=== PATIENT | female | born 1970 | race Caucasian/White ===

== ENCOUNTER 2018-06-29 18:07 | Emergency (ER) | payer OTHER ==
[~2018-06-29] VITALS: Ht 152.4 cm; Wt 112.5 kg
[~2018-06-29 18:07] MED LIST: ALBUTEROL SULF8.5 GM INH; BACTRIM DS TAB1 EACH PO; CEPHALEXIN500 MG PO; HYDROCHLOROTHIA25 MG PO; HYDROXYZINE PAM25 MG PO; LISINOPRIL10 MG PO; NAPROXEN500 MG PO; NORCO 5-325 TA1 EACH PO; OMEPRAZOLE20 MG PO; OXYCODONE HCL5 MG PO; PENICILLIN V P500 MG PO; PERPHENAZINE8 MG; PHENTERMINE HCL30 MG PO; PRILOSEC OTC20 MG PO; SUCRALFATE1 GM PO; TRAZODONE HCL50 MG PO; ZOFRAN4 MG PO
[2018-06-29] MEDS ORDERED: NORCO 5-325 TA1 EACH PO (20:21)
[2018-06-29] MEDS ORDERED: ULTRA-LIGHT RO1 EACH MISC (20:22)
[2018-06-29] MEDS ORDERED: WHEELCHAIR1 EACH MISC (20:23)
== END 2018-06-29 20:45 | disposition home or self-care (01) ==
LOC: ED 18:07
DX: T84.091A Other mechanical complication of internal left hip prosthesis, initial encounter (principal); J45.909 Unspecified asthma, uncomplicated; I10 Essential (primary) hypertension; F32.9 Major depressive disorder, single episode, unspecified; F41.9 Anxiety disorder, unspecified; F17.200 Nicotine dependence, unspecified, uncomplicated; Z88.8 Allergy status to other drugs, medicaments and biological substances; Z79.899 Other long term (current) drug therapy
CPT/HCPCS: 73502; 99283-25

== ENCOUNTER 2018-07-10 16:12 | Emergency (ER) | payer OTHER ==
[~2018-07-10] VITALS: Ht 152.4 cm; Wt 112.5 kg
[~2018-07-10 16:12] MED LIST changes: +ULTRA-LIGHT RO1 EACH MISC; +WHEELCHAIR1 EACH MISC
--- OUTSIDE RECORDS SUMMARY | 2018-07-10 16:14 | XMS ---
PreManage Notification: ASIYA APODACA Security Beater Dumper Events No recent Security Events currently on file CRITERIA MET - [facility] - 2 Visits in 30 Days CARE PROVIDERS There are no care providers on record at this time. Radha has no Care Guidelines for this patient. Rosalind VISIT COUNT (12 MO.) 3 [facility] Ambia H. TOTAL 3 NOTE: Visits indicate total known visits. ED/C VISIT TRACKING (12 MO.) 07/10/2018 16:13 [facility] [place] TYPE: Emergency COMPLAINT: - L HIP PAIN 06/29/2018 18:07 [facility] [place] TYPE: Emergency COMPLAINT: - LEFT HIP PAIN/NON INJURY DIAGNOSES: - Other mechanical complication of internal left hip prosthesis, initial encounter - Nicotine dependence, unspecified, uncomplicated - Essential (primary) hypertension - Other senior care (current) drug therapy - Allergy status to other drugs, medicaments and biological substances status - Unspecified asthma, uncomplicated - Major depressive disorder, single episode, unspecified - Anxiety disorder, unspecified 05/14/2018 19:56 [facility] [place] TYPE: Emergency COMPLAINT: - FALL/R ARM INJURY DIAGNOSES: - Allergy status to other drugs, medicaments and biological substances status - Essential (primary) hypertension - Unspecified sprain of right hip, initial encounter - Sprain of unspecified site of right knee, initial encounter - Unspecified asthma, uncomplicated - Other senior care (current) drug therapy - Anxiety disorder, unspecified - Nicotine dependence, unspecified, uncomplicated - Pain in right elbow - Major depressive disorder, single episode, unspecified - Nondisplaced fracture of head of right radius, initial encounter for closed fracture - Fall (on) (from) unspecified stairs and steps, initial encounter INPATIENT VISIT TRACKING (12 MO.) No inpatient visits to display in this time frame [email or web address]
== END 2018-07-10 18:50 | disposition home or self-care (01) ==
LOC: ED 16:12
DX: M25.552 Pain in left hip (principal); J45.909 Unspecified asthma, uncomplicated; I10 Essential (primary) hypertension; F32.9 Major depressive disorder, single episode, unspecified; F41.9 Anxiety disorder, unspecified; F17.200 Nicotine dependence, unspecified, uncomplicated; Z88.8 Allergy status to other drugs, medicaments and biological substances; Z79.899 Other long term (current) drug therapy; W18.30XA Fall on same level, unspecified, initial encounter
CPT/HCPCS: 73502; 99283

== ENCOUNTER 2018-12-31 13:54 | Emergency (ER) | payer OTHER ==
[~2018-12-31] VITALS: Ht 152.4 cm; Wt 112.5 kg
--- OUTSIDE RECORDS SUMMARY | ~2018-12-31 | XMS | Encounter Summary ---
Demographics + + + | Address | [address] | | | [place] [address] | + + + | Home Phone | | + + + | Preferred Language | Unknown | + + + | Marital Status | | + + + | Tenriism Affiliation | Unknown | + + + | Race | Unknown | + + + | Ethnic Group | Unknown | + + + Author + + + | Author | [facility] | | | and [place] | + + + | Organization | [facility] | | | and [place] | + + + | Address | Unknown | + + + | Phone | Unavailable | + + + Support + + + + + | Name | Relationship | Address | Phone | + + + + + | Fabienne Juarez | ECON | [place] | | | | | [address] | | + + + + + Care Team Providers + +------+ + | Care Blood Bank Booking Clerk Name | Role | Phone | + +------+ + | No, Physician | PCP | Unavailable | + +------+ + Encounter Details +--------+ + + + + | Date | Type | Department | Care Team | Description | +--------+ + + + + | 10/20/ | Orders Only | [facility] | Miah Monique | Pain due to internal | | 2018 | | MD Mayur CHÁVEZ | orthopedic | | | | EJ WOOD | [place] | prosthetic devices, | | | | [phone] | [place] [address] | implants and grafts, | | | | [phone] | [phone] | initial encounter | | | | | | (FORM[facility]LY [facility]) | +--------+ + + + + Social History + +-------+ +--------+------+ | Tobacco Use | Types | Packs/Day | Years | Date | | | | | Used | | + +-------+ +--------+------+ | Current Every Day | | 0.5 | | | | Smoker | | | | | + +-------+ [...] as of this encounter Plan of Treatment + +--------+ + + | Name | Priori | Associated Diagnoses | Order Schedule | | | ty | | | + +--------+ + + | Culture, Body Fluid Sterile | Routin | Pain due to | Expected: | | | e | internal orthopedic | 10/17/2018, Expires: | | | | prosthetic devices, | 10/18/2019 | | | | implants and grafts, | | | | | initial encounter | | | | | (HCC) | | + +--------+ + + | Body fluid cell count | Routin | Pain due to | Expected: | | | e | internal orthopedic | 10/17/2018, Expires: | | | | prosthetic devices, | 10/18/2019 | | | | implants and grafts, | | | | | initial encounter | | | | | (HCC) | | + +--------+ + + | Crystal Identification, Body | Routin | Pain due to | Expected: | | Fluid | e | internal orthopedic | 10/17/2018, Expires: | | | | prosthetic devices, | 10/18/2019 | | | | implants and grafts, | | | | | initial encounter | | | | | (HCC) | | + +--------+ + + documented as of this encounter Visit Diagnoses + + | Diagnosis | + + | Pain due to internal orthopedic prosthetic devices, implants and grafts, initial | | encounter (HCC) | + + documented in this encounter"
--- OUTSIDE RECORDS SUMMARY | ~2018-12-31 | XMS | Encounter Summary ---
Demographics + + + | Address | [address] | | | [place] [address] | + + + | Home Phone | | + + + | Preferred Language | Unknown | + + + | Marital Status | | + + + | Baptist Affiliation | Unknown | + + + | Race | Unknown | + + + | Ethnic Group | Unknown | + + + Author + + + | Author | [facility] | | | and [place] | + + + | Organization | [facility] | | | and [place] | + + + | Address | Unknown | + + + | Phone | Unavailable | + + + Support + + + + + | Name | Relationship | Address | Phone | + + + + + | Fabienne Juarez | ECON | [place] | | | | | [address] | | + + + + + Care Team Providers + +------+ + | Care Central Sterile Tech Name | Role | Phone | + +------+ + | Celestine Watters MD | PCP | | + +------+ + Reason for Visit + + + | Reason | Comments | + + + | Medication Refill | | + + + Encounter Details +--------+ + + + + | Date | Type | Department | Care Team | Description | +--------+ + + + + | 12/27/ | Telephone | [facility] | Miah Monique | Medication Refill | | 2018 | | RADHA [address] MD [address] | | | | | [place], [place] | [place] | | | | | [address] | [place] [address] | | | | | [phone] | [phone] | | | | | | | [...] | | | + +---+---+---+ + + +---------+ + | Alcohol Use | Drinks/We | oz/Week | Comments | | | ek | | | + + +---------+ + | Not Currently | | | | + + +---------+ [...] + + documented as of this encounter Functional Status + + + + | Functional Status | Response | Date of Assessment | + + + + | Are you deaf or do you have serious | No | 11/09/2018 | | difficulty hearing? | | | + + + + | Are you blind or do you have serious | No | 11/09/2018 | | difficulty seeing, even when wearing | | | | glasses? | | | + + + + | Do you have serious difficulty walking or | No | 11/09/2018 | | climbing stairs? (5 years old or older) | | | + + + + | Do you have difficulty dressing or bathing? | No | 11/09/2018 | | (5 years old or older) | | | + + + + | Because of a physical, mental, or emotional | No | 11/09/2018 | | condition, do you have difficulty doing | | | | errands alone such as visiting a doctor's | | | | office or shopping? [15 years old or | | | | older)] | | | + + + + + + + + | Cognitive Status | Response | Date of Assessment | + + + + | Because of a physical, mental, or emotional | No | 11/09/2018 | | condition, do you have serious difficulty | | | | concentrating, remembering, or making | | | | decisions? (5 years old or older) | | | + + + + documented as of this encounter Plan of Treatment Not on filedocumented as of this encounter Visit Diagnoses Not on filedocumented in this encounter"
--- OUTSIDE RECORDS SUMMARY | ~2018-12-31 | XMS | Encounter Summary ---
Demographics + + + | Address | [address] | | | [place] [address] | + + + | Home Phone | | + + + | Preferred Language | Unknown | + + + | Marital Status | | + + + | Rastafari Affiliation | Unknown | + + + | Race | Unknown | + + + | Ethnic Group | Unknown | + + + Author + + + | Author | [facility] | | | and [place] | + + + | Organization | [facility] | | | and [place] | + + + | Address | Unknown | + + + | Phone | Unavailable | + + + Support + + + + + | Name | Relationship | Address | Phone | + + + + + | Fabienne Juarez | ECON | [place] | | | | | [address] | | + + + + + Care Team Providers + +------+ + | Care Taxation Agent Name | Role | Phone | + +------+ + | No, Physician | PCP | Unavailable | + +------+ + Encounter Details +--------+ + + + + | Date | Type | Department | Care Team | Description | +--------+ + + + + | 10/18/ | Orders Only | [facility] | Miah Monique | | | 2018 | | [facility] | MD Fab [address] | | | | | [address]PER[address] | [place] | | | | | [address] | [place] [address] | | | | | [place], [place] | [phone] | | | | | [address] | | | | | | [phone] | | | +--------+ + + + [...] | + +--------+ + + + | CELL COUNT, BODY | Routin | 10/18/2018 | | Results for this | | FLUID | e | 15:19 PDT | | procedure are in the | | | | | | results section. | + +--------+ + + + | CRYSTAL | Routin | 10/18/2018 | | Results for this | | IDENTIFICATION, BODY | e | 15:19 PDT | | procedure are in the | | FLUID | | | | results section. | + +--------+ + + + | CULTURE, BODY FLUID, | Routin | 10/18/2018 | | Results for this | | STERILE, SMEAR, | e | 15:19 PDT | | procedure are in the | | WITH ANAEROBES | | | | results section. | + +--------+ + + + documented in this encounter Results Crystal Identification, Body Fluid (10/18/2018 15:19 PDT) + + | Specimen | + + | | + + + + + | Narrative | Performed At | + + + | FLUID CRYSTALS NO CRYSTALS | EXTERNAL LAB | | SEEN Testing performed at [facility];[address] [place] [address];[place] [address] | | + + + + +---------+ + + | Performing | Address | City/State/Zipcode | Phone Number | | Organization | | | | + +---------+ + + | EXTERNAL LAB | | | | + +---------+ + + Culture, Body Fluid, Sterile, Smear, with Anaerobes (10/18/2018 15:19 PDT) + + | Specimen | + + | | + + + + + | Narrative | Performed At | + + + | Specimen Description SYNOVIAL FLUID | EXTERNAL LAB | | GRAM STAIN NO CELLS OR | | | ORGANISMS SEEN | | | CULTURE NO | | | GROWTH 4 DAYS | | + + + + +---------+ + + | Performing | Address | City/State/Zipcode | Phone Number | | Organization | | | | + +---------+ + + | EXTERNAL LAB | | | | + +---------+ + + Cell Count, Body Fluid (10/18/2018 15:19 PDT) + + | Specimen | + + | | + + + + + | Narrative | Performed At | + + + | FLUID TYPE SYNOVIAL | EXTERNAL LAB | | FLUID | | | [facility] | | | | | | APPEARANCE | | | CLOUDY | | | RBC'S [address] | | | TOTAL NUCLEATED | | | CELLS 29 | | | NEUTROPHILS 83 | | | | | | LYMPHOCYTES 14 | | | | | | EOSINOPHILS 3 | | | CELLS | | | COUNTED 100 | | | Testing performed at [facility];[address] [place] [address];[place] [address] | | + + + + +---------+ + + | Performing | Address | City/State/Zipcode | Phone Number | | Organization | | | | + +---------+ + + | EXTERNAL LAB | | | | + +---------+ + + documented in this encounter Visit Diagnoses Not on filedocumented in this encounter"
--- OUTSIDE RECORDS SUMMARY | ~2018-12-31 | XMS | Encounter Summary ---
Demographics + + + | Address | [address] | | | [place] [address] | + + + | Home Phone | | + + + | Preferred Language | Unknown | + + + | Marital Status | | + + + | Jainism Affiliation | Unknown | + + + | Race | Unknown | + + + | Ethnic Group | Unknown | + + + Author + + + | Author | [facility] (Historical as of | | | 10-21-18) | + + + | Organization | [facility] (Historical as of | | | 10-21-18) | + + + | Address | Unknown | + + + | Phone | Unavailable | + + + Support + + + + + | Name | Relationship | Address | Phone | + + + + + | Fabienne Juarez | ECON | [place] | | | | | [address] | | + + + + + Care Team Providers + +------+ + | Care Barrel Rifler Broach Name | Role | Phone | + +------+ + | None, Per Pt | PCP | [id number] | + +------+ + Reason for Referral Physical Medicine (Routine) + + + + + + + | Status | Reason | Specialty | Diagnoses / | Referred By | Referred To | | | | | Procedures | Contact | Contact | + + + + + + + | Authorized | Specialty | Physical | Diagnoses | Moreno, | Therapy, | | | Services | Therapy | Pain in | [place], | [place] | | | Required | | prosthetic | PA-C [address] | | | | | joint, | [address] | Physical | | | | | initial | [place] | [address] | | | | | encounter | [place], [place] | [address] | | | | | ([facility]) | [address] | [place], | | | | | | Phone: | [place] [address] | | | | | | [phone] | Phone: | | | | | | Fax: | [phone] | | | | | | [phone] | Fax: | | | | | | | [phone] | + + + + + + + Reason for Visit + + + | Reason | Comments | + + + | Hip Pain | left hip | + + + Surgical (Routine) + +--------+ + + + + | Status | Reason | Specialty | Diagnoses / | Referred By | Referred To | | | | | Procedures | Contact | Contact | + +--------+ + + + + | Authorized | | Orthopedic | Diagnoses | Self, | [facility] | | | | Surgery | revision | Referred | [place] [address] | | | | | left TKA @ | Phone: | Alexander Bell | | | | | [facility] | [phone] | EJ Jarquin | | | | | 10/19/2018 | Fax: | [phone] | | | | | Procedures | [phone] | Phone: | | | | | ORTHO PRE OP | | [phone] | | | | | | | Fax: | | | | | | | [phone] | + +--------+ + + + + Encounter Details +--------+---------+ + + + | Date | Type | Department | Care Team | Description | +--------+---------+ + + + | 10/04/ | Office | [facility] | Emilio Moreno, | Pain in prosthetic | | 2019 | Visit | [facility]THO [facility] | PA-C [address] | joint, initial | | | | [facility]IC[facility] | [place] [facility], | encounter (HCC) | | | | [address] | [place] [address] | (Primary Dx) | | | | [place] | [phone] | | | | | [address] | | | | | | [phone] | | | +--------+---------+ + + + Social History + +-------+ +--------+------+ | Tobacco Use | Types | Packs/Day | Years | Date | | | | | Used | | + +-------+ +--------+------+ | Former Smoker | | | | | + [...] on file | | + + + as of this encounter Last Filed Vital Signs + + + + | Vital Sign | Reading | Time Taken | + + + + | Blood Pressure | 112/82 | 10/04/2018 9:13 AM PDT | + + + + | Pulse | 72 | 10/04/2018 9:13 AM PDT | + + + + | Temperature | - | - | + + + + | Respiratory Rate | - | - | + + + + | Oxygen Saturation | 98% | 10/04/2018 9:13 AM PDT | + + + + | Inhaled Oxygen | - | - | | Concentration | | | + + + + | Weight | 120 kg (264 lb 9.6 | 10/04/2018 9:13 AM PDT | | | oz) | | + + + + | Height | 154.9 cm (5' 1") | 10/04/2018 9:13 AM PDT | + + + + | Body Mass Index | 50 | 10/04/2018 9:13 AM PDT | + + + + in this encounter Progress Notes Emilio Moreno PA-C - 10/04/2018 9:30 AM PDTFormatting of this note may be different from the original. 10/04/2018 HPI The patient presents for a pre-operative evaluation prior to a left total hip arthroplasty revision. She continues to have disabling left hip pain on a daily basis that has been refr actory to conservative measures. Vital Signs Vitals: 10/04/18 0913 BP: 112/82 Pulse: 72 SpO2: 98% History reviewed. No pertinent past medical history. Past Surgical History Procedure Laterality Date CHOLECYSTECTOMY HIP ARTHROPLASTY Right 2012 TOTAL HIP ARTHROPLASTY Left 2014 Family History Problem Relation Age of Onset Stroke Mother Heart disease Father Cancer Father Social History Occupational History Not on file. Social History Main Topics Smoking status: Former Smoker Smokeless tobacco: Never Used Alcohol use No Drug use: No Sexual activity: No Current Medications Current Outpatient Prescriptions: acetaminophen (TYLENOL) 500 MG tablet, Take 2 tablets by mouth every 8 (eight) hours f or 30 days., Disp: 180 tablet, Rfl: 0 aspirin 325 MG tablet, Take 1 tablet by mouth daily with breakfast for 42 days., Disp: 42 tablet, Rfl: 0 citalopram (CELEXA) 40 MG tablet, Take 40 mg by mouth daily., Disp: , Rfl: cloNIDine (CATAPRES) 0.1 MG tablet, Take 0.1 mg by mouth 2 (two) times daily., Disp: , Rfl: docusate sodium (COLACE) 250 MG capsule, Take 1 capsule by mouth 2 (two) times daily f or 30 days., Disp: 60 capsule, Rfl: 0 HYDROcodone-acetaminophen (NORCO) 5-325 MG per tablet, Take 1 tablet by mouth every 12 (twelve) hours as needed for Pain., Disp: 30 tablet, Rfl: 0 hydrOXYzine (ATARAX) 10 MG tablet, Take 10 mg by mouth 3 (three) times daily as needed for Itching., Disp: , Rfl: naproxen (NAPROSYN) 500 MG tablet, Take 500 mg by mouth 2 (two) times daily with meals ., Disp: , Rfl: oxyCODONE (ROXICODONE) 5 MG immediate release tablet, Take 1 tablet by mouth every 4 ( four) hours as needed for Pain for up to 14 days., Disp: 90 tablet, Rfl: 0 traMADol (ULTRAM) 50 MG tablet, Take 1 tablet by mouth every 6 (six) hours as needed f or Pain for up to 14 days., Disp: 90 tablet, Rfl: 0 UNABLE TO FIND, Disabled parking placard, Disp: 1 each, Rfl: 0 Allergies No Known Allergies Active comorbid conditions include: - morbid (BMI 40+) obesity - a smoker - anxiety Patient is negative for: GERD, hepatitis, cirrhosis, diabetes, hypothyroidism, bleeding disorder Review of Systems Constitutional: Negative for chills and fever. HENT: Negative for ear pain and hearing loss. Eyes: Negative for blurred vision and double vision. Respiratory: Negative for cough and wheezing. Cardiovascular: Negative for chest pain and palpitations. Gastrointestinal: Negative for heartburn, nausea and vomiting. Genitourinary: Negative. Musculoskeletal: Positive for joint pain. Negative for back pain and neck pain. Skin: Negative for itching and rash. Neurological: Negative for dizziness and headaches. Endo/Heme/Allergies: Does not bruise/bleed easily. Psychiatric/Behavioral: The patient is nervous/anxious. The patient does not have insomnia. Physical Exam Left Hip Exam Tenderness The patient is experiencing tenderness in the lateral. Muscle Strength Normal left hip strength Comments: Mechanical clunking and squeaking is noted with range of motion. Leg lengths are symmetric. Well-healed surgical incisions which include one primary incision and one distal-portal i ncision consistent with a superpath procedure. Physical Exam Constitutional: She is oriented to person, place, and time. She appears well-developed and well-nourished. HENT: Head: Normocephalic and atraumatic. Eyes: Pupils are equal, round, and reactive to light. EOM are normal. Pulmonary/Chest: Effort normal. Neurological: She is alert and oriented to person, place, and time. Skin: Skin is warm and dry. Psychiatric: She has a normal mood and affect. Her behavior is normal. Thought content herbert alPrince Assessment and Plan ICD-10-CM 1. Pain in prosthetic joint, initial encounter ([facility]) T84.84XA Ambulatory referral to Physic al Therapy, Eval and Treat plan to proceed with a left total hip arthroplasty revision The risks and benefits of hip arthroplasty and expected recovery period and outcomes after hip arthroplasty were discussed with the patient. The risk discussed included infection, dis location, damage to nerves and blood vessels, bleeding, continued pain, fracture, early loos ening of components, polyethylene wear, osteolysis, potential need for revision surgery, DVT , pulmonary embolism, stroke, myocardial infarction and . Alternatives to surgery were also discussed with the patient. All of the patients questions were answered and informed co nsent was obtained. Pre-operative Checklist Visited primary care in last 12 months?:NO Under the care of a radiologic technologist chief?:No Diabetes Optimization?:N/A No results found for: HGBA1C, LABGLYC History of MRSA/MSSA infection?:No Metal sensitivity or allergy?:No Intolerance to certain specific opiate?:No DVT/PE Risk Stratification Personal history of DVT/PE?:No Cancer treatment in the last 5 years?:No Hormone replacement therapy?:No Tolerate aspirin?:YES Current Anticoagulation?:No Chemical prophylaxis plan:ASA Anticipated Discharge Plan Discharge to rehab facility, [facility] physical therapy Armin Return for 2 and 6 weeks after surgery. There are no Patient Instructions on file for this visit. Colt Reyna this encounter Plan of Treatment + +--------+ + + | Name | Priori | Associated Diagnoses | Order Schedule | | | ty | | | + +--------+ + + | Ambulatory referral to Physical | Routin | Pain in prosthetic | Ordered: 10/04/2018 | | Therapy, Eval and Treat | e | joint, initial | | | | | encounter (HCC) | | + +--------+ + + as of this encounter Visit Diagnoses + + | Diagnosis | + + | Pain in prosthetic joint, initial encounter (HCC) - Primary | + +
--- OUTSIDE RECORDS SUMMARY | ~2018-12-31 | XMS | Encounter Summary ---
Demographics + + + | Address | [address] | | | [place] [address] | + + + | Home Phone | | + + + | Preferred Language | Unknown | + + + | Marital Status | | + + + | Cheondoism Affiliation | Unknown | + + + | Race | Unknown | + + + | Ethnic Group | Unknown | + + + Author + + + | Author | [facility] | | | and [place] | + + + | Organization | [facility] | | | and [place] | + + + | Address | Unknown | + + + | Phone | Unavailable | + + + Support + + + + + | Name | Relationship | Address | Phone | + + + + + | Fabienne Juarez | ECON | [place] | | | | | [address] | | + + + + + Care Team Providers + +------+ + | Care Production Bow Maker Name | Role | Phone | + +------+ + | Celestine Watters MD | PCP | | + +------+ + Reason for Visit + + + | Reason | Comments | + + + | Medication Refill | | + + + Encounter Details +--------+--------+ + + + | Date | Type | Department | Care Team | Description | +--------+--------+ + + + | 11/27/ | Refill | [facility] | Miah Monique | Medication Refill | | 2018 | | [address] | MD [address] | | | | | [place], [place] | [address] | | | | | [address] | [place] [address] | | | | | [phone] | [phone] | | | | | | | | +--------+--------+ + + + Social History + +-------+ [...] filedocumented as of this encounter Visit Diagnoses + + | Diagnosis | + + | Aftercare following hip joint replacement surgery, unspecified laterality - Primary | + + documented in this encounter"
--- OUTSIDE RECORDS SUMMARY | ~2018-12-31 | XMS | Encounter Summary ---
Demographics + + + | Address | [address] | | | [place] [address] | + + + | Home Phone | | + + + | Preferred Language | Unknown | + + + | Marital Status | | + + + | Jainism Affiliation | Unknown | + + + | Race | Unknown | + + + | Ethnic Group | Unknown | + + + Author + + + | Author | [facility] | | | and [place] | + + + | Organization | [facility] | | | and [place] | + + + | Address | Unknown | + + + | Phone | Unavailable | + + + Support + + + + + | Name | Relationship | Address | Phone | + + + + + | Fabienne Juarez | ECON | [place] | | | | | [address] | | + + + + + Care Team Providers + +------+ + | Care Pressure Testing Technician Name | Role | Phone | + +------+ + | Celestine Watters MD | PCP | | + +------+ + Reason for Visit + + + | Reason | Comments | + + + | Post-op Exam | left hip | + + + Evaluate & Treat (Routine) +--------+--------+ + + + + | Status | Reason | Specialty | Diagnoses / | Referred By | Referred To | | | | | Procedures | Contact | Contact | +--------+--------+ + + + + | Closed | | | Diagnoses | Tiffanie, | [facility] | | | | | Left Hip | Shola Sanchez MD | [address] | | | | | Nondisplaced | [address] | [address] | | | | | Fracture of | ([address] | [place], [place] | | | | | Artificial | [address]) | [address] | | | | | Hip Joint | [place], | Phone: | | | | | | [place] [address] | [phone] | | | | | | Phone: | Fax: | | | | | | [phone] | [phone] | | | | | | Fax: | | | | | | | [phone] | | +--------+--------+ + + + + Encounter Details +--------+---------+ + + + | Date | Type | Department | Care Team | Description | +--------+---------+ + + + | 12/11/ | Office | [facility] | Miah Monique | Status post left hip | | 2019 | Visit | [address] [address] | MD [address] | replacement | | | | [place], [place] | [address] | (Primary Dx) | | | | [address] | [place] [address] | | | | | [phone] | [phone] | | | | | | | | +--------+---------+ + + + [...] + + documented as of this encounter Last Filed Vital Signs + + + + | Vital Sign | Reading | Time Taken | + + + + | Blood Pressure | 116/76 | 12/11/20187 PDT | + + + + | Pulse | 93 | 12/11/20187 PDT | + + + + | Temperature | - | - | + + + + | Respiratory Rate | - | - | + + + + | Oxygen Saturation | 95% | 12/11/20181546 PDT | + + + + | Inhaled Oxygen | - | - | | Concentration | | | + + + + | Weight | 119.2 kg (262 lb | 12/11/20181546 PDT | | | 12.8 oz) | | + + + + | Height | 152.4 cm (5') | 12/11/20181546 PDT | + + + + | Body Mass Index | 51.32 | 12/11/20181546 PDT | + + + + documented in this encounter Functional Status + + + [...] + + documented as of this encounter Progress Notes Miah Monique MD - 12/11/2018 1515 PDT 12/11/2018 HPI HPI A 48-year-old female who is about 6 weeks out from a 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 The patient overall has been doing well. She has been taking ext ended- release Morphine twice a day and Oxycodone every 4 hours 5 mg tablets. She continues to have pain mostly posteriorly. She denies groin pain or lateral pain. She denies issues wi th drainage from the incision. She reports that she has been compliant with her weight beari ng precautions and her hip precautions. She has now begun physical therapy given these preca utions. Vital Signs Vitals: 12/11/18 1547 BP: 116/76 Pulse: 93 PainSc: 8 PainLoc: Hip Physical Exam Ortho Exam Left Hip Exam Well healed surgical incision, left hip. Range of Motion: No pain with range of motion of the hip. She has tenderness posteriorly ne ar the apex of the incision but no induration, erythema, or drainage or swelling. 07/09 IMAGING: No results found for this or any previous visit (from the past 72 hour(s)). Assessment and Plan ICD-10-CM ICD-9-CM 1. Status post left hip replacement Z96.642 V43.64 XR Hip Left 2-3 Views Overall doing well and as expected with a acetabular component revision. She may now weight bear as tolerated. She can begin physical therapy I discussed at length with her, her narco tic usage, which I think is probably excessive at this point. I spoke to her about a plan t o get off the medications within 6 weeks, so I gave her 5 mg Oxycodones, and I gave her 60 t ablets which she needs to make work for at least 2 weeks and she needs to be using those in decreasing the amounts, so I instructed her when it would be appropriate times for her to us e her pain medication. If after these 2 weeks, she needs an additional refill, I have agreed to provide her with another 40 mg tablets which she needs to make last for the additional 4 weeks, so that overall the maximum dose of narcotics I will give her is 5 mg Oxycodones 100 tablets which will include 60 tablets on prescription today and potentially 40 more tablets if she needs it after the 2 weeks. She commits to me that she will be off the narcotics wit hin 6 weeks and I told her that if she is not able to do so, I would have to refer her to pa in management for continued narcotic use. I would like to see her back in about 3 months wi th the repeat x-rays. Documented by Wendy. Return in about 3 months (around 03/13/2019).Electronically signed by MD moshe Vickers 12/12/2018 15:54 PDTdocumented in this encounter Plan of Treatment Not on filedocumented as of this encounter Results XR Hip Left 2-3 Views (12/11/2018 15:59 PDT) + + | Specimen | + + | | + + + + + | Narrative | Performed At | + + + | Radiographs of | [facility] | | the left hip show interval revision of the acetabular component with | | | no evidence of acute loosening or fracture or dislocation. | | | Electronically signed by: Miah Monique MD 12/19/2018 14:24 | | | | | + + + + +---------+ + + | Performing | Address | City/State/Zipcode | Phone Number | | Organization | | | | + +---------+ + + | [facility] | | | | + +---------+ + + documented in this encounter Visit Diagnoses + + | Diagnosis | + + | Status post left hip replacement - Primary Hip joint replacement by other means | + + documented in this encounter"
--- OUTSIDE RECORDS SUMMARY | ~2018-12-31 | XMS | Encounter Summary ---
Demographics + + + | Address | [address] | | | [place] [address] | + + + | Home Phone | | + + + | Preferred Language | Unknown | + + + | Marital Status | | + + + | Church Affiliation | Unknown | + + + | Race | Unknown | + + + | Ethnic Group | Unknown | + + + Author + + + | Author | [facility] | | | and [place] | + + + | Organization | [facility] | | | and [place] | + + + | Address | Unknown | + + + | Phone | Unavailable | + + + Support + + + + + | Name | Relationship | Address | Phone | + + + + + | Fabienne Juarez | ECON | [place] | | | | | [address] | | + + + + + Care Team Providers + +------+ + | Care Machine Sizer Name | Role | Phone | + +------+ + | Celestine Watters MD | PCP | | + +------+ + Encounter Details +--------+ + + + + | Date | Type | Department | Care Team | Description | +--------+ + + + + | 10/18/ | Orders Only | [facility] | Miah Monique | | | 2019 | | MD [address] | | | | | [address] | [address] | | | | | [address] | [place] [address] | | | | | [phone] | | | | | | | [...] | + +--------+ + + + | FL ASPIRATION | Routin | 10/18/2018 | | Results for this | | INJECTION MAJOR | e | 14:45 PDT | | procedure are in the | | JOINT LEFT | | | | results section. | + +--------+ + + + documented in this encounter Results FL Asp and/or Inj Major Joint Left (10/18/2018 14:45 PDT) + + | Specimen | + + | | + + + + + | Impressions | Performed At | + + + | Technically successful placement of needles into the left hip joint. | | | No fluid was aspirated initially. Therefore, sterile saline was | | | placed into the hip joint, with aspiration performed. Fluid sent | | | to pathology for further evaluation. Signed by: Korina Beaver Sean | | | Sign Date/Time: 10/18/2018 3:17 PM | | + + + + + + | Narrative | Performed At | + + + | FLUOROSCOPICALLY GUIDED INJECTION OF THE LEFT HIP FOR MR | | | ARTHROGRAPHY CLINICAL INFORMATION: Painful left total hip | | | replacement with elevated ESR and CRP. Please obtain fluid to | | | evaluate for infection prior to revision surgery. Please use large | | | gauge needle such as an 18-gauge to maximize chances of obtaining | | | fluid. Please do not inject Omnipaque or any other fluid into the | | | joint prior to obtaining fluid. If no fluid is able to be easily | | | obtained then fluid may be injected if indicated, make a note that no | | | fluid was able to be aspirated... Please send for cell count, | | | culture, crystals. If the fluid amount is limited please prioritize | | | cell count and culture. COMPARISON: CT PELVIS WO CONTRAST | | | (09/19/2018); XR HIP 2 VIEW LEFT (09/11/2018); PROCEDURE: The | | | procedure, alternatives, risks (including infection and bleeding), | | | and benefits were discussed with the patient and all questions were | | | answered. The skin overlying the left hip joint was marked an | | | initialed prior to the procedure. Written informed consent was | | | obtained. A time a was performed. The skin overlying the left hip | | | was prepped and draped in conventional sterile fashion. Superficial | | | and deep soft tissues were anesthetized with 1% lidocaine. Serial | | | placements of 6 inch 22 gauge and 18 gauge needles into the left hip | | | joint were done, advanced under fluoroscopic guidance. Aspiration | | | with both needles was attempted, with no fluid returned. Injection | | | of 2ml of sterile saline with a 22 gauge needle was done into the | | | left hip joint, with aspiration of 1 mL fluid returned, relatively | | | clear in appearance. Injection of 4 mL of sterile saline into the | | | left hip joint with 18 gauge needle was then done, with aspiration of | | | 3 mL blood-tinged fluid. The needle was removed, and the skin | | | cleansed. A small bandage was placed over the puncture site. FLUORO | | | TIME: 1.8 minute(s) The total number of images: 1 | | + + + + + | Procedure Note | + + | Tony Kelly Conversion - 12/14/2018 1550 PDT FLUOROSCOPICALLY GUIDED INJECTION OF THE | | LEFT HIP FOR MR ARTHROGRAPHYCLINICAL INFORMATION:Painful left total hip replacement with | | elevated ESR and CRP. Pleaseobtain fluid to evaluate for infection prior to revision | | surgery.Please use large gauge needle such as an 18-gauge to maximize chancesof | | obtaining fluid. Please do not inject Omnipaque or any other fluidinto the joint prior | | to obtaining fluid. If no fluid is able to beeasily obtained then fluid may be injected | | if indicated, make a notethat no fluid was able to be aspirated... Please send for cell | | count,culture, crystals. If the fluid amount is limited please prioritizecell count and | | culture.COMPARISON:CT PELVIS WO CONTRAST (09/19/2018); XR HIP 2 VIEW LEFT | | (09/11/2018);PROCEDURE:The procedure, alternatives, risks (including infection and | | bleeding),and benefits were discussed with the patient and all questions wereanswered. | | The skin overlying the left hip joint was marked aninitialed prior to the procedure. | | Written informed consent wasobtained. A time a was performed.The skin overlying the | | left hip was prepped and draped in conventionalsterile fashion. Superficial and deep | | soft tissues were anesthetizedwith 1% lidocaine. Serial placements of 6 inch 22 gauge | | and 18 gaugeneedles into the left hip joint were done, advanced under | | fluoroscopicguidance. Aspiration with both needles was attempted, with no | | fluidreturned. Injection of 2ml of sterile saline with a 22 gauge needlewas done into | | the left hip joint, with aspiration of 1 mL fluidreturned, relatively clear in | | appearance. Injection of 4 mL of sterilesaline into the left hip joint with 18 gauge | | needle was then done, withaspiration of 3 mL blood-tinged fluid.The needle was removed, | | and the skin cleansed. A small bandage wasplaced over the puncture site.FLUORO TIME:1.8 | | minute(s) The total number of images: 1IMPRESSION: Technically successful placement of | | needles into the left hip joint.No fluid was aspirated initially. Therefore, sterile | | saline was placedinto the hip joint, with aspiration performed. Fluid sent to | | pathologyfor further evaluation.Signed by: Korina Beaver SeanSign Date/Time: | | 10/18/2018 3:17 PM | |saline into the left hip joint with 18 gauge needle was then done, with | |aspiration of 3 mL blood-tinged fluid. | |The needle was removed, and the skin cleansed. A small bandage was | |placed over the puncture site. | |FLUORO TIME: | |1.8 minute(s) The total number of images: 1 | |IMPRESSION: | |Technically successful placement of needles into the left hip joint. | |No fluid was aspirated initially. Therefore, sterile saline was placed | |into the hip joint, with aspiration performed. Fluid sent to pathology | |for further evaluation. | |Signed by: Korina Beaver Sean | |Sign Date/Time: 10/18/2018 3:17 PM | + + documented in this encounter Visit Diagnoses Not on filedocumented in this encounter"
--- OUTSIDE RECORDS SUMMARY | ~2018-12-31 | XMS | Encounter Summary ---
Demographics + + + | Address | [address] | | | [place] [address] | + + + | Home Phone | | + + + | Preferred Language | Unknown | + + + | Marital Status | | + + + | Mu-Ism Affiliation | Unknown | + + + | Race | Unknown | + + + | Ethnic Group | Unknown | + + + Author + + + | Author | [facility] | | | and [place] | + + + | Organization | [facility] | | | and [place] | + + + | Address | Unknown | + + + | Phone | Unavailable | + + + Support + + + + + | Name | Relationship | Address | Phone | + + + + + | Fabienne Juarez | ECON | [place] | | | | | [address] | | + + + + + Care Team Providers + +------+ + | Care Hand Folder Name | Role | Phone | + +------+ + | Celestine Watters MD | PCP | | + +------+ + Encounter Details +--------+ + + + + | Date | Type | Department | Care Team | Description | +--------+ + + + + | 11/24/ | Telephone | [facility] | Miah Monique | | | 2018 | | MD [address] | | | | | [address] | [address] | | | | | [address] | [place] [address] | | | | | [phone] | [phone] | | | | | | | [...]
--- OUTSIDE RECORDS SUMMARY | ~2018-12-31 | XMS | Clinical Summary ---
Demographics + + + | Address | [address] | | | [place] [address] | + + + | Home Phone | | + + + | Preferred Language | Unknown | + + + | Marital Status | | + + + | Gnosticism Affiliation | Unknown | + + + | Race | Unknown | + + + | Ethnic Group | Unknown | + + + Author + + + | Author | [facility] | | | and [place] | + + + | Organization | [facility] | | | and [place] | + + + | Address | Unknown | + + + | Phone | Unavailable | + + + Support + + + + + | Name | Relationship | Address | Phone | + + + + + | Fabienne Juarez | ECON | [place] | | | | | [phone] | | + + + + + Care Team Providers + +------+ + | Care Airline Counter Agent Name | Role | Phone | [...] | | + + + +---------+------+------+-------+ | gabapentin | Take 1 capsule by | 90 | 3 | 10/0 | 02/0 | Activ | | (NEURONTIN) 400 mg | mouth 3 times daily | capsule | | 7/20 | 4/20 | e | | capsule | for 120 days. | | | 19 | 20 | | + + + +---------+------+------+-------+ | oxyCODONE | Take 1 tablet by | 40 | 0 | 10/2 | 11/0 | Activ | | (ROXICODONE) 5 mg | mouth every 8 hours | tablet | | 3/20 | 6/20 | e | | tablet | as needed for Pain | | | 19 | 19 | | | | for up to 14 days. | | | | | | + + + +---------+------+------+-------+ | traMADol (ULTRAM) | Take 1 tablet by | 40 | 0 | 08/2 | 10/0 | Disco | | 50 mg tablet | mouth EVERY 4 TO 6 | tablet | | 3/20 | 7/20 | ntinu | | | HOURS NEEDED. | | | 19 | 19 | ed | + + + +---------+------+------+-------+ | aspirin 325 mg | Take 1 tablet by | 42 | 0 | 09/1 | 10/0 | Disco | | tablet | mouth daily (with | tablet | | 0/20 | 7/20 | ntinu | | | breakfast) for 42 | | | 19 | 19 | ed | | | days. | | | | | | + + + +---------+------+------+-------+ | gabapentin | Take 2 capsules by | 90 | 2 | 09/1 | 10/0 | Disco | | (NEURONTIN) 100 mg | mouth 3 times daily. | capsule | | 0/20 | 7/20 | ntinu | | capsule | | | | 19 | 19 | ed | + + + +---------+------+------+-------+ | OLANZapine | Take 1 tablet by | 60 | 0 | 09/1 | 10/1 | Expir | | (ZYPREXA) 5 mg | mouth 2 times daily | tablet | | 0/20 | 0/20 | ed | | tablet | for 30 days. | | | 19 | 19 | | + + + +---------+------+------+-------+ | predniSONE | Take 40 mg daily, | 40 | 0 | 09/1 | 10/0 | Disco | | (DELTASONE) 10 mg | decrease by 10 mg | tablet | | 0/20 | 7/20 | ntinu | | tablet | every 4 days until | | | 19 | 19 | ed | | | out | | | | | | + + + +---------+------+------+-------+ | senna (SENOKOT) | Take 1 tablet by | 30 | 0 | 09/1 | 10/1 | Expir | | 8.6 mg tablet | mouth nightly for 30 | tablet | | 0/20 | 0/20 | ed | | | days. | | | 19 | 19 | | + + + +---------+------+------+-------+ | morphine (MS | Take 1 tablet by | 24 | 0 | 09/2 | 10/0 | Disco | | CONTIN) 15 mg ER | mouth every 12 | tablet | | 0/20 | 7/20 | ntinu | | tablet | hours. | | | 19 | 19 | ed | + + + +---------+------+------+-------+ | oxyCODONE (OXY-IR) | Take 1 capsule by | 40 | 0 | 09/2 | 10/0 | Disco | | 5 MG | mouth every 4 hours | capsule | | 3/20 | 7/20 | ntinu | | capsuleIndications: | as needed for Pain. | | | 19 | 19 | ed | | Aftercare following | | | | | | | | hip joint | | | | | | | | replacement surgery, | | | | | | | | unspecified | | | | | | | | laterality | | | | | | | + + + +---------+------+------+-------+ | oxyCODONE | Take 1 tablet by | 60 | 0 | 10/0 | 10/2 | Expir | | (ROXICODONE) 5 mg | mouth every 4 hours | tablet | | 7/20 | 1/20 | ed | | tablet | as needed for Pain | | | 19 | 19 | | | | for up to 14 days. | | | | | | + [...] Overview: Added automatically from request for surgery [id number] | + + + + + | Mechanical instability of hip prosthesis | 09/11/2018 | + + + + + | Overview: Added automatically from request for surgery [id number] | + + Encounters +--------+ + + + + | Date | Type | Specialty | Care Team | Description | +--------+ + + + + | 12/28/ | Refill | Orthopedic Surgery | Miah Monique | Medication Refill | | 2018 | | | MD Fab | | +--------+ + + + + | 12/27/ | Telephone | Orthopedic Surgery | Miah Monique | Medication Refill | | 2018 | | | MD Fab | | +--------+ + + + + | 12/26/ | Telephone | Orthopedic Surgery | Miah Monique | Other ([facility] | 2018 | | | MD Fab | REQUEST) | +--------+ + + + + | 12/11/ | Hospital | Radiology | Miah Monique | Status post left hip | | 2018 | Encounter | | MD Fab | replacement | +--------+ + + + + | 12/11/ | Office | Orthopedic Surgery | Miah Monique | Status post left hip | | 2018 | Visit | | MD Fab | replacement | | | | | | (Primary Dx) | +--------+ + + + + | 11/29/ | Telephone | Orthopedic Surgery | Miah Monique | | | 2018 | | | MD Fab | | +--------+ + + + + | 11/27/ | Refill | Orthopedic Surgery | Miah Monique | Medication Refill | | 2018 | | | MD Fab | | +--------+ + + + + | 11/24/ | Telephone | Orthopedic Surgery | Miah Monique | | 2018 | | | MD Fab | | +--------+ + + + + | 11/23/ | Telephone | Orthopedic Surgery | Miah Monique | Medication Refill; | | 2018 | | | MD Fab | Medication Refill | +--------+ + + + + | 11/16/ | Telephone | Orthopedic Surgery | Miah Monique | | | 2018 | | | MD Fab | | +--------+ + + + + | 11/14/ | Telephone | Orthopedic Surgery | Miah Monique | Medication Problem | | 2018 | | | MD Fab | | +--------+ + + + + | 10/24/ | Anesthesia | | Griselda Brush | | | 2019 | Event | | JIM Matos | | +--------+ + + + + | 10/24/ | Surgery | | Miah Monique | ARTHROPLASTY | | 2019 | | | MD Fab | REVISION TOTAL HIP | +--------+ + + + + | 10/24/ | Hospital | Internal Medicine | Miah Monique | Morbid obesity (HCC) | | 2019 - | Encounter | | MD Fab | (Primary Dx); Pain | | | | | | in prosthetic joint, | | 11/09/ | | | | initial encounter | | 2018 | | | | ([facility]); Mechanical | | | | | | complication of | | | | | | prosthetic knee | | | | | | implant, initial | | | | | | encounter ([facility]); | | | | | | Mechanical | | | | | | instability of hip | | | | | | prosthesis ([facility]); | | | | | | Shortness of breath; | | | | | | Acute respiratory | | | | | | failure with hypoxia | | | | | | ([facility]) | +--------+ + + + + | 10/20/ | Orders Only | Orthopedic Surgery | Miah Monique | Pain due to internal | | 2019 | | | MD Fab | orthopedic | | | | | | prosthetic devices, | | | | | | implants and grafts, | | | | | | initial encounter | | | | | | ([facility]) | +--------+ + + + + | 10/18/ | Hospital | Radiology | Conversion | | | 2019 | Encounter | | Transaction, | | | | | | Provider Unknown | | +--------+ + + + + | 10/18/ | Orders Only | Orthopedic Surgery | Miah Monique | | | 2019 | | | MD Fab | | +--------+ + + + + | 10/18/ | Orders Only | | Miah Monique | | | 2018 | | | MD Fab | | +--------+ + + + + | 10/06/ | Hospital | Pre-Admission | Conversion | | | 2019 | Encounter | Testing | Transaction, | | | | | | Provider Unknown | | +--------+ + + + + | 10/06/ | Orders Only | | Conversion | | | 2018 | | | Transaction, | | | | | | Provider Unknown | | +--------+ + + + + | 10/04/ | Orders Only | Orthopedic Surgery | Emilio Moreno, | | | 2018 | | | PA-Christos | | +--------+ + + + + from Last 3 Months Family History + + +------+ + | [...] | Blood Pressure | 116/76 | 12/11/2018 1547 PDT | + + + + | Pulse | 93 | 12/11/20181546 PDT | + + + + | Temperature | 36.9 C (98.4 F) | 11/09/20181142 PDT | + + + + | Respiratory Rate | 18 | 11/09/20181513 PDT | + + + + | Oxygen [...] 12/11/20181546 PDT | + + + + Plan [...] Vaccine: Influenza | | | | | (#1) | 9 | | | + + + + [...] | MEDICAL - | | 2023 | -46F | | 10/24/2018 by Eneida, | | | STRY | | | /NA | | Miah Sanon MD | | | | | | /[id number] | | | | | | | | 603 [...] | /NA | | Miah Sanon MD | | | | | | /[id number] | | | | | | | | 801 [...] | /NA | | Miah Sanon MD | | | | | | /[id number] | | | | | | | | 07 | + +--------+--------+ +--------+--------+--------+ | Trident Ii Tritanium | | | STRYKERO | | 02/23/ | 709-04 | | Multihole Acetabular | | | JULIEN | | 2022 | -58F | | ShellImplanted: Qty: 1 on | | | ORTHOPEDICS | | | /NA | | 10/24/2018 by Eneida, | | | | | | /[id number] | | Miah Sanon MD | | | | | | 601A | + +--------+--------+ +--------+--------+--------+ | Screw Hex Lp [id number] - | | Left: | JULIEN | | 07/05/ | 7030-6 | | SnaImplanted: Qty: 1 on | | Hip | MEDICAL - | | 2023 | 530 | | 10/24/2018 by Eneida, | | | STRY | | | /NA | | Miah Sanon MD | | | | | | /[id number] | + +--------+--------+ +--------+--------+--------+ | Screw Hex Lp [id number] - | | Left: | JULIEN | | 08/12/ | 7030-6 | | SnaImplanted: Qty: 1 on | | Hip | MEDICAL - | | 2023 | 530 | | 10/24/2018 by Eneida, | | | STRY | | | /NA | | Miah Sanon MD | | | | | | /4RS | + +--------+--------+ +--------+--------+--------+ | Screw Hex Lp [id number] - | | Left: | JULIEN | | 05/15/ | 7030-6 | | SnaImplanted: Qty: 1 on | | Hip | MEDICAL - | | 2023 | 515 | | 10/24/2018 by Eneida, | | | STRY | | | /NA | | Miah Sanon MD | | | | | | /5ML | + +--------+--------+ +--------+--------+--------+ | [employer] C-Taper | | Left: | Julien | | 02/14/ | - | | Femoral Head Implanted: Qty: | | Hip | Orthopaedic | | 2020 | 3 /NA | | 1 on 10/24/2018 by Eneida, | | | s | | | /[id number] | | Miah Sanon MD | | | | | | 901 | + +--------+--------+ +--------+--------+--------+ Procedures + +--------+ + + + | Procedure Name | Priori | Date/Time | Associated Diagnosis | Comments | | | ty | | | | + +--------+ + + + | XR HIP LEFT 2-3 | Routin | 12/11/2018 | Status post left | Results for this | | VIEWS | e | 15:59 PDT | hip replacement | procedure are in the | | | | | | results section. | + +--------+ + + + | CBC WITH | Routin | 11/09/2018 | | Results for this | | DIFFERENTIAL | e | 4:28 PDT | | procedure are in the | | | | | | results section. | + +--------+ + + + | MAGNESIUM | Routin | 11/09/2018 | | Results for this | | | e | 4:28 PDT | | procedure are in the | | | | | | results section. | + +--------+ + + + | BASIC METABOLIC | Routin | 11/09/2018 | | Results for this | | PANEL | e | 4:28 PDT | | procedure are in the | | | | | | results section. | + +--------+ + + + | CBC WITH | Routin | 11/08/2018 | | Results for this | | DIFFERENTIAL | e | 3:56 PDT | | procedure are in the | | | | | | results section. | + +--------+ + + + | MAGNESIUM | Routin | 11/08/2018 | | Results for this | | | e | 3:56 PDT | | procedure are in the | | | | | | results section. | + +--------+ + + + | BASIC METABOLIC | Routin | 11/08/2018 | | Results for this | | PANEL | e | 3:56 PDT | | procedure are in the | | | | | | results section. | + +--------+ + + + | PROCALCITONIN, SERUM | Routin | 11/07/2018 | | Results for this | | | e | 4:11 PDT | | procedure are in the | | | | | | results section. | + +--------+ + + + | CBC WITH | Routin | 11/07/2018 | | Results for this | | DIFFERENTIAL | e | 4:11 PDT | | procedure are in the | | | | | | results section. | + +--------+ + + + | MAGNESIUM | Routin | 11/07/2018 | | Results for this | | | e | 4:11 PDT | | procedure are in the | | | | | | results section. | + +--------+ + + + | BASIC METABOLIC | Routin | 11/07/2018 | | Results for this | | PANEL | e | 4:11 PDT | | procedure are in the | | | | | | results section. | + +--------+ + + + | CBC WITH | Routin | 11/06/2018 | | Results for this | | DIFFERENTIAL | e | 4:09 PDT | | procedure are in the | | | | | | results section. | + +--------+ + + + | MAGNESIUM | Routin | 11/06/2018 | | Results for this | | | e | 4:09 PDT | | procedure are in the | | | | | | results section. | + +--------+ + + + | BASIC METABOLIC | Routin | 11/06/2018 | | Results for this | | PANEL | e | 4:09 PDT | | procedure are in the | | | | | | results section. | + +--------+ + + + | CBC WITH | Routin | 11/05/2018 | | Results for this | | DIFFERENTIAL | e | 4:05 PDT | | procedure are in the | | | | | | results section. | + +--------+ + + + | MAGNESIUM | Routin | 11/05/2018 | | Results for this | | | e | 4:05 PDT | | procedure are in the | | | | | | results section. | + +--------+ + + + | BASIC METABOLIC | Routin | 11/05/2018 | | Results for this | | PANEL | e | 4:05 PDT | | procedure are in the | | | | | | results section. | + +--------+ + + + | CBC WITH | Routin | 11/04/2018 | | Results for this | | DIFFERENTIAL | e | 3:53 PDT | | procedure are in the | | | | | | results section. | + +--------+ + + + | MAGNESIUM | Routin | 11/04/2018 | | Results for this | | | e | 3:53 PDT | | procedure are in the | | | | | | results section. | + +--------+ + + + | BASIC METABOLIC | Routin | 11/04/2018 | | Results for this | | PANEL | e | 3:53 PDT | | procedure are in the | | | | | | results section. | + +--------+ + + + | CBC WITH | Routin | 11/03/2018 | | Results for this | | DIFFERENTIAL | e | 3:58 PDT | | procedure are in the | | | | | | results section. | + +--------+ + + + | MAGNESIUM | Routin | 11/03/2018 | | Results for this | | | e | 3:58 PDT | | procedure are in the | | | | | | results section. | + +--------+ + + + | BASIC METABOLIC | Routin | 11/03/2018 | | Results for this | | PANEL | e | 3:58 PDT | | procedure are in the | | | | | | results section. | + +--------+ + + + | CBC WITH | Routin | 11/02/2018 | | Results for this | | DIFFERENTIAL | e | 4:08 PDT | | procedure are in the | | | | | | results section. | + +--------+ + + + | MAGNESIUM | Routin | 11/02/2018 | | Results for this | | | e | 4:08 PDT | | procedure are in the | | | | | | results section. | + +--------+ + + + | BASIC METABOLIC | Routin | 11/02/2018 | | Results for this | | PANEL | e | 4:08 PDT | | procedure are in the | | | | | | results section. | + +--------+ + + + | ANTHONY PROFILE, REFLEX | Add-On | 11/01/2018 | | Results for this | | | | 4:17 PDT | | procedure are in the | | | | | | results section. | + +--------+ + + + | CBC WITH | Routin | 11/01/2018 | | Results for this | | DIFFERENTIAL | e | 4:17 PDT | | procedure are in the | | | | | | results section. | + +--------+ + + + | PROCALCITONIN, SERUM | Routin | 11/01/2018 | | Results for this | | | e | 4:17 PDT | | procedure are in the | | | | | | results section. | + +--------+ + + + | MAGNESIUM | Routin | 11/01/2018 | | Results for this | | | e | 4:17 PDT | | procedure are in the | | | | | | results section. | + +--------+ + + + | BASIC METABOLIC | Routin | 11/01/2018 | | Results for this | | PANEL | e | 4:17 PDT | | procedure are in the | | | | | | results section. | + +--------+ + + + | POTASSIUM | STAT | 10/31/2018 | | Results for this | | | | 18:15 PDT | | procedure are in the | | | | | | results section. | + +--------+ + + + | PHOSPHORUS | Routin | 10/31/2018 | | Results for this | | | e | 4:14 PDT | | procedure are in the | | | | | | results section. | + +--------+ + + + | CBC WITH | Routin | 10/31/2018 | | Results for this | | DIFFERENTIAL | e | 4:14 PDT | | procedure are in the | | | | | | results section. | + +--------+ + + + | MAGNESIUM | Routin | 10/31/2018 | | Results for this | | | e | 4:14 PDT | | procedure are in the | | | | | | results section. | + +--------+ + + + | BASIC METABOLIC | Routin | 10/31/2018 | | Results for this | | PANEL | e | 4:14 PDT | | procedure are in the | | | | | | results section. | + +--------+ + + + | XR CHEST AP PORTABLE | Routin | 10/30/2018 | | Results for this | | | e | 15:15 PDT | | procedure are in the | | | | | | results section. | + +--------+ + + + | CBC WITH | Routin | 10/30/2018 | | Results for this | | DIFFERENTIAL | e | 4:18 PDT | | procedure are in the | | | | | | results section. | + +--------+ + + + | VITAMIN D, | Routin | 10/30/2018 | | Results for this | | DEFICIENCY SCREEN | e | 4:18 PDT | | procedure are in the | | (25-HYDROXY) | | | | results section. | + +--------+ + + + | MAGNESIUM | Routin | 10/30/2018 | | Results for this | | | e | 4:18 PDT | | procedure are in the | | | | | | results section. | + +--------+ + + + | BASIC METABOLIC | Routin | 10/30/2018 | | Results for this | | PANEL | e | 4:18 PDT | | procedure are in the | | | | | | results section. | + +--------+ + + + | CULTURE, | Routin | 10/29/2018 | | Results for this | | RESPIRATORY, LOWER, | e | 17:29 PDT | | procedure are in the | | SMEAR | | | | results section. | + +--------+ + + + | ECHO COMPLETE | Routin | 10/29/2018 | | Results for this | | | e | 9:59 PDT | | procedure are in the | | | | | | results section. | + +--------+ + + + | MAGNESIUM | Routin | 10/29/2018 | | Results for this | | | e | 4:39 PDT | | procedure are in the | | | | | | results section. | + +--------+ + + + | BASIC METABOLIC | Routin | 10/29/2018 | | Results for this | | PANEL | e | 4:39 PDT | | procedure are in the | | | | | | results section. | + +--------+ + + + | CBC WITH | Routin | 10/29/2018 | | Results for this | | DIFFERENTIAL | e | 4:39 PDT | | procedure are in the | | | | | | results section. | + +--------+ + + + | VAS LOWER EXTREMITY | Routin | 10/28/2018 | | Results for this | | VENOUS BILATERAL | e | 10:57 PDT | | procedure are in the | | | | | | results section. | + +--------+ + + + | PROCALCITONIN, SERUM | STAT | 10/28/2018 | | Results for this | | | | 8:35 PDT | | procedure are in the | | | | | | results section. | + +--------+ + + + | B TYPE NATRIURETIC | STAT | 10/28/2018 | | Results for this | | PEPTIDE | | 8:35 PDT | | procedure are in the | | | | | | results section. | + +--------+ + + + | BASIC METABOLIC | STAT | 10/28/2018 | | Results for this | | PANEL | | 8:35 PDT | | procedure are in the | | | | | | results section. | + +--------+ + + + | CBC WITH | STAT | 10/28/2018 | | Results for this | | DIFFERENTIAL | | 8:35 PDT | | procedure are in the | | | | | | results section. | + +--------+ + + + | CT ANGIOGRAM | STAT | 10/27/2018 | | Results for this | | PULMONARY | | 18:21 PDT | | procedure are in the | | | | | | results section. | + +--------+ + + + | XR CHEST AP PORTABLE | STAT | 10/27/2018 | | Results for this | | | | 17:05 PDT | | procedure are in the | | | | | | results section. | + +--------+ + + + | BASIC METABOLIC | Routin | 10/27/2018 | | Results for this | | PANEL | e | 13:23 PDT | | procedure are in the | | | | | | results section. | + +--------+ + + + | CBC NO DIFFERENTIAL | Routin | 10/27/2018 | | Results for this | | | e | 13:23 PDT | | procedure are in the | | | | | | results section. | + +--------+ + + + | ECG 12 LEAD | Routin | 10/27/2018 | | Results for this | | | e | 12:37 PDT | | procedure are in the | | | | | | results section. | + +--------+ + + + | XR PELVIS COMPLETE 3 | JAMIL | 10/27/2018 | | Results for this | | + VW | | 11:53 PDT | | procedure are in the | | | | | | results section. | + +--------+ + + + | HEMOGLOBIN AND | Routin | 10/25/2018 | | Results for this | | HEMATOCRIT | e | 4:40 PDT | | procedure are in the | | | | | | results section. | + +--------+ + + + | XR PELVIS 1 OR 2 VW | Routin | 10/24/2018 | | Results for this | | | e | 18:47 PDT | | procedure are in the | | | | | | results section. | + +--------+ + + + | SURGICAL PATHOLOGY | Routin | 10/24/2018 | Pain in prosthetic | Results for this | | EXAM | e | 16:54 PDT | joint, initial | procedure are in the | | | | | encounter ([facility]) | results section. | | | | | Mechanical | | | | | | complication of | | | | | | prosthetic knee | | | | | | implant, initial | | | | | | encounter ([facility]) | | + +--------+ + + + | ANE EPIDURAL NOTE | Routin | 10/24/2018 | | Results for this | | | e | 16:44 PDT | | procedure are in the | | | | | | results section. | + +--------+ + + + | CULTURE, WOUND, | Routin | 10/24/2018 | | Results for this | | SMEAR, W/ANAEROBE | e | 16:41 PDT | | procedure are in the | | | | | | results section. | + +--------+ + + + | CULTURE, TISSUE, | Routin | 10/24/2018 | Pain in prosthetic | Results for this | | SMEAR, WITH | e | 16:41 PDT | joint, initial | procedure are in the | | ANAEROBES | | | encounter ([facility]) | results section. | | | | | Mechanical | | | | | | complication of | | | | | | prosthetic knee | | | | | | implant, initial | | | | | | encounter ([facility]) | | + +--------+ + + + | TYPE AND SCREEN | STAT | 10/24/2018 | | Results for this | | | | 13:56 PDT | | procedure are in the | | | | | | results section. | + +--------+ + + + | ARTHROPLASTY | | 10/24/2018 | Pain in prosthetic | | | REVISION TOTAL HIP | | 13:40 PDT | joint, initial | | | | | | encounter ([facility]) | | | | | | Mechanical | | | | | | complication of | | | | | | prosthetic knee | | | | | | implant, initial | | | | | | encounter ([facility]) | | + +--------+ + + + +---+--------+ | | | | | Specia | | | l | | | Needs | | | | | | Stryke | | | r and | | | microp | | | ort | | | compon | | | ent, | | | BMI | | | 51.3 | +---+--------+ + +--------+ +---+ + | POCT TEST, | Routin | 10/24/2018 | | Results for this | | URINE, QUAL | e | 13:27 PDT | | procedure are in the | | | | | | results section. | + +--------+ +---+ + | CRYSTAL | Routin | 10/18/2018 | | Results for this | | IDENTIFICATION, BODY | e | 15:19 PDT | | procedure are in the | | FLUID | | | | results section. | + +--------+ +---+ + | CELL COUNT, BODY | Routin | 10/18/2018 | | Results for this | | FLUID | e | 15:19 PDT | | procedure are in the | | | | | | results section. | + +--------+ +---+ + | CULTURE, BODY FLUID, | Routin | 10/18/2018 | | Results for this | | STERILE, SMEAR, | e | 15:19 PDT | | procedure are in the | | WITH ANAEROBES | | | | results section. | + +--------+ +---+ + | FL ASPIRATION | Routin | 10/18/2018 | | Results for this | | INJECTION MAJOR | e | 14:45 PDT | | procedure are in the | | JOINT LEFT | | | | results section. | + +--------+ +---+ + | EXTERNAL LAB: CBC | Routin | 10/06/2018 | | Results for this | | | e | 11:00 PDT | | procedure are in the | | | | | | results section. | + +--------+ +---+ + | HEMOGLOBIN A1C | Routin | 10/06/2018 | | Results for this | | | e | 11:00 PDT | | procedure are in the | | | | | | results section. | + +--------+ +---+ + | COMPREHENSIVE | Routin | 10/06/2018 | | Results for this | | METABOLIC PANEL | e | 11:00 PDT | | procedure are in the | | | | | | results section. | + +--------+ +---+ + | MRSA NAAT | Timed | 10/06/2018 | | Results for this | | | | 11:00 PDT | | procedure are in the | | | | | | results section. | + +--------+ +---+ + from Last 3 Months Results XR Hip Left 2-3 Views (12/11/2018 [...] | | | + +---------+ + + CBC with Differential (11/09/2018 4:28 PDT)Only the most recent of 13 results within the period is included. + + + + + + | Component | Value | Ref Range | Performed | Pathologist | | | | | At | Signature | + + + + + + | WBC | 15.20 (H) | 3.80 - 11.00 | [facility] | | | | | K/uL | LABORATORY | | + + + + + + | RBC | 3.54 (L) | 3.70 - 5.10 | [facility] | | | | | M/uL | LABORATORY | | + + + + + + | Hemoglobin | 10.9 (L) | 11.3 - 15.5 | [facility] | | | | | g/dL | LABORATORY | | + + + + + + | Hematocrit | 32.1 (L) | 34.0 - 46.0 % | [facility] | | | | | | LABORATORY | | + + + + + + | MCV | 90.8 | 80.0 - 100.0 fl | [facility] | | | | | | LABORATORY | | + + + + + + | MCH | 30.8 | 27.0 - 34.0 pg | [facility] | | | | | | LABORATORY | | + + + + + + | MCHC | 34.0 | 32.0 - 35.5 | [facility] | | | | | g/dL | LABORATORY | | + + + + + + | RDW-SD | 49.4 | 37 - 53 fl | [facility] | | | | | | LABORATORY | | + + + + + + | Platelet | 568 (H) | 150 - 400 K/uL | [facility] | | | Count | | | LABORATORY | | + + + + + + | MPV | 7.8 | fl | [facility] | | | | | | LABORATORY | | + + + + + + | Diff Type | MANUAL | | [facility] | | | | | | LABORATORY | | + + + + + + | % Segmented | 75 | % | [facility] | | | | | | LABORATORY | | | Neutrophils | | | | | + + + + + + | % Bands | 3 | % | [facility] | | | | | | LABORATORY | | + + + + + + | % | 18 | % | [facility] | | | Lymphocytes | | | LABORATORY | | + + + + + + | % Monocytes | 4 | % | [facility] | | | | | | LABORATORY | | + + + + + + | Neutrophils | 11.39 (H) | 1.90 - 7.40 | [facility] | | | , Absolute | | K/uL | LABORATORY | | + + + + + + | Absolute | 0.46 (H) | 0.00 - 0.20 | [facility] | | | Band | | K/uL | LABORATORY | | | Neutrophils | | | | | + + + + + + | Absolute | 2.74 | 1.00 - 3.90 | [facility] | | | Lymphocytes | | K/uL | LABORATORY | | + + + + + + | Absolute | 0.61 | 0.00 - 0.80 | [facility] | | | Monocytes | | K/uL | LABORATORY | | + + + + + + | RBC | RBC AND PLT MORPHOLOGY | | [facility] | | | Morphology | APPEAR NORMALComment: | | LABORATORY | | | | Testing performed at | | | | | | [facility], [address] [facility] | | | | | | [place] | | | | | | [address] | | | | + + + + + + + + | Specimen | + + | Blood | + + + + + + + | Performing | Address | City/State/Zipcode | Phone Number | | Organization | | | | + + + + + | [facility] | [address] | [place] [address] | [phone] | + + + + + Magnesium (11/09/2018 4:28 PDT)Only the most recent of 12 results within the time period i s included. + + + + + + | Component | Value | Ref Range | Performed | Pathologist | | | | | At | Signature | + + + + + + | Magnesium | 2.5 (H)Comment: SPECIMEN | 1.7 - 2.4 mg/dL | [facility] | | | | SLIGHTLY | | LABORATORY | | | | HEMOLYZEDTesting | | | | | | performed at [facility], [address] | | | | | | [place], | | | | | | [place] [address] | | | | + + + + + + + + | Specimen | + + | Blood | + + + + + + + | Performing | Address | City/State/Zipcode | Phone Number | | Organization | | | | + + + + + | [facility] | [address] | [place] [address] | [phone] | + + + + + Basic Metabolic Panel (11/09/2018 4:28 PDT)Only the most recent of 14 results within the period is included. + + + + + + | Component | Value | Ref Range | Performed | Pathologist | | | | | At | Signature | + + + + + + | Na | 142 | 135 - 145 | [facility] | | | | | mmol/L | LABORATORY | | + + + + + + | K | 3.9Comment: SPECIMEN | 3.5 - 4.9 | [facility] | | | | SLIGHTLY HEMOLYZED | mmol/L | LABORATORY | | + + + + + + | Cl | 105 | 99 - 109 mmol/L | [facility] | | | | | | LABORATORY | | + + + + + + | CO2 | 29 | 23 - 32 mmol/L | [facility] | | | | | | LABORATORY | | + + + + + + | Anion Gap | 12 | 5 - 20 mmol/L | [facility] | | | | | | LABORATORY | | + + + + + + | Glucose | 93Comment: SPECIMEN | 65 - 99 mg/dL | [facility] | | | | SLIGHTLY HEMOLYZED | | LABORATORY | | + + + + + + | BUN | 31 (H) | 8 - 25 mg/dL | [facility] | | | | | | LABORATORY | | + + + + + + | Creatinine | 0.8Comment: SPECIMEN | 0.50 - 1.00 | [facility] | | | | SLIGHTLY HEMOLYZED | mg/dL | LABORATORY | | + + + + + + | BUN/Creatin | 39 | | [facility] | | | ine Ratio | | | LABORATORY | | + + + + + + | Calcium | 8.2 (L) | 8.5 - 10.5 | [facility] | | | | | mg/dL | LABORATORY | | + + + + + + | Estimated | >60Comment: GFR <60: | >60 | [facility] | | | GFR | CHRONIC KIDNEY DISEASE, | mL/min/1.73m2 | LABORATORY | | | | IF FOUND OVER A 3 MONTH | | | | | | PERIOD.GFR <15: KIDNEY | | | | | | FAILURE.FOR | | | | | | AMERICANS, MULTIPLY THE | | | | | | CALCULATED GFR BY | | | | | | 1.210.This eGFR is | | | | | | calculated using the | | | | | | MDRD IDND traceable | | | | | | equation.Testing | | | | | | performed at [facility], [address] | | | | | | [facility], | | | | | | [place] [address] | | | | + + + + + + + + | Specimen | + + | Blood | + + + + + + + | Performing | Address | City/State/Zipcode | Phone Number | | Organization | | | | + + + + + | [facility] | [address] | [place] [address] | [phone] | + + + + + Procalcitonin (11/07/2018 4:11 PDT)Only the most recent of 3 results within the time tutu arboleda is included. + + + + + + | Component | Value | Ref Range | Performed | Pathologist | | | | | At | Signature | + + + + + + | PROCALCITON | 0.10Comment: | <0.5 ng/mL | [facility] | | | IN | INTERPRETIVE | | LABORATORY | | | | INFORMATION: PROCALCI | | | | | | TONIN PCT <= 0.5 | | | | | | ng/mL: Low risk | | | | | | for progression to | | | | | | severe | | | | | | systemic bacteria | | | | | | l infection (severe | | | | | | sepsis/septic | | | | | | shock). Does not | | | | | | exclude an infection, | | | | | | because | | | | | | localized infecti | | | | | | ons may be associated | | | | | | with such low | | | | | | levels. If PCT is | | | | | | measured very early | | | | | | after | | | | | | bacterial challen | | | | | | ge (usually <6 hours), | | | | | | results may still | | | | | | be low and should | | | | | | re-assess PCT 6-24 | | | | | | hours later. PCT >0.5 | | | | | | and <= 2 | | | | | | ng/mL: Moderate | | | | | | risk for progression to | | | | | | severe | | | | | | systemic infectio | | | | | | n (severe sepsis/septic | | | | | | shock). Other | | | | | | conditions are known to | | | | | | elevate PCT, patient | | | | | | should be | | | | | | closely monitored both | | | | | | clinically and | | | | | | by re-assessing | | | | | | PCT within 6-24 hours. | | | | | | PCT > 2 | | | | | | ng/mL: High | | | | | | likelihood for | | | | | | progression to severe | | | | | | systemic bacteria | | | | | | l infection (severe | | | | | | sepsis/septic shock). | | | | | | PCT >= 10 | | | | | | ng/mL: High | | | | | | likelihood of severe | | | | | | sepsis or septic | | | | | | shock.Testing performed | | | | | | at [facility];[address] [place] [address] | | | | | | [facility];[place] [address] | | | | + + + + + + + + | Specimen | + + | Blood | + + + + + + + | Performing | Address | City/State/Zipcode | Phone Number | | Organization | | | | + + + + + | [facility] | [address] | [place] [address] | [phone] | + + + + + ANTHONY Chinchilla, Reflex (11/01/2018 4:17 PDT) + + + + + + | Component | Value | Ref Range | Performed | Pathologist | | | | | At | Signature | + + + + + + | ANTHONY Screen, | NegativeComment: Testing | Negative | [facility] | | | Qual | performed at [facility] | | LABORATORY | | | | [address] | | | | | | [place] [address] | | | | + + + + + + | C ANCA | <1:20 | Neg:<1:20 titer | [facility] | | | | | | LABORATORY | | + + + + + + | P ANCA | <1:20Comment: The | Neg:<1:20 titer | [facility] | | | | presence of positive | | LABORATORY | | | | fluorescence exhibiting | | | | | | P-ANCA or C-ANCApatterns | | | | | | alone is not specific | | | | | | for the diagnosis of | | | | | | Marcelle'sGranulomatosis | | | | | | (WG) or microscopic | | | | | | polyangiitis. Decisions | | | | | | abouttreatment should | | | | | | not be based solely on | | | | | | ANCA IFA | | | | | | results. TheInternati | | | | | | onal ANCA Group | | | | | | Consensus recommends | | | | | | follow up testing | | | | | | ofpositive sera with | | | | | | both CA-3 and MPO-ANCA | | | | | | enzyme immunoassays. | | | | | | Asmany as 5% serum | | | | | | samples are positive | | | | | | only by EIA.Ref. AM J | | | | | | Clin Pathol | | | | | | 1998;[id number]:[phone]. | | | | + + + + + + | Atypical | <1:20Comment: The | Neg:<1:20 titer | [facility] | | | pANCA | atypical pANCA pattern | | LABORATORY | | | | has been observed in a | | | | | | significantpercentage of | | | | | | patients with | | | | | | ulcerative colitis, | | | | | | primary | | | | | | sclerosingcholangitis | | | | | | and autoimmune | | | | | | hepatitis. | | | | + + + + + + | Myeloperoxi | <9.0 | 0.0 - 9.0 U/mL | [facility] | | | dase | | | LABORATORY | | | Antibody | | | | | + + + + + + | Proteinase | <3.5Comment: Testing | 0.0 - 3.5 U/mL | [facility] | | | 3 Antibody | performed by [facility], | | LABORATORY | | | | [address] [facility], | | | | | | [facility] [address] | | | | + + + + + + + + | Specimen | + + | Blood | + + + + + + + | Performing | Address | City/State/Zipcode | Phone Number | | Organization | | | | + + + + + | [facility] | [address] | [place] [address] | [phone] | + + + + + Potassium (10/31/2018 18:15 PDT) + + + + + + | Component | Value | Ref Range | Performed | Pathologist | | | | | At | Signature | + + + + + + | K | 3.8Comment: Testing | 3.5 - 4.9 | [facility] | | | | performed at [facility];[address] | mmol/L | LABORATORY | | | | [address];[place] | | | | | | [address] | | | | + + + + + + + + | Specimen | + + | Blood | + + + + + + + | Performing | Address | City/State/Zipcode | Phone Number | | Organization | | | | + + + + + | [facility] | [address] | [place] [address] | [phone] | + + + + + Phosphorus (10/31/2018 4:14 PDT) + + + + + + | Component | Value | Ref Range | Performed | Pathologist | | | | | At | Signature | + + + + + + | Phosphorus | 3.4Comment: Testing | 2.3 - 4.8 mg/dL | [facility] | | | | performed at [facility], [address] | | LABORATORY | | | | [address] [facility], | | | | | | [place] [address] | | | | + + + + + + + + | Specimen | + + | Blood | + + + + + + + | Performing | Address | City/State/Zipcode | Phone Number | | Organization | | | | + + + + + | [facility] | [address] | [place] [address] | [phone] | + + + + + XR Chest AP Portable (10/30/2018 15:15 PDT)Only the most recent of 2 results within the is included. + + | Specimen | + + | | + + + + + | Narrative | Performed At | + + + | CHEST PORTABLE ONE VIEW CLINICAL INFORMATION: Bilateral | [facility] | | infiltrates attributed to aspiration vs pulmonary edema. pls note | | | progression/improvement. COMPARISON: CT ANGIOGRAM PULMONARY W | | | CONTRAST (10/27/2018); XR CHEST AP PORTABLE (10/27/2018); FINDINGS: | | | The heart is normal in size. No mediastinal shift or widening is | | | noted. No pneumothorax is present. Bilateral patchy opacities | | | are seen throughout the lung bilaterally. There is blunting of the | | | costophrenic angle. IMPRESSION: Bilateral opacities throughout | | | the lung which may reflect residual airspace consolidation from | | | pneumonia or pulmonary edema. These are stable. Signed | | | by: Korina Alcaraz Richard Sign Date/Time: 10/30/2018 4:54 PM | | + + + + + | Procedure Note | + + | Robin, Rad Results In - 10/30/2018 1658 PDT | | CHEST PORTABLE ONE VIEW | | | | CLINICAL INFORMATION: | | Bilateral infiltrates attributed to aspiration vs pulmonary edema. pls | | note progression/improvement. | | | | COMPARISON: | | CT ANGIOGRAM PULMONARY W CONTRAST (10/27/2018); XR CHEST AP PORTABLE | | (10/27/2018); | | | | FINDINGS: | | The heart is normal in size. No mediastinal shift or widening is | | noted. No pneumothorax is present. Bilateral patchy opacities are | | seen throughout the lung bilaterally. There is blunting of the | | costophrenic angle. | | | | IMPRESSION: | | Bilateral opacities throughout the lung which may reflect residual | | airspace consolidation from pneumonia or pulmonary edema. These are | | stable. | | | | | | | | Signed by: Korina Alcaraz Richard | | Sign Date/Time: 10/30/2018 4:54 PM | + + + +---------+ + + | Performing | Address | City/State/[facility] | Phone Number | | Organization | | | | + +---------+ + + | [facility] | | | | + +---------+ + + Vitamin D, Deficiency Screen (25-Hydroxy) (10/30/2018 4:18 PDT) + + + + + + | Component | Value | Ref Range | Performed | Pathologist | | | | | At | Signature | + + + + + + | Vit D, | <12 (L)Comment: <20 | 30 - 150 ng/mL | [facility] | | | 25-Hydroxy | ng/mL Suggest | | LABORATORY | | | | s deficiency of 25-OH | | | | | | Vitamin D.20-29 | | | | | | ng/mL Suggests a | | | | | | relative insufficiency | | | | | | of 25-OH Vitamin | | | | | | D.30-150 ng/mL | | | | | | Suggests a sufficient | | | | | | level of 25-OH Vitamin | | | | | | D.>150 ng/mL | | | | | | Toxic level of 25-OH | | | | | | Vitamin D.Blood levels | | | | | | of 25 Hydroxy Vitamin D | | | | | | vary with the extent of | | | | | | sun exposure.Values tend | | | | | | to be highest in late | | | | | | summer and lowest in the | | | | | | spring. Values alsotend | | | | | | to decrease with age, | | | | | | due to decreased | | | | | | precursor synthesis in | | | | | | the skin.Testing | | | | | | performed at [facility], [address] | | | | | | [facility], | | | | | | [place] [address] | | | | + + + + + + + + | Specimen | + + | Blood | + + + + + + + | Performing | Address | City/State/Zipcode | Phone Number | | Organization | | | | + + + + + | [facility] | [address] | [place] [address] | [phone] | + + + + + Culture, Respiratory, Lower, Smear (10/29/2018 17:29 PDT) + + + + + + | Component | Value | Ref Range | Performed | Pathologist | | | | | At | Signature | + + + + + + | Gram Stain | GREATER THAN 10 SEC/LPF | | [facility] | | | Result | | | LABORATORY | | + + + + + + | Gram Stain | GREATER THAN 10 WBCS/LPF | | [facility] | | | Result | | | LABORATORY | | + + + + + + | Gram Stain | 1+ | | [facility] | | | Result | GRAM POSITIVE COCCI | | LABORATORY | | | | | | | | + + + + + + | Gram Stain | 1+ | | [facility] | | | Result | GRAM NEGATIVE RODS | | LABORATORY | | | | | | | | + + + + + + | Gram Stain | 1+ | | [facility] | | | Result | GRAM POSITIVE RODS | | LABORATORY | | | | | | | | + + + + + + | Gram Stain | 1+ | | [facility] | | | Result | GRAM NEGATIVE COCCI | | LABORATORY | | | | | | | | + + + + + + | Gram Stain | 1+ | | [facility] | | | Result | YEAST | | LABORATORY | | | | | | | | + + + + + + | RESULT | SMEAR CONTAINS GREATER | | [facility] | | | | THAN 10 SEC/LPF | | LABORATORY | | | | SUGGESTIVE OF POOR | | | | | | QUALITY SPECIMEN. | | | | | | SPECIMEN WILL NOT BE | | | | | | CULTURED OR WILL BE | | | | | | CULTURED BY SPECIAL | | | | | | REQUEST ONLY. PLEASE | | | | | | RECOLLECT IF CLINICALLY | | | | | | INDICATED. SPECIMEN | | | | | | WILL BE HELD 48 HOURS. | | | | + + + + + + | RESULT | Testing performed at | | [facility] | | | | [facility], [address] [facility] | | LABORATORY | | | | [place], [place] | | | | | | [id number]: Testing | | | | | | performed at [facility], [address] | | | | | | [facility], | | | | | | [place] [address] | | | | + + + + + + + + | Specimen | + + | Body Fluid | + + + + + + + | Performing | Address | City/State/Zipcode | Phone Number | | Organization | | | | + + + + + | [facility] | [address] | [place] [address] | [phone] | + + + + + ECHO Complete (10/29/2018 9:59 PDT) + +--------+ + + + | Component | Value | Ref Range | Performed | Pathologist | | | | | At | Signature | + +--------+ + + + | BASELINE | 123/65 | mmHg | [facility] | | | BLOOD | | | | | | PRESSURE | | | | | + +--------+ + + + | Patient | 278 | | [facility] | | | Weight | | | | | | (lbs) | | | | | + +--------+ + + + | Patient | 60 | | [facility] | | | Height | | | | | + +--------+ + + + | Heart Rate | 97 | | [facility] | | + +--------+ + + + | Inferior | 1.6 | cm | [facility] | | | Vena Cava | | | | | | Diameter at | | | | | | | | | | | | Inspiration | | | | | + +--------+ + + + | Inferior | 0.8 | cm | [facility] | | | Vena Cava | | | | | | Diameter at | | | | | | Expiration | | | | | + +--------+ + + + | RA PRESSURE | 3 | mmHg | [facility] | | + +--------+ + + + | LVIDd | 3.86 | cm | [facility] | | + +--------+ + + + | FS | 40 | % | [facility] | | + +--------+ + + + | AV mean | 4.47 | mmHg | [facility] | | | gradient | | | | | + +--------+ + + + | Aortic | 1.91 | cm2 | [facility] | | | Valve Area | | | | | | by | | | | | | Continuity | | | | | | VTI | | | | | + +--------+ + + + | PV peak | 3.5 | mmHg | [facility] | | | gradient | | | | | + +--------+ + + + | LVOT | 1.98 | cm | [facility] | | | diameter | | | | | + +--------+ + + + | LVOT peak | 92.78 | cm/s | [facility] | | | carli | | | | | + +--------+ + + + | LVOT peak | 16.7 | cm | [facility] | | | VTI | | | | | + +--------+ + + + | AV peak carli | 154.96 | cm/s | [facility] | | + +--------+ + + + | AV VTI | 26.88 | cm | [facility] | | + +--------+ + + + | AV peak | 9.61 | mmHg | [facility] | | | gradient | | | | | + +--------+ + + + | PV mean | 1.85 | mmHg | [facility] | | | gradient | | | | | + +--------+ + + + | AV LVOT | 3.44 | mmHg | [facility] | | | Peak | | | | | | Gradient | | | | | + +--------+ + + + | AV LVOT | 1.51 | mmHg | [facility] | | | Mean | | | | | | Gradient | | | | | + +--------+ + + + | TR Peak | 32 | mmHg | [facility] | | | Gradient | | | | | + +--------+ + + + | RV Free | 13.55 | cm/s | [facility] | | | Wall Peak | | | | | | S' | | | | | + +--------+ + + + | TR Velocity | 283.08 | cm | [facility] | | + +--------+ + + + | PI Peak | 93.52 | cm/s | [facility] | | | Velocity | | | | | + +--------+ + + + | LVOT Mean | 55.55 | cm/s | [facility] | | | Velocity | | | | | + +--------+ + + + | RVSP | 35 | mmHg | [facility] | | | Estimated | | | | | + +--------+ + + + | MV | 180.03 | msec | [facility] | | | Deceleratio | | | | | | n Time | | | | | + +--------+ + + + | MV E/A | 1.03 | | [facility] | | | Ratio | | | | | + +--------+ + + + | MV Peak | 95.04 | cm/s | [facility] | | | A-Wave | | | | | + +--------+ + + + | MV Peak | 98.15 | cm/s | [facility] | | | E-Wave | | | | | + +--------+ + + + | PV Mean | 62.73 | cm/s | [facility] | | | Velocity | | | | | + +--------+ + + + | AV Mean | 95.45 | cm/s | [facility] | | | Velocity | | | | | + +--------+ + + + | LA/Aorta | 1.82 | | [facility] | | | Ratio | | | | | + +--------+ + + + | LA Major | 0.2688 | cm | [facility] | | + +--------+ + + + | Aortic Root | 2.45 | cm | [facility] | | | Diameter | | | | | + +--------+ + + + | IVS | 1.01 | cm | [facility] | | | Diastolic | | | | | | Thickness | | | | | | MM | | | | | + +--------+ + + + | LVPW | 1.15 | cm | [facility] | | | Diastolic | | | | | | Thickness | | | | | | MM | | | | | + +--------+ + + + | IVS | 1.66 | cm | [facility] | | | Systolic | | | | | | Thickness | | | | | | MM | | | | | + +--------+ + + + | LV Systolic | 2.31 | cm | [facility] | | | Diameter | | | | | | MM | | | | | + +--------+ + + + | LVPW | 1.44 | cm | [facility] | | | Systolic | | | | | | Thickness | | | | | | MM | | | | | + +--------+ + + + | AV Cusp | 1.77 | cm | [facility] | | | Seperation | | | | | | MM | | | | | + +--------+ + + + | LA Systolic | 4.47 | cm | [facility] | | | Diameter | | | | | | MM | | | | | + +--------+ + + + | TAPSE | 2.34 | cm | [facility] | | + +--------+ + + + | LVEF-TTE | 60 | % | [facility] | | | TRANSTHORAC | | | | | | IC ECHO | | | | | + +--------+ + + + + + | Specimen | + + | | + + + + + | Narrative | Performed At | + + + | The study | [facility] | | was technically limited Overall LVF is normal, but no comment can be | | | made on wall motion because the study quality. There is a small | | | circumferential pericardial effusion. | | | | | + + + + +---------+ + + | Performing | Address | City/State/Zipcode | Phone Number | | Organization | | | | + +---------+ + + | [facility] | | | | + +---------+ + + VAS Lower Extremity Venous Bilateral (10/28/2018 10:57 PDT) + + | Specimen | + + | | + + + + + | Narrative | Performed At | + + + | VENOUS BILATERAL FOR DVT ONLY CLINICAL INFORMATION: Rule out | [facility] | | Deep Vein Thrombosis COMPARISON: None PROCEDURE: Duplex | | | and color Doppler evaluation of the veins of the lower extremities | | | including compression, spectral analysis and Doppler response to | | | distal compression, Valsalva, and/or other maneuvers. FINDINGS: | | | Right Lower Extremity: The common femoral vein, femoral vein and | | | popliteal vein are compressible with normal augmentation. Greater | | | saphenous vein unremarkable. Left Lower Extremity: The common | | | femoral vein, femoral vein and popliteal vein are compressible with | | | normal augmentation. Greater saphenous vein unremarkable. | | | IMPRESSION: Bilateral lower extremity ultrasound negative for DVT. | | | Signed by: Korina Ahn, Efe Sign Date/Time: 10/28/2018 1:20 | | | PM | | + + + + + | Procedure Note | + + | Robin, Rad Results In - 10/28/2018 1324 PDT | | VENOUS BILATERAL FOR DVT ONLY | | | | CLINICAL INFORMATION: | | Rule out Deep Vein Thrombosis | | | | COMPARISON: | | None | | | | PROCEDURE: | | Duplex and color Doppler evaluation of the veins of the lower | | extremities including compression, spectral analysis and Doppler | | response to distal compression, Valsalva, and/or other maneuvers. | | | | FINDINGS: | | Right Lower Extremity: | | The common femoral vein, femoral vein and popliteal vein are | | compressible with normal augmentation. Greater saphenous vein | | unremarkable. | | | | Left Lower Extremity: | | The common femoral vein, femoral vein and popliteal vein are | | compressible with normal augmentation. Greater saphenous vein | | unremarkable. | | | | IMPRESSION: | | Bilateral lower extremity ultrasound negative for DVT. | | | | | | | | Signed by: Korina Ahn Shawn | | Sign Date/Time: 10/28/2018 1:20 PM | + + + +---------+ + + | Performing | Address | City/State/Zipcode | Phone Number | | Organization | | | | + +---------+ + + | [facility] | | | | + +---------+ + + B Type Natriuretic Peptide (10/28/2018 8:35 PDT) + + + + + + | Component | Value | Ref Range | Performed | Pathologist | | | | | At | Signature | + + + + + + | BNP | 101.07 (H)Comment: | 0 - 100 pg/mL | [facility] | | | | Testing performed at | | LABORATORY | | | | [facility];[address] [place] [address] | | | | | | Bl;[place] [address] | | | | + + + + + + + + | Specimen | + + | Blood | + + + + + + + | Performing | Address | City/State/Zipcode | Phone Number | | Organization | | | | + + + + + | [facility] | [address] | [place] [address] | [phone] | + + + + + CT Angiogram Pulmonary w Contrast (10/27/2018 18:21 PDT) + + | Specimen | + + | | + + + + + | Narrative | Performed At | + + + | CT ANGIOGRAM PULMONARY CLINICAL INFORMATION: Shortness of | [facility] | | breath, Tachycardia with chest discomfort. COMPARISON: XR CHEST | | | AP PORTABLE (10/27/2018); PROCEDURE: Thin-section images of the | | | entire chest after the administration of 100 ml Omnipaque 350 | | | intravenous contrast. 3D MIP thin slab images and 2D multiplanar | | | reconstructions performed. At least one of the following CT dose | | | optimization techniques were used: Automated exposure control; | | | Adjustment of mA and/or kV according to patient size; Use of | | | iterative reconstruction technique. FINDINGS: PULMONARY ARTERIES: | | | Diminished sensitivity due to combination of patient body habitus, | | | respiratory motion artifact and beam hardening artifact. No gross | | | evidence of a main pulmonary artery embolus seen. Lobar and segmental | | | pulmonary arteries are not well assessed. RIGHT VENTRICLE TO LEFT | | | VENTRICLE RATIO: Not applicable. (Maximum short axis diameter on | | | axial image. Applicable only when pulmonary embolism present. | | | Abnormal greater than or equal to 0.9.) CHEST Lungs, Pleura and | | | Airways: Throughout both lungs, there are patchy airspace and | | | ground-glass opacities seen, more prominent on the right. No pleural | | | effusion seen Mediastinum: No cardiomegaly or pericardial | | | effusion. Aorta does not appear aneurysmal. Lymph Nodes: There | | | are no enlarged lymph nodes seen. Upper Abdomen: No significant | | | abnormality appreciated. BODY WALL Soft Tissues: No signal | | | abnormality appreciated. Bones: No acute or destructive osseous | | | process seen. IMPRESSION: Diminished sensitivity. No gross | | | evidence of a main pulmonary artery embolus seen. Lobar and | | | segmental pulmonary arteries are not well assessed. If further | | | imaging is warranted, consider correlation with V/Q scan. Bilateral | | | pulmonary opacities, either pneumonia or edema. Follow-up to | | | resolution is recommended to exclude the possibility of a neoplastic | | | process. Signed by: Korina Donovan, Gilles Sign Date/Time: | | | 10/27/2018 6:46 PM | | + + + + + | Procedure Note | + + | Robin, Rad Results In - 10/27/2018 1850 PDT | | CT ANGIOGRAM PULMONARY | | | | CLINICAL INFORMATION: | | Shortness of breath, Tachycardia with chest discomfort. | | | | COMPARISON: | | XR CHEST AP PORTABLE (10/27/2018); | | | | PROCEDURE: | | Thin-section images of the entire chest after the administration of 100 | | ml Omnipaque 350 intravenous contrast. 3D MIP thin slab images and 2D | | multiplanar reconstructions performed. | | | | At least one of the following CT dose optimization techniques were | | used: Automated exposure control; Adjustment of mA and/or kV according | | to patient size; Use of iterative reconstruction technique. | | | | FINDINGS: | | PULMONARY ARTERIES: Diminished sensitivity due to combination of | | patient body habitus, respiratory motion artifact and beam hardening | | artifact. No gross evidence of a main pulmonary artery embolus seen. | | Lobar and segmental pulmonary arteries are not well assessed. | | | | RIGHT VENTRICLE TO LEFT VENTRICLE RATIO: Not applicable. (Maximum short | | axis diameter on axial image. Applicable only when pulmonary embolism | | present. Abnormal greater than or equal to 0.9.) | | | | CHEST | | Lungs, Pleura and Airways: Throughout both lungs, there are patchy | | airspace and ground-glass opacities seen, more prominent on the right. | | No pleural effusion seen | | Mediastinum: No cardiomegaly or pericardial effusion. Aorta does not | | appear aneurysmal. | | Lymph Nodes: There are no enlarged lymph nodes seen. | | Upper Abdomen: No significant abnormality appreciated. | | | | BODY WALL | | Soft Tissues: No signal abnormality appreciated. | | Bones: No acute or destructive osseous process seen. | | | | IMPRESSION: | | Diminished sensitivity. No gross evidence of a main pulmonary artery | | embolus seen. Lobar and segmental pulmonary arteries are not well | | assessed. If further imaging is warranted, consider correlation with | | V/Q scan. | | Bilateral pulmonary opacities, either pneumonia or edema. Follow-up to | | resolution is recommended to exclude the possibility of a neoplastic | | process. | | | | | | | | Signed by: Korina Donovan Amit | | Sign Date/Time: 10/27/2018 6:46 PM | + + + +---------+ + + | Performing | Address | City/State/Zipcode | Phone Number | | Organization | | | | + +---------+ + + | [facility] | | | | + +---------+ + + CBC no Differential (10/27/2018 13:23 PDT) + + + + + + | Component | Value | Ref Range | Performed | Pathologist | | | | | At | Signature | + + + + + + | WBC | 16.42 (H) | 3.80 - 11.00 | [facility] | | | | | K/uL | LABORATORY | | + + + + + + | RBC | 3.79 | 3.70 - 5.10 | [facility] | | | | | M/uL | LABORATORY | | + + + + + + | Hemoglobin | 11.6 | 11.3 - 15.5 | [facility] | | | | | g/dL | LABORATORY | | + + + + + + | Hematocrit | 35.0 | 34.0 - 46.0 % | [facility] | | | | | | LABORATORY | | + + + + + + | MCV | 92.3 | 80.0 - 100.0 fl | [facility] | | | | | | LABORATORY | | + + + + + + | MCH | 30.5 | 27.0 - 34.0 pg | [facility] | | | | | | LABORATORY | | + + + + + + | MCHC | 33.1 | 32.0 - 35.5 | [facility] | | | | | g/dL | LABORATORY | | + + + + + + | RDW-SD | 48.6 | 37 - 53 fl | [facility] | | | | | | LABORATORY | | + + + + + + | Platelet | 349 | 150 - 400 K/uL | [facility] | | | Count | | | LABORATORY | | + + + + + + | MPV | 7.9Comment: Testing | fl | [facility] | | | | performed at [facility], [address] | | LABORATORY | | | | [address], | | | | | | [place] [address] | | | | + + + + + + + + | Specimen | + + | Blood | + + + + + + + | Performing | Address | City/State/Zipcode | Phone Number | | Organization | | | | + + + + + | [facility] | [address] | [place] [address] | [phone] | + + + + + ECG 12 lead (10/27/2018 12:37 PDT) + + + + + + | Component | Value | Ref Range | Performed | Pathologist | | | | | At | Signature | + + + + + + | VENTRICULAR | 103 | BPM | [facility] | | | RATE EKG | | | | | + + + + + + | ATRIAL RATE | 103 | BPM | [facility] | | + + + + + + | P-R | 130 | ms | [facility] | | | INTERVAL | | | | | + + + + + + | QRS | 84 | ms | [facility] | | | DURATION | | | | | + + + + + + | Q-T | 324 | ms | [facility] | | | INTERVAL | | | | | + + + + + + | Q-T | 424 | ms | [facility] | | | INTERVAL | | | | | | (CORRECTED) | | | | | + + + + + + | P WAVE AXIS | 53 | degrees | [facility] | | + + + + + + | QRS AXIS | 46 | degrees | [facility] | | + + + + + + | T AXIS | 49 | degrees | [facility] | | + + + + + + | INTERPRETAT | Sinus | | [facility] | | | ION TEXT | tachycardiaOtherwise | | | | | | normal ECGNo previous | | | | | | ECGs availableConfirmed | | | | | | by THI CLAYTON MD ([id number]) | | | | | | on 10/27/2018 9:34:52 PM | | | | | | | | | | + + + + + + + + | Specimen | + + | | + + + + + | Narrative | Performed At | + + + | | | + + + + +---------+ + + | Performing | Address | City/State/Zipcode | Phone Number | | Organization | | | | + +---------+ + + | [facility] | | | | + +---------+ + + XR Pelvis Complete 3 + Vw (10/27/2018 11:53 PDT) + + | Specimen | + + | | + + + + + | Narrative | Performed At | + + + | PELVIS COMPLETE MINIMUM THREE VIEWS CLINICAL INFORMATION: | [facility] | | Post operative left hip. COMPARISON: XR PELVIS 1 OR 2 VW | | | (10/24/2018); XR HIP 2 VIEW LEFT (09/11/2018); FINDINGS: Bilateral | | | total hip prostheses, with 2 right and 3 left hip screws anchoring | | | the bilateral acetabular prostheses. Moderate length left femoral | | | prosthesis. No evidence of periprosthetic loosening. There | | | apparently has been interval left hip surgery. No periprosthetic | | | fracture or evidence of loosening. IMPRESSION: 1. Bilateral total | | | hip prostheses appear unremarkable. Signed by: Korina Ahn, | | | Efe Sign Date/Time: 10/27/2018 11:57 AM | | + + + + + | Procedure Note | + + | Robin, Tony Results In - 10/27/2018 1200 PDT | | PELVIS COMPLETE MINIMUM THREE VIEWS | | | | CLINICAL INFORMATION: | | Post operative left hip. | | | | COMPARISON: | | XR PELVIS 1 OR 2 VW (10/24/2018); XR HIP 2 VIEW LEFT (09/11/2018); | | | | FINDINGS: | | Bilateral total hip prostheses, with 2 right and 3 left hip screws | | anchoring the bilateral acetabular prostheses. Moderate length left | | femoral prosthesis. No evidence of periprosthetic loosening. There | | apparently has been interval left hip surgery. No periprosthetic | | fracture or evidence of loosening. | | | | IMPRESSION: | | 1. Bilateral total hip prostheses appear unremarkable. | | | | | | | | Signed by: Korina Ahn Shawn | | Sign Date/Time: 10/27/2018 11:57 AM | + + + +---------+ + + | Performing | Address | City/State/Zipcode | Phone Number | | Organization | | | | + +---------+ + + | [facility] | | | | + +---------+ + + Hemoglobin and Hematocrit (10/25/2018 4:40 PDT) + + + + + + | Component | Value | Ref Range | Performed | Pathologist | | | | | At | Signature | + + + + + + | Hemoglobin | 12.8 | 11.3 - 15.5 | [facility] | | | | | g/dL | LABORATORY | | + + + + + + | Hematocrit | 37.7Comment: Testing | 34.0 - 46.0 % | [facility] | | | | performed at [address], [address] | | LABORATORY | | | | [address], | | | | | | [place] [address] | | | | + + + + + + + + | Specimen | + + | Blood | + + + + + + + | Performing | Address | City/State/Zipcode | Phone Number | | Organization | | | | + + + + + | 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 COMPARISON: XR ARTHROCENTESIS | | | HIP LEFT (10/18/2018); CT PELVIS WO CONTRAST (09/19/2018); | | | FINDINGS: Bilateral total hip prostheses. Status post revision | | | left total hip arthroplasty. Femoral head prosthesis is well | | | seated within the acetabular component. No displaced fracture | | | fragments. IMPRESSION: Revised left hip prosthesis is well seated | | | within the acetabular component. No unexpected postoperative | | | findings. Dictated by: Korina Gabriel George Signed by: | | | Korina Machado Michael Sign Date/Time: 10/24/2018 8:54 PM The | | | radiologist has reviewed the images and edited/approved the report. | | | For interventional procedures, the signing radiologist was present | | | for the choi portions of the exam. | | + + + + + | Procedure Note | + + | Robin, Rad Results In - 10/24/2018 2057 PDT | | PELVIS ONE VIEW | | | | CLINICAL INFORMATION: | | Status post revision left hip total hip arthroplasty. | | | | COMPARISON: | | XR ARTHROCENTESIS HIP LEFT (10/18/2018); CT PELVIS WO CONTRAST | | (09/19/2018); | | | | FINDINGS: | | Bilateral total hip prostheses. Status post revision left total hip | | arthroplasty. Femoral head prosthesis is well seated within the | | acetabular component. No displaced fracture fragments. | | | | IMPRESSION: | | Revised left hip prosthesis is well seated within the acetabular | | component. No unexpected postoperative findings. | | | | | | Dictated by: Korina Gabriel George | | | | Signed by: Korina Machado Michael | | Sign Date/Time: 10/24/2018 8:54 PM | | | | The radiologist has reviewed the images and edited/approved | | the report. For interventional procedures, the signing | | radiologist was present for the choi portions of the exam. | + + + +---------+ + + | Performing | Address | City/State/[facility] | Phone Number | | Organization | | | | + +---------+ + + | [facility] | | | | + +---------+ + + Surgical Pathology Exam (10/24/2018 16:54 PDT) + + | Specimen | + + | Tissue | + + + + + | Narrative | Performed At | + + + | SPECIMEN(S): A | [facility] | | LEFT HIP SYNOVIUM SPECIMEN SOURCE:A. LEFT HIP SYNOVIUM CLINICAL | [facility] | | HISTORY:T84.84XA (pain in prosthetic joint, initial encounter), | | | T84.098A, Z96.659 (mechanical complication of prosthetic knee implant, | | | initial encounter). FINAL PATHOLOGIC DIAGNOSIS:Synovium, left | | | hip: - Thickened, fibrotic synovium with abundant black | | | pigment (please correlate clinically) - Negative for | | | inflammation - Adjacent fibroadipose tissue also present | | | and without abnormality MICROSCOPIC EXAMINATION:Histologic sections of | | | all submitted blocks are examined by light microscopy. These | | | findings, together with the gross examination, support the pathologic | | | diagnosis. GROSS DESCRIPTION:The specimen, labeled "EP, left hip | | | synovium," is received in formalin and consists of irregular shaped | | | pink-red, fibromembranous, soft tissue fragments that measure 4.5 x | | | 1.8 x 1.0 cm. Sectioningthrough the specimen is unremarkable. No | | | abnormalities are grossly identified. Space Planner sections are | | | submitted in cassette (A1).JS (under the direct supervision of a | | | pathologist) The Gross Description was prepared using a voice | | | recognition system. The report was reviewed for accuracy; however, | | | sound-alike word errors, addition and/or deletions may occur. If | | | there is anyquestion about this report, please contact Client | | | Services. PERFORMING LABORATORY:The professional interpretation was | | | performed by [facility], [facility], [facility] | | | [place], [place] ([employer] Person: Víctor Livingston M.D.; | | | CLIA#: [id number]).The technical component was performed by [employer] | | | [employer], [address] [place] [id number] ([employer] Person: | | | Nadiya Sharma MD; CLIA# [id number]). Diagnostician: Víctor Livingston | | | MDPathologistElectronically Signed 10/26/2018 | | | | | |Diagnostician: Víctor Livingston MD | | |Pathologist | | |Electronically Signed 10/26/2018 | | | | | | | | + + + + +---------+ + + | Performing | Address | City/State/Zipcode | Phone Number | | Organization | | | | + +---------+ + + | [facility] | | | | | [facility] | | | | + +---------+ + + Neuraxial (10/24/2018 16:44 PDT) + + + | Narrative | Performed At | + + + | Griselda Brush CRNA 10/24/2018 17:11 Neuraxial Procedure | | | Note 10/24/2018 16:00 Procedure: single-shot spinal anesthesia | | | Provider requested procedure: Eneida Indication: surgical | | | anesthesia Preprocedure check: patient identified, procedure and | | | rescue equipment checked, preevaluation including airway assessment | | | complete, risks/benefits discussed, consent obtained, timeout | | | performed, reassessment prior to procedure, monitors applied and | | | supplemental oxygen applied Patient position: sitting Preparation: | | | chlorhexidine/isopropyl alcohol, 1% lidocaine infiltration, | | | Introducer used: yes Local anesthetic infiltration volume: 3 mL | | | Procedure level: L3-4 Approach: midline Needle: pencil-point Needle | | | size: 25 g Needle length: 3.5 in Medication administered through: | | | needle Negative findings: no blood aspirated and no paresthesia | | | Positive findings: CSF aspirated Attempts: 1 LDA Ease of Procedure | | | Epidural: Moderately difficult. Free flow CSF was easy to access. | | | Despite rotation of the pencil point needle it was difficult to | | | aspirate without partial resistance. Eventually I was able to obtain | | | CSF aspiration and inject without resistance. Performing provider: | | | Griselda Brush CRNA Medications Administered FentaNYL (PF) | | | 50 mcg/mL Spinal, 20 mcg EPINEPHrine (PF) 1 mg/mL Spinal, 10 mcg | | | Date/Time: 10/24/2018 16:07 Please see anesthesia record or | | | flowsheet for vital sign documentation and see anesthesia record or | | | MAR for additional medication documentation. | | + + + + + | Procedure Note | + + | Griselda Brush, SPARE PERSON - 10/24/2018 1644 PDT Neuraxial Procedure Note10/24/2018 | | 16:00Procedure: single-shot spinal anesthesiaProvider requested procedure: | | StanfieldIndication: surgical anesthesiaPreprocedure check: patient identified, | | procedure and rescue equipment checked, preevaluation including airway assessment | | complete, risks/benefits discussed, consent obtained, timeout performed, reassessment | | prior to procedure, monitors applied and supplemental oxygen appliedPatient position: | | sittingPreparation: chlorhexidine/isopropyl alcohol, 1% lidocaine infiltration, | | Introducer used: yesLocal anesthetic infiltration volume: 3 mLProcedure level: | | L3-4Approach: midlineNeedle: pencil-pointNeedle size: 25 gNeedle length: 3.5 | | inMedication administered through: needleNegative findings: no blood aspirated and no | | paresthesiaPositive findings: CSF aspiratedAttempts: 1LDA Ease of Procedure Epidural: | | Moderately difficult. Free flow CSF was easy to access. Despite rotation of the pencil | | point needle it was difficult to aspirate without partial resistance. Eventually I was | | able to obtain CSF aspiration and inject without resistance. Performing provider: Griselda | | Carlo Brush CRNAMedications AdministeredFentaNYL (PF) 50 mcg/mL Spinal, 20 | | mcgEPINEPHrine (PF) 1 mg/mL Spinal, 10 mcgDate/Time: 10/24/2018 16:07Please see | | anesthesia record or flowsheet for vital sign documentation and see anesthesia record or | | MAR for additional medication documentation. | |Negative findings: no blood aspirated and no paresthesia | |Positive findings: CSF aspirated | |Attempts: 1 | |LDA Ease of Procedure Epidural: Moderately difficult. Free flow CSF was easy to access. Rafael pite rotation of the pencil point needle it was difficult to aspirate without partial resist ance. Eventually I was able to | |obtain CSF aspiration and inject without resistance. | |Performing provider: Griselda Brush CRNA | | | | | |Medications Administered | |FentaNYL (PF) 50 mcg/mL Spinal, 20 mcg | |EPINEPHrine (PF) 1 mg/mL Spinal, 10 mcg | |Date/Time: 10/24/2018 16:07 | | | | | |Please see anesthesia record or flowsheet for vital sign documentation and see anesthesia r ecord or MAR for additional medication documentation. | + + Culture, Tissue, Smear, with Anaerobes (10/24/2018 16:41 PDT) + + + + + + | Component | Value | Ref Range | Performed | Pathologist | | | | | At | Signature | + + + + + + | Gram Stain | NO CELLS OR ORGANISMS | | [facility] | | | Result | SEEN | | LABORATORY | | + + + + + + | RESULT | NO GROWTH 4 DAYS | | [facility] | | | | | | LABORATORY | | + + + + + + | RESULT | Testing performed at | | [facility] | | | | [facility], [address] | | LABORATORY | | | | [place] | | | | | | [id number]: Testing | | | | | | performed at [facility], [address] | | | | | | [address], | | | | | | [place] [address] | | | | + + + + + + + + | Specimen | + + | Tissue | + + + + + + + | Performing | Address | City/State/Zipcode | Phone Number | | Organization | | | | + + + + + | [facility] | [address] | [place] [address] | [phone] | + + + + + Culture, Wound, Smear, w/Anaerobe (10/24/2018 16:41 PDT) + + + + + + | Component | Value | Ref Range | Performed | Pathologist | | | | | At | Signature | + + + + + + | Special | SYNOVIAL FLUID | | [facility] | | | Requests | | | LABORATORY | | + + + + + + | Special | Testing performed at | | [facility] | | | Requests | [facility] | LABORATORY | | | | [address];[place] [address] | | | | + + + + + + | Gram Stain | WBC'S SEEN | | [facility] | | | Result | | | LABORATORY | | + + + + + + | Gram Stain | NO ORGANISMS SEEN | | [facility] | | | Result | | | LABORATORY | | + + + + + + | Gram Stain | STAIN PERFORMED ON | | [facility] | | | Result | CYTOSPIN | | LABORATORY | | + + + + + + | RESULT | NO GROWTH 4 DAYS | | [facility] | | | | | | LABORATORY | | + + + + + + | RESULT | Testing performed at | | [facility] | | | | [facility]CL, [address] [facility] | | LABORATORY | | | | [place] | | | | | | [id number]: Testing | | | | | | performed at [facility], [address] | | | | | [address] [place] | | | | | | [address] | | | | + + + + + + + + | Specimen | + + | | + + + + + + + | Performing | Address | City/State/Zipcode | Phone Number | | Organization | | | | + + + + + | [facility] | [address] | [place] [address] | [phone] | + + + + + Type and Screen (10/24/2018 13:56 PDT) + + + + + + | Component | Value | Ref Range | Performed | Pathologist | | | | | At | Signature | + + + + + + | ABO Rh | O POSITIVE | | [facility] | | | | | | LABORATORY | | + + + + + + | Antibody | NEGATIVE | | [facility] | | | Screen | | | LABORATORY | | + + + + + + | BB BAND | [id number] | | [facility] | | | | | | LABORATORY | | + + + + + + | BB BAND | Testing performed at | | [facility] | | | | [facility] LABORATORY | | | | [address];[place] [address] | | | | + + + + + + + + | Specimen | + + | Blood | + + + + + + + | Performing | Address | City/State/Zipcode | Phone Number | | Organization | | | | + + + + + | [facility] | [address] | [place] [address] | [phone] | + + + + + POCT Test, Urine, Qual (10/24/2018 13:27 PDT) + + + + + + | Component | Value | Ref Range | Performed | Pathologist | | | | | At | Signature | + + + + + + | HCG, | NEGATIVEComment: Testing | NEG | OMAR | | | Quantitativ | performed at [facility];[address] | | LABORATORY | | | [address] | [address];[place] | | | | | | [address] | | | | + + + + + + + + | Specimen | + + | | + + + + + + + | Performing | Address | City/State/Zipcode | Phone Number | | Organization | | | | + + + + + | [facility] | [address] | [place] [address] | [phone] | + + + + + Cell Count, Body Fluid (10/18/2018 15:19 PDT) + + | Specimen | + + | | + + + + + | Narrative | Performed At | + + + | FLUID TYPE SYNOVIAL | EXTERNAL LAB | | FLUID | | | COLOR PINK | | | | | | APPEARANCE | | | CLOUDY | | | RBC'S 77149 | | | TOTAL NUCLEATED | | | CELLS 29 | | | NEUTROPHILS 83 | | | | | | LYMPHOCYTES 14 | | | | | | EOSINOPHILS 3 | | | CELLS | | | COUNTED 100 | | | Testing performed at [facility];[address] [place] [address];[place] [address] | | + + + + +---------+ + + | Performing | Address | City/State/Zipcode | Phone Number | | Organization | | | | + +---------+ + + | EXTERNAL LAB | | | | + +---------+ + + Crystal Identification, Body Fluid (10/18/2018 15:19 PDT) + + | Specimen | + + | | + + + + + | Narrative | Performed At | + + + | FLUID CRYSTALS NO CRYSTALS | EXTERNAL LAB | | SEEN Testing performed at [facility];[address] [place] [address];[place] [address] | | + + + + +---------+ [...] | | | + +---------+ + + FL Asp and/or Inj Major Joint Left [...] Date/Time: 10/18/2018 3:17 PM | + + External Lab: SHAHZAD (10/06/2018 11:00 PDT) + + + + + + | Component | Value | Ref Range | Performed | Pathologist | | | | | At | Signature | + + + + + + | WBC | 7.46 | 3.80 - 11.00 | EXTERNAL | | | | | K/uL | LAB | | + + + + + + | RED CELL | 4.78 | 3.70 - 5.10 | EXTERNAL | | | COUNT | | M/uL | LAB | | + + + + + + | Hgb | 14.7 | 11.3 - 15.5 | EXTERNAL | | | | | g/dL | LAB | | + + + + + + | Hematocrit, | 43.1 | 34.0 - 46.0 % | EXTERNAL | | | POC | | | LAB | | + + + + + + | MCV | 90.0 | 80.0 - 100.0 fl | EXTERNAL | | | | | | LAB | | + + + + + + | MCH | 30.8 | 27.0 - 34.0 pg | EXTERNAL | | | | | | LAB | | + + + + + + | MCHC | 34.2 | 32.0 - 35.5 | EXTERNAL | | | | | g/dL | LAB | | + + + + + + | RDW-CV | 46.4 | 37 - 53 fl | EXTERNAL | | | | | | LAB | | + + + + + + | Platelet | 360 | 150 - 400 K/uL | EXTERNAL | | | Count | | | LAB | | | Plasma | | | | | + + + + + + | MPV | 8.0 | fl | EXTERNAL | | | | | | LAB | | + + + + + + | Differentia | AUTOMATED | | EXTERNAL | | | l Type | | | LAB | | + + + + + + | % | 56.27 | % | EXTERNAL | | | Neutrophils | | | LAB | | + + + + + + | % | 30.53 | % | EXTERNAL | | | Lymphocytes | | | LAB | | + + + + + + | % Monocytes | 8.37 | % | EXTERNAL | | | | | | LAB | | + + + + + + | % | 3.34 | % | EXTERNAL | | | Eosinophils | | | LAB | | + + + + + + | % Basophils | 1.49 | % | EXTERNAL | | | | | | LAB | | + + + + + + | Absolute | 4.20 | 1.90 - 7.40 | EXTERNAL | | | Neutrophils | | K/uL | LAB | | + + + + + + | Absolute | 2.28 | 1.00 - 3.90 | EXTERNAL | | | Lymphocytes | | K/uL | LAB | | + + + + + + | Absolute | 0.62 | 0.00 - 0.80 | EXTERNAL | | | Monocytes | | K/uL | LAB | | + + + + + + | Absolute | 0.25 | 0.00 - 0.50 | EXTERNAL | | | Eosinophils | | K/uL | LAB | | + + + + + + | Absolute | 0.11 (H)Comment: Testing | 0.00 - 0.10 | EXTERNAL | | | Basophils | performed at [facility], [address] | LAB | | | | [address], | | | | | | [place] [address] | | | | + + + + + + + + | Specimen | + + | Blood | + + + +---------+ + + | Performing | Address | City/State/Zipcode | Phone Number | | Organization | | | | + +---------+ + + | EXTERNAL LAB | | | | + +---------+ + + MRSA NAAT (10/06/2018 11:00 PDT) + + | Specimen | + + | | + + + + + | Narrative | Performed At | + + + | SOURCE | EXTERNAL LAB | | NARES(NOSE) MRSA | | | PCR NEGATIVE | | | Testing performed at [facility];[address] [facility];[place] [address] | | + + + + +---------+ + + | Performing | Address | City/State/Zipcode | Phone Number | | Organization | | | | + +---------+ + + | EXTERNAL LAB | | | | + +---------+ + + Hemoglobin A1C (10/06/2018 11:00 PDT) + + + + + + | Component | Value | Ref Range | Performed | Pathologist | | | | | At | Signature | + + + + + + | Hemoglobin | 4.5Comment: HbA1c method | 4.0 - 6.0 % | EXTERNAL | | | A1c | is certified by [facility] | | LAB | | | | and traceable to the | | | | | | DCCT reference | | | | | | method.ADA guidelines | | | | | | indicate: | | | | | | Prediabetes: 5.7 - | | | | | | 6.4 Diabetes: | | | | | | >6.4 Glycemic | | | | | | control for adults with | | | | | | diabetes: <7.0Effective | | | | | | 03/22/2018: Note New | | | | | | Method | | | | + + + + + + | Glycohemogl | 82Comment: Estimated | mg/dL | EXTERNAL | | | obin | Average Glucose | | LAB | | | (GHb),Total | calculated from | | | | | | hemoglobin A1c by use of | | | | | | the ADA recommended | | | | | | formula.Testing | | | | | | performed at [facility], [address] | | | | | [place], | | | | | | [place] [address] | | | | + + + + + + + + | Specimen | + + | Blood | + + + +---------+ + + | Performing | Address | City/State/Zipcode | Phone Number | | Organization | | | | + +---------+ + + | EXTERNAL LAB | | | | + +---------+ + + Comprehensive Metabolic Panel (10/06/2018 11:00 PDT) + + + + + + | Component | Value | Ref Range | Performed | Pathologist | | | | | At | Signature | + + + + + + | Na | 139 | 135 - 145 | EXTERNAL | | | | | mmol/L | LAB | | + + + + + + | K | 3.9 | 3.5 - 4.9 | EXTERNAL | | | | | mmol/L | LAB | | + + + + + + | Cl | 110 (H) | 99 - 109 mmol/L | EXTERNAL | | | | | | LAB | | + + + + + + | CO2 | 21 (L) | 23 - 32 mmol/L | EXTERNAL | | | | | | LAB | | + + + + + + | Anion Gap | 12 | 5 - 20 mmol/L | EXTERNAL | | | | | | LAB | | + + + + + + | Glucose, | 119 (H) | 65 - 99 mg/dL | EXTERNAL | | | Fasting | | | LAB | | + + + + + + | BUN | 13 | 8 - 25 mg/dL | EXTERNAL | | | | | | LAB | | + + + + + + | Creatinine | 0.8 | 0.50 - 1.00 | EXTERNAL | | | | | mg/dL | LAB | | + + + + + + | BUN/Creatin | 16 | | EXTERNAL | | | ine Ratio | | | LAB | | + + + + + + | Calcium | 8.5 | 8.5 - 10.5 | EXTERNAL | | | | | mg/dL | LAB | | + + + + + + | Protein, | 7.2 | 6.3 - 8.2 g/dL | EXTERNAL | | | Total | | | LAB | | + + + + + + | Albumin | 3.3 (L) | 3.6 - 5.0 g/dL | EXTERNAL | | | | | | LAB | | + + + + + + | Globulin | 3.9 | 1.3 - 4.9 g/dL | EXTERNAL | | | | | | LAB | | + + + + + + | A/G Ratio | 0.8 (L) | 1.0 - 2.4 | EXTERNAL | | | | | | LAB | | + + + + + + | Bilirubin | 0.2 | 0.1 - 1.5 mg/dL | EXTERNAL | | | Total | | | LAB | | + + + + + + | ALP, | 119 (H) | 35 - 115 U/L | EXTERNAL | | | External | | | LAB | | + + + + + + | AST | 30 | 10 - 45 U/L | EXTERNAL | | | | | | LAB | | + + + + + + | ALT | 26 | 10 - 65 U/L | EXTERNAL | | | | | | LAB | | + + + + + + | Estimated | >60Comment: GFR <60: | mL/min/1.73m2 | EXTERNAL | | | GFR | CHRONIC KIDNEY DISEASE, | | LAB | | | | IF FOUND OVER A 3 MONTH | | | | | | PERIOD.GFR <15: KIDNEY | | | | | | FAILURE.FOR | | | | | | AMERICANS, MULTIPLY THE | | | | | | CALCULATED GFR BY | | | | | | 1.210.This eGFR is | | | | | | calculated using the | | | | | | MDRD IDMS traceable | | | | | | equation.Testing | | | | | | performed at [facility], [address] | | | | | [facility], | | | | | | [place] [address] | | | | + + + + + + + + | Specimen | + + | Blood | + + + +---------+ + + | Performing | Address | City/State/Zipcode | Phone Number | | Organization | | | | + +---------+ + + | EXTERNAL LAB | | | | + +---------+ + + from Last 3 Months Insurance + +--------+ +--------+ [...] +---------+--------+ | [place]ICA[place] | MEDICA | [id number] | | [phone] | | Medica | | | ID [...] | | al/Fam | | 1971 | [id number] | [place] [address] | | | sreekanth | | | 9 (Home) | | + +--------+ +--------+ + + Advance Directives Patient has advance care planning documents, and code status on file. For more information, please contact:[facility] [place] [address] + + + + + | Code Status | Date | Date | Comments | | | Activated | Inactivated | | + + + + + | Full Code | 10/24/2018 | 11/09/2018 | | | | 21:20 | 18:02 | | + + + + +
--- OUTSIDE RECORDS SUMMARY | ~2018-12-31 | XMS | Encounter Summary ---
Demographics + + + | Address | [address] | | | [place] [address] | + + + | Home Phone | | + + + | Preferred Language | Unknown | + + + | Marital Status | | + + + | Sikhism Affiliation | Unknown | + + + | Race | Unknown | + + + | Ethnic Group | Unknown | + + + Author + + + | Author | [facility] | | | and [place] | + + + | Organization | [facility] | | | and [place] | + + + | Address | Unknown | + + + | Phone | Unavailable | + + + Support + + + + + | Name | Relationship | Address | Phone | + + + + + | Fabienne Juarez | ECON | [place] | | | | | [address] | | + + + + + Care Team Providers + +------+ + | Care Resident Care Associate Name | Role | Phone | + +------+ + | No, Physician | PCP | Unavailable | + +------+ + Encounter Details +--------+ + + + + | Date | Type | Department | Care Team | Description | +--------+ + + + + | 10/18/ | Hospital | [facility] | Conversion | | | 2019 | Encounter | [facility] | Transaction, | | | | | [address] | Provider Unknown | | | | | [address] [place], [place] | [phone] | | | | | [address] | | | | | | [phone] | | | +--------+ + + + [...] + + documented as of this encounter Medications at Time of Discharge + + + +---------+ + + | Medication | Sig | Dispensed | Refills | Start | End Date | | | | | | Date | | + + + +---------+ + + | citalopram | Take 40 mg by mouth | | 0 | 09/12/19 | | | (CELEXA) 40 mg | daily. | | | 19 | | | tablet | | | | | | + + + +---------+ + + | cloNIDine | Take 0.1 mg by mouth | | 0 | 09/12/19 | | | (CATAPRES) 0.1 mg | 2 (two) times | | | 19 | | | tablet | daily. | | | | | + + + +---------+ + + | hydrOXYzine | Take 10 mg by mouth | | 0 | 09/12/19 | | | hydrochloride | 3 (three) times | | | 19 | | | (ATARAX) 10 mg | daily as needed for | | | | | | tablet | Anxiety. | | | | | + + + +---------+ + + | acetaminophen | Take 3 tablets by | 120 | 0 | 11/10/19 | | | (TYLENOL) 325 mg | mouth 3 times daily. | tablet | | 19 | 9 | | tablet | | | | | | + + + +---------+ + + | acetaminophen | Take 3 tablets by | 120 | 0 | 11/10/19 | | | (TYLENOL) 325 mg | mouth 3 times daily. | tablet | | 19 | 9 | | tablet | | | | | | + + + +---------+ + + | acetaminophen | Take 2 tablets by | 180 | 0 | 10/05/19 | | | (TYLENOL) 500 mg | mouth every 8 | tablet | | 19 | 9 | | tablet | (eight) hours for 30 | | | | | | | days. | | | | | + + + +---------+ + + | albuterol 90 | Inhale 2 puffs into | 1 | 2 | 11/10/19 | | | mcg/puff inhaler | the lungs every 4 | Inhaler | | 19 | 9 | | | hours as needed for | | | | | | | Shortness of Breath. | | | | | + + + +---------+ + + | albuterol 90 | Inhale 2 puffs into | 1 | 2 | 10/28/19 | | | mcg/puff inhaler | the lungs every 4 | Inhaler | | 19 | 9 | | | hours as needed for | | | | | | | Shortness of Breath. | | | | | + + + +---------+ + + | | Take 3 mLs by | 360 mL | 2 | 10/28/19 | | | albuterol-ipratropiu | nebulization every 4 | | | 19 | 9 | | m 2.5-0.5 mg/3 mL | hours as needed for | | | | | | SOLN | Wheezing or | | | | | | | Shortness of Breath. | | | | | + + + +---------+ + + | aspirin 325 mg | Take 1 tablet by | 42 | 0 | 11/10/19 | | | tablet | mouth daily (with | tablet | | 19 | 9 | | | breakfast) for 42 | | | | | | | days. | | | | | + + + +---------+ + + | aspirin 325 mg | Take 1 tablet by | 42 | 0 | 10/05/19 | | | tablet | mouth daily with | tablet | | 19 | 9 | | | breakfast for 42 | | | | | | | days. | | | | | + + + +---------+ + + | celecoxib | Take 1 capsule by | 60 | 0 | 11/10/19 | | | (CELEBREX) 200 mg | mouth 2 times daily. | capsule | | 19 | 9 | | capsule | | | | | | + + + +---------+ + + | celecoxib | Take 1 capsule by | 60 | 0 | 10/28/19 | | | (CELEBREX) 200 mg | mouth 2 times daily. | capsule | | 19 | 9 | | capsule | | | | | | + + + +---------+ + + | | Disabled parking | 1 each | 0 | 07/31/20 | | | diphenoxylate-atropi | placard | | | 19 | 9 | | ne (LOMOTIL) | | | | | | | 2.5-0.025 mg per | | | | | | | tablet (ED prepack) | | | | | | + + + +---------+ + + | docusate sodium | Take 1 capsule by | 60 | 0 | 10/05/19 | | | (COLACE) 250 MG | mouth 2 (two) times | capsule | | 19 | 9 | | capsule | daily for 30 days. | | | | | + + + +---------+ + + | furosemide (LASIX) | Take 1 tablet by | 30 | 0 | 11/10/19 | | | 40 mg tablet | mouth 2 times daily. | tablet | | 19 | 9 | + + + +---------+ + + | furosemide (LASIX) | Take 1 tablet by | 30 | 0 | 11/10/19 | | | 40 mg tablet | mouth 2 times daily. | tablet | | 19 | 9 | + + + +---------+ + + | gabapentin | Take 2 capsules by | 90 | 2 | 11/10/19 | | | (NEURONTIN) 100 mg | mouth 3 times daily. | capsule | | 19 | 9 | | capsule | | | | | | + + + +---------+ + + | gabapentin | Take 2 capsules by | 90 | 2 | 10/28/19 | | | (NEURONTIN) 100 mg | mouth 3 times daily. | capsule | | 19 | 9 | | capsule | | | | | | + + + +---------+ + + | | Take 1 tablet by | 30 | 0 | 10/05/19 | | | HYDROcodone-acetamin | mouth every 12 | tablet | | 19 | 9 | | ophen (NORCO) 5-325 | (twelve) hours as | | | | | | mg per tablet | needed for Pain. | | | | | + + + +---------+ + + | morphine (MS | Take 1 tablet by | 24 | 0 | 10/28/19 | | | CONTIN) 15 mg ER | mouth every 12 | tablet | | 19 | 9 | | tablet | hours. | | | | | + + + +---------+ + + | morphine (MS | Take 1 tablet by | 24 | 0 | 10/28/19 | | | CONTIN) 15 mg ER | mouth every 12 | tablet | | 19 | 9 | | tablet | hours. | | | | | + + + +---------+ + + | nicotine | Place 1 patch onto | 30 | 2 | 11/10/19 | | | (NICODERM) 7 mg/24 | the skin Daily. | patch | | 19 | 9 | | hr | | | | | | + + + +---------+ + + | nicotine | Place 1 patch onto | 30 | 2 | 10/29/19 | | | (NICODERM) 7 mg/24 | the skin Daily. | patch | | 19 | 9 | | hr | | | | | | + + + +---------+ + + | OLANZapine | Take 1 tablet by | 60 | 0 | 11/10/19 | | | (ZYPREXA) 5 mg | mouth 2 times daily | tablet | | 19 | 9 | | tablet | for 30 days. | | | | | + + + +---------+ + + | OLANZapine | Take 1 tablet by | 60 | 0 | 11/10/19 | | | (ZYPREXA) 5 mg | mouth 2 times daily | tablet | | 19 | 9 | | tablet | for 30 days. | | | | | + + + +---------+ + + | oxyCODONE (OXY-IR) | Take 1 capsule by | 90 | 0 | 10/28/19 | | | 5 MG capsule | mouth every 4 hours | capsule | | 19 | 9 | | | as needed for Pain. | | | | | + + + +---------+ + + | oxyCODONE (OXY-IR) | Take 1 capsule by | 90 | 0 | 10/28/19 | | | 5 MG capsule | mouth every 4 hours | capsule | | 19 | 9 | | | as needed for Pain. | | | | | + + + +---------+ + + | predniSONE | Take 40 mg daily, | 40 | 0 | 11/10/19 | | | (DELTASONE) 10 mg | decrease by 10 mg | tablet | | 19 | 9 | | tablet | every 4 days until | | | | | | | out | | | | | + + + +---------+ + + | predniSONE | Take 40 mg daily, | 40 | 0 | 11/10/19 | | | (DELTASONE) 10 mg | decrease by 10 mg | tablet | | 19 | 9 | | tablet | every 4 days until | | | | | | | out | | | | | + + + +---------+ + + | senna (SENOKOT) | Take 1 tablet by | 30 | 0 | 11/10/19 | | | 8.6 mg tablet | mouth nightly for 30 | tablet | | 19 | 9 | | | days. | | | | | + + + +---------+ + + | senna (SENOKOT) | Take 1 tablet by | 30 | 0 | 11/10/19 | | | 8.6 mg tablet | mouth nightly for 30 | tablet | | 19 | 9 | | | days. | | | | | + + + +---------+ + + | topiramate | Take 25 mg by mouth | | 0 | 10/07/19 | | | (TOPAMAX) 25 MG | 2 (two) times daily. | | | 19 | 9 | | capsule | | | | | | + + + +---------+ + + | traMADol (ULTRAM) | Take 1 tablet by | 40 | 0 | 10/28/19 | | | 50 mg tablet | mouth EVERY 4 TO 6 | tablet | | 19 | 9 | | | HOURS NEEDED. | | | | | + + + +---------+ + + | traMADol (ULTRAM) | Take 1 tablet by | 40 | 0 | 10/28/19 | | | 50 mg tablet | mouth EVERY 4 TO 6 | tablet | | 19 | 9 | | | HOURS NEEDED. | | | | | + + + +---------+ + + documented as of this encounter Plan of Treatment Not on filedocumented as of this encounter Visit Diagnoses Not on filedocumented in this encounter"
--- OUTSIDE RECORDS SUMMARY | ~2018-12-31 | XMS | Encounter Summary ---
Demographics + + + | Address | [address] | | | [place] [address] | + + + | Home Phone | | + + + | Preferred Language | Unknown | + + + | Marital Status | | + + + | Gnosticist Affiliation | Unknown | + + + | Race | Unknown | + + + | Ethnic Group | Unknown | + + + Author + + + | Author | [facility] (Historical as of | | | 10-21-18) | + + + | Organization | [facility] (Historical as of | | | 10-21-18) | + + + | Address | Unknown | + + + | Phone | Unavailable | + + + Support + + + + + | Name | Relationship | Address | Phone | + + + + + | Fabienne Juarez | ECON | [place] | | | | | [address] | | + + + + + Care Team Providers + +------+ + | Care Baggage Agent Name | Role | Phone | + +------+ + | None, Per Pt | PCP | [id number] | + +------+ + Encounter Details +--------+ + + + + | Date | Type | Department | Care Team | Description | +--------+ + + + + | 10/02/ | Telephone | [facility] | Miah Monique | | | 2018 | | [facility] | MD Fab [address] | | | | | [facility] | Ray Dewitt | | | | | [address] | [place] | | | | | [place] | [address] | | | | | [address] | [phone] | | | | | [phone] | | | +--------+ + + + [...] + + + as of this encounter Plan of Treatment Not on fileas of this encounter Visit Diagnoses Not on filein this encounter"
--- OUTSIDE RECORDS SUMMARY | ~2018-12-31 | XMS | Encounter Summary ---
Demographics + + + | Address | [address] | | | [place] [address] | + + + | Home Phone [...] + | Author | [facility] | | | and [place] | + + + | Organization | [facility] | | | and [place] | + + + | Address | Unknown | + + + | Phone | Unavailable | + + + Support + + + + + | Name | Relationship | Address | Phone | + + + + + | Fabienne Juarez | ECON | [place] | | | | | [address] | | + + + + + Care Team Providers + +------+ + | Care Radiologic Technologist Chief Name | Role | Phone | + [...] + + | 11/14/ | Telephone | [facility] | Miah Monique | Medication Problem | | 2019 | | [place] [address] | | | | [address] [place], [place] | [place] | | | | | [address] | [place] [address] | | | | | [phone] | [phone] | | | | | | | [...]
--- OUTSIDE RECORDS SUMMARY | ~2018-12-31 | XMS | Encounter Summary ---
Demographics + + + | Address | [address] | | | [place] [address] | + + + | Home Phone | | + + + | Preferred Language | Unknown | + + + | Marital Status | | + + + | Mandaeism Affiliation | Unknown | + + + | Race | Unknown | + + + | Ethnic Group | Unknown | + + + Author + + + | Author | [facility] | | | and [place] | + + + | Organization | [facility] | | | and [place] | + + + | Address | Unknown | + + + | Phone | Unavailable | + + + Support + + + + + | Name | Relationship | Address | Phone | + + + + + | Fabienne Juarez | ECON | [place] | | | | | [address] | | + + + + + Care Team Providers + +------+ + | Care Tour Driver Name | Role | Phone | + +------+ + | Celestine Watters MD | PCP | | + +------+ + Reason for Referral Evaluate & Treat (Routine) + + + + + + + | Status | Reason | Specialty | Diagnoses / | Referred By | Referred To | | | | | Procedures | Contact | Contact | + + + + + + + | Pending | Specialty | Home Health | Diagnoses | Eneida | | | Review | Services | Services | Pain in | Miah MD Fab | | | | Required | | prosthetic | [address] | | | | | | joint, | [address] | | | | | | initial | [place] | | | | | | encounter | [phone] | | | | | | ([facility]) | Phone: | | | | | | Mechanical | [phone] | | | | | | complication | Fax: | | | | | | of | [phone] | | | | | | prosthetic | | | | | | | knee | | | | | | | implant, | | | | | | | initial | | | | | | | encounter | | | | | | | (HCC) | | | | | | | Mechanical | | | | | | | instability | | | | | | | of hip | | | | | | | prosthesis | | | | | | | (HCC) | | | | | | | Shortness of | | | | | | | breath | | | | | | | Morbid | | | | | | | obesity | | | | | | | ([facility]) | | | + + + + + + + Reason for Visit Auth/Cert +--------+--------+ + + + + | Status | Reason | Specialty | Diagnoses / | Referred By | Referred To | | | | | Procedures | Contact | Contact | +--------+--------+ + + + + | | | | Diagnoses | | Eneida, | | | | | Pain in | | Miah Sanon MD | | | | | prosthetic | | [address] | | | | | joint, | | [address] | | | | | initial | | [place] | | | | | encounter | | [address] Phone: | | | | | ([facility]) | | [phone] | | | | | Mechanical | | Fax: | | | | | complication | | [phone] | | | | | of | | | | | | | prosthetic | | | | | | | knee | | | | | | | implant, | | | | | | | initial | | | | | | | encounter | | | | | | | ([facility]) | | | | | | | Procedures | | | | | | | NV REVISE | | | | | | | TOTAL HIP | | | | | | | REPLACEMENT | | | | | | | | | | | | | | ARTHROPLASTY | | | | | | | REVISION | | | | | | | TOTAL KNEE | | | +--------+--------+ + + + + Encounter Details +--------+ + + + + | Date | Type | Department | Care Team | Description | +--------+ + + + + | 10/24/ | Hospital | [facility] | Miah Monique | Morbid obesity (HCC) | | 2019 - | Encounter | [facility] | MD Fab [address] | (Primary Dx); Pain | | | | CARE FLOOR [address] | in prosthetic joint, | | 11/09/ | | [address] | [place] [address] | initial encounter | | 2019 | | [place], [place] | [phone] | (HCC); Mechanical | | | | [address] | | complication of | | | | [phone] | | prosthetic knee | | | | | | implant, initial | | | | | | encounter (HCC); | | | | | | Mechanical | | | | | | instability of hip | | | | | | prosthesis (HCC); | | | | | | Shortness of breath; | | | | | | Acute respiratory | | | | | | failure with hypoxia | | | | | | (HCC) | +--------+ + + + + Social [...] + + + | Blood Pressure | 144/69 | 11/09/2018 1529 PDT | + + + + | Pulse | 90 | 11/09/20181513 PDT | + + + + | Temperature | 36.9 C (98.4 F) | 11/09/20181142 PDT | + + + + | Respiratory Rate | 18 | 11/09/20181513 PDT | + + + + | Oxygen Saturation | 93% | 11/09/20181513 PDT | + + + + | Inhaled Oxygen | - | - | | Concentration | | | + + + + | Weight | 116.5 kg (256 lb | 11/06/2018409 PDT | | | 13.4 oz) | | + + + + | Height | 152.4 cm (5') | 10/24/2018 1340 PDT | + + + + | Body Mass Index | 50.16 | 10/24/2018 1340 PDT | + + + + documented [...] + + documented as of this encounter Discharge Summaries Miah Monique MD - 11/09/2018 0549 PDT Service: Orthopedic Surgery Discharge Summary Date of Admission: 10/24/2018 Date of Discharge: 11/09/2018 Discharge Provider: Miah Monique MD Attending Provider: Miah Monique MD Treatment Team: Sandy Joseph MD; Harpal Fine MD Discharge Diagnoses: Principal Problem: Mechanical instability of hip prosthesis Active Problems: Artificial joint pain Shortness of breath Acute respiratory failure with hypoxia Morbid obesity Vitamin D deficiency Resolved Problems: * No resolved hospital problems. * Active comorbid conditions include: - asthma - obesity; morbid BMI 40+ - arthritis Procedures: Procedure(s): ARTHROPLASTY REVISION TOTAL HIP LEFT Significant Diagnostic Studies: labs: Recent Results (from the past 48 hour(s)) Basic Metabolic Panel Collection Time: 11/08/18 3:56 Result Value Ref Range Na 144 135 - 145 mmol/L K 3.7 3.5 - 4.9 mmol/L Cl 106 99 - 109 mmol/L CO2 30 23 - 32 mmol/L Anion Gap 12 5 - 20 mmol/L Glucose 87 65 - 99 mg/dL BUN 32 (H) 8 - 25 mg/dL Creatinine 0.8 0.50 - 1.00 mg/dL BUN/Creatinine Ratio 40 Calcium 8.1 (L) 8.5 - 10.5 mg/dL Estimated GFR >60 >60 mL/min/1.73m2 Magnesium Collection Time: 11/08/18 3:56 Result Value Ref Range Magnesium 2.7 (H) 1.7 - 2.4 mg/dL CBC with Differential Collection Time: 11/08/18 3:56 Result Value Ref Range WBC 14.86 (H) 3.80 - 11.00 K/uL RBC 3.60 (L) 3.70 - 5.10 M/uL Hemoglobin 10.8 (L) 11.3 - 15.5 g/dL Hematocrit 32.8 (L) 34.0 - 46.0 % MCV 91.1 80.0 - 100.0 fl MCH 30.1 27.0 - 34.0 pg MCHC 33.1 32.0 - 35.5 g/dL RDW-SD 46.8 37 - 53 fl Platelet Count 544 (H) 150 - 400 K/uL MPV 7.8 fl Diff Type AUTOMATED % Neutrophils 73.59 % % Lymphocytes 19.66 % Monocyte % 5.33 % Eosinophils % 1.27 % Basophils % 0.15 % Neutrophils, Absolute 10.94 (H) 1.90 - 7.40 K/uL Absolute Lymphocytes 2.92 1.00 - 3.90 K/uL Absolute Monocytes 0.79 0.00 - 0.80 K/uL Eosinophils, Absolute 0.19 0.00 - 0.50 K/uL Basophils, Absolute 0.02 0.00 - 0.10 K/uL Basic Metabolic Panel Collection Time: 11/09/18 4:28 Result Value Ref Range Na 142 135 - 145 mmol/L K 3.9 3.5 - 4.9 mmol/L Cl 105 99 - 109 mmol/L CO2 29 23 - 32 mmol/L Anion Gap 12 5 - 20 mmol/L Glucose 93 65 - 99 mg/dL BUN 31 (H) 8 - 25 mg/dL Creatinine 0.8 0.50 - 1.00 mg/dL BUN/Creatinine Ratio 39 Calcium 8.2 (L) 8.5 - 10.5 mg/dL Estimated GFR >60 >60 mL/min/1.73m2 Magnesium Collection Time: 11/09/18 4:28 Result Value Ref Range Magnesium 2.5 (H) 1.7 - 2.4 mg/dL CBC with Differential Collection Time: 11/09/18 4:28 Result Value Ref Range WBC 15.20 (H) 3.80 - 11.00 K/uL RBC 3.54 (L) 3.70 - 5.10 M/uL Hemoglobin 10.9 (L) 11.3 - 15.5 g/dL Hematocrit 32.1 (L) 34.0 - 46.0 % MCV 90.8 80.0 - 100.0 fl MCH 30.8 27.0 - 34.0 pg MCHC 34.0 32.0 - 35.5 g/dL RDW-SD 49.4 37 - 53 fl Platelet Count 568 (H) 150 - 400 K/uL MPV 7.8 fl Diff Type MANUAL % Segmented Neutrophils 75 % % Bands 3 % % Lymphocytes 18 % % Monocytes 4 % Neutrophils, Absolute 11.39 (H) 1.90 - 7.40 K/uL Absolute Band Neutrophils 0.46 (H) 0.00 - 0.20 K/uL Absolute Lymphocytes 2.74 1.00 - 3.90 K/uL Absolute Monocytes 0.61 0.00 - 0.80 K/uL RBC Morphology RBC AND PLT MORPHOLOGY APPEAR NORMAL BRIEF HISTORY OF PRESENTATION: Sylvie Ramsey is a 48 y.o. female who underwent a left total hip arthroplasty rev [facility], comprising of an acetabular component revision. This was performed due to failure of the polyethylene liner and destruction of the locking mechanism with associated metallosis a nd symptoms of prosthetic hip instability. HOSPITAL COURSE: Initally, the patient did well and discharge to a rehab facility was being planned, bu t her pulmonary status gradually worsened and her oxygen requirement increased. A medical co nsult in addition to a pulmonary consult was obtained for this issue. CT of the chest has de monstrated no obvious pulmonary embolism, but there are opacities consistent with pneumonia vs edema. US lower extremity negative for DVT. She has been on lasix and zosyn. Pulmonology was consulted. Eventually weaned off bipap to high flow nasal canula and now to nasal canula . During her hospital stay she had episodes of agitaitation and psychiatry was consulted. He r psychiatry RES COUNSELOR was also contacted and she was restarted on her regular medications.Her me ntal status has significantly improved since then and she has been much more calm and no ingrid caro violent. Regarding the orthopaedic procedure, she has been TTWB LLE, remained on chemica l DVT prophylaxis, and pain has been controlled. She has worked with PT and they have contin ued to recommend discharge to a S.N.F. Pending medical clearance. The patient refused admiss ion to a SNF and felt safe at home. Decision was made to discharge to home with HH The following medical issues were addressed during her prolonged hospital admission: Acute hypoxic respiratory failure -secondary to fluid overload vs aspiration pneumonia -respiratory culture mixed -echo demonstrates normal ejection fraction -pulmonary consulted -s/p6 days of zosyn (last dose11/02/18) -s/p levaquin (last dose 11/09/18) -continuelasix 40 mgpobid today -continue prednisone 40 mg daily, taper at discharge over2 weeks -currently on room air #Depression/anxiety/PTSD: -11/03/18 Discussed patient with [facility] [phone]. She has a diagnosis of PTSD and major depressive disorder with psychotic symptoms. She last saw her mental health nurse practitioner Pamela Romero on September 12. The medications that she is on there includes ce efrem 40mg daily Topimax 25 BID, hydroxyzine 50mg bid prn anxiety, clonidine 0.1 bid prn anxi ety, perphenazine 8mg bid. Our pharmacy does not have perphenazine, I have discussed with dipti nguyen about any alternatives. They have recommended converting 8mg bid of perphenazine to 5 mg bid olanzapine. -noted psych consult from 11/02/18 -mental status continues to improve, no longer hostile/violent toward healthcare staff #Leukocytosis: likely reactive 2/2 steroids #HTN:controlled, continue to monitor #Suspected ALDAIR: needs outpatient sleep study, continue with bipap for now #Nicotine usedisorder:NRT offered and patient declined, recommended smoking cessation Past Medical History: Diagnosis Date Anxiety Anxious depression Arthralgia Arthritis Asthma not using inhalers DDD (degenerative disc disease), lumbar Deliberate self-cutting history of Depression Heartburn Hemorrhage of gastrointestinal tract 2015 upper and lower due ulcers Morbid obesity with BMI of 50.0-59.9, adult (HCC) Pain in prosthetic joint (HCC) with instability Panic attacks states can be severe prior to surgeries PTSD (post-traumatic stress disorder) Past Surgical History: Procedure Laterality Date CHOLECYSTECTOMY HIP ARTHROPLASTY Right 2011 OTHER SURGICAL HISTORY LEFT OOPHORECTOMY OTHER SURGICAL HISTORY UNLISTED PROCEDURE ARTHROSCOPY OTHER SURGICAL HISTORY HARDWARE PRESENT OVARY REMOVAL Left REVISION TOTAL HIP ARTHROPLASTY Left 10/24/2018 Procedure: ARTHROPLASTY REVISION TOTAL HIP; Surgeon: Miah Monique MD; Location: [facility] MAIN OR TOTAL HIP ARTHROPLASTY Left 2014 [place] Allergies Allergen Reactions Bupropion Hives Medications Prior to Admission Medication Sig Dispense Refill [] acetaminophen (TYLENOL) 500 mg tablet Take 2 tablets by mouth every 8 (eight) hours for 30 days. 180 tablet 0 aspirin 325 mg tablet Take 1 tablet by mouth daily with breakfast for 42 days. 42 table t 0 citalopram (CELEXA) 40 mg tablet Take 40 mg by mouth daily. cloNIDine (CATAPRES) 0.1 mg tablet Take 0.1 mg by mouth 2 (two) times daily. [DISCONTINUED] diphenoxylate-atropine (LOMOTIL) 2.5-0.025 mg per tablet (ED prepack) Di sabled parking placard (Patient not taking: Reported on 10/24/2018) 1 each 0 [] docusate sodium (COLACE) 250 MG capsule Take 1 capsule by mouth 2 (two) times daily for 30 days. (Patient not taking: Reported on 10/24/2018) 60 capsule 0 [DISCONTINUED] HYDROcodone-acetaminophen (NORCO) 5-325 mg per tablet Take 1 tablet by m outh every 12 (twelve) hours as needed for Pain. (Patient not taking: Reported on 10/24/2018) 30 tablet 0 hydrOXYzine hydrochloride (ATARAX) 10 mg tablet Take 10 mg by mouth 3 (three) times farshad ly as needed for Anxiety. [DISCONTINUED] topiramate (TOPAMAX) 25 MG capsule Take 25 mg by mouth 2 (two) times farshad ly. (Patient not taking: Reported on 10/24/2018) DISCHARGE EXAM Vital Signs: BP 127/67 | Pulse 89 | Temp 36.9 C (98.4 F) (Oral) | Resp 18 | Ht 1.524 m (5') | W t 116.5 kg (256 lb 13.4 oz) | LMP 10/24/2018 (Exact Date) | SpO2 92% | ? No | BMI 50.16 kg/m Physical Exam Constitutional: She is oriented to person, place, and time. She appears well-developed and well-nourished. HENT: Head: Normocephalic and atraumatic. Eyes: Pupils are equal, round, and reactive to light. Pulmonary/Chest: Effort normal. Abdominal: Soft. Neurological: She is alert and oriented to person, place, and time. Skin: Skin is warm. Capillary refill takes less than 2 seconds. Psychiatric: She has a normal mood and affect. Left Hip Exam Muscle Strength The patient has normal left hip strength. Other Erythema: absent Scars: present Sensation: normal Pulse: present Comments: Well healed incision, no drainage DATA PLAN Principal Problem: Mechanical instability of hip prosthesis Active Problems: Artificial joint pain Shortness of breath Acute respiratory failure with hypoxia Morbid obesity Vitamin D deficiency Resolved Problems: * No resolved hospital problems. * Disposition: skilled nursing Condition: Fair Code Status: Full Code Follow up: Miah Monique MD [facility] [id number] In 4 weeks For wound re-check and xrays Discharge Medications New Medications Details acetaminophen 325 mg tablet If you were already taking this medication, take it this way instead. Take 3 tablets by mouth 3 times daily. aka: TYLENOL albuterol 90 mcg/puff inhaler Inhale 2 puffs into the lungs every 4 hours as needed for Shortness of Breath. albuterol-ipratropium 2.5-0.5 mg/3 mL Soln Take 3 mLs by nebulization every 4 hours as needed for Wheezing or Shortness of Breath. celecoxib 200 mg capsule Take 1 capsule by mouth 2 times daily. aka: CELEBREX furosemide 40 mg tablet Take 1 tablet by mouth 2 times daily. aka: LASIX gabapentin 100 mg capsule Take 2 capsules by mouth 3 times daily. aka: NEURONTIN morphine 15 mg ER tablet Take 1 tablet by mouth every 12 hours. aka: MS CONTIN nicotine 7 mg/[address] 1 patch onto the skin Daily. aka: NICODERM OLANZapine 5 mg tablet Take 1 tablet by mouth 2 times daily for 30 days. aka: zyPREXA oxyCODONE 5 MG capsule Take 1 capsule by mouth every 4 hours as needed for Pain. aka: OXY-IR predniSONE 10 mg tablet Take 40 mg daily, decrease by 10 mg every 4 days until out aka: DELTASONE senna 8.6 mg tablet Take 1 tablet by mouth nightly for 30 days. aka: SENOKOT traMADol 50 mg tablet Take 1 tablet by mouth EVERY 4 TO 6 HOURS NEEDED. aka: ULTRAM Unchanged Medications Details aspirin 325 mg tablet Take 1 tablet by mouth daily with breakfast for 42 days. citalopram 40 mg tablet Take 40 mg by mouth daily. aka: CELEXA cloNIDine 0.1 mg tablet Take 0.1 mg by mouth 2 (two) times daily. aka: CATAPRES hydrOXYzine hydrochloride 10 mg tablet Take 10 mg by mouth 3 (three) times daily as needed for Anxiety. aka: ATARAX Discontinued Medications diphenoxylate-atropine 2.5-0.025 mg per tablet (ED prepack) aka: LOMOTIL HYDROcodone-acetaminophen 5-325 mg per tablet aka: NORCO topiramate 25 MG capsule aka: TOPAMAX Details acetaminophen 500 mg tablet Ask about: Should I take this medication? Take 2 tablets by mouth every 8 (eight) hours for 30 days. aka: TYLENOL docusate sodium 250 MG capsule Ask about: Should I take this medication? Take 1 capsule by mouth 2 (two) times daily for 30 days. aka: COLACE Discharge took 30 minutes, to include final examination, discussion of admission, and prepa ration of prescriptions, instructions for on-going care, follow-up and documentation of disc harge summary. Miah Monique MD 11/09/2018 documented in this en counter Discharge Instructions Instructions Geovanna Flores RN - 11/09/2018HIP REPLACEMENT DISCHARGE INSTRUCTIONSDr. Monique's [facility] C[facility] Your bandage is waterproof, you may shower with the bandage on, but DO NOT soak the area in a bath or pool. You may remove waterproof bandage 7 days after surgery and shower without a bandage. If after 7 days you continue to have drainage, put on a clean dressing and contact Dr. Belen sherman. Your incision should NOT be draining much so if the drainage is not contained by the ban dage, contact Dr. Monique. BLOOD CLOT (DVT) PREVENTION Wear the compression stockings during the day for 6 weeks to decrease swelling and preve nt blood clots, you may remove them at night. If they are too uncomfortable, you may stop us ing them. Take the medication prescribed to you for DVT prevention (this may be aspirin or Coumadi n, Xarelto or or some other blood thinning medication) PAIN CONTROL: Pain, swelling and bruising is very normal after hip replacement surgery. Your pain should be controlled enough so you can get adequate rest perform required daily activities (transfe rring to bed or chair, using the bathroom, and home exercises) Use ice as frequently as needed for swelling and pain Make sure you are taking the pain medication regularly if needed Get enough rest ACTIVITY Use walker and remain touch down weight bearing until follow up It is possible to put your hip in a position where it is at risk of dislocation. Avoid t his by: Do not perform deep lunges do not bend at the waist more than 90 degrees do not cross your legs place a pillow between your legs at night Do not sit in a low chair Aspirin, ASA oral tablets Brand Names: Aspirtab, Aspir-Giulia, Alejandra Advanced Aspirin, Alejandra Aspirin, Alejandra Aspirin Ext ra Strength, Alejandra Aspirin Plus, Alejandra Extra Strength, Alejandra Extra Strength Plus, Alejandra Genu ine Aspirin, Alejandra Womens Aspirin, Bufferin, Bufferin Extra Strength, Bufferin Low Dose What is this medicine? ASPIRIN ( pir in) is a pain reliever. It is used to treat mild pain and fever. This medic ine is also used as directed by a doctor to prevent and to treat heart attacks, to prevent s trokes and blood clots, and to treat arthritis or inflammation. How should I use this medicine? Take this medicine by mouth with a glass of water. Follow the directions on the package or prescription label. You can take this medicine with or without food. If it upsets your stoma ch, take it with food. Do not take your medicine more often than directed. Talk to your poultry husbandry teacher regarding the use of this medicine in children. While this drug m ay be prescribed for children as young as 12 years of age for selected conditions, precautio ns do apply. Children and teenagers should not use this medicine to treat chicken pox or flu symptoms unless directed by a doctor. Patients over 65 years old may have a stronger reaction and need a smaller dose. What side effects may I notice from receiving this medicine? Side effects that you should report to your doctor or health adult care manager as soon as p ossible: allergic reactions like skin rash, itching or hives, swelling of the face, lips, or tong ue breathing problems changes in hearing, ringing in the ears confusion general ill feeling or flu-like symptoms pain on swallowing redness, blistering, peeling or loosening of the skin, including inside the mouth or nos e signs and symptoms of bleeding such as bloody or black, tarry stools; red or dark-brown urine; spitting up blood or brown material that looks like coffee grounds; red spots on the skin; unusual bruising or bleeding from the eye, gums, or nose trouble passing urine or change in the amount of urine unusually weak or tired yellowing of the eyes or skin Side effects that usually do not require medical attention (report to your doctor or health adult care manager if they continue or are bothersome): diarrhea or constipation headache nausea, vomiting stomach gas, heartburn What may interact with this medicine? Do not take this medicine with any of the following medications: cidofovir ketorolac probenecid This medicine may also interact with the following medications: alcohol alendronate bismuth subsalicylate flavocoxid herbal supplements like feverfew, garlic, [place], ginkgo biloba, horse chestnut medicines for diabetes or glaucoma like acetazolamide, methazolamide medicines for gout medicines that treat or prevent blood clots like enoxaparin, heparin, ticlopidine, warfa rin other aspirin and aspirin-like medicines NSAIDs, medicines for pain and inflammation, like ibuprofen or naproxen pemetrexed sulfinpyrazone varicella live vaccine What if I miss a dose? If you are taking this medicine on a regular schedule and miss a dose, take it as soon as y ou can. If it is almost time for your next dose, take only that dose. Do not take double or extra doses. Where should I keep my medicine? Keep out of the reach of children. Store at room temperature between 15 and 30 degrees C (59 and 86 degrees F). Protect from h eat and moisture. Do not use this medicine if it has a strong vinegar smell. Throw away any unused medicine after the expiration date. What should I tell my health care provider before I take this medicine? They need to know if you have any of these conditions: anemia asthma bleeding problems child with chickenpox, the flu, or other viral infection diabetes gout if you frequently drink alcohol containing drinks kidney disease liver disease low level of vitamin K lupus smoke tobacco stomach ulcers or other problems an unusual or allergic reaction to aspirin, tartrazine dye, other medicines, dyes, or pr eservatives or trying to get breast-feeding What should I watch for while using this medicine? If you are treating yourself for pain, tell your doctor or health adult care manager if the pain lasts more than 10 days, if it gets worse, or if there is a new or different kind of pa in. Tell your doctor if you see redness or swelling. Also, check with your doctor if you hav e a fever that lasts for more than 3 days. Only take this medicine to prevent heart attacks or blood clotting if prescribed by your doctor or health adult care manager. Do not take aspirin or aspirin-like medicines with this medicine. Too much aspirin can be d angerous. Always read the labels carefully. This medicine can irritate your stomach or cause bleeding problems. Do not smoke cigarettes or drink alcohol while taking this medicine. Do not lie down for 30 minutes after taking th is medicine to prevent irritation to your throat. If you are scheduled for any medical or dental procedure, tell your healthcare provider martín t you are taking this medicine. You may need to stop taking this medicine before the procedu re. This medicine may be used to treat migraines. If you take migraine medicines for 10 or more days a month, your migraines may get worse. Keep a diary of headache days and medicine use. Contact your healthcare professional if your migraine attacks occur more frequently. NOTE:This sheet is a summary. It may not cover all possible information. If you have questi ons about this medicine, talk to your doctor, pharmacist, or health care provider. Copyright 2019 [employer] Albuterol inhalation aerosol Brand Names: Proair HFA, Proventil, Proventil HFA, Respirol, Ventolin, Ventolin HFA What is this medicine? ALBUTEROL (al BYOO ter ole) is a bronchodilator. It helps open up the airways in your lungs to make it easier to breathe. This medicine is used to treat and to prevent bronchospasm. How should I use this medicine? This medicine is for inhalation through the mouth. Follow the directions on your prescripti on label. Take your medicine at regular intervals. Do not use more often than directed. Make sure that you are using your inhaler correctly. Ask you doctor or health care provider if y ou have any questions. Talk to your poultry husbandry teacher regarding the use of this medicine in children. Special care may be needed. What side effects may I notice from receiving this medicine? Side effects that you should report to your doctor or health adult care manager as soon as p ossible: allergic reactions like skin rash, itching or hives, swelling of the face, lips, or tong ue breathing problems chest pain feeling faint or lightheaded, falls high blood pressure irregular heartbeat fever muscle cramps or weakness pain, tingling, numbness in the hands or feet vomiting Side effects that usually do not require medical attention (report to your doctor or health adult care manager if they continue or are bothersome): cough difficulty sleeping headache nervousness or trembling stomach upset stuffy or runny nose throat irritation unusual taste What may interact with this medicine? anti-infectives like chloroquine and pentamidine caffeine cisapride diuretics medicines for colds medicines for depression or for emotional or psychotic conditions medicines for weight loss including some herbal products methadone some antibiotics like clarithromycin, erythromycin, levofloxacin, and linezolid some heart medicines steroid hormones like dexamethasone, cortisone, hydrocortisone theophylline thyroid hormones What if I miss a dose? If you miss a dose, use it as soon as you can. If it is almost time for your next dose, use only that dose. Do not use double or extra doses. Where should I keep my medicine? Keep out of the reach of children. Store at room temperature between 15 and 30 degrees C (59 and 86 degrees F). The contents a re under pressure and may burst when exposed to heat or flame. Do not freeze. This medicine does not work as well if it is too cold. Throw away any unused medicine after the expiration date. Inhalers need to be thrown away after the labeled number of puffs have been used or b y the expiration date; whichever comes first. Ventolin HFA should be thrown away 12 months a fter removing from foil pouch. Check the instructions that come with your medicine. What should I tell my health care provider before I take this medicine? They need to know if you have any of the following conditions: diabetes heart disease or irregular heartbeat high blood pressure pheochromocytoma seizures thyroid disease an unusual or allergic reaction to albuterol, levalbuterol, sulfites, other medicines, f oods, dyes, or preservatives or trying to get breast-feeding What should I watch for while using this medicine? Tell your doctor or health adult care manager if your symptoms do not improve. Do not use ex tra albuterol. If your asthma or bronchitis gets worse while you are using this medicine, ca ll your doctor right away. If your mouth gets dry try chewing sugarless gum or sucking hard candy. Drink water as dire cted. NOTE:This sheet is a summary. It may not cover all possible information. If you have questi ons about this medicine, talk to your doctor, pharmacist, or health care provider. Copyright 2019 [employer] Albuterol; Ipratropium solution for inhalation Brand Name: David What is this medicine? ALBUTEROL; IPRATROPIUM (al BYOO ter ole; i pra TROE pee um) has two bronchodilators. It hel ps open up the airways in your lungs to make it easier to breathe. This medicine is used to treat chronic obstructive pulmonary disease (COPD). How should I use this medicine? This medicine is used in a nebulizer. Nebulizers make a liquid into an aerosol that you trinity athe in through your mouth or your mouth and nose into your lungs. You will be taught how to use your nebulizer. Follow the directions on your prescription label. Take your medicine at regular intervals. Do not use more often than directed. Talk to your poultry husbandry teacher regarding the use of this medicine in children. Special care may be needed. What side effects may I notice from receiving this medicine? Side effects that you should report to your doctor or health adult care manager as soon as p ossible: allergic reactions like skin rash, itching or hives, swelling of the face, lips, or tong ue breathing problems feeling faint or lightheaded, falls fever high blood pressure irregular heartbeat or chest pain muscle cramps or weakness pain, tingling, numbness in the hands or feet vomiting Side effects that usually do not require medical attention (report to your doctor or health adult care manager if they continue or are bothersome): blurred vision cough difficulty passing urine difficulty sleeping headache nervousness or trembling stuffy or runny nose unusual taste upset stomach What may interact with this medicine? Do not take this medicine with any of the following medications: MAOIs like Carbex, Eldepryl, Marplan, Nardil, and Parnate This medicine may also interact with the following medications: diuretics medicines for depression, anxiety, or psychotic disturbances medicines for irregular heartbeat medicines for weight loss including some herbal products methadone pimozide some medicines for blood pressure or the heart sertindole What if I miss a dose? If you miss a dose, use it as soon as you can. If it is almost time for your next dose, use only that dose. Do not use double or extra doses. Where should I keep my medicine? Keep out of the reach of children. Store at a room temperature 2 and 30 degrees C (36 to 86 degrees F). Protect from light. St ore this medicine in the protective pouch until ready to use. Throw away any unused medicine after the expiration date. What should I tell my health care provider before I take this medicine? They need to know if you have any of the following conditions: heart disease high blood pressure irregular heartbeat an unusual or allergic reaction to albuterol, ipratropium, atropine, soya protein, soybe ans or peanuts, other medicines, foods, dyes, or preservatives or trying to get breast-feeding What should I watch for while using this medicine? Tell your doctor or healthcare professional if your symptoms do not start to get better or if they get worse. If your breathing gets worse while you are using this medicine, call your doctor right away. Do not stop using your medicine unless your doctor tells you to. Your mouth may get dry. Chewing sugarless gum or sucking hard candy, and drinking plenty of water may help. Contact your doctor if the problem does not go away or is severe. You may get dizzy or have blurred vision. Do not drive, use machinery, or do anything that needs mental alertness until you know how this medicine affects you. Do not stand or sit up quickly, especially if you are an older patient. This reduces the risk of dizzy or fainting spells. NOTE:This sheet is a summary. It may not cover all possible information. If you have questi ons about this medicine, talk to your doctor, pharmacist, or health care provider. Copyright 2019 [employer] Celecoxib capsules Brand Name: Celebrex What is this medicine? CELECOXIB (sell a KOX ib) is a non-steroidal anti-inflammatory drug (NSAID). This medicine is used to treat arthritis and ankylosing spondylitis. It may be also used for pain or painf ul monthly periods. How should I use this medicine? Take this medicine by mouth with a full glass of water. Follow the directions on the prescr iption label. Take it with food if it upsets your stomach or if you take 400 mg at one time. Try to not lie down for at least 10 minutes after you take the medicine. Take the medicine at the same time each day. Do not take more medicine than you are told to take. Long-term, c ontinuous use may increase the risk of heart attack or stroke. A special MedGuide will be given to you by the pharmacist with each prescription and refill . Be sure to read this information carefully each time. Talk to your poultry husbandry teacher regarding the use of this medicine in children. Special care may be needed. What side effects may I notice from receiving this medicine? Side effects that you should report to your doctor or health adult care manager as soon as p ossible: allergic reactions like skin rash, itching or hives, swelling of the face, lips, or tong ue black or bloody stools, blood in the urine or vomit blurred vision breathing problems chest pain nausea, vomiting problems with balance, talking, walking redness, blistering, peeling or loosening of the skin, including inside the mouth unexplained weight gain or swelling unusually weak or tired yellowing of eyes, skin Side effects that usually do not require medical attention (report to your doctor or health adult care manager if they continue or are bothersome): constipation or diarrhea dizziness gas or heartburn upset stomach What may interact with this medicine? Do not take this medicine with any of the following medications: cidofovir methotrexate other NSAIDs, medicines for pain and inflammation, like ibuprofen or naproxen pemetrexed This medicine may also interact with the following medications: alcohol aspirin and aspirin-like drugs diuretics fluconazole lithium medicines for high blood pressure steroid medicines like prednisone or cortisone warfarin What if I miss a dose? If you miss a dose, take it as soon as you can. If it is almost time for your next dose, ta ke only that dose. Do not take double or extra doses. Where should I keep my medicine? Keep out of the reach of children. Store at room temperature between 15 and 30 degrees C (59 and 86 degrees F). Keep container tightly closed. Throw away any unused medicine after the expiration date. What should I tell my health care provider before I take this medicine? They need to know if you have any of these conditions: asthma coronary artery bypass graft (CABG) surgery within the past 2 weeks drink more than 3 alcohol-containing drinks a day heart disease or circulation problems like heart failure or leg edema (fluid retention) high blood pressure kidney disease liver disease stomach bleeding or ulcers an unusual or allergic reaction to celecoxib, sulfa drugs, aspirin, other NSAIDs, other medicines, foods, dyes, or preservatives or trying to get breast-feeding What should I watch for while using this medicine? Tell your doctor or health adult care manager if your pain does not get better. Talk to your doctor before taking another medicine for pain. Do not treat yourself. This medicine does not prevent heart attack or stroke. In fact, this medicine may increase the chance of a heart attack or stroke. The chance may increase with longer use of this medi cine and in people who have heart disease. If you take aspirin to prevent heart attack or st roke, talk with your doctor or health adult care manager. Do not take medicines such as ibuprofen and naproxen with this medicine. Side effects such as stomach upset, nausea, or ulcers may be more likely to occur. Many medicines available wi thout a prescription should not be taken with this medicine. This medicine can cause ulcers and bleeding in the stomach and intestines at any time durin g treatment. Ulcers and bleeding can happen without warning symptoms and can cause . NOTE:This sheet is a summary. It may not cover all possible information. If you have questi ons about this medicine, talk to your doctor, pharmacist, or health care provider. Copyright 2019 [employer] Furosemide tablets Brand Names: Active-Medicated Specimen Kit, Delone, Diuscreen, Lasix, RX Specimen Collectio n Kit, Specimen Collection Kit What is this medicine? FUROSEMIDE (fyoor [place] se mide) is a diuretic. It helps you make more urine and to lose salt and excess water from your body. This medicine is used to treat high blood pressure, and mariah ma or swelling from heart, kidney, or liver disease. How should I use this medicine? Take this medicine by mouth with a glass of water. Follow the directions on the prescriptio n label. You may take this medicine with or without food. If it upsets your stomach, take it with food or milk. Do not take your medicine more often than directed. Remember that you wi ll need to pass more urine after taking this medicine. Do not take your medicine at a time o f day that will cause you problems. Do not take at bedtime. Talk to your poultry husbandry teacher regarding the use of this medicine in children. While this drug m ay be prescribed for selected conditions, precautions do apply. What side effects may I notice from receiving this medicine? Side effects that you should report to your doctor or health adult care manager as soon as p ossible: blood in urine or stools dry mouth fever or chills hearing loss or ringing in the ears irregular heartbeat muscle pain or weakness, cramps skin rash stomach upset, pain, or nausea tingling or numbness in the hands or feet unusually weak or tired vomiting or diarrhea yellowing of the eyes or skin Side effects that usually do not require medical attention (report to your doctor or health adult care manager if they continue or are bothersome): headache loss of appetite unusual bleeding or bruising What may interact with this medicine? aspirin and aspirin-like medicines certain antibiotics chloral hydrate cisplatin cyclosporine digoxin diuretics laxatives lithium medicines for blood pressure medicines that relax muscles for surgery methotrexate NSAIDs, medicines for pain and inflammation like ibuprofen, naproxen, or indomethacin phenytoin steroid medicines like prednisone or cortisone sucralfate thyroid hormones What if I miss a dose? If you miss a dose, take it as soon as you can. If it is almost time for your next dose, ta ke only that dose. Do not take double or extra doses. Where should I keep my medicine? Keep out of the reach of children. Store at room temperature between 15 and 30 degrees C (59 and 86 degrees F). Protect from l ight. Throw away any unused medicine after the expiration date. What should I tell my health care provider before I take this medicine? They need to know if you have any of these conditions: abnormal blood electrolytes diarrhea or vomiting gout heart disease kidney disease, small amounts of urine, or difficulty passing urine liver disease thyroid disease an unusual or allergic reaction to furosemide, sulfa drugs, other medicines, foods, dyes , or preservatives or trying to get breast-feeding What should I watch for while using this medicine? Visit your doctor or health adult care manager for regular checks on your progress. Check yo ur blood pressure regularly. Ask your doctor or health adult care manager what your blood pre ssure should be, and when you should contact him or her. If you are a diabetic, check your b lood sugar as directed. You may need to be on a special diet while taking this medicine. Check with your doctor. Al so, ask how many glasses of fluid you need to drink a day. You must not get dehydrated. You may get drowsy or dizzy. Do not drive, use machinery, or do anything that needs mental alertness until you know how this drug affects you. Do not stand or sit up quickly, especial ly if you are an older patient. This reduces the risk of dizzy or fainting spells. Alcohol c an make you more drowsy and dizzy. Avoid alcoholic drinks. This medicine can make you more sensitive to the sun. Keep out of the sun. If you cannot av oid being in the sun, wear protective clothing and use sunscreen. Do not use sun lamps or ta nning beds/booths. NOTE:This sheet is a summary. It may not cover all possible information. If you have questi ons about this medicine, talk to your doctor, pharmacist, or health care provider. Copyright 2019 [employer] Gabapentin capsules or tablets Brand Names: Active-PAC with Gabapentin, Neurontin What is this medicine? GABAPENTIN (GA ba pen tin) is used to control partial seizures in adults with epilepsy. It is also used to treat certain types of nerve pain. How should I use this medicine? Take this medicine by mouth with a glass of water. Follow the directions on the prescriptio n label. You can take it with or without food. If it upsets your stomach, take it with food. Take your medicine at regular intervals. Do not take it more often than directed. Do not sto p taking except on your doctor's advice. If you are directed to break the 600 or 800 mg tablets in half as part of your dose, the ex tra half tablet should be used for the next dose. If you have not used the extra half tablet within 28 days, it should be thrown away. A special MedGuide will be given to you by the pharmacist with each prescription and refill . Be sure to read this information carefully each time. Talk to your poultry husbandry teacher regarding the use of this medicine in children. Special care may be needed. What side effects may I notice from receiving this medicine? Side effects that you should report to your doctor or health adult care manager as soon as p ossible: allergic reactions like skin rash, itching or hives, swelling of the face, lips, or tong ue worsening of mood, thoughts or actions of suicide or dying Side effects that usually do not require medical attention (report to your doctor or health adult care manager if they continue or are bothersome): constipation difficulty walking or controlling muscle movements dizziness nausea slurred speech tiredness tremors weight gain What may interact with this medicine? Do not take this medicine with any of the following medications: other gabapentin products This medicine may also interact with the following medications: alcohol antacids antihistamines for allergy, cough and cold certain medicines for anxiety or sleep certain medicines for depression or psychotic disturbances homatropine; hydrocodone naproxen narcotic medicines (opiates) for pain phenothiazines like chlorpromazine, mesoridazine, prochlorperazine, thioridazine What if I miss a dose? If you miss a dose, take it as soon as you can. If it is almost time for your next dose, ta ke only that dose. Do not take double or extra doses. Where should I keep my medicine? Keep out of reach of children. This medicine may cause accidental overdose and if it taken by other adults, children , or pets. Mix any unused medicine with a substance like cat litter or coffee grounds. Then throw the medicine away in a sealed container like a sealed bag or a coffee can with a lid. Do not use the medicine after the expiration date. Store at room temperature between 15 and 30 degrees C (59 and 86 degrees F). What should I tell my health care provider before I take this medicine? They need to know if you have any of these conditions: kidney disease suicidal thoughts, plans, or attempt; a previous suicide attempt by you or a family memb er an unusual or allergic reaction to gabapentin, other medicines, foods, dyes, or preserva tives or trying to get breast-feeding What should I watch for while using this medicine? Visit your doctor or health adult care manager for regular checks on your progress. You may want to keep a record at home of how you feel your condition is responding to treatment. You may want to share this information with your doctor or health adult care manager at each vis it. You should contact your doctor or health adult care manager if your seizures get worse or if you have any new types of seizures. Do not stop taking this medicine or any of your seiz ure medicines unless instructed by your doctor or health adult care manager. Stopping your me dicine suddenly can increase your seizures or their severity. Wear a medical identification bracelet or chain if you are taking this medicine for seizure s, and carry a card that lists all your medications. You may get drowsy, dizzy, or have blurred vision. Do not drive, use machinery, or do anyth ing that needs mental alertness until you know how this medicine affects you. To reduce dizz y or fainting spells, do not sit or stand up quickly, especially if you are an older patient . Alcohol can increase drowsiness and dizziness. Avoid alcoholic drinks. Your mouth may get dry. Chewing sugarless gum or sucking hard candy, and drinking plenty of water will help. The use of this medicine may increase the chance of suicidal thoughts or actions. Pay speci al attention to how you are responding while on this medicine. Any worsening of mood, or tho ughts of suicide or dying should be reported to your health adult care manager right away. Women who become while using this medicine may enroll in the [place]ptic Drug Registry by calling . This registry collects informatio n about the safety of antiepileptic drug use during . NOTE:This sheet is a summary. It may not cover all possible information. If you have questi ons about this medicine, talk to your doctor, pharmacist, or health care provider. Copyright 2019 [employer] Morphine sustained-release tablets Brand Names: ARYMO ER, MORPHABOND, MS Contin, Oramorph SR What is this medicine? MORPHINE (MOR feen) is a pain reliever. It is used to treat moderate to severe pain that la sts for more than a few days. How should I use this medicine? Take this medicine by mouth with a glass of water. Do not break, crush, or chew the medicin e. Do not take a tablet that is not whole. A broken or crushed tablet can be very dangerous. You may get too much medicine. If the medicine upsets your stomach, take it with food or mi lk. Follow the directions on the prescription label. Take the medicine at the same time each day. Do not take more medicine than you are told to take. A special MedGuide will be given to you by the pharmacist with each prescription and refill . Be sure to read this information carefully each time. Talk to your poultry husbandry teacher regarding the use of this medicine in children. Special care may be needed. What side effects may I notice from receiving this medicine? Side effects that you should report to your doctor or health adult care manager as soon as p ossible: allergic reactions like skin rash, itching or hives, swelling of the face, lips, or tong ue breathing problems confusion seizures signs and symptoms of low blood pressure like dizziness; feeling faint or lightheaded, f alls; unusually weak or tired trouble passing urine or change in the amount of urine Side effects that usually do not require medical attention (report to your doctor or health adult care manager if they continue or are bothersome): constipation dry mouth nausea, vomiting tiredness What may interact with this medicine? This medicine may interact with the following medications: alcohol antihistamines for allergy, cough and cold atropine certain medicines for anxiety or sleep certain medicines for bladder problems like oxybutynin, tolterodine certain medicines for depression like amitriptyline, fluoxetine, sertraline certain medicines for Parkinson's disease like benztropine, trihexyphenidyl certain medicines for seizures like phenobarbital, primidone certain medicines for stomach problems like dicyclomine, hyoscyamine certain medicines for travel sickness like scopolamine cimetidine general anesthetics like halothane, isoflurane, methoxyflurane, propofol ipratropium local anesthetics like lidocaine, pramoxine, tetracaine MAOIs like Carbex, Eldepryl, Marplan, Nardil, and Parnate medicines that relax muscles for surgery other narcotic medicines for pain or cough phenothiazines like chlorpromazine, mesoridazine, prochlorperazine, thioridazine What if I miss a dose? If you miss a dose, take it as soon as you can. If it is almost time for your next dose, ta ke only that dose. Do not take double or extra doses. Where should I keep my medicine? Keep out of the reach of children. This medicine can be abused. Keep your medicine in a saf e place to protect it from theft. Do not share this medicine with anyone. Selling or giving away this medicine is dangerous and is against the law. Store at room temperature between 15 and 30 degrees C (59 and 86 degrees F). Protect from l ight. This medicine may cause harm and if it is taken by other adults, children, or pets. R eturn medicine that has not been used to an official disposal site. Contact the [facility] at [phone] or your [facility] government to find a site. If you cannot return the medicine, flush it down the toilet. Do not use the medicine after the expiration date. What should I tell my health care provider before I take this medicine? They need to know if you have any of these conditions: brain tumor drug abuse or addiction head injury heart disease if you often drink alcohol liver disease lung or breathing disease, like asthma problems urinating seizures stomach or intestine problems taken an MAOI like Carbex, Eldepryl, Marplan, Nardil, or Parnate in the last 14 days an unusual or allergic reaction to morphine, other medications, foods, dyes, or preserva tives or trying to get breast-feeding What should I watch for while using this medicine? Tell your doctor or health adult care manager if your pain does not go away, if it gets wors e, or if you have new or a different type of pain. You may develop tolerance to the medicine . Tolerance means that you will need a higher dose of the medicine for pain relief. Toleranc e is normal and is expected if you take this medicine for a long time. Do not suddenly stop taking your medicine because you may develop a severe reaction. Your b anil becomes used to the medicine. This does NOT mean you are addicted. Addiction is a behavi or related to getting and using a drug for a non-medical reason. If you have pain, you have a medical reason to take pain medicine. Your doctor will tell you how much medicine to take. If your doctor wants you to stop the medicine, the dose will be slowly lowered over time to avoid any side effects. There are different types of narcotic medicines (opiates). If you take more than one type a t the same time or if you are taking another medicine that also causes drowsiness, you may h ave more side effects. Give your health care provider a list of all medicines you use. Your doctor will tell you how much medicine to take. Do not take more medicine than directed. Eugene bonilla emergency for help if you have problems breathing or unusual sleepiness. You may get drowsy or dizzy. Do not drive, use machinery, or do anything that needs mental alertness until you know how this medicine affects you. Do not stand or sit up quickly, alethea cially if you are an older patient. This reduces the risk of dizzy or fainting spells. Alcoh ol may interfere with the effect of this medicine. Avoid alcoholic drinks. This medicine will cause constipation. Try to have a bowel movement at least every 2 to 3 d ays. If you do not have a bowel movement for 3 days, call your doctor or health care profess ional. Your mouth may get dry. Chewing sugarless gum or sucking hard candy, and drinking plenty of water may help. Contact your doctor if the problem does not go away or is severe. The tablet shell for some brands of this medicine does not dissolve. This is normal. The ta blet shell may appear whole in the stool. This is not a cause for concern. NOTE:This sheet is a summary. It may not cover all possible information. If you have questi ons about this medicine, talk to your doctor, pharmacist, or health care provider. Copyright 2019 [employer] Nicotine skin patches Brand Names: Habitrol, Nicoderm GUY What is this medicine? NICOTINE (TYLER oh teen) helps people stop smoking. The patches replace the nicotine found in cigarettes and help to decrease withdrawal effects. They are most effective when used in co mbination with a stop-smoking program. How should I use this medicine? This medicine is for use on the skin. Follow the directions that come with the patches. Fin d an area of skin on your upper arm, chest, or back that is clean, dry, greaseless, undamage d and hairless. Wash hands with plain soap and water. Do not use anything that contains aloe , lanolin or glycerin as these may prevent the patch from sticking. Dry thoroughly. Remove t he patch from the sealed pouch. Do not try to cut or trim the patch. Using your palm, press the patch firmly in place for 10 seconds to make sure that there is good contact with your s kin. After applying the patch, wash your hands. Change the patch every day, keeping to a reg ular schedule. When you apply a new patch, use a new area of skin. Wait at least 1 week befo re using the same area again. Talk to your poultry husbandry teacher regarding the use of this medicine in children. Special care may be needed. What side effects may I notice from receiving this medicine? Side effects that you should report to your doctor or health adult care manager as soon as p ossible: allergic reactions like skin rash, itching or hives, swelling of the face, lips, or tong ue breathing problems changes in hearing changes in vision chest pain cold sweats confusion fast, irregular heartbeat feeling faint or lightheaded, falls headache increased saliva skin redness that lasts more than 4 days stomach pain signs and symptoms of nicotine overdose like nausea; vomiting; dizziness; weakness; and rapid heartbeat Side effects that usually do not require medical attention (report to your doctor or health adult care manager if they continue or are bothersome): diarrhea dry mouth hiccups irritability nervousness or restlessness trouble sleeping or vivid dreams What may interact with this medicine? medicines for asthma medicines for blood pressure medicines for mental depression What if I miss a dose? If you forget to replace a patch, use it as soon as you can. Only use one patch at a time a nd do not leave on the skin for longer than directed. If a patch falls off, you can replace it, but keep to your schedule and remove the patch at the right time. Where should I keep my medicine? Keep out of the reach of children. Store at room temperature between 20 and 25 degrees C (68 and 77 degrees F). Protect from h eat and light. Store in manufacturers packaging until ready to use. Throw away unused medici ne after the expiration date. When you remove a patch, fold with sticky sides together; put in an empty opened pouch and throw away. What should I tell my health care provider before I take this medicine? They need to know if you have any of these conditions: diabetes heart disease, angina, irregular heartbeat or previous heart attack high blood pressure lung disease, including asthma overactive thyroid pheochromocytoma seizures or a history of seizures skin problems, like eczema stomach problems or ulcers an unusual or allergic reaction to nicotine, adhesives, other medicines, foods, dyes, or preservatives or trying to get breast-feeding What should I watch for while using this medicine? You should begin using the nicotine patch the day you stop smoking. It is okay if you do no t succeed at your attempt to quit and have a cigarette. You can still continue your quit att empt and keep using the product as directed. Just throw away your cigarettes and get back to your quit plan. You can keep the patch in place during swimming, bathing, and showering. If your patch fall s off during these activities, replace it. When you first apply the patch, your skin may itch or burn. This should go away soon. When you remove a patch, the skin may look red, but this should only last for a few days. Call [place] [place] [facility] doctor or health adult care manager if skin redness does not go away after 4 days, if your skin swells, or if you get a rash. If you are a diabetic and you quit smoking, the effects of insulin may be increased and you may need to reduce your insulin dose. Check with your doctor or health adult care manager ab out how you should adjust your insulin dose. If you are going to have a magnetic resonance imaging (MRI) procedure, tell your MRI techni az if you have this patch on your body. It must be removed before a MRI. NOTE:This sheet is a summary. It may not cover all possible information. If you have questi ons about this medicine, talk to your doctor, pharmacist, or health care provider. Copyright 2019 [employer] Olanzapine tablets Brand Name: Zyprexa What is this medicine? OLANZAPINE (oh CARSON za peen) is used to treat schizophrenia, psychotic disorders, and bipola r disorder. Bipolar disorder is also known as manic-depression. How should I use this medicine? Take this medicine by mouth. Swallow it with a drink of water. Follow the directions on the prescription label. Take your medicine at regular intervals. Do not take it more often than directed. Do not stop taking except on the advice of your doctor or health care professionmoshe zambrano A special MedGuide will be given to you by the pharmacist with each new prescription and re fill. Be sure to read this information carefully each time. Talk to your poultry husbandry teacher regarding the use of this medicine in children. While this drug m ay be prescribed for children as young as 13 years for selected conditions, precautions do a pply. What side effects may I notice from receiving this medicine? Side effects that you should report to your doctor or health adult care manager as soon as p ossible: allergic reactions like skin rash, itching or hives, swelling of the face, lips, or tong ue breathing problems difficulty in speaking or swallowing excessive thirst and/or hunger fast heartbeat (palpitations) fever or chills, sore throat fever with rash, swollen lymph nodes, or swelling of the face frequently needing to urinate inability to control muscle movements in the face, hands, arms, or legs painful or prolonged erections redness, blistering, peeling or loosening of the skin, including inside the mouth restlessness or need to keep moving seizures (convulsions) stiffness, spasms tremors or trembling Side effects that usually do not require medical attention (report to your doctor or health adult care manager if they continue or are bothersome): changes in sexual desire constipation drowsiness lowered blood pressure What may interact with this medicine? Do not take this medicine with any of the following medications: certain antibiotics like grepafloxacin and sparfloxacin certain phenothiazines like chlorpromazine, mesoridazine, and thioridazine cisapride clozapine droperidol halofantrine levomethadyl pimozide This medicine may also interact with the following medications: carbamazepine charcoal fluvoxamine levodopa and other medicines for Parkinson's disease medicines for diabetes medicines for high blood pressure medicines for mental depression, anxiety, other mood disorders, or sleeping problems omeprazole rifampin ritonavir tobacco from cigarettes What if I miss a dose? If you miss a dose, take it as soon as you can. If it is almost time for your next dose, ta ke only that dose. Do not take double or extra doses. Where should I keep my medicine? Keep out of the reach of children. Store at controlled room temperature between 15 and 30 degrees C (59 and 86 degrees F). Pro tect from light and moisture. Throw away any unused medicine after the expiration date. What should I tell my health care provider before I take this medicine? They need to know if you have any of these conditions: breast cancer or history of breast cancer cigarette smoker dementia diabetes mellitus, high blood sugar or a family history of diabetes difficulty swallowing glaucoma heart disease, irregular heartbeat, or previous heart attack history of brain tumor or head injury kidney or liver disease low blood pressure or dizziness when standing up Parkinson's disease prostate trouble seizures (convulsions) suicidal thoughts, plans, or attempt by you or a family member an unusual or allergic reaction to olanzapine, other medicines, foods, dyes, or preserva tives or trying to get breast-feeding What should I watch for while using this medicine? Visit your doctor or health adult care manager for regular checks on your progress. It may b e several weeks before you see the full effects of this medicine. Notify your doctor or [facility] adult care manager if your symptoms get worse, if you have new symptoms, if you are having an unusual effect from this medicine, or if you feel out of control, very discouraged or th ink you might harm yourself or others. Do not suddenly stop taking this medicine. You may need to gradually reduce the dose. Ask y our doctor or health adult care manager for advice. You may get dizzy or drowsy. Do not drive, use machinery, or do anything that needs mental alertness until you know how this medicine affects you. Do not stand or sit up quickly, alethea cially if you are an older patient. This reduces the risk of dizzy or fainting spells. Avoid alcoholic drinks. Alcohol can increase dizziness and drowsiness with olanzapine. Do not treat yourself for colds, diarrhea or allergies without asking your doctor or health adult care manager for advice. Some ingredients can increase possible side effects. Your mouth may get dry. Chewing sugarless gum or sucking hard candy, and drinking plenty of water will help. This medicine can reduce the response of your body to heat or cold. Dress pole inspector cold weat her and stay hydrated in hot weather. If possible, avoid extreme temperatures like saunas, h ot tubs, very hot or cold showers, or activities that can cause dehydration such as vigorous exercise. If you notice an increased hunger or thirst, different from your normal hunger or thirst, o r if you find that you have to urinate more frequently, you should contact your health care provider as soon as possible. You may need to have your blood sugar monitored. This medicine may cause changes in your blood sugar levels. You should monitor you blood sugar frequently if you have diabetes. If you smoke, tell your doctor if you notice this medicine is not working well for you. Rubén k to your doctor if you are a smoker or if you decide to stop smoking. NOTE:This sheet is a summary. It may not cover all possible information. If you have questi ons about this medicine, talk to your doctor, pharmacist, or health care provider. Copyright 2019 [employer] Oxycodone tablets or capsules Brand Names: Dazidox, Endocodone, Oxaydo, OxyIR, Percolone, Roxicodone, Roxybond What is this medicine? OXYCODONE (ox i KOE done) is a pain reliever. It is used to treat moderate to severe pain. How should I use this medicine? Take this medicine by mouth with a glass of water. Follow the directions on the prescriptio n label. You can take it with or without food. If it upsets your stomach, take it with food. Take your medicine at regular intervals. Do not take it more often than directed. Do not st op taking except on your doctor's advice. Some brands of this medicine, like Oxecta, have special instructions. Ask your doctor or armacist if these directions are for you: Do not cut, crush or chew this medicine. Swallow o nly one tablet at a time. Do not wet, soak, or lick the tablet before you take it. A special MedGuide will be given to you by the pharmacist with each prescription and refill . Be sure to read this information carefully each time. Talk to your poultry husbandry teacher regarding the use of this medicine in children. Special care may be needed. What side effects may I notice from receiving this medicine? Side effects that you should report to your doctor or health adult care manager as soon as p ossible: allergic reactions like skin rash, itching or hives, swelling of the face, lips, or tong ue breathing problems confusion signs and symptoms of low blood pressure like dizziness; feeling faint or lightheaded, f alls; unusually weak or tired trouble passing urine or change in the amount of urine trouble swallowing Side effects that usually do not require medical attention (report to your doctor or health adult care manager if they continue or are bothersome): constipation dry mouth nausea, vomiting tiredness What may interact with this medicine? This medicine may interact with the following medications: alcohol antihistamines for allergy, cough and cold antiviral medicines for HIV or AIDS atropine certain antibiotics like clarithromycin, erythromycin, linezolid, rifampin certain medicines for anxiety or sleep certain medicines for bladder problems like oxybutynin, tolterodine certain medicines for depression like amitriptyline, fluoxetine, sertraline certain medicines for fungal infections like ketoconazole, itraconazole, voriconazole certain medicines for migraine headache like almotriptan, eletriptan, frovatriptan, eric triptan, rizatriptan, sumatriptan, zolmitriptan certain medicines for nausea or vomiting like dolasetron, ondansetron, palonosetron certain medicines for Parkinson's disease like benztropine, trihexyphenidyl certain medicines for seizures like phenobarbital, phenytoin, primidone certain medicines for stomach problems like dicyclomine, hyoscyamine certain medicines for travel sickness like scopolamine diuretics general anesthetics like halothane, isoflurane, methoxyflurane, propofol ipratropium local anesthetics like lidocaine, pramoxine, tetracaine MAOIs like Carbex, Eldepryl, Marplan, Nardil, and Parnate medicines that relax muscles for surgery methylene blue nilotinib other narcotic medicines for pain or cough phenothiazines like chlorpromazine, mesoridazine, prochlorperazine, thioridazine What if I miss a dose? If you miss a dose, take it as soon as you can. If it is almost time for your next dose, ta ke only that dose. Do not take double or extra doses. Where should I keep my medicine? Keep out of the reach of children. This medicine can be abused. Keep your medicine in a saf e place to protect it from theft. Do not share this medicine with anyone. Selling or giving away this medicine is dangerous and against the law. Store at room temperature between 15 and 30 degrees C (59 and 86 degrees F). Protect from l ight. Keep container tightly closed. This medicine may cause harm and if it is taken by other adults, children, or pets. R eturn medicine that has not been used to an official disposal site. Contact the [facility] at [phone] or your [facility] government to find a site. If you cannot return the medicine, flush it down the toilet. Do not use the medicine after the expiration date. What should I tell my health care provider before I take this medicine? They need to know if you have any of these conditions: Sean's disease brain tumor head injury heart disease history of drug or alcohol abuse problem if you often drink alcohol kidney disease liver disease lung or breathing disease, like asthma mental illness pancreatic disease seizures thyroid disease an unusual or allergic reaction to oxycodone, codeine, hydrocodone, morphine, other medi cines, foods, dyes, or preservatives or trying to get breast-feeding What should I watch for while using this medicine? Tell your doctor or health adult care manager if your pain does not go away, if it gets wors e, or if you have new or a different type of pain. You may develop tolerance to the medicine . Tolerance means that you will need a higher dose of the medicine for pain relief. Toleranc e is normal and is expected if you take this medicine for a long time. Do not suddenly stop taking your medicine because you may develop a severe reaction. Your b anil becomes used to the medicine. This does NOT mean you are addicted. Addiction is a behavi or related to getting and using a drug for a non-medical reason. If you have pain, you have a medical reason to take pain medicine. Your doctor will tell you how much medicine to take. If your doctor wants you to stop the medicine, the dose will be slowly lowered over time to avoid any side effects. There are different types of narcotic medicines (opiates). If you take more than one type a t the same time or if you are taking another medicine that also causes drowsiness, you may h ave more side effects. Give your health care provider a list of all medicines you use. Your doctor will tell you how much medicine to take. Do not take more medicine than directed. Eugene l emergency for help if you have problems breathing or unusual sleepiness. You may get drowsy or dizzy. Do not drive, use machinery, or do anything that needs mental alertness until you know how the medicine affects you. Do not stand or sit up quickly, espec ially if you are an older patient. This reduces the risk of dizzy or fainting spells. Alcoho l may interfere with the effect of this medicine. Avoid alcoholic drinks. This medicine will cause constipation. Try to have a bowel movement at least every 2 to 3 d ays. If you do not have a bowel movement for 3 days, call your doctor or health care profess katherine. Your mouth may get dry. Chewing sugarless gum or sucking hard candy, and drinking plenty of water may help. Contact your doctor if the problem does not go away or is severe. NOTE:This sheet is a summary. It may not cover all possible information. If you have questi ons about this medicine, talk to your doctor, pharmacist, or health care provider. Copyright 2019 [employer] Prednisone tablets Brand Names: Deltasone, Predone, Sterapred, Sterapred DS What is this medicine? PREDNISONE (PRED ni sone) is a corticosteroid. It is commonly used to treat inflammation of the skin, joints, lungs, and other organs. Common conditions treated include asthma, allerg ies, and arthritis. It is also used for other conditions, such as blood disorders and diseas es of the adrenal glands. How should I use this medicine? Take this medicine by mouth with a glass of water. Follow the directions on the prescriptio n label. Take this medicine with food. If you are taking this medicine once a day, take it i n the morning. Do not take more medicine than you are told to take. Do not suddenly stop rashard ing your medicine because you may develop a severe reaction. Your doctor will tell you how m uch medicine to take. If your doctor wants you to stop the medicine, the dose may be slowly lowered over time to avoid any side effects. Talk to your poultry husbandry teacher regarding the use of this medicine in children. Special care may be needed. What side effects may I notice from receiving this medicine? Side effects that you should report to your doctor or health adult care manager as soon as p ossible: allergic reactions like skin rash, itching or hives, swelling of the face, lips, or tong ue changes in emotions or moods changes in vision depressed mood eye pain fever or chills, cough, sore throat, pain or difficulty passing urine increased thirst swelling of ankles, feet Side effects that usually do not require medical attention (report to your doctor or health adult care manager if they continue or are bothersome): confusion, excitement, restlessness headache nausea, vomiting skin problems, acne, thin and shiny skin trouble sleeping weight gain What may interact with this medicine? Do not take this medicine with any of the following medications: metyrapone mifepristone This medicine may also interact with the following medications: aminoglutethimide amphotericin B aspirin and aspirin-like medicines barbiturates certain medicines for diabetes, like glipizide or glyburide cholestyramine cholinesterase inhibitors cyclosporine digoxin diuretics ephedrine female hormones, like estrogens and control pills isoniazid ketoconazole NSAIDS, medicines for pain and inflammation, like ibuprofen or naproxen phenytoin rifampin toxoids vaccines warfarin What if I miss a dose? If you miss a dose, take it as soon as you can. If it is almost time for your next dose, ta lk to your doctor or health adult care manager. You may need to miss a dose or take an extra dose. Do not take double or extra doses without advice. Where should I keep my medicine? Keep out of the reach of children. Store at room temperature between 15 and 30 degrees C (59 and 86 degrees F). Protect from l ight. Keep container tightly closed. Throw away any unused medicine after the expiration andrews e. What should I tell my health care provider before I take this medicine? They need to know if you have any of these conditions: Leann's syndrome diabetes glaucoma heart disease high blood pressure infection (especially a virus infection such as chickenpox, cold sores, or herpes) kidney disease liver disease mental illness myasthenia gravis osteoporosis seizures stomach or intestine problems thyroid disease an unusual or allergic reaction to lactose, prednisone, other medicines, foods, dyes, or preservatives or trying to get breast-feeding What should I watch for while using this medicine? Visit your doctor or health adult care manager for regular checks on your progress. If you a re taking this medicine over a prolonged period, carry an identification card with your name and address, the type and dose of your medicine, and your doctor's name and address. This medicine may increase your risk of getting an infection. Tell your doctor or health ca re professional if you are around anyone with measles or chickenpox, or if you develop sores or blisters that do not heal properly. If you are going to have surgery, tell your doctor or health adult care manager that you hav e taken this medicine within the last twelve months. Ask your doctor or health adult care manager about your diet. You may need to lower the amou nt of salt you eat. This medicine may affect blood sugar levels. If you have diabetes, check with your doctor o r health adult care manager before you change your diet or the dose of your diabetic medicine . NOTE:This sheet is a summary. It may not cover all possible information. If you have questi ons about this medicine, talk to your doctor, pharmacist, or health care provider. Copyright 2019 [employer] Senna tablets or capsules Brand Names: Black Draught, Ex-Lax, Cari-pily, Perdiem, Senexon, Senna, SennaGen, Senna-Lax, Senna-Tabs, Senna-Time, Sennatural, Senokot, Senokot Extra Strength, SenoSol, Uni-Cenna What is this medicine? SENNA (SEN uh) is a laxative. This medicine is used to relieve constipation. It may also be used to empty and prepare the bowel for surgery or examination. How should I use this medicine? Take this medicine by mouth with a full glass of water. Follow the directions on the packag e. Always take with plenty of water. Take exactly as directed. Do not take your medicine mor e often than directed. Talk to your poultry husbandry teacher regarding the use of this medicine in children. While this medici ne may be prescribed for children as young as 2 years for selected conditions, precautions d o apply. What side effects may I notice from receiving this medicine? Side effects that you should report to your doctor or health adult care manager as soon as p ossible: diarrhea muscle weakness nausea, vomiting unusual weight loss Side effects that usually do not require medical attention (report to your doctor or health adult care manager if they continue or are bothersome): bloating discolored urine lower stomach discomfort or cramps What may interact with this medicine? Interactions are not expected. However, this medicine may affect the time other medicines s adina in the stomach. It is best not to take this medicine within 1 to 2 hours of taking other medicines. What if I miss a dose? If you miss a dose, take it as soon as you can. If it is almost time for your next dose, ta ke only that dose. Do not take double or extra doses. Where should I keep my medicine? Keep out of the reach of children. Store at room temperature between 15 and 30 degrees C (59 and 86 degrees F). Keep container tightly closed. Throw away any unused medicine after the expiration date. What should I tell my health care provider before I take this medicine? They need to know if you have any of these conditions appendicitis stomach pain or blockage vomiting an unusual or allergic reaction to senna, other medicines, foods, dyes, or preservatives or trying to get breast-feeding What should I watch for while using this medicine? Do not use this medicine for longer than directed by your doctor or health care professiona bonilla. This medicine can be habit-forming. Long-term use can make your body depend on the laxati ve for regular bowel movements, damage the bowel, cause malnutrition, and problems with the amounts of water and salts in your body. If your constipation keeps returning, check with yo doctor or health adult care manager. NOTE:This sheet is a summary. It may not cover all possible information. If you have questi ons about this medicine, talk to your doctor, pharmacist, or health care provider. Copyright 2019 [employer] Tramadol tablets Brand Name: Ultram What is this medicine? TRAMADOL (TRA ma dole) is a pain reliever. It is used to treat moderate to severe pain in a dults. How should I use this medicine? Take this medicine by mouth with a full glass of water. Follow the directions on the prescr iption label. You can take it with or without food. If it upsets your stomach, take it with food. Do not take your medicine more often than directed. A special MedGuide will be given to you by the pharmacist with each prescription and refill . Be sure to read this information carefully each time. Talk to your poultry husbandry teacher regarding the use of this medicine in children. Special care may be needed. What side effects may I notice from receiving this medicine? Side effects that you should report to your doctor or health adult care manager as soon as p ossible: allergic reactions like skin rash, itching or hives, swelling of the face, lips, or tong ue breathing problems confusion seizures signs and symptoms of low blood pressure like dizziness; feeling faint or lightheaded, f alls; unusually weak or tired trouble passing urine or change in the amount of urine Side effects that usually do not require medical attention (report to your doctor or health adult care manager if they continue or are bothersome): constipation dry mouth nausea, vomiting tiredness What may interact with this medicine? Do not take this medication with any of the following medicines: MAOIs like Carbex, Eldepryl, Marplan, Nardil, and Parnate This medicine may also interact with the following medications: alcohol antihistamines for allergy, cough and cold certain medicines for anxiety or sleep certain medicines for depression like amitriptyline, fluoxetine, sertraline certain medicines for migraine headache like almotriptan, eletriptan, frovatriptan, eric triptan, rizatriptan, sumatriptan, zolmitriptan certain medicines for seizures like carbamazepine, oxcarbazepine, phenobarbital, primido ne certain medicines that treat or prevent blood clots like warfarin digoxin furazolidone general anesthetics like halothane, isoflurane, methoxyflurane, propofol linezolid local anesthetics like lidocaine, pramoxine, tetracaine medicines that relax muscles for surgery other narcotic medicines for pain or cough phenothiazines like chlorpromazine, mesoridazine, prochlorperazine, thioridazine procarbazine What if I miss a dose? If you miss a dose, take it as soon as you can. If it is almost time for your next dose, ta ke only that dose. Do not take double or extra doses. Where should I keep my medicine? Keep out of the reach of children. This medicine may cause accidental overdose and if it taken by other adults, children , or pets. Mix any unused medicine with a substance like cat litter or coffee grounds. Then throw the medicine away in a sealed container like a sealed bag or a coffee can with a lid. Do not use the medicine after the expiration date. Store at room temperature between 15 and 30 degrees C (59 and 86 degrees F). What should I tell my health care provider before I take this medicine? They need to know if you have any of these conditions: brain tumor depression drug abuse or addiction head injury if you frequently drink alcohol containing drinks kidney disease or trouble passing urine liver disease lung disease, asthma, or breathing problems seizures or epilepsy suicidal thoughts, plans, or attempt; a previous suicide attempt by you or a family memb er an unusual or allergic reaction to tramadol, codeine, other medicines, foods, dyes, or p reservatives or trying to get breast-feeding What should I watch for while using this medicine? Tell your doctor or health adult care manager if your pain does not go away, if it gets wors e, or if you have new or a different type of pain. You may develop tolerance to the medicine . Tolerance means that you will need a higher dose of the medicine for pain relief. Toleranc e is normal and is expected if you take this medicine for a long time. Do not suddenly stop taking your medicine because you may develop a severe reaction. Your b anil becomes used to the medicine. This does NOT mean you are addicted. Addiction is a behavi or related to getting and using a drug for a non-medical reason. If you have pain, you have a medical reason to take pain medicine. Your doctor will tell you how much medicine to take. If your doctor wants you to stop the medicine, the dose will be slowly lowered over time to avoid any side effects. There are different types of narcotic medicines (opiates). If you take more than one type a t the same time or if you are taking another medicine that also causes drowsiness, you may h ave more side effects. Give your health care provider a list of all medicines you use. Your doctor will tell you how much medicine to take. Do not take more medicine than directed. [place] emergency for help if you have problems breathing or unusual sleepiness. You may get drowsy or dizzy. Do not drive, use machinery, or do anything that needs mental alertness until you know how this medicine affects you. Do not stand or sit up quickly, alethea cially if you are an older patient. This reduces the risk of dizzy or fainting spells. Alcoh ol can increase or decrease the effects of this medicine. Avoid alcoholic drinks. You may have constipation. Try to have a bowel movement at least every 2 to 3 days. If you do not have a bowel movement for 3 days, call your doctor or health adult care manager. Your mouth may get dry. Chewing sugarless gum or sucking hard candy, and drinking plenty of water may help. Contact your doctor if the problem does not go away or is severe. NOTE:This sheet is a summary. It may not cover all possible information. If you have questi ons about this medicine, talk to your doctor, pharmacist, or health care provider. Copyright 2019 [employer] AttachmentsThe following attachments cannot be sent through Care Everywhere.Sepsis (Luxembourger )Sepsis, Understanding (Luxembourger)documented in this encounter Medications at Time of Discharge [...] mg by mouth | | 0 | 20 | | | hydrochloride | 3 (three) [...] documented as of this encounter Progress Notes Luis A Rojas RN - 11/09/2018 1553 PDTPt left via wheelchair with transport to home, IVs were removed, discharge teaching was provided and all questions addressed Electronically signed by: Luis A Rojas RN 11/09/2018 15:54 Harpal Ray MD - 11/[address] [facility] Service: Hospitalist Progress Note Pt: Sylvie Ramsey AGE/SEX: 48 y.o. female ROOM: 9119/9119-01 : 1970 PCP: No Physician on file ADMIT DATE: 10/24/2018 TODAY'S DATE: 11/09/2018 Hospital Day/Hospital Course: LOS: 16 days 48f with pmh of anxiety, depression, PTSD, morbid obesity, asthma who presented for left po sterior total hip arthroplasty revision on 10/24/18. She had difficulty with ambulation and d eveloped shortness of breath. Hospitalist was consulted. CT of the chest has demonstrated no obvious pulmonary embolism, but there are opacities consistent with pneumonia vs edema. US lower extremity negative for DVT. She has been on lasix and zosyn. Pulmonology is consulted. Eventually weaned off bipap to high flow nasal canula and now to nasal canula. During her h ospital stay she had episodes of agitaitation and psychiatry was consulted. Her psychiatry N P was also contacted and she was restarted on her regular medications.Her mental status lua s significantly improved since then and she has been much more calm and no longer violent. SUBJECTIVE: Doing well today. Now off oxygen and on room air. Continues to state she wants to go home. Denies fevers, chills, night sweats. Denies chest pain, dyspnea. Scheduled Medications: albuterol-ipratropium 3 mL Nebulization Q4H While awake calcium citrate-vitamin D 1 tablet Oral BID celecoxib 200 mg Oral BID citalopram 40 mg Oral Daily enoxaparin 40 mg Subcutaneous Daily furosemide 40 mg Oral BID (8 and 16) levoFLOXacin 750 mg Intravenous Q24H morphine 15 mg Oral 2 times per day nicotine 1 patch Transdermal Daily OLANZapine 5 mg Oral BID pantoprazole 40 mg Oral BID AC predniSONE 40 mg Oral Daily senna 8.6 mg Oral Nightly topiramate 25 mg Oral BID Continuous Infusions None PRN Medications acetaminophen, albuterol, bisacodyl, calcium carbonate, diphenhydrAMINE OR diphenhydrAM INE OR diphenhydrAMINE, docusate sodium, haloperidol lactate, HYDROcodone-acetaminophen, HYDROmorphone, hydrOXYzine hydrochloride, lactulose, magnesium hydroxide, menthol throat lo zenges, metoclopramide, metoclopramide, ondansetron, ondansetron, phenol, polyethylene glyco l, Potassium replacement - NON ICU AND Potassium AND potassium chloride AND pota ssium chloride AND potassium chloride IVPB (other volumes & diluents) AND potassium chloride IVPB (other volumes & diluents), prochlorperazine, traMADol Allergy: Allergies Allergen Reactions Bupropion Hives OBJECTIVE: Vitals: BP 127/67 | Pulse 89 | Temp 36.9 C (98.4 F) (Oral) | Resp 18 | Ht 1.524 m (5') | W t 116.5 kg (256 lb 13.4 oz) | LMP 10/24/2018 (Exact Date) | SpO2 92% | ? No | BMI 50.16 kg/m I&O Detailed Table: Intake/Output Summary (Last 24 hours) at 11/09/2018 1429 Last data filed at 11/09/2018 1009 Gross per 24 hour Intake 950 ml Output Net 950 ml Patient Vitals for the past 96 hrs: Weight 11/06/18 0410 116.5 kg (256 lb 13.4 oz) Physical Examination: GEN:obese middle aged lady, no apparent distress HEAD: normocephalic EYES: no conjunctival icterus or injection ENT: MMM, clear oropharynx, O2 NC in place NECK: supple, no cervical lymphadenpathy CV: RR at ~70 bpm, normal S1/S2, no murmurs RESP:mild expiratory wheezing, no crackles ABD: soft, NT/ND, BS+, no obvious masses/organomegaly SKIN: warm and dry, no rashes MSK: normal muscle bulk and tone PSYCH: mood is good, affect congruent NEURO: grossly non-focal LABS: BMP 142 105 31* 93 3.9 29 0.8 CaMgPhos 8.2* 2.5* 3.4 LFT 30 26 0.2 3.3* CBC 15.20* 10.9* 568* 32.1* Coag Last labs from current encounter as of 11/09/18-14:29 IMAGING: Reviewed in EPIC, no new results. PROBLEM LIST Principal Problem: Mechanical instability of hip prosthesis Active Problems: Artificial joint pain Shortness of breath Acute respiratory failure with hypoxia Morbid obesity Vitamin D deficiency Resolved Problems: * No resolved hospital problems. * ASSESSMENT & PLAN #Disposition: PT/OT have evaluated the patient and express concern over this and are recommending SNF. Migdalia henrik is currently refusing this option as 1) she is scared to lose her housing and 2) she f eels as though she is well enough to manage at home. Conversation was had today with patient and myself and Dr. Monique, orthopedics, during which patient clearly expressed desire to go home and was clearly able to describe to us repercussions of going home including that s he may fall and further hurt herself. She described having multiple roommates which would be able to help her grocery shop and get around house if necessary. Given this, Dr. Monique stated he would place home health referrals to patient. Medically I recommend patient contin ushon to take her medications as prescribed and follow up with her PCP in 1 week, mental health provider within the next 2 weeks and ortho follow up per them. #Acute hypoxic respiratory failure Resolved. Was likely secondary to fluid overload vs aspiration pneumonia. -s/p6 days of zosyn (last dose11/02/18) and s/p levaquin (last dose 11/09/18) -continuelasix 40 mgpobid -continue prednisone 40 mg daily, taper at discharge over2 weeks #Depression/anxiety/PTSD: -11/03/18 Discussed patient with [facility] [phone]. She has a diagnosis of PTSD and major depressive disorder with psychotic symptoms. She last saw her mental health nurse practitioner Pamela Romero on September 12. The medications that she is on there includes ce efrem 40mg daily Topimax 25 BID, hydroxyzine 50mg bid prn anxiety, clonidine 0.1 bid prn anxi ety, perphenazine 8mg bid. Our pharmacy does not have perphenazine, I have discussed with dipti nguyen about any alternatives. They have recommended converting 8mg bid of perphenazine to 5 mg bid olanzapine. -noted psych consult from 11/02/18 -olanzapine 5mg BID -mental status continues to improve, no longer hostile/violent toward healthcare staff #Leukocytosis: likely reactive 2/2 steroids #HTN:controlled, continue to monitor #s/p left posterior hip arthroplasty revision:per orthopedic surgery, PT/OT, pain control #Morbid obesity: recommend lifestyle interventions #Suspected ALDAIR: needs outpatient sleep study, continue with bipap for now #Nicotine usedisorder:NRT offered and patient declined, recommended smoking cessation Harpal Fine MD 14:29 11/09/2018 Portions of this chart may have been copied from previous notes for continuity of care purp ose erHarpal kincaid MD - 06/[address] [facility] Service: Hospitalist Progress Note Pt: Sylvie Ramsey AGE/SEX: 48 y.o. female ROOM: 9119/9119-01 : 1970 PCP: No Physician on file ADMIT DATE: 10/24/2018 TODAY'S DATE: 11/08/2018 Hospital Day/Hospital Course: LOS: 15 days 48f with pmh of anxiety, depression, PTSD, morbid obesity, asthma who presented for left po sterior total hip arthroplasty revision on 10/24/18. She had difficulty with ambulation and d eveloped shortness of breath. Hospitalist was consulted. CT of the chest has demonstrated no obvious pulmonary embolism, but there are opacities consistent with pneumonia vs edema. US lower extremity negative for DVT. She has been on lasix and zosyn. Pulmonology is consulted. Eventually weaned off bipap to high flow nasal canula and now to nasal canula. During her h ospital stay she had episodes of agitaitation and psychiatry was consulted. Her psychiatry N P was also contacted and she was restarted on her regular medications. Her mental status has significantly improved since then and she has been much more calm and no longer violent. SUBJECTIVE: Patient reports doing well today. She asks if she can go home. She remains on 2L O2 NC. Den ies chest pain, dyspnea. Still with some leg pain, improved with pain meds. Denies abdominal pain, N/V. Scheduled Medications: albuterol-ipratropium 3 mL Nebulization Q4H While awake calcium citrate-vitamin D 1 tablet Oral BID celecoxib 200 mg Oral BID citalopram 40 mg Oral Daily enoxaparin 40 mg Subcutaneous Daily furosemide 40 mg Oral BID (8 and 16) levoFLOXacin 750 mg Intravenous Q24H morphine 15 mg Oral 2 times per day nicotine 1 patch Transdermal Daily OLANZapine 5 mg Oral BID pantoprazole 40 mg Oral BID AC predniSONE 40 mg Oral Daily senna 8.6 mg Oral Nightly topiramate 25 mg Oral BID Continuous Infusions None PRN Medications acetaminophen, albuterol, bisacodyl, calcium carbonate, diphenhydrAMINE OR diphenhydrAM INE OR diphenhydrAMINE, docusate sodium, haloperidol lactate, HYDROcodone-acetaminophen, HYDROmorphone, hydrOXYzine hydrochloride, lactulose, magnesium hydroxide, menthol throat lo zenges, metoclopramide, metoclopramide, ondansetron, ondansetron, phenol, polyethylene glyco l, Potassium replacement - NON ICU AND Potassium AND potassium chloride AND pota ssium chloride AND potassium chloride IVPB (other volumes & diluents) AND potassium chloride IVPB (other volumes & diluents), prochlorperazine, traMADol Allergy: Allergies Allergen Reactions Bupropion Hives OBJECTIVE: Vitals: BP 108/54 | Pulse 78 | Temp 36.7 C (98 F) (Oral) | Resp 16 | Ht 1.524 m (5') | Wt 116.5 kg (256 lb 13.4 oz) | LMP 10/24/2018 (Exact Date) | SpO2 93% | ? No | BMI 50.16 kg/m I&O Detailed Table: Intake/Output Summary (Last 24 hours) at 11/08/2018 1201 Last data filed at 11/08/2018 1100 Gross per 24 hour Intake 815.05 ml Output 1150 ml Net -334.95 ml Patient Vitals for the past 96 hrs: Weight 11/06/18 0410 116.5 kg (256 lb 13.4 oz) 11/05/18 0319 122.4 kg (269 lb 13.5 oz) Physical Examination: GEN: obese middle aged lady, no apparent distress HEAD: normocephalic EYES: no conjunctival icterus or injection ENT: MMM, clear oropharynx, O2 NC in place NECK: supple, no cervical lymphadenpathy CV: RR at ~70 bpm, normal S1/S2, no murmurs RESP: mild expiratory wheezing, no crackles ABD: soft, NT/ND, BS+, no obvious masses/organomegaly SKIN: warm and dry, no rashes MSK: normal muscle bulk and tone PSYCH: mood is good, affect congruent NEURO: grossly non-focal LABS: BMP 144 106 32* 87 3.7 30 0.8 CaMgPhos 8.1* 2.7* 3.4 LFT 30 26 0.2 3.3* CBC 14.86* 10.8* 544* 32.8* Coag Last labs from current encounter as of 11/08/18-12:01 IMAGING: Reviewed in EPIC, no new results. PROBLEM LIST Principal Problem: Mechanical instability of hip prosthesis Active Problems: Artificial joint pain Shortness of breath Acute respiratory failure with hypoxia Morbid obesity Vitamin D deficiency Resolved Problems: * No resolved hospital problems. * ASSESSMENT & PLAN #Acute hypoxic respiratory failure -secondary to fluid overload vs aspiration pneumonia -respiratory culture mixed -echo demonstrates normal ejection fraction -pulmonary following -s/p 6 days of zosyn (last dose 11/02/18) -continue levaquin (last dose 11/09/18) -continue lasix 40 mg po bid today -continue prednisone 40 mg daily, taper at discharge over 2 weeks -wean O2 NC as able #Depression/anxiety/PTSD: -11/03/18 Discussed patient with [facility] [phone]. She has a diagnosis of PTSD and major depressive disorder with psychotic symptoms. She last saw her mental health nurse practitioner Pamela Romero on September 12. The medications that she is on there includes ce efrem 40mg daily Topimax 25 BID, hydroxyzine 50mg bid prn anxiety, clonidine 0.1 bid prn anxi ety, perphenazine 8mg bid. Our pharmacy does not have perphenazine, I have discussed with dipti nguyen about any alternatives. They have recommended converting 8mg bid of perphenazine to 5 mg bid olanzapine. -noted psych consult from 11/02/18 -mental status continues to improve, no longer hostile/violent toward healthcare staff #Leukocytosis: likely reactive 2/2 steroids #HTN: controlled, continue to monitor #s/p left posterior hip arthroplasty revision: per orthopedic surgery, PT/OT, pain control #Morbid obesity: recommend lifestyle interventions #Suspected ALDAIR: needs outpatient sleep study, continue with bipap for now #Nicotine use disorder: NRT offered and patient declined, recommended smoking cessation PPx: Enoxaparin Code status: Full Dispo: per primary team, orthopedics Harpal Fine MD 12:01 11/08/2018 Portions of this chart may have been copied from previous notes for continuity of care purp ose ird, Shasha Whyte RN - 11/08 0444 PDTPatient still complains of significant amounts of pain at L hip after all avai lable pain medications and other interventions such as repositioning and ambulation have bee n provided. Still requiring 2L of oxygen via NC. Ambulates fairly well with platform walker to commode. No significant events during hourly rounding. Shasha Monsalve RN eovanna Flores RN - 11/07/2018 1855 PDTEnd of shift chart check complete. Geovanna Flores RN arpal Fine MD - 11/07/[address] [facility] Service: Hospitalist Progress Note Hospital Day: 14 Patient Summary: 48f with pmh of anxiety, depression, PTSD, morbid obesity, asthma who presented for left po sterior total hip arthroplasty revision on 10/24/18. She had difficulty with ambulation and d eveloped shortness of breath. Hospitalist was consulted. CT of the chest has demonstrated no obvious pulmonary embolism, but there are opacities consistent with pneumonia vs edema. US lower extremity negative for DVT. She has been on lasix and zosyn. Pulmonology is consulted. Patient has been difficult to wean off bipap. She had episodes of agitaitation and psychiat ry was consulted. Her psychiatry RES COUNSELOR was also contacted and she was restarted on her regular medications. She has been able to be weaned to high flow nasal canula. SUBJECTIVE Reports feeling much better this morning. Denies chest pain, dyspnea. Denies lightheadednes s/dizziness. Remains on high flow nasal canula. Appetite improved. Denies anxiety. ROS All other systems reviewed and negative. OBJECTIVE Vital Signs: BP 118/63 | Pulse 73 | Temp 36.9 C (98.5 F) (Oral) | Resp 20 | Ht 1.524 m (5') | W t 116.5 kg (256 lb 13.4 oz) | LMP 10/24/2018 (Exact Date) | SpO2 95% | ? No | BMI 50.16 kg/m GEN: obese middle aged lady, no apparent distress HEAD: normocephalic EYES: no conjunctival icterus or injection ENT: MMM, clear oropharynx, O2 NC in place NECK: supple, no cervical lymphadenpathy CV: RR at ~70 bpm, normal S1/S2, no murmurs RESP: mild expiratory wheezing, no crackles ABD: soft, NT/ND, BS+, no obvious masses/organomegaly SKIN: warm and dry, no rashes MSK: normal muscle bulk and tone PSYCH: mood is good, affect congruent NEURO: grossly non-focal DATA BMP 143 106 34* 98 3.9 29 1.0 CaMgPhos 7.9* 2.5* 3.4 LFT 30 26 0.2 3.3* CBC 17.78* 11.4 532* 34.1 Coag Last labs from current encounter as of 11/07/18-14:05 Recent Labs 11/07/18 0411 PROCALCITONI 0.10 Imaging: Reviewed in [facility], no new results. PROBLEM LIST Principal Problem: Mechanical instability of hip prosthesis Active Problems: Artificial joint pain Shortness of breath Acute respiratory failure with hypoxia Morbid obesity Vitamin D deficiency Resolved Problems: * No resolved hospital problems. * IMPRESSION/PLAN: #Acute hypoxic respiratory failure -secondary to fluid overload vs aspiration pneumonia -respiratory culture mixed -echo demonstrates normal ejection fraction -pulmonary following -s/p 6 days of zosyn (last dose 11/02/18) -continue levaquin (last dose 11/09/18) -continue lasix 40 mg po bid today -continue prednisone 40 mg daily, taper at discharge over 2 weeks -wean off high flow as tolerated #Depression/anxiety/PTSD: -11/03/18 Discussed patient with [facility] [phone]. She has a diagnosis of PTSD and major depressive disorder with psychotic symptoms. She last saw her mental health nurse practitioner Pamela Romero on September 12. The medications that she is on there includes ce efrem 40mg daily Topimax 25 BID, hydroxyzine 50mg bid prn anxiety, clonidine 0.1 bid prn anxi ety, perphenazine 8mg bid. Our pharmacy does not have perphenazine, I have discussed with dipti nguyen about any alternatives. They have recommended converting 8mg bid of perphenazine to 5 mg bid olanzapine. -noted psych consult from 11/02/18 -mental status continues to improve, no longer hostile/violent toward healthcare staff #Leukocytosis: likely reactive 2/2 steroids #HTN: controlled, continue to monitor #s/p left posterior hip arthroplasty revision: per orthopedic surgery, PT/OT, pain control #Morbid obesity: recommend lifestyle interventions #Suspected ALDAIR: needs outpatient sleep study, continue with bipap for now #Nicotine use disorder: NRT offered and patient declined, recommended smoking cessation PPx: Enoxaparin Code status: Full Dispo: pending wean from high flow nasal canula Harpal Fine MD 14:05 11/07/2018 odwin Man MD - 11/07/2018 0806 PDTFormatting of this note might be different from the [facility] Service: PULMONOLOGY Progress Note Date of Admission: 10/24/2018 Reason for Consultation: Hypoxemia Requesting Physician: Dr Pruett History Obtained From: Patient and chart review CHIEF COMPLAINT: Hip surgery, L HISTORY OF PRESENT ILLNESS History per Dr. Joseph on 10/28/18 The patient is a 48 y.o. female with significant past medical history of morbid obesity, an xiety, PTSD, suspected ALDAIR, admitted for a L hip arthroplasty on 10/24/18. She who presents w ith acutely worsening hypoxemia over night, requiring up to 15L of oxygen. CTA of the chest did not show any acute PE, but does have diffuse ground glass and interstitial changes, susp icious for pulmonary edema. WBC is elevated, and she complains of increasing brownish sputum . She is short of breath and anxious currently. She was placed on PAP therapy which improved her hypoxemia. She was started on IV diuretics and IV abx to cover for aspiration pneumonia . She reports that she recently stopped smoking prior to surgery -about 1/2 a pack a day for 20 years. She also has been suspected of having ALDAIR, with night time awakenings. She denies overt aspiration in the past but does have occasional dysphagia. She denies having uncontrol led reflux. She has chronic aches and pains which have limited her ability to be active. Interval history: Subjectively feeling better. Shortness of breath improved. Not coughing at this time. Sh e remains on HFNC at 25LPM at 29% FiO2. Review of Systems Constitutional: Negative. Negative for chills, fever and malaise/fatigue. HENT: Negative. Negative for congestion, sinus pain and sore throat. Eyes: Negative. Respiratory: Negative for cough, hemoptysis, sputum production, shortness of breath, wheezi ng and stridor. Cardiovascular: Negative. Negative for leg swelling. Gastrointestinal: Negative. Negative for abdominal pain, heartburn, nausea and vomiting. Genitourinary: Negative. Musculoskeletal: Negative. Skin: Negative. Neurological: Negative. Endo/Heme/Allergies: Negative. Negative for environmental allergies. All other systems reviewed and are negative. Past Medical History: Diagnosis Date Anxiety Anxious depression Arthralgia Arthritis Asthma not using inhalers DDD (degenerative disc disease), lumbar Deliberate self-cutting history of Depression Heartburn Hemorrhage of gastrointestinal tract 2015 upper and lower due ulcers Morbid obesity with BMI of 50.0-59.9, adult (HCC) Pain in prosthetic joint (HCC) with instability Panic attacks states can be severe prior to surgeries PTSD (post-traumatic stress disorder) Past Surgical History: Procedure Laterality Date CHOLECYSTECTOMY HIP ARTHROPLASTY Right 2012 OTHER SURGICAL HISTORY LEFT OOPHORECTOMY OTHER SURGICAL HISTORY UNLISTED PROCEDURE ARTHROSCOPY OTHER SURGICAL HISTORY HARDWARE PRESENT OVARY REMOVAL Left REVISION TOTAL HIP ARTHROPLASTY Left 10/24/2018 Procedure: ARTHROPLASTY REVISION TOTAL HIP; Surgeon: Miah Monique MD; Location: [facility] MAIN OR TOTAL HIP ARTHROPLASTY Left 2014 [place] Family History Problem Relation Age of Onset Stroke Mother Heart disease Father Cancer Father Malig hypertherm Neg Hx Social History Socioeconomic History Marital status: Spouse name: Not on file Number of children: Not on file Years of education: Not on file Highest education level: Not on file Social Needs Financial resource strain: Not on file Food insecurity - worry: Not on file Food insecurity - inability: Not on file Transportation needs - medical: Not on file Transportation needs - non-medical: Not on file Occupational History Not on file Tobacco Use Smoking status: Current Every Day Smoker Packs/day: 0.50 Smokeless tobacco: Never Used Substance and Sexual Activity Alcohol use: Not Currently Drug use: Never Comment: Drug use: No Sexual activity: Not on file Other Topics Concern Not on file Social History Narrative Not on file Allergies Allergen Reactions Bupropion Hives Scheduled Medications albuterol-ipratropium 3 mL Nebulization Q4H While awake calcium citrate-vitamin D 1 tablet Oral BID celecoxib 200 mg Oral BID citalopram 40 mg Oral Daily enoxaparin 40 mg Subcutaneous Daily furosemide 40 mg Oral BID (8 and 16) levoFLOXacin 750 mg Intravenous Q24H morphine 15 mg Oral 2 times per day nicotine 1 patch Transdermal Daily OLANZapine 5 mg Oral BID pantoprazole 40 mg Oral BID AC predniSONE 40 mg Oral Daily senna 8.6 mg Oral Nightly topiramate 25 mg Oral BID Continuous Infusions PRN Medications acetaminophen, albuterol, bisacodyl, calcium carbonate, diphenhydrAMINE OR diphenhydrAM INE OR diphenhydrAMINE, docusate sodium, haloperidol lactate, HYDROcodone-acetaminophen, HYDROmorphone, hydrOXYzine hydrochloride, lactulose, magnesium hydroxide, menthol throat lo zenges, metoclopramide, metoclopramide, ondansetron, ondansetron, phenol, polyethylene glyco l, Potassium replacement - NON ICU AND Potassium AND potassium chloride AND pota ssium chloride AND potassium chloride IVPB (other volumes & diluents) AND potassium chloride IVPB (other volumes & diluents), prochlorperazine, traMADol PHYSICAL EXAM Vitals with Comments 11/07/2018 11/07/2018 11/07/2018 11/07/2018 SYSTOLIC - - - - DIASTOLIC - - - - Pulse 79 71 70 66 Pulse Comments - - - - Temp - - - - Resp - - - 18 Weight - - - - Weight Comments - - - - Height - - - - SPO2 95 94 94 96 SPO2 Comments - - - - BMI - - - - Physical Exam Constitutional: No distress. obese HENT: Head: Normocephalic. Mouth/Throat: Oropharynx is clear and moist. No oropharyngeal exudate. Eyes: Conjunctivae are normal. No scleral icterus. Cardiovascular: Normal rate, regular rhythm and normal heart sounds. No murmur heard. Pulmonary/Chest: Effort normal. No stridor. No respiratory distress. She has no wheezes. Sh e has no rales. Abdominal: Soft. There is no tenderness. Musculoskeletal: She exhibits no edema. Lymphadenopathy: She has no cervical adenopathy. Neurological: She is alert. Skin: Skin is warm. No rash noted. She is not diaphoretic. No erythema. Vitals reviewed. DATA Labs and imaging studies reviewed PROBLEM LIST Principal Problem: Mechanical instability of hip prosthesis Active Problems: Artificial joint pain Shortness of breath Acute respiratory failure with hypoxia Morbid obesity Vitamin D deficiency ASSESSMENT & PLAN A> 48F smoker, morbidly obese, s/p left hip arthroplasty with acute hypoxic respiratory jey lure with diffuse pneumonitis P> 1. Acute hypoxic respiratory failure with diffuse groundglass opacities on CT chest - this is most likely due to acute lung injury from pneumonia with some component of pulmon randee edema. - noted ANTHONY/ANCA panel which was negative hence unlikely to be autoimmune mediated - she is improving gradually - continue prednisone at 40mg daily; taper to off over 2 weeks on discharge - continue titrating O2 to keep sats 88-89%. Currently on HFNC at 25LPM, 29% FiO2. July y oxymask. - would complete 7 days of levaquin 2. Suspected ALDAIR - CPAP nightly. She needs outpatient evaluation for ALDAIR. 3. Tobacco use - needs to stop smoking - smokes 1 ppd for 20 year. 4. H/o asthma - not on inhalers at home. No wheezing currently. Code Status: Full Code Primary Care Physician: No Physician on file Godwin Man MD 11/07/2018 orter, MIGDALIA Elizalde - 11/06/[address] [facility] Service: Orthopedic Surgery Progress Note Hospital Day: LOS:Hospital Day: 14 Post-Op Day: 12 Days Post-Op status post Left TH revision Procedure: Procedure(s) (LRB): ARTHROPLASTY REVISION TOTAL HIP (Left) SUBJECTIVE Pt awake sitting in chair and watching television. She states she is still doing well and p ain is controlled. She says she has been working with PT. No orthopedic events overnight OBJECTIVE Vital Signs: Vitals: 11/06/18 0902 BP: 131/72 Pulse: 71 Resp: 22 Temp: 36.9 C (98.4 F) Exam: Left hip - Dressing clean, dry, and intact - Compartments soft - Flexion of toes and ankle - Sensation intact to light touch - Palpable dorsalis pedis pulse DATA Lab Results Component Value Date WBC 21.02 (H) 11/06/2018 HGB 11.9 11/06/2018 HCT 35.7 11/06/2018 MCV 89.2 11/06/2018 PLT 529 (H) 11/06/2018 Lab Results Component Value Date NA 142 11/06/2018 K 3.9 11/06/2018 CL 102 11/06/2018 CO2 34 (H) 11/06/2018 No results found for: INR, PROTIME Lab Results Component Value Date CRP 1.3 (H) 09/19/2018 No results found for: ESR ASSESSMENT & PLAN s/p Left TH revision, POD #12 - Continue care per hospitalist and pulmonology - Touch down weight bearing - Continue DVT prophylaxis - Continue pain management - Stable per ortho standpoint - Planned transfer to SNF MIGDALIA Thompson 11/06/2018 10:09 MIGDALIA Thompson has created this entry using [employer] and Re[employer] macros. The entry has been reviewed and there may still exist sound alike word errors. Kush Miller MD - 11/06/[address] [facility] Service: Hospitalist Progress Note Pt: Sylvie Ramsey AGE/SEX: 48 y.o. female ROOM: 9119/9119-01 : 1970 PCP: No Physician on file ADMIT DATE: 10/24/2018 TODAY'S DATE: 11/06/2018 Hospital Day/Hospital Course: LOS: 13 days 48f with pmh of anxiety, depression, PTSD, morbid obesity, asthma who presented for left po sterior total hip arthroplasty revision on 10/24/18. She had difficulty with ambulation and d eveloped shortness of breath. Hospitalist was consulted. CT of the chest has demonstrated no obvious pulmonary embolism, but there are opacities consistent with pneumonia vs edema. US lower extremity negative for DVT. She has been on lasix and zosyn. Pulmonology is consulted. Patient has been difficult to we an off bipap. She had episodes of agitaitation and psychiatry was consulted. Her psychiatry RES COUNSELOR was also contacted and she was restarted on her regular medications. She has been able to be weaned to high flow nasal canula. SUBJECTIVE: Patient seen and examined. More awake. Is calm and cooperative. She has been able to maint ain on high flow nasal canula and oxygen is being weaned. No cough at this time. Is lying f lat. No headache. No Abdominal pain, N/V or fever. No dizziness or lightheadedness. Scheduled Medications: albuterol-ipratropium 3 mL Nebulization Q4H While awake calcium citrate-vitamin D 1 tablet Oral BID celecoxib 200 mg Oral BID citalopram 40 mg Oral Daily enoxaparin 40 mg Subcutaneous Daily furosemide 40 mg Oral BID (8 and 16) levoFLOXacin 750 mg Intravenous Q24H morphine 15 mg Oral 2 times per day nicotine 1 patch Transdermal Daily OLANZapine 5 mg Oral BID pantoprazole 40 mg Oral BID AC predniSONE 40 mg Oral Daily senna 8.6 mg Oral Nightly topiramate 25 mg Oral BID Continuous Infusions PRN Medications acetaminophen, albuterol, bisacodyl, calcium carbonate, diphenhydrAMINE OR diphenhydrAM INE OR diphenhydrAMINE, docusate sodium, haloperidol lactate, HYDROcodone-acetaminophen, HYDROmorphone, hydrOXYzine hydrochloride, lactulose, magnesium hydroxide, menthol throat lo zenges, metoclopramide, metoclopramide, ondansetron, ondansetron, phenol, polyethylene glyco l, Potassium replacement - NON ICU AND Potassium AND potassium chloride AND pota ssium chloride AND potassium chloride IVPB (other volumes & diluents) AND potassium chloride IVPB (other volumes & diluents), prochlorperazine, traMADol Allergy: Allergies Allergen Reactions Bupropion Hives OBJECTIVE: Vitals: Patient Vitals for the past 24 hrs: BP Temp Temp src Pulse Resp SpO2 Weight 11/06/18 0730 67 20 98 % 11/06/18 0722 66 24 97 % 11/06/18 0410 36.7 C (98.1 F) Oral 20 116.5 kg (256 lb 13.4 oz) 11/06/18 0301 70 20 95 % 11/06/18 0200 72 95 % 11/06/18 0100 70 96 % 11/06/18 0000 77 97 % 11/05/18 2338 121/58 37 C (98.6 F) Oral 65 18 98 % 11/05/18 2330 77 16 98 % 11/05/18 2318 74 18 98 % 11/05/18 2300 73 95 % 11/05/18 2200 74 95 % 11/05/18 2100 77 94 % 11/05/18 2000 76 94 % 11/05/18 1934 93 20 96 % 11/05/18 1921 75 16 95 % 11/05/18 1916 127/66 36.6 C (97.8 F) Oral 71 22 94 % 11/05/18 1618 120/61 75 24 92 % 11/05/18 1613 120/61 73 24 94 % 11/05/18 1608 120/61 76 24 (!) 88 % 11/05/18 1528 120/61 77 20 94 % 11/05/18 1146 128/73 36.9 C (98.4 F) Oral 68 22 91 % 11/05/18 0945 128/73 11/05/18 0846 130/70 60 20 93 % 11/05/18 0839 130/70 61 20 95 % 11/05/18 0819 130/70 36.9 C (98.5 F) Oral 65 18 97 % I&O Detailed Table: Intake/Output Summary (Last 24 hours) at 11/06/2018 0802 Last data filed at 11/06/2018 0420 Gross per 24 hour Intake 1350 ml Output 3275 ml Net -1925 ml Patient Vitals for the past 96 hrs: Weight 11/06/18 0410 116.5 kg (256 lb 13.4 oz) 11/05/18 0319 122.4 kg (269 lb 13.5 oz) 11/04/18 0340 122.5 kg (270 lb 1 oz) Physical Examination: Constitutional: Awake. In no distress. HEENT: Neck supple, no JVD, non icteric sclera. Cardiovascular: Normal rate, regular rhythm. Exam reveals no appreciated gallop or frictio n rub. No murmur heard. Pulmonary/Chest: On high flow nasal canula. No wheezing noted. Breath sounds improved. Abdominal: Soft. Bowel sounds are normal. There is no tenderness. There is no rebound and no guarding. Extremeties/Musculoskeletal: Normal range of motion for patient. exhibits no tenderness. e xhibits no edema. Neurological: Alert and oriented to person, place. No cranial nerve deficit appreciated. Skin: Skin is warm and dry. No rash noted. No erythema. No pallor. Psychiatric: Has a normal mood and affect given situation. Behavior is calm today. LABS: Recent Labs Lab 11/06/1840811/05/1840411/04/18 035 WBC 21.02* 20.45* 18.65* HGB 11.9 12.6 11.9 HCT 35.7 37.6 36.6 PLT 529* 505* 421* Recent Labs Lab 11/06/1840811/05/1840411/04/18352 NA 142 141 145 K 3.9 4.5 4.5 CL 102 101 102 CO2 34* 34* 35* BUN 34* 31* 40* CALCIUM 8.8 8.4* 8.4* Phosphorus: Lab Results Component Value Date PHOS 3.4 10/31/2018 No results for input(s): LABALBU in the last 168 hours. Recent Labs Lab 11/06/1840811/05/1840411/04/18352 MG 2.7* 2.6* 2.7* No results for input(s): AMYLASE in the last 168 hours. No results for input(s): PHART, PO2ART, WLK6PRK, H6ZERWHY, BEART in the last 168 hours. No results for input(s): APTT, INR, PTT in the last 168 hours. No results for input(s): TSH in the last 168 hours. Invalid input(s): T3FREE, FREET4 No results for input(s): TROPONINT in the last 168 hours. Invalid input(s): CKTOTAL, TROPONINI, CKMBINDEX Microbiology Results (72 hrs) Procedure Component Value Units Date/Time Culture, Respiratory, Lower, Smear [[id number]] Collected: 10/29/181728 Order Status: Completed Lab Status: Final result Updated: 10/29/182024 Specimen: Body Fluid from Sputum, Expectorated Gram Stain Result GREATER THAN 10 SEC/LPF Gram Stain Result GREATER THAN 10 WBCS/LPF Gram Stain Result -- 1+ GRAM POSITIVE COCCI Gram Stain Result -- 1+ GRAM NEGATIVE RODS Gram Stain Result -- 1+ GRAM POSITIVE RODS Gram Stain Result -- 1+ GRAM NEGATIVE COCCI Gram Stain Result -- 1+ YEAST RESULT SMEAR CONTAINS GREATER THAN 10 SEC/LPF SUGGESTIVE OF POOR QUALITY SPECIMEN. SPECI MEN WILL NOT BE CULTURED OR WILL BE CULTURED BY SPECIAL REQUEST ONLY. PLEASE RECOLLECT IF C LINICALLY INDICATED. SPECIMEN WILL BE HELD 48 HOURS. RESULT Testing performed at [facility], [address] [place] [address] Comment: Testing performed at [facility], [address] [place] [address] RADIOLOGY: Recent Results (from the past 360 hour(s)) XR Pelvis 1 or 2 Vw Narrative PELVIS ONE VIEW CLINICAL INFORMATION: Status post revision left hip total hip arthroplasty. COMPARISON: XR ARTHROCENTESIS HIP LEFT (10/18/2018); CT PELVIS WO CONTRAST (09/19/2018); FINDINGS: Bilateral total hip prostheses. Status post revision left total hip arthroplasty. Femoral head prosthesis is well seated within the acetabular component. No displaced fracture fragments. IMPRESSION: Revised left hip prosthesis is well seated within the acetabular component. No unexpected postoperative findings. Dictated by: Korina Gabriel George Signed by: Korina Machado Michael Sign Date/Time: 10/24/2018 8:54 PM The radiologist has reviewed the images and edited/approved the report. For interventional procedures, the signing radiologist was present for the choi portions of the exam. XR Pelvis Complete 3 + Vw Narrative PELVIS COMPLETE MINIMUM THREE VIEWS CLINICAL INFORMATION: Post operative left hip. COMPARISON: XR PELVIS 1 OR 2 VW (10/24/2018); XR HIP 2 VIEW LEFT (09/11/2018); FINDINGS: Bilateral total hip prostheses, with 2 right and 3 left hip screws anchoring the bilateral acetabular prostheses. Moderate length left femoral prosthesis. No evidence of periprosthetic loosening. There apparently has been interval left hip surgery. No periprosthetic fracture or evidence of loosening. IMPRESSION: 1. Bilateral total hip prostheses appear unremarkable. Signed by: Korina Ahn Shawn Sign Date/Time: 10/27/2018 11:57 AM XR Chest AP Portable Narrative CHEST PORTABLE ONE VIEW CLINICAL INFORMATION: Shortness of breath COMPARISON: None FINDINGS: Bilateral perihilar congestion and diffuse interstitial opacities seen. There appears to be right paratracheal and right hilar prominence. Cardiomediastinal silhouette otherwise appears unremarkable. Osseous structures appear unremarkable. IMPRESSION: Bilateral perihilar congestion, diffuse interstitial opacities. Findings likely represent pulmonary edema, although pneumonia is also a consideration. Prominence of the right paratracheal and right hilar tissues, nonspecific. Follow-up to radiographic resolution in 6 weeks after appropriate therapy is recommended to exclude the possibility of a neoplastic process. Signed by: Korina Donovan, Gilles Sign Date/Time: 10/27/2018 5:[address] Angiogram Pulmonary w Contrast Narrative CT ANGIOGRAM PULMONARY CLINICAL INFORMATION: Shortness of breath, Tachycardia with chest discomfort. COMPARISON: XR CHEST AP PORTABLE (10/27/2018); PROCEDURE: Thin-section images of the entire chest after the administration of 100 ml Omnipaque 350 intravenous contrast. 3D MIP thin slab images and 2D multiplanar reconstructions performed. At least one of the following CT dose optimization techniques were used: Automated exposure control; Adjustment of mA and/or kV according to patient size; Use of iterative reconstruction technique. FINDINGS: PULMONARY ARTERIES: Diminished sensitivity due to combination of patient body habitus, respiratory motion artifact and beam hardening artifact. No gross evidence of a main pulmonary artery embolus seen. Lobar and segmental pulmonary arteries are not well assessed. RIGHT VENTRICLE TO LEFT VENTRICLE RATIO: Not applicable. (Maximum short axis diameter on axial image. Applicable only when pulmonary embolism present. Abnormal greater than or equal to 0.9.) CHEST Lungs, Pleura and Airways: Throughout both lungs, there are patchy airspace and ground-glass opacities seen, more prominent on the right. No pleural effusion seen Mediastinum: No cardiomegaly or pericardial effusion. Aorta does not appear aneurysmal. Lymph Nodes: There are no enlarged lymph nodes seen. Upper Abdomen: No significant abnormality appreciated. BODY WALL Soft Tissues: No signal abnormality appreciated. Bones: No acute or destructive osseous process seen. IMPRESSION: Diminished sensitivity. No gross evidence of a main pulmonary artery embolus seen. Lobar and segmental pulmonary arteries are not well assessed. If further imaging is warranted, consider correlation with V/Q scan. Bilateral pulmonary opacities, either pneumonia or edema. Follow-up to resolution is recommended to exclude the possibility of a neoplastic process. Signed by: Korina Donovan, Gilles Sign Date/Time: 10/27/2018 6:46 PM VAS Lower Extremity Venous Bilateral Narrative VENOUS BILATERAL FOR DVT ONLY CLINICAL INFORMATION: Rule out Deep Vein Thrombosis COMPARISON: None PROCEDURE: Duplex and color Doppler evaluation of the veins of the lower extremities including compression, spectral analysis and Doppler response to distal compression, Valsalva, and/or other maneuvers. FINDINGS: Right Lower Extremity: The common femoral vein, femoral vein and popliteal vein are compressible with normal augmentation. Greater saphenous vein unremarkable. Left Lower Extremity: The common femoral vein, femoral vein and popliteal vein are compressible with normal augmentation. Greater saphenous vein unremarkable. IMPRESSION: Bilateral lower extremity ultrasound negative for DVT. Signed by: Korina Ahn Shawn Sign Date/Time: 10/28/2018 1:20 PM XR Chest AP Portable Narrative CHEST PORTABLE ONE VIEW CLINICAL INFORMATION: Bilateral infiltrates attributed to aspiration vs pulmonary edema. pls note progression/improvement. COMPARISON: CT ANGIOGRAM PULMONARY W CONTRAST (10/27/2018); XR CHEST AP PORTABLE (10/27/2018); FINDINGS: The heart is normal in size. No mediastinal shift or widening is noted. No pneumothorax is present. Bilateral patchy opacities are seen throughout the lung bilaterally. There is blunting of the costophrenic angle. IMPRESSION: Bilateral opacities throughout the lung which may reflect residual airspace consolidation from pneumonia or pulmonary edema. These are stable. Signed by: Korina Alcaraz, Kenneth Sign Date/Time: 10/30/2018 4:54 PM PROBLEM LIST Principal Problem: Mechanical instability of hip prosthesis Active Problems: Artificial joint pain Shortness of breath Acute respiratory failure with hypoxia Morbid obesity Vitamin D deficiency ASSESSMENT & PLAN Acute hypoxic respiratory failure - secondary to possible fluid overload vs aspiration type pneumonia - Completed 6 days of zosyn 11/02/18. Respiratory culture is mixed. Discussed with pulmonol carlo. IV levaquin started for atypical coverage. Today is day 4 of levaquin. Will check proca lcitonin in AM. If negative/low can likely discontinue levaquin after 5 days. - change IV to PO lasix 40mg bidd today. Remove madera catheter today. - pulmonology is consulted. - She was started on IV steroids. Transitioned to PO steroids 11/05/18 with 1-2 week taper ne eded - echo demonstrates normal ejection fraction - wean off high flow as tolerated Leukocytosis - this is likely reactive to the steroids. Overall she appears improved clinically. HTN - controlled. Monitor S/p left posterior hip arthroplasty revision - per orthopedic surgery - pain control - limit use of narcotics if possible - continue with pt/ot. Needs to mobilize if possible Morbid obesity - likely has underlying ALDAIR - continue with bipap for now. Needs outpatient sleep study. Depression/anxiety/ptsd - 11/03/18 Discussed patient with [facility] [phone]. She has a diagnosis o f PTSD and major depressive disorder with psychotic symptoms. She last saw her mental health nurse practitioner Pamela Romero on September 12. The medications that she is on there includes c elexa 40mg daily Topimax 25 BID, hydroxyzine 50mg bid prn anxiety, clonidine 0.1 bid prn anx iety, perphenazine 8mg bid. Our pharmacy does not have perphenazine, I have discussed with elvia butterfield about any alternatives. They have recommended converting 8mg bid of perphenazine to 5mg bid olanzapine. - noted psych consult from 11/02/18 -11/04/18 appears more stable. Nicotine use - advised to quit GI/DVT prophylaxis PT/OT Kush Ge MD 11/06/2018 8:02 Greater than 35 minutes spent today overall in coordination of care, seeing and managing migdalia chester, review of data, coordination with staff, coordination with involved consultants, and including any scheduled multidisciplinary rounding focused on the patient with 50 percent or more spent seeing and managing patient and counseling/coordination. Dictation software, Workspace, used which may contain error for similar sounding words even af ter review. Personal communication requested for any clarification. Portions of this chart may have been copied from previous notes for continuity of care purp ose Terri Osullivan RN - 0 11/05/2018 1819 PDTEnd of shift review complete. Electronically signed by Terri Montes De Oca RN a t 11/05/2018 18:19 Donovan Loja PA - 11/05/[address] [facility] Service: Orthopedic Surgery Progress Note Hospital Day: LOS:Hospital Day: 13 Post-Op Day: 11 Days Post-Op status post Left TH revision Procedure: Procedure(s) (LRB): ARTHROPLASTY REVISION TOTAL HIP (Left) SUBJECTIVE Pt awake in bed and watching television. She states she is doing well and pain is controlle d. She says she has been working with PT OBJECTIVE Vital Signs: Vitals: 11/05/18 0945 BP: 128/73 Pulse: Resp: Temp: Exam: Left hip - Dressing clean, dry, and intact - Compartments soft - Flexion of toes and ankle - Sensation intact to light touch - Palpable dorsalis pedis pulse DATA Lab Results Component Value Date WBC 20.45 (H) 11/05/2018 HGB 12.6 11/05/2018 HCT 37.6 11/05/2018 MCV 90.8 11/05/2018 PLT 505 (H) 11/05/2018 Lab Results Component Value Date NA 141 11/05/2018 K 4.5 11/05/2018 CL 101 11/05/2018 CO2 34 (H) 11/05/2018 No results found for: INR, PROTIME Lab Results Component Value Date CRP 1.3 (H) 09/19/2018 No results found for: ESR ASSESSMENT & PLAN s/p Left TH revision, POD #11 - Continue care per hospitalist and pulmonology - Touch down weight bearing - Continue DVT prophylaxis - Continue pain management - Stable per ortho standpoint - Planned transfer to SNF MIGDALIA Thompson 11/05/2018 10:52 MIGDALIA Thompson has created this entry using [employer] e and ReDigi macros. The entry has been reviewed and there may still exist sound alike word errors. Kush Miller MD - 11/05/[address] [facility] Service: Hospitalist Progress Note Pt: Sylvie Ramsey AGE/SEX: 48 y.o. female ROOM: [facility]/9119-01 : 1970 PCP: No Physician on file ADMIT DATE: 10/24/2018 TODAY'S DATE: 11/05/2018 Hospital Day/Hospital Course: LOS: 12 days 48f with pmh of anxiety, depression, PTSD, morbid obesity, asthma who presented for left po sterior total hip arthroplasty revision on 10/24/18. She had difficulty with ambulation and d eveloped shortness of breath. Hospitalist was consulted. CT of the chest has demonstrated no obvious pulmonary embolism, but there are opacities consistent with pneumonia vs edema. US lower extremity negative for DVT. She has been on lasix and zosyn. Pulmonology is consulted. Patient has been difficult to we an off bipap. She had episodes of agitaitation and psychiatry was consulted. Her psychiatry RES COUNSELOR was also contacted and she was restarted on her regular medications. She has been able to be weaned to high flow nasal canula. SUBJECTIVE: Patient seen and examined. Doing well today. More talkative. She is answering questions. St at[place] yesterday she worked with therapy. She has been able to maintain on high flow nasal can krishna. No cough at this time. Is lying flat. No headache. No Abdominal pain, N/V or fever. No dizziness or lightheadedness. Scheduled Medications: albuterol-ipratropium 3 mL Nebulization Q4H While awake calcium citrate-vitamin D 1 tablet Oral BID celecoxib 200 mg Oral BID citalopram 40 mg Oral Daily enoxaparin 40 mg Subcutaneous Daily furosemide 40 mg Intravenous BID levoFLOXacin 750 mg Intravenous Q24H morphine 15 mg Oral 2 times per day nicotine 1 patch Transdermal Daily OLANZapine 5 mg Oral BID pantoprazole 40 mg Oral BID AC predniSONE 40 mg Oral Daily senna 8.6 mg Oral Nightly topiramate 25 mg Oral BID Continuous Infusions PRN Medications acetaminophen, albuterol, bisacodyl, calcium carbonate, diphenhydrAMINE OR diphenhydrAM INE OR diphenhydrAMINE, docusate sodium, haloperidol lactate, HYDROcodone-acetaminophen, HYDROmorphone, hydrOXYzine hydrochloride, lactulose, magnesium hydroxide, menthol throat lo zenges, metoclopramide, metoclopramide, ondansetron, ondansetron, phenol, polyethylene glyco l, Potassium replacement - NON ICU AND Potassium AND potassium chloride AND pota ssium chloride AND potassium chloride IVPB (other volumes & diluents) AND potassium chloride IVPB (other volumes & diluents), prochlorperazine, traMADol Allergy: Allergies Allergen Reactions Bupropion Hives OBJECTIVE: Vitals: Patient Vitals for the past 24 hrs: BP Temp Temp src Pulse Resp SpO2 Weight 11/05/18 0846 130/70 60 20 93 % 11/05/18 0839 130/70 61 20 95 % 11/05/18 0819 130/70 36.9 C (98.5 F) Oral 65 18 97 % 11/05/18 0319 127/72 37 C (98.6 F) Axillary 65 22 122.4 kg (269 lb 13.5 oz) 11/05/18 0250 68 20 97 % 11/04/18 2335 69 20 96 % 11/04/18 2324 68 18 94 % 11/04/18 2312 118/65 37.1 C (98.8 F) Axillary 68 22 94 % 11/04/18 1929 71 18 95 % 11/04/18 1918 69 18 96 % 11/04/18 1917 120/58 36.7 C (98 F) Oral 74 20 96 % 11/04/18 1609 144/66 73 22 94 % 11/04/18 1603 146/66 72 20 93 % 11/04/18 1538 146/66 36.6 C (97.9 F) Oral 78 22 90 % 11/04/18 1131 123/67 37 C (98.6 F) Oral 69 22 92 % 11/04/18 1125 123/67 69 22 94 % I&O Detailed Table: Intake/Output Summary (Last 24 hours) at 11/05/2018 0944 Last data filed at 11/05/2018 0320 Gross per 24 hour Intake 500 ml Output 3700 ml Net -3200 ml Patient Vitals for the past 96 hrs: Weight 11/05/18 0319 122.4 kg (269 lb 13.5 oz) 11/04/18 0340 122.5 kg (270 lb 1 oz) 11/02/18 0344 122.4 kg (269 lb 13.5 oz) 11/01/18 1111 122.2 kg (269 lb 6.4 oz) Physical Examination: Constitutional: Awake. Alert. More talkative. HEENT: Neck supple, no JVD, non icteric sclera. Cardiovascular: Normal rate, regular rhythm. Exam reveals no appreciated gallop or frictio n rub. No murmur heard. Pulmonary/Chest: On high flow nasal canula. No crackles noted. Wheezing improved Abdominal: Soft. Bowel sounds are normal. There is no tenderness. There is no rebound and no guarding. Extremeties/Musculoskeletal: Normal range of motion for patient. exhibits no tenderness. e xhibits no edema. Neurological: Alert and oriented to person, place. No cranial nerve deficit appreciated. Skin: Skin is warm and dry. No rash noted. No erythema. No pallor. Psychiatric: Has a normal mood and affect given situation. Behavior is calm today. LABS: Recent Labs Lab 11/05/1840411/04/1835211/03/18357 WBC 20.45* 18.65* 19.27* HGB 12.6 11.9 11.0* HCT 37.6 36.6 33.7* PLT 505* 421* 410* Recent Labs Lab 11/05/1840411/04/1835211/03/18357 NA 141 145 140 K 4.5 4.5 4.0 CL 101 102 99 CO2 34* 35* 39* BUN 31* 40* 39* CALCIUM 8.4* 8.4* 8.1* Phosphorus: Lab Results Component Value Date PHOS 3.4 10/31/2018 No results for input(s): LABALBU in the last 168 hours. Recent Labs Lab 11/05/1840411/04/1835211/03/18357 MG 2.6* 2.7* 2.7* No results for input(s): AMYLASE in the last 168 hours. No results for input(s): PHART, PO2ART, DYM3NCD, I2EJPQKC, BEART in the last 168 hours. No results for input(s): APTT, INR, PTT in the last 168 hours. No results for input(s): TSH in the last 168 hours. Invalid input(s): T3FREE, FREET4 No results for input(s): TROPONINT in the last 168 hours. Invalid input(s): CKTOTAL, TROPONINI, CKMBINDEX Microbiology Results (72 hrs) Procedure Component Value Units Date/Time Culture, Respiratory, Lower, Smear [[id number]] Collected: 10/29/181728 Order Status: Completed Lab Status: Final result Updated: 10/29/182024 Specimen: Body Fluid from Sputum, Expectorated Gram Stain Result GREATER THAN 10 SEC/LPF Gram Stain Result GREATER THAN 10 WBCS/LPF Gram Stain Result -- 1+ GRAM POSITIVE COCCI Gram Stain Result -- 1+ GRAM NEGATIVE RODS Gram Stain Result -- 1+ GRAM POSITIVE RODS Gram Stain Result -- 1+ GRAM NEGATIVE COCCI Gram Stain Result -- 1+ YEAST RESULT SMEAR CONTAINS GREATER THAN 10 SEC/LPF SUGGESTIVE OF POOR QUALITY SPECIMEN. SPECI MEN WILL NOT BE CULTURED OR WILL BE CULTURED BY SPECIAL REQUEST ONLY. PLEASE RECOLLECT IF C LINICALLY INDICATED. SPECIMEN WILL BE HELD 48 HOURS. RESULT Testing performed at [facility], [address] [place] [address] Comment: Testing performed at [facility], [address] [place] [address] RADIOLOGY: Recent Results (from the past 360 hour(s)) XR Pelvis 1 or 2 Vw Narrative PELVIS ONE VIEW CLINICAL INFORMATION: Status post revision left hip total hip arthroplasty. COMPARISON: XR ARTHROCENTESIS HIP LEFT (10/18/2018); CT PELVIS WO CONTRAST (09/19/2018); FINDINGS: Bilateral total hip prostheses. Status post revision left total hip arthroplasty. Femoral head prosthesis is well seated within the acetabular component. No displaced fracture fragments. IMPRESSION: Revised left hip prosthesis is well seated within the acetabular component. No unexpected postoperative findings. Dictated by: Korina Gabriel George Signed by: Korina Machado Michael Sign Date/Time: 10/24/2018 8:54 PM The radiologist has reviewed the images and edited/approved the report. For interventional procedures, the signing radiologist was present for the choi portions of the exam. XR Pelvis Complete 3 + Vw Narrative PELVIS COMPLETE MINIMUM THREE VIEWS CLINICAL INFORMATION: Post operative left hip. COMPARISON: XR PELVIS 1 OR 2 VW (10/24/2018); XR HIP 2 VIEW LEFT (09/11/2018); FINDINGS: Bilateral total hip prostheses, with 2 right and 3 left hip screws anchoring the bilateral acetabular prostheses. Moderate length left femoral prosthesis. No evidence of periprosthetic loosening. There apparently has been interval left hip surgery. No periprosthetic fracture or evidence of loosening. IMPRESSION: 1. Bilateral total hip prostheses appear unremarkable. Signed by: Korina Ahn Shawn Sign Date/Time: 10/27/2018 11:57 AM XR Chest AP Portable Narrative CHEST PORTABLE ONE VIEW CLINICAL INFORMATION: Shortness of breath COMPARISON: None FINDINGS: Bilateral perihilar congestion and diffuse interstitial opacities seen. There appears to be right paratracheal and right hilar prominence. Cardiomediastinal silhouette otherwise appears unremarkable. Osseous structures appear unremarkable. IMPRESSION: Bilateral perihilar congestion, diffuse interstitial opacities. Findings likely represent pulmonary edema, although pneumonia is also a consideration. Prominence of the right paratracheal and right hilar tissues, nonspecific. Follow-up to radiographic resolution in 6 weeks after appropriate therapy is recommended to exclude the possibility of a neoplastic process. Signed by: Korina Donovan, Gilles Sign Date/Time: 10/27/2018 5:[address] Angiogram Pulmonary w Contrast Narrative CT ANGIOGRAM PULMONARY CLINICAL INFORMATION: Shortness of breath, Tachycardia with chest discomfort. COMPARISON: XR CHEST AP PORTABLE (10/27/2018); PROCEDURE: Thin-section images of the entire chest after the administration of 100 ml Omnipaque 350 intravenous contrast. 3D MIP thin slab images and 2D multiplanar reconstructions performed. At least one of the following CT dose optimization techniques were used: Automated exposure control; Adjustment of mA and/or kV according to patient size; Use of iterative reconstruction technique. FINDINGS: PULMONARY ARTERIES: Diminished sensitivity due to combination of patient body habitus, respiratory motion artifact and beam hardening artifact. No gross evidence of a main pulmonary artery embolus seen. Lobar and segmental pulmonary arteries are not well assessed. RIGHT VENTRICLE TO LEFT VENTRICLE RATIO: Not applicable. (Maximum short axis diameter on axial image. Applicable only when pulmonary embolism present. Abnormal greater than or equal to 0.9.) CHEST Lungs, Pleura and Airways: Throughout both lungs, there are patchy airspace and ground-glass opacities seen, more prominent on the right. No pleural effusion seen Mediastinum: No cardiomegaly or pericardial effusion. Aorta does not appear aneurysmal. Lymph Nodes: There are no enlarged lymph nodes seen. Upper Abdomen: No significant abnormality appreciated. BODY WALL Soft Tissues: No signal abnormality appreciated. Bones: No acute or destructive osseous process seen. IMPRESSION: Diminished sensitivity. No gross evidence of a main pulmonary artery embolus seen. Lobar and segmental pulmonary arteries are not well assessed. If further imaging is warranted, consider correlation with V/Q scan. Bilateral pulmonary opacities, either pneumonia or edema. Follow-up to resolution is recommended to exclude the possibility of a neoplastic process. Signed by: Korina Donovan Amit Sign Date/Time: 10/27/2018 6:46 PM VAS Lower Extremity Venous Bilateral Narrative VENOUS BILATERAL FOR DVT ONLY CLINICAL INFORMATION: Rule out Deep Vein Thrombosis COMPARISON: None PROCEDURE: Duplex and color Doppler evaluation of the veins of the lower extremities including compression, spectral analysis and Doppler response to distal compression, Valsalva, and/or other maneuvers. FINDINGS: Right Lower Extremity: The common femoral vein, femoral vein and popliteal vein are compressible with normal augmentation. Greater saphenous vein unremarkable. Left Lower Extremity: The common femoral vein, femoral vein and popliteal vein are compressible with normal augmentation. Greater saphenous vein unremarkable. IMPRESSION: Bilateral lower extremity ultrasound negative for DVT. Signed by: Korina Ahn Shawn Sign Date/Time: 10/28/2018 1:20 PM XR Chest AP Portable Narrative CHEST PORTABLE ONE VIEW CLINICAL INFORMATION: Bilateral infiltrates attributed to aspiration vs pulmonary edema. pls note progression/improvement. COMPARISON: CT ANGIOGRAM PULMONARY W CONTRAST (10/27/2018); XR CHEST AP PORTABLE (10/27/2018); FINDINGS: The heart is normal in size. No mediastinal shift or widening is noted. No pneumothorax is present. Bilateral patchy opacities are seen throughout the lung bilaterally. There is blunting of the costophrenic angle. IMPRESSION: Bilateral opacities throughout the lung which may reflect residual airspace consolidation from pneumonia or pulmonary edema. These are stable. Signed by: Korina Alcaraz Richard Sign Date/Time: 10/30/2018 4:54 PM PROBLEM LIST Principal Problem: Mechanical instability of hip prosthesis Active Problems: Artificial joint pain Shortness of breath Acute respiratory failure with hypoxia Morbid obesity Vitamin D deficiency ASSESSMENT & PLAN Acute hypoxic respiratory failure - secondary to possible fluid overload vs aspiration type pneumonia - Completed 6 days of zosyn 11/02/18. Respiratory culture is mixed. Discussed with pulmonjer matos. IV levaquin started for atypical coverage. Today is day 3 of levaquin. - continue IV lasix. Monitor I and O, daily weight. Possible switch to PO lasix tomorrow - pulmonology is consulted. - She was started on IV steroids. Will switch to PO steroids today with 1-2 week taper need ed - echo demonstrates normal ejection fraction HTN - controlled. Monitor S/p left posterior hip arthroplasty revision - per orthopedic surgery - pain control - limit use of narcotics if possible - continue with pt/ot. Needs to mobilize if possible Morbid obesity - likely has underlying ALDAIR - continue with bipap for now. Needs outpatient sleep study. Depression/anxiety/ptsd - 11/03/18 Discussed patient with [facility] [phone]. She has a diagnosis o f PTSD and major depressive disorder with psychotic symptoms. She last saw her mental health nurse practitioner Pamela Romero on September 12. The medications that she is on there includes c elexa 40mg daily Topimax 25 BID, hydroxyzine 50mg bid prn anxiety, clonidine 0.1 bid prn anx iety, perphenazine 8mg bid. Our pharmacy does not have perphenazine, I have discussed with elvia butterfield about any alternatives. They have recommended converting 8mg bid of perphenazine to 5mg bid olanzapine. - noted psych consult from 11/02/18 -11/04/18 appears more stable. Nicotine use - advised to quit GI/DVT prophylaxis PT/OT Kush Ge MD 11/05/2018 9:44 Greater than 35 minutes spent today overall in coordination of care, seeing and managing pa tient, review of data, coordination with staff, coordination with involved consultants, and including any scheduled multidisciplinary rounding focused on the patient with 50 percent or more spent seeing and managing patient and counseling/coordination. Dictation software, Workspace, used which may contain error for similar sounding words even af ter review. Personal communication requested for any clarification. Portions of this chart may have been copied from previous notes for continuity of care purp ose Romana Hubbard RN - 0 11/05/2018 0629 PDTPt has been stable and pleasant throuhghout shift. Cooperative with all ca re. High flow O2 requirements have remained unchanged from previous shift. Chart check completed. Shanice Rogers RN - 11/04/2018 1756 PDTSepsis team signing off. Please call with any que stions/concerns. [phone]. Shanice Rahman RN tump, Lala Pennington RN - 11/04/2018 1716 PDTPt has been stable and pleasant throughout shift. She was cooperative with mobility. Pt attempted to have a BM today. It was hard and impacted. High flow O2 requirements decreasing. 1300mL left on fluid restriction for the day. No restraints, blood, or signed and held orders. Electrolyte protocol followed with no replacement needed. Glycolax given per parameters with no results. Pt will need Milk of Magnesia and/or lactul ose tomorrow. End of shift review complete. avid Reddy Chaplain - 11/04/2018 1524 PDTChecked in w/RN. Pt lying on bed, awake. Chp intro'd self, asked how pt doing. She said, "Doing fine, thanks for coming by." Chp explaine d availability days & nights if needed. Pt thanked p. Chaplain David Greeney or Donovan eason PA - 11/04/2018 1302 PDTFormatting of this note might be different from t anibal original. [facility] Service: Orthopedic Surgery Progress Note Hospital Day: LOS:Hospital Day: 12 Post-Op Day: 11 Days Post-Op status post Left TH revision Procedure: Procedure(s) (LRB): ARTHROPLASTY REVISION TOTAL HIP (Left) SUBJECTIVE Pt awake in bed and watching television. She states she is doing well and pain is controlle d. She says she has been working with PT OBJECTIVE Vital Signs: Vitals: 11/04/18 1131 BP: 123/67 Pulse: 69 Resp: 22 Temp: 37 C (98.6 F) Exam: Left hip - Dressing clean, dry, and intact - Compartments soft - Flexion of toes and ankle - Sensation intact to light touch - Palpable dorsalis pedis pulse DATA Lab Results Component Value Date WBC 18.65 (H) 11/04/2018 HGB 11.9 11/04/2018 HCT 36.6 11/04/2018 MCV 91.0 11/04/2018 PLT 421 (H) 11/04/2018 Lab Results Component Value Date NA 145 11/04/2018 K 4.5 11/04/2018 CL 102 11/04/2018 CO2 35 (H) 11/04/2018 No results found for: INR, PROTIME Lab Results Component Value Date CRP 1.3 (H) 09/19/2018 No results found for: ESR ASSESSMENT & PLAN s/p Left TH revision, POD #1 - Continue care per hospitalist and pulmonology - Touch down weight bearing - Continue DVT prophylaxis - Continue pain management - Stable per ortho standpoint - Planned transfer to SNF MIGDALIA Thompson 11/04/2018 13:02 MIGDALIA Thompson has created this entry using [employer] e and iAgree. The entry has been reviewed and there may still exist sound alike word errors. Kush Miller MD - 11/04/[address] [facility] Service: Hospitalist Progress Note Pt: Sylvie Ramsey AGE/SEX: 48 y.o. female ROOM: 9119/9119-01 : 1970 PCP: No Physician on file ADMIT DATE: 10/24/2018 TODAY'S DATE: 11/04/2018 Hospital Day/Hospital Course: LOS: 11 days 48f with pmh of anxiety, depression, PTSD, morbid obesity, asthma who presented for left po sterior total hip arthroplasty revision on 10/24/18. She had difficulty with ambulation and d eveloped shortness of breath. Hospitalist was consulted. CT of the chest has demonstrated no obvious pulmonary embolism, but there are opacities consistent with pneumonia vs edema. US lower extremity negative for DVT. She has been on lasix and zosyn. Pulmonology is consulted. Patient has been difficult to we an off bipap. SUBJECTIVE: Patient seen and examined. She is much more calm today. She has been able to maintain on hi gh flow nasal canula. No cough at this time. Is lying flat. No headache. No Abdominal pain , N/V or fever. No dizziness or lightheadedness. Scheduled Medications: albuterol-ipratropium 3 mL Nebulization Q4H While awake calcium citrate-vitamin D 1 tablet Oral BID celecoxib 200 mg Oral BID citalopram 40 mg Oral Daily enoxaparin 40 mg Subcutaneous Daily furosemide 40 mg Intravenous BID levoFLOXacin 750 mg Intravenous Q24H methylPREDNISolone sodium succinate 40 mg Intravenous 2 times per day morphine 15 mg Oral 2 times per day nicotine 1 patch Transdermal Daily OLANZapine 5 mg Oral BID pantoprazole 40 mg Oral BID AC senna 8.6 mg Oral Nightly topiramate 25 mg Oral BID Continuous Infusions PRN Medications acetaminophen, albuterol, bisacodyl, calcium carbonate, diphenhydrAMINE OR diphenhydrAM INE OR diphenhydrAMINE, docusate sodium, haloperidol lactate, HYDROcodone-acetaminophen, HYDROmorphone, hydrOXYzine hydrochloride, lactulose, magnesium hydroxide, menthol throat lo zenges, metoclopramide, metoclopramide, ondansetron, ondansetron, phenol, polyethylene glyco l, Potassium replacement - NON ICU AND Potassium AND potassium chloride AND pota ssium chloride AND potassium chloride IVPB (other volumes & diluents) AND potassium chloride IVPB (other volumes & diluents), prochlorperazine, traMADol Allergy: Allergies Allergen Reactions Bupropion Hives OBJECTIVE: Vitals: Patient Vitals for the past 24 hrs: BP Temp Temp src Pulse Resp SpO2 Weight 11/04/18 1131 123/67 37 C (98.6 F) Oral 69 22 92 % 11/04/18 1125 123/67 69 22 94 % 11/04/18 0846 123/67 36.9 C (98.4 F) 63 22 95 % 11/04/18 0733 121/59 63 22 95 % 11/04/18 0556 22 11/04/18 0340 121/59 36.5 C (97.7 F) Axillary 64 20 95 % 122.5 kg (270 lb 1 oz) 11/03/187 105/59 36.6 C (97.8 F) Axillary 65 22 92 % 11/03/18 2226 62 25 98 % 11/03/182004 57 24 94 % 11/03/18 1944 115/64 36.6 C (97.8 F) Axillary 62 22 95 % 11/03/18 1606 62 20 91 % 11/03/18 1602 62 20 93 % 11/03/18 1541 111/66 37 C (98.6 F) Axillary 61 24 96 % 11/03/18 1421 64 22 95 % 11/03/18 1238 124/64 36.8 C (98.3 F) Oral 64 24 90 % I&O Detailed Table: Intake/Output Summary (Last 24 hours) at 11/04/2018 1150 Last data filed at 11/04/2018 0341 Gross per 24 hour Intake 300 ml Output 3370 ml Net -3070 ml Patient Vitals for the past 96 hrs: Weight 11/04/18 0340 122.5 kg (270 lb 1 oz) 11/02/18 0344 122.4 kg (269 lb 13.5 oz) 11/01/18 1111 122.2 kg (269 lb 6.4 oz) 11/01/18 0338 122.2 kg (269 lb 6.4 oz) Physical Examination: Constitutional: Awake. Alert. Resting comfortably. HEENT: Neck supple, no JVD, non icteric sclera. Cardiovascular: Normal rate, regular rhythm. Exam reveals no appreciated gallop or frictio n rub. No murmur heard. Pulmonary/Chest: On high flow nasal canula. No crackles noted. Mild expiratory wheezes note d. Abdominal: Soft. Bowel sounds are normal. There is no tenderness. There is no rebound and no guarding. Extremeties/Musculoskeletal: Normal range of motion for patient. exhibits no tenderness. e xhibits no edema. Neurological: Alert and oriented to person, place. No cranial nerve deficit appreciated. Skin: Skin is warm and dry. No rash noted. No erythema. No pallor. Psychiatric: Has a normal mood and affect given situation. Behavior is calm today. LABS: Recent Labs Lab 11/04/18 0353 11/03/18 0358 11/02/18 0408 WBC 18.65* 19.27* 19.10* HGB 11.9 11.0* 10.8* HCT 36.6 33.7* 32.7* PLT 421* 410* 390 Recent Labs Lab 11/04/18 0353 11/03/18 0358 11/02/18 0408 NA 145 140 139 K 4.5 4.0 3.6 CL 102 99 97* CO2 35* 39* 38* BUN 40* 39* 31* CALCIUM 8.4* 8.1* 8.7 Phosphorus: Lab Results Component Value Date PHOS 3.4 10/31/2018 No results for input(s): LABALBU in the last 168 hours. Recent Labs Lab 11/04/18 0353 11/03/18 0358 11/02/18 0408 MG 2.7* 2.7* 2.8* No results for input(s): AMYLASE in the last 168 hours. No results for input(s): PHART, PO2ART, CTR8PXG, X6KDXPYD, BEART in the last 168 hours. No results for input(s): APTT, INR, PTT in the last 168 hours. No results for input(s): TSH in the last 168 hours. Invalid input(s): T3FREE, FREET4 No results for input(s): TROPONINT in the last 168 hours. Invalid input(s): CKTOTAL, TROPONINI, CKMBINDEX Microbiology Results (72 hrs) Procedure Component Value Units Date/Time Culture, Respiratory, Lower, Smear [[id number]] Collected: 10/29/181728 Order Status: Completed Lab Status: Final result Updated: 10/29/182024 Specimen: Body Fluid from Sputum, Expectorated Gram Stain Result GREATER THAN 10 SEC/LPF Gram Stain Result GREATER THAN 10 WBCS/LPF Gram Stain Result -- 1+ GRAM POSITIVE COCCI Gram Stain Result -- 1+ GRAM NEGATIVE RODS Gram Stain Result -- 1+ GRAM POSITIVE RODS Gram Stain Result -- 1+ GRAM NEGATIVE COCCI Gram Stain Result -- 1+ YEAST RESULT SMEAR CONTAINS GREATER THAN 10 SEC/LPF SUGGESTIVE OF POOR QUALITY SPECIMEN. SPECI MEN WILL NOT BE CULTURED OR WILL BE CULTURED BY SPECIAL REQUEST ONLY. PLEASE RECOLLECT IF C LINICALLY INDICATED. SPECIMEN WILL BE HELD 48 HOURS. RESULT Testing performed at [facility], [address] [place] [id number] Comment: Testing performed at [facility], [address] [place] [id number] RADIOLOGY: Recent Results (from the past 360 hour(s)) XR Pelvis 1 or 2 Vw Narrative PELVIS ONE VIEW CLINICAL INFORMATION: Status post revision left hip total hip arthroplasty. COMPARISON: XR ARTHROCENTESIS HIP LEFT (10/18/2018); CT PELVIS WO CONTRAST (09/19/2018); FINDINGS: Bilateral total hip prostheses. Status post revision left total hip arthroplasty. Femoral head prosthesis is well seated within the acetabular component. No displaced fracture fragments. IMPRESSION: Revised left hip prosthesis is well seated within the acetabular component. No unexpected postoperative findings. Dictated by: Korina Gabriel George Signed by: Korina Machado Michael Sign Date/Time: 10/24/2018 8:54 PM The radiologist has reviewed the images and edited/approved the report. For interventional procedures, the signing radiologist was present for the choi portions of the exam. XR Pelvis Complete 3 + Vw Narrative PELVIS COMPLETE MINIMUM THREE VIEWS CLINICAL INFORMATION: Post operative left hip. COMPARISON: XR PELVIS 1 OR 2 VW (10/24/2018); XR HIP 2 VIEW LEFT (09/11/2018); FINDINGS: Bilateral total hip prostheses, with 2 right and 3 left hip screws anchoring the bilateral acetabular prostheses. Moderate length left femoral prosthesis. No evidence of periprosthetic loosening. There apparently has been interval left hip surgery. No periprosthetic fracture or evidence of loosening. IMPRESSION: 1. Bilateral total hip prostheses appear unremarkable. Signed by: Korina Ahn Shawn Sign Date/Time: 10/27/2018 11:57 AM XR Chest AP Portable Narrative CHEST PORTABLE ONE VIEW CLINICAL INFORMATION: Shortness of breath COMPARISON: None FINDINGS: Bilateral perihilar congestion and diffuse interstitial opacities seen. There appears to be right paratracheal and right hilar prominence. Cardiomediastinal silhouette otherwise appears unremarkable. Osseous structures appear unremarkable. IMPRESSION: Bilateral perihilar congestion, diffuse interstitial opacities. Findings likely represent pulmonary edema, although pneumonia is also a consideration. Prominence of the right paratracheal and right hilar tissues, nonspecific. Follow-up to radiographic resolution in 6 weeks after appropriate therapy is recommended to exclude the possibility of a neoplastic process. Signed by: Korina Donovan Amit Sign Date/Time: 10/27/2018 5:[address] Angiogram Pulmonary w Contrast Narrative CT ANGIOGRAM PULMONARY CLINICAL INFORMATION: Shortness of breath, Tachycardia with chest discomfort. COMPARISON: XR CHEST AP PORTABLE (10/27/2018); PROCEDURE: Thin-section images of the entire chest after the administration of 100 ml Omnipaque 350 intravenous contrast. 3D MIP thin slab images and 2D multiplanar reconstructions performed. At least one of the following CT dose optimization techniques were used: Automated exposure control; Adjustment of mA and/or kV according to patient size; Use of iterative reconstruction technique. FINDINGS: PULMONARY ARTERIES: Diminished sensitivity due to combination of patient body habitus, respiratory motion artifact and beam hardening artifact. No gross evidence of a main pulmonary artery embolus seen. Lobar and segmental pulmonary arteries are not well assessed. RIGHT VENTRICLE TO LEFT VENTRICLE RATIO: Not applicable. (Maximum short axis diameter on axial image. Applicable only when pulmonary embolism present. Abnormal greater than or equal to 0.9.) CHEST Lungs, Pleura and Airways: Throughout both lungs, there are patchy airspace and ground-glass opacities seen, more prominent on the right. No pleural effusion seen Mediastinum: No cardiomegaly or pericardial effusion. Aorta does not appear aneurysmal. Lymph Nodes: There are no enlarged lymph nodes seen. Upper Abdomen: No significant abnormality appreciated. BODY WALL Soft Tissues: No signal abnormality appreciated. Bones: No acute or destructive osseous process seen. IMPRESSION: Diminished sensitivity. No gross evidence of a main pulmonary artery embolus seen. Lobar and segmental pulmonary arteries are not well assessed. If further imaging is warranted, consider correlation with V/Q scan. Bilateral pulmonary opacities, either pneumonia or edema. Follow-up to resolution is recommended to exclude the possibility of a neoplastic process. Signed by: Korina Donovan, Gilles Sign Date/Time: 10/27/2018 6:46 PM VAS Lower Extremity Venous Bilateral Narrative VENOUS BILATERAL FOR DVT ONLY CLINICAL INFORMATION: Rule out Deep Vein Thrombosis COMPARISON: None PROCEDURE: Duplex and color Doppler evaluation of the veins of the lower extremities including compression, spectral analysis and Doppler response to distal compression, Valsalva, and/or other maneuvers. FINDINGS: Right Lower Extremity: The common femoral vein, femoral vein and popliteal vein are compressible with normal augmentation. Greater saphenous vein unremarkable. Left Lower Extremity: The common femoral vein, femoral vein and popliteal vein are compressible with normal augmentation. Greater saphenous vein unremarkable. IMPRESSION: Bilateral lower extremity ultrasound negative for DVT. Signed by: Korina Ahn, Efe Sign Date/Time: 10/28/2018 1:20 PM XR Chest AP Portable Narrative CHEST PORTABLE ONE VIEW CLINICAL INFORMATION: Bilateral infiltrates attributed to aspiration vs pulmonary edema. pls note progression/improvement. COMPARISON: CT ANGIOGRAM PULMONARY W CONTRAST (10/27/2018); XR CHEST AP PORTABLE (10/27/2018); FINDINGS: The heart is normal in size. No mediastinal shift or widening is noted. No pneumothorax is present. Bilateral patchy opacities are seen throughout the lung bilaterally. There is blunting of the costophrenic angle. IMPRESSION: Bilateral opacities throughout the lung which may reflect residual airspace consolidation from pneumonia or pulmonary edema. These are stable. Signed by: Korina Alcaraz, Kenneth Sign Date/Time: 10/30/2018 4:54 PM PROBLEM LIST Principal Problem: Mechanical instability of hip prosthesis Active Problems: Artificial joint pain Shortness of breath Acute respiratory failure with hypoxia Morbid obesity Vitamin D deficiency ASSESSMENT & PLAN Acute hypoxic respiratory failure - secondary to possible fluid overload vs aspiration type pneumonia - Completed 6 days of zosyn 11/02/18. Respiratory culture is mixed. Discussed with pulmonjer matos. IV levaquin started for atypical coverage. Today is day 2 of levaquin. - continue IV lasix. Monitor I and O, daily weight. Possible switch to PO lasix tomorrow - pulmonology is consulted. She was started on IV steroids. Will continue to 40q12. Has lua d improvement. Can hopefully switch to PO prednisone in the next 1-2 days - echo demonstrates normal ejection fraction HTN - controlled. Monitor S/p left posterior hip arthroplasty revision - per orthopedic surgery - pain control - limit use of narcotics if possible - continue with pt/ot. Needs to mobilize if possible Morbid obesity - likely has underlying ALDAIR - continue with bipap for now. Needs outpatient sleep study. Depression/anxiety/ptsd - 11/03/18 Discussed patient with [facility] [phone]. She has a diagnosis o f PTSD and major depressive disorder with psychotic symptoms. She last saw her mental health nurse practitioner Pamela Romero on September 12. The medications that she is on there includes c elexa 40mg daily Topimax 25 BID, hydroxyzine 50mg bid prn anxiety, clonidine 0.1 bid prn anx iety, perphenazine 8mg bid. Our pharmacy does not have perphenazine, I have discussed with elvia butterfield about any alternatives. They have recommended converting 8mg bid of perphenazine to 5mg bid olanzapine. - noted psych consult from 11/02/18 -11/04/18 appears more stable. Nicotine use - advised to quit GI/DVT prophylaxis PT/OT Ksuh Ge MD 11/04/2018 11:50 Greater than 35 minutes spent today overall in coordination of care, seeing and managing migdalia chester, review of data, coordination with staff, coordination with involved consultants, and including any scheduled multidisciplinary rounding focused on the patient with 50 percent or more spent seeing and managing patient and counseling/coordination. Dictation software, Workspace, used which may contain error for similar sounding words even af ter review. Personal communication requested for any clarification. Portions of this chart may have been copied from previous notes for continuity of care purp ose Emilio Dawn PA-C - 11/03/2018 1057 PDT She notes that pain is well controlled. She has been eating and voiding without issues. t his morning she was combative to therapist and threw breakfast tray. Patient states she is frustrated with being here for a long time and wants to go home. She continues to have regu lar p.o. Intake. Per gas transfer operator note oxygenation is improving. 1. Pain in prosthetic joint, initial encounter ([facility]) 2. Mechanical complication of prosthetic knee implant, initial encounter ([facility]) 3. Mechanical instability of hip prosthesis ([facility]) 4. Shortness of breath 5. Acute respiratory failure with hypoxia ([facility]) Past Medical History: Diagnosis Date Anxiety Anxious depression Arthralgia Arthritis Asthma not using inhalers DDD (degenerative disc disease), lumbar Deliberate self-cutting history of Depression Heartburn Hemorrhage of gastrointestinal tract 2015 upper and lower due ulcers Morbid obesity with BMI of 50.0-59.9, adult ([facility]) Pain in prosthetic joint ([facility]) with instability Panic attacks states can be severe prior to surgeries PTSD (post-traumatic stress disorder) Current Facility-Administered Medications Medication Dose Route Frequency Provider Last Rate Last Dose acetaminophen (TYLENOL) tablet 650 mg 650 mg Oral Q6H PRN Kush Ge MD 650 mg at 10/31/18 1438 albuterol 90 mcg/puff inhaler 2 puff 2 puff Inhalation RT Q4H PRN Fab Vickers D 2 puff at 11/01/18 1619 albuterol-ipratropium 2.5-0.5 mg/3 mL nebulizer solution 3 mL 3 mL Nebulization Q4H Wh ile awake Yuki Pruett MD 3 mL at 11/02/18 2100 bisacodyl (DULCOLAX) suppository 10 mg 10 mg Rectal Daily PRN Miah Monique MD calcium carbonate (TUMS) chewable tablet 1,000 mg 1,000 mg Oral Q2H PRN Miah rod MD 1,000 mg at 10/27/18 0924 calcium citrate-vitamin D (CITRACAL+D) 315 mg-200 units per tablet 1 tablet 1 tablet O ral BID Yuki Pruett MD 1 tablet at 11/03/18 1000 celecoxib (CELEBREX) capsule 200 mg 200 mg Oral BID Miah Monique MD 200 mg at 11/03/18 1000 citalopram (celeXA) tablet 40 mg 40 mg Oral Daily Miah Monique MD 40 mg at 1000 diphenhydrAMINE (BENADRYL) injection 12.5 mg 12.5 mg Intravenous Q4H PRN Miah marrufo MD Or diphenhydrAMINE (BENADRYL) capsule 25 mg 25 mg Oral Q4H PRN Miah Monique MD Or diphenhydrAMINE (BENADRYL) 12.5 mg/5 mL liquid 25 mg 25 mg Oral Q4H PRN Miah rod MD docusate sodium (COLACE) capsule 100 mg 100 mg Oral BID PRN Miah Monique MD 10 0 mg at 10/31/18 0845 enoxaparin (LOVENOX) 40 mg/0.4 mL injection 40 mg 40 mg Subcutaneous Daily Yuki Pruett MD 40 mg at 11/03/18 1000 furosemide (LASIX) injection 40 mg 40 mg Intravenous BID Yuki Pruett MD 40 mg at 11/03/18 1000 haloperidol lactate (HALDOL) injection 2 mg 2 mg Intramuscular Q6H PRN Kush Ge MD HYDROcodone-acetaminophen (NORCO) 5-325 mg per tablet 1-2 tablet 1-2 tablet Oral Q6H P RN Kush Ge MD 2 tablet at 11/02/18 1628 HYDROmorphone (DILAUDID) injection 0.25-1 mg 0.25-1 mg Intravenous Q2H PRN Miah sweeney MD 1 mg at 10/25/18 0230 hydrOXYzine hydrochloride (ATARAX) tablet 10 mg 10 mg Oral TID PRN Miah Monique MD 10 mg at 11/02/18 1034 lactulose liquid 30 mL 30 mL Oral TID PRN Yuki Pruett MD 30 mL at 10/30 0921 levoFLOXacin in dextrose (LEVAQUIN) IVPB 750 mg 750 mg Intravenous Q24H Kush Ge MD 100 mL/hr at 11/02/18 2341 750 mg at 11/02/18 2341 magnesium hydroxide (MILK OF MAGNESIA) 400 mg/5 mL suspension 30 mL 30 mL Oral Nightly PRN Miah Monique MD menthol (HALLS) lozenge 1 lozenge 1 lozenge Buccal Q2H PRN Miah Monique MD methylPREDNISolone sodium succinate (solu-MEDROL) 40 mg/mL injection 40 mg 40 mg Intra venous 2 times per day Kush Ge MD metoclopramide (REGLAN) 5 mg/mL injection 10 mg 10 mg Intravenous Q4H PRN Miah donovan MD metoclopramide (REGLAN) tablet 10 mg 10 mg Oral Q4H PRN Miah Monique MD morphine (MS CONTIN) ER tablet 15 mg 15 mg Oral 2 times per day Miah Monique MD 15 mg at 11/03/18 1000 nicotine (NICODERM) 7 mg/24 hr 1 patch 1 patch Transdermal Daily Miah Monique MD 1 patch at 11/03/18 1000 OLANZapine (zyPREXA) tablet 5 mg 5 mg Oral TID PRN Kush Ge MD ondansetron (ZOFRAN ODT) disintegrating tablet 4 mg 4 mg Oral Q6H PRN Miah arboleda MD ondansetron (ZOFRAN) injection 4 mg 4 mg Intravenous Q6H PRN Miah Monique MD pantoprazole (PROTONIX) DR tablet 40 mg 40 mg Oral BID AC Harpal Fine MD 40 mg at 11/03/18 0533 phenol (CHLORASEPTIC) spray 1-2 spray 1-2 spray Mouth/Throat Q3H PRN Miah Monique MD 2 spray at 10/27/18 0628 polyethylene glycol (MIRALAX) powder 17 g 17 g Oral Daily PRN Miah Monique MD 17 g at 11/03/18 1026 potassium chloride (KLOR-CON) ER tablet 20-40 mEq 20-40 mEq Oral Daily PRN Kush khoury MD 20 mEq at 11/02/18 0851 And potassium chloride (KLOR-CON) packet 20-40 mEq 20-40 mEq Per G Tube Daily PRN Kush duron MD And potassium chloride 20 mEq in sodium chloride 0.9% 250 mL IVPB 20 mEq Intravenous Daily PRN Kush Ge MD And potassium chloride 40 mEq in sodium chloride 0.9% 500 mL IVPB 40 mEq Intravenous Daily PRN Kush Ge MD prochlorperazine tablet 10 mg 10 mg Oral Q6H PRN Miah Monique MD senna (SENOKOT) tablet 8.6 mg 8.6 mg Oral Nightly Yuki Pruett MD 8.6 mg at 11/02/18 204 traMADol (ULTRAM) tablet 50 mg 50 mg Oral Q6H PRN Yuki Pruett MD 50 mg at 10/30/18 0313 Allergies Allergen Reactions Bupropion Hives Principal Problem: Mechanical instability of hip prosthesis Active Problems: Artificial joint pain Shortness of breath Acute respiratory failure with hypoxia Morbid obesity Vitamin D deficiency Blood pressure 128/68, pulse 82, temperature 36.9 C (98.5 F), temperature source Axilla ry, resp. rate 24, height 1.524 m (5'), weight 122.4 kg (269 lb 13.5 oz), last menstrual per iod 10/24/2018, SpO2 92 %, not currently . Physical Exam Constitutional: She is oriented to person, place, and time. She appears well-developed and well-nourished. HENT: Head: Normocephalic and atraumatic. Eyes: Pupils are equal, round, and reactive to light. EOM are normal. Pulmonary/Chest: On nasal cannula Neurological: She is alert and oriented to person, place, and time. Skin: Skin is warm and dry. Psychiatric: She has a normal mood and affect. Her behavior is normal. Thought content norm al. Left Hip Exam Other Erythema: absent Pulse: present Comments: Dressing clean dry and intact dp pulse present Ankle strength and rom present 48-year-old female status post left total hip arthroplasty revision -Continued care by pulmonology and hospitalist staff -Continue DVT prophylaxis -Continue pain medications PRN unless needed to be weaned by pulmonology or hospitalist -touch down weight bearing stable from orthopedic standpoint I encouraged her to continue some form of physical therap y and be touchdown weightbearing Plan for transfer to SNF versus rehab once cleared by hospitalist and pulmonology specialis t Emilio Moreno 11/03/2018 rancoise Summers R N - 11/03/2018 1039 PDTDada ball called this am at approx 0900. Pt breaking dishes, throwing full water pitcher, and yelling profanities at pt d/t therapist attempting to work with pt doing mobility exercises. Security, risk, pcc, stepdown real estate firm manager, primary md, and lead rn pre sent with bedside rn. Pt crying and yelling that she doesn't want to "be here". Per policy d isruptive/violent pt paperwork filled out. Situation and pt expectations reviewed by risk jaime arboleda real estate firm manager with pt. Sitter at bedside currently. Ever Jenkins PT - 11/03/2018 0835 PDTFormatting of this no te might be different from the original. 11/03/18 0835 PT Visit Summary PT Visit Type Missed Visit (patient declined) Next Visit Information 11/03, L MARTÍN, 2PA PT Visit Summary Attempted to see pt. Attempted education and then tried to get pt. to do s upine exercises. pt. very agitated and continued to escalate. Informed pt. that she could refuse but physician would see this. When out of the room, pt through breakfast tray at [facility]. Dada mares called by production staff worker. pt. also stated during session everything we have been doing for her is wrong. eon Calvin SIGN PAINTER - 11/03/2018 0818 PDTPatient found to have High Flow Nasal Cannula out of nostrils and low o xygen saturations of 77%. Patient declined bipap, however let me place cannula in nostrils. Patient refused nebulizer treatment and stated she wants to get out of here. HFNC 60L 49% , Spo2 94% Kush Ge MD - 11/03/[address] [facility] Service: Hospitalist Progress Note Pt: Sylvie Ramsey AGE/SEX: 48 y.o. female ROOM: 9119/9119-01 : 1970 PCP: No Physician on file ADMIT DATE: 10/24/2018 TODAY'S DATE: 11/03/2018 Hospital Day/Hospital Course: LOS: 10 days 48f with pmh of anxiety, depression, PTSD, morbid obesity, asthma who presented for left po sterior total hip arthroplasty revision on 10/24/18. She had difficulty with ambulation and d eveloped shortness of breath. Hospitalist was consulted. CT of the chest has demonstrated no obvious pulmonary embolism, but there are opacities consistent with pneumonia vs edema. US lower extremity negative for DVT. She has been on lasix and zosyn. Pulmonology is consulted. Patient has been difficult to we an off bipap. SUBJECTIVE: Patient seen and examined. Breathing appears stable today and she is on high flow nasal can krishna. Patient seen earlier, but later in the morning the patient became agitated and threw he r breakfast plate on the floor. Pain appears to be controlled. No chest pain. No headache. No Abdominal pain, N/V or fever . No dizziness or lightheadedness. She is not willingly participating with therapy. Has not gotten out of bed. Scheduled Medications: albuterol-ipratropium 3 mL Nebulization Q4H While awake calcium citrate-vitamin D 1 tablet Oral BID celecoxib 200 mg Oral BID citalopram 40 mg Oral Daily enoxaparin 40 mg Subcutaneous Daily furosemide 40 mg Intravenous BID levoFLOXacin 750 mg Intravenous Q24H methylPREDNISolone sodium succinate 40 mg Intravenous 2 times per day morphine 15 mg Oral 2 times per day nicotine 1 patch Transdermal Daily pantoprazole 40 mg Oral BID AC senna 8.6 mg Oral Nightly Continuous Infusions PRN Medications acetaminophen, albuterol, bisacodyl, calcium carbonate, diphenhydrAMINE OR diphenhydrAM INE OR diphenhydrAMINE, docusate sodium, HYDROcodone-acetaminophen, HYDROmorphone, hydrO XYzine hydrochloride, lactulose, magnesium hydroxide, menthol throat lozenges, metoclopramid e, metoclopramide, ondansetron, ondansetron, phenol, polyethylene glycol, Potassium replacem ent - NON ICU AND Potassium AND potassium chloride AND potassium chloride AND* * potassium chloride IVPB (other volumes & diluents) AND potassium chloride IVPB (other volumes & diluents), prochlorperazine, traMADol Allergy: Allergies Allergen Reactions Bupropion Hives OBJECTIVE: Vitals: Patient Vitals for the past 24 hrs: BP Temp Temp src Pulse Resp SpO2 11/03/18 0334 116/70 37.2 C (98.9 F) Axillary 69 20 97 % 11/02/18 2302 37 C (98.6 F) Axillary 72 24 95 % 11/02/18 1926 114/56 36.9 C (98.5 F) Axillary 71 26 97 % 11/02/18 1615 114/58 36.5 C (97.7 F) Axillary 71 24 97 % 11/02/18 1528 110/60 73 24 97 % 11/02/18 1520 110/60 79 22 93 % 11/02/18 1135 110/60 37 C (98.6 F) Axillary 74 24 97 % 11/02/18 1123 71 24 99 % 11/02/18 0812 135/76 69 25 97 % I&O Detailed Table: Intake/Output Summary (Last 24 hours) at 11/03/2018 0744 Last data filed at 11/03/2018 0336 Gross per 24 hour Intake 1372 ml Output 3200 ml Net -1828 ml Patient Vitals for the past 96 hrs: Weight 11/02/18 0344 122.4 kg (269 lb 13.5 oz) 11/01/18 1111 122.2 kg (269 lb 6.4 oz) 11/01/18 0338 122.2 kg (269 lb 6.4 oz) 10/31/18 0314 123.2 kg (271 lb 9.7 oz) Physical Examination: Constitutional: Awake. In no distress. HEENT: Neck supple, no JVD, non icteric sclera. Cardiovascular: Normal rate, regular rhythm.. Exam reveals no appreciated gallop or fricti on rub. No murmur heard. Pulmonary/Chest: On high flow nasal canula. No crackles noted. Mild expiratory wheezes note d. Abdominal: Soft. Bowel sounds are normal. There is no tenderness. There is no rebound and no guarding. Extremeties/Musculoskeletal: Normal range of motion for patient. exhibits no tenderness. e xhibits no edema. Neurological: Alert and oriented to person, place, and time. No cranial nerve deficit hermes reciated. Skin: Skin is warm and dry. No rash noted. No erythema. No pallor. Psychiatric: Has a normal mood and affect given situation. Behavior is normal. LABS: Recent Labs Lab 11/03/1835711/02/1840711/01/1841610/28/18 0835 WBC 19.27* 19.10* 14.67* < > 15.60* HGB 11.0* 10.8* 11.1* < > 11.1* HCT 33.7* 32.7* 33.3* < > 33.1* PLT 410* 390 380 < > 296 MONOPCT -- -- -- -- 2.27 < > = values in this interval not displayed. Recent Labs Lab 11/03/1835711/02/1840711/01/18416 NA 140 139 140 K 4.0 3.6 4.0 CL 99 97* 100 CO2 39* 38* 36* BUN 39* 31* 24 CALCIUM 8.1* 8.7 8.5 Phosphorus: Lab Results Component Value Date PHOS 3.4 10/31/2018 No results for input(s): LABALBU in the last 168 hours. Recent Labs Lab 11/03/1835711/02/1840711/01/18416 MG 2.7* 2.8* 2.7* No results for input(s): AMYLASE in the last 168 hours. No results for input(s): PHART, PO2ART, RBA5HKW, I8AOPCFG, BEART in the last 168 hours. No results for input(s): APTT, INR, PTT in the last 168 hours. No results for input(s): TSH, T3FREE in the last 168 hours. Invalid input(s): FREET4 No results for input(s): TROPONINT in the last 168 hours. Invalid input(s): CKTOTAL, TROPONINI, CKMBINDEX Microbiology Results (72 hrs) Procedure Component Value Units Date/Time Culture, Respiratory, Lower, Smear [[id number]] Collected: 10/29/181728 Order Status: Completed Lab Status: Final result Updated: 10/29/182024 Specimen: Body Fluid from Sputum, Expectorated Gram Stain Result GREATER THAN 10 SEC/LPF Gram Stain Result GREATER THAN 10 WBCS/LPF Gram Stain Result -- 1+ GRAM POSITIVE COCCI Gram Stain Result -- 1+ GRAM NEGATIVE RODS Gram Stain Result -- 1+ GRAM POSITIVE RODS Gram Stain Result -- 1+ GRAM NEGATIVE COCCI Gram Stain Result -- 1+ YEAST RESULT SMEAR CONTAINS GREATER THAN 10 SEC/LPF SUGGESTIVE OF POOR QUALITY SPECIMEN. SPECI MEN WILL NOT BE CULTURED OR WILL BE CULTURED BY SPECIAL REQUEST ONLY. PLEASE RECOLLECT IF C LINICALLY INDICATED. SPECIMEN WILL BE HELD 48 HOURS. RESULT Testing performed at [facility], [address] [place] [address] Comment: Testing performed at [facility], [address] [place] [id number] RADIOLOGY: Recent Results (from the past 360 hour(s)) XR Pelvis 1 or 2 Vw Narrative PELVIS ONE VIEW CLINICAL INFORMATION: Status post revision left hip total hip arthroplasty. COMPARISON: XR ARTHROCENTESIS HIP LEFT (10/18/2018); CT PELVIS WO CONTRAST (09/19/2018); FINDINGS: Bilateral total hip prostheses. Status post revision left total hip arthroplasty. Femoral head prosthesis is well seated within the acetabular component. No displaced fracture fragments. IMPRESSION: Revised left hip prosthesis is well seated within the acetabular component. No unexpected postoperative findings. Dictated by: Korina Gabriel George Signed by: Korina Machado Michael Sign Date/Time: 10/24/2018 8:54 PM The radiologist has reviewed the images and edited/approved the report. For interventional procedures, the signing radiologist was present for the choi portions of the exam. XR Pelvis Complete 3 + Vw Narrative PELVIS COMPLETE MINIMUM THREE VIEWS CLINICAL INFORMATION: Post operative left hip. COMPARISON: XR PELVIS 1 OR 2 VW (10/24/2018); XR HIP 2 VIEW LEFT (09/11/2018); FINDINGS: Bilateral total hip prostheses, with 2 right and 3 left hip screws anchoring the bilateral acetabular prostheses. Moderate length left femoral prosthesis. No evidence of periprosthetic loosening. There apparently has been interval left hip surgery. No periprosthetic fracture or evidence of loosening. IMPRESSION: 1. Bilateral total hip prostheses appear unremarkable. Signed by: Korina Ahn Shawn Sign Date/Time: 10/27/2018 11:57 AM XR Chest AP Portable Narrative CHEST PORTABLE ONE VIEW CLINICAL INFORMATION: Shortness of breath COMPARISON: None FINDINGS: Bilateral perihilar congestion and diffuse interstitial opacities seen. There appears to be right paratracheal and right hilar prominence. Cardiomediastinal silhouette otherwise appears unremarkable. Osseous structures appear unremarkable. IMPRESSION: Bilateral perihilar congestion, diffuse interstitial opacities. Findings likely represent pulmonary edema, although pneumonia is also a consideration. Prominence of the right paratracheal and right hilar tissues, nonspecific. Follow-up to radiographic resolution in 6 weeks after appropriate therapy is recommended to exclude the possibility of a neoplastic process. Signed by: Korina Donovan Amit Sign Date/Time: 10/27/2018 5:[address] Angiogram Pulmonary w Contrast Narrative CT ANGIOGRAM PULMONARY CLINICAL INFORMATION: Shortness of breath, Tachycardia with chest discomfort. COMPARISON: XR CHEST AP PORTABLE (10/27/2018); PROCEDURE: Thin-section images of the entire chest after the administration of 100 ml Omnipaque 350 intravenous contrast. 3D MIP thin slab images and 2D multiplanar reconstructions performed. At least one of the following CT dose optimization techniques were used: Automated exposure control; Adjustment of mA and/or kV according to patient size; Use of iterative reconstruction technique. FINDINGS: PULMONARY ARTERIES: Diminished sensitivity due to combination of patient body habitus, respiratory motion artifact and beam hardening artifact. No gross evidence of a main pulmonary artery embolus seen. Lobar and segmental pulmonary arteries are not well assessed. RIGHT VENTRICLE TO LEFT VENTRICLE RATIO: Not applicable. (Maximum short axis diameter on axial image. Applicable only when pulmonary embolism present. Abnormal greater than or equal to 0.9.) CHEST Lungs, Pleura and Airways: Throughout both lungs, there are patchy airspace and ground-glass opacities seen, more prominent on the right. No pleural effusion seen Mediastinum: No cardiomegaly or pericardial effusion. Aorta does not appear aneurysmal. Lymph Nodes: There are no enlarged lymph nodes seen. Upper Abdomen: No significant abnormality appreciated. BODY WALL Soft Tissues: No signal abnormality appreciated. Bones: No acute or destructive osseous process seen. IMPRESSION: Diminished sensitivity. No gross evidence of a main pulmonary artery embolus seen. Lobar and segmental pulmonary arteries are not well assessed. If further imaging is warranted, consider correlation with V/Q scan. Bilateral pulmonary opacities, either pneumonia or edema. Follow-up to resolution is recommended to exclude the possibility of a neoplastic process. Signed by: Korina Donovan Amit Sign Date/Time: 10/27/2018 6:46 PM VAS Lower Extremity Venous Bilateral Narrative VENOUS BILATERAL FOR DVT ONLY CLINICAL INFORMATION: Rule out Deep Vein Thrombosis COMPARISON: None PROCEDURE: Duplex and color Doppler evaluation of the veins of the lower extremities including compression, spectral analysis and Doppler response to distal compression, Valsalva, and/or other maneuvers. FINDINGS: Right Lower Extremity: The common femoral vein, femoral vein and popliteal vein are compressible with normal augmentation. Greater saphenous vein unremarkable. Left Lower Extremity: The common femoral vein, femoral vein and popliteal vein are compressible with normal augmentation. Greater saphenous vein unremarkable. IMPRESSION: Bilateral lower extremity ultrasound negative for DVT. Signed by: Korina Ahn, Efe Sign Date/Time: 10/28/2018 1:20 PM XR Chest AP Portable Narrative CHEST PORTABLE ONE VIEW CLINICAL INFORMATION: Bilateral infiltrates attributed to aspiration vs pulmonary edema. pls note progression/improvement. COMPARISON: CT ANGIOGRAM PULMONARY W CONTRAST (10/27/2018); XR CHEST AP PORTABLE (10/27/2018); FINDINGS: The heart is normal in size. No mediastinal shift or widening is noted. No pneumothorax is present. Bilateral patchy opacities are seen throughout the lung bilaterally. There is blunting of the costophrenic angle. IMPRESSION: Bilateral opacities throughout the lung which may reflect residual airspace consolidation from pneumonia or pulmonary edema. These are stable. Signed by: Korina Alcaraz Kenneth Sign Date/Time: 10/30/2018 4:54 PM PROBLEM LIST Principal Problem: Mechanical instability of hip prosthesis Active Problems: Artificial joint pain Shortness of breath Acute respiratory failure with hypoxia Morbid obesity Vitamin D deficiency ASSESSMENT & PLAN Acute hypoxic respiratory failure - secondary to possible fluid overload vs aspiration type pneumonia - Completed 6 days of zosyn 11/02/18. Respiratory culture is mixed. Discussed with pulmonol carlo. IV levaquin started for atypical coverage. Today is day 2 of levaquin. - continue IV lasix. Monitor I and O, daily weight - pulmonology is consulted. She was started on IV steroids. Will decrease to 40q12. Has lua d some improvement. - echo demonstrates normal ejection fraction HTN - controlled. Monitor S/p left posterior hip arthroplasty revision - per orthopedic surgery - pain control - limit use of narcotics if possible - continue with pt/ot. Needs to mobilize if possible Morbid obesity - likely has underlying ALDAIR - continue with bipap for now. Needs outpatient sleep study. Depression/anxiety/ptsd - Discussed patient with [facility] [phone]. She has a diagnosis of PTSD a nd major depressive disorder with psychotic symptoms. She last saw her mental health nurse elvia Romero on September 12. The medications that she is on there includes celexa 40 mg daily Topimax 25 BID, hydroxyzine 50mg bid prn anxiety, clonidine 0.1 bid prn anxiety, pe rphenazine 8mg bid. Our pharmacy does not have perphenazine, I have discussed with pharmacy about any alternatives. They have recommended converting 8mg bid of perphenazine to 5mg bid olanzapine. - noted psych consult from 11/02/18 Nicotine use - advised to quit GI/DVT prophylaxis PT/OT Decision making capacity - consulted psychiatry. Appreciate recs. operators school manager to attempt to obtain more information from family. Kush Ge MD 11/03/2018 7:44 Greater than 35 minutes spent today overall in coordination of care, seeing and managing pa bozenant, review of data, coordination with staff, coordination with involved consultants, and including any scheduled multidisciplinary rounding focused on the patient with 50 percent or more spent seeing and managing patient and counseling/coordination. Dictation software, Dragon, used which may contain error for similar sounding words even af ter review. Personal communication requested for any clarification. Portions of this chart may have been copied from previous notes for continuity of care purp ose Kanwal Diego RN - 11/03/2018 0443 PDTHourly rounding uneventful. VSS, patient reported that her pain was brenda able after scheduled MS contin. Will continue to monitor. All questions and/or concerns answ ered. Chart check complete. Sanjuanita Romero RN - 1640 PDTPt became very anxious this morning after finding out she was not ready for discharge today. She stated that we have done wrong things to her and that we have not provi ded good care. She demanded to be transfer to a hospital in [place], or that she was goi ng to call the police and maxim the hospital. , lead nurse, family caseworker and risk notified. Pt remained calmed after risk talked to her. She continues on BiPAP and hi flow with meals. PRN norco given. Chart check complete. Sanjuanita Peters RN Carlo Dawn PA-C - 11/02/2018 1621 PDTFormatting of this note might be different from the origi nal. Patient pain is well controlled and is toe-touch weight bearing. She continues physical th erapy. Is on BiPAP at this time and continue to be managed by gas transfer operator and hospitalist . No new orthopedics events 1. Pain in prosthetic joint, initial encounter ([facility]) 2. Mechanical complication of prosthetic knee implant, initial encounter ([facility]) 3. Mechanical instability of hip prosthesis ([facility]) 4. Shortness of breath 5. Acute respiratory failure with hypoxia ([facility]) Past Medical History: Diagnosis Date Anxiety Anxious depression Arthralgia Arthritis Asthma not using inhalers DDD (degenerative disc disease), lumbar Deliberate self-cutting history of Depression Heartburn Hemorrhage of gastrointestinal tract 2015 upper and lower due ulcers Morbid obesity with BMI of 50.0-59.9, adult ([facility]) Pain in prosthetic joint (HCC) with instability Panic attacks states can be severe prior to surgeries PTSD (post-traumatic stress disorder) Current Facility-Administered Medications Medication Dose Route Frequency Provider Last Rate Last Dose acetaminophen (TYLENOL) tablet 650 mg 650 mg Oral Q6H PRN Kush Ge MD 650 mg at 10/31/18 1438 albuterol 90 mcg/puff inhaler 2 puff 2 puff Inhalation RT Q4H PRN Fab Vickers D 2 puff at 11/01/18 1619 albuterol-ipratropium 2.5-0.5 mg/3 mL nebulizer solution 3 mL 3 mL Nebulization Q4H Wh ile awake Yuki Pruett MD 3 mL at 11/02/18 1524 bisacodyl (DULCOLAX) suppository 10 mg 10 mg Rectal Daily PRN Miah Monique MD calcium carbonate (TUMS) chewable tablet 1,000 mg 1,000 mg Oral Q2H PRN Miah rod MD 1,000 mg at 10/27/18 0924 calcium citrate-vitamin D (CITRACAL+D) 315 mg-200 units per tablet 1 tablet 1 tablet O ral BID Yuki Pruett MD 1 tablet at 11/02/18 0851 celecoxib (CELEBREX) capsule 200 mg 200 mg Oral BID Miah Monique MD 200 mg at 11/02/18 0851 citalopram (celeXA) tablet 40 mg 40 mg Oral Daily Miah Monique MD 40 mg at 0851 diphenhydrAMINE (BENADRYL) injection 12.5 mg 12.5 mg Intravenous Q4H PRN Miah marrufo MD Or diphenhydrAMINE (BENADRYL) capsule 25 mg 25 mg Oral Q4H PRN Miah Monique MD Or diphenhydrAMINE (BENADRYL) 12.5 mg/5 mL liquid 25 mg 25 mg Oral Q4H PRN Miah rod MD docusate sodium (COLACE) capsule 100 mg 100 mg Oral BID PRN Miah Monique MD 10 0 mg at 10/31/18 0845 enoxaparin (LOVENOX) 40 mg/0.4 mL injection 40 mg 40 mg Subcutaneous Daily Yuki Pruett MD 40 mg at 11/02/18 0852 furosemide (LASIX) injection 40 mg 40 mg Intravenous BID Yuki Pruett MD 40 mg at 11/02/18 0852 HYDROcodone-acetaminophen (NORCO) 5-325 mg per tablet 1-2 tablet 1-2 tablet Oral Q6H P JUAN Ge MD HYDROmorphone (DILAUDID) injection 0.25-1 mg 0.25-1 mg Intravenous Q2H PRN Miah sweeney MD 1 mg at 10/25/18 0230 hydrOXYzine hydrochloride (ATARAX) tablet 10 mg 10 mg Oral TID PRN Miah Monique MD 10 mg at 11/02/18 1034 lactulose liquid 30 mL 30 mL Oral TID PRN Yuki Pruett MD 30 mL at 10/30 0921 magnesium hydroxide (MILK OF MAGNESIA) 400 mg/5 mL suspension 30 mL 30 mL Oral Nightly PRN Miah Monique MD menthol (HALLS) lozenge 1 lozenge 1 lozenge Buccal Q2H PRN Miah Monique MD methylPREDNISolone sodium succinate (solu-MEDROL) 40 mg/mL injection 40 mg 40 mg Intra venous 3 times per day Sandy Joseph MD 40 mg at 11/02/18 0615 metoclopramide (REGLAN) 5 mg/mL injection 10 mg 10 mg Intravenous Q4H PRN Miah donovan MD metoclopramide (REGLAN) tablet 10 mg 10 mg Oral Q4H PRN Miah Monique MD morphine (MS CONTIN) ER tablet 15 mg 15 mg Oral 2 times per day Miah Monique MD 15 mg at 11/02/18 0851 nicotine (NICODERM) 7 mg/24 hr 1 patch 1 patch Transdermal Daily Miah Monique MD 1 patch at 10/28/18 0805 ondansetron (ZOFRAN ODT) disintegrating tablet 4 mg 4 mg Oral Q6H PRN Miah arboleda MD ondansetron (ZOFRAN) injection 4 mg 4 mg Intravenous Q6H PRN Miah Monique MD pantoprazole (PROTONIX) DR tablet 40 mg 40 mg Oral BID ARLETTE Fine MD 40 mg at 11/02/18 0615 pharmacy consult - other medications/reasons Other Pharmacy Consult Yuki espinal MD phenol (CHLORASEPTIC) spray 1-2 spray 1-2 spray Mouth/Throat Q3H PRN Miah Monique MD 2 spray at 10/27/18 0628 piperacillin-tazobactam (ZOSYN) IVPB 3.375 g 3.375 g Intravenous Q8H Yuki espinal MD 12.5 mL/hr at 11/02/18 0615 3.375 g at 11/02/18 0615 polyethylene glycol (MIRALAX) powder 17 g 17 g Oral Daily PRN Miah Monique MD 17 g at 10/31/18 0845 potassium chloride (KLOR-CON) ER tablet 20-40 mEq 20-40 mEq Oral Daily PRN Kush khoury MD 20 mEq at 11/02/18 0851 And potassium chloride (KLOR-CON) packet 20-40 mEq 20-40 mEq Per G Tube Daily PRN Kush duron MD And potassium chloride 20 mEq in sodium chloride 0.9% 250 mL IVPB 20 mEq Intravenous Daily PRN Kush Ge MD And potassium chloride 40 mEq in sodium chloride 0.9% 500 mL IVPB 40 mEq Intravenous Daily PRN Kush Ge MD prochlorperazine tablet 10 mg 10 mg Oral Q6H PRN Miah Monique MD senna (SENOKOT) tablet 8.6 mg 8.6 mg Oral Nightly Yuki Pruett MD 8.6 mg at 11/01/182027 traMADol (ULTRAM) tablet 50 mg 50 mg Oral Q6H PRN Yuki Pruett MD 50 mg at 10/30/18 0313 Allergies Allergen Reactions Bupropion Hives Principal Problem: Mechanical instability of hip prosthesis Active Problems: Artificial joint pain Shortness of breath Acute respiratory failure with hypoxia Morbid obesity Vitamin D deficiency Blood pressure 114/58, pulse 71, temperature 36.5 C (97.7 F), temperature source Axilla ry, resp. rate 24, height 1.524 m (5'), weight 122.4 kg (269 lb 13.5 oz), last menstrual per iod 10/24/2018, SpO2 97 %, not currently . Physical Exam Constitutional: She is oriented to person, place, and time. She appears well-developed and well-nourished. HENT: Head: Normocephalic and atraumatic. Eyes: Pupils are equal, round, and reactive to light. EOM are normal. Pulmonary/Chest: Currently on bipap Neurological: She is alert and oriented to person, place, and time. Skin: Skin is warm and dry. Psychiatric: She has a normal mood and affect. Left Hip Exam Other Erythema: absent Sensation: normal Pulse: present Comments: Dressing intact no erythema, drainage or discharge ankle strength and rom presen t No changes from orthopedic standpoint Continue pain medications PRN Touchdown weightbearing Continue DVT prophylaxis Continue hospitalist and gas transfer operator management for comorbidities plan will be to eventua lly go to rehab or SNF once cleared by specialist Emilio Moreno 11/02/2018 Moses Solorzano, PT - 11/02/2018 1259 PDT 11/02/18 1259 PT Visit Summary PT Visit Type Missed Visit (patient unavailable) (Tele psych consult in progress) Next Visit Information 11/02, LTHA, 2PA Kush Miller MD - 11/02/[address] [facility] Service: Hospitalist Progress Note Pt: Sylvie Ramsey AGE/SEX: 48 y.o. female ROOM: 9119/9119-01 : 1970 PCP: No Physician on file ADMIT DATE: 10/24/2018 TODAY'S DATE: 11/02/2018 Hospital Day/Hospital Course: LOS: 9 days 48f with pmh of anxiety, depression, PTSD, morbid obesity, asthma who presented for left po sterior total hip arthroplasty revision on 10/24/18. She had difficulty with ambulation and d eveloped shortness of breath. Hospitalist was consulted. CT of the chest has demonstrated no obvious pulmonary embolism, but there are opacities consistent with pneumonia vs edema. US lower extremity negative for DVT. She has been on lasix and zosyn. Pulmonology is consulted. Patient has been difficult to we an off bipap. SUBJECTIVE: Patient seen and examined. States that she just wants to go home. Has questions about the s urgery. She was started on IV steroids 10/31/18. She is currently on pap therapy. Pain is co ntrolled. No chest pain. No headache. No Abdominal pain, N/V or fever. No dizziness or lig htheadedness. Scheduled Medications: albuterol-ipratropium 3 mL Nebulization Q4H While awake calcium citrate-vitamin D 1 tablet Oral BID celecoxib 200 mg Oral BID citalopram 40 mg Oral Daily enoxaparin 40 mg Subcutaneous Daily furosemide 40 mg Intravenous BID methylPREDNISolone sodium succinate 40 mg Intravenous 3 times per day morphine 15 mg Oral 2 times per day nicotine 1 patch Transdermal Daily pantoprazole 40 mg Oral BID AC pharmacy consult - other medications/reasons Other Pharmacy Consult piperacillin-tazobactam 3.375 g Intravenous Q8H senna 8.6 mg Oral Nightly Continuous Infusions PRN Medications acetaminophen, albuterol, bisacodyl, calcium carbonate, diphenhydrAMINE OR diphenhydrAM INE OR diphenhydrAMINE, docusate sodium, HYDROcodone-acetaminophen, HYDROmorphone, hydrO XYzine hydrochloride, lactulose, magnesium hydroxide, menthol throat lozenges, metoclopramid e, metoclopramide, ondansetron, ondansetron, phenol, polyethylene glycol, Potassium replacem ent - NON ICU AND Potassium AND potassium chloride AND potassium chloride AND* * potassium chloride IVPB (other volumes & diluents) AND potassium chloride IVPB (other volumes & diluents), prochlorperazine, traMADol Allergy: Allergies Allergen Reactions Bupropion Hives OBJECTIVE: Vitals: Patient Vitals for the past 24 hrs: BP Temp Temp src Pulse Resp SpO2 Weight 11/02/18 0715 135/76 36.9 C (98.4 F) Axillary 83 20 97 % 11/02/18 0344 131/65 36.8 C (98.3 F) Axillary 70 20 95 % 122.4 kg (269 lb 13.5 oz) 11/01/18 2324 123/64 36.9 C (98.5 F) Oral 72 22 96 % 11/01/18 1936 130/65 37.2 C (98.9 F) Axillary 76 94 % 11/01/18 1631 126/66 36.4 C (97.5 F) Oral 80 22 90 % 11/01/18 1540 74 24 91 % 11/01/18 1202 121/68 37 C (98.6 F) Oral 75 24 94 % 11/01/18 1156 75 27 96 % 11/01/18 1111 122.2 kg (269 lb 6.4 oz) 11/01/18 0827 130/69 37.1 C (98.8 F) Axillary 77 22 95 % I&O Detailed Table: Intake/Output Summary (Last 24 hours) at 11/02/2018 0744 Last data filed at 11/02/2018 0345 Gross per 24 hour Intake 1776 ml Output 2300 ml Net -524 ml Patient Vitals for the past 96 hrs: Weight 11/02/18 0344 122.4 kg (269 lb 13.5 oz) 11/01/18 1111 122.2 kg (269 lb 6.4 oz) 11/01/18 0338 122.2 kg (269 lb 6.4 oz) 10/31/18 0314 123.2 kg (271 lb 9.7 oz) Physical Examination: Constitutional: Awake, interactive. Lying flat with pap. HEENT: Neck supple, no JVD, non icteric sclera. Cardiovascular: Normal rate, regular rhythm.. Exam reveals no appreciated gallop or fricti on rub. No murmur heard. Pulmonary/Chest: coarse sounds. No crackles noted. Mild expiratory wheezes noted. Abdominal: Soft. Bowel sounds are normal. There is no tenderness. There is no rebound and no guarding. Extremeties/Musculoskeletal: Normal range of motion for patient. exhibits no tenderness. e xhibits no edema. Neurological: Alert and oriented to person, place, and time. No cranial nerve deficit hermes reciated. Skin: Skin is warm and dry. No rash noted. No erythema. No pallor. Psychiatric: Has a normal mood and affect given situation. Behavior is normal. LABS: Recent Labs Lab 11/02/18 0408 11/01/18 0417 10/31/18 0414 10/28/18 0835 WBC 19.10* 14.67* 13.03* < > 15.60* HGB 10.8* 11.1* 10.8* < > 11.1* HCT 32.7* 33.3* 32.1* < > 33.1* PLT 390 380 356 < > 296 MONOPCT -- -- -- -- 2.27 < > = values in this interval not displayed. Recent Labs Lab 11/02/18 0408 11/01/187 10/31/18 1815 10/31/18413 NA 139 140 -- 141 K 3.6 4.0 3.8 3.6 CL 97* 100 -- 101 CO2 38* 36* -- 35* BUN 31* 24 -- 20 CALCIUM 8.7 8.5 -- 8.1* Phosphorus: Lab Results Component Value Date PHOS 3.4 10/31/2018 No results for input(s): LABALBU in the last 168 hours. Recent Labs Lab 11/02/1840711/01/1841610/31/18413 MG 2.8* 2.7* 2.3 No results for input(s): AMYLASE in the last 168 hours. No results for input(s): PHART, PO2ART, [id number], J5GMESNF, BEART in the last 168 hours. No results for input(s): APTT, INR, PTT in the last 168 hours. No results for input(s): TSH, T3FREE in the last 168 hours. Invalid input(s): FREET4 No results for input(s): TROPONINT in the last 168 hours. Invalid input(s): CKTOTAL, TROPONINI, CKMBINDEX Microbiology Results (72 hrs) Procedure Component Value Units Date/Time Culture, Respiratory, Lower, Smear [[id number]] Collected: 10/29/181728 Order Status: Completed Lab Status: Final result Updated: 10/29/182024 Specimen: Body Fluid from Sputum, Expectorated Gram Stain Result GREATER THAN 10 SEC/LPF Gram Stain Result GREATER THAN 10 WBCS/LPF Gram Stain Result -- 1+ GRAM POSITIVE COCCI Gram Stain Result -- 1+ GRAM NEGATIVE RODS Gram Stain Result -- 1+ GRAM POSITIVE RODS Gram Stain Result -- 1+ GRAM NEGATIVE COCCI Gram Stain Result -- 1+ YEAST RESULT SMEAR CONTAINS GREATER THAN 10 SEC/LPF SUGGESTIVE OF POOR QUALITY SPECIMEN. SPECI MEN WILL NOT BE CULTURED OR WILL BE CULTURED BY SPECIAL REQUEST ONLY. PLEASE RECOLLECT IF C LINICALLY INDICATED. SPECIMEN WILL BE HELD 48 HOURS. RESULT Testing performed at [facility], [address] [place] [address] Comment: Testing performed at [facility], [address] [place] [address] RADIOLOGY: Recent Results (from the past 360 hour(s)) XR Pelvis 1 or 2 Vw Narrative PELVIS ONE VIEW CLINICAL INFORMATION: Status post revision left hip total hip arthroplasty. COMPARISON: XR ARTHROCENTESIS HIP LEFT (10/18/2018); CT PELVIS WO CONTRAST (09/19/2018); FINDINGS: Bilateral total hip prostheses. Status post revision left total hip arthroplasty. Femoral head prosthesis is well seated within the acetabular component. No displaced fracture fragments. IMPRESSION: Revised left hip prosthesis is well seated within the acetabular component. No unexpected postoperative findings. Dictated by: Korina Gabriel George Signed by: Korina Machado Michael Sign Date/Time: 10/24/2018 8:54 PM The radiologist has reviewed the images and edited/approved the report. For interventional procedures, the signing radiologist was present for the choi portions of the exam. XR Pelvis Complete 3 + Vw Narrative PELVIS COMPLETE MINIMUM THREE VIEWS CLINICAL INFORMATION: Post operative left hip. COMPARISON: XR PELVIS 1 OR 2 VW (10/24/2018); XR HIP 2 VIEW LEFT (09/11/2018); FINDINGS: Bilateral total hip prostheses, with 2 right and 3 left hip screws anchoring the bilateral acetabular prostheses. Moderate length left femoral prosthesis. No evidence of periprosthetic loosening. There apparently has been interval left hip surgery. No periprosthetic fracture or evidence of loosening. IMPRESSION: 1. Bilateral total hip prostheses appear unremarkable. Signed by: Korina Ahn Shawn Sign Date/Time: 10/27/2018 11:57 AM XR Chest AP Portable Narrative CHEST PORTABLE ONE VIEW CLINICAL INFORMATION: Shortness of breath COMPARISON: None FINDINGS: Bilateral perihilar congestion and diffuse interstitial opacities seen. There appears to be right paratracheal and right hilar prominence. Cardiomediastinal silhouette otherwise appears unremarkable. Osseous structures appear unremarkable. IMPRESSION: Bilateral perihilar congestion, diffuse interstitial opacities. Findings likely represent pulmonary edema, although pneumonia is also a consideration. Prominence of the right paratracheal and right hilar tissues, nonspecific. Follow-up to radiographic resolution in 6 weeks after appropriate therapy is recommended to exclude the possibility of a neoplastic process. Signed by: Korina Donovan Amit Sign Date/Time: 10/27/2018 5:[address] Angiogram Pulmonary w Contrast Narrative CT ANGIOGRAM PULMONARY CLINICAL INFORMATION: Shortness of breath, Tachycardia with chest discomfort. COMPARISON: XR CHEST AP PORTABLE (10/27/2018); PROCEDURE: Thin-section images of the entire chest after the administration of 100 ml Omnipaque 350 intravenous contrast. 3D MIP thin slab images and 2D multiplanar reconstructions performed. At least one of the following CT dose optimization techniques were used: Automated exposure control; Adjustment of mA and/or kV according to patient size; Use of iterative reconstruction technique. FINDINGS: PULMONARY ARTERIES: Diminished sensitivity due to combination of patient body habitus, respiratory motion artifact and beam hardening artifact. No gross evidence of a main pulmonary artery embolus seen. Lobar and segmental pulmonary arteries are not well assessed. RIGHT VENTRICLE TO LEFT VENTRICLE RATIO: Not applicable. (Maximum short axis diameter on axial image. Applicable only when pulmonary embolism present. Abnormal greater than or equal to 0.9.) CHEST Lungs, Pleura and Airways: Throughout both lungs, there are patchy airspace and ground-glass opacities seen, more prominent on the right. No pleural effusion seen Mediastinum: No cardiomegaly or pericardial effusion. Aorta does not appear aneurysmal. Lymph Nodes: There are no enlarged lymph nodes seen. Upper Abdomen: No significant abnormality appreciated. BODY WALL Soft Tissues: No signal abnormality appreciated. Bones: No acute or destructive osseous process seen. IMPRESSION: Diminished sensitivity. No gross evidence of a main pulmonary artery embolus seen. Lobar and segmental pulmonary arteries are not well assessed. If further imaging is warranted, consider correlation with V/Q scan. Bilateral pulmonary opacities, either pneumonia or edema. Follow-up to resolution is recommended to exclude the possibility of a neoplastic process. Signed by: Korina Donovan Amit Sign Date/Time: 10/27/2018 6:46 PM VAS Lower Extremity Venous Bilateral Narrative VENOUS BILATERAL FOR DVT ONLY CLINICAL INFORMATION: Rule out Deep Vein Thrombosis COMPARISON: None PROCEDURE: Duplex and color Doppler evaluation of the veins of the lower extremities including compression, spectral analysis and Doppler response to distal compression, Valsalva, and/or other maneuvers. FINDINGS: Right Lower Extremity: The common femoral vein, femoral vein and popliteal vein are compressible with normal augmentation. Greater saphenous vein unremarkable. Left Lower Extremity: The common femoral vein, femoral vein and popliteal vein are compressible with normal augmentation. Greater saphenous vein unremarkable. IMPRESSION: Bilateral lower extremity ultrasound negative for DVT. Signed by: Korina Ahn Shawn Sign Date/Time: 10/28/2018 1:20 PM XR Chest AP Portable Narrative CHEST PORTABLE ONE VIEW CLINICAL INFORMATION: Bilateral infiltrates attributed to aspiration vs pulmonary edema. pls note progression/improvement. COMPARISON: CT ANGIOGRAM PULMONARY W CONTRAST (10/27/2018); XR CHEST AP PORTABLE (10/27/2018); FINDINGS: The heart is normal in size. No mediastinal shift or widening is noted. No pneumothorax is present. Bilateral patchy opacities are seen throughout the lung bilaterally. There is blunting of the costophrenic angle. IMPRESSION: Bilateral opacities throughout the lung which may reflect residual airspace consolidation from pneumonia or pulmonary edema. These are stable. Signed by: Korina Alcaraz Richard Sign Date/Time: 10/30/2018 4:54 PM PROBLEM LIST Principal Problem: Mechanical instability of hip prosthesis Active Problems: Artificial joint pain Shortness of breath Acute respiratory failure with hypoxia Morbid obesity Vitamin D deficiency ASSESSMENT & PLAN Acute hypoxic respiratory failure - secondary to possible fluid overload vs aspiration type pneumonia - continue zosyn for now. Today is day 6 of antibiotics. Respiratory culture is mixed - continue IV lasix. Her fluid balance is now negative per charting. Monitor I and O, daily weight - pulmonology is consulted. Continue bipap for now. She was started on IV steroids. and dec reased today. Has had some improvement. - echo demonstrates normal ejection fraction HTN - controlled. Monitor S/p left posterior hip arthroplasty revision - per orthopedic surgery - pain control - limit use of narcotics if possible - continue with pt/ot. Needs to mobilize if possible Morbid obesity - likely has underlying ALDAIR - continue with bipap for now. Needs outpatient sleep study. Depression - continue celexa Nicotine use - advised to quit GI/DVT prophylaxis PT/OT Decision making capacity - consulted psychiatry. Appreciate recs. operators school manager to attempt to obtain more information from family. Kush Ge MD 11/02/2018 7:44 Greater than 35 minutes spent today overall in coordination of care, seeing and managing pa tient, review of data, coordination with staff, coordination with involved consultants, and including any scheduled multidisciplinary rounding focused on the patient with 50 percent or more spent seeing and managing patient and counseling/coordination. Dictation software, Workspace, used which may contain error for similar sounding words even af ter review. Personal communication requested for any clarification. Portions of this chart may have been copied from previous notes for continuity of care purp ose Kanwal Diego RN - 11/02/2018 0546 PDTVSS, patient rested comfortably throughout shift. Hourly rounding unevent ful Chart check complete. Emilio Dawn PA-C - 0 11/01/2018 1501 PDT Patient notes that her pain continues to be well controlled. She is working well with phys ical therapy and continues to be touchdown weightbearing no new events noted. She continues to be managed by hospitalist and gas transfer operator and is currently on BiPAP 1. Pain in prosthetic joint, initial encounter ([facility]) 2. Mechanical complication of prosthetic knee implant, initial encounter ([facility]) 3. Mechanical instability of hip prosthesis ([facility]) 4. Shortness of breath 5. Acute respiratory failure with hypoxia ([facility]) Past Medical History: Diagnosis Date Anxiety Anxious depression Arthralgia Arthritis Asthma not using inhalers DDD (degenerative disc disease), lumbar Deliberate self-cutting history of Depression Heartburn Hemorrhage of gastrointestinal tract 2015 upper and lower due ulcers Morbid obesity with BMI of 50.0-59.9, adult ([facility]) Pain in prosthetic joint ([facility]) with instability Panic attacks states can be severe prior to surgeries PTSD (post-traumatic stress disorder) Current Facility-Administered Medications Medication Dose Route Frequency Provider Last Rate Last Dose acetaminophen (TYLENOL) tablet 650 mg 650 mg Oral Q6H PRN Kush Ge MD 650 mg at 10/31/18 1438 albuterol 90 mcg/puff inhaler 2 puff 2 puff Inhalation RT Q4H PRN Fab Vickers D 2 puff at 10/27/18 0528 albuterol-ipratropium 2.5-0.5 mg/3 mL nebulizer solution 3 mL 3 mL Nebulization Q4H Wh ile awake Yuki Pruett MD 3 mL at 11/01/18 1153 bisacodyl (DULCOLAX) suppository 10 mg 10 mg Rectal Daily PRN Miah Monique MD calcium carbonate (TUMS) chewable tablet 1,000 mg 1,000 mg Oral Q2H PRN Miah rod MD 1,000 mg at 10/27/18 0924 calcium citrate-vitamin D (CITRACAL+D) 315 mg-200 units per tablet 1 tablet 1 tablet O ral BID Yuki Pruett MD 1 tablet at 11/01/18 0846 celecoxib (CELEBREX) capsule 200 mg 200 mg Oral BID Miah Monique MD 200 mg at 11/01/18 0846 citalopram (celeXA) tablet 40 mg 40 mg Oral Daily Miah Monique MD 40 mg at 0846 diphenhydrAMINE (BENADRYL) injection 12.5 mg 12.5 mg Intravenous Q4H PRN Miah marrufo MD Or diphenhydrAMINE (BENADRYL) capsule 25 mg 25 mg Oral Q4H PRN Miah Monique MD Or diphenhydrAMINE (BENADRYL) 12.5 mg/5 mL liquid 25 mg 25 mg Oral Q4H PRN Miah rod MD docusate sodium (COLACE) capsule 100 mg 100 mg Oral BID PRN Miah Monique MD 10 0 mg at 10/31/18 0845 enoxaparin (LOVENOX) 40 mg/0.4 mL injection 40 mg 40 mg Subcutaneous Daily Yuki Pruett MD 40 mg at 11/01/18 0846 furosemide (LASIX) injection 40 mg 40 mg Intravenous BID Yuki Pruett MD 40 mg at 11/01/18 0846 HYDROcodone-acetaminophen (NORCO) 5-325 mg per tablet 1 tablet 1 tablet Oral Q6H PRN Deepthi Ge MD HYDROmorphone (DILAUDID) injection 0.25-1 mg 0.25-1 mg Intravenous Q2H PRN Miah sweeney MD 1 mg at 10/25/18 0230 hydrOXYzine hydrochloride (ATARAX) tablet 10 mg 10 mg Oral TID PRN Miah Monique MD 10 mg at 10/31/18 2050 lactulose liquid 30 mL 30 mL Oral TID PRN Yuki Pruett MD 30 mL at 10/30 0921 magnesium hydroxide (MILK OF MAGNESIA) 400 mg/5 mL suspension 30 mL 30 mL Oral Nightly PRN Miah Monique MD menthol (HALLS) lozenge 1 lozenge 1 lozenge Buccal Q2H PRN Miah Monique MD methylPREDNISolone sodium succinate (solu-MEDROL) 62.5 mg/mL injection 80 mg 80 mg Int ravenous 3 times per day Sandy Joseph MD 80 mg at 11/01/18 1343 metoclopramide (REGLAN) 5 mg/mL injection 10 mg 10 mg Intravenous Q4H PRN Miah donovan MD metoclopramide (REGLAN) tablet 10 mg 10 mg Oral Q4H PRN Miah Monique MD morphine (MS CONTIN) ER tablet 15 mg 15 mg Oral 2 times per day Miah Monique MD 15 mg at 11/01/18 0846 nicotine (NICODERM) 7 mg/24 hr 1 patch 1 patch Transdermal Daily Miah Monique MD 1 patch at 10/28/18 0805 ondansetron (ZOFRAN ODT) disintegrating tablet 4 mg 4 mg Oral Q6H PRN Miah arboleda MD ondansetron (ZOFRAN) injection 4 mg 4 mg Intravenous Q6H PRN Miah Monique MD pantoprazole (PROTONIX) DR tablet 40 mg 40 mg Oral BID AC Harpal Fine MD 40 mg at 11/01/18 0846 pharmacy consult - other medications/reasons Other Pharmacy Consult Yuki espinal MD phenol (CHLORASEPTIC) spray 1-2 spray 1-2 spray Mouth/Throat Q3H PRN Miah Monique MD 2 spray at 10/27/18 0628 piperacillin-tazobactam (ZOSYN) IVPB 3.375 g 3.375 g Intravenous Q8H Yuki espinal MD 12.5 mL/hr at 11/01/18 1343 3.375 g at 11/01/18 1343 polyethylene glycol (MIRALAX) powder 17 g 17 g Oral Daily PRN Miah Monique MD 17 g at 10/31/18 0845 potassium chloride (KLOR-CON) ER tablet 20-40 mEq 20-40 mEq Oral Daily PRN Kush khoury MD 20 mEq at 11/01/18 1138 And potassium chloride (KLOR-CON) packet 20-40 mEq 20-40 mEq Per G Tube Daily PRN Kush duron MD And potassium chloride 20 mEq in sodium chloride 0.9% 250 mL IVPB 20 mEq Intravenous Daily PRN Kush Ge MD And potassium chloride 40 mEq in sodium chloride 0.9% 500 mL IVPB 40 mEq Intravenous Daily PRN Kush Ge MD prochlorperazine tablet 10 mg 10 mg Oral Q6H PRN Miah Monique MD senna (SENOKOT) tablet 8.6 mg 8.6 mg Oral Nightly Yuki Pruett MD 8.6 mg at 10/31/18 2042 traMADol (ULTRAM) tablet 50 mg 50 mg Oral Q6H PRN Yuki Pruett MD 50 mg at 10/30/18 0313 Allergies Allergen Reactions Bupropion Hives Principal Problem: Mechanical instability of hip prosthesis Active Problems: Artificial joint pain Shortness of breath Acute respiratory failure with hypoxia Morbid obesity Vitamin D deficiency Blood pressure 121/68, pulse 75, temperature 37 C (98.6 F), temperature source Oral, re sp. rate 24, height 1.524 m (5'), weight 122.2 kg (269 lb 6.4 oz), last menstrual period , SpO2 94 %, not currently . Physical Exam Constitutional: She is oriented to person, place, and time. HENT: Head: Normocephalic and atraumatic. Eyes: Pupils are equal, round, and reactive to light. EOM are normal. Pulmonary/Chest: She is in respiratory distress. Currently on bipap Neurological: She is alert and oriented to person, place, and time. Skin: Skin is warm and dry. Left Hip Exam Other Erythema: absent Pulse: present Comments: Ankle strength 5/5 Dressing clean dry and intact From an orthopedic standpoint patient is stable continue management by hospitalist and pulm onology team. Continue touch down weight bearing Continue dvt prophylaxis Pain medications prn Plan for discharge to SNF when cleared from medicien standpoint Emilio Moreno 11/01/[address] - 11/01/2018 1117 PDT 11/01/18 1111 Reason for Assessment Reason For Assessment identified at risk by screening criteria;per organizational policy (Triggers for LOS. ) Diagnosis (Pt admitted for mechanical instability of hip prosthesis, is POD # 8 L total hip arthropla sty revision. Pt resting in bed, on bipap at time of visit, reports her appetite is improvin g. ) Nutrition/Diet History Typical Food/Fluid Intake Drinking fluids ad adalberto. Meal/Snack Patterns Current diet: General. Pt reports appetite improving, has been eating 3 meals a day now and intake of meals is at least 75%. This morning for breakfast she ate > 9 0% had eggs, fruit, cottage amol, and amol. Supplemental Drinks/Foods/Additives Supplements are not indicated at this time. Admit Weight Admit Weight 119 kg (262 lb 5.6 oz) Current Weight Weight 122.2 kg (269 lb 6.4 oz) Usual Body Weight (UBW) Time Period Related To Weight Change (wt is up 3.2 kg since admit. ) Body Mass Index (BMI) BMI Grade other (see comments) (BMI 51.2) Labs/Tests/Procedures/Meds Additional Documentation Diagnostic Tests/Procedures (Group) (Labs reviewed. ) Pertinent Medications Reviewed reviewed Pertinent Medications Comments Vit D, Ca, solumedrol, lasix. Nutrition Prescription Ordered Nutrition Order Comments Continue general diet as ordered. Will continue to monitor intake for adequacy. Nutrition Risk Level Of Risk low PES Statement Nutrition Diagnosis PES Statement No nutrition problem identified at this time, will contin ue to follow per protocol. Assessment Required Follow Up 7 days (9/4 L ) Rodney Zheng RD, CD Kush Miller MD - 0 11/01/[address] [facility] Service: Hospitalist Progress Note Pt: Sylvie Ramsey AGE/SEX: 48 y.o. female ROOM: 9119/9119-01 : 1970 PCP: No Physician on file ADMIT DATE: 10/24/2018 TODAY'S DATE: 11/01/2018 Hospital Day/Hospital Course: LOS: 8 days 48f with pmh of anxiety, depression, PTSD, morbid obesity, asthma who presented for left po sterior total hip arthroplasty revision on 10/24/18. She had difficulty with ambulation and d eveloped shortness of breath. Hospitalist was consulted. CT of the chest has demonstrated no obvious pulmonary embolism, but there are opacities consistent with pneumonia vs edema. US lower extremity negative for DVT. She has been on lasix and zosyn. Pulmonology is consulted. Patient has been difficult to we an off bipap. SUBJECTIVE: Patient seen and examined. She was started on IV steroids yesterday. She has been able to s ustain longer periods of time on high flow nasal canula, but is still requiring pap therapy. Overall the patient states she feels a little better today. Pain is controlled. No chest paolo n. No headache. No Abdominal pain, N/V or fever. No dizziness or lightheadedness. Scheduled Medications: albuterol-ipratropium 3 mL Nebulization Q4H While awake calcium citrate-vitamin D 1 tablet Oral BID celecoxib 200 mg Oral BID citalopram 40 mg Oral Daily enoxaparin 40 mg Subcutaneous Daily furosemide 40 mg Intravenous BID methylPREDNISolone sodium succinate 80 mg Intravenous 3 times per day morphine 15 mg Oral 2 times per day nicotine 1 patch Transdermal Daily pantoprazole 40 mg Oral BID AC pharmacy consult - other medications/reasons Other Pharmacy Consult piperacillin-tazobactam 3.375 g Intravenous Q8H senna 8.6 mg Oral Nightly Continuous Infusions PRN Medications acetaminophen, albuterol, bisacodyl, calcium carbonate, diphenhydrAMINE OR diphenhydrAM INE OR diphenhydrAMINE, docusate sodium, HYDROcodone-acetaminophen, HYDROmorphone, hydrO XYzine hydrochloride, lactulose, magnesium hydroxide, menthol throat lozenges, metoclopramid e, metoclopramide, ondansetron, ondansetron, phenol, polyethylene glycol, Potassium replacem ent - NON ICU AND Potassium AND potassium chloride AND potassium chloride AND* * potassium chloride IVPB (other volumes & diluents) AND potassium chloride IVPB (other volumes & diluents), prochlorperazine, traMADol Allergy: Allergies Allergen Reactions Bupropion Hives OBJECTIVE: Vitals: Patient Vitals for the past 24 hrs: BP Temp Temp src Pulse Resp SpO2 Weight 11/01/18 0715 78 26 96 % 11/01/18 0338 142/70 37 C (98.6 F) Oral 74 20 90 % 122.2 kg (269 lb 6.4 oz) 10/31/18 2344 147/82 37.4 C (99.3 F) Oral 89 24 95 % 10/31/18 2027 127/64 36.9 C (98.5 F) Axillary 84 26 93 % 10/31/18 1757 129/64 37.5 C (99.5 F) Axillary 79 24 93 % 10/31/18 1549 90 94 % 10/31/18 1542 84 96 % 10/31/18 1128 164/70 36.5 C (97.7 F) Axillary 89 30 92 % 10/31/18 1104 86 92 % 10/31/18 0932 83 24 95 % 10/31/18 0920 96 26 98 % 10/31/18 0818 150/85 36.8 C (98.2 F) Axillary 95 21 93 % 10/31/18 0757 89 24 91 % 10/31/18 0747 85 98 % I&O Detailed Table: Intake/Output Summary (Last 24 hours) at 11/01/2018 0736 Last data filed at 11/01/2018 0600 Gross per 24 hour Intake 535.8 ml Output 1775 ml Net -1239.2 ml Patient Vitals for the past 96 hrs: Weight 11/01/18 0338 122.2 kg (269 lb 6.4 oz) 10/31/18 0314 123.2 kg (271 lb 9.7 oz) 10/29/18 0326 126.4 kg (278 lb 10.6 oz) Physical Examination: Constitutional: Awake, interactive. No distress. HEENT: Neck supple, no JVD, non icteric sclera. Cardiovascular: Normal rate, regular rhythm.. Exam reveals no appreciated gallop or fricti on rub. No murmur heard. Pulmonary/Chest: coarse sounds. Bipap.There are some expiratory wheezes noted. Abdominal: Soft. Bowel sounds are normal. There is no tenderness. There is no rebound and no guarding. Extremeties/Musculoskeletal: Normal range of motion for patient. exhibits no tenderness. e xhibits no edema. Neurological: Alert and oriented to person, place, and time. No cranial nerve deficit hermes reciated. Skin: Skin is warm and dry. No rash noted. No erythema. No pallor. Psychiatric: Has a normal mood and affect given situation. Behavior is normal. LABS: Recent Labs Lab 11/01/1841610/31/1841310/30/1841710/28/1835 WBC 14.67* 13.03* 13.87* < > 15.60* HGB 11.1* 10.8* 10.9* < > 11.1* HCT 33.3* 32.1* 32.6* < > 33.1* PLT 380 356 385 < > 296 MONOPCT -- -- -- -- 2.27 < > = values in this interval not displayed. Recent Labs Lab 11/01/1841610/31/[id number]/31/1841310/30/18417 NA 140 -- 141 141 K 4.0 3.8 3.6 3.9 CL 100 -- 101 103 CO2 36* -- 35* 32 BUN 24 -- 20 19 CALCIUM 8.5 -- 8.1* 7.9* Phosphorus: Lab Results Component Value Date PHOS 3.4 10/31/2018 No results for input(s): LABALBU in the last 168 hours. Recent Labs Lab 11/01/1841610/31/1841310/30/18417 MG 2.7* 2.3 2.3 No results for input(s): AMYLASE in the last 168 hours. No results for input(s): PHART, PO2ART, EVU6OLJ, G1RKHAXV, BEART in the last 168 hours. No results for input(s): APTT, INR, PTT in the last 168 hours. No results for input(s): TSH, T3FREE in the last 168 hours. Invalid input(s): FREET4 No results for input(s): TROPONINT in the last 168 hours. Invalid input(s): CKTOTAL, TROPONINI, CKMBINDEX Microbiology Results (72 hrs) Procedure Component Value Units Date/Time Culture, Respiratory, Lower, Smear [[id number]] Collected: 10/29/181728 Order Status: Completed Lab Status: Final result Updated: 10/29/182024 Specimen: Body Fluid from Sputum, Expectorated Gram Stain Result GREATER THAN 10 SEC/LPF Gram Stain Result GREATER THAN 10 WBCS/LPF Gram Stain Result -- 1+ GRAM POSITIVE COCCI Gram Stain Result -- 1+ GRAM NEGATIVE RODS Gram Stain Result -- 1+ GRAM POSITIVE RODS Gram Stain Result -- 1+ GRAM NEGATIVE COCCI Gram Stain Result -- 1+ YEAST RESULT SMEAR CONTAINS GREATER THAN 10 SEC/LPF SUGGESTIVE OF POOR QUALITY SPECIMEN. SPECI MEN WILL NOT BE CULTURED OR WILL BE CULTURED BY SPECIAL REQUEST ONLY. PLEASE RECOLLECT IF C LINICALLY INDICATED. SPECIMEN WILL BE HELD 48 HOURS. RESULT Testing performed at [facility], [address] [place] [id number] Comment: Testing performed at [facility], [address] [place] [id number] RADIOLOGY: Recent Results (from the past 360 hour(s)) XR Pelvis 1 or 2 Vw Narrative PELVIS ONE VIEW CLINICAL INFORMATION: Status post revision left hip total hip arthroplasty. COMPARISON: XR ARTHROCENTESIS HIP LEFT (10/18/2018); CT PELVIS WO CONTRAST (09/19/2018); FINDINGS: Bilateral total hip prostheses. Status post revision left total hip arthroplasty. Femoral head prosthesis is well seated within the acetabular component. No displaced fracture fragments. IMPRESSION: Revised left hip prosthesis is well seated within the acetabular component. No unexpected postoperative findings. Dictated by: Korina Gabriel George Signed by: Korina Machado Michael Sign Date/Time: 10/24/2018 8:54 PM The radiologist has reviewed the images and edited/approved the report. For interventional procedures, the signing radiologist was present for the choi portions of the exam. XR Pelvis Complete 3 + Vw Narrative PELVIS COMPLETE MINIMUM THREE VIEWS CLINICAL INFORMATION: Post operative left hip. COMPARISON: XR PELVIS 1 OR 2 VW (10/24/2018); XR HIP 2 VIEW LEFT (09/11/2018); FINDINGS: Bilateral total hip prostheses, with 2 right and 3 left hip screws anchoring the bilateral acetabular prostheses. Moderate length left femoral prosthesis. No evidence of periprosthetic loosening. There apparently has been interval left hip surgery. No periprosthetic fracture or evidence of loosening. IMPRESSION: 1. Bilateral total hip prostheses appear unremarkable. Signed by: Korina Ahn Shawn Sign Date/Time: 10/27/2018 11:57 AM XR Chest AP Portable Narrative CHEST PORTABLE ONE VIEW CLINICAL INFORMATION: Shortness of breath COMPARISON: None FINDINGS: Bilateral perihilar congestion and diffuse interstitial opacities seen. There appears to be right paratracheal and right hilar prominence. Cardiomediastinal silhouette otherwise appears unremarkable. Osseous structures appear unremarkable. IMPRESSION: Bilateral perihilar congestion, diffuse interstitial opacities. Findings likely represent pulmonary edema, although pneumonia is also a consideration. Prominence of the right paratracheal and right hilar tissues, nonspecific. Follow-up to radiographic resolution in 6 weeks after appropriate therapy is recommended to exclude the possibility of a neoplastic process. Signed by: Korina Donovan, Gilles Sign Date/Time: 10/27/2018 5:[address] Angiogram Pulmonary w Contrast Narrative CT ANGIOGRAM PULMONARY CLINICAL INFORMATION: Shortness of breath, Tachycardia with chest discomfort. COMPARISON: XR CHEST AP PORTABLE (10/27/2018); PROCEDURE: Thin-section images of the entire chest after the administration of 100 ml Omnipaque 350 intravenous contrast. 3D MIP thin slab images and 2D multiplanar reconstructions performed. At least one of the following CT dose optimization techniques were used: Automated exposure control; Adjustment of mA and/or kV according to patient size; Use of iterative reconstruction technique. FINDINGS: PULMONARY ARTERIES: Diminished sensitivity due to combination of patient body habitus, respiratory motion artifact and beam hardening artifact. No gross evidence of a main pulmonary artery embolus seen. Lobar and segmental pulmonary arteries are not well assessed. RIGHT VENTRICLE TO LEFT VENTRICLE RATIO: Not applicable. (Maximum short axis diameter on axial image. Applicable only when pulmonary embolism present. Abnormal greater than or equal to 0.9.) CHEST Lungs, Pleura and Airways: Throughout both lungs, there are patchy airspace and ground-glass opacities seen, more prominent on the right. No pleural effusion seen Mediastinum: No cardiomegaly or pericardial effusion. Aorta does not appear aneurysmal. Lymph Nodes: There are no enlarged lymph nodes seen. Upper Abdomen: No significant abnormality appreciated. BODY WALL Soft Tissues: No signal abnormality appreciated. Bones: No acute or destructive osseous process seen. IMPRESSION: Diminished sensitivity. No gross evidence of a main pulmonary artery embolus seen. Lobar and segmental pulmonary arteries are not well assessed. If further imaging is warranted, consider correlation with V/Q scan. Bilateral pulmonary opacities, either pneumonia or edema. Follow-up to resolution is recommended to exclude the possibility of a neoplastic process. Signed by: Korina Donovan Amit Sign Date/Time: 10/27/2018 6:46 PM VAS Lower Extremity Venous Bilateral Narrative VENOUS BILATERAL FOR DVT ONLY CLINICAL INFORMATION: Rule out Deep Vein Thrombosis COMPARISON: None PROCEDURE: Duplex and color Doppler evaluation of the veins of the lower extremities including compression, spectral analysis and Doppler response to distal compression, Valsalva, and/or other maneuvers. FINDINGS: Right Lower Extremity: The common femoral vein, femoral vein and popliteal vein are compressible with normal augmentation. Greater saphenous vein unremarkable. Left Lower Extremity: The common femoral vein, femoral vein and popliteal vein are compressible with normal augmentation. Greater saphenous vein unremarkable. IMPRESSION: Bilateral lower extremity ultrasound negative for DVT. Signed by: Korina Ahn Shawn Sign Date/Time: 10/28/2018 1:20 PM XR Chest AP Portable Narrative CHEST PORTABLE ONE VIEW CLINICAL INFORMATION: Bilateral infiltrates attributed to aspiration vs pulmonary edema. pls note progression/improvement. COMPARISON: CT ANGIOGRAM PULMONARY W CONTRAST (10/27/2018); XR CHEST AP PORTABLE (10/27/2018); FINDINGS: The heart is normal in size. No mediastinal shift or widening is noted. No pneumothorax is present. Bilateral patchy opacities are seen throughout the lung bilaterally. There is blunting of the costophrenic angle. IMPRESSION: Bilateral opacities throughout the lung which may reflect residual airspace consolidation from pneumonia or pulmonary edema. These are stable. Signed by: Korina Alcaraz Richard Sign Date/Time: 10/30/2018 4:54 PM PROBLEM LIST Principal Problem: Mechanical instability of hip prosthesis Active Problems: Artificial joint pain Shortness of breath Acute respiratory failure with hypoxia Morbid obesity Vitamin D deficiency ASSESSMENT & PLAN Acute hypoxic respiratory failure - secondary to possible fluid overload vs aspiration type pneumonia - continue zosyn for now. Today is day 5 of antibiotics. Respiratory culture is mixed - continue IV lasix. Her fluid balance is improving. Monitor I and O, daily weight - pulmonology is consulted. Continue bipap for now. She was started on IV steroids. Has had some improvement. - echo demonstrates normal ejection fraction HTN - controlled. Monitor S/p left posterior hip arthroplasty revision - per orthopedic surgery - pain control - limit use of narcotics if possible - continue with pt/ot. Needs to mobilize if possible Morbid obesity - likely has underlying ALDAIR - continue with bipap for now. Needs outpatient sleep study Depression - continue celexa Nicotine use - advised to quit GI/DVT prophylaxis PT/OT Kush Ge MD 11/01/2018 7:36 Greater than 35 minutes spent today overall in coordination of care, seeing and managing pa tient, review of data, coordination with staff, coordination with involved consultants, and including any scheduled multidisciplinary rounding focused on the patient with 50 percent or more spent seeing and managing patient and counseling/coordination. Dictation software, Workspace, used which may contain error for similar sounding words even af ter review. Personal communication requested for any clarification. Portions of this chart may have been copied from previous notes for continuity of care purp ose Juan Gonzalse RN - 11/01/2018 0652 PDTPt remains mainly BiPAP depedent at 50% FiO2 throughout the night. Lung sounds coarse, with crackles and exp. Wheezes, unchanged from prior shift. Pt is beginning t o tolerate Hi-Flow O2 for longer periods of time, up to 20 minutes for meals and 1 30 minute period overnight with saturations above 90%. Otherwise, VSS, tmax of 99.3 and UOP QS from [place]. End of shift chart check complete. Gianna June RN - 10/31/2018 1806 PDTRemains on Bipap Fio2 50% and SpO2 >93%. Unable to titrate further at this time. Education and reminders given for HOB elevated for maximal lung expansion. Becomes dyspneic with transitioning to high flow for meal times. BP remains WNL and HR NSR. Slight raise in temp to 99.5, WCTM. K replaced x1. Denies need for p ain medications. End of shift chart review complete. Gianna Wasserman RN Emilio Dawn PA-C - 10/31/2018 1501 PDT Patient notes that pain is well controlled with current pain medications and continues to w ork with physical therapy, she is touch down weight bearing. She continues to be on bi-pap . No new ortho concerns 1. Pain in prosthetic joint, initial encounter ([facility]) 2. Mechanical complication of prosthetic knee implant, initial encounter ([facility]) 3. Mechanical instability of hip prosthesis ([facility]) 4. Shortness of breath 5. Acute respiratory failure with hypoxia ([facility]) Past Medical History: Diagnosis Date Anxiety Anxious depression Arthralgia Arthritis Asthma not using inhalers DDD (degenerative disc disease), lumbar Deliberate self-cutting history of Depression Heartburn Hemorrhage of gastrointestinal tract 2015 upper and lower due ulcers Morbid obesity with BMI of 50.0-59.9, adult ([facility]) Pain in prosthetic joint ([facility]) with instability Panic attacks states can be severe prior to surgeries PTSD (post-traumatic stress disorder) Current Facility-Administered Medications Medication Dose Route Frequency Provider Last Rate Last Dose acetaminophen (TYLENOL) tablet 650 mg 650 mg Oral Q6H PRN Kush Ge MD 650 mg at 10/31/18 1438 albuterol 90 mcg/puff inhaler 2 puff 2 puff Inhalation RT Q4H PRN Fab Vickers D 2 puff at 10/27/18 0528 albuterol-ipratropium 2.5-0.5 mg/3 mL nebulizer solution 3 mL 3 mL Nebulization Q4H Wh ile awake Yuki Pruett MD 3 mL at 10/31/18 1104 bisacodyl (DULCOLAX) suppository 10 mg 10 mg Rectal Daily PRN Miah Monique MD calcium carbonate (TUMS) chewable tablet 1,000 mg 1,000 mg Oral Q2H PRN Miah rod MD 1,000 mg at 10/27/18 0924 calcium citrate-vitamin D (CITRACAL+D) 315 mg-200 units per tablet 1 tablet 1 tablet O ral BID Yuki Pruett MD 1 tablet at 10/31/18 0839 celecoxib (CELEBREX) capsule 200 mg 200 mg Oral BID Miah Monique MD 200 mg at 10/31/18 0840 citalopram (celeXA) tablet 40 mg 40 mg Oral Daily Miah Monique MD 40 mg at 0840 diphenhydrAMINE (BENADRYL) injection 12.5 mg 12.5 mg Intravenous Q4H PRN Miah marrufo MD Or diphenhydrAMINE (BENADRYL) capsule 25 mg 25 mg Oral Q4H PRN Miah Monique MD Or diphenhydrAMINE (BENADRYL) 12.5 mg/5 mL liquid 25 mg 25 mg Oral Q4H PRN Miah rod MD docusate sodium (COLACE) capsule 100 mg 100 mg Oral BID PRN Miah Monique MD 10 0 mg at 10/31/18 0845 enoxaparin (LOVENOX) 40 mg/0.4 mL injection 40 mg 40 mg Subcutaneous Daily Yuki Pruett MD 40 mg at 10/31/18 0845 furosemide (LASIX) injection 40 mg 40 mg Intravenous BID Yuki Pruett MD 40 mg at 10/31/18 0840 HYDROcodone-acetaminophen (NORCO) 5-325 mg per tablet 1 tablet 1 tablet Oral Q6H PRN Deepthi Ge MD HYDROmorphone (DILAUDID) injection 0.25-1 mg 0.25-1 mg Intravenous Q2H PRN Miah sweeney MD 1 mg at 10/25/18 0230 hydrOXYzine hydrochloride (ATARAX) tablet 10 mg 10 mg Oral TID PRN Miah Monique MD 10 mg at 10/30/18 2339 lactulose liquid 30 mL 30 mL Oral TID PRN Yuki Pruett MD 30 mL at 10/30 0921 magnesium hydroxide (MILK OF MAGNESIA) 400 mg/5 mL suspension 30 mL 30 mL Oral Nightly PRN Miah Monique MD menthol (HALLS) lozenge 1 lozenge 1 lozenge Buccal Q2H PRN Miah Monique MD metoclopramide (REGLAN) 5 mg/mL injection 10 mg 10 mg Intravenous Q4H PRN Miah donovan MD metoclopramide (REGLAN) tablet 10 mg 10 mg Oral Q4H PRN Miah Monique MD morphine (MS CONTIN) ER tablet 15 mg 15 mg Oral 2 times per day Miah Monique MD 15 mg at 10/31/18 0840 nicotine (NICODERM) 7 mg/24 hr 1 patch 1 patch Transdermal Daily Miah Monique MD 1 patch at 10/28/18 0805 ondansetron (ZOFRAN ODT) disintegrating tablet 4 mg 4 mg Oral Q6H PRN Miah arboleda MD ondansetron (ZOFRAN) injection 4 mg 4 mg Intravenous Q6H PRN Miah Monique MD pantoprazole (PROTONIX) DR tablet 40 mg 40 mg Oral BID AC Harpal Fine MD 40 mg at 10/31/18 0839 pharmacy consult - other medications/reasons Other Pharmacy Consult Yuki espinal MD phenol (CHLORASEPTIC) spray 1-2 spray 1-2 spray Mouth/Throat Q3H PRN Miah Monique MD 2 spray at 10/27/18 0628 piperacillin-tazobactam (ZOSYN) IVPB 3.375 g 3.375 g Intravenous Q8H Yuki espinal MD 12.5 mL/hr at 10/31/18 1438 3.375 g at 10/31/18 1438 polyethylene glycol (MIRALAX) powder 17 g 17 g Oral Daily PRN Miah Monique MD 17 g at 10/31/18 0845 potassium chloride (KLOR-CON) ER tablet 20-40 mEq 20-40 mEq Oral Daily PRN Kush khoury MD 20 mEq at 10/31/18 0839 And potassium chloride (KLOR-CON) packet 20-40 mEq 20-40 mEq Per G Tube Daily PRN Kush duron MD And potassium chloride 20 mEq in sodium chloride 0.9% 250 mL IVPB 20 mEq Intravenous Daily PRN Kush Ge MD And potassium chloride 40 mEq in sodium chloride 0.9% 500 mL IVPB 40 mEq Intravenous Daily PRN Kush Ge MD prochlorperazine tablet 10 mg 10 mg Oral Q6H PRN Miah Monique MD senna (SENOKOT) tablet 8.6 mg 8.6 mg Oral Nightly Yuki Pruett MD 8.6 mg at 10/30/182044 traMADol (ULTRAM) tablet 50 mg 50 mg Oral Q6H PRN Yuki Pruett MD 50 mg at 10/30/18 0313 Allergies Allergen Reactions Bupropion Hives Principal Problem: Mechanical instability of hip prosthesis Active Problems: Artificial joint pain Shortness of breath Acute respiratory failure with hypoxia Morbid obesity Vitamin D deficiency Blood pressure 164/70, pulse 89, temperature 36.5 C (97.7 F), temperature source Axilla ry, resp. rate 30, height 1.524 m (5'), weight 123.2 kg (271 lb 9.7 oz), last menstrual peter od 10/24/2018, SpO2 92 %, not currently . Physical Exam Constitutional: She is oriented to [...] affect. Her behavior is normal. Thought content norm al. Left Hip Exam Other Erythema: absent Sensation: normal Pulse: present Comments: Aquacel dressing clean dry and intact Ankle strength 5/5 48 y/o female s/p left total hip arthroplasty revision pain medications prn Touch down weight bearing dvt prophylaxis continue hospital and pulm care No change in ortho plan Emilio Moreno 10/31/2018 Sara Delvalle RN - 0823 PDTChart reviewed. 8:2 3 Kush Miller MD - 10/31/2018 0807 PDTFormatting of this note might be different fro m the original. [facility] Service: Hospitalist Progress Note Pt: Sylvie Ramsey AGE/SEX: 48 y.o. female ROOM: 9119/9119-01 : 1970 PCP: No Physician on file ADMIT DATE: 10/24/2018 TODAY'S DATE: 10/31/2018 Hospital Day/Hospital Course: LOS: 7 days 48f with pmh of anxiety, depression, PTSD, morbid obesity, asthma who presented for left po sterior total hip arthroplasty revision on 10/24/18. She had difficulty with ambulation and d eveloped shortness of breath. Hospitalist was consulted. CT of the chest has demonstrated no obvious pulmonary embolism, but there are opacities consistent with pneumonia vs edema. US lower extremity negative for DVT. She has been on lasix and zosyn. Pulmonology is consulted. Patient has been difficult to we an off bipap. SUBJECTIVE: Patient seen and examined. She remains on bipap. Per RT, when she is taken off within secon ds she is desaturating. Overall the patient states she feels a little better today. She stat es she was not on MS contin at home. She is very reuluctant to decrease her pain medication at this time. No chest pain. No headache. No Abdominal pain, N/V or fever. No dizziness or lightheadedness. Her fluid balance is improving Scheduled Medications: albuterol-ipratropium 3 mL Nebulization Q4H While awake calcium citrate-vitamin D 1 tablet Oral BID celecoxib 200 mg Oral BID citalopram 40 mg Oral Daily enoxaparin 40 mg Subcutaneous Daily furosemide 40 mg Intravenous BID morphine 15 mg Oral 2 times per day nicotine 1 patch Transdermal Daily pantoprazole 40 mg Oral BID AC pharmacy consult - other medications/reasons Other Pharmacy Consult piperacillin-tazobactam 3.375 g Intravenous Q8H senna 8.6 mg Oral Nightly Continuous Infusions PRN Medications acetaminophen, albuterol, bisacodyl, calcium carbonate, diphenhydrAMINE OR diphenhydrAM INE OR diphenhydrAMINE, docusate sodium, HYDROcodone-acetaminophen, HYDROmorphone, hydrO XYzine hydrochloride, lactulose, magnesium hydroxide, menthol throat lozenges, metoclopramid e, metoclopramide, ondansetron, ondansetron, phenol, polyethylene glycol, prochlorperazine, traMADol Allergy: Allergies Allergen Reactions Bupropion Hives OBJECTIVE: Vitals: Patient Vitals for the past 24 hrs: BP Temp Temp src Pulse Resp SpO2 Weight 10/31/18 0747 85 98 % 10/31/18 0314 145/81 37.3 C (99.1 F) Axillary 87 21 95 % 123.2 kg (271 lb 9.7 oz) 10/31/18 0252 86 24 94 % 10/30/18 2341 151/79 36.6 C (97.8 F) Axillary 94 (!) 31 93 % 10/30/18 1939 177/88 37.4 C (99.3 F) Axillary 99 (!) 36 91 % 10/30/18 1854 102 (!) 38 93 % 10/30/18 1734 95 % 10/30/18 1726 94 % 10/30/18 1700 96 28 92 % 10/30/18 1640 91 29 90 % 10/30/18 1601 127/61 37 C (98.6 F) Axillary 94 27 94 % 10/30/18 1454 87 26 93 % 10/30/18 1205 147/82 36.6 C (97.9 F) Axillary 90 (!) 34 96 % 10/30/18 1041 91 25 93 % 10/30/18 0938 93 (!) 33 97 % 10/30/18 0920 97 (!) 31 98 % 10/30/18 0910 87 28 I&O Detailed Table: Intake/Output Summary (Last 24 hours) at 10/31/2018 0807 Last data filed at 10/31/2018 0600 Gross per 24 hour Intake 1771.1 ml Output 2550 ml Net -778.9 ml Patient Vitals for the past 96 hrs: Weight 10/31/18 0314 123.2 kg (271 lb 9.7 oz) 10/29/18 0326 126.4 kg (278 lb 10.6 oz) 10/27/18 0917 119 kg (262 lb 5.6 oz) Physical Examination: Constitutional: Awake, interactive HEENT: Neck supple, no JVD, non icteric sclera. Cardiovascular: Normal rate, regular rhythm.. Exam reveals no appreciated gallop or fricti on rub. No murmur heard. Pulmonary/Chest: coarse sounds. Bipap. Abdominal: Soft. Bowel sounds are normal. There is no tenderness. There is no rebound and no guarding. Extremeties/Musculoskeletal: Normal range of motion for patient. exhibits no tenderness. e xhibits no edema. Neurological: Alert and oriented to person, place, and time. No cranial nerve deficit hermes reciated. Exhibits normal muscle tone. Skin: Skin is warm and dry. No rash noted. No erythema. No pallor. Psychiatric: Has a normal mood and affect given situation. Behavior is normal. LABS: Recent Labs Lab 10/31/1841310/30/1841710/29/1843810/28/18 0835 WBC 13.03* 13.87* 15.10* 15.60* HGB 10.8* 10.9* 10.8* 11.1* HCT 32.1* 32.6* 31.3* 33.1* PLT 356 385 341 296 MONOPCT -- -- -- 2.27 Recent Labs Lab 10/31/1841310/30/1841710/29/18438 NA 141 141 138 K 3.6 3.9 4.2 CL 101 103 104 CO2 35* 32 27 BUN 20 19 17 CALCIUM 8.1* 7.9* 7.9* Phosphorus: Lab Results Component Value Date PHOS 3.4 10/31/2018 No results for input(s): LABALBU in the last 168 hours. Recent Labs Lab 10/31/1841310/30/1841710/29/18438 MG 2.3 2.3 2.1 No results for input(s): AMYLASE in the last 168 hours. No results for input(s): PHART, PO2ART, HBZ9BMO, F1OVSEGE, BEART in the last 168 hours. No results for input(s): APTT, INR, PTT in the last 168 hours. No results for input(s): TSH, T3FREE in the last 168 hours. Invalid input(s): FREET4 No results for input(s): TROPONINT in the last 168 hours. Invalid input(s): CKTOTAL, TROPONINI, CKMBINDEX Microbiology Results (72 hrs) Procedure Component Value Units Date/Time Culture, Respiratory, Lower, Smear [[id number]] Collected: 10/29/181728 Order Status: Completed Lab Status: Final result Updated: 10/29/182024 Specimen: Body Fluid from Sputum, Expectorated Gram Stain Result GREATER THAN 10 SEC/LPF Gram Stain Result GREATER THAN 10 WBCS/LPF Gram Stain Result -- 1+ GRAM POSITIVE COCCI Gram Stain Result -- 1+ GRAM NEGATIVE RODS Gram Stain Result -- 1+ GRAM POSITIVE RODS Gram Stain Result -- 1+ GRAM NEGATIVE COCCI Gram Stain Result -- 1+ YEAST RESULT SMEAR CONTAINS GREATER THAN 10 SEC/LPF SUGGESTIVE OF POOR QUALITY SPECIMEN. SPECI MEN WILL NOT BE CULTURED OR WILL BE CULTURED BY SPECIAL REQUEST ONLY. PLEASE RECOLLECT IF C LINICALLY INDICATED. SPECIMEN WILL BE HELD 48 HOURS. RESULT Testing performed at [facility], [address] [place] [address] Comment: Testing performed at [facility], [address] [place] [address] RADIOLOGY: Recent Results (from the past 360 hour(s)) XR Pelvis 1 or 2 Vw Narrative PELVIS ONE VIEW CLINICAL INFORMATION: Status post revision left hip total hip arthroplasty. COMPARISON: XR ARTHROCENTESIS HIP LEFT (10/18/2018); CT PELVIS WO CONTRAST (09/19/2018); FINDINGS: Bilateral total hip prostheses. Status post revision left total hip arthroplasty. Femoral head prosthesis is well seated within the acetabular component. No displaced fracture fragments. IMPRESSION: Revised left hip prosthesis is well seated within the acetabular component. No unexpected postoperative findings. Dictated by: Korina Gabriel George Signed by: Korina Machado Michael Sign Date/Time: 10/24/2018 8:54 PM The radiologist has reviewed the images and edited/approved the report. For interventional procedures, the signing radiologist was present for the choi portions of the exam. XR Pelvis Complete 3 + Vw Narrative PELVIS COMPLETE MINIMUM THREE VIEWS CLINICAL INFORMATION: Post operative left hip. COMPARISON: XR PELVIS 1 OR 2 VW (10/24/2018); XR HIP 2 VIEW LEFT (09/11/2018); FINDINGS: Bilateral total hip prostheses, with 2 right and 3 left hip screws anchoring the bilateral acetabular prostheses. Moderate length left femoral prosthesis. No evidence of periprosthetic loosening. There apparently has been interval left hip surgery. No periprosthetic fracture or evidence of loosening. IMPRESSION: 1. Bilateral total hip prostheses appear unremarkable. Signed by: Korina Ahn Shawn Sign Date/Time: 10/27/2018 11:57 AM XR Chest AP Portable Narrative CHEST PORTABLE ONE VIEW CLINICAL INFORMATION: Shortness of breath COMPARISON: None FINDINGS: Bilateral perihilar congestion and diffuse interstitial opacities seen. There appears to be right paratracheal and right hilar prominence. Cardiomediastinal silhouette otherwise appears unremarkable. Osseous structures appear unremarkable. IMPRESSION: Bilateral perihilar congestion, diffuse interstitial opacities. Findings likely represent pulmonary edema, although pneumonia is also a consideration. Prominence of the right paratracheal and right hilar tissues, nonspecific. Follow-up to radiographic resolution in 6 weeks after appropriate therapy is recommended to exclude the possibility of a neoplastic process. Signed by: Korina Donovan Amit Sign Date/Time: 10/27/2018 5:[address] Angiogram Pulmonary w Contrast Narrative CT ANGIOGRAM PULMONARY CLINICAL INFORMATION: Shortness of breath, Tachycardia with chest discomfort. COMPARISON: XR CHEST AP PORTABLE (10/27/2018); PROCEDURE: Thin-section images of the entire chest after the administration of 100 ml Omnipaque 350 intravenous contrast. 3D MIP thin slab images and 2D multiplanar reconstructions performed. At least one of the following CT dose optimization techniques were used: Automated exposure control; Adjustment of mA and/or kV according to patient size; Use of iterative reconstruction technique. FINDINGS: PULMONARY ARTERIES: Diminished sensitivity due to combination of patient body habitus, respiratory motion artifact and beam hardening artifact. No gross evidence of a main pulmonary artery embolus seen. Lobar and segmental pulmonary arteries are not well assessed. RIGHT VENTRICLE TO LEFT VENTRICLE RATIO: Not applicable. (Maximum short axis diameter on axial image. Applicable only when pulmonary embolism present. Abnormal greater than or equal to 0.9.) CHEST Lungs, Pleura and Airways: Throughout both lungs, there are patchy airspace and ground-glass opacities seen, more prominent on the right. No pleural effusion seen Mediastinum: No cardiomegaly or pericardial effusion. Aorta does not appear aneurysmal. Lymph Nodes: There are no enlarged lymph nodes seen. Upper Abdomen: No significant abnormality appreciated. BODY WALL Soft Tissues: No signal abnormality appreciated. Bones: No acute or destructive osseous process seen. IMPRESSION: Diminished sensitivity. No gross evidence of a main pulmonary artery embolus seen. Lobar and segmental pulmonary arteries are not well assessed. If further imaging is warranted, consider correlation with V/Q scan. Bilateral pulmonary opacities, either pneumonia or edema. Follow-up to resolution is recommended to exclude the possibility of a neoplastic process. Signed by: Korina Donovan Amit Sign Date/Time: 10/27/2018 6:46 PM VAS Lower Extremity Venous Bilateral Narrative VENOUS BILATERAL FOR DVT ONLY CLINICAL INFORMATION: Rule out Deep Vein Thrombosis COMPARISON: None PROCEDURE: Duplex and color Doppler evaluation of the veins of the lower extremities including compression, spectral analysis and Doppler response to distal compression, Valsalva, and/or other maneuvers. FINDINGS: Right Lower Extremity: The common femoral vein, femoral vein and popliteal vein are compressible with normal augmentation. Greater saphenous vein unremarkable. Left Lower Extremity: The common femoral vein, femoral vein and popliteal vein are compressible with normal augmentation. Greater saphenous vein unremarkable. IMPRESSION: Bilateral lower extremity ultrasound negative for DVT. Signed by: Korina Ahn Shawn Sign Date/Time: 10/28/2018 1:20 PM XR Chest AP Portable Narrative CHEST PORTABLE ONE VIEW CLINICAL INFORMATION: Bilateral infiltrates attributed to aspiration vs pulmonary edema. pls note progression/improvement. COMPARISON: CT ANGIOGRAM PULMONARY W CONTRAST (10/27/2018); XR CHEST AP PORTABLE (10/27/2018); FINDINGS: The heart is normal in size. No mediastinal shift or widening is noted. No pneumothorax is present. Bilateral patchy opacities are seen throughout the lung bilaterally. There is blunting of the costophrenic angle. IMPRESSION: Bilateral opacities throughout the lung which may reflect residual airspace consolidation from pneumonia or pulmonary edema. These are stable. Signed by: Korina Alcaraz Richard Sign Date/Time: 10/30/2018 4:54 PM PROBLEM LIST Principal Problem: Mechanical instability of hip prosthesis Active Problems: Artificial joint pain Shortness of breath Acute respiratory failure with hypoxia Morbid obesity Vitamin D deficiency ASSESSMENT & PLAN Acute hypoxic respiratory failure - secondary to possible fluid overload vs aspiration type pneumonia - continue zosyn for now. Today is day 4 of antibiotics. Respiratory culture is mixed - continue IV lasix. Her fluid balance is improving. Monitor I and O, daily weight - pulmonology is consulted. Continue bipap for now - echo demonstrates normal ejection fraction - Discussed reducing/stopping MS contin as she was not on this prior to admission. Patient very reluctant to do so at this time. If no improvement, will have to consider. HTN - controlled. Monitor S/p left posterior hip arthroplasty revision - per orthopedic surgery - pain control - limit use of narcotics if possible Morbid obesity - likely has underlying ALDAIR - continue with bipap for now. Needs outpatient sleep study Depression - continue celexa Nicotine use - advised to quit GI/DVT prophylaxis PT/OT Kush Ge MD 10/31/2018 8:07 Greater than 35 minutes spent today overall in coordination of care, seeing and managing pa tient, review of data, coordination with staff, coordination with involved consultants, and including any scheduled multidisciplinary rounding focused on the patient with 50 percent or more spent seeing and managing patient and counseling/coordination. Dictation software, Workspace, used which may contain error for similar sounding words even af ter review. Personal communication requested for any clarification. Portions of this chart may have been copied from previous notes for continuity of care purp ose uan Kramer RN - 10/31/2018 0647 PDTUnable to wean pt off BiPAP overnight, pt remains on 55% FiO2 with O2 sat s 92-94%. Pt desatting down to low 80's in seconds when off BiPAP and continues to have lab ored breathing, SOB and anxiety when on Hi-Flow O2 for meals and medications. Pt unwilling t o try Hi-Flow O2 this morning wishing to sleep. Pt's pain well controlled throughout the sh ift, but pt unable still unable to sleep. L hip dressing is C/D/I and soft. End of shift chart check complete. Gianna June RN - 10/30/2018 1734 PDTAttempted to titrate down on Bipap fio2 to 50%. SpO2 89%. Will continue to attempt titration. On high flow nasal cannula for eating. Needing frequent reminders to sit HOB elevated to achieve maximal lung expansion. Pt took o ff mask without notifying staff and desat into 70s, replaced mask and SpO2 recovered. End of shift chart review complete. Gianna Wasserman RN Emilio Dawn PA-C - 10/30/2018 1304 PDT Patient summary: Patient notes that pain is well controlled on left hip she has been workin g with physical therapy And continues to be touchdown weightbearing. Continues to be manag ed by hospitalist team and is on BiPAP at this time Events overnight: No orthopedic events overnight 1. Pain in prosthetic joint, initial encounter ([facility]) 2. Mechanical complication of prosthetic knee implant, initial encounter ([facility]) 3. Mechanical instability of hip prosthesis ([facility]) 4. Shortness of breath 5. Acute respiratory failure with hypoxia ([facility]) Past Medical History: Diagnosis Date Anxiety Anxious depression Arthralgia Arthritis Asthma not using inhalers DDD (degenerative disc disease), lumbar Deliberate self-cutting history of Depression Heartburn Hemorrhage of gastrointestinal tract 2015 upper and lower due ulcers Morbid obesity with BMI of 50.0-59.9, adult ([facility]) Pain in prosthetic joint (HCC) with instability Panic attacks states can be severe prior to surgeries PTSD (post-traumatic stress disorder) Current Facility-Administered Medications Medication Dose Route Frequency Provider Last Rate Last Dose acetaminophen (TYLENOL) tablet 1,000 mg 1,000 mg Oral 3 times per day Miah arboleda MD 1,000 mg at 10/30/18 0616 albuterol 90 mcg/puff inhaler 2 puff 2 puff Inhalation RT Q4H PRN Fab Vickers D 2 puff at 10/27/18 0528 albuterol-ipratropium 2.5-0.5 mg/3 mL nebulizer solution 3 mL 3 mL Nebulization Q4H Wh ile awake Yuki Pruett MD 3 mL at 10/30/18 1039 bisacodyl (DULCOLAX) suppository 10 mg 10 mg Rectal Daily PRN Miah Monique MD calcium carbonate (TUMS) chewable tablet 1,000 mg 1,000 mg Oral Q2H PRN Miah rod MD 1,000 mg at 10/27/18 0924 calcium citrate-vitamin D (CITRACAL+D) 315 mg-200 units per tablet 1 tablet 1 tablet O ral BID Yuki Pruett MD 1 tablet at 10/30/18 0921 celecoxib (CELEBREX) capsule 200 mg 200 mg Oral BID Miah Monique MD 200 mg at 10/30/18 0918 citalopram (celeXA) tablet 40 mg 40 mg Oral Daily Miah Monique MD 40 mg at 0918 diphenhydrAMINE (BENADRYL) injection 12.5 mg 12.5 mg Intravenous Q4H PRN Miah marrufo MD Or diphenhydrAMINE (BENADRYL) capsule 25 mg 25 mg Oral Q4H PRN Miah Monique MD Or diphenhydrAMINE (BENADRYL) 12.5 mg/5 mL liquid 25 mg 25 mg Oral Q4H PRN Miah rod MD docusate sodium (COLACE) capsule 100 mg 100 mg Oral BID PRN Miah Monique MD 10 0 mg at 10/30/18 0918 enoxaparin (LOVENOX) 40 mg/0.4 mL injection 40 mg 40 mg Subcutaneous Daily Yuki Pruett MD 40 mg at 10/30/18 0922 furosemide (LASIX) injection 40 mg 40 mg Intravenous BID Yuki Pruett MD 40 mg at 10/30/18 0803 HYDROmorphone (DILAUDID) injection 0.25-1 mg 0.25-1 mg Intravenous Q2H PRN Miah sweeney MD 1 mg at 10/25/18 0230 hydrOXYzine hydrochloride (ATARAX) tablet 10 mg 10 mg Oral TID PRN Miah Monique MD 10 mg at 10/28/18 1646 lactulose liquid 30 mL 30 mL Oral TID PRN Yuki Pruett MD 30 mL at 10/30 0921 magnesium hydroxide (MILK OF MAGNESIA) 400 mg/5 mL suspension 30 mL 30 mL Oral Nightly PRN Miah Monique MD menthol (HALLS) lozenge 1 lozenge 1 lozenge Buccal Q2H PRN Miah Monique MD metoclopramide (REGLAN) 5 mg/mL injection 10 mg 10 mg Intravenous Q4H PRN Miah donovan MD metoclopramide (REGLAN) tablet 10 mg 10 mg Oral Q4H PRN Miah Monique MD morphine (MS CONTIN) ER tablet 15 mg 15 mg Oral 2 times per day Miah Monique MD 15 mg at 10/30/18 0918 nicotine (NICODERM) 7 mg/24 hr 1 patch 1 patch Transdermal Daily Miah Monique MD 1 patch at 10/28/18 0805 ondansetron (ZOFRAN ODT) disintegrating tablet 4 mg 4 mg Oral Q6H PRN Miah arboleda MD ondansetron (ZOFRAN) injection 4 mg 4 mg Intravenous Q6H PRN Miah Monique MD oxyCODONE (ROXICODONE) tablet 5-20 mg 5-20 mg Oral Q3H PRN Miah Monique MD 5 m g at 10/29/18 0132 pantoprazole (PROTONIX) DR tablet 40 mg 40 mg Oral BID AC Harpal Fine MD 40 mg at 10/30/18 0616 pharmacy consult - other medications/reasons Other Pharmacy Consult Yuki espinal MD phenol (CHLORASEPTIC) spray 1-2 spray 1-2 spray Mouth/Throat Q3H PRN Miah Monique MD 2 spray at 10/27/18 0628 piperacillin-tazobactam (ZOSYN) IVPB 3.375 g 3.375 g Intravenous Q8H Yuki espinal MD 12.5 mL/hr at 10/30/18 0616 3.375 g at 10/30/18 0616 polyethylene glycol (MIRALAX) powder 17 g 17 g Oral Daily PRN Miah Monique MD 17 g at 10/30/18 0919 prochlorperazine tablet 10 mg 10 mg Oral Q6H PRN Miah Monique MD senna (SENOKOT) tablet 8.6 mg 8.6 mg Oral Nightly Yuki Pruett MD traMADol (ULTRAM) tablet 50 mg 50 mg Oral Q6H PRN Yuki Pruett MD 50 mg at 10/30/18 0313 Allergies Allergen Reactions Bupropion Hives Principal Problem: Mechanical instability of hip prosthesis Active Problems: Artificial joint pain Shortness of breath Acute respiratory failure with hypoxia Morbid obesity Vitamin D deficiency Blood pressure 147/82, pulse 90, temperature 36.6 C (97.9 F), temperature source Axilla ry, resp. rate (!) 34, height 1.524 m (5'), weight 126.4 kg (278 lb 10.6 oz), last menstrual period 10/24/2018, SpO2 96 %, not currently . Objective: Vital signs: (most recent): Blood pressure 147/82, pulse 90, temperature 36.6 C (97.9 F ), temperature source Axillary, resp. rate (!) 34, height 1.524 m (5'), weight 126.4 kg (278 lb 10.6 oz), last menstrual period 10/24/2018, SpO2 96 %, not currently . Neurological: Patient is alert. Pupils: Pupils are equal, round, and reactive to light. Skin: Warm and dry. Physical Exam Constitutional: She is oriented to person, place, and time. HENT: Head: Normocephalic and atraumatic. Eyes: Pupils are equal, round, and reactive to light. EOM are normal. Pulmonary/Chest: Bipap present Labored breathing noted Neurological: She is alert and oriented to person, place, and time. Skin: Skin is warm and dry. Psychiatric: She has a normal mood and affect. Her behavior is normal. Left Hip Exam Other Erythema: absent Pulse: present Comments: Lorena dressing intact and functioning no erythema, drainage or discharge Ankle strength and rom present dp pulse present 48 y/o female s/p left total hip arthroplasty revision Continue medical care per pulm and hospitalist Touch down weight bearing Pain medications prn dvt prophylaxis Dressing change prn Plan for snf vs rehab once tx by medical team Code status: Full code Emilio Moreno 10/30/2018 Yuki Courtney MD - 10/30/[address] [facility] Service: Hospitalist Progress Note Hospital Day: LOS: 6 days SUBJECTIVE Patient Summary: 48-year-old female with history of anxiety, depression, PTSD, morbid obesity and asthma admitted with left posterior total hip arthroplasty revision on October 24 she remained hospitalized for pain control and difficulty with ambulation. Hospitalist con sulted for shortness of breath. CT scan of the chest showed no PE. Ultrasound showed no DVT. CT showed bilateral pulmona ry opacities pneumonia versus edema. Pulmonary consulted. Patient has been started on BiPA P . Patient has been started on Zosyn for possible aspiration pneumonia. She has been star walter on Lasix. Echocardiogram shows normal EF. Events Overnight: Patient still complains of shortness of breath. She remains constipated. She desats been off BiPAP. She has not had a bowel movement yet. Her pain is controlled. Scheduled Medications acetaminophen 1,000 mg Oral 3 times per day albuterol-ipratropium 3 mL Nebulization Q4H While awake calcium citrate-vitamin D 1 tablet Oral BID celecoxib 200 mg Oral BID citalopram 40 mg Oral Daily enoxaparin 40 mg Subcutaneous Daily furosemide 40 mg Intravenous BID morphine 15 mg Oral 2 times per day nicotine 1 patch Transdermal Daily pantoprazole 40 mg Oral BID AC pharmacy consult - other medications/reasons Other Pharmacy Consult piperacillin-tazobactam 3.375 g Intravenous Q8H Continuous Infusions PRN Medications albuterol, bisacodyl, calcium carbonate, diphenhydrAMINE OR diphenhydrAMINE OR diph enhydrAMINE, docusate sodium, HYDROmorphone, hydrOXYzine hydrochloride, lactulose, magnesium hydroxide, menthol throat lozenges, metoclopramide, metoclopramide, ondansetron, ondansetro n, oxyCODONE, phenol, polyethylene glycol, prochlorperazine, senna, traMADol OBJECTIVE Vital Signs: BP 143/78 | Pulse 92 | Temp 37.2 C (99 F) (Axillary) | Resp 30 | Ht 1.524 m (5') | Wt 126.4 kg (278 lb 10.6 oz) | LMP 10/24/2018 (Exact Date) | SpO2 94% | ? N o | BMI 54.42 kg/m Patient Vitals for the past 24 hrs: BP Temp Temp src Pulse Resp SpO2 Weight 10/30/18 0750 143/78 37.2 C (99 F) Axillary 92 30 94 % 10/30/18 0725 94 24 95 % 10/30/18 0307 107/52 37.1 C (98.7 F) Axillary 93 25 95 % 10/30/18 0002 101/52 37.3 C (99.1 F) Axillary 96 23 94 % 10/29/18 2021 107/56 08 1907 102/55 36.3 C (97.4 F) Axillary 94 26 94 % 10/29/18 1830 97 26 97 % 10/29/18 1800 103/59 96 25 97 % 10/29/18 1730 100/58 96 28 95 % 10/29/18 1700 97/55 97 30 93 % 10/29/18 1630 111/56 97 25 93 % 10/29/18 1600 120/62 37.1 C (98.8 F) Axillary 99 25 92 % 10/29/18 1530 115/66 96 25 91 % 10/29/18 1500 107/55 98 26 91 % 10/29/18 1430 111/57 100 26 92 % 10/29/18 1400 129/61 98 (!) 47 93 % 10/29/18 1330 97 28 94 % 10/29/18 1305 98 26 94 % 10/29/18 1300 101 (!) 40 90 % 10/29/18 1150 107/57 92 21 97 % 10/29/18 1120 98/55 93 22 96 % 10/29/18 1040 92 22 96 % 10/29/18 1020 110/57 36.9 C (98.4 F) Axillary 96 26 90 % Intake/Output Summary (Last 24 hours) at 10/30/2018 0802 Last data filed at 10/30/2018 0313 Gross per 24 hour Intake 342 ml Output 1750 ml Net -1408 ml Physical Exam: Constitutional: Alert and oriented to person, place, and time. Appears well-developed and w ell-nourished. Sitting up in bed on BiPAP. HEENT: Neck supple, no JVD, non icteric sclera. Cardiovascular: Normal rate, regular rhythm, normal heart sounds with S1 and S2, distant heart sounds. Pulmonary/Chest: Effort normal and breath sounds are decreased bilaterally. Bilateral few wheezes present. Abdominal: Soft. Bowel sounds are normal. exhibits no distension and no mass. There is no t enderness. There is no rebound and no guarding. Extremeties/Musculoskeletal: exhibits no edema. Surgical dressing present over the left hip. Neurological: Alert and oriented to person, place, and time. Skin: Skin is warm and dry. Psychiatric: Has a normal mood and affect. DATA Recent Labs 10/30/1841710/29/18 0439 WBC 13.87* 15.10* HGB 10.9* 10.8* HCT 32.6* 31.3* PLT 385 341 MCV 90.7 90.6 Recent Labs Lab 10/30/1841710/29/18 0439 10/28/18 0835 NA 141 138 -- 136 K 3.9 4.2 -- 4.5 CL 103 104 -- 104 CO2 32 27 -- 27 ANIONGAP 10 11 -- 10 BUN 19 17 -- 17 CREA 0.9 0.8 -- 0.86 CALCIUM 7.9* 7.9* -- 8.1* MG 2.3 2.1 < > -- < > = values in this interval not displayed. Recent Labs 10/30/1841710/29/1843810/28/18 0835 10/27/18 1323 GLU 86 90 99 94 Recent Labs 10/28/18 0835 BNP 101.07* No results for input(s): PROTIME, INR, PTT in the last 168 hours. No results for input(s): IRON, TIBC, PCTSAT, FERRITIN, TSH, [id number], FOLATE in the last 168 hours. Recent Labs Lab 10/28/18 0835 PROCALCITONI 1.59* No results for input(s): AMYLASE, LIPASE in the last 168 hours. No results for input(s): TRIG, CHOL, HDL, LDL in the last 168 hours. No results for input(s): AMMONIA in the last 168 hours. PROBLEM LIST Principal Problem: Mechanical instability of hip prosthesis Active Problems: Artificial joint pain Shortness of breath Acute respiratory failure with hypoxia Morbid obesity Vitamin D deficiency ASSESSMENT & PLAN Acute hypoxic respiratory failure. Possibly fluid overload versus aspiration pneumonia. We will continue Lasix and albuterol . We will continue Zosyn. We will continue BiPAP and high flow oxygen as needed. Pulmonary consulted . CT scan results with no evidence of PE. Bilateral lower extremity Doppler ultrasound aron ws no DVT. Echocardiogram normal EF. Possible aspiration pneumonia. We will continue Zosyn. White count is trending down. Pat ient is afebrile. Hypertension. Blood pressure is controlled off medications. Clonidine discontinued. Status post left posterior total hip arthroplasty revision. Management per orthopedic surg mirza. We will continue MS Contin, Celebrex and Dilaudid as needed for pain. Morbid obesity with possible underlying obstructive sleep apnea. We we will continue BiPAP . DVT prophylaxis. We will continue Lovenox. GI prophylaxis. We will continue Protonix. Depression. Will continue Celexa. Constipation. Will continue stool softeners. Will continue lactulose as needed. Nicotine abuse. Advised patient to quit. Will continue nicotine patch. Deconditioning. Physical therapy recommended [facility] when stable. Plan discussed with patient. All questions were answered . All data was reviewed. Disposition: Inpatient Code Status: Full Code Yuki Pruett MD 10/30/2018 8:02 This entry has been created using Dealo Speech Recognition software and [employer]. The entry has been reviewed and there may still exist sound alike word errors. Kanwal Diego RN - 10/30/2018 0648 PDTAttempted to put patient on high flow 02 x2 attempts. Was unable t o keep 02 above 80's placed patient back on biPAP. Otherwise VSS and hourly rounding unevent ful. Chart check complete. Víctor Wells ARNP - [address] [facility] Service: Orthopedic Surgery Progress Note 10/29/2018 Hospital Day: LOS: 5 days Post-Op Day: 5 Days Post-Op SUBJECTIVE Patient Summary: Patient resting comfortably in bed with BiPAP in place. Patient stat es pain is better. Events Overnight: No orthopedic events. Scheduled Medications acetaminophen 1,000 mg Oral 3 times per day albuterol-ipratropium 3 mL Nebulization Q4H While awake celecoxib 200 mg Oral BID citalopram 40 mg Oral Daily enoxaparin 40 mg Subcutaneous Daily furosemide 40 mg Intravenous BID morphine 15 mg Oral 2 times per day nicotine 1 patch Transdermal Daily pantoprazole 40 mg Oral BID AC pharmacy consult - other medications/reasons Other Pharmacy Consult piperacillin-tazobactam 3.375 g Intravenous Q8H Continuous Infusions PRN Medications albuterol, bisacodyl, calcium carbonate, diphenhydrAMINE OR diphenhydrAMINE OR diph enhydrAMINE, docusate sodium, HYDROmorphone, hydrOXYzine hydrochloride, lactulose, magnesium hydroxide, menthol throat lozenges, metoclopramide, metoclopramide, ondansetron, ondansetro n, oxyCODONE, phenol, polyethylene glycol, prochlorperazine, senna, traMADol OBJECTIVE Vital Signs: BP 102/55 | Pulse 94 | Temp 36.3 C (97.4 F) (Axillary) | Resp 26 | Ht 1.524 m (5') | Wt 126.4 kg (278 lb 10.6 oz) | LMP 10/24/2018 (Exact Date) | SpO2 94% | ? No | BMI 54.42 kg/m Physical Exam Ortho Exam Dressing clean dry and intact left hip. DATA CBC: Lab Results Component Value Date WBC 15.10 (H) 10/29/2018 RBC 3.45 (L) 10/29/2018 RBC 4.78 10/06/2018 HGB 10.8 (L) 10/29/2018 HCT 31.3 (L) 10/29/2018 MCV 90.6 10/29/2018 MCH 31.2 10/29/2018 MCHC 34.4 10/29/2018 PLT 341 10/29/2018 MPV 7.6 10/29/2018 DIFFTYPE MANUAL 10/29/2018 CMP: Lab Results Component Value Date NA 138 10/29/2018 K 4.2 10/29/2018 CL 104 10/29/2018 CO2 27 10/29/2018 ANIONGAP 11 10/29/2018 GLUF 119 (H) 10/06/2018 BUN 17 10/29/2018 BCR 16 10/06/2018 GLOB 3.9 10/06/2018 AGRATIO 0.8 (L) 10/06/2018 BILITOT 0.2 10/06/2018 AST 30 10/06/2018 ALT 26 10/06/2018 EGFR >60 10/29/2018 PT/INR: No results found for: PROTIME, INR PTT: No results found for: APTT[APTT @LABMICRORCNT@ PROBLEM LIST Principal Problem: Mechanical instability of hip prosthesis Active Problems: Artificial joint pain Shortness of breath Acute respiratory failure with hypoxia Morbid obesity ASSESSMENT & PLAN A) postop p day #5 left total hip arthroplasty P) no change in orthopedic plan. Continue medical care per pulmonology and hospitalist Code Status: Full Code WENCESLAO De Guzman 10/29/2018 Gianna June RN - 10/29/2018 1842 PDTRemains on Bipap FiO2 55% and SpO2 >93%. Taken off shortly and rep laced w high flow nasal cannula for periods of eating. Needing recovery period w transition from high flow to BiPap. HR 90s at rest. 100s w activity in bed. Afebrile. BP soft in the ea rly afternoon however SBP 100s-120s. Bp cycling q hour. Placed on bedpan for feelings of BM, no BM produced. Lactulose given today. PRN trazadone given, states this helped the pain in her L leg. Appears comfortable. Sent sputum for culture. End of shift chart review complete. Gianna Wasserman RN Gianna June RN - 10/29/2018 1111 PDTTransferred pt to 9rp, immediately placed on Bipap fio2 titrated from 50% to 65%. Called Dr. Pruett to determine if pt is to switch to high flow, awaiting Dr. Radha danielle to see this pt today. [facility] and report any new findings. Gianna Wasserman RN Yuki Courtney MD - 10/29/[address] [facility] Service: Hospitalist Progress Note Hospital Day: LOS: 5 days SUBJECTIVE Patient Summary: 48-year-old female with history of anxiety, depression, PTSD, morbid obesity and asthma admitted with left posterior total hip arthroplasty revision on October 24 she remained hospitalized for pain control and difficulty with ambulation. Hospitalist con sulted for shortness of breath. Pulmonary consulted. Patient has been started on Zosyn for possible aspiration pneumonia. Events Overnight: Patient still complains of shortness of breath. She is passing gas. She feels that she is constipated. Patient is anxious. She complains of pain in that hip. Scheduled Medications acetaminophen 1,000 mg Oral 3 times per day albuterol-ipratropium 3 mL Nebulization Q4H While awake celecoxib 200 mg Oral BID citalopram 40 mg Oral Daily cloNIDine 0.1 mg Oral BID enoxaparin 40 mg Subcutaneous Daily furosemide 40 mg Intravenous BID morphine 15 mg Oral 2 times per day nicotine 1 patch Transdermal Daily pantoprazole 40 mg Oral BID AC pharmacy consult - other medications/reasons Other Pharmacy Consult piperacillin-tazobactam 3.375 g Intravenous Q8H Continuous Infusions PRN Medications albuterol, bisacodyl, calcium carbonate, diphenhydrAMINE OR diphenhydrAMINE OR diph enhydrAMINE, docusate sodium, HYDROmorphone, hydrOXYzine hydrochloride, lactulose, magnesium hydroxide, menthol throat lozenges, metoclopramide, metoclopramide, ondansetron, ondansetro n, oxyCODONE, phenol, polyethylene glycol, prochlorperazine, senna, traMADol OBJECTIVE Vital Signs: BP 105/59 | Pulse 102 | Temp 37.1 C (98.8 F) (Axillary) | Resp 24 | Ht 1.524 m (5') | Wt 126.4 kg (278 lb 10.6 oz) | LMP 10/24/2018 (Exact Date) | SpO2 91% | ? No | BMI 54.42 kg/m Patient Vitals for the past 24 hrs: BP Temp Temp src Pulse Resp SpO2 Weight 10/29/18 0326 105/59 37.1 C (98.8 F) Axillary 102 24 91 % 126.4 kg (278 lb 10.6 oz) 10/29/18 0138 109/64 10/29/18 0133 102/68 10/29/18 0107 98/64 90 % 10/29/18 0000 95/60 Axillary 105 20 (!) 89 % 10/28/18 2337 105 23 (!) 88 % 10/28/18 2149 96/55 10/28/182134 93/51 37.2 C (99 F) Axillary 103 18 96 % 10/28/182005 (!) 89/53 37.2 C (98.9 F) Oral 98 22 91 % 10/28/18 1618 97/56 36.5 C (97.7 F) Oral 102 24 92 % 10/28/18 1500 92 94 % 10/28/18 1337 94 % 10/28/18 1331 (!) 77 % 10/28/18 1235 108/58 36.5 C (97.7 F) Axillary 94 20 91 % 10/28/18 1050 92 14 95 % 10/28/18 1004 93 % 10/28/18 1003 104 22 (!) 77 % 10/28/18 0830 102/55 36.5 C (97.7 F) Oral 92 20 92 % Intake/Output Summary (Last 24 hours) at 10/29/2018 0739 Last data filed at 10/29/2018 0612 Gross per 24 hour Intake 876 ml Output 2350 ml Net -1474 ml Physical Exam: Constitutional: Alert and oriented to person, place, and time. Appears well-developed and w ell-nourished. Lying in bed on BiPAP. HEENT: Neck supple, no JVD, non icteric sclera. Cardiovascular: Normal rate, regular rhythm, normal heart sounds with S1 and S2, distant heart sounds. Pulmonary/Chest: Effort normal and breath sounds are decreased bilaterally. Bibasilar rale s present. Abdominal: Soft. Bowel sounds are normal. exhibits no distension and no mass. There is no t enderness. There is no rebound and no guarding. Extremeties/Musculoskeletal: exhibits no edema. Surgical dressing present over the left hip. Neurological: Alert and oriented to person, place, and time. Skin: Skin is warm and dry. Psychiatric: Has a normal mood and affect. DATA Recent Labs 10/29/18 04310/28/18 0835 WBC 15.10* 15.60* HGB 10.8* 11.1* HCT 31.3* 33.1* PLT 341 296 MCV 90.6 90.1 Recent Labs Lab 10/29/18 0439 10/28/18 0835 10/27/18 1323 NA 138 136 133* K 4.2 4.5 4.8 CL 104 104 101 CO2 27 27 28 ANIONGAP 11 10 9 BUN 17 17 12 CREA 0.8 0.86 0.68 CALCIUM 7.9* 8.1* 8.4* MG 2.1 -- -- Recent Labs 10/29/18 0439 10/28/18 0835 10/27/18 1323 GLU 90 99 94 Recent Labs 10/28/18 0835 BNP 101.07* No results for input(s): PROTIME, INR, PTT in the last 168 hours. No results for input(s): IRON, TIBC, PCTSAT, FERRITIN, TSH, [id number], FOLATE in the last 168 hours. Recent Labs Lab 10/28/18 0835 PROCALCITONI 1.59* No results for input(s): AMYLASE, LIPASE in the last 168 hours. No results for input(s): TRIG, CHOL, HDL, LDL in the last 168 hours. No results for input(s): AMMONIA in the last 168 hours. PROBLEM LIST Principal Problem: Mechanical instability of hip prosthesis Active Problems: Artificial joint pain Shortness of breath Acute respiratory failure with hypoxia Morbid obesity ASSESSMENT & PLAN Acute hypoxic respiratory failure. Possibly fluid overload versus aspiration pneumonia. We will continue Lasix and albuterol . We will continue Zosyn. We will continue BiPAP and high flow oxygen as needed. Pulmonary consulted and discussed with Dr. Joseph. CT scan results with no evidence of PE. Bilateral lower extremity Doppler ultrasound aron ws no DVT. Echocardiogram pending. Possible aspiration pneumonia. We will continue Zosyn. White count remains elevated. Hypertension. Blood pressure is on the lower side. Will stop clonidine. Status post left posterior total hip arthroplasty revision. Management per orthopedic surg mirza. We will continue MS Contin, Celebrex and Dilaudid as needed for pain. Morbid obesity with possible underlying obstructive sleep apnea. We we will continue BiPAP . DVT prophylaxis. We will continue Lovenox. GI prophylaxis. We will continue Protonix. Depression. Will continue Celexa. Constipation. Will continue stool softeners. Nicotine abuse. Advised patient to quit. Will continue nicotine patch. Plan discussed with patient. All questions were answered . All data was reviewed. Disposition: Inpatient Code Status: Full Code Yuki Pruett MD 10/29/2018 7:39 This entry has been created using Dealo Speech Recognition software and [employer]. The entry has been reviewed and there may still exist sound alike word errors. Víctor Wells A SENIOR MANUFACTURING SUPERVISOR - 10/28/[address] [facility] Service: Orthopedic Surgery Progress Note 10/28/2018 Hospital Day: LOS: 4 days Post-Op Day: 4 Days Post-Op SUBJECTIVE Patient Summary: Patient is 4 days left total hip arthroplasty, having increasing aron rtness of breath and respiratory issues today, currently under care of hospitalist and pulmo nologist for medical issues. Events Overnight: No orthopedic events. Scheduled Medications acetaminophen 1,000 mg Oral 3 times per day albuterol-ipratropium 3 mL Nebulization Q4H While awake celecoxib 200 mg Oral BID citalopram 40 mg Oral Daily cloNIDine 0.1 mg Oral BID enoxaparin 40 mg Subcutaneous Daily furosemide 40 mg Intravenous BID morphine 15 mg Oral 2 times per day nicotine 1 patch Transdermal Daily pantoprazole 40 mg Oral BID AC pharmacy consult - other medications/reasons Other Pharmacy Consult piperacillin-tazobactam 3.375 g Intravenous Q8H Continuous Infusions PRN Medications albuterol, bisacodyl, calcium carbonate, diphenhydrAMINE OR diphenhydrAMINE OR diph enhydrAMINE, docusate sodium, HYDROmorphone, hydrOXYzine hydrochloride, lactulose, magnesium hydroxide, menthol throat lozenges, metoclopramide, metoclopramide, ondansetron, ondansetro n, oxyCODONE, phenol, polyethylene glycol, prochlorperazine, senna, traMADol OBJECTIVE Vital Signs: BP 97/56 | Pulse 102 | Temp 36.5 C (97.7 F) (Oral) | Resp 24 | Ht 1.524 m (5') | W t 119 kg (262 lb 5.6 oz) | LMP 10/24/2018 (Exact Date) | SpO2 92% | ? No | BMI 51.24 kg/m Physical Exam Musculoskeletal: Left hip: She exhibits decreased range of motion, tenderness and bony tenderness. Legs: Ortho Exam DATA CBC: Lab Results Component Value Date WBC 15.60 (H) 10/28/2018 RBC 3.67 (L) 10/28/2018 RBC 4.78 10/06/2018 HGB 11.1 (L) 10/28/2018 HCT 33.1 (L) 10/28/2018 MCV 90.1 10/28/2018 MCH 30.3 10/28/2018 MCHC 33.6 10/28/2018 PLT 296 10/28/2018 MPV 7.5 10/28/2018 DIFFTYPE AUTOMATED 10/28/2018 CMP: Lab Results Component Value Date NA 136 10/28/2018 K 4.5 10/28/2018 CL 104 10/28/2018 CO2 27 10/28/2018 ANIONGAP 10 10/28/2018 GLUF 119 (H) 10/06/2018 BUN 17 10/28/2018 BCR 16 10/06/2018 GLOB 3.9 10/06/2018 AGRATIO 0.8 (L) 10/06/2018 BILITOT 0.2 10/06/2018 AST 30 10/06/2018 ALT 26 10/06/2018 EGFR >60 10/28/2018 PT/INR: No results found for: PROTIME, INR PTT: No results found for: APTT[APTT PROBLEM LIST Principal Problem: Mechanical instability of hip prosthesis Active Problems: Artificial joint pain Shortness of breath Acute respiratory failure with hypoxia Morbid obesity ASSESSMENT & PLAN A)s/p left TOTAL HIP ARTHROPLASTY P)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 Weight bear as tolerated LLE. Continue PT and OT as tolerated d/t sob Code Status: Full Code WENCESLAO De Guzman 10/28/2018 [facility] 0927 PDT Clinical Pharmacy Note: Piperacillin-Tazobactam (Zosyn) [facility] to initiate zosyn per Dr. Pruett S/O: 48 y.o. female starting zosyn on 10/28/18 for aspiration pneumonia. Ht Readings from Last 1 Encounters: 10/24/18 1.524 m (5') Wt Readings from Last 1 Encounters: 10/27/18 119 kg (262 lb 5.6 oz) Serum creatinine: 0.68 mg/dL 10/27/18 1323 Estimated creatinine clearance: 120 mL/min No components found for: NEUTROABS - Presented with: tachycardia and dyspnea - Infection markers: bibasilar opacities concerning for pneumonia or edema on CT - Additional antibiotics: none currently Pertinent Cultures: None at this time A/P: Renal function status: CrCl > 20 ml/minWill begin Zosyn with loading dose of 4.5 g IV over 30 min, then 4 hours after dose is complete, continue with 3.375 g IV Q8H (each 3.375 g dose to be infused over 4 hours). Pharmacy will continue monitoring patient for appropriate dosing per renal function. NAVEEN TOURE RPH 9:21 10/28/2018 Pharmacist Yuki Courtney MD - 10/28/[address] [facility] Service: Hospitalist Progress Note Hospital Day: LOS: 4 days SUBJECTIVE Patient Summary: 48-year-old female with history of anxiety, depression, PTSD, morbid obesity and asthma admitted with left posterior total hip arthroplasty revision on October 24 she remained hospitalized for pain control and difficulty with ambulation. Hospitalist con sulted for shortness of breath. Events Overnight: Patient complains of shortness of breath. She also complains of paolo n. She complains of chest wall pain. She complains of constipation. Scheduled Medications acetaminophen 1,000 mg Oral 3 times per day albuterol-ipratropium 3 mL Nebulization Q4H While awake aspirin 325 mg Oral Daily celecoxib 200 mg Oral BID citalopram 40 mg Oral Daily cloNIDine 0.1 mg Oral BID enoxaparin 40 mg Subcutaneous Daily furosemide 40 mg Intravenous Daily morphine 15 mg Oral 2 times per day nicotine 1 patch Transdermal Daily pantoprazole 40 mg Oral BID AC pharmacy consult - other medications/reasons Other Pharmacy Consult piperacillin-tazobactam 3.375 g Intravenous Once piperacillin-tazobactam 3.375 g Intravenous Q8H Continuous Infusions PRN Medications albuterol, bisacodyl, calcium carbonate, diphenhydrAMINE OR diphenhydrAMINE OR diph enhydrAMINE, docusate sodium, HYDROmorphone, hydrOXYzine hydrochloride, lactulose, magnesium hydroxide, menthol throat lozenges, metoclopramide, metoclopramide, ondansetron, ondansetro n, oxyCODONE, phenol, polyethylene glycol, prochlorperazine, senna OBJECTIVE Vital Signs: BP 102/55 | Pulse 104 | Temp 36.5 C (97.7 F) (Oral) | Resp 22 | Ht 1.524 m (5') | Wt 119 kg (262 lb 5.6 oz) | LMP 10/24/2018 (Exact Date) | SpO2 93% | ? No | BMI 51.24 kg/m Patient Vitals for the past 24 hrs: BP Temp Temp src Pulse Resp SpO2 10/28/18 1004 93 % 10/28/18 1003 104 22 (!) 77 % 10/28/18 0830 102/55 36.5 C (97.7 F) Oral 92 20 92 % 10/28/18 0425 112/61 37.1 C (98.8 F) Axillary 91 20 96 % 10/27/18 2342 102/59 37.2 C (99 F) Oral 99 20 94 % 10/27/18 2207 97/52 37.2 C (98.9 F) Oral 108 21 93 % 10/27/182009 122/72 37.1 C (98.8 F) Oral 105 20 92 % 10/27/18 1639 122 20 90 % 10/27/18 1557 150/75 37.7 C (99.9 F) Oral 116 (!) 65 % 10/27/18 1319 131/65 36.8 C (98.2 F) Oral 110 20 98 % Intake/Output Summary (Last 24 hours) at 10/28/2018 1029 Last data filed at 10/28/2018 0426 Gross per 24 hour Intake 950 ml Output 1400 ml Net -450 ml Physical Exam: Constitutional: Alert and oriented to person, place, and time. Appears well-developed and w ell-nourished. HEENT: Neck supple, no JVD, non icteric sclera. Cardiovascular: Normal rate, regular rhythm, normal heart sounds with S1 and S2, distant heart sounds. Pulmonary/Chest: Effort normal and breath sounds are decreased bilaterally. Bilateral whee zes present. Chest wall pain is completely reproducible. Abdominal: Soft. Bowel sounds are normal. exhibits no distension and no mass. There is no t enderness. There is no rebound and no guarding. Extremeties/Musculoskeletal: exhibits no edema. Neurological: Alert and oriented to person, place, and time. Skin: Skin is warm and dry. Psychiatric: Has a normal mood and affect. DATA Recent Labs 10/28/18 0835 10/27/18 1323 WBC 15.60* 16.42* HGB 11.1* 11.6 HCT 33.1* 35.0 PLT 296 349 MCV 90.1 92.3 Recent Labs Lab 10/28/18 0835 10/27/18 1323 NA 136 133* K 4.5 4.8 CL 104 101 CO2 27 28 ANIONGAP 10 9 BUN 17 12 CREA 0.86 0.68 CALCIUM 8.1* 8.4* Recent Labs 10/28/18 0835 10/27/18 1323 GLU 99 94 Recent Labs 10/28/18 0835 BNP 101.07* No results for input(s): PROTIME, INR, PTT in the last 168 hours. No results for input(s): IRON, TIBC, PCTSAT, FERRITIN, TSH, UPGLXPOR23, FOLATE in the last 168 hours. Recent Labs Lab 10/28/18 0835 PROCALCITONI 1.59* No results for input(s): AMYLASE, LIPASE in the last 168 hours. No results for input(s): TRIG, CHOL, HDL, LDL in the last 168 hours. No results for input(s): AMMONIA in the last 168 hours. Recent Results (from the past 360 hour(s)) XR Pelvis 1 or 2 Vw Narrative PELVIS ONE VIEW CLINICAL INFORMATION: Status post revision left hip total hip arthroplasty. COMPARISON: XR ARTHROCENTESIS HIP LEFT (10/18/2018); CT PELVIS WO CONTRAST (09/19/2018); FINDINGS: Bilateral total hip prostheses. Status post revision left total hip arthroplasty. Femoral head prosthesis is well seated within the acetabular component. No displaced fracture fragments. IMPRESSION: Revised left hip prosthesis is well seated within the acetabular component. No unexpected postoperative findings. Dictated by: Korina Gabriel George Signed by: Korina Machado Michael Sign Date/Time: 10/24/2018 8:54 PM The radiologist has reviewed the images and edited/approved the report. For interventional procedures, the signing radiologist was present for the choi portions of the exam. XR Pelvis Complete 3 + Vw Narrative PELVIS COMPLETE MINIMUM THREE VIEWS CLINICAL INFORMATION: Post operative left hip. COMPARISON: XR PELVIS 1 OR 2 VW (10/24/2018); XR HIP 2 VIEW LEFT (09/11/2018); FINDINGS: Bilateral total hip prostheses, with 2 right and 3 left hip screws anchoring the bilateral acetabular prostheses. Moderate length left femoral prosthesis. No evidence of periprosthetic loosening. There apparently has been interval left hip surgery. No periprosthetic fracture or evidence of loosening. IMPRESSION: 1. Bilateral total hip prostheses appear unremarkable. Signed by: Korina Ahn Shawn Sign Date/Time: 10/27/2018 11:57 AM XR Chest AP Portable Narrative CHEST PORTABLE ONE VIEW CLINICAL INFORMATION: Shortness of breath COMPARISON: None FINDINGS: Bilateral perihilar congestion and diffuse interstitial opacities seen. There appears to be right paratracheal and right hilar prominence. Cardiomediastinal silhouette otherwise appears unremarkable. Osseous structures appear unremarkable. IMPRESSION: Bilateral perihilar congestion, diffuse interstitial opacities. Findings likely represent pulmonary edema, although pneumonia is also a consideration. Prominence of the right paratracheal and right hilar tissues, nonspecific. Follow-up to radiographic resolution in 6 weeks after appropriate therapy is recommended to exclude the possibility of a neoplastic process. Signed by: Korina Donovan, Gilles Sign Date/Time: 10/27/2018 5:[address] Angiogram Pulmonary w Contrast Narrative CT ANGIOGRAM PULMONARY CLINICAL INFORMATION: Shortness of breath, Tachycardia with chest discomfort. COMPARISON: XR CHEST AP PORTABLE (10/27/2018); PROCEDURE: Thin-section images of the entire chest after the administration of 100 ml Omnipaque 350 intravenous contrast. 3D MIP thin slab images and 2D multiplanar reconstructions performed. At least one of the following CT dose optimization techniques were used: Automated exposure control; Adjustment of mA and/or kV according to patient size; Use of iterative reconstruction technique. FINDINGS: PULMONARY ARTERIES: Diminished sensitivity due to combination of patient body habitus, respiratory motion artifact and beam hardening artifact. No gross evidence of a main pulmonary artery embolus seen. Lobar and segmental pulmonary arteries are not well assessed. RIGHT VENTRICLE TO LEFT VENTRICLE RATIO: Not applicable. (Maximum short axis diameter on axial image. Applicable only when pulmonary embolism present. Abnormal greater than or equal to 0.9.) CHEST Lungs, Pleura and Airways: Throughout both lungs, there are patchy airspace and ground-glass opacities seen, more prominent on the right. No pleural effusion seen Mediastinum: No cardiomegaly or pericardial effusion. Aorta does not appear aneurysmal. Lymph Nodes: There are no enlarged lymph nodes seen. Upper Abdomen: No significant abnormality appreciated. BODY WALL Soft Tissues: No signal abnormality appreciated. Bones: No acute or destructive osseous process seen. IMPRESSION: Diminished sensitivity. No gross evidence of a main pulmonary artery embolus seen. Lobar and segmental pulmonary arteries are not well assessed. If further imaging is warranted, consider correlation with V/Q scan. Bilateral pulmonary opacities, either pneumonia or edema. Follow-up to resolution is recommended to exclude the possibility of a neoplastic process. Signed by: Korina Donovan, Gilles Sign Date/Time: 10/27/2018 6:46 PM PROBLEM LIST Principal Problem: Mechanical instability of hip prosthesis Active Problems: Artificial joint pain Shortness of breath Acute respiratory failure with hypoxia Morbid obesity ASSESSMENT & PLAN Acute hypoxic respiratory failure. Etiology of this is unclear. Possibly fluid overload v ersus aspiration pneumonia. We will continue Lasix and albuterol . Will start patient on Z osyn. CT scan results with no evidence of PE. We will check echocardiogram and bilateral lower extremity ultrasound. Pulmonary consulted. Discussed with Dr. Joseph. Will start patient on BiPAP. EKG showed sinus tachycardia. Possible aspiration pneumonia. We will start patient on Zosyn. White count is trending do wn. Procalcitonin level is elevated. Hypertension. Blood pressure is controlled on clonidine. Status post left posterior total hip arthroplasty revision. Management per orthopedic surg mirza. We will continue MS Contin, Celebrex and Dilaudid as needed for pain. Morbid obesity with possible underlying obstructive sleep apnea. We will start patient on BiPAP. DVT prophylaxis. We will start patient on Lovenox if okay with orthopedic surgery. GI prophylaxis. We will continue Protonix. Depression. Will continue Celexa. Constipation. Will continue stool softeners. Nicotine abuse. Advised patient to quit. Will continue nicotine patch. Plan discussed with patient. All questions were answered . All data was reviewed. Disposition: Inpatient Code Status: Full Code Yuki Pruett MD 10/28/2018 10:29 This entry has been created using Dealo Speech Recognition software and EPIC macro s. The entry has been reviewed and there may still exist sound alike word errors. Souleymane Dyson, RN - 10/28/2018 0502 PDTPt continues to be on 13L via oxy mask sat. 93%. Lung sound s are coarse, with crackles and wheezes throughout. Pt c/o left hip pain. PRN pain med gi lorenza. Chart check complete. Electronically signed by Diego Galeano, JUAN at 9 5:38 Harpal Ray MD - 10/27/[address] [facility] Adult Hospitalist Event Note Hospital Day: 3 SUBJECTIVE Patient found to be satting mid 60s on room air. Placed on fask mask. Reported dyspnea. New ly tachycardic. Denied chest pain. Denies fevers, chills, night sweats. RAT was called. See assessment and plan for further details. ROS: All other systems reviewed and negative. OBJECTIVE Vital Signs: BP 150/75 | Pulse 122 | Temp 37.7 C (99.9 F) (Oral) | Resp 20 | Ht 1.524 m (5') | Wt 119 kg (262 lb 5.6 oz) | LMP 10/24/2018 (Exact Date) | SpO2 90% | ? No | BMI 51.24 kg/m GEN: obese middle aged lady, anxious appearing HEAD: normocephalic EYES: no conjunctival icterus or injection ENT: MMM, clear oropharynx NECK: supple, no cervical lymphadenpathy CV: RR at ~70 bpm, normal S1/S2, no murmurs, very mild bilateral LE edema, unable to assess JVP due to body habitus RESP: mild expiratory wheezing throughout all lung baez, no crackles, no increased work o f breathing on ambient air ABD: soft, NT/ND, BS+, no obvious masses/organomegaly SKIN: warm and dry, no rashes MSK: normal muscle bulk and tone PSYCH: mood is good, affect congruent NEURO: grossly non-focal DATA BMP 133* 101 12 94 4.8 28 0.68 CaMgPhos 8.4* LFT 30 26 0.2 3.3* CBC 16.42* 11.6 349 35.0 Coag Last labs from current encounter as of 10/27/18-19:[address] Chest - 10/27/18 - IMPRESSION: Bilateral perihilar congestion, diffuse interstitial opacities. Findings likely represent pulmonary edema, although pneumonia is also a consideration. Prominence of the right paratracheal and right hilar tissues, nonspecific. Follow-up to radiographic resolution in 6 weeks after appropriate therapy is recommended to exclude the possibility of a neoplastic process. PROBLEM LIST Principal Problem: Mechanical instability of hip prosthesis Active Problems: Artificial joint pain Shortness of breath Resolved Problems: * No resolved hospital problems. * IMPRESSION/PLAN: Following RAT this afternoon patient was assessed and found to be newly tachycardic to 120s and hypoxia requiring up to 15L of an oxygen mask. Apparently in the moments prior to the R AT she was found by a nurse to be satting in 60s and short of breath. This represented a lar ge change from my assessment of her earlier today when she was speaking in full sentences on room air and satting high 90s. Given large change in clinical status in a recently post-ope rative patient I elected to order a CT-PE to rule out thromboembolism. Read just came back w ithout gross evidence of a main pulmonary embolus but did show bibasilar opacities concernin g for pneumonia or edema. Patient has not spiked a fever and is without a leukocytosis to lazo ggest infection. I also do not suspect her to be aspirating. She has also been maintained on IV fluids. I therefore believe these findings to most likely reflect pulmonary edema. I hav e written for 40 mg of IV lasix to be given now and BID dosing for tomorrow. As reported in my daily note her body habitus makes an assessment of her volume status difficult however wh en taken into context of her imaging from today she know appears to be volume overloaded. -lasix 40 mg IV now -lasix 40 mg IV BID to start tomorrow Spent more than 35 minutes of critical care time reviewing patient's labs, diagnostic tests , examination of patient, discussing plan of care with patient and family, coordination of c are and answered their questions. Harpal Fine MD 19:14 10/27/2018 Gina Wahl C RT - 10/27/2018 1645 PDTPt's O2 needs suddenly, increased WOB incresed.. RAT called. Prn n eb given to help alleviate expiratory wheezing. BS after decreased with some remaining expi ratory wheezes. Pt on 12lpm oxy mask. Prn neb also given earlier in shift to help with trinity athing. Pt was able to expectorate large thick yellow mucus. Emilio Dawn PA-C - 10/27/2018 0950 PDT Patient notes this morning she has had increased pain not well controlled with current pain regimen. She notes working with pt and continuing to be touch down weight bearing. She al so note developing sob and chest tightness sxs that developed this am after returning from t herapy. Denies dizziness, nausea, cough, chest pain, abdominal pain vomiting or headache 1. Pain in prosthetic joint, initial encounter ([facility]) 2. Mechanical complication of prosthetic knee implant, initial encounter ([facility]) 3. Mechanical instability of hip prosthesis ([facility]) Past Medical History: Diagnosis Date Anxiety Anxious depression Arthralgia Arthritis Asthma not using inhalers DDD (degenerative disc disease), lumbar Deliberate self-cutting history of Depression Heartburn Hemorrhage of gastrointestinal tract 2015 upper and lower due ulcers Morbid obesity with BMI of 50.0-59.9, adult ([facility]) Pain in prosthetic joint ([facility]) with instability Panic attacks states can be severe prior to surgeries PTSD (post-traumatic stress disorder) Current Facility-Administered Medications Medication Dose Route Frequency Provider Last Rate Last Dose acetaminophen (TYLENOL) tablet 1,000 mg 1,000 mg Oral 3 times per day Miah arboleda MD 1,000 mg at 10/27/18 0510 albuterol 90 mcg/puff inhaler 2 puff 2 puff Inhalation RT Q4H PRN Fab Vickers 2 puff at 10/27/18 0528 albuterol-ipratropium 2.5-0.5 mg/3 mL nebulizer solution 3 mL 3 mL Nebulization RT Q4H PRN Miah Monique MD 3 mL at 10/27/18 1014 aspirin EC tablet 325 mg 325 mg Oral Daily Miah Monique MD 325 mg at 10/27/18 0915 bisacodyl (DULCOLAX) suppository 10 mg 10 mg Rectal Daily PRN Miah Monique MD calcium carbonate (TUMS) chewable tablet 1,000 mg 1,000 mg Oral Q2H PRN Miah rod MD 1,000 mg at 10/27/18 0924 celecoxib (CELEBREX) capsule 200 mg 200 mg Oral BID Miah Monique MD 200 mg at 10/26/18 2110 citalopram (celeXA) tablet 40 mg 40 mg Oral Daily Miah Monique MD 40 mg at 0915 cloNIDine (CATAPRES) tablet 0.1 mg 0.1 mg Oral BID Miah Monique MD 0.1 mg at 0 10/27/18 0915 diphenhydrAMINE (BENADRYL) injection 12.5 mg 12.5 mg Intravenous Q4H PRN Miah marrufo MD Or diphenhydrAMINE (BENADRYL) capsule 25 mg 25 mg Oral Q4H PRN Miah Monique MD Or diphenhydrAMINE (BENADRYL) 12.5 mg/5 mL liquid 25 mg 25 mg Oral Q4H PRN Miah rod MD docusate sodium (COLACE) capsule 100 mg 100 mg Oral BID PRN Miah Monique MD 10 0 mg at 10/27/18 0915 gabapentin (NEURONTIN) capsule 200 mg 200 mg Oral TID Miah Monique MD 200 mg a t 10/27/18 0916 HYDROmorphone (DILAUDID) injection 0.25-1 mg 0.25-1 mg Intravenous Q2H PRN Miah sweeney MD 1 mg at 10/25/18 0230 hydrOXYzine hydrochloride (ATARAX) tablet 10 mg 10 mg Oral TID PRN Miah Monique MD lactated ringers (LR) infusion Intravenous Continuous Miah Monique MD 100 mL/hr at 10/25/18 0539 lactulose liquid 30 mL 30 mL Oral Daily PRN Miah Monique MD magnesium hydroxide (MILK OF MAGNESIA) 400 mg/5 mL suspension 30 mL 30 mL Oral Nightly PRN Miah Monique MD menthol (HALLS) lozenge 1 lozenge 1 lozenge Buccal Q2H PRN Miah Monique MD metoclopramide (REGLAN) 5 mg/mL injection 10 mg 10 mg Intravenous Q4H PRN Miah donovan MD metoclopramide (REGLAN) tablet 10 mg 10 mg Oral Q4H PRN Miah Monique MD morphine (MS CONTIN) ER tablet 15 mg 15 mg Oral 2 times per day Miah Monique MD 15 mg at 10/27/18 0915 nicotine (NICODERM) 7 mg/24 hr 1 patch 1 patch Transdermal Daily Miah Monique MD 1 patch at 10/27/18 0919 ondansetron (ZOFRAN ODT) disintegrating tablet 4 mg 4 mg Oral Q6H PRN Miah arboleda MD ondansetron (ZOFRAN) injection 4 mg 4 mg Intravenous Q6H PRN Miah Monique MD oxyCODONE (ROXICODONE) tablet 5-20 mg 5-20 mg Oral Q3H PRN Miah Monique MD 20 mg at 10/27/18 0916 pantoprazole (PROTONIX) DR tablet 40 mg 40 mg Oral QAM AC Miah Monique MD 40 m g at 10/27/18 0625 phenol (CHLORASEPTIC) spray 1-2 spray 1-2 spray Mouth/Throat Q3H PRN Miah Monique MD 2 spray at 10/27/18 0628 polyethylene glycol (MIRALAX) powder 17 g 17 g Oral Daily PRN Miah Monique MD prochlorperazine tablet 10 mg 10 mg Oral Q6H PRN Miah Monique MD senna (SENOKOT) tablet 8.6 mg 8.6 mg Oral BID PRN Miah Monique MD 8.6 mg at 1316 Allergies Allergen Reactions Bupropion Hives Active Problems: Artificial joint pain Mechanical instability of hip prosthesis Shortness of breath Blood pressure 129/66, pulse 84, temperature 37.1 C (98.8 F), temperature source Oral, resp. rate 20, height 1.524 m (5'), weight 119 kg (262 lb 5.6 oz), last menstrual period , SpO2 100 %, not currently . Subjective: Symptoms: Worsening. She reports shortness of breath. No cough, chest pain or chest pres sure. Diet: Adequate intake. No nausea or vomiting. Activity level: Impaired due to pain. Pain: She complains of pain that is moderate. She reports pain is worsening. Pain is poo rly controlled. Objective: General Appearance: Uncomfortable. Vital signs: (most recent): Blood pressure 129/66, pulse 84, temperature 37.1 C (98.8 F ), temperature source Oral, resp. rate 20, height 1.524 m (5'), weight 119 kg (262 lb 5.6 oz ), last menstrual period 10/24/2018, SpO2 100 %, not currently . No fever. Output: Producing urine and no stool output. HEENT: Normal HEENT exam. Lungs: Increased effort. There are wheezes. Heart: Normal rate. Regular rhythm. Chest: No chest wall tenderness. Abdomen: Abdomen is soft. There is no abdominal tenderness. Pulses: Distal pulses are intact. Neurological: Patient is alert and oriented to person, place and time. Skin: Warm and dry. Left Hip Exam Other Erythema: absent Sensation: normal Pulse: present Comments: Dressing clean dry and intact Ankle strength and rom present Assesment 48 y/o female s/p left hip arthoplasty revision with increased pain and sob Plan 1. SOB Give nebulizer tx and O2 prn Monitor pulse ox If no improvement with tx will consult hospitalist consult chest xray and labs 2. Increased pain in left hip Will obtain xrays of hip and pelvis Continue scheduled pain medications and ice Continue touch down weight bearing If sxs improve will consider dc to rehab tomorrow Emilio Moreno 10/27/2018 Jimena Moore RN - 10/27/2018 0552 PDTPt VSS, ambulating, voiding, medications for pain given, pt complai jeffry of asthma getting worse and a wheeze, called Dr. Monique, LUIS A martinez tx ordered. New IV placed Chart check complete Jimena Platt RN 10/27/18 @6:26 Barbi Joy RN - 10/26/20182003 PDTPatient had increased pain with ambulation which was relieved with res t and pain medication. She is passing gas but has not had a bowel movement yet. She ambulate s with a front wheel walker and is toe touch weight baring. Her bed is in the lowest positio n, call light is within reach and she calls appropriately. Chart check complete.Electronical ly signed by Barbi Merchant RN at 10/26/2018 20:06 Loraine Linton RN - 10/26/2018 132 9 PDTCare Management Follow-Up Readmission Risk: Low Current Discharge Plan Anticipated Discharge Disposition: (P) home with assist Expected DC Date: Barriers to Discharge: Steps Taken Toward Discharge: Next Steps: Community Support Services Current Outpt/Agency/Support Groups: (P) care home (specify) Community Agency Name: Other Resources: Discharge Transportation Transportation Needs: (P) family or friend will provide Notes: Electronically signed: LORAINE MANN RN 10/26/2018 13:29 Jimena Moore RN - 10/26/2018 0731 PDTPt VSS, ambulating, voiding, medications for pain given, pt compl aining of some stinging in incision site, will try ice. Chart check complete Jimena Platt RN 10/26/18 @7:32 milio Moreno P A-[facility] - 10/25/2018 1648 PDT Patient notes that pain is well controlled at this time and has been eating and voiding wit hout issues. She is work with physical therapy and continues to be touchdown weightbearing. She denies any increased pain fevers, chills, nausea, vomiting 1. Pain in prosthetic joint, initial encounter ([facility]) 2. Mechanical complication of prosthetic knee implant, initial encounter ([facility]) 3. Mechanical instability of hip prosthesis ([facility]) Past Medical History: Diagnosis Date Anxiety Anxious depression Arthralgia Arthritis Asthma not using inhalers DDD (degenerative disc disease), lumbar Deliberate self-cutting history of Depression Heartburn Hemorrhage of gastrointestinal tract 2015 upper and lower due ulcers Morbid obesity with BMI of 50.0-59.9, adult (HCC) Pain in prosthetic joint (HCC) with instability Panic attacks states can be severe prior to surgeries PTSD (post-traumatic stress disorder) Current Facility-Administered Medications Medication Dose Route Frequency Provider Last Rate Last Dose acetaminophen (TYLENOL) tablet 1,000 mg 1,000 mg Oral 3 times per day Miah arboleda MD 1,000 mg at 10/25/18 1630 albuterol 90 mcg/puff inhaler 2 puff 2 puff Inhalation RT Q4H PRN Fab Vickers 2 puff at 10/25/18 1053 aspirin EC tablet 325 mg 325 mg Oral Daily Miah Monique MD 325 mg at 10/25/18 0533 bisacodyl (DULCOLAX) suppository 10 mg 10 mg Rectal Daily PRN Miah Monique MD calcium carbonate (TUMS) chewable tablet 1,000 mg 1,000 mg Oral Q2H PRN Miah rod MD celecoxib (CELEBREX) capsule 200 mg 200 mg Oral BID Miah Monique MD 200 mg at 10/25/18 1043 citalopram (celeXA) tablet 40 mg 40 mg Oral Daily Miah Monique MD 40 mg at 1043 cloNIDine (CATAPRES) tablet 0.1 mg 0.1 mg Oral BID Miah Monique MD 0.1 mg at 0 10/25/18 1043 diphenhydrAMINE (BENADRYL) injection 12.5 mg 12.5 mg Intravenous Q4H PRN Miah marrufo MD Or diphenhydrAMINE (BENADRYL) capsule 25 mg 25 mg Oral Q4H PRN Miah Monique MD Or diphenhydrAMINE (BENADRYL) 12.5 mg/5 mL liquid 25 mg 25 mg Oral Q4H PRN Miah rod MD docusate sodium (COLACE) capsule 100 mg 100 mg Oral BID PRN Miah Monique MD gabapentin (NEURONTIN) capsule 200 mg 200 mg Oral TID Miah Monique MD 200 mg a t 10/25/18 1630 HYDROmorphone (DILAUDID) injection 0.25-1 mg 0.25-1 mg Intravenous Q2H PRN Miah sweeney MD 1 mg at 10/25/18 0230 hydrOXYzine hydrochloride (ATARAX) tablet 10 mg 10 mg Oral TID PRN Miah Monique MD lactated ringers (LR) infusion Intravenous Continuous Miah Monique MD 100 mL/hr at 10/25/18 0539 lactulose liquid 30 mL 30 mL Oral Daily PRN Miah Monique MD [START ON 10/26/2018] magnesium hydroxide (MILK OF MAGNESIA) 400 mg/5 mL suspension 30 m L 30 mL Oral Nightly PRN Miah Monique MD menthol (HALLS) lozenge 1 lozenge 1 lozenge Buccal Q2H PRN Miah Monique MD metoclopramide (REGLAN) 5 mg/mL injection 10 mg 10 mg Intravenous Q4H PRN Miah donovan MD metoclopramide (REGLAN) tablet 10 mg 10 mg Oral Q4H PRN Miah Monique MD nicotine (NICODERM) 7 mg/24 hr 1 patch 1 patch Transdermal Daily Miah Monique MD 1 patch at 10/25/18 1046 ondansetron (ZOFRAN ODT) disintegrating tablet 4 mg 4 mg Oral Q6H PRN Miah arboleda MD ondansetron (ZOFRAN) injection 4 mg 4 mg Intravenous Q6H PRN Miah Monique MD oxyCODONE (ROXICODONE) tablet 5-20 mg 5-20 mg Oral Q3H PRN Miah Monique MD 20 mg at 10/25/18 1632 pantoprazole (PROTONIX) DR tablet 40 mg 40 mg Oral QAM AC Miah Monique MD 40 m g at 10/25/18 0533 phenol (CHLORASEPTIC) spray 1-2 spray 1-2 spray Mouth/Throat Q3H PRN Miah Monique MD polyethylene glycol (MIRALAX) powder 17 g 17 g Oral Daily PRN Miah Monique MD prochlorperazine tablet 10 mg 10 mg Oral Q6H PRN Miah Monique MD senna (SENOKOT) tablet 8.6 mg 8.6 mg Oral BID PRN Miah Monique MD Allergies Allergen Reactions Bupropion Hives Blood pressure 108/67, pulse 77, temperature 36.6 C (97.9 F), temperature source Oral, resp. rate 20, height 1.524 m (5'), weight 119 kg (262 lb 5.6 oz), last menstrual period , SpO2 96 %, not currently . Subjective: Diet: Adequate intake. No nausea or vomiting. Objective: General Appearance: Comfortable and well-appearing. Vital signs: (most recent): Blood pressure 108/67, pulse 77, temperature 36.6 C (97.9 F ), temperature source Oral, resp. rate 20, height 1.524 m (5'), weight 119 kg (262 lb 5.6 oz ), last menstrual period 10/24/2018, SpO2 96 %, not currently . Lungs: Normal effort. Neurological: Patient is alert and oriented to person, place and time. Pupils: Pupils are equal, round, and reactive to light. Skin: Cool. Left Hip Exam Other Erythema: absent Sensation: normal Pulse: present Comments: Dressing clean dry and intact no drainage or discharge 48-year-old female status post left total hip arthroplasty revision pain medications PRN Continue aspirin daily for DVT prophylaxis Touchdown weightbearing as tolerated with walker continue PT and OT Progress diet as tolerated Plan for SNF versus rehab Emilio Moreno 10/25/2018 Cassie Richter RN - 0432 PDTEnd of shift chart check complete. Cassie Merlos RN 10/25/2018 0433 documented in this encoun ter Plan of Treatment + +--------+ + + | Name | Priori | Associated Diagnoses | Order Schedule | | | ty | | | + +--------+ + + | Referral to Home Health - | Routin | Pain in prosthetic | Ordered: 11/09/2018 | | OUTPATIENT | e | joint, initial | | | | | encounter (HCC) | | | | | Mechanical | | | | | complication of | | | | | prosthetic knee | | | | | implant, initial | | | | | encounter (HCC) | | | | | Mechanical | | | | | instability of hip | | | | | prosthesis (HCC) | | | | | Shortness of breath | | | | | Morbid obesity | | | | | ([facility]) | | + +--------+ + + documented as of this encounter Procedures + +--------+ [...] | | | | encounter ([facility]) | results section. | | | | | Mechanical | | | | | | complication of | | | | | | prosthetic knee | | | | | | implant, initial | | | | | | encounter ([facility]) | | + +--------+ + + + | CULTURE, TISSUE, | Routin | 10/24/2018 | Pain in prosthetic | Results for this | | SMEAR, WITH | e | 16:41 PDT | joint, initial | procedure are in the | | ANAEROBES | | | encounter ([facility]) | results section. | | | | | Mechanical | | | | | | complication of | | | | | | prosthetic knee | | | | | | implant, initial | | | | | | encounter ([facility]) | | + +--------+ + + + | CULTURE, WOUND, | Routin | 10/24/2018 | | Results for this | | SMEAR W/CONNIEE | e | 16:41 PDT | | [...] | | | | encounter ([facility]) | | | | | | Mechanical [...] results section. | + +--------+ +---+ + documented in this encounter Results CBC with Differential (11/09/2018 4:28 PDT) + + + + + + [...] at | | | | | | [facility], [address] [facility] | | | | | | [place] | | | | | | [address] | | | | + + + + + + + + | Specimen | + + | Blood | + + + + + + + | Performing | Address | City/State/Zipcode | Phone Number | | Organization | | | | + + + + + | [facility] | [address] | [place] [address] | [phone] | + + + + + Magnesium (11/09/2018 4:28 PDT) + + + + + + | Component | Value | Ref Range | Performed | Pathologist | | | | | At | Signature | + + + + + + | Magnesium | 2.5 (H)Comment: SPECIMEN | 1.7 - 2.4 mg/dL | [facility] | | | | SLIGHTLY | | LABORATORY | | | | HEMOLYZEDTesting | | | | | | performed at [facility], [address] | | | | | | [address], | | | | | | [place] [address] | | | | + + + + + + + + | Specimen | + + | Blood | + + + + + + + | Performing | Address | City/State/Zipcode | Phone Number | | Organization | | | | + + + + + | [facility] | [address] | [place] [address] | [phone] | + + + + + Basic Metabolic Panel (11/09/2018 4:28 PDT) + + + + + + [...] | >60Comment: GFR <60: | >60 | [facility] | | | GFR | CHRONIC KIDNEY [...] | | | | | performed at [facility], [address] | | | | | | [facility], | | | | | | [place] [address] | | | | + + + + + + + + | Specimen | + + | Blood | + + + + + + + | Performing | Address | City/State/Zipcode | Phone Number | | Organization | | | | + + + + + | [facility] | [address] | [place] [address] | [phone] | + + + + + CBC with Differential (11/08/2018 3:56 PDT) + + + + + + | Component | Value | Ref Range | Performed | Pathologist | | | | | At | Signature | + + + + + + | WBC | 14.86 (H) | 3.80 - 11.00 | [facility] | | | | | K/uL | LABORATORY | | + + + + + + | RBC | 3.60 (L) | 3.70 - 5.10 | [facility] | | | | | M/uL | LABORATORY | | + + + + + + | Hemoglobin | 10.8 (L) | 11.3 - 15.5 | [facility] | | | | | g/dL | LABORATORY | | + + + + + + | Hematocrit | 32.8 (L) | 34.0 - 46.0 % | [facility] | | | | | | LABORATORY | | + + + + + + | MCV | 91.1 | 80.0 - 100.0 fl | [facility] | | | | | | LABORATORY | | + + + + + + | MCH | 30.1 | 27.0 - 34.0 pg | [facility] | | | | | | LABORATORY | | + + + + + + | MCHC | 33.1 | 32.0 - 35.5 | [facility] | | | | | g/dL | LABORATORY | | + + + + + + | RDW-SD | 46.8 | 37 - 53 fl | [facility] | | | | | | LABORATORY | | + + + + + + | Platelet | 544 (H) | 150 - 400 K/uL | [facility] | | | Count | | | LABORATORY | | + + + + + + | MPV | 7.8 | fl | [facility] | | | | | | LABORATORY | | + + + + + + | Diff Type | AUTOMATED | | [facility] | | | | | | LABORATORY | | + + + + + + | % | 73.59 | % | [facility] | | | Neutrophils | | | LABORATORY | | + + + + + + | % | 19.66 | % | [facility] | | | Lymphocytes | | | LABORATORY | | + + + + + + | Monocyte % | 5.33 | % | [facility] | | | | | | LABORATORY | | + + + + + + | Eosinophils | 1.27 | % | [facility] | | | % | | | LABORATORY | | + + + + + + | Basophils % | 0.15 | % | [facility] | | | | | | LABORATORY | | + + + + + + | Neutrophils | 10.94 (H) | 1.90 - 7.40 | [facility] | | | , Absolute | | K/uL | LABORATORY | | + + + + + + | Absolute | 2.92 | 1.00 - 3.90 | [facility] | | | Lymphocytes | | K/uL | LABORATORY | | + + + + + + | Absolute | 0.79 | 0.00 - 0.80 | [facility] | | | Monocytes | | K/uL | LABORATORY | | + + + + + + | Eosinophils | 0.19 | 0.00 - 0.50 | [facility] | | | , Absolute | | K/uL | LABORATORY | | + + + + + + | Basophils, | 0.02Comment: Testing | 0.00 - 0.10 | [facility] | | | Absolute | performed at [facility], [address] | K/uL | LABORATORY | | | | [place], | | | | | | [place] [address] | | | | + + + + + + + + | Specimen | + + | Blood | + + + + + + + | Performing | Address | City/State/Zipcode | Phone Number | | Organization | | | | + + + + + | [facility] | [address] | [place] [address] | [phone] | + + + + + Magnesium (11/08/2018 3:56 PDT) + + + + + + | Component | Value | Ref Range | Performed | Pathologist | | | | | At | Signature | + + + + + + | Magnesium | 2.7 (H)Comment: Testing | 1.7 - 2.4 mg/dL | [facility] | | | | performed at [facility], [address] | | LABORATORY | | | | [place] [place], | | | | | | [place] [address] | | | | + + + + + + + + | Specimen | + + | Blood | + + + + + + + | Performing | Address | City/State/Zipcode | Phone Number | | Organization | | | | + + + + + | [facility] | [address] | [place] [address] | [phone] | + + + + + Basic Metabolic Panel (11/08/2018 3:56 PDT) + + + + + + | Component | Value | Ref Range | Performed | Pathologist | | | | | At | Signature | + + + + + + | Na | 144 | 135 - 145 | [facility] | | | | | mmol/L | LABORATORY | | + + + + + + | K | 3.7 | 3.5 - 4.9 | [facility] | | | | | mmol/L | LABORATORY | | + + + + + + | Cl | 106 | 99 - 109 mmol/L | [facility] | | | | | | LABORATORY | | + + + + + + | CO2 | 30 | 23 - 32 mmol/L | [facility] | | | | | | LABORATORY | | + + + + + + | Anion Gap | 12 | 5 - 20 mmol/L | [facility] | | | | | | LABORATORY | | + + + + + + | Glucose | 87 | 65 - 99 mg/dL | [facility] | | | | | | LABORATORY | | + + + + + + | BUN | 32 (H) | 8 - 25 mg/dL | [facility] | | | | | | LABORATORY | | + + + + + + | Creatinine | 0.8 | 0.50 - 1.00 | [facility] | | | | | mg/dL | LABORATORY | | + + + + + + | BUN/Creatin | 40 | | [facility] | | | ine Ratio | | | LABORATORY | | + + + + + + | Calcium | 8.1 (L) | 8.5 - 10.5 | [facility] | | | | | mg/dL | LABORATORY | | + + + + + + | Estimated | >60Comment: GFR <60: | >60 | [facility] | | | GFR | CHRONIC KIDNEY [...] | | | | | performed at [facility], [address] | | | | | | [address] [facility], | | | | | | [place] [address] | | | | + + + + + + + + | Specimen | + + | Blood | + + + + + + + | Performing | Address | City/State/Zipcode | Phone Number | | Organization | | | | + + + + + | [facility] | [address] | [place] [address] | [phone] | + + + + + CBC with Differential (11/07/2018 4:11 PDT) + + + + + + | Component | Value | Ref Range | Performed | Pathologist | | | | | At | Signature | + + + + + + | WBC | 17.78 (H) | 3.80 - 11.00 | [facility] | | | | | K/uL | LABORATORY | | + + + + + + | RBC | 3.79 | 3.70 - 5.10 | [facility] | | | | | M/uL | LABORATORY | | + + + + + + | Hemoglobin | 11.4 | 11.3 - 15.5 | [facility] | | | | | g/dL | LABORATORY | | + + + + + + | Hematocrit | 34.1 | 34.0 - 46.0 % | [facility] | | | | | | LABORATORY | | + + + + + + | MCV | 90.1 | 80.0 - 100.0 fl | [facility] | | | | | | LABORATORY | | + + + + + + | MCH | 30.1 | 27.0 - 34.0 pg | [facility] | | | | | | LABORATORY | | + + + + + + | MCHC | 33.4 | 32.0 - 35.5 | [facility] | | | | | g/dL | LABORATORY | | + + + + + + | RDW-SD | 49.0 | 37 - 53 fl | [facility] | | | | | | LABORATORY | | + + + + + + | Platelet | 532 (H) | 150 - 400 K/uL | [facility] | | | Count | | | LABORATORY | | + + + + + + | MPV | 7.7 | fl | [facility] | | | | | | LABORATORY | | + + + + + + | Diff Type | MANUAL | | [facility] | | | | | | LABORATORY | | + + + + + + | % Segmented | 54 | % | [facility] | | | | | | LABORATORY | | | Neutrophils | | | | | + + + + + + | % Bands | 12 | % | [facility] | | | | | | LABORATORY | | + + + + + + | % | 1 | % | [facility] | | | Metamyelocy | | | LABORATORY | | | evens | | | | | + + + + + + | % | 7 | % | [facility] | | | Myelocytes | | | LABORATORY | | + + + + + + | % | 22 | % | [facility] | | | Lymphocytes | | | LABORATORY | | + + + + + + | % Monocytes | 4 | % | [facility] | | | | | | LABORATORY | | + + + + + + | Neutrophils | 9.61 (H) | 1.90 - 7.40 | [facility] | | | , Absolute | | K/uL | LABORATORY | | + + + + + + | Absolute | 2.13 (H) | 0.00 - 0.20 | [facility] | | | Band | | K/uL | LABORATORY | | | Neutrophils | | | | | + + + + + + | Absolute | 0.18 (H) | 0.00 K/uL | [facility] | | | Metamyelocy | | | LABORATORY | | | evens | | | | | + + + + + + | Absolute | 1.24 (H) | 0.00 K/uL | [facility] | | | Myelocytes | | | LABORATORY | | + + + + + + | Absolute | 3.91 (H) | 1.00 - 3.90 | [facility] | | | Lymphocytes | | K/uL | LABORATORY | | + + + + + + | Absolute | 0.71 | 0.00 - 0.80 | [facility] | | | Monocytes | | K/uL | LABORATORY | | + + + + + + | Platelet | INCREASED | | [facility] | | | Estimate | | | LABORATORY | | + + + + + + | RBC | RBC AND PLT MORPHOLOGY | | [facility] | | | Morphology | APPEAR NORMALComment: | | LABORATORY | | | | Testing performed at | | | | | | [facility], [address] | | | | | | [place] | | | | | | [address] | | | | + + + + + + + + | Specimen | + + | Blood | + + + + + + + | Performing | Address | City/State/Zipcode | Phone Number | | Organization | | | | + + + + + | [facility] | [address] | [place] [address] | [phone] | + + + + + Magnesium (11/07/2018 4:11 PDT) + + + + + + | Component | Value | Ref Range | Performed | Pathologist | | | | | At | Signature | + + + + + + | Magnesium | 2.5 (H)Comment: Testing | 1.7 - 2.4 mg/dL | [facility] | | | | performed at [facility], [address] | | LABORATORY | | | | [place], | | | | | | [place] [address] | | | | + + + + + + + + | Specimen | + + | Blood | + + + + + + + | Performing | Address | City/State/Zipcode | Phone Number | | Organization | | | | + + + + + | [facility] | [address] | [place] [address] | [phone] | + + + + + Basic Metabolic Panel (11/07/2018 4:11 PDT) + + + + + + | Component | Value | Ref Range | Performed | Pathologist | | | | | At | Signature | + + + + + + | Na | 143 | 135 - 145 | [facility] | | | | | mmol/L | LABORATORY | | + + + + + + | K | 3.9 | 3.5 - 4.9 | [facility] | | | | | mmol/L | LABORATORY | | + + + + + + | Cl | 106 | 99 - 109 mmol/L | [facility] [...] + + + + | Glucose | 98 | 65 - 99 mg/dL | [facility] | | | | | | LABORATORY | | + + + + + + | BUN | 34 (H) | 8 - 25 mg/dL | [facility] | | | | | | LABORATORY | | + + + + + + | Creatinine | 1.0 | 0.50 - 1.00 | [facility] | | | | | mg/dL | LABORATORY | | + + + + + + | BUN/Creatin | 34 | | [facility] | | | ine Ratio | | | LABORATORY | | + + + + + + | Calcium | 7.9 (L) | 8.5 - 10.5 | [facility] | | | | | mg/dL | LABORATORY | | + + + + + + | Estimated | 59 (L)Comment: GFR <60: | >60 | [facility] | | | GFR | CHRONIC KIDNEY [...] | | | | | | [facility] traceable | | | | | | equation.Testing | | | | | | performed at [facility], [address] | | | | | | [facility], | | | | | | [place] [address] | | | | + + + + + + + + | Specimen | + + | Blood | + + + + + + + | Performing | Address | City/State/Zipcode | Phone Number | | Organization | | | | + + + + + | [facility] | [address] | [place] [address] | [phone] | + + + + + Procalcitonin (11/07/2018 4:11 PDT) + + + + + + | Component | Value | Ref Range | Performed | Pathologist | | | | | At | Signature | + + + + + + | PROCALCITON | 0.10Comment: | <0.5 ng/mL | [facility] | | | IN | INTERPRETIVE | [...] | | | | | | at [facility] [place] [address] | | | | | | [facility];[place] [address] | | | | + + + + + + + + | Specimen | + + | Blood | + + + + + + + | Performing | Address | City/State/Zipcode | Phone Number | | Organization | | | | + + + + + | [facility] | [address] | [place] [address] | [phone] | + + + + + CBC with Differential (11/06/2018 4:09 PDT) + + + + + + | Component | Value | Ref Range | Performed | Pathologist | | | | | At | Signature | + + + + + + | WBC | 21.02 (H) | 3.80 - 11.00 | [facility] | | | | | K/uL | LABORATORY | | + + + + + + | RBC | 4.00 | 3.70 - 5.10 | [facility] | | | | | M/uL | LABORATORY | | + + + + + + | Hemoglobin | 11.9 | 11.3 - 15.5 | [facility] | | | | | g/dL | LABORATORY | | + + + + + + | Hematocrit | 35.7 | 34.0 - 46.0 % | [facility] | | | | | | LABORATORY | | + + + + + + | MCV | 89.2 | 80.0 - 100.0 fl | [facility] | | | | | | LABORATORY | | + + + + + + | MCH | 29.8 | 27.0 - 34.0 pg | [facility] | | | | | | LABORATORY | | + + + + + + | MCHC | 33.4 | 32.0 - 35.5 | [facility] | | | | | g/dL | LABORATORY | | + + + + + + | RDW-SD | 47.7 | 37 - 53 fl | [facility] | | | | | | LABORATORY | | + + + + + + | Platelet | 529 (H) | 150 - 400 K/uL | [...] + + + | % Segmented | 72 | % | [facility] | | | | | | LABORATORY | | | Neutrophils | | | | | + + + + + + | % Bands | 3 | % | [facility] | | | | | | LABORATORY | | + + + + + + | % | 1 | % | [facility] | | | Myelocytes | | | LABORATORY | | + + + + + + | % | 19 | % | [facility] | | | Lymphocytes | | | LABORATORY | | + + + + + + | % Monocytes | 5 | % | [facility] | | | | | | LABORATORY | | + + + + + + | Neutrophils | 15.14 (H) | 1.90 - 7.40 | [facility] | | | , Absolute | | K/uL | LABORATORY | | + + + + + + | Absolute | 0.63 (H) | 0.00 - 0.20 | [facility] | | | Band | | K/uL | LABORATORY | | | Neutrophils | | | | | + + + + + + | Absolute | 0.21 (H) | 0.00 K/uL | [facility] | | | Myelocytes | | | LABORATORY | | + + + + + + | Absolute | 3.99 (H) | 1.00 - 3.90 | [facility] | | | Lymphocytes | | K/uL | LABORATORY | | + + + + + + | Absolute | 1.05 (H) | 0.00 - 0.80 | [facility] | | | Monocytes | | K/uL | LABORATORY | | + + + + + + | Platelet | INCREASED | | [facility] | | | Estimate | | | LABORATORY | | + + + + + + | RBC | RBC AND PLT MORPHOLOGY | | [facility] | | | Morphology | APPEAR NORMALComment: | | LABORATORY | | | | Testing performed at | | | | | | [facility], [address] | | | | | | [place] | | | | | | [id number] | | | | + + + + + + + + | Specimen | + + | Blood | + + + + + + + | Performing | Address | City/State/Zipcode | Phone Number | | Organization | | | | + + + + + | [facility] | [address] | [place] [address] | [phone] | + + + + + Magnesium (11/06/2018 4:09 PDT) + + + + + + | Component | Value | Ref Range | Performed | Pathologist | | | | | At | Signature | + + + + + + | Magnesium | 2.7 (H)Comment: Testing | 1.7 - 2.4 mg/dL | [facility] | | | | performed at [facility], [address] | | LABORATORY | | | | [place], | | | | | | [place] [address] | | | | + + + + + + + + | Specimen | + + | Blood | + + + + + + + | Performing | Address | City/State/Zipcode | Phone Number | | Organization | | | | + + + + + | [facility] | [address] | [place] [address] | [phone] | + + + + + Basic Metabolic Panel (11/06/2018 4:09 PDT) + + + + + + [...] | 3.9 | 3.5 - 4.9 | [facility] | | | | | mmol/L | LABORATORY | | + + + + + + | Cl | 102 | 99 - 109 mmol/L | [facility] | | | | | | LABORATORY | | + + + + + + | CO2 | 34 (H) | 23 - 32 mmol/L | [facility] | | | | | | LABORATORY | | + + + + + + | Anion Gap | 10 | 5 - 20 mmol/L | [facility] | | | | | | LABORATORY | | + + + + + + | Glucose | 90 | 65 - 99 mg/dL | [facility] | | | | | | LABORATORY | | + + + + + + | BUN | 34 (H) | 8 - 25 mg/dL | [facility] | | | | | | LABORATORY | | + + + + + + | Creatinine | 0.8 | 0.50 - 1.00 | [facility] | | | | | mg/dL | LABORATORY | | + + + + + + | BUN/Creatin | 43 | | [facility] | | | ine Ratio | | | LABORATORY | | + + + + + + | Calcium | 8.8 | 8.5 - 10.5 | [facility] | | | | | mg/dL | LABORATORY | | + + + + + + | Estimated | >60Comment: GFR <60: | >60 | [facility] | | | GFR | CHRONIC KIDNEY [...] | | | | | performed at [facility], [address] | | | | | | [facility], | | | | | | [place] [address] | | | | + + + + + + + + | Specimen | + + | Blood | + + + + + + + | Performing | Address | City/State/Zipcode | Phone Number | | Organization | | | | + + + + + | [facility] | [address] | [place] [address] | [phone] | + + + + + CBC with Differential (11/05/2018 4:05 PDT) + + + + + + | Component | Value | Ref Range | Performed | Pathologist | | | | | At | Signature | + + + + + + | WBC | 20.45 (H) | 3.80 - 11.00 | [facility] | | | | | K/uL | LABORATORY | | + + + + + + | RBC | 4.15 | 3.70 - 5.10 | [facility] | | | | | M/uL | LABORATORY | | + + + + + + | Hemoglobin | 12.6 | 11.3 - 15.5 | [facility] | | | | | g/dL | LABORATORY | | + + + + + + | Hematocrit | 37.6 | 34.0 - 46.0 % | [facility] | | | | | | LABORATORY | | + + + + + + | MCV | 90.8 | 80.0 - 100.0 fl | [facility] | | | | | | LABORATORY | | + + + + + + | MCH | 30.3 | 27.0 - 34.0 pg | [facility] | | | | | | LABORATORY | | + + + + + + | MCHC | 33.4 | 32.0 - 35.5 | [facility] | | | | | g/dL | LABORATORY | | + + + + + + | RDW-SD | 48.6 | 37 - 53 fl | [facility] | | | | | | LABORATORY | | + + + + + + | Platelet | 505 (H) | 150 - 400 K/uL | [facility] | | | Count | | | LABORATORY | | + + + + + + | MPV | 8.3 | fl | [facility] | | | | | | LABORATORY | | + + + + + + | Diff Type | MANUAL | | [facility] | | | | | | LABORATORY | | + + + + + + | % Segmented | 71 | % | [facility] | | | | | | LABORATORY | | | Neutrophils | | | | | + + + + + + | % Bands | 3 | % | [facility] | | | | | | LABORATORY | | + + + + + + | % | 8 | % | [facility] | | | Metamyelocy | | | LABORATORY | | | evens | | | | | + + + + + + | % | 3 | % | [facility] | | | Myelocytes | | | LABORATORY | | + + + + + + | % | 11 | % | [facility] | | | Lymphocytes | | | LABORATORY | | + + + + + + | % Monocytes | 4 | % | [facility] | | | | | | LABORATORY | | + + + + + + | Neutrophils | 14.52 (H) | 1.90 - 7.40 | [facility] | | | , Absolute | | K/uL | LABORATORY | | + + + + + + | Absolute | 0.61 (H) | 0.00 - 0.20 | [facility] | | | Band | | K/uL | LABORATORY | | | Neutrophils | | | | | + + + + + + | Absolute | 1.64 (H) | 0.00 K/uL | [facility] | | | Metamyelocy | | | LABORATORY | | | evens | | | | | + + + + + + | Absolute | 0.61 (H) | 0.00 K/uL | [facility] | | | Myelocytes | | | LABORATORY | | + + + + + + | Absolute | 2.25 | 1.00 - 3.90 | [facility] | | | Lymphocytes | | K/uL | LABORATORY | | + + + + + + | Absolute | 0.82 (H) | 0.00 - 0.80 | [facility] | | | Monocytes | | K/uL | LABORATORY | | + + + + + + | Platelet | INCREASED | | [facility] | | | Estimate | | | LABORATORY | | + + + + + + | RBC | RBC AND PLT MORPHOLOGY | | [facility] | | | Morphology | APPEAR NORMALComment: | | LABORATORY | | | | Testing performed at | | | | | | [facility], [address] | | | | | | [place] | | | | | | [address] | | | | + + + + + + + + | Specimen | + + | Blood | + + + + + + + | Performing | Address | City/State/Zipcode | Phone Number | | Organization | | | | + + + + + | [facility] | [address] | [place] [address] | [phone] | + + + + + Magnesium (11/05/2018 4:05 PDT) + + + + + + | Component | Value | Ref Range | Performed | Pathologist | | | | | At | Signature | + + + + + + | Magnesium | 2.6 (H)Comment: Testing | 1.7 - 2.4 mg/dL | [facility] | | | | performed at [facility], [address] | | LABORATORY | | | | [address], | | | | | | [place] [address] | | | | + + + + + + + + | Specimen | + + | Blood | + + + + + + + | Performing | Address | City/State/Zipcode | Phone Number | | Organization | | | | + + + + + | [facility] | [address] | [place] [address] | [phone] | + + + + + Basic Metabolic Panel (11/05/2018 4:05 PDT) + + + + + + | Component | Value | Ref Range | Performed | Pathologist | | | | | At | Signature | + + + + + + | Na | 141 | 135 - 145 | [facility] | | | | | mmol/L | LABORATORY | | + + + + + + | K | 4.5 | 3.5 - 4.9 | [facility] | | | | | mmol/L | LABORATORY | | + + + + + + | Cl | 101 | 99 - 109 mmol/L | [facility] | | | | | | LABORATORY | | + + + + + + | CO2 | 34 (H) | 23 - 32 mmol/L | [facility] | | | | | | LABORATORY | | + + + + + + | Anion Gap | 11 | 5 - 20 mmol/L | [facility] | | | | | | LABORATORY | | + + + + + + | Glucose | 109 (H) | 65 - 99 mg/dL | [facility] | | | | | | LABORATORY | | + + + + + + | BUN | 31 (H) | 8 - 25 mg/dL | [facility] | | | | | | LABORATORY | | + + + + + + | Creatinine | 0.8 | 0.50 - 1.00 | [facility] | | | | | mg/dL | LABORATORY | | + + + + + + | BUN/Creatin | 39 | | [facility] | | | ine Ratio | | | LABORATORY | | + + + + + + | Calcium | 8.4 (L) | 8.5 - 10.5 | [facility] | | | | | mg/dL | LABORATORY | | + + + + + + | Estimated | >60Comment: GFR <60: | >60 | [facility] | | | GFR | CHRONIC KIDNEY [...] | | | | | | MDRD [facility] traceable | | | | | | equation.Testing | | | | | | performed at [facility], [address] | | | | | | [facility], | | | | | | [place] [address] | | | | + + + + + + + + | Specimen | + + | Blood | + + + + + + + | Performing | Address | City/State/Zipcode | Phone Number | | Organization | | | | + + + + + | [facility] | [address] | [place] [address] | [phone] | + + + + + CBC with Differential (11/04/2018 3:53 PDT) + + + + + + | Component | Value | Ref Range | Performed | Pathologist | | | | | At | Signature | + + + + + + | WBC | 18.65 (H) | 3.80 - 11.00 | [facility] | | | | | K/uL | LABORATORY | | + + + + + + | RBC | 4.02 | 3.70 - 5.10 | [facility] | | | | | M/uL | LABORATORY | | + + + + + + | Hemoglobin | 11.9 | 11.3 - 15.5 | [facility] | | | | | g/dL | LABORATORY | | + + + + + + | Hematocrit | 36.6 | 34.0 - 46.0 % | [facility] | | | | | | LABORATORY | | + + + + + + | MCV | 91.0 | 80.0 - 100.0 fl | [facility] | | | | | | LABORATORY | | + + + + + + | MCH | 29.7 | 27.0 - 34.0 pg | [facility] | | | | | | LABORATORY | | + + + + + + | MCHC | 32.7 | 32.0 - 35.5 | [facility] | | | | | g/dL | LABORATORY | | + + + + + + | RDW-SD | 48.6 | 37 - 53 fl | [facility] | | | | | | LABORATORY | | + + + + + + | Platelet | 421 (H) | 150 - 400 K/uL | [facility] | | | Count | | | LABORATORY | | + + + + + + | MPV | 8.4 | fl | [facility] | | | | | | LABORATORY | | + + + + + + | Diff Type | MANUAL | | [facility] | | | | | | LABORATORY | | + + + + + + | % nRBC | 1 (H) | 0 /100WBC | [facility] | | | | | | LABORATORY | | + + + + + + | % Segmented | 63 | % | [facility] | | | | | | LABORATORY | | | Neutrophils | | | | | + + + + + + | % Bands | 11 | % | [facility] | | | | | | LABORATORY | | + + + + + + | % | 6 | % | [facility] | | | Metamyelocy | | | LABORATORY | | | evens | | | | | + + + + + + | % | 6 | % | [facility] | | | Myelocytes | | | LABORATORY | | + + + + + + | % | 9 | % | [facility] | | | Lymphocytes | | | LABORATORY | | + + + + + + | % Monocytes | 4 | % | [facility] | | | | | | LABORATORY | | + + + + + + | Eosinophils | 1 | % | [facility] | | | % | | | LABORATORY | | + + + + + + | Neutrophils | 11.74 (H) | 1.90 - 7.40 | [facility] | | | , Absolute | | K/uL | LABORATORY | | + + + + + + | Absolute | 2.05 (H) | 0.00 - 0.20 | [facility] | | | Band | | K/uL | LABORATORY | | | Neutrophils | | | | | + + + + + + | Absolute | 1.12 (H) | 0.00 K/uL | [facility] | | | Metamyelocy | | | LABORATORY | | | evens | | | | | + + + + + + | Absolute | 1.12 (H) | 0.00 K/uL | [facility] | | | Myelocytes | | | LABORATORY | | + + + + + + | Absolute | 1.68 | 1.00 - 3.90 | [facility] | | | Lymphocytes | | K/uL | LABORATORY | | + + + + + + | Absolute | 0.75 | 0.00 - 0.80 | [facility] | | | Monocytes | | K/uL | LABORATORY | | + + + + + + | Eosinophils | 0.19 | 0.00 - 0.50 | [facility] | | | , Absolute | | K/uL | LABORATORY | | + + + + + + | Platelet | INCREASED | | [facility] | | | Estimate | | | LABORATORY | | + + + + + + | RBC | RBC AND PLT MORPHOLOGY | | [facility] | | | Morphology | APPEAR NORMALComment: | | LABORATORY | | | | Testing performed at | | | | | | [facility], [address] [place] [address] | | | | | | [place] | | | | | | [address] | | | | + + + + + + + + | Specimen | + + | Blood | + + + + + + + | Performing | Address | City/State/Zipcode | Phone Number | | Organization | | | | + + + + + | [facility] | [address] | [place] [address] | [phone] | + + + + + Magnesium (11/04/2018 3:53 PDT) + + + + + + | Component | Value | Ref Range | Performed | Pathologist | | | | | At | Signature | + + + + + + | Magnesium | 2.7 (H)Comment: Testing | 1.7 - 2.4 mg/dL | [facility] | | | | performed at [facility], [address] | | LABORATORY | | | | [address], | | | | | | [place] [address] | | | | + + + + + + + + | Specimen | + + | Blood | + + + + + + + | Performing | Address | City/State/Zipcode | Phone Number | | Organization | | | | + + + + + | [facility] | [address] | [place] [address] | [phone] | + + + + + Basic Metabolic Panel (11/04/2018 3:53 PDT) + + + + + + | Component | Value | Ref Range | Performed | Pathologist | | | | | At | Signature | + + + + + + | Na | 145 | 135 - 145 | [facility] | | | | | mmol/L | LABORATORY | | + + + + + + | K | 4.5 | 3.5 - 4.9 | [facility] | | | | | mmol/L | LABORATORY | | + + + + + + | Cl | 102 | 99 - 109 mmol/L | [facility] | | | | | | LABORATORY | | + + + + + + | CO2 | 35 (H) | 23 - 32 mmol/L | [facility] | | | | | | LABORATORY | | + + + + + + | Anion Gap | 13 | 5 - 20 mmol/L | [facility] | | | | | | LABORATORY | | + + + + + + | Glucose | 124 (H) | 65 - 99 mg/dL | [facility] | | | | | | LABORATORY | | + + + + + + | BUN | 40 (H) | 8 - 25 mg/dL | [facility] | | | | | | LABORATORY | | + + + + + + | Creatinine | 0.9 | 0.50 - 1.00 | [facility] | | | | | mg/dL | LABORATORY | | + + + + + + | BUN/Creatin | 44 | | [facility] | | | ine Ratio | | | LABORATORY | | + + + + + + | Calcium | 8.4 (L) | 8.5 - 10.5 | [facility] | | | | | mg/dL | LABORATORY | | + + + + + + | Estimated | >60Comment: GFR <60: | >60 | [facility] | | | GFR | CHRONIC KIDNEY [...] | | | | | performed at [facility], [address] | | | | | | [address], | | | | | | [place] [address] | | | | + + + + + + + + | Specimen | + + | Blood | + + + + + + + | Performing | Address | City/State/Zipcode | Phone Number | | Organization | | | | + + + + + | [facility] | [address] | [place] [address] | [phone] | + + + + + CBC with Differential (11/03/2018 3:58 PDT) + + + + + + | Component | Value | Ref Range | Performed | Pathologist | | | | | At | Signature | + + + + + + | WBC | 19.27 (H) | 3.80 - 11.00 | [facility] | | | | | K/uL | LABORATORY | | + + + + + + | RBC | 3.72 | 3.70 - 5.10 | [facility] | | | | | M/uL | LABORATORY | | + + + + + + | Hemoglobin | 11.0 (L) | 11.3 - 15.5 | [facility] | | | | | g/dL | LABORATORY | | + + + + + + | Hematocrit | 33.7 (L) | 34.0 - 46.0 % | [facility] | | | | | | LABORATORY | | + + + + + + | MCV | 90.6 | 80.0 - 100.0 fl | [facility] | | | | | | LABORATORY | | + + + + + + | MCH | 29.5 | 27.0 - 34.0 pg | [facility] | | | | | | LABORATORY | | + + + + + + | MCHC | 32.6 | 32.0 - 35.5 | [facility] | | | | | g/dL | LABORATORY | | + + + + + + | RDW-SD | 46.8 | 37 - 53 fl | [facility] | | | | | | LABORATORY | | + + + + + + | Platelet | 410 (H) | 150 - 400 K/uL | [facility] | | | Count | | | LABORATORY | | + + + + + + | MPV | 8.2 | fl | [facility] | | | | | | LABORATORY | | + + + + + + | Diff Type | MANUAL | | [facility] | | | | | | LABORATORY | | + + + + + + | % Segmented | 73 | % | [facility] | | | | | | LABORATORY | | | Neutrophils | | | | | + + + + + + | % Bands | 11 | % | [facility] | | | | | | LABORATORY | | + + + + + + | % | 1 | % | [facility] | | | Metamyelocy | | | LABORATORY | | | evens | | | | | + + + + + + | % | 2 | % | [facility] | | | Myelocytes | | | LABORATORY | | + + + + + + | % | 11 | % | [facility] | | | Lymphocytes | | | LABORATORY | | + + + + + + | % Monocytes | 2 | % | [facility] | | | | | | LABORATORY | | + + + + + + | Neutrophils | 14.06 (H) | 1.90 - 7.40 | [facility] | | | , Absolute | | K/uL | LABORATORY | | + + + + + + | Absolute | 2.12 (H) | 0.00 - 0.20 | [facility] | | | Band | | K/uL | LABORATORY | | | Neutrophils | | | | | + + + + + + | Absolute | 0.19 (H) | 0.00 K/uL | [facility] | | | Metamyelocy | | | LABORATORY | | | evens | | | | | + + + + + + | Absolute | 0.39 (H) | 0.00 K/uL | [facility] | | | Myelocytes | | | LABORATORY | | + + + + + + | Absolute | 2.12 | 1.00 - 3.90 | [facility] | | | Lymphocytes | | K/uL | LABORATORY | | + + + + + + | Absolute | 0.39 | 0.00 - 0.80 | [facility] | | | Monocytes | | K/uL | LABORATORY | | + + + + + + | Platelet | INCREASED | | [facility] | | | Estimate | | | LABORATORY | | + + + + + + | RBC | NORMAL RBC MORPHComment: | | [facility] | | | Morphology | PLATELET | | LABORATORY | | | | ANISOCYTOSISTesting | | | | | | performed at [facility], [address] | | | | | | [address], | | | | | | [place] [address] | | | | + + + + + + + + | Specimen | + + | Blood | + + + + + + + | Performing | Address | City/State/Zipcode | Phone Number | | Organization | | | | + + + + + | [facility] | [address] | [place] [address] | [phone] | + + + + + Magnesium (11/03/2018 3:58 PDT) + + + + + + | Component | Value | Ref Range | Performed | Pathologist | | | | | At | Signature | + + + + + + | Magnesium | 2.7 (H)Comment: Testing | 1.7 - 2.4 mg/dL | [facility] | | | | performed at [facility], [address] | | LABORATORY | | | | [address], | | | | | | [place] [address] | | | | + + + + + + + + | Specimen | + + | Blood | + + + + + + + | Performing | Address | City/State/Zipcode | Phone Number | | Organization | | | | + + + + + | [facility] | [address] | [place] [address] | [phone] | + + + + + Basic Metabolic Panel (11/03/2018 3:58 PDT) + + + + + + | Component | Value | Ref Range | Performed | Pathologist | | | | | At | Signature | + + + + + + | Na | 140 | 135 - 145 | [facility] | | | | | mmol/L | LABORATORY | | + + + + + + | K | 4.0 | 3.5 - 4.9 | [facility] | | | | | mmol/L | LABORATORY | | + + + + + + | Cl | 99 | 99 - 109 mmol/L | [facility] | | | | | | LABORATORY | | + + + + + + | CO2 | 39 (H) | 23 - 32 mmol/L | [facility] | | | | | | LABORATORY | | + + + + + + | Anion Gap | 6 | 5 - 20 mmol/L | [facility] | | | | | | LABORATORY | | + + + + + + | Glucose | 123 (H) | 65 - 99 mg/dL | [facility] | | | | | | LABORATORY | | + + + + + + | BUN | 39 (H) | 8 - 25 mg/dL | [facility] | | | | | | LABORATORY | | + + + + + + | Creatinine | 0.8 | 0.50 - 1.00 | [facility] | | | | | mg/dL | LABORATORY | | + + + + + + | BUN/Creatin | 49 | | [facility] | | | ine Ratio | | | LABORATORY | | + + + + + + | Calcium | 8.1 (L) | 8.5 - 10.5 | [facility] | | | | | mg/dL | LABORATORY | | + + + + + + | Estimated | >60Comment: GFR <60: | >60 | [facility] | | | GFR | CHRONIC KIDNEY [...] | | | | | | MDRD [facility] traceable | | | | | | equation.Testing | | | | | | performed at [facility], [address] | | | | | | [facility], | | | | | | [place] [address] | | | | + + + + + + + + | Specimen | + + | Blood | + + + + + + + | Performing | Address | City/State/Zipcode | Phone Number | | Organization | | | | + + + + + | [facility] | [address] | [place] [address] | [phone] | + + + + + CBC with Differential (11/02/2018 4:08 PDT) + + + + + + | Component | Value | Ref Range | Performed | Pathologist | | | | | At | Signature | + + + + + + | WBC | 19.10 (H) | 3.80 - 11.00 | [facility] | | | | | K/uL | LABORATORY | | + + + + + + | RBC | 3.66 (L) | 3.70 - 5.10 | [facility] | | | | | M/uL | LABORATORY | | + + + + + + | Hemoglobin | 10.8 (L) | 11.3 - 15.5 | [facility] | | | | | g/dL | LABORATORY | | + + + + + + | Hematocrit | 32.7 (L) | 34.0 - 46.0 % | [facility] | | | | | | LABORATORY | | + + + + + + | MCV | 89.4 | 80.0 - 100.0 fl | [facility] | | | | | | LABORATORY | | + + + + + + | MCH | 29.6 | 27.0 - 34.0 pg | [facility] | | | | | | LABORATORY | | + + + + + + | MCHC | 33.1 | 32.0 - 35.5 | [facility] | | | | | g/dL | LABORATORY | | + + + + + + | RDW-SD | 46.4 | 37 - 53 fl | [facility] | | | | | | LABORATORY | | + + + + + + | Platelet | 390 | 150 - 400 K/uL | [facility] | | | Count | | | LABORATORY | | + + + + + + | MPV | 8.0 | fl | [facility] | | | | | | LABORATORY | | + + + + + + | Diff Type | MANUAL | | [facility] | | | | | | LABORATORY | | + + + + + + | % Segmented | 74 | % | [facility] | | | | | | LABORATORY | | | Neutrophils | | | | | + + + + + + | % Bands | 13 | % | [facility] | | | | | | LABORATORY | | + + + + + + | % | 2 | % | [facility] | | | Myelocytes | | | LABORATORY | | + + + + + + | % | 8 | % | [facility] | | | Lymphocytes | | | LABORATORY | | + + + + + + | % Monocytes | 3 | % | [facility] | | | | | | LABORATORY | | + + + + + + | Neutrophils | 14.14 (H) | 1.90 - 7.40 | [facility] | | | , Absolute | | K/uL | LABORATORY | | + + + + + + | Absolute | 2.48 (H) | 0.00 - 0.20 | [facility] | | | Band | | K/uL | LABORATORY | | | Neutrophils | | | | | + + + + + + | Absolute | 0.38 (H) | 0.00 K/uL | [facility] | | | Myelocytes | | | LABORATORY | | + + + + + + | Absolute | 1.53 | 1.00 - 3.90 | [facility] | | | Lymphocytes | | K/uL | LABORATORY | | + + + + + + | Absolute | 0.57 | 0.00 - 0.80 | [facility] | | | Monocytes | | K/uL | LABORATORY | | + + + + + + | Platelet | INCREASED | | [facility] | | | Estimate | | | LABORATORY | | + + + + + + | RBC | RBC AND PLT MORPHOLOGY | | [facility] | | | Morphology | APPEAR NORMALComment: | | LABORATORY | | | | Testing performed at | | | | | | [facility], [address] | | | | | | [place] | | | | | | [address] | | | | + + + + + + + + | Specimen | + + | Blood | + + + + + + + | Performing | Address | City/State/Zipcode | Phone Number | | Organization | | | | + + + + + | [facility] | [address] | [place] [address] | [phone] | + + + + + Magnesium (11/02/2018 4:08 PDT) + + + + + + | Component | Value | Ref Range | Performed | Pathologist | | | | | At | Signature | + + + + + + | Magnesium | 2.8 (H)Comment: Testing | 1.7 - 2.4 mg/dL | [facility] | | | | performed at [facility], [address] | | LABORATORY | | | | [address], | | | | | | [place] [address] | | | | + + + + + + + + | Specimen | + + | Blood | + + + + + + + | Performing | Address | City/State/Zipcode | Phone Number | | Organization | | | | + + + + + | [facility] | [address] | [place] [address] | [phone] | + + + + + Basic Metabolic Panel (11/02/2018 4:08 PDT) + + + + + + | Component | Value | Ref Range | Performed | Pathologist | | | | | At | Signature | + + + + + + | Na | 139 | 135 - 145 | [facility] | | | | | mmol/L | LABORATORY | | + + + + + + | K | 3.6 | 3.5 - 4.9 | [facility] | | | | | mmol/L | LABORATORY | | + + + + + + | Cl | 97 (L) | 99 - 109 mmol/L | [facility] | | | | | | LABORATORY | | + + + + + + | CO2 | 38 (H) | 23 - 32 mmol/L | [facility] | | | | | | LABORATORY | | + + + + + + | Anion Gap | 8 | 5 - 20 mmol/L | [facility] | | | | | | LABORATORY | | + + + + + + | Glucose | 133 (H) | 65 - 99 mg/dL | [facility] | | | | | | LABORATORY | | + + + + + + | BUN | 31 (H) | 8 - 25 mg/dL | [facility] | | | | | | LABORATORY | | + + + + + + | Creatinine | 0.8 | 0.50 - 1.00 | [facility] | | | | | mg/dL | LABORATORY | | + + + + + + | BUN/Creatin | 39 | | [facility] | | | ine Ratio | | | LABORATORY | | + + + + + + | Calcium | 8.7 | 8.5 - 10.5 | [facility] | | | | | mg/dL | LABORATORY | | + + + + + + | Estimated | >60Comment: GFR <60: | >60 | [facility] | | | GFR | CHRONIC KIDNEY [...] | | | | | performed at [facility], [address] | | | | | [facility], | | | | | | [place] [address] | | | | + + + + + + + + | Specimen | + + | Blood | + + + + + + + | Performing | Address | City/State/Zipcode | Phone Number | | Organization | | | | + + + + + | [facility] | [address] | [place] [address] | [phone] | + + + + + CBC with Differential (11/01/2018 4:17 PDT) + + + + + + | Component | Value | Ref Range | Performed | Pathologist | | | | | At | Signature | + + + + + + | WBC | 14.67 (H) | 3.80 - 11.00 | [facility] | | | | | K/uL | LABORATORY | | + + + + + + | RBC | 3.70 | 3.70 - 5.10 | [facility] | | | | | M/uL | LABORATORY | | + + + + + + | Hemoglobin | 11.1 (L) | 11.3 - 15.5 | [facility] | | | | | g/dL | LABORATORY | | + + + + + + | Hematocrit | 33.3 (L) | 34.0 - 46.0 % | [facility] | | | | | | LABORATORY | | + + + + + + | MCV | 90.1 | 80.0 - 100.0 fl | [facility] | | | | | | LABORATORY | | + + + + + + | MCH | 30.0 | 27.0 - 34.0 pg | [facility] | | | | | | LABORATORY | | + + + + + + | MCHC | 33.3 | 32.0 - 35.5 | [facility] | | | | | g/dL | LABORATORY | | + + + + + + | RDW-SD | 47.7 | 37 - 53 fl | [facility] | | | | | | LABORATORY | | + + + + + + | Platelet | 380 | 150 - 400 K/uL | [facility] [...] + + + | % Segmented | 81 | % | [facility] | | | | | | LABORATORY | | | Neutrophils | | | | | + + + + + + | % Bands | 6 | % | [facility] | | | | | | LABORATORY | | + + + + + + | % | 11 | % | [facility] | | | Lymphocytes | | | LABORATORY | | + + + + + + | % Monocytes | 1 | % | [facility] | | | | | | LABORATORY | | + + + + + + | Eosinophils | 1 | % | [facility] | | | % | | | LABORATORY | | + + + + + + | Neutrophils | 11.88 (H) | 1.90 - 7.40 | [facility] | | | , Absolute | | K/uL | LABORATORY | | + + + + + + | Absolute | 0.88 (H) | 0.00 - 0.20 | [facility] | | | Band | | K/uL | LABORATORY | | | Neutrophils | | | | | + + + + + + | Absolute | 1.61 | 1.00 - 3.90 | [facility] | | | Lymphocytes | | K/uL | LABORATORY | | + + + + + + | Absolute | 0.15 | 0.00 - 0.80 | [facility] | | | Monocytes | | K/uL | LABORATORY | | + + + + + + | Eosinophils | 0.15 | 0.00 - 0.50 | [facility] | | | , Absolute | | K/uL | LABORATORY | | + + + + + + | RBC | RBC AND PLT MORPHOLOGY | | [facility] | | | Morphology | APPEAR NORMALComment: | | LABORATORY | | | | Testing performed at | | | | | | [facility], [address] | | | | | | [place] | | | | | | [id number] | | | | + + + + + + + + | Specimen | + + | Blood | + + + + + + + | Performing | Address | City/State/Zipcode | Phone Number | | Organization | | | | + + + + + | [facility] | [address] | [place] [address] | [phone] | + + + + + Magnesium (11/01/2018 4:17 PDT) + + + + + + | Component | Value | Ref Range | Performed | Pathologist | | | | | At | Signature | + + + + + + | Magnesium | 2.7 (H)Comment: Testing | 1.7 - 2.4 mg/dL | [facility] | | | | performed at [facility], [address] | | LABORATORY | | | | [facility], | | | | | | [place] [address] | | | | + + + + + + + + | Specimen | + + | Blood | + + + + + + + | Performing | Address | City/State/Zipcode | Phone Number | | Organization | | | | + + + + + | [facility] | [address] | [place] [address] | [phone] | + + + + + Basic Metabolic Panel (11/01/2018 4:17 PDT) + + + + + + | Component | Value | Ref Range | Performed | Pathologist | | | | | At | Signature | + + + + + + | Na | 140 | 135 - 145 | [facility] | | | | | mmol/L | LABORATORY | | + + + + + + | K | 4.0 | 3.5 - 4.9 | [facility] | | | | | mmol/L | LABORATORY | | + + + + + + | Cl | 100 | 99 - 109 mmol/L | [facility] | | | | | | LABORATORY | | + + + + + + | CO2 | 36 (H) | 23 - 32 mmol/L | [facility] | | | | | | LABORATORY | | + + + + + + | Anion Gap | 8 | 5 - 20 mmol/L | [facility] | | | | | | LABORATORY | | + + + + + + | Glucose | 138 (H) | 65 - 99 mg/dL | [facility] | | | | | | LABORATORY | | + + + + + + | BUN | 24 | 8 - 25 mg/dL | [facility] | | | | | | LABORATORY | | + + + + + + | Creatinine | 0.8 | 0.50 - 1.00 | [facility] | | | | | mg/dL | LABORATORY | | + + + + + + | BUN/Creatin | 30 | | [facility] | | | ine Ratio | | | LABORATORY | | + + + + + + | Calcium | 8.5 | 8.5 - 10.5 | [facility] | | | | | mg/dL | LABORATORY | | + + + + + + | Estimated | >60Comment: GFR <60: | >60 | [facility] | | | GFR | CHRONIC KIDNEY [...] | | | | | performed at [facility], [address] | | | | | | [facility], | | | | | | [place] [address] | | | | + + + + + + + + | Specimen | + + | Blood | + + + + + + + | Performing | Address | City/State/Zipcode | Phone Number | | Organization | | | | + + + + + | [facility] | [address] | [place] [address] | [phone] | + + + + + ANTHONY Profile, Reflex (11/01/2018 4:17 PDT) + + + + + + | Component | Value | Ref Range | Performed | Pathologist | | | | | At | Signature | + + + + + + | ANTHONY Screen, | NegativeComment: Testing | Negative | [facility] | | | Qual | performed at [facility] | | LABORATORY | | | | [place], [address] | | | | | | [place] [address] | | | | + + + + + + | C ANCA | <1:20 | Neg:<1:20 titer | [facility] | | | | | | LABORATORY [...] | | | | | | both NV-3 and MPO-ANCA | | | | | | enzyme immunoassays. | | | | | | Asmany as 5% serum | | | | | | samples are positive | | | | | | only by EIA.Ref. KIRA J | | | | | | [...] | | 3 Antibody | performed by [facility], | | LABORATORY | | | | [address], | | | | | | [facility] [address] | | | | + + + + + + + + | Specimen | + + | Blood | + + + + + + + | Performing | Address | City/State/Zipcode | Phone Number | | Organization | | | | + + + + + | [facility] | [address] | [place] [address] | [phone] | + + + + + Procalcitonin (11/01/2018 4:17 PDT) + + + + + + | Component | Value | Ref Range | Performed | Pathologist | | | | | At | Signature | + + + + + + | PROCALCITON | 1.18 (H)Comment: | <0.5 ng/mL | [facility] | | | IN | INTERPRETIVE | [...] | | | | | | at [facility];[place] [address] | | | | + + + + + + + + | Specimen | + + | Blood | + + + + + + + | Performing | Address | City/State/Zipcode | Phone Number | | Organization | | | | + + + + + | [facility] | [address] | [place] [address] | [phone] | + + + + + Potassium (10/31/2018 18:15 PDT) + + + + + + | Component | Value | Ref Range | Performed | Pathologist | | | | | At | Signature | + + + + + + | K | 3.8Comment: Testing | 3.5 - 4.9 | [facility] | | | | performed at [facility];[address] | mmol/L | LABORATORY | | | | [address];[place] | | | | | | [address] | | | | + + + + + + + + | Specimen | + + | Blood | + + + + + + + | Performing | Address | City/State/Zipcode | Phone Number | | Organization | | | | + + + + + | [facility] | [address] | [place] [address] | [phone] | + + + + + CBC with Differential (10/31/2018 4:14 PDT) + + + + + + | Component | Value | Ref Range | Performed | Pathologist | | | | | At | Signature | + + + + + + | WBC | 13.03 (H) | 3.80 - 11.00 | [facility] | | | | | K/uL | LABORATORY | | + + + + + + | RBC | 3.53 (L) | 3.70 - 5.10 | [facility] | | | | | M/uL | LABORATORY | | + + + + + + | Hemoglobin | 10.8 (L) | 11.3 - 15.5 | [facility] [...] + + + + | MCHC | 33.5 | 32.0 - 35.5 | [facility] | | | | | g/dL | LABORATORY | | + + + + + + | RDW-SD | 48.1 | 37 - 53 fl | [facility] | | | | | | LABORATORY | | + + + + + + | Platelet | 356 | 150 - 400 K/uL | [facility] | | | Count | | | LABORATORY | | + + + + + + | MPV | 7.7 | fl | [facility] | | | | | | LABORATORY | | + + + + + + | Diff Type | MANUAL | | [facility] | | | | | | LABORATORY | | + + + + + + | % nRBC | 1 (H) | 0 /100WBC | [facility] | | | | | | LABORATORY | | + + + + + + | % Segmented | 69 | % | [facility] | | | | | | LABORATORY | | | Neutrophils | | | | | + + + + + + | % Bands | 15 | % | [facility] | | | | | | LABORATORY | | + + + + + + | % | 1 | % | [facility] | | | Metamyelocy | | | LABORATORY | | | evens | | | | | + + + + + + | % | 7 | % | [facility] | | | Lymphocytes | | | LABORATORY | | + + + + + + | % Monocytes | 3 | % | [facility] | | | | | | LABORATORY | | + + + + + + | Eosinophils | 5 | % | [facility] | | | % | | | LABORATORY | | + + + + + + | Neutrophils | 9.00 (H) | 1.90 - 7.40 | [facility] | | | , Absolute | | K/uL | LABORATORY | | + + + + + + | Absolute | 1.95 (H) | 0.00 - 0.20 | [facility] | | | Band | | K/uL | LABORATORY | | | Neutrophils | | | | | + + + + + + | Absolute | 0.13 (H) | 0.00 K/uL | [facility] | | | Metamyelocy | | | LABORATORY | | | evens | | | | | + + + + + + | Absolute | 0.91 (L) | 1.00 - 3.90 | [facility] | | | Lymphocytes | | K/uL | LABORATORY | | + + + + + + | Absolute | 0.39 | 0.00 - 0.80 | [facility] | | | Monocytes | | K/uL | LABORATORY | | + + + + + + | Eosinophils | 0.65 (H) | 0.00 - 0.50 | [facility] | | | , Absolute | | K/uL | LABORATORY | | + + + + + + | RBC | 1+Comment: MACRONORMAL | | [facility] | | | Morphology | PLT MORPHTesting | | LABORATORY | | | | performed at [facility], [address] | | | | | | [address], | | | | | | [place] [address] | | | | | | | | | | + + + + + + + + | Specimen | + + | Blood | + + + + + + + | Performing | Address | City/State/Zipcode | Phone Number | | Organization | | | | + + + + + | [facility] | [address] | [place] [address] | [phone] | + + + + + Magnesium (10/31/2018 4:14 PDT) + + + + + + | Component | Value | Ref Range | Performed | Pathologist | | | | | At | Signature | + + + + + + | Magnesium | 2.3Comment: Testing | 1.7 - 2.4 mg/dL | [facility] | | | | performed at [facility], [address] | | LABORATORY | | | | [address], | | | | | | [place] [address] | | | | + + + + + + + + | Specimen | + + | Blood | + + + + + + + | Performing | Address | City/State/Zipcode | Phone Number | | Organization | | | | + + + + + | [facility] | [address] | [place] [address] | [phone] | + + + + + Basic Metabolic Panel (10/31/2018 4:14 PDT) + + + + + + | Component | Value | Ref Range | Performed | Pathologist | | | | | At | Signature | + + + + + + | Na | 141 | 135 - 145 | [facility] | | | | | mmol/L | LABORATORY | | + + + + + + | K | 3.6 | 3.5 - 4.9 | [facility] | | | | | mmol/L | LABORATORY | | + + + + + + | Cl | 101 | 99 - 109 mmol/L | [facility] | | | | | | LABORATORY | | + + + + + + | CO2 | 35 (H) | 23 - 32 mmol/L | [facility] | | | | | | LABORATORY | | + + + + + + | Anion Gap | 9 | 5 - 20 mmol/L | [facility] | | | | | | LABORATORY | | + + + + + + | Glucose | 95 | 65 - 99 mg/dL | [facility] | | | | | | LABORATORY | | + + + + + + | BUN | 20 | 8 - 25 mg/dL | [facility] | | | | | | LABORATORY | | + + + + + + | Creatinine | 0.8 | 0.50 - 1.00 | [facility] | | | | | mg/dL | LABORATORY | | + + + + + + | BUN/Creatin | 25 | | [facility] | | | ine Ratio | | | LABORATORY | | + + + + + + | Calcium | 8.1 (L) | 8.5 - 10.5 | [facility] | | | | | mg/dL | LABORATORY | | + + + + + + | Estimated | >60Comment: GFR <60: | >60 | [facility] | | | GFR | CHRONIC KIDNEY [...] | | | | | | MDRD IDNC traceable | | | | | | equation.Testing | | | | | | performed at [facility], [address] | | | | | | [facility], | | | | | | [place] [address] | | | | + + + + + + + + | Specimen | + + | Blood | + + + + + + + | Performing | Address | City/State/Zipcode | Phone Number | | Organization | | | | + + + + + | [facility] | [address] | [place] [address] | [phone] | + + + + + Phosphorus (10/31/2018 4:14 PDT) + + + + + + | Component | Value | Ref Range | Performed | Pathologist | | | | | At | Signature | + + + + + + | Phosphorus | 3.4Comment: Testing | 2.3 - 4.8 mg/dL | [facility] | | | | performed at [facility], [address] | | LABORATORY | | | | [address], | | | | | | [place] [address] | | | | + + + + + + + + | Specimen | + + | Blood | + + + + + + + | Performing | Address | City/State/Zipcode | Phone Number | | Organization | | | | + + + + + | [facility] | [address] | [place] [address] | [phone] | + + + + + XR Chest AP Portable (10/30/2018 15:15 PDT) + + | Specimen | + [...] stable. Signed | | | by: Korina Alcaraz, Kenneth Sign Date/Time: 10/30/2018 4:54 PM | | [...] | | | | Signed by: Korina Alcaraz, Kenneth | | Sign Date/Time: 10/30/2018 4:54 PM | + + + +---------+ + + | Performing | Address | City/State/Zipcode | Phone Number | | Organization | | | | + +---------+ + + | [facility] | | | | + +---------+ + + CBC with Differential (10/30/2018 4:18 PDT) + + + + + + | Component | Value | Ref Range | Performed | Pathologist | | | | | At | Signature | + + + + + + | WBC | 13.87 (H) | 3.80 - 11.00 | [facility] | | | | | K/uL | LABORATORY | | + + + + + + | RBC | 3.59 (L) | 3.70 - 5.10 | [facility] | | | | | M/uL | LABORATORY | | + + + + + + | Hemoglobin | 10.9 (L) | 11.3 - 15.5 | [facility] | | | | | g/dL | LABORATORY | | + + + + + + | Hematocrit | 32.6 (L) | 34.0 - 46.0 % | [facility] | | | | | | LABORATORY | | + + + + + + | MCV | 90.7 | 80.0 - 100.0 fl | [facility] | | | | | | LABORATORY | | + + + + + + | MCH | 30.3 | 27.0 - 34.0 pg | [facility] | | | | | | LABORATORY | | + + + + + + | MCHC | 33.4 | 32.0 - 35.5 | [facility] | | | | | g/dL | LABORATORY | | + + + + + + | RDW-SD | 49.0 | 37 - 53 fl | [facility] | | | | | | LABORATORY | | + + + + + + | Platelet | 385 | 150 - 400 K/uL | [facility] [...] + + + | % Segmented | 71 | % | [facility] | | | | | | LABORATORY | | | Neutrophils | | | | | + + + + + + | % Bands | 14 | % | [facility] | | | | | | LABORATORY | | + + + + + + | % | 2 | % | [facility] | | | Metamyelocy | | | LABORATORY | | | evens | | | | | + + + + + + | % | 1 | % | [facility] | | | Myelocytes | | | LABORATORY | | + + + + + + | % | 7 | % | [facility] | | | Lymphocytes | | | LABORATORY | | + + + + + + | % Monocytes | 3 | % | [facility] | | | | | | LABORATORY | | + + + + + + | Eosinophils | 2 | % | [facility] | | | % | | | LABORATORY | | + + + + + + | Neutrophils | 9.84 (H) | 1.90 - 7.40 | [facility] | | | , Absolute | | K/uL | LABORATORY | | + + + + + + | Absolute | 1.94 (H) | 0.00 - 0.20 | [facility] | | | Band | | K/uL | LABORATORY | | | Neutrophils | | | | | + + + + + + | Absolute | 0.28 (H) | 0.00 K/uL | [facility] | | | Metamyelocy | | | LABORATORY | | | evens | | | | | + + + + + + | Absolute | 0.14 (H) | 0.00 K/uL | [facility] | | | Myelocytes | | | LABORATORY | | + + + + + + | Absolute | 0.97 (L) | 1.00 - 3.90 | [facility] | | | Lymphocytes | | K/uL | LABORATORY | | + + + + + + | Absolute | 0.42 | 0.00 - 0.80 | [facility] | | | Monocytes | | K/uL | LABORATORY | | + + + + + + | Eosinophils | 0.28 | 0.00 - 0.50 | [facility] | | | , Absolute | | K/uL | LABORATORY | | + + + + + + | RBC | 1+Comment: STOMATONORMAL | | [facility] | | | Morphology | PLT MORPHTesting | | LABORATORY | | | | performed at [facility], [address] | | | | | | [address], | | | | | | [place] [address] | | | | | | | | | | + + + + + + + + | Specimen | + + | Blood | + + + + + + + | Performing | Address | City/State/Zipcode | Phone Number | | Organization | | | | + + + + + | [facility] | [address] | [place] [address] | [phone] | + + + + + Magnesium (10/30/2018 4:18 PDT) + + + + + + | Component | Value | Ref Range | Performed | Pathologist | | | | | At | Signature | + + + + + + | Magnesium | 2.3Comment: Testing | 1.7 - 2.4 mg/dL | [facility] | | | | performed at [facility], [address] | | LABORATORY | | | | [address], | | | | | | [place] [address] | | | | + + + + + + + + | Specimen | + + | Blood | + + + + + + + | Performing | Address | City/State/Zipcode | Phone Number | | Organization | | | | + + + + + | [facility] | [address] | [place] [address] | [phone] | + + + + + Basic Metabolic Panel (10/30/2018 4:18 PDT) + + + + + + | Component | Value | Ref Range | Performed | Pathologist | | | | | At | Signature | + + + + + + | Na | 141 | 135 - 145 | [facility] | | | | | mmol/L | LABORATORY | | + + + + + + | K | 3.9 | 3.5 - 4.9 | [facility] | | | | | mmol/L | LABORATORY | | + + + + + + | Cl | 103 | 99 - 109 mmol/L | [facility] | | | | | | LABORATORY | | + + + + + + | CO2 | 32 | 23 - 32 mmol/L | [facility] | | | | | | LABORATORY | | + + + + + + | Anion Gap | 10 | 5 - 20 mmol/L | [facility] | | | | | | LABORATORY | | + + + + + + | Glucose | 86 | 65 - 99 mg/dL | [facility] | | | | | | LABORATORY | | + + + + + + | BUN | 19 | 8 - 25 mg/dL | [facility] | | | | | | LABORATORY | | + + + + + + | Creatinine | 0.9 | 0.50 - 1.00 | [facility] | | | | | mg/dL | LABORATORY | | + + + + + + | BUN/Creatin | 21 | | [facility] | | | ine Ratio | | | LABORATORY | | + + + + + + | Calcium | 7.9 (L) | 8.5 - 10.5 | [facility] | | | | | mg/dL | LABORATORY | | + + + + + + | Estimated | >60Comment: GFR <60: | >60 | [facility] | | | GFR | CHRONIC KIDNEY [...] | | | | | | MDRD IDNC traceable | | | | | | equation.Testing | | | | | | performed at [facility], [address] | | | | | | [facility], | | | | | | [place] [address] | | | | + + + + + + + + | Specimen | + + | Blood | + + + + + + + | Performing | Address | City/State/Zipcode | Phone Number | | Organization | | | | + + + + + | [facility] | [address] | [place] [address] | [phone] | + + + + + Vitamin D, Deficiency Screen (25-Hydroxy) (10/30/2018 4:18 PDT) + + + + + + | Component | Value | Ref Range | Performed | Pathologist | | | | | At | Signature | + + + + + + | Vit D, | <12 (L)Comment: <20 | 30 - 150 ng/mL | [facility] | | | 25-Hydroxy | ng/mL Suggest [...] | | | | | performed at [facility], [address] | | | | | | [facility], | | | | | | [place] [address] | | | | + + + + + + + + | Specimen | + + | Blood | + + + + + + + | Performing | Address | City/State/Zipcode | Phone Number | | Organization | | | | + + + + + | [facility] | [address] | [place] [address] | [phone] | + + + + + Culture, [...] RESULT | Testing performed at | | [facility] | | | | [facility], [address] [facility] | | LABORATORY | | | | [place] | | | | | | [id number]: Testing | | | | | | performed at [facility], [address] | | | | | | [facility] [address], | | | | | | [place] [address] | | | | + + + + + + + + | Specimen | + + | Body Fluid | + + + + + + + | Performing | Address | City/State/Zipcode | Phone Number | | Organization | | | | + + + + + | [facility] | [address] | [place] [address] | [phone] | + + + + + ECHO [...] | | | + +---------+ + + Magnesium (10/29/2018 4:39 PDT) + + + + + + | Component | Value | Ref Range | Performed | Pathologist | | | | | At | Signature | + + + + + + | Magnesium | 2.1Comment: Testing | 1.7 - 2.4 mg/dL | [facility] | | | | performed at [facility], [address] | | LABORATORY | | | | [address], | | | | | | [place] [address] | | | | + + + + + + + + | Specimen | + + | Blood | + + + + + + + | Performing | Address | City/State/Zipcode | Phone Number | | Organization | | | | + + + + + | [facility] | [address] | [place] [address] | [phone] | + + + + + Basic Metabolic Panel (10/29/2018 4:39 PDT) + + + + + + | Component | Value | Ref Range | Performed | Pathologist | | | | | At | Signature | + + + + + + | Na | 138 | 135 - 145 | [facility] | | | | | mmol/L | LABORATORY | | + + + + + + | K | 4.2 | 3.5 - 4.9 | [facility] | | | | | mmol/L | LABORATORY | | + + + + + + | Cl | 104 | 99 - 109 mmol/L | [facility] | | | | | | LABORATORY | | + + + + + + | CO2 | 27 | 23 - 32 mmol/L | [facility] | | | | | | LABORATORY | | + + + + + + | Anion Gap | 11 | 5 - 20 mmol/L | [facility] | | | | | | LABORATORY | | + + + + + + | Glucose | 90 | 65 - 99 mg/dL | [facility] | | | | | | LABORATORY | | + + + + + + | BUN | 17 | 8 - 25 mg/dL | [facility] | | | | | | LABORATORY | | + + + + + + | Creatinine | 0.8 | 0.50 - 1.00 | [facility] | | | | | mg/dL | LABORATORY | | + + + + + + | BUN/Creatin | 21 | | [facility] | | | ine Ratio | | | LABORATORY | | + + + + + + | Calcium | 7.9 (L) | 8.5 - 10.5 | [facility] | | | | | mg/dL | LABORATORY | | + + + + + + | Estimated | >60Comment: GFR <60: | >60 | [facility] | | | GFR | CHRONIC KIDNEY [...] | | | | | performed at [facility], [address] | | | | | | [facility], | | | | | | [place] [address] | | | | + + + + + + + + | Specimen | + + | Blood | + + + + + + + | Performing | Address | City/State/Zipcode | Phone Number | | Organization | | | | + + + + + | [facility] | [address] | [place] [address] | [phone] | + + + + + CBC with Differential (10/29/2018 4:39 PDT) + + + + + + | Component | Value | Ref Range | Performed | Pathologist | | | | | At | Signature | + + + + + + | WBC | 15.10 (H) | 3.80 - 11.00 | [facility] | | | | | K/uL | LABORATORY | | + + + + + + | RBC | 3.45 (L) | 3.70 - 5.10 | [facility] | | | | | M/uL | LABORATORY | | + + + + + + | Hemoglobin | 10.8 (L) | 11.3 - 15.5 | [facility] | | | | | g/dL | LABORATORY | | + + + + + + | Hematocrit | 31.3 (L) | 34.0 - 46.0 % | [facility] | | | | | | LABORATORY | | + + + + + + | MCV | 90.6 | 80.0 - 100.0 fl | [facility] | | | | | | LABORATORY | | + + + + + + | MCH | 31.2 | 27.0 - 34.0 pg | [facility] | | | | | | LABORATORY | | + + + + + + | MCHC | 34.4 | 32.0 - 35.5 | [facility] | | | | | g/dL | LABORATORY | | + + + + + + | RDW-SD | 47.7 | 37 - 53 fl | [facility] | | | | | | LABORATORY | | + + + + + + | Platelet | 341 | 150 - 400 K/uL | [facility] | | | Count | | | LABORATORY | | + + + + + + | MPV | 7.6 | fl | [facility] | | | | | | LABORATORY | | + + + + + + | Diff Type | MANUAL | | [facility] | | | | | | LABORATORY | | + + + + + + | % Segmented | 65 | % | [facility] | | | | | | LABORATORY | | | Neutrophils | | | | | + + + + + + | % Bands | 28 | % | [facility] | | | | | | LABORATORY | | + + + + + + | % | 1 | % | [facility] | | | Myelocytes | | | LABORATORY | | + + + + + + | % | 3 | % | [facility] | | | Lymphocytes | | | LABORATORY | | + + + + + + | % Monocytes | 2 | % | [facility] | | | | | | LABORATORY | | + + + + + + | Eosinophils | 1 | % | [facility] | | | % | | | LABORATORY | | + + + + + + | Neutrophils | 9.82 (H) | 1.90 - 7.40 | [facility] | | | , Absolute | | K/uL | LABORATORY | | + + + + + + | Absolute | 4.23 (H) | 0.00 - 0.20 | [facility] | | | Band | | K/uL | LABORATORY | | | Neutrophils | | | | | + + + + + + | Absolute | 0.15 (H) | 0.00 K/uL | [facility] | | | Myelocytes | | | LABORATORY | | + + + + + + | Absolute | 0.45 (L) | 1.00 - 3.90 | [facility] | | | Lymphocytes | | K/uL | LABORATORY | | + + + + + + | Absolute | 0.30 | 0.00 - 0.80 | [facility] | | | Monocytes | | K/uL | LABORATORY | | + + + + + + | Eosinophils | 0.15 | 0.00 - 0.50 | [facility] | | | , Absolute | | K/uL | LABORATORY | | + + + + + + | RBC | RBC AND PLT MORPHOLOGY | | [facility] | | | Morphology | APPEAR NORMALComment: | | LABORATORY | | | | Testing performed at | | | | | | [facility], [address] [place] [address] | | | | | | [place] | | | | | | [address] | | | | + + + + + + + + | Specimen | + + | Blood | + + + + + + + | Performing | Address | City/State/Zipcode | Phone Number | | Organization | | | | + + + + + | [facility] | [address] | [place] [address] | [phone] | + + + + + VAS Lower Extremity Venous Bilateral [...] | | | + +---------+ + + Procalcitonin (10/28/2018 8:35 PDT) + + + + + + | Component | Value | Ref Range | Performed | Pathologist | | | | | At | Signature | + + + + + + | PROCALCITON | 1.59 (H)Comment: | <0.5 ng/mL | [facility] | | | IN | INTERPRETIVE | [...] | | | | | | at [facility];[address];[place] [address] | | | | + + + + + + + + | Specimen | + + | Blood | + + + + + + + | Performing | Address | City/State/Zipcode | Phone Number | | Organization | | | | + + + + + | [facility] | [address] | [place] [address] | [phone] | + + + + + B Type Natriuretic Peptide (10/28/2018 8:35 PDT) + + + + + + | Component | Value | Ref Range | Performed | Pathologist | | | | | At | Signature | + + + + + + | BNP | 101.07 (H)Comment: | 0 - 100 pg/mL | [facility] | | | | Testing performed at | | LABORATORY | | | | [facility];[address] | | | | | [address];[place] [address] | | | | + + + + + + + + | Specimen | + + | Blood | + + + + + + + | Performing | Address | City/State/Zipcode | Phone Number | | Organization | | | | + + + + + | [facility] | [address] | [place] [address] | [phone] | + + + + + Basic Metabolic Panel (10/28/2018 8:35 PDT) + + + + + + | Component | Value | Ref Range | Performed | Pathologist | | | | | At | Signature | + + + + + + | Na | 136 | 135 - 145 | [facility] | | | | | mmol/L | LABORATORY | | + + + + + + | K | 4.5 | 3.5 - 4.9 | [facility] | | | | | mmol/L | LABORATORY | | + + + + + + | Cl | 104 | 99 - 109 mmol/L | [facility] | | | | | | LABORATORY | | + + + + + + | CO2 | 27 | 23 - 32 mmol/L | [facility] | | | | | | LABORATORY | | + + + + + + | Anion Gap | 10 | 5 - 20 mmol/L | [facility] | | | | | | LABORATORY | | + + + + + + | Glucose | 99 | 65 - 99 mg/dL | [facility] | | | | | | LABORATORY | | + + + + + + | BUN | 17 | 8 - 25 mg/dL | [facility] | | | | | | LABORATORY | | + + + + + + | Creatinine | 0.86 | 0.50 - 1.00 | [facility] | | | | | mg/dL | LABORATORY | | + + + + + + | BUN/Creatin | 20 | | [facility] | | | ine Ratio | | | LABORATORY | | + + + + + + | Calcium | 8.1 (L) | 8.5 - 10.5 | [facility] | | | | | mg/dL | LABORATORY | | + + + + + + | Estimated | >60Comment: GFR <60: | >60 | [facility] | | | GFR | CHRONIC KIDNEY [...] | | | | | performed at [facility] [place] | | | | [address];[place], [place] | | | | | | [id number] | | | | + + + + + + + + | Specimen | + + | Blood | + + + + + + + | Performing | Address | City/State/Zipcode | Phone Number | | Organization | | | | + + + + + | [facility] | [address] | [place] [address] | [phone] | + + + + + CBC with Differential (10/28/2018 8:35 PDT) + + + + + + | Component | Value | Ref Range | Performed | Pathologist | | | | | At | Signature | + + + + + + | WBC | 15.60 (H) | 3.80 - 11.00 | [facility] | | | | | K/uL | LABORATORY | | + + + + + + | RBC | 3.67 (L) | 3.70 - 5.10 | [facility] | | | | | M/uL | LABORATORY | | + + + + + + | Hemoglobin | 11.1 (L) | 11.3 - 15.5 | [facility] | | | | | g/dL | LABORATORY | | + + + + + + | Hematocrit | 33.1 (L) | 34.0 - 46.0 % | [facility] | | | | | | LABORATORY | | + + + + + + | MCV | 90.1 | 80.0 - 100.0 fl | [facility] | | | | | | LABORATORY | | + + + + + + | MCH | 30.3 | 27.0 - 34.0 pg | [facility] | | | | | | LABORATORY | | + + + + + + | MCHC | 33.6 | 32.0 - 35.5 | [facility] | | | | | g/dL | LABORATORY | | + + + + + + | RDW-SD | 48.1 | 37 - 53 fl | [facility] | | | | | | LABORATORY | | + + + + + + | Platelet | 296 | 150 - 400 K/uL | [facility] | | | Count | | | LABORATORY | | + + + + + + | MPV | 7.5 | fl | [facility] | | | | | | LABORATORY | | + + + + + + | Diff Type | AUTOMATED | | [facility] | | | | | | LABORATORY | | + + + + + + | % | 87.27 | % | [facility] | | | Neutrophils | | | LABORATORY | | + + + + + + | % | 7.56 | % | [facility] | | | Lymphocytes | | | LABORATORY | | + + + + + + | Monocyte % | 2.27 | % | [facility] | | | | | | LABORATORY | | + + + + + + | Eosinophils | 2.09 | % | [facility] | | | % | | | LABORATORY | | + + + + + + | Basophils % | 0.81 | % | [facility] | | | | | | LABORATORY | | + + + + + + | Neutrophils | 13.61 (H) | 1.90 - 7.40 | [facility] | | | , Absolute | | K/uL | LABORATORY | | + + + + + + | Absolute | 1.18 | 1.00 - 3.90 | [facility] | | | Lymphocytes | | K/uL | LABORATORY | | + + + + + + | Absolute | 0.35 | 0.00 - 0.80 | [facility] | | | Monocytes | | K/uL | LABORATORY | | + + + + + + | Eosinophils | 0.33 | 0.00 - 0.50 | [facility] | | | , Absolute | | K/uL | LABORATORY | | + + + + + + | Basophils, | 0.13 (H) | 0.00 - 0.10 | [facility] | | | Absolute | | K/uL | LABORATORY | | + + + + + + | RBC | RBC AND PLT MORPHOLOGY | | [facility] | | | Morphology | APPEAR NORMAL | | LABORATORY | | + + + + + + | Platelet | ADEQUATE | | [facility] | | | Estimate | | | LABORATORY | | + + + + + + | Comment | SLIDE SCANNED, AGREES | | [facility] | | | | WITH AUTOMATED | | LABORATORY | | | | RESULTS.Comment: Testing | | | | | | performed at [facility] [place] | | | | | [address];[place] | | | | | | [id number] | | | | + + + + + + + + | Specimen | + + | Blood | + + + + + + + | Performing | Address | City/State/Zipcode | Phone Number | | Organization | | | | + + + + + | [facility] | [address] | [place] [address] | [phone] | + + + + + CT [...] | | + +---------+ + + XR Chest AP Portable (10/27/2018 17:05 PDT) + + | Specimen | + + | | + + + + + | Narrative | Performed At | + + + | [facility] CLINICAL INFORMATION: Shortness of | [facility] | | breath COMPARISON: None FINDINGS: Bilateral perihilar | | | congestion and diffuse interstitial opacities seen. There appears to | | | be right paratracheal and right hilar prominence. Cardiomediastinal | | | silhouette otherwise appears unremarkable. Osseous structures | | | appear unremarkable. IMPRESSION: Bilateral perihilar congestion, | | | diffuse interstitial opacities. Findings likely represent pulmonary | | | edema, although pneumonia is also a consideration. Prominence of the | | | right paratracheal and right hilar tissues, nonspecific. Follow-up | | | to radiographic resolution in 6 weeks after appropriate therapy is | | | recommended to exclude the possibility of a neoplastic process. | | | Signed by: Korina Donovan, Gilles Sign Date/Time: 10/27/2018 5:16 PM | | | | | + + + + + | Procedure Note | + + | Robin, Rad Results In - 10/27/2018 1720 PDT | | [facility] | | | | CLINICAL INFORMATION: | | Shortness of breath | | | | COMPARISON: | | None | | | | FINDINGS: | | Bilateral perihilar congestion and diffuse interstitial opacities seen. | | There appears to be right paratracheal and right hilar prominence. | | Cardiomediastinal silhouette otherwise appears unremarkable. Osseous | | structures appear unremarkable. | | | | IMPRESSION: | | Bilateral perihilar congestion, diffuse interstitial opacities. | | Findings likely represent pulmonary edema, although pneumonia is also a | | consideration. | | Prominence of the right paratracheal and right hilar tissues, | | nonspecific. | | Follow-up to radiographic resolution in 6 weeks after appropriate | | therapy is recommended to exclude the possibility of a neoplastic | | process. | | | | | | | | Signed by: Korina Donovan, Gilles | | Sign Date/Time: 10/27/2018 5:16 PM | + + + +---------+ + + | Performing | Address | City/State/Zipcode | Phone Number | | Organization | | | | + +---------+ + + | [facility] | | | | + +---------+ + + Basic Metabolic Panel (10/27/2018 13:23 PDT) + + + + + + | Component | Value | Ref Range | Performed | Pathologist | | | | | At | Signature | + + + + + + | Na | 133 (L) | 135 - 145 | [facility] | | | | | mmol/L | LABORATORY | | + + + + + + | K | 4.8 | 3.5 - 4.9 | [facility] | | | | | mmol/L | LABORATORY | | + + + + + + | Cl | 101 | 99 - 109 mmol/L | [facility] | | | | | | LABORATORY | | + + + + + + | CO2 | 28 | 23 - 32 mmol/L | [facility] | | | | | | LABORATORY | | + + + + + + | Anion Gap | 9 | 5 - 20 mmol/L | [facility] | | | | | | LABORATORY | | + + + + + + | Glucose | 94 | 65 - 99 mg/dL | [facility] | | | | | | LABORATORY | | + + + + + + | BUN | 12 | 8 - 25 mg/dL | [facility] | | | | | | LABORATORY | | + + + + + + | Creatinine | 0.68 | 0.50 - 1.00 | [facility] | | | | | mg/dL | LABORATORY | | + + + + + + | BUN/Creatin | 18 | | [facility] | | | ine Ratio | | | LABORATORY | | + + + + + + | Calcium | 8.4 (L) | 8.5 - 10.5 | [facility] | | | | | mg/dL | LABORATORY | | + + + + + + | Estimated | >60Comment: GFR <60: | >60 | [facility] | | | GFR | CHRONIC KIDNEY [...] | | | | | | MDRD IDNC traceable | | | | | | equation.Testing | | | | | | performed at [facility] | | | | | [facility];[place], [place] | | | | | | [address] | | | | + + + + + + + + | Specimen | + + | Blood | + + + + + + + | Performing | Address | City/State/Zipcode | Phone Number | | Organization | | | | + + + + + | [facility] | [address] | [place] [address] | [phone] | + + + + + CBC no Differential (10/27/2018 13:23 PDT) + + + + + + | Component | Value | Ref Range | Performed | Pathologist | | | | | At | Signature | + + + + + + | WBC | 16.42 (H) | 3.80 - 11.00 | [facility] | | | | | K/uL | [...] [facility] | | | | performed at [facility], [address] | | LABORATORY | | | | [place], | | | | | | [place] [address] | | | | + + + + + + + + | Specimen | + + | Blood | + + + + + + + | Performing | Address | City/State/Zipcode | Phone Number | | Organization | | | | + + + + + | [facility] | [address] | [place] [address] | [phone] | + + + + + ECG [...] | Robin, Rad Results In - 10/27/2018 1200 PDT | [...] [facility] | | | | performed at [facility], [address] | | LABORATORY | | | | [place], | | | | | | [place] [address] | | | | + + + + + + + + | Specimen | + + | Blood | + + + + + + + | Performing | Address | City/State/Zipcode | Phone Number | | Organization | | | | + + + + + | [facility] | [address] [facility] | [place] [address] | [phone] | + + + + + XR [...] | + + + | SPECIMEN(S): A [facility] | | LEFT HIP SYNOVIUM SPECIMEN [...] | | | abnormalities are grossly identified. Marketing Intelligence Manager sections are | | | submitted in [...] interpretation was | | | performed by [employer], [facility], [address] | | | [place], [place] ([employer]: Víctor Livingston M.D.; | | | CLIA#: [id number]).The technical component was performed by [facility] | | [facility], [address] [place] [address] [place] [address] ([employer]: | | | Nadiya Sharma MD; [facility]# [id number]). Diagnostician: Víctor Livingston | | | MDPathologistElectronically [...] | | + +---------+ + + Culture, Wound, Smear, w/Anaerobe (10/24/2018 [...] [facility] | | | Requests | [facility] | LABORATORY | | | | [address];[place] [address] | | | | + + + [...] RESULT | Testing performed at | | [facility] | | | | TCL, [address] [facility] | | LABORATORY | | | | [place] | | | | | | [id number]: Testing | | | | | | performed at [facility], [address] | | | | | [address] [place] | | | | | | [address] | | | | + + + + + + + + | Specimen | + + | | + + + + + + + | Performing | Address | City/State/Zipcode | Phone Number | | Organization | | | | + + + + + | [facility] | [address] | [place] [address] | [phone] | + + + + + Culture, Tissue, Smear, with Anaerobes (10/24/2018 16:41 PDT) + + + + + + | Component | Value | Ref Range | Performed | Pathologist | | | | | At | Signature | + + + + + + | Gram Stain | NO CELLS OR ORGANISMS | | [facility] | | | Result | SEEN | | LABORATORY | | + + + + + + | RESULT | NO GROWTH 4 DAYS | | [facility] | | | | | | LABORATORY | | + + + + + + | RESULT | Testing performed at | | [facility] | | | | [facility], [address] | | LABORATORY | | | | [place], [place] | | | | | | [id number]: Testing | | | | | | performed at [facility], [address] | | | | | | [facility] [address], | | | | | | [place] [address] | | | | + + + + + + + + | Specimen | + + | Tissue | + + + + + + + | Performing | Address | City/State/Zipcode | Phone Number | | Organization | | | | + + + + + | [facility] | [address] | [place] [address] | [phone] | + + + + + Type [...] + + + | BB BAND | [id number] | | [facility] | | | | | | LABORATORY | | + + + + + + | BB BAND | Testing performed at | | [facility] | | | | [facility] | LABORATORY | | | | [address];[place] [address] | | | | + + + + + + + + | Specimen | + + | Blood | + + + + + + + | Performing | Address | City/State/Zipcode | Phone Number | | Organization | | | | + + + + + | [facility] | [address] | [place] [address] | [phone] | + + + + + POCT Test, Urine, Qual (10/24/2018 13:27 PDT) + + + + + + | Component | Value | Ref Range | Performed | Pathologist | | | | | At | Signature | + + + + + + | HCG, | NEGATIVEComment: Testing | NEG | [facility] | | | Quantitativ | performed at [facility];[address] | | LABORATORY | | | [address] | [address];[place] | | | | | | [address] | | | | + + + + + + + + | Specimen | + + | | + + + + + + + | Performing | Address | City/State/Zipcode | Phone Number | | Organization | | | | + + + + + | [facility] | [address] | [place] [address] | [phone] | + + + + + documented in this encounter Visit Diagnoses + + | Diagnosis | + + | 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 | + + | Pain in prosthetic joint, initial encounter (HCC) | + + | Mechanical complication of prosthetic knee implant, initial encounter (HCC) | + + | Shortness of breath | + + | Acute respiratory failure with hypoxia (HCC) Acute respiratory failure | + + | Morbid obesity (HCC) Morbid obesity | + + | Vitamin D deficiency Unspecified vitamin D deficiency | + + documented in this encounter Administered Medications + +--------+ + +------+------+ | Medication Order | MAR | Action | Dose | Rate | Site | | | Action | Date | | | | + +--------+ + +------+------+ | acetaminophen (TYLENOL) tablet | Given | 10/25/19 | 1,000 mg | | | | 1,000 mg 1,000 mg, Oral, ONCE, | | 19 14:33 | | | | | 10/24/18 at 1345, For 1 dose, | | PDT | | | | | Give one hour prior to incision, | | | | | | | Pre-op | | | | | | + +--------+ + +------+------+ +---+---+ | | | +---+---+ + +-------+ + +---+---+ | acetaminophen (TYLENOL) tablet | Given | 11/01/19 | 1,000 mg | | | | 1,000 mg 1,000 mg, Oral, EVERY 8 | | 19 6:00 | | | | | HOURS (3 times per day), First | | PDT | | | | | dose on Tue10/24/18 at 2200 | | | | | | + +-------+ + +---+---+ +-------+ + +---+---+ | Given | 10/31/19 | 1,000 mg | | | | | 19 23:39 | | | | | | PDT | | | | +-------+ + +---+---+ | Given | 10/31/19 | 1,000 mg | | | | | 19 6:16 | | | | | | PDT | | | | +-------+ + +---+---+ +---+---+ | | | +---+---+ + +-------+ +--------+---+---+ | acetaminophen (TYLENOL) tablet | Given | 11/01/19 | 650 mg | | | | 650 mg 650 mg, Oral, EVERY 6 | | 19 14:38 | | | | | HOURS PRN, Fever, Starting Tue | | PDT | | | | | 10/31/18 at 0815 | | | | | | + +-------+ +--------+---+---+ +---+---+ | | | +---+---+ + +-------+ +---------+---+---+ | albuterol 90 mcg/puff inhaler 2 | Given | 11/02/19 | 2 puffs | | | | puff 2 puff, Inhalation, RT | | 19 16:19 | | | | | EVERY 4 HOURS PRN, Shortness of | | PDT | | | | | Breath, Starting 10/25/18 at | | | | | | | 0414, Shake well. Use with | | | | | | | spacer., | | | | | | + +-------+ +---------+---+---+ +-------+ +---------+---+---+ | Given | 10/28/19 | 2 puffs | | | | | 19 5:28 | | | | | | PDT | | | | +-------+ +---------+---+---+ | Given | 10/26/19 | 2 puffs | | | | | 19 10:53 | | | | | | PDT | | | | +-------+ +---------+---+---+ +---+---+ | | | +---+---+ + +-------+ +-------+---+---+ | albuterol-ipratropium 2.5-0.5 | Given | 10/28/19 | 3 mLs | | | | mg/3 mL nebulizer solution 3 mL | | 19 21:22 | | | | | 3 mL, Nebulization, RT EVERY 4 | | PDT | | | | | HOURS PRN, Wheezing, Shortness of | | | | | | | Breath, Starting 10/27/18 at | | | | | | | 0605 | | | | | | + +-------+ +-------+---+---+ +-------+ +-------+---+---+ | Given | 10/28/19 | 3 mLs | | | | | 19 16:36 | | | | | | PDT | | | | +-------+ +-------+---+---+ | Given | 10/28/19 | 3 mLs | | | | | 19 10:14 | | | | | | PDT | | | | +-------+ +-------+---+---+ +---+---+ | | | +---+---+ + +-------+ +-------+---+---+ | albuterol-ipratropium 2.5-0.5 | Given | 11/10/19 | 3 mLs | | | | mg/3 mL nebulizer solution 3 mL | | 19 15:13 | | | | | 3 mL, Nebulization, EVERY 4 HOURS | | PDT | | | | | WHILE AWAKE, First dose on Sat | | | | | | | 10/28/18 at 1100 | | | | | | + +-------+ +-------+---+---+ +-------+ +-------+---+---+ | Given | 11/10/19 | 3 mLs | | | | | 19 10:46 | | | | | | PDT | | | | +-------+ +-------+---+---+ | Given | 11/10/19 | 3 mLs | | | | | 19 7:59 | | | | | | PDT | | | | +-------+ +-------+---+---+ +---+---+ | | | +---+---+ + +-------+ +--------+---+---+ | aspirin EC tablet 325 mg 325 | Given | 10/29/19 | 325 mg | | | | mg, Oral, DAILY, First dose on | | 19 10:04 | | | | | 10/25/18 at 0700, Do not cut | | PDT | | | | | or crush Give first dose within | | | | | | | 20 hours of surgery end time. | | | | | | | Nursing/Pharmacy to retime first | | | | | | | dose to 1900 for surgeries ending | | | | | | | between 2200 and 0900., | | | | | | | Post-op/Phase II | | | | | | + +-------+ +--------+---+---+ +-------+ +--------+---+---+ | Given | 10/28/19 | 325 mg | | | | | 19 9:15 | | | | | | PDT | | | | +-------+ +--------+---+---+ | Given | 10/27/19 | 325 mg | | | | | 19 10:47 | | | | | | PDT | | | | +-------+ +--------+---+---+ +---+---+ | | | +---+---+ + +-------+ +-------+---+---+ | bisacodyl (DULCOLAX) | Given | 11/06/19 | 10 mg | | | | suppository 10 mg 10 mg, Rectal, | | 19 18:13 | | | | | DAILY PRN, Constipation, | | PDT | | | | | Starting e 10/24/18 at 2120, If | | | | | | | all other bowel medications | | | | | | | ineffective x 24 hours or not | | | | | | | ordered, Post-op/Phase II | | | | | | + +-------+ +-------+---+---+ +---+---+ | | | +---+---+ + +-------+ + +---+---+ | calcium carbonate (TUMS) | Given | 10/28/19 | 1,000 mg | | | | chewable tablet 1,000 mg 1,000 | | 19 9:24 | | | | | mg, Oral, EVERY 2 HOURS PRN, | | PDT | | | | | Indigestion, Starting e 10/24/18 | | | | | | | at 2120, Post-op/Phase II | | | | | | + +-------+ + +---+---+ +-------+ + +---+---+ | Given | 10/27/19 | 1,000 mg | | | | | 19 23:24 | | | | | | PDT | | | | +-------+ + +---+---+ | Given | 10/27/19 | 500 mg | | | | | 19 21:16 | | | | | | PDT | | | | +-------+ + +---+---+ +---+---+ | | | +---+---+ + +-------+ + +---+---+ | calcium citrate-vitamin D | Given | 11/10/19 | 1 tablet | | | | (CITRACAL+D) 315 mg-200 units per | | 19 9:25 | | | | | tablet 1 tablet 1 tablet, Oral, | | PDT | | | | | 2 TIMES DAILY, First dose on Mon | | | | | | | 10/30/18 at 0930 | | | | | | + +-------+ + +---+---+ +-------+ + +---+---+ | Given | 11/09/19 | 1 tablet | | | | | 19 21:13 | | | | | | PDT | | | | +-------+ + +---+---+ | Given | 11/09/19 | 1 tablet | | | | | 19 9:45 | | | | | | PDT | | | | +-------+ + +---+---+ +---+---+ | | | +---+---+ + +---------+ +-----+-------+---+ | ceFAZolin in dextrose (ANCEF) | New Bag | 10/26/19 | 2 g | 200 | | | IVPB 2 g 2 g, Intravenous, | | 19 10:52 | | mL/hr | | | Administer over 30 Minutes, EVERY | | PDT | | | | | 8 HOURS INTERVAL, First dose on | | | | | | | 10/25/18 at 0100, For 2 doses, | | | | | | | Start 8 hours after previous | | | | | | | dose. Last dose to be given | | | | | | | within 24 hours of surgery end | | | | | | | time Keep in refrigerator., | | | | | | | Post-op/Phase II, Indications: | | | | | | | Surgical Prophylaxis | | | | | | + +---------+ +-----+-------+---+ +---------+ +-----+-------+---+ | New Bag | 10/26/19 | 2 g | 200 | | | | 19 1:30 | | mL/hr | | | | PDT | | | | +---------+ +-----+-------+---+ +---+---+ | | | +---+---+ + +-------+ +--------+---+---+ | celecoxib (CELEBREX) capsule | Given | 10/25/19 | 200 mg | | | | 200 mg 200 mg, Oral, ONCE, Tue | | 14:33 | | | | | 10/24/18 at 1345, For 1 dose, | | PDT | | | | | Pre-op | | | | | | + +-------+ +--------+---+---+ +---+---+ | | | +---+---+ + +-------+ +--------+---+---+ | celecoxib (CELEBREX) capsule | Given | 11/10/19 | 200 mg | | | | 200 mg 200 mg, Oral, 2 TIMES | | 19 9:25 | | | | | DAILY, First dose on Tue10/24/18 | | PDT | | | | | at 2145, If urine output is less | | | | | | | than 240ml/8 hours (30ml/hr) or | | | | | | | if signs of bleeding, contact MD | | | | | | | and hold., Post-op/Phase II | | | | | | + +-------+ +--------+---+---+ +-------+ +--------+---+---+ | Given | 11/09/19 | 200 mg | | | | | 19 21:13 | | | | | | PDT | | | | +-------+ +--------+---+---+ | Given | 11/09/19 | 200 mg | | | | | 19 9:45 | | | | | | PDT | | | | +-------+ +--------+---+---+ +---+---+ | | | +---+---+ + +-------+ +-------+---+---+ | citalopram (celeXA) tablet 40 | Given | 11/10/19 | 40 mg | | | | mg 40 mg, Oral, DAILY, First | | 19 9:25 | | | | | dose on Tue10/25/18 at 0900 | | PDT | | | | + +-------+ +-------+---+---+ +-------+ +-------+---+---+ | Given | 11/09/19 | 40 mg | | | | | 19 9:45 | | | | | | PDT | | | | +-------+ +-------+---+---+ | Given | 11/08/19 | 40 mg | | | | | 19 8:11 | | | | | | PDT | | | | +-------+ +-------+---+---+ +---+---+ | | | +---+---+ + +-------+ +--------+---+---+ | cloNIDine (CATAPRES) tablet 0.1 | Given | 10/28/19 | 0.1 mg | | | | mg 0.1 mg, Oral, 2 TIMES DAILY, | | 19 20:55 | | | | | First dose on Tue10/24/18 at | | PDT | | | | | 2145 | | | | | | + +-------+ +--------+---+---+ +-------+ +--------+---+---+ | Given | 10/28/19 | 0.1 mg | | | | | 19 9:15 | | | | | | PDT | | | | +-------+ +--------+---+---+ | Given | 10/27/19 | 0.1 mg | | | | | 19 21:10 | | | | | | PDT | | | | +-------+ +--------+---+---+ + +---+ | | | + +---+ | diphenhydrAMINE (BENADRYL) 12.5 | | | mg/5 mL liquid 25 mg 25 mg, | | | Oral, EVERY 4 HOURS PRN, Itching, | | | Starting 10/24/18 at 2120, | | | Oral route is preferred., | | | Post-op/Phase II | | + +---+ | | | + +---+ | diphenhydrAMINE (BENADRYL) | | | capsule 25 mg 25 mg, Oral, EVERY | | | 4 HOURS PRN, Itching, Starting | | | 10/24/18 at 2120, Oral route | | | is preferred., Post-op/Phase II | | + +---+ | | | + +---+ | diphenhydrAMINE (BENADRYL) | | | injection 12.5 mg 12.5 mg, | | | Intravenous, EVERY 4 HOURS PRN, | | | Itching, Starting Tue10/24/18 at | | | 2120, Oral route is preferred., | | | Post-op/Phase II | | + +---+ | | | + +---+ + +-------+ +--------+---+---+ | docusate sodium (COLACE) | Given | 11/01/19 | 100 mg | | | | capsule 100 mg 100 mg, Oral, 2 | | 19 8:45 | | | | | TIMES DAILY PRN, Constipation, | | PDT | | | | | Starting Tue10/24/18 at 2120, | | | | | | | First line agent for | | | | | | | constipation, Post-op/Phase II | | | | | | + +-------+ +--------+---+---+ +-------+ +--------+---+---+ | Given | 10/31/19 | 100 mg | | | | | 19 17:32 | | | | | | PDT | | | | +-------+ +--------+---+---+ | Given | 10/31/19 | 100 mg | | | | | 19 9:18 | | | | | | PDT | | | | +-------+ +--------+---+---+ +---+---+ | | | +---+---+ + +-------+ +---------+---+---+ | electrolyte-A (PLASMALYTE-A) | Given | 10/25/19 | 400 mLs | | | | infusion at 50 mL/hr, | | 19 16:54 | | | | | Intravenous, CONTINUOUS, Starting | | PDT | | | | | 10/24/18 at 1345, Pre-op | | | | | | + +-------+ +---------+---+---+ +---------+ +---+ +---+ | New Bag | 10/25/19 | | 50 mL/hr | | | | 19 14:10 | | | | | | PDT | | | | +---------+ +---+ +---+ +---+---+ | | | +---+---+ + +-------+ +-------+---+ + | enoxaparin (LOVENOX) 40 mg/0.4 | Given | 11/10/19 | 40 mg | | Abdomen- | | mL injection 40 mg 40 mg, | | 19 9:24 | | | LLQ | | Subcutaneous, EVERY 24 HOURS | | PDT | | | | | (Daily), First dose on Sat | | | | | | | 10/28/18 at 1000, If okay with | | | | | | | orthopedic surgery, | | | | | | + +-------+ +-------+---+ + +-------+ +-------+---+ + | Given | 11/09/19 | 40 mg | | Abdomen- | | | 19 9:46 | | | RLQ | | | PDT | | | | +-------+ +-------+---+ + | Given | 11/08/19 | 40 mg | | Abdomen- | | | 19 8:11 | | | LUQ | | | PDT | | | | +-------+ +-------+---+ + +---+---+ | | | +---+---+ + +-------+ +--------+---+---+ | fentaNYL (PF) injection 25-50 | Given | 10/25/19 | 50 mcg | | | | mcg 25-50 mcg, Intravenous, | | 19 20:35 | | | | | EVERY 5 MIN PRN, Pain, Initial | | PDT | | | | | postop medication for URGENT PAIN | | | | | | | OR ESCALATING PAIN, Starting Tue | | | | | | | 10/24/18 at 1814, For 4 doses, | | | | | | | First dose must be lowest dose. | | | | | | | Use Pasero Sedation Scale. | | | | | | | [Opioid tolerant = One week or | | | | | | | longer, eiizsr-aks-ymtaz use of | | | | | | | at least the following DAILY | | | | | | | dose: 60mg oral morphine, 60mg | | | | | | | oral hydrocodone, 30mg oral | | | | | | | oxycodone, 8mg oral | | | | | | | hydromorphone, fentanyl patch | | | | | | | 25mcg/hr, or equivalent dose of | | | | | | | another opioid], Recovery/Phase I | | | | | | + +-------+ +--------+---+---+ +-------+ +--------+---+---+ | Given | 10/25/19 | 25 mcg | | | | | 19 20:13 | | | | | | PDT | | | | +-------+ +--------+---+---+ +---+---+ | | | +---+---+ + +-------+ +-------+---+---+ | furosemide (LASIX) injection 40 | Given | 10/28/19 | 40 mg | | | | mg 40 mg, Intravenous, ONCE, | | 19 20:50 | | | | | 10/27/18 at 1915, For 1 dose | | PDT | | | | + +-------+ +-------+---+---+ +---+---+ | | | +---+---+ + +-------+ +-------+---+---+ | furosemide (LASIX) injection 40 | Given | 10/29/19 | 40 mg | | | | mg 40 mg, Intravenous, DAILY, | | 19 8:05 | | | | | First dose on 10/28/18 at 0900 | | PDT | | | | + +-------+ +-------+---+---+ +---+---+ | | | +---+---+ + +-------+ +-------+---+---+ | furosemide (LASIX) injection 40 | Given | 11/06/19 | 40 mg | | | | mg 40 mg, Intravenous, 2 TIMES | | 19 21:49 | | | | | DAILY, First dose on 10/28/18 | | PDT | | | | | at 2100 | | | | | | + +-------+ +-------+---+---+ +-------+ +-------+---+---+ | Given | 11/06/19 | 40 mg | | | | | 19 9:46 | | | | | | PDT | | | | +-------+ +-------+---+---+ | Given | 11/05/19 | 40 mg | | | | | 19 21:11 | | | | | | PDT | | | | +-------+ +-------+---+---+ +---+---+ | | | +---+---+ + +-------+ +-------+---+---+ | furosemide (LASIX) tablet 40 mg | Given | 11/10/19 | 40 mg | | | | 40 mg, Oral, 2 TIMES DAILY 0800 | | 19 15:29 | | | | | & 1600, First dose on 9/2/19 | | PDT | | | | | at 0830 | | | | | | + +-------+ +-------+---+---+ +-------+ +-------+---+---+ | Given | 11/10/19 | 40 mg | | | | | 19 8:02 | | | | | | PDT | | | | +-------+ +-------+---+---+ | Given | 11/09/19 | 40 mg | | | | | 19 16:03 | | | | | | PDT | | | | +-------+ +-------+---+---+ +---+---+ | | | +---+---+ + +-------+ +--------+---+---+ | gabapentin (NEURONTIN) capsule | Given | 10/28/19 | 200 mg | | | | 200 mg 200 mg, Oral, 3 TIMES | | 19 20:55 | | | | | DAILY, First dose on Tue10/24/18 | | PDT | | | | | at 2145, For 3 days, Hold for | | | | | | | over-sedation, dizziness or | | | | | | | visual disturbance and contact | | | | | | | MD., Post-op/Phase II | | | | | | + +-------+ +--------+---+---+ +-------+ +--------+---+---+ | Given | 10/28/19 | 200 mg | | | | | 19 9:16 | | | | | | PDT | | | | +-------+ +--------+---+---+ | Given | 10/27/19 | 200 mg | | | | | 19 21:10 | | | | | | PDT | | | | +-------+ +--------+---+---+ + +---+ | | | + +---+ | haloperidol lactate (HALDOL) | | | injection 2 mg 2 mg, | | | Intramuscular, EVERY 6 HOURS PRN, | | | Agitation, Starting 11/03/18 | | | at 0843 | | + +---+ | | | + +---+ + +-------+ + +---+---+ | HYDROcodone-acetaminophen | Given | 11/03/19 | 1 tablet | | | | (NORCO) 5-325 mg per tablet 1 | | 19 10:35 | | | | | tablet 1 tablet, Oral, EVERY 6 | | PDT | | | | | HOURS PRN, Pain, Starting Tue | | | | | | | 10/31/18 at 0800 | | | | | | + +-------+ + +---+---+ +-------+ + +---+---+ | Given | 11/02/19 | 1 tablet | | | | | 19 16:19 | | | | | | PDT | | | | +-------+ + +---+---+ +---+---+ | | | +---+---+ + +-------+ +---------+---+---+ | HYDROcodone-acetaminophen | Given | 11/10/19 | 2 | | | | (NORCO) 5-325 mg per tablet 1-2 | | 19 11:48 | tablets | | | | tablet 1-2 tablet, Oral, EVERY 6 | | PDT | | | | | HOURS PRN, Pain, Starting Becka | | | | | | | 11/02/18 at 1408 | | | | | | + +-------+ +---------+---+---+ +-------+ + +---+---+ | Given | 11/09/19 | 1 tablet | | | | | 19 22:24 | | | | | | PDT | | | | +-------+ + +---+---+ | Given | 11/09/19 | 2 | | | | | 19 16:03 | tablets | | | | | PDT | | | | +-------+ + +---+---+ +---+---+ | | | +---+---+ + +-------+ +--------+---+---+ | HYDROmorphone (DILAUDID) | Given | 10/25/19 | 0.4 mg | | | | injection 0.2-0.6 mg 0.2-0.6 mg, | | 19 20:40 | | | | | Intravenous, EVERY 5 MIN PRN, | | PDT | | | | | Pain, Starting 10/24/18 at | | | | | | | 1814, First dose must be lowest | | | | | | | dose, can increase subsequent | | | | | | | doses by 0.2mg within dosing | | | | | | | range. If patient meets opioid | | | | | | | tolerant definition, can start | | | | | | | with 0.4mg dose. [Maximum total | | | | | | | PACU dose 2 mg] Use Pasero | | | | | | | Sedation Scale. [Opioid tolerant | | | | | | | = One week or longer, | | | | | | | [id number] use of at least | | | | | | | the following DAILY dose: 60mg | | | | | | | oral morphine, 60mg oral | | | | | | | hydrocodone, 30mg oral oxycodone, | | | | | | | 8mg oral hydromorphone, fentanyl | | | | | | | patch 25mcg/hr, or equivalent | | | | | | | dose of another opioid], | | | | | | | Recovery/Phase I | | | | | | + +-------+ +--------+---+---+ +-------+ +--------+---+---+ | Given | 10/25/19 | 0.4 mg | | | | | 19 20:21 | | | | | | PDT | | | | +-------+ +--------+---+---+ | Given | 10/25/19 | 0.2 mg | | | | | 19 20:14 | | | | | | PDT | | | | +-------+ +--------+---+---+ +---+---+ | | | +---+---+ + +-------+ +------+---+---+ | HYDROmorphone (DILAUDID) | Given | 11/08/19 | 1 mg | | | | injection 0.25-1 mg 0.25-1 mg, | | 19 3:20 | | | | | Intravenous, EVERY 2 HOURS PRN, | | PDT | | | | | Pain, Starting 10/24/18 at | | | | | | | 2120, If oral route not an | | | | | | | option. Slow IV push, not faster | | | | | | | than 0.3mg/minute. First dose | | | | | | | must be lowest dose, titrate to | | | | | | | effective dose by repeat of | | | | | | | lowest dose every 30 minutes prn | | | | | | | pain, may not exceed maximum dose | | | | | | | ordered per interval. Use Pasero | | | | | | | Sedation Scale., Post-op/Phase | | | | | | | II | | | | | | + +-------+ +------+---+---+ +-------+ +------+---+---+ | Given | 10/26/19 | 1 mg | | | | | 19 2:30 | | | | | | PDT | | | | +-------+ +------+---+---+ +---+---+ | | | +---+---+ + +-------+ +-------+---+---+ | hydrOXYzine hydrochloride | Given | 11/03/19 | 10 mg | | | | (ATARAX) tablet 10 mg 10 mg, | | 19 10:34 | | | | | Oral, 3 TIMES DAILY PRN, Anxiety, | | PDT | | | | | Starting Tue10/24/18 at 2120 | | | | | | + +-------+ +-------+---+---+ +-------+ +-------+---+---+ | Given | 11/01/19 | 10 mg | | | | | 19 20:50 | | | | | | PDT | | | | +-------+ +-------+---+---+ | Given | 10/31/19 | 10 mg | | | | | 19 23:39 | | | | | | PDT | | | | +-------+ +-------+---+---+ +---+---+ | | | +---+---+ + +-------+ +-------+---+---+ | hydrOXYzine hydrochloride | Given | 11/08/19 | 50 mg | | | | (ATARAX) tablet 50 mg 50 mg, | | 19 21:56 | | | | | Oral, 2 TIMES DAILY PRN, Anxiety, | | PDT | | | | | Anxiety, Starting Tue11/03/18 at | | | | | | | 1130 | | | | | | + +-------+ +-------+---+---+ +-------+ +-------+---+---+ | Given | 11/04/19 | 50 mg | | | | | 19 12:10 | | | | | | PDT | | | | +-------+ +-------+---+---+ +---+---+ | | | +---+---+ + +-------+ +---------+---+---+ | iohexol (OMNIPAQUE 350) 350 | Given | 10/28/19 | 100 mLs | | | | mg/mL injection 100 mL 100 mL, | | 19 18:21 | | | | | Intravenous, ONCE PRN, Other, | | PDT | | | | | Starting 10/27/18 at 1821, For | | | | | | | 1 dose, Cat Scanner | | | | | | + +-------+ +---------+---+---+ +---+---+ | | | +---+---+ + +---------+ +---+-------+---+ | lactated ringers (LR) infusion | New Bag | 10/26/19 | | 100 | | | at 100 mL/hr, Intravenous, | | 19 5:39 | | mL/hr | | | CONTINUOUS, Starting Tue10/24/18 | | PDT | | | | | at 2145, Post-op/Phase II | | | | | | + +---------+ +---+-------+---+ +---+---+ | | | +---+---+ + +-------+ +--------+---+---+ | lactulose liquid 30 mL 30 mL, | Given | 10/30/19 | 30 mLs | | | | Oral, DAILY PRN, Constipation, | | 19 14:12 | | | | | Starting Tue10/24/18 at 2120, If | | PDT | | | | | docusate, senna, and polyethylene | | | | | | | glycol ineffective x 24 hours or | | | | | | | not ordered, Post-op/Phase II | | | | | | + +-------+ +--------+---+---+ +---+---+ | | | +---+---+ + +-------+ +--------+---+---+ | lactulose liquid 30 mL 30 mL, | Given | 10/31/19 | 30 mLs | | | | Oral, 3 TIMES DAILY PRN, | | 19 9:21 | | | | | Constipation, Starting Mon | | PDT | | | | | 10/30/18 at 0815, If docusate, | | | | | | | senna, and polyethylene glycol | | | | | | | ineffective x 24 hours or not | | | | | | | ordered, Post-op/Phase II | | | | | | + +-------+ +--------+---+---+ +---+---+ | | | +---+---+ + +---------+ +--------+-------+---+ | levoFLOXacin in dextrose | New Bag | 11/09/19 | 750 mg | 100 | | | (LEVAQUIN) IVPB 750 mg 750 mg, | | 19 22:24 | | mL/hr | | | Intravenous, Administer over 90 | | PDT | | | | | Minutes, EVERY 24 HOURS INTERVAL, | | | | | | | First dose on [facility] 11/02/18 at | | | | | | | 2300, Indications: Community | | | | | | | Acquired Pneumonia | | | | | | + +---------+ +--------+-------+---+ +---------+ +--------+-------+---+ | New Bag | 11/08/19 | 750 mg | 100 | | | | 19 22:57 | | mL/hr | | | | PDT | | | | +---------+ +--------+-------+---+ | New Bag | 11/07/19 | 750 mg | 100 | | | | 19 23:19 | | mL/hr | | | | PDT | | | | +---------+ +--------+-------+---+ + +---+ | | | + +---+ | LORazepam (ATIVAN) 2 mg/mL | | | injection Starting 10/27/18 | | | at 1638, For 1 dose, [place], | | | [place] : gordon curiel, | | + +---+ | | | + +---+ + +-------+ +--------+---+---+ | LORazepam (ATIVAN) injection | Given | 10/28/19 | 0.5 mg | | | | 0.5 mg 0.5 mg, Intravenous, | | 19 16:55 | | | | | ONCE, Tue10/27/18 at 1700, For 1 | | PDT | | | | | dose | | | | | | + +-------+ +--------+---+---+ +---+---+ | | | +---+---+ + +-------+ +-------+---+---+ | methylPREDNISolone sodium | Given | 11/04/19 | 40 mg | | | | succinate (solu-MEDROL) 40 mg/mL | | 19 5:33 | | | | | injection 40 mg 40 mg, | | PDT | | | | | Intravenous, EVERY 8 HOURS (3 | | | | | | | times per day), First dose on Tue | | | | | | | 11/02/18 at 0600, Mix with 1 mL | | | | | | | provided diluent to make 40 | | | | | | | mg/mL., | | | | | | + +-------+ +-------+---+---+ +-------+ +-------+---+---+ | Given | 11/03/19 | 40 mg | | | | | 19 21:53 | | | | | | PDT | | | | +-------+ +-------+---+---+ | Given | 11/03/19 | 40 mg | | | | | 19 14:00 | | | | | | PDT | | | | +-------+ +-------+---+---+ +---+---+ | | | +---+---+ + +-------+ +-------+---+---+ | methylPREDNISolone sodium | Given | 11/05/19 | 40 mg | | | | succinate (solu-MEDROL) 40 mg/mL | | 19 21:11 | | | | | injection 40 mg 40 mg, | | PDT | | | | | Intravenous, EVERY 12 HOURS (2 | | | | | | | times per day), First dose on Tue | | | | | | | 11/03/18 at 2100, Mix with 1 mL | | | | | | | provided diluent to make 40 | | | | | | | mg/mL., | | | | | | + +-------+ +-------+---+---+ +-------+ +-------+---+---+ | Given | 11/05/19 | 40 mg | | | | | 19 8:49 | | | | | | PDT | | | | +-------+ +-------+---+---+ | Given | 11/04/19 | 40 mg | | | | | 19 22:15 | | | | | | PDT | | | | +-------+ +-------+---+---+ +---+---+ | | | +---+---+ + +-------+ +-------+---+---+ | methylPREDNISolone sodium | Given | 11/02/19 | 80 mg | | | | succinate (solu-MEDROL) 62.5 | | 19 13:43 | | | | | mg/mL injection 80 mg 80 mg, | | PDT | | | | | Intravenous, EVERY 8 HOURS (3 | | | | | | | times per day), First dose on Tue | | | | | | | 10/31/18 at 2200, Mix with 2 mL | | | | | | | provided diluent to make 62.5 | | | | | | | mg/mL., | | | | | | + +-------+ +-------+---+---+ +-------+ +-------+---+---+ | Given | 11/02/19 | 80 mg | | | | | 19 6:27 | | | | | | PDT | | | | +-------+ +-------+---+---+ | Given | 11/01/19 | 80 mg | | | | | 19 22:17 | | | | | | PDT | | | | +-------+ +-------+---+---+ +---+---+ | | | +---+---+ + +-------+ +-------+---+---+ | methylPREDNISolone sodium | Given | 11/02/19 | 80 mg | | | | succinate (solu-MEDROL) 62.5 | | 19 22:09 | | | | | mg/mL injection 80 mg 80 mg, | | PDT | | | | | Intravenous, EVERY 8 HOURS (3 | | | | | | | times per day), First dose on Tue | | | | | | | 11/01/18 at 2200, For 1 dose, Mix | | | | | | | with 2 mL provided diluent to | | | | | | | make 62.5 mg/mL., | | | | | | + +-------+ +-------+---+---+ +---+---+ | | | +---+---+ + +-------+ +---------+---+---+ | mineral oil enema 1 enema 1 | Given | 11/06/19 | 1 enema | | | | enema, Rectal, ONCE, 11/05/18 | | 19 17:27 | | | | | at 1545, For 1 dose | | PDT | | | | + +-------+ +---------+---+---+ +---+---+ | | | +---+---+ + +-------+ +-------+---+---+ | morphine (MS CONTIN) ER tablet | Given | 11/10/19 | 15 mg | | | | 15 mg 15 mg, Oral, EVERY 12 | | 19 9:25 | | | | | HOURS (2 times per day), First | | PDT | | | | | dose on Tue10/26/18 at 2100, Do | | | | | | | not cut or crush., | | | | | | + +-------+ +-------+---+---+ +-------+ +-------+---+---+ | Given | 11/09/19 | 15 mg | | | | | 19 21:14 | | | | | | PDT | | | | +-------+ +-------+---+---+ | Given | 11/09/19 | 15 mg | | | | | 19 9:45 | | | | | | PDT | | | | +-------+ +-------+---+---+ +---+---+ | | | +---+---+ + +---------+ +---------+---+ + | nicotine (NICODERM) 7 mg/24 hr | Patch | 11/04/19 | 1 patch | | Arm-Left | | 1 patch 1 patch, Transdermal, | Applied | 19 10:00 | | | Upper | | DAILY, First dose on Tue10/25/18 | | PDT | | | | | at 0900 | | | | | | + +---------+ +---------+---+ + + + +---------+---+ + | Patch Applied | 10/29/19 | 1 patch | | Arm-Left | | | 19 8:05 | | | Upper | | | PDT | | | | + + +---------+---+ + | Patch Applied | 10/28/19 | 1 patch | | Arm-Righ | | | 19 9:19 | | | t Upper | | | PDT | | | | + + +---------+---+ + +---+---+ | | | +---+---+ + +-------+ +------+---+---+ | OLANZapine (zyPREXA) tablet 5 | Given | 11/10/19 | 5 mg | | | | mg 5 mg, Oral, 2 TIMES DAILY, | | 19 9:25 | | | | | First dose on Tue11/03/18 at 1200 | | PDT | | | | + +-------+ +------+---+---+ +-------+ +------+---+---+ | Given | 11/09/19 | 5 mg | | | | | 19 21:13 | | | | | | PDT | | | | +-------+ +------+---+---+ | Given | 11/09/19 | 5 mg | | | | | 19 9:46 | | | | | | PDT | | | | +-------+ +------+---+---+ +---+---+ | | | +---+---+ + +-------+ +-------+---+---+ | oxyCODONE (oxyCONTIN) ER | Given | 10/25/19 | 10 mg | | | | abuse-deterrent tablet 10 mg 10 | | 19 15:02 | | | | | mg, Oral, ONCE, 10/24/18 at | | PDT | | | | | 1500, For 1 dose, Do not cut or | | | | | | | crush., Pre-op | | | | | | + +-------+ +-------+---+---+ +---+---+ | | | +---+---+ + +-------+ +------+---+---+ | oxyCODONE (ROXICODONE) tablet | Given | 11/01/19 | 5 mg | | | | 5-20 mg 5-20 mg, Oral, EVERY 3 | | 19 6:00 | | | | | HOURS PRN, Pain, Starting Tue | | PDT | | | | | 10/24/18 at 2016, First dose must | | | | | | | be the lowest dose, can titrate | | | | | | | to effective dose by repeat of | | | | | | | lowest dose every 60 minutes prn | | | | | | | pain, may not exceed maximum dose | | | | | | | ordered per interval. Use Pasero | | | | | | | Sedation Scale., Post-op/Phase | | | | | | | II | | | | | | + +-------+ +------+---+---+ +-------+ +------+---+---+ | Given | 10/30/19 | 5 mg | | | | | 19 1:32 | | | | | | PDT | | | | +-------+ +------+---+---+ | Given | 10/29/19 | 5 mg | | | | | 19 18:10 | | | | | | PDT | | | | +-------+ +------+---+---+ +---+---+ | | | +---+---+ + +-------+ +-------+---+---+ | pantoprazole (PROTONIX) DR | Given | 10/28/19 | 40 mg | | | | tablet 40 mg 40 mg, Oral, DAILY | | 19 6:25 | | | | | BEFORE BREAKFAST, First dose on | | PDT | | | | | 10/25/18 at 0630, Do not cut | | | | | | | or crush., Indication: NSAID, | | | | | | | high-dose, Post-op/Phase II | | | | | | + +-------+ +-------+---+---+ +-------+ +-------+---+---+ | Given | 10/27/19 | 40 mg | | | | | 19 5:37 | | | | | | PDT | | | | +-------+ +-------+---+---+ | Given | 10/26/19 | 40 mg | | | | | 19 5:33 | | | | | | PDT | | | | +-------+ +-------+---+---+ +---+---+ | | | +---+---+ + +-------+ +-------+---+---+ | pantoprazole (PROTONIX) DR | Given | 11/10/19 | 40 mg | | | | tablet 40 mg 40 mg, Oral, 2 | | 19 15:30 | | | | | TIMES DAILY BEFORE MEALS, First | | PDT | | | | | dose on Tue10/27/18 at 1630, Do | | | | | | | not cut or crush., Indication: | | | | | | | GERD | | | | | | + +-------+ +-------+---+---+ +-------+ +-------+---+---+ | Given | 11/10/19 | 40 mg | | | | | 19 8:01 | | | | | | PDT | | | | +-------+ +-------+---+---+ | Given | 11/09/19 | 40 mg | | | | | 19 16:03 | | | | | | PDT | | | | +-------+ +-------+---+---+ +---+---+ | | | +---+---+ + +-------+ + +---+---+ | phenol (CHLORASEPTIC) spray 1-2 | Given | 10/28/19 | 2 sprays | | | | spray 1-2 spray, Mouth/Throat, | | 19 6:28 | | | | | EVERY 3 HOURS PRN, Sore Throat, | | PDT | | | | | Starting 10/24/18 at 2120, To | | | | | | | back of throat, Post-op/Phase II | | | | | | + +-------+ + +---+---+ +---+---+ | | | +---+---+ + +---------+ +---------+-------+---+ | piperacillin-tazobactam (ZOSYN) | New Bag | 10/29/19 | 3.375 g | 100 | | | IVPB 3.375 g 3.375 g, | | 19 10:06 | | mL/hr | | | Intravenous, Administer over 0.5 | | PDT | | | | | Hours, ONCE, 10/28/18 at 1000, | | | | | | | For 1 dose, Extended-Infusion | | | | | | | Zosyn Protocol: infuse bolus over | | | | | | | 30 minutes, followed in 4 hours | | | | | | | by maintenance dosing. Keep in | | | | | | | refrigerator., Indications: | | | | | | | Aspiration Pneumonia | | | | | | + +---------+ +---------+-------+---+ +---+---+ | | | +---+---+ + +---------+ +---------+-------+---+ | piperacillin-tazobactam (ZOSYN) | New Bag | 11/03/19 | 3.375 g | 12.5 | | | IVPB 3.375 g 3.375 g, | | 19 15:00 | | mL/hr | | | Intravenous, Administer over 4 | | PDT | | | | | Hours, EVERY 8 HOURS INTERVAL, | | | | | | | First dose on 10/28/18 at | | | | | | | 1430, Extended-Infusion Zosyn | | | | | | | Protocol: infuse over 4 hours | | | | | | | when maintenance dose has a | | | | | | | frequency of Q8H (or Q12H for | | | | | | | renal dose adjustment). Keep in | | | | | | | refrigerator., Indications: | | | | | | | Aspiration Pneumonia | | | | | | + +---------+ +---------+-------+---+ +---------+ +---------+-------+---+ | New Bag | 11/03/19 | 3.375 g | 12.5 | | | | 19 6:15 | | mL/hr | | | | PDT | | | | +---------+ +---------+-------+---+ | New Bag | 11/02/19 | 3.375 g | 12.5 | | | | 19 22:10 | | mL/hr | | | | PDT | | | | +---------+ +---------+-------+---+ +---+---+ | | | +---+---+ + +-------+ +------+---+---+ | polyethylene glycol (MIRALAX) | Given | 11/05/19 | 17 g | | | | powder 17 g 17 g, Oral, DAILY | | 19 15:19 | | | | | PRN, Constipation, Starting Tue | | PDT | | | | | 10/24/18 at 2120, If docusate and | | | | | | | senna ineffective or not ordered, | | | | | | | Post-op/Phase II | | | | | | + +-------+ +------+---+---+ +-------+ +------+---+---+ | Given | 11/04/19 | 17 g | | | | | 19 10:26 | | | | | | PDT | | | | +-------+ +------+---+---+ | Given | 11/01/19 | 17 g | | | | | 19 8:45 | | | | | | PDT | | | | +-------+ +------+---+---+ +---+---+ | | | +---+---+ + +-------+ +--------+---+---+ | potassium chloride (KLOR-CON) | Given | 11/09/19 | 20 mEq | | | | ER tablet 20-40 mEq 20-40 mEq, | | 19 6:35 | | | | | Oral, DAILY PRN, Per protocol, | | PDT | | | | | Starting Tu10/31/18 at 0829, | | | | | | | NON-ICU Protocol Replace | | | | | | | potassium once per day based on | | | | | | | morning potassium level. Use | | | | | | | scale below to determine dose. If | | | | | | | further replacement is required | | | | | | | after this morning dose of | | | | | | | potassium, notify provider | | | | | | | Protocol NOT recommended if Scr > | | | | | | | 1.8, dialysis patients or CrCl < | | | | | | | 50 mL/min [K+] =3.6 - 4 mEql/L | | | | | | | Give 20 mEq KCl PO x 1 dose | | | | | | | [K+] 3.0 - 3.5 mEql/L Give 40 | | | | | | | mEq KCl PO x 1 dose [K+] < 3.0 | | | | | | | mEq/L Notify provider * | | | | | | | Recheck K+ 4 hours after | | | | | | | replacement is done. Give either | | | | | | | tablet, liquid, or IV but never | | | | | | | more than one form. If repeat K | | | | | | | is still < 3.5, contact provider | | | | | | | for further instruction. May take | | | | | | | with food to decrease GI upset., | | | | | | | | | | | | | + +-------+ +--------+---+---+ +-------+ +--------+---+---+ | Given | 11/07/19 | 20 mEq | | | | | 19 9:07 | | | | | | PDT | | | | +-------+ +--------+---+---+ | Given | 11/03/19 | 20 mEq | | | | | 19 8:51 | | | | | | PDT | | | | +-------+ +--------+---+---+ + +---+ | | | + +---+ | potassium chloride (KLOR-CON) | | | packet 20-40 mEq 20-40 mEq, Per | | | G Tube, DAILY PRN, Per Protocol, | | | Starting Tue10/31/18 at 0829, | | | NON-ICU Protocol Replace | | | potassium once per day based on | | | morning potassium level. Use | | | scale below to determine dose. If | | | further replacement is required | | | after this morning dose of | | | potassium, notify provider | | | Protocol NOT recommended if Scr > | | | 1.8, dialysis patients or CrCl < | | | 50 mL/min [K+] =3.6 - 4 mEql/L | | | Give 20 mEq KCl PO x 1 dose | | | [K+] 3.0 - 3.5 mEql/L Give 40 | | | mEq KCl PO x 1 dose [K+] < 3.0 | | | mEq/L Notify provider * | | | Recheck K+ 4 hours after | | | replacement is done. Give either | | | tablet, liquid, or IV but never | | | more than one form. If repeat K | | | is still < 3.5, contact provider | | | for further instruction., | | + +---+ | | | + +---+ | potassium chloride 20 mEq in | | | sodium chloride 0.9% 250 mL IVPB | | | 20 mEq, Intravenous, Administer | | | over 2 Hours, DAILY PRN, Per | | | protocol, Starting Tue10/31/18 at | | | 0829, NON-ICU Protocol Replace | | | potassium once per day based on | | | morning potassium level. Use | | | scale below to determine dose. If | | | further replacement is required | | | after this morning dose of | | | potassium, notify provider | | | Protocol NOT recommended if Scr > | | | 1.8, dialysis patients or CrCl < | | | 50 mL/min [K+] =3.6 - 4 mEql/L | | | Give 20 mEq KCl IV X 1 dose | | | * Recheck K+ 2 hours after | | | replacement is done. Give either | | | tablet, liquid, or IV but never | | | more than one form. If repeat K | | | is still < 3.5, contact provider | | | for further instruction., | | + +---+ | | | + +---+ | potassium chloride 40 mEq in | | | sodium chloride 0.9% 500 mL IVPB | | | 40 mEq, Intravenous, Administer | | | over 4 Hours, DAILY PRN, Per | | | protocol, Starting Tue10/31/18 at | | | 0829, NON-ICU Protocol Replace | | | potassium once per day based on | | | morning potassium level. Use | | | scale below to determine dose. If | | | further replacement is required | | | after this morning dose of | | | potassium, notify provider | | | Protocol NOT recommended if Scr > | | | 1.8, dialysis patients or CrCl < | | | 50 mL/min [K+] 3.0 - 3.5 mEql/L | | | Give 40 mEq KCl IV X 1 dose | | | * Recheck K+ 2 hours after | | | replacement is done. Give either | | | tablet, liquid, or IV but never | | | more than one form. If repeat K | | | is still < 3.5, contact provider | | | for further instruction., | | + +---+ | | | + +---+ + +-------+ +---+---+---+ | povidone-iodine 5 % external | Given | 10/25/19 | | | | | solution Topical, PRN, Other, | | 19 14:40 | | | | | pre-op, Starting 10/24/18 at | | PDT | | | | | 1320, For 1 dose, Pre-op | | | | | | + +-------+ +---+---+---+ +---+---+ | | | +---+---+ + +-------+ +-------+---+---+ | predniSONE (DELTASONE) tablet | Given | 11/10/19 | 40 mg | | | | 40 mg 40 mg, Oral, DAILY, First | | 19 9:25 | | | | | dose on 11/05/18 at 1000 | | PDT | | | | + +-------+ +-------+---+---+ +-------+ +-------+---+---+ | Given | 11/09/19 | 40 mg | | | | | 19 9:46 | | | | | | PDT | | | | +-------+ +-------+---+---+ | Given | 11/08/19 | 40 mg | | | | | 19 8:11 | | | | | | PDT | | | | +-------+ +-------+---+---+ +---+---+ | | | +---+---+ + +-------+ +--------+---+---+ | senna (SENOKOT) tablet 8.6 mg | Given | 10/31/19 | 8.6 mg | | | | 8.6 mg, Oral, 2 TIMES DAILY PRN, | | 19 6:15 | | | | | Constipation, Starting Tue | | PDT | | | | | 10/24/18 at 2120, If docusate | | | | | | | ineffective or not ordered, | | | | | | | Post-op/Phase II | | | | | | + +-------+ +--------+---+---+ +-------+ +--------+---+---+ | Given | 10/30/19 | 8.6 mg | | | | | 19 14:12 | | | | | | PDT | | | | +-------+ +--------+---+---+ | Given | 10/27/19 | 8.6 mg | | | | | 19 13:16 | | | | | | PDT | | | | +-------+ +--------+---+---+ +---+---+ | | | +---+---+ + +-------+ +--------+---+---+ | senna (SENOKOT) tablet 8.6 mg | Given | 11/09/19 | 8.6 mg | | | | 8.6 mg, Oral, NIGHTLY, First dose | | 19 21:13 | | | | | on 10/30/18 at 2100, If | | PDT | | | | | docusate ineffective or not | | | | | | | ordered, Post-op/Phase II | | | | | | + +-------+ +--------+---+---+ +-------+ +--------+---+---+ | Given | 11/08/19 | 8.6 mg | | | | | 19 20:10 | | | | | | PDT | | | | +-------+ +--------+---+---+ | Given | 11/07/19 | 8.6 mg | | | | | 19 21:03 | | | | | | PDT | | | | +-------+ +--------+---+---+ +---+---+ | | | +---+---+ + +-------+ +-------+---+---+ | topiramate (TOPAMAX) tablet 25 | Given | 11/10/19 | 25 mg | | | | mg 25 mg, Oral, 2 TIMES DAILY, | | 19 9:25 | | | | | First dose on Tue11/03/18 at | | PDT | | | | | 1200, Reproductive Risk: Use | | | | | | | appropriate handling | | | | | | | precautions., | | | | | | + +-------+ +-------+---+---+ +-------+ +-------+---+---+ | Given | 11/09/19 | 25 mg | | | | | 19 21:14 | | | | | | PDT | | | | +-------+ +-------+---+---+ | Given | 11/09/19 | 25 mg | | | | | 19 9:45 | | | | | | PDT | | | | +-------+ +-------+---+---+ +---+---+ | | | +---+---+ + +-------+ +-------+---+---+ | traMADol (ULTRAM) tablet 50 mg | Given | 10/25/19 | 50 mg | | | | 50 mg, Oral, ONCE, 10/24/18 | | 19 14:34 | | | | | at 1500, For 1 dose, In preop, | | PDT | | | | | Pre-op | | | | | | + +-------+ +-------+---+---+ +---+---+ | | | +---+---+ + +-------+ +-------+---+---+ | traMADol (ULTRAM) tablet 50 mg | Given | 11/08/19 | 50 mg | | | | 50 mg, Oral, EVERY 6 HOURS PRN, | | 19 21:56 | | | | | Pain, Starting 10/28/18 at | | PDT | | | | | 1751 | | | | | | + +-------+ +-------+---+---+ +-------+ +-------+---+---+ | Given | 11/05/19 | 50 mg | | | | | 19 19:34 | | | | | | PDT | | | | +-------+ +-------+---+---+ | Given | 10/31/19 | 50 mg | | | | | 19 3:13 | | | | | | PDT | | | | +-------+ +-------+---+---+ +---+---+ | | | +---+---+ + +---------+ + +--------+---+ | vancomycin in NS (VANCOCIN) | New Bag | 10/25/19 | 1,500 mg | 166.7 | | | IVPB 1,500 mg 1,500 mg, | | 19 14:29 | | mL/hr | | | Intravenous, Administer over 90 | | PDT | | | | | Minutes, ONCE, 10/24/18 at | | | | | | | 1430, For 1 dose, Keep in | | | | | | | refrigerator., Pre-op, | | | | | | | Indications: Surgical Prophylaxis | | | | | | + +---------+ + +--------+---+ +---+---+ | | | +---+---+ documented in this encounter
--- OUTSIDE RECORDS SUMMARY | ~2018-12-31 | XMS | Encounter Summary ---
Demographics + + + | Address | [address] | | | [place] [address] | + + + | Home Phone | | + + + | Preferred Language | Unknown | + + + | Marital Status | | + + + | Jewish Affiliation | Unknown | + + + | Race | Unknown | + + + | Ethnic Group | Unknown | + + + Author + + + | Author | [facility] | | | and [place] | + + + | Organization | [facility] | | | and [place] | + + + | Address | Unknown | + + + | Phone | Unavailable | + + + Support + + + + + | Name | Relationship | Address | Phone | + + + + + | Fabienne Juarez | ECON | [place] | | | | | [address] | | + + + + + Care Team Providers + +------+ + | Care Gas Flow Regulator Name | Role | Phone | + [...] [address] | | | | | [address] | [place] [address] | | | | | [phone] | [phone] | | | | | | | [...]
--- OUTSIDE RECORDS SUMMARY | ~2018-12-31 | XMS | Encounter Summary ---
Demographics + + + | Address | [address] | | | [place] [address] | + + + | Home Phone | | + + + | Preferred Language | Unknown | + + + | Marital Status | | + + + | Latter Day Affiliation | Unknown | + + + | Race | Unknown | + + + | Ethnic Group | Unknown | + + + Author + + + | Author | [facility] | | | and [place] | + + + | Organization | [facility] | | | and [place] | + + + | Address | Unknown | + + + | Phone | Unavailable | + + + Support + + + + + | Name | Relationship | Address | Phone | + + + + + | Fabienne Juarez | ECON | [place] | | | | | [address] | | + + + + + Care Team Providers + +------+ + | Care Drywall Sander Name | Role | Phone | + +------+ + | Celestine Watters MD | PCP | | + +------+ + Encounter Details +--------+ + + + + | Date | Type | Department | Care Team | Description | +--------+ + + + + | 11/16/ | Telephone | [facility] | Miah Monique | | | 2018 | | MD Mayur CHÁVEZ | | | | | [address] | [address] | | | | | [address] | [place] [address] | | | | | [phone] | [phone] | | | | | | | [...]
--- OUTSIDE RECORDS SUMMARY | ~2018-12-31 | XMS | Encounter Summary ---
Demographics + + + | Address | [address] | | | [place] [address] | + + + | Home Phone | | + + + | Preferred Language | Unknown | + + + | Marital Status | | + + + | Pentecostal Affiliation | Unknown | + + + | Race | Unknown | + + + | Ethnic Group | Unknown | + + + Author + + + | Author | [facility] (Historical as of | | | 10-21-18) | + + + | Organization | [facility] (Historical as of | | | 10-21-18) | + + + | Address | Unknown | + + + | Phone | Unavailable | + + + Support + + + + + | Name | Relationship | Address | Phone | + + + + + | Fabienne Juarez | ECON | [place] | | | | | [address] | | + + + + + Care Team Providers + +------+ + | Care Aircraft General Repair Mechanic Name | Role | Phone | + +------+ + | None, Per Pt | PCP | 000-0000 | + +------+ + Encounter Details +--------+ + + + + | Date | Type | Department | Care Team | Description | +--------+ + + + + | 10/16/ | Telephone | [facility] | Miah Monique | | | 2018 | | [facility] | MD Fab [address] | | | | | [facility]IC[facility] [place] | [place] | | | | | [address] | [facility] | | | | | [place] | [address] | | | | | [address] | [phone] | | | | | [phone] | | | +--------+ + + + [...]
--- OUTSIDE RECORDS SUMMARY | ~2018-12-31 | XMS | Encounter Summary ---
Demographics + + + | Address | [address] | | | [place] [address] | + + + | Home Phone | | + + + | Preferred Language | Unknown | + + + | Marital Status | | + + + | Jain Affiliation | Unknown | + + + | Race | Unknown | + + + | Ethnic Group | Unknown | + + + Author + + + | Author | [facility] | | | and [place] | + + + | Organization | [facility] | | | and [place] | + + + | Address | Unknown | + + + | Phone | Unavailable | + + + Support + + + + + | Name | Relationship | Address | Phone | + + + + + | Fabienne Juarez | ECON | [place] | | | | | [address] | | + + + + + Care Team Providers + +------+ + | Care Agency Recruiter Name | Role | Phone | + [...] | | | | [place] | [phone] | | | | | [address] | | | | | | [phone] | | | +--------+ + + + [...]
--- OUTSIDE RECORDS SUMMARY | ~2018-12-31 | XMS | Encounter Summary ---
Demographics + + + | Address | [address] | | | [place] [address] | + + + | Home Phone | | + + + | Preferred Language | Unknown | + + + | Marital Status | | + + + | Buddhist Affiliation | Unknown | + + + | Race | Unknown | + + + | Ethnic Group | Unknown | + + + Author + + + | Author | [facility] (Historical as of | | | 10-21-18) | + + + | Organization | [facility] (Historical as of | | | 10-21-18) | + + + | Address | Unknown | + + + | Phone | Unavailable | + + + Support + + + + + | Name | Relationship | Address | Phone | + + + + + | Fabienne Juarez | ECON | [place] | | | | | [address] | | + + + + + Care Team Providers + +------+ + | Care Commercial Counsel Name | Role | Phone | + [...] | | prosthetic | PA-C [address] | [place] | | | | | joint, | [address] | Physical | | | | | initial | KENNETH A | [address] | | | | | encounter | [place], [place] | [address] | | | | | ([facility]) | [address] | [place], | | | | | | Phone: | [place] [address] | | | | | | [phone] | Phone: | | | | | | Fax: | [phone] | | | | | | [phone] | Fax: | | | | | | | [phone] | + + + + + + [...] | Surgery | revision | Referred | [place] [address] | | | | | left TKA @ | Phone: | [address] | | | | | [facility] | [phone] | [place] | | | | | 10/19/2018 | Fax: | [phone] | | | | | Procedures | [phone] | Phone: | | | | | [facility]TH[facility] | | [phone] | | | | | | | Fax: | | | | | | | [phone] | + +--------+ + + + + Encounter Details +--------+---------+ + + + | Date | Type | Department | Care Team | Description | +--------+---------+ + + + | 10/04/ | Office | [facility] | Emilio Moreno, | Pain in prosthetic | | 2019 | Visit | [facility] | PA-C [address] | joint, initial | | | | MEDIC[facility] [place] | [facility], | encounter (HCC) | | | | [address] | [place] [address] | (Primary Dx) | | | | [place] | [phone] | | | | | [address] | | | | | | [phone] | | | +--------+---------+ + + + [...] 1. Pain in prosthetic joint, initial encounter ([facility]) T84.84XA Ambulatory referral to Physic al Therapy, [...] 12 months?:NO Under the care of a machine heel seat laster?:No Diabetes Optimization?:N/A No results found for: HGBA1C, LABGLYC History of MRSA/MSSA infection?:No Metal sensitivity or allergy?:No Intolerance to certain specific opiate?:No DVT/PE Risk Stratification Personal history of DVT/PE?:No Cancer treatment in the last 5 years?:No Hormone replacement therapy?:No Tolerate aspirin?:YES Current Anticoagulation?:No Chemical prophylaxis plan:ASA Anticipated Discharge Plan Discharge to rehab facility, [facility] physical therapy [place] Return for 2 [...]
--- OUTSIDE RECORDS SUMMARY | ~2018-12-31 | XMS | Encounter Summary ---
Demographics + + + | Address | [address] | | | [place] [address] | + + + | Home Phone | | + + + | Preferred Language | Unknown | + + + | Marital Status | | + + + | Mormon Affiliation | Unknown | + + + | Race | Unknown | + + + | Ethnic Group | Unknown | + + + Author + + + | Author | [facility] (Historical as of | | | 10-21-18) | + + + | Organization | [facility] (Historical as of | | | 10-21-18) | + + + | Address | Unknown | + + + | Phone | Unavailable | + + + Support + + + + + | Name | Relationship | Address | Phone | + + + + + | Fabienne Juarez | ECON | [place] | | | | | [address] | | + + + + + Care Team Providers + +------+ + | Care Jewelry Internship Name | Role | Phone | + +------+ + | None, Per Pt | PCP | 000-0000 | + +------+ + Reason for Visit Auth/Cert +--------+--------+ + + + + | Status | Reason | Specialty | Diagnoses / | Referred By | Referred To | | | | | Procedures | Contact | Contact | +--------+--------+ + + + + | | | | Diagnoses | | | | | | | Mechanical | | | | | | | instability | | | | | | | of hip | | | | | | | prosthesis | | | | | | | ([facility]) | | | | | | | Procedures | | | | | | | HIP - TOTAL | | | | | | | REVISION | | | +--------+--------+ + + + + Encounter Details +--------+---------+ + + + | Date | Type | Department | Care Team | Description | +--------+---------+ + + + | 10/24/ | Surgery | [facility] | Miah Monique | HIP - TOTAL REVISION | | 2019 | | [facility] | MD Fab [address] | | | | | Operating Room [address] | [place] | | | | | [address] | [place], [place] | | | | | [place] [address] | [address] | | | | | [phone] | [phone] | | | | | | | [...] Treatment Not on fileas of this encounter Procedures + +--------+ + + + | Procedure Name | Priori | Date/Time | Associated Diagnosis | Comments | | | ty | | | | + +--------+ + + + | BODY FLUID CRYSTAL | Routin | 10/18/2018 | | Results for this | | | e | 3:19 PM | | procedure are in the | | | | PDT | | results section. | + +--------+ + + + | FLUID CULT W/GRAM | Routin | 10/18/2018 | | Results for this | | STAIN | e | 3:19 PM | | procedure are in the | | | | PDT | | results section. | + +--------+ + + + | BODY FLUID CELL | Routin | 10/18/2018 | | Results for this | | COUNT | e | 3:19 PM | | procedure are in the | | | | PDT | | results section. | + +--------+ + + + in this encounter Results FLUID CULT W/GRAM STAIN (10/18/2018 3:19 PM) + + + + + | Component | Value | Ref Range | Performed At | + + + + + | Specimen Description | SYNOVIAL FLUID | | [facility] | | | | | LABORAT[facility] | + + + + + | GRAM STAIN | NO CELLS OR ORGANISMS | | [facility] | | | SEEN | | LABORATORY | + + + + + | CULTURE | NO GROWTH 4 DAYS | | [facility] | | | | | LABORAT[facility] | + + + + + + + | Specimen | + + | Synovial Fluid | + + + + + + + | Performing | Address | City/State/Zipcode | Phone Number | | Organization | | | | + + + + + | [facility] | [address] | [place] [address] | [phone] | | LABORATORY | [address] | | | + + + + + Body Fluid Cell Count (10/18/2018 3:19 PM) + + + + + | Component | Value | Ref Range | Performed At | + + + + + | FLUID TYPE | SYNOVIAL FLUID | | [facility] | + + + + + | COLOR | PINK | | [facility] | + + + + + | APPEARANCE | CLOUDY | | [facility] | + + + + + | RBC'S | 19,193 | /mm3 | [facility] | + + + + + | TOTAL NUCLEATED | 29 | /mm3 | [facility] | | CELLS | | | | + + + + + | NEUTROPHILS | 83 | % | [facility] | + + + + + | LYMPHOCYTES | 14 | % | [facility] | + + + + + | EOSINOPHILS | 3 | % | [facility] | + + + + + | CELLS COUNTED | 100Comment: Testing | | [facility] | | | performed at [facility] | | | | | [address];[place] | | | | | [address] | | | + + + + + + + + + + | Performing | Address | City/State/Zipcode | Phone Number | | Organization | | | | + + + + + | [facility] | [address] | [facility] [address] | | + + + + + Body fluid crystal (10/18/2018 3:19 PM) + + + + + | Component | Value | Ref Range | Performed At | + + + + + | FLUID CRYSTALS | NO CRYSTALS SEENComment: | | [facility] | | | Testing performed at | | | | | [facility];[address] | | | | | [place] [address] | | | + + + + + + + + + + | Performing | Address | City/State/Zipcode | Phone Number | | Organization | | | | + + + + + | [facility] | [address] | [place] [address] | | + + + + + in this encounter Visit Diagnoses + + | Diagnosis | + + | Pain in prosthetic joint, initial encounter (HCC) | + + | Mechanical instability of hip prosthesis (HCC) | + + Admitting Diagnoses + + | Diagnosis | + + | Mechanical instability of hip prosthesis (HCC) | + +"
--- OUTSIDE RECORDS SUMMARY | ~2018-12-31 | XMS | Encounter Summary ---
Demographics + + + | Address | [address] | | | [place] [address] | + + + | Home Phone | | + + + | Preferred Language | Unknown | + + + | Marital Status | | + + + | Synagogue Affiliation | Unknown | + + + | Race | Unknown | + + + | Ethnic Group | Unknown | + + + Author + + + | Author | [facility] (Historical as of | | | 10-21-18) | + + + | Organization | [facility] (Historical as of | | | 10-21-18) | + + + | Address | Unknown | + + + | Phone | Unavailable | + + + Support + + + + + | Name | Relationship | Address | Phone | + + + + + | Fabienne Juarez | ECON | [place] | | | | | [address] | | + + + + + Care Team Providers + +------+ + | Care Bench Worker Apprentice Name | Role | Phone | + +------+ + | None, Per Pt | PCP | [id number] | + +------+ + Encounter Details +--------+ + + + + | Date | Type | Department | Care Team | Description | +--------+ + + + + | 10/06/ | Hospital | [facility] | Miah Monique | | | 2018 | Encounter | [facility] | MD Fab [address] | | | | | Preadmission | [facility] | | | | | Services [address] | [place], [place] | | | | | Blvd [place], [place] | [address] | | | | | [address] | [phone] | | | | | | | [...] | Pulse | - | - | + + + + | Temperature [...] + + + + in this encounter Discharge Instructions Cee Laird RN - 10/06/2018Formatting of this note may be different from the original. Outpatient Prescriptions Marked as Taking for the 10/06/18 encounter (Hospital Encounter) wit h [facility] ROOM 3 Medication Sig INSTRUCTIONS citalopram (CELEXA) 40 MG tablet Take 40 mg by mouth daily. TAKE day of procedure, if n eeded cloNIDine (CATAPRES) 0.1 MG tablet Take 0.1 mg by mouth 2 (two) times daily. TAKE day o f procedure HYDROcodone-acetaminophen (NORCO) 5-325 MG per tablet Take 1 tablet by mouth every 12 ( twelve) hours as needed for Pain. TAKE day of procedure, if needed hydrOXYzine (ATARAX) 10 MG tablet Take 10 mg by mouth 3 (three) times daily as needed f or Anxiety. TAKE day of procedure, if needed topiramate (TOPAMAX) 25 MG capsule Take 25 mg by mouth 2 (two) times daily. TAKE day of procedure, if needed Total Hip Replacement Total hip replacement surgery almost always reduces joint pain. During this surgery, your elvia navarro hip joint is replaced with an artificial joint, called a prosthesis. Benefits of hip replacement Total hip replacement surgery almost always: Stops or greatly reduces hip pain. Even the pain from surgery should go away within week s. Increases leg function. Without hip pain, you ll be able to use your legs more. This w ill build up your muscles. Improves quality of life by allowing you to do daily tasks and low-impact activities in greater comfort. Provides years of easier movement. Most total hip replacements last for many years. Your surgical experience You will most likely arrive at the hospital on the morning of surgery. In many cases, pre-o p tests are done days or even weeks ahead of time. Follow all of your surgeon s instructio ns on preparing for surgery. When you arrive, you ll be given forms to fill out. You will also talk with the anesthesiologist, thehealthcare providerwho gives the anesthesia, if you haven t done so already. Preparing for surgery Follow any directions you are given for taking medicines or for not eating or drinking befo re surgery. You may need to stop certain medicines several days or weeks before the surgery. At the hospital your temperature, pulse, breathing, and blood pressure will be checked. An IV (intravenous) line will be started to provide fluids and medicines needed during surgery. The surgical procedure When the surgical team is ready, you ll be taken to the operating room. There you ll be given anesthesia. The anesthesia will help you sleep through surgery, or it will make you n umb from the waist down. Then an incision is made, giving the surgeon access to your hip tayler nt. The damaged ball is removed, and the socket is prepared to hold the prosthesis. After th e new joint is in place, the incision is closed with elsa or stitches. Preparing the bone The hip is a grow-xdn-ybtood joint. The ball is cut from the thighbone, and the surface of the old socket is smoothed. Then the new socket is put into the pelvis. The socket is usuall y press-fit and may be held in place with screws. A press-fit prosthesis has tiny pores on i ts surface that your bone will grow into. Cement or press-fit may be used to hold the ball-a nd-stem portion of the hip replacement. Joining the new parts The new hip stem is inserted into the upper portion of your thighbone. After the stem is se cure in the thighbone, the new ball and socket are joined. The stem of the prosthesis may be held with cement or press-fit. Your surgeon will choose the method that is best for you. In the recovery room After surgery you ll be sent to the recovery room, also called the PACU (postanesthesia c are unit). Your condition will be watched closely, and you ll be given pain medications. Y ou may have a catheter (small tube) in your bladder and a drain in your hip. To keep your ne w joint stable, a foam wedge or pillows may be placed between your legs. In some cases, a br jenae is used. Risks and complications As with any surgery, hip replacement has possible risks and complications. These include th e following: Reaction to the anesthesia Blood clots Infection Dislocation of the joint or loosening of the prosthesis Difference in leg length Fracture Wearing out the prosthetic Damage to nearby blood vessels, bones, or nerves Thigh pain Date Last Reviewed: 03/07/201719996536-2707 [employer]. [address] [place] [address]. All righ ts reserved. This information is not intended as a substitute for professional medical care. Always follow your healthcare professional's instructions. in this encounter Medications at Time of Discharge + + + +---------+ + + | Medication | Sig. | Disp. | Refills | Start | End Date | | | | | | Date | | + + + +---------+ + + | citalopram | Take 40 mg by mouth | | | | | | (CELEXA) 40 MG | daily. | | | | | | tablet | | | | | | + + + +---------+ + + | cloNIDine | Take 0.1 mg by mouth | | | | | | (CATAPRES) 0.1 MG | 2 (two) times | | | | | | tablet | daily. | | | | | + + + +---------+ + + | | Take 1 tablet by | 30 | 0 | // | | | HYDROcodone-acetamin | mouth every 12 | tablet | | 19 | | | ophen (NORCO) 5-325 | (twelve) hours as | | | | | | MG per tablet | needed for Pain. | | | | | + + + +---------+ + + | hydrOXYzine | Take 10 mg by mouth | | | | | | (ATARAX) 10 MG | 3 (three) times | | | | | | tablet | daily as needed for | | | | | | | Anxiety. | | | | | + + + +---------+ + + | topiramate | Take 25 mg by mouth | | | | | | (TOPAMAX) 25 MG | 2 (two) times daily. | | | | | | capsuleIndications: | | | | | | | for weight loss | | | | | | + + + +---------+ + + | UNABLE TO FIND | Disabled parking | 1 each | 0 | 10/05/19 | | | | placard | | | 19 | | + + + +---------+ + + | acetaminophen | Take 2 tablets by | 180 | 0 | 10/05/19 | | | (TYLENOL) 500 MG | mouth every 8 | tablet | | 19 | 9 | | tablet | (eight) hours for 30 | | | | | | | days. | | | | | + + + +---------+ + + | aspirin 325 MG | Take 1 tablet by | 42 [...] oxyCODONE | Take 1 tablet by | 90 | 0 | 10/05/19 | | | (ROXICODONE) 5 MG | mouth every 4 (four) | tablet | | 19 | 9 | | immediate release | hours as needed for | | | | | | tablet | Pain for up to 14 | | | | | | | days. | | | | | + + + +---------+ + + | traMADol (ULTRAM) | Take 1 tablet by | 90 | 0 | 10/05/19 | | | 50 MG tablet | mouth every 6 (six) | tablet | | 19 | 9 | | | hours as needed for | | | | | | | Pain for up to 14 | | | | | | | days. | | | | | + + + +---------+ + + as of this encounter Plan of Treatment Not on fileas of this encounter Procedures + +--------+ + + + | Procedure Name | Priori | Date/Time | Associated Diagnosis | Comments | | | ty | | | | + +--------+ + + + | MRSA BY PCR | Timed | 10/06/2018 | | Results for this | | | | 11:00 AM | | procedure are in the | | | | PDT | | results section. | + +--------+ + + + | CBC W/AUTO DIFF | Timed | 10/06/2018 | | Results for this | | (REFLEX TO MANUAL) | | 11:00 AM | | procedure are in the | | | | PDT | | results section. | + +--------+ + + + | TYPE AND SCREEN | JAMIL | 10/06/2018 | | Results for this | | | | 11:00 AM | | procedure are in the | | | | PDT | | results section. | + +--------+ + + + | HEMOGLOBIN A1C | Timed | 10/06/2018 | | Results for this | | | | 11:00 AM | | procedure are in the | | | | PDT | | results section. | + +--------+ + + + | COMPREHENSIVE | Timed | 10/06/2018 | | Results for this | | METABOLIC PANEL | | 11:00 AM | | procedure are in the | | | | PDT | | results section. | + +--------+ + + + in this encounter Results Glycohemoglobin A1c (10/06/2018 11:00 AM) + + + + + | Component | Value | Ref Range | Performed At | + + + + + | HEMOGLOBIN A1C | 4.5Comment: HbA1c method | 4.0 - 6.0 % | [facility] | | | is certified by [facility] | | LABORATORY | | | and traceable to the | | | | | DCCT reference | | | | | method.ADA guidelines | | | | | indicate: | | | | | Prediabetes: 5.7 - | | | | | 6.4 Diabetes: | | | | | >6.4 Glycemic | | | | | control for adults with | | | | | diabetes: <7.0Effective | | | | | 03/22/2018: Note New | | | | | Method | | | + + + + + | ESTIMATED AVG | 82Comment: Estimated | <154 mg/dL | [facility] | | GLUCOSE | Average Glucose | | LABORATORY | | | calculated from | | | | | hemoglobin A1c by use of | | | | | the ADA recommended | | | | | formula.Testing | | | | | performed at [facility], [address] | | | | [facility], | | | | | [place] [address] | | | + + + + + + + | Specimen | + + | Blood | + + + + + + + | Performing | Address | City/State/Zipcode | Phone Number | | Organization | | | | + + + + + | [facility] | [address] [place] [address] | [place] [address] | [phone] | | LABORATORY | Ray. | | | + + + + + MRSA by PCR (10/06/2018 11:00 AM) + + + + + | Component | Value | Ref Range | Performed At | + + + + + | SOURCE | NARES(NOSE) | | [facility] | + + + + + | MRSA PCR | NEGATIVEComment: Testing | NEGATIVE | [facility] | | | performed at [facility];[address] | | | | | [address];[place], [place] | | | | | [address] | | | + + + + + + + | Specimen | + + | Nasopharyngeal - | | Nares(Nose) | + + + + + + + | Performing | Address | City/State/Zipcode | Phone Number | | Organization | | | | + + + + + | [facility] | [address] | [place] [address] | | + + + + + Comprehensive metabolic panel (10/06/2018 11:00 AM) + + + + + | Component | Value | Ref Range | Performed At | + + + + + | SODIUM | 139 | 135 - 145 mmol/L | [facility] | | | | | LABORATORY | + + + + + | POTASSIUM | 3.9 | 3.5 - 4.9 mmol/L | [facility] | | | | | LABORATORY | + + + + + | CHLORIDE | 110 (H) | 99 - 109 mmol/L | [facility] | | | | | LABORATORY | + + + + + | CO2 | 21 (L) | 23 - 32 mmol/L | [facility] | | | | | LABORATORY | + + + + + | ANION GAP AGAP | 12 | 5 - 20 mmol/L | [facility] | | | | | LABORATORY | + + + + + | GLUCOSE | 119 (H) | 65 - 99 mg/dL | [facility] | | | | | LABORATORY | + + + + + | BUN | 13 | 8 - 25 mg/dL | [facility] | | | | | LABORATORY | + + + + + | CREATININE | 0.8 | 0.50 - 1.00 mg/dL | [facility] | | | | | LABORATORY | + + + + + | BUN/CREAT | 16 | | [facility] | | | | | LABORATORY | + + + + + | CALCIUM | 8.5 | 8.5 - 10.5 mg/dL | [facility] | | | | | LABORATORY | + + + + + | TOTAL PROTEIN | 7.2 | 6.3 - 8.2 g/dL | [facility] | | | | | LABORATORY | + + + + + | Albumin | 3.3 (L) | 3.6 - 5.0 g/dL | [facility] | | | | | LABORATORY | + + + + + | GLOBULIN | 3.9 | 1.3 - 4.9 g/dL | [facility] | | | | | LABORATORY | + + + + + | A/G | 0.8 (L) | 1.0 - 2.4 | [facility] | | | | | LABORATORY | + + + + + | TBIL | 0.2 | 0.1 - 1.5 mg/dL | [facility] | | | | | LABORATORY | + + + + + | ALK PHOS | 119 (H) | 35 - 115 U/L | [facility] | | | | | LABORATORY | + + + + + | AST | 30 | 10 - 45 U/L | [facility] | | | | | LABORATORY | + + + + + | ALT | 26 | 10 - 65 U/L | [facility] | | | | | LABORATORY | + + + + + | EGFR | >60Comment: GFR <60: | >60 mL/min/1.73m2 | [facility] | | | CHRONIC KIDNEY DISEASE, | | LABORATORY | | | IF FOUND OVER A 3 MONTH | | | | | PERIOD.GFR <15: KIDNEY | | | | | FAILURE.FOR | | | | | AMERICANS, MULTIPLY THE | | | | | CALCULATED GFR BY | | | | | 1.210.This eGFR is | | | | | calculated using the | | | | | MDRD IDMS traceable | | | | | equation.Testing | | | | | performed at [facility], [address] | | | | [address], | | | | | [place] [address] | | | + + + + + + + | Specimen | + + | Blood | + + + + + + + | Performing | Address | City/State/Zipcode | Phone Number | | Organization | | | | + + + + + | [facility] | [address] [facility] | [place] [address] | [phone] | | LABORATORY | [address] | | | + + + + + CBC W/Auto Diff (Reflex to Manual) (10/06/2018 11:00 AM) + + + + + | Component | Value | Ref Range | Performed At | + + + + + | WBC | 7.46 | 3.80 - 11.00 K/uL | [facility] | | | | | LABORATORY | + + + + + | RBC | 4.78 | 3.70 - 5.10 M/uL | [facility] | | | | | LABORATORY | + + + + + | HGB | 14.7 | 11.3 - 15.5 g/dL | [facility] | | | | | LABORATORY | + + + + + | HCT | 43.1 | 34.0 - 46.0 % | [facility] | | | | | LABORATORY | + + + + + | MCV | 90.0 | 80.0 - 100.0 fl | [facility] | | | | | LABORATORY | + + + + + | MCH | 30.8 | 27.0 - 34.0 pg | [facility] | | | | | LABORATORY | + + + + + | MCHC | 34.2 | 32.0 - 35.5 g/dL | [facility] | | | | | LABORATORY | + + + + + | RDW SD | 46.4 | 37 - 53 fl | [facility] | | | | | LABORATORY | + + + + + | PLT | 360 | 150 - 400 K/uL | [facility] | | | | | LABORATORY | + + + + + | MPV | 8.0 | fl | [facility] | | | | | LABORATORY | + + + + + | DIFF TYPE | AUTOMATED | | [facility] | | | | | LABORATORY | + + + + + | NEUTROPHILS | 56.27 | % | [facility] | | | | | LABORATORY | + + + + + | LYMPHOCYTES | 30.53 | % | [facility] | | | | | LABORATORY | + + + + + | MONOCYTES | 8.37 | % | [facility] | | | | | LABORATORY | + + + + + | EOSINOPHILS | 3.34 | % | [facility] | | | | | LABORATORY | + + + + + | BASOPHILS | 1.49 | % | [facility] | | | | | LABORATORY | + + + + + | NEUTROPHILS ABS | 4.20 | 1.90 - 7.40 K/uL | [facility] | | | | | LABORATORY | + + + + + | LYMPHOCYTES ABS | 2.28 | 1.00 - 3.90 K/uL | [facility] | | | | | LABORATORY | + + + + + | MONOCYTES ABS | 0.62 | 0.00 - 0.80 K/uL | [facility] | | | | | LABORATORY | + + + + + | EOSINOPHILS ABS | 0.25 | 0.00 - 0.50 K/uL | [facility] | | | | | LABORATORY | + + + + + | BASOPHILS ABS | 0.11 (H)Comment: Testing | 0.00 - 0.10 K/uL | [facility] | | | performed at [facility], [address] | | LABORATORY | | | [address], | | | | | [place] [address] | | | + + + + + + + | Specimen | + + | Blood | + + + + + + + | Performing | Address | City/State/Zipcode | Phone Number | | Organization | | | | + + + + + | [facility] | [address] [facility] | [place] [address] | [phone] | | LABORATORY | [address] | | | + + + + + Type and screen (10/06/2018 11:00 AM) + + + + + | Component | Value | Ref Range | Performed At | + + + + + | ABO/RH(D) | O POSITIVE | | [facility] | + + + + + | ANTIBODY SCREEN | NEGATIVETesting | | [facility] | | | performed at [facility];[address] | | | | [address];[place], [place] | | | | | [address] | | | + + + + + + + | Specimen | + + | Blood | + + + + + + + | Performing | Address | City/State/Zipcode | Phone Number | | Organization | | | | + + + + + | [facility] | [address] | [place] [address] | | + + + + + in this encounter Visit Diagnoses Not on filein this encounter"
--- OUTSIDE RECORDS SUMMARY | ~2018-12-31 | XMS | Encounter Summary ---
Demographics + + + | Address | [address] | | | [place] [address] | + + + | Home Phone | | + + + | Preferred Language | Unknown | + + + | Marital Status | | + + + | Confucianist Affiliation | Unknown | + + + | Race | Unknown | + + + | Ethnic Group | Unknown | + + + Author + + + | Author | [facility] | | | and [place] | + + + | Organization | [facility] | | | and [place] | + + + | Address | Unknown | + + + | Phone | Unavailable | + + + Support + + + + + | Name | Relationship | Address | Phone | + + + + + | Fabienne Juarez | ECON | [place] | | | | | [address] | | + + + + + Care Team Providers + +------+ + | Care Precision Layout Worker Name | Role | Phone | + [...] | | 2019 | | RADHA [address] | MD Fab [address] | REQUEST) | | | | [address] [place], [place] | [address] [place] [address] | | | | | [address] | [place] [address] | | | | | [phone] | [phone] | | | | | | | [...]
--- OUTSIDE RECORDS SUMMARY | ~2018-12-31 | XMS | Encounter Summary ---
Demographics + + + | Address | [address] | | | [place] [address] | + + + | Home Phone | | + + + | Preferred Language | Unknown | + + + | Marital Status | | + + + | Sabianist Affiliation | Unknown | + + + | Race | Unknown | + + + | Ethnic Group | Unknown | + + + Author + + + | Author | [facility] | | | and [place] | + + + | Organization | [facility] | | | and [place] | + + + | Address | Unknown | + + + | Phone | Unavailable | + + + Support + + + + + | Name | Relationship | Address | Phone | + + + + + | Fabienne Juarez | ECON | [place] | | | | | [address] | | + + + + + Care Team Providers + +------+ + | Care Stump Blower Name | Role | Phone | + [...] | | | prosthetic | | [address] | | | | | joint, | | [address] [place] | | | | | initial | | [place] | | | | | encounter | | [address] Phone: | | | | | ([facility]) | | [phone] | | | | | Mechanical | | Fax: | | | | | complication | | [phone] | | | | | of | | | | | | | prosthetic | | | | | | | knee | | | | | | | implant, | | | | | | | initial | | | | | | | encounter | | | | | | | ([facility]) | | | | | | | Procedures | | | | | | | [facility] | | | | | | [...] + | 10/24/ | Anesthesia | [facility] | Griselda Brush | | | 2018 | Event [facility] | [place], [place] [address] | | | | | OPERATING RO[address] | [address] [place] | | | | | [place] | [address] | | | | | [place] | | | | | | [address] | | | | | | [phone] | | | +--------+ + + + + Anesthesia Record + + + + + | Procedure Name | Responsible | Anesthesia Start | Anesthesia Stop Time | | | Anesthesiologist | Time | | + + + + + | ARTHROPLASTY | Jt Thorpe MD | 10/24/18 1556 | 10/24/18 0771 | | REVISION TOTAL HIP | | [...] 9 | | for the spinal. The [employer] Jolene is assisting | | | | [...] +----+---+ + + | | 1 | [place] | | | | 6 | 43-degrees [...] 10/24/181831 by | | | | hip; TIMIBAZITA, TABITHA DRESSING | Dano Roberts RN | | +--------+ + + + | Periph | 10/24/18; 1406; Left; Upper Arm; | 10/24/18 1406 by | 10/27/18 0531 by | | siddharth | 20 gauge; Blood Bank; site | Sandy Rios, | Jimena Lowry | | IV | symptomatic; infiltrated; | JUAN | JUAN Ramirez | | | 10/27/18; 0531 | | | +--------+ + + + | Airway | Placement Date: 10/24/18; | 10/24/181644 by | 10/24/181834 by | | | Placement Time: 1644; Airway | Griselda Brush, | Dominique Chong RN | | | Type: nasal; Size: 30; Position: | 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 | | | | Left; Trauma: none; [...] Last Filed Vital Signs + +---------+ + | Vital Sign | Reading | Time Taken | + +---------+ + | Blood Pressure | 130/62 | 10/24/2018 1827 PDT | + +---------+ + | Pulse | 72 | 10/24/20181823 PDT | + +---------+ + | Temperature | - | - | + +---------+ + | Respiratory Rate | - | - | + +---------+ + | Oxygen Saturation | 100% | 10/24/20181823 PDT | + +---------+ + | Inhaled Oxygen | - | - | | Concentration | | | + +---------+ + | Weight | - | - | + +---------+ + | Height | - | - | + +---------+ + | Body Mass Index | - | - | + +---------+ + documented in this encounter Plan of Treatment Not on filedocumented as of this encounter Results Neuraxial (10/24/2018 16:44 PDT) + + + | Narrative | Performed At | + + + | Griselda Brush, SOLE PAINTER 10/24/2018 17:11 Neuraxial Procedure | | | Note 10/24/2018 16:00 Procedure: single-shot spinal anesthesia | | | Provider requested procedure: Mcgraw Indication: surgical | | | anesthesia Preprocedure [...] + | Griselda Brush CRNA - 10/24/2018 1644 PDT Neuraxial Procedure Note10/24/2018 [...] 0.5% injection EPIDURAL, PRN, | | 19 16:07 | | | | | Starting 10/24/18 at 1607, | | PDT | | | | | Anesthesia Intra-op | | | | | | + +--------+ +---------+------+------+ +---+---+ | | | +---+---+ + +-------+ +-----+---+---+ | ceFAZolin in dextrose (ANCEF) | Given | 10/25/19 | 2 g | | | | IVPB 2 g 2 g, Intravenous, | | 19 16:23 | | | | | Administer over 30 Minutes, Prior | | PDT | | | | | to [...] | mg/mL injection Intravenous, | | 19 16:53 | | | | | PRN, Starting 10/24/18 at | | PDT | | | | | 1653, [...] | syringe Intravenous, PRN, | | 19 17:20 | | | | | Starting 10/24/18 at 1720, | | PDT | | | | | Anesthesia Intra-op | | | | | | + +-------+ +-------+---+---+ +---+---+ | | | +---+---+ + +-------+ +--------+---+---+ | EPINEPHrine 1 mg/mL injection | Given | 10/25/19 | 10 mcg | | | | INTRASPINAL, Starting 10/24/18 | | 19 16:07 | | | | | at 1607, Anesthesia Intra-op | | PDT | | | | + +-------+ +--------+---+---+ +---+---+ | | | +---+---+ + +-------+ +--------+---+---+ | fentaNYL (PF) injection | Given | 10/25/19 | 20 mcg | | | | INTRASPINAL, Starting 10/24/18 | | 19 16:07 | | | | | at 1607, Anesthesia Intra-op | | PDT | | | | + +-------+ +--------+---+---+ +---+---+ | | | +---+---+ + +-------+ +---------+---+---+ | glycopyrrolate (ROBJOE) | Given | 10/25/19 | 0.15 mg | | | | injection Intravenous, PRN, | | 19 16:00 | | | | | Starting 10/24/18 at 1600, | | PDT | | | | | Anesthesia Intra-op | | | | | | + +-------+ +---------+---+---+ +---+---+ | | | +---+---+ + +-------+ +-------+---+---+ | lidocaine (PF) 2% injection | Given | 10/25/19 | 50 mg | | | | Intravenous, PRN, Starting Tue | | 19 16:19 | | | | | 10/24/18 at 1619, Anesthesia | | PDT | | | | | Intra-op | | | | | | + +-------+ +-------+---+---+ +---+---+ | | | +---+---+ + +-------+ +------+---+---+ | midazolam (VERSED) 1 mg/mL | Given | 10/25/19 | 2 mg | | | | injection Intravenous, PRN, | | 19 16:00 | | | | | Starting 10/24/18 at 1600, | | PDT | | | | | Anesthesia Intra-op | | | | | | + +-------+ +------+---+---+ +---+---+ | | | +---+---+ + +-------+ +------+---+---+ | ondansetron (ZOFRAN) injection | Given | 10/25/19 | 4 mg | | | | Intravenous, PRN, Starting Tue | | 19 16:00 | | | | | 10/24/18 at 1600, Anesthesia | | PDT | | | | | Intra-op | | | | | | + +-------+ +------+---+---+ +---+---+ | | | +---+---+ + +-------+ +---------+---+---+ | phenylephrine (DEVONTE-SYNEPHRINE, | Given | 10/25/19 | 100 mcg | | | | VAZCULEP) 10 mg/mL injection | | 19 18:07 | | | | | Intravenous, PRN, Starting Tue | | PDT | | | | | 10/24/18 at 1655, Anesthesia | | | | | | | Intra-op | | | | | | + +-------+ +---------+---+---+ +-------+ +---------+---+---+ | Given | 10/25/19 | 100 mcg | | | | | 19 17:58 | | | | | | PDT | | | | +-------+ +---------+---+---+ | Given | 10/25/19 | 100 mcg | | | | | 19 17:34 | | | | | | PDT | | | | +-------+ +---------+---+---+ +---+---+ | | | +---+---+ + +-------+ +-------+---+---+ | propofol (DIPRIVAN) injection | Given | 10/25/19 | 30 mg | | | | Intravenous, PRN, Starting Tue | | 19 16:30 | | | | | 10/24/18 at 1619, Anesthesia | | PDT | | | | | Intra-op | | | | | | + +-------+ +-------+---+---+ +-------+ +-------+---+---+ | Given | 10/25/19 | 20 mg | | | | | 19 16:24 | | | | | | PDT | | | | +-------+ +-------+---+---+ | Given | 10/25/19 | 30 mg | | | | | 19 16:19 | | | | | | PDT | | | | +-------+ +-------+---+---+ +---+---+ | | | +---+---+ + + + + +-------+---+ | propofol infusion (DIPRIVAN) 10 | Rate/Dos | 10/25/19 | 125 | 89.3 | | | mg/mL infusion Intravenous, | e Change | 19 16:51 | mcg/kg/m | mL/hr | | | CONTINUOUS PRN, Starting Tue | | PDT | in | | | | 10/24/18 at 1619, Anesthesia | | | | | | | Intra-op | | | | | | + + + + +-------+---+ + + + +-------+---+ | Rate/Dose Change | 10/25/19 | 110 | 78.5 | | | | 19 16:42 | mcg/kg/m | mL/hr | | | | PDT | in | | | + + + +-------+---+ | Rate/Dose Change | 10/25/19 | 100 | 71.4 | | | | 19 16:37 | mcg/kg/m | mL/hr | | | | PDT | in | | | + + + +-------+---+ +---+---+ | | | +---+---+ + +---------+ + +---+---+ | tranexamic acid (CYKLOKAPRON) | New Bag | 10/25/19 | 1,000 mg | | | | 1,000 mg in sodium chloride 0.9% | | 19 16:31 | | | | | 50 mL IVPB 1,000 mg, | | PDT | | | [...] in sodium chloride 0.9% | | 19 18:01 | | | | | 50 mL IVPB 1,000 mg, | | PDT | | | | | Intravenous, at 360 mL/hr, ONCE, | | | | | | | 10/24/18 at 1345, For 1 dose, | | | | | | | Pre-op | | | | | | + +---------+ + +---+---+ +---+---+ | | | +---+---+ documented in this encounter"
--- OUTSIDE RECORDS SUMMARY | ~2018-12-31 | XMS | Encounter Summary ---
Demographics + + + | Address | [address] | | | [place] [address] | + + + | Home Phone [...] | Author | [facility] (Historical as of | | | 10-21-18) | + + + | Organization | [facility] (Historical as of | | | 10-21-18) | + + + | Address | Unknown | + + + | Phone | Unavailable | + + + Support + + + + + | Name | Relationship | Address | Phone | + + + + + | Fabienne Juarez | ECON | [place] | | | | | [address] | | + + + + + Care Team Providers + +------+ + | Care Econometrician Name | Role | Phone | + +------+ + | None, Per Pt | PCP | [id number] | + +------+ + Reason for Visit Diagnostic X-Ray (Routine) +--------+--------+ + + + + | Status | Reason | Specialty | Diagnoses / | Referred By | Referred To | | | | | Procedures | Contact | Contact | +--------+--------+ + + + + | Closed | | Radiology | Diagnoses | Ene[place], | [facility] | | | | | Pain due to | Miah Sanon MD | [address] | | | | | internal | [address] | | | | | orthopedic | [address] | [place] | | | | | prosthetic | [place], [place] | [address] Phone: | | | | | devices, | [address] | [phone] | | | | | implants and | Phone: | | | | | | grafts, | [phone] | | | | | | initial | Fax: | | | | | | encounter | [phone] | | | | | | (HCC) | | | | | | | Presence of | | | | | | | unspecified | | | | | | | 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 | | | | | | | Procedures | | | | | | | IL | | | | | | | ARTHROCENTES | | | | | | | IS | | | | | | | ASPIR&/INJ | | | | | | | MAJOR | | | | | | | JT/BURSA W/O | | | | | | | US CHG | | | | | | | FLUOROSCOPIC | | | | | | | GUIDANCE | | | | | | | NEEDLE | | | | | | | PLACEMENT | | | | | | | ADD ON XR | | | | | | | ARTHROCENTES | | | | | | | IS HIP LT | | | +--------+--------+ + + + + Encounter Details +--------+ + + + + | Date | Type | Department | Care Team | Description | +--------+ + + + + | 10/18/ | Hospital | [facility] | Miah Monique | | | 2019 | Encounter | [facility] | MD Fab [address] | | | | | [address] | [address] | | | | | [address] [place], [place] | [place], [place] | | | | | [address] | [address] | | | | | | [phone] | | | | | | | | | | | | Sky Jimenez Pro | | +--------+ + + + + [...] + + + as of this encounter Medications at Time [...] + +--------+ + + + | XR ARTHROCENTESIS | Routin | 10/18/2018 | Pain due to total | Results for this | | HIP LEFT | e | 2:45 PM | hip replacement, | procedure are in the | | | | PDT | initial encounter | results section. | | | | | (HCC) | | + +--------+ + + + in this encounter Visit Diagnoses Not on filein this encounter Administered Medications + +--------+ +-------+------+------+ | Medication Order | MAR | Action | Dose | Rate | Site | | | Action | Date | | | | + +--------+ +-------+------+------+ | lidocaine 1 % injection 5 mL 5 | Given | | 5 mLs | | | | mL, Intradermal, Img Once PRN, | | 9 15:07 | | | | | for procedure, Starting Wed | | PDT | | | | | 10/18/18 at 1500, For 1 dose | | | | | | + +--------+ +-------+------+------+ +---+---+ | | | +---+---+ in this encounter"
--- OUTSIDE RECORDS SUMMARY | ~2018-12-31 | XMS | Encounter Summary ---
Demographics + + + | Address | [address] | | | [place] [address] | + + + | Home Phone | | + + + | Preferred Language | Unknown | + + + | Marital Status | | + + + | Congregational Affiliation | Unknown | + + + | Race | Unknown | + + + | Ethnic Group | Unknown | + + + Author + + + | Author | [facility] | | | and [place] | + + + | Organization | [facility] | | | and [place] | + + + | Address | Unknown | + + + | Phone | Unavailable | + + + Support + + + + + | Name | Relationship | Address | Phone | + + + + + | Fabienne Juarez | ECON | [place] | | | | | [address] | | + + + + + Care Team Providers + +------+ + | Care Grocery Buyer Name | Role | Phone | + [...] [address] | | | | | [address] [place], [place] | [address] | | | | | [address] | [place] [address] | | | | | [phone] | [phone] | | | | | | | [...]
--- OUTSIDE RECORDS SUMMARY | ~2018-12-31 | XMS | Encounter Summary ---
Demographics + + + | Address | [address] | | | [place] [address] | + + + | Home Phone | | + + + | Preferred Language | Unknown | + + + | Marital Status | | + + + | Mormonism Affiliation | Unknown | + + + | Race | Unknown | + + + | Ethnic Group | Unknown | + + + Author + + + | Author | [facility] | | | and [place] | + + + | Organization | [facility] | [...] [place] | | | | | [address] | | + + + + + Care Team Providers + +------+ + | Care Rim Roller Operator Name | Role | Phone | [...] [address] | | | | | [address] [place], [place] | [address] | | | | | [address] | [place] [address] | | | | | [phone] | [phone] | | | | | | | [...]
--- OUTSIDE RECORDS SUMMARY | ~2018-12-31 | XMS | Encounter Summary ---
Demographics + + + | Address | [address] | | | [place] [address] | + + + | Home Phone [...] + + | Author | [facility] | | | and [place] | + + + | Organization | [facility] | | | and [place] | + + + | Address | Unknown | + + + | Phone | Unavailable | + + + Support + + + + + | Name | Relationship | Address | Phone | + + + + + | Fabienne Juarez | ECON | [place] | | | | | [address] | | + + + + + Care Team Providers + +------+ + | Care Manager Clinical Research Name | Role | Phone | + +------+ + | Celestine Watters MD | PCP | | + +------+ + Encounter Details +--------+ + + + + | Date | Type | Department | Care Team | Description | +--------+ + + + + | 10/04/ | Orders Only | [facility] | Emilio Moreno, | | | 2018 | | [place] [address] [place] PA-C [address] | | | | | BLVD [place], [place] | [place], | | | | | [address] | [place] [address] | | | | | [phone] | [phone] | | | | | | | [...]
--- OUTSIDE RECORDS SUMMARY | ~2018-12-31 | XMS | Clinical Summary ---
Demographics + + + | Address | [address] | | | [place] [address] | + + + | Home Phone [...] + | Author | [facility] | | | and [place] | + + + | Organization | [facility] | | | and [place] | + + + | Address | Unknown | + + + | Phone | Unavailable | + + + Support + + + + + | Name | Relationship | Address | Phone | + + + + + | Fabienne Juarez | ECON | [place] | | | | | [address] | | + + + + + Care Team Providers + +------+ + | Care Mechanical Engineering Technologist Name | Role | Phone | + [...] Overview: Added automatically from request for surgery [id number] | + + + + + | Mechanical instability of hip prosthesis | 09/11/2018 | + + + + + | Overview: Added automatically from request for surgery [id number] | + + Encounters +--------+ + + [...] | | 2018 | | | | ([facility]); Mechanical | | | | | | complication of | | | | | | prosthetic knee | | | | | | implant, initial | | | | | | encounter ([facility]); | | | | | | Mechanical | | | | | | instability of hip | | | | | | prosthesis ([facility]); | | | | | | Shortness of breath; | | | | | | Acute respiratory | | | | | | failure with hypoxia | | | | | | ([facility]) | +--------+ + + + + | [...] | | | | | ([facility]) | +--------+ + + + + | [...] MD | | | | | | /78062 | | | | | | | [...] MD | | | | | | /23350 | | | | | | | [...] MD | | | | | | /42984 | | | | | | | [...] [place], | | | | | | /[address] | | Miah Sanon MD | | | | | | 601A | + +--------+--------+ +--------+--------+--------+ | Screw Hex Lp [id number] - | | Left: | JULIEN | | 07/05/ | 7030-6 | | SnaImplanted: Qty: 1 on | | Hip | MEDICAL - | | 2023 | 530 | | 10/24/2018 by [place], | | | STRY | | | /NA | | Miah Sanon MD | | | | | | /[id number] | + +--------+--------+ +--------+--------+--------+ | Screw Hex Lp [id number] - | | Left: | JULIEN | | 08/12/ | 7030-6 | | SnaImplanted: Qty: 1 on | | Hip | MEDICAL - | | 2023 | 530 | | 10/24/2018 by [place], | | | STRY | | | /NA | | Miah Sanon MD | | | | | | /4RS | + +--------+--------+ +--------+--------+--------+ | Screw Hex Lp [id number] - | | Left: | JULIEN | [...] | | | s | | | /[id number] | | Miah Sanon MD | | [...] the | | | | | encounter ([facility]) | results section. | | | | | Mechanical | | | | | | complication of | | | | | | prosthetic knee | | | | | | implant, initial | | | | | | encounter ([facility]) | | + +--------+ + + [...] | | | | TC, [address] [facility] | | | | | | [place] | | | | | | [address] | | | | + + + + + + + + | Specimen | + + | Blood | + + + + + + + | Performing | Address | City/State/Zipcode | Phone Number | | Organization | | | | + + + + + | [facility] | [address] | [place] [address] | [phone] | + + + + + Magnesium [...] | | | | | [place] [address] | | | | + + + + + + + + | Specimen | + + | Blood | + + + + + + + | Performing | Address | City/State/Zipcode | Phone Number | | Organization | | | | + + + + + | [facility] | [address] | [place] [address] | [phone] | + + + + + Basic [...] | >60Comment: GFR <60: | >60 | [facility] | | | GFR | CHRONIC KIDNEY [...] | | | | | | MDRD IDMN traceable | | | | | | equation.Testing | | | | | | performed at [facility], [address] | | | | | | [facility], | | | | | | [place] [address] | | | | + + + + + + + + | Specimen | + + | Blood | + + + + + + + | Performing | Address | City/State/Zipcode | Phone Number | | Organization | | | | + + + + + | [facility] | [address] | [place] [address] | [phone] | + + + + + Procalcitonin (11/07/2018 4:11 PDT)Only the most recent of 3 results within the time tutu arboleda is included. + + + + + + | Component | Value | Ref Range | Performed | Pathologist | | | | | At | Signature | + + + + + + | PROCALCITON | 0.10Comment: | <0.5 ng/mL | [facility] | | | IN | INTERPRETIVE | [...] | | | | | | at [facility];[address] [place] [address] | | | | | | [facility];[place] [address] | | | | + + + + + + + + | Specimen | + + | Blood | + + + + + + + | Performing | Address | City/State/Zipcode | Phone Number | | Organization | | | | + + + + + | [facility] | [address] | [place] [address] | [phone] | + + + + + ANTHONY Chinchilla, Reflex (11/01/2018 4:17 PDT) + + + + + + | Component | Value | Ref Range | Performed | Pathologist | | | | | At | Signature | + + + + + + | ANTHONY Screen, | NegativeComment: Testing | Negative | [facility] | | | Qual | performed at [facility] | | LABORATORY | | | | [address] | | | | | | [place] [address] | | | | + + + [...] | | | | | | both MI-3 and MPO-ANCA | | | | | [...] | | 3 Antibody | performed by [facility], | | LABORATORY | | | | [address] [facility], | | | | | | [facility] [address] | | | | + + + + + + + + | Specimen | + + | Blood | + + + + + + + | Performing | Address | City/State/Zipcode | Phone Number | | Organization | | | | + + + + + | [facility] | [address] | [place] [address] | [phone] | + + + + + Potassium (10/31/2018 18:15 PDT) + + + + + + | Component | Value | Ref Range | Performed | Pathologist | | | | | At | Signature | + + + + + + | K | 3.8Comment: Testing | 3.5 - 4.9 | [facility] | | | | performed at [facility];[address] | mmol/L | LABORATORY | | | | [address];[place] | | | | | | [address] | | | | + + + + + + + + | Specimen | + + | Blood | + + + + + + + | Performing | Address | City/State/Zipcode | Phone Number | | Organization | | | | + + + + + | [facility] | [address] | [place] [address] | [phone] | + + + + + Phosphorus (10/31/2018 4:14 PDT) + + + + + + | Component | Value | Ref Range | Performed | Pathologist | | | | | At | Signature | + + + + + + | Phosphorus | 3.4Comment: Testing | 2.3 - 4.8 mg/dL | [facility] | | | | performed at [facility], [address] | | LABORATORY | | | | [address] [facility], | | | | | | [place] [address] | | | | + + + + + + + + | Specimen | + + | Blood | + + + + + + + | Performing | Address | City/State/Zipcode | Phone Number | | Organization | | | | + + + + + | [facility] | [address] | [place] [address] | [phone] | + + + + + XR [...] + + | Performing | Address | City/State/[facility] | Phone Number | | Organization [...] <20 | 30 - 150 ng/mL | [facility] | | | 25-Hydroxy | ng/mL Suggest [...] | | | | | performed at [facility], [address] | | | | | | [facility], | | | | | | [place] [address] | | | | + + + + + + + + | Specimen | + + | Blood | + + + + + + + | Performing | Address | City/State/Zipcode | Phone Number | | Organization | | | | + + + + + | [facility] | [address] | [place] [address] | [phone] | + + + + + Culture, [...] RESULT | Testing performed at | | [facility] | | | | [facility], [address] [facility] | | LABORATORY | | | | [place], [place] | | | | | | [address]Jztxvpu: Testing | | | | | | performed at [facility], [address] | | | | | | [facility], | | | | | | [place] [address] | | | | + + + + + + + + | Specimen | + + | Body Fluid | + + + + + + + | Performing | Address | City/State/Zipcode | Phone Number | | Organization | | | | + + + + + | [facility] | [address] | [place] [address] | [phone] | + + + + + ECHO [...] (H)Comment: | 0 - 100 pg/mL | [facility] | | | | Testing performed at | | LABORATORY | | | | [facility];[address] [place] [address] | | | | | | Bl;[place] [address] | | | | + + + + + + + + | Specimen | + + | Blood | + + + + + + + | Performing | Address | City/State/Zipcode | Phone Number | | Organization | | | | + + + + + | [facility] | [address] | [place] [address] | [phone] | + + + + + CT [...] [facility] | | | | performed at [facility], [address] | | LABORATORY | | | | [place], | | | | | | [place] [address] | | | | + + + + + + + + | Specimen | + + | Blood | + + + + + + + | Performing | Address | City/State/Zipcode | Phone Number | | Organization | | | | + + + + + | [facility] | [address] | [place] [address] | [phone] | + + + + + ECG [...] | | | | | [place] [address] | | | | + + + + + + + + | Specimen | + + | Blood | + + + + + + + | Performing | Address | City/State/Zipcode | Phone Number | | Organization | | | | + + + + + | [facility] | [address] | [place] [address] | [phone] | + + + + + XR [...] + + | Performing | Address | City/State/[facility] | Phone Number | | Organization [...] | | | abnormalities are grossly identified. Emergency Service Restorer sections are | | | submitted in [...] interpretation was | | | performed by [place], [facility], [facility] | | | [place], [place] (Organ Recovery Coordinator: Víctor Livingston M.D.; | | | CLIA#: [id number]).The technical component was performed by [facility] | | | [facility], [address] [place] [address] (Organ Recovery Coordinator: | | | Nadiya Sharma MD; CLIA# [id number]). Diagnostician: Víctor Livingston | | | MDPathologistElectronically [...] Note | + + | Griselda Brush, TAX ADVISOR - 10/24/2018 1644 PDT Neuraxial Procedure Note10/24/2018 [...] [place] | | | | | | [address]Z[place]qo: Testing | | | | | | performed at [facility], [address] | | | | | | [place], | | | | | | [place] [address] | | | | + + + + + + + + | Specimen | + + | Tissue | + + + + + + + | Performing | Address | City/State/Zipcode | Phone Number | | Organization | | | | + + + + + | [facility] | [address] | [place] [address] | [phone] | + + + + + Culture, [...] | | LABORATORY | | | | Blvd;[place] [address] | | | | + + + [...] RESULT | Testing performed at | | [facility] | | | | [facility], [address] [facility] | | LABORATORY | | | | [place] | | | | | | [address]Dizpeoy: Testing | | | | | | performed at [facility], [address] | | | | | | [address] [place] | | | | | | [address] | | | | + + + + + + + + | Specimen | + + | | + + + + + + + | Performing | Address | City/State/Zipcode | Phone Number | | Organization | | | | + + + + + | [facility] | [address] | [place] [address] | [phone] | + + + + + Type [...] + + + | [facility] | [id number] | | [facility] | | | | | | LABORATORY | | + + + + + + | [facility] | Testing performed at | | [facility] | | | | [facility];[address] | LABORATORY | | | | [address];[place] [address] | | | | + + + + + + + + | Specimen | + + | Blood | + + + + + + + | Performing | Address | City/State/Zipcode | Phone Number | | Organization | | | | + + + + + | [facility] | [address] | [place] [address] | [phone] | + + + + + POCT Test, Urine, Qual (10/24/2018 13:27 PDT) + + + + + + | Component | Value | Ref Range | Performed | Pathologist | | | | | At | Signature | + + + + + + | HCG, | NEGATIVEComment: Testing | NEG | [facility] | | | Quantitativ | performed at [facility];[address] | | LABORATORY | | | e POC | [address];[place] | | | | | | [address] | | | | + + + + + + + + | Specimen | + + | | + + + + + + + | Performing | Address | City/State/Zipcode | Phone Number | | Organization | | | | + + + + + | [facility] | [address] | [place] [address] | [phone] | + + + + + Cell [...] | | CLOUDY | | | RBC'S 35965 | | | TOTAL NUCLEATED | | | CELLS 29 | | | NEUTROPHILS 83 | | | | | | LYMPHOCYTES 14 | | | | | | EOSINOPHILS 3 | | | CELLS | | | COUNTED 100 | | | Testing performed at [facility];[address] [place] [address];[place] [address] | | + + + + +---------+ [...] LAB | | SEEN Testing performed at [facility];[address] [place] [address];[place] [address] | | + + + + +---------+ [...] | | | Basophils | performed at [facility], [address] | LAB | | | | [address] [place], | | | | | | [place] [address] | | | | + + + [...] NEGATIVE | | | Testing performed at [facility];[address] [facility];[place] [address] | | + + + + +---------+ [...] | | A1c | is certified by [facility] | | LAB | | | | [...] | | | | | performed at [facility], [address] | | | | | | [place], | | | | | | [place] [address] | | | | + + + [...] | | | | | performed at [facility], [address] | | | | | | [facility], | | | | | | [place] [address] | | | | + + + [...] +---------+--------+ | MEDICAID [place] | MEDICA | [id number] | | [phone] | | Medica | | | ID [...] | | al/Fam | | 1971 | [id number] | [place] [address] | | | sreekanth | | | 9 (Home) | | + +--------+ +--------+ + + Advance Directives Patient has advance care planning documents, and code status on file. For more information, please contact:[facility] [address] + + + + + | Code Status | Date | Date | Comments | | | Activated | Inactivated | | + + + + + | Full Code | 10/24/2018 | 11/09/2018 | | | | 21:20 | 18:02 | | + + + + +
--- OUTSIDE RECORDS SUMMARY | ~2018-12-31 | XMS | Encounter Summary ---
Demographics + + + | Address | [address] | | | [place] [address] | + + + | Home Phone | | + + + | Preferred Language | Unknown | + + + | Marital Status | | + + + | Jehovah'S Witness Affiliation | Unknown | + + + | Race | Unknown | + + + | Ethnic Group | Unknown | + + + Author + + + | Author | [facility] | | | and [place] | + + + | Organization | [facility] | | | and [place] | + + + | Address | Unknown | + + + | Phone | Unavailable | + + + Support + + + + + | Name | Relationship | Address | Phone | + + + + + | Fabienne Juarez | ECON | [place] | | | | | [address] | | + + + + + Care Team Providers + +------+ + | Care Jalousies Installer Name | Role | Phone | + [...] | | | | encounter | | [address] Phone: | | | | | ([facility]) | | [phone] | | | | | Mechanical | | Fax: | | | | | complication | | [phone] | | | | | of | | | | | | | prosthetic | | | | | | | knee | | | | | | | implant, | | | | | | | initial | | | | | | | encounter | | | | | | | ([facility]) | | | | | | [...] + + | 10/24/ | Surgery | [facility] | Miah Monique | ARTHROPLASTY | | 2018 | | [facility] | MD [address] | REVISION TOTAL HIP | | | | OPER[address] | [address] | | | | | [address] | [place] [address] | | | | | [place], [place] | [phone] | | | | | [address] | | | | | | [phone] | | | +--------+---------+ + + + [...] + | Pulse | 90 | 11/09/2018 1514 PDT | + + + + | Temperature | 36.9 C (98.4 F) | 11/09/2018 1143 PDT | + + + + | [...] | Height | 152.4 cm (5') | 10/24/20181339 PDT | + + + + | Body Mass Index | 50.16 | 10/24/20181339 PDT | + + + + documented [...] a left total hip arthroplasty rev [facility], comprising of an acetabular component revision. [...] and psychiatry was consulted. He r psychiatry MANPOWER DEVELOPMENT SPECIALIST was also contacted and she was restarted [...] room air #Depression/anxiety/PTSD: -11/03/18 Discuss[address] patient with [facility] [phone]. She has a diagnosis of PTSD and [...] TOTAL HIP; Surgeon: Miah Monique MD; Location: [facility] MAIN OR TOTAL HIP ARTHROPLASTY Left [...] Full Code Follow up: Miah Monique MD [address] [place] [facility] [address] In 4 weeks For wound re-check and [...] more often than directed. Talk to your welt wheeler regarding the use of this medicine in [...] should report to your doctor or health resident caregiver as soon as p ossible: allergic reactions [...] attention (report to your doctor or health resident caregiver if they continue or are bothersome): diarrhea [...] for pain, tell your doctor or health resident caregiver if the pain lasts more than 10 [...] if prescribed by your doctor or health resident caregiver. Do not take aspirin or aspirin-like medicines [...] pharmacist, or health care provider. Copyright 2019 [employer] Albuterol inhalation aerosol Brand Names: Proair HFA, [...] ou have any questions. Talk to your welt wheeler regarding the use of this medicine in children. Special care may be needed. What side effects may I notice from receiving this medicine? Side effects that you should report to your doctor or health resident caregiver as soon as p ossible: allergic reactions [...] attention (report to your doctor or health resident caregiver if they continue or are bothersome): cough [...] this medicine? Tell your doctor or health resident caregiver if your symptoms do not improve. Do [...] IPRATROPIUM (al BYOO ter ole; i pra ROC martineze um) has two bronchodilators. It hel ps [...] more often than directed. Talk to your welt wheeler regarding the use of this medicine in children. Special care may be needed. What side effects may I notice from receiving this medicine? Side effects that you should report to your doctor or health resident caregiver as soon as p ossible: allergic reactions [...] attention (report to your doctor or health resident caregiver if they continue or are bothersome): blurred [...] pharmacist, or health care provider. Copyright 2019 [employer] Celecoxib capsules Brand Name: Celebrex What is [...] information carefully each time. Talk to your welt wheeler regarding the use of this medicine in children. Special care may be needed. What side effects may I notice from receiving this medicine? Side effects that you should report to your doctor or health resident caregiver as soon as p ossible: allergic reactions [...] attention (report to your doctor or health resident caregiver if they continue or are bothersome): constipation [...] this medicine? Tell your doctor or health resident caregiver if your pain does not get better. [...] roke, talk with your doctor or health resident caregiver. Do not take medicines such as ibuprofen [...] pharmacist, or health care provider. Copyright 2019 [employer] Furosemide tablets Brand Names: Active-Medicated Specimen Kit, [...] not take at bedtime. Talk to your welt wheeler regarding the use of this medicine in children. While this drug m ay be prescribed for selected conditions, precautions do apply. What side effects may I notice from receiving this medicine? Side effects that you should report to your doctor or health resident caregiver as soon as p ossible: blood in [...] attention (report to your doctor or health resident caregiver if they continue or are bothersome): headache [...] this medicine? Visit your doctor or health resident caregiver for regular checks on your progress. Check yo ur blood pressure regularly. Ask your doctor or health resident caregiver what your blood pre ssure should be, [...] pharmacist, or health care provider. Copyright 2019 [employer] Gabapentin capsules or tablets Brand Names: Active-PAC [...] information carefully each time. Talk to your welt wheeler regarding the use of this medicine in children. Special care may be needed. What side effects may I notice from receiving this medicine? Side effects that you should report to your doctor or health resident caregiver as soon as p ossible: allergic reactions like skin rash, itching or hives, swelling of the face, lips, or tong ue worsening of mood, thoughts or actions of suicide or dying Side effects that usually do not require medical attention (report to your doctor or health resident caregiver if they continue or are bothersome): constipation [...] this medicine? Visit your doctor or health resident caregiver for regular checks on your progress. You may want to keep a record at home of how you feel your condition is responding to treatment. You may want to share this information with your doctor or health resident caregiver at each vis it. You should contact your doctor or health resident caregiver if your seizures get worse or if you have any new types of seizures. Do not stop taking this medicine or any of your seiz ure medicines unless instructed by your doctor or health resident caregiver. Stopping your me dicine suddenly can increase [...] dying should be reported to your health resident caregiver right away. Women who become while using this medicine may enroll in the [place] Antiep ileptic Drug Registry by calling . This registry collects informatio n about the safety of antiepileptic drug use during . NOTE:This sheet is a summary. It may not cover all possible information. If you have questi ons about this medicine, talk to your doctor, pharmacist, or health care provider. Copyright 2019 [employer] Morphine sustained-release tablets Brand Names: ARYMO ER, [...] information carefully each time. Talk to your welt wheeler regarding the use of this medicine in children. Special care may be needed. What side effects may I notice from receiving this medicine? Side effects that you should report to your doctor or health resident caregiver as soon as p ossible: allergic reactions [...] attention (report to your doctor or health resident caregiver if they continue or are bothersome): constipation [...] to an official disposal site. Contact the [facility] at [phone] or your [facility] to find a site. If you [...] this medicine? Tell your doctor or health resident caregiver if your pain does not go away, [...] pharmacist, or health care provider. Copyright 2019 [employer] Nicotine skin patches Brand Names: Habitrol, Nicoderm CQ What is this medicine? NICOTINE (TYLER oh [...] the same area again. Talk to your welt wheeler regarding the use of this medicine in children. Special care may be needed. What side effects may I notice from receiving this medicine? Side effects that you should report to your doctor or health resident caregiver as soon as p ossible: allergic reactions [...] attention (report to your doctor or health resident caregiver if they continue or are bothersome): diarrhea [...] only last for a few days. Call yo doctor or health resident caregiver if skin redness does not go away after 4 days, if your skin swells, or if you get a rash. If you are a diabetic and you quit smoking, the effects of insulin may be increased and you may need to reduce your insulin dose. Check with your doctor or health resident caregiver ab out how you should adjust your [...] pharmacist, or health care provider. Copyright 2019 [employer] Olanzapine tablets Brand Name: Zyprexa What is [...] advice of your doctor or health care professionanneliese l. A special MedGuide will be given to you by the pharmacist with each new prescription and re fill. Be sure to read this information carefully each time. Talk to your welt wheeler regarding the use of this medicine in children. While this drug m ay be prescribed for children as young as 13 years for selected conditions, precautions do a pply. What side effects may I notice from receiving this medicine? Side effects that you should report to your doctor or health resident caregiver as soon as p ossible: allergic reactions [...] attention (report to your doctor or health resident caregiver if they continue or are bothersome): changes [...] this medicine? Visit your doctor or health resident caregiver for regular checks on your progress. It may b e several weeks before you see the full effects of this medicine. Notify your doctor or heal th resident caregiver if your symptoms get worse, if you have new symptoms, if you are having an unusual effect from this medicine, or if you feel out of control, very discouraged or th ink you might harm yourself or others. Do not suddenly stop taking this medicine. You may need to gradually reduce the dose. Ask y our doctor or health resident caregiver for advice. You may get dizzy or drowsy. Do not drive, use machinery, or do anything that needs mental alertness until you know how this medicine affects you. Do not stand or sit up quickly, alethea tiffanie if you are an older patient. This reduces the risk of dizzy or fainting spells. Avoid alcoholic drinks. Alcohol can increase dizziness and drowsiness with olanzapine. Do not treat yourself for colds, diarrhea or allergies without asking your doctor or health resident caregiver for advice. Some ingredients can increase possible side effects. Your mouth may get dry. Chewing sugarless gum or sucking hard candy, and drinking plenty of water will help. This medicine can reduce the response of your body to heat or cold. Dress oil furnace installer cold weat her and stay hydrated in [...] have special instructions. Ask your doctor or ph armacist if these directions are for you: [...] information carefully each time. Talk to your welt wheeler regarding the use of this medicine in children. Special care may be needed. What side effects may I notice from receiving this medicine? Side effects that you should report to your doctor or health resident caregiver as soon as p ossible: allergic reactions [...] attention (report to your doctor or health resident caregiver if they continue or are bothersome): constipation [...] to an official disposal site. Contact the [facility] at [phone] or your [facility] to find a site. If you cannot return the medicine, flush it down the toilet. Do not use the medicine after the expiration date. What should I tell my health care provider before I take this medicine? They need to know if you have any of these conditions: Sheffield's disease brain tumor head injury heart disease [...] this medicine? Tell your doctor or health resident caregiver if your pain does not go away, [...] avoid any side effects. Talk to your welt wheeler regarding the use of this medicine in children. Special care may be needed. What side effects may I notice from receiving this medicine? Side effects that you should report to your doctor or health resident caregiver as soon as p ossible: allergic reactions [...] attention (report to your doctor or health resident caregiver if they continue or are bothersome): confusion, [...] ta lk to your doctor or health resident caregiver. You may need to miss a dose [...] this medicine? Visit your doctor or health resident caregiver for regular checks on your progress. If [...] have surgery, tell your doctor or health resident caregiver that you hav e taken this medicine within the last twelve months. Ask your doctor or health resident caregiver about your diet. You may need to lower the amou nt of salt you eat. This medicine may affect blood sugar levels. If you have diabetes, check with your doctor o r health resident caregiver before you change your diet or the dose of your diabetic medicine . NOTE:This sheet is a summary. It may not cover all possible information. If you have questi ons about this medicine, talk to your doctor, pharmacist, or health care provider. Copyright 2019 [employer] Senna tablets or capsules Brand Names: Black aught, Ex-Lax, Cari-pily, Perdiem, Senexon, Senna, SennaGen, Senna-Lax, [...] e often than directed. Talk to your welt wheeler regarding the use of this medicine in children. While this medici ne may be prescribed for children as young as 2 years for selected conditions, precautions d o apply. What side effects may I notice from receiving this medicine? Side effects that you should report to your doctor or health resident caregiver as soon as p ossible: diarrhea muscle weakness nausea, vomiting unusual weight loss Side effects that usually do not require medical attention (report to your doctor or health resident caregiver if they continue or are bothersome): bloating [...] returning, check with yo doctor or health resident caregiver. NOTE:This sheet is a summary. It may not cover all possible information. If you have questi ons about this medicine, talk to your doctor, pharmacist, or health care provider. Copyright 2019 [employer] Tramadol tablets Brand Name: Ultram What [...] information carefully each time. Talk to your welt wheeler regarding the use of this medicine in children. Special care may be needed. What side effects may I notice from receiving this medicine? Side effects that you should report to your doctor or health resident caregiver as soon as p ossible: allergic reactions [...] attention (report to your doctor or health resident caregiver if they continue or are bothersome): constipation [...] this medicine? Tell your doctor or health resident caregiver if your pain does not go away, [...] Do not take more medicine than directed. [facility] emergency for help if you have problems breathing or unusual sleepiness. You may get drowsy or dizzy. Do not drive, use machinery, or do anything that needs mental alertness until you know how this medicine affects you. Do not stand or sit up quickly, alethea lanay if you are an older patient. This reduces the risk of dizzy or fainting spells. Alcoh ol can increase or decrease the effects of this medicine. Avoid alcoholic drinks. You may have constipation. Try to have a bowel movement at least every 2 to 3 days. If you do not have a bowel movement for 3 days, call your doctor or health resident caregiver. Your mouth may get dry. Chewing sugarless [...] attachments cannot be sent through Care Everywhere.Sepsis ([place] )Sepsis, Understanding ([place])documented in this encounter Medications at Time of [...] Harpal Ray MD - 11/09 1429 PDT [facility] Service: Hospitalist Progress Note Pt: Sylvie [...] encounter as of 11/09/18-14:29 IMAGING: Reviewed in [facility], no new results. PROBLEM LIST Principal Problem: [...] over2 weeks #Depression/anxiety/PTSD: -11/03/18 Discussed patient with [facility] [phone]. She has a diagnosis of PTSD and [...] erHarpal kincaid MD - 06/2018 1200 PDT [facility] Service: Hospitalist Progress Note Pt: Sylvie [...] as able #Depression/anxiety/PTSD: -11/03/18 Discussed patient with [facility] [phone]. She has a diagnosis of PTSD and [...] care purp ose Shasha Ureña RN - 11/08 0444 PDTPatient still complains [...] check complete. Geovanna Flores RN Harpal Ray MD - 11/07/2018 1404 PDT [facility] Service: Hospitalist Progress Note Hospital Day: [...] and psychiat ry was consulted. Her psychiatry MANPOWER DEVELOPMENT SPECIALIST was also contacted and she was restarted [...] 11/07/18 0411 PROCALCITONI 0.10 Imaging: Reviewed in [facility], no new results. PROBLEM LIST Principal Problem: [...] as tolerated #Depression/anxiety/PTSD: -11/03/18 Discussed patient with [facility] [phone]. She has a diagnosis of PTSD and [...] not have perphenazine, I have discussed with wendy about any alternatives. They have recommended converting [...] nasal canula Harpal Fine MD 14:05 11/07/2018 Godwin Chambers MD - 11/07/2018 0806 PDTFormatting of this note might be different from the [facility] Service: PULMONOLOGY Progress Note Date of Admission: 10/24/2018 Reason for Consultation: Hypoxemia Requesting Physician: Dr Pruett History Obtained From: Patient and chart review CHIEF COMPLAINT: Hip surgery, L HISTORY OF PRESENT ILLNESS History per Dr. Joseph on 8/24/19 The patient is a 48 y.o. female [...] TOTAL HIP; Surgeon: Miah Monique MD; Location: [facility] MAIN OR TOTAL HIP ARTHROPLASTY Left 2014 [place] Family History Problem Relation Age of Onset Stroke Mother Heart disease Father Cancer Father Ashley adam Neg Hx Social History Socioeconomic History Marital [...] on HFNC at 25LPM, 29% FiO2. July oxymask. - would complete 7 days of [...] MIGDALIA Elizalde - 11/06/2018 1009 PDT . [facility] Service: Orthopedic Surgery Progress Note Hospital [...] MIGDALIA Thompson has created this entry using [employer] e and [employer] macros. The entry has been reviewed and there may still exist sound alike word errors. Kush Miller MD - 11/06/2018 0802 PDT [facility] Service: Hospitalist Progress Note Pt: Sylvie [...] agitaitation and psychiatry was consulted. Her psychiatry MANPOWER DEVELOPMENT SPECIALIST was also contacted and she was restarted [...] 0839 130/70 61 20 95 % 11/05/18 08 130/70 36.9 C (98.5 F) Oral 65 18 97 % I&O Detailed Table: Intake/Output Summary (Last 24 hours) at 11/06/2018 08 Last data filed at 11/06/2018 0420 Gross [...] PLT 529* 505* 421* Recent Labs Lab 11/06/1840811/05/18 0405 11/04/18 0353 NA 142 141 145 K 3.9 4.5 4.5 CL 102 101 102 CO2 34* 34* 35* BUN 34* 31* 40* CALCIUM 8.8 8.4* 8.4* Phosphorus: Lab Results Component Value Date PHOS 3.4 10/31/2018 No results for input(s): LABALBU in the last 168 hours. Recent Labs Lab 11/06/1840811/05/18 0405 11/04/18 0353 MG 2.7* 2.6* 2.7* No results for input(s): AMYLASE in the last 168 hours. No results for input(s): PHART, PO2ART, EYO3XLZ, Q7ENNJIL, BEART in the last 168 hours. No results for input(s): APTT, INR, PTT in the last 168 hours. No results for input(s): TSH in the last 168 hours. Invalid input(s): T3FREE, FREET4 No results for input(s): TROPONINT in the last 168 hours. Invalid input(s): CKTOTAL, TROPONINI, CKMBINDEX Microbiology Results (72 hrs) Procedure Component Value Units Date/Time Culture, Respiratory, Lower, Smear [[id number]] Collected: 10/29/181728 Order Status: Completed Lab Status: [...] HELD 48 HOURS. RESULT Testing performed at [facility], [address] [place] [id number] Comment: Testing performed at [facility], [address] [place] [address] RADIOLOGY: Recent Results (from the past 360 [...] study. Depression/anxiety/ptsd - 11/03/18 Discussed patient with [facility] [phone]. She has a diagnosis o f PTSD [...] and managing patient and counseling/coordination. Dictation software, Nexvet, used which may contain error for similar sounding words even af ter review. Personal communication requested for any clarification. Portions of this chart may have been copied from previous notes for continuity of care purp ose iTerri christian RN - 0 11/05/2018 1819 PDTEnd of shift review complete. Electronically signed by Terri Montes De Oca RN a t 11/05/2018 18:19 PDTYoshi, MIGDALIA Swan - 11/05/2018 1052 PDT [facility] Service: Orthopedic Surgery Progress Note Hospital [...] MIGDALIA Thompson has created this entry using [employer] e and [employer] macros. The entry has been reviewed and there may still exist sound alike word errors. Kush Miller MD - 11/05/2018 0944 PDT [facility] Service: Hospitalist Progress Note Pt: Sylvie [...] agitaitation and psychiatry was consulted. Her psychiatry MANPOWER DEVELOPMENT SPECIALIST was also contacted and she was restarted [...] hours. No results for input(s): PHART, PO2ART, NXV3UWM, V4MKZGBP, BEART in the last 168 hours. No results for input(s): APTT, INR, PTT in the last 168 hours. No results for input(s): TSH in the last 168 hours. Invalid input(s): T3FREE, FREET4 No results for input(s): TROPONINT in the last 168 hours. Invalid input(s): CKTOTAL, TROPONINI, CKMBINDEX Microbiology Results (72 hrs) Procedure Component Value Units Date/Time Culture, Respiratory, Lower, Smear [[id number]] Collected: 10/29/181728 Order Status: Completed Lab Status: [...] HELD 48 HOURS. RESULT Testing performed at [facility], [address] [place] [address] Comment: Testing performed at [facility], [address] [place] [id number] RADIOLOGY: Recent Results (from the past 360 [...] study. Depression/anxiety/ptsd - 11/03/18 Discuss[address] patient with [facility] [phone]. She has a diagnosis o f PTSD [...] and managing patient and counseling/coordination. Dictation software, [employer], used which may contain error for similar sounding words even af ter review. Personal communication requested for any clarification. Portions of this chart may have been copied from previous notes for continuity of care purp ose omana Vera RN - 0 11/05/2018 0629 PDTPt has been stable and pleasant throuhghout shift. Cooperative with all ca re. High flow O2 requirements have remained unchanged from previous shift. Chart check completed. hanice Guerrier RN - 11/04/2018 1756 PDTSepsis team signing off. Please call with any que stions/concerns. [phone]. Shanice Rahman RN Lala kumar RN - 11/04/2018 1716 PDTPt has been [...] review complete. David Webster Chaplain - 11/04/2018 1524 PDTChecked in w/RN. Pt lying on bed, awake. Chp intro'd self, asked how pt doing. She said, "Doing fine, thanks for coming by." Chp explaine d availability days & nights if needed. Pt thanked p. Chaplain David Greeney or Donovan eason PA - 11/04/2018 1302 PDTFormatting of this note might be different from t anibal original. [facility] Service: Orthopedic Surgery Progress Note Hospital [...] MIGDALIA Thompson has created this entry using [employer]ognition [employer] e and [employer] macros. The entry has been reviewed and there may still exist sound alike word errors. Kush Miller MD - 11/04/2018 1150 PDT [facility] Service: Hospitalist Progress Note Pt: Sylvie Ramsey AGE/SEX: 48 y.o. female ROOM: 91/9119- : 1970 PCP: No Physician on file [...] hours. No results for input(s): PHART, PO2ART, IMS1XJQ, V7BEGJBI, BEART in the last 168 hours. No results for input(s): APTT, INR, PTT in the last 168 hours. No results for input(s): TSH in the last 168 hours. Invalid input(s): T3FREE, FREET4 No results for input(s): TROPONINT in the last 168 hours. Invalid input(s): CKTOTAL, TROPONINI, CKMBINDEX Microbiology Results (72 hrs) Procedure Component Value Units Date/Time Culture, Respiratory, Lower, Smear [[id number]] Collected: 10/29/181728 Order Status: Completed Lab Status: [...] HELD 48 HOURS. RESULT Testing performed at [facility], [address] [place] [address] Comment: Testing performed at [facility], [address] [place] [address] RADIOLOGY: Recent Results (from the past 360 [...] study. Depression/anxiety/ptsd - 11/03/[address] [facility] [phone]. She has a diagnosis o f PTSD [...] not have perphenazine, I have discussed with eliva butterfield about any alternatives. They have recommended [...] and managing patient and counseling/coordination. Dictation software, Nexvet, used which may contain error for similar [...] to have regu lar p.o. Intake. Per housing property manager note oxygenation is improving. 1. Pain in prosthetic joint, initial encounter ([facility]) 2. Mechanical complication of prosthetic knee implant, initial encounter ([facility]) 3. Mechanical instability of hip prosthesis ([facility]) 4. Shortness of breath 5. Acute respiratory failure with hypoxia ([facility]) Past Medical History: Diagnosis Date Anxiety Anxious depression Arthralgia Arthritis Asthma not using inhalers DDD (degenerative disc disease), lumbar Deliberate self-cutting history of Depression Heartburn Hemorrhage of gastrointestinal tract 2015 upper and lower due ulcers Morbid obesity with BMI of 50.0-59.9, adult ([facility]) Pain in prosthetic joint ([facility]) with instability Panic attacks states can [...] mL 30 mL Oral Nightly PRN Miah oMnique MD menthol (HALLS) lozenge 1 lozenge 1 [...] pulmonology specialis rosemarie Moreno 11/03/2018 Francoise Duarte R N - 11/03/2018 1039 Jesusita ball called this am at approx 0900. Pt breaking dishes, throwing full water pitcher, and yelling profanities at pt d/t therapist attempting to work with pt doing mobility exercises. Security, risk, pcc, stepdown fire investigation manager, primary md, and lead rn pre sent with bedside rn. Pt crying and yelling that she doesn't want to "be here". Per policy d isruptive/violent pt paperwork filled out. Situation and pt expectations reviewed by risk jaime arboleda fire investigation manager with pt. Sitter at bedside currently. ver Miranda PT - 11/03/2018 0835 PDTFormatting of this [...] the room, pt through breakfast tray at [facility]. Dada mares called by clinical staff educator. pt. also stated during session everything we have been doing for her is wrong. eon Calvin RETAIL ADVERTISING EXECUTIVE - 11/03/2018 0818 PDTPatient found to have High Flow Nasal Cannula out of nostrils and low o xygen saturations of 77%. Patient declined bipap, however let me place cannula in nostrils. Patient refused nebulizer treatment and stated she wants to get out of here. HFNC 60L 49% , Spo2 94% Kush Ge MD - 11/03/2018 0744 PDT [facility] Service: Hospitalist Progress Note Pt: Sylvie Ramsey AGE/SEX: 48 y.o. female ROOM: [facility]/9119- : 1970 PCP: No Physician on file [...] hours. No results for input(s): PHART, PO2ART, QPP4CLS, V1FJNIXT, BEART in the last 168 hours. No results for input(s): APTT, INR, PTT in the last 168 hours. No results for input(s): TSH, T3FREE in the last 168 hours. Invalid input(s): FREET4 No results for input(s): TROPONINT in the last 168 hours. Invalid input(s): CKTOTAL, TROPONINI, CKMBINDEX Microbiology Results (72 hrs) Procedure Component Value Units Date/Time Culture, Respiratory, Lower, Smear [[id number]] Collected: 10/29/181728 Order Status: Completed Lab Status: [...] HELD 48 HOURS. RESULT Testing performed at [facility], [address] [place] [address] Comment: Testing performed at [facility], [address] [place] [address] RADIOLOGY: Recent Results (from the past 360 [...] sleep study. Depression/anxiety/ptsd - Discussed patient with [facility] [phone]. She has a diagnosis of PTSD a [...] making capacity - consulted psychiatry. Appreciate recs. technology project manager to attempt to obtain more [...] and managing patient and counseling/coordination. Dictation software, Nexvet, used which may contain error for similar [...] to be transfer to a hospital in [place], or that she was goi ng to call the police and maxim the hospital. , lead nurse, human services case manager and risk notified. Pt remained calmed after risk talked to her. She continues on BiPAP and hi flow with meals. PRN norco given. Chart check complete. Sanjuanita Peters RN agosia, Carlo marleny, INDERJIT - 11/02/2018 1621 PDTFormatting of this note might be different from the origi nal. Patient pain is well controlled and is toe-touch weight bearing. She continues physical th erapy. Is on BiPAP at this time and continue to be managed by housing property manager and hospitalist . No new orthopedics events 1. Pain in prosthetic joint, initial encounter ([facility]) 2. Mechanical complication of prosthetic knee implant, initial encounter ([facility]) 3. Mechanical instability of hip prosthesis ([facility]) 4. Shortness of breath 5. Acute respiratory failure with hypoxia ([facility]) Past Medical History: Diagnosis Date Anxiety Anxious depression Arthralgia Arthritis Asthma not using inhalers DDD (degenerative disc disease), lumbar Deliberate self-cutting history of Depression Heartburn Hemorrhage of gastrointestinal tract 2015 upper and lower due ulcers Morbid obesity with BMI of 50.0-59.9, adult ([facility]) Pain in prosthetic joint (HCC) with [...] mg 0.25-1 mg Intravenous Q2H PRN Miah seweney MD 1 mg at 10/25/18 0230 hydrOXYzine [...] weightbearing Continue DVT prophylaxis Continue hospitalist and housing property manager management for comorbidities plan will be to eventua lly go to rehab or SNF once cleared by specialist Emilio Moreno 11/02/2018 oses Valderrama, PT - 11/02/2018 1259 PDT 11/02/18 1259 PT Visit Summary PT Visit Type Missed Visit (patient unavailable) (Tele psych consult in progress) Next Visit Information 11/02, LTHA, 2PA Kush Miller MD - 11/02/2018 0744 PDT [facility] Service: Hospitalist Progress Note Pt: Sylvie Ramsey AGE/SEX: 48 y.o. female ROOM: [facility] : 1970 PCP: No Physician on file [...] Behavior is normal. LABS: Recent Labs Lab 11/02/1840711/01/1841610/31/18 0414 10/28/18 0835 WBC 19.10* 14.67* 13.03* < > 15.60* HGB 10.8* 11.1* 10.8* < > 11.1* HCT 32.7* 33.3* 32.1* < > 33.1* PLT 390 380 356 < > 296 MONOPCT -- -- -- -- 2.27 < > = values in this interval not displayed. Recent Labs Lab 11/02/18 0408 11/01/187 10/31/18 1815 10/31/18 0414 NA 139 140 -- 141 K 3.6 4.0 3.8 3.6 CL 97* 100 -- 101 CO2 38* 36* -- 35* BUN 31* 24 -- 20 CALCIUM 8.7 8.5 -- 8.1* Phosphorus: Lab Results Component Value Date PHOS 3.4 10/31/2018 No results for input(s): LABALBU in the last 168 hours. Recent Labs Lab 11/02/1840711/01/18 0417 10/31/18 0414 MG 2.8* 2.7* 2.3 No results for input(s): AMYLASE in the last 168 hours. No results for input(s): PHART, PO2ART, JNW1GBY, B3NKRAGW, BEART in the last 168 hours. No results for input(s): APTT, INR, PTT in the last 168 hours. No results for input(s): TSH, T3FREE in the last 168 hours. Invalid input(s): FREET4 No results for input(s): TROPONINT in the last 168 hours. Invalid input(s): CKTOTAL, TROPONINI, CKMBINDEX Microbiology Results (72 hrs) Procedure Component Value Units Date/Time Culture, Respiratory, Lower, Smear [[id number]] Collected: 10/29/181728 Order Status: Completed Lab Status: [...] HELD 48 HOURS. RESULT Testing performed at [facility], [address] [place] [id number] Comment: Testing performed at [facility], [address] [place] [address] RADIOLOGY: Recent Results (from the past 360 [...] making capacity - consulted psychiatry. Appreciate recs. technology project manager to attempt to obtain more [...] and managing patient and counseling/coordination. Dictation software, Nexvet, used which may contain error for similar [...] continues to be managed by hospitalist and housing property manager and is currently on BiPAP 1. Pain in prosthetic joint, initial encounter ([facility]) 2. Mechanical complication of prosthetic knee implant, initial encounter ([facility]) 3. Mechanical instability of hip prosthesis ([facility]) 4. Shortness of breath 5. Acute respiratory failure with hypoxia ([facility]) Past Medical History: Diagnosis Date Anxiety Anxious depression Arthralgia Arthritis Asthma not using inhalers DDD (degenerative disc disease), lumbar Deliberate self-cutting history of Depression Heartburn Hemorrhage of gastrointestinal tract 2015 upper and lower due ulcers Morbid obesity with BMI of 50.0-59.9, adult ([facility]) Pain in prosthetic joint ([facility]) with instability Panic attacks states can [...] Miah Monique MD 10 mg at 10/31/18 205 lactulose liquid 30 mL 30 mL Oral [...] Moreno 11/01/2018 Shoaib Marvin, RD - 11/01/2018 1117 PDT 11/01/18 1111 [...] Miller MD - 0 11/01/2018 0736 PDT [facility] Service: Hospitalist Progress Note Pt: Sylvie Ramsey AGE/SEX: 48 y.o. female ROOM: 91/9119- : 1970 PCP: No Physician on file [...] displayed. Recent Labs Lab 11/01/187 10/31/18 1815 10/31/18 0414 10/30/18 0418 NA 140 -- 141 141 K 4.0 3.8 3.6 3.9 CL 100 -- 101 103 CO2 36* -- 35* 32 BUN 24 -- 20 19 CALCIUM 8.5 -- 8.1* 7.9* Phosphorus: Lab Results Component Value Date PHOS 3.4 10/31/2018 No results for input(s): LABALBU in the last 168 hours. Recent Labs Lab 11/01/1841610/31/184 10/30/18417 MG 2.7* 2.3 2.3 No results for input(s): AMYLASE in the last 168 hours. No results for input(s): PHART, PO2ART, NIC4AEK, H2ZMJFAG, BEART in the last 168 hours. No results for input(s): APTT, INR, PTT in the last 168 hours. No results for input(s): TSH, T3FREE in the last 168 hours. Invalid input(s): FREET4 No results for input(s): TROPONINT in the last 168 hours. Invalid input(s): CKTOTAL, TROPONINI, CKMBINDEX Microbiology Results (72 hrs) Procedure Component Value Units Date/Time Culture, Respiratory, Lower, Smear [[id number]] Collected: 10/29/181728 Order Status: Completed Lab Status: [...] HELD 48 HOURS. RESULT Testing performed at [facility], [address] [place] [address] Comment: Testing performed at [facility], [address] [place] [address] RADIOLOGY: Recent Results (from the past 360 [...] and managing patient and counseling/coordination. Dictation software, Nexvet, used which may contain error for similar sounding words even af ter review. Personal communication requested for any clarification. Portions of this chart may have been copied from previous notes for continuity of care purp ose Juan Gonzales RN - 11/01/2018 0652 PDTPt remains mainly [...] 1. Pain in prosthetic joint, initial encounter ([facility]) 2. Mechanical complication of prosthetic knee implant, initial encounter ([facility]) 3. Mechanical instability of hip prosthesis ([facility]) 4. Shortness of breath 5. Acute respiratory failure with hypoxia ([facility]) Past Medical History: Diagnosis Date Anxiety [...] injection 40 mg 40 mg Subcutaneous Daily uYki Pruett MD 40 mg at 10/31/18 0845 [...] dressing clean dry and intact Ankle strength 5/ 48 y/o female s/p left total hip arthroplasty revision pain medications prn Touch down weight bearing dvt prophylaxis continue hospital and pulm care No change in ortho plan Emilio Moreno 10/31/2018 irkit, Sara Gruber RN - 0823 PDTChart reviewed. 8:2 3 PDTKush Ge MD - 10/31/2018 0807 PDTFormatting of this note might be different fro m the original. [facility] Service: Hospitalist Progress Note Pt: Sylvie Ramsey AGE/SEX: 48 y.o. female ROOM: [facility]/9119- : 1970 PCP: No Physician on file [...] -- -- -- 2.27 Recent Labs Lab 10/31/184 10/30/188 10/29/18 0439 NA 141 141 138 K 3.6 3.9 [...] hours. No results for input(s): PHART, PO2ART, WSF7CSZ, B7MPDDRV, BEART in the last 168 hours. No results for input(s): APTT, INR, PTT in the last 168 hours. No results for input(s): TSH, T3FREE in the last 168 hours. Invalid input(s): FREET4 No results for input(s): TROPONINT in the last 168 hours. Invalid input(s): CKTOTAL, TROPONINI, CKMBINDEX Microbiology Results (72 hrs) Procedure Component Value Units Date/Time Culture, Respiratory, Lower, Smear [[id number]] Collected: 10/29/181728 Order Status: Completed Lab Status: [...] HELD 48 HOURS. RESULT Testing performed at [facility], [address] [place] [address] Comment: Testing performed at [facility], [address] [place] [address] RADIOLOGY: Recent Results (from the past 360 [...] coordination of care, seeing and managing migdalia bozenaanette, review of data, coordination with staff, coordination with involved consultants, and including any scheduled multidisciplinary rounding focused on the patient with 50 percent or more spent seeing and managing patient and counseling/coordination. Dictation software, Nexvet, used which may contain error for similar [...] complication of prosthetic knee implant, initial encounter ([facility]) 3. Mechanical instability of hip prosthesis (HCC) 4. Shortness of breath 5. Acute respiratory failure with hypoxia ([facility]) Past Medical History: Diagnosis Date Anxiety [...] Yuki Courtney MD - 10/30/2018 0758 PDT [facility] Service: Hospitalist Progress Note Hospital Day: [...] 341 MCV 90.7 90.6 Recent Labs Lab 10/30/1841710/29/1843810/28/18 0835 NA 141 138 -- 136 K [...] for input(s): IRON, TIBC, PCTSAT, FERRITIN, TSH, [id number], FOLATE in the last 168 hours. Recent [...] continue nicotine patch. Deconditioning. Physical therapy recommended alf facility when stable. Plan discussed with patient. All questions were answered . All data was reviewed. Disposition: Inpatient Code Status: Full Code Yuki Pruett MD 10/30/2018 8:02 This entry has been created using [employer] software and [employer]. The entry has been reviewed and there may still exist sound alike word errors. Kanwal Diego RN - 10/30/2018 0648 PDTAttempted to put patient on high flow 02 x2 attempts. Was unable t o keep 02 above 80's placed patient back on biPAP. Otherwise VSS and hourly rounding unevent ful. Chart check complete. RussellVíctor, HYDRAULIC REPAIRER - 1931 PDT [facility] Service: Orthopedic Surgery Progress Note 10/29/2018 [...] Status: Full Code WENCESLAO De Guzman 10/29/2018 ianna Wasserman RN - 10/29/2018 1842 PDTRemains on Bipap [...] Radha danielle to see this pt today. [facility] and report any new findings. Gianna Wasserman RN Yuki Courtney MD - 10/29/2018 0739 PDT [facility] Service: Hospitalist Progress Note Hospital Day: [...] for input(s): IRON, TIBC, PCTSAT, FERRITIN, TSH, [id number], FOLATE in the last 168 hours. Recent [...] 7:39 This entry has been created using [employer] software and [employer]. The entry has been reviewed and there may still exist sound alike word errors. Víctor Wells A RNP - 10/28/2018 1752 PDT [facility] Service: Orthopedic Surgery Progress Note 10/28/2018 [...] ARTHROPLASTY P)continue medical care per hospitalist and housing property manager. Weight bear as tolerated LLE. Continue PT and OT as tolerated d/t sob Code Status: Full Code WENCESLAO De Guzman 10/28/2018 Naveen Lewis RPH - 0927 PDT Clinical Pharmacy Note: Piperacillin-Tazobactam [...] Yuki Courtney MD - 10/28/2018 0821 PDT [facility] Service: Hospitalist Progress Note Hospital Day: LOS: 4 days SUBJECTIVE Patient Summary: 48-year-old female with history of anxiety, depression, PTSD, morbid obesity and asthma admitted with left posterior total hip arthroplasty revision on October 24 she remained hospitalized for pain control and difficulty with ambulation. Hospitalist pieter sulted for shortness of breath. Events Overnight: [...] for input(s): IRON, TIBC, PCTSAT, FERRITIN, TSH, [id number], FOLATE in the last 168 hours. Recent [...] 10:29 This entry has been created using [employer] software and [employer]. The entry has been reviewed and there may still exist sound alike word errors. Souleymane Dyson RN - 10/28/2018 0502 PDTPt continues to be on 13L via oxy mask sat. 93%. Lung sound s are coarse, with crackles and wheezes throughout. Pt c/o left hip pain. PRN pain med gi lorenza. Chart check complete. Electronically signed by Diego Galeano RN at 9 5:38 Harpal Ray MD - 10/27/2018 1914 PDT [facility] Adult Hospitalist Event Note Hospital Day: [...] that developed this am after returning from [facility]. Denies dizziness, nausea, cough, chest pain, abdominal pain vomiting or headache 1. Pain in prosthetic joint, initial encounter ([facility]) 2. Mechanical complication of prosthetic knee implant, initial encounter ([facility]) 3. Mechanical instability of hip prosthesis (HCC) Past Medical History: Diagnosis Date Anxiety [...] and a wheeze, called LUIS A Rowe neb tx ordered. New IV placed Chart check [...] Community Support Services Current Outpt/Agency/Support Groups: (P) penitentiary (specify) Community Agency Name: Other Resources: Discharge [...] 1. Pain in prosthetic joint, initial encounter ([facility]) 2. Mechanical complication of prosthetic knee implant, initial encounter ([facility]) 3. Mechanical instability of hip prosthesis ([facility]) Past Medical History: Diagnosis Date Anxiety Anxious depression Arthralgia Arthritis Asthma not using inhalers DDD (degenerative disc disease), lumbar Deliberate self-cutting history of Depression Heartburn Hemorrhage of gastrointestinal tract 2015 upper and lower due ulcers Morbid obesity with BMI of 50.0-59.9, adult ([facility]) Pain in prosthetic joint ([facility]) with instability Panic attacks states can [...] Emilio Moreno 10/25/2018 Cassie Richter RN - 043 PDTEnd of shift chart check complete. Cassie Merlos RN 10/25/2018 9543 documented in this encoun ter Plan of Treatment + +--------+ + + | Name | Priori | Associated Diagnoses | Order Schedule | | | ty | | | + +--------+ + + | Referral to Home Health - | Routin | Pain in prosthetic | Ordered: 11/09/2018 | | OUTPATIENT | e | joint, initial | | | | | encounter ([facility]) | | | | | Mechanical | | | | | complication of | | | | | prosthetic knee | | | | | implant, initial | | | | | encounter ([facility]) | | | | | Mechanical | | | | | instability of hip | | | | | prosthesis ([facility]) | | | | | Shortness of breath | | | | | Morbid obesity | | | | | (HCC) | [...] | | | | encounter ([facility]) | results section. | | | | | Mechanical | | | | | | complication of | | | | | | prosthetic knee | | | | | | implant, initial | | | | | | encounter ([facility]) | | + +--------+ + + + | CULTURE, TISSUE, | Routin | 10/24/2018 | Pain in prosthetic | Results for this | | SMEAR, WITH | e | 16:41 PDT | joint, initial | procedure are in the | | ANAEROBES | | | encounter ([facility]) | results section. | | | | | Mechanical | | | | | | complication of | | | | | | prosthetic knee | | | | | | implant, initial | | | | | | encounter ([facility]) | | + +--------+ + + [...] Needs | | | | | | Strkimberlye | | | r and | | [...] at | | | | | | L, [address] [facility] | | | | | | [place] | | | | | | [address] | | | | + + + + + + + + | Specimen | + + | Blood | + + + + + + + | Performing | Address | City/State/Zipcode | Phone Number | | Organization | | | | + + + + + | [facility] | [address] | [place] [address] | [phone] | + + + + + Magnesium [...] [place], | | | | | | [place] [address] | | | | + + + + + + + + | Specimen | + + | Blood | + + + + + + + | Performing | Address | City/State/Zipcode | Phone Number | | Organization | | | | + + + + + | [facility] | [address] | [place] [address] | [phone] | + + + + + Basic [...] | >60Comment: GFR <60: | >60 | [facility] | | | GFR | CHRONIC [...] | | | | | performed at [facility], [address] | | | | | | [facility], | | | | | | [place] [address] | | | | + + + + + + + + | Specimen | + + | Blood | + + + + + + + | Performing | Address | City/State/Zipcode | Phone Number | | Organization | | | | + + + + + | [facility] | [address] | [place] [address] | [phone] | + + + + + CBC with Differential (11/08/2018 3:56 PDT) + + + + + + | Component | Value | Ref Range | Performed | Pathologist | | | | | At | Signature | + + + + + + | WBC | 14.86 (H) | 3.80 - 11.00 | OMAR | | | | | K/uL | [...] | | | Absolute | performed at [facility], [address] | K/uL | LABORATORY | | | | [place], | | | | | | [place] [address] | | | | + + + + + + + + | Specimen | + + | Blood | + + + + + + + | Performing | Address | City/State/Zipcode | Phone Number | | Organization | | | | + + + + + | [facility] | [address] | [place] [address] | [phone] | + + + + + Magnesium (11/08/2018 3:56 PDT) + + + + + + | Component | Value | Ref Range | Performed | Pathologist | | | | | At | Signature | + + + + + + | Magnesium | 2.7 (H)Comment: Testing | 1.7 - 2.4 mg/dL | [facility] | | | | performed at [facility], [address] | | LABORATORY | | | | [place], | | | | | | [place] [address] | | | | + + + + + + + + | Specimen | + + | Blood | + + + + + + + | Performing | Address | City/State/Zipcode | Phone Number | | Organization | | | | + + + + + | [facility] | [address] | [place] [address] | [phone] | + + + + + Basic [...] 8.1 (L) | 8.5 - 10.5 | [facility] | | | | | mg/dL | LABORATORY | | + + + + + + | Estimated | >60Comment: GFR <60: | >60 | [facility] | | | GFR | CHRONIC [...] | | | | | performed at [facility], [address] | | | | | | [facility], | | | | | | [place] [address] | | | | + + + + + + + + | Specimen | + + | Blood | + + + + + + + | Performing | Address | City/State/Zipcode | Phone Number | | Organization | | | | + + + + + | [facility] | [address] | [place] [address] | [phone] | + + + + + CBC [...] at | | | | | | [facility], [address] | | | | | | [place] | | | | | | [address] | | | | + + + + + + + + | Specimen | + + | Blood | + + + + + + + | Performing | Address | City/State/Zipcode | Phone Number | | Organization | | | | + + + + + | [facility] [facility] | [address] | [place] [address] | [phone] | + + + + + Magnesium (11/07/2018 4:11 PDT) + + + + + + | Component | Value | Ref Range | Performed | Pathologist | | | | | At | Signature | + + + + + + | Magnesium | 2.5 (H)Comment: Testing | 1.7 - 2.4 mg/dL | [facility] | | | | performed at [facility], [address] | | LABORATORY | | | | [address], | | | | | | [place] [address] | | | | + + + + + + + + | Specimen | + + | Blood | + + + + + + + | Performing | Address | City/State/Zipcode | Phone Number | | Organization | | | | + + + + + | [facility] | [address] | [place] [address] | [phone] | + + + + + Basic [...] | | | | | performed at [facility], [address] | | | | | | [place] [place], | | | | | | [place] [address] | | | | + + + + + + + + | Specimen | + + | Blood | + + + + + + + | Performing | Address | City/State/Zipcode | Phone Number | | Organization | | | | + + + + + | [facility] | [address] | [place] [address] | [phone] | + + + + + Procalcitonin [...] | | | | | | at [facility];[address] | | | | | | [place] [address] | | | | + + + + + + + + | Specimen | + + | Blood | + + + + + + + | Performing | Address | City/State/Zipcode | Phone Number | | Organization | | | | + + + + + | [facility] | [address] | [place] [address] | [phone] | + + + + + CBC [...] at | | | | | | L, [address] [facility] | | | | | | [place] | | | | | | [address] | | | | + + + + + + + + | Specimen | + + | Blood | + + + + + + + | Performing | Address | City/State/Zipcode | Phone Number | | Organization | | | | + + + + + | [facility] | [address] | [place] [address] | [phone] | + + + + + Magnesium [...] | | | | | [place] [address] | | | | + + + + + + + + | Specimen | + + | Blood | + + + + + + + | Performing | Address | City/State/Zipcode | Phone Number | | Organization | | | | + + + + + | [facility] | [address] | [place] [address] | [phone] | + + + + + Basic [...] | | | | | performed at [facility], [address] | | | | | | [facility], | | | | | | [place] [address] | | | | + + + + + + + + | Specimen | + + | Blood | + + + + + + + | Performing | Address | City/State/Zipcode | Phone Number | | Organization | | | | + + + + + | [facility] | [address] | [place] [address] | [phone] | + + + + + CBC [...] at | | | | | | [facility], [address] [facility] | | | | | | [place] | | | | | | [address] | | | | + + + + + + + + | Specimen | + + | Blood | + + + + + + + | Performing | Address | City/State/Zipcode | Phone Number | | Organization | | | | + + + + + | [facility] | [address] | [place] [address] | [phone] | + + + + + Magnesium [...] | | LABORATORY | | | | [place], | | | | | | [place] [address] | | | | + + + + + + + + | Specimen | + + | Blood | + + + + + + + | Performing | Address | City/State/Zipcode | Phone Number | | Organization | | | | + + + + + | [facility] | [address] [facility] | [place] [address] | [phone] | + + + + + Basic [...] | | | | | performed at [facility], [address] | | | | | | [facility], | | | | | | [place] [address] | | | | + + + + + + + + | Specimen | + + | Blood | + + + + + + + | Performing | Address | City/State/Zipcode | Phone Number | | Organization | | | | + + + + + | [facility] | [address] | [place] [address] | [phone] | + + + + + CBC [...] at | | | | | | [facility], [address] [facility] | | | | | | [place] | | | | | | [address] | | | | + + + + + + + + | Specimen | + + | Blood | + + + + + + + | Performing | Address | City/State/Zipcode | Phone Number | | Organization | | | | + + + + + | [facility] | [address] | [place] [address] | [phone] | + + + + + Magnesium (11/04/2018 3:53 PDT) + + + + + + | Component | Value | Ref Range | Performed | Pathologist | | | | | At | Signature | + + + + + + | Magnesium | 2.7 (H)Comment: Testing | 1.7 - 2.4 mg/dL | [facility] | | | | performed at [facility], [address] | | LABORATORY | | | | [address], | | | | | | [place] [address] | | | | + + + + + + + + | Specimen | + + | Blood | + + + + + + + | Performing | Address | City/State/Zipcode | Phone Number | | Organization | | | | + + + + + | [facility] | [address] | [place] [address] | [phone] | + + + + + Basic [...] | | | | | performed at [facility], [address] | | | | | | [facility], | | | | | | [place] [address] | | | | + + + + + + + + | Specimen | + + | Blood | + + + + + + + | Performing | Address | City/State/Zipcode | Phone Number | | Organization | | | | + + + + + | [facility] | [address] | [place] [address] | [phone] | + + + + + CBC [...] | | | | | performed at [facility], [address] | | | | | | [address], | | | | | | [place] [address] | | | | + + + + + + + + | Specimen | + + | Blood | + + + + + + + | Performing | Address | City/State/Zipcode | Phone Number | | Organization | | | | + + + + + | [facility] | [address] | [place] [address] | [phone] | + + + + + Magnesium (11/03/2018 3:58 PDT) + + + + + + | Component | Value | Ref Range | Performed | Pathologist | | | | | At | Signature | + + + + + + | Magnesium | 2.7 (H)Comment: Testing | 1.7 - 2.4 mg/dL | [facility] | | | | performed at [facility], [address] | | LABORATORY | | | | [address], | | | | | | [place] [address] | | | | + + + + + + + + | Specimen | + + | Blood | + + + + + + + | Performing | Address | City/State/Zipcode | Phone Number | | Organization | | | | + + + + + | [facility] | [address] | [place] [address] | [phone] | + + + + + Basic [...] W | | | | | | [facility], | | | | | | [place] [address] | | | | + + + + + + + + | Specimen | + + | Blood | + + + + + + + | Performing | Address | City/State/Zipcode | Phone Number | | Organization | | | | + + + + + | [facility] | [address] | [place] [address] | [phone] | + + + + + CBC [...] at | | | | | | [facility], [address] [facility] | | | | | | [place] | | | | | | [address] | | | | + + + + + + + + | Specimen | + + | Blood | + + + + + + + | Performing | Address | City/State/Zipcode | Phone Number | | Organization | | | | + + + + + | [facility] | [address] | [place] [address] | [phone] | + + + + + Magnesium (11/02/2018 4:08 PDT) + + + + + + | Component | Value | Ref Range | Performed | Pathologist | | | | | At | Signature | + + + + + + | Magnesium | 2.8 (H)Comment: Testing | 1.7 - 2.4 mg/dL | [facility] | | | | performed at [facility], [address] | | LABORATORY | | | | [address], | | | | | | [place] [address] | | | | + + + + + + + + | Specimen | + + | Blood | + + + + + + + | Performing | Address | City/State/Zipcode | Phone Number | | Organization | | | | + + + + + | [facility] | [address] | [place] [address] | [phone] | + + + + + Basic [...] | >60Comment: GFR <60: | >60 | [facility] | | | GFR | CHRONIC [...] | | | | | performed at [facility], [address] | | | | | | [facility], | | | | | | [place] [address] | | | | + + + + + + + + | Specimen | + + | Blood | + + + + + + + | Performing | Address | City/State/Zipcode | Phone Number | | Organization | | | | + + + + + | [facility] | [address] | [place] [address] | [phone] | + + + + + CBC [...] at | | | | | | [facility], [address] [facility] | | | | | | [place] | | | | | | [address] | | | | + + + + + + + + | Specimen | + + | Blood | + + + + + + + | Performing | Address | City/State/Zipcode | Phone Number | | Organization | | | | + + + + + | [facility] | [address] | [place] [address] | [phone] | + + + + + Magnesium (11/01/2018 4:17 PDT) + + + + + + | Component | Value | Ref Range | Performed | Pathologist | | | | | At | Signature | + + + + + + | Magnesium | 2.7 (H)Comment: Testing | 1.7 - 2.4 mg/dL | [facility] | | | | performed at [facility], [address] | | LABORATORY | | | | [address], | | | | | | [place] [address] | | | | + + + + + + + + | Specimen | + + | Blood | + + + + + + + | Performing | Address | City/State/Zipcode | Phone Number | | Organization | | | | + + + + + | [facility] | [address] | [place] [address] | [phone] | + + + + + Basic [...] | | | | | performed at [facility], [address] | | | | | | [facility], | | | | | | [place] [address] | | | | + + + + + + + + | Specimen | + + | Blood | + + + + + + + | Performing | Address | City/State/Zipcode | Phone Number | | Organization | | | | + + + + + | [facility] | [address] | [place] [address] | [phone] | + + + + + ANTHONY Profile, Reflex (11/01/2018 4:17 PDT) + + + + + + | Component | Value | Ref Range | Performed | Pathologist | | | | | At | Signature | + + + + + + | ANTHONY Screen, | NegativeComment: Testing | Negative | [facility] | | | Qual | performed at [facility] | | LABORATORY | | | | [place], [address] | | | | | | [place] [address] | | | | + + + [...] | | | | | | both AR-3 and MPO-ANCA | | | | | [...] <9.0 | 0.0 - 9.0 U/mL | [facility] | | | dase | | | LABORATORY | | | Antibody | | | | | + + + + + + | Proteinase | <3.5Comment: Testing | 0.0 - 3.5 U/mL | [facility] | | | 3 Antibody | performed by [facility], | | LABORATORY | | | | [address] | | | | | | [facility] [address] | | | | + + + + + + + + | Specimen | + + | Blood | + + + + + + + | Performing | Address | City/State/Zipcode | Phone Number | | Organization | | | | + + + + + | [facility] | [address] | [place] [address] | [phone] | + + + + + Procalcitonin [...] | | | | | | at [facility];[address] [place] [address] | | | | | | [facility];[place] [address] | | | | + + + + + + + + | Specimen | + + | Blood | + + + + + + + | Performing | Address | City/State/Zipcode | Phone Number | | Organization | | | | + + + + + | [facility] | [address] | [place] [address] | [phone] | + + + + + Potassium (10/31/2018 18:15 PDT) + + + + + + | Component | Value | Ref Range | Performed | Pathologist | | | | | At | Signature | + + + + + + | K | 3.8Comment: Testing | 3.5 - 4.9 | [facility] | | | | performed at [facility];[address] | mmol/L | LABORATORY | | | | [address];[place] | | | | | | [address] | | | | + + + + + + + + | Specimen | + + | Blood | + + + + + + + | Performing | Address | City/State/Zipcode | Phone Number | | Organization | | | | + + + + + | [facility] | [address] | [place] [address] | [phone] | + + + + + CBC [...] LABORATORY | | | | performed at [facility], [address] | | | | | | [place], | | | | | | [place] [address] | | | | | | | | | | + + + + + + + + | Specimen | + + | Blood | + + + + + + + | Performing | Address | City/State/Zipcode | Phone Number | | Organization | | | | + + + + + | [facility] | [address] | [place] [address] | [phone] | + + + + + Magnesium (10/31/2018 4:14 PDT) + + + + + + | Component | Value | Ref Range | Performed | Pathologist | | | | | At | Signature | + + + + + + | Magnesium | 2.3Comment: Testing | 1.7 - 2.4 mg/dL | [facility] | | | | performed at [facility], [address] | | LABORATORY | | | | [place] [place], | | | | | | [place] [address] | | | | + + + + + + + + | Specimen | + + | Blood | + + + + + + + | Performing | Address | City/State/Zipcode | Phone Number | | Organization | | | | + + + + + | [facility] | [address] | [place] [address] | [phone] | + + + + + Basic [...] | | | | | performed at [facility], [address] | | | | | | [place] [place], | | | | | | [place] [address] | | | | + + + + + + + + | Specimen | + + | Blood | + + + + + + + | Performing | Address | City/State/Zipcode | Phone Number | | Organization | | | | + + + + + | [facility] | [address] | [place] [address] | [phone] | + + + + + Phosphorus (10/31/2018 4:14 PDT) + + + + + + | Component | Value | Ref Range | Performed | Pathologist | | | | | At | Signature | + + + + + + | Phosphorus | 3.4Comment: Testing | 2.3 - 4.8 mg/dL | [facility] | | | | performed at [facility], [address] | | LABORATORY | | | | [place], | | | | | | [place] [address] | | | | + + + + + + + + | Specimen | + + | Blood | + + + + + + + | Performing | Address | City/State/Zipcode | Phone Number | | Organization | | | | + + + + + | [facility] | [address] | [place] [address] | [phone] | + + + + + XR [...] LABORATORY | | | | performed at [facility], [address] | | | | | | [place], | | | | | | [place] [address] | | | | | | | | | | + + + + + + + + | Specimen | + + | Blood | + + + + + + + | Performing | Address | City/State/Zipcode | Phone Number | | Organization | | | | + + + + + | [facility] | [address] | [place] [address] | [phone] | + + + + + Magnesium (10/30/2018 4:18 PDT) + + + + + + | Component | Value | Ref Range | Performed | Pathologist | | | | | At | Signature | + + + + + + | Magnesium | 2.3Comment: Testing | 1.7 - 2.4 mg/dL | [facility] | | | | performed at [facility], [address] | | LABORATORY | | | | [place], | | | | | | [place] [address] | | | | + + + + + + + + | Specimen | + + | Blood | + + + + + + + | Performing | Address | City/State/Zipcode | Phone Number | | Organization | | | | + + + + + | [facility] | [address] | [place] [address] | [phone] | + + + + + Basic [...] | | | | | performed at [facility], [address] | | | | | | [place], | | | | | | [place] [address] | | | | + + + + + + + + | Specimen | + + | Blood | + + + + + + + | Performing | Address | City/State/Zipcode | Phone Number | | Organization | | | | + + + + + | [facility] | [address] | [place] [address] | [phone] | + + + + + Vitamin D, Deficiency Screen (25-Hydroxy) (10/30/2018 4:18 PDT) + + + + + + | Component | Value | Ref Range | Performed | Pathologist | | | | | At | Signature | + + + + + + | Vit D, | <12 (L)Comment: <20 | 30 - 150 ng/mL | [facility] | | | 25-Hydroxy | ng/mL [...] | | | | | performed at [facility], [address] | | | | | | [address], | | | | | | [place] [address] | | | | + + + + + + + + | Specimen | + + | Blood | + + + + + + + | Performing | Address | City/State/Zipcode | Phone Number | | Organization | | | | + + + + + | [facility] | [address] | [place] [address] | [phone] | + + + + + Culture, [...] RESULT | Testing performed at | | [facility] | | | | [facility], [address] [facility] | | LABORATORY | | | | [facility], [place] | | | | | | [id number]: Testing | | | | | | performed at [facility], [address] | | | | | | [facility], | | | | | | [place] [address] | | | | + + + + + + + + | Specimen | + + | Body Fluid | + + + + + + + | Performing | Address | City/State/Zipcode | Phone Number | | Organization | | | | + + + + + | [facility] | [address] | [place] [address] | [phone] | + + + + + ECHO [...] Testing | 1.7 - 2.4 mg/dL | [facility] | | | | performed at [facility], [address] | | LABORATORY | | | | [address] [place], | | | | | | [place] [address] | | | | + + + + + + + + | Specimen | + + | Blood | + + + + + + + | Performing | Address | City/State/Zipcode | Phone Number | | Organization | | | | + + + + + | [facility] | [address] | [place] [address] | [phone] | + + + + + Basic [...] | | | | | performed at [facility], [address] | | | | | | [address], | | | | | | [place] [address] | | | | + + + + + + + + | Specimen | + + | Blood | + + + + + + + | Performing | Address | City/State/Zipcode | Phone Number | | Organization | | | | + + + + + | [facility] | [address] | [place] [address] | [phone] | + + + + + CBC [...] at | | | | | | [facility], [address] [facility] | | | | | | [place] | | | | | | [address] | | | | + + + + + + + + | Specimen | + + | Blood | + + + + + + + | Performing | Address | City/State/Zipcode | Phone Number | | Organization | | | | + + + + + | [facility] | [address] | [place] [address] | [phone] | + + + + + VAS [...] | | | | | | at [facility];[address] [place] [address] | | | | | | [facility];[place] [address] | | | | + + + + + + + + | Specimen | + + | Blood | + + + + + + + | Performing | Address | City/State/Zipcode | Phone Number | | Organization | | | | + + + + + | [facility] | [address] | [place] [address] | [phone] | + + + + + B Type Natriuretic Peptide (10/28/2018 8:35 PDT) + + + + + + | Component | Value | Ref Range | Performed | Pathologist | | | | | At | Signature | + + + + + + | BNP | 101.07 (H)Comment: | 0 - 100 pg/mL | [facility] | | | | Testing performed at | | LABORATORY | | | | [facility];[address] | | | | | [address];[place] [address] | | | | + + + + + + + + | Specimen | + + | Blood | + + + + + + + | Performing | Address | City/State/Zipcode | Phone Number | | Organization | | | | + + + + + | [facility] | [address] | [place] [address] | [phone] | + + + + + Basic [...] | | | | | | MDRD VAMS traceable | | | | | | equation.Testing | | | | | | performed at [facility];[address] | | | | | | [facility];[place], [place] | | | | | | [address] | | | | + + + + + + + + | Specimen | + + | Blood | + + + + + + + | Performing | Address | City/State/Zipcode | Phone Number | | Organization | | | | + + + + + | [facility] | [address] | [place] [address] | [phone] | + + + + + CBC [...] + | Platelet | ADEQUATE | | [facility] | | | Estimate | | | LABORATORY | | + + + + + + | Comment | SLIDE SCANNED, AGREES | | [facility] | | | | WITH AUTOMATED | | LABORATORY | | | | RESULTS.Comment: Testing | | | | | | performed at [facility];[address] | | | | | | [address];[place] | | | | | | [address] | | | | + + + + + + + + | Specimen | + + | Blood | + + + + + + + | Performing | Address | City/State/Zipcode | Phone Number | | Organization | | | | + + + + + | [facility] | [address] | [place] [address] | [phone] | + + + + + CT [...] neoplastic | | | process. Signed by: Koirna Donovan, Gilles Sign Date/Time: | | | [...] Donovan Amit | | Sign Date/Time: 10/27/2018 5:16 PM [...] | | | | | performed at [facility];[address] | | | | | | [address];[place], [place] | | | | | | [address] | | | | + + + + + + + + | Specimen | + + | Blood | + + + + + + + | Performing | Address | City/State/Zipcode | Phone Number | | Organization | | | | + + + + + | [facility] | [address] | [place] [address] | [phone] | + + + + + CBC [...] [facility] | | | | performed at [facility], [address] | | LABORATORY | | | | [facility], | | | | | | [place] [address] | | | | + + + + + + + + | Specimen | + + | Blood | + + + + + + + | Performing | Address | City/State/Zipcode | Phone Number | | Organization | | | | + + + + + | [facility] | [address] | [place] [address] | [phone] | + + + + + ECG [...] [facility] | | | | performed at [facility], [address] | | LABORATORY | | | | [address], | | | | | | [place] [address] | | | | + + + + + + + + | Specimen | + + | Blood | + + + + + + + | Performing | Address | City/State/Zipcode | Phone Number | | Organization | | | | + + + + + | [facility] | [address] | [place] [address] | [phone] | + + + + + XR [...] + + | Performing | Address | City/State/[facility] | Phone Number | | Organization | [...] | | | abnormalities are grossly identified. Entry Level Drafter sections are | | | submitted in [...] interpretation was | | | performed by [employer], [facility] | | | [place], [place] (Laundry Routeman: Víctor Livingston M.D.; | | | CLIA#: [id number]).The technical component was performed by [employer] ([employer]) | | | [employer], [address] [place] [address] (Laundry Routeman: | | | Nadiya Sharma MD; CLIA# [id number]). Diagnostician: Víctor Livingston | | | MDPathologistElectronically [...] | | LABORATORY | | | | Blvd;[place] [address] | | | | + + + [...] RESULT | Testing performed at | | [facility] | | | | [address], [address] [facility] | | LABORATORY | | | | [place], [place] | | | | | | [id number]: Testing | | | | | | performed at [facility], [address] | | | | | [address] [place], [place] | | | | | | [address] | | | | + + + + + + + + | Specimen | + + | | + + + + + + + | Performing | Address | City/State/Zipcode | Phone Number | | Organization | | | | + + + + + | [facility] | [address] | [place] [address] | [phone] | + + + + + Culture, [...] | | [facility] | | | | [facility], [address] [facility] | | LABORATORY | | | | [place] | | | | | | [id number]: Testing | | | | | | performed at [facility], [address] | | | | | | [address], | | | | | | [place] [address] | | | | + + + + + + + + | Specimen | + + | Tissue | + + + + + + + | Performing | Address | City/State/Zipcode | Phone Number | | Organization | | | | + + + + + | [facility] | [address] | [place] [address] | [phone] | + + + + + Type [...] + + + | [facility] | [id number] | | [facility] | | | | | | LABORATORY | | + + + + + + | [facility] | Testing performed at | | [facility] | | | | [facility] | | LABORAT[address] | | | | [address];[place] [address] | | | | + + + + + + + + | Specimen | + + | Blood | + + + + + + + | Performing | Address | City/State/Zipcode | Phone Number | | Organization | | | | + + + + + | [facility] | [address] | [place] [address] | [phone] | + + + + + POCT Test, Urine, Qual (10/24/2018 13:27 PDT) + + + + + + | Component | Value | Ref Range | Performed | Pathologist | | | | | At | Signature | + + + + + + | HCG, | NEGATIVEComment: Testing | NEG | GENNY | | | Quantitativ | performed at [facility];[address] | | LABORATORY | | | [address] | [address];[place], [place] | | | | | | [id number] | | | | + + + + + + + + | Specimen | + + | | + + + + + + + | Performing | Address | City/State/Zipcode | Phone Number | | Organization | | | | + + + + + | [facility] | [address] | [place] [address] | [phone] | + + + + + documented [...] 1600, First dose on 11/06/18 | | PDT | | | | [...] | | | | First dose on [facility] 11/02/18 at | | | | | [...] | | | | | dose on [facility] 10/26/18 at 2100, Do | | | [...] 21:13 | | | | | on Tue10/30/18 at 2100, If | | PDT | [...] | | +---+---+ + +-------+ +--------+---+---+ | [facility] | Given | 10/25/19 | 1 Dose | | | | CONSULT, Starting Tue10/24/18 at | | 19 18:21 | | | | | 1317, Pre-op | | PDT | | | | [...]
--- OUTSIDE RECORDS SUMMARY | ~2018-12-31 | XMS | Encounter Summary ---
Demographics + + + | Address | [address] | | | [place] [address] | + + + | Home Phone | | + + + | Preferred Language | Unknown | + + + | Marital Status | | + + + | Jewish Affiliation | Unknown | + + + | Race | Unknown | + + + | Ethnic Group | Unknown | + + + Author + + + | Author | [facility] | | | and Silvestreana | + + + | Organization | [facility] [...] [place] | | | | | [address] | | + + + + + Care Team Providers + +------+ + | Care Printed Circuit Board Assembly Repairer Name | Role | Phone | + [...] | | | | encounter | | [address] Phone: | | | | | ([facility]) | | [phone] | | | | | Mechanical | | Fax: | | | | | complication | | [phone] | | | | | of | | | | | | | prosthetic | | | | | | | knee | | | | | | | implant, | | | | | | | initial | | | | | | | encounter | | | | | | | ([facility]) | | | | | | | Procedures | | | | | | | DC REVISE | | | | | | [...] + + | 10/24/ | Surgery | [facility] | Miah Monique | ARTHROPLASTY | | 2018 | | [facility] | MD [address] | REVISION TOTAL HIP | | | | OPER[address] | [address] | | | | | [address] | [place] [address] | | | | | [place], [place] | [phone] | | | | | [address] | | | | | | [phone] | | | +--------+---------+ + + + [...] APPEAR NORMAL BRIEF HISTORY OF PRESENTATION: Sylvie Ramsye is a 48 y.o. female who underwent a left total hip arthroplasty rev [facility], comprising of an acetabular component revision. [...] and psychiatry was consulted. He r psychiatry MANAGER [employer] was also contacted and she was restarted [...] room air #Depression/anxiety/PTSD: -11/03/18 Discussed patient with [facility] [phone]. She has a diagnosis of PTSD and [...] TOTAL HIP; Surgeon: Miah Monique MD; Location: [facility] MAIN OR TOTAL HIP ARTHROPLASTY Left 2014 [...] * No resolved hospital problems. * Disposition: custodial Condition: Fair Code Status: Full Code Follow up: Miah Monique MD [address] [place] [facility] [address] In 4 weeks For wound re-check and [...] more often than directed. Talk to your rug sample beveler regarding the use of this medicine in [...] should report to your doctor or health respiratory care practitioner as soon as p ossible: allergic [...] attention (report to your doctor or health respiratory care practitioner if they continue or are bothersome): [...] for pain, tell your doctor or health respiratory care practitioner if the pain lasts more than [...] if prescribed by your doctor or health respiratory care practitioner. Do not take aspirin or aspirin-like [...] pharmacist, or health care provider. Copyright 2019 [employer] Albuterol inhalation aerosol Brand Names: Proair HFA, [...] ou have any questions. Talk to your rug sample beveler regarding the use of this medicine in children. Special care may be needed. What side effects may I notice from receiving this medicine? Side effects that you should report to your doctor or health respiratory care practitioner as soon as p ossible: allergic [...] attention (report to your doctor or health respiratory care practitioner if they continue or are bothersome): [...] this medicine? Tell your doctor or health respiratory care practitioner if your symptoms do not improve. [...] more often than directed. Talk to your rug sample beveler regarding the use of this medicine in children. Special care may be needed. What side effects may I notice from receiving this medicine? Side effects that you should report to your doctor or health respiratory care practitioner as soon as p ossible: allergic [...] attention (report to your doctor or health respiratory care practitioner if they continue or are bothersome): [...] pharmacist, or health care provider. Copyright 2019 [employer] Celecoxib capsules Brand Name: Celebrex What is [...] information carefully each time. Talk to your rug sample beveler regarding the use of this medicine in children. Special care may be needed. What side effects may I notice from receiving this medicine? Side effects that you should report to your doctor or health respiratory care practitioner as soon as p ossible: allergic [...] attention (report to your doctor or health respiratory care practitioner if they continue or are bothersome): [...] this medicine? Tell your doctor or health respiratory care practitioner if your pain does not get [...] roke, talk with your doctor or health respiratory care practitioner. Do not take medicines such as [...] pharmacist, or health care provider. Copyright 2019 [employer] Furosemide tablets Brand Names: Active-Medicated Specimen Kit, [...] not take at bedtime. Talk to your rug sample beveler regarding the use of this medicine in children. While this drug m ay be prescribed for selected conditions, precautions do apply. What side effects may I notice from receiving this medicine? Side effects that you should report to your doctor or health respiratory care practitioner as soon as p ossible: blood [...] attention (report to your doctor or health respiratory care practitioner if they continue or are bothersome): [...] this medicine? Visit your doctor or health respiratory care practitioner for regular checks on your progress. Check yo ur blood pressure regularly. Ask your doctor or health respiratory care practitioner what your blood pre ssure should [...] pharmacist, or health care provider. Copyright 2019 [employer] Gabapentin capsules or tablets Brand Names: Active-PAC [...] information carefully each time. Talk to your rug sample beveler regarding the use of this medicine in children. Special care may be needed. What side effects may I notice from receiving this medicine? Side effects that you should report to your doctor or health respiratory care practitioner as soon as p ossible: allergic reactions like skin rash, itching or hives, swelling of the face, lips, or tong ue worsening of mood, thoughts or actions of suicide or dying Side effects that usually do not require medical attention (report to your doctor or health respiratory care practitioner if they continue or are bothersome): [...] this medicine? Visit your doctor or health respiratory care practitioner for regular checks on your progress. You may want to keep a record at home of how you feel your condition is responding to treatment. You may want to share this information with your doctor or health respiratory care practitioner at each vis it. You should contact your doctor or health respiratory care practitioner if your seizures get worse or if you have any new types of seizures. Do not stop taking this medicine or any of your seiz ure medicines unless instructed by your doctor or health respiratory care practitioner. Stopping your me dicine suddenly can [...] dying should be reported to your health respiratory care practitioner right away. Women who become while using this medicine may enroll in the [place] Drug Registry by calling . This registry collects informatio n about the safety of antiepileptic drug use during . NOTE:This sheet is a summary. It may not cover all possible information. If you have questi ons about this medicine, talk to your doctor, pharmacist, or health care provider. Copyright 2019 [employer] Morphine sustained-release tablets Brand Names: ARYMO ER, [...] information carefully each time. Talk to your rug sample beveler regarding the use of this medicine in children. Special care may be needed. What side effects may I notice from receiving this medicine? Side effects that you should report to your doctor or health respiratory care practitioner as soon as p ossible: allergic [...] attention (report to your doctor or health respiratory care practitioner if they continue or are bothersome): [...] an official disposal site. Contact the [facility] at [phone] or your [facility] government to find a site. If [...] this medicine? Tell your doctor or health respiratory care practitioner if your pain does not go [...] pharmacist, or health care provider. Copyright 2019 [employer] Nicotine skin patches Brand Names: Habitrol, Nicoderm [...] the same area again. Talk to your rug sample beveler regarding the use of this medicine in children. Special care may be needed. What side effects may I notice from receiving this medicine? Side effects that you should report to your doctor or health respiratory care practitioner as soon as p ossible: allergic [...] attention (report to your doctor or health respiratory care practitioner if they continue or are bothersome): [...] few days. Call yo doctor or health respiratory care practitioner if skin redness does not go away after 4 days, if your skin swells, or if you get a rash. If you are a diabetic and you quit smoking, the effects of insulin may be increased and you may need to reduce your insulin dose. Check with your doctor or health respiratory care practitioner ab out how you should adjust [...] pharmacist, or health care provider. Copyright 2019 [employer] Olanzapine tablets Brand Name: Zyprexa What is [...] information carefully each time. Talk to your rug sample beveler regarding the use of this medicine in children. While this drug m ay be prescribed for children as young as 13 years for selected conditions, precautions do a pply. What side effects may I notice from receiving this medicine? Side effects that you should report to your doctor or health respiratory care practitioner as soon as p ossible: allergic [...] attention (report to your doctor or health respiratory care practitioner if they continue or are bothersome): [...] this medicine? Visit your doctor or health respiratory care practitioner for regular checks on your progress. It may b e several weeks before you see the full effects of this medicine. Notify your doctor or heal th respiratory care practitioner if your symptoms get worse, if you have new symptoms, if you are having an unusual effect from this medicine, or if you feel out of control, very discouraged or th ink you might harm yourself or others. Do not suddenly stop taking this medicine. You may need to gradually reduce the dose. Ask y our doctor or health respiratory care practitioner for advice. You may get dizzy [...] allergies without asking your doctor or health respiratory care practitioner for advice. Some ingredients can increase possible side effects. Your mouth may get dry. Chewing sugarless gum or sucking hard candy, and drinking plenty of water will help. This medicine can reduce the response of your body to heat or cold. Dress dredging inspector cold weat her and stay hydrated [...] information carefully each time. Talk to your rug sample beveler regarding the use of this medicine in children. Special care may be needed. What side effects may I notice from receiving this medicine? Side effects that you should report to your doctor or health respiratory care practitioner as soon as p ossible: allergic [...] attention (report to your doctor or health respiratory care practitioner if they continue or are bothersome): [...] an official disposal site. Contact the [facility] at [phone] or your [facility] government to find a site. If you cannot return the medicine, flush it down the toilet. Do not use the medicine after the expiration date. What should I tell my health care provider before I take this medicine? They need to know if you have any of these conditions: [place]'s disease brain tumor head injury heart disease [...] this medicine? Tell your doctor or health respiratory care practitioner if your pain does not go [...] avoid any side effects. Talk to your rug sample beveler regarding the use of this medicine in children. Special care may be needed. What side effects may I notice from receiving this medicine? Side effects that you should report to your doctor or health respiratory care practitioner as soon as p ossible: allergic [...] attention (report to your doctor or health respiratory care practitioner if they continue or are bothersome): [...] ta lk to your doctor or health respiratory care practitioner. You may need to miss a [...] this medicine? Visit your doctor or health respiratory care practitioner for regular checks on your progress. [...] have surgery, tell your doctor or health respiratory care practitioner that you hav e taken this medicine within the last twelve months. Ask your doctor or health respiratory care practitioner about your diet. You may need to lower the amou nt of salt you eat. This medicine may affect blood sugar levels. If you have diabetes, check with your doctor o r health respiratory care practitioner before you change your diet or [...] e often than directed. Talk to your rug sample beveler regarding the use of this medicine in children. While this medici ne may be prescribed for children as young as 2 years for selected conditions, precautions d o apply. What side effects may I notice from receiving this medicine? Side effects that you should report to your doctor or health respiratory care practitioner as soon as p ossible: diarrhea muscle weakness nausea, vomiting unusual weight loss Side effects that usually do not require medical attention (report to your doctor or health respiratory care practitioner if they continue or are bothersome): [...] returning, check with yo doctor or health respiratory care practitioner. NOTE:This sheet is a summary. It may not cover all possible information. If you have questi ons about this medicine, talk to your doctor, pharmacist, or health care provider. Copyright 2019 [employer] Tramadol tablets Brand Name: Ultram What is [...] information carefully each time. Talk to your rug sample beveler regarding the use of this medicine in children. Special care may be needed. What side effects may I notice from receiving this medicine? Side effects that you should report to your doctor or health respiratory care practitioner as soon as p ossible: allergic [...] attention (report to your doctor or health respiratory care practitioner if they continue or are bothersome): [...] this medicine? Tell your doctor or health respiratory care practitioner if your pain does not go [...] Do not take more medicine than directed. [facility] emergency for help if you have [...] 3 days, call your doctor or health respiratory care practitioner. Your mouth may get dry. Chewing [...] attachments cannot be sent through Care Everywhere.Sepsis (Chinese )Sepsis, Understanding (Chinese)documented in this encounter Medications at Time of [...] Harpal Ray MD - 11/09 1429 PDT [facility] Service: Hospitalist Progress Note Pt: Sylvie [...] encounter as of 11/09/18-14:29 IMAGING: Reviewed in [facility], no new results. PROBLEM LIST [...] over2 weeks #Depression/anxiety/PTSD: -11/03/18 Discussed patient with [facility] [phone]. She has a diagnosis of PTSD and [...] erHarpal kincaid MD - 06/2018 1200 PDT [facility] Service: Hospitalist Progress Note Pt: Sylvie [...] as able #Depression/anxiety/PTSD: -11/03/18 Discussed patient with [facility] [phone]. She has a diagnosis of PTSD and [...] Harpal Ray MD - 11/07/2018 1404 PDT [facility] Service: Hospitalist Progress Note Hospital Day: [...] and psychiat ry was consulted. Her psychiatry MANAGER [employer] was also contacted and she was restarted [...] 11/07/18 0411 PROCALCITONI 0.10 Imaging: Reviewed in [facility], no new results. PROBLEM LIST [...] as tolerated #Depression/anxiety/PTSD: -11/03/18 Discussed patient with [facility] [phone]. She has a diagnosis of PTSD and [...] this note might be different from the [facility] Service: PULMONOLOGY Progress Note Date of [...] MIGDALIA Elizalde - 11/06/2018 1009 PDT . [facility] Service: Orthopedic Surgery Progress Note Hospital [...] MIGDALIA Thompson has created this entry using [employer]ognition [employer] e and [employer] macros. The entry has been reviewed and there may still exist sound alike word errors. Kush Miller MD - 11/06/2018 0802 PDT [facility] Service: Hospitalist Progress Note Pt: Sylvie [...] agitaitation and psychiatry was consulted. Her psychiatry MANAGER [employer] was also contacted and she was restarted [...] hours. No results for input(s): PHART, PO2ART, [id number], X6MMEBUB, BEART in the last 168 hours. No results for input(s): APTT, INR, PTT in the last 168 hours. No results for input(s): TSH in the last 168 hours. Invalid input(s): T3FREE, FREET4 No results for input(s): TROPONINT in the last 168 hours. Invalid input(s): CKTOTAL, TROPONINI, CKMBINDEX Microbiology Results (72 hrs) Procedure Component Value Units Date/Time Culture, Respiratory, Lower, Smear [[id number]] Collected: 10/29/181728 Order Status: Completed Lab Status: [...] HELD 48 HOURS. RESULT Testing performed at [facility], [address] [place] [id number] Comment: Testing performed at [facility], [address] [place] [address] RADIOLOGY: Recent Results (from the past 360 [...] study. Depression/anxiety/ptsd - 11/03/18 Discussed patient with [facility] [phone]. She has a diagnosis o f PTSD [...] and managing patient and counseling/coordination. Dictation software, [employer], used which may contain error for similar [...] PDTYoshi, MIGDALIA Swan - 11/05/2018 1052 PDT [facility] Service: Orthopedic Surgery Progress Note Hospital [...] MIGDALIA Thompson has created this entry using [employer] Recognition [employer] e and [employer] macros. The entry has been reviewed and there may still exist sound alike word errors. Kush Miller MD - 11/05/2018 0944 PDT [facility] Service: Hospitalist Progress Note Pt: Sylvie [...] agitaitation and psychiatry was consulted. Her psychiatry MANAGER [employer] was also contacted and she was restarted [...] hours. No results for input(s): PHART, PO2ART, WEI0NKF, [id number], BEART in the last 168 hours. No results for input(s): APTT, INR, PTT in the last 168 hours. No results for input(s): TSH in the last 168 hours. Invalid input(s): T3FREE, FREET4 No results for input(s): TROPONINT in the last 168 hours. Invalid input(s): CKTOTAL, TROPONINI, CKMBINDEX Microbiology Results (72 hrs) Procedure Component Value Units Date/Time Culture, Respiratory, Lower, Smear [[id number]] Collected: 10/29/181728 Order Status: Completed Lab Status: [...] HELD 48 HOURS. RESULT Testing performed at [facility], [address] [place] [address] Comment: Testing performed at [facility], [address] [place] [address] RADIOLOGY: Recent Results (from the past 360 [...] study. Depression/anxiety/ptsd - 11/03/18 Discussed patient with [facility] [phone]. She has a diagnosis o f PTSD [...] and managing patient and counseling/coordination. Dictation software, [employer], used which may contain error for similar [...] off. Please call with any que stions/concerns. [phone]. Shanice Rahman RN Lala kumar RN - [...] might be different from t anibal original. [facility] Service: Orthopedic Surgery Progress Note Hospital [...] MIGDALIA Thompson has created this entry using [employer] e and [employer] macros. The entry has been reviewed and there may still exist sound alike word errors. Kush Miller MD - 11/04/2018 1150 PDT [facility] Service: Hospitalist Progress Note Pt: Sylvie [...] hours. No results for input(s): PHART, PO2ART, HXL3NFT, [id number], BEART in the last 168 hours. No results for input(s): APTT, INR, PTT in the last 168 hours. No results for input(s): TSH in the last 168 hours. Invalid input(s): T3FREE, FREET4 No results for input(s): TROPONINT in the last 168 hours. Invalid input(s): CKTOTAL, TROPONINI, CKMBINDEX Microbiology Results (72 hrs) Procedure Component Value Units Date/Time Culture, Respiratory, Lower, Smear [[id number]] Collected: 10/29/181728 Order Status: Completed Lab Status: [...] HELD 48 HOURS. RESULT Testing performed at [facility], [address] [place] [address] Comment: Testing performed at [facility], [address] [place] [address] RADIOLOGY: Recent Results (from the past 360 [...] study. Depression/anxiety/ptsd - 11/03/18 Discussed patient with [facility] [phone]. She has a diagnosis o f PTSD [...] and managing patient and counseling/coordination. Dictation software, [employer], used which may contain error for similar [...] to have regu lar p.o. Intake. Per fashion model note oxygenation is improving. 1. Pain in prosthetic joint, initial encounter ([facility]) 2. Mechanical complication of prosthetic knee implant, initial encounter ([facility]) 3. Mechanical instability of hip prosthesis ([facility]) 4. Shortness of breath 5. Acute respiratory failure with hypoxia ([facility]) Past Medical History: Diagnosis Date Anxiety Anxious depression Arthralgia Arthritis Asthma not using inhalers DDD (degenerative disc disease), lumbar Deliberate self-cutting history of Depression Heartburn Hemorrhage of gastrointestinal tract 2015 upper and lower due ulcers Morbid obesity with BMI of 50.0-59.9, adult ([facility]) Pain in prosthetic joint ([facility]) with instability Panic attacks states can [...] IVPB 20 mEq Intravenous Daily PRN Kush eG MD And potassium chloride 40 mEq in [...] doing mobility exercises. Security, risk, pcc, stepdown brokerage office manager, primary md, and lead rn pre sent with bedside rn. Pt crying and yelling that she doesn't want to "be here". Per policy d isruptive/violent pt paperwork filled out. Situation and pt expectations reviewed by risk jaime arboleda brokerage office manager with pt. Sitter at bedside currently. [...] the room, pt through [facility]. Dada mares called by staff attorney. pt. also stated during session everything we have been doing for her is wrong. eon Calvin MEAT GRADER - 11/03/2018 0818 PDTPatient found to have High Flow Nasal Cannula out of nostrils and low o xygen saturations of 77%. Patient declined bipap, however let me place cannula in nostrils. Patient refused nebulizer treatment and stated she wants to get out of here. HFNC 60L 49% , Spo2 94% Kush Ge MD - 11/03/2018 0744 PDT [facility] Service: Hospitalist Progress Note Pt: Sylvie Ramsey AGE/SEX: 48 y.o. female ROOM: [facility]/9119- : 1970 PCP: No Physician on file [...] hours. No results for input(s): PHART, PO2ART, VGY3JIF, H6GNTLJL, BEART in the last 168 hours. No results for input(s): APTT, INR, PTT in the last 168 hours. No results for input(s): TSH, T3FREE in the last 168 hours. Invalid input(s): FREET4 No results for input(s): TROPONINT in the last 168 hours. Invalid input(s): CKTOTAL, TROPONINI, CKMBINDEX Microbiology Results (72 hrs) Procedure Component Value Units Date/Time Culture, Respiratory, Lower, Smear [[id number]] Collected: 10/29/181728 Order Status: Completed Lab Status: [...] HELD 48 HOURS. RESULT Testing performed at [facility], [address] [place] [address] Comment: Testing performed at [facility], [address] [place] [address] RADIOLOGY: Recent Results (from the past 360 [...] sleep study. Depression/anxiety/ptsd - Discussed patient with [facility] [phone]. She has a diagnosis of PTSD a [...] making capacity - consulted psychiatry. Appreciate recs. sr community manager to attempt to obtain more information [...] and managing patient and counseling/coordination. Dictation software, Mister Spex, used which may contain error for similar [...] to be transfer to a hospital in [place], or that she was goi ng to call the police and maxim the hospital. , lead nurse, high risk case manager and risk notified. Pt remained [...] time and continue to be managed by fashion model and hospitalist . No new orthopedics events 1. Pain in prosthetic joint, initial encounter ([facility]) 2. Mechanical complication of prosthetic knee implant, initial encounter ([facility]) 3. Mechanical instability of hip prosthesis ([facility]) 4. Shortness of breath 5. Acute respiratory failure with hypoxia ([facility]) Past Medical History: Diagnosis Date Anxiety Anxious depression Arthralgia Arthritis Asthma not using inhalers DDD (degenerative disc disease), lumbar Deliberate self-cutting history of Depression Heartburn Hemorrhage of gastrointestinal tract 2015 upper and lower due ulcers Morbid obesity with BMI of 50.0-59.9, adult ([facility]) Pain in prosthetic joint (HCC) with [...] weightbearing Continue DVT prophylaxis Continue hospitalist and fashion model management for comorbidities plan will be to eventua lly go to rehab or SNF once cleared by specialist Emilio Moreno 11/02/2018 oses Valderrama, PT - 11/02/2018 1259 PDT 11/02/18 1259 PT Visit Summary PT Visit Type Missed Visit (patient unavailable) (Tele psych consult in progress) Next Visit Information 11/02, LTHA, 2PA Kush Miller MD - 11/02/2018 0744 PDT [facility] Service: Hospitalist Progress Note Pt: Sylvie Ramsey AGE/SEX: 48 y.o. female ROOM: [facility] : 1970 PCP: No Physician on file [...] hours. No results for input(s): PHART, PO2ART, FUC2AWR, [id number], BEART in the last 168 hours. No results for input(s): APTT, INR, PTT in the last 168 hours. No results for input(s): TSH, T3FREE in the last 168 hours. Invalid input(s): FREET4 No results for input(s): TROPONINT in the last 168 hours. Invalid input(s): CKTOTAL, TROPONINI, CKMBINDEX Microbiology Results (72 hrs) Procedure Component Value Units Date/Time Culture, Respiratory, Lower, Smear [[id number]] Collected: 10/29/181728 Order Status: Completed Lab Status: [...] HELD 48 HOURS. RESULT Testing performed at [facility], [address] [place] [id number] Comment: Testing performed at [facility], [address] [place] [address] RADIOLOGY: Recent Results (from the past 360 [...] making capacity - consulted psychiatry. Appreciate recs. sr community manager to attempt to obtain more information [...] and managing patient and counseling/coordination. Dictation software, Mister Spex, used which may contain error for similar [...] continues to be managed by hospitalist and fashion model and is currently on BiPAP 1. Pain in prosthetic joint, initial encounter ([facility]) 2. Mechanical complication of prosthetic knee implant, initial encounter ([facility]) 3. Mechanical instability of hip prosthesis ([facility]) 4. Shortness of breath 5. Acute respiratory failure with hypoxia ([facility]) Past Medical History: Diagnosis Date Anxiety Anxious depression Arthralgia Arthritis Asthma not using inhalers DDD (degenerative disc disease), lumbar Deliberate self-cutting history of Depression Heartburn Hemorrhage of gastrointestinal tract 2015 upper and lower due ulcers Morbid obesity with BMI of 50.0-59.9, adult ([facility]) Pain in prosthetic joint ([facility]) with instability Panic attacks states can [...] Miller MD - 0 11/01/2018 0736 PDT [facility] Service: Hospitalist Progress Note Pt: Sylvie [...] hours. No results for input(s): PHART, PO2ART, [id number], [id number], BEART in the last 168 hours. No results for input(s): APTT, INR, PTT in the last 168 hours. No results for input(s): TSH, T3FREE in the last 168 hours. Invalid input(s): FREET4 No results for input(s): TROPONINT in the last 168 hours. Invalid input(s): CKTOTAL, TROPONINI, CKMBINDEX Microbiology Results (72 hrs) Procedure Component Value Units Date/Time Culture, Respiratory, Lower, Smear [[id number]] Collected: 10/29/181728 Order Status: Completed Lab Status: [...] HELD 48 HOURS. RESULT Testing performed at [facility], [address] [place] [address] Comment: Testing performed at [facility], [address] [place] [address] RADIOLOGY: Recent Results (from the past 360 [...] and managing patient and counseling/coordination. Dictation software, Mister Spex, used which may contain error for similar [...] prosthetic joint, initial encounter ([facility]) 2. Mechanical complication of prosthetic knee implant, initial encounter ([facility]) 3. Mechanical instability of hip prosthesis ([facility]) 4. Shortness of breath 5. Acute respiratory failure with hypoxia ([facility]) Past Medical History: Diagnosis Date Anxiety [...] might be different fro m the original. [facility] Service: Hospitalist Progress Note Pt: Sylvie Ramsey AGE/SEX: 48 y.o. female ROOM: [facility]- : 1970 PCP: No Physician on file [...] hours. No results for input(s): PHART, PO2ART, AIP9OXR, [id number], BEART in the last 168 hours. No results for input(s): APTT, INR, PTT in the last 168 hours. No results for input(s): TSH, T3FREE in the last 168 hours. Invalid input(s): FREET4 No results for input(s): TROPONINT in the last 168 hours. Invalid input(s): CKTOTAL, TROPONINI, CKMBINDEX Microbiology Results (72 hrs) Procedure Component Value Units Date/Time Culture, Respiratory, Lower, Smear [[id number]] Collected: 10/29/181728 Order Status: Completed Lab Status: [...] HELD 48 HOURS. RESULT Testing performed at [facility], [address] [place] [address] Comment: Testing performed at [facility], [address] [place] [address] RADIOLOGY: Recent Results (from the past 360 [...] negative for DVT. Signed by: Korina Ahn, fEe Sign Date/Time: 10/28/2018 1:20 PM XR Chest [...] and managing patient and counseling/coordination. Dictation software, Mister Spex, used which may contain error for similar [...] knee implant, initial encounter ([facility]) 3. Mechanical instability of hip prosthesis (HCC) 4. Shortness of breath 5. Acute respiratory failure with hypoxia ([facility]) Past Medical History: Diagnosis Date Anxiety [...] Yuki Courtney MD - 10/30/2018 0758 PDT [facility] Service: Hospitalist Progress Note Hospital Day: [...] for input(s): IRON, TIBC, PCTSAT, FERRITIN, TSH, [id number], FOLATE in the last 168 hours. Recent [...] continue nicotine patch. Deconditioning. Physical therapy [facility] when stable. Plan discussed with patient. All questions were answered . All data was reviewed. Disposition: Inpatient Code Status: Full Code Yuki Pruett MD 10/30/2018 8:02 This entry has been created using iSuppli Speech Recognition software and Kromatid. The entry has been reviewed and there may still exist sound alike word errors. Kanwal Diego RN - 10/30/2018 0648 PDTAttempted to put patient on high flow 02 x2 attempts. Was unable t o keep 02 above 80's placed patient back on biPAP. Otherwise VSS and hourly rounding unevent ful. Chart check complete. RussellVíctor, STUDIO CAMERA OPERATOR - 1931 PDT [facility] Service: Orthopedic Surgery Progress Note 10/29/2018 [...] hospitalist Code Status: Full Code WENCESLAO De Guzamn 10/29/2018 ianna Wasserman RN - 10/29/2018 1842 [...] Radha danielle to see this pt today. [facility] and report any new findings. Gianna Wasserman RN Yuki Courtney MD - 10/29/2018 0739 PDT [facility] Service: Hospitalist Progress Note Hospital Day: [...] for input(s): IRON, TIBC, PCTSAT, FERRITIN, TSH, [id number], FOLATE in the last 168 hours. Recent [...] 7:39 This entry has been created using [employer]li Speech Recognition software and Kromatid. The entry has been reviewed and there may still exist sound alike word errors. Víctor Wells A RNP - 10/28/2018 1752 PDT [facility] Service: Orthopedic Surgery Progress Note 10/28/2018 [...] ARTHROPLASTY P)continue medical care per hospitalist and fashion model. Weight bear as tolerated LLE. Continue PT [...] NAVEEN TOURE RPH 9:21 10/28/2018 Pharmacist Yuki Courtnye MD - 10/28/2018 0821 PDT [facility] Service: Hospitalist Progress Note Hospital Day: [...] for input(s): IRON, TIBC, PCTSAT, FERRITIN, TSH, [id number], FOLATE in the last 168 hours. Recent [...] 10:29 This entry has been created using iSuppli Speech Recognition software and Kromatid. The entry has been reviewed and there [...] Harpal Ray MD - 10/27/2018 1914 PDT [facility] Adult Hospitalist Event Note Hospital Day: [...] that developed this am after returning from [facility]. Denies dizziness, nausea, cough, chest pain, abdominal pain vomiting or headache 1. Pain in prosthetic joint, initial encounter ([facility]) 2. Mechanical complication of prosthetic knee implant, initial encounter ([facility]) 3. Mechanical instability of hip prosthesis [...] appropriately. Chart check complete.Electronical ly signed by Barib Merchant RN at 10/26/2018 20:06 Loraine Linton [...] prosthetic joint, initial encounter ([facility]) 2. Mechanical complication of prosthetic knee implant, initial encounter ([facility]) 3. Mechanical instability of hip prosthesis ([facility]) Past Medical History: Diagnosis Date Anxiety Anxious depression Arthralgia Arthritis Asthma not using inhalers DDD (degenerative disc disease), lumbar Deliberate self-cutting history of Depression Heartburn Hemorrhage of gastrointestinal tract 2015 upper and lower due ulcers Morbid obesity with BMI of 50.0-59.9, adult ([facility]) Pain in prosthetic joint ([facility]) with instability Panic attacks states can [...] chart check complete. Cassie Merlos RN 10/25/2018 4043 documented in this encoun ter Plan of [...] | | | encounter ([facility]) | | | | | Mechanical | | | | | complication of | | | | | prosthetic knee | | | | | implant, initial | | | | | encounter ([facility]) | | | | | Mechanical | | | | | instability of hip | | | | | prosthesis ([facility]) | | | | | Shortness [...] | | | encounter ([facility]) | results section. | | | | | Mechanical | | | | | | complication of | | | | | | prosthetic knee | | | | | | implant, initial | | | | | | encounter ([facility]) | | + +--------+ + + + | CULTURE, TISSUE, | Routin | 10/24/2018 | Pain in prosthetic | Results for this | | SMEAR, WITH | e | 16:41 PDT | joint, initial | procedure are in the | | ANAEROBES | | | encounter ([facility]) | results section. | | | | | Mechanical | | | | | | complication of | | | | | | prosthetic knee | | | | | | implant, initial | | | | | | encounter ([facility]) | | + +--------+ + + [...] | | | | L, [address] [facility] | | | | | | [place] | | | | | | [address] | | | | + + + + + + + + | Specimen | + + | Blood | + + + + + + + | Performing | Address | City/State/Zipcode | Phone Number | | Organization | | | | + + + + + | [facility] | [address] | [place] [address] | [phone] | + + + + + Magnesium [...] [place], | | | | | | [place] [address] | | | | + + + + + + + + | Specimen | + + | Blood | + + + + + + + | Performing | Address | City/State/Zipcode | Phone Number | | Organization | | | | + + + + + | [facility] | [address] | [place] [address] | [phone] | + + + + + Basic [...] | >60Comment: GFR <60: | >60 | [facility] | | | GFR | [...] | | | | | | MDRD IDOH traceable | | | | | | equation.Testing | | | | | | performed at [facility], [address] | | | | | | [facility], | | | | | | [place] [address] | | | | + + + + + + + + | Specimen | + + | Blood | + + + + + + + | Performing | Address | City/State/Zipcode | Phone Number | | Organization | | | | + + + + + | [facility] | [address] | [place] [address] | [phone] | + + + + + CBC [...] | | | Absolute | performed at [facility], [address] | K/uL | LABORATORY | | | | [place], | | | | | | [place] [address] | | | | + + + + + + + + | Specimen | + + | Blood | + + + + + + + | Performing | Address | City/State/Zipcode | Phone Number | | Organization | | | | + + + + + | [facility] | [address] | [place] [address] | [phone] | + + + + + Magnesium (11/08/2018 3:56 PDT) + + + + + + | Component | Value | Ref Range | Performed | Pathologist | | | | | At | Signature | + + + + + + | Magnesium | 2.7 (H)Comment: Testing | 1.7 - 2.4 mg/dL | [facility] | | | | performed at [facility], [address] | | LABORATORY | | | | [place], | | | | | | [place] [address] | | | | + + + + + + + + | Specimen | + + | Blood | + + + + + + + | Performing | Address | City/State/Zipcode | Phone Number | | Organization | | | | + + + + + | [facility] | [address] | [place] [address] | [phone] | + + + + + Basic [...] 8.1 (L) | 8.5 - 10.5 | [facility] | | | | | mg/dL | LABORATORY | | + + + + + + | Estimated | >60Comment: GFR <60: | >60 | [facility] | | | GFR | [...] | | | | | performed at [facility], [address] | | | | | | [facility], | | | | | | [place] [address] | | | | + + + + + + + + | Specimen | + + | Blood | + + + + + + + | Performing | Address | City/State/Zipcode | Phone Number | | Organization | | | | + + + + + | [facility] | [address] | [place] [address] | [phone] | + + + + + CBC [...] at | | | | | | [facility], [address] | | | | | | [place] | | | | | | [address] | | | | + + + + + + + + | Specimen | + + | Blood | + + + + + + + | Performing | Address | City/State/Zipcode | Phone Number | | Organization | | | | + + + + + | [facility] | [address] | [place] [address] | [phone] | + + + + + Magnesium (11/07/2018 4:11 PDT) + + + + + + | Component | Value | Ref Range | Performed | Pathologist | | | | | At | Signature | + + + + + + | Magnesium | 2.5 (H)Comment: Testing | 1.7 - 2.4 mg/dL | [facility] | | | | performed at [facility], [address] | | LABORATORY | | | | [place], | | | | | | [place] [address] | | | | + + + + + + + + | Specimen | + + | Blood | + + + + + + + | Performing | Address | City/State/Zipcode | Phone Number | | Organization | | | | + + + + + | [facility] | [address] | [place] [address] | [phone] | + + + + + Basic [...] | | | | | performed at [facility], [address] | | | | | | [place], | | | | | | [place] [address] | | | | + + + + + + + + | Specimen | + + | Blood | + + + + + + + | Performing | Address | City/State/Zipcode | Phone Number | | Organization | | | | + + + + + | [facility] | [address] | [place] [address] | [phone] | + + + + + Procalcitonin [...] | | | | | | at [facility];[address] | | | | | | [place] [address] | | | | + + + + + + + + | Specimen | + + | Blood | + + + + + + + | Performing | Address | City/State/Zipcode | Phone Number | | Organization | | | | + + + + + | [facility] | [address] | [place] [address] | [phone] | + + + + + CBC [...] | | | | L, [address] [facility] | | | | | | [place] | | | | | | [address] | | | | + + + + + + + + | Specimen | + + | Blood | + + + + + + + | Performing | Address | City/State/Zipcode | Phone Number | | Organization | | | | + + + + + | [facility] | [address] | [place] [address] | [phone] | + + + + + Magnesium [...] | | | | | [place] [address] | | | | + + + + + + + + | Specimen | + + | Blood | + + + + + + + | Performing | Address | City/State/Zipcode | Phone Number | | Organization | | | | + + + + + | [facility] | [address] | [place] [address] | [phone] | + + + + + Basic [...] | | | | | performed at [facility], [address] | | | | | | [facility], | | | | | | [place] [address] | | | | + + + + + + + + | Specimen | + + | Blood | + + + + + + + | Performing | Address | City/State/Zipcode | Phone Number | | Organization | | | | + + + + + | [facility] | [address] | [place] [address] | [phone] | + + + + + CBC [...] at | | | | | | [facility], [address] [facility] | | | | | | [place] | | | | | | [address] | | | | + + + + + + + + | Specimen | + + | Blood | + + + + + + + | Performing | Address | City/State/Zipcode | Phone Number | | Organization | | | | + + + + + | [facility] | [address] | [place] [address] | [phone] | + + + + + Magnesium [...] [place], | | | | | | [place] [address] | | | | + + + + + + + + | Specimen | + + | Blood | + + + + + + + | Performing | Address | City/State/Zipcode | Phone Number | | Organization | | | | + + + + + | [facility] | [address] [facility] | [place] [address] | [phone] | + + + + + Basic [...] | | | | | performed at [facility], [address] | | | | | | [facility], | | | | | | [place] [address] | | | | + + + + + + + + | Specimen | + + | Blood | + + + + + + + | Performing | Address | City/State/Zipcode | Phone Number | | Organization | | | | + + + + + | [facility] | [address] | [place] [address] | [phone] | + + + + + CBC [...] at | | | | | | [facility], [address] [facility] | | | | | | [place] | | | | | | [address] | | | | + + + + + + + + | Specimen | + + | Blood | + + + + + + + | Performing | Address | City/State/Zipcode | Phone Number | | Organization | | | | + + + + + | [facility] | [address] | [place] [address] | [phone] | + + + + + Magnesium (11/04/2018 3:53 PDT) + + + + + + | Component | Value | Ref Range | Performed | Pathologist | | | | | At | Signature | + + + + + + | Magnesium | 2.7 (H)Comment: Testing | 1.7 - 2.4 mg/dL | [facility] | | | | performed at [facility], [address] | | LABORATORY | | | | [place], | | | | | | [place] [address] | | | | + + + + + + + + | Specimen | + + | Blood | + + + + + + + | Performing | Address | City/State/Zipcode | Phone Number | | Organization | | | | + + + + + | [facility] | [address] | [place] [address] | [phone] | + + + + + Basic [...] | | | | | performed at [facility], [address] | | | | | | [facility], | | | | | | [place] [address] | | | | + + + + + + + + | Specimen | + + | Blood | + + + + + + + | Performing | Address | City/State/Zipcode | Phone Number | | Organization | | | | + + + + + | [facility] | [address] | [place] [address] | [phone] | + + + + + CBC [...] | | | | | performed at [facility], [address] | | | | | | [place], | | | | | | [place] [address] | | | | + + + + + + + + | Specimen | + + | Blood | + + + + + + + | Performing | Address | City/State/Zipcode | Phone Number | | Organization | | | | + + + + + | [facility] | [address] | [place] [address] | [phone] | + + + + + Magnesium (11/03/2018 3:58 PDT) + + + + + + | Component | Value | Ref Range | Performed | Pathologist | | | | | At | Signature | + + + + + + | Magnesium | 2.7 (H)Comment: Testing | 1.7 - 2.4 mg/dL | [facility] | | | | performed at [facility], [address] | | LABORATORY | | | | [place], | | | | | | [place] [address] | | | | + + + + + + + + | Specimen | + + | Blood | + + + + + + + | Performing | Address | City/State/Zipcode | Phone Number | | Organization | | | | + + + + + | [facility] | [address] | [place] [address] | [phone] | + + + + + Basic [...] W | | | | | | [facility], | | | | | | [place] [address] | | | | + + + + + + + + | Specimen | + + | Blood | + + + + + + + | Performing | Address | City/State/Zipcode | Phone Number | | Organization | | | | + + + + + | [facility] | [address] | [place] [address] | [phone] | + + + + + CBC [...] at | | | | | | [facility], [address] [facility] | | | | | | [place] | | | | | | [address] | | | | + + + + + + + + | Specimen | + + | Blood | + + + + + + + | Performing | Address | City/State/Zipcode | Phone Number | | Organization | | | | + + + + + | [facility] | [address] | [place] [address] | [phone] | + + + + + Magnesium (11/02/2018 4:08 PDT) + + + + + + | Component | Value | Ref Range | Performed | Pathologist | | | | | At | Signature | + + + + + + | Magnesium | 2.8 (H)Comment: Testing | 1.7 - 2.4 mg/dL | [facility] | | | | performed at [facility], [address] | | LABORATORY | | | | [place], | | | | | | [place] [address] | | | | + + + + + + + + | Specimen | + + | Blood | + + + + + + + | Performing | Address | City/State/Zipcode | Phone Number | | Organization | | | | + + + + + | [facility] | [address] | [place] [address] | [phone] | + + + + + Basic [...] | >60Comment: GFR <60: | >60 | [facility] | | | GFR | [...] | | | | | | MDRD IDOH traceable | | | | | | equation.Testing | | | | | | performed at [facility], [address] | | | | | | [facility], | | | | | | [place] [address] | | | | + + + + + + + + | Specimen | + + | Blood | + + + + + + + | Performing | Address | City/State/Zipcode | Phone Number | | Organization | | | | + + + + + | [facility] | [address] | [place] [address] | [phone] | + + + + + CBC [...] at | | | | | | [facility], [address] [facility] | | | | | | [place] | | | | | | [address] | | | | + + + + + + + + | Specimen | + + | Blood | + + + + + + + | Performing | Address | City/State/Zipcode | Phone Number | | Organization | | | | + + + + + | [facility] | [address] | [place] [address] | [phone] | + + + + + Magnesium (11/01/2018 4:17 PDT) + + + + + + | Component | Value | Ref Range | Performed | Pathologist | | | | | At | Signature | + + + + + + | Magnesium | 2.7 (H)Comment: Testing | 1.7 - 2.4 mg/dL | [facility] | | | | performed at [facility], [address] | | LABORATORY | | | | [address], | | | | | | [place] [address] | | | | + + + + + + + + | Specimen | + + | Blood | + + + + + + + | Performing | Address | City/State/Zipcode | Phone Number | | Organization | | | | + + + + + | [facility] | [address] | [place] [address] | [phone] | + + + + + Basic [...] | | | | | performed at [facility], [address] | | | | | | [facility], | | | | | | [place] [address] | | | | + + + + + + + + | Specimen | + + | Blood | + + + + + + + | Performing | Address | City/State/Zipcode | Phone Number | | Organization | | | | + + + + + | [facility] | [address] | [place] [address] | [phone] | + + + + + ANTHONY Profile, Reflex (11/01/2018 4:17 PDT) + + + + + + | Component | Value | Ref Range | Performed | Pathologist | | | | | At | Signature | + + + + + + | ANTHONY Screen, | NegativeComment: Testing | Negative | [facility] | | | Qual | performed at [facility] | | LABORATORY | | | | [place], [address] | | | | | | [place] [address] | | | | + + + [...] | | | | | | both DC-3 and MPO-ANCA | | | | | [...] | | 3 Antibody | performed by [facility], | | LABORATORY | | | | [address] | | | | | | [facility] [address] | | | | + + + + + + + + | Specimen | + + | Blood | + + + + + + + | Performing | Address | City/State/Zipcode | Phone Number | | Organization | | | | + + + + + | [facility] | [address] | [place] [address] | [phone] | + + + + + Procalcitonin [...] | | | | | | at [facility];[address] [place] [address] | | | | | | [facility];[place] [address] | | | | + + + + + + + + | Specimen | + + | Blood | + + + + + + + | Performing | Address | City/State/Zipcode | Phone Number | | Organization | | | | + + + + + | [facility] | [address] | [place] [address] | [phone] | + + + + + Potassium (10/31/2018 18:15 PDT) + + + + + + | Component | Value | Ref Range | Performed | Pathologist | | | | | At | Signature | + + + + + + | K | 3.8Comment: Testing | 3.5 - 4.9 | [facility] | | | | performed at [facility];[address] | mmol/L | LABORATORY | | | | [address];[place] | | | | | | [address] | | | | + + + + + + + + | Specimen | + + | Blood | + + + + + + + | Performing | Address | City/State/Zipcode | Phone Number | | Organization | | | | + + + + + | [facility] | [address] | [place] [address] | [phone] | + + + + + CBC [...] LABORATORY | | | | performed at [facility], [address] | | | | | | [place] [place], | | | | | | [place] [address] | | | | | | | | | | + + + + + + + + | Specimen | + + | Blood | + + + + + + + | Performing | Address | City/State/Zipcode | Phone Number | | Organization | | | | + + + + + | [facility] | [address] | [place] [address] | [phone] | + + + + + Magnesium (10/31/2018 4:14 PDT) + + + + + + | Component | Value | Ref Range | Performed | Pathologist | | | | | At | Signature | + + + + + + | Magnesium | 2.3Comment: Testing | 1.7 - 2.4 mg/dL | [facility] | | | | performed at [facility], [address] | | LABORATORY | | | | [place], | | | | | | [place] [address] | | | | + + + + + + + + | Specimen | + + | Blood | + + + + + + + | Performing | Address | City/State/Zipcode | Phone Number | | Organization | | | | + + + + + | [facility] | [address] | [place] [address] | [phone] | + + + + + Basic [...] | | | | | performed at [facility], [address] | | | | | | [place] [place], | | | | | | [place] [address] | | | | + + + + + + + + | Specimen | + + | Blood | + + + + + + + | Performing | Address | City/State/Zipcode | Phone Number | | Organization | | | | + + + + + | [facility] | [address] | [place] [address] | [phone] | + + + + + Phosphorus (10/31/2018 4:14 PDT) + + + + + + | Component | Value | Ref Range | Performed | Pathologist | | | | | At | Signature | + + + + + + | Phosphorus | 3.4Comment: Testing | 2.3 - 4.8 mg/dL | [facility] | | | | performed at [facility], [address] | | LABORATORY | | | | [place], | | | | | | [place] [address] | | | | + + + + + + + + | Specimen | + + | Blood | + + + + + + + | Performing | Address | City/State/Zipcode | Phone Number | | Organization | | | | + + + + + | [facility] | [address] | [place] [address] | [phone] | + + + + + XR [...] LABORATORY | | | | performed at [facility], [address] | | | | | | [place], | | | | | | [place] [address] | | | | | | | | | | + + + + + + + + | Specimen | + + | Blood | + + + + + + + | Performing | Address | City/State/Zipcode | Phone Number | | Organization | | | | + + + + + | [facility] | [address] | [place] [address] | [phone] | + + + + + Magnesium (10/30/2018 4:18 PDT) + + + + + + | Component | Value | Ref Range | Performed | Pathologist | | | | | At | Signature | + + + + + + | Magnesium | 2.3Comment: Testing | 1.7 - 2.4 mg/dL | [facility] | | | | performed at [facility], [address] | | LABORATORY | | | | [place], | | | | | | [place] [address] | | | | + + + + + + + + | Specimen | + + | Blood | + + + + + + + | Performing | Address | City/State/Zipcode | Phone Number | | Organization | | | | + + + + + | [facility] | [address] | [place] [address] | [phone] | + + + + + Basic [...] | | | | | performed at [facility], [address] | | | | | | [address] [place], | | | | | | [place] [address] | | | | + + + + + + + + | Specimen | + + | Blood | + + + + + + + | Performing | Address | City/State/Zipcode | Phone Number | | Organization | | | | + + + + + | [facility] | [address] | [place] [address] | [phone] | + + + + + Vitamin D, Deficiency Screen (25-Hydroxy) (10/30/2018 4:18 PDT) + + + + + + | Component | Value | Ref Range | Performed | Pathologist | | | | | At | Signature | + + + + + + | Vit D, | <12 (L)Comment: <20 | 30 - 150 ng/mL | [facility] | | | 25-Hydroxy | ng/mL Suggest [...] | | | | | performed at [facility], [address] | | | | | | [address], | | | | | | [place] [address] | | | | + + + + + + + + | Specimen | + + | Blood | + + + + + + + | Performing | Address | City/State/Zipcode | Phone Number | | Organization | | | | + + + + + | [facility] | [address] | [place] [address] | [phone] | + + + + + Culture, [...] RESULT | Testing performed at | | [facility] | | | | [facility], [address] [facility] | | LABORATORY | | | | [facility], [place] | | | | | | [address]Ksbltej: Testing | | | | | | performed at [facility], [address] | | | | | | [facility], | | | | | | [place] [address] | | | | + + + + + + + + | Specimen | + + | Body Fluid | + + + + + + + | Performing | Address | City/State/Zipcode | Phone Number | | Organization | | | | + + + + + | [facility] | [address] | [place] [address] | [phone] | + + + + + ECHO [...] Testing | 1.7 - 2.4 mg/dL | [facility] | | | | performed at [facility], [address] | | LABORATORY | | | | [place], | | | | | | [place] [address] | | | | + + + + + + + + | Specimen | + + | Blood | + + + + + + + | Performing | Address | City/State/Zipcode | Phone Number | | Organization | | | | + + + + + | [facility] | [address] | [place] [address] | [phone] | + + + + + Basic [...] | | | | | performed at [facility], [address] | | | | | | [address], | | | | | | [place] [address] | | | | + + + + + + + + | Specimen | + + | Blood | + + + + + + + | Performing | Address | City/State/Zipcode | Phone Number | | Organization | | | | + + + + + | [facility] | [address] | [place] [address] | [phone] | + + + + + CBC [...] at | | | | | | [facility], [address] [facility] | | | | | | [place] | | | | | | [address] | | | | + + + + + + + + | Specimen | + + | Blood | + + + + + + + | Performing | Address | City/State/Zipcode | Phone Number | | Organization | | | | + + + + + | [facility] | [address] | [place] [address] | [phone] | + + + + + VAS [...] | | | | | | at [facility];[address] [place] [address] | | | | | | [facility];[place] [address] | | | | + + + + + + + + | Specimen | + + | Blood | + + + + + + + | Performing | Address | City/State/Zipcode | Phone Number | | Organization | | | | + + + + + | [facility] | [address] | [place] [address] | [phone] | + + + + + B Type Natriuretic Peptide (10/28/2018 8:35 PDT) + + + + + + | Component | Value | Ref Range | Performed | Pathologist | | | | | At | Signature | + + + + + + | BNP | 101.07 (H)Comment: | 0 - 100 pg/mL | [facility] | | | | Testing performed at | | LABORATORY | | | | [facility];[address] | | [address];[place] [address] | | | | + + + + + + + + | Specimen | + + | Blood | + + + + + + + | Performing | Address | City/State/Zipcode | Phone Number | | Organization | | | | + + + + + | [facility] | [address] | [place] [address] | [phone] | + + + + + Basic [...] | | | | | | MDRD DCMS traceable | | | | | | equation.Testing | | | | | | performed at [facility];[address] | | | | | | [facility];[place], [place] | | | | | | [address] | | | | + + + + + + + + | Specimen | + + | Blood | + + + + + + + | Performing | Address | City/State/Zipcode | Phone Number | | Organization | | | | + + + + + | [facility] | [address] | [place] [address] | [phone] | + + + + + CBC [...] | | | | performed at [facility];[address] | | | | | | [address];[place] | | | | | | [address] | | | | + + + + + + + + | Specimen | + + | Blood | + + + + + + + | Performing | Address | City/State/Zipcode | Phone Number | | Organization | | | | + + + + + | [facility] | [address] | [place] [address] | [phone] | + + + + + CT [...] | | | | performed at [facility];[address] | | | | | | [address];[place], [place] | | | | | | [address] | | | | + + + + + + + + | Specimen | + + | Blood | + + + + + + + | Performing | Address | City/State/Zipcode | Phone Number | | Organization | | | | + + + + + | [facility] | [address] | [place] [address] | [phone] | + + + + + CBC [...] [facility] | | | | performed at [facility], [address] | | LABORATORY | | | | [facility], | | | | | | [place] [address] | | | | + + + + + + + + | Specimen | + + | Blood | + + + + + + + | Performing | Address | City/State/Zipcode | Phone Number | | Organization | | | | + + + + + | [facility] | [address] | [place] [address] | [phone] | + + + + + ECG [...] [facility] | | | | performed at [facility], [address] | | LABORATORY | | | | [address], | | | | | | [place] [address] | | | | + + + + + + + + | Specimen | + + | Blood | + + + + + + + | Performing | Address | City/State/Zipcode | Phone Number | | Organization | | | | + + + + + | [facility] | [address] | [place] [address] | [phone] | + + + + + XR [...] + + | Performing | Address | City/State/[facility] | Phone Number | | Organization [...] | | | abnormalities are grossly identified. Patient Case Manager sections are | | | submitted [...] interpretation was | | | performed by [employer], [facility] | | | [place], [place] (Fine Grade Operator: Víctor Livingston M.D.; | | | CLIA#: [id number]).The technical component was performed by [employer] | | | [employer], [address] [place] [address] (Fine Grade Operator: | | | Nadiya Sharma MD; CLIA# [id number]). Diagnostician: Víctor Livingston | | | MDPathologistElectronically [...] | | LABORATORY | | | | Blvd;[place] [address] | | | | + + + [...] RESULT | Testing performed at | | [facility] | | | | L, [address] [facility] | | LABORATORY | | | | [place], [place] | | | | | | [address]Nfzvzby: Testing | | | | | | performed at [facility], [address] | | | | | | [address] [place], [place] | | | | | | [address] | | | | + + + + + + + + | Specimen | + + | | + + + + + + + | Performing | Address | City/State/Zipcode | Phone Number | | Organization | | | | + + + + + | [facility] | [address] | [place] [address] | [phone] | + + + + + Culture, [...] | | [facility] | | | | [facility], [address] [facility] | | LABORATORY | | | | [place] | | | | | | [address]Elfluav: Testing | | | | | | performed at [facility], [address] | | | | | | [address], | | | | | | [place] [address] | | | | + + + + + + + + | Specimen | + + | Tissue | + + + + + + + | Performing | Address | City/State/Zipcode | Phone Number | | Organization | | | | + + + + + | [facility] | [address] | [place] [address] | [phone] | + + + + + Type [...] + + + | BB [facility]AND | [id number] | | [facility] | | | | | | LABORATORY | | + + + + + + | BB BAND | Testing performed at | | [facility] | | | | [facility];[address] | | LABORATORY | | | | [address];[place] [address] | | | | + + + + + + + + | Specimen | + + | Blood | + + + + + + + | Performing | Address | City/State/Zipcode | Phone Number | | Organization | | | | + + + + + | [facility] | [address] | [place] [address] | [phone] | + + + + + POCT Test, Urine, Qual (10/24/2018 13:27 PDT) + + + + + + | Component | Value | Ref Range | Performed | Pathologist | | | | | At | Signature | + + + + + + | HCG, | NEGATIVEComment: Testing | NEG | [facility] | | | Quantitativ | performed at [facility];[address] | | LABORATORY | | | [address] | [address];[place], [place] | | | | | | [address] | | | | + + + + + + + + | Specimen | + + | | + + + + + + + | Performing | Address | City/State/Zipcode | Phone Number | | Organization | | | | + + + + + | [facility] | [address] | [place] [address] | [phone] | + + + + + documented [...] | | | | First dose on [facility] 11/02/18 at | | | | | [...] | | | | | dose on [facility] 10/26/18 at 2100, Do | | | [...] | | +---+---+ + +-------+ +--------+---+---+ | [facility] | Given | 10/25/19 | [...]
--- OUTSIDE RECORDS SUMMARY | ~2018-12-31 | XMS | Encounter Summary ---
Demographics + + + | Address | [address] | | | [place] [address] | + + + | Home Phone [...] | Author | [facility] | | | and [place] | + + + | Organization | [facility] | | | and [place] | + + + | Address | Unknown | + + + | Phone | Unavailable | + + + Support + + + + + | Name | Relationship | Address | Phone | + + + + + | Fabienne Juarez | ECON | [place] | | | | | [address] | | + + + + + Care Team Providers + +------+ + | Care Inventory Administrator Name | Role | Phone | + +------+ + | No, Physician | PCP | Unavailable | + +------+ + Encounter Details +--------+ + + + + | Date | Type | Department | Care Team | Description | +--------+ + + + + | 10/18/ | Orders Only | [facility] | Miah Monique | | | 2018 | | [facility] | MD Fab [address] | | | | | [address] | [address] | | | | | [address] | [place] [address] | | | | | [place], [place] | [phone] | | | | | [address] | | | | | | [phone] | | | +--------+ + + + [...] LAB | | SEEN Testing performed at [facility];[address] [place] [address];[place] [address] | | + + + + +---------+ [...] | | CLOUDY | | | RBC'S 45324 | | | TOTAL NUCLEATED | | | CELLS 29 | | | NEUTROPHILS 83 | | | | | | LYMPHOCYTES 14 | | | | | | EOSINOPHILS 3 | | | CELLS | | | COUNTED 100 | | | Testing performed at [facility];[address] [place] [address];[place] [address] | | + + + + +---------+ + + | Performing | Address | City/State/Zipcode | Phone Number | | Organization | | | | + +---------+ + + | EXTERNAL LAB | | | | + +---------+ + + documented in this encounter Visit Diagnoses Not on filedocumented in this encounter"
--- OUTSIDE RECORDS SUMMARY | ~2018-12-31 | XMS | Encounter Summary ---
Demographics + + + | Address | [address] | | | [place] [address] | + + + | Home Phone | | + + + | Preferred Language | Unknown | + + + | Marital Status | | + + + | Lutheran Affiliation | Unknown | + + + | Race | Unknown | + + + | Ethnic Group | Unknown | + + + Author + + + | Author | [facility] | | | and [place] | + + + | Organization | [facility] | | | and [place] | + + + | Address | Unknown | + + + | Phone | Unavailable | + + + Support + + + + + | Name | Relationship | Address | Phone | + + + + + | Fabienne Juarez | ECON | [place] | | | | | [address] | | + + + + + Care Team Providers + +------+ + | Care Continuous Crusher Operator Name | Role | Phone | [...] | REQUEST) | | | | [address] [place], [place] | [address] | | | | | [address] | [place] [address] | | | | | [phone] | [phone] | | | | | | | [...]
--- OUTSIDE RECORDS SUMMARY | ~2018-12-31 | XMS | Encounter Summary ---
Demographics + + + | Address | [address] | | | [place] [address] | + + + | Home Phone | | + + + | Preferred Language | Unknown | + + + | Marital Status | | + + + | Christian Affiliation | Unknown | + + + | Race | Unknown | + + + | Ethnic Group | Unknown | + + + Author + + + | Author | [facility] | | | and [place] | + + + | Organization | [facility] | | | and [place] | + + + | Address | Unknown | + + + | Phone | Unavailable | + + + Support + + + + + | Name | Relationship | Address | Phone | + + + + + | Fabienne Juarez | ECON | [place] | | | | | [address] | | + + + + + Care Team Providers + +------+ + | Care Epoxy Fabrication Supervisor Name | Role | Phone | + +------+ + PCP | Unavailable | + +------+ + Encounter Details +--------+ + + + + | Date | Type | Department | Care Team | Description | +--------+ + + + + | 10/06/ | Hospital | [facility] | Conversion | | | 2019 | Encounter | CENTER [facility] | Transaction, | | | | | CLINIC [address] | Provider Unknown | | | | | [place], [place] | | | | | | [address] | (Fax) | | | | | [phone] | | | +--------+ + + + [...] | Blood Pressure | 118/64 | 10/06/2018 1043 PDT | + + + + | Pulse | - | - | + + + + | Temperature | - | - | + + + + | Respiratory Rate | - | - | + + + + | Oxygen Saturation | - | - | + + + + | Inhaled Oxygen | - | - | | Concentration | | | + + + + | Weight | 119 kg (262 lb 5.6 | 10/06/2018 1043 PDT | | | oz) | | + + + + | Height | 152.4 cm (5') | 10/06/2018 1043 PDT | + + + + | Body Mass Index | 51.24 | 10/06/2018 1043 PDT | + + + + documented [...] + + documented in this encounter Results MRSA NAAT (10/06/2018 11:00 PDT) + + | Specimen | + + | | + + + + + | Narrative | Performed At | + + + | SOURCE | EXTERNAL LAB | | NARES(NOSE) MRSA | | | PCR NEGATIVE | | | Testing performed at [facility];[address] [place] [address];[place] [address] | | + + + + +---------+ + + | Performing | Address | City/State/Zipcode | Phone Number | | Organization | | | | + +---------+ + + | EXTERNAL LAB | | | | + +---------+ + + External Lab: CBC (10/06/2018 11:00 PDT) + + + + [...] | | | Basophils | performed at [facility], [address] | LAB | | | | [address], | | | | | | [place] [address] | | | | + + + [...] | | | | performed at [facility], [address] | | | | | | [address], | | | | | | [place] [address] | | | | + + + [...] | | | | performed at [facility], [address] | | | | | | [facility], | | | | | | [place] [address] | | | | + + + [...]
--- OUTSIDE RECORDS SUMMARY | ~2018-12-31 | XMS | Encounter Summary ---
Demographics + + + | Address | [address] | | | [place] [address] | + + + | Home Phone [...] + + | Author | [facility] (Historical as of | | | 10-21-18) | + + + | Organization | [facility] (Historical as of | | | 10-21-18) | + + + | Address | Unknown | + + + | Phone | Unavailable | + + + Support + + + + + | Name | Relationship | Address | Phone | + + + + + | Fabienne Juarez | ECON | [place] | | | | | [address] | | + + + + + Care Team Providers + +------+ + | Care Appointment Coordinator Name | Role | Phone | + +------+ + | None, Per Pt | PCP | 000-0000 | + +------+ + Encounter Details +--------+ + + + + | Date | Type | Department | Care Team | Description | +--------+ + + + + | 10/17/ | Orders Only | [facility] | Miah Monique | Pain due to hip | | 2018 | | ORTHO SPORTS | MD Fab [address] | joint prosthesis, | | | | MEDICINE RADHA | Ray Dewitt | initial encounter | | | | [address] | [place] | ([facility]) (Primary Dx) | | | | [place], [place] | [address] | | | | | [address] | [phone] | | | | | [phone] | | | +--------+ + + + [...] | | + +--------+ + + | FLUID CULT W/GRAM STAIN | Routin | Pain due to hip | Expected: | | | e | joint prosthesis, | 10/17/2018, Expires: | | | | initial encounter | 10/18/2019 | | | | (HCC) | | + +--------+ + + | Body Fluid Cell Count | Routin | Pain due to hip | Expected: | | | e | joint prosthesis, | 10/17/2018, Expires: | | | | initial encounter | 10/18/2019 | | | | (HCC) | | + +--------+ + + | Body fluid crystal | Routin | Pain due to hip | Expected: | | | e | joint prosthesis, | 10/17/2018, Expires: | | | | initial encounter | 10/18/2019 | | | | ([facility]) | | + +--------+ + + as of this encounter Visit Diagnoses + + | Diagnosis | + + | 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
--- OUTSIDE RECORDS SUMMARY | ~2018-12-31 | XMS | Encounter Summary ---
Demographics + + + | Address | [address] | | | [place] [address] | + + + | Home Phone | | + + + | Preferred Language | Unknown | + + + | Marital Status | | + + + | Mandaen Affiliation | Unknown | + + + | Race | Unknown | + + + | Ethnic Group | Unknown | + + + Author + + + | Author | [facility] (Historical as of | | | 10-21-18) | + + + | Organization | [facility] (Historical as of | | | 10-21-18) | + + + | Address | Unknown | + + + | Phone | Unavailable | + + + Support + + + + + | Name | Relationship | Address | Phone | + + + + + | Fabienne Juarez | ECON | [place] | | | | | [address] | | + + + + + Care Team Providers + +------+ + | Care Training Director Name | Role | Phone | + +------+ + | None, Per Pt | PCP | 000-0000 | + +------+ + Encounter Details +--------+ + + + + | Date | Type | Department | Care Team | Description | +--------+ + + + + | 10/16/ | Telephone | [facility] | Miah Monique | | | 2018 | | ORTHO [facility]TS | MD Fba [address] | | | | | MEDICINE JAY EM | Ray Dewitt | | | | | [address] | [facility] | | | | | [place] | [address] | | | | | [address] | [phone] | | | | | [phone] | | | +--------+ + + + [...]
--- OUTSIDE RECORDS SUMMARY | ~2018-12-31 | XMS | Encounter Summary ---
Demographics + + + | Address | [address] | | | [place] [address] | + + + | Home Phone | | + + + | Preferred Language | Unknown | + + + | Marital Status | | + + + | Moravian Affiliation | Unknown | + + + | Race | Unknown | + + + | Ethnic Group | Unknown | + + + Author + + + | Author | [facility] (Historical as of | | | 10-21-18) | + + + | Organization | [facility] (Historical as of | | | 10-21-18) | + + + | Address | Unknown | + + + | Phone | Unavailable | + + + Support + + + + + | Name | Relationship | Address | Phone | + + + + + | Fabienne Juarez | ECON | [place] | | | | | [address] | | + + + + + Care Team Providers + +------+ + | Care Stem Sizer Name | Role | Phone | + +------+ + | None, Per Pt | PCP | 000-0000 | + +------+ + Encounter Details +--------+ + + + + | Date | Type | Department | Care Team | Description | +--------+ + + + + | 10/17/ | Orders Only | [facility] | Miah Monique | Pain due to hip | | 2018 | | ORTHO SPORTS | MD Fab [address] | joint prosthesis, | | | | MEDICINE RADHA | Ray Dewitt | initial encounter | | | | [address] | [place] | ([facility]) (Primary Dx) | | | | [place], [place] | [address] | | | | | [address] | [phone] | | | | | [phone] | | | +--------+ + + + [...] encounter | 10/18/2019 | | | | ([facility]) | | + +--------+ + + as of this encounter Visit Diagnoses + + | Diagnosis | + + | 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
--- OUTSIDE RECORDS SUMMARY | ~2018-12-31 | XMS | Encounter Summary ---
Demographics + + + | Address | [address] | | | [place] [address] | + + + | Home Phone | | + + + | Preferred Language | Unknown | + + + | Marital Status | | + + + | Druze Affiliation | Unknown | + + + | Race | Unknown | + + + | Ethnic Group | Unknown | + + + Author + + + | Author | [facility] | | | and [place] | + + + | Organization | [facility] | | | and [place] | + + + | Address | Unknown | + + + | Phone | Unavailable | + + + Support + + + + + | Name | Relationship | Address | Phone | + + + + + | Fabienne Juarez | ECON | [place] | | | | | [address] | | + + + + + Care Team Providers + +------+ + | Care Warp Dyeing Vat Tender Name | Role | Phone | + +------+ + | Celestine Watters MD | PCP | | + +------+ + Encounter Details +--------+ + + + + | Date | Type | Department | Care Team | Description | +--------+ + + + + | 11/29/ | Telephone | [facility] | Miah Monique | | | 2018 | | MD Mayur CHÁVEZ | | | | | [address] | [address] | | | | | [address] | [place] [address] | | | | | [phone] | [phone] | | | | | | | [...]
--- OUTSIDE RECORDS SUMMARY | ~2018-12-31 | XMS | Encounter Summary ---
Demographics + + + | Address | [address] | | | [place] [address] | + + + | Home Phone | | + + + | Preferred Language | Unknown | + + + | Marital Status | | + + + | Sabianist Affiliation | Unknown | + + + | Race | Unknown | + + + | Ethnic Group | Unknown | + + + Author + + + | Author | [facility] (Historical as of | | | 10-21-18) | + + + | Organization | [facility] (Historical as of | | | 10-21-18) | + + + | Address | Unknown | + + + | Phone | Unavailable | + + + Support + + + + + | Name | Relationship | Address | Phone | + + + + + | Fabienne Juarez | ECON | [place] | | | | | [address] | | + + + + + Care Team Providers + +------+ + | Care Community Case Manager Name | Role | Phone | + +------+ + | None, Per Pt | PCP | 000-0000 | + +------+ + Encounter Details +--------+ + + + + | Date | Type | Department | Care Team | Description | +--------+ + + + + | 10/06/ | Hospital | [facility] | Miah Monique | | | 2018 | Encounter | [facility] [place] | MD Fab [address] | | | | | Preadmission | [place] | | | | | Services [address] | [place], [place] | | | | | [address] [place], [place] | [address] | | | | | [address] | [phone] | | | | | | | [...] the 10/06/18 encounter (Hospital Encounter) wit h [facility] ROOM 3 Medication Sig INSTRUCTIONS citalopram [...] Preparing the bone The hip is a qbhh-[id number]-maodnw joint. The ball is cut from the [...] or nerves Thigh pain Date Last Reviewed: 03/07/201719991515-2821 [employer]. [address] [place] [address]. All righ ts reserved. This information is [...] method | 4.0 - 6.0 % | [facility] | | | is certified by [facility] | | LABORATORY | | | and [...] | | | | | performed at [facility], [address] | | | | | [facility], | | | | | [place] [address] | | | + + + + + + + | Specimen | + + | Blood | + + + + + + + | Performing | Address | City/State/Zipcode | Phone Number | | Organization | | | | + + + + + | [facility] | [address] [place] [address] | [place] [address] | [phone] | | LABORATORY | [place]. | | | + + + + + MRSA by PCR (10/06/2018 11:00 AM) + + + + + | Component | Value | Ref Range | Performed At | + + + + + | SOURCE | NARES(NOSE) | | [facility] | + + + + + | MRSA PCR | NEGATIVEComment: Testing | NEGATIVE | [facility] | | | performed at [facility] | | | | | [address];[place], [place] | | | | | [address] | | | + + + + + + + | Specimen | + + | Nasopharyngeal - | | Nares(Nose) | + + + + + + + | Performing | Address | City/State/Zipcode | Phone Number | | Organization | | | | + + + + + | [facility] | [address] | [place] [address] | | + + + + + [...] | | | | | performed at [facility], [address] | | | | | [address], | | | | | [place] [address] | | | + + + + + + + | Specimen | + + | Blood | + + + + + + + | Performing | Address | City/State/Zipcode | Phone Number | | Organization | | | | + + + + + | [facility] | [address] | [place] [address] | [phone] | | LABORATORY | [address] | | [...] | [facility] | | | performed at [facility], [address] | | LABORATORY | | | [address], | | | | | [place] [address] | | | + + + + + + + | Specimen | + + | Blood | + + + + + + + | Performing | Address | City/State/Zipcode | Phone Number | | Organization | | | | + + + + + | [facility] | [address] | [place] [address] | [phone] | | LABORATORY | [address] | | | + + + + + Type and screen (10/06/2018 11:00 AM) + + + + + | Component | Value | Ref Range | Performed At | + + + + + | ABO/RH(D) | O POSITIVE | | [facility] | + + + + + | ANTIBODY SCREEN | NEGATIVETesting | | [facility] | | | performed at [facility] | | | | | [address];[place], [place] | | | | | [address] | | | + + + + + + + | Specimen | + + | Blood | + + + + + + + | Performing | Address | City/State/Zipcode | Phone Number | | Organization | | | | + + + + + | [facility] | [address] | [place] [address] | | + + + + + in this encounter Visit Diagnoses Not on filein this encounter"
--- OUTSIDE RECORDS SUMMARY | ~2018-12-31 | XMS | Encounter Summary ---
Demographics + + + | Address | [address] | | | [place] [address] | + + + | Home Phone [...] Author | [facility] | | | and [place] | + + + | Organization | [facility] | | | and [place] | + + + | Address | Unknown | + + + | Phone | Unavailable | + + + Support + + + + + | Name | Relationship | Address | Phone | + + + + + | Fabienne Juarez | ECON | [place] | | | | | [address] | | + + + + + Care Team Providers + +------+ + | Care Specialty Cook Name | Role | Phone | + [...] | 11/23/ | Telephone | [facility] | Miah Monique | Medication Refill; | | 2018 | | RADHA [address] | MD [address] | Medication Refill | | | | [place], [place] | [place] | | | | | [address] | [place] [address] | | | | | [phone] | [phone] | | | | | | | [...]
--- OUTSIDE RECORDS SUMMARY | ~2018-12-31 | XMS | Encounter Summary ---
Demographics + + + | Address | [address] | | | [place] [address] | + + + | Home Phone [...] | Author | [facility] | | | and [place] | + + + | Organization | [facility] | | | and [place] | + + + | Address | Unknown | + + + | Phone | Unavailable | + + + Support + + + + + | Name | Relationship | Address | Phone | + + + + + | Fabienne Juarez | ECON | [place] | | | | | [address] | | + + + + + Care Team Providers + +------+ + | Care Bruise Trimmer Name | Role | Phone | + [...] | | | | | encounter | [id number] | | | | | | ([facility]) | Phone: | | | | | | Mechanical | [phone] | | | | | | complication | Fax: | | | | | | of | [phone] | | | | | | prosthetic [...] | | | | | | ([facility]) | | | + + [...] | | | | encounter | | [id number] Phone: | | | | | ([facility]) | | [phone] | | | | | Mechanical | | Fax: | | | | | complication | | [phone] | | | | | of | | | | | | | prosthetic | | | | | | | knee | | | | | | | implant, | | | | | | | initial | | | | | | | encounter | | | | | | | ([facility]) | | | | | | | Procedures | | | | | | | CT REVISE | | | | | | [...] + | 10/24/ | Hospital | [facility] | Miah Monique | Morbid obesity (HCC) | | 2019 - | Encounter | [facility] | MD [address] | (Primary Dx); Pain | | | | CARE FLOOR [address] | in prosthetic joint, | | 11/09/ | | [address] | [place] [address] | initial encounter | | 2019 | | [place], [place] | [phone] | (HCC); Mechanical | | | | [address] | | complication of | | | | [phone] | | prosthetic knee | | | [...] a left total hip arthroplasty rev [facility], comprising of an acetabular component revision. [...] and psychiatry was consulted. He r psychiatry ORNAMENTAL IRON WORKER APPRENTICE was also contacted and she was restarted [...] -11/03/18 Discussed patient with [facility] [phone]. She has a diagnosis of PTSD and [...] TOTAL HIP; Surgeon: Miah Monique MD; Location: [facility] MAIN OR TOTAL HIP ARTHROPLASTY Left 2014 [...] * No resolved hospital problems. * Disposition: half-way Condition: Fair Code Status: Full Code Follow up: Miah Monique MD [facility], [facility] within [facility] [address] In 4 weeks For wound re-check and [...] more often than directed. Talk to your blanket inspector regarding the use of this medicine in [...] should report to your doctor or health day care provider as soon as p ossible: allergic reactions [...] attention (report to your doctor or health day care provider if they continue or are bothersome): diarrhea [...] for pain, tell your doctor or health day care provider if the pain lasts more than 10 [...] if prescribed by your doctor or health day care provider. Do not take aspirin or aspirin-like medicines [...] ou have any questions. Talk to your blanket inspector regarding the use of this medicine in children. Special care may be needed. What side effects may I notice from receiving this medicine? Side effects that you should report to your doctor or health day care provider as soon as p ossible: allergic reactions [...] attention (report to your doctor or health day care provider if they continue or are bothersome): cough [...] this medicine? Tell your doctor or health day care provider if your symptoms do not improve. Do [...] pharmacist, or health care provider. Copyright 2019 [employer] Albuterol; Ipratropium solution for inhalation Brand Name: [...] more often than directed. Talk to your blanket inspector regarding the use of this medicine in children. Special care may be needed. What side effects may I notice from receiving this medicine? Side effects that you should report to your doctor or health day care provider as soon as p ossible: allergic reactions [...] attention (report to your doctor or health day care provider if they continue or are bothersome): blurred [...] pharmacist, or health care provider. Copyright 2019 [employer] Celecoxib capsules Brand Name: Celebrex What is [...] information carefully each time. Talk to your blanket inspector regarding the use of this medicine in children. Special care may be needed. What side effects may I notice from receiving this medicine? Side effects that you should report to your doctor or health day care provider as soon as p ossible: allergic reactions [...] attention (report to your doctor or health day care provider if they continue or are bothersome): constipation [...] this medicine? Tell your doctor or health day care provider if your pain does not get better. [...] roke, talk with your doctor or health day care provider. Do not take medicines such as ibuprofen [...] not take at bedtime. Talk to your blanket inspector regarding the use of this medicine in children. While this drug m ay be prescribed for selected conditions, precautions do apply. What side effects may I notice from receiving this medicine? Side effects that you should report to your doctor or health day care provider as soon as p ossible: blood in [...] attention (report to your doctor or health day care provider if they continue or are bothersome): headache [...] this medicine? Visit your doctor or health day care provider for regular checks on your progress. Check yo ur blood pressure regularly. Ask your doctor or health day care provider what your blood pre ssure should be, [...] information carefully each time. Talk to your blanket inspector regarding the use of this medicine in children. Special care may be needed. What side effects may I notice from receiving this medicine? Side effects that you should report to your doctor or health day care provider as soon as p ossible: allergic reactions like skin rash, itching or hives, swelling of the face, lips, or tong ue worsening of mood, thoughts or actions of suicide or dying Side effects that usually do not require medical attention (report to your doctor or health day care provider if they continue or are bothersome): constipation [...] this medicine? Visit your doctor or health day care provider for regular checks on your progress. You may want to keep a record at home of how you feel your condition is responding to treatment. You may want to share this information with your doctor or health day care provider at each vis it. You should contact your doctor or health day care provider if your seizures get worse or if you have any new types of seizures. Do not stop taking this medicine or any of your seiz ure medicines unless instructed by your doctor or health day care provider. Stopping your me dicine suddenly can increase [...] dying should be reported to your health day care provider right away. Women who become while using this medicine may enroll in the [place] [employer] by calling . [...] information carefully each time. Talk to your blanket inspector regarding the use of this medicine in children. Special care may be needed. What side effects may I notice from receiving this medicine? Side effects that you should report to your doctor or health day care provider as soon as p ossible: allergic reactions [...] attention (report to your doctor or health day care provider if they continue or are bothersome): constipation [...] to an official disposal site. Contact the [facility] at [phone] or your [facility] to find a site. If you [...] this medicine? Tell your doctor or health day care provider if your pain does not go away, [...] pharmacist, or health care provider. Copyright 2019 [employer] Nicotine skin patches Brand Names: Habitrol, Nicoderm [...] the same area again. Talk to your blanket inspector regarding the use of this medicine in children. Special care may be needed. What side effects may I notice from receiving this medicine? Side effects that you should report to your doctor or health day care provider as soon as p ossible: allergic reactions [...] attention (report to your doctor or health day care provider if they continue or are bothersome): diarrhea [...] only last for a few days. Call [facility] doctor or health day care provider if skin redness does not go away after 4 days, if your skin swells, or if you get a rash. If you are a diabetic and you quit smoking, the effects of insulin may be increased and you may need to reduce your insulin dose. Check with your doctor or health day care provider ab out how you should adjust your [...] information carefully each time. Talk to your blanket inspector regarding the use of this medicine in children. While this drug m ay be prescribed for children as young as 13 years for selected conditions, precautions do a pply. What side effects may I notice from receiving this medicine? Side effects that you should report to your doctor or health day care provider as soon as p ossible: allergic reactions [...] attention (report to your doctor or health day care provider if they continue or are bothersome): changes [...] this medicine? Visit your doctor or health day care provider for regular checks on your progress. It may b e several weeks before you see the full effects of this medicine. Notify your doctor or [facility] th day care provider if your symptoms get worse, if you have new symptoms, if you are having an unusual effect from this medicine, or if you feel out of control, very discouraged or th ink you might harm yourself or others. Do not suddenly stop taking this medicine. You may need to gradually reduce the dose. Ask y our doctor or health day care provider for advice. You may get dizzy or [...] allergies without asking your doctor or health day care provider for advice. Some ingredients can increase possible side effects. Your mouth may get dry. Chewing sugarless gum or sucking hard candy, and drinking plenty of water will help. This medicine can reduce the response of your body to heat or cold. Dress clothing designer cold weat her and stay hydrated in [...] pharmacist, or health care provider. Copyright 2019 [employer] Oxycodone tablets or capsules Brand Names: Dazidox, [...] information carefully each time. Talk to your blanket inspector regarding the use of this medicine in children. Special care may be needed. What side effects may I notice from receiving this medicine? Side effects that you should report to your doctor or health day care provider as soon as p ossible: allergic reactions [...] attention (report to your doctor or health day care provider if they continue or are bothersome): constipation [...] to an official disposal site. Contact the [facility] at [phone] or your [facility] to find a site. If you [...] this medicine? Tell your doctor or health day care provider if your pain does not go away, [...] pharmacist, or health care provider. Copyright 2019 [employer] Prednisone tablets Brand Names: Deltasone, Predone, Sterapred, [...] avoid any side effects. Talk to your blanket inspector regarding the use of this medicine in children. Special care may be needed. What side effects may I notice from receiving this medicine? Side effects that you should report to your doctor or health day care provider as soon as p ossible: allergic reactions [...] attention (report to your doctor or health day care provider if they continue or are bothersome): confusion, [...] ta lk to your doctor or health day care provider. You may need to miss a dose [...] this medicine? Visit your doctor or health day care provider for regular checks on your progress. If [...] have surgery, tell your doctor or health day care provider that you hav e taken this medicine within the last twelve months. Ask your doctor or health day care provider about your diet. You may need to lower the amou nt of salt you eat. This medicine may affect blood sugar levels. If you have diabetes, check with your doctor o r health day care provider before you change your diet or the dose of your diabetic medicine . NOTE:This sheet is a summary. It may not cover all possible information. If you have questi ons about this medicine, talk to your doctor, pharmacist, or health care provider. Copyright 2019 [employer] Senna tablets or capsules Brand Names: Black [...] e often than directed. Talk to your blanket inspector regarding the use of this medicine in children. While this medici ne may be prescribed for children as young as 2 years for selected conditions, precautions d o apply. What side effects may I notice from receiving this medicine? Side effects that you should report to your doctor or health day care provider as soon as p ossible: diarrhea muscle weakness nausea, vomiting unusual weight loss Side effects that usually do not require medical attention (report to your doctor or health day care provider if they continue or are bothersome): bloating [...] returning, check with yo doctor or health day care provider. NOTE:This sheet is a summary. It may not cover all possible information. If you have questi ons about this medicine, talk to your doctor, pharmacist, or health care provider. Copyright 2019 [employer] Tramadol tablets Brand Name: Ultram What is [...] information carefully each time. Talk to your blanket inspector regarding the use of this medicine in children. Special care may be needed. What side effects may I notice from receiving this medicine? Side effects that you should report to your doctor or health day care provider as soon as p ossible: allergic reactions [...] attention (report to your doctor or health day care provider if they continue or are bothersome): constipation [...] this medicine? Tell your doctor or health day care provider if your pain does not go away, [...] 3 days, call your doctor or health day care provider. Your mouth may get dry. Chewing sugarless [...] Harpal Ray MD - 11/09 1429 PDT [facility]: Hospitalist Progress Note Pt: Sylvie Ramsey [...] -11/03/18 Discussed patient with [facility] [phone]. She has a diagnosis of PTSD and [...] erHarpal kincaid MD - 06/2018 1200 PDT [facility]: Hospitalist Progress Note Pt: Sylvie Ramsey [...] -11/03/18 Discussed patient with [facility] [phone]. She has a diagnosis of PTSD and [...] arpal Fine MD - 11/07/2018 1404 PDT [facility]: Hospitalist Progress Note Hospital Day: 14 [...] and psychiat ry was consulted. Her psychiatry ORNAMENTAL IRON WORKER APPRENTICE was also contacted and she was restarted [...] 11/07/18 0411 PROCALCITONI 0.10 Imaging: Reviewed in [facility], no new results. PROBLEM LIST Principal [...] -11/03/18 Discussed patient with [facility] [phone]. She has a diagnosis of PTSD and [...] this note might be different from the [facility]: PULMONOLOGY Progress Note Date of [...] TOTAL HIP; Surgeon: Miah Monique MD; Location: [facility] MAIN OR TOTAL HIP ARTHROPLASTY Left 2014 [...] MIGDALIA Elizalde - 11/06/2018 1009 PDT . [facility]: Orthopedic Surgery Progress Note Hospital Day: [...] MIGDALIA Thompson has created this entry using [employer] and [employer] macros. The entry has been reviewed and there may still exist sound alike word errors. Kush Miller MD - 11/06/2018 0802 PDT [facility]: Hospitalist Progress Note Pt: Sylvie Ramsey [...] agitaitation and psychiatry was consulted. Her psychiatry ORNAMENTAL IRON WORKER APPRENTICE was also contacted and she was restarted [...] hours. No results for input(s): PHART, PO2ART, TNG2TVM, Y3STYGQC, BEART in the last 168 hours. No results for input(s): APTT, INR, PTT in the last 168 hours. No results for input(s): TSH in the last 168 hours. Invalid input(s): T3FREE, FREET4 No results for input(s): TROPONINT in the last 168 hours. Invalid input(s): CKTOTAL, TROPONINI, CKMBINDEX Microbiology Results (72 hrs) Procedure Component Value Units Date/Time Culture, Respiratory, Lower, Smear [[id number]] Collected: 10/29/181728 Order Status: Completed Lab Status: [...] HELD 48 HOURS. RESULT Testing performed at [facility], [address] [place] [address] Comment: Testing performed at [facility], [address] [place] [address] RADIOLOGY: Recent Results (from the past 360 [...] a neoplastic process. Signed by: Korina Donovan, Iglles Sign Date/Time: 10/27/2018 6:46 PM VAS Lower [...] 11/03/18 Discussed patient with [facility] [phone]. She has a diagnosis o f PTSD [...] and managing patient and counseling/coordination. Dictation software, [employer], used which may contain error for similar [...] Donovan Loja PA - 11/05/2018 1052 PDT [facility]: Orthopedic Surgery Progress Note Hospital Day: [...] MIGDALIA Thompson has created this entry using [employer] and [employer] macros. The entry has been reviewed and there may still exist sound alike word errors. Kush Miller MD - 11/05/2018 0944 PDT [facility]: Hospitalist Progress Note Pt: Sylvie Ramsey AGE/SEX: 48 y.o. female ROOM[facility]9119[facility]01 : 1970 PCP: No Physician on file [...] agitaitation and psychiatry was consulted. Her psychiatry ORNAMENTAL IRON WORKER APPRENTICE was also contacted and she was restarted [...] hours. No results for input(s): PHART, PO2ART, KJI0EYH, B6BKKPYV, BEART in the last 168 hours. No results for input(s): APTT, INR, PTT in the last 168 hours. No results for input(s): TSH in the last 168 hours. Invalid input(s): T3FREE, FREET4 No results for input(s): TROPONINT in the last 168 hours. Invalid input(s): CKTOTAL, TROPONINI, CKMBINDEX Microbiology Results (72 hrs) Procedure Component Value Units Date/Time Culture, Respiratory, Lower, Smear [[id number]] Collected: 10/29/181728 Order Status: Completed Lab Status: [...] HELD 48 HOURS. RESULT Testing performed at [facility], [address] [place] [address] Comment: Testing performed at [facility], [address] [place] [address] RADIOLOGY: Recent Results (from the past 360 [...] 11/03/18 Discussed patient with [facility] [phone]. She has a diagnosis o f PTSD [...] and managing patient and counseling/coordination. Dictation software, [employer], used which may contain error for similar [...] off. Please call with any que stions/concerns. [phone]. Shanice Rahman RN tump, Lala Pennington RN [...] might be different from t anibal original. [facility]: Orthopedic Surgery Progress Note Hospital Day: [...] MIGDALIA Thompson has created this entry using [employer] and [employer]. The entry has been reviewed and there may still exist sound alike word errors. Kush Miller MD - 11/04/2018 1150 PDT [facility]: Hospitalist Progress Note Pt: Sylvie Ramsey [...] hours. No results for input(s): PHART, PO2ART, TTB8RYK, S2JTATCF, BEART in the last 168 hours. No results for input(s): APTT, INR, PTT in the last 168 hours. No results for input(s): TSH in the last 168 hours. Invalid input(s): T3FREE, FREET4 No results for input(s): TROPONINT in the last 168 hours. Invalid input(s): CKTOTAL, TROPONINI, CKMBINDEX Microbiology Results (72 hrs) Procedure Component Value Units Date/Time Culture, Respiratory, Lower, Smear [[id number]] Collected: 10/29/181728 Order Status: Completed Lab Status: [...] HELD 48 HOURS. RESULT Testing performed at [facility], [address] [place] [address] Comment: Testing performed at [facility], [address] [place] [address] RADIOLOGY: Recent Results (from the past 360 [...] of a neoplastic process. Signed by: Korina oDnovan Amit Sign Date/Time: 10/27/2018 5:[address] [...] 11/03/18 Discussed patient with [facility] [phone]. She has a diagnosis o f PTSD [...] and managing patient and counseling/coordination. Dictation software, [employer], used which may contain error for similar [...] to have regu lar p.o. Intake. Per furnace process supervisor note oxygenation is improving. 1. Pain in prosthetic joint, initial encounter ([facility]) 2. Mechanical complication of prosthetic knee implant, initial encounter ([facility]) 3. Mechanical instability of hip prosthesis ([facility]) 4. Shortness of breath 5. Acute respiratory failure with hypoxia ([facility]) Past Medical History: Diagnosis Date Anxiety Anxious depression Arthralgia Arthritis Asthma not using inhalers DDD (degenerative disc disease), lumbar Deliberate self-cutting history of Depression Heartburn Hemorrhage of gastrointestinal tract 2015 upper and lower due ulcers Morbid obesity with BMI of 50.0-59.9, adult ([facility]) Pain in prosthetic joint ([facility]) with instability Panic attacks states [...] doing mobility exercises. Security, risk, pcc, stepdown medication care manager, primary md, and lead rn pre sent with bedside rn. Pt crying and yelling that she doesn't want to "be here". Per policy d isruptive/violent pt paperwork filled out. Situation and pt expectations reviewed by risk jaime arboleda medication care manager with pt. Sitter at bedside currently. [...] the room, pt through breakfast tray at [facility]. Dada mares called by staff anesthetist. pt. also stated during session everything we have been doing for her is wrong. eon Calvin ENVIRONMENTAL EPIDEMIOLOGIST - 11/03/2018 0818 PDTPatient found to have High Flow Nasal Cannula out of nostrils and low o xygen saturations of 77%. Patient declined bipap, however let me place cannula in nostrils. Patient refused nebulizer treatment and stated she wants to get out of here. HFNC 60L 49% , Spo2 94% Kush Ge MD - 11/03/2018 0744 PDT [facility]: Hospitalist Progress Note Pt: Sylvie Ramsey [...] hours. No results for input(s): PHART, PO2ART, CCM1TTZ, J8GOBLUK, BEART in the last 168 hours. No results for input(s): APTT, INR, PTT in the last 168 hours. No results for input(s): TSH, T3FREE in the last 168 hours. Invalid input(s): FREET4 No results for input(s): TROPONINT in the last 168 hours. Invalid input(s): CKTOTAL, TROPONINI, CKMBINDEX Microbiology Results (72 hrs) Procedure Component Value Units Date/Time Culture, Respiratory, Lower, Smear [[id number]] Collected: 10/29/181728 Order Status: Completed Lab Status: [...] HELD 48 HOURS. RESULT Testing performed at [facility], [address] [place] [address] Comment: Testing performed at [facility], [address] [place] [address] RADIOLOGY: Recent Results (from the past 360 [...] - Discussed patient with [facility] [phone]. She has a diagnosis of PTSD a [...] making capacity - consulted psychiatry. Appreciate recs. finishing manager to attempt to obtain more information [...] to be transfer to a hospital in [place], or that she was goi ng to call the police and maxim the hospital. , lead nurse, vocational case manager and risk notified. Pt remained [...] time and continue to be managed by furnace process supervisor and hospitalist . No new orthopedics events 1. Pain in prosthetic joint, initial encounter ([facility]) 2. Mechanical complication of prosthetic knee implant, initial encounter ([facility]) 3. Mechanical instability of hip prosthesis ([facility]) 4. Shortness of breath 5. Acute respiratory failure with hypoxia [facility] [facility] Past Medical History: Diagnosis Date Anxiety Anxious depression Arthralgia Arthritis Asthma not using inhalers DDD (degenerative disc disease), lumbar Deliberate self-cutting history of Depression Heartburn Hemorrhage of gastrointestinal tract 2015 upper and lower due ulcers Morbid obesity with BMI of 50.0-59.9, adult ([facility]) Pain in prosthetic joint (HCC) [...] weightbearing Continue DVT prophylaxis Continue hospitalist and furnace process supervisor management for comorbidities plan will be to eventua lly go to rehab or SNF once cleared by specialist Emilio Moreno 11/02/2018 Moses Solorzano, PT - 11/02/2018 1259 PDT 11/02/18 1259 PT Visit Summary PT Visit Type Missed Visit (patient unavailable) (Tele psych consult in progress) Next Visit Information 11/02, LTHA, 2PA Kush Miller MD - 11/02/2018 0744 PDT [facility]: Hospitalist Progress Note Pt: Sylvie Ramsey [...] hours. No results for input(s): PHART, PO2ART, RJJ1ADX, [id number], BEART in the last 168 hours. No results for input(s): APTT, INR, PTT in the last 168 hours. No results for input(s): TSH, T3FREE in the last 168 hours. Invalid input(s): FREET4 No results for input(s): TROPONINT in the last 168 hours. Invalid input(s): CKTOTAL, TROPONINI, CKMBINDEX Microbiology Results (72 hrs) Procedure Component Value Units Date/Time Culture, Respiratory, Lower, Smear [[id number]] Collected: 10/29/181728 Order Status: Completed Lab Status: [...] HELD 48 HOURS. RESULT Testing performed at [facility], [address] [place] [address] Comment: Testing performed at [facility], [address] [place] [address] RADIOLOGY: Recent Results (from the past 360 [...] making capacity - consulted psychiatry. Appreciate recs. finishing manager to attempt to obtain more information [...] and managing patient and counseling/coordination. Dictation software, [employer], used which may contain error for similar [...] continues to be managed by hospitalist and furnace process supervisor and is currently on BiPAP 1. Pain in prosthetic joint, initial encounter ([facility]) 2. Mechanical complication of prosthetic knee implant, initial encounter ([facility]) 3. Mechanical instability of hip prosthesis ([facility]) 4. Shortness of breath 5. Acute respiratory failure with hypoxia ([facility]) Past Medical History: Diagnosis Date Anxiety Anxious depression Arthralgia Arthritis Asthma not using inhalers DDD (degenerative disc disease), lumbar Deliberate self-cutting history of Depression Heartburn Hemorrhage of gastrointestinal tract 2015 upper and lower due ulcers Morbid obesity with BMI of 50.0-59.9, adult ([facility]) Pain in prosthetic joint ([facility]) with instability Panic attacks states [...] Miller MD - 0 11/01/2018 0736 PDT [facility]: Hospitalist Progress Note Pt: Sylvie Ramsey [...] hours. No results for input(s): PHART, PO2ART, HGE4WVX, H2QMEQMR, BEART in the last 168 hours. No results for input(s): APTT, INR, PTT in the last 168 hours. No results for input(s): TSH, T3FREE in the last 168 hours. Invalid input(s): FREET4 No results for input(s): TROPONINT in the last 168 hours. Invalid input(s): CKTOTAL, TROPONINI, CKMBINDEX Microbiology Results (72 hrs) Procedure Component Value Units Date/Time Culture, Respiratory, Lower, Smear [[id number]] Collected: 10/29/181728 Order Status: Completed Lab Status: [...] HELD 48 HOURS. RESULT Testing performed at [facility], [address] [place] [address] Comment: Testing performed at [facility], [address] [place] [address] RADIOLOGY: Recent Results (from the past 360 [...] and managing patient and counseling/coordination. Dictation software, [employer], used which may contain error for similar [...] Pain in prosthetic joint, initial encounter ([facility]) 2. Mechanical complication of prosthetic knee implant, initial encounter ([facility]) 3. Mechanical instability of hip prosthesis ([facility]) 4. Shortness of breath 5. Acute respiratory failure with hypoxia ([facility]) Past Medical History: Diagnosis Date Anxiety Anxious depression Arthralgia Arthritis Asthma not using inhalers DDD (degenerative disc disease), lumbar Deliberate self-cutting history of Depression Heartburn Hemorrhage of gastrointestinal tract 2015 upper and lower due ulcers Morbid obesity with BMI of 50.0-59.9, adult ([facility]) Pain in prosthetic joint ([facility]) with instability Panic attacks states [...] might be different fro m the original. [facility]: Hospitalist Progress Note Pt: Sylvie Ramsey [...] hours. No results for input(s): PHART, PO2ART, YBD9IKE, R3KTVUKK, BEART in the last 168 hours. No results for input(s): APTT, INR, PTT in the last 168 hours. No results for input(s): TSH, T3FREE in the last 168 hours. Invalid input(s): FREET4 No results for input(s): TROPONINT in the last 168 hours. Invalid input(s): CKTOTAL, TROPONINI, CKMBINDEX Microbiology Results (72 hrs) Procedure Component Value Units Date/Time Culture, Respiratory, Lower, Smear [[id number]] Collected: 10/29/181728 Order Status: Completed Lab Status: [...] HELD 48 HOURS. RESULT Testing performed at [facility], [address] [place] [address] Comment: Testing performed at [facility], [address] [place] [address] RADIOLOGY: Recent Results (from the past 360 [...] and managing patient and counseling/coordination. Dictation software, [employer], used which may contain error for similar [...] Pain in prosthetic joint, initial encounter ([facility]) 2. Mechanical complication of prosthetic knee implant, initial encounter ([facility]) 3. Mechanical instability of hip prosthesis ([facility]) 4. Shortness of breath 5. Acute respiratory failure with hypoxia ([facility]) Past Medical History: Diagnosis Date Anxiety Anxious depression Arthralgia Arthritis Asthma not using inhalers DDD (degenerative disc disease), lumbar Deliberate self-cutting history of Depression Heartburn Hemorrhage of gastrointestinal tract 2015 upper and lower due ulcers Morbid obesity with BMI of 50.0-59.9, adult ([facility]) Pain in prosthetic joint (HCC) [...] 10 mg 10 mg Intravenous Q4H PRN iMah donovan MD metoclopramide (REGLAN) tablet 10 mg [...] Yuki Courtney MD - 10/30/2018 0758 PDT [facility]: Hospitalist Progress Note Hospital Day: LOS: [...] for input(s): IRON, TIBC, PCTSAT, FERRITIN, TSH, [id number], FOLATE in the last 168 hours. Recent [...] 8:02 This entry has been created using [employer] Speech Recognition software and [employer]. The entry has been reviewed and there may still exist sound alike word errors. Kanwal Diego RN - 10/30/2018 0648 PDTAttempted to put patient on high flow 02 x2 attempts. Was unable t o keep 02 above 80's placed patient back on biPAP. Otherwise VSS and hourly rounding unevent ful. Chart check complete. Víctor Wells ARNP - 1931 PDT [facility]: Orthopedic Surgery Progress Note 10/29/2018 Hospital [...] Radha danielle to see this pt today. [facility] and report any new findings. Gianna Wasserman RN Yuki Courtney MD - 10/29/2018 0739 PDT [facility]: Hospitalist Progress Note Hospital Day: LOS: [...] for input(s): IRON, TIBC, PCTSAT, FERRITIN, TSH, [id number], FOLATE in the last 168 hours. Recent [...] 7:39 This entry has been created using [employer] Speech Recognition software and [employer]. The entry has been reviewed and there may still exist sound alike word errors. Víctor Wells A RACK ROOM WORKER - 10/28/2018 1752 PDT [facility]: Orthopedic Surgery Progress Note 10/28/2018 Hospital [...] ARTHROPLASTY P)continue medical care per hospitalist and furnace process supervisor. Weight bear as tolerated LLE. Continue PT and OT as tolerated d/t sob Code Status: Full Code WENCESLAO De Guzman 10/28/2018 [facility] Clinical [facility]acy Note: [...] Yuki Courtney MD - 10/28/2018 0821 PDT [facility]: Hospitalist Progress Note Hospital Day: LOS: [...] for input(s): IRON, TIBC, PCTSAT, FERRITIN, TSH, [id number], FOLATE in the last 168 hours. Recent [...] 10:29 This entry has been created using [employer] Speech Recognition software and EP[employer] macro s. [...] Harpal Ray MD - 10/27/2018 1914 PDT [facility] Adult Hospitalist Event Note Hospital Day: 3 [...] Pain in prosthetic joint, initial encounter ([facility]) 2. Mechanical complication of prosthetic knee implant, initial encounter ([facility]) 3. Mechanical instability of hip prosthesis ([facility]) Past Medical History: Diagnosis Date Anxiety Anxious depression Arthralgia Arthritis Asthma not using inhalers DDD (degenerative disc disease), lumbar Deliberate self-cutting history of Depression Heartburn Hemorrhage of gastrointestinal tract 2015 upper and lower due ulcers Morbid obesity with BMI of 50.0-59.9, adult ([facility]) Pain in prosthetic joint ([facility]) with instability Panic attacks states [...] Community Support Services Current Outpt/Agency/Support Groups: (P) fdc (specify) Community Agency Name: Other Resources: Discharge [...] Pain in prosthetic joint, initial encounter ([facility]) 2. Mechanical complication of prosthetic knee implant, initial encounter ([facility]) 3. Mechanical instability of hip prosthesis ([facility]) Past Medical History: Diagnosis Date [...] Morbid obesity | | | | | ([facility]) | | + +--------+ + [...] the | | | | | encounter ([facility]) | results section. | | | | | Mechanical | | | | | | complication of | | | | | | prosthetic knee | | | | | | implant, initial | | | | | | encounter ([facility]) | | + +--------+ + + + | CULTURE, TISSUE, | Routin | 10/24/2018 | Pain in prosthetic | Results for this | | SMEAR, WITH | e | 16:41 PDT | joint, initial | procedure are in the | | ANAEROBES | | | encounter ([facility]) | results section. | | | | | Mechanical | | | | | | complication of | | | | | | prosthetic knee | | | | | | implant, initial | | | | | | encounter ([facility]) | | + +--------+ + [...] | | | | | encounter ([facility]) | | | | | [...] at | | | | | | [facility], [address] [facility] | | | | | | [place] | | | | | | [address] | | | | + + + + + + + + | Specimen | + + | Blood | + + + + + + + | Performing | Address | City/State/Zipcode | Phone Number | | Organization | | | | + + + + + | [facility] | [address] | [place] [address] | [phone] | + + + + + Magnesium [...] | | | | | performed at [facility], [address] | | | | | | [address], | | | | | | [place] [address] | | | | + + + + + + + + | Specimen | + + | Blood | + + + + + + + | Performing | Address | City/State/Zipcode | Phone Number | | Organization | | | | + + + + + | [facility] | [address] | [place] [address] | [phone] | + + + + + Basic [...] | | | | | performed at [facility], [address] | | | | | | [facility], | | | | | | [place] [address] | | | | + + + + + + + + | Specimen | + + | Blood | + + + + + + + | Performing | Address | City/State/Zipcode | Phone Number | | Organization | | | | + + + + + | [facility] | [address] | [place] [address] | [phone] | + + + + + CBC [...] | | | | | [place] [address] | | | | + + + + + + + + | Specimen | + + | Blood | + + + + + + + | Performing | Address | City/State/Zipcode | Phone Number | | Organization | | | | + + + + + | [facility] | [address] | [place] [address] | [phone] | + + + + + Magnesium [...] | | | | | [place] [address] | | | | + + + + + + + + | Specimen | + + | Blood | + + + + + + + | Performing | Address | City/State/Zipcode | Phone Number | | Organization | | | | + + + + + | [facility] | [address] | [place] [address] | [phone] | + + + + + Basic [...] | | | | | performed at [facility], [address] | | | | | | [address] [facility], | | | | | | [place] [address] | | | | + + + + + + + + | Specimen | + + | Blood | + + + + + + + | Performing | Address | City/State/Zipcode | Phone Number | | Organization | | | | + + + + + | [facility] | [address] | [place] [address] | [phone] | + + + + + CBC [...] at | | | | | | [facility], [address] | | | | | | [place] | | | | | | [address] | | | | + + + + + + + + | Specimen | + + | Blood | + + + + + + + | Performing | Address | City/State/Zipcode | Phone Number | | Organization | | | | + + + + + | [facility] | [address] | [place] [address] | [phone] | + + + + + Magnesium (11/07/2018 4:11 PDT) + + + + + + | Component | Value | Ref Range | Performed | Pathologist | | | | | At | Signature | + + + + + + | Magnesium | 2.5 (H)Comment: Testing | 1.7 - 2.4 mg/dL | [facility] | | | | performed at [facility], [address] | | LABORATORY | | | | [address] [place], | | | | | | [place] [address] | | | | + + + + + + + + | Specimen | + + | Blood | + + + + + + + | Performing | Address | City/State/Zipcode | Phone Number | | Organization | | | | + + + + + | [facility] | [address] | [place] [address] | [phone] | + + + + + Basic [...] 59 (L)Comment: GFR <60: | >60 | [facility] | | | GFR | CHRONIC KIDNEY [...] | | | | | | MDRD [facility] traceable | | | | | | equation.Testing | | | | | | performed at [facility], [address] | | | | | | [facility], | | | | | | [place] [address] | | | | + + + + + + + + | Specimen | + + | Blood | + + + + + + + | Performing | Address | City/State/Zipcode | Phone Number | | Organization | | | | + + + + + | [facility] | [address] | [place] [address] | [phone] | + + + + + Procalcitonin [...] | | | | | | at [facility];[address] [place] [address] | | | | | | [facility];[place] [address] | | | | + + + + + + + + | Specimen | + + | Blood | + + + + + + + | Performing | Address | City/State/Zipcode | Phone Number | | Organization | | | | + + + + + | [facility] | [address] | [place] [address] | [phone] | + + + + + CBC [...] at | | | | | | [facility], [address] [facility] | | | | | | [place] | | | | | | [address] | | | | + + + + + + + + | Specimen | + + | Blood | + + + + + + + | Performing | Address | City/State/Zipcode | Phone Number | | Organization | | | | + + + + + | [facility] | [address] | [place] [address] | [phone] | + + + + + Magnesium (11/06/2018 4:09 PDT) + + + + + + | Component | Value | Ref Range | Performed | Pathologist | | | | | At | Signature | + + + + + + | Magnesium | 2.7 (H)Comment: Testing | 1.7 - 2.4 mg/dL | [facility] | | | | performed at [facility], [address] | | LABORATORY | | | | [place] [place], | | | | | | [place] [address] | | | | + + + + + + + + | Specimen | + + | Blood | + + + + + + + | Performing | Address | City/State/Zipcode | Phone Number | | Organization | | | | + + + + + | [facility] | [address] | [place] [address] | [phone] | + + + + + Basic [...] | | | | | performed at [facility], [address] | | | | | | [facility], | | | | | | [place] [address] | | | | + + + + + + + + | Specimen | + + | Blood | + + + + + + + | Performing | Address | City/State/Zipcode | Phone Number | | Organization | | | | + + + + + | [facility] | [address] | [place] [address] | [phone] | + + + + + CBC [...] | RBC AND PLT MORPHOLOGY | | [facility] | | | Morphology | APPEAR NORMALComment: | | LABORATORY | | | | Testing performed at | | | | | | [facility], [address] | | | | | | [place] | | | | | | [address] | | | | + + + + + + + + | Specimen | + + | Blood | + + + + + + + | Performing | Address | City/State/Zipcode | Phone Number | | Organization | | | | + + + + + | [facility] | [address] | [place] [address] | [phone] | + + + + + Magnesium (11/05/2018 4:05 PDT) + + + + + + | Component | Value | Ref Range | Performed | Pathologist | | | | | At | Signature | + + + + + + | Magnesium | 2.6 (H)Comment: Testing | 1.7 - 2.4 mg/dL | [facility] | | | | performed at [facility], [address] | | LABORATORY | | | | [address] [place], | | | | | | [place] [address] | | | | + + + + + + + + | Specimen | + + | Blood | + + + + + + + | Performing | Address | City/State/Zipcode | Phone Number | | Organization | | | | + + + + + | [facility] | [address] | [place] [address] | [phone] | + + + + + Basic [...] | >60Comment: GFR <60: | >60 | [facility] | | | GFR | CHRONIC KIDNEY [...] | | | | | | MDRD [facility] traceable | | | | | | equation.Testing | | | | | | performed at [facility], [address] | | | | | | [facility], | | | | | | [place] [address] | | | | + + + + + + + + | Specimen | + + | Blood | + + + + + + + | Performing | Address | City/State/Zipcode | Phone Number | | Organization | | | | + + + + + | [facility] | [address] | [place] [address] | [phone] | + + + + + CBC [...] at | | | | | | [facility], [address] [place] [address] | | | | | | [place] | | | | | | [address] | | | | + + + + + + + + | Specimen | + + | Blood | + + + + + + + | Performing | Address | City/State/Zipcode | Phone Number | | Organization | | | | + + + + + | [facility] | [address] | [place] [address] | [phone] | + + + + + Magnesium (11/04/2018 3:53 PDT) + + + + + + | Component | Value | Ref Range | Performed | Pathologist | | | | | At | Signature | + + + + + + | Magnesium | 2.7 (H)Comment: Testing | 1.7 - 2.4 mg/dL | [facility] | | | | performed at [facility], [address] | | LABORATORY | | | | [address], | | | | | | [place] [address] | | | | + + + + + + + + | Specimen | + + | Blood | + + + + + + + | Performing | Address | City/State/Zipcode | Phone Number | | Organization | | | | + + + + + | [facility] | [address] | [place] [address] | [phone] | + + + + + Basic [...] | | | | | performed at [facility], [address] | | | | | | [address], | | | | | | [place] [address] | | | | + + + + + + + + | Specimen | + + | Blood | + + + + + + + | Performing | Address | City/State/Zipcode | Phone Number | | Organization | | | | + + + + + | [facility] | [address] | [place] [address] | [phone] | + + + + + CBC [...] | | | | | performed at [facility], [address] | | | | | | [address], | | | | | | [place] [address] | | | | + + + + + + + + | Specimen | + + | Blood | + + + + + + + | Performing | Address | City/State/Zipcode | Phone Number | | Organization | | | | + + + + + | [facility] | [address] | [place] [address] | [phone] | + + + + + Magnesium (11/03/2018 3:58 PDT) + + + + + + | Component | Value | Ref Range | Performed | Pathologist | | | | | At | Signature | + + + + + + | Magnesium | 2.7 (H)Comment: Testing | 1.7 - 2.4 mg/dL | [facility] | | | | performed at [facility], [address] | | LABORATORY | | | | [address] [place], | | | | | | [place] [address] | | | | + + + + + + + + | Specimen | + + | Blood | + + + + + + + | Performing | Address | City/State/Zipcode | Phone Number | | Organization | | | | + + + + + | [facility] | [address] | [place] [address] | [phone] | + + + + + Basic [...] | >60Comment: GFR <60: | >60 | [facility] | | | GFR | CHRONIC KIDNEY [...] | | | | | | MDRD [facility] traceable | | | | | | equation.Testing | | | | | | performed at [facility], [address] | | | | | | [facility], | | | | | | [place] [address] | | | | + + + + + + + + | Specimen | + + | Blood | + + + + + + + | Performing | Address | City/State/Zipcode | Phone Number | | Organization | | | | + + + + + | [facility] | [address] | [place] [address] | [phone] | + + + + + CBC [...] at | | | | | | [facility], [address] | | | | | | [place] | | | | | | [address] | | | | + + + + + + + + | Specimen | + + | Blood | + + + + + + + | Performing | Address | City/State/Zipcode | Phone Number | | Organization | | | | + + + + + | [facility] | [address] | [place] [address] | [phone] | + + + + + Magnesium (11/02/2018 4:08 PDT) + + + + + + | Component | Value | Ref Range | Performed | Pathologist | | | | | At | Signature | + + + + + + | Magnesium | 2.8 (H)Comment: Testing | 1.7 - 2.4 mg/dL | [facility] | | | | performed at [facility], [address] | | LABORATORY | | | | [address], | | | | | | [place] [address] | | | | + + + + + + + + | Specimen | + + | Blood | + + + + + + + | Performing | Address | City/State/Zipcode | Phone Number | | Organization | | | | + + + + + | [facility] | [address] | [place] [address] | [phone] | + + + + + Basic [...] | | | | | performed at [facility], [address] | | | | | | [facility], | | | | | | [place] [address] | | | | + + + + + + + + | Specimen | + + | Blood | + + + + + + + | Performing | Address | City/State/Zipcode | Phone Number | | Organization | | | | + + + + + | [facility] | [address] | [place] [address] | [phone] | + + + + + CBC [...] at | | | | | | [facility], [address] [facility] | | | | | | [place] | | | | | | [address] | | | | + + + + + + + + | Specimen | + + | Blood | + + + + + + + | Performing | Address | City/State/Zipcode | Phone Number | | Organization | | | | + + + + + | [facility] | [address] | [place] [address] | [phone] | + + + + + Magnesium (11/01/2018 4:17 PDT) + + + + + + | Component | Value | Ref Range | Performed | Pathologist | | | | | At | Signature | + + + + + + | Magnesium | 2.7 (H)Comment: Testing | 1.7 - 2.4 mg/dL | [facility] | | | | performed at [facility], [address] | | LABORATORY | | | | [facility] [address], | | | | | | [place] [address] | | | | + + + + + + + + | Specimen | + + | Blood | + + + + + + + | Performing | Address | City/State/Zipcode | Phone Number | | Organization | | | | + + + + + | [facility] | [address] | [place] [address] | [phone] | + + + + + Basic [...] | >60Comment: GFR <60: | >60 | [facility] | | | GFR | CHRONIC KIDNEY [...] | | | | | performed at [facility], [address] | | | | | | [facility], | | | | | | [place] [address] | | | | + + + + + + + + | Specimen | + + | Blood | + + + + + + + | Performing | Address | City/State/Zipcode | Phone Number | | Organization | | | | + + + + + | [facility] | [address] | [place] [address] | [phone] | + + + + + ANTHONY Profile, Reflex (11/01/2018 4:17 PDT) + + + + + + | Component | Value | Ref Range | Performed | Pathologist | | | | | At | Signature | + + + + + + | ANTHONY Screen, | NegativeComment: Testing | Negative | [facility] | | | Qual | performed at [facility] | | LABORATORY | | | | [place], [address] | | | | | | [place] [address] | | | | + + + [...] | | | | | | both CT-3 and MPO-ANCA | | | | | [...] | | 3 Antibody | performed by [facility], | | LABORATORY | | | | [address], | | | | | | [facility] [address] | | | | + + + + + + + + | Specimen | + + | Blood | + + + + + + + | Performing | Address | City/State/Zipcode | Phone Number | | Organization | | | | + + + + + | [facility] | [address] | [place] [address] | [phone] | + + + + + Procalcitonin [...] | | | | | | at [facility];[address] | | | | | [address];[place] [address] | | | | + + + + + + + + | Specimen | + + | Blood | + + + + + + + | Performing | Address | City/State/Zipcode | Phone Number | | Organization | | | | + + + + + | [facility] | [address] | [place] [address] | [phone] | + + + + + Potassium (10/31/2018 18:15 PDT) + + + + + + | Component | Value | Ref Range | Performed | Pathologist | | | | | At | Signature | + + + + + + | K | 3.8Comment: Testing | 3.5 - 4.9 | [facility] | | | | performed at [facility];[address] | mmol/L | LABORATORY | | | | [address];[place] | | | | | | [address] | | | | + + + + + + + + | Specimen | + + | Blood | + + + + + + + | Performing | Address | City/State/Zipcode | Phone Number | | Organization | | | | + + + + + | [facility] | [address] | [place] [address] | [phone] | + + + + + CBC [...] LABORATORY | | | | performed at [facility], [address] | | | | | | [address], | | | | | | [place] [address] | | | | | | | | | | + + + + + + + + | Specimen | + + | Blood | + + + + + + + | Performing | Address | City/State/Zipcode | Phone Number | | Organization | | | | + + + + + | [facility] | [address] | [place] [address] | [phone] | + + + + + Magnesium (10/31/2018 4:14 PDT) + + + + + + | Component | Value | Ref Range | Performed | Pathologist | | | | | At | Signature | + + + + + + | Magnesium | 2.3Comment: Testing | 1.7 - 2.4 mg/dL | [facility] | | | | performed at [facility], [address] | | LABORATORY | | | | [address], | | | | | | [place] [address] | | | | + + + + + + + + | Specimen | + + | Blood | + + + + + + + | Performing | Address | City/State/Zipcode | Phone Number | | Organization | | | | + + + + + | [facility] | [address] | [place] [address] | [phone] | + + + + + Basic [...] | >60Comment: GFR <60: | >60 | [facility] | | | GFR | CHRONIC KIDNEY [...] | | | | | | MDRD IDWV traceable | | | | | | equation.Testing | | | | | | performed at [facility], [address] | | | | | | [facility], | | | | | | [place] [address] | | | | + + + + + + + + | Specimen | + + | Blood | + + + + + + + | Performing | Address | City/State/Zipcode | Phone Number | | Organization | | | | + + + + + | [facility] | [address] | [place] [address] | [phone] | + + + + + Phosphorus (10/31/2018 4:14 PDT) + + + + + + | Component | Value | Ref Range | Performed | Pathologist | | | | | At | Signature | + + + + + + | Phosphorus | 3.4Comment: Testing | 2.3 - 4.8 mg/dL | [facility] | | | | performed at [facility], [address] | | LABORATORY | | | | [place] [place], | | | | | | [place] [address] | | | | + + + + + + + + | Specimen | + + | Blood | + + + + + + + | Performing | Address | City/State/Zipcode | Phone Number | | Organization | | | | + + + + + | [facility] | [address] | [place] [address] | [phone] | + + + + + XR [...] LABORATORY | | | | performed at [facility], [address] | | | | | | [address], | | | | | | [place] [address] | | | | | | | | | | + + + + + + + + | Specimen | + + | Blood | + + + + + + + | Performing | Address | City/State/Zipcode | Phone Number | | Organization | | | | + + + + + | [facility] | [address] | [place] [address] | [phone] | + + + + + Magnesium (10/30/2018 4:18 PDT) + + + + + + | Component | Value | Ref Range | Performed | Pathologist | | | | | At | Signature | + + + + + + | Magnesium | 2.3Comment: Testing | 1.7 - 2.4 mg/dL | [facility] | | | | performed at [facility], [address] | | LABORATORY | | | | [place] [place], | | | | | | [place] [address] | | | | + + + + + + + + | Specimen | + + | Blood | + + + + + + + | Performing | Address | City/State/Zipcode | Phone Number | | Organization | | | | + + + + + | [facility] | [address] | [place] [address] | [phone] | + + + + + Basic [...] 7.9 (L) | 8.5 - 10.5 | [facility] | | | | | mg/dL | LABORATORY | | + + + + + + | Estimated | >60Comment: GFR <60: | >60 | [facility] | | | GFR | CHRONIC KIDNEY [...] | | | | | | MDRD IDWV traceable | | | | | | equation.Testing | | | | | | performed at [facility], [address] | | | | | | [facility], | | | | | | [place] [address] | | | | + + + + + + + + | Specimen | + + | Blood | + + + + + + + | Performing | Address | City/State/Zipcode | Phone Number | | Organization | | | | + + + + + | [facility] | [address] | [place] [address] | [phone] | + + + + + Vitamin [...] | | | | | performed at [facility], [address] | | | | | | [facility], | | | | | | [place] [address] | | | | + + + + + + + + | Specimen | + + | Blood | + + + + + + + | Performing | Address | City/State/Zipcode | Phone Number | | Organization | | | | + + + + + | [facility] | [address] | [place] [address] | [phone] | + + + + + Culture, [...] RESULT | Testing performed at | | [facility] | | | | [facility], [address] [facility] | | LABORATORY | | | | [place] | | | | | | [id number]: Testing | | | | | | performed at [facility], [address] | | | | | | [facility] [place], | | | | | | [place] [address] | | | | + + + + + + + + | Specimen | + + | Body Fluid | + + + + + + + | Performing | Address | City/State/Zipcode | Phone Number | | Organization | | | | + + + + + | [facility] | [address] | [place] [address] | [phone] | + + + + + ECHO [...] Testing | 1.7 - 2.4 mg/dL | [facility] | | | | performed at [facility], [address] | | LABORATORY | | | | [place], | | | | | | [place] [address] | | | | + + + + + + + + | Specimen | + + | Blood | + + + + + + + | Performing | Address | City/State/Zipcode | Phone Number | | Organization | | | | + + + + + | [facility] | [address] | [place] [address] | [phone] | + + + + + Basic [...] 7.9 (L) | 8.5 - 10.5 | [facility] | | | | | mg/dL | LABORATORY | | + + + + + + | Estimated | >60Comment: GFR <60: | >60 | [facility] | | | GFR | CHRONIC KIDNEY [...] W | | | | | | [facility], | | | | | | [place] [address] | | | | + + + + + + + + | Specimen | + + | Blood | + + + + + + + | Performing | Address | City/State/Zipcode | Phone Number | | Organization | | | | + + + + + | [facility] | [address] | [place] [address] | [phone] | + + + + + CBC [...] | RBC AND PLT MORPHOLOGY | | [facility] | | | Morphology | APPEAR NORMALComment: | | LABORATORY | | | | Testing performed at | | | | | | [facility], [address] [place] [address] | | | | | | [place] | | | | | | [address] | | | | + + + + + + + + | Specimen | + + | Blood | + + + + + + + | Performing | Address | City/State/Zipcode | Phone Number | | Organization | | | | + + + + + | [facility] | [address] | [place] [address] | [phone] | + + + + + VAS [...] | | | | | | at [facility];[address] | | | | | | [address];[place] [address] | | | | + + + + + + + + | Specimen | + + | Blood | + + + + + + + | Performing | Address | City/State/Zipcode | Phone Number | | Organization | | | | + + + + + | [facility] | [address] | [place] [address] | [phone] | + + + + + B [...] | | LABORATORY | | | | [facility];[address] | | | | | | [place] [address] | | | | + + + + + + + + | Specimen | + + | Blood | + + + + + + + | Performing | Address | City/State/Zipcode | Phone Number | | Organization | | | | + + + + + | [facility] | [address] | [place] [address] | [phone] | + + + + + Basic [...] | | | | | performed at [facility];[address] | | | | | | [address];[place], [place] | | | | | | [address] | | | | + + + + + + + + | Specimen | + + | Blood | + + + + + + + | Performing | Address | City/State/Zipcode | Phone Number | | Organization | | | | + + + + + | [facility] | [address] [facility] [address] | [place] [address] | [phone] | + + + + + CBC [...] | | | | | performed at [facility];[address] | | | | | | [address];[place] | | | | | | [address] | | | | + + + + + + + + | Specimen | + + | Blood | + + + + + + + | Performing | Address | City/State/Zipcode | Phone Number | | Organization | | | | + + + + + | [facility] | [address] | [place] [address] | [phone] | + + + + + CT [...] | | | | Signed by: Korina Dnoovan, Gilles | | Sign Date/Time: 10/27/2018 5:16 [...] | | | | | | MDRD IDWV traceable | | | | | | equation.Testing | | | | | | performed at [facility];[address] | | | | | | [facility];[place], [place] | | | | | | [address] | | | | + + + + + + + + | Specimen | + + | Blood | + + + + + + + | Performing | Address | City/State/Zipcode | Phone Number | | Organization | | | | + + + + + | [facility] | [address] | [place] [address] | [phone] | + + + + + CBC [...] [facility] | | | | performed at [facility], [address] | | LABORATORY | | | | [place], | | | | | | [place] [address] | | | | + + + + + + + + | Specimen | + + | Blood | + + + + + + + | Performing | Address | City/State/Zipcode | Phone Number | | Organization | | | | + + + + + | [facility] | [address] | [place] [address] | [phone] | + + + + + ECG [...] [facility] | | | | performed at [facility], [address] | | LABORATORY | | | | [place], | | | | | | [place] [address] | | | | + + + + + + + + | Specimen | + + | Blood | + + + + + + + | Performing | Address | City/State/Zipcode | Phone Number | | Organization | | | | + + + + + | [facility] | [address] [facility] | [place] [address] | [phone] | + + + + + XR [...] George Signed by: | | | Korina Machaod Michael Sign Date/Time: 10/24/2018 8:54 PM The [...] | + + + | SPECIMEN(S): A [facility] | | LEFT HIP SYNOVIUM [...] | | | abnormalities are grossly identified. Counsellors sections are | | | submitted in [...] interpretation was | | | performed by [facility], [address] | | | [place], [place] (Medical Driver: Víctor Livingston M.D.; | | | CLIA#: [id number]).The technical component was performed by [facility] | | | [facility], [address] [place] [address] [place] [address] (Medical Driver: | | | Nadiya Sharma MD; [facility]# [id number]). Diagnostician: Víctor Livingston | | | MDPathologistElectronically [...] | | LABORATORY | | | | Blvd;[place] [address] | | | | + + + [...] RESULT | Testing performed at | | [facility] | | | | [facility], [address] | | LABORATORY | | | | [place] | | | | | | [id number]: Testing | | | | | | performed at [facility], [address] | | | | | | [address] [place] | | | | | | [address] | | | | + + + + + + + + | Specimen | + + | | + + + + + + + | Performing | Address | City/State/Zipcode | Phone Number | | Organization | | | | + + + + + | [facility] | [address] | [place] [address] | [phone] | + + + + + Culture, [...] | NO GROWTH 4 DAYS | | [facility] | | | | | | LABORATORY | | + + + + + + | RESULT | Testing performed at | | [facility] | | | | [facility], [address] | | LABORATORY | | | | [place], [place] | | | | | | [id number]: Testing | | | | | | performed at [facility], [address] | | | | | | [address], | | | | | | [place] [address] | | | | + + + + + + + + | Specimen | + + | Tissue | + + + + + + + | Performing | Address | City/State/Zipcode | Phone Number | | Organization | | | | + + + + + | [facility] | [address] | [place] [address] | [phone] | + + + + + Type [...] + + + | BB BAND | [id number] | | [facility] | | | | | | LABORATORY | | + + + + + + | BB BAND | Testing performed at | | [facility] | | | | [facility];[address] | | LABORATORY | | | | Blvd;[place] [address] | | | | + + + + + + + + | Specimen | + + | Blood | + + + + + + + | Performing | Address | City/State/Zipcode | Phone Number | | Organization | | | | + + + + + | [facility] | [address] | [place] [address] | [phone] | + + + + + POCT Test, Urine, Qual (10/24/2018 13:27 PDT) + + + + + + | Component | Value | Ref Range | Performed | Pathologist | | | | | At | Signature | + + + + + + | HCG, | NEGATIVEComment: Testing | NEG | [facility] | | | Quantitativ | performed at [facility];[address] | | LABORATORY | | | [address] | [address];[place] | | | | | | [address] | | | | + + + + + + + + | Specimen | + + | | + + + + + + + | Performing | Address | City/State/Zipcode | Phone Number | | Organization | | | | + + + + + | [facility] | [address] | [place] [address] | [phone] | + + + + + documented [...] | | | | | | longer, dknqpv-igo-quyzt use of | | | | | [...] | | | | | | | orjzee-tho-zslcv use of at least | | | [...] | | | | First dose on [facility] 11/02/18 at | | | | [...]
--- OUTSIDE RECORDS SUMMARY | ~2018-12-31 | XMS | Encounter Summary ---
Demographics + + + | Address | [address] | | | [place] [address] | + + + | Home Phone | | + + + | Preferred Language | Unknown | + + + | Marital Status | | + + + | Taoist Affiliation | Unknown | + + + | Race | Unknown | + + + | Ethnic Group | Unknown | + + + Author + + + | Author | [facility] | | | and [place] | + + + | Organization | [facility] | | | and [place] | + + + | Address | Unknown | + + + | Phone | Unavailable | + + + Support + + + + + | Name | Relationship | Address | Phone | + + + + + | Fabienne Juarez | ECON | [place] | | | | | [address] | | + + + + + Care Team Providers + +------+ + | Care Terrazzo Worker Apprentice Name | Role | Phone | + +------+ + | Celestine Watters MD | PCP | | + +------+ + Encounter Details +--------+ + + + + | Date | Type | Department | Care Team | Description | +--------+ + + + + | 12/11/ | Hospital | [facility] | Miah Monique | Status post left hip | | 2018 | Encounter | RADHA Curry[address] | MD Fab [address] | replacement | | | | [address] | [address] [place] [address] | | | | | [place], [place] | [place] [address] | | | | | [address] | [phone] | | | | | [phone] | | | +--------+ + + + [...]
--- OUTSIDE RECORDS SUMMARY | ~2018-12-31 | XMS | Encounter Summary ---
Demographics + + + | Address | [address] | | | [place] [address] | + + + | Home Phone | | + + + | Preferred Language | Unknown | + + + | Marital Status | | + + + | Episcopalian Affiliation | Unknown | + + + | Race | Unknown | + + + | Ethnic Group | Unknown | + + + Author + + + | Author | [facility] | | | and [place] | + + + | Organization | [facility] | | | and [place] | + + + | Address | Unknown | + + + | Phone | Unavailable | + + + Support + + + + + | Name | Relationship | Address | Phone | + + + + + | Fabienne Juarez | ECON | [place] | | | | | [address] | | + + + + + Care Team Providers + +------+ + | Care It Application Development Manager Name | Role | Phone | [...] [place] | | | | | [address] | [place] [address] | | | | | [phone] | [phone] | | | | | | | [...]
--- OUTSIDE RECORDS SUMMARY | ~2018-12-31 | XMS | Encounter Summary ---
Demographics + + + | Address | [address] | | | [place] [address] | + + + | Home Phone [...] Author | [facility] | | | and [place] | + + + | Organization | [facility] | | | and [place] | + + + | Address | Unknown | + + + | Phone | Unavailable | + + + Support + + + + + | Name | Relationship | Address | Phone | + + + + + | Fabienne Juarez | ECON | [place] | | | | | [address] | | + + + + + Care Team Providers + +------+ + | Care Client Relations Associate Name | Role | Phone | [...] [place] | | | | | [address] | [place] [address] | | | | | [phone] | [phone] | | | | | | | [...]
--- OUTSIDE RECORDS SUMMARY | ~2018-12-31 | XMS | Encounter Summary ---
Demographics + + + | Address | [address] | | | [place] [address] | + + + | Home Phone | | + + + | Preferred Language | Unknown | + + + | Marital Status | | + + + | Evangelical Affiliation | Unknown | + + + | Race | Unknown | + + + | Ethnic Group | Unknown | + + + Author + + + | Author | [facility] (Historical as of | | | 10-21-18) | + + + | Organization | [facility] (Historical as of | | | 10-21-18) | + + + | Address | Unknown | + + + | Phone | Unavailable | + + + Support + + + + + | Name | Relationship | Address | Phone | + + + + + | Fabienne Juarez | ECON | [place] | | | | | [address] | | + + + + + Care Team Providers + +------+ + | Care Associate Professor Of Violin Name | Role | Phone | + +------+ + | None, Per Pt | PCP | [id number] | + +------+ + Encounter Details +--------+ + + + + | Date | Type | Department | Care Team | Description | +--------+ + + + + | 10/24/ | Procedure | [facility] | | | | 2018 | [facility] | [facility] | | | | | | Operating Room [address] | | | | | | [place] | | | | | | [address] | | | | | | [phone] | | | +--------+ + + + [...]
--- OUTSIDE RECORDS SUMMARY | ~2018-12-31 | XMS | Encounter Summary ---
Demographics + + + | Address | [address] | | | [place] [address] | + + + | Home Phone | | + + + | Preferred Language | Unknown | + + + | Marital Status | | + + + | Congregational Affiliation | Unknown | + + + | Race | Unknown | + + + | Ethnic Group | Unknown | + + + Author + + + | Author | [facility] (Historical as of | | | 10-21-18) | + + + | Organization | [facility] (Historical as of | | | 10-21-18) | + + + | Address | Unknown | + + + | Phone | Unavailable | + + + Support + + + + + | Name | Relationship | Address | Phone | + + + + + | Fabienne Juarez | ECON | [place] | | | | | [address] | | + + + + + Care Team Providers + +------+ + | Care Bi Specialist Name | Role | Phone | + [...] + + | 10/24/ | Surgery | [facility] | Miah Monique | HIP - TOTAL REVISION | | 2019 | | [facility] | MD Fab [address] | | | | | Operating Room [address] | [address] | | | | | [place] [address] | [place], [place] | | | | | [place] [address] | [address] | | | | | [phone] | [phone] | | | | | | | [...] | [address] | [place] [address] | [phone] | | LABORATORY | [address]vd[address] | | | + + + + + Body Fluid Cell Count (10/18/2018 3:19 PM) + + + + + | Component | Value | Ref Range | Performed At | + + + + + | FLUID TYPE | SYNOVIAL FLUID | | [facility] | + + + + + | COLOR | PINK | | [facility] | + + + + + | APPEARANCE | CLOUDY | | [facility] | + + + + + | RBC'S | 19,193 | /mm3 | [facility] | + + + + + [...] CELLS COUNTED | 100Comment: Testing | | [facility] | | | performed at [facility] | | | | | [address];[place] | | | | | [address] | | | + + + + + + + + + + | Performing | Address | City/State/Zipcode | Phone Number | | Organization | | | | + + + + + | [facility] | [address] | [facility] [address] | | + + + + + Body fluid crystal (10/18/2018 3:19 PM) + + + + + | Component | Value | Ref Range | Performed At | + + + + + | FLUID CRYSTALS | NO CRYSTALS SEENComment: | | [facility] | | | Testing performed at | | | | | [facility];[address] | | | | | [address];[place] [address] | | | + + + + + + + + + + | Performing | Address | City/State/Zipcode | Phone Number | | Organization | | | | + + + + + | [facility] | [address] | [place] [address] | | + + + + + [...]
--- OUTSIDE RECORDS SUMMARY | ~2018-12-31 | XMS | Encounter Summary ---
Demographics + + + | Address | [address] | | | [place] [address] | + + + | Home Phone | | + + + | Preferred Language | Unknown | + + + | Marital Status | | + + + | Anglican Affiliation | Unknown | + + + | Race | Unknown | + + + | Ethnic Group | Unknown | + + + Author + + + | Author | [facility] (Historical as of | | | 10-21-18) | + + + | Organization | [facility] (Historical as of | | | 10-21-18) | + + + | Address | Unknown | + + + | Phone | Unavailable | + + + Support + + + + + | Name | Relationship | Address | Phone | + + + + + | Fabienne Juarez | ECON | [place] | | | | | [address] | | + + + + + Care Team Providers + +------+ + | Care Market Research Manager Name | Role | Phone | + +------+ + | None, Per Pt | PCP | [id number] | + +------+ + Encounter Details +--------+ + + + + | Date | Type | Department | Care Team | Description | +--------+ + + + + | 10/24/ | Procedure | [facility] | | | | 2018 | [facility] | [facility] | | | | | | Operating Room [address] | | | | | | [address] | | | | | | [place] [address] | | | | | | [phone] | | | +--------+ + + + [...]
--- OUTSIDE RECORDS SUMMARY | ~2018-12-31 | XMS | Encounter Summary ---
Demographics + + + | Address | [address] | | | [place] [address] | + + + | Home Phone [...] | Author | [facility] | | | and [place] | + + + | Organization | [facility] | | | and [place] | + + + | Address | Unknown | + + + | Phone | Unavailable | + + + Support + + + + + | Name | Relationship | Address | Phone | + + + + + | Fabienne Juarez | ECON | [place] | | | | | [address] | | + + + + + Care Team Providers + +------+ + | Care Hammer Shop Supervisor Name | Role | Phone | [...] [address] | | | | | [place], [place] | [address] | | | | | [address] | [place] [address] | | | | | [phone] | [phone] | | | | | | | [...]
--- OUTSIDE RECORDS SUMMARY | ~2018-12-31 | XMS | Encounter Summary ---
Demographics + + + | Address | [address] | | | [place] [address] | + + + | Home Phone | | + + + | Preferred Language | Unknown | + + + | Marital Status | | + + + | Adventism Affiliation | Unknown | + + + | Race | Unknown | + + + | Ethnic Group | Unknown | + + + Author + + + | Author | [facility] | | | and [place] | + + + | Organization | [facility] | | | and [place] | + + + | Address | Unknown | + + + | Phone | Unavailable | + + + Support + + + + + | Name | Relationship | Address | Phone | + + + + + | Fabienne Juarez | ECON | [place] | | | | | [address] | | + + + + + Care Team Providers + +------+ + | Care Employee'S Representative Name | Role | Phone | [...] [address] | | | | | [address] | [place] [address] | | | | | [phone] | [phone] | | | | | | | [...]
--- OUTSIDE RECORDS SUMMARY | ~2018-12-31 | XMS | Encounter Summary ---
Demographics + + + | Address | [address] | | | [place] [address] | + + + | Home Phone [...] + | Author | [facility] | | | and [place] | + + + | Organization | [facility] | | | and [place] | + + + | Address | Unknown | + + + | Phone | Unavailable | + + + Support + + + + + | Name | Relationship | Address | Phone | + + + + + | Fabienne Juarez | ECON | [place] | | | | | [address] | | + + + + + Care Team Providers + +------+ + | Care Payroll Bookkeeper Name | Role | Phone | [...] | | | | encounter | | [address] Phone: | | | | | [facility] | | [phone] | | | | | Mechanical | | Fax: | | | | | complication | | [phone] | | | | | of | [...] | | | | | | | [place] | | | | | | [...] + + | 10/24/ | Anesthesia | [facility] | Griselda Brush | | | 2018 | Event [facility] | Carlo, JIM [address] | | | | | OPERATING ROOM [address] | [address] [place] | | | | | [place] | [address] | | | | | [place] | | | | | | [address] | | | | | | [phone] | | | +--------+ + + + + Anesthesia Record + + + + + | Procedure Name | Responsible | Anesthesia Start | Anesthesia Stop Time | | | Anesthesiologist | Time | | + + + + + | ARTHROPLASTY | Jt Thorpe MD | 10/24/18 1556 | 10/24/18 5384 | | REVISION TOTAL HIP | | [...] 9 | | for the spinal. The Onsite Case Manager Jolene is assisting | | | | [...] +----+---+ + + | | 1 | Simms | | | | 6 | 43-degrees [...] | Type: nasal; Size: 30; Position: | MACHINIST BENCH | | | | Left; Trauma: none; [...] | + + + | Griselda Brush, MACHINIST BENCH 10/24/2018 17:11 Neuraxial Procedure | | | Note 10/24/2018 16:00 Procedure: single-shot spinal anesthesia | | | Provider requested procedure: Lud[place] Indication: surgical | | | anesthesia Preprocedure [...]
--- OUTSIDE RECORDS SUMMARY | ~2018-12-31 | XMS | Encounter Summary ---
Demographics + + + | Address | [address] | | | [place] [address] | + + + | Home Phone | | + + + | Preferred Language | Unknown | + + + | Marital Status | | + + + | Christianity Affiliation | Unknown | + + + | Race | Unknown | + + + | Ethnic Group | Unknown | + + + Author + + + | Author | [facility] (Historical as of | | | 10-21-18) | + + + | Organization | [facility] (Historical as of | | | 10-21-18) | + + + | Address | Unknown | + + + | Phone | Unavailable | + + + Support + + + + + | Name | Relationship | Address | Phone | + + + + + | Fabienne Juarez | ECON | [place] | | | | | [address] | | + + + + + Care Team Providers + +------+ + | Care Agile Developer Name | Role | Phone | [...] | | | | | | | ([facility]) | | | | | | | Procedures | | | | | | | HIP - TOTAL | | | | | | | REVISION | | | +--------+--------+ + + + + Encounter Details +--------+ + + + + | Date | Type | Department | Care Team | Description | +--------+ + + + + | 10/24/ | Hospital | [facility] | Miah Monique | Mechanical | | 2019 | Encounter | [facility] | MD Fab [address] | instability of hip | | | | Operating Room [address] | [address] | prosthesis (HCC) | | | | [address] | [place], [place] | | | | | [place] [address] | [address] | | | | | [phone] | [phone] | | | | | | | [...] | [facility] | [address] | [place] [address] | [phone] | | LABORATORY | [address]vd[address] | | | + + + + + Body Fluid Cell Count (10/18/2018 3:19 PM) + + + + + | Component | Value | Ref Range | Performed At | + + + + + | FLUID TYPE | SYNOVIAL FLUID | | [facility] | + + + + + | COLOR | PINK | | [facility] | + + + + + | APPEARANCE | CLOUDY | | [facility] | + + + + + | RBC'S | 19,193 | /mm3 | [facility] | + + + + + | TOTAL NUCLEATED | 29 | /mm3 | [facility] | | CELLS | | | | + + + + + | NEUTROPHILS | 83 | % | [facility] | + + + + + | LYMPHOCYTES | 14 | % | [facility] | + + + + + | EOSINOPHILS | 3 | % | [facility] | + + + + + | CELLS COUNTED | 100Comment: Testing | | [facility] | | | performed at [facility] | | | | | [address];[place] | | | | | [address] | | | + + + + + + + + + + | Performing | Address | City/State/Zipcode | Phone Number | | Organization | | | | + + + + + | [facility] | [address] | [place] [address] | | + + + + + Body fluid crystal (10/18/2018 3:19 PM) + + + + + | Component | Value | Ref Range | Performed At | + + + + + | FLUID CRYSTALS | NO CRYSTALS SEENComment: | | [facility] | | | Testing performed at | | | | | [facility];[address] | | | | | [place] [address] | | | + + + + + + + + + + | Performing | Address | City/State/Zipcode | Phone Number | | Organization | | | | + + + + + | [facility] | [address] | [place] [address] | | + + + + + in this encounter Visit Diagnoses + + | Diagnosis | + + | Mechanical instability of hip prosthesis (HCC) | + + | Artificial joint pain (HCC) | + + | 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
--- OUTSIDE RECORDS SUMMARY | ~2018-12-31 | XMS | Clinical Summary ---
Demographics + + + | Address | [address] | | | [place] [address] | + + + | Home Phone [...] | Author | [facility] (Historical as of | | | 10-21-18) | + + + | Organization | [facility] (Historical as of | | | 10-21-18) | + + + | Address | Unknown | + + + | Phone | Unavailable | + + + Support + + + + + | Name | Relationship | Address | Phone | + + + + + | Fabienne Juarez | ECON | [place] | | | | | [address] | | + + + + + Care Team Providers + +------+ + | Care Group Rooms Coordinator Name | Role | Phone | [...] Overview: Added automatically from request for surgery [id number] | + + + + + | Mechanical instability of hip prosthesis (HCC) | 09/11/2018 | + + + + + | Overview: Added automatically from request for surgery [id number] | + + Encounters +--------+ + + + + | Date | Type | Specialty | Care Team | Description | +--------+ + + + + | 10/24/ | Hospital | | Miah Monique | Mechanical | | 2019 | Encounter | | MD Fab | instability of hip | | | | | | prosthesis (HCC) | +--------+ + + + + | 10/24/ | Procedure | | | | | 2018 | Pass | | | | +--------+ + + + + | 10/24/ | Surgery | | Miah Monique | HIP - TOTAL REVISION | | 2018 | | | MD Fab | | +--------+ + + + + | 10/18/ | Hospital | | Miah Monique | | | 2018 | Encounter | | MD Tony [facility] | | | | | | Opic Pro | | +--------+ + + + + | 10/17/ | Orders Only | | Miah Monique | Pain due to hip | | 2018 | | | MD Fab | joint prosthesis, | | | | | | initial encounter | | | | | | (HCC) (Primary Dx) | +--------+ + + + + | 10/16/ | Telephone | | Miah Monique | | | 2019 | | | MD Fab | | +--------+ + + + + | 10/06/ | Hospital | | Miah Monique | | | 2018 | Encounter | | MD Fab | | +--------+ + + + + | 10/04/ | Office | | Emilio Moreno, | Pain in prosthetic | | 2018 | Visit | | [facility] | joint, initial | | | | | | encounter (HCC) | | | | | | (Primary Dx) | +--------+ + + + + | 10/02/ | Telephone | | Miah Monique | | | [...] | | + + + + + Procedures + +--------+ + + + | [...] + + from Last 3 Months Results Body fluid crystal (10/18/2018 3:19 PM) + + + + + | Component | Value | Ref Range | Performed At | + + + + + | FLUID CRYSTALS | NO CRYSTALS SEENComment: | | [facility] | | | Testing performed at | | | | | [facility];[address] [place] [address] | | | | | Bl;[place] [address] | | | + + + + + + + + + + | Performing | Address | City/State/Zipcode | Phone Number | | Organization | | | | + + + + + | [facility] | [address] | [place] [address] | | + + + + + FLUID CULT W/GRAM STAIN (10/18/2018 3:19 PM) [...] | + + + + + | [facility] | [address] [facility] | [place] [address] | [phone] | | LABORATORY | [address]vd[address] | | | + + + + + Body Fluid Cell Count (10/18/2018 3:19 PM) + + + + + | Component | Value | Ref Range | Performed At | + + + + + | FLUID TYPE | SYNOVIAL FLUID | | [facility] | + + + + + | COLOR | PINK | | [facility] | + + + + + | APPEARANCE | CLOUDY | | [facility] | + + + + + | RBC'S | 19,193 | /mm3 | [facility] | + + + + + | TOTAL NUCLEATED | 29 | /mm3 | [facility] | | CELLS | | | | + + + + + | NEUTROPHILS | 83 | % | [facility] | + + + + + | LYMPHOCYTES | 14 | % | [facility] | + + + + + | EOSINOPHILS | 3 | % | [facility] | + + + + + | CELLS COUNTED | 100Comment: Testing | | [facility] | | | performed at [facility] | | | | | [address];[place] | | | | | [address] | | | + + + + + + + + + + | Performing | Address | City/State/Zipcode | Phone Number | | Organization | | | | + + + + + | [facility] | [address] | [place] [address] | | + + + + + XR arthrocentesis hip left (10/18/2018 2:45 PM) + + + | Impressions | Performed At | + + + | Technically successful placement of needles into the left hip joint. | [facility] | | No fluid was aspirated initially. Therefore, sterile saline was | [facility] | | placed into the hip joint, with aspiration performed. Fluid sent | | | to pathology for further evaluation. 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 | [address] | [place] [address] | | + + + + + MRSA by PCR (10/06/2018 11:00 AM) + + + + + | Component | Value | Ref Range | Performed At | + + + + + | SOURCE | NARES(NOSE) | | [facility] | + + + + + | MRSA PCR | NEGATIVEComment: Testing | NEGATIVE | [facility] | | | performed at [facility];[address] | | | | | [address];[place] | | | | | [address] | | | + + + + + + + | Specimen | + + | Nasopharyngeal - | | Nares(Nose) | + + + + + + + | Performing | Address | City/State/Zipcode | Phone Number | | Organization | | | | + + + + + | [facility] | [address] | [place] [address] | | + + + + + [...] | [facility] | | | performed at [facility], [address] | | LABORATORY | | | [address], | | | | | [place] [address] | | | + + + + + + + | Specimen | + + | Blood | + + + + + + + | Performing | Address | City/State/Zipcode | Phone Number | | Organization | | | | + + + + + | [facility] | [address] | [place] [address] | [phone] | | LABORATORY | [address] | | | + + + + + Type and screen (10/06/2018 11:00 AM) + + + + + | Component | Value | Ref Range | Performed At | + + + + + | ABO/RH(D) | O POSITIVE | | [facility] | + + + + + | ANTIBODY SCREEN | NEGATIVETesting | | [facility] | | | performed at [facility] | | | | | [address];[place], [place] | | | | | [address] | | | + + + + + + + | Specimen | + + | Blood | + + + + + + + | Performing | Address | City/State/Zipcode | Phone Number | | Organization | | | | + + + + + | [facility] | [address] | [place] [address] | | + + + + + Glycohemoglobin A1c (10/06/2018 11:00 AM) + + + + + | Component | Value | Ref Range | Performed At | + + + + + | HEMOGLOBIN A1C | 4.5Comment: HbA1c method | 4.0 - 6.0 % | [facility] | | | is certified by [employer] | | LABORATORY | | | and [...] | | | | | performed at [facility], [address] | | | | | [facility], | | | | | [place] [address] | | | + + + + + + + | Specimen | + + | Blood | + + + + + + + | Performing | Address | City/State/Zipcode | Phone Number | | Organization | | | | + + + + + | [facility] | [address] | [place] [address] | [phone] | | LABORATORY | [address] | | [...] | | | | | performed at [facility], [address] | | | | | [facility], | | | | | [place] [address] | | | + + + + + + + | Specimen | + + | Blood | + + + + + + + | Performing | Address | City/State/Zipcode | Phone Number | | Organization | | | | + + + + + | [facility] | [address] | [place] [address] | [phone] | | LABORATORY | [address]. | | | + + + + + from Last 3 Months Insurance + +--------+ +------+-------+ + | Payer | Benefi | Subscriber | Type | Phone | Address | | | t Plan | ID | | | | | | / | | | | | | | Group | | | | | + +--------+ +------+-------+ + | MEDICAID | [employer] | [id number] | | | [address] | | | [place] | | | | [place] | | | [place] | | | | [phone] | | | [employer]TER | | | | | + +--------+ [...] al/Fam | | 1971 | [phone] | [place] [address] | | | sreekanth | | | [phone] | | + +--------+ +--------+ + +"
--- OUTSIDE RECORDS SUMMARY | ~2018-12-31 | XMS | Encounter Summary ---
Demographics + + + | Address | [address] | | | [place] [address] | + + + | Home Phone | | + + + | Preferred Language | Unknown | + + + | Marital Status | | + + + | Buddhism Affiliation | Unknown | + + + | Race | Unknown | + + + | Ethnic Group | Unknown | + + + Author + + + | Author | [facility] | | | and [place] | + + + | Organization | [facility] | | | and [place] | + + + | Address | Unknown | + + + | Phone | Unavailable | + + + Support + + + + + | Name | Relationship | Address | Phone | + + + + + | Fabienne Juarez | ECON | [place] | | | | | [address] | | + + + + + Care Team Providers + +------+ + | Care Journeyman Level Acoustic Analyst Name | Role | Phone | [...] | | | | [place] | [phone] | | | | | [address] | | | | | | [phone] | | | +--------+ + + + [...]
--- OUTSIDE RECORDS SUMMARY | ~2018-12-31 | XMS | Encounter Summary ---
Demographics + + + | Address | [address] | | | [place] [address] | + + + | Home Phone | | + + + | Preferred Language | Unknown | + + + | Marital Status | | + + + | Hinduism Affiliation | Unknown | + + + | Race | Unknown | + + + | Ethnic Group | Unknown | + + + Author + + + | Author | [facility] | | | and [place] | + + + | Organization | [facility] | [...] [place] | | | | | [address] | | + + + + + Care Team Providers + +------+ + | Care Boilermaker Helper Name | Role | Phone | + +------+ + PCP | Unavailable | + +------+ + Encounter Details +--------+ + + + + | Date | Type | Department | Care Team | Description | +--------+ + + + + | 10/06/ | Hospital | [facility] | Conversion | | | 2019 | Encounter | [facility] | Transaction, | | | | | CLINIC [address] | Provider Unknown | | | | | [place], [place] | | | | | | [address] | (Fax) | | | | | [phone] | | | +--------+ + + + [...] NEGATIVE | | | Testing performed at [facility];[address] [place] [address];[place] [address] | | + + + + +---------+ [...] | | | Basophils | performed at [facility], [address] | [address] | LAB | | | | [address], | | | | | | [place] [address] | | | | + + + [...] | | | | | performed at [facility], [address] | | | | | | [address], | | | | | | [place] [address] | | | | + + + [...] | | | | | performed at [facility], [address] | | | | | | [facility], | | | | | | [place] [address] | | | | + + + [...]
--- OUTSIDE RECORDS SUMMARY | ~2018-12-31 | XMS | Encounter Summary ---
Demographics + + + | Address | [address] | | | [place] [address] | + + + | Home Phone [...] + + | Author | [facility] (Historical as of | | | 10-21-18) | + + + | Organization | [facility] (Historical as of | | | 10-21-18) | + + + | Address | Unknown | + + + | Phone | Unavailable | + + + Support + + + + + | Name | Relationship | Address | Phone | + + + + + | Fabienne Juarez | ECON | [place] | | | | | [address] | | + + + + + Care Team Providers + +------+ + | Care Line Tender Name | Role | Phone | [...] | | | | | | | ([facility]) | | | | | | [...] + + | 10/24/ | Hospital | [facility] | Miah Monique | Mechanical | | 2019 | Encounter | [facility] | MD Fab [address] | instability of hip | | | | Operating Room [address] | [address] | prosthesis (HCC) | | | | [address] | [place], [place] | | | | | [place] [address] | [address] | | | | | [phone] | [phone] | | | | | | | [...] | [facility] | [address] | [place] [address] | [phone] | | LABORATORY | [address]vd[address] | | | + + + + + Body Fluid Cell Count (10/18/2018 3:19 PM) + + + + + | Component | Value | Ref Range | Performed At | + + + + + | FLUID TYPE | SYNOVIAL FLUID | | [facility] | + + + + + | COLOR | PINK | | [facility] | + + + + + | APPEARANCE | CLOUDY | | [facility] | + + + + + | RBC'S | 19,193 | /mm3 | [facility] | + + + + + | TOTAL NUCLEATED | 29 | /mm3 | [facility] | | CELLS | | | | + + + + + | NEUTROPHILS | 83 | % | [facility] | + + + + + | LYMPHOCYTES | 14 | % | [facility] | + + + + + | EOSINOPHILS | 3 | % | [facility] | + + + + + | CELLS COUNTED | 100Comment: Testing | | [facility] | | | performed at [facility];[address] | | | | | [address];[place] | | | | | [address] | | | + + + + + + + + + + | Performing | Address | City/State/Zipcode | Phone Number | | Organization | | | | + + + + + | [facility] | [address] | [place] [address] | | + + + + + Body fluid crystal (10/18/2018 3:19 PM) + + + + + | Component | Value | Ref Range | Performed At | + + + + + | FLUID CRYSTALS | NO CRYSTALS SEENComment: | | [facility] | | | Testing performed at | | | | | [facility];[address] | | | | | [place] [address] | | | + + + + + + + + + + | Performing | Address | City/State/Zipcode | Phone Number | | Organization | | | | + + + + + | [facility] | [address] | [place] [address] | | + + + + + [...]
--- OUTSIDE RECORDS SUMMARY | ~2018-12-31 | XMS | Encounter Summary ---
Demographics + + + | Address | [address] | | | [place] [address] | + + + | Home Phone | | + + + | Preferred Language | Unknown | + + + | Marital Status | | + + + | Adventist Affiliation | Unknown | + + + | Race | Unknown | + + + | Ethnic Group | Unknown | + + + Author + + + | Author | [facility] | | | and [place] | + + + | Organization | [facility] | | | and [place] | + + + | Address | Unknown | + + + | Phone | Unavailable | + + + Support + + + + + | Name | Relationship | Address | Phone | + + + + + | Fabienne Juarez | ECON | [place] | | | | | [address] | | + + + + + Care Team Providers + +------+ + | Care Experiential Therapist Name | Role | Phone | + +------+ + | No, Physician | PCP | Unavailable | + +------+ + Encounter Details +--------+ + + + + | Date | Type | Department | Care Team | Description | +--------+ + + + + | 10/18/ | Hospital | [facility] | Conversion | | | 2019 | Encounter | [facility] | Transaction, | | | | | [address] | Provider Unknown | | | | | [address] [place], [place] | [phone] | | | | | [address] | | | | | | [phone] | | | +--------+ + + + [...]
--- OUTSIDE RECORDS SUMMARY | ~2018-12-31 | XMS | Encounter Summary ---
Demographics + + + | Address | [address] | | | [place] [address] | + + + | Home Phone | | + + + | Preferred Language | Unknown | + + + | Marital Status | | + + + | Restoration Affiliation | Unknown | + + + | Race | Unknown | + + + | Ethnic Group | Unknown | + + + Author + + + | Author | [facility] | | | and [place] | + + + | Organization | [facility] | | | and [place] | + + + | Address | Unknown | + + + | Phone | Unavailable | + + + Support + + + + + | Name | Relationship | Address | Phone | + + + + + | Fabienne Juarez | ECON | [place] | | | | | [address] | | + + + + + Care Team Providers + +------+ + | Care Seasonal Customer Service Associate Name | Role | Phone | [...] [address] | | | | | [place], [place] | [place] | | | | | [address] | [place] [address] | | | | | [phone] | [phone] | | | | | | | [...]
--- OUTSIDE RECORDS SUMMARY | ~2018-12-31 | XMS | Encounter Summary ---
Demographics + + + | Address | [address] | | | [place] [address] | + + + | Home Phone [...] | [facility] | | | and [place] | + + + | Organization | [facility] | | | and [place] | + + + | Address | Unknown | + + + | Phone | Unavailable | + + + Support + + + + + | Name | Relationship | Address | Phone | + + + + + | Fabienne Juarez | ECON | [place] | | | | | [address] | | + + + + + Care Team Providers + +------+ + | Care Lifestyle Block Farmer Name | Role | Phone | + [...] [address] | | | | | BLVD [place], [place] | [place], | | | | | [address] | [place] [address] | | | | | [phone] | [phone] | | | | | | | [...]
--- OUTSIDE RECORDS SUMMARY | ~2018-12-31 | XMS | Encounter Summary ---
Demographics + + + | Address | [address] | | | [place] [address] | + + + | Home Phone [...] Author | [facility] | | | and [place] | + + + | Organization | [facility] | | | and [place] | + + + | Address | Unknown | + + + | Phone | Unavailable | + + + Support + + + + + | Name | Relationship | Address | Phone | + + + + + | Fabienne Juarez | ECON | [place] | | | | | [address] | | + + + + + Care Team Providers + +------+ + | Care Contract Consultant Name | Role | Phone | + +------+ + | Celestine Watters MD | PCP | | + +------+ + Encounter Details +--------+ + + + + | Date | Type | Department | Care Team | Description | +--------+ + + + + | 12/11/ | Hospital | [facility] | Miah Monique | Status post left hip | | 2018 | Encounter | RADHA Curry5 | MD Fab [address] | replacement | | | | [address] | [address] [place] [address] | | | | | [place], [place] | [place] [address] | | | | | [address] | [phone] | | | | | [phone] | | | +--------+ + + + [...]
--- OUTSIDE RECORDS SUMMARY | ~2018-12-31 | XMS | Encounter Summary ---
Demographics + + + | Address | [address] | | | [place] [address] | + + + | Home Phone [...] + | Author | [facility] (Historical as of | | | 10-21-18) | + + + | Organization | [facility] (Historical as of | | | 10-21-18) | + + + | Address | Unknown | + + + | Phone | Unavailable | + + + Support + + + + + | Name | Relationship | Address | Phone | + + + + + | Fabienne Juarez | ECON | [place] | | | | | [address] | | + + + + + Care Team Providers + +------+ + | Care Custodian Athletic Equipment Name | Role | Phone | + +------+ + | None, Per Pt | PCP | [id number] | + +------+ + Encounter Details +--------+ + + + + | Date | Type | Department | Care Team | Description | +--------+ + + + + | 10/02/ | Telephone | [facility] | Miah Monique | | | 2018 | | [facility]THO SP[facility]TS | MD Fab [address] | | | | | [facility] | Ray Dewitt | | | | | [address] | [place] | | | | | [place] | [address] | | | | | [address] | [phone] | | | | | [phone] | | | +--------+ + + + [...]
--- OUTSIDE RECORDS SUMMARY | ~2018-12-31 | XMS | Encounter Summary ---
Demographics + + + | Address | [address] | | | [place] [address] | + + + | Home Phone [...] | Author | [facility] | | | and [place] | + + + | Organization | [facility] | | | and [place] | + + + | Address | Unknown | + + + | Phone | Unavailable | + + + Support + + + + + | Name | Relationship | Address | Phone | + + + + + | Fabienne Juarez | ECON | [place] | | | | | [address] | | + + + + + Care Team Providers + +------+ + | Care Chemic Mangler Name | Role | Phone | + +------+ + | No, Physician | PCP | Unavailable | + +------+ + Encounter Details +--------+ + + + + | Date | Type | Department | Care Team | Description | +--------+ + + + + | 10/20/ | Orders Only | [facility] | Miah Monqiue | Pain due to internal | | 2018 | | MD Mayur CHÁVEZ | orthopedic | | | | [address] | [place] | prosthetic devices, | | | | [address] | [place] [address] | implants and grafts, | | | | [phone] | [phone] | initial encounter | | | | | | ([facility]) | +--------+ + + + + [...]
--- OUTSIDE RECORDS SUMMARY | ~2018-12-31 | XMS | Encounter Summary ---
Demographics + + + | Address | [address] | | | [place] [address] | + + + | Home Phone | | + + + | Preferred Language | Unknown | + + + | Marital Status | | + + + | Buddhist Affiliation | Unknown | + + + | Race | Unknown | + + + | Ethnic Group | Unknown | + + + Author + + + | Author | [facility] | | | and [place] | + + + | Organization | [facility] | [...] [place] | | | | | [address] | | + + + + + Care Team Providers + +------+ + | Care Senior Advisor Name | Role | Phone | [...] + + | 11/14/ | Telephone | [facility] | Miah Monique | Medication Problem | | 2019 | | [address] Sanon MD [address] | | | | | BLVD [place], [place] | [place] | | | | | [address] | [place] [address] | | | | | [phone] | [phone] | | | | | | | [...]
--- OUTSIDE RECORDS SUMMARY | ~2018-12-31 | XMS | Encounter Summary ---
Demographics + + + | Address | [address] | | | [place] [address] | + + + | Home Phone | | + + + | Preferred Language | Unknown | + + + | Marital Status | | + + + | Holiness Affiliation | Unknown | + + + | Race | Unknown | + + + | Ethnic Group | Unknown | + + + Author + + + | Author | [facility] | | | and [place] | + + + | Organization | [facility] | | | and [place] | + + + | Address | Unknown | + + + | Phone | Unavailable | + + + Support + + + + + | Name | Relationship | Address | Phone | + + + + + | Fabienne Juarez | ECON | [place] | | | | | [address] | | + + + + + Care Team Providers + +------+ + | Care General Cargo Clerk Name | Role | Phone | [...] Left Hip | Shola Sanchez MD | [place] [address] | | | | | Nondisplaced | [address] | [address] | | | | | Fracture of | ([address] | [place], [place] | | | | | Artificial | [address]) | [address] | | | | | Hip Joint | [place], | Phone: | | | | | | [place] [address] | [phone] | | | | | | Phone: | Fax: | | | | | | [phone] | [phone] | | | | | | Fax: | | | | | | | [phone] | | +--------+--------+ + + + + Encounter Details +--------+---------+ + + + | Date | Type | Department | Care Team | Description | +--------+---------+ + + + | 12/11/ | Office | [facility] | Miah Monique | Status post left hip | | 2019 | Visit | [address]HA [address] | MD Fab [address] | replacement | | | | [place], [place] | [place] | (Primary Dx) | | | | [address] | [place] [address] | | | | | [phone] | [phone] | | | | | | | [...]
--- OUTSIDE RECORDS SUMMARY | ~2018-12-31 | XMS | Encounter Summary ---
Demographics + + + | Address | [address] | | | [place] [address] | + + + | Home Phone | | + + + | Preferred Language | Unknown | + + + | Marital Status | | + + + | Religion Affiliation | Unknown | + + + | Race | Unknown | + + + | Ethnic Group | Unknown | + + + Author + + + | Author | [facility] (Historical as of | | | 10-21-18) | + + + | Organization | [facility] (Historical as of | | | 10-21-18) | + + + | Address | Unknown | + + + | Phone | Unavailable | + + + Support + + + + + | Name | Relationship | Address | Phone | + + + + + | Fabienne Juarez | ECON | [place] | | | | | [address] | | + + + + + Care Team Providers + +------+ + | Care Tube Maker Name | Role | Phone | [...] | Radiology | Diagnoses | Eneida, | [facility] | | | | | Pain due to | Miah Sanon MD | [address] | | | | | internal | [address] | [address] | | | | | orthopedic | [address] | [place] | | | | | prosthetic | [place], [place] | [address] Phone: | | | | | devices, | [address] | [phone] | | | | | implants and | Phone: | | | | | | grafts, | [phone] | | | | | | initial | Fax: | | | | | | encounter | [phone] | | | | | | (HCC) | | | | | | | Presence of | | | | | | | unspecified | | | | | | | 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 | | | | | | | Procedures | | | | | | | NM | | | | | | | [...] + + | 10/18/ | Hospital | [facility] | Miah Monique | | | 2019 | Encounter | [facility] | MD Fab [address] | | | | | [address] | [address] | | | | | Blvd [place], [place] | [place], [place] | | | | | [address] | [address] | | | | | | [phone] | | | | | | | [...]
--- OUTSIDE RECORDS SUMMARY | ~2018-12-31 | XMS | Clinical Summary ---
Demographics + + + | Address | [address] | | | [place] [address] | + + + | Home Phone [...] | Author | [facility] (Historical as of | | | 10-21-18) | + + + | Organization | [facility] (Historical as of | | | 10-21-18) | + + + | Address | Unknown | + + + | Phone | Unavailable | + + + Support + + + + + | Name | Relationship | Address | Phone | + + + + + | Fabienne Juarez | ECON | [place] | | | | | [address] | | + + + + + Care Team Providers + +------+ + | Care Roll Or Tape Edge Machine Operator Name | Role | Phone [...] Overview: Added automatically from request for surgery [id number] | + + + + + | Mechanical instability of hip prosthesis (HCC) | 09/11/2018 | + + + + + | Overview: Added automatically from request for surgery [id number] | + + Encounters +--------+ + + [...] CRYSTALS | NO CRYSTALS SEENComment: | | [facility] | | | Testing performed at | | | | | [facility];[address] [place] [address] | | | | | Bl;[place] [address] | | | + + + + + + + + + + | Performing | Address | City/State/Zipcode | Phone Number | | Organization | | | | + + + + + | [facility] | [address] | [place] [address] | | + + + + + [...] | + + + + + | [facility] | [address] | [place] [address] | [phone] | | LABORATORY | Blvd[address] | | [...] CELLS COUNTED | 100Comment: Testing | | [facility] | | | performed at [facility] | | | | | [address];[place] | | | | | [address] | | | + + + + + + + + + + | Performing | Address | City/State/Zipcode | Phone Number | | Organization | | | | + + + + + | [facility] | [address] | [place] [address] | | + + + + + [...] | + + + + + | [facility] | [address] | [place] [address] | | + + + + + MRSA by PCR (10/06/2018 11:00 AM) + + + + + | Component | Value | Ref Range | Performed At | + + + + + | SOURCE | NARES(NOSE) | | [facility] | + + + + + | MRSA PCR | NEGATIVEComment: Testing | NEGATIVE | [facility] | | | performed at [facility];[address] | | | | | [address];[place] | | | | | [address] | | | + + + + + + + | Specimen | + + | Nasopharyngeal - | | Nares(Nose) | + + + + + + + | Performing | Address | City/State/Zipcode | Phone Number | | Organization | | | | + + + + + | [facility] | [address] | [place] [address] | | + + + + + [...] | [facility] | | | performed at [facility], [address] | | LABORATORY | | | [address], | | | | | [place] [address] | | | + + + + + + + | Specimen | + + | Blood | + + + + + + + | Performing | Address | City/State/Zipcode | Phone Number | | Organization | | | | + + + + + | [facility] | [address] | [place] [address] | [phone] | | LABORATORY | [address] | | | + + + + + Type and screen (10/06/2018 11:00 AM) + + + + + | Component | Value | Ref Range | Performed At | + + + + + | ABO/RH(D) | O POSITIVE | | [facility] | + + + + + | ANTIBODY SCREEN | NEGATIVETesting | | [facility] | | | performed at [facility] | | | | | [address];[place], [place] | | | | | [address] | | | + + + + + + + | Specimen | + + | Blood | + + + + + + + | Performing | Address | City/State/Zipcode | Phone Number | | Organization | | | | + + + + + | [facility] | [address] | [place] [address] | | + + + + + [...] | | | | | performed at [facility], [address] | | | | | [facility], | | | | | [place] [address] | | | + + + + + + + | Specimen | + + | Blood | + + + + + + + | Performing | Address | City/State/Zipcode | Phone Number | | Organization | | | | + + + + + | [facility] | [address] | [place] [address] | [phone] | | LABORATORY | [address]vd[address] | | [...] | | | | | performed at [facility], [address] | | | | | [facility], | | | | | [place] [address] | | | + + + + + + + | Specimen | + + | Blood | + + + + + + + | Performing | Address | City/State/Zipcode | Phone Number | | Organization | | | | + + + + + | [facility] | [address] | [place] [address] | [phone] | | LABORATORY | [address] | | [...] +------+-------+ + | MEDICAID | [place] | [id number] | | | [address] | | | N | | | | [place] | | | [place] | | | | [address] | | | SEPARATIONS SCIENTIST | | | | | + +--------+ [...] | 1971 | [phone] | [place] [address] | | | sreekanth | | | [phone] | | + +--------+ +--------+ + +"
--- OUTSIDE RECORDS SUMMARY | ~2018-12-31 | XMS | Encounter Summary ---
Demographics + + + | Address | [address] | | | [place] [address] | + + + | Home Phone [...] | [facility] | | | and [place] | + + + | Organization | [facility] | | | and [place] | + + + | Address | Unknown | + + + | Phone | Unavailable | + + + Support + + + + + | Name | Relationship | Address | Phone | + + + + + | Fabienne Juarez | ECON | [place] | | | | | [address] | | + + + + + Care Team Providers + +------+ + | Care Research Chemist Name | Role | Phone | + [...] | 11/23/ | Telephone | [facility] | Miah Monique | Medication Refill; | | 2018 | | [address]HA [address] | MD Patric[address] | Medication Refill | | | | [address] [place], [place] | [place] | | | | | [address] | [place] [address] | | | | | [phone] | [phone] | | | | | | | [...]
--- OUTSIDE RECORDS SUMMARY | 2018-12-31 13:56 | XMS ---
PreManage Notification: ASIYA APODACA Security Pin Machine Tender Events No recent Security Events currently on file CRITERIA MET - [facility] PROVIDERS Nathaniel Slaughter Current MD PHONE: Unknown DEEP EGAN [facility] 07/11/2018-Current PHONE: [phone] Radha has no Care Guidelines for this patient. Rosalind VISIT COUNT (12 MO.) Archie Pete TOTAL 4 NOTE: Visits indicate total known visits. ED/UCC VISIT TRACKING (12 MO.) 12/31/2018 13:54 [facility] [place] TYPE: Emergency COMPLAINT: - PELVIC PAIN 07/10/2018 16:13 [facility] [place] TYPE: Emergency COMPLAINT: - L HIP PAIN DIAGNOSES: - Anxiety disorder, unspecified - Fall on same level, unspecified, initial encounter - Major depressive disorder, single episode, unspecified - Unspecified asthma, uncomplicated - Allergy status to oth drug/meds/biol subst status - Pain in left hip - Essential (primary) hypertension - Other care home (current) drug therapy - Nicotine dependence, unspecified, uncomplicated 06/29/2018 18:07 [facility] [place] TYPE: Emergency COMPLAINT: - LEFT HIP PAIN/NON INJURY DIAGNOSES: - [facility] compl of internal left hip prosthesis, init encntr - Nicotine dependence, unspecified, uncomplicated - Essential (primary) hypertension - Other care home (current) drug therapy - Allergy status to oth drug/meds/biol subst status - Unspecified asthma, uncomplicated - Major depressive disorder, single episode, unspecified - Anxiety disorder, unspecified 05/14/2018 19:56 [facility] [place] TYPE: Emergency COMPLAINT: - FALL/R ARM INJURY DIAGNOSES: - Allergy status to oth drug/meds/biol subst status - Essential (primary) hypertension - Unspecified sprain of right hip, initial encounter - Sprain of unspecified site of right knee, initial encounter - Unspecified asthma, uncomplicated - Other superintendent terminal (current) drug therapy - Anxiety disorder, unspecified - Nicotine dependence, unspecified, uncomplicated - Pain in right elbow - Major depressive disorder, single episode, unspecified - Nondisp fx of head of right radius, init for clos fx - Fall (on) (from) unspecified stairs and steps, init encntr INPATIENT VISIT TRACKING (12 MO.) No inpatient visits to display in this time frame [email or web address]
[2018-12-31] MEDS ORDERED: OXYCODONE HCL5 MG (14:06)
[2018-12-31] MEDS ORDERED: GABAPENTIN400 MG PO (14:17)
[2018-12-31] MEDS ORDERED: BAYER CHEWABLE81 MG PO (14:17)
[2018-12-31] MEDS ORDERED: CLONIDINE HCL0.1 MG PO (14:18)
[2018-12-31] MEDS ORDERED: CITALOPRAM HBR20 MG PO (14:18)
[2018-12-31] MEDS ORDERED: GEODON20 MG PO (14:18)
[2018-12-31] MEDS ORDERED: CELECOXIB200 MG (14:18)
[2018-12-31] MEDS ORDERED: HYDROXYZINE HCL50 MG PO (14:19)
== END 2018-12-31 15:45 | disposition home or self-care (01) ==
LOC: ED 13:54
DX: M25.552 Pain in left hip (principal); G89.29 Other chronic pain; I10 Essential (primary) hypertension; F41.9 Anxiety disorder, unspecified; F32.9 Major depressive disorder, single episode, unspecified; F17.200 Nicotine dependence, unspecified, uncomplicated; Z88.8 Allergy status to other drugs, medicaments and biological substances
CPT/HCPCS: 73502; 99283

== ENCOUNTER 2019-03-11 08:15 | Observation (INO) | payer OTHER ==
[~2019-03-11] VITALS: Ht 152.4 cm; Wt 121.6 kg
--- OUTSIDE RECORDS SUMMARY | ~2019-03-11 | XMS | Encounter Summary ---
Demographics + + + | Address | [address] | | | [place] [address] | + + + | Home Phone | | + + + | Preferred Language | Unknown | + + + | Marital Status | | + + + | Quaker Affiliation | Unknown | + + + | Race | Unknown | + + + | Ethnic Group | Unknown | + + + Author + + + | Author | [facility] | | | and [place] | + + + | Organization | [facility] | | | and [place] | + + + | Address | Unknown | + + + | Phone | Unavailable | + + + Support + + + + + | Name | Relationship | Address | Phone | + + + + + | Fabienne Juarez | ECON | [place] | | | | | [address] | | + + + + + Care Team Providers + +------+ + | Care Human Resources Mgr Name | Role | Phone | + +------+ + | Celestine Watters MD | PCP | | + +------+ + Encounter Details +--------+ + + + + | Date | Type | Department | Care Team | Description | +--------+ + + + + | 10/04/ | Orders Only | [facility] | Emilio Moreno, | | | 2018 | | RADHA NEGRON-Christos [address] | | | | | BLVD [place], [place] | [place], | | | | | [address] | [place] [address] | | | | | [phone] | [phone] | | | | | | | | +--------+ + + + + Social History + +-------+ +--------+------+ | Tobacco Use | Types | Packs/Day | Years | Date | | | | | Used | | + +-------+ +--------+------+ | Never Assessed | | | | | + +-------+ +--------+------+ + + + | Sex Assigned at | Date Recorded | | | | + + + | Not on file | | + + + + + + + | Job Start Date | Occupation | Industry | + + + + | Not on file | Not on file | Not on file | + + + + + + + + | Travel History | Travel Start | Travel End | + + + + + + | No recent travel history available. | + + documented as of this encounter Plan of Treatment Not on filedocumented as of this encounter Visit Diagnoses Not on filedocumented in this encounter"
--- OUTSIDE RECORDS SUMMARY | ~2019-03-11 | XMS | Encounter Summary ---
Demographics + + + | Address | [address] | | | [place] [address] | + + + | Home Phone | | + + + | Preferred Language | Unknown | + + + | Marital Status | | + + + | Moravian Affiliation | Unknown | + + + | Race | Unknown | + + + | Ethnic Group | Unknown | + + + Author + + + | Author | [facility] | | | and [place] | + + + | Organization | [facility] | | | and [place] | + + + | Address | Unknown | + + + | Phone | Unavailable | + + + Support + + + + + | Name | Relationship | Address | Phone | + + + + + | Fabienne Juarez | ECON | [place] | | | | | [address] | | + + + + + Care Team Providers + +------+ + | Care Bath Steward/Stewardess Name | Role | Phone | + +------+ + | Celestine Watetrs MD | PCP | | + +------+ + Reason for Visit + + + | Reason | Comments | + + + | Medication Refill | | + + + Encounter Details +--------+ + + + + | Date | Type | Department | Care Team | Description | +--------+ + + + + | 12/27/ | Telephone | [facility] | Miah Monique | Medication Refill | | 2018 | | [address] | MD [address] | | | | | [place], [place] | [address] | | | | | [address] | [place] [address] | | | | | [phone] | [phone] | | | | | | | [...]
--- OUTSIDE RECORDS SUMMARY | ~2019-03-11 | XMS | Encounter Summary ---
Demographics + + + | Address | [address] | | | [place] [address] | + + + | Home Phone | | + + + | Preferred Language | Unknown | + + + | Marital Status | | + + + | Cheondoism Affiliation | Unknown | + + + | Race | Unknown | + + + | Ethnic Group | Unknown | + + + Author + + + | Author | [facility] | | | and [place] | + + + | Organization | [facility] | | | and [place] | + + + | Address | Unknown | + + + | Phone | Unavailable | + + + Support + + + + + | Name | Relationship | Address | Phone | + + + + + | Fabienne Juarez | ECON | [place] | | | | | [address] | | + + + + + Care Team Providers + +------+ + | Care Marketing Research Intern Name | Role | Phone | + +------+ + | Celestine Watters MD | PCP | | + +------+ + Encounter Details +--------+ + + + + | Date | Type | Department | Care Team | Description | +--------+ + + + + | 11/29/ | Telephone | [facility] | Miah Monique | | | 2018 | | MD [address] | | | | | [address] | [address] | | | | | [address] | [place] [address] | | | | | [phone] | [phone] | | | | | | | [...]
--- OUTSIDE RECORDS SUMMARY | ~2019-03-11 | XMS | Encounter Summary ---
Demographics + + + | Address | [address] | | | [place] [address] | + + + | Home Phone | | + + + | Preferred Language | Unknown | + + + | Marital Status | | + + + | Protestant Affiliation | Unknown | + + + | Race | Unknown | + + + | Ethnic Group | Unknown | + + + Author + + + | Author | [facility] | | | and [place] | + + + | Organization | [facility] | | | and [place] | + + + | Address | Unknown | + + + | Phone | Unavailable | + + + Support + + + + + | Name | Relationship | Address | Phone | + + + + + | Fabienne Juarez | ECON | [place] | | | | | [address] | | + + + + + Care Team Providers + +------+ + | Care Police Records Clerk Name | Role | Phone | [...] | REQUEST) | | | | [address] [place], [place] | [address] | | | | | [address] | [place] [address] | | | | | [phone] | [phone] | | | | | | | [...]
--- OUTSIDE RECORDS SUMMARY | ~2019-03-11 | XMS | Encounter Summary ---
Demographics + + + | Address | [address] | | | [place] [address] | + + + | Home Phone | | + + + | Preferred Language | Unknown | + + + | Marital Status | | + + + | Anabaptism Affiliation | Unknown | + + + | Race | Unknown | + + + | Ethnic Group | Unknown | + + + Author + + + | Author | [facility] | | | and [place] | + + + | Organization | [facility] | | | and [place] | + + + | Address | Unknown | + + + | Phone | Unavailable | + + + Support + + + + + | Name | Relationship | Address | Phone | + + + + + | Fabienne Juarez | ECON | [place] | | | | | [address] | | + + + + + Care Team Providers + +------+ + | Care Boatbuilder Supervisor Name | Role | Phone | + +------+ + | Celestine Watters MD | PCP | | + +------+ + Reason for Visit + + + | Reason | Comments | + + + | Medication Refill | | + + + | Medication Refill | | + + + Encounter Details +--------+ + + + + | Date | Type | Department | Care Team | Description | +--------+ + + + + | 11/23/ | Telephone | [facility] | Miah Monique | Medication Refill; | | 2018 | | [address] | MD [address] | Medication Refill | | | | [place], [place] | [address] | | | | | [address] | [place] [address] | | | | | [phone] | [phone] | | | | | | | [...]
--- OUTSIDE RECORDS SUMMARY | ~2019-03-11 | XMS | Encounter Summary ---
Demographics + + + | Address | [address] | | | [place] [address] | + + + | Home Phone | | + + + | Preferred Language | Unknown | + + + | Marital Status | | + + + | Yazidi Affiliation | Unknown | + + + | Race | Unknown | + + + | Ethnic Group | Unknown | + + + Author + + + | Author | [facility] | | | and [place] | + + + | Organization | [facility] | | | and [place] | + + + | Address | Unknown | + + + | Phone | Unavailable | + + + Support + + + + + | Name | Relationship | Address | Phone | + + + + + | Fabienne Juarez | ECON | [place] | | | | | [address] | | + + + + + Care Team Providers + +------+ + | Care Knowledge Management Advisor Name | Role | Phone | + [...] [address] | | | | | [address] | [place] [address] | | | | | [phone] | [phone] | | | | | | | [...]
--- OUTSIDE RECORDS SUMMARY | ~2019-03-11 | XMS | Encounter Summary ---
Demographics + + + | Address | [address] | | | [place] [address] | + + + | Home Phone | | + + + | Preferred Language | Unknown | + + + | Marital Status | | + + + | Tenriism Affiliation | Unknown | + + + | Race | Unknown | + + + | Ethnic Group | Unknown | + + + Author + + + | Author | [facility] | | | and [place] | + + + | Organization | [facility] | [...] [place] | | | | | [address] | | + + + + + Care Team Providers + +------+ + | Care Oil Sales And Service Rep Name | Role | Phone | + [...] [address] | | | | | [address] [place], [place] | [address] | | | | | [address] | [place] [address] | | | | | [phone] | [phone] | | | | | | | [...]
--- OUTSIDE RECORDS SUMMARY | ~2019-03-11 | XMS | Encounter Summary ---
Demographics + + + | Address | [address] | | | [place] [address] | + + + | Home Phone | | + + + | Preferred Language | Unknown | + + + | Marital Status | | + + + | Rastafarian Affiliation | Unknown | + + + | Race | Unknown | + + + | Ethnic Group | Unknown | + + + Author + + + | Author | [facility] | | | and [place] | + + + | Organization | [facility] | | | and [place] | + + + | Address | Unknown | + + + | Phone | Unavailable | + + + Support + + + + + | Name | Relationship | Address | Phone | + + + + + | Fabienne Juarez | ECON | [place] | | | | | [address] | | + + + + + Care Team Providers + +------+ + | Care Oyster Unloader Name | Role | Phone | + [...] | 11/23/ | Telephone | [facility] | Miah Monique | Medication Refill; | | 2018 | | [address] | MD [address] | Medication Refill | | | | [place], [place] | [address] | | | | | [address] | [place] [address] | | | | | [phone] | [phone] | | | | | | | [...]
--- OUTSIDE RECORDS SUMMARY | ~2019-03-11 | XMS | Encounter Summary ---
Demographics + + + | Address | [address] | | | [place] [address] | + + + | Home Phone | | + + + | Preferred Language | Unknown | + + + | Marital Status | | + + + | Lutheran Affiliation | Unknown | + + + | Race | Unknown | + + + | Ethnic Group | Unknown | + + + Author + + + | Author | [facility] | | | and [place] | + + + | Organization | [facility] | | | and [place] | + + + | Address | Unknown | + + + | Phone | Unavailable | + + + Support + + + + + | Name | Relationship | Address | Phone | + + + + + | Fabienne Juarez | ECON | [place] | | | | | [address] | | + + + + + Care Team Providers + +------+ + | Care Food And Beverage Intern Name | Role | Phone | [...] | | | | [address] | [phone] | | | | | [address] | | | | | | [phone] | | | +--------+ + + + [...]
--- OUTSIDE RECORDS SUMMARY | ~2019-03-11 | XMS | Encounter Summary ---
Demographics + + + | Address | [address] | | | [place] [address] | + + + | Home Phone | | + + + | Preferred Language | Unknown | + + + | Marital Status | | + + + | Adventism Affiliation | Unknown | + + + | Race | Unknown | + + + | Ethnic Group | Unknown | + + + Author + + + | Author | [facility] | | | and [place] | + + + | Organization | [facility] | | | and [place] | + + + | Address | Unknown | + + + | Phone | Unavailable | + + + Support + + + + + | Name | Relationship | Address | Phone | + + + + + | Fabienne Juarez | ECON | [place] | | | | | [address] | | + + + + + Care Team Providers + +------+ + | Care Truck Driver Helper Name | Role | Phone | + +------+ + | No, Physician | PCP | Unavailable | + +------+ + Reason for Visit Auth/Cert +--------+--------+ + [...] | | | | encounter | | [id number] Phone: | | | | | ([facility]) | | [phone] | | | | | Mechanical | | Fax: | | | | | complication | | [phone] | | | | | of | | | | | | | prosthetic | | | | | | | knee | | | | | | | implant, | | | | | | | initial | | | | | | | encounter | | | | | | | ([facility]) | | | | | | | Procedures | | | | | | | AR REVISE | | | | | | [...] Description | +--------+---------+ + + + | 10/24/ | Surgery | [facility] | Miah Monique | ARTHROPLASTY | | 2018 | | [facility] | MD [address] | REVISION TOTAL HIP | | | | OPERATING RO[address] | [address] | | | | | [address] | [place] [address] | | | | | [place], [place] | [phone] | | | | | [address] | | | | | | [phone] | | | +--------+---------+ + + + [...] | Blood Pressure | 144/69 | 11/09/2018 3:29 PM | | | | | PDT | | + + + + + | Pulse | 90 | 11/09/2018 3:14 PM | | | [...] + | Oxygen Saturation | 93% | 11/09/2018 3:14 PM | | | | | PDT | | + + + + + | Inhaled Oxygen | - | - | | | Concentration | | | | + + + + + | Weight | 116.5 kg (256 lb | 11/06/2018 4:10 AM | | | | 13.4 oz) | PDT | | + + + + + | Height | 152.4 cm (5') | 10/24/2018 1:40 PM | | | | | PDT | | + + + + + | Body Mass Index | 50.16 | 10/24/2018 1:40 PM | | | | | PDT | | + + + + + documented [...] Discharge Summaries Miah Monique MD - 11/09/2018 5:49 AM PDT Service: Orthopedic Surgery Discharge Summary Date [...] underwent a left total hip arthroplasty rev [facility], comprising of an acetabular component revision. This [...] and psychiatry was consulted. He r psychiatry DRIVER LICENSE EXAMINER was also contacted and she was restarted [...] room air #Depression/anxiety/PTSD: -11/03/18 Discussed patient with [facility] [phone]. She has a diagnosis of PTSD and [...] TOTAL HIP; Surgeon: Miah Monique MD; Location: [facility] MAIN OR TOTAL HIP ARTHROPLASTY Left 2014 [...] * No resolved hospital problems. * Disposition: senior living Condition: Fair Code Status: Full Code Follow up: Miah Monique MD [address] [place] [address] [id number] In 4 weeks For wound re-check and [...] and documentation of disc harge summary. Miah Mnoique MD 11/09/2018 documented in this encounter Discharge Instructions Instructions Geovanna Flores RN - 11/09/2018HIP REPLACEMENT DISCHARGE INSTRUCTIONS Dr. Monique's [facility] Your bandage [...] ASA oral tablets Brand Names: Aspirtab, Aspir-Giulia, Drill Map Advanced Aspirin, Alejandra Aspirin, Alejandra Aspirin Ext [...] more often than directed. Talk to your whey department operator regarding the use of this medicine in [...] should report to your doctor or health floor care specialist as soon as p ossible: allergic reactions [...] attention (report to your doctor or health floor care specialist if they continue or are bothersome): diarrhea [...] for pain, tell your doctor or health floor care specialist if the pain lasts more than 10 [...] if prescribed by your doctor or health floor care specialist. Do not take aspirin or aspirin-like medicines [...] ou have any questions. Talk to your whey department operator regarding the use of this medicine in children. Special care may be needed. What side effects may I notice from receiving this medicine? Side effects that you should report to your doctor or health floor care specialist as soon as p ossible: allergic reactions [...] attention (report to your doctor or health floor care specialist if they continue or are bothersome): cough [...] this medicine? Tell your doctor or health floor care specialist if your symptoms do not improve. Do [...] pharmacist, or health care provider. Copyright 2019 [employer] Albuterol; Ipratropium solution for inhalation Brand Name: [...] more often than directed. Talk to your whey department operator regarding the use of this medicine in children. Special care may be needed. What side effects may I notice from receiving this medicine? Side effects that you should report to your doctor or health floor care specialist as soon as p ossible: allergic reactions [...] attention (report to your doctor or health floor care specialist if they continue or are bothersome): blurred [...] pharmacist, or health care provider. Copyright 2019 [employer] Celecoxib capsules Brand Name: Celebrex What is [...] information carefully each time. Talk to your whey department operator regarding the use of this medicine in children. Special care may be needed. What side effects may I notice from receiving this medicine? Side effects that you should report to your doctor or health floor care specialist as soon as p ossible: allergic reactions [...] attention (report to your doctor or health floor care specialist if they continue or are bothersome): constipation [...] this medicine? Tell your doctor or health floor care specialist if your pain does not get better. [...] roke, talk with your doctor or health floor care specialist. Do not take medicines such as ibuprofen [...] not take at bedtime. Talk to your whey department operator regarding the use of this medicine in children. While this drug m ay be prescribed for selected conditions, precautions do apply. What side effects may I notice from receiving this medicine? Side effects that you should report to your doctor or health floor care specialist as soon as p ossible: blood in [...] attention (report to your doctor or health floor care specialist if they continue or are bothersome): headache [...] this medicine? Visit your doctor or health floor care specialist for regular checks on your progress. Check yo ur blood pressure regularly. Ask your doctor or health floor care specialist what your blood pre ssure should be, [...] information carefully each time. Talk to your whey department operator regarding the use of this medicine in children. Special care may be needed. What side effects may I notice from receiving this medicine? Side effects that you should report to your doctor or health floor care specialist as soon as p ossible: allergic reactions like skin rash, itching or hives, swelling of the face, lips, or tong ue worsening of mood, thoughts or actions of suicide or dying Side effects that usually do not require medical attention (report to your doctor or health floor care specialist if they continue or are bothersome): constipation [...] this medicine? Visit your doctor or health floor care specialist for regular checks on your progress. You may want to keep a record at home of how you feel your condition is responding to treatment. You may want to share this information with your doctor or health floor care specialist at each vis it. You should contact your doctor or health floor care specialist if your seizures get worse or if you have any new types of seizures. Do not stop taking this medicine or any of your seiz ure medicines unless instructed by your doctor or health floor care specialist. Stopping your me dicine suddenly can increase [...] dying should be reported to your health floor care specialist right away. Women who become while using this medicine may enroll in the [place] Drug Registry by calling . [...] information carefully each time. Talk to your whey department operator regarding the use of this medicine in children. Special care may be needed. What side effects may I notice from receiving this medicine? Side effects that you should report to your doctor or health floor care specialist as soon as p ossible: allergic reactions [...] attention (report to your doctor or health floor care specialist if they continue or are bothersome): constipation [...] to an official disposal site. Contact the [facility] at [phone] or your [facility] government to find a site. If you [...] this medicine? Tell your doctor or health floor care specialist if your pain does not go away, [...] pharmacist, or health care provider. Copyright 2019 [employer] Nicotine skin patches Brand Names: Habitrol, Nicoderm [...] the same area again. Talk to your whey department operator regarding the use of this medicine in children. Special care may be needed. What side effects may I notice from receiving this medicine? Side effects that you should report to your doctor or health floor care specialist as soon as p ossible: allergic reactions [...] attention (report to your doctor or health floor care specialist if they continue or are bothersome): diarrhea [...] only last for a few days. Call [facility] doctor or health floor care specialist if skin redness does not go away after 4 days, if your skin swells, or if you get a rash. If you are a diabetic and you quit smoking, the effects of insulin may be increased and you may need to reduce your insulin dose. Check with your doctor or health floor care specialist ab out how you should adjust your [...] pharmacist, or health care provider. Copyright 2019 [employer] Olanzapine tablets Brand Name: Zyprexa What is [...] advice of your doctor or health care professiona l. A special MedGuide will be given to you by the pharmacist with each new prescription and re fill. Be sure to read this information carefully each time. Talk to your whey department operator regarding the use of this medicine in children. While this drug m ay be prescribed for children as young as 13 years for selected conditions, precautions do a pply. What side effects may I notice from receiving this medicine? Side effects that you should report to your doctor or health floor care specialist as soon as p ossible: allergic reactions [...] attention (report to your doctor or health floor care specialist if they continue or are bothersome): changes [...] this medicine? Visit your doctor or health floor care specialist for regular checks on your progress. It may b e several weeks before you see the full effects of this medicine. Notify your doctor or heal th floor care specialist if your symptoms get worse, if you have new symptoms, if you are having an unusual effect from this medicine, or if you feel out of control, very discouraged or th ink you might harm yourself or others. Do not suddenly stop taking this medicine. You may need to gradually reduce the dose. Ask y our doctor or health floor care specialist for advice. You may get dizzy or [...] allergies without asking your doctor or health floor care specialist for advice. Some ingredients can increase possible side effects. Your mouth may get dry. Chewing sugarless gum or sucking hard candy, and drinking plenty of water will help. This medicine can reduce the response of your body to heat or cold. Dress banking services clerk cold weat her and stay hydrated in [...] or health care provider. Copyright 2019 Else[employer] Oxycodone tablets or capsules Brand Names: Dazidox, [...] information carefully each time. Talk to your whey department operator regarding the use of this medicine in children. Special care may be needed. What side effects may I notice from receiving this medicine? Side effects that you should report to your doctor or health floor care specialist as soon as p ossible: allergic reactions [...] attention (report to your doctor or health floor care specialist if they continue or are bothersome): constipation [...] to an official disposal site. Contact the [facility] at [phone] or your [facility] government to find a site. If you cannot return the medicine, flush it down the toilet. Do not use the medicine after the expiration date. What should I tell my health care provider before I take this medicine? They need to know if you have any of these conditions: [place]'s disease brain tumor head injury heart disease [...] this medicine? Tell your doctor or health floor care specialist if your pain does not go away, [...] pharmacist, or health care provider. Copyright 2019 [employer] Prednisone tablets Brand Names: Deltasone, Predone, Sterapred, [...] avoid any side effects. Talk to your whey department operator regarding the use of this medicine in children. Special care may be needed. What side effects may I notice from receiving this medicine? Side effects that you should report to your doctor or health floor care specialist as soon as p ossible: allergic reactions [...] attention (report to your doctor or health floor care specialist if they continue or are bothersome): confusion, [...] ta lk to your doctor or health floor care specialist. You may need to miss a dose [...] if you have any of these conditions: Woodman's syndrome diabetes glaucoma heart disease high blood [...] this medicine? Visit your doctor or health floor care specialist for regular checks on your progress. If [...] have surgery, tell your doctor or health floor care specialist that you hav e taken this medicine within the last twelve months. Ask your doctor or health floor care specialist about your diet. You may need to lower the amou nt of salt you eat. This medicine may affect blood sugar levels. If you have diabetes, check with your doctor o r health floor care specialist before you change your diet or the dose of your diabetic medicine . NOTE:This sheet is a summary. It may not cover all possible information. If you have questi ons about this medicine, talk to your doctor, pharmacist, or health care provider. Copyright 2019 Elsevier Senna tablets or capsules Brand Names: Black [...] e often than directed. Talk to your whey department operator regarding the use of this medicine in children. While this medici ne may be prescribed for children as young as 2 years for selected conditions, precautions d o apply. What side effects may I notice from receiving this medicine? Side effects that you should report to your doctor or health floor care specialist as soon as p ossible: diarrhea muscle weakness nausea, vomiting unusual weight loss Side effects that usually do not require medical attention (report to your doctor or health floor care specialist if they continue or are bothersome): bloating [...] directed by your doctor or health care professionmoshe crystal. This medicine can be habit-forming. Long-term use can make your body depend on the laxati ve for regular bowel movements, damage the bowel, cause malnutrition, and problems with the amounts of water and salts in your body. If your constipation keeps returning, check with yo doctor or health floor care specialist. NOTE:This sheet is a summary. It may not cover all possible information. If you have questi ons about this medicine, talk to your doctor, pharmacist, or health care provider. Copyright 2019 [employer] Tramadol tablets Brand Name: Ultram What is [...] information carefully each time. Talk to your whey department operator regarding the use of this medicine in children. Special care may be needed. What side effects may I notice from receiving this medicine? Side effects that you should report to your doctor or health floor care specialist as soon as p ossible: allergic reactions [...] attention (report to your doctor or health floor care specialist if they continue or are bothersome): constipation [...] this medicine? Tell your doctor or health floor care specialist if your pain does not go away, [...] 3 days, call your doctor or health floor care specialist. Your mouth may get dry. Chewing sugarless [...] attachments cannot be sent through Care Everywhere.Sepsis (Bulgarian )Sepsis, Understanding (Bulgarian)documented in this encounter Medications at Time of [...] Notes Luis A Rojas RN - 11/09/2018 3:53 PM PDTPt left via wheelchair with transport to home, IVs were removed, discharge teaching was provided and all questions addressed Electronically signed by: Luis A Rojas RN 11/09/2018 15:54 arpal Fine MD - 2:29 PM PDT [facility] Service: Hospitalist Progress Note Pt: Sylvie Ramsey [...] referrals to patient. Medically I recommend patient christiano campos to take her medications as prescribed and [...] over2 weeks #Depression/anxiety/PTSD: -11/03/18 Discussed patient with [facility] [phone]. She has a diagnosis of PTSD and [...] notes for continuity of care purp ose Harpal Ray MD - 0 11/08/2018 12:00 PM PDT [facility] Service: Hospitalist Progress Note Pt: Sylvie Ramsey [...] encounter as of 11/08/18-12:01 IMAGING: Reviewed in [facility], no new results. PROBLEM LIST Principal Problem: [...] as able #Depression/anxiety/PTSD: -11/03/18 Discussed patient with [facility] [phone]. She has a diagnosis of PTSD and [...] purp ose ird, Shasha Whyte RN - 4:44 AM PDTPatient still complains of significant amounts of pain at L hip after a ll available pain medications and other interventions such as repositioning and ambulation h ave been provided. Still requiring 2L of oxygen via NC. Ambulates fairly well with platform walker to commode. No significant events during hourly rounding. Shasha Monsalve RN Geovanna Turk R N - 11/07/2018 6:55 PM PDTEnd of shift chart check complete. Geovanna Flores RN Harpal Ray M D - 11/07/2018 2:04 PM PDT [facility] Service: Hospitalist Progress Note Hospital Day: 14 [...] and psychiat ry was consulted. Her psychiatry DRIVER LICENSE EXAMINER was also contacted and she was restarted [...] 11/07/18 0411 PROCALCITONI 0.10 Imaging: Reviewed in [facility], no new results. PROBLEM LIST Principal Problem: [...] as tolerated #Depression/anxiety/PTSD: -11/03/18 Discussed patient with [facility] [phone]. She has a diagnosis of PTSD and [...] nasal canula Harpal Fine MD 14:05 11/07/2018 Reema Chambers MD - 11/07/2018 8:06 AM PDT [facility] Service: PULMONOLOGY Progress Note Date of Admission: [...] breath improved. Not coughing at this time. Sincere miranda remains on HFNC at 25LPM at 29% [...] TOTAL HIP; Surgeon: Miah Monique MD; Location: [facility] MAIN OR TOTAL HIP ARTHROPLASTY Left 2014 [facility] Family History Problem Relation Age of Onset [...] on HFNC at 25LPM, 29% FiO2. July tr y oxymask. - would complete 7 days [...] file Godwin Man MD 11/07/2018 orter, MIGDALIA Leary - 11/06/2018 10:09 AM PDTFormatting of this note might be different from the o javed. [facility] Service: Orthopedic Surgery Progress Note Hospital Day: [...] MIGDALIA Thompson has created this entry using [employer] and [employer] macros. The entry has been reviewed and there may still exist sound alike word errors. Kush Miller MD - 11/06/2018 8:02 AM PDT [facility] Service: Hospitalist Progress Note Pt: Sylvie Ramsey AGE/SEX: 48 y.o. female ROOM: 19/9119- : 1970 PCP: No Physician on file [...] agitaitation and psychiatry was consulted. Her psychiatry DRIVER LICENSE EXAMINER was also contacted and she was restarted [...] is calm today. LABS: Recent Labs Lab 11/06/1840811/05/1840411/04/18352 WBC 21.02* 20.45* 18.65* HGB 11.9 12.6 [...] hours. No results for input(s): PHART, PO2ART, QRK5ZGQ, F5CTLAZW, BEART in the last 168 hours. No results for input(s): APTT, INR, PTT in the last 168 hours. No results for input(s): TSH in the last 168 hours. Invalid input(s): T3FREE, FREET4 No results for input(s): TROPONINT in the last 168 hours. Invalid input(s): CKTOTAL, TROPONINI, CKMBINDEX Microbiology Results (72 hrs) Procedure Component Value Units Date/Time Culture, Respiratory, Lower, Smear [[id number]] Collected: 10/29/181728 Order Status: Completed Lab Status: [...] HELD 48 HOURS. RESULT Testing performed at [facility], [address] [place] [address] Comment: Testing performed at [facility], [address] [place] [address] RADIOLOGY: Recent Results (from the past 360 [...] of a neoplastic process. Signed by: Korina oDnovan, Gilles Sign Date/Time: 10/27/2018 6:46 PM VAS [...] study. Depression/anxiety/ptsd - 11/03/18 Discussed patient with [facility] [phone]. She has a diagnosis o f PTSD [...] and managing patient and counseling/coordination. Dictation software, Cel[employer], used which may contain error for similar sounding words even af ter review. Personal communication requested for any clarification. Portions of this chart may have been copied from previous notes for continuity of care purp ose Terri Osullivan RN - 11/05/2018 6:19 PM PDTEnd of shift review complete. Donovan Loja PA - 11/05/2018 10:52 AM PDT [facility] Service: Orthopedic Surgery Progress Note Hospital Day: [...] MIGDALIA Thompson has created this entry using [employer] and [employer] macros. The entry has been reviewed and there may still exist sound alike word errors. Kush Miller MD - 11/05/2018 9:44 AM PDT [facility] Service: Hospitalist Progress Note Pt: Sylvie Ramsey AGE/SEX: 48 y.o. female ROOM: 91/9119-01 : 1970 PCP: No Physician on file [...] agitaitation and psychiatry was consulted. Her psychiatry DRIVER LICENSE EXAMINER was also contacted and she was restarted [...] 11/04/18 1918 69 18 96 % 11/04/18 191 120/58 36.7 C (98 F) Oral 74 [...] hours. No results for input(s): PHART, PO2ART, VDB8CPA, Z8UMYXQW, BEART in the last 168 hours. No results for input(s): APTT, INR, PTT in the last 168 hours. No results for input(s): TSH in the last 168 hours. Invalid input(s): T3FREE, FREET4 No results for input(s): TROPONINT in the last 168 hours. Invalid input(s): CKTOTAL, TROPONINI, CKMBINDEX Microbiology Results (72 hrs) Procedure Component Value Units Date/Time Culture, Respiratory, Lower, Smear [[id number]] Collected: 10/29/181728 Order Status: Completed Lab Status: [...] HELD 48 HOURS. RESULT Testing performed at [facility], [address] [place] [address] Comment: Testing performed at [facility], [address] [place] [address] RADIOLOGY: Recent Results (from the past 360 [...] study. Depression/anxiety/ptsd - 11/03/18 Discussed patient with [facility] [phone]. She has a diagnosis o f PTSD [...] and managing patient and counseling/coordination. Dictation software, Cel[employer], used which may contain error for similar sounding words even af ter review. Personal communication requested for any clarification. Portions of this chart may have been copied from previous notes for continuity of care purp ose Romana Hubbard RN - 11/05/2018 6:29 AM PDTPt has been stable and pleasant throuhghout shift. Cooperative with all care. High flow O2 requirements have remained unchanged from previous shift. Chart check completed. Shanice Elizabeth RN - 11/04/2018 5:56 PM PDTSepsis team signing off. Please call with any questions/concerns. [phone]. Shanice Rahman RN P DTStump, Lala Pennington RN - 11/04/2018 5:16 PM PDTPt has been stable and pleasant throughout shif t. She was cooperative with mobility. Pt attempted to have a BM today. It was hard and im pacted. High flow O2 requirements decreasing. 1300mL left on fluid restriction for the day . No restraints, blood, or signed and held orders. Electrolyte protocol followed with no replacement needed. Glycolax given per parameters with no results. Pt will need Milk of Magnesia and/or lactul ose tomorrow. End of shift review complete. avid Reddy Chaplain - 11/04/2018 3:24 PM PDTChecked in w/RN. Pt lying on bed, anca e. Lyric intro'd self, asked how pt doing. She said, "Doing fine, thanks for coming by." Lyric e xplained maintenance instructor availability days & nights if needed. Pt thanked elvia. Chaplain David Greeney Donovan Belle PA - 11/04/2018 1:02 PM PDT [facility] Service: Orthopedic Surgery Progress Note Hospital Day: [...] MIGDALIA Thompson has created this entry using [employer] and [employer] macros. The entry has been reviewed and there may still exist sound alike word errors. Kush Miller MD - 11/04/2018 11:50 AM PDT [facility] Service: Hospitalist Progress Note Pt: Sylvie Ramsey [...] % 122.5 kg (270 lb 1 oz) 11/03/18 2257 105/59 36.6 C (97.8 F) Axillary 65 [...] PLT 421* 410* 390 Recent Labs Lab 08/31/35211/03/188 11/02/188 NA 145 140 139 K 4.5 4.0 3.6 CL 102 99 97* CO2 35* 39* 38* BUN 40* 39* 31* CALCIUM 8.4* 8.1* 8.7 Phosphorus: Lab Results Component Value Date PHOS 3.4 10/31/2018 No results for input(s): LABALBU in the last 168 hours. Recent Labs Lab 11/04/1835211/03/1835711/02/18 0408 MG 2.7* 2.7* 2.8* No results for input(s): AMYLASE in the last 168 hours. No results for input(s): PHART, PO2ART, KRT6IRN, O7TYAEAG, BEART in the last 168 hours. No results for input(s): APTT, INR, PTT in the last 168 hours. No results for input(s): TSH in the last 168 hours. Invalid input(s): T3FREE, FREET4 No results for input(s): TROPONINT in the last 168 hours. Invalid input(s): CKTOTAL, TROPONINI, CKMBINDEX Microbiology Results (72 hrs) Procedure Component Value Units Date/Time Culture, Respiratory, Lower, Smear [[id number]] Collected: 10/29/181728 Order Status: Completed Lab Status: [...] HELD 48 HOURS. RESULT Testing performed at [facility], [address] [place] [address] Comment: Testing performed at [facility], [address] [place] [id number] RADIOLOGY: Recent Results (from the past 360 [...] study. Depression/anxiety/ptsd - 11/03/18 Discussed patient with [facility] [phone]. She has a diagnosis o f PTSD [...] quit GI/DVT prophylaxis PT/OT Kush Ge MD 11/04/2018 11:50 Greater than 35 minutes spent today overall in coordination of care, seeing and managing migdalia chester, review of data, coordination with staff, coordination with involved consultants, and including any scheduled multidisciplinary rounding focused on the patient with 50 percent or more spent seeing and managing patient and counseling/coordination. Dictation software, Cel-[employer], used which may contain error for similar sounding words even af ter review. Personal communication requested for any clarification. Portions of this chart may have been copied from previous notes for continuity of care purp ose Emilio Dawn PA- C - 11/03/2018 10:57 AM PDT She notes that pain is well controlled. She has been eating and voiding without issues. t his morning she was combative to therapist and threw breakfast tray. Patient states she is frustrated with being here for a long time and wants to go home. She continues to have regu lar p.o. Intake. Per dispatcher electric power note oxygenation is improving. 1. Pain in prosthetic joint, initial encounter ([facility]) 2. Mechanical complication of prosthetic knee implant, initial encounter ([facility]) 3. Mechanical instability of hip prosthesis ([facility]) 4. Shortness of breath 5. Acute respiratory failure with hypoxia ([facility]) Past Medical History: Diagnosis Date Anxiety Anxious depression Arthralgia Arthritis Asthma not using inhalers DDD (degenerative disc disease), lumbar Deliberate self-cutting history of Depression Heartburn Hemorrhage of gastrointestinal tract 2015 upper and lower due ulcers Morbid obesity with BMI of 50.0-59.9, adult ([facility]) Pain in prosthetic joint ([facility]) with instability Panic attacks states [...] once cleared by hospitalist and pulmonology specialis rosemarie Moreno 11/03/2018 Francoise Duarte RN - 11/03/2018 10:39 AM Jesusita ball called this am at approx 0900. Pt breaking dishes, t hrowing full water pitcher, and yelling profanities at pt d/t therapist attempting to work w ith pt doing mobility exercises. Security, risk, pcc, stepdown lawn service manager, primary md, and lead rn present with bedside rn. Pt crying and yelling that she doesn't want to "be here". Per elvia finley disruptive/violent pt paperwork filled out. Situation and pt expectations reviewed by risk and lawn service manager with pt. Sitter at bedside currently. Ever Jenkins PT - 11/03/2018 8:35 AM PDTFormatt ing of this note might be different from the original. 11/03/18 [...] the room, pt through breakfast tray at [facility]. Dada mares called by [employer] plans staff officer. pt. also stated during session everything we have been doing for her is wrong. Leon Javier R RT - 11/03/2018 8:18 AM PDTPatient found to have High Flow Nasal Cannula out of nostrils an d low oxygen saturations of 77%. Patient declined bipap, however let me place cannula in no strils. Patient refused nebulizer treatment and stated she wants to get out of here. HFNC 60L 49% , Spo2 94% ush Ge MD - 11/03/2018 7:44 AM PDTFormatting of this note might be different f rom the original. [facility] Service: Hospitalist Progress Note Pt: Sylvie Ramsey AGE/SEX: 48 y.o. female ROOM: [address] [place] [address] : 1970 PCP: No Physician on file [...] the last 168 hours. Recent Labs Lab 11/03/18 0358 11/02/18 0408 11/01/18 0417 MG 2.7* 2.8* 2.7* No results for input(s): AMYLASE in the last 168 hours. No results for input(s): PHART, PO2ART, FGS1ZPJ, R5YHTJND, BEART in the last 168 hours. No results for input(s): APTT, INR, PTT in the last 168 hours. No results for input(s): TSH, T3FREE in the last 168 hours. Invalid input(s): FREET4 No results for input(s): TROPONINT in the last 168 hours. Invalid input(s): CKTOTAL, TROPONINI, CKMBINDEX Microbiology Results (72 hrs) Procedure Component Value Units Date/Time Culture, Respiratory, Lower, Smear [[id number]] Collected: 10/29/181728 Order Status: Completed Lab Status: [...] HELD 48 HOURS. RESULT Testing performed at [facility], [address] [place] [id number] Comment: Testing performed at [facility], [address] [place] [address] RADIOLOGY: Recent Results (from the past 360 [...] sleep study. Depression/anxiety/ptsd - Discussed patient with [facility] [phone]. She has a diagnosis of PTSD a [...] making capacity - consulted psychiatry. Appreciate recs. crm campaign manager to attempt to obtain more information [...] and managing patient and counseling/coordination. Dictation software, [employer], used which may contain error for similar sounding words even af ter review. Personal communication requested for any clarification. Portions of this chart may have been copied from previous notes for continuity of care purp ose Kanwal Diego RN - 11/03/2018 4:43 AM PDTHourly rounding uneventful. VSS, patient reported that her pain wa s tolerable after scheduled MS contin. Will continue to monitor. All questions and/or concer ns answered. Chart check complete. Sanjuanita Romero RN - 11/02/2018 4:40 PM PDTPt became very anxious this morning after finding out she was not jfefry dy for discharge today. She stated that we have done wrong things to her and that we have no t provided good care. She demanded to be transfer to a hospital in [facility], or that she was going to call the police and maxim the hospital. , lead nurse, foster care case manager and risk not ified. Pt remained calmed after risk talked to her. She continues on BiPAP and hi flow with meals. PRN norco given. Chart check complete. Sanjuanita Peters RN Emilio Dawn PA-C - 11/02/2018 4:21 PM PDTFormatting of this note might be different from th e original. Patient pain is well controlled and is toe-touch weight bearing. She continues physical th erapy. Is on BiPAP at this time and continue to be managed by dispatcher electric power and hospitalist . No new orthopedics events 1. Pain in prosthetic joint, initial encounter ([facility]) 2. Mechanical complication of prosthetic knee implant, initial encounter ([facility]) 3. Mechanical instability of hip prosthesis ([facility]) 4. Shortness of breath 5. Acute respiratory failure with hypoxia ([facility]) Past Medical History: Diagnosis Date [...] AC Harpal Fine MD 40 mg at 11/02/18 0615 [...] weightbearing Continue DVT prophylaxis Continue hospitalist and dispatcher electric power management for comorbidities plan will be to eventua lly go to rehab or SNF once cleared by specialist Emilio Moreno 11/02/2018 Moses Solorzano, PT - 11/02/2018 12:59 PM PDT 11/02/18 1259 PT Visit Summary PT Visit Type Missed Visit (patient unavailable) (Tele psych consult in progress) Next Visit Information 11/02, LTHA, 2PA Kush Miller MD - 11/02/2018 7:44 AM PDT [facility] Service: Hospitalist Progress Note Pt: Sylvie Ramsey [...] Behavior is normal. LABS: Recent Labs Lab 11/02/1840711/01/1841610/31/1841310/28/18 0835 WBC 19.10* 14.67* 13.03* < > 15.60* HGB 10.8* 11.1* 10.8* < > 11.1* HCT 32.7* 33.3* 32.1* < > 33.1* PLT 390 380 356 < > 296 MONOPCT -- -- -- -- 2.27 < > = values in this interval not displayed. Recent Labs Lab 11/02/18 04011/01/1841610/31/18 1815 10/31/18413 NA 139 140 -- 141 [...] hours. No results for input(s): PHART, PO2ART, QGV9UDG, T2RAOGLE, BEART in the last 168 hours. No results for input(s): APTT, INR, PTT in the last 168 hours. No results for input(s): TSH, T3FREE in the last 168 hours. Invalid input(s): FREET4 No results for input(s): TROPONINT in the last 168 hours. Invalid input(s): CKTOTAL, TROPONINI, CKMBINDEX Microbiology Results (72 hrs) Procedure Component Value Units Date/Time Culture, Respiratory, Lower, Smear [[id number]] Collected: 10/29/181728 Order Status: Completed Lab Status: [...] HELD 48 HOURS. RESULT Testing performed at [facility], [address] [place] [address] Comment: Testing performed at [facility], [address] [place] [address] RADIOLOGY: Recent Results (from the past 360 [...] the signing radiologist was present for the cohi portions of the exam. XR Pelvis Complete [...] making capacity - consulted psychiatry. Appreciate recs. crm campaign manager to attempt to obtain more information from family. Kush Ge MD 11/02/2018 7:44 Greater than 35 minutes spent today overall in coordination of care, seeing and managing pa henrik, review of data, coordination with staff, coordination with involved consultants, and including any scheduled multidisciplinary rounding focused on the patient with 50 percent or more spent seeing and managing patient and counseling/coordination. Dictation software, [employer], used which may contain error for similar sounding words even af ter review. Personal communication requested for any clarification. Portions of this chart may have been copied from previous notes for continuity of care purp ose Kanwal Diego RN - 11/02/2018 5:46 AM PDTVSS, patient rested comfortably throughout shift. Hourly rounding uneventful Chart check complete. Emilio Dawn PA-C - 11/01/2018 3:01 PM PDT Patient notes that her pain continues to be well controlled. She is working well with phys ical therapy and continues to be touchdown weightbearing no new events noted. She continues to be managed by hospitalist and dispatcher electric power and is currently on BiPAP 1. Pain in prosthetic joint, initial encounter ([facility]) 2. Mechanical complication of prosthetic knee implant, initial encounter ([facility]) 3. Mechanical instability of hip prosthesis ([facility]) 4. Shortness of breath 5. Acute respiratory failure with hypoxia ([facility]) Past Medical History: Diagnosis Date [...] BID ARLETTE Fine MD 40 mg at 11/01/18 0846 [...] from medicien standpoint Emilio Moreno 11/01/2018 Shoaib Marvin, RD - 11/01/2018 11:17 AM PDT 11/01/18 1111 Reason for Assessment Reason [...] protocol. Assessment Required Follow Up 7 days (11/08 L ) Rodney Zheng RD, CD Kush Miller MD - 11/01/2018 7:36 AM PDT [facility] Service: Hospitalist Progress Note Pt: Sylvie Ramsey AGE/SEX: 48 y.o. female ROOM: [facility]9119-01 : 1970 PCP: No Physician on file [...] Behavior is normal. LABS: Recent Labs Lab 11/01/1841610/31/1841310/30/1841710/28/18 0835 WBC 14.67* 13.03* 13.87* < > 15.60* HGB 11.1* 10.8* 10.9* < > 11.1* HCT 33.3* 32.1* 32.6* < > 33.1* PLT 380 356 385 < > 296 MONOPCT -- -- -- -- 2.27 < > = values in this interval not displayed. Recent Labs Lab 11/01/1841610/31/18 1815 10/31/1841310/30/18417 NA 140 -- 141 141 K 4.0 [...] hours. No results for input(s): PHART, PO2ART, ZQD7YMM, S4YBIIWD, BEART in the last 168 hours. No results for input(s): APTT, INR, PTT in the last 168 hours. No results for input(s): TSH, T3FREE in the last 168 hours. Invalid input(s): FREET4 No results for input(s): TROPONINT in the last 168 hours. Invalid input(s): CKTOTAL, TROPONINI, CKMBINDEX Microbiology Results (72 hrs) Procedure Component Value Units Date/Time Culture, Respiratory, Lower, Smear [[id number]] Collected: 10/29/181728 Order Status: Completed Lab Status: [...] HELD 48 HOURS. RESULT Testing performed at [facility], [address] [place] [address] Comment: Testing performed at [facility], [address] [place] [address] RADIOLOGY: Recent Results (from the past 360 [...] and managing patient and counseling/coordination. Dictation software, [employer], used which may contain error for similar sounding words even af ter review. Personal communication requested for any clarification. Portions of this chart may have been copied from previous notes for continuity of care purp ose ojenna, Juan Crystal RN - 11/01/2018 6:52 AM PDTPt remains mainly BiPAP depedent at 50% FiO2 throughout the night. Lung sounds coarse, with crackles and exp. Wheezes, unchanged from prior shift. Pt is begi nning to tolerate Hi-Flow O2 for longer periods of time, up to 20 minutes for meals and 1 30 minute period overnight with saturations above 90%. Otherwise, VSS, tmax of 99.3 and UOP QS from [place]. End of shift chart check complete. Gianna June RN - 10/31/2018 6:06 PM PDTRemains on Bipap Fio2 50% and SpO 2 >93%. Unable to titrate further at this time. Education and reminders given for [facility] ed for maximal lung expansion. Becomes dyspneic with transitioning to high flow for meal katerina es. BP remains WNL and HR NSR. Slight raise in temp to 99.5, WCTM. K replaced x1. Denies nee d for pain medications. End of shift chart review complete. Gianna Wasserman RN Emilio Dawn PA-C - 10/31/2018 3:01 PM PDT Patient notes that pain is well controlled with current pain medications and continues to w ork with physical therapy, she is touch down weight bearing. She continues to be on bi-pap . No new ortho concerns 1. Pain in prosthetic joint, initial encounter ([facility]) 2. Mechanical complication of prosthetic knee implant, initial encounter ([facility]) 3. Mechanical instability of hip prosthesis ([facility]) 4. Shortness of breath 5. Acute respiratory failure with hypoxia ([facility]) Past Medical History: Diagnosis Date Anxiety Anxious depression Arthralgia Arthritis Asthma not using inhalers DDD (degenerative disc disease), lumbar Deliberate self-cutting history of Depression Heartburn Hemorrhage of gastrointestinal tract 2015 upper and lower due ulcers Morbid obesity with BMI of 50.0-59.9, adult ([facility]) Pain in prosthetic joint (HCC) [...] PRN Fab Vickers 2 puff at 10/27/18 0514 albuterol-ipratropium 2.5-0.5 mg/3 mL nebulizer solution 3 [...] 1 tablet 1 tablet Oral Q6H PRN F renato Ge MD HYDROmorphone (DILAUDID) injection 0.25-1 mg 0.25-1 mg Intravenous Q2H PRN Miah sweeney MD 1 mg at 10/25/18 0230 hydrOXYzine hydrochloride (ATARAX) tablet 10 mg 10 mg Oral TID PRN Miah oMnique MD 10 mg at 10/30/18 2339 lactulose [...] Yuki Pruett MD 50 mg at 10/30/18 031 Allergies Allergen Reactions Bupropion Hives Principal Problem: [...] change in ortho plan Emilio Moreno 10/31/2018 ait, Sara Crystal RN - 10/31/2018 8:23 AM PDTChart reviewed. Kush Miller MD - 10/31/2018 8:07 AM PDT [facility] Service: Hospitalist Progress Note Pt: Sylvie Ramsey [...] hours. No results for input(s): PHART, PO2ART, SXM4BFZ, I2WLJMLY, BEART in the last 168 hours. No results for input(s): APTT, INR, PTT in the last 168 hours. No results for input(s): TSH, T3FREE in the last 168 hours. Invalid input(s): FREET4 No results for input(s): TROPONINT in the last 168 hours. Invalid input(s): CKTOTAL, TROPONINI, CKMBINDEX Microbiology Results (72 hrs) Procedure Component Value Units Date/Time Culture, Respiratory, Lower, Smear [[id number]] Collected: 10/29/181728 Order Status: Completed Lab Status: [...] HELD 48 HOURS. RESULT Testing performed at [facility], [address] [place] [address] Comment: Testing performed at [facility], [address] [place] [address] RADIOLOGY: Recent Results (from the past 360 [...] and managing patient and counseling/coordination. Dictation software, [employer], used which may contain error for similar sounding words even af ter review. Personal communication requested for any clarification. Portions of this chart may have been copied from previous notes for continuity of care purp ose Juan Gonzales RN - 10/31/2018 6:47 AM PDTUnable to wean pt off BiPAP overnight, pt remains on 55% FiO2 with O2 sats 92-94%. Pt desatting down to low 80's in seconds when off BiPAP and continues to h ave labored breathing, SOB and anxiety when on Hi-Flow O2 for meals and medications. Pt unwi lling to try Hi-Flow O2 this morning wishing to sleep. Pt's pain well controlled throughout the shift, but pt unable still unable to sleep. L hip dressing is C/D/I and soft. End of shift chart check complete. Gianna June RN - 10/30/2018 5:34 PM PDTAttempted to titrate down on Bipa p fio2 to 50%. SpO2 89%. Will continue to attempt titration. On high flow nasal cannula for eating. Needing frequent reminders to sit HOB elevated to achieve maximal lung expansion. Pt took off mask without notifying staff and desat into 70s, replaced mask and SpO2 recovered. End of shift chart review complete. Gianna Wasserman RN Emilio Dawn PA-C - 10/30/2018 1:04 PM PDT Patient summary: Patient notes that pain is well controlled on left hip she has been workin g with physical therapy And continues to be touchdown weightbearing. Continues to be manag ed by hospitalist team and is on BiPAP at this time Events overnight: No orthopedic events overnight 1. Pain in prosthetic joint, initial encounter (HCC) 2. Mechanical complication of prosthetic knee implant, initial encounter ([facility]) 3. Mechanical instability of hip prosthesis (HCC) 4. Shortness of breath 5. Acute respiratory failure with hypoxia ([facility]CC) Past Medical History: Diagnosis Date Anxiety Anxious [...] Moreno 10/30/2018 Yuki Courtney MD - 10/30/2018 7:58 AM PDTFormatting of this note might be different from the origin al. [facility] Service: Hospitalist Progress Note Hospital Day: LOS: [...] 96 23 94 % 10/29/18 2021 107/56 10/29/18 1907 102/55 36.3 C (97.4 F) Axillary [...] normal mood and affect. DATA Recent Labs 10/30/1841710/29/18438 WBC 13.87* 15.10* HGB 10.9* 10.8* HCT [...] for input(s): IRON, TIBC, PCTSAT, FERRITIN, TSH, [id number], FOLATE in the last 168 hours. Recent [...] continue nicotine patch. Deconditioning. Physical therapy recommended [facility] facility when stable. Plan discussed with patient. All questions were answered . All data was reviewed. Disposition: Inpatient Code Status: Full Code Yuki Pruett MD 10/30/2018 8:02 This entry has been created using [employer] Speech Recognition software and [employer]. The entry has been reviewed and there may still exist sound alike word errors. Kellee Diego i, RN - 10/30/2018 6:48 AM PDTAttempted to put patient on high flow 02 x2 attempts. Was u nable to keep 02 above 80's placed patient back on biPAP. Otherwise VSS and hourly rounding uneventful. Chart check complete. Víctor Wells ARNP - 10/29/2018 7:31 PM PDT [facility] Service: Orthopedic Surgery Progress Note 10/29/2018 Hospital [...] Status: Full Code WENCESLAO De Guzman 10/29/2018 Js June i, RN - 10/29/2018 6:42 PM PDTRemains on Bipap FiO2 55% and SpO2 >93%. Taken off shortly and replaced w high flow nasal cannula for periods of eating. Needing recovery period w frias sition from high flow to BiPap. HR 90s at rest. 100s w activity in bed. Afebrile. BP soft in the early afternoon however SBP 100s-120s. Bp cycling q hour. Placed on bedpan for feelings of BM, no BM produced. Lactulose given today. PRN trazadone given, states this helped the p isaiasn in her L leg. Appears comfortable. Sent sputum for culture. End of shift chart review complete. Gianna Wasserman RN Gianna June RN - 10/29/2018 11:11 AM PDTTransferred pt to 9rp, immediately placed on Bipap fio2 titrated f rom 50% to 65%. Called Dr. Pruett to determine if pt is to switch to high flow, awaiting Dr. Joseph to see this pt today. WCTM and report any new findings. Gianna Wasserman RN Yuki Courtney MD - 10/29/2018 7:39 AM PDTFormatting of this note might be different from the origin [facility] Service: Hospitalist Progress Note Hospital Day: LOS: [...] 23 (!) 88 % 10/28/18 2149 96/55 10/28/18 2135 93/51 37.2 C (99 F) Axillary 103 [...] mood and affect. DATA Recent Labs 10/29/18 0439 10/28/18 0835 WBC 15.10* 15.60* HGB 10.8* 11.1* [...] for input(s): IRON, TIBC, PCTSAT, FERRITIN, TSH, [id number], FOLATE in the last 168 hours. Recent [...] 7:39 This entry has been created using H-art [employer] Speech Recognition software and [employer]. The entry has been reviewed and there may still exist sound alike word errors. Bailey Wellsian GUILLERMOP - 10/28/2018 5:52 PM PDT . [facility] Service: Orthopedic Surgery Progress Note 10/28/2018 Hospital [...] ARTHROPLASTY P)continue medical care per hospitalist and dispatcher electric power. Weight bear as tolerated LLE. Continue PT and OT as tolerated d/t sob Code Status: Full Code WENCESLAO De Guzman 10/28/2018 IEMoNaveen manuel [facility] - 10/28/2018 9:27 AM PDT Clinical Pharmacy Note: Piperacillin-Tazobactam (Zosyn) Extended [...] 10/28/2018 Pharmacist Yuki Courtney MD - 10/28/2018 8:21 AM PDTFormatting of this note might be different from the [facility] Service: Hospitalist Progress Note Hospital Day: LOS: [...] for input(s): IRON, TIBC, PCTSAT, FERRITIN, TSH, [id number], FOLATE in the last 168 hours. Recent [...] 10:29 This entry has been created using H-art ([employer] Speech Recognition software and [employer]. The entry has been reviewed and there may still exist sound alike word errors. Tri Dyson RN - 10/28/2018 5:02 AM PDTPt continues to be on 13L via oxy mask sat. 93%. Kishore g sounds are coarse, with crackles and wheezes throughout. Pt c/o left hip pain. PRN pain med given. Chart check complete. Electronically signed by Diego Galeano RN at 5:38 AM Harpal Ray MD - 10/27/2018 7:14 PM PDTFormatting of this note migh t be different from the original. [facility] Adult Hospitalist Event Note Hospital Day: 3 [...] their questions. Harpal Fine MD 19:14 10/27/2018 enshanta, Gina Miranda CRT - 10/27/2018 4:45 PM PDTPt's O2 needs suddenly, increased WOB incresed.. RAT called. Prn neb given to help alleviate expiratory wheezing. BS after decreased with some remaini ng expiratory wheezes. Pt on 12lpm oxy mask. Prn neb also given earlier in shift to help w ith breathing. Pt was able to expectorate large thick yellow mucus. Emilio Dawn PA-C - 10/27/2018 9:50 AM PDT Patient notes this morning she has had increased pain not well controlled with current pain regimen. She notes working with pt and continuing to be touch down weight bearing. She al so note developing sob and chest tightness sxs that developed this am after returning from [facility]. Denies dizziness, nausea, cough, chest pain, abdominal pain vomiting or headache 1. Pain in prosthetic joint, initial encounter ([facility]) 2. Mechanical complication of prosthetic knee implant, initial encounter ([facility]) 3. Mechanical instability of hip prosthesis ([facility]) Past Medical History: Diagnosis Date Anxiety Anxious depression Arthralgia Arthritis Asthma not using inhalers DDD (degenerative disc disease), lumbar Deliberate self-cutting history of Depression Heartburn Hemorrhage of gastrointestinal tract 2015 upper and lower due ulcers Morbid obesity with BMI of 50.0-59.9, adult ([facility]) Pain in prosthetic joint ([facility]) with instability Panic attacks states [...] BID Miah Monique MD 200 mg at 10/26/180 citalopram (celeXA) tablet 40 mg 40 mg [...] dc to rehab tomorrow Emilio Moreno 10/27/2018 Hussain-Jimena Kingston RN - 10/27/2018 5:52 AM PDTPt VSS, ambulating, voiding, medications for pain given, pt complaining of asthma getting worse and a wheeze, called [facility]. New IV placed Chart check complete Jimena Platt RN 10/27/18 @6:26 Barbi Joy RN - 10/26/2018 8:04 PM PDTPatient had increased pain with ambulation which was relieved w ith rest and pain medication. She is passing gas but has not had a bowel movement yet. She a mbulates with a front wheel walker and is toe touch weight baring. Her bed is in the lowest position, call light is within reach and she calls appropriately. Chart check complete.Elect ronically signed by Barbi Merchant RN at 10/26/2018 8:06 PM Loraine Linton RN - 10/06 1:29 PM PDTCare Management Follow-Up Readmission Risk: Low Current Discharge Plan Anticipated Discharge Disposition: (P) home with assist Expected DC Date: Barriers to Discharge: Steps Taken Toward Discharge: Next Steps: Community Support Services Current Outpt/Agency/Support Groups: (P) [facility] (specify) Community Agency Name: Other Resources: Discharge Transportation Transportation Needs: (P) family or friend will provide Notes: Electronically signed: LORAINE MANN RN 10/26/2018 13:29 Jimena Moore RN - 10/26/2018 7:31 AM PDTPt VSS, ambulating, voiding, medications for pain given, p t complaining of some stinging in incision site, will try ice. Chart check complete Jimena Platt RN 10/26/18 @7:32 Emilio Dawn PA-C - 10/25/2018 4:48 PM PDT . Patient notes that pain is well controlled at this time and has been eating and voiding wit hout issues. She is work with physical therapy and continues to be touchdown weightbearing. She denies any increased pain fevers, chills, nausea, vomiting 1. Pain in prosthetic joint, initial encounter ([facility]) 2. Mechanical complication of prosthetic knee implant, initial encounter ([facility]) 3. Mechanical instability of hip prosthesis ([facility]) Past Medical History: Diagnosis Date Anxiety Anxious depression Arthralgia Arthritis Asthma not using inhalers DDD (degenerative disc disease), lumbar Deliberate self-cutting history of Depression Heartburn Hemorrhage of gastrointestinal tract 2015 upper and lower due ulcers Morbid obesity with BMI of 50.0-59.9, adult ([facility]) Pain in prosthetic joint ([facility]) with instability Panic attacks states [...] mg 12.5 mg Intravenous Q4H PRN Miah marruof MD Or diphenhydrAMINE (BENADRYL) capsule 25 mg [...] Emilio Moreno 10/25/2018 Cassie Richter RN - 10/25/2018 4:32 AM PDTEnd of shift chart check complete. Cassie Merlos RN 10/25/2018 0433 documented in this enc ounter Plan of Treatment + + +--------+ + + | Name | Type | Priori | Associated Diagnoses | Order Schedule | | | | ty | | | + + +--------+ + + | Referral to Home | Outpatient | Routin | Pain in prosthetic | Ordered: 11/09/2018 | | Health - OUTPATIENT | Referral | e | joint, initial | | | | | | encounter ([facility]) | | | | | | Mechanical | | | | | | complication of | | | | | | prosthetic knee | | | | | | implant, initial | | | | | | encounter ([facility]) | | | | | | Mechanical | | | | | | instability of hip | | | | | | prosthesis ([facility]) | | | | | | Shortness of breath | | | | | | Morbid obesity | | | | | | ([facility]) | | + + +--------+ + + documented as of this encounter Procedures + +--------+ + + + | Procedure Name | Priori | Date/Time | Associated Diagnosis | Comments | | | ty | | | | + +--------+ + + + | CBC WITH | Routin | 11/09/2018 | | Results for this | | DIFFERENTIAL | e | 4:28 AM | | procedure are in the | | | | PDT | | results section. | + +--------+ + + + | MAGNESIUM | Routin | 11/09/2018 | | Results for this | | | e | 4:28 AM | | procedure are in the | | | | PDT | | results section. | + +--------+ + + + | BASIC METABOLIC | Routin | 11/09/2018 | | Results for this | | PANEL | e | 4:28 AM | | procedure are in the | | | | PDT | | results section. | + +--------+ + + + | CBC WITH | Routin | 11/08/2018 | | Results for this | | DIFFERENTIAL | e | 3:56 AM | | procedure are in the | | | | PDT | | results section. | + +--------+ + + + | MAGNESIUM | Routin | 11/08/2018 | | Results for this | | | e | 3:56 AM | | procedure are in the | | | | PDT | | results section. | + +--------+ + + + | BASIC METABOLIC | Routin | 11/08/2018 | | Results for this | | PANEL | e | 3:56 AM | | procedure are in the | | | | PDT | | results section. | + +--------+ + + + | PROCALCITONIN, SERUM | Routin | 11/07/2018 | | Results for this | | | e | 4:11 AM | | procedure are in the | | | | PDT | | results section. | + +--------+ + + + | CBC WITH | Routin | 11/07/2018 | | Results for this | | DIFFERENTIAL | e | 4:11 AM | | procedure are in the | | | | PDT | | results section. | + +--------+ + + + | MAGNESIUM | Routin | 11/07/2018 | | Results for this | | | e | 4:11 AM | | procedure are in the | | | | PDT | | results section. | + +--------+ + + + | BASIC METABOLIC | Routin | 11/07/2018 | | Results for this | | PANEL | e | 4:11 AM | | procedure are in the | | | | PDT | | results section. | + +--------+ + + + | CBC WITH | Routin | 11/06/2018 | | Results for this | | DIFFERENTIAL | e | 4:09 AM | | procedure are in the | | | | PDT | | results section. | + +--------+ + + + | MAGNESIUM | Routin | 11/06/2018 | | Results for this | | | e | 4:09 AM | | procedure are in the | | | | PDT | | results section. | + +--------+ + + + | BASIC METABOLIC | Routin | 11/06/2018 | | Results for this | | PANEL | e | 4:09 AM | | procedure are in the | | | | PDT | | results section. | + +--------+ + + + | CBC WITH | Routin | 11/05/2018 | | Results for this | | DIFFERENTIAL | e | 4:05 AM | | procedure are in the | | | | PDT | | results section. | + +--------+ + + + | MAGNESIUM | Routin | 11/05/2018 | | Results for this | | | e | 4:05 AM | | procedure are in the | | | | PDT | | results section. | + +--------+ + + + | BASIC METABOLIC | Routin | 11/05/2018 | | Results for this | | PANEL | e | 4:05 AM | | procedure are in the | | | | PDT | | results section. | + +--------+ + + + | CBC WITH | Routin | 11/04/2018 | | Results for this | | DIFFERENTIAL | e | 3:53 AM | | procedure are in the | | | | PDT | | results section. | + +--------+ + + + | MAGNESIUM | Routin | 11/04/2018 | | Results for this | | | e | 3:53 AM | | procedure are in the | | | | PDT | | results section. | + +--------+ + + + | BASIC METABOLIC | Routin | 11/04/2018 | | Results for this | | PANEL | e | 3:53 AM | | procedure are in the | | | | PDT | | results section. | + +--------+ + + + | CBC WITH | Routin | 11/03/2018 | | Results for this | | DIFFERENTIAL | e | 3:58 AM | | procedure are in the | | | | PDT | | results section. | + +--------+ + + + | MAGNESIUM | Routin | 11/03/2018 | | Results for this | | | e | 3:58 AM | | procedure are in the | | | | PDT | | results section. | + +--------+ + + + | BASIC METABOLIC | Routin | 11/03/2018 | | Results for this | | PANEL | e | 3:58 AM | | procedure are in the | | | | PDT | | results section. | + +--------+ + + + | CBC WITH | Routin | 11/02/2018 | | Results for this | | DIFFERENTIAL | e | 4:08 AM | | procedure are in the | | | | PDT | | results section. | + +--------+ + + + | MAGNESIUM | Routin | 11/02/2018 | | Results for this | | | e | 4:08 AM | | procedure are in the | | | | PDT | | results section. | + +--------+ + + + | BASIC METABOLIC | Routin | 11/02/2018 | | Results for this | | PANEL | e | 4:08 AM | | procedure are in the | | | | PDT | | results section. | + +--------+ + + + | ANTHONY PROFILE, REFLEX | Add-On | 11/01/2018 | | Results for this | | | | 4:17 AM | | procedure are in the | | | | PDT | | results section. | + +--------+ + + + | PROCALCITONIN, SERUM | Routin | 11/01/2018 | | Results for this | | | e | 4:17 AM | | procedure are in the | | | | PDT | | results section. | + +--------+ + + + | CBC WITH | Routin | 11/01/2018 | | Results for this | | DIFFERENTIAL | e | 4:17 AM | | procedure are in the | | | | PDT | | results section. | + +--------+ + + + | MAGNESIUM | Routin | 11/01/2018 | | Results for this | | | e | 4:17 AM | | procedure are in the | | | | PDT | | results section. | + +--------+ + + + | BASIC METABOLIC | Routin | 11/01/2018 | | Results for this | | PANEL | e | 4:17 AM | | procedure are in the | | | | PDT | | results section. | + +--------+ + + + | POTASSIUM | STAT | 10/31/2018 | | Results for this | | | | 6:15 PM | | procedure are in the | | | | PDT | | results section. | + +--------+ + + + | CBC WITH | Routin | 10/31/2018 | | Results for this | | DIFFERENTIAL | e | 4:14 AM | | procedure are in the | | | | PDT | | results section. | + +--------+ + + + | PHOSPHORUS | Routin | 10/31/2018 | | Results for this | | | e | 4:14 AM | | procedure are in the | | | | PDT | | results section. | + +--------+ + + + | MAGNESIUM | Routin | 10/31/2018 | | Results for this | | | e | 4:14 AM | | procedure are in the | | | | PDT | | results section. | + +--------+ + + + | BASIC METABOLIC | Routin | 10/31/2018 | | Results for this | | PANEL | e | 4:14 AM | | procedure are in the | | | | PDT | | results section. | + +--------+ + + + | XR CHEST AP PORTABLE | Routin | 10/30/2018 | | Results for this | | | e | 3:15 PM | | procedure are in the | | | | PDT | | results section. | + +--------+ + + + | VITAMIN D, | Routin | 10/30/2018 | | Results for this | | DEFICIENCY SCREEN | e | 4:18 AM | | procedure are in the | | (25-HYDROXY) | | PDT | | results section. | + +--------+ + + + | CBC WITH | Routin | 10/30/2018 | | Results for this | | DIFFERENTIAL | e | 4:18 AM | | procedure are in the | | | | PDT | | results section. | + +--------+ + + + | MAGNESIUM | Routin | 10/30/2018 | | Results for this | | | e | 4:18 AM | | procedure are in the | | | | PDT | | results section. | + +--------+ + + + | BASIC METABOLIC | Routin | 10/30/2018 | | Results for this | | PANEL | e | 4:18 AM | | procedure are in the | | | | PDT | | results section. | + +--------+ + + + | CULTURE, | Routin | 10/29/2018 | | Results for this | | RESPIRATORY, LOWER, | e | 5:29 PM | | procedure are in the | | SMEAR | | PDT | | results section. | + +--------+ + + + | ECHO COMPLETE | Routin | 10/29/2018 | | Results for this | | | e | 9:59 AM | | procedure are in the | | | | PDT | | results section. | + +--------+ + + + | CBC WITH | Routin | 10/29/2018 | | Results for this | | DIFFERENTIAL | e | 4:39 AM | | procedure are in the | | | | PDT | | results section. | + +--------+ + + + | MAGNESIUM | Routin | 10/29/2018 | | Results for this | | | e | 4:39 AM | | procedure are in the | | | | PDT | | results section. | + +--------+ + + + | BASIC METABOLIC | Routin | 10/29/2018 | | Results for this | | PANEL | e | 4:39 AM | | procedure are in the | | | | PDT | | results section. | + +--------+ + + + | VAS LOWER EXTREMITY | Routin | 10/28/2018 | | Results for this | | VENOUS BILATERAL | e | 10:57 AM | | procedure are in the | | | | PDT | | results section. | + +--------+ + + + | PROCALCITONIN, SERUM | STAT | 10/28/2018 | | Results for this | | | | 8:35 AM | | procedure are in the | | | | PDT | | results section. | + +--------+ + + + | CBC WITH | STAT | 10/28/2018 | | Results for this | | DIFFERENTIAL | | 8:35 AM | | procedure are in the | | | | PDT | | results section. | + +--------+ + + + | B TYPE NATRIURETIC | STAT | 10/28/2018 | | Results for this | | PEPTIDE | | 8:35 AM | | procedure are in the | | | | PDT | | results section. | + +--------+ + + + | BASIC METABOLIC | STAT | 10/28/2018 | | Results for this | | PANEL | | 8:35 AM | | procedure are in the | | | | PDT | | results section. | + +--------+ + + + | CT ANGIOGRAM | STAT | 10/27/2018 | | Results for this | | PULMONARY | | 6:21 PM | | procedure are in the | | | | PDT | | results section. | + +--------+ + + + | XR CHEST AP PORTABLE | STAT | 10/27/2018 | | Results for this | | | | 5:05 PM | | procedure are in the | | | | PDT | | results section. | + +--------+ + + + | CBC NO DIFFERENTIAL | Routin | 10/27/2018 | | Results for this | | | e | 1:23 PM | | procedure are in the | | | | PDT | | results section. | + +--------+ + + + | BASIC METABOLIC | Routin | 10/27/2018 | | Results for this | | PANEL | e | 1:23 PM | | procedure are in the | | | | PDT | | results section. | + +--------+ + + + | ECG 12 LEAD | Routin | 10/27/2018 | | Results for this | | | e | 12:37 PM | | procedure are in the | | | | PDT | | results section. | + +--------+ + + + | XR PELVIS COMPLETE 3 | JAMIL | 10/27/2018 | | Results for this | | + VW | | 11:53 AM | | procedure are in the | | | | PDT | | results section. | + +--------+ + + + | HEMOGLOBIN AND | Routin | 10/25/2018 | | Results for this | | HEMATOCRIT | e | 4:40 AM | | procedure are in the | | | | PDT | | results section. | + +--------+ + + + | XR PELVIS 1 OR 2 VW | Routin | 10/24/2018 | | Results for this | | | e | 6:47 PM | | procedure are in the | | | | PDT | | results section. | + +--------+ + + + | SURGICAL PATHOLOGY | Routin | 10/24/2018 | Pain in prosthetic | Results for this | | EXAM | e | 4:54 PM | joint, initial | procedure are in the | | | | PDT | encounter ([facility]) | results section. | | | | | Mechanical | | | | | | complication of | | | | | | prosthetic knee | | | | | | implant, initial | | | | | | encounter ([facility]) | | + +--------+ + + + | CULTURE, TISSUE, | Routin | 10/24/2018 | Pain in prosthetic | Results for this | | SMEAR, WITH | e | 4:41 PM | joint, initial | procedure are in the | | ANAEROBES | | PDT | encounter ([facility]) | results section. | | | | | Mechanical | | | | | | complication of | | | | | | prosthetic knee | | | | | | implant, initial | | | | | | encounter ([facility]) | | + +--------+ + + + | CULTURE, WOUND, | Routin | 10/24/2018 | | Results for this | | SMEAR, W/ANAEROBE | e | 4:41 PM | | procedure are in the | | | | PDT | | results section. | + +--------+ + + + | ARTHROPLASTY | | 10/24/2018 | Pain in prosthetic | | | REVISION TOTAL HIP | | 3:35 PM | joint, initial | | | | | PDT | encounter ([facility]) | | | | [...] | +---+--------+ + +--------+ +---+ + | TYPE AND SCREEN | STAT | 10/24/2018 | | Results for this | | | | 1:56 PM | | procedure are in the | | | | PDT | | results section. | + +--------+ +---+ + | POCT TEST, | Routin | 10/24/2018 | | Results for this | | URINE, QUAL | e | 1:27 PM | | procedure are in the | | | | PDT | | results section. | + +--------+ +---+ + documented in this encounter Results CBC with Differential (11/09/2018 4:28 AM PDT) + + + + + + [...] at | | | | | | [facility], [address] | | | | | | [place] | | | | | | [address] | | | | + + + + + + + + | Specimen | + + | Blood | + + + + + + + | Performing | Address | City/State/Zipcode | Phone Number | | Organization | | | | + + + + + | [facility] | [address] | [place] [address] | [phone] | + + + + + Magnesium (11/09/2018 4:28 AM PDT) + + + + + + [...] | | | | | performed at [facility], [address] | | | | | | [place], | | | | | | [place] [address] | | | | + + + + + + + + | Specimen | + + | Blood | + + + + + + + | Performing | Address | City/State/Zipcode | Phone Number | | Organization | | | | + + + + + | [facility] | [address] | [place] [address] | [phone] | + + + + + Basic Metabolic Panel (11/09/2018 4:28 AM PDT) + + + + + + [...] | >60Comment: GFR <60: | >60 | [facility] | | | GFR | CHRONIC [...] | | | | | | MDRD [facility] traceable | | | | | | equation.Testing | | | | | | performed at [facility], [address] | | | | | | [facility], | | | | | | [place] [address] | | | | + + + + + + + + | Specimen | + + | Blood | + + + + + + + | Performing | Address | City/State/Zipcode | Phone Number | | Organization | | | | + + + + + | [facility] | [address] | [place] [address] | [phone] | + + + + + CBC with Differential (11/08/2018 3:56 AM PDT) + + + + + + [...] | | | Absolute | performed at [facility], [address] | [address] | LABORATORY | | | | [place], | | | | | | [place] [address] | | | | + + + + + + + + | Specimen | + + | Blood | + + + + + + + | Performing | Address | City/State/Zipcode | Phone Number | | Organization | | | | + + + + + | [facility] | [address] | [place] [address] | [phone] | + + + + + Magnesium (11/08/2018 3:56 AM PDT) + + + + + + | Component | Value | Ref Range | Performed | Pathologist | | | | | At | Signature | + + + + + + | Magnesium | 2.7 (H)Comment: Testing | 1.7 - 2.4 mg/dL | [facility] | | | | performed at [facility], [address] | | LABORATORY | | | | [place], | | | | | | [place] [address] | | | | + + + + + + + + | Specimen | + + | Blood | + + + + + + + | Performing | Address | City/State/Zipcode | Phone Number | | Organization | | | | + + + + + | [facility] | [address] | [place] [address] | [phone] | + + + + + Basic Metabolic Panel (11/08/2018 3:56 AM PDT) + + + + + + [...] 8.1 (L) | 8.5 - 10.5 | [facility] | | | | | mg/dL | LABORATORY | | + + + + + + | Estimated | >60Comment: GFR <60: | >60 | [facility] | | | GFR | CHRONIC [...] | | | | | performed at [facility], [address] | | | | | | [facility], | | | | | | [place] [address] | | | | + + + + + + + + | Specimen | + + | Blood | + + + + + + + | Performing | Address | City/State/Zipcode | Phone Number | | Organization | | | | + + + + + | [facility] | [address] | [place] [address] | [phone] | + + + + + CBC with Differential (11/07/2018 4:11 AM PDT) + + + + + + [...] at | | | | | | [facility], [address] [place] [address] | | | | | | [place], [place] | | | | | | [address] | | | | + + + + + + + + | Specimen | + + | Blood | + + + + + + + | Performing | Address | City/State/Zipcode | Phone Number | | Organization | | | | + + + + + | [facility] | [address] | [place] [address] | [phone] | + + + + + Magnesium (11/07/2018 4:11 AM PDT) + + + + + + | Component | Value | Ref Range | Performed | Pathologist | | | | | At | Signature | + + + + + + | Magnesium | 2.5 (H)Comment: Testing | 1.7 - 2.4 mg/dL | [facility] | | | | performed at [facility], [address] | | LABORATORY | | | | [place], | | | | | | [place] [address] | | | | + + + + + + + + | Specimen | + + | Blood | + + + + + + + | Performing | Address | City/State/Zipcode | Phone Number | | Organization | | | | + + + + + | [facility] | [address] | [place] [address] | [phone] | + + + + + Basic Metabolic Panel (11/07/2018 4:11 AM PDT) + + + + + + [...] 59 (L)Comment: GFR <60: | >60 | [facility] | [...] | | | | | | MDRD IDVT traceable | | | | | | equation.Testing | | | | | | performed at [facility], [address] | | | | | | [facility], | | | | | | [place] [address] | | | | + + + + + + + + | Specimen | + + | Blood | + + + + + + + | Performing | Address | City/State/Zipcode | Phone Number | | Organization | | | | + + + + + | [facility] | [address] | [place] [address] | [phone] | + + + + + Procalcitonin (11/07/2018 4:11 AM PDT) + + + + + + | Component | Value | Ref Range | Performed | Pathologist | | | | | At | Signature | + + + + + + | PROCALCITON | 0.10Comment: | <0.5 ng/mL | [facility] | | | IN | INTERPRETIVE | | LABORATORY | | | | INFORMATION: | | | | | | PROCALCITONIN PCT <= | | | | | | 0.5 ng/mL: Low risk | | | | | | for progression to | | | | | | severe systemic | | | | | | bacterial infection | | | | | | (severe sepsis/septic | | | | | | shock). Does not | | | | | | exclude an infection, | | | | | | because localized | | | | | | infections may be | | | | | | associated with such low | | | | | | levels. If PCT is | | | | | | measured very early | | | | | | after bacterial | | | | | | challenge (usually <6 | | | | | | hours), results may | | | | | | still be low and | | | | | | should re-assess PCT | | | | | | 6-24 hours later. PCT | | | | | | >0.5 and <= 2 ng/mL: | | | | | | Moderate risk for | | | | | | progression to severe | | | | | | systemic infection | | | | | | (severe sepsis/septic | | | | | | shock). Other | | | | | | conditions are known | | | | | | to elevate PCT, patient | | | | | | should be closely | | | | | | monitored both | | | | | | clinically and by | | | | | | re-assessing PCT | | | | | | within 6-24 hours. PCT > | | | | | | 2 ng/mL: High | | | | | | likelihood for | | | | | | progression to severe | | | | | | systemic bacterial | | | | | | infection (severe | | | | | | sepsis/septic shock). | | | | | | PCT >= 10 ng/mL: | | | | | | High likelihood of | | | | | | severe sepsis or septic | | | | | | shock.Testing performed | | | | | | at [facility];[address];[place] [address] | | | | + + + + + + + + | Specimen | + + | Blood | + + + + + + + | Performing | Address | City/State/Zipcode | Phone Number | | Organization | | | | + + + + + | [facility] | [address] | [place] [address] | [phone] | + + + + + CBC with Differential (11/06/2018 4:09 AM PDT) + + + + + + [...] at | | | | | | [facility], [address] [place] [address] | | | | | | [place], [place] | | | | | | [address] | | | | + + + + + + + + | Specimen | + + | Blood | + + + + + + + | Performing | Address | City/State/Zipcode | Phone Number | | Organization | | | | + + + + + | [facility] | [address] | [place] [address] | [phone] | + + + + + Magnesium (11/06/2018 4:09 AM PDT) + + + + + + | Component | Value | Ref Range | Performed | Pathologist | | | | | At | Signature | + + + + + + | Magnesium | 2.7 (H)Comment: Testing | 1.7 - 2.4 mg/dL | [facility] | | | | performed at [facility], [address] | | LABORATORY | | | | [place], | | | | | | [place] [address] | | | | + + + + + + + + | Specimen | + + | Blood | + + + + + + + | Performing | Address | City/State/Zipcode | Phone Number | | Organization | | | | + + + + + | [facility] | [address] | [place] [address] | [phone] | + + + + + Basic Metabolic Panel (11/06/2018 4:09 AM PDT) + + + + + + [...] | 8.8 | 8.5 - 10.5 | [facility] | | | | | mg/dL | LABORATORY | | + + + + + + | Estimated | >60Comment: GFR <60: | >60 | [facility] | | | GFR | CHRONIC [...] | | | | | | MDRD [facility] traceable | | | | | | equation.Testing | | | | | | performed at [facility], [address] | | | | | | [facility], | | | | | | [place] [address] | | | | + + + + + + + + | Specimen | + + | Blood | + + + + + + + | Performing | Address | City/State/Zipcode | Phone Number | | Organization | | | | + + + + + | [facility] | [address] | [place] [address] | [phone] | + + + + + CBC with Differential (11/05/2018 4:05 AM PDT) + + + + + + [...] at | | | | | | [facility], [address] | | | | | | [place] | | | | | | [address] | | | | + + + + + + + + | Specimen | + + | Blood | + + + + + + + | Performing | Address | City/State/Zipcode | Phone Number | | Organization | | | | + + + + + | [facility] | [address] | [place] [address] | [phone] | + + + + + Magnesium (11/05/2018 4:05 AM PDT) + + + + + + | Component | Value | Ref Range | Performed | Pathologist | | | | | At | Signature | + + + + + + | Magnesium | 2.6 (H)Comment: Testing | 1.7 - 2.4 mg/dL | [facility] | | | | performed at [facility], [address] | | LABORATORY | | | | [place], | | | | | | [place] [address] | | | | + + + + + + + + | Specimen | + + | Blood | + + + + + + + | Performing | Address | City/State/Zipcode | Phone Number | | Organization | | | | + + + + + | [facility] | [address] | [place] [address] | [phone] | + + + + + Basic Metabolic Panel (11/05/2018 4:05 AM PDT) + + + + + + [...] | | | | | performed at [facility], [address] | | | | | | [facility], | | | | | | [place] [address] | | | | + + + + + + + + | Specimen | + + | Blood | + + + + + + + | Performing | Address | City/State/Zipcode | Phone Number | | Organization | | | | + + + + + | [facility] | [address] | [place] [address] | [phone] | + + + + + CBC with Differential (11/04/2018 3:53 AM PDT) + + + + + + [...] | RBC AND PLT MORPHOLOGY | | [facility] | | | Morphology | APPEAR NORMALComment: | | LABORATORY | | | | Testing performed at | | | | | | [facility], [address] [facility] [address] [facility] | | | | | | [place] | | | | | | [address] | | | | + + + + + + + + | Specimen | + + | Blood | + + + + + + + | Performing | Address | City/State/Zipcode | Phone Number | | Organization | | | | + + + + + | [facility] | [address] | [place] [address] | [phone] | + + + + + Magnesium (11/04/2018 3:53 AM PDT) + + + + + + | Component | Value | Ref Range | Performed | Pathologist | | | | | At | Signature | + + + + + + | Magnesium | 2.7 (H)Comment: Testing | 1.7 - 2.4 mg/dL | [facility] | | | | performed at [facility], [address] | | LABORATORY | | | | [place], | | | | | | [place] [address] | | | | + + + + + + + + | Specimen | + + | Blood | + + + + + + + | Performing | Address | City/State/Zipcode | Phone Number | | Organization | | | | + + + + + | [facility] | [address] | [place] [address] | [phone] | + + + + + Basic Metabolic Panel (11/04/2018 3:53 AM PDT) + + + + + + [...] | | | | | | MDRD IDVT traceable | | | | | | equation.Testing | | | | | | performed at [facility], [address] | | | | | | [facility], | | | | | | [place] [address] | | | | + + + + + + + + | Specimen | + + | Blood | + + + + + + + | Performing | Address | City/State/Zipcode | Phone Number | | Organization | | | | + + + + + | [facility] | [address] | [place] [address] | [phone] | + + + + + CBC with Differential (11/03/2018 3:58 AM PDT) + + + + + + [...] | | | | | performed at [facility], [address] | | | | | | [place], | | | | | | [place] [address] | | | | + + + + + + + + | Specimen | + + | Blood | + + + + + + + | Performing | Address | City/State/Zipcode | Phone Number | | Organization | | | | + + + + + | [facility] | [address] | [place] [address] | [phone] | + + + + + Magnesium (11/03/2018 3:58 AM PDT) + + + + + + | Component | Value | Ref Range | Performed | Pathologist | | | | | At | Signature | + + + + + + | Magnesium | 2.7 (H)Comment: Testing | 1.7 - 2.4 mg/dL | [facility] | | | | performed at [facility], [address] | | LABORATORY | | | | [place], | | | | | | [place] [address] | | | | + + + + + + + + | Specimen | + + | Blood | + + + + + + + | Performing | Address | City/State/Zipcode | Phone Number | | Organization | | | | + + + + + | [facility] | [address] | [place] [address] | [phone] | + + + + + Basic Metabolic Panel (11/03/2018 3:58 AM PDT) + + + + + + [...] 8.1 (L) | 8.5 - 10.5 | [facility] | | | | | mg/dL | LABORATORY | | + + + + + + | Estimated | >60Comment: GFR <60: | >60 | [facility] | | | GFR | CHRONIC [...] | | | | | performed at [facility], [address] | | | | | | [facility], | | | | | | [place] [address] | | | | + + + + + + + + | Specimen | + + | Blood | + + + + + + + | Performing | Address | City/State/Zipcode | Phone Number | | Organization | | | | + + + + + | [facility] | [address] | [place] [address] | [phone] | + + + + + CBC with Differential (11/02/2018 4:08 AM PDT) + + + + + + [...] at | | | | | | [facility], [address] [facility] | | | | | | [place] | | | | | | [address] | | | | + + + + + + + + | Specimen | + + | Blood | + + + + + + + | Performing | Address | City/State/Zipcode | Phone Number | | Organization | | | | + + + + + | [facility] | [address] | [place] [address] | [phone] | + + + + + Magnesium (11/02/2018 4:08 AM PDT) + + + + + + | Component | Value | Ref Range | Performed | Pathologist | | | | | At | Signature | + + + + + + | Magnesium | 2.8 (H)Comment: Testing | 1.7 - 2.4 mg/dL | [facility] | | | | performed at [facility], [address] | | LABORATORY | | | | [place], | | | | | | [place] [address] | | | | + + + + + + + + | Specimen | + + | Blood | + + + + + + + | Performing | Address | City/State/Zipcode | Phone Number | | Organization | | | | + + + + + | [facility] | [address] | [place] [address] | [phone] | + + + + + Basic Metabolic Panel (11/02/2018 4:08 AM PDT) + + + + + + [...] | >60Comment: GFR <60: | >60 | [facility] | | | GFR | CHRONIC [...] | | | | | performed at [facility], [address] | | | | | | [facility], | | | | | | [place] [address] | | | | + + + + + + + + | Specimen | + + | Blood | + + + + + + + | Performing | Address | City/State/Zipcode | Phone Number | | Organization | | | | + + + + + | [facility] | [address] | [place] [address] | [phone] | + + + + + CBC with Differential (11/01/2018 4:17 AM PDT) + + + + + + [...] at | | | | | | [facility], [address] | | | | | | [place] | | | | | | [address] | | | | + + + + + + + + | Specimen | + + | Blood | + + + + + + + | Performing | Address | City/State/Zipcode | Phone Number | | Organization | | | | + + + + + | [facility] | [address] | [place] [address] | [phone] | + + + + + Magnesium (11/01/2018 4:17 AM PDT) + + + + + + | Component | Value | Ref Range | Performed | Pathologist | | | | | At | Signature | + + + + + + | Magnesium | 2.7 (H)Comment: Testing | 1.7 - 2.4 mg/dL | [facility] | | | | performed at [facility], [address] | | LABORATORY | | | | [place], | | | | | | [place] [address] | | | | + + + + + + + + | Specimen | + + | Blood | + + + + + + + | Performing | Address | City/State/Zipcode | Phone Number | | Organization | | | | + + + + + | [facility] | [address] | [place] [address] | [phone] | + + + + + Basic Metabolic Panel (11/01/2018 4:17 AM PDT) + + + + + + [...] | | | | | performed at [facility], [address] | | | | | | [facility], | | | | | | [place] [address] | | | | + + + + + + + + | Specimen | + + | Blood | + + + + + + + | Performing | Address | City/State/Zipcode | Phone Number | | Organization | | | | + + + + + | [facility] | [address] | [place] [address] | [phone] | + + + + + ANTHONY Amor, Reflex (11/01/2018 4:17 AM PDT) + + + + + + | Component | Value | Ref Range | Performed | Pathologist | | | | | At | Signature | + + + + + + | ANTHONY Screen, | NegativeComment: Testing | Negative | [facility] | | | Qual | performed at [facility] | | LABORATORY | | | | [place] | | | | | | [place] [address] | | | | + + + + + + | C ANCA | <1:20 | Neg:<1:20 titer | [facility] | | | | | [...] | | | | | ANCA IFA results. | | | | | | [employer] ANCA | | | | | | Group Consensus | | | | | | recommends follow up | | | | | | testing ofpositive sera | | | | | | with both AR-3 and | | | | | | MPO-ANCA enzyme | | | | | | immunoassays. [facility] | | | | | | 5% serum samples are | | | | | | positive only by | | | | | | EIA.Ref. AM J Clin | | | | | | Pathol 1999;111:507-513. | | | | | | | [...] Testing | 0.0 - 3.5 U/mL | [facility] | | | 3 Antibody | performed by [facility], | | LABORATORY | | | | [address], | | | | | | [place] [address] | | | | + + + + + + + + | Specimen | + + | Blood | + + + + + + + | Performing | Address | City/State/Zipcode | Phone Number | | Organization | | | | + + + + + | [facility] | [address] | [place] [address] | [phone] | + + + + + Procalcitonin (11/01/2018 4:17 AM PDT) + + + + + + | Component | Value | Ref Range | Performed | Pathologist | | | | | At | Signature | + + + + + + | PROCALCITON | 1.18 (H)Comment: | <0.5 ng/mL | [facility] | | | IN | INTERPRETIVE | | LABORATORY | | | | INFORMATION: | | | | | | PROCALCITONIN PCT <= | | | | | | 0.5 ng/mL: Low risk | | | | | | for progression to | | | | | | severe systemic | | | | | | bacterial infection | | | | | | (severe sepsis/septic | | | | | | shock). Does not | | | | | | exclude an infection, | | | | | | because localized | | | | | | infections may be | | | | | | associated with such low | | | | | | levels. If PCT is | | | | | | measured very early | | | | | | after bacterial | | | | | | challenge (usually <6 | | | | | | hours), results may | | | | | | still be low and | | | | | | should re-assess PCT | | | | | | 6-24 hours later. PCT | | | | | | >0.5 and <= 2 ng/mL: | | | | | | Moderate risk for | | | | | | progression to severe | | | | | | systemic infection | | | | | | (severe sepsis/septic | | | | | | shock). Other | | | | | | conditions are known | | | | | | to elevate PCT, patient | | | | | | should be closely | | | | | | monitored both | | | | | | clinically and by | | | | | | re-assessing PCT | | | | | | within 6-24 hours. PCT > | | | | | | 2 ng/mL: High | | | | | | likelihood for | | | | | | progression to severe | | | | | | systemic bacterial | | | | | | infection (severe | | | | | | sepsis/septic shock). | | | | | | PCT >= 10 ng/mL: | | | | | | High likelihood of | | | | | | severe sepsis or septic | | | | | | shock.Testing performed | | | | | | at [facility];[address] [facility] [address] | | | | | | [place] [address] | | | | + + + + + + + + | Specimen | + + | Blood | + + + + + + + | Performing | Address | City/State/Zipcode | Phone Number | | Organization | | | | + + + + + | [facility] | [address] | [place] [address] | [phone] | + + + + + Potassium (10/31/2018 6:15 PM PDT) + + + + + + | Component | Value | Ref Range | Performed | Pathologist | | | | | At | Signature | + + + + + + | K | 3.8Comment: Testing | 3.5 - 4.9 | [facility] | | | | performed at [facility];[address] | mmol/L | LABORATORY | | | | [address];[place] | | | | | | [address] | | | | + + + + + + + + | Specimen | + + | Blood | + + + + + + + | Performing | Address | City/State/Zipcode | Phone Number | | Organization | | | | + + + + + | [facility] | [address] | [place] [address] | [phone] | + + + + + CBC with Differential (10/31/2018 4:14 AM PDT) + + + + + + [...] | RBC | 1+Comment: MACRONORMAL | | [facility] | | | Morphology | PLT MORPHTesting | | LABORATORY | | | | performed at [facility], [address] | | | | | | [place] [place], | | | | | | [place] [address] | | | | | | | | | | + + + + + + + + | Specimen | + + | Blood | + + + + + + + | Performing | Address | City/State/Zipcode | Phone Number | | Organization | | | | + + + + + | [facility] | [address] | [place] [address] | [phone] | + + + + + Magnesium (10/31/2018 4:14 AM PDT) + + + + + + | Component | Value | Ref Range | Performed | Pathologist | | | | | At | Signature | + + + + + + | Magnesium | 2.3Comment: Testing | 1.7 - 2.4 mg/dL | [facility] | | | | performed at [facility], [address] | | LABORATORY | | | | [place] [place], | | | | | | [place] [address] | | | | + + + + + + + + | Specimen | + + | Blood | + + + + + + + | Performing | Address | City/State/Zipcode | Phone Number | | Organization | | | | + + + + + | [facility] | [address] | [place] [address] | [phone] | + + + + + Basic Metabolic Panel (10/31/2018 4:14 AM PDT) + + + + + + [...] | | | | | performed at [facility], [address] | | | | | | [address] [place], | | | | | | [place] [address] | | | | + + + + + + + + | Specimen | + + | Blood | + + + + + + + | Performing | Address | City/State/Zipcode | Phone Number | | Organization | | | | + + + + + | [facility] | [address] | [place] [address] | [phone] | + + + + + Phosphorus (10/31/2018 4:14 AM PDT) + + + + + + | Component | Value | Ref Range | Performed | Pathologist | | | | | At | Signature | + + + + + + | Phosphorus | 3.4Comment: Testing | 2.3 - 4.8 mg/dL | [facility] | | | | performed at [facility], [address] | | LABORATORY | | | | [address], | | | | | | [place] [address] | | | | + + + + + + + + | Specimen | + + | Blood | + + + + + + + | Performing | Address | City/State/Zipcode | Phone Number | | Organization | | | | + + + + + | [facility] | [address] | [place] [address] | [phone] | + + + + + XR Chest AP Portable (10/30/2018 3:15 PM PDT) + + | Specimen | [...] present. Bilateral patchy opacities are | | | seen throughout the lung bilaterally. [...] | Robin, Rad Results In - 10/30/2018 4:58 PM PDT | | CHEST PORTABLE ONE VIEW [...] + + CBC with Differential (10/30/2018 4:18 AM PDT) + + + + + + [...] LABORATORY | | | | performed at [facility], [address] | | | | | | [address], | | | | | | [place] [address] | | | | | | | | | | + + + + + + + + | Specimen | + + | Blood | + + + + + + + | Performing | Address | City/State/Zipcode | Phone Number | | Organization | | | | + + + + + | [facility] | [address] | [place] [address] | [phone] | + + + + + Magnesium (10/30/2018 4:18 AM PDT) + + + + + + | Component | Value | Ref Range | Performed | Pathologist | | | | | At | Signature | + + + + + + | Magnesium | 2.3Comment: Testing | 1.7 - 2.4 mg/dL | [facility] | | | | performed at [facility], [address] | | LABORATORY | | | | [address], | | | | | | [place] [address] | | | | + + + + + + + + | Specimen | + + | Blood | + + + + + + + | Performing | Address | City/State/Zipcode | Phone Number | | Organization | | | | + + + + + | [facility] | [address] | [place] [address] | [phone] | + + + + + Basic Metabolic Panel (10/30/2018 4:18 AM PDT) + + + + + + [...] | | | | | performed at [facility], [address] | | | | | | [facility], | | | | | | [place] [address] | | | | + + + + + + + + | Specimen | + + | Blood | + + + + + + + | Performing | Address | City/State/Zipcode | Phone Number | | Organization | | | | + + + + + | [facility] | [address] | [place] [address] | [phone] | + + + + + Vitamin D, Deficiency Screen (25-Hydroxy) (10/30/2018 4:18 AM PDT) + + + + + + | Component | Value | Ref Range | Performed | Pathologist | | | | | At | Signature | + + + + + + | Vit D, | <12 (L)Comment: <20 | 30 - 150 ng/mL | [facility] | | | 25-Hydroxy | ng/mL Suggests | | LABORATORY | | | | deficiency of 25-OH | | | | | | Vitamin D.20-29 ng/mL | | | | | | Suggests a relative | | | | | | insufficiency of 25-OH | | | | | | Vitamin D.30-150 ng/mL | | | | | | Suggests a sufficient | | | | | | level of 25-OH Vitamin | | | | | | D.>150 ng/mL Toxic | | | | | | level of 25-OH Vitamin | | | | | | D.Blood levels of 25 | | | | | | Hydroxy Vitamin D vary | | | | | | with the extent of sun | | | | | | exposure.Values tend to | | | | | | be highest in late | | | [...] | | | | | performed at [facility], [address] | | | | | | [address], | | | | | | [place] [address] | | | | + + + + + + + + | Specimen | + + | Blood | + + + + + + + | Performing | Address | City/State/Zipcode | Phone Number | | Organization | | | | + + + + + | [facility] | [address] | [place] [address] | [phone] | + + + + + Culture, Respiratory, Lower, Smear (10/29/2018 5:29 PM PDT) + + + + + + [...] RESULT | Testing performed at | | [facility] | | | | [facility], [address] [facility] | | LABORATORY | | | | [place], [place], [place] | | | | | | [address]: Testing | | | | | | performed at [facility], [address] | | | | | | [facility], | | | | | | [place] [address] | | | | + + + + + + + + | Specimen | + + | Body Fluid - Coughed | | sputum specimen | | (specimen) | + + + + + + + | Performing | Address | City/State/Zipcode | Phone Number | | Organization | | | | + + + + + | [facility] | [address] | [place] [address] | [phone] | + + + + + ECHO Complete (10/29/2018 9:59 AM PDT) + +--------+ + + + | [...] + +---------+ + + Magnesium (10/29/2018 4:39 AM PDT) + + + + + + | Component | Value | Ref Range | Performed | Pathologist | | | | | At | Signature | + + + + + + | Magnesium | 2.1Comment: Testing | 1.7 - 2.4 mg/dL | [facility] | | | | performed at [facility], [address] | | LABORATORY | | | | [address], | | | | | | [place] [address] | | | | + + + + + + + + | Specimen | + + | Blood | + + + + + + + | Performing | Address | City/State/Zipcode | Phone Number | | Organization | | | | + + + + + | [facility] | [address] | [place] [address] | [phone] | + + + + + Basic Metabolic Panel (10/29/2018 4:39 AM PDT) + + + + + + [...] | | | | | performed at [facility], [address] | | | | | | [address], | | | | | | [place] [address] | | | | + + + + + + + + | Specimen | + + | Blood | + + + + + + + | Performing | Address | City/State/Zipcode | Phone Number | | Organization | | | | + + + + + | [facility] | [address] [facility] | [place] [address] | [phone] | + + + + + CBC with Differential (10/29/2018 4:39 AM PDT) + + + + + + [...] at | | | | | | [facility], [address] [facility] | | | | | | [place] | | | | | | [address] | | | | + + + + + + + + | Specimen | + + | Blood | + + + + + + + | Performing | Address | City/State/Zipcode | Phone Number | | Organization | | | | + + + + + | [facility] | [address] | [place] [address] | [phone] | + + + + + VAS Lower Extremity Venous Bilateral (10/28/2018 10:57 AM PDT) + + | Specimen | + [...] | Robin, Rad Results In - 10/28/2018 1:24 PM PDT | | VENOUS BILATERAL FOR DVT [...] + + | Performing | Address | City[facility] | Phone Number | | Organization | | | | + +---------+ + + | [facility] | | | | + +---------+ + + Procalcitonin (10/28/2018 8:35 AM PDT) + + + + + + | Component | Value | Ref Range | Performed | Pathologist | | | | | At | Signature | + + + + + + | PROCALCITON | 1.59 (H)Comment: | <0.5 ng/mL | [facility] | | | IN | INTERPRETIVE | | LABORATORY | | | | INFORMATION: | | | | | | PROCALCITONIN PCT <= | | | | | | 0.5 ng/mL: Low risk | | | | | | for progression to | | | | | | severe systemic | | | | | | bacterial infection | | | | | | (severe sepsis/septic | | | | | | shock). Does not | | | | | | exclude an infection, | | | | | | because localized | | | | | | infections may be | | | | | | associated with such low | | | | | | levels. If PCT is | | | | | | measured very early | | | | | | after bacterial | | | | | | challenge (usually <6 | | | | | | hours), results may | | | | | | still be low and | | | | | | should re-assess PCT | | | | | | 6-24 hours later. PCT | | | | | | >0.5 and <= 2 ng/mL: | | | | | | Moderate risk for | | | | | | progression to severe | | | | | | systemic infection | | | | | | (severe sepsis/septic | | | | | | shock). Other | | | | | | conditions are known | | | | | | to elevate PCT, patient | | | | | | should be closely | | | | | | monitored both | | | | | | clinically and by | | | | | | re-assessing PCT | | | | | | within 6-24 hours. PCT > | | | | | | 2 ng/mL: High | | | | | | likelihood for | | | | | | progression to severe | | | | | | systemic bacterial | | | | | | infection (severe | | | | | | sepsis/septic shock). | | | | | | PCT >= 10 ng/mL: | | | | | | High likelihood of | | | | | | severe sepsis or septic | | | | | | shock.Testing performed | | | | | | at [facility];[address] | | | | | | [address];[place] [address] | | | | + + + + + + + + | Specimen | + + | Blood | + + + + + + + | Performing | Address | City/State/Zipcode | Phone Number | | Organization | | | | + + + + + | [facility] | [address] | [place] [address] | [phone] | + + + + + B Type Natriuretic Peptide (10/28/2018 8:35 AM PDT) + + + + + + | Component | Value | Ref Range | Performed | Pathologist | | | | | At | Signature | + + + + + + | BNP | 101.07 (H)Comment: | 0 - 100 pg/mL | [facility] | | | | Testing performed at | | LABORATORY | | | | [facility];[address] [facility] | | | | | | [address];[place] [address] | | | | + + + + + + + + | Specimen | + + | Blood | + + + + + + + | Performing | Address | City/State/Zipcode | Phone Number | | Organization | | | | + + + + + | [facility] | [address] | [place] [address] | [phone] | + + + + + Basic Metabolic Panel (10/28/2018 8:35 AM PDT) + + + + + + [...] | >60Comment: GFR <60: | >60 | [facility] | | | GFR | CHRONIC [...] | | | | | | MDRD IDVT traceable | | | | | | equation.Testing | | | | | | performed at [facility];[address] | | | | | | [facility];[place], [place] | | | | | | [address] | | | | + + + + + + + + | Specimen | + + | Blood | + + + + + + + | Performing | Address | City/State/Zipcode | Phone Number | | Organization | | | | + + + + + | [facility] | [address] | [place] [address] | [phone] | + + + + + CBC with Differential (10/28/2018 8:35 AM PDT) + + + + + + [...] Comment | SLIDE SCANNED, AGREES | | OMAR | | | | WITH AUTOMATED | | LABORATORY | | | | RESULTS.Comment: Testing | | | | | | performed at [facility];[address] | [address];[place] | | | | | | [address] | | | | + + + + + + + + | Specimen | + + | Blood | + + + + + + + | Performing | Address | City/State/Zipcode | Phone Number | | Organization | | | | + + + + + | [facility] [facility] | [address] | [place] [address] | [phone] | + + + + + CT Angiogram Pulmonary w Contrast (10/27/2018 6:21 PM PDT) + + | Specimen | [...] seen Mediastinum: No cardiomegaly or pericardial effusion. | | | Aorta does not appear aneurysmal. Lymph Nodes: There are no | | | enlarged lymph nodes seen. Upper Abdomen: No significant abnormality | | | appreciated. BODY WALL Soft Tissues: No signal abnormality | | | appreciated. Bones: No acute or destructive osseous process seen. | | | IMPRESSION: Diminished sensitivity. No gross evidence of a main | | | pulmonary artery embolus seen. Lobar and segmental pulmonary | | | arteries are not well assessed. If further imaging is warranted, | | | consider correlation with V/Q scan. Bilateral pulmonary opacities, | | | either pneumonia or edema. Follow-up to resolution is recommended | | | to exclude the possibility of a neoplastic process. Signed | | | by: Korina Dnoovan, Gilles Sign Date/Time: 10/27/2018 6:46 PM | | + + + + + | Procedure Note | + + | Robin, Rad Results In - 10/27/2018 6:50 PM PDT | | CT ANGIOGRAM PULMONARY | [...] Donovan, Gilles | | Sign Date/Time: 10/27/2018 6:46 PM | + + + +---------+ + + | Performing | Address | City/State/Zipcode | Phone Number | | Organization | | | | + +---------+ + + | [facility] | | | | + +---------+ + + XR Chest AP Portable (10/27/2018 5:05 PM PDT) + + | Specimen | [...] | Robin, Rad Results In - 10/27/2018 5:20 PM PDT | | CHEST PORTABLE ONE VIEW [...] +---------+ + + Basic Metabolic Panel (10/27/2018 1:23 PM PDT) + + + + + + [...] | >60Comment: GFR <60: | >60 | [facility] | | | GFR | CHRONIC [...] | | | | | performed at [facility];[address] | | | | | | [facility];[place], [place] | | | | | | [address] | | | | + + + + + + + + | Specimen | + + | Blood | + + + + + + + | Performing | Address | City/State/Zipcode | Phone Number | | Organization | | | | + + + + + | [facility] | [address] | [place] [address] | [phone] | + + + + + CBC no Differential (10/27/2018 1:23 PM PDT) + + + + + + [...] [facility] | | | | performed at [facility], [address] | | LABORATORY | | | | [address], | | | | | | [place] [address] | | | | + + + + + + + + | Specimen | + + | Blood | + + + + + + + | Performing | Address | City/State/Zipcode | Phone Number | | Organization | | | | + + + + + | [facility] | [address] | [place] [address] | [phone] | + + + + + ECG 12 lead (10/27/2018 12:37 PM PDT) + + + + + + [...] Pelvis Complete 3 + Vw (10/27/2018 11:53 AM PDT) + + | Specimen | + [...] | Robin, Rad Results In - 10/27/2018 12:00 PM PDT | | PELVIS COMPLETE MINIMUM THREE [...] + + Hemoglobin and Hematocrit (10/25/2018 4:40 AM PDT) + + + + + + [...] [facility] | | | | performed at [facility], [address] | | LABORATORY | | | | [address], | | | | | | [place] [address] | | | | + + + + + + + + | Specimen | + + | Blood | + + + + + + + | Performing | Address | City/State/Zipcode | Phone Number | | Organization | | | | + + + + + | [facility] | [address] | [place] [address] | [phone] | + + + + + XR Pelvis 1 or 2 Vw (10/24/2018 6:47 PM PDT) + + | Specimen | [...] total hip prostheses. 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 Femoral head prosthesis is well seated | | | within the acetabular component. No displaced fracture fragments. | | | IMPRESSION: Revised left hip prosthesis is well seated within the | | | acetabular component. No unexpected postoperative findings. | | | Dictated by: Korina Gabriel George Signed by: Korina Machado Michael | | | Sign Date/Time: 10/24/2018 8:54 PM The radiologist has reviewed | | | the images and edited/approved the report. For interventional | | | procedures, the signing radiologist was present for the choi portions | | | of the exam. | | + + + + + | Procedure Note | + + | Robin, Rad Results In - 10/24/2018 8:57 PM PDT | | PELVIS ONE VIEW | [...] +---------+ + + Surgical Pathology Exam (10/24/2018 4:54 PM PDT) + + | Specimen | + + | Tissue - Entire left | | hip region (body | | structure) | + + + + + | Narrative | Performed At | + + + | SPECIMEN(S): A | [facility] | | LEFT HIP SYNOVIUM SPECIMEN SOURCE:A. LEFT HIP SYNOVIUM CLINICAL | INCYTE | | HISTORY:T84.84XA (pain in prosthetic joint, initial encounter), | | | T84.098A, Z96.659 (mechanical complication of prosthetic knee implant, | | | initial encounter). FINAL PATHOLOGIC DIAGNOSIS:Synovium, left hip: | | | - Thickened, fibrotic synovium with abundant black pigment | | | (please correlate clinically) - Negative for inflammation | | | - Adjacent fibroadipose tissue also present and without | | | abnormality MICROSCOPIC EXAMINATION:Histologic sections of all | | | submitted blocks are examined by light microscopy. These findings, | | | together with the gross examination, support the pathologic diagnosis. | | | GROSS DESCRIPTION:The specimen, labeled "EP, left hip synovium," is | | | received in formalin and consists of irregular shaped pink-red, | | | fibromembranous, soft tissue fragments that measure 4.5 x 1.8 x 1.0 | | | cm. Sectioningthrough the specimen is unremarkable. No | | | abnormalities are grossly identified. Oyster Sorter sections are | | | submitted in [...] interpretation was | | | performed by [employer], [facility], [facility] | | | [place], [place] (Nurse Informatics Educator: Víctor Livingston M.D.; | | | CLIA#: [id number]).The technical component was performed by [facility] | | | [facility], [address] [place] [address] (Nurse Informatics Educator: | | | Nadiya Sharma MD; CLIA# [id number]). Diagnostician: Víctor Livingston | | | MDPathologistElectronically [...] + + Culture, Wound, Smear, w/Anaerobe (10/24/2018 4:41 PM PDT) + + + + + + [...] | | LABORATORY | | | | [place] [address] | | | | + + + [...] RESULT | Testing performed at | | [facility] | | | | [facility], [address] | | LABORATORY | | | | [place] | | | | | | [id number]: Testing | | | | | | performed at [facility], [address] | | | | | [address], [place] | | | | | | [address] | | | | + + + + + + + + | Specimen | + + | | + + + + + + + | Performing | Address | City/State/Zipcode | Phone Number | | Organization | | | | + + + + + | [facility] | [address] | [place] [address] | [phone] | + + + + + Culture, Tissue, Smear, with Anaerobes (10/24/2018 4:41 PM PDT) + + + + + + [...] RESULT | Testing performed at | | [facility] | | | | [facility], [address] | | LABORATORY | | | | [place] | | | | | | [id number]: Testing | | | | | | performed at [facility], [address] | | | | | | [address], | | | | | | [place] [address] | | | | + + + + + + + + | Specimen | + + | Tissue - Hip joint | | synovium (body | | structure) | + + + + + + + | Performing | Address | City/State/Zipcode | Phone Number | | Organization | | | | + + + + + | [facility] | [address] | [place] [address] | [phone] | + + + + + Type and Screen (10/24/2018 1:56 PM PDT) + + + + + + [...] + + + | [facility] | [id number] | | [facility] | | | | | | LABORATORY | | + + + + + + | [facility] | Testing performed at | | [facility] | | | | [facility];[address] | LABORATORY | | | | [address];[place] [address] | | | | + + + + + + + + | Specimen | + + | Blood | + + + + + + + | Performing | Address | City/State/Zipcode | Phone Number | | Organization | | | | + + + + + | [facility] | [address] | [place] [address] | [phone] | + + + + + POCT Test, Urine, Qual (10/24/2018 1:27 PM PDT) + + + + + + | Component | Value | Ref Range | Performed | Pathologist | | | | | At | Signature | + + + + + + | HCG, | NEGATIVEComment: Testing | NEG | [facility] | | | Quantitativ | performed at [facility];[address] | | LABORATORY | | | [address] | [address];[place] | | | | | | [address] | | | | + + + + + + + + | Specimen | + + | | + + + + + + + | Performing | Address | City/State/Zipcode | Phone Number | | Organization | | | | + + + + + | [facility] | [address] | [place] [address] | [phone] | + + + + + documented in this encounter Visit Diagnoses + + | Diagnosis | + + | Pain in prosthetic joint, initial encounter (HCC) | + + | Mechanical complication of prosthetic knee implant, initial encounter (HCC) | + + documented in this encounter Administered Medications + +--------+ +--------+------+------+ | Medication Order | MAR | Action | Dose | Rate | Site | | | Action | Date | | | | + +--------+ +--------+------+------+ | acetaminophen (TYLENOL) tablet | Given | 11/01/19 | 650 mg | | | | 650 mg 650 mg, Oral, EVERY 6 | | 19 2:38 | | | | | HOURS PRN, Fever, Starting Tue | | PM PDT | | | | | 10/31/18 at 0815 | | | | | | + +--------+ +--------+------+------+ +---+---+ | | | +---+---+ + +-------+ +---------+---+---+ | albuterol 90 mcg/puff inhaler 2 | Given | 11/02/19 | 2 puffs | | | | puff 2 puff, Inhalation, RT | | 19 4:19 | | | | | EVERY 4 HOURS PRN, Shortness of | | PM PDT | | | | | Breath, Starting 10/25/18 at | | | | | | | 0414, Shake well. Use with | | | | | | | spacer., | | | | | | + +-------+ +---------+---+---+ +-------+ +---------+---+---+ | Given | 10/28/19 | 2 puffs | | | | | 19 5:28 | | | | | | AM PDT | | | | +-------+ +---------+---+---+ | Given | 10/26/19 | 2 puffs | | | | | 19 10:53 | | | | | | AM PDT | | | | +-------+ +---------+---+---+ +---+---+ | | | +---+---+ + +-------+ +-------+---+---+ | albuterol-ipratropium 2.5-0.5 | Given | 11/10/19 | 3 mLs | | | | mg/3 mL nebulizer solution 3 mL | | 19 3:13 | | | | | 3 mL, Nebulization, EVERY 4 HOURS | | PM PDT | | | | | WHILE AWAKE, First dose (after | | | | | | | last modification) on 10/28/18 | | | | | | | at 1100 | | | | | | + +-------+ +-------+---+---+ +-------+ +-------+---+---+ | Given | 11/10/19 | 3 mLs | | | | | 19 10:46 | | | | | | AM PDT | | | | +-------+ +-------+---+---+ | Given | 11/10/19 | 3 mLs | | | | | 19 7:59 | | | | | | AM PDT | | | | +-------+ +-------+---+---+ +---+---+ | | | +---+---+ + +-------+ +-------+---+---+ | bisacodyl (DULCOLAX) | Given | 11/06/19 | 10 mg | | | | suppository 10 mg 10 mg, Rectal, | | 19 6:13 | | | | | DAILY PRN, Constipation, | | PM PDT | | | | | Starting Tu10/24/18 at 2120, If | | | | [...] Oral, EVERY 2 HOURS PRN, | | AM PDT | | | | | Indigestion, Starting 10/24/18 | | | | | | | at 2120, Post-op/Phase II | | | | | | + +-------+ + +---+---+ +-------+ + +---+---+ | Given | 10/27/19 | 1,000 mg | | | | | 19 11:24 | | | | | | PM PDT | | | | +-------+ + +---+---+ | Given | 10/27/19 | 500 mg | | | | | 19 9:16 | | | | | | PM PDT | | | | +-------+ + +---+---+ +---+---+ | | | +---+---+ + +-------+ + +---+---+ | calcium citrate-vitamin D | Given | 11/10/19 | 1 tablet | | | | (CITRACAL+D) 315 mg-200 units per | | 19 9:25 | | | | | tablet 1 tablet 1 tablet, Oral, | | AM PDT | | | | | 2 TIMES DAILY, First dose on Tue | | | | | | | 10/30/18 at 0930 | | | | | | + +-------+ + +---+---+ +-------+ + +---+---+ | Given | 11/09/19 | 1 tablet | | | | | 19 9:13 | | | | | | PM PDT | | | | +-------+ + +---+---+ | Given | 11/09/19 | 1 tablet | | | | | 19 9:45 | | | | | | AM PDT | | | | +-------+ + +---+---+ +---+---+ | | | +---+---+ + +-------+ +--------+---+---+ | celecoxib (CELEBREX) capsule | Given | 11/10/19 | 200 mg | | | | 200 mg 200 mg, Oral, 2 TIMES | | 19 9:25 | | | | | DAILY, First dose on Tue10/24/18 | | AM PDT | | | | | at [...] mg | | | | | 19 9:13 | | | | | | PM PDT | | | | +-------+ +--------+---+---+ | Given | 11/09/19 | 200 mg | | | | | 19 9:45 | | | | | | AM PDT | | | | +-------+ +--------+---+---+ +---+---+ | | | +---+---+ + +-------+ +-------+---+---+ | citalopram (celeXA) tablet 40 | Given | 11/10/19 | 40 mg | | | | mg 40 mg, Oral, DAILY, First | | 19 9:25 | | | | | dose on Tue10/25/18 at 0900 | | AM PDT | | | | + +-------+ +-------+---+---+ +-------+ +-------+---+---+ | Given | 11/09/19 | 40 mg | | | | | 19 9:45 | | | | | | AM PDT | | | | +-------+ +-------+---+---+ | Given | 11/08/19 | 40 mg | | | | | 19 8:11 | | | | | | AM PDT | | | | +-------+ +-------+---+---+ + +---+ | | | + +---+ [...] HOURS PRN, Itching, Starting | | | Tue10/24/18 at 0, Oral route | | | is preferred., Post-op/Phase II | | + +---+ | | | + +---+ | diphenhydrAMINE (BENADRYL) | | | injection 12.5 mg 12.5 mg, | | | Intravenous, EVERY 4 HOURS PRN, | | | Itching, Starting Tue10/24/18 at | | | 0, Oral route is preferred., | | | Post-op/Phase II | | + +---+ | | | + +---+ + +-------+ +--------+---+---+ | docusate sodium (COLACE) | Given | 11/01/19 | 100 mg | | | | capsule 100 mg 100 mg, Oral, 2 | | 19 8:45 | | | | | TIMES DAILY PRN, Constipation, | | AM PDT | | | | | Starting Tue10/24/18 at 2119, | | | | | | | First line agent for | | | | | | | constipation, Post-op/Phase II | | | | | | + +-------+ +--------+---+---+ +-------+ +--------+---+---+ | Given | 10/31/19 | 100 mg | | | | | 19 5:32 | | | | | | PM PDT | | | | +-------+ +--------+---+---+ | Given | 10/31/19 | 100 mg | | | | | 19 9:18 | | | | | | AM PDT | | | | +-------+ +--------+---+---+ +---+---+ | | | +---+---+ + +-------+ +-------+---+ + | enoxaparin (LOVENOX) 40 mg/0.4 | Given | 11/10/19 | 40 mg | | Abdomen- | | mL injection 40 mg 40 mg, | | 19 9:24 | | | LLQ | | Subcutaneous, EVERY 24 HOURS | | AM PDT | | | | | (Daily), [...] | | | RLQ | | | AM PDT | | | | +-------+ +-------+---+ + | Given | 11/08/19 | 40 mg | | Abdomen- | | | 19 8:11 | | | LUQ | | | AM PDT | | | | +-------+ +-------+---+ + +---+---+ | | | +---+---+ + +-------+ +-------+---+---+ | furosemide (LASIX) tablet 40 mg | Given | 11/10/19 | 40 mg | | | | 40 mg, Oral, 2 TIMES DAILY 0800 | | 19 3:29 | | | | | & 1600, First dose on 11/06/18 | | PM PDT | | | | | at 0830 | | | | | | + +-------+ +-------+---+---+ +-------+ +-------+---+---+ | Given | 11/10/19 | 40 mg | | | | | 19 8:02 | | | | | | AM PDT | | | | +-------+ +-------+---+---+ | Given | 11/09/19 | 40 mg | | | | | 19 4:03 | | | | | | PM PDT | | | | +-------+ +-------+---+---+ + +---+ | | | + +---+ | haloperidol lactate (HALDOL) | | | injection 2 mg 2 mg, | | | Intramuscular, EVERY 6 HOURS PRN, | | | Agitation, Starting 11/03/18 | | | at 0843 | | + +---+ | | | + +---+ + +-------+ +---------+---+---+ | HYDROcodone-acetaminophen | Given | 11/10/19 | 2 | | | | (NORCO) 5-325 mg per tablet 1-2 | | 19 11:48 | tablets | | | | tablet 1-2 tablet, Oral, EVERY 6 | | AM PDT | | | | | HOURS PRN, Pain, Starting Becka | | | | | | | 11/02/18 at 1408 | | | | | | + +-------+ +---------+---+---+ +-------+ + +---+---+ | Given | 11/09/19 | 1 tablet | | | | | 19 10:24 | | | | | | PM PDT | | | | +-------+ + +---+---+ | Given | 11/09/19 | 2 | | | | | 19 4:03 | tablets | | | | | PM PDT | | | | +-------+ + +---+---+ +---+---+ | | | +---+---+ + +-------+ +------+---+---+ | HYDROmorphone (DILAUDID) | Given | 11/08/19 | 1 mg | | | | injection 0.25-1 mg 0.25-1 mg, | | 19 3:20 | | | | | Intravenous, EVERY 2 HOURS PRN, | | AM PDT | | | | | Pain, Starting Tue10/24/18 at | | | | | | [...] 2:30 | | | | | | AM PDT | | | | +-------+ +------+---+---+ +---+---+ | | | +---+---+ + +-------+ +-------+---+---+ | hydrOXYzine hydrochloride | Given | 11/08/19 | 50 mg | | | | (ATARAX) tablet 50 mg 50 mg, | | 19 9:56 | | | | | Oral, 2 TIMES DAILY PRN, Anxiety, | | PM PDT | | | | | Anxiety, Starting 11/03/18 at | | | | | | | 1130 | | | | | | + +-------+ +-------+---+---+ +-------+ +-------+---+---+ | Given | 11/04/19 | 50 mg | | | | | 19 12:10 | | | | | | PM PDT | | | | +-------+ +-------+---+---+ +---+---+ | | | +---+---+ + +-------+ +--------+---+---+ | lactulose liquid 30 mL 30 mL, | Given | 10/31/19 | 30 mLs | | | | Oral, 3 TIMES DAILY PRN, | | 19 9:21 | | | | | Constipation, Starting Mon | | AM PDT | | | | | 10/30/18 [...] 750 mg 750 mg, | | 19 10:24 | | mL/hr | | | Intravenous, Administer over 90 | | PM PDT | | | | | Minutes, EVERY 24 HOURS INTERVAL, | | | | | | | First dose (after last | | | | | | | modification) on [facility] 11/02/18 at | | | | | | | 2300, Indications: Community | | | | | | | Acquired Pneumonia | | | | | | + +---------+ +--------+-------+---+ +---------+ +--------+-------+---+ | New Bag | 11/08/19 | 750 mg | 100 | | | | 19 10:57 | | mL/hr | | | | PM PDT | | | | +---------+ +--------+-------+---+ | New Bag | 11/07/19 | 750 mg | 100 | | | | 19 11:19 | | mL/hr | | | | PM PDT | | | | +---------+ +--------+-------+---+ +---+---+ | | | +---+---+ + +-------+ +-------+---+---+ | morphine (MS CONTIN) ER tablet | Given | 11/10/19 | 15 mg | | | | 15 mg 15 mg, Oral, EVERY 12 | | 19 9:25 | | | | | HOURS (2 times per day), First | | AM PDT | | | | | dose on Tue10/26/18 at 2100, Do | | | | | | | not cut or crush., | | | | | | + +-------+ +-------+---+---+ +-------+ +-------+---+---+ | Given | 11/09/19 | 15 mg | | | | | 19 9:14 | | | | | | PM PDT | | | | +-------+ +-------+---+---+ | Given | 11/09/19 | 15 mg | | | | | 19 9:45 | | | | | | AM PDT | | | | +-------+ +-------+---+---+ +---+---+ | | | +---+---+ + +---------+ +---------+---+ + | nicotine (NICODERM) 7 mg/24 hr | Patch | 11/04/19 | 1 patch | | Arm-Left | | 1 patch 1 patch, Transdermal, | Applied | 19 10:00 | | | Upper | | DAILY, First dose on Tue10/25/18 | | AM PDT | | | | | at 0900 | | | | | | + +---------+ +---------+---+ + + + +---------+---+ + | Patch Applied | 10/29/19 | 1 patch | | Arm-Left | | | 19 8:05 | | | Upper | | | AM PDT | | | | + + +---------+---+ + | Patch Applied | 10/28/19 | 1 patch | | Arm-Righ | | | 19 9:19 | | | t Upper | | | AM PDT | | | | + + +---------+---+ + +---+---+ | | | +---+---+ + +-------+ +------+---+---+ | OLANZapine (zyPREXA) tablet 5 | Given | 11/10/19 | 5 mg | | | | mg 5 mg, Oral, 2 TIMES DAILY, | | 19 9:25 | | | | | First dose (after last | | AM PDT | | | | | modification) on Tue11/03/18 at | | | | | | | 1200 | | | | | | + +-------+ +------+---+---+ +-------+ +------+---+---+ | Given | 11/09/19 | 5 mg | | | | | 19 9:13 | | | | | | PM PDT | | | | +-------+ +------+---+---+ | Given | 11/09/19 | 5 mg | | | | | 19 9:46 | | | | | | AM PDT | | | | +-------+ +------+---+---+ +---+---+ | | | +---+---+ + +-------+ +-------+---+---+ | pantoprazole (PROTONIX) DR | Given | 11/10/19 | 40 mg | | | | tablet 40 mg 40 mg, Oral, 2 | | 19 3:30 | | | | | TIMES DAILY BEFORE MEALS, First | | PM PDT | | | | | dose on Tue10/27/18 at 1630, Do | | | | | | | not cut or crush., Indication: | | | | | | | GERD | | | | | | + +-------+ +-------+---+---+ +-------+ +-------+---+---+ | Given | 11/10/19 | 40 mg | | | | | 19 8:01 | | | | | | AM PDT | | | | +-------+ +-------+---+---+ | Given | 11/09/19 | 40 mg | | | | | 19 4:03 | | | | | | PM PDT | | | | +-------+ +-------+---+---+ +---+---+ | | | +---+---+ + +-------+ + +---+---+ | phenol (CHLORASEPTIC) spray 1-2 | Given | 10/28/19 | 2 sprays | | | | spray 1-2 spray, Mouth/Throat, | | 19 6:28 | | | | | EVERY 3 HOURS PRN, Sore Throat, | | AM PDT | | | | | Starting [...] 17 g, Oral, DAILY | | 19 3:19 | | | | | PRN, Constipation, Starting Tue | | PM PDT | | | | | 10/24/18 [...] 10:26 | | | | | | AM PDT | | | | +-------+ +------+---+---+ | Given | 11/01/19 | 17 g | | | | | 19 8:45 | | | | | | AM PDT | | | | +-------+ +------+---+---+ +---+---+ | | | +---+---+ + +-------+ +--------+---+---+ | potassium chloride (FABIOLA-ARY) | Given | 11/09/19 | 20 mEq | | | | ER tablet 20-40 mEq 20-40 mEq, | | 19 6:35 | | | | | Oral, DAILY PRN, Per protocol, | | AM PDT | | | | | Starting [...] 9:07 | | | | | | AM PDT | | | | +-------+ +--------+---+---+ | Given | 11/03/19 | 20 mEq | | | | | 19 8:51 | | | | | | AM PDT | | | | +-------+ +--------+---+---+ [...] | | | + +---+ + +-------+ +-------+---+---+ | predniSONE (DELTASONE) tablet | Given | 11/10/19 | 40 mg | | | | 40 mg 40 mg, Oral, DAILY, First | | 19 9:25 | | | | | dose on 11/05/18 at 1000 | | AM PDT | | | | + +-------+ +-------+---+---+ +-------+ +-------+---+---+ | Given | 11/09/19 | 40 mg | | | | | 19 9:46 | | | | | | AM PDT | | | | +-------+ +-------+---+---+ | Given | 11/08/19 | 40 mg | | | | | 19 8:11 | | | | | | AM PDT | | | | +-------+ +-------+---+---+ +---+---+ | | | +---+---+ + +-------+ +--------+---+---+ | senna (SENOKOT) tablet 8.6 mg | Given | 11/09/19 | 8.6 mg | | | | 8.6 mg, Oral, NIGHTLY, First dose | | 19 9:13 | | | | | (after last modification) on Mon | | PM PDT | | | | | 10/30/18 at 2100, If docusate | | | | | | | ineffective or not ordered, | | | | | | | Post-op/Phase II | | | | | | + +-------+ +--------+---+---+ +-------+ +--------+---+---+ | Given | 11/08/19 | 8.6 mg | | | | | 19 8:10 | | | | | | PM PDT | | | | +-------+ +--------+---+---+ | Given | 11/07/19 | 8.6 mg | | | | | 19 9:03 | | | | | | PM PDT | | | | +-------+ +--------+---+---+ +---+---+ | | | +---+---+ + +-------+ +--------+---+---+ | pa[facility] | Given | 10/25/19 | 1 Dose | | | | CONSULT, Starting Tu10/24/18 at | | 19 6:21 | | | | | 1317, Pre-op | | PM PDT | | | | + +-------+ +--------+---+---+ +---+---+ | | | +---+---+ + +-------+ +-------+---+---+ | topiramate (TOPAMAX) tablet 25 | Given | 11/10/19 | 25 mg | | | | mg 25 mg, Oral, 2 TIMES DAILY, | | 19 9:25 | | | | | First dose on Tue11/03/18 at | | AM PDT | | | | | 1200, Reproductive Risk: Use | | | | | | | appropriate handling | | | | | | | precautions., | | | | | | + +-------+ +-------+---+---+ +-------+ +-------+---+---+ | Given | 11/09/19 | 25 mg | | | | | 19 9:14 | | | | | | PM PDT | | | | +-------+ +-------+---+---+ | Given | 11/09/19 | 25 mg | | | | | 19 9:45 | | | | | | AM PDT | | | | +-------+ +-------+---+---+ +---+---+ | | | +---+---+ + +-------+ +-------+---+---+ | traMADol (ULTRAM) tablet 50 mg | Given | 11/08/19 | 50 mg | | | | 50 mg, Oral, EVERY 6 HOURS PRN, | | 19 9:56 | | | | | Pain, Starting 10/28/18 at | | PM PDT | | | | | 1751 | | | | | | + +-------+ +-------+---+---+ +-------+ +-------+---+---+ | Given | 11/05/19 | 50 mg | | | | | 19 7:34 | | | | | | PM PDT | | | | +-------+ +-------+---+---+ | Given | 10/31/19 | 50 mg | | | | | 19 3:13 | | | | | | AM PDT | | | | +-------+ +-------+---+---+ +---+---+ | | | +---+---+ documented in this encounter
--- OUTSIDE RECORDS SUMMARY | ~2019-03-11 | XMS | Encounter Summary ---
Demographics + + + | Address | [address] | | | [place] [address] | + + + | Home Phone | | + + + | Preferred Language | Unknown | + + + | Marital Status | | + + + | Bahai Affiliation | Unknown | + + + | Race | Unknown | + + + | Ethnic Group | Unknown | + + + Author + + + | Author | [facility] | | | and [place] | + + + | Organization | [facility] | | | and [place] | + + + | Address | Unknown | + + + | Phone | Unavailable | + + + Support + + + + + | Name | Relationship | Address | Phone | + + + + + | Fabienne Juarez | ECON | [place] | | | | | [address] | | + + + + + Care Team Providers + +------+ + | Care Photocopy Operator Name | Role | Phone | + +------+ + | Celestine Watters MD | PCP | | + +------+ + Encounter Details +--------+ + + + + | Date | Type | Department | Care Team | Description | +--------+ + + + + | 12/11/ | Hospital | [facility] | Miah Monique | Status post left hip | | 2018 | Encounter | RADHA Curry5 | MD Fab [address] | replacement | | | | [address] | [address] [place] [address] | | | | | [place], [place] | [place] [address] | | | | | [address] | [phone] | | | | | [phone] | | | +--------+ + + + [...] tablets by | 120 | 0 | 11/15/19 | | | (TYLENOL) 325 mg | mouth 3 times daily. | tablet | | 19 | | | tablet | | | | | | + + + +---------+ + + | albuterol 90 | Inhale 2 puffs into | 1 | 2 | 11/15/19 | | | mcg/puff inhaler | the lungs every 4 | Inhaler | | 19 | | | | hours as needed for | | | | | | | Shortness of Breath. | | | | | + + + +---------+ + + | | Take 3 mLs by | 360 mL | 2 | 11/15/19 | | | albuterol-ipratropiu | nebulization every 4 | | | 19 | | | m 2.5-0.5 mg/3 mL | hours as needed for | | | | | | SOLN | Wheezing or | | | | | | | Shortness of Breath. | | | | | + + + +---------+ + + | celecoxib | Take 1 capsule by | 60 | 0 | 11/15/19 | | | (CELEBREX) 200 mg | mouth 2 times daily. | capsule | | 19 | | | capsule | | | | [...] tablet by | 30 | 0 | 11/15/19 | | | 40 mg tablet | mouth 2 times daily. | tablet | | 19 | | + + + +---------+ + + | gabapentin | Take 1 capsule by | 90 | 3 | 12/12/19 | | | (NEURONTIN) 400 mg | mouth 3 times daily | capsule | | 19 | 0 | | capsule | for 120 days. | | | | | + [...] patch onto | 30 | 2 | 11/15/19 | | | (NICODERM) 7 mg/24 | the skin Daily. | patch | | 19 | | | hr | | | | | | + + + +---------+ + + | OLANZapine | Take 1 tablet by | 60 | 0 | 11/15/19 | | | (ZYPREXA) 5 mg | mouth 2 times daily | tablet | | 19 | 9 | | tablet | for 30 days. | | | | | + + + +---------+ + + | oxyCODONE | Take 1 tablet by | 60 | 0 | 12/12/19 | | | (ROXICODONE) 5 mg | mouth every 4 hours | tablet | | 19 | 9 | | tablet | as needed for Pain | | | | | | | for up to 14 days. | | | | | + + + +---------+ + + | senna (SENOKOT) | Take 1 tablet by | 30 | 0 | 11/15/19 | | | 8.6 mg tablet | [...] this | | VIEWS | e | 3:59 PM | hip replacement | procedure are in the | | | | PDT | | results section. | + +--------+ + + + documented in this encounter Results XR Hip Left 2-3 Views (12/11/2018 3:59 PM PDT) + + | Specimen | [...] + | Status post left hip replacement Hip joint replacement by other means | + + documented in this encounter"
--- OUTSIDE RECORDS SUMMARY | ~2019-03-11 | XMS | Encounter Summary ---
Demographics + + + | Address | [address] | | | [place] [address] | + + + | Home Phone | | + + + | Preferred Language | Unknown | + + + | Marital Status | | + + + | Sikh Affiliation | Unknown | + + + | Race | Unknown | + + + | Ethnic Group | Unknown | + + + Author + + + | Author | [facility] | | | and [place] | + + + | Organization | [facility] | | | and [place] | + + + | Address | Unknown | + + + | Phone | Unavailable | + + + Support + + + + + | Name | Relationship | Address | Phone | + + + + + | Fabienne Juarez | ECON | [place] | | | | | [address] | | + + + + + Care Team Providers + +------+ + | Care Termite Renewal Inspector Name | Role | Phone | + +------+ + PCP | Unavailable | + +------+ + Encounter Details +--------+ + + + + | Date | Type | Department | Care Team | Description | +--------+ + + + + | 10/06/ | Hospital | [facility] | Conversion | | | 2019 | Encounter | [facility] | Transaction, | | | | | CLINIC [address] | Provider Unknown | | | | | [place], [place] | | | | | | [address] | | | | | | [phone] | | | +--------+ + + + [...] | Blood Pressure | 118/64 | 10/06/2018 10:43 AM | | | | | PDT | | + + + + + | Pulse | - | - | | + + + + + | Temperature | - | - | | + + + + + | Respiratory Rate | - | - | | + + + + + | Oxygen Saturation | - | - | | + + + + + | Inhaled Oxygen | - | - | | | Concentration | | | | + + + + + | Weight | 119 kg (262 lb 5.6 | 10/06/2018 10:43 AM | | | | oz) | PDT | | + + + + + | Height | 152.4 cm (5') | 10/06/2018 10:43 AM | | | | | PDT | | + + + + + | Body Mass Index | 51.24 | 10/06/2018 10:43 AM | | | | | PDT | | + + + + + documented in this encounter Medications at Time of [...] parking | 1 each | 0 | 10/05/19 | | | diphenoxylate-atropi | placard | [...] | + +--------+ + + + | EXTERNAL LAB: CBC | Routin | 10/06/2018 | | Results for this | | | e | 11:00 AM | | procedure are in the | | | | PDT | | results section. | + +--------+ + + + | MRSA NAAT | Timed | 10/06/2018 | | Results for this | | | | 11:00 AM | | procedure are in the | | | | PDT | | results section. | + +--------+ + + + | TYPE AND SCREEN | Routin | 10/06/2018 | | Results for this | | | e | 11:00 AM | | procedure are in the | | | | PDT | | results section. | + +--------+ + + + | HEMOGLOBIN A1C | Routin | 10/06/2018 | | Results for this | | | e | 11:00 AM | | procedure are in the | | | | PDT | | results section. | + +--------+ + + + | COMPREHENSIVE | Routin | 10/06/2018 | | Results for this | | METABOLIC PANEL | e | 11:00 AM | | procedure are in the | | | | PDT | | results section. | + +--------+ + + + documented in this encounter Results Type and Screen (10/06/2018 11:00 AM PDT) + + + + + + | Component | Value | Ref Range | Performed | Pathologist | | | | | At | Signature | + + + + + + | ABO Rh | O POSITIVE | | EXTERNAL | | | | | | LAB | | + + + + + + | Antibody | NEGATIVETesting | | EXTERNAL | | | Screen | performed at [facility] | | LAB | | | | [facility];[place], [place] | | | | | | [address] | | | | + + + [...] +---------+ + + MRSA NAAT (10/06/2018 11:00 AM PDT) + + | Specimen | + + | | + + + + + | Narrative | Performed At | + + + | SOURCE NARES(NOSE) MRSA | EXTERNAL LAB | | PCR NEGATIVE Testing | | | performed at [facility];[address] [place] [address];[place] [address] | | + + + + +---------+ + + | Performing | Address | City/State/Zipcode | Phone Number | | Organization | | | | + +---------+ + + | EXTERNAL LAB | | | | + +---------+ + + External Lab: CBC (10/06/2018 11:00 AM PDT) + + + + + [...] + + + | % Segmented | 56.27 | % | EXTERNAL | | | | | | LAB | | | Neutrophils | | | [...] - 7.40 | EXTERNAL | | | Segmented | | K/uL | LAB | | | Neutrophils | | | [...] | | | Basophils | performed at [facility], [address] | LAB | | | | [address] [facility], | | | | | | [place] [address] | | | | + + + [...] +---------+ + + Hemoglobin A1C (10/06/2018 11:00 AM PDT) + + + + + + | Component | Value | Ref Range | Performed | Pathologist | | | | | At | Signature | + + + + + + | Hemoglobin | 4.5Comment: HbA1c method | 4.0 - 6.0 % | EXTERNAL | | | A1c | is certified by [employer] | | LAB | | | | and traceable to the | | | | | | DCCT reference | | | | | | method.ADA guidelines | | | | | | indicate: | | | | | | Prediabetes: 5.7 - 6.4 | | | | | | Diabetes: >6.4 | | | | | | Glycemic control for | | | | | | adults with diabetes: | | | | | | <7.0Effective 03/22/2018: | | | | | | Note New Method | | | | + + [...] | | | | | performed at [facility], [address] | | | | | | [facility], | | | | | | [place] [address] | | | | + + + [...] + + Comprehensive Metabolic Panel (10/06/2018 11:00 AM PDT) + + + + + [...] | | | | | performed at [facility], [address] | | | | | | [facility], | | | | | | [place] [address] | | | | + + + [...]
--- OUTSIDE RECORDS SUMMARY | ~2019-03-11 | XMS | Encounter Summary ---
Demographics + + + | Address | [address] | | | [place] [address] | + + + | Home Phone | | + + + | Preferred Language | Unknown | + + + | Marital Status | | + + + | Rastafari Affiliation | Unknown | + + + | Race | Unknown | + + + | Ethnic Group | Unknown | + + + Author + + + | Author | [facility] | | | and [place] | + + + | Organization | [facility] | | | and [place] | + + + | Address | Unknown | + + + | Phone | Unavailable | + + + Support + + + + + | Name | Relationship | Address | Phone | + + + + + | Fabienne Juarez | ECON | [place] | | | | | [address] | | + + + + + Care Team Providers + +------+ + | Care Ice Cream Chef Name | Role | Phone | + [...] | | | | encounter | | [address] Phone: | | | | | ([facility]) | | [phone] | | | | | Mechanical | | Fax: | | | | | complication | | [phone] | | | | | of | | | | | | | prosthetic | | | | | | | knee | | | | | | | implant, | | | | | | | initial | | | | | | | encounter | | | | | | | ([facility]) | | | | | [...] + + | 10/24/ | Anesthesia | [facility] | Jt Thorpe MD | | | 2019 | Event [facility] | [address] | | | | | OPER[address] | [place] [address] | | | | | [address] | [phone] | | | | | [place], [place] | Griselda Brush, | | | | | [address] | BANK NOTE DESIGNER [address] [facility] | | | | | [phone] | [place] [address] | | | | | | [phone] | | | | | | | | +--------+ + + + + Anesthesia Record + + + + + | Procedure Name | Responsible | Anesthesia Start | Anesthesia Stop Time | | | Anesthesiologist | Time | | + + + + + | ARTHROPLASTY | Jt Thorpe MD | 10/24/18 1556 | 10/24/18 1618 | | REVISION TOTAL HIP | | | | | (Left Hip) | | | | + + + + + +----+---+ + + | Da | T | Event | Comment | | te | i | | | | | m | | | | | e | | | +----+---+ + + | 08 | 1 | | | | /2 | 5 | | | | 0/ | 2 | | | | 20 | 1 | | | | 19 | | | | +----+---+ + + | | 1 | An Start | Reassessment prior to anesthesia induction/procedure. | | | 5 | | | | | 5 | | | | | 6 | | | +----+---+ + + | | 1 | Quick Note | The patient is sitting for the spinal. The hips are neutral and | | | 5 | | the back is rounded for optimal positioning. The patient | | | 5 | | expresses they are comfortable to be able to sit in this position | | | 9 | | for the spinal. The Business Services Director Jolene is assisting | | | | | anteriorly for safety. | +----+---+ + + | | 1 | AN Block | | | | 6 | End | | | | 0 | | | | | 8 | | | +----+---+ + + | | 1 | Quick Note | As a team we assisted the patient to lay supine after spinal | | | 6 | | anesthetic placement. The patient expresses comfort in the | | | 1 | | orientation of her position and the padding provided. | | | 2 | | | +----+---+ + + | | 1 | Antibiotic | | | | 6 | Given | | | | 2 | | | | | 3 | | | +----+---+ + + | | 1 | Oneco | | | | 6 | 43-degrees | | | | 3 | | | | | 3 | | | +----+---+ + + | | 1 | First | | | | 6 | Inc/Proc St | | | | 3 | | | | | 5 | | | +----+---+ + + | | 1 | Quick Note | | | | 7 | | | | | 0 | | | | | 6 | | | +----+---+ + + | | 1 | Out of OR | | | | 8 | Device Stop | | | | 3 | | | | | 1 | | | +----+---+ + + | | 1 | An Stop | Patient handed off to recovery nurse. | | | 3 | | | | | 8 | | | +----+---+ + + +------+ | Meds | +------+ + + + | Name | Total | + + + | midazolam 2 mg/mL | 2 mg | + + + | lidocaine 2% | 50 mg | + + + | propofol | 80 mg | + + + | propofol infusion | 1,558.9 mg | + + + | ondansetron | 4 mg | + + + | dexamethasone | 4 mg | + + + | ceFAZolin in dextrose (ANCEF) | 2 g | | IVPB 2 g | | + + + | tranexamic acid (CYKLOKAPRON) | 1,000 mg | | 1,000 mg in sodium chloride 0.9% | | | 50 mL IVPB | | + + + | tranexamic acid (CYKLOKAPRON) | 1,000 mg | | 1,000 mg in sodium chloride 0.9% | | | 50 mL IVPB | | + + + | fentaNYL (PF) 50 mcg/mL Spinal | 20 mcg | + + + | bupivacaine 0.5% (Epidural) | 2.2 mL | + + + | electrolyte-A (PLASMALYTE-A) | 400 mL | | infusion | | + + + | phenylephrine | 600 mcg | + + + | EPINEPHrine (PF) 1 mg/mL Spinal | 10 mcg | + + + | glycopyrrolate | 0.15 mg | + + + | ePHEDrine | 10 mg | + + + + + | Name | + + | N2O Flow Rate (L/Min) | + + | O2 Flow Rate (L/Min) | + + | Insp O2 | + + | Exp N2O | + + | Exp SEV | + + | Air Flow Rate (L/Min) | + + | Secondary O2 Flow Rate | + + + + | No blood administrations on file. | + + +--------+ + + + | Type | Details | Placement | Removal | +--------+ + + + | Wound | 10/24/18; 1831; Incision; Left; | 10/24/181831 by | | | | hip; LIQUIBAND, TABITHA DRESSING | Dano Roberts RN | | +--------+ + + + | Periph | 10/24/18; 1406; Left; Upper Arm; | 10/24/18 1406 by | 10/27/18 0531 by | | eral | 20 gauge; Blood Bank; site | Sandy Rios, | Jimena Lowry | | IV | symptomatic; infiltrated; | RN | AlJUAN Bobo | | | 10/27/18; 0531 | | | +--------+ + + + | Airway | Placement Date: 10/24/18; | 10/24/18 164 by | 10/24/18 1835 by | | | Placement Time: 1645; Airway | Griselda Brush, | Dominique Chong RN | | | Type: nasal; Size: 30; Position: | BANK NOTE DESIGNER | | | | Left; Trauma: none; Placement | | | | | Check: exhaled CO2 detection | | | | | device; Removal Date: 10/24/18; | | | | | Removal Time: 1834 (No airway in | | | | | place upon arrival to PACU.) | | | +--------+ + + + documented in this encounter Social History + +-------+ +--------+------+ | Tobacco [...] this encounter Last Filed Vital Signs + +---------+ + + | Vital Sign | Reading | Time Taken | Comments | + +---------+ + + | Blood Pressure | 130/62 | 10/24/2018 6:27 PM | | | | | PDT | | + +---------+ + + | Pulse | 72 | 10/24/2018 6:24 PM | | | | | PDT | | + +---------+ + + | Temperature | - | - | | + +---------+ + + | Respiratory Rate | - | - | | + +---------+ + + | Oxygen Saturation | 100% | 10/24/2018 6:24 PM | | | | | PDT | | + +---------+ + + | Inhaled Oxygen | - | - | | | Concentration | | | | + +---------+ + + | Weight | - | - | | + +---------+ + + | Height | - | - | | + +---------+ + + | Body Mass Index | - | - | | + +---------+ + + documented in this encounter Plan of Treatment Not on filedocumented as of this encounter Procedures + +--------+ + + + | Procedure Name | Priori | Date/Time | Associated Diagnosis | Comments | | | ty | | | | + +--------+ + + + | ANE EPIDURAL NOTE | Routin | 10/24/2018 | | Results for this | | | e | 4:44 PM | | procedure are in the | | | | PDT | | results section. | + +--------+ + + + documented in this encounter Results Neuraxial (10/24/2018 4:44 PM PDT) + + + | Narrative | Performed At | + + + | Griselda Brush CRNA 10/24/2018 17:11 Neuraxial Procedure | | | Note 10/24/2018 16:00 Procedure: single-shot spinal anesthesia | | | Provider requested procedure: [place] Indication: surgical | | | anesthesia Preprocedure [...] Procedure Note | + + | Griselda Brush CRNA - 10/24/2018 4:44 PM PDT Neuraxial Procedure Note10/24/2018 | | 16:00Procedure: [...] Performing provider: Griselda | | Carlo Brush CRNAMedicatjessica AdministeredFentaNYL (PF) 50 mcg/mL Spinal, 20 | [...] for additional medication documentation. | + + documented in this encounter Visit Diagnoses Not on filedocumented in this encounter Administered Medications + +--------+ +---------+------+------+ | Medication Order | MAR | Action | Dose | Rate | Site | | | Action | Date | | | | + +--------+ +---------+------+------+ | bupivacaine (PF) (MARCAINE) | Given | 10/25/19 | 2.2 mLs | | | | 0.5% injection EPIDURAL, PRN, | | 19 4:07 | | | | | Starting 10/24/18 at 1607, | | PM PDT | | | | | Anesthesia Intra-op | | | | | | + +--------+ +---------+------+------+ +---+---+ | | | +---+---+ + +-------+ +-----+---+---+ | ceFAZolin in dextrose (ANCEF) | Given | 10/25/19 | 2 g | | | | IVPB 2 g 2 g, Intravenous, | | 19 4:23 | | | | | Administer over 30 Minutes, Prior | | PM PDT | | | | | to Incision, Starting Tue | | | | | | | 10/24/18 at 1317, For 1 dose, Keep | | | | | | | in refrigerator., Pre-op, | | | | | | | Indications: Surgical Prophylaxis | | | | | | + +-------+ +-----+---+---+ +---+---+ | | | +---+---+ + +-------+ +------+---+---+ | dexamethasone (DECADRON) 4 | Given | 10/25/19 | 4 mg | | | | mg/mL injection Intravenous, | | 19 4:53 | | | | | PRN, Starting Tue10/24/18 at | | PM PDT | | | | | 1653, Anesthesia Intra-op | | | | | | + +-------+ +------+---+---+ +---+---+ | | | +---+---+ + +-------+ +---------+---+---+ | electrolyte-A (PLASMALYTE-A) | Given | 10/25/19 | 400 mLs | | | | infusion at 50 mL/hr, | | 19 4:54 | | | | | Intravenous, CONTINUOUS, Starting | | PM PDT | | | | | 10/24/18 at 1345, Pre-op | | | | | | + +-------+ +---------+---+---+ +---------+ +---+ +---+ | New Bag | 10/25/19 | | 50 mL/hr | | | | 19 2:10 | | | | | | PM PDT | | | | +---------+ +---+ +---+ +---+---+ | | | +---+---+ + +-------+ +-------+---+---+ | ePHEDrine in saline 5 mg/mL IV | Given | 10/25/19 | 10 mg | | | | syringe Intravenous, PRN, | | 19 5:20 | | | | | Starting 10/24/18 at 1720, | | PM PDT | | | | | Anesthesia Intra-op | | | | | | + +-------+ +-------+---+---+ +---+---+ | | | +---+---+ + +-------+ +--------+---+---+ | EPINEPHrine 1 mg/mL injection | Given | 10/25/19 | 10 mcg | | | | INTRASPINAL, Starting 10/24/18 | | 19 4:07 | | | | | at 1607, Anesthesia Intra-op | | PM PDT | | | | + +-------+ +--------+---+---+ +---+---+ | | | +---+---+ + +-------+ +--------+---+---+ | fentaNYL (PF) injection | Given | 10/25/19 | 20 mcg | | | | INTRASPINAL, Starting Tue10/24/18 | | 19 4:07 | | | | | at 1607, Anesthesia Intra-op | | PM PDT | | | | + +-------+ +--------+---+---+ +---+---+ | | | +---+---+ + +-------+ +---------+---+---+ | glycopyrrolate (ROBINUL) | Given | 10/25/19 | 0.15 mg | | | | injection Intravenous, PRN, | | 19 4:00 | | | | | Starting 10/24/18 at 1600, | | PM PDT | | | | | Anesthesia Intra-op | | | | | | + +-------+ +---------+---+---+ +---+---+ | | | +---+---+ + +-------+ +-------+---+---+ | lidocaine (PF) 2% injection | Given | 10/25/19 | 50 mg | | | | Intravenous, PRN, Starting Tue | | 19 4:19 | | | | | 10/24/18 at 1619, Anesthesia | | PM PDT | | | | | Intra-op | | | | | | + +-------+ +-------+---+---+ +---+---+ | | | +---+---+ + +-------+ +------+---+---+ | midazolam (VERSED) 1 mg/mL | Given | 10/25/19 | 2 mg | | | | injection Intravenous, PRN, | | 19 4:00 | | | | | Starting 10/24/18 at 1600, | | PM PDT | | | | | Anesthesia Intra-op | | | | | | + +-------+ +------+---+---+ +---+---+ | | | +---+---+ + +-------+ +------+---+---+ | ondansetron (ZOFRAN) injection | Given | 10/25/19 | 4 mg | | | | Intravenous, PRN, Starting Tue | | 19 4:00 | | | | | 10/24/18 at 1600, Anesthesia | | PM PDT | | | | | Intra-op | | | | | | + +-------+ +------+---+---+ +---+---+ | | | +---+---+ + +-------+ +---------+---+---+ | phenylephrine (DEVONTE-SYNEPHRINE, | Given | 10/25/19 | 100 mcg | | | | VAZCULEP) 10 mg/mL injection | | 19 6:07 | | | | | Intravenous, PRN, Starting Tue | | PM PDT | | | | | 10/24/18 at 1655, Anesthesia | | | | | | | Intra-op | | | | | | + +-------+ +---------+---+---+ +-------+ +---------+---+---+ | Given | 10/25/19 | 100 mcg | | | | | 19 5:58 | | | | | | PM PDT | | | | +-------+ +---------+---+---+ | Given | 10/25/19 | 100 mcg | | | | | 19 5:34 | | | | | | PM PDT | | | | +-------+ +---------+---+---+ +---+---+ | | | +---+---+ + +-------+ +-------+---+---+ | propofol (DIPRIVAN) injection | Given | 10/25/19 | 30 mg | | | | Intravenous, PRNAbbie Tue | | 19 4:30 | | | | | 10/24/18 at 1619, Anesthesia | | PM PDT | | | | | Intra-op | | | | | | + +-------+ +-------+---+---+ +-------+ +-------+---+---+ | Given | 10/25/19 | 20 mg | | | | | 19 4:24 | | | | | | PM PDT | | | | +-------+ +-------+---+---+ | Given | 10/25/19 | 30 mg | | | | | 19 4:19 | | | | | | PM PDT | | | | +-------+ +-------+---+---+ +---+---+ | | | +---+---+ + + + + +-------+---+ | propofol infusion (DIPRIVAN) 10 | Rate/Dos | 10/25/19 | 125 | 89.3 | | | mg/mL infusion Intravenous, | e Change | 19 4:51 | mcg/kg/m | mL/hr | | | CONTINUOUS PRN, Starting Tue | | PM PDT | in | | | | 10/24/18 at 1619, Anesthesia | | | | | | | Intra-op | | | | | | + + + + +-------+---+ + + + +-------+---+ | Rate/Dose Change | 10/25/19 | 110 | 78.5 | | | | 19 4:42 | mcg/kg/m | mL/hr | | | | PM PDT | in | | | + + + +-------+---+ | Rate/Dose Change | 10/25/19 | 100 | 71.4 | | | | 19 4:37 | mcg/kg/m | mL/hr | | | | PM PDT | in | | | + + + +-------+---+ +---+---+ | | | +---+---+ + +---------+ + +---+---+ | tranexamic acid (CYKLOKAPRON) | New Bag | 10/25/19 | 1,000 mg | | | | 1,000 mg in sodium chloride 0.9% | | 19 4:31 | | | | | 50 mL IVPB 1,000 mg, | | PM PDT | | | | | Intravenous, at 360 mL/hr, ONCE, | | | | | | | 10/24/18 at 1345, For 1 dose, | | | | | | | Pre-op | | | | | | + +---------+ + +---+---+ +---+---+ | | | +---+---+ + +---------+ + +---+---+ | tranexamic acid (CYKLOKAPRON) | New Bag | 10/25/19 | 1,000 mg | | | | 1,000 mg in sodium chloride 0.9% | | 19 6:01 | | | | | 50 mL IVPB 1,000 mg, | | PM PDT | | | | | Intravenous, at 360 mL/hr, ONCE, | | | | | | | 10/24/18 at 1345, For 1 dose, | | | | | | | Pre-op | | | | | | + +---------+ + +---+---+ +---+---+ | | | +---+---+ documented in this encounter"
--- OUTSIDE RECORDS SUMMARY | ~2019-03-11 | XMS | Encounter Summary ---
Demographics + + + | Address | [address] | | | [place] [address] | + + + | Home Phone | | + + + | Preferred Language | Unknown | + + + | Marital Status | | + + + | Buddhist Affiliation | Unknown | + + + | Race | Unknown | + + + | Ethnic Group | Unknown | + + + Author + + + | Author | [facility] | | | and [place] | + + + | Organization | [facility] | | | and [place] | + + + | Address | Unknown | + + + | Phone | Unavailable | + + + Support + + + + + | Name | Relationship | Address | Phone | + + + + + | Fabienne Juarez | ECON | [place] | | | | | [address] | | + + + + + Care Team Providers + +------+ + | Care Hostel Manager Name | Role | Phone | [...] [address] | | | | | [address]VD [place], [place] | [place], | | | | | [address] | [place] [address] | | | | | [phone] | [phone] | | | | | | | [...]
--- OUTSIDE RECORDS SUMMARY | ~2019-03-11 | XMS | Clinical Summary ---
Demographics + + + | Address | [address] | | | [place] [address] | + + + | Home Phone | | + + + | Preferred Language | Unknown | + + + | Marital Status | | + + + | Mosque Affiliation | Unknown | + + + | Race | Unknown | + + + | Ethnic Group | Unknown | + + + Author + + + | Author | [email or web address] (Historical as of | | | 10-21-18) | + + + | Organization | [email or web address] (Historical as of | | | 10-21-18) | + + + | Address | Unknown | + + + | Phone | Unavailable | + + + Support + + + + + | Name | Relationship | Address | Phone | + + + + + | Fabienne Juarez | ECON | [place] | | | | | [address] | | + + + + + Care Team Providers + +------+ + | Care Azure Developer Name | Role | Phone | + [...] Overview: Added automatically from request for surgery [id number] | + + + + + | Mechanical instability of hip prosthesis (HCC) | 09/11/2018 | + + + + + | Overview: Added automatically from request for surgery [id number] | + + Family History + + [...] +------+-------+ + | MEDICAID | SUN[place] | [id number] | | | [address] | | | [place] | | | | [place] | | | [place] | | | | [address] | | | [employer] | | | | | + +--------+ [...] | 1971 | [phone] | [place] [address] | | | [address] | | | [phone] | | + +--------+ +--------+ + +"
--- OUTSIDE RECORDS SUMMARY | ~2019-03-11 | XMS | Encounter Summary ---
Demographics + + + | Address | [address] | | | [place] [address] | + + + | Home Phone [...] | Author | [facility] | | | and [place] | + + + | Organization | [facility] | | | and [place] | + + + | Address | Unknown | + + + | Phone | Unavailable | + + + Support + + + + + | Name | Relationship | Address | Phone | + + + + + | Fabienne Juarez | ECON | [place] | | | | | [address] | | + + + + + Care Team Providers + +------+ + | Care Utility Worker [place] Name | Role | Phone | + [...] Left Hip | Shola Sanchez MD | [address] | | | | | Nondisplaced | [address] | [address] | | | | | Fracture of | ([address] | [place], [place] | | | | | Artificial | [address]) | [address] | | | | | Hip Joint | [place], | Phone: | | | | | | [place] [address] | [phone] | | | | | | Phone: | Fax: | | | | | | [phone] | [phone] | | | | | | Fax: | | | | | | | [phone] | | +--------+--------+ + + + + Encounter Details +--------+---------+ + + + | Date | Type | Department | Care Team | Description | +--------+---------+ + + + | 12/11/ | Office | [facility] | Miah Monique | Status post left hip | | 2019 | Visit | [address] | MD Fab [address] | replacement | | | | [place], [place] | [address] | (Primary Dx) | | | | [address] | [place] [address] | | | | | [phone] | [phone] | | | | | | | [...] Progress Notes Miah Monique MD - 12/11/2018 3:15 PM PDT 12/11/2018 HPI HPI A 48-year-old female [...] 03/13/2019).Electronically signed by MD moshe Vickers 12/12/2018 3:54 PM PDTdocumented in this encounter Plan of Treatment [...]
--- OUTSIDE RECORDS SUMMARY | ~2019-03-11 | XMS | Encounter Summary ---
Demographics + + + | Address | [address] | | | [place] [address] | + + + | Home Phone | | + + + | Preferred Language | Unknown | + + + | Marital Status | | + + + | Caodaism Affiliation | Unknown | + + + | Race | Unknown | + + + | Ethnic Group | Unknown | + + + Author + + + | Author | [facility] | | | and [place] | + + + | Organization | [facility] | | | and [place] | + + + | Address | Unknown | + + + | Phone | Unavailable | + + + Support + + + + + | Name | Relationship | Address | Phone | + + + + + | Fabienne Juarez | ECON | [place] | | | | | [address] | | + + + + + Care Team Providers + +------+ + | Care Ancillary Services Manager Therapy Name | Role | Phone | + +------+ + PCP | Unavailable | + +------+ + Encounter Details +--------+ + + + + | Date | Type | Department | Care Team | Description | +--------+ + + + + | 09/19/ | Hospital | [facility] | Conversion | | | 2019 | Encounter | [facility] [address] | Transaction, | | | | | [address] | Provider Unknown | | | | | [place] | [phone] | | | | | [address] | | | | | | [phone] | | | +--------+ + + + [...]
--- OUTSIDE RECORDS SUMMARY | ~2019-03-11 | XMS | Encounter Summary ---
Demographics + + + | Address | [address] | | | [place] [address] | + + + | Home Phone [...] + | Author | [facility] | | | and [place] | + + + | Organization | [facility] | | | and [place] | + + + | Address | Unknown | + + + | Phone | Unavailable | + + + Support + + + + + | Name | Relationship | Address | Phone | + + + + + | Fabienne Juarez | ECON | [place] | | | | | [address] | | + + + + + Care Team Providers + +------+ + | Care Ambulatory Service Representative Name | Role | Phone | + [...] [address] | | | | | [place], [place] | [address] | | | | | [address] | [place] [address] | | | | | [phone] | [phone] | | | | | | | [...]
--- OUTSIDE RECORDS SUMMARY | ~2019-03-11 | XMS | Encounter Summary ---
Demographics + + + | Address | [address] | | | [place] [address] | + + + | Home Phone | | + + + | Preferred Language | Unknown | + + + | Marital Status | | + + + | Rastafari Affiliation | Unknown | + + + | Race | Unknown | + + + | Ethnic Group | Unknown | + + + Author + + + | Author | [facility] | | | and [place] | + + + | Organization | [facility] | [...] [place] | | | | | [address] | | + + + + + Care Team Providers + +------+ + | Care Underwriting Clerk Name | Role | Phone | [...] | REQUEST) | | | | [address] [place], [place] | [address] | | | | | [address] | [place] [address] | | | | | [phone] | [phone] | | | | | | | [...]
--- OUTSIDE RECORDS SUMMARY | ~2019-03-11 | XMS | Encounter Summary ---
Demographics + + + | Address | [address] | | | [place] [address] | + + + | Home Phone [...] | Author | [facility] | | | and [place] | + + + | Organization | [facility] | | | and [place] | + + + | Address | Unknown | + + + | Phone | Unavailable | + + + Support + + + + + | Name | Relationship | Address | Phone | + + + + + | Fabienne Juarez | ECON | [place] | | | | | [address] | | + + + + + Care Team Providers + +------+ + | Care Supervisor Benzene Refining Name | Role | Phone | + [...] | | | | | encounter | [address] | | | | | | (HCC) | Phone: | | | | | | Mechanical | [phone] | | | | | | complication | Fax: | | | | | | of | [phone] | | | | | | prosthetic [...] | | | | | | | ([facility]) | | | + + + [...] | | | | encounter | | [address] Phone: | | | | | (HCC) | | [phone] | | | | | Mechanical | | Fax: | | | | | complication | | [phone] | | | | | of | | | | | | | prosthetic | | | | | | | knee | | | | | | | implant, | | | | | | | initial | | | | | | | encounter | | | | | | | ([facility]) | | | | | | | Procedures | | | | | | | [facility] REVISE | | | | | | [...] + + | 10/24/ | Hospital | [facility] | Miah Monique | Morbid obesity (HCC) | | 2019 - | Encounter | [facility] | MD Fab [address] | (Primary Dx); Pain | | | | CARE FLOOR [address] | in prosthetic joint, | | 11/09/ | | [address] | [place] [address] | initial encounter | | 2019 | | [place], [place] | [phone] | (HCC); Mechanical | | | | [address] | | complication of | | | | [phone] | | prosthetic knee | | | [...] hypoxia | | | | | | ([facility]) | +--------+ + + + + [...] [facility], comprising of an acetabular component revision. This [...] and psychiatry was consulted. He r psychiatry DUCT MAKER was also contacted and she was restarted [...] room air #Depression/anxiety/PTSD: -11/03/18 Discussed patient with [facility] [phone]. She has a diagnosis of PTSD and [...] of Depression Heartburn Hemorrhage of gastrointestinal tract 2014 upper and lower due ulcers Morbid obesity [...] HIP; Surgeon: Miah Monique MD; Location: [facility] MAIN OR TOTAL HIP ARTHROPLASTY Left 2014 [...] * No resolved hospital problems. * Disposition: detention Condition: Fair Code Status: Full Code Follow up: Miah Monique MD [address] [place] [id number] In 4 weeks For wound re-check and [...] more often than directed. Talk to your aviation survival technician regarding the use of this medicine in [...] should report to your doctor or health career development specialist as soon as p ossible: allergic [...] attention (report to your doctor or health career development specialist if they continue or are bothersome): [...] for pain, tell your doctor or health career development specialist if the pain lasts more than [...] if prescribed by your doctor or health career development specialist. Do not take aspirin or aspirin-like [...] pharmacist, or health care provider. Copyright 2019 rumr: turn off the lights Albuterol inhalation aerosol Brand Names: Proair HFA, [...] ou have any questions. Talk to your aviation survival technician regarding the use of this medicine in children. Special care may be needed. What side effects may I notice from receiving this medicine? Side effects that you should report to your doctor or health career development specialist as soon as p ossible: allergic [...] attention (report to your doctor or health career development specialist if they continue or are bothersome): [...] this medicine? Tell your doctor or health career development specialist if your symptoms do not improve. [...] more often than directed. Talk to your aviation survival technician regarding the use of this medicine in children. Special care may be needed. What side effects may I notice from receiving this medicine? Side effects that you should report to your doctor or health career development specialist as soon as p ossible: allergic [...] attention (report to your doctor or health career development specialist if they continue or are bothersome): [...] pharmacist, or health care provider. Copyright 2019 rumr: turn off the lights Celecoxib capsules Brand Name: Celebrex What is [...] information carefully each time. Talk to your aviation survival technician regarding the use of this medicine in children. Special care may be needed. What side effects may I notice from receiving this medicine? Side effects that you should report to your doctor or health career development specialist as soon as p ossible: allergic [...] attention (report to your doctor or health career development specialist if they continue or are bothersome): [...] this medicine? Tell your doctor or health career development specialist if your pain does not get [...] roke, talk with your doctor or health career development specialist. Do not take medicines such as [...] pharmacist, or health care provider. Copyright 2019 [employer] Furosemide tablets Brand Names: Active-Medicated Specimen Kit, [...] not take at bedtime. Talk to your aviation survival technician regarding the use of this medicine in children. While this drug m ay be prescribed for selected conditions, precautions do apply. What side effects may I notice from receiving this medicine? Side effects that you should report to your doctor or health career development specialist as soon as p ossible: blood [...] attention (report to your doctor or health career development specialist if they continue or are bothersome): [...] this medicine? Visit your doctor or health career development specialist for regular checks on your progress. Check yo ur blood pressure regularly. Ask your doctor or health career development specialist what your blood pre ssure should [...] information carefully each time. Talk to your aviation survival technician regarding the use of this medicine in children. Special care may be needed. What side effects may I notice from receiving this medicine? Side effects that you should report to your doctor or health career development specialist as soon as p ossible: allergic reactions like skin rash, itching or hives, swelling of the face, lips, or tong ue worsening of mood, thoughts or actions of suicide or dying Side effects that usually do not require medical attention (report to your doctor or health career development specialist if they continue or are bothersome): [...] this medicine? Visit your doctor or health career development specialist for regular checks on your progress. You may want to keep a record at home of how you feel your condition is responding to treatment. You may want to share this information with your doctor or health career development specialist at each vis it. You should contact your doctor or health career development specialist if your seizures get worse or if you have any new types of seizures. Do not stop taking this medicine or any of your seiz ure medicines unless instructed by your doctor or health career development specialist. Stopping your me dicine suddenly can [...] dying should be reported to your health career development specialist right away. Women who become while using this medicine may enroll in the [place] Antiep ileptic Drug Registry by calling . This registry collects informatio n about the safety of antiepileptic drug use during . NOTE:This sheet is a summary. It may not cover all possible information. If you have questi ons about this medicine, talk to your doctor, pharmacist, or health care provider. Copyright 2019 rumr: turn off the lights Morphine sustained-release tablets Brand Names: ARYMO ER, [...] information carefully each time. Talk to your aviation survival technician regarding the use of this medicine in children. Special care may be needed. What side effects may I notice from receiving this medicine? Side effects that you should report to your doctor or health career development specialist as soon as p ossible: allergic [...] attention (report to your doctor or health career development specialist if they continue or are bothersome): [...] to an official disposal site. Contact the [facility] at [phone] or your [facility] government to find a site. If you [...] this medicine? Tell your doctor or health career development specialist if your pain does not go [...] pharmacist, or health care provider. Copyright 2019 [employer] Nicotine skin patches Brand Names: Habitrol, Nicoderm [...] the same area again. Talk to your aviation survival technician regarding the use of this medicine in children. Special care may be needed. What side effects may I notice from receiving this medicine? Side effects that you should report to your doctor or health career development specialist as soon as p ossible: allergic [...] attention (report to your doctor or health career development specialist if they continue or are bothersome): [...] only last for a few days. Call [facility] doctor or health career development specialist if skin redness does not go away after 4 days, if your skin swells, or if you get a rash. If you are a diabetic and you quit smoking, the effects of insulin may be increased and you may need to reduce your insulin dose. Check with your doctor or health career development specialist ab out how you should adjust [...] pharmacist, or health care provider. Copyright 2019 [employer] Olanzapine tablets Brand Name: Cadencerexa What is this medicine? OLANZAPINE (oh CARSON [...] information carefully each time. Talk to your aviation survival technician regarding the use of this medicine in children. While this drug m ay be prescribed for children as young as 13 years for selected conditions, precautions do a pply. What side effects may I notice from receiving this medicine? Side effects that you should report to your doctor or health career development specialist as soon as p ossible: allergic [...] attention (report to your doctor or health career development specialist if they continue or are bothersome): [...] this medicine? Visit your doctor or health career development specialist for regular checks on your progress. It may b e several weeks before you see the full effects of this medicine. Notify your doctor or the [facility] career development specialist if your symptoms get worse, if you have new symptoms, if you are having an unusual effect from this medicine, or if you feel out of control, very discouraged or th ink you might harm yourself or others. Do not suddenly stop taking this medicine. You may need to gradually reduce the dose. Ask y our doctor or health career development specialist for advice. You may get dizzy [...] allergies without asking your doctor or health career development specialist for advice. Some ingredients can increase possible side effects. Your mouth may get dry. Chewing sugarless gum or sucking hard candy, and drinking plenty of water will help. This medicine can reduce the response of your body to heat or cold. Dress brazing machine setter cold weat her and stay hydrated in [...] information carefully each time. Talk to your aviation survival technician regarding the use of this medicine in children. Special care may be needed. What side effects may I notice from receiving this medicine? Side effects that you should report to your doctor or health career development specialist as soon as p ossible: allergic [...] attention (report to your doctor or health career development specialist if they continue or are bothersome): [...] to an official disposal site. Contact the [facility] at [phone] or your [facility] government to find a site. If you cannot return the medicine, flush it down the toilet. Do not use the medicine after the expiration date. What should I tell my health care provider before I take this medicine? They need to know if you have any of these conditions: Bimble's disease brain tumor head injury heart disease [...] this medicine? Tell your doctor or health career development specialist if your pain does not go [...] avoid any side effects. Talk to your aviation survival technician regarding the use of this medicine in children. Special care may be needed. What side effects may I notice from receiving this medicine? Side effects that you should report to your doctor or health career development specialist as soon as p ossible: allergic [...] attention (report to your doctor or health career development specialist if they continue or are bothersome): [...] ta lk to your doctor or health career development specialist. You may need to miss a [...] this medicine? Visit your doctor or health career development specialist for regular checks on your progress. [...] have surgery, tell your doctor or health career development specialist that you hav e taken this medicine within the last twelve months. Ask your doctor or health career development specialist about your diet. You may need to lower the amou nt of salt you eat. This medicine may affect blood sugar levels. If you have diabetes, check with your doctor o r health career development specialist before you change your diet or the dose of your diabetic medicine . NOTE:This sheet is a summary. It may not cover all possible information. If you have questi ons about this medicine, talk to your doctor, pharmacist, or health care provider. Copyright 2019 [employer] Senna tablets or capsules Brand Names: Black [...] e often than directed. Talk to your aviation survival technician regarding the use of this medicine in children. While this medici ne may be prescribed for children as young as 2 years for selected conditions, precautions d o apply. What side effects may I notice from receiving this medicine? Side effects that you should report to your doctor or health career development specialist as soon as p ossible: diarrhea muscle weakness nausea, vomiting unusual weight loss Side effects that usually do not require medical attention (report to your doctor or health career development specialist if they continue or are bothersome): [...] your constipation keeps returning, check with yo ur doctor or health career development specialist. NOTE:This sheet is a summary. It [...] information carefully each time. Talk to your aviation survival technician regarding the use of this medicine in children. Special care may be needed. What side effects may I notice from receiving this medicine? Side effects that you should report to your doctor or health career development specialist as soon as p ossible: allergic [...] attention (report to your doctor or health career development specialist if they continue or are bothersome): [...] this medicine? Tell your doctor or health career development specialist if your pain does not go [...] 3 days, call your doctor or health career development specialist. Your mouth may get dry. Chewing [...] attachments cannot be sent through Care Everywhere.Sepsis (Estonian )Sepsis, Understanding (Estonian)documented in this encounter Medications at Time of [...] Harpal Ray MD - 2:[address] [facility] Service: Hospitalist Progress Note Pt: Sylvie Ramsey AGE/SEX: 48 y.o. female ROOM: [facility]/9119- : 1970 PCP: No Physician on file [...] over2 weeks #Depression/anxiety/PTSD: -11/03/18 Discussed patient with [facility] [phone]. She has a diagnosis of PTSD and [...] and patient declined, recommended smoking cessation Harpal iFne MD 14:29 11/09/2018 Portions of this chart may have been copied from previous notes for continuity of care purp ose arpal Fine MD - 0 11/08/2018 12:[address] [facility] Service: Hospitalist Progress Note Pt: Sylvie [...] encounter as of 11/08/18-12:01 IMAGING: Reviewed in [facility], no new results. PROBLEM LIST Principal [...] as able #Depression/anxiety/PTSD: -11/03/18 Discussed patient with [facility] [phone]. She has a diagnosis of PTSD and [...] M D - 11/07/2018 2:[address] [facility] Service: Hospitalist Progress Note Hospital Day: [...] and psychiat ry was consulted. Her psychiatry DUCT MAKER was also contacted and she was restarted [...] as tolerated #Depression/anxiety/PTSD: -11/03/18 Discussed patient with [facility] [phone]. She has a diagnosis of PTSD and [...] Chambers MD - 11/07/2018 8:[address] [facility] Service: PULMONOLOGY Progress Note Date of [...] HIP; Surgeon: Miah Monique MD; Location: [facility] MAIN OR TOTAL HIP ARTHROPLASTY Left 2014 [facility] Family History Problem Relation Age of Onset [...] might be different from the o riginal. [facility] Service: Orthopedic Surgery Progress Note Hospital [...] MIGDALIA Thompson has created this entry using [employer] and [employer] macros. The entry has been reviewed and there may still exist sound alike word errors. Kush Miller MD - 11/06/2018 8:[address] [facility] Service: Hospitalist Progress Note Pt: Sylvie [...] agitaitation and psychiatry was consulted. Her psychiatry DUCT MAKER was also contacted and she was restarted [...] PLT 529* 505* 421* Recent Labs Lab 11/06/1840811/05/185 11/04/18 0353 NA 142 141 145 K 3.9 [...] hours. No results for input(s): PHART, PO2ART, [id number], [id number], BEART in the last 168 hours. No results for input(s): APTT, INR, PTT in the last 168 hours. No results for input(s): TSH in the last 168 hours. Invalid input(s): T3FREE, FREET4 No results for input(s): TROPONINT in the last 168 hours. Invalid input(s): CKTOTAL, TROPONINI, CKMBINDEX Microbiology Results (72 hrs) Procedure Component Value Units Date/Time Culture, Respiratory, Lower, Smear [[id number]] Collected: 10/29/181728 Order Status: Completed Lab Status: [...] HELD 48 HOURS. RESULT Testing performed at [facility], [address] [place] [id number] Comment: Testing performed at [facility], [address] [place] [id number] RADIOLOGY: Recent Results (from the past 360 [...] hip prostheses appear unremarkable. Signed by: Korina Anh Shawn Sign Date/Time: 10/27/2018 11:57 AM XR [...] study. Depression/anxiety/ptsd - 11/03/18 Discussed patient with [facility] [phone]. She has a diagnosis o f PTSD [...] and managing patient and counseling/coordination. Dictation software, Ctrax, used which may contain error for similar sounding words even af ter review. Personal communication requested for any clarification. Portions of this chart may have been copied from previous notes for continuity of care purp ose iTerri christian RN - 11/05/2018 6:19 PM PDTEnd of shift review complete. oshi, MIGDALIA Swan - 11/05/2018 10:[address] [facility] Service: Orthopedic Surgery Progress Note Hospital [...] per ortho standpoint - Planned transfer to [facility] MIGDALIA Thompson 11/05/2018 10:52 MIGDALIA Thompson has created this entry using [employer]ognition [employer] and [employer] macros. The entry has been reviewed and there may still exist sound alike word errors. Kush Miller MD - 11/05/2018 9:[address] [facility] Service: Hospitalist Progress Note Pt: Sylvie Ramsey AGE/SEX: 48 y.o. female ROOM: [facility]/9119- : 1970 PCP: No Physician on file [...] agitaitation and psychiatry was consulted. Her psychiatry DUCT MAKER was also contacted and she was restarted [...] Oral 69 22 92 % 11/04/18 1125 123/ 69 22 94 % I&O Detailed Table: [...] hours. No results for input(s): PHART, PO2ART, [id number], [id number], BEART in the last 168 hours. No results for input(s): APTT, INR, PTT in the last 168 hours. No results for input(s): TSH in the last 168 hours. Invalid input(s): T3FREE, FREET4 No results for input(s): TROPONINT in the last 168 hours. Invalid input(s): CKTOTAL, TROPONINI, CKMBINDEX Microbiology Results (72 hrs) Procedure Component Value Units Date/Time Culture, Respiratory, Lower, Smear [[id number]] Collected: 10/29/181728 Order Status: Completed Lab Status: [...] HELD 48 HOURS. RESULT Testing performed at [facility], [address] [place] [address] Comment: Testing performed at [facility], [address] [place] [address] RADIOLOGY: Recent Results (from the past 360 [...] study. Depression/anxiety/ptsd - 11/03/18 Discussed patient with [facility] [phone]. She has a diagnosis o f PTSD [...] and managing patient and counseling/coordination. Dictation software, Ctrax, used which may contain error for similar sounding words even af ter review. Personal communication requested for any clarification. Portions of this chart may have been copied from previous notes for continuity of care purp ose Romana Hubbard RN - 11/05/2018 6:29 AM PDTPt has been stable and [facility]. Cooperative with all care. High flow O2 requirements have remained unchanged from previous shift. Chart check completed. Shanice Elizabeth RN - 11/04/2018 5:56 PM PDTSepsis team signing off. Please call with any questions/concerns. [phone]. Shanice Rahman RN P PREMStLala elizabeth RN [...] w/RN. Pt lying on bed, awak e. elvia intro'd self, asked how pt doing. She said, "Doing fine, thanks for coming by." elvia e xplained detention attendant availability days & nights if needed. Pt thanked [facility]. Chaplain David Greeney Dnoovan Belle PA - 11/04/2018 1:[address] [facility] Service: Orthopedic Surgery Progress Note Hospital [...] MIGDALIA Thompson has created this entry using [employer] and [employer] macros. The entry has been reviewed and there may still exist sound alike word errors. Kush Miller MD - 11/04/2018 11:[address] [facility] Service: Hospitalist Progress Note Pt: Sylvie Ramsey AGE/SEX: 48 y.o. female ROOM: [facility]19-01 : 1970 PCP: No [...] PLT 421* 410* 390 Recent Labs Lab 11/04/1835211/03/188 11/02/18 0408 NA 145 140 139 K [...] hours. No results for input(s): PHART, PO2ART, SBS6VQC, W4YCXQRP, BEART in the last 168 hours. No results for input(s): APTT, INR, PTT in the last 168 hours. No results for input(s): TSH in the last 168 hours. Invalid input(s): T3FREE, FREET4 No results for input(s): TROPONINT in the last 168 hours. Invalid input(s): CKTOTAL, TROPONINI, CKMBINDEX Microbiology Results (72 hrs) Procedure Component Value Units Date/Time Culture, Respiratory, Lower, Smear [[id number]] Collected: 10/29/181728 Order Status: Completed Lab Status: [...] HELD 48 HOURS. RESULT Testing performed at [facility], [address] [place] [address] Comment: Testing performed at [facility], [facility] [place] [address] RADIOLOGY: Recent Results (from the past 360 [...] study. Depression/anxiety/ptsd - 11/03/18 Discussed patient with [facility] [phone]. She has a diagnosis o f PTSD [...] coordination of care, seeing and managing pa bozenaanette, review of data, coordination with staff, coordination with involved consultants, and including any scheduled multidisciplinary rounding focused on the patient with 50 percent or more spent seeing and managing patient and counseling/coordination. Dictation software, Ctrax, used which may contain error for similar [...] to have regu lar p.o. Intake. Per franchise sales manager note oxygenation is improving. 1. Pain in prosthetic joint, initial encounter ([facility]) 2. Mechanical complication of prosthetic knee implant, initial encounter ([facility]) 3. Mechanical instability of hip prosthesis ([facility]) 4. Shortness of breath 5. Acute respiratory failure with hypoxia ([facility]) Past Medical History: Diagnosis Date Anxiety Anxious depression Arthralgia Arthritis Asthma not using inhalers DDD (degenerative disc disease), lumbar Deliberate self-cutting history of Depression Heartburn Hemorrhage of gastrointestinal tract 2015 upper and lower due ulcers Morbid obesity with BMI of 50.0-59.9, adult ([facility]) Pain in prosthetic joint ([facility]) with instability Panic attacks states can [...] 1,000 mg 1,000 mg Oral Q2H PRN Miha rod MD 1,000 mg at 10/27/18 0924 [...] Francoise Duarte RN - 11/03/2018 10:39 AM Jesuista ball called this am at approx 0900. Pt breaking dishes, t hrowing full water pitcher, and yelling profanities at pt d/t therapist attempting to work w ith pt doing mobility exercises. Security, risk, pcc, stepdown manager spring, primary md, and lead rn present with bedside rn. Pt crying and yelling that she doesn't want to "be here". Per p malia disruptive/violent pt paperwork filled out. Situation and pt expectations reviewed by and manager spring with pt. Sitter at bedside currently. Ever [...] the room, pt through breakfast tray at [facility]. Dada mares called by licensed staff mft. pt. also stated during session everything we [...] might be different f rom the original. [facility] Service: Hospitalist Progress Note Pt: Sylvie [...] Behavior is normal. LABS: Recent Labs Lab 11/03/1835711/02/1840711/01/18 0417 10/28/18 0835 WBC 19.27* 19.10* 14.67* < > 15.60* HGB 11.0* 10.8* 11.1* < > 11.1* HCT 33.7* 32.7* 33.3* < > 33.1* PLT 410* 390 380 < > 296 MONOPCT -- -- -- -- 2.27 < > = values in this interval not displayed. Recent Labs Lab 11/03/1835711/02/1840711/01/187 NA 140 139 140 K 4.0 3.6 4.0 CL 99 97* 100 CO2 39* 38* 36* BUN 39* 31* 24 CALCIUM 8.1* 8.7 8.5 Phosphorus: Lab Results Component Value Date PHOS 3.4 10/31/2018 No results for input(s): LABALBU in the last 168 hours. Recent Labs Lab 11/03/1835711/02/1840711/01/187 MG 2.7* 2.8* 2.7* No results for input(s): AMYLASE in the last 168 hours. No results for input(s): PHART, PO2ART, BYY5UUY, O0ONQGFQ, BEART in the last 168 hours. No results for input(s): APTT, INR, PTT in the last 168 hours. No results for input(s): TSH, T3FREE in the last 168 hours. Invalid input(s): FREET4 No results for input(s): TROPONINT in the last 168 hours. Invalid input(s): CKTOTAL, TROPONINI, CKMBINDEX Microbiology Results (72 hrs) Procedure Component Value Units Date/Time Culture, Respiratory, Lower, Smear [[id number]] Collected: 10/29/181728 Order Status: Completed Lab Status: [...] HELD 48 HOURS. RESULT Testing performed at [facility], [address] [place] [address] Comment: Testing performed at [facility], [address] [place] [address] RADIOLOGY: Recent Results (from the past 360 [...] sleep study. Depression/anxiety/ptsd - Discussed patient with [facility] [phone]. She has a diagnosis of PTSD a [...] making capacity - consulted psychiatry. Appreciate recs. manager primary to attempt to obtain more information from family. Kush Ge MD 11/03/2018 7:44 Greater than 35 minutes spent today overall in coordination of care, seeing and managing pa tient, review of data, coordination with staff, coordination with involved consultants, and including any scheduled multidisciplinary rounding focused on the patient with 50 percent or more spent seeing and managing patient and counseling/coordination. Dictation software, Ctrax, used which may contain error for similar [...] to be transfer to a hospital in [place], or that she was going to call the police and maxim the hospital. , lead nurse, pillowcase maker and risk not ified. Pt remained calmed after risk talked to her. She continues on BiPAP and hi flow with meals. PRN norco given. Chart check complete. Sanjuanita Peters RN milio Moreno, PA-C - 11/02/2018 4:21 PM PDTFormatting of this note might be different from e original. Patient pain is well controlled and is toe-touch weight bearing. She continues physical . Is on BiPAP at this time and continue to be managed by franchise sales manager and hospitalist . No new orthopedics events 1. Pain in prosthetic joint, initial encounter ([facility]) 2. Mechanical complication of prosthetic knee implant, initial encounter ([facility]) 3. Mechanical instability of hip prosthesis ([facility]) 4. Shortness of breath 5. Acute respiratory failure with hypoxia ([facility]) Past Medical History: Diagnosis Date Anxiety Anxious depression Arthralgia Arthritis Asthma not using inhalers DDD (degenerative disc disease), lumbar Deliberate self-cutting history of Depression Heartburn Hemorrhage of gastrointestinal tract 2015 upper and lower due ulcers Morbid obesity with BMI of 50.0-59.9, adult ([facility]) Pain in prosthetic joint ([facility]) with instability Panic attacks states can [...] weightbearing Continue DVT prophylaxis Continue hospitalist and franchise sales manager management for comorbidities plan will be to eventua lly go to rehab or SNF once cleared by specialist Emilio Moreno 11/02/2018 Moses Solorzano, PT - 11/02/2018 12:59 PM PDT 11/02/18 1259 PT Visit Summary PT Visit Type Missed Visit (patient unavailable) (Tele psych consult in progress) Next Visit Information 11/02, LTHA, 2PA Kush Miller MD - 11/02/2018 7:[address] [facility] Service: Hospitalist Progress Note Pt: Sylvie [...] hours. No results for input(s): PHART, PO2ART, IHE3HTJ, E3CZWSNI, BEART in the last 168 hours. No results for input(s): APTT, INR, PTT in the last 168 hours. No results for input(s): TSH, T3FREE in the last 168 hours. Invalid input(s): FREET4 No results for input(s): TROPONINT in the last 168 hours. Invalid input(s): CKTOTAL, TROPONINI, CKMBINDEX Microbiology Results (72 hrs) Procedure Component Value Units Date/Time Culture, Respiratory, Lower, Smear [[id number]] Collected: 10/29/181728 Order Status: Completed Lab Status: [...] HELD 48 HOURS. RESULT Testing performed at [facility], [address] [place] [address] Comment: Testing performed at [facility], [address] [place] [address] RADIOLOGY: Recent Results (from the past 360 [...] making capacity - consulted psychiatry. Appreciate recs. manager primary to attempt to obtain more information from family. Kush Ge MD 11/02/2018 7:44 Greater than 35 minutes spent today overall in coordination of care, seeing and managing pa tient, review of data, coordination with staff, coordination with involved consultants, and including any scheduled multidisciplinary rounding focused on the patient with 50 percent or more spent seeing and managing patient and counseling/coordination. Dictation software, Ctrax, used which may contain error for similar [...] continues to be managed by hospitalist and franchise sales manager and is currently on BiPAP 1. Pain in prosthetic joint, initial encounter ([facility]) 2. Mechanical complication of prosthetic knee implant, initial encounter ([facility]) 3. Mechanical instability of hip prosthesis (H[facility]) 4. Shortness of breath 5. Acute respiratory failure with hypoxia ([facility]) Past Medical History: Diagnosis Date Anxiety Anxious depression Arthralgia Arthritis Asthma not using inhalers DDD (degenerative disc disease), lumbar Deliberate self-cutting history of Depression Heartburn Hemorrhage of gastrointestinal tract 2015 upper and lower due ulcers Morbid obesity with BMI of 50.0-59.9, adult ([facility]) Pain in prosthetic joint (HCC) with [...] PRN Miah Monique MD 10 mg at 10/31/180 lactulose liquid 30 mL 30 mL Oral [...] Miller MD - 11/01/2018 7:[address] [facility] Service: Hospitalist Progress Note Pt: Sylvie [...] (99.3 F) Oral 89 24 95 % 08/27/19 2027 127/64 36.9 C (98.5 F) Axillary [...] displayed. Recent Labs Lab 11/01/187 10/31/18 1815 10/31/1841310/30/188 NA 140 -- 141 141 K 4.0 [...] hours. No results for input(s): PHART, PO2ART, XOY4VKG, N0DVEGKH, BEART in the last 168 hours. No results for input(s): APTT, INR, PTT in the last 168 hours. No results for input(s): TSH, T3FREE in the last 168 hours. Invalid input(s): FREET4 No results for input(s): TROPONINT in the last 168 hours. Invalid input(s): CKTOTAL, TROPONINI, CKMBINDEX Microbiology Results (72 hrs) Procedure Component Value Units Date/Time Culture, Respiratory, Lower, Smear [[id number]] Collected: 10/29/181728 Order Status: Completed Lab Status: [...] HELD 48 HOURS. RESULT Testing performed at [facility], [address] [place] [address] Comment: Testing performed at [facility], [address] [place] [address] RADIOLOGY: Recent Results (from the past 360 [...] and managing patient and counseling/coordination. Dictation software, Ctrax, used which may contain error for similar sounding words even af ter review. Personal communication requested for any clarification. Portions of this chart may have been copied from previous notes for continuity of care purp ose uJan Gonzales RN - 11/01/2018 6:52 AM PDTPt [...] 1. Pain in prosthetic joint, initial encounter ([facility]) 2. Mechanical complication of prosthetic knee [...] change in ortho plan Emilio Moreno 10/31/2018 irkit, Sara Crystal RN - 10/31/2018 8:23 AM PDTChart reviewed. Kush Miller MD - 10/31/2018 8:[address] [facility] Service: Hospitalist Progress Note Pt: Sylvie [...] hours. No results for input(s): PHART, PO2ART, PHC8MPF, G7TLSHDM, BEART in the last 168 hours. No results for input(s): APTT, INR, PTT in the last 168 hours. No results for input(s): TSH, T3FREE in the last 168 hours. Invalid input(s): FREET4 No results for input(s): TROPONINT in the last 168 hours. Invalid input(s): CKTOTAL, TROPONINI, CKMBINDEX Microbiology Results (72 hrs) Procedure Component Value Units Date/Time Culture, Respiratory, Lower, Smear [[id number]] Collected: 10/29/181728 Order Status: Completed Lab Status: [...] HELD 48 HOURS. RESULT Testing performed at [facility], [address] [place] [address] Comment: Testing performed at [facility], [address] [place] [address] RADIOLOGY: Recent Results (from the past 360 [...] 1. Pain in prosthetic joint, initial encounter ([facility]) 2. Mechanical complication of prosthetic knee implant, initial encounter ([facility]) 3. Mechanical instability of hip prosthesis ([facility]) 4. Shortness of breath 5. Acute [...] 40 mg 40 mg Oral BID AC Harapl Fine MD 40 mg at 10/30/18 0616 [...] note might be different from the origin [facility] Service: Hospitalist Progress Note Hospital Day: [...] normal mood and affect. DATA Recent Labs 10/30/1841710/29/189 WBC 13.87* 15.10* HGB 10.9* 10.8* HCT 32.6* 31.3* PLT 385 341 MCV 90.7 90.6 Recent Labs Lab 10/30/188 10/29/18 0439 10/28/18 0835 NA 141 138 -- [...] for input(s): IRON, TIBC, PCTSAT, FERRITIN, TSH, [id number], FOLATE in the last 168 hours. Recent [...] continue nicotine patch. Deconditioning. Physical therapy recommended prison facility when stable. Plan discussed with patient. All questions were answered . All data was reviewed. Disposition: Inpatient Code Status: Full Code Yuki Pruett MD 10/30/2018 8:02 This entry has been created using MathZee Speech Recognition software and EPIC macro s. [...] Wells ARNP - 10/29/2018 7:[address] [facility] Service: Orthopedic Surgery Progress Note 10/29/2018 [...] note might be different from the origin [facility] Service: Hospitalist Progress Note Hospital Day: [...] for input(s): IRON, TIBC, PCTSAT, FERRITIN, TSH, [id number], FOLATE in the last 168 hours. Recent [...] 7:39 This entry has been created using MathZee Speech Recognition software and Crossbar s. The entry has been reviewed and there may still exist sound alike word errors. Víctor Wells ARNP - 10/28/2018 5:[address] [facility] Service: Orthopedic Surgery Progress Note 10/28/2018 [...] ARTHROPLASTY P)continue medical care per hospitalist and franchise sales manager. Weight bear as tolerated LLE. Continue PT [...] note might be different from the [facility] Service: Hospitalist Progress Note Hospital Day: [...] for input(s): IRON, TIBC, PCTSAT, FERRITIN, TSH, [id number], FOLATE in the last 168 hours. Recent [...] 10:29 This entry has been created using MathZee Speech Recognition software and ZenoLink. The entry has been reviewed and there [...] migh t be different from the original. [facility] Adult Hospitalist Event Note Hospital Day: [...] that developed this am after returning from [facility]. Denies dizziness, nausea, cough, chest pain, abdominal pain vomiting or headache 1. Pain in prosthetic joint, initial encounter ([facility]) 2. Mechanical complication of prosthetic knee implant, initial encounter ([facility]) 3. Mechanical instability of hip prosthesis ([facility]) Past Medical History: Diagnosis Date Anxiety Anxious depression Arthralgia Arthritis Asthma not using inhalers DDD (degenerative disc disease), lumbar Deliberate self-cutting history of Depression Heartburn Hemorrhage of gastrointestinal tract 2015 upper and lower due ulcers Morbid obesity with BMI of 50.0-59.9, adult ([facility]) Pain in prosthetic joint ([facility]) with instability Panic attacks states can [...] 1-2 spray 1-2 spray Mouth/Throat Q3H PRN Maih Monique MD 2 spray at 10/27/18 0628 [...] Community Support Services Current Outpt/Agency/Support Groups: (P) correction (specify) Community Agency Name: Other Resources: Discharge [...] 1. Pain in prosthetic joint, initial encounter ([facility]) 2. Mechanical complication of prosthetic knee implant, initial encounter ([facility]) 3. Mechanical instability of hip prosthesis ([facility]) Past Medical History: Diagnosis Date Anxiety Anxious depression Arthralgia Arthritis Asthma not using inhalers DDD (degenerative disc disease), lumbar Deliberate self-cutting history of Depression Heartburn Hemorrhage of gastrointestinal tract 2015 upper and lower due ulcers Morbid obesity with BMI of 50.0-59.9, adult ([facility]) Pain in prosthetic joint ([facility]) with instability Panic attacks states can [...] 30 mL 30 mL Oral Daily PRN iMah Monique MD [START ON 10/26/2018] magnesium hydroxide [...] | | | | | | encounter ([facility]) | | | | | | [...] | | | | PDT | encounter ([facility]) | results section. | | | | | Mechanical | | | | | | complication of | | | | | | prosthetic knee | | | | | | implant, initial | | | | | | encounter ([facility]) | | + +--------+ + + + | CULTURE, TISSUE, | Routin | 10/24/2018 | Pain in prosthetic | Results for this | | SMEAR, WITH | e | 4:41 PM | joint, initial | procedure are in the | | ANAEROBES | | PDT | encounter ([facility]) | results section. | | | [...] at | | | | | | [facility], [address] [facility] | | | | | | [place] | | | | | | [address] | | | | + + + + + + + + | Specimen | + + | Blood | + + + + + + + | Performing | Address | City/State/Zipcode | Phone Number | | Organization | | | | + + + + + | [facility] | [address] | [place] [address] | [phone] | + + + + + Magnesium (11/09/2018 4:28 AM PDT) + + + + + + | Component | Value | Ref Range | Performed | Pathologist | | | | | At | Signature | + + + + + + | Magnesium | 2.5 (H)Comment: SPECIMEN | 1.7 - 2.4 mg/dL | [facility] | | | | SLIGHTLY | | LABORATORY | | | | HEMOLYZEDTesting | | | | | | performed at [facility], [address] | | | | | | [facility], | | | | | | [place] [address] | | | | + + + + + + + + | Specimen | + + | Blood | + + + + + + + | Performing | Address | City/State/Zipcode | Phone Number | | Organization | | | | + + + + + | [facility] | [address] | [place] [address] | [phone] | + + + + + Basic [...] | | | | | | [facility], | | | | | | [place] [address] | | | | + + + + + + + + | Specimen | + + | Blood | + + + + + + + | Performing | Address | City/State/Zipcode | Phone Number | | Organization | | | | + + + + + | [facility] | [address] | [place] [address] | [phone] | + + + + + CBC [...] | | | Absolute | performed at [facility], [address] | K/uL | LABORATORY | | | | [place], | | | | | | [place] [address] | | | | + + + + + + + + | Specimen | + + | Blood | + + + + + + + | Performing | Address | City/State/Zipcode | Phone Number | | Organization | | | | + + + + + | [facility] | [address] | [place] [address] | [phone] | + + + + + Magnesium (11/08/2018 3:56 AM PDT) + + + + + + | Component | Value | Ref Range | Performed | Pathologist | | | | | At | Signature | + + + + + + | Magnesium | 2.7 (H)Comment: Testing | 1.7 - 2.4 mg/dL | [facility] | | | | performed at [facility], [address] | | LABORATORY | | | | [place], | | | | | | [place] [address] | | | | + + + + + + + + | Specimen | + + | Blood | + + + + + + + | Performing | Address | City/State/Zipcode | Phone Number | | Organization | | | | + + + + + | [facility] | [address] | [place] [address] | [phone] | + + + + + Basic [...] | | | | | performed at [facility], [address] | | | | | | [place], | | | | | | [place] [address] | | | | + + + + + + + + | Specimen | + + | Blood | + + + + + + + | Performing | Address | City/State/Zipcode | Phone Number | | Organization | | | | + + + + + | [facility] | [address] | [place] [address] | [phone] | + + + + + CBC [...] at | | | | | | [facility], [address] [facility] | | | | | | [place] | | | | | | [address] | | | | + + + + + + + + | Specimen | + + | Blood | + + + + + + + | Performing | Address | City/State/Zipcode | Phone Number | | Organization | | | | + + + + + | [facility] | [address] | [place] [address] | [phone] | + + + + + Magnesium (11/07/2018 4:11 AM PDT) + + + + + + | Component | Value | Ref Range | Performed | Pathologist | | | | | At | Signature | + + + + + + | Magnesium | 2.5 (H)Comment: Testing | 1.7 - 2.4 mg/dL | [facility] | | | | performed at [facility], [address] | | LABORATORY | | | | [place], | | | | | | [place] [address] | | | | + + + + + + + + | Specimen | + + | Blood | + + + + + + + | Performing | Address | City/State/Zipcode | Phone Number | | Organization | | | | + + + + + | [facility] | [address] | [place] [address] | [phone] | + + + + + Basic [...] | | | | | performed at [facility], [address] | | | | | | [facility], | | | | | | [place] [address] | | | | + + + + + + + + | Specimen | + + | Blood | + + + + + + + | Performing | Address | City/State/Zipcode | Phone Number | | Organization | | | | + + + + + | [facility] | [address] | [place] [address] | [phone] | + + + + + Procalcitonin [...] | | | | | | at [facility];[address] [place] [address] | | | | | | [facility];[place] [address] | | | | + + + + + + + + | Specimen | + + | Blood | + + + + + + + | Performing | Address | City/State/Zipcode | Phone Number | | Organization | | | | + + + + + | [facility] | [address] | [place] [address] | [phone] | + + + + + CBC [...] [place] | | | | | | [address] | | | | + + + + + + + + | Specimen | + + | Blood | + + + + + + + | Performing | Address | City/State/Zipcode | Phone Number | | Organization | | | | + + + + + | [facility] | [address] | [place] [address] | [phone] | + + + + + Magnesium (11/06/2018 4:09 AM PDT) + + + + + + | Component | Value | Ref Range | Performed | Pathologist | | | | | At | Signature | + + + + + + | Magnesium | 2.7 (H)Comment: Testing | 1.7 - 2.4 mg/dL | [facility] | | | | performed at [facility], [address] | | LABORATORY | | | | [place], | | | | | | [place] [address] | | | | + + + + + + + + | Specimen | + + | Blood | + + + + + + + | Performing | Address | City/State/Zipcode | Phone Number | | Organization | | | | + + + + + | [facility] | [address] | [place] [address] | [phone] | + + + + + Basic [...] | | | | | performed at [facility], [address] | | | | | | [place], | | | | | | [place] [address] | | | | + + + + + + + + | Specimen | + + | Blood | + + + + + + + | Performing | Address | City/State/Zipcode | Phone Number | | Organization | | | | + + + + + | [facility] | [address] | [place] [address] | [phone] | + + + + + CBC [...] | | | | [facility], [address] [facility] | | | | | | [place] | | | | | | [address] | | | | + + + + + + + + | Specimen | + + | Blood | + + + + + + + | Performing | Address | City/State/Zipcode | Phone Number | | Organization | | | | + + + + + | [facility] | [address] | [place] [address] | [phone] | + + + + + Magnesium [...] | | | | | [place] [address] | | | | + + + + + + + + | Specimen | + + | Blood | + + + + + + + | Performing | Address | City/State/Zipcode | Phone Number | | Organization | | | | + + + + + | [facility] | [address] | [place] [address] | [phone] | + + + + + Basic [...] | | | | | performed at [facility], [address] | | | | | | [facility], | | | | | | [place] [address] | | | | + + + + + + + + | Specimen | + + | Blood | + + + + + + + | Performing | Address | City/State/Zipcode | Phone Number | | Organization | | | | + + + + + | [facility] | [address] | [place] [address] | [phone] | + + + + + CBC [...] at | | | | | | [facility], [address] [facility] | | | | | | [place] | | | | | | [address] | | | | + + + + + + + + | Specimen | + + | Blood | + + + + + + + | Performing | Address | City/State/Zipcode | Phone Number | | Organization | | | | + + + + + | [facility] | [address] | [place] [address] | [phone] | + + + + + Magnesium (11/04/2018 3:53 AM PDT) + + + + + + | Component | Value | Ref Range | Performed | Pathologist | | | | | At | Signature | + + + + + + | Magnesium | 2.7 (H)Comment: Testing | 1.7 - 2.4 mg/dL | [facility] | | | | performed at [facility], [address] | | LABORATORY | | | | [place], | | | | | | [place] [address] | | | | + + + + + + + + | Specimen | + + | Blood | + + + + + + + | Performing | Address | City/State/Zipcode | Phone Number | | Organization | | | | + + + + + | [facility] | [address] | [place] [address] | [phone] | + + + + + Basic [...] | | | | | performed at [facility], [address] | | | | | | [facility], | | | | | | [place] [address] | | | | + + + + + + + + | Specimen | + + | Blood | + + + + + + + | Performing | Address | City/State/Zipcode | Phone Number | | Organization | | | | + + + + + | [facility] | [address] | [place] [address] | [phone] | + + + + + CBC [...] | | | | | performed at [facility], [address] | | | | | | [address], | | | | | | [place] [address] | | | | + + + + + + + + | Specimen | + + | Blood | + + + + + + + | Performing | Address | City/State/Zipcode | Phone Number | | Organization | | | | + + + + + | [facility] | [address] | [place] [address] | [phone] | + + + + + Magnesium [...] | | | | | [place] [address] | | | | + + + + + + + + | Specimen | + + | Blood | + + + + + + + | Performing | Address | City/State/Zipcode | Phone Number | | Organization | | | | + + + + + | [facility] | [address] | [place] [address] | [phone] | + + + + + Basic [...] | | | | | | MDRD [facility] traceable | | | | | | equation.Testing | | | | | | performed at [facility], [address] | | | | | | [address] [facility], | | | | | | [place] [address] | | | | + + + + + + + + | Specimen | + + | Blood | + + + + + + + | Performing | Address | City/State/Zipcode | Phone Number | | Organization | | | | + + + + + | [facility] | [address] | [place] [address] | [phone] | + + + + + CBC [...] [place] | | | | | | [address] | | | | + + + + + + + + | Specimen | + + | Blood | + + + + + + + | Performing | Address | City/State/Zipcode | Phone Number | | Organization | | | | + + + + + | [facility] | [address] | [place] [address] | [phone] | + + + + + Magnesium (11/02/2018 4:08 AM PDT) + + + + + + | Component | Value | Ref Range | Performed | Pathologist | | | | | At | Signature | + + + + + + | Magnesium | 2.8 (H)Comment: Testing | 1.7 - 2.4 mg/dL | [facility] | | | | performed at [facility], [address] | | LABORATORY | | | | [address], | | | | | | [place] [address] | | | | + + + + + + + + | Specimen | + + | Blood | + + + + + + + | Performing | Address | City/State/Zipcode | Phone Number | | Organization | | | | + + + + + | [facility] | [address] | [place] [address] | [phone] | + + + + + Basic [...] | | | | | performed at [facility], [address] | | | | | | [address], | | | | | | [place] [address] | | | | + + + + + + + + | Specimen | + + | Blood | + + + + + + + | Performing | Address | City/State/Zipcode | Phone Number | | Organization | | | | + + + + + | [facility] | [address] | [place] [address] | [phone] | + + + + + CBC [...] at | | | | | | [facility], [address] | | | | | | [place] | | | | | | [address] | | | | + + + + + + + + | Specimen | + + | Blood | + + + + + + + | Performing | Address | City/State/Zipcode | Phone Number | | Organization | | | | + + + + + | [facility] | [address] | [place] [address] | [phone] | + + + + + Magnesium (11/01/2018 4:17 AM PDT) + + + + + + | Component | Value | Ref Range | Performed | Pathologist | | | | | At | Signature | + + + + + + | Magnesium | 2.7 (H)Comment: Testing | 1.7 - 2.4 mg/dL | [facility] | | | | performed at [facility], [address] | | LABORATORY | | | | [address], | | | | | | [place] [address] | | | | + + + + + + + + | Specimen | + + | Blood | + + + + + + + | Performing | Address | City/State/Zipcode | Phone Number | | Organization | | | | + + + + + | [facility] | [address] | [place] [address] | [phone] | + + + + + Basic [...] | | | | | performed at [facility], [address] | | | | | | [facility], | | | | | | [place] [address] | | | | + + + + + + + + | Specimen | + + | Blood | + + + + + + + | Performing | Address | City/State/Zipcode | Phone Number | | Organization | | | | + + + + + | [facility] | [address] | [place] [address] | [phone] | + + + + + ANTHONY Profile, Reflex (11/01/2018 4:17 AM PDT) + + + + + + | Component | Value | Ref Range | Performed | Pathologist | | | | | At | Signature | + + + + + + | ANTHONY Screen, | NegativeComment: Testing | Negative | [facility] | | | Qual | performed at [facility] | | LABORATORY | | | | [place], [address] | | | | | | [place] [address] | | | | + + + [...] | | | | | with both VT-3 and | | | | | | [...] | | 3 Antibody | performed by [facility], | | LABORATORY | | | | [address], | | | | | | [facility] [address] | | | | + + + + + + + + | Specimen | + + | Blood | + + + + + + + | Performing | Address | City/State/Zipcode | Phone Number | | Organization | | | | + + + + + | [facility] | [address] | [place] [address] | [phone] | + + + + + Procalcitonin (11/01/2018 4:17 AM PDT) + + + + + + | Component | Value | Ref Range | Performed | Pathologist | | | | | At | Signature | + + + + + + | PROCALCITON | 1.18 (H)Comment: | <0.5 ng/mL | [facility] | | | IN | INTERPRETIVE | [...] | | | | | | at [facility];[address] [facility] | | | | | | [facility];[place] [address] | | | | + + + + + + + + | Specimen | + + | Blood | + + + + + + + | Performing | Address | City/State/Zipcode | Phone Number | | Organization | | | | + + + + + | [facility] | [address] | [place] [address] | [phone] | + + + + + Potassium (10/31/2018 6:15 PM PDT) + + + + + + | Component | Value | Ref Range | Performed | Pathologist | | | | | At | Signature | + + + + + + | K | 3.8Comment: Testing | 3.5 - 4.9 | [facility] | | | | performed at [facility];[address] | mmol/L | LABORATORY | | | | [address];[place], [place] | | | | | | [address] | | | | + + + + + + + + | Specimen | + + | Blood | + + + + + + + | Performing | Address | City/State/Zipcode | Phone Number | | Organization | | | | + + + + + | [facility] | [address] | [place] [address] | [phone] | + + + + + CBC [...] LABORATORY | | | | performed at [facility], [address] | | | | | | [place] [place], | | | | | | [place] [address] | | | | | | | | | | + + + + + + + + | Specimen | + + | Blood | + + + + + + + | Performing | Address | City/State/Zipcode | Phone Number | | Organization | | | | + + + + + | [facility] | [address] | [place] [address] | [phone] | + + + + + Magnesium (10/31/2018 4:14 AM PDT) + + + + + + | Component | Value | Ref Range | Performed | Pathologist | | | | | At | Signature | + + + + + + | Magnesium | 2.3Comment: Testing | 1.7 - 2.4 mg/dL | [facility] | | | | performed at [facility], [address] | | LABORATORY | | | | [address], | | | | | | [place] [address] | | | | + + + + + + + + | Specimen | + + | Blood | + + + + + + + | Performing | Address | City/State/Zipcode | Phone Number | | Organization | | | | + + + + + | [facility] | [address] | [place] [address] | [phone] | + + + + + Basic [...] | >60Comment: GFR <60: | >60 | [facility] | | | GFR | [...] | | | | | | MDRD IDTN traceable | | | | | | equation.Testing | | | | | | performed at [facility], [address] | | | | | | [facility], | | | | | | [place] [address] | | | | + + + + + + + + | Specimen | + + | Blood | + + + + + + + | Performing | Address | City/State/Zipcode | Phone Number | | Organization | | | | + + + + + | [facility] | [address] | [place] [address] | [phone] | + + + + + Phosphorus (10/31/2018 4:14 AM PDT) + + + + + + | Component | Value | Ref Range | Performed | Pathologist | | | | | At | Signature | + + + + + + | Phosphorus | 3.4Comment: Testing | 2.3 - 4.8 mg/dL | [facility] | | | | performed at [facility], [address] | | LABORATORY | | | | [address], | | | | | | [place] [address] | | | | + + + + + + + + | Specimen | + + | Blood | + + + + + + + | Performing | Address | City/State/Zipcode | Phone Number | | Organization | | | | + + + + + | [facility] | [address] | [place] [address] | [phone] | + + + + + XR [...] LABORATORY | | | | performed at [facility], [address] | | | | | | [address], | | | | | | [place] [address] | | | | | | | | | | + + + + + + + + | Specimen | + + | Blood | + + + + + + + | Performing | Address | City/State/Zipcode | Phone Number | | Organization | | | | + + + + + | [facility] | [address] | [place] [address] | [phone] | + + + + + Magnesium (10/30/2018 4:18 AM PDT) + + + + + + | Component | Value | Ref Range | Performed | Pathologist | | | | | At | Signature | + + + + + + | Magnesium | 2.3Comment: Testing | 1.7 - 2.4 mg/dL | [facility] | | | | performed at [facility], [address] | | LABORATORY | | | | [address], | | | | | | [place] [address] | | | | + + + + + + + + | Specimen | + + | Blood | + + + + + + + | Performing | Address | City/State/Zipcode | Phone Number | | Organization | | | | + + + + + | [facility] | [address] | [place] [address] | [phone] | + + + + + Basic [...] | >60Comment: GFR <60: | >60 | [facility] | | | GFR | [...] | | | | | | MDRD IDTN traceable | | | | | | equation.Testing | | | | | | performed at [facility], [address] | | | | | | [facility], | | | | | | [place] [address] | | | | + + + + + + + + | Specimen | + + | Blood | + + + + + + + | Performing | Address | City/State/Zipcode | Phone Number | | Organization | | | | + + + + + | [facility] | [address] | [place] [address] | [phone] | + + + + + Vitamin D, Deficiency Screen (25-Hydroxy) (10/30/2018 4:18 AM PDT) + + + + + + | Component | Value | Ref Range | Performed | Pathologist | | | | | At | Signature | + + + + + + | Vit D, | <12 (L)Comment: <20 | 30 - 150 ng/mL | [facility] | | | 25-Hydroxy | [...] | | | | | performed at [facility], [address] | | | | | | [facility], | | | | | | [place] [address] | | | | + + + + + + + + | Specimen | + + | Blood | + + + + + + + | Performing | Address | City/State/Zipcode | Phone Number | | Organization | | | | + + + + + | [facility] | [address] | [place] [address] | [phone] | + + + + + Culture, [...] | | | | [facility], [address] [facility] | | LABORATORY | | | | [place] | | | | | | [id number]: Testing | | | | | | performed at [facility], [address] | | | | | | [facility], | | | | | | [place] [address] | | | | + + + + + + + + | Specimen | + + | Body Fluid - Coughed | | sputum specimen | | (specimen) | + + + + + + + | Performing | Address | City/State/Zipcode | Phone Number | | Organization | | | | + + + + + | [facility] | [address] | [place] [address] | [phone] | + + + + + ECHO [...] Testing | 1.7 - 2.4 mg/dL | [facility] | | | | performed at [facility], [address] | | LABORATORY | | | | [address], | | | | | | [place] [address] | | | | + + + + + + + + | Specimen | + + | Blood | + + + + + + + | Performing | Address | City/State/Zipcode | Phone Number | | Organization | | | | + + + + + | [facility] | [address] | [place] [address] | [phone] | + + + + + Basic [...] 7.9 (L) | 8.5 - 10.5 | [facility] | | | | | mg/dL | LABORATORY | | + + + + + + | Estimated | >60Comment: GFR <60: | >60 | [facility] | | | GFR | [...] | | | | | | MDRD IDTN traceable | | | | | | equation.Testing | | | | | | performed at [facility], [address] | | | | | | [facility], | | | | | | [place] [address] | | | | + + + + + + + + | Specimen | + + | Blood | + + + + + + + | Performing | Address | City/State/Zipcode | Phone Number | | Organization | | | | + + + + + | [facility] | [address] | [place] [address] | [phone] | + + + + + CBC [...] at | | | | | | [facility], [address] [facility] | | | | | | [place] | | | | | | [address] | | | | + + + + + + + + | Specimen | + + | Blood | + + + + + + + | Performing | Address | City/State/Zipcode | Phone Number | | Organization | | | | + + + + + | [facility] | [address] | [place] [address] | [phone] | + + + + + VAS [...] | 1.59 (H)Comment: | <0.5 ng/mL | [facility] | [...] | | | | | | at [facility];[address] [place] [address] | | | | | | [facility];[place] [address] | | | | + + + + + + + + | Specimen | + + | Blood | + + + + + + + | Performing | Address | City/State/Zipcode | Phone Number | | Organization | | | | + + + + + | [facility] | [address] | [place] [address] | [phone] | + + + + + B [...] | | LABORATORY | | | | [facility];[address] | | | | | | [place] [address] | | | | + + + + + + + + | Specimen | + + | Blood | + + + + + + + | Performing | Address | City/State/Zipcode | Phone Number | | Organization | | | | + + + + + | [facility] | [address] | [place] [address] | [phone] | + + + + + Basic [...] | | | | | performed at [facility] | | | | | | [address];[place], [place] | | | | | | [address] | | | | + + + + + + + + | Specimen | + + | Blood | + + + + + + + | Performing | Address | City/State/Zipcode | Phone Number | | Organization | | | | + + + + + | [facility] | [address] | [place] [address] | [phone] | + + + + + CBC [...] | | | | | performed at [facility] | | | | | | [address];[place], [place] | | | | | | [address] | | | | + + + + + + + + | Specimen | + + | Blood | + + + + + + + | Performing | Address | City/State/Zipcode | Phone Number | | Organization | | | | + + + + + | [facility] | [address] | [place] [address] | [phone] | + + + + + CT [...] | >60Comment: GFR <60: | >60 | [facility] | | | GFR | [...] | | | | | performed at [facility];[address] | | | | | | [address];[place], [place] | | | | | | [address] | | | | + + + + + + + + | Specimen | + + | Blood | + + + + + + + | Performing | Address | City/State/Zipcode | Phone Number | | Organization | | | | + + + + + | [facility] | [address] | [place] [address] | [phone] | + + + + + CBC [...] [facility] | | | | performed at [facility], [address] | | LABORATORY | | | | [address], | | | | | | [place] [address] | | | | + + + + + + + + | Specimen | + + | Blood | + + + + + + + | Performing | Address | City/State/Zipcode | Phone Number | | Organization | | | | + + + + + | [facility] | [address] | [place] [address] | [phone] | + + + + + ECG [...] Testing | 34.0 - 46.0 % | [facility] | | | | performed at [facility], [address] | | LABORATORY | | | | [address], | | | | | | [place] [address] | | | | + + + + + + + + | Specimen | + + | Blood | + + + + + + + | Performing | Address | City/State/Zipcode | Phone Number | | Organization | | | | + + + + + | [facility] | [address] | [place] [address] | [phone] | + + + + + XR [...] + + + | SPECIMEN(S): A | DE PATHOLOGY | | LEFT HIP SYNOVIUM SPECIMEN [...] | | | abnormalities are grossly identified. Stand Up Forklift Operator sections are | | | submitted in [...] interpretation was | | | performed by [facility], [facility], [address] | | | [address] [place], [place] (Bingo Cashier: Víctor Livingston M.D.; | | | CLIA#: [id number]).The technical component was performed by [email or web address] | | | [facility], [address] [place] [id number] (Bingo Cashier: | | | Nadiya Sharma MD; CLIA# [id number]). Diagnostician: Víctor Livingston | | | MDPathologistElectronically [...] | | LABORATORY | | | | Blvd;[place] [address] | | | | + + + [...] Stain | STAIN PERFORMED ON | | [facility] | | | Result | CYTOSPIN | | LABORATORY | | + + + + + + | RESULT | NO GROWTH 4 DAYS | | [facility] | | | | | | LABORATORY | | + + + + + + | RESULT | Testing performed at | | [facility] | | | | [facility], [address] [facility] | | LABORATORY | | | | [place], [place] | | | | | | [id number]: Testing | | | | | | performed at [facility], [address] | | | | | | [facility] [place] | | | | | | [address] | | | | + + + + + + + + | Specimen | + + | | + + + + + + + | Performing | Address | City/State/Zipcode | Phone Number | | Organization | | | | + + + + + | [facility] | [address] | [place] [address] | [phone] | + + + + + Culture, [...] | NO GROWTH 4 DAYS | | [facility] | | | | | | LABORATORY | | + + + + + + | RESULT | Testing performed at | | [facility] | | | | [facility], [address] [facility] | | LABORATORY | | | | Bl, [place] | | | | | | [address]Tcouwhw: Testing | | | | | | performed at [facility], [address] | | | | | | [facility] [address], | | | | | | [place] [address] | | | | + + + [...] [facility] | [address] | [place] [address] | [phone] | + + + + + Type [...] + + + | BB BAND | [id number] | | [facility] | | | | | | LABORATORY | | + + + + + + | BB BAND | Testing performed at | | [facility] | | | | [facility];[address] | | LABORATORY | | | | [address];[place] [address] | | | | + + + + + + + + | Specimen | + + | Blood | + + + + + + + | Performing | Address | City/State/Zipcode | Phone Number | | Organization | | | | + + + + + | [facility] | [address] | [place] [address] | [phone] | + + + + + POCT Test, Urine, Qual (10/24/2018 1:27 PM PDT) + + + + + + | Component | Value | Ref Range | Performed | Pathologist | | | | | At | Signature | + + + + + + | HCG, | NEGATIVEComment: Testing | NEG | [facility] | | | Quantitativ | performed at [facility];[address] | | LABORATORY | | | [address] | [address];[place] | | | | | | [address] | | | | + + + + + + + + | Specimen | + + | | + + + + + + + | Performing | Address | City/State/Zipcode | Phone Number | | Organization | | | | + + + + + | [facility] | [address] | [place] [address] | [phone] | + + + + + documented [...] 19 2:33 | | | | | [place] 10/24/18 at 1345, For 1 dose, | [...] | | | | | Indigestion, Starting Tue10/24/18 | | | | | | | [...] HOURS PRN, Itching, | | | Starting e 10/24/18 at 2120, | | | Oral [...] | | | | | | longer, yyjxpa-swd-dylch use of | | | | | [...] HOURS PRN, | | | Agitation, Starting Tue11/03/18 | | | at 0843 | | [...] | | | | | | | icbvbp-pjv-oddxk use of at least | | | [...] | | | | Starting 10/24/18 at 2120 | | | | | [...] | mL/hr | | | CONTINUOUS, Starting 10/24/18 | | AM PDT | | | | | at 2145, Post-op/Phase II | | | | | | + +---------+ +---+-------+---+ +---+---+ | | | +---+---+ + +-------+ +--------+---+---+ | lactulose liquid 30 mL 30 mL, | Given | 10/30/19 | 30 mLs | | | | Oral, DAILY PRN, Constipation, | | 19 2:12 | | | | | Starting 10/24/18 at 2120, If | | PM PDT [...] 2 mg/mL | | | injection Starting Tue10/27/18 | | | at 1638, For 1 dose, Greyson, | | | Libert[place] : gordon curiel, | | + +---+ | | | + +---+ + +-------+ +--------+---+---+ | LORazepam (ATIVAN) injection | Given | 10/28/19 | 0.5 mg | | | | 0.5 mg 0.5 mg, Intravenous, | | 19 4:55 | | | | | ONCE, Tue10/27/18 at 1700, For 1 | | PM [...] | times per day), First dose on Becka | | | | | | [...] mg, Oral, ONCE, 10/24/18 at | | PM PDT | [...]
--- OUTSIDE RECORDS SUMMARY | ~2019-03-11 | XMS | Encounter Summary ---
Demographics + + + | Address | [address] | | | [place] [address] | + + + | Home Phone | | + + + | Preferred Language | Unknown | + + + | Marital Status | | + + + | Yarsanism Affiliation | Unknown | + + + | Race | Unknown | + + + | Ethnic Group | Unknown | + + + Author + + + | Author | [facility] | | | and [place] | + + + | Organization | [facility] | | | and [place] | + + + | Address | Unknown | + + + | Phone | Unavailable | + + + Support + + + + + | Name | Relationship | Address | Phone | + + + + + | Fabienne Juarez | ECON | [place] | | | | | [address] | | + + + + + Care Team Providers + +------+ + | Care Insulation Cupola Charger Name | Role | Phone | + +------+ + | Celestine Watters MD | PCP | | + +------+ + Encounter Details +--------+ + + + + | Date | Type | Department | Care Team | Description | +--------+ + + + + | 10/18/ | Orders Only | [facility] | Miah Monique | | | 2018 | | MD Mayur CHÁVEZ | | | | | [address] | [address] | | | | | [address] | [place] [address] | | | | | [phone] | [phone] | | | | | | | [...] | | INJECTION MAJOR | e | 2:45 PM | | procedure are in the | | JOINT LEFT | | PDT | | results section. | + +--------+ + + + documented in this encounter Results FL Asp and/or Inj Major Joint Left (10/18/2018 2:45 PM PDT) + + | Specimen | [...] aspiration performed. Fluid sent to | | | pathology for further evaluation. Signed by: Kroina Beaver Sean | | | Sign Date/Time: [...] + | Tony Kelly Conversion - 12/14/2018 3:50 PM PDT FLUOROSCOPICALLY GUIDED INJECTION OF | | THE LEFT HIP FOR MR ARTHROGRAPHYCLINICAL INFORMATION:Painful left total hip replacement | | with elevated ESR and CRP. Pleaseobtain fluid to evaluate for infection prior to | | revision surgery.Please use large gauge needle such as [...] fluid amount is limited please prioritizecell count | | and culture.COMPARISON:CT PELVIS WO CONTRAST (09/19/2018); XR HIP [...]
--- OUTSIDE RECORDS SUMMARY | ~2019-03-11 | XMS | Encounter Summary ---
Demographics + + + | Address | [address] | | | [place] [address] | + + + | Home Phone [...] Author | [facility] | | | and [place] | + + + | Organization | [facility] | | | and [place] | + + + | Address | Unknown | + + + | Phone | Unavailable | + + + Support + + + + + | Name | Relationship | Address | Phone | + + + + + | Fabienne Juarez | ECON | [place] | | | | | [address] | | + + + + + Care Team Providers + +------+ + | Care Ground Instructor Advanced Name | Role | Phone | + [...] JACKELYN | | | | | [place] | [address] | | | | | [address] | [place] [address] | | | | | [phone] | [phone] | | | | | | | [...]
--- OUTSIDE RECORDS SUMMARY | ~2019-03-11 | XMS | Encounter Summary ---
Demographics + + + | Address | [address] | | | [place] [address] | + + + | Home Phone | | + + + | Preferred Language | Unknown | + + + | Marital Status | | + + + | Islam Affiliation | Unknown | + + + | Race | Unknown | + + + | Ethnic Group | Unknown | + + + Author + + + | Author | [facility] | | | and [place] | + + + | Organization | [facility] | [...] [place] | | | | | [address] | | + + + + + Care Team Providers + +------+ + | Care Braille Typist Name | Role | Phone | + +------+ + | Celestine Watters MD | PCP | | + +------+ + Encounter Details +--------+ + + + + | Date | Type | Department | Care Team | Description | +--------+ + + + + | 12/11/ | Hospital | [facility] | Miah Monique | Status post left hip | | 2018 | Encounter | RADHA [address] | MD Fab [address] | replacement | | | | [address] | [address] | | | | | [place], [place] | [place] [address] | | | | | [address] | [phone] | | | | | [phone] | | | +--------+ + + + [...]
--- OUTSIDE RECORDS SUMMARY | ~2019-03-11 | XMS | Encounter Summary ---
Demographics + + + | Address | [address] | | | [place] [address] | + + + | Home Phone | | + + + | Preferred Language | Unknown | + + + | Marital Status | | + + + | Zoroastrianism Affiliation | Unknown | + + + | Race | Unknown | + + + | Ethnic Group | Unknown | + + + Author + + + | Author | [facility] | | | and [place] | + + + | Organization | [facility] | | | and [place] | + + + | Address | Unknown | + + + | Phone | Unavailable | + + + Support + + + + + | Name | Relationship | Address | Phone | + + + + + | Fabienne Juarez | ECON | [place] | | | | | [address] | | + + + + + Care Team Providers + +------+ + | Care Billiard Table Mechanic Name | Role | Phone | + +------+ + | No, Physician | PCP | Unavailable | + +------+ + Encounter Details +--------+ + + + + | Date | Type | Department | Care Team | Description | +--------+ + + + + | 09/11/ | Orders Only | [facility] | Miah Monique | | | 2018 | | [address] | MD Fab [address] | | | | | [address] | [address] | | | | | [place] | [place] [address] | | | | | [address] | [phone] | | | | | [phone] | | | +--------+ + + + [...] XR HIP LEFT 2-3 | Routin | 09/11/2018 | | Results for this | | VIEWS | e | 12:09 PM | | procedure are in the | | | | PDT | | results section. | + +--------+ + + + documented in this encounter Results XR Hip Left 2-3 Views (09/11/2018 12:09 PM PDT) + + | Specimen | + + | | + + + + + | Narrative | Performed At | + + + | Views of the left hip show a left total hip arthroplasty with a | | | modular femoral component with a press-fit design and a press-fit | | | acetabular component and approximately 60 degrees of inclination and | | | what appears to be appropriate anteversion with eccentric | | | polyethylene wear that appears complete. It appears that the | | | femoral prosthetic head is articulating with the metallic portion of | | | the acetabular component there is no significant evidence of | | | loosening or ostial lysis. Electronically signed by: Miah Sanon | | | MD Eneida 09/12/2018 1:38 PM | | + + + + + | Procedure Note | + + | Tony Kelly Conversion - 10/26/2018 2:13 PM PDT Views of the left hip show a left total | | hip arthroplasty with a modularfemoral component with a press-fit design and a | | press-fit acetabularcomponent and approximately 60 degrees of inclination and what | | appears ne appropriate anteversion with eccentric polyethylene wear that | | appearscomplete. It appears that the femoral prosthetic head is articulatingwith the | | metallic portion of the acetabular component there is nosignificant evidence of | | loosening or ostial lysis. Electronically signed by: Miah Monique MD 09/12/2018 1:38 | | PM | |Electronically signed by: Miah Monique MD 09/12/2018 1:38 PM | | | + + documented in this encounter Visit Diagnoses Not on filedocumented in this encounter"
--- OUTSIDE RECORDS SUMMARY | ~2019-03-11 | XMS | Encounter Summary ---
Demographics + + + | Address | [address] | | | [place] [address] | + + + | Home Phone | | + + + | Preferred Language | Unknown | + + + | Marital Status | | + + + | Mandaeism Affiliation | Unknown | + + + | Race | Unknown | + + + | Ethnic Group | Unknown | + + + Author + + + | Author | [facility] | | | and [place] | + + + | Organization | [facility] | [...] [place] | | | | | [address] | | + + + + + Care Team Providers + +------+ + | Care Hospital Pharmacy Director Name | Role | Phone | + [...] | | | Pain in | | Miha Sanon MD | | | | | prosthetic | | [address] | | | | | joint, | | [address] | | | | | initial | | [place] | | | | | encounter | | [address] Phone: | | | | | ([facility]) | | [phone] | | | | | Mechanical | | Fax: | | | | | complication | | [phone] | | | | | of | | | | | | | prosthetic | | | | | | | knee | | | | | | | implant, | | | | | | | initial | | | | | | | encounter | | | | | | | ([facility]) | | | | | | | Procedures | | | | | | | [place] | | | | | | [...] + + | 10/24/ | Anesthesia | [facility] | Jt Thorpe MD | | | 2019 | Event [facility] | [address] | | | | | [address]PER[address] | [place] [address] | | | | | [address] | [phone] | | | | | [place], [place] | Griselda Brush, | | | | | [address] | STORE WORKER [address] [facility] | | | | | [phone] | [place] [address] | | | | | | [phone] | | | | | | | | +--------+ + + + + Anesthesia Record + + + + + | Procedure Name | Responsible | Anesthesia Start | Anesthesia Stop Time | | | Anesthesiologist | Time | | + + + + + | ARTHROPLASTY | Jt Thorpe MD | 10/24/18 1556 | 10/24/18 0928 | | REVISION TOTAL HIP | | [...] 9 | | for the spinal. 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
--- OUTSIDE RECORDS SUMMARY | ~2019-03-11 | XMS | Encounter Summary ---
Demographics + + + | Address | [address] | | | [place] [address] | + + + | Home Phone | | + + + | Preferred Language | Unknown | + + + | Marital Status | | + + + | Congregation Affiliation | Unknown | + + + | Race | Unknown | + + + | Ethnic Group | Unknown | + + + Author + + + | Author | [facility] | | | and [place] | + + + | Organization | [facility] | | | and [place] | + + + | Address | Unknown | + + + | Phone | Unavailable | + + + Support + + + + + | Name | Relationship | Address | Phone | + + + + + | Fabienne Juaerz | ECON | [place] | | | | | [address] | | + + + + + Care Team Providers + +------+ + | Care Dress Designer Name | Role | Phone | + [...] [address] | | | | | [address] [place], [place] | [address] | | | | | [address] | [place] [address] | | | | | [phone] | [phone] | | | | | | | [...]
--- OUTSIDE RECORDS SUMMARY | ~2019-03-11 | XMS | Encounter Summary ---
Demographics + + + | Address | [address] | | | [place] [address] | + + + | Home Phone | | + + + | Preferred Language | Unknown | + + + | Marital Status | | + + + | Roman Catholic Affiliation | Unknown | + + + | Race | Unknown | + + + | Ethnic Group | Unknown | + + + Author + + + | Author | [facility] | | | and [place] | + + + | Organization | [facility] | | | and [place] | + + + | Address | Unknown | + + + | Phone | Unavailable | + + + Support + + + + + | Name | Relationship | Address | Phone | + + + + + | Fabienne Juarez | ECON | [place] | | | | | [address] | | + + + + + Care Team Providers + +------+ + | Care Logging Superintendent Name | Role | Phone | + [...] [address] | | | | | [address] | [place] [address] | | | | | [phone] | [phone] | | | | | | | [...]
--- OUTSIDE RECORDS SUMMARY | ~2019-03-11 | XMS | Encounter Summary ---
Demographics + + + | Address | [address] | | | [place] [address] | + + + | Home Phone | | + + + | Preferred Language | Unknown | + + + | Marital Status | | + + + | Sikhism Affiliation | Unknown | + + + | Race | Unknown | + + + | Ethnic Group | Unknown | + + + Author + + + | Author | [facility] | | | and [place] | + + + | Organization | [facility] | | | and [place] | + + + | Address | Unknown | + + + | Phone | Unavailable | + + + Support + + + + + | Name | Relationship | Address | Phone | + + + + + | Fabienne Juarez | ECON | [place] | | | | | [address] | | + + + + + Care Team Providers + +------+ + | Care Director Of Optimization Name | Role | Phone | + [...] [address] | | | | | [address] | [place] | | | | | [address] | [place] [address] | | | | | [phone] | [phone] | | | | | | | [...]
--- OUTSIDE RECORDS SUMMARY | ~2019-03-11 | XMS | Encounter Summary ---
Demographics + + + | Address | [address] | | | [place] [address] | + + + | Home Phone | | + + + | Preferred Language | Unknown | + + + | Marital Status | | + + + | Shinto Affiliation | Unknown | + + + | Race | Unknown | + + + | Ethnic Group | Unknown | + + + Author + + + | Author | [facility] | | | and [place] | + + + | Organization | [facility] | | | and [place] | + + + | Address | Unknown | + + + | Phone | Unavailable | + + + Support + + + + + | Name | Relationship | Address | Phone | + + + + + | Fabienne Juarez | ECON | [place] | | | | | [address] | | + + + + + Care Team Providers + +------+ + | Care Crm Manager Name | Role | Phone | + +------+ + | No, Physician | PCP | Unavailable | + +------+ + Encounter Details +--------+ + + + + | Date | Type | Department | Care Team | Description | +--------+ + + + + | 10/18/ | Orders Only | [facility] | Miah Monique | | | 2018 | | [facility] | MD [address] | | | | | [address] | [place] | | | | | [address] | [place] [address] | | | | | [place], [place] | [phone] | | | | | [address] | | | | | | [phone] | | | +--------+ + + + [...] EXTERNAL LAB | | Testing performed at [facility];[address] [place] [address];[place] [address] | | + + + + +---------+ [...] | | CLOUDY RBC'S | | | [address] TOTAL NUCLEATED CELLS | | | 29 NEUTROPHILS | | | 83 LYMPHOCYTES | | | 14 EOSINOPHILS 3 | | | CELLS COUNTED 100 | | | Testing performed at [facility];[address] [place] [address];[place] [address] | | + + + + +---------+ + + | Performing | Address | City/State/Zipcode | Phone Number | | Organization | | | | + +---------+ + + | EXTERNAL LAB | | | | + +---------+ + + documented in this encounter Visit Diagnoses Not on filedocumented in this encounter"
--- OUTSIDE RECORDS SUMMARY | ~2019-03-11 | XMS | Encounter Summary ---
Demographics + + + | Address | [address] | | | [place] [address] | + + + | Home Phone | | + + + | Preferred Language | Unknown | + + + | Marital Status | | + + + | Pentecostalism Affiliation | Unknown | + + + | Race | Unknown | + + + | Ethnic Group | Unknown | + + + Author + + + | Author | [facility] | | | and [place] | + + + | Organization | [facility] | | | and [place] | + + + | Address | Unknown | + + + | Phone | Unavailable | + + + Support + + + + + | Name | Relationship | Address | Phone | + + + + + | Fabienne Juarez | ECON | [place] | | | | | [address] | | + + + + + Care Team Providers + +------+ + | Care Clinical Resource Manager Name | Role | Phone | + +------+ + | Celestine Watters MD | PCP | | + +------+ + Encounter Details +--------+ + + + + | Date | Type | Department | Care Team | Description | +--------+ + + + + | 11/24/ | Telephone | [facility] | Miah Monique | | | 2018 | | MD [address] | | | | | [address] | [address] | | | | | [address] | [place] [address] | | | | | [phone] | [phone] | | | | | | | [...]
--- OUTSIDE RECORDS SUMMARY | ~2019-03-11 | XMS | Encounter Summary ---
Demographics + + + | Address | [address] | | | [place] [address] | + + + | Home Phone | | + + + | Preferred Language | Unknown | + + + | Marital Status | | + + + | Christianity Affiliation | Unknown | + + + | Race | Unknown | + + + | Ethnic Group | Unknown | + + + Author + + + | Author | [facility] | | | and [place] | + + + | Organization | [facility] | | | and [place] | + + + | Address | Unknown | + + + | Phone | Unavailable | + + + Support + + + + + | Name | Relationship | Address | Phone | + + + + + | Fabeinne Juarez | ECON | [place] | | | | | [address] | | + + + + + Care Team Providers + +------+ + | Care Socially Responsible Investment Adviser Name | Role | Phone | + [...] [address] | | | | | [address] [place], [place] | [address] | | | | | [address] | [place] [address] | | | | | [phone] | [phone] | | | | | | | [...]
--- OUTSIDE RECORDS SUMMARY | ~2019-03-11 | XMS | Encounter Summary ---
Demographics + + + | Address | [address] | | | [place] [address] | + + + | Home Phone | | + + + | Preferred Language | Unknown | + + + | Marital Status | | + + + | Baptist Affiliation | Unknown | + + + | Race | Unknown | + + + | Ethnic Group | Unknown | + + + Author + + + | Author | [facility] | | | and [place] | + + + | Organization | [facility] | | | and [place] | + + + | Address | Unknown | + + + | Phone | Unavailable | + + + Support + + + + + | Name | Relationship | Address | Phone | + + + + + | Fabienne Juarez | ECON | [place] | | | | | [address] | | + + + + + Care Team Providers + +------+ + | Care Pattern Illustrator Name | Role | Phone | + [...] | | | | encounter | | [address] Phone: | | | | | ([facility]) | | [phone] | | | | | Mechanical | | Fax: | | | | | complication | | [phone] | | | | | of | | | | | | | prosthetic | | | | | | | knee | | | | | | | implant, | | | | | | | initial | | | | | | | encounter | | | | | | | ([facility]) | | | | | | | Procedures | | | | | | | [place] [facility] | | | | | | [...] + + | 10/24/ | Surgery | [facility] | Miah Monique | ARTHROPLASTY | | 2018 | | [facility] | MD [address] | REVISION TOTAL HIP | | | | OPER[address] | [address] | | | | | [address] | [place] [address] | | | | | [place], [place] | [phone] | | | | | [address] | | | | | | [phone] | | | +--------+---------+ + + + [...] [facility], comprising of an acetabular component revision. This [...] and psychiatry was consulted. He r psychiatry [employer]IP [employer] BARGE MATE was also contacted and she was restarted [...] room air #Depression/anxiety/PTSD: -11/03/18 Discussed patient with [facility] [phone]. She has a diagnosis of PTSD and [...] TOTAL HIP; Surgeon: Miah Monique MD; Location: [facility] MAIN OR TOTAL HIP ARTHROPLASTY Left [...] * No resolved hospital problems. * Disposition: jail Condition: Fair Code Status: Full Code Follow up: Miah Monique MD [address] [place] [address] [id number] In 4 weeks For wound re-check and [...] ASA oral tablets Brand Names: Aspirtab, Aspir-Giulia, ScrollMotion Advanced Aspirin, Alejandra Aspirin, Alejandra Aspirin Ext [...] more often than directed. Talk to your other sports coach or instructor regarding the use of this medicine in [...] should report to your doctor or health direct care specialist as soon as p ossible: [...] attention (report to your doctor or health direct care specialist if they continue or are [...] for pain, tell your doctor or health direct care specialist if the pain lasts more [...] if prescribed by your doctor or health direct care specialist. Do not take aspirin or [...] ou have any questions. Talk to your other sports coach or instructor regarding the use of this medicine in children. Special care may be needed. What side effects may I notice from receiving this medicine? Side effects that you should report to your doctor or health direct care specialist as soon as p ossible: [...] attention (report to your doctor or health direct care specialist if they continue or are [...] this medicine? Tell your doctor or health direct care specialist if your symptoms do not [...] pharmacist, or health care provider. Copyright 2019 [employer] Albuterol; Ipratropium solution for inhalation Brand Name: [...] more often than directed. Talk to your other sports coach or instructor regarding the use of this medicine in children. Special care may be needed. What side effects may I notice from receiving this medicine? Side effects that you should report to your doctor or health direct care specialist as soon as p ossible: [...] attention (report to your doctor or health direct care specialist if they continue or are [...] pharmacist, or health care provider. Copyright 2019 [employer] Celecoxib capsules Brand Name: Celebrex What is [...] information carefully each time. Talk to your other sports coach or instructor regarding the use of this medicine in children. Special care may be needed. What side effects may I notice from receiving this medicine? Side effects that you should report to your doctor or health direct care specialist as soon as p ossible: [...] attention (report to your doctor or health direct care specialist if they continue or are [...] this medicine? Tell your doctor or health direct care specialist if your pain does not [...] roke, talk with your doctor or health direct care specialist. Do not take medicines such [...] not take at bedtime. Talk to your other sports coach or instructor regarding the use of this medicine in children. While this drug m ay be prescribed for selected conditions, precautions do apply. What side effects may I notice from receiving this medicine? Side effects that you should report to your doctor or health direct care specialist as soon as p ossible: [...] attention (report to your doctor or health direct care specialist if they continue or are [...] this medicine? Visit your doctor or health direct care specialist for regular checks on your progress. Check yo ur blood pressure regularly. Ask your doctor or health direct care specialist what your blood pre ssure [...] information carefully each time. Talk to your other sports coach or instructor regarding the use of this medicine in children. Special care may be needed. What side effects may I notice from receiving this medicine? Side effects that you should report to your doctor or health direct care specialist as soon as p ossible: allergic reactions like skin rash, itching or hives, swelling of the face, lips, or tong ue worsening of mood, thoughts or actions of suicide or dying Side effects that usually do not require medical attention (report to your doctor or health direct care specialist if they continue or are [...] this medicine? Visit your doctor or health direct care specialist for regular checks on your progress. You may want to keep a record at home of how you feel your condition is responding to treatment. You may want to share this information with your doctor or health direct care specialist at each vis it. You should contact your doctor or health direct care specialist if your seizures get worse or if you have any new types of seizures. Do not stop taking this medicine or any of your seiz ure medicines unless instructed by your doctor or health direct care specialist. Stopping your me dicine suddenly [...] dying should be reported to your health direct care specialist right away. Women who become while using this medicine may enroll in the [place] [employer] Registry by calling . [...] information carefully each time. Talk to your other sports coach or instructor regarding the use of this medicine in children. Special care may be needed. What side effects may I notice from receiving this medicine? Side effects that you should report to your doctor or health direct care specialist as soon as p ossible: [...] attention (report to your doctor or health direct care specialist if they continue or are [...] to an official disposal site. Contact the [facility] at or your [facility]/counts include 234 beds at the [facility] government to find a site. If [...] this medicine? Tell your doctor or health direct care specialist if your pain does not [...] pharmacist, or health care provider. Copyright 2019 [employer] Nicotine skin patches Brand Names: Habitrol, Nicoderm [...] the same area again. Talk to your other sports coach or instructor regarding the use of this medicine in children. Special care may be needed. What side effects may I notice from receiving this medicine? Side effects that you should report to your doctor or health direct care specialist as soon as p ossible: [...] attention (report to your doctor or health direct care specialist if they continue or are [...] only last for a few days. Call [facility] doctor or health direct care specialist if skin redness does not go away after 4 days, if your skin swells, or if you get a rash. If you are a diabetic and you quit smoking, the effects of insulin may be increased and you may need to reduce your insulin dose. Check with your doctor or health direct care specialist ab out how you should [...] pharmacist, or health care provider. Copyright 2019 [employer] Olanzapine tablets Brand Name: Zyprexa What is [...] information carefully each time. Talk to your other sports coach or instructor regarding the use of this medicine in children. While this drug m ay be prescribed for children as young as 13 years for selected conditions, precautions do a pply. What side effects may I notice from receiving this medicine? Side effects that you should report to your doctor or health direct care specialist as soon as p ossible: [...] attention (report to your doctor or health direct care specialist if they continue or are [...] this medicine? Visit your doctor or health direct care specialist for regular checks on your progress. It may b e several weeks before you see the full effects of this medicine. Notify your doctor or heal th direct care specialist if your symptoms get worse, if you have new symptoms, if you are having an unusual effect from this medicine, or if you feel out of control, very discouraged or th ink you might harm yourself or others. Do not suddenly stop taking this medicine. You may need to gradually reduce the dose. Ask y our doctor or health direct care specialist for advice. You may get [...] allergies without asking your doctor or health direct care specialist for advice. Some ingredients can increase possible side effects. Your mouth may get dry. Chewing sugarless gum or sucking hard candy, and drinking plenty of water will help. This medicine can reduce the response of your body to heat or cold. Dress metal painter cold weat her and stay hydrated in [...] information carefully each time. Talk to your other sports coach or instructor regarding the use of this medicine in children. Special care may be needed. What side effects may I notice from receiving this medicine? Side effects that you should report to your doctor or health direct care specialist as soon as p ossible: [...] attention (report to your doctor or health direct care specialist if they continue or are [...] to an official disposal site. Contact the [facility] at [phone] or your [facility]/counts include 234 beds at the [facility] government to find a site. If you cannot return the medicine, flush it down the toilet. Do not use the medicine after the expiration date. What should I tell my health care provider before I take this medicine? They need to know if you have any of these conditions: [place]'s disease brain tumor head injury heart disease [...] this medicine? Tell your doctor or health direct care specialist if your pain does not [...] pharmacist, or health care provider. Copyright 2019 [employer] Prednisone tablets Brand Names: Deltasone, Predone, Sterapred, [...] avoid any side effects. Talk to your other sports coach or instructor regarding the use of this medicine in children. Special care may be needed. What side effects may I notice from receiving this medicine? Side effects that you should report to your doctor or health direct care specialist as soon as p ossible: [...] attention (report to your doctor or health direct care specialist if they continue or are [...] ta lk to your doctor or health direct care specialist. You may need to miss [...] if you have any of these conditions: Graettinger's syndrome diabetes glaucoma heart disease high blood [...] this medicine? Visit your doctor or health direct care specialist for regular checks on your [...] have surgery, tell your doctor or health direct care specialist that you hav e taken this medicine within the last twelve months. Ask your doctor or health direct care specialist about your diet. You may need to lower the amou nt of salt you eat. This medicine may affect blood sugar levels. If you have diabetes, check with your doctor o r health direct care specialist before you change your diet [...] e often than directed. Talk to your other sports coach or instructor regarding the use of this medicine in children. While this medici ne may be prescribed for children as young as 2 years for selected conditions, precautions d o apply. What side effects may I notice from receiving this medicine? Side effects that you should report to your doctor or health direct care specialist as soon as p ossible: diarrhea muscle weakness nausea, vomiting unusual weight loss Side effects that usually do not require medical attention (report to your doctor or health direct care specialist if they continue or are [...] returning, check with yo doctor or health direct care specialist. NOTE:This sheet is a summary. It may not cover all possible information. If you have questi ons about this medicine, talk to your doctor, pharmacist, or health care provider. Copyright 2019 [employer] Tramadol tablets Brand Name: Ultram What is [...] information carefully each time. Talk to your other sports coach or instructor regarding the use of this medicine in children. Special care may be needed. What side effects may I notice from receiving this medicine? Side effects that you should report to your doctor or health direct care specialist as soon as p ossible: [...] attention (report to your doctor or health direct care specialist if they continue or are [...] this medicine? Tell your doctor or health direct care specialist if your pain does not [...] 3 days, call your doctor or health direct care specialist. Your mouth may get dry. [...] attachments cannot be sent through Care Everywhere.Sepsis (Macedonian )Sepsis, Understanding (Macedonian)documented in this encounter Medications at Time of [...] arpal Fine MD - 2:29 PM PDT [facility] Service: Hospitalist Progress Note Pt: [...] over2 weeks #Depression/anxiety/PTSD: -11/03/18 Discussed patient with [facility] [phone]. She has a diagnosis of PTSD and [...] MD - 0 11/08/2018 12:00 PM PDT [facility] Service: Hospitalist Progress Note Pt: [...] encounter as of 11/08/18-12:01 IMAGING: Reviewed in [facility], no new results. PROBLEM LIST [...] as able #Depression/anxiety/PTSD: -11/03/18 Discussed patient with [facility] [phone]. She has a diagnosis of PTSD and [...] M D - 11/07/2018 2:04 PM PDT [facility] Service: Hospitalist Progress Note Hospital [...] and psychiat ry was consulted. Her psychiatry [employer] BARGE MATE was also contacted and she was restarted [...] 11/07/18 0411 PROCALCITONI 0.10 Imaging: Reviewed in [facility], no new results. PROBLEM LIST [...] as tolerated #Depression/anxiety/PTSD: -11/03/18 Discussed patient with [facility] [phone]. She has a diagnosis of PTSD and [...] Chambers MD - 11/07/2018 8:06 AM PDT [facility] Service: PULMONOLOGY Progress Note Date of [...] TOTAL HIP; Surgeon: Miah Monique MD; Location: [facility] MAIN OR TOTAL HIP ARTHROPLASTY Left [...] might be different from the o javed. [facility] Service: Orthopedic Surgery Progress Note [...] MIGDALIA Thompson has created this entry using Book&Table Recognition Faction Skis and [employer] macros. The entry has been reviewed and there may still exist sound alike word errors. Kush Miller MD - 11/06/2018 8:02 AM PDT [facility] Service: Hospitalist Progress Note Pt: [...] agitaitation and psychiatry was consulted. Her psychiatry [employer]IP [employer] BARGE MATE was also contacted and she was restarted [...] hours. No results for input(s): PHART, PO2ART, FPD0VGQ, S9CUIPOQ, BEART in the last 168 hours. No results for input(s): APTT, INR, PTT in the last 168 hours. No results for input(s): TSH in the last 168 hours. Invalid input(s): T3FREE, FREET4 No results for input(s): TROPONINT in the last 168 hours. Invalid input(s): CKTOTAL, TROPONINI, CKMBINDEX Microbiology Results (72 hrs) Procedure Component Value Units Date/Time Culture, Respiratory, Lower, Smear [[id number]] Collected: 10/29/181728 Order Status: Completed Lab Status: [...] HELD 48 HOURS. RESULT Testing performed at [facility], [address] [place] [address] Comment: Testing performed at [facility], [address] [place] [address] RADIOLOGY: Recent Results (from the past 360 [...] study. Depression/anxiety/ptsd - 11/03/18 Discussed patient with [facility] [phone]. She has a diagnosis o f PTSD [...] and managing patient and counseling/coordination. Dictation software, betaworks, used which may contain error for similar sounding words even af ter review. Personal communication requested for any clarification. Portions of this chart may have been copied from previous notes for continuity of care purp ose Terri Osullivan RN - 11/05/2018 6:19 PM PDTEnd of shift review complete. Donovan Loja PA - 11/05/2018 10:52 AM PDT [facility] Service: Orthopedic Surgery Progress Note [...] MIGDALIA Thompson has created this entry using Book&Table Recognition [employer] and [employer] macros. The entry has been reviewed and there may still exist sound alike word errors. Kush Miller MD - 11/05/2018 9:44 AM PDT [facility] Service: Hospitalist Progress Note Pt: [...] agitaitation and psychiatry was consulted. Her psychiatry SHIP BOAT OR BARGE MATE was also contacted and she was restarted [...] hours. No results for input(s): PHART, PO2ART, UGX5DSF, Z3LPPSES, BEART in the last 168 hours. No results for input(s): APTT, INR, PTT in the last 168 hours. No results for input(s): TSH in the last 168 hours. Invalid input(s): T3FREE, FREET4 No results for input(s): TROPONINT in the last 168 hours. Invalid input(s): CKTOTAL, TROPONINI, CKMBINDEX Microbiology Results (72 hrs) Procedure Component Value Units Date/Time Culture, Respiratory, Lower, Smear [[id number]] Collected: 10/29/181728 Order Status: Completed Lab Status: [...] HELD 48 HOURS. RESULT Testing performed at [facility], [address] [place] [address] Comment: Testing performed at [facility], [address] [place] [address] RADIOLOGY: Recent Results (from the past 360 [...] study. Depression/anxiety/ptsd - 11/03/18 Discussed patient with [facility] [phone]. She has a diagnosis o f PTSD [...] and managing patient and counseling/coordination. Dictation software, betaworks, used which may contain error for similar [...] signing off. Please call with any questions/concerns. [phone]. 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 Pt thanked elvia. Chaplain David Greeney Donovan Belle PA - 11/04/2018 1:02 PM PDT [facility] Service: Orthopedic Surgery Progress Note [...] MIGDALIA Thompson has created this entry using Book&Table Recognition F[employer] Skis and [employer] macros. The entry has been reviewed and there may still exist sound alike word errors. Kush Miller MD - 11/04/2018 11:50 AM PDT [facility] Service: Hospitalist Progress Note Pt: [...] hours. No results for input(s): PHART, PO2ART, JPW2NAF, H1KIDGUV, BEART in the last 168 hours. No results for input(s): APTT, INR, PTT in the last 168 hours. No results for input(s): TSH in the last 168 hours. Invalid input(s): T3FREE, FREET4 No results for input(s): TROPONINT in the last 168 hours. Invalid input(s): CKTOTAL, TROPONINI, CKMBINDEX Microbiology Results (72 hrs) Procedure Component Value Units Date/Time Culture, Respiratory, Lower, Smear [[id number]] Collected: 10/29/181728 Order Status: Completed Lab Status: [...] HELD 48 HOURS. RESULT Testing performed at [facility], [address] [place] [address] Comment: Testing performed at [facility], [address] [place] [id number] RADIOLOGY: Recent Results (from the past 360 [...] study. Depression/anxiety/ptsd - 11/03/18 Discussed patient with [facility] [phone]. She has a diagnosis o f PTSD [...] and managing patient and counseling/coordination. Dictation software, betaworks, used which may contain error for similar [...] to have regu lar p.o. Intake. Per multi punch operator note oxygenation is improving. 1. Pain in prosthetic joint, initial encounter ([facility]) 2. Mechanical complication of prosthetic knee implant, initial encounter ([facility]) 3. Mechanical instability of hip prosthesis ([facility]) 4. Shortness of breath 5. Acute respiratory failure with hypoxia ([facility]) Past Medical History: Diagnosis Date Anxiety Anxious depression Arthralgia Arthritis Asthma not using inhalers DDD (degenerative disc disease), lumbar Deliberate self-cutting history of Depression Heartburn Hemorrhage of gastrointestinal tract 2015 upper and lower due ulcers Morbid obesity with BMI of 50.0-59.9, adult ([facility]) Pain in prosthetic joint ([facility]) with instability Panic attacks states can [...] doing mobility exercises. Security, risk, pcc, stepdown case managers, primary md, and lead rn present with bedside rn. Pt crying and yelling that she doesn't want to "be here". Per elvia finley disruptive/violent pt paperwork filled out. Situation and pt expectations reviewed by risk and case managers with pt. Sitter at bedside currently. Ever [...] the room, pt [facility]. Dada mares called by staffing rn. pt. also stated during session everything we [...] might be different f rom the original. [facility] Service: Hospitalist Progress Note Pt: Sylvie Ramsey AGE/SEX: 48 y.o. female ROOM: [address] [place] [address] : 1970 PCP: No Physician on file [...] hours. No results for input(s): PHART, PO2ART, HOR4YWZ, R7XYFOMP, BEART in the last 168 hours. No results for input(s): APTT, INR, PTT in the last 168 hours. No results for input(s): TSH, T3FREE in the last 168 hours. Invalid input(s): FREET4 No results for input(s): TROPONINT in the last 168 hours. Invalid input(s): CKTOTAL, TROPONINI, CKMBINDEX Microbiology Results (72 hrs) Procedure Component Value Units Date/Time Culture, Respiratory, Lower, Smear [[id number]] Collected: 10/29/181728 Order Status: Completed Lab Status: [...] HELD 48 HOURS. RESULT Testing performed at [facility], [address] [place] [id number] Comment: Testing performed at [facility], [address] [place] [address] RADIOLOGY: Recent Results (from the past 360 [...] sleep study. Depression/anxiety/ptsd - Discussed patient with [facility] [phone]. She has a diagnosis of PTSD a [...] making capacity - consulted psychiatry. Appreciate recs. technical delivery manager to attempt to obtain more information [...] and managing patient and counseling/coordination. Dictation software, betaworks, used which may contain error for similar [...] to be transfer to a hospital in [facility], or that she was going to call the police and maxim the hospital. , lead nurse, block and case maker and risk not ified. Pt remained [...] time and continue to be managed by multi punch operator and hospitalist . No new orthopedics events 1. Pain in prosthetic joint, initial encounter (HCC) 2. Mechanical complication of prosthetic knee implant, initial encounter (HCC) 3. Mechanical instability of hip prosthesis (HCC) 4. Shortness of breath 5. Acute respiratory failure with hypoxia ([facility]) Past Medical History: Diagnosis Date Anxiety [...] 200 mg 200 mg Oral BID Miah Moniuqe MD 200 mg at 11/02/18 0851 citalopram [...] 8.6 mg 8.6 mg Oral Nightly Yuki rPuett MD 8.6 mg at 11/01/182027 traMADol (ULTRAM) [...] weightbearing Continue DVT prophylaxis Continue hospitalist and multi punch operator management for comorbidities plan will be to eventua lly go to rehab or SNF once cleared by specialist Emilio Moreno 11/02/2018 Moses Solorzano, PT - 11/02/2018 12:59 PM PDT 11/02/18 1259 PT Visit Summary PT Visit Type Missed Visit (patient unavailable) (Tele psych consult in progress) Next Visit Information 11/02, LTHA, 2PA Kush Miller MD - 11/02/2018 7:44 AM PDT [facility] Service: Hospitalist Progress Note Pt: [...] hours. No results for input(s): PHART, PO2ART, SII2CLK, W4PKJFVH, BEART in the last 168 hours. No results for input(s): APTT, INR, PTT in the last 168 hours. No results for input(s): TSH, T3FREE in the last 168 hours. Invalid input(s): FREET4 No results for input(s): TROPONINT in the last 168 hours. Invalid input(s): CKTOTAL, TROPONINI, CKMBINDEX Microbiology Results (72 hrs) Procedure Component Value Units Date/Time Culture, Respiratory, Lower, Smear [[id number]] Collected: 10/29/181728 Order Status: Completed Lab Status: [...] HELD 48 HOURS. RESULT Testing performed at [facility], [address] [place] [address] Comment: Testing performed at [facility], [address] [place] [address] RADIOLOGY: Recent Results (from the past 360 [...] making capacity - consulted psychiatry. Appreciate recs. technical delivery manager to attempt to obtain more information [...] and managing patient and counseling/coordination. Dictation software, betaworks, used which may contain error for similar [...] continues to be managed by hospitalist and multi punch operator and is currently on BiPAP 1. Pain in prosthetic joint, initial encounter ([facility]) 2. Mechanical complication of prosthetic knee implant, initial encounter ([facility]) 3. Mechanical instability of hip prosthesis ([facility]) 4. Shortness of breath 5. Acute respiratory failure with hypoxia ([facility]) Past Medical History: Diagnosis Date Anxiety [...] g 17 g Oral Daily PRN Miah Mnoique MD 17 g at 10/31/18 0845 potassium [...] Miller MD - 11/01/2018 7:36 AM PDT [facility] Service: Hospitalist Progress Note Pt: Sylvie Ramsey AGE/SEX: 48 y.o. female ROOM: [id number] : 1970 PCP: No Physician on file [...] hours. No results for input(s): PHART, PO2ART, ZRU7VGR, F3VRSPOR, BEART in the last 168 hours. No results for input(s): APTT, INR, PTT in the last 168 hours. No results for input(s): TSH, T3FREE in the last 168 hours. Invalid input(s): FREET4 No results for input(s): TROPONINT in the last 168 hours. Invalid input(s): CKTOTAL, TROPONINI, CKMBINDEX Microbiology Results (72 hrs) Procedure Component Value Units Date/Time Culture, Respiratory, Lower, Smear [[id number]] Collected: 10/29/181728 Order Status: Completed Lab Status: [...] HELD 48 HOURS. RESULT Testing performed at [facility], [address] [place] [address] Comment: Testing performed at [facility], [address] [place] [address] RADIOLOGY: Recent Results (from the past 360 [...] and managing patient and counseling/coordination. Dictation software, betaworks, used which may contain error for similar [...] this time. Education and reminders given for [facility] ed for maximal lung expansion. Becomes [...] 1. Pain in prosthetic joint, initial encounter ([facility]) 2. Mechanical complication of prosthetic knee implant, initial encounter ([facility]) 3. Mechanical instability of hip prosthesis ([facility]) 4. Shortness of breath 5. Acute respiratory failure with hypoxia ([facility]) Past Medical History: Diagnosis Date Anxiety Anxious depression Arthralgia Arthritis Asthma not using inhalers DDD (degenerative disc disease), lumbar Deliberate self-cutting history of Depression Heartburn Hemorrhage of gastrointestinal tract 2015 upper and lower due ulcers Morbid obesity with BMI of 50.0-59.9, adult ([facility]) Pain in prosthetic joint (HCC) with [...] PRN Fab Vickers 2 puff at 10/27/18 0588 albuterol-ipratropium 2.5-0.5 mg/3 mL nebulizer solution 3 [...] mg Oral 2 times per day Miah Moinque MD 15 mg at 10/31/18 0840 nicotine [...] Miller MD - 10/31/2018 8:07 AM PDT [facility] Service: Hospitalist Progress Note Pt: [...] hours. No results for input(s): PHART, PO2ART, XFP3NFW, Y3BIKBJQ, BEART in the last 168 hours. No results for input(s): APTT, INR, PTT in the last 168 hours. No results for input(s): TSH, T3FREE in the last 168 hours. Invalid input(s): FREET4 No results for input(s): TROPONINT in the last 168 hours. Invalid input(s): CKTOTAL, TROPONINI, CKMBINDEX Microbiology Results (72 hrs) Procedure Component Value Units Date/Time Culture, Respiratory, Lower, Smear [[id number]] Collected: 10/29/181728 Order Status: Completed Lab Status: [...] HELD 48 HOURS. RESULT Testing performed at [facility], [address] [place] [address] Comment: Testing performed at [facility], [address] [place] [address] RADIOLOGY: Recent Results (from the past 360 [...] and managing patient and counseling/coordination. Dictation software, betaworks, used which may contain error for similar [...] complication of prosthetic knee implant, initial encounter ([facility]) 3. Mechanical instability of hip prosthesis [...] might be different from the origin al. [facility] Service: Hospitalist Progress Note Hospital [...] for input(s): IRON, TIBC, PCTSAT, FERRITIN, TSH, [id number], FOLATE in the last 168 hours. Recent [...] continue nicotine patch. Deconditioning. Physical therapy recommended correction facility when stable. Plan discussed with patient. All questions were answered . All data was reviewed. Disposition: Inpatient Code Status: Full Code Yuki Pruett MD 10/30/2018 8:02 This entry has been created using FITiST Speech Recognition software and MoveEZ. The entry has been reviewed and there may still exist sound alike word errors. Kellee Diego i, RN - 10/30/2018 6:48 AM PDTAttempted to put patient on high flow 02 x2 attempts. Was u nable to keep 02 above 80's placed patient back on biPAP. Otherwise VSS and hourly rounding uneventful. Chart check complete. Víctor Wells ARNP - 10/29/2018 7:31 PM PDT [facility] Service: Orthopedic Surgery Progress Note [...] note might be different from the origin [facility] Service: Hospitalist Progress Note Hospital [...] for input(s): IRON, TIBC, PCTSAT, FERRITIN, TSH, [id number], FOLATE in the last 168 hours. Recent [...] 7:39 This entry has been created using FITiST Speech Recognition software and MoveEZ. The entry has been reviewed and there may still exist sound alike word errors. Bailey Wellsian GUILLERMOP - 10/28/2018 5:52 PM PDT . [facility] Service: Orthopedic Surgery Progress Note [...] ARTHROPLASTY P)continue medical care per hospitalist and multi punch operator. Weight bear as tolerated LLE. Continue PT and OT as tolerated d/t sob Code Status: Full Code WENCESLAO De Guzman 10/28/2018 [facility] - 10/28/2018 9:27 AM PDT Clinical Pharmacy [...] this note might be different from the [facility] Service: Hospitalist Progress Note Hospital [...] for input(s): IRON, TIBC, PCTSAT, FERRITIN, TSH, [id number], FOLATE in the last 168 hours. Recent [...] 10:29 This entry has been created using FITiST Speech Recognition software and MoveEZ. The entry has been reviewed and there [...] migh t be different from the original. [facility] Adult Hospitalist Event Note Hospital [...] that developed this am after returning from the [facility]. Denies dizziness, nausea, cough, chest pain, abdominal pain vomiting or headache 1. Pain in prosthetic joint, initial encounter ([facility]) 2. Mechanical complication of prosthetic knee implant, initial encounter ([facility]) 3. Mechanical instability of hip prosthesis ([facility]) Past Medical History: Diagnosis Date Anxiety Anxious depression Arthralgia Arthritis Asthma not using inhalers DDD (degenerative disc disease), lumbar Deliberate self-cutting history of Depression Heartburn Hemorrhage of gastrointestinal tract 2015 upper and lower due ulcers Morbid obesity with BMI of 50.0-59.9, adult ([facility]) Pain in prosthetic joint ([facility]) with instability Panic attacks states can [...] and a wheeze, called LUIS A Row[facility] ed. New IV placed Chart check complete [...] Community Support Services Current Outpt/Agency/Support Groups: (P) long term (specify) Community Agency Name: Other Resources: Discharge [...] 1. Pain in prosthetic joint, initial encounter ([facility]) 2. Mechanical complication of prosthetic knee implant, initial encounter ([facility]) 3. Mechanical instability of hip prosthesis ([facility]) Past Medical History: Diagnosis Date Anxiety Anxious depression Arthralgia Arthritis Asthma not using inhalers DDD (degenerative disc disease), lumbar Deliberate self-cutting history of Depression Heartburn Hemorrhage of gastrointestinal tract 2015 upper and lower due ulcers Morbid obesity with BMI of 50.0-59.9, adult ([facility]) Pain in prosthetic joint ([facility]) with instability Panic attacks states can [...] | | | | | | encounter ([facility]) | | | | | | Mechanical | | | | | | instability of hip | | | | | | prosthesis ([facility]) | | | | | | Shortness of breath | | | | | | Morbid obesity | | | | | | ([facility]) | | + + +--------+ + + [...] | | | | PDT | encounter ([facility]) | results section. | | | | | Mechanical | | | | | | complication of | | | | | | prosthetic knee | | | | | | implant, initial | | | | | | encounter ([facility]) | | + +--------+ + + + | CULTURE, TISSUE, | Routin | 10/24/2018 | Pain in prosthetic | Results for this | | SMEAR, WITH | e | 4:41 PM | joint, initial | procedure are in the | | ANAEROBES | | PDT | encounter ([facility]) | results section. | | | | | Mechanical | | | | | | complication of | | | | | | prosthetic knee | | | | | | implant, initial | | | | | | encounter ([facility]) | | + +--------+ + + [...] at | | | | | | [facility], [address] | | | | | | [place] | | | | | | [address] | | | | + + + + + + + + | Specimen | + + | Blood | + + + + + + + | Performing | Address | City/State/Zipcode | Phone Number | | Organization | | | | + + + + + | [facility] | [address] | [place] [address] | [phone] | + + + + + Magnesium [...] | | | | | performed at [facility], [address] | | | | | | [place], | | | | | | [place] [address] | | | | + + + + + + + + | Specimen | + + | Blood | + + + + + + + | Performing | Address | City/State/Zipcode | Phone Number | | Organization | | | | + + + + + | [facility] | [address] | [place] [address] | [phone] | + + + + + Basic [...] | >60Comment: GFR <60: | >60 | [facility] | | | GFR | CHRONIC KIDNEY [...] | | | | | | MDRD [facility] traceable | | | | | | equation.Testing | | | | | | performed at [facility], [address] | | | | | | [facility], | | | | | | [place] [address] | | | | + + + + + + + + | Specimen | + + | Blood | + + + + + + + | Performing | Address | City/State/Zipcode | Phone Number | | Organization | | | | + + + + + | [facility] | [address] | [place] [address] | [phone] | + + + + + CBC [...] | | | Absolute | performed at [facility], [address] | K/uL | LABORATORY | | | | [place], | | | | | | [place] [address] | | | | + + + + + + + + | Specimen | + + | Blood | + + + + + + + | Performing | Address | City/State/Zipcode | Phone Number | | Organization | | | | + + + + + | [facility] | [address] | [place] [address] | [phone] | + + + + + Magnesium (11/08/2018 3:56 AM PDT) + + + + + + | Component | Value | Ref Range | Performed | Pathologist | | | | | At | Signature | + + + + + + | Magnesium | 2.7 (H)Comment: Testing | 1.7 - 2.4 mg/dL | [facility] | | | | performed at [facility], [address] | | LABORATORY | | | | [place], | | | | | | [place] [address] | | | | + + + + + + + + | Specimen | + + | Blood | + + + + + + + | Performing | Address | City/State/Zipcode | Phone Number | | Organization | | | | + + + + + | [facility] | [address] | [place] [address] | [phone] | + + + + + Basic [...] 8.1 (L) | 8.5 - 10.5 | [facility] | | | | | mg/dL | LABORATORY | | + + + + + + | Estimated | >60Comment: GFR <60: | >60 | [facility] | | | GFR | CHRONIC KIDNEY [...] | | | | | performed at [facility], [address] | | | | | | [facility], | | | | | | [place] [address] | | | | + + + + + + + + | Specimen | + + | Blood | + + + + + + + | Performing | Address | City/State/Zipcode | Phone Number | | Organization | | | | + + + + + | [facility] | [address] | [place] [address] | [phone] | + + + + + CBC [...] at | | | | | | [facility], [address] [place] [address] | | | | | | [place], [place] | | | | | | [address] | | | | + + + + + + + + | Specimen | + + | Blood | + + + + + + + | Performing | Address | City/State/Zipcode | Phone Number | | Organization | | | | + + + + + | [facility] | [address] | [place] [address] | [phone] | + + + + + Magnesium (11/07/2018 4:11 AM PDT) + + + + + + | Component | Value | Ref Range | Performed | Pathologist | | | | | At | Signature | + + + + + + | Magnesium | 2.5 (H)Comment: Testing | 1.7 - 2.4 mg/dL | [facility] | | | | performed at [facility], [address] | | LABORATORY | | | | [place], | | | | | | [place] [address] | | | | + + + + + + + + | Specimen | + + | Blood | + + + + + + + | Performing | Address | City/State/Zipcode | Phone Number | | Organization | | | | + + + + + | [facility] | [address] | [place] [address] | [phone] | + + + + + Basic [...] | | | | | | MDRD [facility] traceable | | | | | | equation.Testing | | | | | | performed at [facility], [address] | | | | | | [facility], | | | | | | [place] [address] | | | | + + + + + + + + | Specimen | + + | Blood | + + + + + + + | Performing | Address | City/State/Zipcode | Phone Number | | Organization | | | | + + + + + | [facility] | [address] | [place] [address] | [phone] | + + + + + Procalcitonin [...] | | | | | | at [facility];[address] | | | [address];[place] [address] | | | | + + + + + + + + | Specimen | + + | Blood | + + + + + + + | Performing | Address | City/State/Zipcode | Phone Number | | Organization | | | | + + + + + | [facility] | [address] | [place] [address] | [phone] | + + + + + CBC [...] at | | | | | | [facility], [address] [place] [address] | | | | | | [place], [place] | | | | | | [address] | | | | + + + + + + + + | Specimen | + + | Blood | + + + + + + + | Performing | Address | City/State/Zipcode | Phone Number | | Organization | | | | + + + + + | [facility] | [address] | [place] [address] | [phone] | + + + + + Magnesium [...] | | | | | [place] [address] | | | | + + + + + + + + | Specimen | + + | Blood | + + + + + + + | Performing | Address | City/State/Zipcode | Phone Number | | Organization | | | | + + + + + | [facility] | [address] | [place] [address] | [phone] | + + + + + Basic [...] | 8.8 | 8.5 - 10.5 | [facility] | | | | | mg/dL | LABORATORY | | + + + + + + | Estimated | >60Comment: GFR <60: | >60 | [facility] | | | GFR | CHRONIC KIDNEY [...] | | | | | | MDRD [facility] traceable | | | | | | equation.Testing | | | | | | performed at [facility], [address] | | | | | | [facility], | | | | | | [place] [address] | | | | + + + + + + + + | Specimen | + + | Blood | + + + + + + + | Performing | Address | City/State/Zipcode | Phone Number | | Organization | | | | + + + + + | [facility] | [address] | [place] [address] | [phone] | + + + + + CBC [...] at | | | | | | [facility], [address] [facility] | | | | | | [place] | | | | | | [address] | | | | + + + + + + + + | Specimen | + + | Blood | + + + + + + + | Performing | Address | City/State/Zipcode | Phone Number | | Organization | | | | + + + + + | [facility] | [address] | [place] [address] | [phone] | + + + + + Magnesium [...] | | | | | [place] [address] | | | | + + + + + + + + | Specimen | + + | Blood | + + + + + + + | Performing | Address | City/State/Zipcode | Phone Number | | Organization | | | | + + + + + | [facility] | [address] | [place] [address] | [phone] | + + + + + Basic [...] | | | | | performed at [facility], [address] | | | | | | [facility], | | | | | | [place] [address] | | | | + + + + + + + + | Specimen | + + | Blood | + + + + + + + | Performing | Address | City/State/Zipcode | Phone Number | | Organization | | | | + + + + + | [facility] | [address] | [place] [address] | [phone] | + + + + + CBC [...] | RBC AND PLT MORPHOLOGY | | [facility] | | | Morphology | APPEAR NORMALComment: | | LABORATORY | | | | Testing performed at | | | | | | [facility], [address] [facility] | | | | | | [place] | | | | | | [address] | | | | + + + + + + + + | Specimen | + + | Blood | + + + + + + + | Performing | Address | City/State/Zipcode | Phone Number | | Organization | | | | + + + + + | [facility] | [address] | [place] [address] | [phone] | + + + + + Magnesium (11/04/2018 3:53 AM PDT) + + + + + + | Component | Value | Ref Range | Performed | Pathologist | | | | | At | Signature | + + + + + + | Magnesium | 2.7 (H)Comment: Testing | 1.7 - 2.4 mg/dL | [facility] | | | | performed at [facility], [address] | | LABORATORY | | | | [place], | | | | | | [place] [address] | | | | + + + + + + + + | Specimen | + + | Blood | + + + + + + + | Performing | Address | City/State/Zipcode | Phone Number | | Organization | | | | + + + + + | [facility] | [address] | [place] [address] | [phone] | + + + + + Basic [...] | | | | | | MDRD [facility] traceable | | | | | | equation.Testing | | | | | | performed at [facility], [address] | | | | | | [facility], | | | | | | [place] [address] | | | | + + + + + + + + | Specimen | + + | Blood | + + + + + + + | Performing | Address | City/State/Zipcode | Phone Number | | Organization | | | | + + + + + | [facility] | [address] | [place] [address] | [phone] | + + + + + CBC [...] | | | | | performed at [facility], [address] | | | | | | [address] [place], | | | | | | [place] [address] | | | | + + + + + + + + | Specimen | + + | Blood | + + + + + + + | Performing | Address | City/State/Zipcode | Phone Number | | Organization | | | | + + + + + | [facility] | [address] | [place] [address] | [phone] | + + + + + Magnesium (11/03/2018 3:58 AM PDT) + + + + + + | Component | Value | Ref Range | Performed | Pathologist | | | | | At | Signature | + + + + + + | Magnesium | 2.7 (H)Comment: Testing | 1.7 - 2.4 mg/dL | [facility] | | | | performed at [facility], [address] | | LABORATORY | | | | [place], | | | | | | [place] [address] | | | | + + + + + + + + | Specimen | + + | Blood | + + + + + + + | Performing | Address | City/State/Zipcode | Phone Number | | Organization | | | | + + + + + | [facility] | [address] | [place] [address] | [phone] | + + + + + Basic [...] 8.1 (L) | 8.5 - 10.5 | [facility] | | | | | mg/dL | LABORATORY | | + + + + + + | Estimated | >60Comment: GFR <60: | >60 | [facility] | | | GFR | CHRONIC KIDNEY [...] | | | | | performed at [facility], [address] | | | | | | [facility], | | | | | | [place] [address] | | | | + + + + + + + + | Specimen | + + | Blood | + + + + + + + | Performing | Address | City/State/Zipcode | Phone Number | | Organization | | | | + + + + + | [facility] | [address] | [place] [address] | [phone] | + + + + + CBC [...] at | | | | | | [facility], [address] [facility] | | | | | | [place] | | | | | | [address] | | | | + + + + + + + + | Specimen | + + | Blood | + + + + + + + | Performing | Address | City/State/Zipcode | Phone Number | | Organization | | | | + + + + + | [facility] | [address] | [place] [address] | [phone] | + + + + + Magnesium (11/02/2018 4:08 AM PDT) + + + + + + | Component | Value | Ref Range | Performed | Pathologist | | | | | At | Signature | + + + + + + | Magnesium | 2.8 (H)Comment: Testing | 1.7 - 2.4 mg/dL | [facility] | | | | performed at [facility], [address] | | LABORATORY | | | | [place], | | | | | | [place] [address] | | | | + + + + + + + + | Specimen | + + | Blood | + + + + + + + | Performing | Address | City/State/Zipcode | Phone Number | | Organization | | | | + + + + + | [facility] | [address] | [place] [address] | [phone] | + + + + + Basic [...] | >60Comment: GFR <60: | >60 | [facility] | | | GFR | CHRONIC KIDNEY [...] | | | | | performed at [facility], [address] | | | | | | [facility], | | | | | | [place] [address] | | | | + + + + + + + + | Specimen | + + | Blood | + + + + + + + | Performing | Address | City/State/Zipcode | Phone Number | | Organization | | | | + + + + + | [facility] | [address] | [place] [address] | [phone] | + + + + + CBC [...] [place] | | | | | | [address] | | | | + + + + + + + + | Specimen | + + | Blood | + + + + + + + | Performing | Address | City/State/Zipcode | Phone Number | | Organization | | | | + + + + + | [facility] | [address] | [place] [address] | [phone] | + + + + + Magnesium [...] | | | | | [place] [address] | | | | + + + + + + + + | Specimen | + + | Blood | + + + + + + + | Performing | Address | City/State/Zipcode | Phone Number | | Organization | | | | + + + + + | [facility] | [address] | [place] [address] | [phone] | + + + + + Basic [...] | | | | | performed at [facility], [address] | | | | | | [facility], | | | | | | [place] [address] | | | | + + + + + + + + | Specimen | + + | Blood | + + + + + + + | Performing | Address | City/State/Zipcode | Phone Number | | Organization | | | | + + + + + | [facility] | [address] | [place] [address] | [phone] | + + + + + ANTHONY Amor, Reflex (11/01/2018 4:17 AM PDT) + + + + + + | Component | Value | Ref Range | Performed | Pathologist | | | | | At | Signature | + + + + + + | ANTHONY Screen, | NegativeComment: Testing | Negative | [facility] | | | Qual | performed at [facility] | | LABORATORY | | | | [place] [address] | | | | | | [place] [address] | | | | + + + [...] | | | | | with both KY-3 and | | | | | | MPO-ANCA enzyme | | | | | | immunoassays. [facility] | [...] Testing | 0.0 - 3.5 U/mL | [facility] | | | 3 Antibody | performed by [facility], | | LABORATORY | | | | [address], | | | | | | [place] [address] | | | | + + + + + + + + | Specimen | + + | Blood | + + + + + + + | Performing | Address | City/State/Zipcode | Phone Number | | Organization | | | | + + + + + | [facility] | [address] | [place] [address] | [phone] | + + + + + Procalcitonin [...] | | | | | | at [facility];[address] [facility] | | | | | | [place] [address] | | | | + + + + + + + + | Specimen | + + | Blood | + + + + + + + | Performing | Address | City/State/Zipcode | Phone Number | | Organization | | | | + + + + + | [facility] | [address] | [place] [address] | [phone] | + + + + + Potassium (10/31/2018 6:15 PM PDT) + + + + + + | Component | Value | Ref Range | Performed | Pathologist | | | | | At | Signature | + + + + + + | K | 3.8Comment: Testing | 3.5 - 4.9 | [facility] | | | | performed at [facility];[address] | mmol/L | LABORATORY | | | | [address];[place] | | | | | | [address] | | | | + + + + + + + + | Specimen | + + | Blood | + + + + + + + | Performing | Address | City/State/Zipcode | Phone Number | | Organization | | | | + + + + + | [facility] | [address] | [place] [address] | [phone] | + + + + + CBC [...] LABORATORY | | | | performed at [facility], [address] | | | | | | [address], | | | | | | [place] [address] | | | | | | | | | | + + + + + + + + | Specimen | + + | Blood | + + + + + + + | Performing | Address | City/State/Zipcode | Phone Number | | Organization | | | | + + + + + | [facility] | [address] | [place] [address] | [phone] | + + + + + Magnesium (10/31/2018 4:14 AM PDT) + + + + + + | Component | Value | Ref Range | Performed | Pathologist | | | | | At | Signature | + + + + + + | Magnesium | 2.3Comment: Testing | 1.7 - 2.4 mg/dL | [facility] | | | | performed at [facility], [address] | | LABORATORY | | | | [address], | | | | | | [place] [address] | | | | + + + + + + + + | Specimen | + + | Blood | + + + + + + + | Performing | Address | City/State/Zipcode | Phone Number | | Organization | | | | + + + + + | [facility] | [address] | [place] [address] | [phone] | + + + + + Basic [...] | | | | | performed at [facility], [address] | | | | | | [address], | | | | | | [place] [address] | | | | + + + + + + + + | Specimen | + + | Blood | + + + + + + + | Performing | Address | City/State/Zipcode | Phone Number | | Organization | | | | + + + + + | [facility] | [address] | [place] [address] | [phone] | + + + + + Phosphorus (10/31/2018 4:14 AM PDT) + + + + + + | Component | Value | Ref Range | Performed | Pathologist | | | | | At | Signature | + + + + + + | Phosphorus | 3.4Comment: Testing | 2.3 - 4.8 mg/dL | [facility] | | | | performed at [facility], [address] | | LABORATORY | | | | [address], | | | | | | [place] [address] | | | | + + + + + + + + | Specimen | + + | Blood | + + + + + + + | Performing | Address | City/State/Zipcode | Phone Number | | Organization | | | | + + + + + | [facility] | [address] | [place] [address] | [phone] | + + + + + XR [...] LABORATORY | | | | performed at [facility], [address] | | | | | | [address], | | | | | | [place] [address] | | | | | | | | | | + + + + + + + + | Specimen | + + | Blood | + + + + + + + | Performing | Address | City/State/Zipcode | Phone Number | | Organization | | | | + + + + + | [facility] | [address] | [place] [address] | [phone] | + + + + + Magnesium (10/30/2018 4:18 AM PDT) + + + + + + | Component | Value | Ref Range | Performed | Pathologist | | | | | At | Signature | + + + + + + | Magnesium | 2.3Comment: Testing | 1.7 - 2.4 mg/dL | [facility] | | | | performed at [facility], [address] | | LABORATORY | | | | [address], | | | | | | [place] [address] | | | | + + + + + + + + | Specimen | + + | Blood | + + + + + + + | Performing | Address | City/State/Zipcode | Phone Number | | Organization | | | | + + + + + | [facility] | [address] | [place] [address] | [phone] | + + + + + Basic [...] | | | | | performed at [facility], [address] | | | | | | [facility], | | | | | | [place] [address] | | | | + + + + + + + + | Specimen | + + | Blood | + + + + + + + | Performing | Address | City/State/Zipcode | Phone Number | | Organization | | | | + + + + + | [facility] | [address] | [place] [address] | [phone] | + + + + + Vitamin D, Deficiency Screen (25-Hydroxy) (10/30/2018 4:18 AM PDT) + + + + + + | Component | Value | Ref Range | Performed | Pathologist | | | | | At | Signature | + + + + + + | Vit D, | <12 (L)Comment: <20 | 30 - 150 ng/mL | [facility] | | | 25-Hydroxy | ng/mL Suggests [...] | | | | | performed at [facility], [address] | | | | | | [address], | | | | | | [place] [address] | | | | + + + + + + + + | Specimen | + + | Blood | + + + + + + + | Performing | Address | City/State/Zipcode | Phone Number | | Organization | | | | + + + + + | [facility] | [address] | [place] [address] | [phone] | + + + + + Culture, [...] RESULT | Testing performed at | | [facility] | | | | [facility], [address] [facility] | | LABORATORY | | | | [address], [place], [place] | | | | | | [id number]: Testing | | | | | | performed at [facility], [address] | | | | | | [facility], | | | | | | [place] [address] | | | | + + + + + + + + | Specimen | + + | Body Fluid - Coughed | | sputum specimen | | (specimen) | + + + + + + + | Performing | Address | City/State/Zipcode | Phone Number | | Organization | | | | + + + + + | [facility] | [address] | [place] [address] | [phone] | + + + + + ECHO [...] Testing | 1.7 - 2.4 mg/dL | [facility] | | | | performed at [facility], [address] | | LABORATORY | | | | [address], | | | | | | [place] [address] | | | | + + + + + + + + | Specimen | + + | Blood | + + + + + + + | Performing | Address | City/State/Zipcode | Phone Number | | Organization | | | | + + + + + | [facility] | [address] | [place] [address] | [phone] | + + + + + Basic [...] | | | | | performed at [facility], [address] | | | | | | [address], | | | | | | [place] [address] | | | | + + + + + + + + | Specimen | + + | Blood | + + + + + + + | Performing | Address | City/State/Zipcode | Phone Number | | Organization | | | | + + + + + | [facility] | [address] [facility] | [place] [address] | [phone] | + + + + + CBC [...] at | | | | | | [facility], [address] [facility] | | | | | | [place] | | | | | | [address] | | | | + + + + + + + + | Specimen | + + | Blood | + + + + + + + | Performing | Address | City/State/Zipcode | Phone Number | | Organization | | | | + + + + + | [facility] | [address] | [place] [address] | [phone] | + + + + + VAS [...] + + | Performing | Address | City/State/[facility] | Phone Number | | [...] | | | | | | at [facility];[address] | | | | | | [place] [address] | | | | + + + + + + + + | Specimen | + + | Blood | + + + + + + + | Performing | Address | City/State/Zipcode | Phone Number | | Organization | | | | + + + + + | [facility] | [address] | [place] [address] | [phone] | + + + + + B [...] | | LABORATORY | | | | [facility];[address] [facility] | | | | | | Blvd;[place] [address] | | | | + + + + + + + + | Specimen | + + | Blood | + + + + + + + | Performing | Address | City/State/Zipcode | Phone Number | | Organization | | | | + + + + + | [facility] | [address] | [place] [address] | [phone] | + + + + + Basic [...] | >60Comment: GFR <60: | >60 | [facility] | | | GFR | CHRONIC KIDNEY [...] | | | | | | MDRD IDHI traceable | | | | | | equation.Testing | | | | | | performed at [facility];[address] | | | | | | [facility];[place], [place] | | | | | | [address] | | | | + + + + + + + + | Specimen | + + | Blood | + + + + + + + | Performing | Address | City/State/Zipcode | Phone Number | | Organization | | | | + + + + + | [facility] | [address] | [place] [address] | [phone] | + + + + + CBC [...] | | | | | performed at [facility];[address] | | | | | | [address];[place] | | | | | | [address] | | | | + + + + + + + + | Specimen | + + | Blood | + + + + + + + | Performing | Address | City/State/Zipcode | Phone Number | | Organization | | | | + + + + + | [facility] | [address] | [place] [address] | [phone] | + + + + + CT [...] | >60Comment: GFR <60: | >60 | [facility] | | | GFR | CHRONIC KIDNEY [...] | | | | | performed at [facility];[address] | | | | | | [facility];[place], [place] | | | | | | [address] | | | | + + + + + + + + | Specimen | + + | Blood | + + + + + + + | Performing | Address | City/State/Zipcode | Phone Number | | Organization | | | | + + + + + | [facility] | [address] | [place] [address] | [phone] | + + + + + CBC [...] [facility] | | | | performed at [facility], [address] | | LABORATORY | | | | [address], | | | | | | [place] [address] | | | | + + + + + + + + | Specimen | + + | Blood | + + + + + + + | Performing | Address | City/State/Zipcode | Phone Number | | Organization | | | | + + + + + | [facility] | [address] | [place] [address] | [phone] | + + + + + ECG [...] | | | | | | by HTI CLAYTON MD (206) | | | | [...] [facility] | | | | performed at [facility], [address] | | LABORATORY | | | | [address], | | | | | | [place] [address] | | | | + + + + + + + + | Specimen | + + | Blood | + + + + + + + | Performing | Address | City/State/Zipcode | Phone Number | | Organization | | | | + + + + + | [facility] | [address] | [place] [address] | [phone] | + + + + + XR [...] | | | abnormalities are grossly identified. Transmission Builder sections are | | | submitted in [...] interpretation was | | | performed by [employer], [facility], [facility] | | | [place], [place] (Parole Board Member: Víctor Livingston M.D.; | | | CLIA#: [id number]).The technical component was performed by [facility] | | | [facility], [address] [place] [address] (Parole Board Member: | | | Nadiya Sharma MD; CLIA# [id number]). Diagnostician: Víctor Livingston | | | MDPathologistElectronically Signed 10/26/2018 | | | | | |Diagnostician: Víctro Livingston MD | | |Pathologist | | [...] | | LABORATORY | | | | [address];[place] [address] | | | | + + + [...] RESULT | Testing performed at | | [facility] | | | | [facility], [address] | | LABORATORY | | | | [place] | | | | | | [address]Gdfzsmg: Testing | | | | | | performed at [facility], [address] | | | | | | [address], [place] | | | | | | [address] | | | | + + + + + + + + | Specimen | + + | | + + + + + + + | Performing | Address | City/State/Zipcode | Phone Number | | Organization | | | | + + + + + | [facility] | [address] | [place] [address] | [phone] | + + + + + Culture, [...] [place] | | | | | | [address]Jeexgsj: Testing | | | | | | performed at [facility], [address] | | | | | | [address], | | | | | | [place] [address] | | | | + + + + + + + + | Specimen | + + | Tissue - Hip joint | | synovium (body | | structure) | + + + + + + + | Performing | Address | City/State/Zipcode | Phone Number | | Organization | | | | + + + + + | [facility] | [address] | [place] [address] | [phone] | + + + + + Type [...] + + + | BB [facility] | [id number] | | [facility] | | | | | | LABORATORY | | + + + + + + | BB BAND | Testing performed at | | [facility] | | | | [facility];[address] | | LABORATORY | | | | [address];[place] [address] | | | | + + + + + + + + | Specimen | + + | Blood | + + + + + + + | Performing | Address | City/State/Zipcode | Phone Number | | Organization | | | | + + + + + | [facility] | [address] | [place] [address] | [phone] | + + + + + POCT Test, Urine, Qual (10/24/2018 1:27 PM PDT) + + + + + + | Component | Value | Ref Range | Performed | Pathologist | | | | | At | Signature | + + + + + + | HCG, | NEGATIVEComment: Testing | NEG | [facility] | | | Quantitativ | performed at [facility];[address] | | LABORATORY | | | [address] | [address];[place] | | | | | | [address] | | | | + + + + + + + + | Specimen | + + | | + + + + + + + | Performing | Address | City/State/Zipcode | Phone Number | | Organization | | | | + + + + + | [facility] | [address] | [place] [address] | [phone] | + + + + + documented [...] | | | | | modification) on [facility] 11/02/18 at | | | | [...] | | +---+---+ + +-------+ +--------+---+---+ | [facility] | Given | 10/25/19 | [...]
--- OUTSIDE RECORDS SUMMARY | ~2019-03-11 | XMS | Clinical Summary ---
Demographics + + + | Address | [address] | | | [place] [address] | + + + | Home Phone [...] + | Author | [facility] (Historical as of | | | 10-21-18) | + + + | Organization | [facility] (Historical as of | | | 10-21-18) | + + + | Address | Unknown | + + + | Phone | Unavailable | + + + Support + + + + + | Name | Relationship | Address | Phone | + + + + + | Fabienne Juarez | ECON | [place] | | | | | [address] | | + + + + + Care Team Providers + +------+ + | Care Pull Over Machine Operator Name | Role | Phone [...] Overview: Added automatically from request for surgery [id number] | + + + + + | 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
--- OUTSIDE RECORDS SUMMARY | ~2019-03-11 | XMS | Encounter Summary ---
Demographics + + + | Address | [address] | | | [place] [address] | + + + | Home Phone | | + + + | Preferred Language | Unknown | + + + | Marital Status | | + + + | Yazdanism Affiliation | Unknown | + + + | Race | Unknown | + + + | Ethnic Group | Unknown | + + + Author + + + | Author | [facility] | | | and [place] | + + + | Organization | [facility] | | | and [place] | + + + | Address | Unknown | + + + | Phone | Unavailable | + + + Support + + + + + | Name | Relationship | Address | Phone | + + + + + | Fabienne Juarez | ECON | [place] | | | | | [address] | | + + + + + Care Team Providers + +------+ + | Care Room Attendant Name | Role | Phone | + +------+ + | No, Physician | PCP | Unavailable | + +------+ + Encounter Details +--------+ + + + + | Date | Type | Department | Care Team | Description | +--------+ + + + + | 10/18/ | Hospital | [facility] | Conversion | | | 2019 | Encounter | [facility] | Transaction, | | | | | [address] | Provider Unknown | | | | | [address] [place], [place] | [phone] | | | | | [address] | | | | | | [phone] | | | +--------+ + + + [...]
--- OUTSIDE RECORDS SUMMARY | ~2019-03-11 | XMS | Encounter Summary ---
Demographics + + + | Address | [address] | | | [place] [address] | + + + | Home Phone | | + + + | Preferred Language | Unknown | + + + | Marital Status | | + + + | Confucianist Affiliation | Unknown | + + + | Race | Unknown | + + + | Ethnic Group | Unknown | + + + Author + + + | Author | [facility] | | | and Silvestre[place] | + + + | Organization | [facility] | | | and [place] | + + + | Address | Unknown | + + + | Phone | Unavailable | + + + Support + + + + + | Name | Relationship | Address | Phone | + + + + + | Fabienne Juarez | ECON | [place] | | | | | [address] | | + + + + + Care Team Providers + +------+ + | Care Lighting Engineer Name | Role | Phone | [...] | | | | | encounter | [address] | | | | | | (HCC) | Phone: | | | | | | Mechanical | [phone] | | | | | | complication | Fax: | | | | | | of | [phone] | | | | | | prosthetic [...] | | | | | ([facility]) | | | + + [...] | | | | encounter | | [address] Phone: | | | | | (HCC) | | [phone] | | | | | Mechanical | | Fax: | | | | | complication | | [phone] | | | | | of | | | | | | | prosthetic | | | | | | | knee | | | | | | | implant, | | | | | | | initial | | | | | | | encounter | | | | | | | ([facility]) | | | | | | | Procedures | | | | | | | [place] | | | | | | [...] + + | 10/24/ | Hospital | [facility] | Miah Monique | Morbid obesity (HCC) | | 2019 - | Encounter | [facility] | MD [address] | (Primary Dx); Pain | | | | CARE FLOOR [address] | in prosthetic joint, | | 11/09/ | | [address] | [place] [address] | initial encounter | | 2019 | | [place] | [phone] | (HCC); Mechanical | | | | [address] | | complication of | | | | [phone] | | prosthetic knee | | | [...] | | | | | ([facility]) | +--------+ + + + + Social [...] underwent a [facility], comprising of an acetabular component revision. [...] and psychiatry was consulted. He r psychiatry KOSHER DIETARY SERVICE SUPERVISOR was also contacted and she was restarted [...] room air #Depression/anxiety/PTSD: -11/03/18 Discussed patient with [facility] [phone]. She has a diagnosis of PTSD and [...] TOTAL HIP; Surgeon: Miah Monique MD; Location: [facility] MAIN OR TOTAL HIP ARTHROPLASTY Left [...] * No resolved hospital problems. * Disposition: fdc Condition: Fair Code Status: Full Code Follow up: Miah Monique MD [address] [place] [id number] In 4 weeks For wound re-check and [...] more often than directed. Talk to your chemical analyst regarding the use of this medicine in [...] should report to your doctor or health physician assistant primary care as soon as p ossible: allergic reactions [...] attention (report to your doctor or health physician assistant primary care if they continue or are bothersome): diarrhea [...] for pain, tell your doctor or health physician assistant primary care if the pain lasts more than 10 [...] if prescribed by your doctor or health physician assistant primary care. Do not take aspirin or aspirin-like medicines [...] pharmacist, or health care provider. Copyright 2019 [employer] Albuterol inhalation aerosol Brand Names: Proair HFA, [...] ou have any questions. Talk to your chemical analyst regarding the use of this medicine in children. Special care may be needed. What side effects may I notice from receiving this medicine? Side effects that you should report to your doctor or health physician assistant primary care as soon as p ossible: allergic reactions [...] attention (report to your doctor or health physician assistant primary care if they continue or are bothersome): cough [...] this medicine? Tell your doctor or health physician assistant primary care if your symptoms do not improve. Do [...] more often than directed. Talk to your chemical analyst regarding the use of this medicine in children. Special care may be needed. What side effects may I notice from receiving this medicine? Side effects that you should report to your doctor or health physician assistant primary care as soon as p ossible: allergic reactions [...] attention (report to your doctor or health physician assistant primary care if they continue or are bothersome): blurred [...] pharmacist, or health care provider. Copyright 2019 [employer] Celecoxib capsules Brand Name: Celebrex What is [...] information carefully each time. Talk to your chemical analyst regarding the use of this medicine in children. Special care may be needed. What side effects may I notice from receiving this medicine? Side effects that you should report to your doctor or health physician assistant primary care as soon as p ossible: allergic reactions [...] attention (report to your doctor or health physician assistant primary care if they continue or are bothersome): constipation [...] this medicine? Tell your doctor or health physician assistant primary care if your pain does not get better. [...] roke, talk with your doctor or health physician assistant primary care. Do not take medicines such as ibuprofen [...] pharmacist, or health care provider. Copyright 2019 [employer] Furosemide tablets Brand Names: Active-Medicated Specimen Kit, [...] not take at bedtime. Talk to your chemical analyst regarding the use of this medicine in children. While this drug m ay be prescribed for selected conditions, precautions do apply. What side effects may I notice from receiving this medicine? Side effects that you should report to your doctor or health physician assistant primary care as soon as p ossible: blood in [...] attention (report to your doctor or health physician assistant primary care if they continue or are bothersome): headache [...] this medicine? Visit your doctor or health physician assistant primary care for regular checks on your progress. Check yo ur blood pressure regularly. Ask your doctor or health physician assistant primary care what your blood pre ssure should be, [...] information carefully each time. Talk to your chemical analyst regarding the use of this medicine in children. Special care may be needed. What side effects may I notice from receiving this medicine? Side effects that you should report to your doctor or health physician assistant primary care as soon as p ossible: allergic reactions like skin rash, itching or hives, swelling of the face, lips, or tong ue worsening of mood, thoughts or actions of suicide or dying Side effects that usually do not require medical attention (report to your doctor or health physician assistant primary care if they continue or are bothersome): constipation [...] this medicine? Visit your doctor or health physician assistant primary care for regular checks on your progress. You may want to keep a record at home of how you feel your condition is responding to treatment. You may want to share this information with your doctor or health physician assistant primary care at each vis it. You should contact your doctor or health physician assistant primary care if your seizures get worse or if you have any new types of seizures. Do not stop taking this medicine or any of your seiz ure medicines unless instructed by your doctor or health physician assistant primary care. Stopping your me dicine suddenly can increase [...] dying should be reported to your health physician assistant primary care right away. Women who become while using this medicine may enroll in the [place] Ant[place]p [place]ptic Drug Registry by calling . This registry collects informatio n about the safety of antiepileptic drug use during . NOTE:This sheet is a summary. It may not cover all possible information. If you have questi ons about this medicine, talk to your doctor, pharmacist, or health care provider. Copyright 2019 [employer] Morphine sustained-release tablets Brand Names: ARYMO ER, [...] information carefully each time. Talk to your chemical analyst regarding the use of this medicine in children. Special care may be needed. What side effects may I notice from receiving this medicine? Side effects that you should report to your doctor or health physician assistant primary care as soon as p ossible: allergic reactions [...] attention (report to your doctor or health physician assistant primary care if they continue or are bothersome): constipation [...] to an official disposal site. Contact the [facility] at [phone] or your [facility] government to find a site. If [...] this medicine? Tell your doctor or health physician assistant primary care if your pain does not go away, [...] pharmacist, or health care provider. Copyright 2019 [employer] Nicotine skin patches Brand Names: Habitrol, Nicoderm [...] the same area again. Talk to your chemical analyst regarding the use of this medicine in children. Special care may be needed. What side effects may I notice from receiving this medicine? Side effects that you should report to your doctor or health physician assistant primary care as soon as p ossible: allergic reactions [...] attention (report to your doctor or health physician assistant primary care if they continue or are bothersome): diarrhea [...] last for a few days. Call [facility] doctor or health physician assistant primary care if skin redness does not go away after 4 days, if your skin swells, or if you get a rash. If you are a diabetic and you quit smoking, the effects of insulin may be increased and you may need to reduce your insulin dose. Check with your doctor or health physician assistant primary care ab out how you should adjust your [...] pharmacist, or health care provider. Copyright 2019 [employer] Olanzapine tablets Brand Name: Cadencerexa What is [...] information carefully each time. Talk to your chemical analyst regarding the use of this medicine in children. While this drug m ay be prescribed for children as young as 13 years for selected conditions, precautions do a pply. What side effects may I notice from receiving this medicine? Side effects that you should report to your doctor or health physician assistant primary care as soon as p ossible: allergic reactions [...] attention (report to your doctor or health physician assistant primary care if they continue or are bothersome): changes [...] this medicine? Visit your doctor or health physician assistant primary care for regular checks on your progress. It may b e several weeks before you see the full effects of this medicine. Notify your doctor or [facility] physician assistant primary care if your symptoms get worse, if you have new symptoms, if you are having an unusual effect from this medicine, or if you feel out of control, very discouraged or th ink you might harm yourself or others. Do not suddenly stop taking this medicine. You may need to gradually reduce the dose. Ask y our doctor or health physician assistant primary care for advice. You may get dizzy or [...] allergies without asking your doctor or health physician assistant primary care for advice. Some ingredients can increase possible side effects. Your mouth may get dry. Chewing sugarless gum or sucking hard candy, and drinking plenty of water will help. This medicine can reduce the response of your body to heat or cold. Dress hydraulic spinner cold weat her and stay hydrated in [...] information carefully each time. Talk to your chemical analyst regarding the use of this medicine in children. Special care may be needed. What side effects may I notice from receiving this medicine? Side effects that you should report to your doctor or health physician assistant primary care as soon as p ossible: allergic reactions [...] attention (report to your doctor or health physician assistant primary care if they continue or are bothersome): constipation [...] to an official disposal site. Contact the [facility] at [phone] or your [facility] government to find a site. If you cannot return the medicine, flush it down the toilet. Do not use the medicine after the expiration date. What should I tell my health care provider before I take this medicine? They need to know if you have any of these conditions: All[place]ale's disease brain tumor head injury heart disease [...] this medicine? Tell your doctor or health physician assistant primary care if your pain does not go away, [...] avoid any side effects. Talk to your chemical analyst regarding the use of this medicine in children. Special care may be needed. What side effects may I notice from receiving this medicine? Side effects that you should report to your doctor or health physician assistant primary care as soon as p ossible: allergic reactions [...] attention (report to your doctor or health physician assistant primary care if they continue or are bothersome): confusion, [...] ta lk to your doctor or health physician assistant primary care. You may need to miss a dose [...] this medicine? Visit your doctor or health physician assistant primary care for regular checks on your progress. If [...] have surgery, tell your doctor or health physician assistant primary care that you hav e taken this medicine within the last twelve months. Ask your doctor or health physician assistant primary care about your diet. You may need to lower the amou nt of salt you eat. This medicine may affect blood sugar levels. If you have diabetes, check with your doctor o r health physician assistant primary care before you change your diet or the dose of your diabetic medicine . NOTE:This sheet is a summary. It may not cover all possible information. If you have questi ons about this medicine, talk to your doctor, pharmacist, or health care provider. Copyright 2019 [employer] Senna tablets or capsules Brand Names: Black [...] e often than directed. Talk to your chemical analyst regarding the use of this medicine in children. While this medici ne may be prescribed for children as young as 2 years for selected conditions, precautions d o apply. What side effects may I notice from receiving this medicine? Side effects that you should report to your doctor or health physician assistant primary care as soon as p ossible: diarrhea muscle weakness nausea, vomiting unusual weight loss Side effects that usually do not require medical attention (report to your doctor or health physician assistant primary care if they continue or are bothersome): bloating [...] check with yo ur doctor or health physician assistant primary care. NOTE:This sheet is a summary. It may [...] information carefully each time. Talk to your chemical analyst regarding the use of this medicine in children. Special care may be needed. What side effects may I notice from receiving this medicine? Side effects that you should report to your doctor or health physician assistant primary care as soon as p ossible: allergic reactions [...] attention (report to your doctor or health physician assistant primary care if they continue or are bothersome): constipation [...] this medicine? Tell your doctor or health physician assistant primary care if your pain does not go away, [...] 3 days, call your doctor or health physician assistant primary care. Your mouth may get dry. Chewing sugarless [...] attachments cannot be sent through Care Everywhere.Sepsis (Armenian )Sepsis, Understanding (Armenian)documented in this encounter Medications at Time of [...] Sylvie Ramsey AGE/SEX: 48 y.o. female ROOM: [facility]/9119- : 1970 PCP: No Physician on file [...] over2 weeks #Depression/anxiety/PTSD: -11/03/18 Discussed patient with [facility] [phone]. She has a diagnosis of PTSD and [...] encounter as of 11/08/18-12:01 IMAGING: Reviewed in [facility], no new results. PROBLEM LIST [...] as able #Depression/anxiety/PTSD: -11/03/18 Discussed patient with [facility] [phone]. She has a diagnosis of PTSD and [...] and psychiat ry was consulted. Her psychiatry KOSHER DIETARY SERVICE SUPERVISOR was also contacted and she was restarted [...] as tolerated #Depression/anxiety/PTSD: -11/03/18 Discussed patient with [facility] [phone]. She has a diagnosis of PTSD and [...] TOTAL HIP; Surgeon: Miah Monique MD; Location: [facility] MAIN OR TOTAL HIP ARTHROPLASTY Left 2014 [facility] Family History Problem Relation Age of [...] MIGDALIA Thompson has created this entry using [employer] Recognition [employer]wave e and [employer] macros. The entry has been reviewed and [...] agitaitation and psychiatry was consulted. Her psychiatry KOSHER DIETARY SERVICE SUPERVISOR was also contacted and she was restarted [...] hours. No results for input(s): PHART, PO2ART, NXJ3XIF, T2XNRVEN, BEART in the last 168 hours. No results for input(s): APTT, INR, PTT in the last 168 hours. No results for input(s): TSH in the last 168 hours. Invalid input(s): T3FREE, FREET4 No results for input(s): TROPONINT in the last 168 hours. Invalid input(s): CKTOTAL, TROPONINI, CKMBINDEX Microbiology Results (72 hrs) Procedure Component Value Units Date/Time Culture, Respiratory, Lower, Smear [[id number]] Collected: 10/29/181728 Order Status: Completed Lab Status: [...] HELD 48 HOURS. RESULT Testing performed at [facility], [address] [place] [id number] Comment: Testing performed at [facility], [address] [place] [id number] RADIOLOGY: Recent Results (from the past 360 [...] study. Depression/anxiety/ptsd - 11/03/18 Discussed patient with [facility] [phone]. She has a diagnosis o f PTSD [...] and managing patient and counseling/coordination. Dictation software, [employer], used which may contain error for similar [...] per ortho standpoint - Planned transfer to [facility] MIGDALIA Thompson 11/05/2018 10:52 MIGDALIA Thompson has created this entry using [employer] Voice Recognition soft[employer]wave e and [employer] macros. The entry has been reviewed and there may still exist sound alike word errors. Kush Miller MD - 11/05/2018 9:[address] [facility] Service: Hospitalist Progress Note Pt: Sylvie Ramsey AGE/SEX: 48 y.o. female ROOM: [facility]/9119- : 1970 PCP: No Physician on file [...] agitaitation and psychiatry was consulted. Her psychiatry KOSHER DIETARY SERVICE SUPERVISOR was also contacted and she was restarted [...] hours. No results for input(s): PHART, PO2ART, [id number], [id number], BEART in the last 168 hours. No results for input(s): APTT, INR, PTT in the last 168 hours. No results for input(s): TSH in the last 168 hours. Invalid input(s): T3FREE, FREET4 No results for input(s): TROPONINT in the last 168 hours. Invalid input(s): CKTOTAL, TROPONINI, CKMBINDEX Microbiology Results (72 hrs) Procedure Component Value Units Date/Time Culture, Respiratory, Lower, Smear [[id number]] Collected: 10/29/181728 Order Status: Completed Lab Status: [...] HELD 48 HOURS. RESULT Testing performed at [facility], [address] [place] [address] Comment: Testing performed at [facility], [address] [place] [address] RADIOLOGY: Recent Results (from the past 360 [...] study. Depression/anxiety/ptsd - 11/03/18 Discussed patient with [facility] [phone]. She has a diagnosis o f PTSD [...] and managing patient and counseling/coordination. Dictation software, [employer], used which may contain error for similar sounding words even af ter review. Personal communication requested for any clarification. Portions of this chart may have been copied from previous notes for continuity of care purp ose Romana Hubbard RN - 11/05/2018 6:29 AM PDTPt has been stable and [facility]. Cooperative with all care. High flow O2 requirements have remained unchanged from previous shift. Chart check completed. Shanice Elizabeth RN - 11/04/2018 5:56 PM PDTSepsis team signing off. Please call with any questions/concerns. [phone]. Shanice Rahman RN P PREMStLala elizabeth RN [...] thanks for coming by." elvia e xplained reinforcing iron worker helper availability days & nights if needed. Pt thanked [facility]. Chaplain David Greeney Donovan Belle PA [...] MIGDALIA Thompson has created this entry using [employer] and [employer] macros. The entry has been reviewed and there may still exist sound alike word errors. Kush Miller MD - 11/04/2018 11:[address] [facility] Service: Hospitalist Progress Note Pt: Sylvie Ramsey AGE/SEX: 48 y.o. female ROOM: [facility]9119-01 : 1970 PCP: No Physician [...] hours. No results for input(s): PHART, PO2ART, FXS0BKJ, [id number], BEART in the last 168 hours. No results for input(s): APTT, INR, PTT in the last 168 hours. No results for input(s): TSH in the last 168 hours. Invalid input(s): T3FREE, FREET4 No results for input(s): TROPONINT in the last 168 hours. Invalid input(s): CKTOTAL, TROPONINI, CKMBINDEX Microbiology Results (72 hrs) Procedure Component Value Units Date/Time Culture, Respiratory, Lower, Smear [[id number]] Collected: 10/29/181728 Order Status: Completed Lab Status: [...] HELD 48 HOURS. RESULT Testing performed at [facility], [address] [place] [address] Comment: Testing performed at [facility], [facility] [place] [address] RADIOLOGY: Recent Results (from the past 360 [...] component. No unexpected postoperative findings. Dictated by: Kroina Gabriel George Signed by: Korina Machado Michael [...] study. Depression/anxiety/ptsd - 11/03/18 Discussed patient with [facility] [phone]. She has a diagnosis o f PTSD [...] and managing patient and counseling/coordination. Dictation software, [employer], used which may contain error for similar [...] to have regu lar p.o. Intake. Per waterproof bag sewer note oxygenation is improving. 1. Pain in prosthetic joint, initial encounter ([facility]) 2. Mechanical complication of prosthetic knee implant, initial encounter ([facility]) 3. Mechanical instability of hip prosthesis ([facility]) 4. Shortness of breath 5. Acute respiratory failure with hypoxia ([facility]) Past Medical History: Diagnosis Date Anxiety Anxious depression Arthralgia Arthritis Asthma not using inhalers DDD (degenerative disc disease), lumbar Deliberate self-cutting history of Depression Heartburn Hemorrhage of gastrointestinal tract 2015 upper and lower due ulcers Morbid obesity with BMI of 50.0-59.9, adult ([facility]) Pain in prosthetic joint ([facility]) with instability Panic attacks states can be severe prior to surgeries PTSD (post-traumatic stress disorder) Current Facility-Administered Medications Medication Dose Route Frequency Provider Last Rate Last Dose acetaminophen (TYLENOL) tablet 650 mg 650 mg Oral Q6H PRN Kush Ge MD 650 mg at 10/31/18 1438 albuterol 90 mcg/puff inhaler 2 puff 2 puff Inhalation RT Q4H PRN Fab Vicekrs D 2 puff at 11/01/18 1619 albuterol-ipratropium [...] 25 mg 25 mg Oral Q4H PRN iMah rod MD docusate sodium (COLACE) capsule 100 [...] doing mobility exercises. Security, risk, pcc, stepdown research laboratory manager, primary md, and lead rn present with bedside rn. Pt crying and yelling that she doesn't want to "be here". Per p malia disruptive/violent pt paperwork filled out. Situation and pt expectations reviewed by and research laboratory manager with pt. Sitter at bedside currently. [...] room, pt through breakfast tray at [facility]. Dada mares called by field staff. pt. also stated during session everything [...] hours. No results for input(s): PHART, PO2ART, LMY4NXF, F3YOOZTN, BEART in the last 168 hours. No results for input(s): APTT, INR, PTT in the last 168 hours. No results for input(s): TSH, T3FREE in the last 168 hours. Invalid input(s): FREET4 No results for input(s): TROPONINT in the last 168 hours. Invalid input(s): CKTOTAL, TROPONINI, CKMBINDEX Microbiology Results (72 hrs) Procedure Component Value Units Date/Time Culture, Respiratory, Lower, Smear [[id number]] Collected: 10/29/181728 Order Status: Completed Lab Status: [...] HELD 48 HOURS. RESULT Testing performed at [facility], [address] [place] [address] Comment: Testing performed at [facility], [address] [place] [address] RADIOLOGY: Recent Results (from the past 360 [...] sleep study. Depression/anxiety/ptsd - Discussed patient with [facility] [phone]. She has a diagnosis of PTSD a [...] making capacity - consulted psychiatry. Appreciate recs. ag service manager to attempt to obtain more information [...] and managing patient and counseling/coordination. Dictation software, [employer], used which may contain error for similar [...] to be transfer to a hospital in [place], or that she was going to call the police and maxim the hospital. , lead nurse, manager case management and risk not ified. Pt remained calmed [...] time and continue to be managed by waterproof bag sewer and hospitalist . No new orthopedics events 1. Pain in prosthetic joint, initial encounter ([facility]) 2. Mechanical complication of prosthetic knee implant, initial encounter ([facility]) 3. Mechanical instability of hip prosthesis ([facility]) 4. Shortness of breath 5. Acute respiratory failure with hypoxia ([facility]) Past Medical History: Diagnosis Date Anxiety Anxious depression Arthralgia Arthritis Asthma not using inhalers DDD (degenerative disc disease), lumbar Deliberate self-cutting history of Depression Heartburn Hemorrhage of gastrointestinal tract 2015 upper and lower due ulcers Morbid obesity with BMI of 50.0-59.9, adult ([facility]) Pain in prosthetic joint ([facility]) with instability Panic attacks states [...] weightbearing Continue DVT prophylaxis Continue hospitalist and waterproof bag sewer management for comorbidities plan will be to [...] hours. No results for input(s): PHART, PO2ART, SFT6HIG, N7GLUDPD, BEART in the last 168 hours. No results for input(s): APTT, INR, PTT in the last 168 hours. No results for input(s): TSH, T3FREE in the last 168 hours. Invalid input(s): FREET4 No results for input(s): TROPONINT in the last 168 hours. Invalid input(s): CKTOTAL, TROPONINI, CKMBINDEX Microbiology Results (72 hrs) Procedure Component Value Units Date/Time Culture, Respiratory, Lower, Smear [[id number]] Collected: 10/29/181728 Order Status: Completed Lab Status: [...] HELD 48 HOURS. RESULT Testing performed at [facility], [address] [place] [address] Comment: Testing performed at [facility], [address] [place] [address] RADIOLOGY: Recent Results (from the past 360 [...] making capacity - consulted psychiatry. Appreciate recs. ag service manager to attempt to obtain more information [...] and managing patient and counseling/coordination. Dictation software, [employer], used which may contain error for similar [...] continues to be managed by hospitalist and waterproof bag sewer and is currently on BiPAP 1. Pain in prosthetic joint, initial encounter ([facility]) 2. Mechanical complication of prosthetic knee implant, initial encounter ([facility]) 3. Mechanical instability of hip prosthesis (HCC) 4. Shortness of breath 5. Acute respiratory failure with hypoxia ([facility]) Past Medical History: Diagnosis Date Anxiety Anxious depression Arthralgia Arthritis Asthma not using inhalers DDD (degenerative disc disease), lumbar Deliberate self-cutting history of Depression Heartburn Hemorrhage of gastrointestinal tract 2015 upper and lower due ulcers Morbid obesity with BMI of 50.0-59.9, adult ([facility]) Pain in prosthetic joint (HCC) [...] mg Int ravenous 3 times per day aSndy Joseph MD 80 mg at 11/01/18 1343 [...] hours. No results for input(s): PHART, PO2ART, XQO5CTU, B5KTOAAL, BEART in the last 168 hours. No results for input(s): APTT, INR, PTT in the last 168 hours. No results for input(s): TSH, T3FREE in the last 168 hours. Invalid input(s): FREET4 No results for input(s): TROPONINT in the last 168 hours. Invalid input(s): CKTOTAL, TROPONINI, CKMBINDEX Microbiology Results (72 hrs) Procedure Component Value Units Date/Time Culture, Respiratory, Lower, Smear [[id number]] Collected: 10/29/181728 Order Status: Completed Lab Status: [...] HELD 48 HOURS. RESULT Testing performed at [facility], [address] [place] [address] Comment: Testing performed at [facility], [address] [place] [address] RADIOLOGY: Recent Results (from the past 360 [...] and managing patient and counseling/coordination. Dictation software, [employer], used which may contain error for similar [...] in prosthetic joint, initial encounter ([facility]) 2. Mechanical complication of prosthetic [...] mg 50 mg Oral Q6H PRN Yuki Preutt MD 50 mg at 10/30/18 0313 Allergies [...] hours. No results for input(s): PHART, PO2ART, BGO7QVE, O6TAGUYW, BEART in the last 168 hours. No results for input(s): APTT, INR, PTT in the last 168 hours. No results for input(s): TSH, T3FREE in the last 168 hours. Invalid input(s): FREET4 No results for input(s): TROPONINT in the last 168 hours. Invalid input(s): CKTOTAL, TROPONINI, CKMBINDEX Microbiology Results (72 hrs) Procedure Component Value Units Date/Time Culture, Respiratory, Lower, Smear [[id number]] Collected: 10/29/181728 Order Status: Completed Lab Status: [...] HELD 48 HOURS. RESULT Testing performed at [facility], [address] [place] [address] Comment: Testing performed at [facility], [address] [place] [address] RADIOLOGY: Recent Results (from the past 360 [...] in prosthetic joint, initial encounter ([facility]) 2. Mechanical complication of prosthetic knee implant, initial encounter ([facility]) 3. Mechanical instability of hip prosthesis ([facility]) 4. Shortness of breath 5. [...] note might be different from the origin [facility] Service: Hospitalist Progress Note Hospital Day: [...] for input(s): IRON, TIBC, PCTSAT, FERRITIN, TSH, [id number], FOLATE in the last 168 hours. Recent [...] 8:02 This entry has been created using [employer] Speech Recognition software and EP[employer] macro s. [...] note might be different from the origin [facility] Service: Hospitalist Progress Note Hospital Day: [...] for input(s): IRON, TIBC, PCTSAT, FERRITIN, TSH, [id number], FOLATE in the last 168 hours. Recent [...] 7:39 This entry has been created using [employer] Speech Recognition software and [employer] s. The entry has been reviewed and [...] ARTHROPLASTY P)continue medical care per hospitalist and waterproof bag sewer. Weight bear as tolerated LLE. Continue PT [...] note might be different from the [facility]: Hospitalist Progress Note Hospital Day: [...] for input(s): IRON, TIBC, PCTSAT, FERRITIN, TSH, [id number], FOLATE in the last 168 hours. Recent [...] 10:29 This entry has been created using [employer] Speech Recognition software and Fluency. The entry has been reviewed and there [...] that developed this am after returning from [facility]. Denies dizziness, nausea, cough, chest pain, abdominal pain vomiting or headache 1. Pain in prosthetic joint, initial encounter ([facility]) 2. Mechanical complication of prosthetic knee implant, initial encounter ([facility]) 3. Mechanical instability of hip prosthesis ([facility]) Past Medical History: Diagnosis Date Anxiety Anxious depression Arthralgia Arthritis Asthma not using inhalers DDD (degenerative disc disease), lumbar Deliberate self-cutting history of Depression Heartburn Hemorrhage of gastrointestinal tract 2015 upper and lower due ulcers Morbid obesity with BMI of 50.0-59.9, adult ([facility]) Pain in prosthetic joint ([facility]) with instability Panic attacks states [...] Community Support Services Current Outpt/Agency/Support Groups: (P) [facility] (specify) Community Agency Name: Other Resources: Discharge [...] in prosthetic joint, initial encounter ([facility]) 2. Mechanical complication of prosthetic knee implant, initial encounter ([facility]) 3. Mechanical instability of hip prosthesis ([facility]) Past Medical History: Diagnosis Date Anxiety Anxious depression Arthralgia Arthritis Asthma not using inhalers DDD (degenerative disc disease), lumbar Deliberate self-cutting history of Depression Heartburn Hemorrhage of gastrointestinal tract 2015 upper and lower due ulcers Morbid obesity with BMI of 50.0-59.9, adult ([facility]) Pain in prosthetic joint ([facility]) with instability Panic attacks states [...] | | | | encounter ([facility]) | | | | | [...] | | PDT | encounter ([facility]) | results section. | | | | | Mechanical | | | | | | complication of | | | | | | prosthetic knee | | | | | | implant, initial | | | | | | encounter ([facility]) | | + +--------+ + + + | CULTURE, TISSUE, | Routin | 10/24/2018 | Pain in prosthetic | Results for this | | SMEAR, WITH | e | 4:41 PM | joint, initial | procedure are in the | | ANAEROBES | | PDT | encounter ([facility]) | results section. | | [...] at | | | | | | [facility], [address] | | | | | | [place] | | | | | | [address] | | | | + + + + + + + + | Specimen | + + | Blood | + + + + + + + | Performing | Address | City/State/Zipcode | Phone Number | | Organization | | | | + + + + + | [facility] | [address] | [place] [address] | [phone] | + + + + + Magnesium (11/09/2018 4:28 AM PDT) + + + + + + | Component | Value | Ref Range | Performed | Pathologist | | | | | At | Signature | + + + + + + | Magnesium | 2.5 (H)Comment: SPECIMEN | 1.7 - 2.4 mg/dL | [facility] | | | | SLIGHTLY | | [facility]AT[facility] | | | | HEMOLYZEDTesting | | | | | | performed at [facility], [address] | | | | | | [facility], | | | | | | [place] [address] | | | | + + + + + + + + | Specimen | + + | Blood | + + + + + + + | Performing | Address | City/State/Zipcode | Phone Number | | Organization | | | | + + + + + | [facility] | [address] | [place] [address] | [phone] | + + + + + Basic [...] W | | | | | | [facility], | | | | | | [place] [address] | | | | + + + + + + + + | Specimen | + + | Blood | + + + + + + + | Performing | Address | City/State/Zipcode | Phone Number | | Organization | | | | + + + + + | [facility] | [address] | [place] [address] | [phone] | + + + + + CBC [...] | | | | | [place] [address] | | | | + + + + + + + + | Specimen | + + | Blood | + + + + + + + | Performing | Address | City/State/Zipcode | Phone Number | | Organization | | | | + + + + + | [facility] | [address] | [place] [address] | [phone] | + + + + + Magnesium (11/08/2018 3:56 AM PDT) + + + + + + | Component | Value | Ref Range | Performed | Pathologist | | | | | At | Signature | + + + + + + | Magnesium | 2.7 (H)Comment: Testing | 1.7 - 2.4 mg/dL | [facility] | | | | performed at [facility], [address] | | LABORATORY | | | | [place], | | | | | | [place] [address] | | | | + + + + + + + + | Specimen | + + | Blood | + + + + + + + | Performing | Address | City/State/Zipcode | Phone Number | | Organization | | | | + + + + + | [facility] | [address] | [place] [address] | [phone] | + + + + + Basic [...] | | | | | performed at [facility], [address] | | | | | | [place], | | | | | | [place] [address] | | | | + + + + + + + + | Specimen | + + | Blood | + + + + + + + | Performing | Address | City/State/Zipcode | Phone Number | | Organization | | | | + + + + + | [facility] | [address] | [place] [address] | [phone] | + + + + + CBC [...] at | | | | | | [facility], [address] [facility] [address] | | | | | | [place] | | | | | | [address] | | | | + + + + + + + + | Specimen | + + | Blood | + + + + + + + | Performing | Address | City/State/Zipcode | Phone Number | | Organization | | | | + + + + + | [facility] | [address] | [place] [address] | [phone] | + + + + + Magnesium (11/07/2018 4:11 AM PDT) + + + + + + | Component | Value | Ref Range | Performed | Pathologist | | | | | At | Signature | + + + + + + | Magnesium | 2.5 (H)Comment: Testing | 1.7 - 2.4 mg/dL | [facility] | | | | performed at [facility], [address] | | LABORATORY | | | | [place], | | | | | | [place] [address] | | | | + + + + + + + + | Specimen | + + | Blood | + + + + + + + | Performing | Address | City/State/Zipcode | Phone Number | | Organization | | | | + + + + + | [facility] | [address] | [place] [address] | [phone] | + + + + + Basic [...] | | | | | performed at [facility], [address] | | | | | | [facility], | | | | | | [place] [address] | | | | + + + + + + + + | Specimen | + + | Blood | + + + + + + + | Performing | Address | City/State/Zipcode | Phone Number | | Organization | | | | + + + + + | [facility] | [address] | [place] [address] | [phone] | + + + + + Procalcitonin [...] | | | | | | at [facility];[address] [place] [address] | | | | | | [facility];[place] [address] | | | | + + + + + + + + | Specimen | + + | Blood | + + + + + + + | Performing | Address | City/State/Zipcode | Phone Number | | Organization | | | | + + + + + | [facility] | [address] | [place] [address] | [phone] | + + + + + CBC [...] [place] | | | | | | [address] | | | | + + + + + + + + | Specimen | + + | Blood | + + + + + + + | Performing | Address | City/State/Zipcode | Phone Number | | Organization | | | | + + + + + | [facility] | [address] | [place] [address] | [phone] | + + + + + Magnesium (11/06/2018 4:09 AM PDT) + + + + + + | Component | Value | Ref Range | Performed | Pathologist | | | | | At | Signature | + + + + + + | Magnesium | 2.7 (H)Comment: Testing | 1.7 - 2.4 mg/dL | [facility] | | | | performed at [facility], [address] | | LABORATORY | | | | [place], | | | | | | [place] [address] | | | | + + + + + + + + | Specimen | + + | Blood | + + + + + + + | Performing | Address | City/State/Zipcode | Phone Number | | Organization | | | | + + + + + | [facility] | [address] | [place] [address] | [phone] | + + + + + Basic [...] | | | | | performed at [facility], [address] | | | | | | [place], | | | | | | [place] [address] | | | | + + + + + + + + | Specimen | + + | Blood | + + + + + + + | Performing | Address | City/State/Zipcode | Phone Number | | Organization | | | | + + + + + | [facility] | [address] | [place] [address] | [phone] | + + + + + CBC [...] | | | | [facility], [address] [facility] [address] | | | | | | [place] | | | | | | [address] | | | | + + + + + + + + | Specimen | + + | Blood | + + + + + + + | Performing | Address | City/State/Zipcode | Phone Number | | Organization | | | | + + + + + | [facility] | [address] | [place] [address] | [phone] | + + + + + Magnesium [...] | | | | | [place] [address] | | | | + + + + + + + + | Specimen | + + | Blood | + + + + + + + | Performing | Address | City/State/Zipcode | Phone Number | | Organization | | | | + + + + + | [facility] | [address] | [place] [address] | [phone] | + + + + + Basic [...] | | | | | performed at [facility], [address] | | | | | | [facility], | | | | | | [place] [address] | | | | + + + + + + + + | Specimen | + + | Blood | + + + + + + + | Performing | Address | City/State/Zipcode | Phone Number | | Organization | | | | + + + + + | [facility] | [address] | [place] [address] | [phone] | + + + + + CBC [...] at | | | | | | [facility], [address] | | | | | | [place] | | | | | | [address] | | | | + + + + + + + + | Specimen | + + | Blood | + + + + + + + | Performing | Address | City/State/Zipcode | Phone Number | | Organization | | | | + + + + + | [facility] | [address] | [place] [address] | [phone] | + + + + + Magnesium (11/04/2018 3:53 AM PDT) + + + + + + | Component | Value | Ref Range | Performed | Pathologist | | | | | At | Signature | + + + + + + | Magnesium | 2.7 (H)Comment: Testing | 1.7 - 2.4 mg/dL | [facility] | | | | performed at [facility], [address] | | LABORATORY | | | | [place], | | | | | | [place] [address] | | | | + + + + + + + + | Specimen | + + | Blood | + + + + + + + | Performing | Address | City/State/Zipcode | Phone Number | | Organization | | | | + + + + + | [facility] | [address] | [place] [address] | [phone] | + + + + + Basic [...] | | | | | performed at [facility], [address] | | | | | | [facility], | | | | | | [place] [address] | | | | + + + + + + + + | Specimen | + + | Blood | + + + + + + + | Performing | Address | City/State/Zipcode | Phone Number | | Organization | | | | + + + + + | [facility] | [address] | [place] [address] | [phone] | + + + + + CBC [...] | | | | | performed at [facility], [address] | | | | | | [place], | | | | | | [place] [address] | | | | + + + + + + + + | Specimen | + + | Blood | + + + + + + + | Performing | Address | City/State/Zipcode | Phone Number | | Organization | | | | + + + + + | [facility] | [address] | [place] [address] | [phone] | + + + + + Magnesium [...] | | | | | [place] [address] | | | | + + + + + + + + | Specimen | + + | Blood | + + + + + + + | Performing | Address | City/State/Zipcode | Phone Number | | Organization | | | | + + + + + | [facility] | [address] | [place] [address] | [phone] | + + + + + Basic [...] | | | | | performed at [facility], [address] | | | | | | [address] [facility], | | | | | | [place] [address] | | | | + + + + + + + + | Specimen | + + | Blood | + + + + + + + | Performing | Address | City/State/Zipcode | Phone Number | | Organization | | | | + + + + + | [facility] | [address] | [place] [address] | [phone] | + + + + + CBC [...] [place] | | | | | | [address] | | | | + + + + + + + + | Specimen | + + | Blood | + + + + + + + | Performing | Address | City/State/Zipcode | Phone Number | | Organization | | | | + + + + + | [facility] | [address] | [place] [address] | [phone] | + + + + + Magnesium (11/02/2018 4:08 AM PDT) + + + + + + | Component | Value | Ref Range | Performed | Pathologist | | | | | At | Signature | + + + + + + | Magnesium | 2.8 (H)Comment: Testing | 1.7 - 2.4 mg/dL | [facility] | | | | performed at [facility], [address] | | LABORATORY | | | | [place], | | | | | | [place] [address] | | | | + + + + + + + + | Specimen | + + | Blood | + + + + + + + | Performing | Address | City/State/Zipcode | Phone Number | | Organization | | | | + + + + + | [facility] | [address] | [place] [address] | [phone] | + + + + + Basic [...] | | | | | performed at [facility], [address] | | | | | | [place], | | | | | | [place] [address] | | | | + + + + + + + + | Specimen | + + | Blood | + + + + + + + | Performing | Address | City/State/Zipcode | Phone Number | | Organization | | | | + + + + + | [facility] | [address] | [place] [address] | [phone] | + + + + + CBC [...] at | | | | | | [facility], [address] | | | | | | [place] | | | | | | [address] | | | | + + + + + + + + | Specimen | + + | Blood | + + + + + + + | Performing | Address | City/State/Zipcode | Phone Number | | Organization | | | | + + + + + | [facility] | [address] | [place] [address] | [phone] | + + + + + Magnesium (11/01/2018 4:17 AM PDT) + + + + + + | Component | Value | Ref Range | Performed | Pathologist | | | | | At | Signature | + + + + + + | Magnesium | 2.7 (H)Comment: Testing | 1.7 - 2.4 mg/dL | [facility] | | | | performed at [facility], [address] | | LABORATORY | | | | [place], | | | | | | [place] [address] | | | | + + + + + + + + | Specimen | + + | Blood | + + + + + + + | Performing | Address | City/State/Zipcode | Phone Number | | Organization | | | | + + + + + | [facility] | [address] | [place] [address] | [phone] | + + + + + Basic [...] | | | | | performed at [facility], [address] | | | | | | [facility], | | | | | | [place] [address] | | | | + + + + + + + + | Specimen | + + | Blood | + + + + + + + | Performing | Address | City/State/Zipcode | Phone Number | | Organization | | | | + + + + + | [facility] | [address] | [place] [address] | [phone] | + + + + + ANTHONY Profile, Reflex (11/01/2018 4:17 AM PDT) + + + + + + | Component | Value | Ref Range | Performed | Pathologist | | | | | At | Signature | + + + + + + | ANTHONY Screen, | NegativeComment: Testing | Negative | [facility] | | | Qual | performed at [facility] | | LABORATORY | | | | [place], [address] | | | | | | [place] [address] | | | | + + + [...] | | | | | with both [place] and | | | | | | [...] | | | | | | [facility] [address] | | | | + + + + + + + + | Specimen | + + | Blood | + + + + + + + | Performing | Address | City/State/Zipcode | Phone Number | | Organization | | | | + + + + + | [facility] | [address] | [place] [address] | [phone] | + + + + + Procalcitonin (11/01/2018 4:17 AM PDT) + + + + + + | Component | Value | Ref Range | Performed | Pathologist | | | | | At | Signature | + + + + + + | PROCALCITON | 1.18 (H)Comment: | <0.5 ng/mL | [facility] | | | IN | INTERPRETIVE | [...] | | | | | | at [facility];[address] | | | | | | [facility];[place] [address] | | | | + + + + + + + + | Specimen | + + | Blood | + + + + + + + | Performing | Address | City/State/Zipcode | Phone Number | | Organization | | | | + + + + + | [facility] | [address] | [place] [address] | [phone] | + + + + + Potassium (10/31/2018 6:15 PM PDT) + + + + + + | Component | Value | Ref Range | Performed | Pathologist | | | | | At | Signature | + + + + + + | K | 3.8Comment: Testing | 3.5 - 4.9 | [facility] | | | | performed at [facility];888 | mmol/L | LABORATORY | | | | [address];[place], [place] | | | | | | [address] | | | | + + + + + + + + | Specimen | + + | Blood | + + + + + + + | Performing | Address | City/State/Zipcode | Phone Number | | Organization | | | | + + + + + | [facility] | [address] | [place] [address] | [phone] | + + + + + CBC [...] LABORATORY | | | | performed at [facility], [address] | | | | | | [address] [place], | | | | | | [place] [address] | | | | | | | | | | + + + + + + + + | Specimen | + + | Blood | + + + + + + + | Performing | Address | City/State/Zipcode | Phone Number | | Organization | | | | + + + + + | [facility] | [address] | [place] [address] | [phone] | + + + + + Magnesium (10/31/2018 4:14 AM PDT) + + + + + + | Component | Value | Ref Range | Performed | Pathologist | | | | | At | Signature | + + + + + + | Magnesium | 2.3Comment: Testing | 1.7 - 2.4 mg/dL | [facility] | | | | performed at [facility], [address] | | LABORATORY | | | | [address], | | | | | | [place] [address] | | | | + + + + + + + + | Specimen | + + | Blood | + + + + + + + | Performing | Address | City/State/Zipcode | Phone Number | | Organization | | | | + + + + + | [facility] | [address] | [place] [address] | [phone] | + + + + + Basic [...] >60Comment: GFR <60: | >60 | [facility] | | | GFR | CHRONIC KIDNEY [...] | | | | | | MDRD IDMO traceable | | | | | | equation.Testing | | | | | | performed at [facility], [address] | | | | | | [facility], | | | | | | [place] [address] | | | | + + + + + + + + | Specimen | + + | Blood | + + + + + + + | Performing | Address | City/State/Zipcode | Phone Number | | Organization | | | | + + + + + | [facility] | [address] | [place] [address] | [phone] | + + + + + Phosphorus (10/31/2018 4:14 AM PDT) + + + + + + | Component | Value | Ref Range | Performed | Pathologist | | | | | At | Signature | + + + + + + | Phosphorus | 3.4Comment: Testing | 2.3 - 4.8 mg/dL | [facility] | | | | performed at [facility], [address] | | LABORATORY | | | | [address], | | | | | | [place] [address] | | | | + + + + + + + + | Specimen | + + | Blood | + + + + + + + | Performing | Address | City/State/Zipcode | Phone Number | | Organization | | | | + + + + + | [facility] | [address] | [place] [address] | [phone] | + + + + + XR [...] LABORATORY | | | | performed at [facility], [address] | | | | | | [address], | | | | | | [place] [address] | | | | | | | | | | + + + + + + + + | Specimen | + + | Blood | + + + + + + + | Performing | Address | City/State/Zipcode | Phone Number | | Organization | | | | + + + + + | [facility] | [address] | [place] [address] | [phone] | + + + + + Magnesium (10/30/2018 4:18 AM PDT) + + + + + + | Component | Value | Ref Range | Performed | Pathologist | | | | | At | Signature | + + + + + + | Magnesium | 2.3Comment: Testing | 1.7 - 2.4 mg/dL | [facility] | | | | performed at [facility], [address] | | LABORATORY | | | | [address], | | | | | | [place] [address] | | | | + + + + + + + + | Specimen | + + | Blood | + + + + + + + | Performing | Address | City/State/Zipcode | Phone Number | | Organization | | | | + + + + + | [facility] | [address] | [place] [address] | [phone] | + + + + + Basic [...] >60Comment: GFR <60: | >60 | [facility] | | | GFR | CHRONIC KIDNEY [...] | | | | | | MDRD IDMO traceable | | | | | | equation.Testing | | | | | | performed at [facility], [address] | | | | | | [facility], | | | | | | [place] [address] | | | | + + + + + + + + | Specimen | + + | Blood | + + + + + + + | Performing | Address | City/State/Zipcode | Phone Number | | Organization | | | | + + + + + | [facility] | [address] | [place] [address] | [phone] | + + + + + Vitamin D, Deficiency Screen (25-Hydroxy) (10/30/2018 4:18 AM PDT) + + + + + + | Component | Value | Ref Range | Performed | Pathologist | | | | | At | Signature | + + + + + + | Vit D, | <12 (L)Comment: <20 | 30 - 150 ng/mL | [facility] | | | 25-Hydroxy | ng/mL Suggests [...] | | | | | performed at [facility], [address] | | | | | | [facility], | | | | | | [place] [address] | | | | + + + + + + + + | Specimen | + + | Blood | + + + + + + + | Performing | Address | City/State/Zipcode | Phone Number | | Organization | | | | + + + + + | [facility] | [address] [facility] | [place] [address] | [phone] | + + + + + Culture, [...] | | | | [facility], [address] [facility] | | LABORATORY | | | | [place] | | | | | | [address]Tgsxmti: Testing | | | | | | performed at [facility], [address] | | | | | | [facility], | | | | | | [place] [address] | | | | + + + + + + + + | Specimen | + + | Body Fluid - Coughed | | sputum specimen | | (specimen) | + + + + + + + | Performing | Address | City/State/Zipcode | Phone Number | | Organization | | | | + + + + + | [facility] | [address] | [place] [address] | [phone] | + + + + + ECHO [...] | 1.7 - 2.4 mg/dL | [facility] | | | | performed at [facility], [address] | | LABORATORY | | | | [address], | | | | | | [place] [address] | | | | + + + + + + + + | Specimen | + + | Blood | + + + + + + + | Performing | Address | City/State/Zipcode | Phone Number | | Organization | | | | + + + + + | [facility] | [address] | [place] [address] | [phone] | + + + + + Basic [...] 7.9 (L) | 8.5 - 10.5 | [facility] | | | | | mg/dL | LABORATORY | | + + + + + + | Estimated | >60Comment: GFR <60: | >60 | [facility] | | | GFR | CHRONIC KIDNEY [...] | | | | | | MDRD IDMO traceable | | | | | | equation.Testing | | | | | | performed at [facility], [address] | | | | | | [facility], | | | | | | [place] [address] | | | | + + + + + + + + | Specimen | + + | Blood | + + + + + + + | Performing | Address | City/State/Zipcode | Phone Number | | Organization | | | | + + + + + | [facility] | [address] | [place] [address] | [phone] | + + + + + CBC [...] at | | | | | | [facility], [address] [facility] | | | | | | [place] | | | | | | [address] | | | | + + + + + + + + | Specimen | + + | Blood | + + + + + + + | Performing | Address | City/State/Zipcode | Phone Number | | Organization | | | | + + + + + | [facility] | [address] | [place] [address] | [phone] | + + + + + VAS [...] | | | | | | at [facility];[address] [place] [address] | | | | | | [facility];[place] [address] | | | | + + + + + + + + | Specimen | + + | Blood | + + + + + + + | Performing | Address | City/State/Zipcode | Phone Number | | Organization | | | | + + + + + | [facility] | [address] | [place] [address] | [phone] | + + + + + B [...] | | LABORATORY | | | | [facility];[address] | | | | | | [place] [address] | | | | + + + + + + + + | Specimen | + + | Blood | + + + + + + + | Performing | Address | City/State/Zipcode | Phone Number | | Organization | | | | + + + + + | [facility] | [address] | [place] [address] | [phone] | + + + + + Basic [...] | | | | | performed at [facility] | | | | | | [facility];[place], [place] | | | | | | [address] | | | | + + + + + + + + | Specimen | + + | Blood | + + + + + + + | Performing | Address | City/State/Zipcode | Phone Number | | Organization | | | | + + + + + | [facility] | [address] | [place] [address] | [phone] | + + + + + CBC [...] | | | | | performed at [facility] | | | | | | [facility];[place], [place] | | | | | | [address] | | | | + + + + + + + + | Specimen | + + | Blood | + + + + + + + | Performing | Address | City/State/Zipcode | Phone Number | | Organization | | | | + + + + + | [facility] | [address] | [place] [address] | [phone] | + + + + + CT [...] >60Comment: GFR <60: | >60 | [facility] | | | GFR | CHRONIC KIDNEY [...] | | | | | performed at [facility];[address] | | | | | | [facility];[place], [place] | | | | | | [address] | | | | + + + + + + + + | Specimen | + + | Blood | + + + + + + + | Performing | Address | City/State/Zipcode | Phone Number | | Organization | | | | + + + + + | [facility] | [address] | [place] [address] | [phone] | + + + + + CBC [...] [facility] | | | | performed at [facility], [address] | | LABORATORY | | | | [place], | | | | | | [place] [address] | | | | + + + + + + + + | Specimen | + + | Blood | + + + + + + + | Performing | Address | City/State/Zipcode | Phone Number | | Organization | | | | + + + + + | [facility] | [address] | [place] [address] | [phone] | + + + + + ECG [...] Testing | 34.0 - 46.0 % | [facility] | | | | performed at [facility], [address] | | LABORATORY | | | | [place], | | | | | | [place] [address] | | | | + + + + + + + + | Specimen | + + | Blood | + + + + + + + | Performing | Address | City/State/Zipcode | Phone Number | | Organization | | | | + + + + + | [facility] | [address] | [place] [address] | [phone] | + + + + + XR [...] + + + | SPECIMEN(S): A | [place] PATHOLOGY | | LEFT HIP SYNOVIUM SPECIMEN [...] | | | abnormalities are grossly identified. Manager Sports sections are | | | submitted in [...] interpretation was | | | performed by [facility], [facility], [address] | | | [address] [place], [place] (Panel Wirer: Víctor Livingston M.D.; | | | CLIA#: [id number]).The technical component was performed by [facility] | | | [facility], [address] [place] [id number] (Panel Wirer: | | | Nadiya Sharma MD; CLIA# [id number]). Diagnostician: Víctor Livingston | | | MDPathologistElectronically [...] | | LABORATORY | | | | Blvd;[place] [address] | | | | + + + [...] | Testing performed at | | [facility] | | | | [facility], [address] [facility] | | LABORATORY | | | | [place], [place] | | | | | | [address]Orjmszt: Testing | | | | | | performed at [facility], [address] | | | | | | [facility] [place] | | | | | | [address] | | | | + + + + + + + + | Specimen | + + | | + + + + + + + | Performing | Address | City/State/Zipcode | Phone Number | | Organization | | | | + + + + + | [facility] | [address] | [place] [address] | [phone] | + + + + + Culture, [...] | Testing performed at | | [facility] | | | | [facility], [address] [facility] | | LABORATORY | | | | Bl, [place] | | | | | | [address]Lmqtwgv: Testing | | | | | | performed at [facility], [address] | | | | | | [facility] [address], | | | | | | [place] [address] | | | | + + + [...] [facility] | [address] | [place] [address] | [phone] | + + + + + Type [...] + + + | BB [facility] | [id number] | | [facility] | | | | | | LABORATORY | | + + + + + + | [facility] | Testing performed at | | [facility] | | | | [facility];[address] | | LABORATORY | | | | [address];[place] [address] | | | | + + + + + + + + | Specimen | + + | Blood | + + + + + + + | Performing | Address | City/State/Zipcode | Phone Number | | Organization | | | | + + + + + | [facility] | [address] | [place] [address] | [phone] | + + + + + POCT Test, Urine, Qual (10/24/2018 1:27 PM PDT) + + + + + + | Component | Value | Ref Range | Performed | Pathologist | | | | | At | Signature | + + + + + + | HCG, | NEGATIVEComment: Testing | NEG | [facility] | | | Quantitativ | performed at [facility];[address] | | LABORATORY | | | e POC | [address];[place] | | | | | | [address] | | | | + + + + + + + + | Specimen | + + | | + + + + + + + | Performing | Address | City/State/Zipcode | Phone Number | | Organization | | | | + + + + + | [facility] | [address] | [place] [address] | [phone] | + + + + + documented [...] | | | | | | longer, aqssdi-feo-ntwpt use of | | | | | [...] | | | | | | | txqdko-fqe-hntln use of at least | | | [...]
--- OUTSIDE RECORDS SUMMARY | ~2019-03-11 | XMS | Encounter Summary ---
Demographics + + + | Address | [address] | | | [place] [address] | + + + | Home Phone | | + + + | Preferred Language | Unknown | + + + | Marital Status | | + + + | Quaker Affiliation | Unknown | + + + | Race | Unknown | + + + | Ethnic Group | Unknown | + + + Author + + + | Author | [facility] | | | and [place] | + + + | Organization | [facility] | | | and [place] | + + + | Address | Unknown | + + + | Phone | Unavailable | + + + Support + + + + + | Name | Relationship | Address | Phone | + + + + + | Fabienne Juarez | ECON | [place] | | | | | [address] | | + + + + + Care Team Providers + +------+ + | Care Urogynaecologist Name | Role | Phone | + +------+ + | No, Physician | PCP | Unavailable | + +------+ + Encounter Details +--------+ + + + + | Date | Type | Department | Care Team | Description | +--------+ + + + + | 10/18/ | Hospital | [facility] | Conversion | | | 2019 | Encounter | [facility] | Transaction, | | | | | [address] | Provider Unknown | | | | | [address] [place], [place] | [phone] | | | | | [address] | | | | | | [phone] | | | +--------+ + + + [...]
--- OUTSIDE RECORDS SUMMARY | ~2019-03-11 | XMS | Encounter Summary ---
Demographics + + + | Address | [address] | | | [place] [address] | + + + | Home Phone [...] | [facility] | | | and [place] | + + + | Organization | [facility] | | | and [place] | + + + | Address | Unknown | + + + | Phone | Unavailable | + + + Support + + + + + | Name | Relationship | Address | Phone | + + + + + | Fabienne Juarez | ECON | [place] | | | | | [address] | | + + + + + Care Team Providers + +------+ + | Care Stranding Machine Operator Name | Role | Phone [...] | | | | [place] | [phone] | | | | | [address] | | | | | | [phone] | | | +--------+ + + + [...]
--- OUTSIDE RECORDS SUMMARY | ~2019-03-11 | XMS | Encounter Summary ---
Demographics + + + | Address | [address] | | | [place] [address] | + + + | Home Phone | | + + + | Preferred Language | Unknown | + + + | Marital Status | | + + + | Worship Affiliation | Unknown | + + + | Race | Unknown | + + + | Ethnic Group | Unknown | + + + Author + + + | Author | [facility] | | | and [place] | + + + | Organization | [facility] | | | and [place] | + + + | Address | Unknown | + + + | Phone | Unavailable | + + + Support + + + + + | Name | Relationship | Address | Phone | + + + + + | Fabienne Juarez | ECON | [place] | | | | | [address] | | + + + + + Care Team Providers + +------+ + | Care Machine Repair Person Name | Role | Phone | + +------+ + PCP | Unavailable | + +------+ + Encounter Details +--------+ + + + + | Date | Type | Department | Care Team | Description | +--------+ + + + + | 10/06/ | Hospital | [facility] | Conversion | | | 2019 | Encounter | [facility] | Transaction, | | | | | CLINIC [address] | Provider Unknown | | | | | [place], [place] | | | | | | [address] | | | | | | [phone] | | | +--------+ + + + [...] | | | Screen | performed at [facility] | | LAB | | | | [facility];[place], [place] | | | | | | [address] | | | | + + + [...] NEGATIVE Testing | | | performed at [facility];[address] [place] [address];[place] [address] | | + + + + +---------+ [...] | | | Basophils | performed at [facility], [address] | LAB | | | | [address] [facility], | | | | | | [place] [address] | | | | + + + [...] | | | | performed at [facility], [address] | | | | | | [address] [facility], | | | | | | [place] [address] | | | | + + + [...] | | | | performed at [facility], [address] | | | | | | [facility], | | | | | | [place] [address] | | | | + + + [...]
--- OUTSIDE RECORDS SUMMARY | ~2019-03-11 | XMS | Clinical Summary ---
Demographics + + + | Address | [address] | | | [place] [address] | + + + | Home Phone | | + + + | Preferred Language | Unknown | + + + | Marital Status | | + + + | Latter Day Affiliation | Unknown | + + + | Race | Unknown | + + + | Ethnic Group | Unknown | + + + Author + + + | Author | [facility] | | | and [place] | + + + | Organization | [facility] | | | and [place] | + + + | Address | Unknown | + + + | Phone | Unavailable | + + + Support + + + + + | Name | Relationship | Address | Phone | + + + + + | Fabienne Juarez | ECON | [place] | | | | | [address] | | + + + + + Care Team Providers + +------+ + | Care Nursery Nurse Name | Role | Phone | + [...] 3 times daily | capsule | | / | 4/20 | e | | capsule | for 120 days. | | | 19 | 20 | | + + + +---------+------+------+-------+ Active [...] Overview: Added automatically from request for surgery [id number] | + + + + + | Mechanical instability of hip prosthesis | 09/11/2018 | + + + + + | Overview: Added automatically from request for surgery [id number] | + + Encounters +--------+ + + + + | Date | Type | Specialty | Care Team | Description | +--------+ + + + + | 01/01/ | Telephone | Orthopedic Surgery | Miah Monique | Triage | | 2018 | | | MD Fab | | +--------+ + + + + | 12/28/ | Refill | Orthopedic Surgery | Miah Monique | Medication Refill | | 2018 | | | MD Fab | | +--------+ + + + + | 12/27/ | Telephone | Orthopedic Surgery | Miah Monqiue | Medication Refill | | 2018 | | | MD Fab | | +--------+ + + + + | 12/26/ | Telephone | Orthopedic Surgery | Miah Monique | Other (DUFUR RX | | 2018 | | | MD [...] Dx) | +--------+ + + + + from [...] | | Miah Sanon MD at [facility] | | | | | | /[id number] | | [facility] | | | | | | [address] [...] | | Miah Sanon MD at [facility] | | | | | | /[address] | | [facility] | | | | | | [address] [...] | | Miah Sanon MD at [facility] | | | | | | /[address] | | [facility] | | | | | | 07 | + +--------+--------+ +--------+--------+--------+ | Trident Ii Tritanium | | | STRYKERO | | 02/23/ | 709-04 | | Multihole Acetabular | | | JULIEN | | 2022 | -58F | | ShellImplanted: Qty: 1 on | | | ORTHOPEDICS | | | /NA | | 10/24/2018 by Eneida, | | | | | | /[id number] | | Miah Sanon MD at [facility] | | | | | | 601[address] | | [facility] | | | | | | | + +--------+--------+ +--------+--------+--------+ | Screw Hex Lp [id number] - | | Left: | JULIEN | | 07/05/ | 7030-6 | | SnaImplanted: Qty: 1 on | | Hip | MEDICAL - | | 2023 | 530 | | 10/24/2018 by Eneida, | | | LUIS M | | | /NA | | Miah Sanon MD at [facility] | | | | | | /[id number] | | [facility] | | | | | | | + +--------+--------+ +--------+--------+--------+ | Screw Hex Lp [id number] - | | Left: | JULIEN | | 08/12/ | 7030-6 | | SnaImplanted: Qty: 1 on | | Hip | MEDICAL - | | 2023 | 530 | | 10/24/2018 by Eneida, | | | STRY | | | /NA | | Miah Sanon MD at [facility] | | | | | | /4RS | | [facility] | | | | | | | + +--------+--------+ +--------+--------+--------+ | Screw Hex Lp [id number] - | | Left: | JULIEN | | 05/15/ | 7030-6 | | SnaImplanted: Qty: 1 on | | Hip | MEDICAL - | | 2023 | 515 | | 10/24/2018 by Eneida, | | | STRY | | | /NA | | Miah Sanon MD at [facility] | | | | | | /5ML | | [facility] | | | | | | | + +--------+--------+ +--------+--------+--------+ | [employer] C-Taper | | Left: | Dell | | 02/14/ | 18-- | | Femoral Head Implanted: Qty: | | Hip | Orthopaedic | | 2021 | 3 /NA | | 1 on 10/24/2018 by Eneida, | | | s | | | /[id number] | | Miah Sanon MD at [facility] | | | | | | 901 | | [facility] | | | | | | | + +--------+--------+ +--------+--------+--------+ Procedures + +--------+ [...] section. | + +--------+ + + + from Last 3 Months Results XR [...] +---------+--------+ | MEDICAID [place] | MEDICA | [id number] | | [phone] | | Medica | | | ID [...] | 1971 | [phone] | [place] [address] | | | sreekanth | | | 9 (Home) | | + +--------+ +--------+ + + Advance Directives + + + + + | Type | Date Recorded | Patient | Explanation | | | | Cumulative Effects Analyst | | + + + + + | Power of | | | | | Dado Operator | | | | + + + [...]
--- OUTSIDE RECORDS SUMMARY | ~2019-03-11 | XMS | Encounter Summary ---
Demographics + + + | Address | [address] | | | [place] [address] | + + + | Home Phone | | + + + | Preferred Language | Unknown | + + + | Marital Status | | + + + | Jain Affiliation | Unknown | + + + | Race | Unknown | + + + | Ethnic Group | Unknown | + + + Author + + + | Author | [facility] | | | and [place] | + + + | Organization | [facility] | | | and [place] | + + + | Address | Unknown | + + + | Phone | Unavailable | + + + Support + + + + + | Name | Relationship | Address | Phone | + + + + + | Fabienne Juarez | ECON | [place] | | | | | [address] | | + + + + + Care Team Providers + +------+ + | Care Reinforcing Iron Worker Helper Name | Role | Phone | [...] [place] | | | | | [address] | [place] [address] | | | | | [phone] | [phone] | | | | | | | [...]
--- OUTSIDE RECORDS SUMMARY | ~2019-03-11 | XMS | Encounter Summary ---
Demographics + + + | Address | [address] | | | [place] [address] | + + + | Home Phone | | + + + | Preferred Language | Unknown | + + + | Marital Status | | + + + | Jew Affiliation | Unknown | + + + | Race | Unknown | + + + | Ethnic Group | Unknown | + + + Author + + + | Author | [facility] | | | and [place] | + + + | Organization | [facility] [...] [place] | | | | | [address] | | + + + + + Care Team Providers + +------+ + | Care Hot Oiler Name | Role | Phone | + [...] | | | | EJ GARCIA | [phone] | | | | | [address] | | | | | | [phone] | | | +--------+ + + + [...]
--- OUTSIDE RECORDS SUMMARY | ~2019-03-11 | XMS | Encounter Summary ---
Demographics + + + | Address | [address] | | | [place] [address] | + + + | Home Phone | | + + + | Preferred Language | Unknown | + + + | Marital Status | | + + + | Christianity Affiliation | Unknown | + + + | Race | Unknown | + + + | Ethnic Group | Unknown | + + + Author + + + | Author | [facility] | | | and [place] | + + + | Organization | [facility] | | | and [place] | + + + | Address | Unknown | + + + | Phone | Unavailable | + + + Support + + + + + | Name | Relationship | Address | Phone | + + + + + | Fabienne Juarez | ECON | [place] | | | | | [address] | | + + + + + Care Team Providers + +------+ + | Care Records Management Assistant Name | Role | Phone | + [...] [address] | | | | | [address] | [place] [address] | | | | | [phone] | [phone] | | | | | | | [...]
--- OUTSIDE RECORDS SUMMARY | ~2019-03-11 | XMS | Encounter Summary ---
Demographics + + + | Address | [address] | | | [place] [address] | + + + | Home Phone | | + + + | Preferred Language | Unknown | + + + | Marital Status | | + + + | Religion Affiliation | Unknown | + + + | Race | Unknown | + + + | Ethnic Group | Unknown | + + + Author + + + | Author | [facility] | | | and [place] | + + + | Organization | [facility] | | | and [place] | + + + | Address | Unknown | + + + | Phone | Unavailable | + + + Support + + + + + | Name | Relationship | Address | Phone | + + + + + | Fabienne Juarez | ECON | [place] | | | | | [address] | | + + + + + Care Team Providers + +------+ + | Care Improvement Rn Name | Role | Phone | + [...] | | EJ GARCIA | [place] [address] | | | | | [address] | [phone] | | | | | [phone] | | | +--------+ + + + [...]
--- OUTSIDE RECORDS SUMMARY | ~2019-03-11 | XMS | Encounter Summary ---
Demographics + + + | Address | [address] | | | [place] [address] | + + + | Home Phone | | + + + | Preferred Language | Unknown | + + + | Marital Status | | + + + | Advent Affiliation | Unknown | + + + | Race | Unknown | + + + | Ethnic Group | Unknown | + + + Author + + + | Author | [facility] | | | and [place] | + + + | Organization | [facility] | [...] [place] | | | | | [address] | | + + + + + Care Team Providers + +------+ + | Care Beef Pluck Trimmer Name | Role | Phone | [...] | prosthetic devices, | | | | [address] | [place] [address] | implants and grafts, | | | | [phone] | [phone] | initial encounter | | | | | | ([facility]) | +--------+ + + + + Social [...]
--- OUTSIDE RECORDS SUMMARY | ~2019-03-11 | XMS | Encounter Summary ---
Demographics + + + | Address | [address] | | | [place] [address] | + + + | Home Phone [...] | Author | [facility] | | | and [place] | + + + | Organization | [facility] | | | and [place] | + + + | Address | Unknown | + + + | Phone | Unavailable | + + + Support + + + + + | Name | Relationship | Address | Phone | + + + + + | Fabienne Juarez | ECON | [place] | | | | | [address] | | + + + + + Care Team Providers + +------+ + | Care Airplane Cabin Attendant Name | Role | Phone | + +------+ + | No, Physician | PCP | Unavailable | + +------+ + Encounter Details +--------+ + + + + | Date | Type | Department | Care Team | Description | +--------+ + + + + | 10/18/ | Orders Only | [facility] | Miah Monique | | | 2018 | | [facility] | MD Fab [address] | | | | | OPERATING [address] | [address] | | | | | [address] | [place] [address] | | | | | [place], [place] | [phone] | | | | | [address] | | | | | | [phone] | | | +--------+ + + + [...] EXTERNAL LAB | | Testing performed at [facility];[address] [place] [address];[place] [address] | | + + + + +---------+ [...] | | CLOUDY RBC'S | | | 52092 TOTAL NUCLEATED CELLS | | | 29 NEUTROPHILS | | | 83 LYMPHOCYTES | | | 14 EOSINOPHILS 3 | | | CELLS COUNTED 100 | | | Testing performed at [facility];[address] [place] [address];[place] [address] | | + + + + +---------+ + + | Performing | Address | City/State/Zipcode | Phone Number | | Organization | | | | + +---------+ + + | EXTERNAL LAB | | | | + +---------+ + + documented in this encounter Visit Diagnoses Not on filedocumented in this encounter"
--- OUTSIDE RECORDS SUMMARY | ~2019-03-11 | XMS | Encounter Summary ---
Demographics + + + | Address | [address] | | | [place] [address] | + + + | Home Phone [...] Author | [facility] | | | and [place] | + + + | Organization | [facility] | | | and [place] | + + + | Address | Unknown | + + + | Phone | Unavailable | + + + Support + + + + + | Name | Relationship | Address | Phone | + + + + + | Fabienne Juarez | ECON | [place] | | | | | [address] | | + + + + + Care Team Providers + +------+ + | Care Early Childhood Lead Teacher Name | Role | Phone | + [...] [address] | | | | | [address] [place], [place] | [address] | | | | | [address] | [place] [address] | | | | | [phone] | [phone] | | | | | | | [...]
--- OUTSIDE RECORDS SUMMARY | ~2019-03-11 | XMS | Encounter Summary ---
Demographics + + + | Address | [address] | | | [place] [address] | + + + | Home Phone | | + + + | Preferred Language | Unknown | + + + | Marital Status | | + + + | Orthodox Affiliation | Unknown | + + + | Race | Unknown | + + + | Ethnic Group | Unknown | + + + Author + + + | Author | [facility] | | | and [place] | + + + | Organization | [facility] | [...] Team Providers + +------+ + | Care Unit Tender Name | Role | Phone | [...] + + | 11/14/ | Telephone | [facility] | Miah Monique | Medication Problem | | 2019 | | [address]HA [address] San[address] MD [address] | | | | | [address] [place], [place] | [address] [place] [place] | | | | | [address] | [place] [address] | | | | | [phone] | [phone] | | | | | | | [...]
--- OUTSIDE RECORDS SUMMARY | ~2019-03-11 | XMS | Encounter Summary ---
Demographics + + + | Address | [address] | | | [place] [address] | + + + | Home Phone | | + + + | Preferred Language | Unknown | + + + | Marital Status | | + + + | Anabaptist Affiliation | Unknown | + + + | Race | Unknown | + + + | Ethnic Group | Unknown | + + + Author + + + | Author | [facility] | | | and [place] | + + + | Organization | [facility] | [...] [place] | | | | | [address] | | + + + + + Care Team Providers + +------+ + | Care Statistical Clerk Name | Role | Phone | [...] | | | | Left Hip | Shoal Sanchez MD | [address] | | | | | Nondisplaced | [address] | [address] | | | | | Fracture of | ([address] | [place], [place] | | | | | Artificial | [address]) | [address] | | | | | Hip Joint | [place], | Phone: | | | | | | [place] [address] | [phone] | | | | | | Phone: | Fax: | | | | | | [phone] | [phone] | | | | | | Fax: | | | | | | | [phone] | | +--------+--------+ + + + + Encounter Details +--------+---------+ + + + | Date | Type | Department | Care Team | Description | +--------+---------+ + + + | 12/11/ | Office | [facility] | Miah Monique | Status post left hip | | 2019 | Visit | [address] | MD Fab [address] | replacement | | | | [place], [place] | [address] | (Primary Dx) | | | | [address] | [place] [address] | | | | | [phone] | | | | | | | [...]
--- OUTSIDE RECORDS SUMMARY | ~2019-03-11 | XMS | Encounter Summary ---
Demographics + + + | Address | [address] | | | [place] [address] | + + + | Home Phone | | + + + | Preferred Language | Unknown | + + + | Marital Status | | + + + | Mu-Ism Affiliation | Unknown | + + + | Race | Unknown | + + + | Ethnic Group | Unknown | + + + Author + + + | Author | [facility] | | | and [place] | + + + | Organization | [facility] [...] [place] | | | | | [address] | | + + + + + Care Team Providers + +------+ + | Care Credit Resolution Representative Name | Role | Phone | [...] [address] | | | | | [address] | [place] [address] | | | | | [phone] | [phone] | | | | | | | [...]
--- OUTSIDE RECORDS SUMMARY | ~2019-03-11 | XMS | Encounter Summary ---
Demographics + + + | Address | [address] | | | [place] [address] | + + + | Home Phone [...] Author | [facility] | | | and [place] | + + + | Organization | [facility] [...] [place] | | | | | [address] | | + + + + + Care Team Providers + +------+ + | Care Commercial Account Manager Name | Role | Phone | [...] + + | 11/14/ | Telephone | [facility] | Miah Monique | Medication Problem | | 2019 | | [address] MD [address] | | | | | [address] [place], [place] | [address] | | | | | [address] | [place] [address] | | | | | [phone] | [phone] | | | | | | | [...]
--- OUTSIDE RECORDS SUMMARY | ~2019-03-11 | XMS | Encounter Summary ---
Demographics + + + | Address | [address] | | | [place] [address] | + + + | Home Phone [...] | Author | [facility] | | | and [place] | + + + | Organization | [facility] [...] [place] | | | | | [address] | | + + + + + Care Team Providers + +------+ + | Care Medical Office Worker Name | Role | Phone | + +------+ + PCP | Unavailable | + +------+ + Encounter Details +--------+ + + + + | Date | Type | Department | Care Team | Description | +--------+ + + + + | 09/19/ | Hospital | [facility] | Conversion | | | 2019 | Encounter | [facility] [address] | Transaction, | | | | | [address] | Provider Unknown | | | | | [place] | [phone] | | | | | [address] | | | | | | [phone] | | | +--------+ + + + [...]
--- OUTSIDE RECORDS SUMMARY | ~2019-03-11 | XMS | Encounter Summary ---
Demographics + + + | Address | [address] | | | [place] [address] | + + + | Home Phone [...] + | Author | [facility] | | | and [place] | + + + | Organization | [facility] | | | and [place] | + + + | Address | Unknown | + + + | Phone | Unavailable | + + + Support + + + + + | Name | Relationship | Address | Phone | + + + + + | Fabienne Juarez | ECON | [place] | | | | | [address] | | + + + + + Care Team Providers + +------+ + | Care Cement Cutter Name | Role | Phone | + [...] [address] | | | | | [address] [place], [place] | [address] | | | | | [address] | [place] [address] | | | | | [phone] | [phone] | | | | | | | [...]
--- OUTSIDE RECORDS SUMMARY | ~2019-03-11 | XMS | Encounter Summary ---
Demographics + + + | Address | [address] | | | [place] [address] | + + + | Home Phone | | + + + | Preferred Language | Unknown | + + + | Marital Status | | + + + | Orthodoxy Affiliation | Unknown | + + + | Race | Unknown | + + + | Ethnic Group | Unknown | + + + Author + + + | Author | [facility] | | | and [place] | + + + | Organization | [facility] | | | and [place] | + + + | Address | Unknown | + + + | Phone | Unavailable | + + + Support + + + + + | Name | Relationship | Address | Phone | + + + + + | Fabienne Juarez | ECON | [place] | | | | | [address] | | + + + + + Care Team Providers + +------+ + | Care Branch Operations Specialist Name | Role | Phone | [...] [address] | | | | | [address] [place], [place] | [address] | | | | | [address] | [place] [address] | | | | | [phone] | [phone] | | | | | | | [...]
--- OUTSIDE RECORDS SUMMARY | ~2019-03-11 | XMS | Clinical Summary ---
Demographics + + + | Address | [address] | | | [place] [address] | + + + | Home Phone [...] | Author | [facility] | | | and [place] | + + + | Organization | [facility] | | | and [place] | + + + | Address | Unknown | + + + | Phone | Unavailable | + + + Support + + + + + | Name | Relationship | Address | Phone | + + + + + | Fabienne Juarez | ECON | [place] | | | | | [address] | | + + + + + Care Team Providers + +------+ + | Care Roofing Technician Name | Role | Phone | [...] Overview: Added automatically from request for surgery [id number] | + + + + + | Mechanical instability of hip prosthesis | 09/11/2018 | + + + + + | Overview: Added automatically from request for surgery [id number] | + + Encounters +--------+ + + [...] Orthopedic Surgery | Miah Monique | Other ([employer] | | 2018 | | | [...] /NA | | Miah Sanon MD at [facility] | | | | | | /[id number] | | [facility] | | | | | | 603 | + +--------+--------+ +--------+--------+--------+ | Insert Adm/Mdm 28mm/52 46f - | Generi | Left: | JULIEN | | 08/07/ | 1236-2 | | SnaImplanted: Qty: 1 on | c | Hip | MEDICAL - | | 2023 | -852 | | 10/24/2018 by Eneida, | | | STRY | | | /NA | | Maih Sanon MD at [facility] | | | | | | /[id number] | | [facility] | | | | | | [...] /NA | | Miah Sanon MD at [facility] | | | | | | /[id number] | | [facility] | | | | | | 07 | + +--------+--------+ +--------+--------+--------+ | Trident Ii Tritanium | | | STRYKERO | | 02/23/ | 709-04 | | Multihole Acetabular | | | JULIEN | | 2022 | -58F | | ShellImplanted: Qty: 1 on | | | ORTHOPEDICS | | | /NA | | 10/24/2018 by Eneida, | | | | | | /[id number] | | Miah Sanon MD at [facility] | | | | | | 601A | | [facility] | | | | | | | + +--------+--------+ +--------+--------+--------+ | Screw Hex Lp [id number] - | | Left: | JULIEN | | 07/05/ | 7030-6 | | SnaImplanted: Qty: 1 on | | Hip | MEDICAL - | | 2023 | 530 | | 10/24/2018 by Eneida, | | | LUIS M | | | /NA | | Miah Sanon MD at [facility] | | | | | | /[id number] | | [facility] | | | | | | | + +--------+--------+ +--------+--------+--------+ | Screw Hex Lp [id number] - | | Left: | JULIEN | | 08/12/ | 7030-6 | | SnaImplanted: Qty: 1 on | | Hip | MEDICAL - | | 2023 | 530 | | 10/24/2018 by Eneida, | | | STRY | | | /NA | | Miah Sanon MD at [facility] | | | | | | /[id number] | | [facility] | | | | | | | + +--------+--------+ +--------+--------+--------+ | Screw Hex Lp [id number] - | | Left: | JULIEN | | 05/15/ | 7030-6 | | SnaImplanted: Qty: 1 on | | Hip | MEDICAL - | | 2023 | 515 | | 10/24/2018 by Eneida, | | | STRY | | | /NA | | Miah Sanon MD at [facility] | | | | | | /5ML | | [facility] | | | | | | | + +--------+--------+ +--------+--------+--------+ | [employer] C-Taper | | Left: | Voca | | 02/14/ | 18-- | | Femoral Head Implanted: Qty: | | Hip | Orthopaedic | | 2021 | 3 /NA | | 1 on 10/24/2018 by Eneida, | | | s | | | /[id number] | | Miah Sanon MD at [facility] | | | | | | 901 | | [facility] | | | | | | [...] +---------+--------+ | MEDICAID [place] | MEDICA | [id number] | | [phone] | | Medica | [...] | 1971 | [phone] | [place] [address] | | | sreekanth | | | 9 (Home) | | + +--------+ +--------+ + + Advance Directives + + + + + | Type | Date Recorded | Patient | Explanation | | | | Manager Validation | | + + + + + | Power of | | | | | Plant Technician/Control Room Operator | | | | + + [...]
--- OUTSIDE RECORDS SUMMARY | ~2019-03-11 | XMS | Encounter Summary ---
Demographics + + + | Address | [address] | | | [place] [address] | + + + | Home Phone [...] Author | [facility] | | | and [place] | + + + | Organization | [facility] | | | and [place] | + + + | Address | Unknown | + + + | Phone | Unavailable | + + + Support + + + + + | Name | Relationship | Address | Phone | + + + + + | Fabienne Juarez | ECON | [place] | | | | | [address] | | + + + + + Care Team Providers + +------+ + | Care Power Ballast Machine Operator Name | Role | Phone [...] | prosthetic devices, | | | | [address] | [place] [address] | implants and grafts, | | | | [phone] | [phone] | initial encounter | | | | [...]
--- OUTSIDE RECORDS SUMMARY | ~2019-03-11 | XMS | Encounter Summary ---
Demographics + + + | Address | [address] | | | [place] [address] | + + + | Home Phone [...] Author | [facility] | | | and [place] | + + + | Organization | [facility] | | | and [place] | + + + | Address | Unknown | + + + | Phone | Unavailable | + + + Support + + + + + | Name | Relationship | Address | Phone | + + + + + | Fabienne Juarez | ECON | [place] | | | | | [address] | | + + + + + Care Team Providers + +------+ + | Care Party Host Name | Role | Phone | + [...] | | | | [address] | [phone] | | | | | [address] | | | | | | [phone] | | | +--------+ + + + [...]
[~2019-03-11 08:15] MED LIST changes: +BAYER CHEWABLE81 MG PO; +CELECOXIB200 MG; +CITALOPRAM HBR20 MG PO; +CLONIDINE HCL0.1 MG PO; +GEODON20 MG PO; +HYDROXYZINE HCL50 MG PO; +NEURONTIN400 MG PO; +OXYCODONE HCL5 MG
--- OUTSIDE RECORDS SUMMARY | 2019-03-11 08:18 | XMS ---
PreManage Notification: ASIYA APODACA Security Adjustment Clerk Events No recent Security Events currently on file CRITERIA MET - [facility] Guidelines - PDMP CARE PROVIDERS Nathaniel Slaughter MD PHONE: Unknown [facility] 07/11/2018-Current PHONE: [phone] ELISABETH GONZALEZ MD Orthopaedic Surgery: Adult 01/01/2019-Current Reconstructive Orthopaedic Surgery PHONE: [phone] Guidelines Source: [facility] Guidelines Date: 01/01/2019 Care Coordination: Receives mental health services with [facility].\T\nbsp; Please contact [facility] for any mental health concerns.\T\nbsp; Miner/Amboy: [phone]\ T\nbsp; Kendra: [phone]. Rosalind VISIT COUNT (12 MO.) 5 [facility] TOTAL 5 NOTE: Visits indicate total known visits. ED/UCC VISIT TRACKING (12 MO.) 03/11/2019 08:16 [facility] [place] TYPE: Emergency COMPLAINT: - SOB 12/31/2018 13:54 [facility] [place] TYPE: Emergency COMPLAINT: - PELVIC PAIN DIAGNOSES: - Allergy status to oth drug/meds/biol subst status - Essential (primary) hypertension - Other chronic pain - Anxiety disorder, unspecified - Nicotine dependence, unspecified, uncomplicated - Major depressive disorder, single episode, unspecified - Pain in left hip 07/10/2018 16:13 [facility] [place] TYPE: Emergency COMPLAINT: - L HIP PAIN DIAGNOSES: - Anxiety disorder, unspecified - Fall on same level, unspecified, initial encounter - Major depressive disorder, single episode, unspecified - Unspecified asthma, uncomplicated - Allergy status to oth drug/meds/biol subst status - Pain in left hip - Essential (primary) hypertension - Other mcfp (current) drug therapy - Nicotine dependence, unspecified, uncomplicated 06/29/2018 18:07 [facility] [place] TYPE: Emergency COMPLAINT: - LEFT HIP PAIN/NON INJURY DIAGNOSES: - [facility] compl of internal left hip prosthesis, init encntr - Nicotine dependence, unspecified, uncomplicated - Essential (primary) hypertension - Other long term care social worker (current) drug therapy - Allergy status to oth drug/meds/biol subst status - Unspecified asthma, uncomplicated - Major depressive disorder, single episode, unspecified - Anxiety disorder, unspecified 05/14/2018 19:[address] [facility] [place] TYPE: Emergency COMPLAINT: - FALL/R ARM INJURY DIAGNOSES: - Allergy status to oth drug/meds/biol subst status - Essential (primary) hypertension - Unspecified sprain of right hip, initial encounter - Sprain of unspecified site of right knee, initial encounter - Unspecified asthma, uncomplicated - Other mcfp (current) drug therapy - Anxiety disorder, unspecified - Nicotine dependence, unspecified, uncomplicated - Pain in right elbow - Major depressive disorder, single episode, unspecified - Nondisp fx of head of right radius, init for clos fx - Fall (on) (from) unspecified stairs and steps, init encntr INPATIENT VISIT TRACKING (12 MO.) No inpatient visits to display in this time frame [email or web address]
--- NOTE | 2019-03-11 12:04 | NUR ---
PT ARRIVED TO FLOOR VIA STRETCHER. VITALS TAKEN AND STABLE. SATURATION 86% ON RA. 2L NC PLACED. LUNGS SOUND COARSE. REPORTS 7/10 PAIN IN HEAD AND CHEST FROM COUGHING. PT WITH NONPRODUCTIVE COUGH. BOWEL TONES ACTIVE. BM TWO DAYS AGO. WATER PROVIDED AND FOOD ORDERED. ORIENTED TO ROOM AND CALL LIGHT. DENEIS FURTHER NEEDS.
--- NOTE | 2019-03-11 12:37 | NUR ---
INFORMATION ABOUT ADVANCE DIRECTIVE. TYLENOL GIVEN FOR HEADACHE. CALL LIGHT IN REACH.
--- NOTE | 2019-03-11 13:36 | NUR ---
PT OFF FLOOR TO IMAGING.
--- NOTE | 2019-03-11 14:03 | NUR ---
PT ARRIVED BACK TO FLOOR VIA WHEEL CHAIR. PT REPORTING TYLENOL DID NOT WORK FOR PAIN MANAGEMENT. DR MONTOYA CALLED AND NOTIFIED. NEW ORDERS RECEIVED.
--- NOTE | 2019-03-11 16:30 | NUR ---
PT UP TO BATHROOM TO VOID. URINE WITH STRONG FOUL ODOR. ASSISTED BACK TO BED. PT WITH HARSH NONPRODUCTIVE COUGH. DR MONTOYA CALLED AND NOTIFIED OF URINE AND COUGH. NEW ORDERS RECEIVED. CALL LIGHT IN REACH.
--- NOTE | 2019-03-11 19:00 | NUR ---
REPORT RECEIVED FROM OFFGOING RN, [place].
--- NOTE | 2019-03-11 19:05 | NUR ---
BEDSIDE REPORT RECEIVED FROM OFFGOING JUAN HASSAN.
--- NOTE | 2019-03-11 20:13 | NUR ---
PT ASSESSMENT COMPLETE. PT DENIES SOB, OR NAUSEA. PT REQUESTS MEDICATION TO HELP HER SLEEP AND COUGH SUPPRESSANT. MEDICATIONS ADMINISTERED, SEE MAR. PT ASKS ABOUT COUGH SYRUP WITH CALVIN SPECIFICALLY. PT STATES SHE WANTS IT SO SHE WILL BE ABLE TO SLEEP. EDUCATION PROVIDED REGARDING CURRENT MED ADMINISTRATION. PT STATES UNDERSTANDING. LUNG SOUNDS COARSE WITH EXPIRATORY WHEEZE IN ALL LUNG DEL TORO. SAO2 92% ON RA. PT REQUESTING MULTIPLE THINGS TO EAT INCLUDING, POPSICLE, CHIPS, CRACKERS, SODA. POPSICLE, SODA, CRACKERS PROVIDED. PT DENIE FURTHER NEEDS AT THIS TIME. POC FOR THIS SHIFT DISCUSSED. PT STATES UNDERSTANDING. CALL LIGHT IN REACH, PT AGREES TO USE FOR NEEDS.
--- NOTE | 2019-03-11 21:58 | NUR ---
PT UTILIZES CALL LIGHT TO REQUEST ANOTHER CAN OF 7 UP AND MORE CRACKERS. 2 PACKETS OF CRACKERS AND A CAN OF 7 UP PROVIDED. PT EATS 4 CRACKERS WHILE WRTIER ADMINISTERING SCHEDULED MEDCIATIONS. PT ASKS "CAN I HAVE MORE CRACKERS?" MANAGER SEARCH ENCOURAGES PT TO TRY TO REST INSTEAD OF FOCUSING ON FOOD. REMINDED PT THAT SHE HAS HAD A TOTAL OF 3 POPSICLES AND 10 CRACKERS THIS EVENING, AND ATE ALL OF HER DINNER. PT STATES "I'M JUST SO HUNGRY." MANAGER SEARCH AGAIN ENCOURAGES PT TO TRY TO GET SOME REST. PT AGREES. DENIES FURTHER NEEDS AT THIS TIME. CALL LIGHT IN REACH.
--- NOTE | 2019-03-11 22:55 | NUR ---
ANSWERED CALL LIGHT. SBA TO THE BATHROOM. PATIENT IS BACK IN BED. CALL LIGHT IN REACH.
--- NOTE | 2019-03-11 23:52 | NUR ---
PT RESTING IN BED ON HER L SIDE, FACING AWAY FROM DOOR. RESPIRATIONS ARE EVEN, PT SNORING AUDIBLY. DOES NOT WAKE WHILE SPECIALTIES OPERATOR AT DOORWAY. CALL LIGHT WITHIN REACH.
--- NOTE | 2019-03-12 00:47 | NUR ---
PATIENT CALLED C/O COLD THE ROOM. WARM BLANKET PROVIDED AND TURN UP THE TEMP. IN ROOM TO 70.
--- NOTE | 2019-03-12 00:52 | NUR ---
PATIENT ASKED FOR CRACKERS. PRIMARY RN NOTIFIED.
--- NOTE | 2019-03-12 02:15 | NUR ---
PT RESETING IN BED, WAKES EASILY. ASSESSMENT COMPLETE. PT DENIES PAIN OR NAUSEA. REPORTS SOB, ESPECIALLY WITH MOVEMENT. LUNG SOUNDS WITH EXPIRATORY WHEEZE TO ALL LUNG GIELDS. SA02 92% ON RA. PT DENIES OFFER OF PRN NEB. PT STATES SHE IS "REALLY TIRED". PT DENIES FURTHER NEEDS AT THIS TIME. STATES THAT SHE IS WARM ENOUGH. PT ENCOURAGED TO USE THE CALL LIGHT FOR NEEDS. PT AGREES.
--- NOTE | 2019-03-12 06:05 | NUR ---
PT RESTING IN BED WITH EYES CLOSED. PT DOES NOT WAKE WHILE CAMPAIGN MANAGER IN DOORWAY. SAO2 92%. CALL LIGHT IN REACH.
--- NOTE | 2019-03-12 07:38 | NUR ---
PT SLEEPING AT TIME OF BEDSIDE REPORT APPEARS COMFORTABLE BREATHING EVEN AND UNLABORED
--- NOTE | 2019-03-12 10:17 | NUR ---
PATIENT IN BED RESTING. PATIENT ASKED FOR MEDS, RN NOTIFIED. CALL LIGHT IN REACH. NO FURTHER NEEDS AT THIS TIME.
--- NOTE | 2019-03-12 10:40 | NUR ---
PT REQUESTS GABAPENTIN, THIS IS ADMINISTERED THEN PT MOVED ARM IN BED AND FLIPPED IV SITE OUT OF RIGHT HAND, NEW IV SITE PLACED IN RIGHT FA.
--- NOTE | 2019-03-12 11:01 | NUR ---
DR MONTOYA IN TO SEE PT ORDERS PRN MEDICATION FOR HER. PT RETURNS TO RESTING WITH EYES CLOSED, HAS DECLINED TO GET UP TO THE CHAIR THIS SHIFT
--- NOTE | 2019-03-12 12:29 | NUR ---
PT REPORTS GABAPENTIN WAS EFFECTIVE FOR HER HIP DISCOMFORT. SHE REMAINS IN BED DESPITE ENCOURAGEMENT TO GET UP TO THE CHAIR. EATS 100% OF NOON MEAL. ENCOURAGED PT TO SHOWER THIS SHIFT SHE SAYS "MAYBE LATER" RETURNS TO RESTING IN BED.
[2019-03-12] MEDS ORDERED: VENTOLIN HFA18 GM INH (13:02)
[2019-03-12] MEDS ORDERED: ROPINIROLE HCL1 MG PO (13:04)
[2019-03-12] MEDS ORDERED: MIRAPEX1 MG PO (13:04)
[2019-03-12] MEDS ORDERED: IPRAT-ALBUT 0.5-3 ML INH (13:05)
--- NOTE | 2019-03-12 13:10 | NUR ---
MED REC COMPLETE
--- NOTE | 2019-03-12 13:16 | EKG ---
[facility] [address] [facility] [place], [place] [address] Signed Sinus tachycardia Otherwise normal ECG No previous ECGs available Confirmed by LAUREL MONTOYA DO ([id number]) on 03/12/2019 1:16:09 PM Electronically Signed By: LAUREL MONTOYA DO 03/12/19 1316 PATIENT NAME: ASIYA APODACA Electrocardiogram DATE OF : 70 PHYSICIAN: LAUREL MONTOYA DO REPORT #: [id number] REPORT IS CONFIDENTIAL AND NOT TO BE RELEASED WITHOUT AUTHORIZATION
--- NOTE | 2019-03-12 13:27 | NUR ---
PATIENT IN BED WATCHING TV. CALL LIGHT IN REACH. NO FURTHER NEEDS AT THIS TIME.
--- NOTE | 2019-03-12 14:30 | NUR ---
SPOKE WITH PATIENT IN ROOM. PATIENT IS LIVING AT [facility]. SHE IS UNEMPLOYED. STILL DRIVES AND HAS A CAR. PATIENT FEELS SAFE TO RETURN THERE AT DISCHARGE. PATIENT STATES SHE HAS MONEY FOR EXPENSES AND MEDS. SHE ASKS THAT WE GIVE HER A INHALER AT DISCHARGE HERS WAS STOLEN FROM HER CAR RIGHT AFTER SHE GOT IT FROM INSURANCE AND THEY WON'T COVER ANOTHER ONE FOR AWHILE. SHE STATES THEY ARE TOO EXPENSIVE TO BUY. SHE DOES HAVE A NEBULIZER AND HAS HER MEDICATIONS FOR IT AT HOME. SHE HAS A WALKER AND USES IT DAILY. SHE KNOWS OF NO BARRIERS TO DISCHARGE BACK HOME. WILL FOLLOW NEEDED.
--- NOTE | 2019-03-12 14:41 | NUR ---
PT CONTINUES TO REST IN BED, AGAIN ENCOURAGED SHOWER, UP TO THE CHAIR OR OTHER ACTIVITY PT RESPONDS SHE WILL LATER, BUT NOT NOW
--- NOTE | 2019-03-12 15:43 | NUR ---
PT TO SHOWER PERSONAL CARE ITEMS PROVIDED PT REFUSES NEED OF ASSIST. LINENS CHANGED PT RETURNS TO BED SOB FROM ACTIVITY HR ELEVATED 110 RECOVERS QUICKLY
--- NOTE | 2019-03-12 17:55 | NUR ---
PT CONTINUES RESTING IN BED WITHOUT C/O. LUNG SOUNDS HAVE IMPROVED THIS SHIFT DESPITE NOT TOLERATING ACTIVITY WELL. PT DENIES ANY NEEDS AT THIS TIME
--- NOTE | 2019-03-12 18:34 | NUR ---
PATIENT IN BED RESTING WITH EYES CLOSED. CALL LIGHT IN REACH. NO FURTHER NEEDS AT THIS TIME. PATIENT COMPLAINED OF CHEST FEELING TIGHT, RN NOTIFIED.
--- NOTE | 2019-03-12 21:13 | NUR ---
PT ASSESSMENT COMPLETE. PT RESTING IN BED WITH EYES CLOSED.W AKES EASILY. PT DENIES PAIN OR NAUSEA. REPORTS SLIGHT SOB, IMPROVED PER PT. SAO2 92% ON RA. LUNG SOUNDS WITH RHONCI PRESENT. DO NOT CLEAR WITH COUGH. PT DENIES MUCOUS PRODUCTION. RT IN ROOM TO ADMINISTER NEB TREATMENT. PT GIVEN VISTARIL TO ASSIST WITH SLEEP. PT DENIES FURTHER NEEDS AT THIS TIME. CALL LIGHT WITHIN REACH. RT AT BEDSIDE.
--- NOTE | 2019-03-12 22:38 | NUR ---
PT RESTING IN BED WITH EYES CLOSED. ON HER R SIDE. SAO2 93%. PT APPEARS TO BE SLEEPING. CALL LIGHT IN REACH.
--- NOTE | 2019-03-13 01:51 | NUR ---
PT JUST FINISHING USING THE [employer]UTION MANAGER ENTERS THE ROOM. PT REPORTS INCREASED SOB AFTER GETTING UP. SAO2 95% ON RA. PT WITH EXPIRATORY WHEEZE THROUGHOUT UPON AUSCLTATION. PT DENIES NEED FOR PRN NEB. PT DENIES PAIN OR NAUSEA. ASSESSMENT OTHERWISE UNCHAGED. PT REQUESTS APPLE JUICE, PROVIDED. DENIES FURTHER NEEDS AT THIS TIME. CALL LIGHT IN REACH.
--- NOTE | 2019-03-13 04:01 | NUR ---
PT RESTING IN BED ON R SIDE. RESPIRATIONS EVEN AND UNLABORED. PT APPEARS TO BE SLEEPING. SAO2 94%. CALL LIGHT IN REACH.
--- NOTE | 2019-03-13 05:20 | NUR ---
PT SLEPT OFF AND ON THIS SHIFT. CPOX, RA. OCCASIONAL PRODUCTIVE COUGH. SOLUMEDROL/NEBS. SOB WITH EXERTION. SBA TO BSC. GOOD UO. IV SL. ROCEPHIN.
--- NOTE | 2019-03-13 06:28 | NUR ---
SPEECH THERAPIST EARLY INTERVENTION TO ROOM FOR SCHEDULED MEDICATION ADMINISTRATION. PT REPORTS THAT HER BREATHING FEELS "TIGHT". DECLIENS PRN NEB. PT STATES THAT STOMACH AND RIBS FEEL SORE D/T COUGHING. PT REQUESTS PRN GABAPENTIN. ADMINISTERED. PT DENIES FURTHER NEEDS AT THIS TIME. CALL LIGHT WITHIN REACH.
--- NOTE | 2019-03-13 08:45 | NUR ---
FLUSHED RIGHT FA IV PRIOR TO IV ABX INFUSION. PT REPORTED THE FLUSH WAS VERY PAINFUL AND NOTED THE SITE WAS BECOMING TAUT AND PUFFY. HELD IV ABX DOSE AND DC'D IV. DR. LEDBETTER AWARE.
[2019-03-13] MEDS ORDERED: AZITHROMYCIN250 MG PO (09:47)
[2019-03-13] MEDS ORDERED: PREDNISONE10 MG PO (09:48)
[2019-03-13] MEDS ORDERED: CEFPODOXIME PR200 MG PO (09:50)
--- NOTE | 2019-03-13 09:53 | NUR ---
PT SITTING ON EDGE OF BED APPEARS ANXIOUS. SHE HAD CALLED TO SAY SHE WAS GOING HOME. WHEN ASKED IF THE DOCTOR HAD SEEN HER SHE STATED "NO NOT YET BUT I'M GOING HOME, I'M NOT GONNA STAY HERE ANY LONGER. I REALLY WANT TO GO HOME." PT AGREEABLE TO WAIT UNTIL DR COULD SEE HER. DR. LEDBETTER IN TO ROUND ON PT. DC ORDERS OBTAINED. OBTAINED LONER SCRUBS FOR PT TO GO HOME IN SHE STATES SHE HAS NO CLOTHING WITH HER AND SHE WILL BE DRIVING HERSELF HOME.
--- NOTE | 2019-03-13 10:04 | NUR ---
PATIENT DRESSED AND READY TO GO. CALL LIGHT IN REACH. NO FURTHER NEEDS AT THIS TIME.
--- NOTE | 2019-03-15 10:15 | NUR ---
ATTEMPTED TO CALL PT, @ [phone], LISTED # ON FACE SHEET. WAS TOLD THAT THIS NUMBER IS DISCONNECTED AND NO LONGER IN SERVICE.
== END 2019-03-13 10:30 | disposition home or self-care (01) ==
LOC: ED 08:15 → MS 08:17
PROVIDERS: ADMIT Student in an Organized Health Care Education/Training Program
DX: J45.901 Unspecified asthma with (acute) exacerbation (principal); J18.9 Pneumonia, unspecified organism; F17.210 Nicotine dependence, cigarettes, uncomplicated; R91.8 Other nonspecific abnormal finding of lung field; I10 Essential (primary) hypertension; F41.9 Anxiety disorder, unspecified; F32.9 Major depressive disorder, single episode, unspecified; G89.29 Other chronic pain; Z23 Encounter for immunization; Z88.8 Allergy status to other drugs, medicaments and biological substances; Z79.899 Other long term (current) drug therapy
CPT/HCPCS: 36415; 71045; 71260; 80048; 83735; 83880; 84484; 85025; 85379; 90688; 93005; 93010; 94640; 94667; 94668; 94762; 96361; 96365; 96375; 96376; 99285-25; 99406; A9270; G0008; G0378; J0696; J1100; J1885; J2930; J7030; Q0177; Q9967

== ENCOUNTER 2019-07-24 13:10 | Emergency (ER) | payer OTHER ==
[~2019-07-24] VITALS: Ht 152.4 cm; Wt 121.6 kg
--- OUTSIDE RECORDS SUMMARY | ~2019-07-24 | XMS | Clinical Summary ---
Demographics + + + | Address | [address] | | | [place] [address] | + + + | Home Phone | | + + + | Preferred Language | Unknown | + + + | Marital Status | | + + + | Holiness Affiliation | Unknown | + + + | Race | Unknown | + + + | Ethnic Group | Unknown | + + + Author + + + | Author | [facility] (Historical as of | | | 10-21-18) | + + + | Organization | [facility] (Historical as of | | | 10-21-18) | + + + | Address | Unknown | + + + | Phone | Unavailable | + + + Support + + + + + | Name | Relationship | Address | Phone | + + + + + | Fabienne Juarez | ECON | [place] | | | | | [address] | | + + + + + Care Team Providers + +------+ + | Care Junior Brand Manager Name | Role | Phone | + +------+ + | None, Per Pt | PP | [phone] | + +------+ + Allergies + + + + + + | Active Allergy | Reactions | Severity | Noted | Comments | | | | | Date | | + + + + + + | Bupropion | Hives | High | 10/07/19 | | | | | | 19 | | + + + + + + Current Medications + + + +---------+------+------+-------+ | Prescription | Sig. | Disp. | Refills | Star | End | Statu | | | | | | t | Date | s | | | | | | Date | | | + + + +---------+------+------+-------+ | hydrOXYzine | Take 10 mg by mouth | | | | | Activ | | (ATARAX) 10 MG | 3 (three) times | | | | | e | | tablet | daily as needed for | | | | | | | | Anxiety. | | | | | | + + + +---------+------+------+-------+ | citalopram | Take 40 mg by mouth | | | | | Activ | | (CELEXA) 40 MG | daily. | | | | | e | | tablet | | | | | | | + + + +---------+------+------+-------+ | cloNIDine | Take 0.1 mg by mouth | | | | | Activ | | (CATAPRES) 0.1 MG | 2 (two) times | | | | | e | | tablet | daily. | | | | | | + + + +---------+------+------+-------+ | UNABLE TO FIND | Disabled parking | 1 each | 0 | 07/3 | | Activ | | | placard | | | 1/20 | | e | | | | | | 19 | | | + + + +---------+------+------+-------+ | | Take 1 tablet by | 30 | 0 | 07/3 | | Activ | | HYDROcodone-acetamin | mouth every 12 | tablet | | 1/20 | | e | | ophen (NORCO) 5-325 | (twelve) hours as | | | 19 | | | | MG per tablet | needed for Pain. | | | | | | + + + +---------+------+------+-------+ | topiramate | Take 25 mg by mouth | | | | | Activ | | (TOPAMAX) 25 MG | 2 (two) times daily. | | | | | e | | capsuleIndications: | | | | | | | | for weight loss | | | | | | | + + + +---------+------+------+-------+ Active Problems + + + | Problem | Noted Date | + + + | Artificial joint pain (HCC) | 09/11/2018 | + + + + + | Overview: Added automatically from request for surgery [id number] | + + + + + | Mechanical instability of hip prosthesis (HCC) | 09/11/2018 | + + + + + | Overview: Added automatically from request for surgery [id number] | + + Family History + + +------+ + | Medical History | Relation | Name | Comments | + + +------+ + | Cancer | Father | | | + + +------+ + | Heart disease | Father | | | + + +------+ + | Stroke | Mother | | | + + +------+ + | Malig hypertherm | Neg Hx | | | + + +------+ + + +------+ + + | Relation | Name | Status | Comments | + +------+ + + | Father | | | | + +------+ + + | Mother | | | | + +------+ + + Social History + +-------+ +--------+------+ | Tobacco Use | Types | Packs/Day | Years | Date | | | | | Used | | + +-------+ +--------+------+ | Current Every Day | | 0.5 | 20 | | | Smoker | | | | | + +-------+ +--------+------+ + +---+---+---+ | Smokeless Tobacco: | | | | | Never Used | | | | + +---+---+---+ + + | Tobacco Cessation: Ready to Quit: Yes; Counseling Given: Yes | + + + + +---------+ + | Alcohol Use | Drinks/We | oz/Week | Comments | | | ek | | | + + +---------+ + | No | | | | + + +---------+ + + + + | Sex Assigned at | Date Recorded | | | | + + + | Not on file | | + + + Last Filed Vital Signs + + + + | Vital Sign | Reading | Time Taken | + + + + | Blood Pressure | 118/64 | 10/06/2018 10:34 AM PDT | + + + + | Pulse | 72 | 10/04/2018 9:13 AM PDT | + + + + | Temperature | - | - | + + + + | Respiratory Rate | - | - | + + + + | Oxygen Saturation | 96% | 10/06/2018 10:34 AM PDT | + + + + | Inhaled Oxygen | - | - | | Concentration | | | + + + + | Weight | 119 kg (262 lb 5.6 | 10/06/2018 10:34 AM PDT | | | oz) | | + + + + | Height | 152.4 cm (5') | 10/06/2018 10:34 AM PDT | + + + + | Body Mass Index | 51.24 | 10/06/2018 10:34 AM PDT | + + + + Plan of Treatment + + + + + | Health Maintenance | Due Date | Last Done | Comments | + + + + + | Vaccine: | | | | | Dtap/Tdap/Td (1 - | 0 | | | | Tdap) | | | | + + + + + | Vaccine: | | | | | Pneumococcal 19-64 | 0 | | | | (PPSV23 only) Medium | | | | | Risk (1 of 1 - | | | | | PPSV23) | | | | + + + + + | Cervical Cancer | | | | | Screening (Pap) | 1 | | | + + + + + | Vaccine: Influenza | | | | | (Season Ended) | 0 | | | + + + + + Results Not on filefrom Last 3 Months Insurance + +--------+ +------+-------+ + | Payer | Benefi | Subscriber | Type | Phone | Address | | | t Plan | ID | | | | | | / | | | | | | | Group | | | | | + +--------+ +------+-------+ + | MEDICAID | [employer] | [id number] | | | [address] | | | N | | | | [place] | | | [place] | | | | [address] | | | [employer] AND [employer]ILATING [employer] | | | | | + +--------+ +------+-------+ + + +--------+ +--------+ + + | Guarantor Name | Accoun | Relation to | Date | Phone | Billing Address | | | t Type | Patient | of | | | | | | | | | | + +--------+ +--------+ + + | SYLVIE APODACA | Person | Self | [birth year] | Home: | [address] | | | al/Fam | | 1971 | [phone] [place] [address] | | | sreekanth | | | [phone] | | + +--------+ +--------+ + +"
--- OUTSIDE RECORDS SUMMARY | ~2019-07-24 | XMS | Encounter Summary ---
Demographics + + + | Address | [address] | | | [place] [address] | + + + | Home Phone | | + + + | Preferred Language | Unknown | + + + | Marital Status | | + + + | Buddhist Affiliation | Unknown | + + + | Race | Unknown | + + + | Ethnic Group | Unknown | + + + Author + + + | Author | [facility] | | | and [place] | + + + | Organization | [facility] | | | and [place] | + + + | Address | Unknown | + + + | Phone | Unavailable | + + + Support + + + + + | Name | Relationship | Address | Phone | + + + + + | Fabienne Juarez | ECON | [place] | | | | | [address] | | + + + + + Care Team Providers + +------+ + | Care Clubhouse Manager Name | Role | Phone | + +------+ + | No, Physician | PCP | Unavailable | + +------+ + Encounter Details +--------+ + + + + | Date | Type | Department | Care Team | Description | +--------+ + + + + | 09/19/ | Orders Only | [facility] | Miah Monique | | | 2019 | | [address] | MD Fab [address] | | | | | [place] | [place] | | | | | [address] | [place] [address] | | | | | [phone] | [phone] | | | | | | | [...] Not on filedocumented as of this encounter Procedures + +--------+ + + + | Procedure Name | Priori | Date/Time | Associated Diagnosis | Comments | | | ty | | | | + +--------+ + + + | SEDIMENTATION RATE, | Routin | 09/19/2018 | | Results for this | | AUTOMATED | e | 11:29 AM | | procedure are in the | | | | PDT | | results section. | + +--------+ + + + | C-REACTIVE PROTEIN | Routin | 09/19/2018 | | Results for this | | | e | 11:29 AM | | procedure are in the | | | | PDT | | results section. | + +--------+ + + + documented in this encounter Results Sedimentation rate, automated (09/19/2018 11:29 AM PDT) + +-------+ + + + | Component | Value | Ref Range | Performed | Pathologist | | | | | At | Signature | + +-------+ + + + | Sed Rate | 16 | 0 - 20 mm/h | EXTERNAL | | | | | | LAB | | + +-------+ + + + + + | Specimen | + + | Blood specimen | | (specimen) | + + + +---------+ + + | Performing | Address | City/State/Zipcode | Phone Number | | Organization | | | | + +---------+ + + | EXTERNAL LAB | | | | + +---------+ + + C-Reactive Protein (09/19/2018 11:29 AM PDT) + +---------+ + + + | Component | Value | Ref Range | Performed | Pathologist | | | | | At | Signature | + +---------+ + + + | CRP | 1.3 (H) | mg/dL | EXTERNAL | | | | | | LAB | | + +---------+ + + + + + | Specimen | + + | Blood specimen | | (specimen) | + + + +---------+ + + | Performing | Address | City/State/Zipcode | Phone Number | | Organization | | | | + +---------+ + + | EXTERNAL LAB | | | | + +---------+ + + documented in this encounter Visit Diagnoses Not on filedocumented in this encounter"
--- OUTSIDE RECORDS SUMMARY | ~2019-07-24 | XMS | Encounter Summary ---
Demographics + + + | Address | [address] | | | [place] [address] | + + + | Home Phone | | + + + | Preferred Language | Unknown | + + + | Marital Status | | + + + | Nondenominational Affiliation | Unknown | + + + | Race | Unknown | + + + | Ethnic Group | Unknown | + + + Author + + + | Author | [facility] | | | and [place] | + + + | Organization | [facility] | | | and [place] | + + + | Address | Unknown | + + + | Phone | Unavailable | + + + Support + + + + + | Name | Relationship | Address | Phone | + + + + + | Fabienne Juarez | ECON | [place] | | | | | [address] | | + + + + + Care Team Providers + +------+ + | Care Business Law Professor Name | Role | Phone | + +------+ + | Celestine Watters MD | PCP | | + +------+ + Reason for Visit +--------+ + | Reason | Comments | +--------+ + | Other | [facility]ISA RX REQUEST | +--------+ + Encounter Details +--------+ + + + + | Date | Type | Department | Care Team | Description | +--------+ + + + + | 12/26/ | Telephone | [facility] | Miah Monique | Other ([facility] | | 2019 | | [place] [address] | MD [address] | REQUEST) | | | | [address] [place], [place] | [address] | | | | | [address] | [place] [address] | | | | | [phone] | [phone] | | | | | | | [...] + +---------+ + | Alcohol Use | Drinks/Week | oz/Week | Comments | + + +---------+ + | Not [...]
--- OUTSIDE RECORDS SUMMARY | ~2019-07-24 | XMS | Encounter Summary ---
Demographics + + + | Address | [address] | | | [place] [address] | + + + | Home Phone | | + + + | Preferred Language | Unknown | + + + | Marital Status | | + + + | Uatsdin Affiliation | Unknown | + + + | Race | Unknown | + + + | Ethnic Group | Unknown | + + + Author + + + | Author | [facility] | | | and [place] | + + + | Organization | [facility] | | | and [place] | + + + | Address | Unknown | + + + | Phone | Unavailable | + + + Support + + + + + | Name | Relationship | Address | Phone | + + + + + | Fabienne Juarez | ECON | [place] | | | | | [address] | | + + + + + Care Team Providers + +------+ + | Care Sustainability Project Manager Name | Role | Phone | + +------+ + | Celestine Watters MD | PCP | | + +------+ + Reason for Visit +--------+ + | Reason | Comments | +--------+ + | Triage | | +--------+ + Encounter Details +--------+ + + + + | Date | Type | Department | Care Team | Description | +--------+ + + + + | 01/01/ | Telephone | [facility] | Miah Monique | Triage | | 2019 | | [place] [address] | MD [address] | | | | | [address] [place], [place] | [address] | | | | | [address] | [place] [address] | | | | | [phone] | [phone] | | | | | | | [...]
--- OUTSIDE RECORDS SUMMARY | ~2019-07-24 | XMS | Clinical Summary ---
Demographics + + + | Address | [address] | | | [place] [address] | + + + | Home Phone | | + + + | Preferred Language | Unknown | + + + | Marital Status | | + + + | Hoahaoism Affiliation | Unknown | + + + | Race | Unknown | + + + | Ethnic Group | Unknown | + + + Author + + + | Author | [facility] | | | and [place] | + + + | Organization | [facility] | | | and [place] | + + + | Address | Unknown | + + + | Phone | Unavailable | + + + Support + + + + + | Name | Relationship | Address | Phone | + + + + + | Fabienne Juarez | ECON | [place] | | | | | [address] | | + + + + + Care Team Providers + +------+ + | Care Coating Mixer Name | Role | Phone | + +------+ + | Celestine Watters MD | PCP | | + +------+ + Allergies + + + + + + | Active Allergy | Reactions | Severity | Noted | Comments | | | | | Date | | + + + + + + | Bupropion | Hives | High | 10/07/19 | | | | | | 19 | | + + + + + + Medications + + + +---------+------+------+-------+ | Medication | Sig | Dispensed | Refills | Star | End | Statu | | | | | | t | Date | s | | | | | | Date | | | + + + +---------+------+------+-------+ | hydrOXYzine | Take 10 mg by mouth | | 0 | 07/0 | | Activ | | hydrochloride | 3 (three) times | | | 8/20 | | e | | (ATARAX) 10 mg | daily as needed for | | | 19 | | | | tablet | Anxiety. | | | | | | + + + +---------+------+------+-------+ | citalopram | Take 40 mg by mouth | | 0 | 07/0 | | Activ | | (CELEXA) 40 mg | daily. | | | 8/20 | | e | | tablet | | | | 19 | | | + + + +---------+------+------+-------+ | cloNIDine | Take 0.1 mg by mouth | | 0 | 07/0 | | Activ | | (CATAPRES) 0.1 mg | 2 (two) times | | | 8/20 | | e | | tablet | daily. | | | 19 | | | + + + +---------+------+------+-------+ | furosemide (LASIX) | Take 1 tablet by | 30 | 0 | 09/1 | | Activ | | 40 mg tablet | mouth 2 times daily. | tablet | | 0/20 | | e | | | | | | 19 | | | + + + +---------+------+------+-------+ | acetaminophen | Take 3 tablets by | 120 | 0 | 09/1 | | Activ | | (TYLENOL) 325 mg | mouth 3 times daily. | tablet | | 0/20 | | e | | tablet | | | | 19 | | | + + + +---------+------+------+-------+ | | Take 3 mLs by | 360 mL | 2 | 09/1 | | Activ | | albuterol-ipratropiu | nebulization every 4 | | | 0/20 | | e | | m 2.5-0.5 mg/3 mL | hours as needed for | | | 19 | | | | SOLN | Wheezing or | | | | | | | | Shortness of Breath. | | | | | | + + + +---------+------+------+-------+ | albuterol 90 | Inhale 2 puffs into | 1 | 2 | 09/1 | | Activ | | mcg/puff inhaler | the lungs every 4 | Inhaler | | 0/20 | | e | | | hours as needed for | | | 19 | | | | | Shortness of Breath. | | | | | | + + + +---------+------+------+-------+ | celecoxib | Take 1 capsule by | 60 | 0 | 09/1 | | Activ | | (CELEBREX) 200 mg | mouth 2 times daily. | capsule | | 0/20 | | e | | capsule | | | | 19 | | | + + + +---------+------+------+-------+ | nicotine | Place 1 patch onto | 30 | 2 | 09/1 | | Activ | | (NICODERM) 7 mg/24 | the skin Daily. | patch | | 0/20 | | e | | hr | | | | 19 | | | + + + +---------+------+------+-------+ Active Problems + + + | Problem | Noted Date | + + + | Vitamin D deficiency | 10/30/2018 | + + + | Acute respiratory failure with hypoxia | 10/28/2018 | + + + | Morbid obesity | 10/28/2018 | + + + | Shortness of breath | 10/27/2018 | + + + | Artificial joint pain | 09/11/2018 | + + + + + | Overview: Added automatically from request for surgery [id number] | + + + + + | Mechanical instability of hip prosthesis | 09/11/2018 | + + + + + | Overview: Added automatically from request for surgery [id number] | + + Family History + + [...] | | + +------+ + + | Father [...] recent travel history available. | + + Last Filed Vital Signs + + + + + | Vital Sign | Reading | Time Taken | Comments | + + + + + | Blood Pressure | 116/76 | 12/11/2018 3:47 PM | | | | | PDT | | + + + + + | Pulse | 93 | 12/11/2018 3:47 PM | | | | | PDT | | + + + + + | Temperature | 36.9 C (98.4 F) | 11/09/2018 11:43 AM | | | | | PDT | | + + + + + | Respiratory Rate | 18 | 11/09/2018 3:14 PM | | | | | PDT | | + + + + + | Oxygen Saturation | 95% | 12/11/2018 3:47 PM | | | | | PDT | | + + + + + | Inhaled Oxygen | - | - | | | Concentration | | | | + + + + + | Weight | 119.2 kg (262 lb | 12/11/2018 3:47 PM | | | | 12.8 oz) | PDT | | + + + + + | Height | 152.4 cm (5') | 12/11/2018 3:47 PM | | | | | PDT | | + + + + + | Body Mass Index | 51.32 | 12/11/2018 3:47 PM | | | | | PDT | | + + + + + Plan of Treatment + + + + + | Health Maintenance | Due Date | Last Done | Comments | + + + + + | Vaccine: | | | | | Pneumococcal 19-64 | 7 | | | | (1 of 1 - PPSV23) | | | | + + + + + | Vaccine: | | | | | Dtap/Tdap/Td (1 - | 2 | | | | Tdap) | | | | + + + + + | Cervical Cancer | | | | | Screening (Pap) | 1 | | | + + + + + | Breast Cancer | | | | | Screening | 6 | | | + + + + + | Vaccine: Influenza | | | | | (Season Ended) | 0 | | | + + + + + Implants + +--------+--------+ +--------+--------+--------+ | Implanted | Type | Area | Manufacture | Device | Shelf | Model | | | | | r | | Expira | / | | | | | | Identi | tion | Serial | | | | | | fier | Date | / Lot | + +--------+--------+ +--------+--------+--------+ | Imp Hip Lnr Mdm 46mm F - | Generi | Left: | JULIEN | | 07/29/ | 626-00 | | SnaImplanted: Qty: 1 on | c | Hip | MEDICAL - | 2023 | -46F | | 10/24/2018 by Eneida, | | | STRY | | | /NA | | Miah Sanon MD at [facility] | | | | | | /[id number] | | [facility] | | | | | | 603 | + +--------+--------+ +--------+--------+--------+ | Insert Adm/Mdm 28mm/52 46f - | Generi | Left: | JULIEN | | 08/07/ | 1236-2 | | SnaImplanted: Qty: 1 on | c | Hip | MEDICAL - | | 2023 | -852 | | 10/24/2018 by Eneida, | | | STRJudah | | | /NA | | Miah Sanon MD at [facility] | | | | | | /[id number] | | [facility] | | | | | | 801 | + +--------+--------+ +--------+--------+--------+ | Imp Hip Fem Nk Profem Neut | Generi | Left: | MICROPORT | | 01/03/ | PHAC-1 | | Lng - SnaImplanted: Qty: 1 on | c | Hip | ORTHOPEDICS | | 2025 | 204 | | 10/24/2018 by Eneida, | | | INC - MICP | | | /NA | | Miah Sanon MD at [facility] | | | | | | /[id number] | | [facility] | | | | | | 07 | + +--------+--------+ +--------+--------+--------+ | Trident Ii Tritanium | | | STRYKERO | | 02/23/ | 709-04 | | Multihole Acetabular | | | JULIEN | | 2022 | -58F | | ShellImplanted: Qty: 1 on | | | ORTHOPEDICS | | | /NA | | 10/24/2018 by Eneida, | | | | | | /[id number] | | Miah Sanon MD at [facility] | | | | | | [id number] | | [facility] | | | | | | | + +--------+--------+ +--------+--------+--------+ | Screw Hex Lp [id number] - | | Left: | JULIEN | | 07/05/ | 7030-6 | | SnaImplanted: Qty: 1 on | | Hip | MEDICAL - | | 2023 | 530 | | 10/24/2018 by Eneida, | | | STRY | | | /NA | | Miah Sanon MD at [facility] | | | | | | /[id number] | | [facility] | | | | | | | + +--------+--------+ +--------+--------+--------+ | Screw Hex Lp [id number] - | | Left: | JULIEN | | 08/12/ | 7030-6 | | SnaImplanted: Qty: 1 on | | Hip | MEDICAL - | | 2023 | 530 | | 10/24/2018 by Eneida, | | | STRY | | | /NA | | Miah Sanon MD at [facility] | | | | | | /[id number] | | [facility] | | | | | | | + +--------+--------+ +--------+--------+--------+ | Screw Hex Lp [id number] - | | Left: | JULIEN | | 05/15/ | 7030-6 | | SnaImplanted: Qty: 1 on | | Hip | MEDICAL - | | 2023 | 515 | | 10/24/2018 by Eneida, | | | STRY | | | /NA | | Miah Sanon MD at [facility] | | | | | | /[id number] | | [facility] | | | | | | | + +--------+--------+ +--------+--------+--------+ | [employer] Delta Ceram C-Taper | | Left: | [place] | | 02/14/ | 18-28- | | Femoral Head Implanted: Qty: | | Hip | Orthopaedic | | 2020 | 3 /NA | | 1 on 10/24/2018 by Eneida, | | | s | | | /[id number] | | Miah Sanon MD at [facility] | | | | | | 901 | | [facility] | | | | | | | + +--------+--------+ +--------+--------+--------+ Results Not on filefrom Last 3 Months Insurance + +--------+ +--------+ +---------+--------+ | Payer | Benefi | Subscriber | Effect | Phone | Address | Type | | | t Plan | ID | maggie | | | | | | / | | Dates | | | | | | Group | | | | | | + +--------+ +--------+ +---------+--------+ | [place] | MEDICA | [id number] | | [phone] | | Med[place] | | | [place] | | 019-Pr | 2 | | id | | | PLUS | | esent | | | | + +--------+ +--------+ +---------+--------+ + +--------+ +--------+ + + | Guarantor Name | Accoun | Relation to | Date | Phone | Billing Address | | | t Type | Patient | of | | | | | | | | | | + +--------+ +--------+ + + | Sylvie Ramsey | Person | Self | [birth year] | [address] | | | al/Fam | | 1971 | [phone] | [place] [address] | | | sreekanth | | | 9 (Home) | | + +--------+ +--------+ + + Advance Directives + + + + + | Type | Date Recorded | Patient | Explanation | | | | [employer]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
--- OUTSIDE RECORDS SUMMARY | ~2019-07-24 | XMS | Encounter Summary ---
Demographics + + + | Address | [address] | | | [place] [address] | + + + | Home Phone | | + + + | Preferred Language | Unknown | + + + | Marital Status | | + + + | Catholic Affiliation | Unknown | + + + | Race | Unknown | + + + | Ethnic Group | Unknown | + + + Author + + + | Author | [facility] | | | and [place] | + + + | Organization | [facility] | | | and [place] | + + + | Address | Unknown | + + + | Phone | Unavailable | + + + Support + + + + + | Name | Relationship | Address | Phone | + + + + + | Fabienne Juarez | ECON | [place] | | | | | [address] | | + + + + + Care Team Providers + +------+ + | Care Machine Bookkeeper Name | Role | Phone | + +------+ + | Celsetine Watters MD | PCP | | + +------+ + Encounter Details +--------+ + + + + | Date | Type | Department | Care Team | Description | +--------+ + + + + | 10/06/ | Orders Only | [facility] | Conversion | | | 2019 | | CONVERSION DEP [address] | Transaction, | | | | | [address] | Provider Unknown | | | | | [place] | [phone] | | | | | [address] | | | | | | [phone] | | | +--------+ + + + [...]
--- OUTSIDE RECORDS SUMMARY | ~2019-07-24 | XMS | Encounter Summary ---
Demographics + + + | Address | [address] | | | [place] [address] | + + + | Home Phone | | + + + | Preferred Language | Unknown | + + + | Marital Status | | + + + | Amish Affiliation | Unknown | + + + | Race | Unknown | + + + | Ethnic Group | Unknown | + + + Author + + + | Author | [facility] | | | and [place] | + + + | Organization | [facility] | | | and [place] | + + + | Address | Unknown | + + + | Phone | Unavailable | + + + Support + + + + + | Name | Relationship | Address | Phone | + + + + + | Fabienne Juarez | ECON | [place] | | | | | [address] | | + + + + + Care Team Providers + +------+ + | Care Sausage Tier Name | Role | Phone | + [...] | | | | [address] | [phone] | | | | | [address] | | | | | | [phone] | | | +--------+ + + + [...]
--- OUTSIDE RECORDS SUMMARY | ~2019-07-24 | XMS | Encounter Summary ---
Demographics + + + | Address | [address] | | | [place] [address] | + + + | Home Phone | | + + + | Preferred Language | Unknown | + + + | Marital Status | | + + + | Methodist Affiliation | Unknown | + + + | Race | Unknown | + + + | Ethnic Group | Unknown | + + + Author + + + | Author | [facility] | | | and [place] | + + + | Organization | [facility] | | | and [place] | + + + | Address | Unknown | + + + | Phone | Unavailable | + + + Support + + + + + | Name | Relationship | Address | Phone | + + + + + | Fabienne Juarez | ECON | [place] | | | | | [address] | | + + + + + Care Team Providers + +------+ + | Care Cut Off Man Name | Role | Phone | + [...] Description | +--------+--------+ + + + | 12/28/ | Refill | [facility] | Miah Monique | Medication Refill | | 2018 | | [address] | MD Fab [address] | | | | | [address] [place], [place] | [address] | | | | | [address] | [place] [address] | | | | | [phone] | [phone] | | | | | | | [...]
--- OUTSIDE RECORDS SUMMARY | ~2019-07-24 | XMS | Encounter Summary ---
Demographics + + + | Address | [address] | | | [place] [address] | + + + | Home Phone | | + + + | Preferred Language | Unknown | + + + | Marital Status | | + + + | Lutheran Affiliation | Unknown | + + + | Race | Unknown | + + + | Ethnic Group | Unknown | + + + Author + + + | Author | [facility] | | | and [place] | + + + | Organization | [facility] | | | and [place] | + + + | Address | Unknown | + + + | Phone | Unavailable | + + + Support + + + + + | Name | Relationship | Address | Phone | + + + + + | Fabienne Juarez | ECON | [place] | | | | | [address] | | + + + + + Care Team Providers + +------+ + | Care Pie Crimping Machine Operator Name | Role | Phone | + +------+ + | Celestine Watters MD | PCP | | + +------+ + Reason for Visit + + + | Reason | Comments | + + + | Medication Problem | | + + + Encounter Details +--------+ + + + + | Date | Type | Department | Care Team | Description | +--------+ + + + + | 11/14/ | Telephone | [facility] | Miah Monique | Medication Problem | | 2019 | | [address] MD [address] | | | | | [address] [place], [place] | [address] | | | | | [address] | [place] [address] | | | | | [phone] | [phone] | | | | | | | [...]
--- OUTSIDE RECORDS SUMMARY | ~2019-07-24 | XMS | Encounter Summary ---
Demographics + + + | Address | [address] | | | [place] [address] | + + + | Home Phone | | + + + | Preferred Language | Unknown | + + + | Marital Status | | + + + | Mandaeism Affiliation | Unknown | + + + | Race | Unknown | + + + | Ethnic Group | Unknown | + + + Author + + + | Author | [facility] | | | and [place] | + + + | Organization | [facility] | | | and [place] | + + + | Address | Unknown | + + + | Phone | Unavailable | + + + Support + + + + + | Name | Relationship | Address | Phone | + + + + + | Fabienne Juarez | ECON | [place] | | | | | [address] | | + + + + + Care Team Providers + +------+ + | Care Voice Professor Name | Role | Phone | [...] | 11/23/ | Telephone | [facility] | Miah Monique | Medication Refill; | | 2018 | | [address] | MD [address]ric[address] | Medication Refill | | | | [place], [place] | [address] | | | | | [address] | [place] [address] | | | | | [phone] | [phone] | | | | | | | [...]
--- OUTSIDE RECORDS SUMMARY | ~2019-07-24 | XMS | Encounter Summary ---
Demographics + + + | Address | [address] | | | [place] [address] | + + + | Home Phone | | + + + | Preferred Language | Unknown | + + + | Marital Status | | + + + | Mosque Affiliation | Unknown | + + + | Race | Unknown | + + + | Ethnic Group | Unknown | + + + Author + + + | Author | [facility] | | | and [place] | + + + | Organization | [facility] | | | and [place] | + + + | Address | Unknown | + + + | Phone | Unavailable | + + + Support + + + + + | Name | Relationship | Address | Phone | + + + + + | Fabienne Juarez | ECON | [place] | | | | | [address] | | + + + + + Care Team Providers + +------+ + | Care Caul Puller Name | Role | Phone | + +------+ + | No, Physician | PCP | Unavailable | + +------+ + Encounter Details +--------+ + + + + | Date | Type | Department | Care Team | Description | +--------+ + + + + | 10/18/ | Orders Only | [facility] | Miah Monique | | | 2018 | | [facility] | MD Fab [address] | | | | | [address]PER[address] | [address] [address] | | | | | [address] | [place] [address] | | | | | [place], [place] | [phone] | | | | | [address] | | | | | | [phone] | | | +--------+ + + + [...] this | | FLUID | e | 3:19 PM | | procedure are in the | | | | PDT | | results section. | + +--------+ + + + | CRYSTAL | Routin | 10/18/2018 | | Results for this | | IDENTIFICATION, BODY | e | 3:19 PM | | procedure are in the | | FLUID | | PDT | | results section. | + +--------+ + + + | CULTURE, BODY FLUID, | Routin | 10/18/2018 | | Results for this | | STERILE, SMEAR, | e | 3:19 PM | | procedure are in the | | WITH ANAEROBES | | PDT | | results section. | + +--------+ + + + documented in this encounter Results Crystal Identification, Body Fluid (10/18/2018 3:19 PM PDT) + + | Specimen | + + | | + + + + + | Narrative | Performed At | + + + | FLUID CRYSTALS NO CRYSTALS SEEN | EXTERNAL LAB | | Testing performed at [facility];[address] [place] [address];[place] [address] | | + + + + +---------+ + + | Performing | Address | City/State/Zipcode | Phone Number | | Organization | | | | + +---------+ + + | EXTERNAL LAB | | | | + +---------+ + + Culture, Body Fluid, Sterile, Smear, with Anaerobes (10/18/2018 3:19 PM PDT) + + | Specimen | + + | | + + + + + | Narrative | Performed At | + + + | Specimen Description SYNOVIAL FLUID GRAM STAIN | EXTERNAL LAB | | NO CELLS OR ORGANISMS SEEN | | | CULTURE NO GROWTH 4 DAYS | | + + + + +---------+ + + | Performing | Address | City/State/Zipcode | Phone Number | | Organization | | | | + +---------+ + + | EXTERNAL LAB | | | | + +---------+ + + Cell Count, Body Fluid (10/18/2018 3:19 PM PDT) + + | Specimen | + + | | + + + + + | Narrative | Performed At | + + + | FLUID TYPE SYNOVIAL FLUID COLOR | EXTERNAL LAB | | PINK APPEARANCE | | | CLOUDY RBC'S | | | [address]40 TOTAL NUCLEATED CELLS | | | 29 NEUTROPHILS | | | 83 LYMPHOCYTES | | | 14 EOSINOPHILS 3 | | | CELLS COUNTED 100 | | | Testing performed at [facility];[address] [place] [address];[place] [address] | | + + + + +---------+ + + | Performing | Address | City/State/Zipcode | Phone Number | | Organization | | | | + +---------+ + + | EXTERNAL LAB | | | | + +---------+ + + documented in this encounter Visit Diagnoses Not on filedocumented in this encounter"
--- OUTSIDE RECORDS SUMMARY | ~2019-07-24 | XMS | Encounter Summary ---
Demographics + + + | Address | [address] | | | [place] [address] | + + + | Home Phone | | + + + | Preferred Language | Unknown | + + + | Marital Status | | + + + | Restorationist Affiliation | Unknown | + + + | Race | Unknown | + + + | Ethnic Group | Unknown | + + + Author + + + | Author | [facility] | | | and [place] | + + + | Organization | [facility] | | | and [place] | + + + | Address | Unknown | + + + | Phone | Unavailable | + + + Support + + + + + | Name | Relationship | Address | Phone | + + + + + | Fabienne Juarez | ECON | [place] | | | | | [address] | | + + + + + Care Team Providers + +------+ + | Care Automation/Controls Manager Name | Role | Phone | + +------+ + | Celestine Watters MD | PCP | | + +------+ + Reason for Visit +--------+ + | Reason | Comments | +--------+ + | Other | Home Health | +--------+ + Encounter Details +--------+ + + + + | Date | Type | Department | Care Team | Description | +--------+ + + + + | 11/29/ | Telephone | [facility] | Miah Monique | Other (Home Health) | | 2019 | | [facility] [address] | MD [address] | | | | | [address] [place], [place] | [address] | | | | | [address] | [place] [address] | | | | | [phone] | [phone] | | | | | | | [...]
--- OUTSIDE RECORDS SUMMARY | ~2019-07-24 | XMS | Encounter Summary ---
Demographics + + + | Address | [address] | | | [place] [address] | + + + | Home Phone | | + + + | Preferred Language | Unknown | + + + | Marital Status | | + + + | Yarsani Affiliation | Unknown | + + + | Race | Unknown | + + + | Ethnic Group | Unknown | + + + Author + + + | Author | [facility] | | | and [place] | + + + | Organization | [facility] | | | and [place] | + + + | Address | Unknown | + + + | Phone | Unavailable | + + + Support + + + + + | Name | Relationship | Address | Phone | + + + + + | Fabienne Juarez | ECON | [place] | | | | | [address] | | + + + + + Care Team Providers + +------+ + | Care Financial Cost Analyst Name | Role | Phone | + +------+ + PCP | Unavailable | + +------+ + Encounter Details +--------+ + + + + | Date | Type | Department | Care Team | Description | +--------+ + + + + | 09/19/ | Hospital | [facility] | Conversion | | | 2019 | Encounter | [facility] [address] | Transaction, | | | | | [address] | Provider Unknown | | | | | [place] | [phone] | | | | | [address] | | | | | | [phone] | | | +--------+ + + + [...]
--- OUTSIDE RECORDS SUMMARY | ~2019-07-24 | XMS | Encounter Summary ---
Demographics + + + | Address | [address] | | | [place] [address] | + + + | Home Phone | | + + + | Preferred Language | Unknown | + + + | Marital Status | | + + + | Islam Affiliation | Unknown | + + + | Race | Unknown | + + + | Ethnic Group | Unknown | + + + Author + + + | Author | [facility] | | | and [place] | + + + | Organization | [facility] | | | and [place] | + + + | Address | Unknown | + + + | Phone | Unavailable | + + + Support + + + + + | Name | Relationship | Address | Phone | + + + + + | Fabienne Juarez | ECON | [place] | | | | | [address] | | + + + + + Care Team Providers + +------+ + | Care Perfumer Name | Role | Phone | + [...] [address] | | | | | [address] [place], [place] | [address] | | | | | [address] | [place] [address] | | | | | [phone] | [phone] | | | | | | | [...]
--- OUTSIDE RECORDS SUMMARY | ~2019-07-24 | XMS | Encounter Summary ---
Demographics + + + | Address | [address] | | | [place] [address] | + + + | Home Phone | | + + + | Preferred Language | Unknown | + + + | Marital Status | | + + + | Yazdanism Affiliation | Unknown | + + + | Race | Unknown | + + + | Ethnic Group | Unknown | + + + Author + + + | Author | [facility] | | | and [place] | + + + | Organization | [facility] | | | and [place] | + + + | Address | Unknown | + + + | Phone | Unavailable | + + + Support + + + + + | Name | Relationship | Address | Phone | + + + + + | Fabienne Juarez | ECON | [place] | | | | | [address] | | + + + + + Care Team Providers + +------+ + | Care Metal Trim Erector Name | Role | Phone | + [...] [address] | | | | | [address] [place], [place] | [address] | | | | | [address] | [place] [address] | | | | | [phone] | [phone] | | | | | | | [...]
--- OUTSIDE RECORDS SUMMARY | ~2019-07-24 | XMS | Encounter Summary ---
Demographics + + + | Address | [address] | | | [place] [address] | + + + | Home Phone | | + + + | Preferred Language | Unknown | + + + | Marital Status | | + + + | Yarsani Affiliation | Unknown | + + + | Race | Unknown | + + + | Ethnic Group | Unknown | + + + Author + + + | Author | [facility] | | | and [place] | + + + | Organization | [facility] | | | and [place] | + + + | Address | Unknown | + + + | Phone | Unavailable | + + + Support + + + + + | Name | Relationship | Address | Phone | + + + + + | Fabienne Juarez | ECON | [place] | | | | | [address] | | + + + + + Care Team Providers + +------+ + | Care Financial Administration Officer Name | Role | Phone | + [...] | 11/23/ | Telephone | [facility] | Miah Monique | Medication Refill; | | 2018 | | [address] | MD [address] | Medication Refill | | | | [place], [place] | [address] | | | | | [address] | [place] [address] | | | | | [phone] | [phone] | | | | | | | [...]
--- OUTSIDE RECORDS SUMMARY | ~2019-07-24 | XMS | Clinical Summary ---
Demographics + + + | Address | [address] | | | [place] [address] | + + + | Home Phone | | + + + | Preferred Language | Unknown | + + + | Marital Status | | + + + | Sikh Affiliation | Unknown | + + + | Race | Unknown | + + + | Ethnic Group | Unknown | + + + Author + + + | Author | [facility] | | | and [place] | + + + | Organization | [facility] | | | and [place] | + + + | Address | Unknown | + + + | Phone | Unavailable | + + + Support + + + + + | Name | Relationship | Address | Phone | + + + + + | Fabienne Juarez | ECON | [place] | | | | | [address] | | + + + + + Care Team Providers + +------+ + | Care Spindle Carver Name | Role | Phone | + [...] Overview: Added automatically from request for surgery [id number] | + + + + + | Mechanical instability of hip prosthesis | 09/11/2018 | + + + + + | Overview: Added automatically from request for surgery [id number] | + + Family History + + [...] /NA | | Miah Sanon MD at [facility] | | | | | | /[address] | | [facility] | | | | | | 603 [...] /NA | | Miah Sanon MD at [facility] | | | | | | /[address] | | [facility] | | | | | | 801 [...] /NA | | Miah Sanon MD at [facility] | | | | | | /[address] | | [facility] | | | | | | 07 | + +--------+--------+ +--------+--------+--------+ | Trident Ii Tritanium | | | STRYKERO | | 02/23/ | 709-04 | | Multihole Acetabular | | | JULIEN | | 2022 | -58F | | ShellImplanted: Qty: 1 on | | | ORTHOPEDICS | | | /NA | | 10/24/2018 by Eneida, | | | | | | /[id number] | | Miah Sanon MD at [facility] | | | | | | 601A | | [facility] | | | | | | | + +--------+--------+ +--------+--------+--------+ | Screw Hex Lp [id number] - | | Left: | JULIEN | | 07/05/ | 7030-6 | | SnaImplanted: Qty: 1 on | | Hip | MEDICAL - | | 2023 | 530 | | 10/24/2018 by Eneida, | | | STRY | | | /NA | | Miah Sanon MD at [facility] | | | | | | /[id number] | | [facility] | | | | | | | + +--------+--------+ +--------+--------+--------+ | Screw Hex Lp [id number] - | | Left: | JULIEN | | 08/12/ | 7030-6 | | SnaImplanted: Qty: 1 on | | Hip | MEDICAL - | | 2023 | 530 | | 10/24/2018 by Eneida, | | | STRY | | | /NA | | Miah Sanon MD at [facility] | | | | | | /[id number] | | [facility] | | | | | | | + +--------+--------+ +--------+--------+--------+ | Screw Hex Lp [id number] - | | Left: | JULIEN | | 05/15/ | 7030-6 | | SnaImplanted: Qty: 1 on | | Hip | MEDICAL - | | 2023 | 515 | | 10/24/2018 by Eneida, | | | STRY | | | /NA | | Miah Sanon MD at [facility] | | | | | | /[id number] | | [facility] | | | | | | | + +--------+--------+ +--------+--------+--------+ | Biolox Delta Ceram C-Taper | | Left: | Readlyn | | 02/14/ | 18-28- | | Femoral Head Implanted: Qty: | | Hip | Orthopaedic | | 2020 | 3 /NA | | 1 on 10/24/2018 by Eneida, | | | s | | | /[id number] | | Miah Sanon MD at [facility] | | | | | | 901 | | [facility] | | | | | | | [...] +---------+--------+ | MEDICAID [place] | MEDICA | [id number] | | [phone] | | Medica | | | ID [...] | 1971 | [phone] | [place] [address] | | | sreekanth | | | 9 (Home) | | + +--------+ +--------+ + + Advance Directives + + + + + | Type | Date Recorded | Patient | Explanation | | | | Stockroom Clerk | | + + + + + | Power of | | | | | Investigation Division Lieutenant | | | | + + + [...]
--- OUTSIDE RECORDS SUMMARY | ~2019-07-24 | XMS | Encounter Summary ---
Demographics + + + | Address | [address] | | | [place] [address] | + + + | Home Phone | | + + + | Preferred Language | Unknown | + + + | Marital Status | | + + + | Temple Affiliation | Unknown | + + + | Race | Unknown | + + + | Ethnic Group | Unknown | + + + Author + + + | Author | [facility] | | | and [place] | + + + | Organization | [facility] | | | and [place] | + + + | Address | Unknown | + + + | Phone | Unavailable | + + + Support + + + + + | Name | Relationship | Address | Phone | + + + + + | Fabienne Juarez | ECON | [place] | | | | | [address] | | + + + + + Care Team Providers + +------+ + | Care Production Cell Leader Name | Role | Phone | + [...] | | | | encounter | | [address] Phone: | | | | | ([facility]) | | [phone] | | | | | Mechanical | | Fax: | | | | | complication | | [phone] | | | | | of | | | | | | | prosthetic | | | | | | | knee | | | | | | | implant, | | | | | | | initial | | | | | | | encounter | | | | | | | ([facility]) | | | | | | | Procedures | | | | | | | [place] REVISE | | | | | | [...] + + | 10/24/ | Anesthesia | [facility] | Jt Thorpe MD | | | 2019 | Event [facility] | [address] | | | | | [address]PER[address] | [place] [address] | | | | | [address] | [phone] | | | | | [place], [place] | Griselda Brush, | | | | | [address] | HOT CAR CHARGER [address] [facility] | | | | | [phone] | [place] [address] | | | | | | [phone] | | | | | | | | +--------+ + + + + Anesthesia Record + + + + + | Procedure Name | Responsible | Anesthesia Start | Anesthesia Stop Time | | | Anesthesiologist | Time | | + + + + + | ARTHROPLASTY | Jt Thorpe MD | 10/24/18 1556 | 10/24/18 1178 | | REVISION TOTAL HIP | | [...] 9 | | for the spinal. The Orthopedic Technician Jolene is assisting | | | | [...] +----+---+ + + | | 1 | [place] | | | | 6 | 43-degrees [...] | Type: nasal; Size: 30; Position: | HOT CAR CHARGER | | | | Left; Trauma: none; [...] anesthesia | | | Provider requested procedure: [place] Indication: surgical | | | anesthesia Preprocedure [...]
--- OUTSIDE RECORDS SUMMARY | ~2019-07-24 | XMS | Encounter Summary ---
Demographics + + + | Address | [address] | | | [place] [address] | + + + | Home Phone | | + + + | Preferred Language | Unknown | + + + | Marital Status | | + + + | Restoration Affiliation | Unknown | + + + | Race | Unknown | + + + | Ethnic Group | Unknown | + + + Author + + + | Author | [facility] | | | and [place] | + + + | Organization | [facility] | | | and [place] | + + + | Address | Unknown | + + + | Phone | Unavailable | + + + Support + + + + + | Name | Relationship | Address | Phone | + + + + + | Fabienne Juarez | ECON | [place] | | | | | [address] | | + + + + + Care Team Providers + +------+ + | Care Head Control Clerk Name | Role | Phone | [...] + + | 11/14/ | Telephone | [facility] | Miah Monique | Medication Problem | | 2019 | | [address] MD [address] | | | | | [address] [place], [place] | [address] | | | | | [address] | [place] [address] | | | | | [phone] | [phone] | | | | | | | [...]
--- OUTSIDE RECORDS SUMMARY | ~2019-07-24 | XMS | Encounter Summary ---
Demographics + + + | Address | [address] | | | [place] [address] | + + + | Home Phone | | + + + | Preferred Language | Unknown | + + + | Marital Status | | + + + | Gnosticist Affiliation | Unknown | + + + | Race | Unknown | + + + | Ethnic Group | Unknown | + + + Author + + + | Author | [facility] | | | and [place] | + + + | Organization | [facility] | | | and [place] | + + + | Address | Unknown | + + + | Phone | Unavailable | + + + Support + + + + + | Name | Relationship | Address | Phone | + + + + + | Fabienne Juarez | ECON | [place] | | | | | [address] | | + + + + + Care Team Providers + +------+ + | Care Appraiser Name | Role | Phone | + +------+ + | Celestine Watters MD | PCP | | + +------+ + Encounter Details +--------+ + + + + | Date | Type | Department | Care Team | Description | +--------+ + + + + | 09/11/ | Orders Only | [facility] | Conversion | | | 2019 | | CONVERSION DEP [address] | Transaction, | | | | | [address] | Provider Unknown | | | | | [place] | [phone] | | | | | [address] | | | | | | [phone] | | | +--------+ + + + [...]
--- OUTSIDE RECORDS SUMMARY | ~2019-07-24 | XMS | Encounter Summary ---
Demographics + + + | Address | [address] | | | [place] [address] | + + + | Home Phone | | + + + | Preferred Language | Unknown | + + + | Marital Status | | + + + | Scientologist Affiliation | Unknown | + + + | Race | Unknown | + + + | Ethnic Group | Unknown | + + + Author + + + | Author | [facility] | | | and [place] | + + + | Organization | [facility] | | | and [place] | + + + | Address | Unknown | + + + | Phone | Unavailable | + + + Support + + + + + | Name | Relationship | Address | Phone | + + + + + | Fabienne Juarez | ECON | [place] | | | | | [address] | | + + + + + Care Team Providers + +------+ + | Care Instrumentation Engineer Name | Role | Phone | + [...] JACKELYN | | | | | [place] | [address] | | | | | [address] | [place] [address] | | | | | [phone] | [phone] | | | | | | | [...]
--- OUTSIDE RECORDS SUMMARY | ~2019-07-24 | XMS | Encounter Summary ---
Demographics + + + | Address | [address] | | | [place] [address] | + + + | Home Phone [...] Author | [facility] | | | and [place] | + + + | Organization | [facility] | | | and [place] | + + + | Address | Unknown | + + + | Phone | Unavailable | + + + Support + + + + + | Name | Relationship | Address | Phone | + + + + + | Fabienne Juarez | ECON | [place] | | | | | [address] | | + + + + + Care Team Providers + +------+ + | Care Mold Maker Plastic Molds Name | Role | Phone | + +------+ + | No, Physician | PCP | Unavailable | + +------+ + Encounter Details +--------+ + + + + | Date | Type | Department | Care Team | Description | +--------+ + + + + | 10/20/ | Orders Only | [facility] | Miah Monique | Pain due to internal | | 2018 | | [address] [address] | orthopedic | | | | [address] | [address] | prosthetic devices, | | | | [address] | [place] [address] | implants and grafts, | | | | [phone] | [phone] | initial encounter | | | | | | ([facility]) | +--------+ + + + + Social [...] of this encounter Plan of Treatment + + +--------+ + + | Name | Type | Priori | Associated Diagnoses | Order Schedule | | | | ty | | | + + +--------+ + + | Culture, Body Fluid | Microbiolog | Routin | Pain due to | Expected: | | Sterile | y | e | internal orthopedic | 10/17/2018, Expires: | | | | | prosthetic devices, | 10/18/2019 | | | | | implants and grafts, | | | | | | initial encounter | | | | | | (HCC) | | + + +--------+ + + | Body fluid cell | Lab | Routin | Pain due to | Expected: | | count | | e | internal orthopedic | 10/17/2018, Expires: | | | | | prosthetic devices, | 10/18/2019 | | | | | implants and grafts, | | | | | | initial encounter | | | | | | (HCC) | | + + +--------+ + + | Crystal | Lab | Routin | Pain due to | Expected: | | Identification, Body | | e | internal orthopedic | 10/17/2018, Expires: | | Fluid | | | prosthetic devices, | 10/18/2019 | | | | | implants and grafts, | | | | | | initial encounter | | | | | | (HCC) | | + + +--------+ + + documented as of this encounter Visit Diagnoses + + | Diagnosis | + + | Pain due to internal orthopedic prosthetic devices, implants and grafts, initial | | encounter (HCC) | + + documented in this encounter"
--- OUTSIDE RECORDS SUMMARY | ~2019-07-24 | XMS | Encounter Summary ---
Demographics + + + | Address | [address] | | | [place] [address] | + + + | Home Phone | | + + + | Preferred Language | Unknown | + + + | Marital Status | | + + + | Sabianist Affiliation | Unknown | + + + | Race | Unknown | + + + | Ethnic Group | Unknown | + + + Author + + + | Author | [facility] | | | and [place] | + + + | Organization | [facility] | | | and [place] | + + + | Address | Unknown | + + + | Phone | Unavailable | + + + Support + + + + + | Name | Relationship | Address | Phone | + + + + + | Fabienne Juarez | ECON | [place] | | | | | [address] | | + + + + + Care Team Providers + +------+ + | Care Sr. Logistics Analyst Name | Role | Phone | [...] | | | | encounter | | [address] Phone: | | | | | ([facility]) | | [phone] | | | | | Mechanical | | Fax: | | | | | complication | | [phone] | | | | | of | | | | | | | prosthetic | | | | | | | knee | | | | | | | implant, | | | | | | | initial | | | | | | | encounter | | | | | | | ([facility]) | | | | | | | Procedures | | | | | | | MS REVISE | | | | | | [...] + + | 10/24/ | Anesthesia | [facility] | Jt Thorpe MD | | | 2019 | Event [facility] | [address] | | | | | [address]PER[address] | [place] [id number] | | | | | [address] | [phone] | | | | | [place], [place] | Griselda Brush, | | | | | [phone] | SLAT BASKET MAKER MACHINE [address] [facility] | | | | | [phone] | [place] [address] | | | | | | [phone] | | | | | | | | +--------+ + + + + Anesthesia Record + + + + + | Procedure Name | Responsible | Anesthesia Start | Anesthesia Stop Time | | | Anesthesiologist | Time | | + + + + + | ARTHROPLASTY | Jt Thorpe MD | 10/24/18 1556 | 10/24/18 6048 | | REVISION TOTAL HIP | | [...] 9 | | for the spinal. The Foreign Trade Teacher Jolene is assisting | | | | [...] +----+---+ + + | | 1 | [place] | | | | 6 | 43-degrees [...] | Type: nasal; Size: 30; Position: | SLAT BASKET MAKER MACHINE | | | | Left; Trauma: none; [...] anesthesia | | | Provider requested procedure: [place] Indication: surgical | | | anesthesia Preprocedure [...]
--- OUTSIDE RECORDS SUMMARY | ~2019-07-24 | XMS | Encounter Summary ---
Demographics + + + | Address | [address] | | | [place] [address] | + + + | Home Phone [...] + + | Author | [facility] | | | and Sil[place]re[place] | + + + | Organization | [facility] | | | and [place] | + + + | Address | Unknown | + + + | Phone | Unavailable | + + + Support + + + + + | Name | Relationship | Address | Phone | + + + + + | Fabienne Juarez | ECON | [place] | | | | | [address] | | + + + + + Care Team Providers + +------+ + | Care Pharmacy Cashier Name | Role | Phone | + [...] | | | | Diagnoses | | Arturo, | | | | | Pain in | | Miah Sanon MD | | | | | prosthetic | | [address] | | | | | joint, | | [address] | | | | | initial | | [place] | | | | | encounter | | [address] Phone: | | | | | ([facility]) | | [phone] | | | | | Mechanical | | Fax: | | | | | complication | | [phone] | | | | | of | | | | | | | prosthetic | | | | | | | knee | | | | | | | implant, | | | | | | | initial | | | | | | | encounter | | | | | | | ([facility]) | | | | | | | Procedures | | | | | | | [place] REVISE | | | | | | [...] + + | 10/24/ | Surgery | [facility] | Miah Monique | ARTHROPLASTY | | 2018 | | [facility] | MD [address] | REVISION TOTAL HIP | | | | OPERATING ROOM [address] | [address] | | | | | [address] | [place] [address] | | | | | [place], [place] | [phone] | | | | | [address] | | | | | | [phone] | | | +--------+---------+ + + + [...] underwent a left total hip arthroplasty rev [facility], comprising of an acetabular component [...] and psychiatry was consulted. He r psychiatry [employer]AD was also contacted and she was restarted [...] room air #Depression/anxiety/PTSD: -11/03/18 [facility]iscuss[facility] [phone]. She has a diagnosis of PTSD and [...] TOTAL HIP; Surgeon: Miah Monique MD; Location: [facility] MAIN OR TOTAL HIP ARTHROPLASTY Left 2014 [...] * No resolved hospital problems. * Disposition: snf Condition: Fair Code Status: Full Code Follow up: Miah Monique MD [address] [place] [address] [id number] In 4 weeks For wound re-check and [...] Miah Monique MD 11/09/2018 documented in this encounter Discharge [...] ASA oral tablets Brand Names: Aspirtab, Aspir-Giulia, [employer] Advanced Aspirin, Alejandra Aspirin, Alejandra Aspirin Ext [...] more often than directed. Talk to your production control planner regarding the use of this medicine in [...] should report to your doctor or health urgent care nurse practitioner as soon as p ossible: allergic reactions [...] attention (report to your doctor or health urgent care nurse practitioner if they continue or are bothersome): diarrhea [...] for pain, tell your doctor or health urgent care nurse practitioner if the pain lasts more than 10 [...] if prescribed by your doctor or health urgent care nurse practitioner. Do not take aspirin or aspirin-like medicines [...] ou have any questions. Talk to your production control planner regarding the use of this medicine in children. Special care may be needed. What side effects may I notice from receiving this medicine? Side effects that you should report to your doctor or health urgent care nurse practitioner as soon as p ossible: allergic reactions [...] attention (report to your doctor or health urgent care nurse practitioner if they continue or are bothersome): cough [...] this medicine? Tell your doctor or health urgent care nurse practitioner if your symptoms do not improve. Do [...] pharmacist, or health care provider. Copyright 2019 [employer] Albuterol; Ipratropium solution for inhalation Brand Name: [...] more often than directed. Talk to your production control planner regarding the use of this medicine in children. Special care may be needed. What side effects may I notice from receiving this medicine? Side effects that you should report to your doctor or health urgent care nurse practitioner as soon as p ossible: allergic reactions [...] attention (report to your doctor or health urgent care nurse practitioner if they continue or are bothersome): blurred [...] pharmacist, or health care provider. Copyright 2019 [employer] Celecoxib capsules Brand Name: Celebrex What is [...] information carefully each time. Talk to your production control planner regarding the use of this medicine in children. Special care may be needed. What side effects may I notice from receiving this medicine? Side effects that you should report to your doctor or health urgent care nurse practitioner as soon as p ossible: allergic reactions [...] attention (report to your doctor or health urgent care nurse practitioner if they continue or are bothersome): constipation [...] this medicine? Tell your doctor or health urgent care nurse practitioner if your pain does not get better. [...] roke, talk with your doctor or health urgent care nurse practitioner. Do not take medicines such as ibuprofen [...] not take at bedtime. Talk to your production control planner regarding the use of this medicine in children. While this drug m ay be prescribed for selected conditions, precautions do apply. What side effects may I notice from receiving this medicine? Side effects that you should report to your doctor or health urgent care nurse practitioner as soon as p ossible: blood in [...] attention (report to your doctor or health urgent care nurse practitioner if they continue or are bothersome): headache [...] this medicine? Visit your doctor or health urgent care nurse practitioner for regular checks on your progress. Check yo ur blood pressure regularly. Ask your doctor or health urgent care nurse practitioner what your blood pre ssure should be, [...] information carefully each time. Talk to your production control planner regarding the use of this medicine in children. Special care may be needed. What side effects may I notice from receiving this medicine? Side effects that you should report to your doctor or health urgent care nurse practitioner as soon as p ossible: allergic reactions like skin rash, itching or hives, swelling of the face, lips, or tong ue worsening of mood, thoughts or actions of suicide or dying Side effects that usually do not require medical attention (report to your doctor or health urgent care nurse practitioner if they continue or are bothersome): constipation [...] this medicine? Visit your doctor or health urgent care nurse practitioner for regular checks on your progress. You may want to keep a record at home of how you feel your condition is responding to treatment. You may want to share this information with your doctor or health urgent care nurse practitioner at each vis it. You should contact your doctor or health urgent care nurse practitioner if your seizures get worse or if you have any new types of seizures. Do not stop taking this medicine or any of your seiz ure medicines unless instructed by your doctor or health urgent care nurse practitioner. Stopping your me dicine suddenly can increase [...] dying should be reported to your health urgent care nurse practitioner right away. Women who become while using this medicine may enroll in the [place] [employer] Registry by calling . [...] information carefully each time. Talk to your production control planner regarding the use of this medicine in children. Special care may be needed. What side effects may I notice from receiving this medicine? Side effects that you should report to your doctor or health urgent care nurse practitioner as soon as p ossible: allergic reactions [...] attention (report to your doctor or health urgent care nurse practitioner if they continue or are bothersome): constipation [...] to an official disposal site. Contact the [facility] at [phone] or your [facility] to find a site. If you [...] this medicine? Tell your doctor or health urgent care nurse practitioner if your pain does not go away, [...] pharmacist, or health care provider. Copyright 2019 [employer] Nicotine skin patches Brand Names: Habitrol, Nicoderm [...] the same area again. Talk to your production control planner regarding the use of this medicine in children. Special care may be needed. What side effects may I notice from receiving this medicine? Side effects that you should report to your doctor or health urgent care nurse practitioner as soon as p ossible: allergic reactions [...] attention (report to your doctor or health urgent care nurse practitioner if they continue or are bothersome): diarrhea [...] only last for a few days. Call [facility] doctor or health urgent care nurse practitioner if skin redness does not go away after 4 days, if your skin swells, or if you get a rash. If you are a diabetic and you quit smoking, the effects of insulin may be increased and you may need to reduce your insulin dose. Check with your doctor or health urgent care nurse practitioner ab out how you should adjust your [...] pharmacist, or health care provider. Copyright 2019 [employer] Olanzapine tablets Brand Name: Zyprexa What is [...] information carefully each time. Talk to your production control planner regarding the use of this medicine in children. While this drug m ay be prescribed for children as young as 13 years for selected conditions, precautions do a pply. What side effects may I notice from receiving this medicine? Side effects that you should report to your doctor or health urgent care nurse practitioner as soon as p ossible: allergic reactions [...] attention (report to your doctor or health urgent care nurse practitioner if they continue or are bothersome): changes [...] this medicine? Visit your doctor or health urgent care nurse practitioner for regular checks on your progress. It may b e several weeks before you see the full effects of this medicine. Notify your doctor or heal th urgent care nurse practitioner if your symptoms get worse, if you have new symptoms, if you are having an unusual effect from this medicine, or if you feel out of control, very discouraged or th ink you might harm yourself or others. Do not suddenly stop taking this medicine. You may need to gradually reduce the dose. Ask y our doctor or health urgent care nurse practitioner for advice. You may get dizzy or [...] allergies without asking your doctor or health urgent care nurse practitioner for advice. Some ingredients can increase possible side effects. Your mouth may get dry. Chewing sugarless gum or sucking hard candy, and drinking plenty of water will help. This medicine can reduce the response of your body to heat or cold. Dress phlebotomy coordinator cold weat her and stay hydrated in [...] information carefully each time. Talk to your production control planner regarding the use of this medicine in children. Special care may be needed. What side effects may I notice from receiving this medicine? Side effects that you should report to your doctor or health urgent care nurse practitioner as soon as p ossible: allergic reactions [...] attention (report to your doctor or health urgent care nurse practitioner if they continue or are bothersome): constipation [...] to an official disposal site. Contact the [facility] at [phone] or your [facility] to find a site. If you cannot return the medicine, flush it down the toilet. Do not use the medicine after the expiration date. What should I tell my health care provider before I take this medicine? They need to know if you have any of these conditions: [place]ar[place]'s disease brain tumor head injury heart disease [...] this medicine? Tell your doctor or health urgent care nurse practitioner if your pain does not go away, [...] pharmacist, or health care provider. Copyright 2019 [employer] Prednisone tablets Brand Names: Deltasone, Predone, Sterapred, [...] avoid any side effects. Talk to your production control planner regarding the use of this medicine in children. Special care may be needed. What side effects may I notice from receiving this medicine? Side effects that you should report to your doctor or health urgent care nurse practitioner as soon as p ossible: allergic reactions [...] attention (report to your doctor or health urgent care nurse practitioner if they continue or are bothersome): confusion, [...] ta lk to your doctor or health urgent care nurse practitioner. You may need to miss a dose [...] if you have any of these conditions: Tuttle's syndrome diabetes glaucoma heart disease high blood [...] this medicine? Visit your doctor or health urgent care nurse practitioner for regular checks on your progress. If [...] have surgery, tell your doctor or health urgent care nurse practitioner that you hav e taken this medicine within the last twelve months. Ask your doctor or health urgent care nurse practitioner about your diet. You may need to lower the amou nt of salt you eat. This medicine may affect blood sugar levels. If you have diabetes, check with your doctor o r health urgent care nurse practitioner before you change your diet or the [...] e often than directed. Talk to your production control planner regarding the use of this medicine in children. While this medici ne may be prescribed for children as young as 2 years for selected conditions, precautions d o apply. What side effects may I notice from receiving this medicine? Side effects that you should report to your doctor or health urgent care nurse practitioner as soon as p ossible: diarrhea muscle weakness nausea, vomiting unusual weight loss Side effects that usually do not require medical attention (report to your doctor or health urgent care nurse practitioner if they continue or are bothersome): bloating [...] returning, check with yo doctor or health urgent care nurse practitioner. NOTE:This sheet is a summary. It may not cover all possible information. If you have questi ons about this medicine, talk to your doctor, pharmacist, or health care provider. Copyright 2019 [employer] Tramadol tablets Brand Name: Ultram What is [...] information carefully each time. Talk to your production control planner regarding the use of this medicine in children. Special care may be needed. What side effects may I notice from receiving this medicine? Side effects that you should report to your doctor or health urgent care nurse practitioner as soon as p ossible: allergic reactions [...] attention (report to your doctor or health urgent care nurse practitioner if they continue or are bothersome): constipation [...] this medicine? Tell your doctor or health urgent care nurse practitioner if your pain does not go away, [...] 3 days, call your doctor or health urgent care nurse practitioner. Your mouth may get dry. Chewing sugarless [...] attachments cannot be sent through Care Everywhere.Sepsis (Turkish )Sepsis, Understanding (Turkish)documented in this encounter Medications at Time of [...] arpal Fine MD - 2:29 PM PDT [facility] Service: Hospitalist Progress Note Pt: Sylvie [...] over2 weeks #Depression/anxiety/PTSD: -11/03/18 Discussed patient with [facility] [phone]. She has a diagnosis of PTSD and [...] MD - 0 11/08/2018 12:00 PM PDT [facility] Service: Hospitalist Progress Note Pt: Sylvie [...] encounter as of 11/08/18-12:01 IMAGING: Reviewed in [facility], no new results. PROBLEM LIST Principal [...] as able #Depression/anxiety/PTSD: -11/03/18 Discussed patient with [facility] [phone]. She has a diagnosis of PTSD and major depressive disorder with psychotic symptoms. She last saw her mental health nurse practitioner Pamela Romeor on September 12. The medications that she [...] M D - 11/07/2018 2:04 PM PDT [facility] Service: Hospitalist Progress Note Hospital Day: [...] and psychiat ry was consulted. Her psychiatry [employer] LEAD was also contacted and she was restarted [...] 11/07/18 0411 PROCALCITONI 0.10 Imaging: Reviewed in [facility], no new results. PROBLEM LIST Principal [...] as tolerated #Depression/anxiety/PTSD: -11/03/18 Discussed patient with [facility] [phone]. She has a diagnosis of PTSD and [...] Chambers MD - 11/07/2018 8:06 AM PDT [facility] Service: PULMONOLOGY Progress Note Date of Admission: [...] TOTAL HIP; Surgeon: Miah Monique MD; Location: [facility] MAIN OR TOTAL HIP ARTHROPLASTY Left 2014 [...] might be different from the o javed. [facility] Service: Orthopedic Surgery Progress Note Hospital [...] MIGDALIA Thompson has created this entry using [employer] and [employer] macros. The entry has been reviewed and there may still exist sound alike word errors. Kush Miller MD - 11/06/2018 8:02 AM PDT [facility] Service: Hospitalist Progress Note Pt: Sylvie [...] agitaitation and psychiatry was consulted. Her psychiatry FO[employer] AND BEVERAGE LEAD was also contacted and she was restarted [...] hours. No results for input(s): PHART, PO2ART, VAR2JYM, J8SOCLLG, BEART in the last 168 hours. No results for input(s): APTT, INR, PTT in the last 168 hours. No results for input(s): TSH in the last 168 hours. Invalid input(s): T3FREE, FREET4 No results for input(s): TROPONINT in the last 168 hours. Invalid input(s): CKTOTAL, TROPONINI, CKMBINDEX Microbiology Results (72 hrs) Procedure Component Value Units Date/Time Culture, Respiratory, Lower, Smear [[id number]] Collected: 10/29/181728 Order Status: Completed Lab Status: [...] HELD 48 HOURS. RESULT Testing performed at [facility], [address] [place] [address] Comment: Testing performed at [facility], [address] [place] [address] RADIOLOGY: Recent Results (from the past 360 [...] study. Depression/anxiety/ptsd - 11/03/18 Discussed patient with [facility] [phone]. She has a diagnosis o f PTSD [...] and managing patient and counseling/coordination. Dictation software, [employer], used which may contain error for similar sounding words even af ter review. Personal communication requested for any clarification. Portions of this chart may have been copied from previous notes for continuity of care purp ose Terri Osullivan RN - 11/05/2018 6:19 PM PDTEnd of shift review complete. Donovan Loja PA - 11/05/2018 10:52 AM PDT [facility] Service: Orthopedic Surgery Progress Note Hospital [...] MIGDALIA Thompson has created this entry using [employer] and [employer] macros. The entry has been reviewed and there may still exist sound alike word errors. Kush Miller MD - 11/05/2018 9:44 AM PDT [facility] Service: Hospitalist Progress Note Pt: Sylvie [...] agitaitation and psychiatry was consulted. Her psychiatry FOOD AND BEVERAGE LEAD was also contacted and she was restarted [...] hours. No results for input(s): PHART, PO2ART, NIF7GMO, J7RJWIGN, BEART in the last 168 hours. No results for input(s): APTT, INR, PTT in the last 168 hours. No results for input(s): TSH in the last 168 hours. Invalid input(s): T3FREE, FREET4 No results for input(s): TROPONINT in the last 168 hours. Invalid input(s): CKTOTAL, TROPONINI, CKMBINDEX Microbiology Results (72 hrs) Procedure Component Value Units Date/Time Culture, Respiratory, Lower, Smear [[id number]] Collected: 10/29/181728 Order Status: Completed Lab Status: [...] HELD 48 HOURS. RESULT Testing performed at [facility], [address] [place] [address] Comment: Testing performed at [facility], [address] [place] [address] RADIOLOGY: Recent Results (from the past 360 [...] possible Morbid obesity - likely has underlying ALDIAR - continue with bipap for now. Needs outpatient sleep study. Depression/anxiety/ptsd - 11/03/18 Discussed patient with [facility] [phone]. She has a diagnosis o f PTSD [...] and managing patient and counseling/coordination. Dictation software, [employer], used which may contain error for similar [...] signing off. Please call with any questions/concerns. [phone]. Shanice Rahman RN P DTStump, Lala Pennington [...] thanks for coming by." Lyric e xplained orthopedic physical therapist availability days & nights if needed. Pt thanked elvia. Chaplain David Greeney Donovan Belle PA - 11/04/2018 1:02 PM PDT [facility] Service: Orthopedic Surgery Progress Note Hospital [...] MIGDALIA Thompson has created this entry using [employer] and [employer] macros. The entry has been reviewed and there may still exist sound alike word errors. Kush Miller MD - 11/04/2018 11:50 AM PDT [facility] Service: Hospitalist Progress Note Pt: Sylvie [...] hours. No results for input(s): PHART, PO2ART, SRP8KOQ, K5CBNMZQ, BEART in the last 168 hours. No results for input(s): APTT, INR, PTT in the last 168 hours. No results for input(s): TSH in the last 168 hours. Invalid input(s): T3FREE, FREET4 No results for input(s): TROPONINT in the last 168 hours. Invalid input(s): CKTOTAL, TROPONINI, CKMBINDEX Microbiology Results (72 hrs) Procedure Component Value Units Date/Time Culture, Respiratory, Lower, Smear [[id number]] Collected: 10/29/181728 Order Status: Completed Lab Status: [...] HELD 48 HOURS. RESULT Testing performed at [facility], [address] [place] [address] Comment: Testing performed at [facility], [address] [place] [id number] RADIOLOGY: Recent Results (from the past 360 [...] study. Depression/anxiety/ptsd - 11/03/18 Discussed patient with [facility] [phone]. She has a diagnosis o f PTSD [...] and managing patient and counseling/coordination. Dictation software, [employer], used which may contain error for similar [...] to have regu lar p.o. Intake. Per volleyball assembler note oxygenation is improving. 1. Pain in prosthetic joint, initial encounter ([facility]) 2. Mechanical complication of prosthetic knee implant, initial encounter ([facility]) 3. Mechanical instability of hip prosthesis ([facility]) 4. Shortness of breath 5. Acute respiratory failure with hypoxia ([facility]) Past Medical History: Diagnosis Date Anxiety Anxious depression Arthralgia Arthritis Asthma not using inhalers DDD (degenerative disc disease), lumbar Deliberate self-cutting history of Depression Heartburn Hemorrhage of gastrointestinal tract 2015 upper and lower due ulcers Morbid obesity with BMI of 50.0-59.9, adult ([facility]) Pain in prosthetic joint ([facility]) with instability Panic attacks states [...] doing mobility exercises. Security, risk, pcc, stepdown manager subway, primary md, and lead rn present with bedside rn. Pt crying and yelling that she doesn't want to "be here". Per elvia finley disruptive/violent pt paperwork filled out. Situation and pt expectations reviewed by risk and manager subway with pt. Sitter at bedside currently. Ever [...] the room, [facility] Dada mares called by greenhouse staff. pt. also stated during session everything we [...] might be different f rom the original. [facility] Service: Hospitalist Progress Note Pt: Sylvie Ramsey AGE/SEX: 48 y.o. female ROOM: [address] [place] [address] : 1970 PCP: No Physician on file [...] hours. No results for input(s): PHART, PO2ART, KCD1OTJ, L4PAQXLX, BEART in the last 168 hours. No results for input(s): APTT, INR, PTT in the last 168 hours. No results for input(s): TSH, T3FREE in the last 168 hours. Invalid input(s): FREET4 No results for input(s): TROPONINT in the last 168 hours. Invalid input(s): CKTOTAL, TROPONINI, CKMBINDEX Microbiology Results (72 hrs) Procedure Component Value Units Date/Time Culture, Respiratory, Lower, Smear [[id number]] Collected: 10/29/181728 Order Status: Completed Lab Status: [...] HELD 48 HOURS. RESULT Testing performed at [facility], [address] [place] [id number] Comment: Testing performed at [facility], [address] [place] [address] RADIOLOGY: Recent Results (from the past 360 [...] sleep study. Depression/anxiety/ptsd - Discussed patient [facility] [phone]. She has a diagnosis of PTSD a [...] making capacity - consulted psychiatry. Appreciate recs. retail client manager to attempt to obtain more information [...] and managing patient and counseling/coordination. Dictation software, [employer], used which may contain error for similar [...] morning after finding out she was not jeffry dy for discharge today. She stated that we have done wrong things to her and that we have no t provided good care. She demanded to be transfer to a hospital in [facility], or that she was going to call the police and maxim the hospital. , lead nurse, bilingual patient support caseworker and risk not ified. Pt remained calmed [...] time and continue to be managed by volleyball assembler and hospitalist . No new orthopedics events 1. Pain in prosthetic joint, initial encounter (HCC) 2. Mechanical complication of prosthetic knee implant, initial encounter (HCC) 3. Mechanical instability of hip prosthesis (HCC) 4. Shortness of breath 5. Acute respiratory failure with hypoxia ([facility]) Past Medical History: Diagnosis Date [...] weightbearing Continue DVT prophylaxis Continue hospitalist and volleyball assembler management for comorbidities plan will be to eventua lly go to rehab or SNF once cleared by specialist Emilio Moreno 11/02/2018 Moses Solorzano, PT - 11/02/2018 12:59 PM PDT 11/02/18 1259 PT Visit Summary PT Visit Type Missed Visit (patient unavailable) (Tele psych consult in progress) Next Visit Information 11/02, LTHA, 2PA Kush Miller MD - 11/02/2018 7:44 AM PDT [facility] Service: Hospitalist Progress Note Pt: Sylvie [...] hours. No results for input(s): PHART, PO2ART, IXI4DXC, [id number], BEART in the last 168 hours. No results for input(s): APTT, INR, PTT in the last 168 hours. No results for input(s): TSH, T3FREE in the last 168 hours. Invalid input(s): FREET4 No results for input(s): TROPONINT in the last 168 hours. Invalid input(s): CKTOTAL, TROPONINI, CKMBINDEX Microbiology Results (72 hrs) Procedure Component Value Units Date/Time Culture, Respiratory, Lower, Smear [[id number]] Collected: 10/29/181728 Order Status: Completed Lab Status: [...] HELD 48 HOURS. RESULT Testing performed at [facility], [address] [place] [address] Comment: Testing performed at [facility], [address] [place] [address] RADIOLOGY: Recent Results (from the past 360 [...] making capacity - consulted psychiatry. Appreciate recs. retail client manager to attempt to obtain more information [...] and managing patient and counseling/coordination. Dictation software, [employer], used which may contain error for similar [...] continues to be managed by hospitalist and volleyball assembler and is currently on BiPAP 1. Pain in prosthetic joint, initial encounter ([facility]) 2. Mechanical complication of prosthetic knee implant, initial encounter ([facility]) 3. Mechanical instability of hip prosthesis ([facility]) 4. Shortness of breath 5. Acute respiratory failure with hypoxia ([facility]) Past Medical History: Diagnosis Date [...] Miller MD - 11/01/2018 7:36 AM PDT [facility] Service: Hospitalist Progress Note Pt: Sylvie Ramsey AGE/SEX: 48 y.o. female ROOM: [facility]9119-01 : 1970 PCP: No Physician on [...] hours. No results for input(s): PHART, PO2ART, FDL8HKF, H5LRHDXL, BEART in the last 168 hours. No results for input(s): APTT, INR, PTT in the last 168 hours. No results for input(s): TSH, T3FREE in the last 168 hours. Invalid input(s): FREET4 No results for input(s): TROPONINT in the last 168 hours. Invalid input(s): CKTOTAL, TROPONINI, CKMBINDEX Microbiology Results (72 hrs) Procedure Component Value Units Date/Time Culture, Respiratory, Lower, Smear [[id number]] Collected: 10/29/181728 Order Status: Completed Lab Status: [...] HELD 48 HOURS. RESULT Testing performed at [facility], [address] [place] [address] Comment: Testing performed at [facility], [address] [place] [address] RADIOLOGY: Recent Results (from the past 360 [...] and managing patient and counseling/coordination. Dictation software, [employer], used which may contain error for similar [...] this time. Education and reminders given for [facility] ed for maximal lung expansion. Becomes dyspneic [...] in prosthetic joint, initial encounter ([facility]) 2. Mechanical complication of prosthetic knee implant, initial encounter ([facility]) 3. Mechanical instability of hip prosthesis ([facility]) 4. Shortness of breath 5. Acute respiratory failure with hypoxia ([facility]) Past Medical History: Diagnosis Date Anxiety Anxious depression Arthralgia Arthritis Asthma not using inhalers DDD (degenerative disc disease), lumbar Deliberate self-cutting history of Depression Heartburn Hemorrhage of gastrointestinal tract 2015 upper and lower due ulcers Morbid obesity with BMI of 50.0-59.9, adult ([facility]) Pain in prosthetic joint (HCC) [...] PRN Fab Vickers 2 puff at 10/27/18 0573 albuterol-ipratropium 2.5-0.5 mg/3 mL nebulizer solution 3 [...] Miller MD - 10/31/2018 8:07 AM PDT [facility] Service: Hospitalist Progress Note Pt: Sylvie [...] hours. No results for input(s): PHART, PO2ART, WPN1VUF, R6GWDVUJ, BEART in the last 168 hours. No results for input(s): APTT, INR, PTT in the last 168 hours. No results for input(s): TSH, T3FREE in the last 168 hours. Invalid input(s): FREET4 No results for input(s): TROPONINT in the last 168 hours. Invalid input(s): CKTOTAL, TROPONINI, CKMBINDEX Microbiology Results (72 hrs) Procedure Component Value Units Date/Time Culture, Respiratory, Lower, Smear [[id number]] Collected: 10/29/181728 Order Status: Completed Lab Status: [...] HELD 48 HOURS. RESULT Testing performed at [facility], [address] [place] [address] Comment: Testing performed at [facility], [address] [place] [address] RADIOLOGY: Recent Results (from the past 360 [...] and managing patient and counseling/coordination. Dictation software, [employer], used which may contain error for similar [...] prosthetic knee implant, initial encounter ([facility]) 3. Mechanical instability of hip [...] injection 40 mg 40 mg Intravenous BID uYki Pruett MD 40 mg at 10/30/18 0803 [...] might be different from the origin al. [facility] Service: Hospitalist Progress Note Hospital Day: [...] for input(s): IRON, TIBC, PCTSAT, FERRITIN, TSH, [id number], FOLATE in the last 168 hours. Recent [...] continue nicotine patch. Deconditioning. Physical therapy recommended intermediate facility when stable. Plan discussed with patient. All questions were answered . All data was reviewed. Disposition: Inpatient Code Status: Full Code Yuki Pruett MD 10/30/2018 8:02 This entry has been created using [employer] Speech Recognition software and [employer]. The entry has been reviewed and there may still exist sound alike word errors. Kellee Diego i, RN - 10/30/2018 6:48 AM PDTAttempted to put patient on high flow 02 x2 attempts. Was u nable to keep 02 above 80's placed patient back on biPAP. Otherwise VSS and hourly rounding uneventful. Chart check complete. Víctor Wells ARNP - 10/29/2018 7:31 PM PDT [facility] Service: Orthopedic Surgery Progress Note 10/29/2018 [...] note might be different from the origin [facility] Service: Hospitalist Progress Note Hospital Day: LOS: [...] for input(s): IRON, TIBC, PCTSAT, FERRITIN, TSH, [id number], FOLATE in the last 168 hours. Recent [...] of PE. Bilateral lower extremity Doppler ultrasound raon ws no DVT. Echocardiogram pending. Possible aspiration [...] 7:39 This entry has been created using [employer]ognition software and [employer]. The entry has been reviewed and there may still exist sound alike word errors. Bailey Wellsian GUILLERMOP - 10/28/2018 5:52 PM PDT . [facility] Service: Orthopedic Surgery Progress Note 10/28/2018 [...] ARTHROPLASTY P)continue medical care per hospitalist and volleyball assembler. Weight bear as tolerated LLE. Continue PT [...] this note might be different from the [facility] Service: Hospitalist Progress Note Hospital Day: [...] for input(s): IRON, TIBC, PCTSAT, FERRITIN, TSH, [id number], FOLATE in the last 168 hours. Recent [...] 10:29 This entry has been created using [employer]ognition software and [employer]. The entry has been reviewed and there [...] migh t be different from the original. [facility] Adult Hospitalist Event Note Hospital Day: [...] that developed this am after returning from [facility]. Denies dizziness, nausea, cough, chest pain, abdominal pain vomiting or headache 1. Pain in prosthetic joint, initial encounter ([facility]) 2. Mechanical complication of prosthetic knee implant, initial encounter ([facility]) 3. Mechanical instability of hip prosthesis ([facility]) Past Medical History: Diagnosis Date Anxiety Anxious depression Arthralgia Arthritis Asthma not using inhalers DDD (degenerative disc disease), lumbar Deliberate self-cutting history of Depression Heartburn Hemorrhage of gastrointestinal tract 2015 upper and lower due ulcers Morbid obesity with BMI of 50.0-59.9, adult ([facility]) Pain in prosthetic joint ([facility]) with instability Panic attacks states [...] and a wheeze, called LUIS A Rowe [facility] ed. New IV placed Chart check complete [...] Community Support Services Current Outpt/Agency/Support Groups: (P) skilled nursing (specify) Community Agency Name: Other Resources: Discharge [...] in prosthetic joint, initial encounter ([facility]) 2. Mechanical complication of prosthetic knee implant, initial encounter ([facility]) 3. Mechanical instability of hip prosthesis ([facility]) Past Medical History: Diagnosis Date Anxiety Anxious depression Arthralgia Arthritis Asthma not using inhalers DDD (degenerative disc disease), lumbar Deliberate self-cutting history of Depression Heartburn Hemorrhage of gastrointestinal tract 2015 upper and lower due ulcers Morbid obesity with BMI of 50.0-59.9, adult ([facility]) Pain in prosthetic joint ([facility]) with instability Panic attacks states [...] 100 mg 100 mg Oral BID PRN iMah Monique MD gabapentin (NEURONTIN) capsule 200 mg [...] [facility] | | | | | | Mechanical | | | | | | instability of hip | | | | | | prosthesis ([facility]) | | | | | | Shortness of breath | | | | | | Morbid obesity | | | | | | ([facility]) | | + + +--------+ [...] | | | | PDT | encounter ([facility] [...] | ANAEROBES | | PDT | encounter ([facility] [...] at | | | | | | [facility], [address] | | | | | | [place] | | | | | | [address] | | | | + + + + + + + + | Specimen | + + | Blood | + + + + + + + | Performing | Address | City/State/Zipcode | Phone Number | | Organization | | | | + + + + + | [facility] | [address] | [place] [address] | [phone] | + + + + + Magnesium (11/09/2018 4:28 AM PDT) + + + + + + | Component | Value | Ref Range | Performed | Pathologist | | | | | At | Signature | + + + + + + | Magnesium | 2.5 (H)Comment: SPECIMEN | 1.7 - 2.4 mg/dL | [facility] | | | | SLIGHTLY | | LABORATORY | | | | HEMOLYZEDTesting | | | | | | performed at [facility], [address] | | | | | | [place], | | | | | | [place] [address] | | | | + + + + + + + + | Specimen | + + | Blood | + + + + + + + | Performing | Address | City/State/Zipcode | Phone Number | | Organization | | | | + + + + + | [facility] | [address] | [place] [address] | [phone] | + + + + + Basic [...] | >60Comment: GFR <60: | >60 | [facility] | | | GFR | CHRONIC [...] | | | | | performed at [facility], [address] | | | | | | [facility], | | | | | | [place] [address] | | | | + + + + + + + + | Specimen | + + | Blood | + + + + + + + | Performing | Address | City/State/Zipcode | Phone Number | | Organization | | | | + + + + + | [facility] | [address] | [place] [address] | [phone] | + + + + + CBC [...] | | | Absolute | performed at [facility], [address] | K/uL | LABORATORY | | | | [place], | | | | | | [place] [address] | | | | + + + + + + + + | Specimen | + + | Blood | + + + + + + + | Performing | Address | City/State/Zipcode | Phone Number | | Organization | | | | + + + + + | [facility] | [address] | [place] [address] | [phone] | + + + + + Magnesium (11/08/2018 3:56 AM PDT) + + + + + + | Component | Value | Ref Range | Performed | Pathologist | | | | | At | Signature | + + + + + + | Magnesium | 2.7 (H)Comment: Testing | 1.7 - 2.4 mg/dL | [facility] | | | | performed at [facility], [address] | | LABORATORY | | | | [place], | | | | | | [place] [address] | | | | + + + + + + + + | Specimen | + + | Blood | + + + + + + + | Performing | Address | City/State/Zipcode | Phone Number | | Organization | | | | + + + + + | [facility] | [address] | [place] [address] | [phone] | + + + + + Basic [...] 8.1 (L) | 8.5 - 10.5 | [place] | | | | | mg/dL | LABORATORY | | + + + + + + | Estimated | >60Comment: GFR <60: | >60 | [facility] | | | GFR | CHRONIC [...] | | | | | performed at [facility], [address] | | | | | | [facility], | | | | | | [place] [address] | | | | + + + + + + + + | Specimen | + + | Blood | + + + + + + + | Performing | Address | City/State/Zipcode | Phone Number | | Organization | | | | + + + + + | [facility] | [address] | [place] [address] | [phone] | + + + + + CBC [...] at | | | | | | [facility], [address] [facility] | | | | | | [place] | | | | | | [address] | | | | + + + + + + + + | Specimen | + + | Blood | + + + + + + + | Performing | Address | City/State/Zipcode | Phone Number | | Organization | | | | + + + + + | [facility] | [address] | [place] [address] | [phone] | + + + + + Magnesium (11/07/2018 4:11 AM PDT) + + + + + + | Component | Value | Ref Range | Performed | Pathologist | | | | | At | Signature | + + + + + + | Magnesium | 2.5 (H)Comment: Testing | 1.7 - 2.4 mg/dL | [facility] | | | | performed at [facility], [address] | | LABORATORY | | | | [place], | | | | | | [place] [address] | | | | + + + + + + + + | Specimen | + + | Blood | + + + + + + + | Performing | Address | City/State/Zipcode | Phone Number | | Organization | | | | + + + + + | [facility] | [address] | [place] [address] | [phone] | + + + + + Basic [...] 59 (L)Comment: GFR <60: | >60 | [facility] | | | GFR | CHRONIC [...] | | | | | performed at [facility], [address] | | | | | | [facility], | | | | | | [place] [address] | | | | + + + + + + + + | Specimen | + + | Blood | + + + + + + + | Performing | Address | City/State/Zipcode | Phone Number | | Organization | | | | + + + + + | [facility] | [address] | [place] [address] | [phone] | + + + + + Procalcitonin [...] | | | | | | at [facility];[address] | | | | | | [address];[place] [address] | | | | + + + + + + + + | Specimen | + + | Blood | + + + + + + + | Performing | Address | City/State/Zipcode | Phone Number | | Organization | | | | + + + + + | [facility] | [address] | [place] [address] | [phone] | + + + + + CBC [...] at | | | | | | [facility], [address] [facility] | | | | | | [place] | | | | | | [address] | | | | + + + + + + + + | Specimen | + + | Blood | + + + + + + + | Performing | Address | City/State/Zipcode | Phone Number | | Organization | | | | + + + + + | [facility] | [address] | [place] [address] | [phone] | + + + + + Magnesium (11/06/2018 4:09 AM PDT) + + + + + + | Component | Value | Ref Range | Performed | Pathologist | | | | | At | Signature | + + + + + + | Magnesium | 2.7 (H)Comment: Testing | 1.7 - 2.4 mg/dL | [facility] | | | | performed at [facility], [address] | | LABORATORY | | | | [place], | | | | | | [place] [address] | | | | + + + + + + + + | Specimen | + + | Blood | + + + + + + + | Performing | Address | City/State/Zipcode | Phone Number | | Organization | | | | + + + + + | [facility] | [address] | [place] [address] | [phone] | + + + + + Basic [...] | | | | | performed at [facility], [address] | | | | | | [facility], | | | | | | [place] [address] | | | | + + + + + + + + | Specimen | + + | Blood | + + + + + + + | Performing | Address | City/State/Zipcode | Phone Number | | Organization | | | | + + + + + | [facility] | [address] | [place] [address] | [phone] | + + + + + CBC [...] at | | | | | | [facility], [address] [facility] | | | | | | [place] | | | | | | [address] | | | | + + + + + + + + | Specimen | + + | Blood | + + + + + + + | Performing | Address | City/State/Zipcode | Phone Number | | Organization | | | | + + + + + | [facility] | [address] | [place] [address] | [phone] | + + + + + Magnesium (11/05/2018 4:05 AM PDT) + + + + + + | Component | Value | Ref Range | Performed | Pathologist | | | | | At | Signature | + + + + + + | Magnesium | 2.6 (H)Comment: Testing | 1.7 - 2.4 mg/dL | [facility] | | | | performed at [facility], [address] | | LABORATORY | | | | [address], | | | | | | [place] [address] | | | | + + + + + + + + | Specimen | + + | Blood | + + + + + + + | Performing | Address | City/State/Zipcode | Phone Number | | Organization | | | | + + + + + | [facility] | [address] | [place] [address] | [phone] | + + + + + Basic [...] | >60Comment: GFR <60: | >60 | [facility] | | | GFR | CHRONIC [...] | | | | | performed at [facility], [address] | | | | | | [facility], | | | | | | [place] [address] | | | | + + + + + + + + | Specimen | + + | Blood | + + + + + + + | Performing | Address | City/State/Zipcode | Phone Number | | Organization | | | | + + + + + | [facility] | [address] | [place] [address] | [phone] | + + + + + CBC [...] at | | | | | | [facility], [address] [place] [address] | | | | | | [address], [place], [place] | | | | | | [address] | | | | + + + + + + + + | Specimen | + + | Blood | + + + + + + + | Performing | Address | City/State/Zipcode | Phone Number | | Organization | | | | + + + + + | [facility] | [address] | [place] [address] | [phone] | + + + + + Magnesium [...] | | | | | [place] [address] | | | | + + + + + + + + | Specimen | + + | Blood | + + + + + + + | Performing | Address | City/State/Zipcode | Phone Number | | Organization | | | | + + + + + | [facility] | [address] | [place] [address] | [phone] | + + + + + Basic [...] | | | | | | MDRD IDTX traceable | | | | | | equation.Testing | | | | | | performed at [facility], [address] | | | | | | [facility], | | | | | | [place] [address] | | | | + + + + + + + + | Specimen | + + | Blood | + + + + + + + | Performing | Address | City/State/Zipcode | Phone Number | | Organization | | | | + + + + + | [facility] | [address] | [place] [address] | [phone] | + + + + + CBC [...] | | | | | performed at [facility], [address] | | | | | | [place], | | | | | | [place] [address] | | | | + + + + + + + + | Specimen | + + | Blood | + + + + + + + | Performing | Address | City/State/Zipcode | Phone Number | | Organization | | | | + + + + + | [facility] | [address] | [place] [address] | [phone] | + + + + + Magnesium (11/03/2018 3:58 AM PDT) + + + + + + | Component | Value | Ref Range | Performed | Pathologist | | | | | At | Signature | + + + + + + | Magnesium | 2.7 (H)Comment: Testing | 1.7 - 2.4 mg/dL | [facility] | | | | performed at [facility], [address] | | LABORATORY | | | | [address], | | | | | | [place] [address] | | | | + + + + + + + + | Specimen | + + | Blood | + + + + + + + | Performing | Address | City/State/Zipcode | Phone Number | | Organization | | | | + + + + + | [facility] | [address] | [place] [address] | [phone] | + + + + + Basic [...] | | | | | performed at [facility], [address] | | | | | | [facility], | | | | | | [place] [address] | | | | + + + + + + + + | Specimen | + + | Blood | + + + + + + + | Performing | Address | City/State/Zipcode | Phone Number | | Organization | | | | + + + + + | [facility] | [address] | [place] [address] | [phone] | + + + + + CBC [...] at | | | | | | [facility], [address] [place] [address] | | | | | | [place] | | | | | | [address] | | | | + + + + + + + + | Specimen | + + | Blood | + + + + + + + | Performing | Address | City/State/Zipcode | Phone Number | | Organization | | | | + + + + + | [facility] | [address] | [place] [address] | [phone] | + + + + + Magnesium [...] | | | | | [place] [address] | | | | + + + + + + + + | Specimen | + + | Blood | + + + + + + + | Performing | Address | City/State/Zipcode | Phone Number | | Organization | | | | + + + + + | [facility] | [address] | [place] [address] | [phone] | + + + + + Basic [...] | 8.7 | 8.5 - 10.5 | [facility] | | | | | mg/dL | LABORATORY | | + + + + + + | Estimated | >60Comment: GFR <60: | >60 | [facility] | | | GFR | CHRONIC [...] | | | | | performed at [facility], [address] | | | | | | [facility], | | | | | | [place] [address] | | | | + + + + + + + + | Specimen | + + | Blood | + + + + + + + | Performing | Address | City/State/Zipcode | Phone Number | | Organization | | | | + + + + + | [facility] | [address] | [place] [address] | [phone] | + + + + + CBC [...] at | | | | | | [facility], [address] [facility] | | | | | | [place] | | | | | | [address] | | | | + + + + + + + + | Specimen | + + | Blood | + + + + + + + | Performing | Address | City/State/Zipcode | Phone Number | | Organization | | | | + + + + + | [facility] | [address] | [place] [address] | [phone] | + + + + + Magnesium (11/01/2018 4:17 AM PDT) + + + + + + | Component | Value | Ref Range | Performed | Pathologist | | | | | At | Signature | + + + + + + | Magnesium | 2.7 (H)Comment: Testing | 1.7 - 2.4 mg/dL | [facility] | | | | performed at [facility], [address] | | LABORATORY | | | | [address], | | | | | | [place] [address] | | | | + + + + + + + + | Specimen | + + | Blood | + + + + + + + | Performing | Address | City/State/Zipcode | Phone Number | | Organization | | | | + + + + + | [facility] | [address] | [place] [address] | [phone] | + + + + + Basic [...] | | | | | performed at [facility], [address] | | | | | | [address], | | | | | | [place] [address] | | | | + + + + + + + + | Specimen | + + | Blood | + + + + + + + | Performing | Address | City/State/Zipcode | Phone Number | | Organization | | | | + + + + + | [facility] | [address] [facility] | [place] [address] | [phone] | + + + + + ANTHONY Profile, Reflex (11/01/2018 4:17 AM PDT) + + + + + + | Component | Value | Ref Range | Performed | Pathologist | | | | | At | Signature | + + + + + + | ANTHONY Screen, | NegativeComment: Testing | Negative | [facility] | | | Qual | performed at [facility] | | LABORATORY | | | | [place], [address] | | | | | | [place] [address] | | | | + + + [...] | | | | | with both TX-3 and | | | | | | MPO-ANCA enzyme | | | | | | immunoassays. Asmany as | | | | | | 5% serum samples are | | | | | | positive only by | | | | | | EIA.Ref. AM J Clin | | | | | | Pathol 1999;111:[id number]. | | | | | | | | | | + + + + + + | Atypical | <1:20Comment: The | Neg:<1:20 titer | [facility] | | | pANCA | atypical pANCA [...] | | 3 Antibody | performed by [facility], | | LABORATORY | | | | [address], | | | | | | [place] [address] | | | | + + + + + + + + | Specimen | + + | Blood | + + + + + + + | Performing | Address | City/State/Zipcode | Phone Number | | Organization | | | | + + + + + | [facility] | [address] | [place] [address] | [phone] | + + + + + Procalcitonin (11/01/2018 4:17 AM PDT) + + + + + + | Component | Value | Ref Range | Performed | Pathologist | | | | | At | Signature | + + + + + + | PROCALCITON | 1.18 (H)Comment: | <0.5 ng/mL | [facility] | | | IN | INTERPRETIVE [...] | | | | | | at [facility];[address] [place] [address] | | | | | | [facility];[place] [address] | | | | + + + + + + + + | Specimen | + + | Blood | + + + + + + + | Performing | Address | City/State/Zipcode | Phone Number | | Organization | | | | + + + + + | [facility] | [address] | [place] [address] | [phone] | + + + + + Potassium (10/31/2018 6:15 PM PDT) + + + + + + | Component | Value | Ref Range | Performed | Pathologist | | | | | At | Signature | + + + + + + | K | 3.8Comment: Testing | 3.5 - 4.9 | [facility] | | | | performed at [facility];[address] | mmol/L | LABORATORY | | | | [address];[place], [place] | | | | | | [address] | | | | + + + + + + + + | Specimen | + + | Blood | + + + + + + + | Performing | Address | City/State/Zipcode | Phone Number | | Organization | | | | + + + + + | [facility] | [address] | [place] [address] | [phone] | + + + + + CBC [...] LABORATORY | | | | performed at [facility], [address] | | | | | | [address], | | | | | | [place] [address] | | | | | | | | | | + + + + + + + + | Specimen | + + | Blood | + + + + + + + | Performing | Address | City/State/Zipcode | Phone Number | | Organization | | | | + + + + + | [facility] | [address] | [place] [address] | [phone] | + + + + + Magnesium (10/31/2018 4:14 AM PDT) + + + + + + | Component | Value | Ref Range | Performed | Pathologist | | | | | At | Signature | + + + + + + | Magnesium | 2.3Comment: Testing | 1.7 - 2.4 mg/dL | [facility] | | | | performed at [facility], [address] | | LABORATORY | | | | [address], | | | | | | [place] [address] | | | | + + + + + + + + | Specimen | + + | Blood | + + + + + + + | Performing | Address | City/State/Zipcode | Phone Number | | Organization | | | | + + + + + | [facility] | [address] | [place] [address] | [phone] | + + + + + Basic [...] | | | | | performed at [facility], [address] | | | | | | [facility], | | | | | | [place] [address] | | | | + + + + + + + + | Specimen | + + | Blood | + + + + + + + | Performing | Address | City/State/Zipcode | Phone Number | | Organization | | | | + + + + + | [facility] | [address] | [place] [address] | [phone] | + + + + + Phosphorus (10/31/2018 4:14 AM PDT) + + + + + + | Component | Value | Ref Range | Performed | Pathologist | | | | | At | Signature | + + + + + + | Phosphorus | 3.4Comment: Testing | 2.3 - 4.8 mg/dL | [facility] | | | | performed at [facility], [address] | | LABORATORY | | | | [facility], | | | | | | [place] [address] | | | | + + + + + + + + | Specimen | + + | Blood | + + + + + + + | Performing | Address | City/State/Zipcode | Phone Number | | Organization | | | | + + + + + | [facility] | [address] | [place] [address] | [phone] | + + + + + XR [...] | | | by: Korina Alcaraz, Kenneth Treviño Date/Time: 10/30/2018 4:54 PM | | + [...] | RBC | 1+Comment: STOMATONORMAL | | [facility] | | | Morphology | PLT MORPHTesting | | LABORATORY | | | | performed at [facility], [address] | | | | | | [address], | | | | | | [place] [address] | | | | | | | | | | + + + + + + + + | Specimen | + + | Blood | + + + + + + + | Performing | Address | City/State/Zipcode | Phone Number | | Organization | | | | + + + + + | [facility] | [address] | [place] [address] | [phone] | + + + + + Magnesium (10/30/2018 4:18 AM PDT) + + + + + + | Component | Value | Ref Range | Performed | Pathologist | | | | | At | Signature | + + + + + + | Magnesium | 2.3Comment: Testing | 1.7 - 2.4 mg/dL | [facility] | | | | performed at [facility], [address] | | LABORATORY | | | | [address], | | | | | | [place] [address] | | | | + + + + + + + + | Specimen | + + | Blood | + + + + + + + | Performing | Address | City/State/Zipcode | Phone Number | | Organization | | | | + + + + + | [facility] | [address] | [place] [address] | [phone] | + + + + + Basic [...] | >60Comment: GFR <60: | >60 | [facility] | | | GFR | CHRONIC [...] | | | | | performed at [facility], [address] | | | | | | [facility], | | | | | | [place] [address] | | | | + + + + + + + + | Specimen | + + | Blood | + + + + + + + | Performing | Address | City/State/Zipcode | Phone Number | | Organization | | | | + + + + + | [facility] | [address] | [place] [address] | [phone] | + + + + + Vitamin D, Deficiency Screen (25-Hydroxy) (10/30/2018 4:18 AM PDT) + + + + + + | Component | Value | Ref Range | Performed | Pathologist | | | | | At | Signature | + + + + + + | Vit D, | <12 (L)Comment: <20 | 30 - 150 ng/mL | [facility] | | | 25-Hydroxy | ng/mL [...] | | | | | performed at [facility], [address] | | | | | | [facility], | | | | | | [place] [address] | | | | + + + + + + + + | Specimen | + + | Blood | + + + + + + + | Performing | Address | City/State/Zipcode | Phone Number | | Organization | | | | + + + + + | [facility] | [address] [facility] [address] [facility] | [place] [address] | [phone] | + + + + + Culture, [...] | | | | [facility], [address] [facility] | | LABORATORY | | | | [place] | | | | | | [address]Ywicvth: Testing | | | | | | performed at [facility], [address] | | | | | | [place], | | | | | | [place] [address] | | | | + + + + + + + + | Specimen | + + | Body Fluid - Coughed | | sputum specimen | | (specimen) | + + + + + + + | Performing | Address | City/State/Zipcode | Phone Number | | Organization | | | | + + + + + | [facility] | [address] | [place] [address] | [phone] | + + + + + ECHO [...] Testing | 1.7 - 2.4 mg/dL | [facility] | | | | performed at [facility], [address] | | LABORATORY | | | | [address], | | | | | | [place] [address] | | | | + + + + + + + + | Specimen | + + | Blood | + + + + + + + | Performing | Address | City/State/Zipcode | Phone Number | | Organization | | | | + + + + + | [facility] | [address] | [place] [address] | [phone] | + + + + + Basic [...] 7.9 (L) | 8.5 - 10.5 | [facility] [...] | | | | | | MDRD IDTX traceable | | | | | | equation.Testing | | | | | | performed at [facility], [address] | | | | | | [facility], | | | | | | [place] [address] | | | | + + + + + + + + | Specimen | + + | Blood | + + + + + + + | Performing | Address | City/State/Zipcode | Phone Number | | Organization | | | | + + + + + | [facility] | [address] | [place] [address] | [phone] | + + + + + CBC with Differential (10/29/2018 4:39 AM PDT) + + + + + + | Component | Value | Ref Range | Performed | Pathologist | | | | | At | Signature | + + + + + + | WBC | 15.10 (H) | 3.80 - 11.00 | [facility] [...] at | | | | | | [facility], [address] [facility] | | | | | | [place] | | | | | | [address] | | | | + + + + + + + + | Specimen | + + | Blood | + + + + + + + | Performing | Address | City/State/Zipcode | Phone Number | | Organization | | | | + + + + + | [facility] | [address] | [place] [address] | [phone] | + + + + + VAS [...] DVT. | | | Signed by: Korina Ahn Shawn Sign Date/Time: 10/28/2018 1:20 | | | PM | | + + + + + | Procedure Note | + + | Robin, Tony Results In - 10/28/2018 1:24 PM PDT [...] | | | | | | at [facility];[address] [place] [address] | | | | | | [facility];[place] [address] | | | | + + + + + + + + | Specimen | + + | Blood | + + + + + + + | Performing | Address | City/State/Zipcode | Phone Number | | Organization | | | | + + + + + | [facility] | [address] | [place] [address] | [phone] | + + + + + B Type Natriuretic Peptide (10/28/2018 8:35 AM PDT) + + + + + + | Component | Value | Ref Range | Performed | Pathologist | | | | | At | Signature | + + + + + + | BNP | 101.07 (H)Comment: | 0 - 100 pg/mL | [facility] | | | | Testing performed at | | LABORATORY | | | | [facility];[address] | | | [address];[place] [address] | | | | + + + + + + + + | Specimen | + + | Blood | + + + + + + + | Performing | Address | City/State/Zipcode | Phone Number | | Organization | | | | + + + + + | [facility] | [address] | [place] [address] | [phone] | + + + + + Basic [...] | | | | | performed at [facility];[address] | | | | | | [address];[place] | | | | | | [address] | | | | + + + + + + + + | Specimen | + + | Blood | + + + + + + + | Performing | Address | City/State/Zipcode | Phone Number | | Organization | | | | + + + + + | [facility] | [address] | [place] [address] | [phone] | + + + + + CBC [...] | | | | | performed at [facility] | | | | | | [address];[place], [place] | | | | | | [address] | | | | + + + + + + + + | Specimen | + + | Blood | + + + + + + + | Performing | Address | City/State/Zipcode | Phone Number | | Organization | | | | + + + + + | [facility] | [address] | [place] [address] | [phone] | + + + + + CT [...] process. Signed | | | by: Korina Donovan, Gilles Sign Date/Time: 10/27/2018 6:46 PM | [...] | >60Comment: GFR <60: | >60 | [facility] | | | GFR | CHRONIC [...] | | | | | | MDRD IDTX traceable | | | | | | equation.Testing | | | | | | performed at [facility] | | | | | | [facility];[place], [place] | | | | | | [address] | | | | + + + + + + + + | Specimen | + + | Blood | + + + + + + + | Performing | Address | City/State/Zipcode | Phone Number | | Organization | | | | + + + + + | [facility] | [address] | [place] [address] | [phone] | + + + + + CBC [...] [facility] | | | | performed at [facility], [address] | | LABORATORY | | | | [address], | | | | | | [place] [address] | | | | + + + + + + + + | Specimen | + + | Blood | + + + + + + + | Performing | Address | City/State/Zipcode | Phone Number | | Organization | | | | + + + + + | [facility] | [address] | [place] [address] | [phone] | + + + + + ECG [...] [facility] | | | | performed at [facility], [address] | | LABORATORY | | | | [address], | | | | | | [place] [address] | | | | + + + + + + + + | Specimen | + + | Blood | + + + + + + + | Performing | Address | City/State/Zipcode | Phone Number | | Organization | | | | + + + + + | [facility] | [address] | [place] [address] | [phone] | + + + + + XR [...] | | | abnormalities are grossly identified. Supervisor [employer] sections are | | | submitted in [...] interpretation was | | | performed by [facility], [facility], [facility] | | | [place], [place] (Furnace Keeper: Víctor Livingston M.D.; | | | CLIA#: [id number]).The technical component was performed by [facility] | | | [facility], [address] [place] [address] (Furnace Keeper: | | | Nadiya Sharma MD; CLIA# [id number]). Diagnostician: Víctor Livingston | | | MDPathologistElectronically [...] | | LABORATORY | | | | Blvd;[place] [address] | | | | + + + [...] RESULT | Testing performed at | | [facility] | | | | [facility], [address] [facility] | | LABORATORY | | | | [place] | | | | | | [address]Knmxqnh: Testing | | | | | | performed at [facility], [address] | | | | | | [facility] [place] | | | | | | [address] | | | | + + + + + + + + | Specimen | + + | | + + + + + + + | Performing | Address | City/State/Zipcode | Phone Number | | Organization | | | | + + + + + | [facility] | [address] | [place] [address] | [phone] | + + + + + Culture, [...] RESULT | Testing performed at | | [facility] | | | | [facility], [address] [facility] | | LABORATORY | | | | [facility], [place], [place] | | | | | | [id number]: Testing | | | | | | performed at [facility], [address] | | | | | | [facility], | | | | | | [place] [address] | | | | + + + [...] [facility] | [address] | [place] [address] | [phone] | + + + + + Type [...] + + + | BB BAND | [id number] | | [facility] | | | | | | LABORATORY | | + + + + + + | BB BAND | Testing performed at | | [facility] | | | | [facility];[address] | | LABORATORY | | | | [address];[place] [address] | | | | + + + + + + + + | Specimen | + + | Blood | + + + + + + + | Performing | Address | City/State/Zipcode | Phone Number | | Organization | | | | + + + + + | [facility] | [address] | [place] [address] | [phone] | + + + + + POCT Test, Urine, Qual (10/24/2018 1:27 PM PDT) + + + + + + | Component | Value | Ref Range | Performed | Pathologist | | | | | At | Signature | + + + + + + | HCG, | NEGATIVEComment: Testing | NEG | [facility] | | | Quantitativ | performed at [facility];[address] | | LABORATORY | | | [address] | [address];[place], [place] | | | | | | [address] | | | | + + + + + + + + | Specimen | + + | | + + + + + + + | Performing | Address | City/State/Zipcode | Phone Number | | Organization | | | | + + + + + | [facility] | [address] | [place] [address] | [phone] | + + + + + documented in this encounter Visit Diagnoses + + | Diagnosis | + + | Pain in prosthetic joint, initial encounter (HCC) | + + | Mechanical complication of prosthetic knee implant, initial encounter ([facility]) | + + documented in this encounter [...] | | | | | | 0414, Jose [place]. Use with | | | | | [...] Starting Tue10/24/18 at 2120, If | | | | [...] HOURS PRN, | | | Itching, Starting 10/24/18 at | | | 2120, Oral route [...] | | | | | modification) on Becka 11/02/18 at | | | | | [...] | | | | | dose on Becka 10/26/18 at 2100, Do | | | | [...] PDT | | | | | Starting Tue10/31/18 at 0829, | | | | | [...] | | +---+---+ + +-------+ +--------+---+---+ | [facility] | Given | 10/25/19 | 1 Dose | | | | CONSULT, Starting 10/24/18 at | | 19 6:21 | | [...]
--- OUTSIDE RECORDS SUMMARY | ~2019-07-24 | XMS | Encounter Summary ---
Demographics + + + | Address | [address] | | | [place] [address] | + + + | Home Phone | | + + + | Preferred Language | Unknown | + + + | Marital Status | | + + + | Faith Affiliation | Unknown | + + + | Race | Unknown | + + + | Ethnic Group | Unknown | + + + Author + + + | Author | [facility] | | | and [place] | + + + | Organization | [facility] | | | and [place] | + + + | Address | Unknown | + + + | Phone | Unavailable | + + + Support + + + + + | Name | Relationship | Address | Phone | + + + + + | Fabienne Juarez | ECON | [place] | | | | | [address] | | + + + + + Care Team Providers + +------+ + | Care Metal Flow Coordinator Name | Role | Phone | + [...] [address] | | | | | [address] [place], [place] | [address] | | | | | [address] | [place] [address] | | | | | [phone] | [phone] | | | | | | | [...]
--- OUTSIDE RECORDS SUMMARY | ~2019-07-24 | XMS | Encounter Summary ---
Demographics + + + | Address | [address] | | | [place] [address] | + + + | Home Phone [...] | Located Within [facility] | | | and [place] | + + + | Organization | Located Within [facility] | | | and [place] | + + + | Address | Unknown | + + + | Phone | Unavailable | + + + Support + + + + + | Name | Relationship | Address | Phone | + + + + + | Fabienne Juarez | ECON | [place] | | | | | [address] | | + + + + + Care Team Providers + +------+ + | Care Analysis Intern Name | Role | Phone | [...] | Services | Pain in | Miah Sanon MD | | | | Required | | prosthetic | [address] | | | | | | joint, | [address] | | | | | | initial | [place] | | | | | | encounter | [address] | | | | | | (HCC) | Phone: | | | | | | Mechanical | [phone] | | | | | | complication | Fax: | | | | | | of | [phone] | | | | | | prosthetic [...] | | | | | | | ([facility]) | | | + + + + [...] | | | | encounter | | [address] Phone: | | | | | (HCC) | | [phone] | | | | | Mechanical | | Fax: | | | | | complication | | [phone] | | | | | of | | | | | | | prosthetic | | | | | | | knee | | | | | | | implant, | | | | | | | initial | | | | | | | encounter | | | | | | | ([facility]) | | | | | | | Procedures | | | | | | | [place] REVISE | | | | | | [...] + + | 10/24/ | Hospital | [facility] | Miah Monique | Morbid obesity (HCC) | | 2019 - | Encounter | [facility] | MD Fab [address] | (Primary Dx); Pain | | | | [address] | [address] | in prosthetic joint, | | 11/09/ | | [place], [place] | [place] [address] | initial encounter | | 2019 | | [address] | [phone] | (HCC); Mechanical | | | | [phone] | | complication of | | | [...] hypoxia | | | | | | ([facility]) | +--------+ + + + + [...] [facility] comprising of an acetabular component revision. This [...] and psychiatry was consulted. He r psychiatry FINANCIAL OPERATIONS CONSULTANT was also contacted and she was restarted [...] room air #Depression/anxiety/PTSD: -11/03/[address] [facility] [phone]. She has a diagnosis of PTSD and [...] TOTAL HIP; Surgeon: Miah Monique MD; Location: [facility] MAIN OR TOTAL HIP ARTHROPLASTY Left 2014 [facility] Allergies Allergen Reactions Bupropion Hives Medications Prior [...] * No resolved hospital problems. * Disposition: group home Condition: Fair Code Status: Full Code Follow up: Miah Monique MD [address] [place] [id number] In 4 weeks For wound re-check and [...] Aspirin, ASA oral tablets Brand Names: Aspirtab, Aspir-Giuila, Alejandra Advanced Aspirin, Alejandra Aspirin, Alejandra Aspirin [...] more often than directed. Talk to your pug mill operator regarding the use of this medicine [...] should report to your doctor or health home care coordinator as soon as p ossible: allergic reactions [...] attention (report to your doctor or health home care coordinator if they continue or are bothersome): diarrhea [...] for pain, tell your doctor or health home care coordinator if the pain lasts more than 10 [...] if prescribed by your doctor or health home care coordinator. Do not take aspirin or aspirin-like medicines [...] pharmacist, or health care provider. Copyright 2019 [employer] Albuterol inhalation aerosol Brand Names: Proair HFA, [...] ou have any questions. Talk to your pug mill operator regarding the use of this medicine in children. Special care may be needed. What side effects may I notice from receiving this medicine? Side effects that you should report to your doctor or health home care coordinator as soon as p ossible: allergic reactions [...] attention (report to your doctor or health home care coordinator if they continue or are bothersome): cough [...] this medicine? Tell your doctor or health home care coordinator if your symptoms do not improve. Do [...] or health care provider. Copyright 2019 Elsevier Albuterol; Ipratropium solution for inhalation Brand Name: [...] more often than directed. Talk to your pug mill operator regarding the use of this medicine in children. Special care may be needed. What side effects may I notice from receiving this medicine? Side effects that you should report to your doctor or health home care coordinator as soon as p ossible: allergic reactions [...] attention (report to your doctor or health home care coordinator if they continue or are bothersome): blurred [...] pharmacist, or health care provider. Copyright 2019 [employer] Celecoxib capsules Brand Name: Celebrex What is [...] information carefully each time. Talk to your pug mill operator regarding the use of this medicine in children. Special care may be needed. What side effects may I notice from receiving this medicine? Side effects that you should report to your doctor or health home care coordinator as soon as p ossible: allergic reactions [...] attention (report to your doctor or health home care coordinator if they continue or are bothersome): constipation [...] this medicine? Tell your doctor or health home care coordinator if your pain does not get better. [...] roke, talk with your doctor or health home care coordinator. Do not take medicines such as ibuprofen [...] pharmacist, or health care provider. Copyright 2019 [employer] Furosemide tablets Brand Names: Active-Medicated Specimen Kit, [...] not take at bedtime. Talk to your pug mill operator regarding the use of this medicine in children. While this drug m ay be prescribed for selected conditions, precautions do apply. What side effects may I notice from receiving this medicine? Side effects that you should report to your doctor or health home care coordinator as soon as p ossible: blood in [...] attention (report to your doctor or health home care coordinator if they continue or are bothersome): headache [...] this medicine? Visit your doctor or health home care coordinator for regular checks on your progress. Check yo ur blood pressure regularly. Ask your doctor or health home care coordinator what your blood pre ssure should be, [...] information carefully each time. Talk to your pug mill operator regarding the use of this medicine in children. Special care may be needed. What side effects may I notice from receiving this medicine? Side effects that you should report to your doctor or health home care coordinator as soon as p ossible: allergic reactions like skin rash, itching or hives, swelling of the face, lips, or tong ue worsening of mood, thoughts or actions of suicide or dying Side effects that usually do not require medical attention (report to your doctor or health home care coordinator if they continue or are bothersome): constipation [...] this medicine? Visit your doctor or health home care coordinator for regular checks on your progress. You may want to keep a record at home of how you feel your condition is responding to treatment. You may want to share this information with your doctor or health home care coordinator at each vis it. You should contact your doctor or health home care coordinator if your seizures get worse or if you have any new types of seizures. Do not stop taking this medicine or any of your seiz ure medicines unless instructed by your doctor or health home care coordinator. Stopping your me dicine suddenly can increase [...] dying should be reported to your health home care coordinator right away. Women who become while using this medicine may enroll in the [place]ptic Drug Registry by calling . This registry collects informatio n about the safety of antiepileptic drug use during . NOTE:This sheet is a summary. It may not cover all possible information. If you have questi ons about this medicine, talk to your doctor, pharmacist, or health care provider. Copyright 2019 [employer] Morphine sustained-release tablets Brand Names: ARYMO ER, [...] information carefully each time. Talk to your pug mill operator regarding the use of this medicine in children. Special care may be needed. What side effects may I notice from receiving this medicine? Side effects that you should report to your doctor or health home care coordinator as soon as p ossible: allergic reactions [...] attention (report to your doctor or health home care coordinator if they continue or are bothersome): constipation [...] to an official disposal site. Contact the [facility] at [phone] [facility] to find a site. If you [...] this medicine? Tell your doctor or health home care coordinator if your pain does not go away, [...] pharmacist, or health care provider. Copyright 2019 Else[employer] Nicotine skin patches Brand Names: Habitrol, Nicoderm [...] the same area again. Talk to your pug mill operator regarding the use of this medicine in children. Special care may be needed. What side effects may I notice from receiving this medicine? Side effects that you should report to your doctor or health home care coordinator as soon as p ossible: allergic reactions [...] attention (report to your doctor or health home care coordinator if they continue or are bothersome): diarrhea [...] only last for a few days. Call [facility] doctor or health home care coordinator if skin redness does not go away after 4 days, if your skin swells, or if you get a rash. If you are a diabetic and you quit smoking, the effects of insulin may be increased and you may need to reduce your insulin dose. Check with your doctor or health home care coordinator ab out how you should adjust your [...] pharmacist, or health care provider. Copyright 2019 [employer] Olanzapine tablets Brand Name: Zsharifarexa What is this medicine? OLANZAPINE (oh CARSON za juanen) is used to treat schizophrenia, psychotic disorders, [...] of your doctor or health care professionmoshe crystal. A special MedGuide will be given to you by the pharmacist with each new prescription and re fill. Be sure to read this information carefully each time. Talk to your pug mill operator regarding the use of this medicine in children. While this drug m ay be prescribed for children as young as 13 years for selected conditions, precautions do a pply. What side effects may I notice from receiving this medicine? Side effects that you should report to your doctor or health home care coordinator as soon as p ossible: allergic reactions [...] attention (report to your doctor or health home care coordinator if they continue or are bothersome): changes [...] this medicine? Visit your doctor or health home care coordinator for regular checks on your progress. It may b e several weeks before you see the full effects of this medicine. Notify your doctor or heal th home care coordinator if your symptoms get worse, if you have new symptoms, if you are having an unusual effect from this medicine, or if you feel out of control, very discouraged or th ink you might harm yourself or others. Do not suddenly stop taking this medicine. You may need to gradually reduce the dose. Ask y our doctor or health home care coordinator for advice. You may get dizzy or [...] allergies without asking your doctor or health home care coordinator for advice. Some ingredients can increase possible side effects. Your mouth may get dry. Chewing sugarless gum or sucking hard candy, and drinking plenty of water will help. This medicine can reduce the response of your body to heat or cold. Dress piping supervisor cold weat her and stay hydrated in [...] information carefully each time. Talk to your pug mill operator regarding the use of this medicine in children. Special care may be needed. What side effects may I notice from receiving this medicine? Side effects that you should report to your doctor or health home care coordinator as soon as p ossible: allergic reactions [...] attention (report to your doctor or health home care coordinator if they continue or are bothersome): constipation [...] to an official disposal site. Contact the [facility] at [phone] [facility] to find a site. If you cannot return the medicine, flush it down the toilet. Do not use the medicine after the expiration date. What should I tell my health care provider before I take this medicine? They need to know if you have any of these conditions: Waverly's disease brain tumor head injury heart disease [...] this medicine? Tell your doctor or health home care coordinator if your pain does not go away, [...] or health care provider. Copyright 2019 Elsevier Prednisone tablets Brand Names: Deltasone, Predone, Sterapred, [...] avoid any side effects. Talk to your pug mill operator regarding the use of this medicine in children. Special care may be needed. What side effects may I notice from receiving this medicine? Side effects that you should report to your doctor or health home care coordinator as soon as p ossible: allergic reactions [...] attention (report to your doctor or health home care coordinator if they continue or are bothersome): confusion, [...] ta lk to your doctor or health home care coordinator. You may need to miss a dose [...] if you have any of these conditions: Ashland's syndrome diabetes glaucoma heart disease high blood [...] this medicine? Visit your doctor or health home care coordinator for regular checks on your progress. If [...] have surgery, tell your doctor or health home care coordinator that you hav e taken this medicine within the last twelve months. Ask your doctor or health home care coordinator about your diet. You may need to lower the amou nt of salt you eat. This medicine may affect blood sugar levels. If you have diabetes, check with your doctor o r health home care coordinator before you change your diet or the [...] e often than directed. Talk to your pug mill operator regarding the use of this medicine in children. While this medici ne may be prescribed for children as young as 2 years for selected conditions, precautions d o apply. What side effects may I notice from receiving this medicine? Side effects that you should report to your doctor or health home care coordinator as soon as p ossible: diarrhea muscle weakness nausea, vomiting unusual weight loss Side effects that usually do not require medical attention (report to your doctor or health home care coordinator if they continue or are bothersome): bloating [...] by your doctor or health care professiona l. This medicine can be habit-forming. Long-term use can make your body depend on the laxati ve for regular bowel movements, damage the bowel, cause malnutrition, and problems with the amounts of water and salts in your body. If your constipation keeps returning, check with yo doctor or health home care coordinator. NOTE:This sheet is a summary. It may not cover all possible information. If you have questi ons about this medicine, talk to your doctor, pharmacist, or health care provider. Copyright 2019 Elsevier Tramadol tablets Brand Name: Ultram What is [...] information carefully each time. Talk to your pug mill operator regarding the use of this medicine in children. Special care may be needed. What side effects may I notice from receiving this medicine? Side effects that you should report to your doctor or health home care coordinator as soon as p ossible: allergic reactions [...] attention (report to your doctor or health home care coordinator if they continue or are bothersome): constipation [...] this medicine? Tell your doctor or health home care coordinator if your pain does not go away, [...] 3 days, call your doctor or health home care coordinator. Your mouth may get dry. Chewing sugarless [...] attachments cannot be sent through Care Everywhere.Sepsis ([place] )Sepsis, Understanding ([place]an)documented in this encounter Medications at Time of [...] | 1 | 2 | 11/10/19 | 09/10/201 | | mcg/puff inhaler | the lungs [...] RN 11/09/2018 15:54 Harpal Ray MD - 2:29 PM PDT [facility] Service: Hospitalist Progress Note Pt: Sylvie Ramsey AGE/SEX: 48 y.o. female ROOM: [facility]- : 1970 PCP: No Physician on file [...] over this and are recommending SNF. Migdalia chester is currently refusing this option as 1) [...] to patient. Medically I recommend patient contin ue to take her medications as prescribed and [...] over2 weeks #Depression/anxiety/PTSD: -11/03/[address] [facility] [phone]. She has a diagnosis of PTSD and [...] care purp ose erHarpal kincaid MD - 0 11/08/2018 12:00 PM PDT [facility] Service: Hospitalist Progress Note Pt: Sylviechalino Ramsey AGE/SEX: 48 y.o. female ROOM: 9119/9119-01 [...] encounter as of 11/08/18-12:01 IMAGING: Reviewed in [facility], no new results. PROBLEM LIST Principal [...] as able #Depression/anxiety/PTSD: -11/03/[address] [facility] [phone]. She has a diagnosis of PTSD and [...] notes for continuity of care purp ose Shasha Ureña RN - 4:44 AM PDTPatient still complains of significant amounts of pain at L hip after a ll available pain medications and other interventions such as repositioning and ambulation h ave been provided. Still requiring 2L of oxygen via [place]. Ambulates fairly well with platform walker to commode. No significant events during hourly rounding. Shasha Monsalve RN eovanna Flores R N - 11/07/2018 6:55 PM PDTEnd of shift chart check complete. Geovanna Flores RN Harpal Ray M D - 11/07/2018 2:04 PM PDT [facility] Service: Hospitalist Progress Note Hospital Day: [...] and psychiat ry was consulted. Her psychiatry FINANCIAL OPERATIONS CONSULTANT was also contacted and she was restarted [...] 11/07/18 0411 PROCALCITONI 0.10 Imaging: Reviewed in EPIC, no new results. PROBLEM [...] as tolerated #Depression/anxiety/PTSD: -11/03/[address] [facility] [phone]. She has a diagnosis of PTSD and [...] Chambers MD - 11/07/2018 8:06 AM PDT [facility] Service: PULMONOLOGY Progress Note Date of [...] improved. Not coughing at this time. Sincere menendez remains on HFNC at 25LPM at 29% [...] TOTAL HIP; Surgeon: Miah Monique MD; Location: [facility] MAIN OR TOTAL HIP ARTHROPLASTY Left 2014 [...] on file Godwin Man MD 11/07/2018 orter, Mat MIGDALIA Lamb - 11/06/2018 10:09 AM PDTFormatting of this note might be different from the o riginal. [facility] Service: Orthopedic Surgery Progress Note Hospital [...] per ortho standpoint - Planned transfer to [facility] MIGDALIA Thompson 11/06/2018 10:09 MIGDALIA Thompson has created this entry using [employer] and [employer] macros. The entry has been reviewed and there may still exist sound alike word errors. Kush Miller MD - 11/06/2018 8:02 AM PDT [facility] Service: Hospitalist Progress Note Pt: Sylvie Braulio AGE/SEX: 48 y.o. female ROOM: [facility]9119-01 : 1970 PCP: No Physician on file [...] agitaitation and psychiatry was consulted. Her psychiatry FINANCIAL OPERATIONS CONSULTANT was also contacted and she was restarted [...] calm today. LABS: Recent Labs Lab 11/06/1840811/05/1840411/04/18 0353 WBC 21.02* 20.45* 18.65* HGB 11.9 12.6 11.9 HCT 35.7 37.6 36.6 PLT 529* 505* 421* Recent Labs Lab 11/06/1840811/05/1840411/04/18 0353 NA 142 141 145 K 3.9 4.5 4.5 CL 102 101 102 CO2 34* 34* 35* BUN 34* 31* 40* CALCIUM 8.8 8.4* 8.4* Phosphorus: Lab Results Component Value Date PHOS 3.4 10/31/2018 No results for input(s): LABALBU in the last 168 hours. Recent Labs Lab 11/06/1840811/05/1840411/04/18 0353 MG 2.7* 2.6* 2.7* No results for input(s): AMYLASE in the last 168 hours. No results for input(s): PHART, PO2ART, QVO9HUU, U2RWRBOH, BEART in the last 168 hours. No results for input(s): APTT, INR, PTT in the last 168 hours. No results for input(s): TSH in the last 168 hours. Invalid input(s): T3FREE, FREET4 No results for input(s): TROPONINT in the last 168 hours. Invalid input(s): CKTOTAL, TROPONINI, CKMBINDEX Microbiology Results (72 hrs) Procedure Component Value Units Date/Time Culture, Respiratory, Lower, Smear [[id number]] Collected: 10/29/181728 Order Status: Completed Lab Status: [...] HELD 48 HOURS. RESULT Testing performed at [facility], [address] [place] [address] Comment: Testing performed at [facility], [address] [place] [address] RADIOLOGY: Recent Results (from the past 360 [...] study. Depression/anxiety/ptsd - 11/03/[address] [facility] [phone]. She has a diagnosis o f PTSD [...] and managing patient and counseling/coordination. Dictation software, m0um0u, used which may contain error for similar sounding words even af ter review. Personal communication requested for any clarification. Portions of this chart may have been copied from previous notes for continuity of care purp ose iTerri christian RN - 11/05/2018 6:19 PM PDTEnd of shift review complete. Donovan Loja PA - 11/05/2018 10:52 AM PDT [facility] Service: Orthopedic Surgery Progress Note Hospital [...] per ortho standpoint - Planned transfer to [facility] MIGDALIA Thompson 11/05/2018 10:52 MIGDALIA Thompson has created this entry using [employer] and [employer] macros. The entry has been reviewed and there may still exist sound alike word errors. Kush Miller MD - 11/05/2018 9:44 AM PDT [facility] Service: Hospitalist Progress Note Pt: Sylvie Ramsey AGE/SEX: 48 y.o. female [facility] : 1970 PCP: No Physician on file [...] agitaitation and psychiatry was consulted. Her psychiatry FINANCIAL OPERATIONS CONSULTANT was also contacted and she was restarted [...] is calm today. LABS: Recent Labs Lab 11/05/18 0405 11/04/18 0353 11/03/18 0358 WBC 20.45* 18.65* 19.27* HGB 12.6 11.9 11.0* HCT 37.6 36.6 33.7* PLT 505* 421* 410* Recent Labs Lab 11/05/18 0405 11/04/18 0353 11/03/18 0358 NA 141 145 140 K 4.5 4.5 4.0 CL 101 102 99 CO2 34* 35* 39* BUN 31* 40* 39* CALCIUM 8.4* 8.4* 8.1* Phosphorus: Lab Results Component Value Date PHOS 3.4 10/31/2018 No results for input(s): LABALBU in the last 168 hours. Recent Labs Lab 11/05/18 0405 11/04/18 0353 11/03/18 0358 MG 2.6* 2.7* 2.7* No results for input(s): AMYLASE in the last 168 hours. No results for input(s): PHART, PO2ART, DTX4NVN, V0YTVDGO, BEART in the last 168 hours. No results for input(s): APTT, INR, PTT in the last 168 hours. No results for input(s): TSH in the last 168 hours. Invalid input(s): T3FREE, FREET4 No results for input(s): TROPONINT in the last 168 hours. Invalid input(s): CKTOTAL, TROPONINI, CKMBINDEX Microbiology Results (72 hrs) Procedure Component Value Units Date/Time Culture, Respiratory, Lower, Smear [[id number]] Collected: 10/29/181728 Order Status: Completed Lab Status: [...] HELD 48 HOURS. RESULT Testing performed at [facility], [address] [place] [address] Comment: Testing performed at [facility], [address] [place] [address] RADIOLOGY: Recent Results (from the past 360 [...] study. Depression/anxiety/ptsd - 11/03/[address] [facility] [phone]. She has a diagnosis o f PTSD [...] and managing patient and counseling/coordination. Dictation software, [id number], used which may contain error for similar sounding words even af ter review. Personal communication requested for any clarification. Portions of this chart may have been copied from previous notes for continuity of care purp ose Romana Hubbard RN - 11/05/2018 6:29 AM PDTPt has been stable and [facility] shift. Cooperative with all care. High flow O2 requirements have remained unchanged from previous shift. Chart check completed. Shanice Elizabeth RN - 11/04/2018 5:56 PM PDTSepsis team signing off. Please call with any questions/concerns. [phone]. Shanice Rahman RN P PREMStLala elizabeth RN - 11/04/2018 5:16 PM PDTPt has [...] ose tomorrow. End of shift review complete. David Webster Chaplain - 11/04/2018 3:24 PM PDTChecked in w/RN. Pt lying on bed, awak e. p intro'd self, asked how pt doing. She said, "Doing fine, thanks for coming by." p e xplained head refrigeration engineer availability days & nights if needed. Pt thanked [facility]. Chaplain David Greeney Donovan Belle PA - 11/04/2018 1:02 PM PDT [facility] Service: Orthopedic Surgery Progress Note Hospital [...] MIGDALIA Thompson has created this entry using [employer] Recognition softDesktop Genetics e and [employer] macros. The entry has been reviewed and there may still exist sound alike word errors. Kush Miller MD - 11/04/2018 11:50 AM PDT [facility] Service: Hospitalist Progress Note Pt: Sylvie [...] % 11/03/18 2226 62 25 98 % 11/03/18 2005 57 24 94 % 11/03/18 1944 115/64 [...] is calm today. LABS: Recent Labs Lab 11/04/1835211/03/1835711/02/18 0408 WBC 18.65* 19.27* 19.10* HGB 11.9 11.0* 10.8* HCT 36.6 33.7* 32.7* PLT 421* 410* 390 Recent Labs Lab 11/04/1835211/03/1835711/02/18 0408 NA 145 140 139 K 4.5 [...] hours. No results for input(s): PHART, PO2ART, HWH9WMI, W5UKQMIE, BEART in the last 168 hours. No results for input(s): APTT, INR, PTT in the last 168 hours. No results for input(s): TSH in the last 168 hours. Invalid input(s): T3FREE, FREET4 No results for input(s): TROPONINT in the last 168 hours. Invalid input(s): CKTOTAL, TROPONINI, CKMBINDEX Microbiology Results (72 hrs) Procedure Component Value Units Date/Time Culture, Respiratory, Lower, Smear [[id number]] Collected: 10/29/181728 Order Status: Completed Lab Status: [...] HELD 48 HOURS. RESULT Testing performed at [facility], [address] [place] [address] Comment: Testing performed at [facility], [facility] [place] [address] RADIOLOGY: Recent Results (from the past 360 [...] study. Depression/anxiety/ptsd - 11/03/[address] [facility] [phone]. She has a diagnosis o f PTSD [...] and managing patient and counseling/coordination. Dictation software, m0um0u, used which may contain error for similar [...] to have regu lar p.o. Intake. Per marine underwriter note oxygenation is improving. 1. Pain in prosthetic joint, initial encounter ([facility]) 2. Mechanical complication of prosthetic knee implant, initial encounter ([facility]) 3. Mechanical instability of hip prosthesis ([facility]) 4. Shortness of breath 5. Acute respiratory failure with hypoxia ([facility]) Past Medical History: Diagnosis Date Anxiety Anxious depression Arthralgia Arthritis Asthma not using inhalers DDD (degenerative disc disease), lumbar Deliberate self-cutting history of Depression Heartburn Hemorrhage of gastrointestinal tract 2015 upper and lower due ulcers Morbid obesity with BMI of 50.0-59.9, adult ([facility]) Pain in prosthetic joint ([facility]) with instability Panic attacks states can be severe prior to surgeries PTSD (post-traumatic stress disorder) Current Facility-Administered Medications Medication Dose Route Frequency Provider Last Rate Last Dose acetaminophen (TYLENOL) tablet 650 mg 650 mg Oral Q6H PRN Kush Ge MD 650 mg at 10/31/18 1438 albuterol 90 mcg/puff inhaler 2 puff 2 puff Inhalation RT Q4H PRN Fab Vickers 2 puff at 11/01/18 1619 albuterol-ipratropium 2.5-0.5 [...] tablet Oral Q6H P JUAN Ge MD 2 tablet at 11/02/18 1628 [...] Nightly Yuki Pruett MD 8.6 mg at 11/02/182040 traMADol (ULTRAM) tablet 50 mg 50 mg [...] mobility exercises. Security, risk, pcc, stepdown manager case, primary md, and lead rn present with bedside rn. Pt crying and yelling that she doesn't want to "be here". Per p malia disruptive/violent pt paperwork filled out. Situation and pt expectations reviewed by risk and manager case with pt. Sitter at bedside currently. Ever [...] the room, pt through breakfast tray at [facility]. Dada mares called by staff physical therapist. pt. also stated during session everything we [...] HFNC 60L 49% , Spo2 94% Kush Miller MD - 11/03/2018 7:44 AM PDTFormatting of this note might be different f rom the original. [facility] Service: Hospitalist Progress Note Pt: Sylvie [...] Behavior is normal. LABS: Recent Labs Lab 11/03/188 11/02/188 11/01/187 10/28/18 0835 WBC 19.27* 19.10* 14.67* < > [...] hours. No results for input(s): PHART, PO2ART, TOO1LKA, T8IYBXDG, BEART in the last 168 hours. No results for input(s): APTT, INR, PTT in the last 168 hours. No results for input(s): TSH, T3FREE in the last 168 hours. Invalid input(s): FREET4 No results for input(s): TROPONINT in the last 168 hours. Invalid input(s): CKTOTAL, TROPONINI, CKMBINDEX Microbiology Results (72 hrs) Procedure Component Value Units Date/Time Culture, Respiratory, Lower, Smear [[id number]] Collected: 10/29/181728 Order Status: Completed Lab Status: [...] HELD 48 HOURS. RESULT Testing performed at [facility], [address] [place] [address] Comment: Testing performed at [facility], [address] [place] [address] RADIOLOGY: Recent Results (from the past 360 [...] sleep study. Depression/anxiety/ptsd - Discussed patient with [facility] [phone]. She has a diagnosis of PTSD a [...] making capacity - consulted psychiatry. Appreciate recs. marketing project manager to attempt to obtain more information [...] and managing patient and counseling/coordination. Dictation software, m0um0u, used which may contain error for similar [...] to be transfer to a hospital in [place], or that she was going to call the police and maxim the hospital. , lead nurse, foster care case manager and risk not ified. Pt remained calmed after risk talked to her. She continues on BiPAP and hi flow with meals. PRN norco given. Chart check complete. Sanjuanita Peters RN Emilio DawnINDERJIT - 11/02/2018 4:21 PM PDTFormatting of this note might be different from e original. Patient pain is well controlled and is toe-touch weight bearing. She continues physical erapy. Is on BiPAP at this time and continue to be managed by marine underwriter and hospitalist . No new orthopedics events 1. Pain in prosthetic joint, initial encounter ([facility]) 2. Mechanical complication of prosthetic knee implant, initial encounter ([facility]) 3. Mechanical instability of hip prosthesis ([facility]) 4. Shortness of breath 5. Acute respiratory failure with hypoxia ([facility]) Past Medical History: Diagnosis Date Anxiety Anxious depression Arthralgia Arthritis Asthma not using inhalers DDD (degenerative disc disease), lumbar Deliberate self-cutting history of Depression Heartburn Hemorrhage of gastrointestinal tract 2015 upper and lower due ulcers Morbid obesity with BMI of 50.0-59.9, adult ([facility]) Pain in prosthetic joint (HCC) with instability [...] weightbearing Continue DVT prophylaxis Continue hospitalist and marine underwriter management for comorbidities plan will be to eventua lly go to rehab or SNF once cleared by specialist Emilio Moreno 11/02/2018 Moses Solorzano, PT - 11/02/2018 12:59 PM PDT 11/02/18 1259 PT Visit Summary PT Visit Type Missed Visit (patient unavailable) (Tele psych consult in progress) Next Visit Information 11/02, LTHA, 2PA Kush Miller MD - 11/02/2018 7:44 AM PDT [facility] Service: Hospitalist Progress Note Pt: Sylvie Ramsey AGE/SEX: 48 y.o. female ROOM: [facility]- : 1970 PCP: No Physician on file [...] not displayed. Recent Labs Lab 11/02/18 0408 11/01/18 0417 10/31/18 1815 10/31/18 0414 NA 139 140 -- 141 K 3.6 4.0 3.8 3.6 CL 97* 100 -- 101 CO2 38* 36* -- 35* BUN 31* 24 -- 20 CALCIUM 8.7 8.5 -- 8.1* Phosphorus: Lab Results Component Value Date PHOS 3.4 10/31/2018 No results for input(s): LABALBU in the last 168 hours. Recent Labs Lab 11/02/18 0408 11/01/18 0417 10/31/18 0414 MG 2.8* 2.7* 2.3 No results for input(s): AMYLASE in the last 168 hours. No results for input(s): PHART, PO2ART, BGA2AJN, Q1GGHSOO, BEART in the last 168 hours. No results for input(s): APTT, INR, PTT in the last 168 hours. No results for input(s): TSH, T3FREE in the last 168 hours. Invalid input(s): FREET4 No results for input(s): TROPONINT in the last 168 hours. Invalid input(s): CKTOTAL, TROPONINI, CKMBINDEX Microbiology Results (72 hrs) Procedure Component Value Units Date/Time Culture, Respiratory, Lower, Smear [[id number]] Collected: 10/29/181728 Order Status: Completed Lab Status: [...] HELD 48 HOURS. RESULT Testing performed at [facility], [address] [place] [address] Comment: Testing performed at [facility], [address] [place] [address] RADIOLOGY: Recent Results (from the past 360 [...] making capacity - consulted psychiatry. Appreciate recs. marketing project manager to attempt to obtain more information [...] and managing patient and counseling/coordination. Dictation software, m0um0u, used which may contain error for similar [...] continues to be managed by hospitalist and marine underwriter and is currently on BiPAP 1. Pain in prosthetic joint, initial encounter ([facility]) 2. Mechanical complication of prosthetic knee implant, initial encounter ([facility]) 3. Mechanical instability of hip prosthesis ([facility]) 4. Shortness of breath 5. Acute respiratory failure with hypoxia ([facility]) Past Medical History: Diagnosis Date Anxiety Anxious depression Arthralgia Arthritis Asthma not using inhalers DDD (degenerative disc disease), lumbar Deliberate self-cutting history of Depression Heartburn Hemorrhage of gastrointestinal tract 2015 upper and lower due ulcers Morbid obesity with BMI of 50.0-59.9, adult ([facility]) Pain in prosthetic joint (HCC) with instability [...] 12.5 mg 12.5 mg Intravenous Q4H PRN Miha marrufo MD Or diphenhydrAMINE (BENADRYL) capsule 25 [...] PRN Miah Monique MD 10 mg at 10/31/182049 lactulose liquid 30 mL 30 mL Oral [...] Nightly Yuki Pruett MD 8.6 mg at 10/31/182041 traMADol (ULTRAM) tablet 50 mg 50 mg [...] Moreno 11/01/[address] - 11/01/2018 11:17 AM PDT 11/01/18 [...] Assessment Required Follow Up 7 days (11/08 ) Rodney Zheng RD, CD Kush Miller MD - 11/01/2018 7:36 AM PDT [facility] Service: Hospitalist Progress Note Pt: Sylvie [...] (99.3 F) Oral 89 24 95 % 10/31/182026 127/64 36.9 C (98.5 F) Axillary 84 [...] Behavior is normal. LABS: Recent Labs Lab 11/01/18 0417 10/31/18 0414 10/30/18 0418 10/28/18 0835 WBC 14.67* 13.03* 13.87* < > 15.60* HGB 11.1* 10.8* 10.9* < > 11.1* HCT 33.3* 32.1* 32.6* < > 33.1* PLT 380 356 385 < > 296 MONOPCT -- -- -- -- 2.27 < > = values in this interval not displayed. Recent Labs Lab 11/01/187 10/31/18 1815 10/31/1841310/30/18417 NA 140 -- 141 141 [...] hours. No results for input(s): PHART, PO2ART, XXJ4JNM, Z1DOIIEI, BEART in the last 168 hours. No results for input(s): APTT, INR, PTT in the last 168 hours. No results for input(s): TSH, T3FREE in the last 168 hours. Invalid input(s): FREET4 No results for input(s): TROPONINT in the last 168 hours. Invalid input(s): CKTOTAL, TROPONINI, CKMBINDEX Microbiology Results (72 hrs) Procedure Component Value Units Date/Time Culture, Respiratory, Lower, Smear [[id number]] Collected: 10/29/181728 Order Status: Completed Lab Status: [...] HELD 48 HOURS. RESULT Testing performed at [facility], [address] [place] [address] Comment: Testing performed at [facility], [address] [place] [address] RADIOLOGY: Recent Results (from the past 360 [...] and managing patient and counseling/coordination. Dictation software, m0um0u, used which may contain error for similar sounding words even af ter review. Personal communication requested for any clarification. Portions of this chart may have been copied from previous notes for continuity of care purp ose Juan Gonzales RN - 11/01/2018 6:52 AM PDTPt remains [...] time. Education and reminders given for HOB elevat ed for maximal lung expansion. Becomes dyspneic [...] 1. Pain in prosthetic joint, initial encounter ([facility]) 2. Mechanical complication of prosthetic knee implant, initial encounter ([facility]) 3. Mechanical instability of hip prosthesis (HCC) [...] mg 1,000 mg Oral Q2H PRN Miah rdo MD 1,000 mg at 10/27/18 0924 calcium [...] dressing clean dry and intact Ankle strength 07/09 48 y/o female s/p left total hip arthroplasty revision pain medications prn Touch down weight bearing dvt prophylaxis continue hospital and pulm care No change in ortho plan Emilio Moreno 10/31/2018 Sara Delvalle RN - 10/31/2018 8:23 AM PDTChart reviewed. Kush Miller MD - 10/31/2018 8:07 AM PDT [facility] Service: Hospitalist Progress Note Pt: Sylvie [...] Behavior is normal. LABS: Recent Labs Lab 10/31/18 0414 10/30/18 0418 10/29/18 0439 10/28/18 0835 WBC 13.03* 13.87* 15.10* 15.60* HGB [...] hours. No results for input(s): PHART, PO2ART, AMS5ZSA, O0HDAVOS, BEART in the last 168 hours. No results for input(s): APTT, INR, PTT in the last 168 hours. No results for input(s): TSH, T3FREE in the last 168 hours. Invalid input(s): FREET4 No results for input(s): TROPONINT in the last 168 hours. Invalid input(s): CKTOTAL, TROPONINI, CKMBINDEX Microbiology Results (72 hrs) Procedure Component Value Units Date/Time Culture, Respiratory, Lower, Smear [[id number]] Collected: 10/29/181728 Order Status: Completed Lab Status: [...] HELD 48 HOURS. RESULT Testing performed at [facility], [address] [place] [address] Comment: Testing performed at [facility], [address] [place] [address] RADIOLOGY: Recent Results (from the past 360 [...] No unexpected postoperative findings. Dictated by: Korina Gabrile George Signed by: Korina Machado Michael Sign [...] and managing patient and counseling/coordination. Dictation software, m0um0u, used which may contain error for similar sounding words even af ter review. Personal communication requested for any clarification. Portions of this chart may have been copied from previous notes for continuity of care purp ose Juan Gonzaels RN - 10/31/2018 6:47 AM PDTUnable to [...] complication of prosthetic knee implant, initial encounter ([facility]) 3. Mechanical instability of hip prosthesis ([facility]) 4. Shortness of breath 5. Acute respiratory failure with hypoxia ([facility]) Past Medical History: Diagnosis Date Anxiety Anxious [...] 25 mg 25 mg Oral Q4H PRN Maih Monique MD Or diphenhydrAMINE (BENADRYL) 12.5 mg/5 [...] Code status: Full code Emilio Moreno 10/30/2018 uki Pruett MD - 10/30/2018 7:58 AM PDTFormatting of this note might be different from the origin [facility] Service: Hospitalist Progress Note Hospital Day: [...] in this interval not displayed. Recent Labs 10/30/18 0418 10/29/18 0439 10/28/18 0835 10/27/18 1323 GLU 86 90 99 94 Recent Labs 10/28/18 0835 BNP 101.07* No results for input(s): PROTIME, INR, PTT in the last 168 hours. No results for input(s): IRON, TIBC, PCTSAT, FERRITIN, TSH, [id number], FOLATE in the last 168 hours. Recent [...] continue nicotine patch. Deconditioning. Physical therapy recommended senior care facility when stable. Plan discussed with patient. All questions were answered . All data was reviewed. Disposition: Inpatient Code Status: Full Code Yuki Pruett MD 10/30/2018 8:02 This entry has been created using [employer] Speech Recognition software and [employer]. The entry has been reviewed and there may still exist sound alike word errors. Kellee Diego i, RN - 10/30/2018 6:48 AM PDTAttempted to put patient on high flow 02 x2 attempts. Was u nable to keep 02 above 80's placed patient back on biPAP. Otherwise VSS and hourly rounding uneventful. Chart check complete. Víctor Wells ARNP - 10/29/2018 7:31 PM PDT [facility] Service: Orthopedic Surgery Progress Note 10/29/2018 [...] Status: Full Code WENCESLAO De Guzman 10/29/2018 aJs hayes i RN - 10/29/2018 6:42 PM PDTRemains on [...] PRN trazadone given, states this helped the elvia cristobal in her L leg. Appears comfortable. Sent [...] report any new findings. Gianna Wasserman RN uki Pruett MD - 10/29/2018 7:39 AM PDTFormatting of this note might be different from the origin [facility] Service: Hospitalist Progress Note Hospital Day: [...] normal mood and affect. DATA Recent Labs 10/29/1843810/28/18 0835 WBC 15.10* 15.60* HGB 10.8* 11.1* HCT 31.3* 33.1* PLT 341 296 MCV 90.6 90.1 Recent Labs Lab 10/29/1843810/28/18 0835 10/27/18 1323 NA 138 136 133* K 4.2 4.5 4.8 CL 104 104 101 CO2 27 27 28 ANIONGAP 11 10 9 BUN 17 17 12 CREA 0.8 0.86 0.68 CALCIUM 7.9* 8.1* 8.4* MG 2.1 -- -- Recent Labs 10/29/1843810/28/18 0835 10/27/18 1323 GLU 90 99 94 Recent Labs 10/28/18 0835 BNP 101.07* No results for input(s): PROTIME, INR, PTT in the last 168 hours. No results for input(s): IRON, TIBC, PCTSAT, FERRITIN, TSH, [id number], FOLATE in the last 168 hours. Recent [...] 7:39 This entry has been created using [employer] Speech Recognition software and [employer]. The entry has been reviewed and there may still exist sound alike word errors. Víctor Wells ARNP - 10/28/2018 5:52 PM PDT . [facility] Service: Orthopedic Surgery Progress Note 10/28/2018 [...] ARTHROPLASTY P)continue medical care per hospitalist and marine underwriter. Weight bear as tolerated LLE. Continue PT and OT as tolerated d/t sob Code Status: Full Code WENCESLAO De Guzman 10/28/2018 Naveen Lewis RPH - 10/28/2018 9:27 AM PDT Clinical Pharmacy [...] function. NAVEEN TOURE RPH 9:21 10/28/2018 Pharmacist uki Pruett MD - 10/28/2018 8:21 AM PDTFormatting of [...] for input(s): IRON, TIBC, PCTSAT, FERRITIN, TSH, [id number], FOLATE in the last 168 hours. Recent [...] Donovan Amit Sign Date/Time: 10/27/2018 6:46 PM PROBLEM LIST [...] 10:29 This entry has been created using [employer] Speech Recognition software and [employer]. The entry has been reviewed and there [...] migh t be different from the original. [facility] Adult Hospitalist Event Note Hospital Day: [...] Harpal Fine MD 19:14 10/27/2018 Gina Wahl CRT - 10/27/2018 4:45 PM PDTPt's O2 [...] [facility] Denies dizziness, nausea, cough, chest pain, abdominal pain vomiting or headache 1. Pain in prosthetic joint, initial encounter ([facility]) 2. Mechanical complication of prosthetic knee implant, initial encounter ([facility]) 3. Mechanical instability of hip prosthesis ([facility]) Past Medical History: Diagnosis Date Anxiety Anxious depression Arthralgia Arthritis Asthma not using inhalers DDD (degenerative disc disease), lumbar Deliberate self-cutting history of Depression Heartburn Hemorrhage of gastrointestinal tract 2015 upper and lower due ulcers Morbid obesity with BMI of 50.0-59.9, adult ([facility]) Pain in prosthetic joint ([facility]) with instability Panic attacks states can be [...] Moreno 10/27/2018 Jimena Moore RN - 10/27/2018 5:52 AM PDTPt VSS, ambulating, voiding, medications for pain given, pt complaining of asthma getting worse and a wheeze, called [facility] Rowe tx order ed. New IV placed Chart check complete [...] Community Support Services Current Outpt/Agency/Support Groups: (P) nursing home (specify) Community Agency Name: Other Resources: Discharge Transportation Transportation Needs: (P) family or friend will provide Notes: Electronically signed: LORAINE MANN RN 10/26/2018 13:29 Oscar, Jimena Lowry RN - 10/26/2018 7:31 AM PDTPt VSS, [...] 1. Pain in prosthetic joint, initial encounter ([facility]) 2. Mechanical complication of prosthetic knee implant, initial encounter ([facility]) 3. Mechanical instability of hip prosthesis ([facility]) Past Medical History: Diagnosis Date Anxiety Anxious depression Arthralgia Arthritis Asthma not using inhalers DDD (degenerative disc disease), lumbar Deliberate self-cutting history of Depression Heartburn Hemorrhage of gastrointestinal tract 2015 upper and lower due ulcers Morbid obesity with BMI of 50.0-59.9, adult ([facility]) Pain in prosthetic joint ([facility]) with instability Panic attacks states can be [...] | | | | | | encounter ([facility]) | | | | | | Mechanical | | | | | | complication of | | | | | | prosthetic knee | | | | | | implant, initial | | | | | | encounter ([facility]) | | | | | | Mechanical | | | | | | instability of hip | | | | | | prosthesis (HCC) | | | | | | Shortness of breath | | | | | | Morbid obesity | | | | | | (HCC) [...] | | | | PDT | encounter ([facility]) | results section. | | | | | Mechanical | | | | | | complication of | | | | | | prosthetic knee | | | | | | implant, initial | | | | | | encounter ([facility]) | | + +--------+ + + + | CULTURE, TISSUE, | Routin | 10/24/2018 | Pain in prosthetic | Results for this | | SMEAR, WITH | e | 4:41 PM | joint, initial | procedure are in the | | ANAEROBES | | PDT | encounter ([facility]) | results section. | | | | [...] Needs | | | | | | Fredericke | | | r and | | [...] at | | | | | | [facility], [address] [address] [facility] | | | | | | [place] | | | | | | [address] | | | | + + + + + + + + | Specimen | + + | Blood | + + + + + + + | Performing | Address | City/State/Zipcode | Phone Number | | Organization | | | | + + + + + | [facility] | [address] | [place] [address] | [phone] | + + + + + Magnesium (11/09/2018 4:28 AM PDT) + + + + + + | Component | Value | Ref Range | Performed | Pathologist | | | | | At | Signature | + + + + + + | Magnesium | 2.5 (H)Comment: SPECIMEN | 1.7 - 2.4 mg/dL | [facility] | | | | SLIGHTLY | | [facility] | | | | HEMOLYZEDTesting | | | | | | performed at [facility], [address] | | | | | | [address] [facility], | | | | | | [place] [address] | | | | + + + + + + + + | Specimen | + + | Blood | + + + + + + + | Performing | Address | City/State/Zipcode | Phone Number | | Organization | | | | + + + + + | [facility] | [address] | [place] [address] | [phone] | + + + + + Basic [...] | | | | | performed at [facility], [address] | | | | | | [facility], | | | | | | [place] [address] | | | | + + + + + + + + | Specimen | + + | Blood | + + + + + + + | Performing | Address | City/State/Zipcode | Phone Number | | Organization | | | | + + + + + | [facility] | [address] | [place] [address] | [phone] | + + + + + CBC [...] | | | Absolute | performed at [facility], [address] | K/uL | LABORATORY | | | | [place] [place], | | | | | | [place] [address] | | | | + + + + + + + + | Specimen | + + | Blood | + + + + + + + | Performing | Address | City/State/Zipcode | Phone Number | | Organization | | | | + + + + + | [facility] | [address] | [place] [address] | [phone] | + + + + + Magnesium (11/08/2018 3:56 AM PDT) + + + + + + | Component | Value | Ref Range | Performed | Pathologist | | | | | At | Signature | + + + + + + | Magnesium | 2.7 (H)Comment: Testing | 1.7 - 2.4 mg/dL | [facility] | | | | performed at [facility], [address] | | LABORATORY | | | | [address], | | | | | | [place] [address] | | | | + + + + + + + + | Specimen | + + | Blood | + + + + + + + | Performing | Address | City/State/Zipcode | Phone Number | | Organization | | | | + + + + + | [facility] | [address] | [place] [address] | [phone] | + + + + + Basic [...] | | | | | performed at [facility], [address] | | | | | | [address] [facility], | | | | | | [place] [address] | | | | + + + + + + + + | Specimen | + + | Blood | + + + + + + + | Performing | Address | City/State/Zipcode | Phone Number | | Organization | | | | + + + + + | [facility] | [address] | [place] [address] | [phone] | + + + + + CBC [...] at | | | | | | [facility], [address] | | | | | | [place] | | | | | | [address] | | | | + + + + + + + + | Specimen | + + | Blood | + + + + + + + | Performing | Address | City/State/Zipcode | Phone Number | | Organization | | | | + + + + + | [facility] | [address] | [place] [address] | [phone] | + + + + + Magnesium (11/07/2018 4:11 AM PDT) + + + + + + | Component | Value | Ref Range | Performed | Pathologist | | | | | At | Signature | + + + + + + | Magnesium | 2.5 (H)Comment: Testing | 1.7 - 2.4 mg/dL | [facility] | | | | performed at [facility], [address] | | LABORATORY | | | | [address], | | | | | | [place] [address] | | | | + + + + + + + + | Specimen | + + | Blood | + + + + + + + | Performing | Address | City/State/Zipcode | Phone Number | | Organization | | | | + + + + + | [facility] | [address] | [place] [address] | [phone] | + + + + + Basic [...] 59 (L)Comment: GFR <60: | >60 | [facility] | | | GFR | [...] | | | | | | MDRD [facility] traceable | | | | | | equation.Testing | | | | | | performed at [facility], [address] | | | | | | [facility], | | | | | | [place] [address] | | | | + + + + + + + + | Specimen | + + | Blood | + + + + + + + | Performing | Address | City/State/Zipcode | Phone Number | | Organization | | | | + + + + + | [facility] | [address] | [place] [address] | [phone] | + + + + + Procalcitonin (11/07/2018 4:11 AM PDT) + + + + + + | Component | Value | Ref Range | Performed | Pathologist | | | | | At | Signature | + + + + + + | PROCALCITON | 0.10Comment: | <0.5 ng/mL | [facility] | | [...] | | | | | | at [facility] [place] [address] | | | | | | [facility];[place] [address] | | | | + + + + + + + + | Specimen | + + | Blood | + + + + + + + | Performing | Address | City/State/Zipcode | Phone Number | | Organization | | | | + + + + + | [facility] | [address] | [place] [address] | [phone] | + + + + + CBC with Differential (11/06/2018 4:09 AM PDT) + + + + + + | Component | Value | Ref Range | Performed | Pathologist | | | | | At | Signature | + + + + + + | WBC | 21.02 (H) | 3.80 - 11.00 | [facility] | | | | | K/uL | [...] | | | | TC, [address] [facility] | | | | | | [place] | | | | | | [address] | | | | + + + + + + + + | Specimen | + + | Blood | + + + + + + + | Performing | Address | City/State/Zipcode | Phone Number | | Organization | | | | + + + + + | [facility] | [address] | [place] [address] | [phone] | + + + + + Magnesium (11/06/2018 4:09 AM PDT) + + + + + + | Component | Value | Ref Range | Performed | Pathologist | | | | | At | Signature | + + + + + + | Magnesium | 2.7 (H)Comment: Testing | 1.7 - 2.4 mg/dL | [facility] | | | | performed at [facility], [address] | | LABORATORY | | | | [address], | | | | | | [place] [address] | | | | + + + + + + + + | Specimen | + + | Blood | + + + + + + + | Performing | Address | City/State/Zipcode | Phone Number | | Organization | | | | + + + + + | [facility] | [address] | [place] [address] | [phone] | + + + + + Basic [...] | | | | | performed at [facility], [address] | | | | | | [facility], | | | | | | [place] [address] | | | | + + + + + + + + | Specimen | + + | Blood | + + + + + + + | Performing | Address | City/State/Zipcode | Phone Number | | Organization | | | | + + + + + | [facility] | [address] | [place] [address] | [phone] | + + + + + CBC [...] at | | | | | | [facility], [address] | | | | | | [place] | | | | | | [address] | | | | + + + + + + + + | Specimen | + + | Blood | + + + + + + + | Performing | Address | City/State/Zipcode | Phone Number | | Organization | | | | + + + + + | [facility] | [address] | [place] [address] | [phone] | + + + + + Magnesium (11/05/2018 4:05 AM PDT) + + + + + + | Component | Value | Ref Range | Performed | Pathologist | | | | | At | Signature | + + + + + + | Magnesium | 2.6 (H)Comment: Testing | 1.7 - 2.4 mg/dL | [facility] | | | | performed at [facility], [address] | | LABORATORY | | | | [address], | | | | | | [place] [address] | | | | + + + + + + + + | Specimen | + + | Blood | + + + + + + + | Performing | Address | City/State/Zipcode | Phone Number | | Organization | | | | + + + + + | [facility] | [address] | [place] [address] | [phone] | + + + + + Basic [...] | >60Comment: GFR <60: | >60 | [facility] | | | GFR | [...] | | | | | performed at [facility], [address] | | | | | | [facility], | | | | | | [place] [address] | | | | + + + + + + + + | Specimen | + + | Blood | + + + + + + + | Performing | Address | City/State/Zipcode | Phone Number | | Organization | | | | + + + + + | [facility] | [address] | [place] [address] | [phone] | + + + + + CBC [...] | | | | [facility], [address] [facility] | | | | | | [place] | | | | | | [address] | | | | + + + + + + + + | Specimen | + + | Blood | + + + + + + + | Performing | Address | City/State/Zipcode | Phone Number | | Organization | | | | + + + + + | [facility] | [address] | [place] [address] | [phone] | + + + + + Magnesium (11/04/2018 3:53 AM PDT) + + + + + + | Component | Value | Ref Range | Performed | Pathologist | | | | | At | Signature | + + + + + + | Magnesium | 2.7 (H)Comment: Testing | 1.7 - 2.4 mg/dL | [facility] | | | | performed at [facility], [address] | | LABORATORY | | | | [place] [place], | | | | | | [place] [address] | | | | + + + + + + + + | Specimen | + + | Blood | + + + + + + + | Performing | Address | City/State/Zipcode | Phone Number | | Organization | | | | + + + + + | [facility] | [address] | [place] [address] | [phone] | + + + + + Basic [...] | | | | | | MDRD IDIN traceable | | | | | | equation.Testing | | | | | | performed at [facility], [address] | | | | | | [facility], | | | | | | [place] [address] | | | | + + + + + + + + | Specimen | + + | Blood | + + + + + + + | Performing | Address | City/State/Zipcode | Phone Number | | Organization | | | | + + + + + | [facility] | [address] | [place] [address] | [phone] | + + + + + CBC [...] RBC | NORMAL RBC MORPHComment: | | [facility] | | | Morphology | PLATELET | | LABORATORY | | | | ANISOCYTOSISTesting | | | | | | performed at [facility], [address] | | | | | | [address], | | | | | | [place] [address] | | | | + + + + + + + + | Specimen | + + | Blood | + + + + + + + | Performing | Address | City/State/Zipcode | Phone Number | | Organization | | | | + + + + + | [facility] | [address] | [place] [address] | [phone] | + + + + + Magnesium (11/03/2018 3:58 AM PDT) + + + + + + | Component | Value | Ref Range | Performed | Pathologist | | | | | At | Signature | + + + + + + | Magnesium | 2.7 (H)Comment: Testing | 1.7 - 2.4 mg/dL | [facility] | | | | performed at [facility], [address] | | LABORATORY | | | | [place], | | | | | | [place] [address] | | | | + + + + + + + + | Specimen | + + | Blood | + + + + + + + | Performing | Address | City/State/Zipcode | Phone Number | | Organization | | | | + + + + + | [facility] | [address] | [place] [address] | [phone] | + + + + + Basic [...] | >60Comment: GFR <60: | >60 | [facility] | | | GFR | [...] | | | | | | MDRD [facility] traceable | | | | | | equation.Testing | | | | | | performed at [facility], [address] | | | | | | [facility], | | | | | | [place] [address] | | | | + + + + + + + + | Specimen | + + | Blood | + + + + + + + | Performing | Address | City/State/Zipcode | Phone Number | | Organization | | | | + + + + + | [facility] | [address] | [place] [address] | [phone] | + + + + + CBC [...] at | | | | | | [facility], [address] | | | | | | [place] | | | | | | [address] | | | | + + + + + + + + | Specimen | + + | Blood | + + + + + + + | Performing | Address | City/State/Zipcode | Phone Number | | Organization | | | | + + + + + | [facility] | [address] | [place] [address] | [phone] | + + + + + Magnesium (11/02/2018 4:08 AM PDT) + + + + + + | Component | Value | Ref Range | Performed | Pathologist | | | | | At | Signature | + + + + + + | Magnesium | 2.8 (H)Comment: Testing | 1.7 - 2.4 mg/dL | [facility] | | | | performed at [facility], [address] | | LABORATORY | | | | [address] [place], | | | | | | [place] [address] | | | | + + + + + + + + | Specimen | + + | Blood | + + + + + + + | Performing | Address | City/State/Zipcode | Phone Number | | Organization | | | | + + + + + | [facility] | [address] | [place] [address] | [phone] | + + + + + Basic [...] | | | | | performed at [facility], [address] | | | | | | [address], | | | | | | [place] [address] | | | | + + + + + + + + | Specimen | + + | Blood | + + + + + + + | Performing | Address | City/State/Zipcode | Phone Number | | Organization | | | | + + + + + | [facility] | [address] | [place] [address] | [phone] | + + + + + CBC [...] at | | | | | | [facility], [address] | | | | | | [place] | | | | | | [address] | | | | + + + + + + + + | Specimen | + + | Blood | + + + + + + + | Performing | Address | City/State/Zipcode | Phone Number | | Organization | | | | + + + + + | [facility] | [address] | [place] [address] | [phone] | + + + + + Magnesium (11/01/2018 4:17 AM PDT) + + + + + + | Component | Value | Ref Range | Performed | Pathologist | | | | | At | Signature | + + + + + + | Magnesium | 2.7 (H)Comment: Testing | 1.7 - 2.4 mg/dL | [facility] | | | | performed at [facility], [address] | | LABORATORY | | | | [place], | | | | | | [place] [address] | | | | + + + + + + + + | Specimen | + + | Blood | + + + + + + + | Performing | Address | City/State/Zipcode | Phone Number | | Organization | | | | + + + + + | [facility] | [address] | [place] [address] | [phone] | + + + + + Basic [...] | 8.5 | 8.5 - 10.5 | [facility] | [...] | | | | | | MDRD IDIN traceable | | | | | | equation.Testing | | | | | | performed at [facility], [address] | | | | | | [facility], | | | | | | [place] [address] | | | | + + + + + + + + | Specimen | + + | Blood | + + + + + + + | Performing | Address | City/State/Zipcode | Phone Number | | Organization | | | | + + + + + | [facility] | [address] | [place] [address] | [phone] | + + + + + ANTHONY Profile, Reflex (11/01/2018 4:17 AM PDT) + + + + + + | Component | Value | Ref Range | Performed | Pathologist | | | | | At | Signature | + + + + + + | ANTHONY Screen, | NegativeComment: Testing | Negative | [facility] | | | Qual | performed at [facility] | | LABORATORY | | | | [place] | | | | | | [place] [address] | | | | + + + [...] | | | | | with both AK-3 and | | | | | | [...] | | 3 Antibody | performed by [facility], | | LABORATORY | | | | [place] [address], | | | | | | [facility] [address] | | | | + + + + + + + + | Specimen | + + | Blood | + + + + + + + | Performing | Address | City/State/Zipcode | Phone Number | | Organization | | | | + + + + + | [facility] | [address] | [place] [address] | [phone] | + + + + + Procalcitonin [...] | | | | | | at [facility];[address] | | | | | | [place] [address] | | | | + + + + + + + + | Specimen | + + | Blood | + + + + + + + | Performing | Address | City/State/Zipcode | Phone Number | | Organization | | | | + + + + + | [facility] | [address] | [place] [address] | [phone] | + + + + + Potassium (10/31/2018 6:15 PM PDT) + + + + + + | Component | Value | Ref Range | Performed | Pathologist | | | | | At | Signature | + + + + + + | K | 3.8Comment: Testing | 3.5 - 4.9 | [facility] | | | | performed at [facility];[address] | mmol/L | LABORATORY | | | | [facility], [place] | | | | | | [address] | | | | + + + + + + + + | Specimen | + + | Blood | + + + + + + + | Performing | Address | City/State/Zipcode | Phone Number | | Organization | | | | + + + + + | [facility] | [address] | [place] [address] | [phone] | + + + + + CBC [...] LABORATORY | | | | performed at [facility], [address] | | | | | | [place], | | | | | | [place] [address] | | | | | | | | | | + + + + + + + + | Specimen | + + | Blood | + + + + + + + | Performing | Address | City/State/Zipcode | Phone Number | | Organization | | | | + + + + + | [facility] | [address] | [place] [address] | [phone] | + + + + + Magnesium (10/31/2018 4:14 AM PDT) + + + + + + | Component | Value | Ref Range | Performed | Pathologist | | | | | At | Signature | + + + + + + | Magnesium | 2.3Comment: Testing | 1.7 - 2.4 mg/dL | [facility] | | | | performed at [facility], [address] | | LABORATORY | | | | [place], | | | | | | [place] [address] | | | | + + + + + + + + | Specimen | + + | Blood | + + + + + + + | Performing | Address | City/State/Zipcode | Phone Number | | Organization | | | | + + + + + | [facility] | [address] | [place] [address] | [phone] | + + + + + Basic [...] 8.1 (L) | 8.5 - 10.5 | [facility] | | | | | mg/dL | LABORATORY | | + + + + + + | Estimated | >60Comment: GFR <60: | >60 | [facility] | | | GFR | [...] | | | | | | MDRD [facility] traceable | | | | | | equation.Testing | | | | | | performed at [facility], [address] | | | | | | [facility], | | | | | | [place] [address] | | | | + + + + + + + + | Specimen | + + | Blood | + + + + + + + | Performing | Address | City/State/Zipcode | Phone Number | | Organization | | | | + + + + + | [facility] | [address] | [place] [address] | [phone] | + + + + + Phosphorus (10/31/2018 4:14 AM PDT) + + + + + + | Component | Value | Ref Range | Performed | Pathologist | | | | | At | Signature | + + + + + + | Phosphorus | 3.4Comment: Testing | 2.3 - 4.8 mg/dL | [facility] | | | | performed at [facility], [address] | | LABORATORY | | | | [address], | | | | | | [place] [address] | | | | + + + + + + + + | Specimen | + + | Blood | + + + + + + + | Performing | Address | City/State/Zipcode | Phone Number | | Organization | | | | + + + + + | [facility] | [address] | [place] [address] | [phone] | + + + + + XR [...] LABORATORY | | | | performed at [facility], [address] | | | | | | [address], | | | | | | [place] [address] | | | | | | | | | | + + + + + + + + | Specimen | + + | Blood | + + + + + + + | Performing | Address | City/State/Zipcode | Phone Number | | Organization | | | | + + + + + | [facility] | [address] | [place] [address] | [phone] | + + + + + Magnesium (10/30/2018 4:18 AM PDT) + + + + + + | Component | Value | Ref Range | Performed | Pathologist | | | | | At | Signature | + + + + + + | Magnesium | 2.3Comment: Testing | 1.7 - 2.4 mg/dL | [facility] | | | | performed at [facility], [address] | | LABORATORY | | | [address], | | | | | | [place] [address] | | | | + + + + + + + + | Specimen | + + | Blood | + + + + + + + | Performing | Address | City/State/Zipcode | Phone Number | | Organization | | | | + + + + + | [facility] | [address] | [place] [address] | [phone] | + + + + + Basic [...] | | | | | performed at [facility], [address] | | | | | | [facility], | | | | | | [place] [address] | | | | + + + + + + + + | Specimen | + + | Blood | + + + + + + + | Performing | Address | City/State/Zipcode | Phone Number | | Organization | | | | + + + + + | [facility] | [address] | [place] [address] | [phone] | + + + + + Vitamin D, Deficiency Screen (25-Hydroxy) (10/30/2018 4:18 AM PDT) + + + + + + | Component | Value | Ref Range | Performed | Pathologist | | | | | At | Signature | + + + + + + | Vit D, | <12 (L)Comment: <20 | 30 - 150 ng/mL | [facility] | | | 25-Hydroxy | ng/mL Suggests [...] | | | | | performed at [facility], [address] | | | | | | [facility], | | | | | | [place] [address] | | | | + + + + + + + + | Specimen | + + | Blood | + + + + + + + | Performing | Address | City/State/Zipcode | Phone Number | | Organization | | | | + + + + + | [facility] | [address] | [place] [address] | [phone] | + + + + + Culture, [...] | | | | [facility], [address] [facility] | | LABORATORY | | | | [place], [place], [place] | | | | | | [address]Rrbgdju: Testing | | | | | | performed at [facility], [address] | | | | | | [facility], | | | | | | [place] [address] | | | | + + + + + + + + | Specimen | + + | Body Fluid - Coughed | | sputum specimen | | (specimen) | + + + + + + + | Performing | Address | City/State/Zipcode | Phone Number | | Organization | | | | + + + + + | [facility] | [address] | [place] [address] | [phone] | + + + + + ECHO [...] Testing | 1.7 - 2.4 mg/dL | [facility] | | | | performed at [facility], [address] | | LABORATORY | | | | [address], | | | | | | [place] [address] | | | | + + + + + + + + | Specimen | + + | Blood | + + + + + + + | Performing | Address | City/State/Zipcode | Phone Number | | Organization | | | | + + + + + | [facility] | [address] | [place] [address] | [phone] | + + + + + Basic [...] | | | | | performed at [facility], [address] | | | | | | [place], | | | | | | [place] [address] | | | | + + + + + + + + | Specimen | + + | Blood | + + + + + + + | Performing | Address | City/State/Zipcode | Phone Number | | Organization | | | | + + + + + | [facility] | [address] | [place] [address] | [phone] | + + + + + CBC [...] at | | | | | | [facility], [address] [facility] | | | | | | [place] | | | | | | [address] | | | | + + + + + + + + | Specimen | + + | Blood | + + + + + + + | Performing | Address | City/State/Zipcode | Phone Number | | Organization | | | | + + + + + | [facility] | [address] | [place] [address] | [phone] | + + + + + VAS [...] + + | Performing | Address | City/State/[facility] | Phone Number | | Organization [...] | | | | | | at [facility];[address] | | | | | | [place] [address] | | | | + + + + + + + + | Specimen | + + | Blood | + + + + + + + | Performing | Address | City/State/Zipcode | Phone Number | | Organization | | | | + + + + + | [facility] | [address] | [place] [address] | [phone] | + + + + + B [...] | | LABORATORY | | | | [facility];[address] [facility] | | | | | | Blvd;[place] [address] | | | | + + + + + + + + | Specimen | + + | Blood | + + + + + + + | Performing | Address | City/State/Zipcode | Phone Number | | Organization | | | | + + + + + | [facility] | [address] | [place] [address] | [phone] | + + + + + Basic [...] | >60Comment: GFR <60: | >60 | [facility] | | | GFR | [...] | | | | | performed at [facility];[address] | | | | | | [facility];[place], [place] | | | | | | [address] | | | | + + + + + + + + | Specimen | + + | Blood | + + + + + + + | Performing | Address | City/State/Zipcode | Phone Number | | Organization | | | | + + + + + | [facility] | [address] | [place] [address] | [phone] | + + + + + CBC [...] | | | | | performed at [facility];[address] | | | | | | [address];[place] | | | | | | [address] | | | | + + + + + + + + | Specimen | + + | Blood | + + + + + + + | Performing | Address | City/State/Zipcode | Phone Number | | Organization | | | | + + + + + | [facility] | [address] | [place] [address] | [phone] | + + + + + CT [...] | >60Comment: GFR <60: | >60 | [facility] | | | GFR | [...] | | | | | performed at [facility];[address] | | | | | | [facility];[place], [place] | | | | | | [address] | | | | + + + + + + + + | Specimen | + + | Blood | + + + + + + + | Performing | Address | City/State/Zipcode | Phone Number | | Organization | | | | + + + + + | [facility] | [address] | [place] [address] | [phone] | + + + + + CBC [...] [facility] | | | | performed at [facility], [address] | LABORATORY | | | | [address], | | | | | | [place] [address] | | | | + + + + + + + + | Specimen | + + | Blood | + + + + + + + | Performing | Address | City/State/Zipcode | Phone Number | | Organization | | | | + + + + + | [facility] | [address] | [place] [address] | [phone] | + + + + + ECG [...] | Robin, Tony Results In - 10/27/2018 12:00 PM PDT [...] [facility] | | | | performed at [facility], [address] | | LABORATORY | | | | [address], | | | | | | [place] [address] | | | | + + + + + + + + | Specimen | + + | Blood | + + + + + + + | Performing | Address | City/State/Zipcode | Phone Number | | Organization | | | | + + + + + | [facility] | [address] | [place] [address] | [phone] | + + + + + XR [...] | | | abnormalities are grossly identified. Bench Repair Technician sections are | | | submitted in [...] interpretation was | | | performed by [employer] [facility], [facility], [facility] | | | [place], [place] ([employer] Architect: Víctor Livingston M.D.; | | | CLIA#: [id number]).The technical component was performed by [facility] [employer] | | | [facility], [address] [place] [id number] ([employer] Architect: | | | Nadiya Sharma MD; CLIA# [id number]). Diagnostician: Víctor Livingston | | | MDPathologistElectronically [...] | [facility] | | | Requests | [address] | LAB[address]AT[address] | | | | [address];[place] [address] | | | | + + + [...] RESULT | Testing performed at | | [facility] | | | | [facility], [address] | | LABORATORY | | | | [place], [place] | | | | | | [id number]: Testing | | | | | | performed at [facility], [address] | [address] | [address] [place], [place] | | | | | | [address] | | | | + + + + + + + + | Specimen | + + | | + + + + + + + | Performing | Address | City/State/Zipcode | Phone Number | | Organization | | | | + + + + + | [facility] | [address] [facility] | [place] [address] | [phone] | + + + + + Culture, [...] [facility] | | | | TCL, [address] | | LABORATORY | | | | [place] | | | | | | [id number]: Testing | | | | | | performed at [facility], [address] | | | | | [address], | | | | | | [place] [address] | | | | + + + + + + + + | Specimen | + + | Tissue - Hip joint | | synovium (body | | structure) | + + + + + + + | Performing | Address | City/State/Zipcode | Phone Number | | Organization | | | | + + + + + | [facility] | [address] | [place] [address] | [phone] | + + + + + Type [...] + + + | BB BAND | [id number] | | [facility] | | | | | | LABORATORY | | + + + + + + | [facility] BAND | Testing performed at | | [facility] | | | | [facility] | | LABORATORY | | | | [address];[place] [address] | | | | + + + + + + + + | Specimen | + + | Blood | + + + + + + + | Performing | Address | City/State/Zipcode | Phone Number | | Organization | | | | + + + + + | [facility] | [address] | [place] [address] | [phone] | + + + + + POCT Test, Urine, Qual (10/24/2018 1:27 PM PDT) + + + + + + | Component | Value | Ref Range | Performed | Pathologist | | | | | At | Signature | + + + + + + | HCG, | NEGATIVEComment: Testing | NEG | [facility] | | | Quantitativ | performed at 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 | + + | Pain in prosthetic joint, initial encounter ([facility]) | + + | Mechanical complication of prosthetic knee implant, initial encounter ([facility]) | + + | Shortness of breath [...] 1,000 mg, Oral, ONCE, | | 19 2:33 | | | | | Tue10/24/18 at 1345, For 1 dose, | | PM PDT | | | | | Give [...] (3 times per day), First | | AM PDT | | | | | dose on Tue10/24/18 at 2200 | | | | | | + +-------+ + +---+---+ +-------+ + +---+---+ | Given | 10/31/19 | 1,000 mg | | | | | 19 11:39 | | | | | | PM PDT | | | | +-------+ + +---+---+ | Given | 10/31/19 | 1,000 mg | | | | | 19 6:16 | | | | | | AM [...] nebulizer solution 3 mL | | 19 9:22 | | | | | 3 mL, Nebulization, RT EVERY 4 | | PM PDT | | | | | HOURS PRN, Wheezing, Shortness of | | | | | | | Breath, Starting 10/27/18 at | | | | | | | 0605 | | | | | | + +-------+ +-------+---+---+ +-------+ +-------+---+---+ | Given | 10/28/19 | 3 mLs | | | | | 19 4:36 | | | | | | PM PDT | | | | +-------+ +-------+---+---+ | Given | 10/28/19 | 3 mLs | | | | | 19 10:14 | | | | | | AM [...] at 0700, Do not cut | | AM PDT | | | | | or [...] 9:15 | | | | | | AM PDT | | | | +-------+ +--------+---+---+ | Given | 10/27/19 | 325 mg | | | | | 19 10:47 | | | | | | AM [...] | | | Starting 10/24/18 at 2120, If | | | [...] Administer over 30 Minutes, EVERY | | AM PDT | | | | | 8 [...] | | mL/hr | | | | AM PDT | | | | +---------+ +-----+-------+---+ +---+---+ | | | +---+---+ + +-------+ +--------+---+---+ | celecoxib (CELEBREX) capsule | Given | 10/25/19 | 200 mg | | | | 200 mg 200 mg, Oral, ONCE, Tue | | 19 2:33 | | | | | 10/24/18 at 1345, For 1 dose, | | PM PDT | | | | | Pre-op [...] Oral, 2 TIMES DAILY, | | 19 8:55 | | | | | First dose on Tue10/24/18 at | | PM PDT | | | | | 2145 | | | | | | + +-------+ +--------+---+---+ +-------+ +--------+---+---+ | Given | 10/28/19 | 0.1 mg | | | | | 19 9:15 | | | | | | AM PDT | | | | +-------+ +--------+---+---+ | Given | 10/27/19 | 0.1 mg | | | | | 19 9:10 | | | | | | PM [...] Starting 10/24/18 at 2120, | | | | | [...] mcg 25-50 mcg, Intravenous, | | 19 8:35 | | | | | EVERY 5 MIN PRN, Pain, Initial | | PM PDT | | | | | postop [...] | | | | | | longer, [id number] use of | | | | | [...] mcg | | | | | 19 8:13 | | | | | | PM PDT | | | | +-------+ +--------+---+---+ +---+---+ | | | +---+---+ + +-------+ +-------+---+---+ | furosemide (LASIX) injection 40 | Given | 10/28/19 | 40 mg | | | | mg 40 mg, Intravenous, ONCE, | | 19 8:50 | | | | | 10/27/18 at 1915, For 1 dose | | PM PDT | | | | + +-------+ +-------+---+---+ +---+---+ | | | +---+---+ + +-------+ +-------+---+---+ | furosemide (LASIX) injection 40 | Given | 10/29/19 | 40 mg | | | | mg 40 mg, Intravenous, DAILY, | | 19 8:05 | | | | | First dose on 10/28/18 at 0900 | | AM PDT | | | | + +-------+ +-------+---+---+ +---+---+ | | | +---+---+ + +-------+ +-------+---+---+ | furosemide (LASIX) injection 40 | Given | 11/06/19 | 40 mg | | | | mg 40 mg, Intravenous, 2 TIMES | | 19 9:49 | | | | | DAILY, First dose (after last | | PM PDT | | | | | modification) on 10/28/18 at | | | | | | | 2100 | | | | | | + +-------+ +-------+---+---+ +-------+ +-------+---+---+ | Given | 11/06/19 | 40 mg | | | | | 19 9:46 | | | | | | AM PDT | | | | +-------+ +-------+---+---+ | Given | 11/05/19 | 40 mg | | | | | 19 9:11 | | | | | | PM [...] mg, Oral, 3 TIMES | | 19 8:55 | | | | | DAILY, First dose on Tue10/24/18 | | PM PDT | | | [...] 9:16 | | | | | | AM PDT | | | | +-------+ +--------+---+---+ | Given | 10/27/19 | 200 mg | | | | | 19 9:10 | | | | | | PM [...] 1 tablet, Oral, EVERY 6 | | AM PDT | | | | | HOURS PRN, Pain, Starting Tue | | | | | | | 10/31/18 at 0800 | | | | | | + +-------+ + +---+---+ +-------+ + +---+---+ | Given | 11/02/19 | 1 tablet | | | | | 19 4:19 [...] 0.2-0.6 mg 0.2-0.6 mg, | | 19 8:40 | | | | | Intravenous, EVERY 5 MIN PRN, | | PM PDT | | | | | Pain, Starting Tu10/24/18 at | | | | | | [...] | | | | | | | [id number] use of at least | | | [...] mg | | | | | 19 8:21 | | | | | | PM PDT | | | | +-------+ +--------+---+---+ | Given | 10/25/19 | 0.2 mg | | | | | 19 8:14 | | | | | | PM [...] 3 TIMES DAILY PRN, Anxiety, | | AM PDT | | | | | Starting Tue10/24/18 at 2120 | | | | | | + +-------+ +-------+---+---+ +-------+ +-------+---+---+ | Given | 11/01/19 | 10 mg | | | | | 19 8:50 | | | | | | PM PDT | | | | +-------+ +-------+---+---+ | Given | 10/31/19 | 10 mg | | | | | 19 11:39 | | | | | | PM [...] 100 mL 100 mL, | | 19 6:21 | | | | | Intravenous, ONCE PRN, Other, | | PM PDT | | | | | Starting Tue10/27/18 at 1821, For | | | | | | | 1 dose, Cat Scanner | | | | | | + +-------+ +---------+---+---+ +---+---+ | | | +---+---+ + +---------+ +---+-------+---+ | lactated ringers (LR) infusion | New Bag | 10/26/19 | | 100 | | | at 100 mL/hr, Intravenous, | | 19 5:39 | | mL/hr | | | CONTINUOUS, Starting Tue 19 | | AM PDT | | | | | at 2145, Post-op/Phase II | | | | | | + +---------+ +---+-------+---+ +---+---+ | | | +---+---+ + +-------+ +--------+---+---+ | lactulose liquid 30 mL 30 mL, | Given | 10/30/19 | 30 mLs | | | | Oral, DAILY PRN, Constipation, | | 19 2:12 | | | | | Starting Tue10/24/18 at 2120, If | | PM PDT | | | | | docusate, [...] | | | | | modification) on Tue11/02/18 at | | | | | | [...] mg 0.5 mg, Intravenous, | | 19 4:55 | | | | | ONCE, 10/27/18 at 1700, For 1 | | PM PDT | | | | | dose | | | | | | + +-------+ +--------+---+---+ +---+---+ | | | +---+---+ + +-------+ +-------+---+---+ | methylPREDNISolone sodium | Given | 11/04/19 | 40 mg | | | | succinate (solu-MEDROL) 40 mg/mL | | 19 5:33 | | | | | injection 40 mg 40 mg, | | AM PDT | | | | | Intravenous, [...] mg | | | | | 19 9:53 | | | | | | PM PDT | | | | +-------+ +-------+---+---+ | Given | 11/03/19 | 40 mg | | | | | 19 2:00 | | | | | | PM PDT | | | | +-------+ +-------+---+---+ +---+---+ | | | +---+---+ + +-------+ +-------+---+---+ | methylPREDNISolone sodium | Given | 11/05/19 | 40 mg | | | | succinate (solu-MEDROL) 40 mg/mL | | 19 9:11 | | | | | injection 40 mg 40 mg, | | PM PDT | | | | | Intravenous, EVERY 12 HOURS (2 | | | | | | | times per day), First dose (after | | | | | | | last modification) on Fri | | | | | | | [...] 8:49 | | | | | | AM PDT | | | | +-------+ +-------+---+---+ | Given | 11/04/19 | 40 mg | | | | | 19 10:15 | | | | | | PM PDT | | | | +-------+ +-------+---+---+ +---+---+ | | | +---+---+ + +-------+ +-------+---+---+ | methylPREDNISolone sodium | Given | 11/02/19 | 80 mg | | | | succinate (solu-MEDROL) 62.5 | | 19 1:43 | | | | | mg/mL injection 80 mg 80 mg, | | PM PDT | | [...] 6:27 | | | | | | AM PDT | | | | +-------+ +-------+---+---+ | Given | 11/01/19 | 80 mg | | | | | 19 10:17 | | | | | | PM PDT | | | | +-------+ +-------+---+---+ +---+---+ | | | +---+---+ + +-------+ +-------+---+---+ | methylPREDNISolone sodium | Given | 11/02/19 | 80 mg | | | | succinate (solu-MEDROL) 62.5 | | 19 10:09 | | | | | mg/mL injection 80 mg 80 mg, | | PM PDT | | | | | Intravenous, EVERY 8 HOURS (3 | | | | | | | times per day), First dose (after | | | | | | | last modification) on Tue | | | | | [...] enema, Rectal, ONCE, 11/05/18 | | 19 5:27 | | | | | at 1545, For 1 dose | | PM PDT | | | [...] tablet 10 mg 10 | | 19 3:02 | | | | | mg, Oral, ONCE, e 10/24/18 at | | PM PDT | | | | | 1500, [...] HOURS PRN, Pain, Starting Tue | | AM PDT | | | | | 10/24/18 at 2015, First dose must | | | | [...] 1:32 | | | | | | AM PDT | | | | +-------+ +------+---+---+ | Given | 10/29/19 | 5 mg | | | | | 19 6:10 | | | | | | PM PDT | | | | +-------+ +------+---+---+ +---+---+ | | | +---+---+ + +-------+ +-------+---+---+ | pantoprazole (PROTONIX) DR | Given | 10/28/19 | 40 mg | | | | tablet 40 mg 40 mg, Oral, DAILY | | 19 6:25 | | | | | BEFORE BREAKFAST, First dose on | | AM PDT | | | | | 10/25/18 [...] 5:37 | | | | | | AM PDT | | | | +-------+ +-------+---+---+ | Given | 10/26/19 | 40 mg | | | | | 19 5:33 | | | | | | AM [...] | Intravenous, Administer over 0.5 | | AM PDT | | | | | Hours, [...] 3.375 g 3.375 g, | | 19 3:00 | | mL/hr | | | Intravenous, Administer over 4 | | PM PDT | | | | | Hours, [...] | | mL/hr | | | | AM PDT | | | | +---------+ +---------+-------+---+ | New Bag | 11/02/19 | 3.375 g | 12.5 | | | | 19 10:10 | | mL/hr | | | | PM PDT | | | | +---------+ +---------+-------+---+ [...] PDT | | | | | Starting 10/31/18 at 0829, | | | | | [...] solution Topical, PRN, Other, | | 19 2:40 | | | | | pre-op, Starting 10/24/18 at | | PM PDT | | | | | 1320, [...] | | Constipation, Starting Tue | | AM PDT | | | | | 10/24/18 at 2120, If docusate | | | | | | | ineffective or not ordered, | | | | | | | Post-op/Phase II | | | | | | + +-------+ +--------+---+---+ +-------+ +--------+---+---+ | Given | 10/30/19 | 8.6 mg | | | | | 19 2:12 | | | | | | PM PDT | | | | +-------+ +--------+---+---+ | Given | 10/27/19 | 8.6 mg | | | | | 19 1:16 | | | | | | PM [...] mg, Oral, ONCE, 10/24/18 | | 19 2:34 | | | | | at 1500, For 1 dose, In preop, | | PM PDT | | | | | Pre-op [...] 1,500 mg 1,500 mg, | | 19 2:29 | | mL/hr | | | Intravenous, [...]
--- OUTSIDE RECORDS SUMMARY | ~2019-07-24 | XMS | Encounter Summary ---
Demographics + + + | Address | [address] | | | [place] [address] | + + + | Home Phone | | + + + | Preferred Language | Unknown | + + + | Marital Status | | + + + | Mormon Affiliation | Unknown | + + + | Race | Unknown | + + + | Ethnic Group | Unknown | + + + Author + + + | Author | [facility] | | | and [place] | + + + | Organization | [facility] | | | and [place] | + + + | Address | Unknown | + + + | Phone | Unavailable | + + + Support + + + + + | Name | Relationship | Address | Phone | + + + + + | Fabienne Juarez | ECON | [place] | | | | | [address] | | + + + + + Care Team Providers + +------+ + | Care Flight Data Technician Name | Role | Phone | [...] | REQUEST) | | | | [address] [place], [place] | [address] | | | | | [address] | [place] [address] | | | | | [phone] | [phone] | | | | | | | [...]
--- OUTSIDE RECORDS SUMMARY | ~2019-07-24 | XMS | Encounter Summary ---
Demographics + + + | Address | [address] | | | [place] [address] | + + + | Home Phone | | + + + | Preferred Language | Unknown | + + + | Marital Status | | + + + | Amish Affiliation | Unknown | + + + | Race | Unknown | + + + | Ethnic Group | Unknown | + + + Author + + + | Author | [facility] | | | and Silvestreana | + + + | Organization | [facility] [...] [place] | | | | | [address] | | + + + + + Care Team Providers + +------+ + | [facility] Display Builder Name | Role | Phone | + [...] | | | | encounter | | [address] Phone: | | | | | ([facility]) | | [phone] | | | | | Mechanical | | Fax: | | | | | complication | | [phone] | | | | | of | | | | | | | prosthetic | | | | | | | knee | | | | | | | implant, | | | | | | | initial | | | | | | | encounter | | | | | | | ([facility]) | | | | | | | Procedures | | | | | | | SC REVISE | | | | | | [...] + + | 10/24/ | Surgery | [facility] | Miah Monique | ARTHROPLASTY | | 2018 | | [facility] | MD [address] | REVISION TOTAL HIP | | | | OPERATING RO[address] | [address] | | | | | [address] | [place] [address] | | | | | [place], [place] | [phone] | | | | | [address] | | | | | | [phone] | | | +--------+---------+ + + + [...] underwent a left total hip arthroplasty rev cox monett, comprising of an acetabular component revision. This [...] and psychiatry was consulted. He r psychiatry BANQUET LEAD was also contacted and she was [...] room air #Depression/anxiety/PTSD: -11/03/18 [facility] [phone]. She has a diagnosis of PTSD and [...] TOTAL HIP; Surgeon: Miah Monique MD; Location: [facility] MAIN OR TOTAL HIP ARTHROPLASTY Left [...] * No resolved hospital problems. * Disposition: longterm Condition: Fair Code Status: Full Code Follow up: Miah Monique MD [address] [place] [address] [id number] In 4 weeks For wound re-check and [...] ASA oral tablets Brand Names: Aspirtab, Aspir-Giulia, [employer] Advanced Aspirin, Alejandra Aspirin, Alejandra Aspirin Ext [...] more often than directed. Talk to your toe stripper regarding the use of this medicine in [...] report to your doctor or health career developer as soon as p ossible: allergic reactions [...] (report to your doctor or health career developer if they continue or are bothersome): diarrhea [...] pain, tell your doctor or health career developer if the pain lasts more than 10 [...] prescribed by your doctor or health career developer. Do not take aspirin or aspirin-like medicines [...] ou have any questions. Talk to your toe stripper regarding the use of this medicine in children. Special care may be needed. What side effects may I notice from receiving this medicine? Side effects that you should report to your doctor or health career developer as soon as p ossible: allergic reactions [...] (report to your doctor or health career developer if they continue or are bothersome): cough [...] medicine? Tell your doctor or health career developer if your symptoms do not improve. Do [...] pharmacist, or health care provider. Copyright 2019 [employer] Albuterol; Ipratropium solution for inhalation Brand Name: [...] more often than directed. Talk to your toe stripper regarding the use of this medicine in children. Special care may be needed. What side effects may I notice from receiving this medicine? Side effects that you should report to your doctor or health career developer as soon as p ossible: allergic reactions [...] (report to your doctor or health career developer if they continue or are bothersome): blurred [...] pharmacist, or health care provider. Copyright 2019 [employer] Celecoxib capsules Brand Name: Celebrex What is [...] information carefully each time. Talk to your toe stripper regarding the use of this medicine in children. Special care may be needed. What side effects may I notice from receiving this medicine? Side effects that you should report to your doctor or health career developer as soon as p ossible: allergic reactions [...] (report to your doctor or health career developer if they continue or are bothersome): constipation [...] medicine? Tell your doctor or health career developer if your pain does not get better. [...] talk with your doctor or health career developer. Do not take medicines such as ibuprofen [...] not take at bedtime. Talk to your toe stripper regarding the use of this medicine in children. While this drug m ay be prescribed for selected conditions, precautions do apply. What side effects may I notice from receiving this medicine? Side effects that you should report to your doctor or health career developer as soon as p ossible: blood in [...] (report to your doctor or health career developer if they continue or are bothersome): headache [...] medicine? Visit your doctor or health career developer for regular checks on your progress. Check yo ur blood pressure regularly. Ask your doctor or health career developer what your blood pre ssure should be, [...] information carefully each time. Talk to your toe stripper regarding the use of this medicine in children. Special care may be needed. What side effects may I notice from receiving this medicine? Side effects that you should report to your doctor or health career developer as soon as p ossible: allergic reactions like skin rash, itching or hives, swelling of the face, lips, or tong ue worsening of mood, thoughts or actions of suicide or dying Side effects that usually do not require medical attention (report to your doctor or health career developer if they continue or are bothersome): constipation [...] medicine? Visit your doctor or health career developer for regular checks on your progress. You may want to keep a record at home of how you feel your condition is responding to treatment. You may want to share this information with your doctor or health career developer at each vis it. You should contact your doctor or health career developer if your seizures get worse or if you have any new types of seizures. Do not stop taking this medicine or any of your seiz ure medicines unless instructed by your doctor or health career developer. Stopping your me dicine suddenly can increase [...] should be reported to your health career developer right away. Women who become while using this medicine may enroll in the [place] Drug Registry by calling . [...] information carefully each time. Talk to your toe stripper regarding the use of this medicine in children. Special care may be needed. What side effects may I notice from receiving this medicine? Side effects that you should report to your doctor or health career developer as soon as p ossible: allergic reactions [...] (report to your doctor or health career developer if they continue or are bothersome): constipation [...] to an official disposal site. Contact the [facility] at [phone] or your [facility] government to find a site. If you [...] medicine? Tell your doctor or health career developer if your pain does not go away, [...] pharmacist, or health care provider. Copyright 2019 [employer] Nicotine skin patches Brand Names: Habitrol, Nicoderm [...] the same area again. Talk to your toe stripper regarding the use of this medicine in children. Special care may be needed. What side effects may I notice from receiving this medicine? Side effects that you should report to your doctor or health career developer as soon as p ossible: allergic reactions [...] (report to your doctor or health career developer if they continue or are bothersome): diarrhea [...] only last for a few days. Call [facility] doctor or health career developer if skin redness does not go away after 4 days, if your skin swells, or if you get a rash. If you are a diabetic and you quit smoking, the effects of insulin may be increased and you may need to reduce your insulin dose. Check with your doctor or health career developer ab out how you should adjust your [...] pharmacist, or health care provider. Copyright 2019 [employer] Olanzapine tablets Brand Name: Zyprexa What is [...] information carefully each time. Talk to your toe stripper regarding the use of this medicine in children. While this drug m ay be prescribed for children as young as 13 years for selected conditions, precautions do a pply. What side effects may I notice from receiving this medicine? Side effects that you should report to your doctor or health career developer as soon as p ossible: allergic reactions [...] (report to your doctor or health career developer if they continue or are bothersome): changes [...] medicine? Visit your doctor or health career developer for regular checks on your progress. It may b e several weeks before you see the full effects of this medicine. Notify your doctor or heal th career developer if your symptoms get worse, if you have new symptoms, if you are having an unusual effect from this medicine, or if you feel out of control, very discouraged or th ink you might harm yourself or others. Do not suddenly stop taking this medicine. You may need to gradually reduce the dose. Ask y our doctor or health career developer for advice. You may get dizzy or [...] without asking your doctor or health career developer for advice. Some ingredients can increase possible side effects. Your mouth may get dry. Chewing sugarless gum or sucking hard candy, and drinking plenty of water will help. This medicine can reduce the response of your body to heat or cold. Dress filing machine operator cold weat her and stay hydrated in [...] information carefully each time. Talk to your toe stripper regarding the use of this medicine in children. Special care may be needed. What side effects may I notice from receiving this medicine? Side effects that you should report to your doctor or health career developer as soon as p ossible: allergic reactions [...] (report to your doctor or health career developer if they continue or are bothersome): constipation [...] to an official disposal site. Contact the [facility] at or your [facility] government to find a site. If you cannot return the medicine, flush it down the toilet. Do not use the medicine after the expiration date. What should I tell my health care provider before I take this medicine? They need to know if you have any of these conditions: Notus's disease brain tumor head injury heart disease [...] medicine? Tell your doctor or health career developer if your pain does not go away, [...] pharmacist, or health care provider. Copyright 2019 [employer] Prednisone tablets Brand Names: Deltasone, Predone, Sterapred, [...] avoid any side effects. Talk to your toe stripper regarding the use of this medicine in children. Special care may be needed. What side effects may I notice from receiving this medicine? Side effects that you should report to your doctor or health career developer as soon as p ossible: allergic reactions [...] (report to your doctor or health career developer if they continue or are bothersome): confusion, [...] lk to your doctor or health career developer. You may need to miss a dose [...] if you have any of these conditions: Franklinton's syndrome diabetes glaucoma heart disease high blood [...] medicine? Visit your doctor or health career developer for regular checks on your progress. If [...] surgery, tell your doctor or health career developer that you hav e taken this medicine within the last twelve months. Ask your doctor or health career developer about your diet. You may need to lower the amou nt of salt you eat. This medicine may affect blood sugar levels. If you have diabetes, check with your doctor o r health career developer before you change your diet or the [...] e often than directed. Talk to your toe stripper regarding the use of this medicine in children. While this medici ne may be prescribed for children as young as 2 years for selected conditions, precautions d o apply. What side effects may I notice from receiving this medicine? Side effects that you should report to your doctor or health career developer as soon as p ossible: diarrhea muscle weakness nausea, vomiting unusual weight loss Side effects that usually do not require medical attention (report to your doctor or health career developer if they continue or are bothersome): bloating [...] returning, check with yo doctor or health career developer. NOTE:This sheet is a summary. It may not cover all possible information. If you have questi ons about this medicine, talk to your doctor, pharmacist, or health care provider. Copyright 2019 [employer] Tramadol tablets Brand Name: Ultram What is [...] information carefully each time. Talk to your toe stripper regarding the use of this medicine in children. Special care may be needed. What side effects may I notice from receiving this medicine? Side effects that you should report to your doctor or health career developer as soon as p ossible: allergic reactions [...] (report to your doctor or health career developer if they continue or are bothersome): constipation [...] medicine? Tell your doctor or health career developer if your pain does not go away, [...] days, call your doctor or health career developer. Your mouth may get dry. Chewing sugarless [...] attachments cannot be sent through Care Everywhere.Sepsis (Telugu )Sepsis, Understanding (Telugu)documented in this encounter Medications at Time of [...] arpal Fine MD - 2:29 PM PDT [facility]: Hospitalist Progress Note Pt: Sylvie Ramsey [...] over2 weeks #Depression/anxiety/PTSD: -11/03/18 [facility] with [facility] [phone]. She has a diagnosis of PTSD and [...] MD - 0 11/08/2018 12:00 PM PDT [facility]: Hospitalist Progress Note Pt: Sylvie Ramsey [...] encounter as of 11/08/18-12:01 IMAGING: Reviewed in [facility], no new results. PROBLEM LIST [...] as able #Depression/anxiety/PTSD: -11/03/18 [facility]iscuss[facility] with [facility] [phone]. She has a diagnosis of PTSD and [...] M D - 11/07/2018 2:04 PM PDT [facility]: Hospitalist Progress Note Hospital Day: 14 [...] and psychiat ry was consulted. Her psychiatry BANQUET LEAD was also contacted and she was [...] 11/07/18 0411 PROCALCITONI 0.10 Imaging: Reviewed in [facility], no new results. PROBLEM LIST [...] as tolerated #Depression/anxiety/PTSD: -11/03/18 Discussed [facility] with [facility] [phone]. She has a diagnosis of PTSD and [...] Chambers MD - 11/07/2018 8:06 AM PDT [facility]: PULMONOLOGY Progress Note Date of Admission: [...] TOTAL HIP; Surgeon: Miah Monique MD; Location: [facility] MAIN OR TOTAL HIP ARTHROPLASTY Left [...] might be different from the o javed. [facility]: Orthopedic Surgery Progress Note Hospital Day: [...] MIGDALIA Thompson has created this entry using [employer] and Insights macros. The entry has been reviewed and there may still exist sound alike word errors. Kush Miller MD - 11/06/2018 8:02 AM PDT [facility]: Hospitalist Progress Note Pt: Sylvie Ramsey [...] agitaitation and psychiatry was consulted. Her psychiatry BANQUET LEAD was also contacted and she was [...] hours. No results for input(s): PHART, PO2ART, ALR5UBK, L5SGRSIV, BEART in the last 168 hours. No results for input(s): APTT, INR, PTT in the last 168 hours. No results for input(s): TSH in the last 168 hours. Invalid input(s): T3FREE, FREET4 No results for input(s): TROPONINT in the last 168 hours. Invalid input(s): CKTOTAL, TROPONINI, CKMBINDEX Microbiology Results (72 hrs) Procedure Component Value Units Date/Time Culture, Respiratory, Lower, Smear [[id number]] Collected: 10/29/181728 Order Status: Completed Lab Status: [...] performed at [facility], [address] [place] [address] Comment: Testing performed at [facility], [address] [place] [address] RADIOLOGY: Recent Results (from the past 360 [...] study. Depression/anxiety/ptsd - 11/03/18 [facility] with [facility] [phone]. She has a diagnosis o f PTSD [...] and managing patient and counseling/coordination. Dictation software, [employer], used which may contain error for similar sounding words even af ter review. Personal communication requested for any clarification. Portions of this chart may have been copied from previous notes for continuity of care purp ose Terri Osullivan RN - 11/05/2018 6:19 PM PDTEnd of shift review complete. Donovan Loja PA - 11/05/2018 10:52 AM PDT [facility]: Orthopedic Surgery Progress Note Hospital Day: [...] MIGDALIA Thompson has created this entry using [employer] e and Insights macros. The entry has been reviewed and there may still exist sound alike word errors. Kush Miller MD - 11/05/2018 9:44 AM PDT [facility]: Hospitalist Progress Note Pt: Sylvie Ramsey [...] agitaitation and psychiatry was consulted. Her psychiatry BANQUET LEAD was also contacted and she was [...] hours. No results for input(s): PHART, PO2ART, QFB3DDX, M6CTFTMF, BEART in the last 168 hours. No results for input(s): APTT, INR, PTT in the last 168 hours. No results for input(s): TSH in the last 168 hours. Invalid input(s): T3FREE, FREET4 No results for input(s): TROPONINT in the last 168 hours. Invalid input(s): CKTOTAL, TROPONINI, CKMBINDEX Microbiology Results (72 hrs) Procedure Component Value Units Date/Time Culture, Respiratory, Lower, Smear [[id number]] Collected: 10/29/181728 Order Status: Completed Lab Status: [...] performed at [facility], [address] [place] [address] Comment: Testing performed at [facility], [address] [place] [address] RADIOLOGY: Recent Results (from the past 360 [...] study. Depression/anxiety/ptsd - 11/03/18 [facility] with [facility] [phone]. She has a diagnosis o f PTSD [...] and managing patient and counseling/coordination. Dictation software, [employer], used which may contain error for similar [...] signing off. Please call with any questions/concerns. [phone]. Shanice Rahman RN P DTStump, Lala Pennington [...] thanks for coming by." Lyric e xplained emergency vehicle dispatcher availability days & nights if needed. Pt thanked elvia. Chaplain David Greeney Donovan Belle PA - 11/04/2018 1:02 PM PDT [facility]: Orthopedic Surgery Progress Note Hospital Day: [...] MIGDALIA Thompson has created this entry using [employer] and Insights macros. The entry has been reviewed and there may still exist sound alike word errors. Kush Miller MD - 11/04/2018 11:50 AM PDT [facility]: Hospitalist Progress Note Pt: Sylvie Ramsey [...] hours. No results for input(s): PHART, PO2ART, NUD3YVW, P7NQVNRS, BEART in the last 168 hours. No results for input(s): APTT, INR, PTT in the last 168 hours. No results for input(s): TSH in the last 168 hours. Invalid input(s): T3FREE, FREET4 No results for input(s): TROPONINT in the last 168 hours. Invalid input(s): CKTOTAL, TROPONINI, CKMBINDEX Microbiology Results (72 hrs) Procedure Component Value Units Date/Time Culture, Respiratory, Lower, Smear [[id number]] Collected: 10/29/181728 Order Status: Completed Lab Status: [...] performed at [facility], [address] [place] [address] Comment: Testing performed at [facility], [address] [place] [id number] RADIOLOGY: Recent Results (from the past 360 [...] study. Depression/anxiety/ptsd - 11/03/18 [facility] with [facility] [phone]. She has a diagnosis o f PTSD [...] and managing patient and counseling/coordination. Dictation software, [employer], used which may contain error for similar [...] to have regu lar p.o. Intake. Per music researcher note oxygenation is improving. 1. Pain in prosthetic joint, initial encounter ([facility]) 2. Mechanical complication of prosthetic knee implant, initial encounter ([facility]) 3. Mechanical instability of hip prosthesis ([facility]) 4. Shortness of breath 5. Acute respiratory failure with hypoxia ([facility]) Past Medical History: Diagnosis Date Anxiety Anxious depression Arthralgia Arthritis Asthma not using inhalers DDD (degenerative disc disease), lumbar Deliberate self-cutting history of Depression Heartburn Hemorrhage of gastrointestinal tract 2015 upper and lower due ulcers Morbid obesity with BMI of 50.0-59.9, adult ([facility]) Pain in prosthetic joint ([facility]) with instability Panic attacks states can be [...] doing mobility exercises. Security, risk, pcc, stepdown ten pin bowling centre manager, primary md, and lead rn present with bedside rn. Pt crying and yelling that she doesn't want to "be here". Per elvia finley disruptive/violent pt paperwork filled out. Situation and pt expectations reviewed by risk and ten pin bowling centre manager with pt. Sitter at bedside currently. [...] the room, pt through breakfast tray at [facility]. Dada mares called by bar staff. pt. also stated during session everything [...] might be different f rom the original. [facility]: Hospitalist Progress Note Pt: Sylvie Ramsey AGE/SEX: 48 y.o. female ROOM: [address] [place] [address] : 1970 PCP: No Physician on file [...] hours. No results for input(s): PHART, PO2ART, UUC2TWY, T5LTSEID, BEART in the last 168 hours. No results for input(s): APTT, INR, PTT in the last 168 hours. No results for input(s): TSH, T3FREE in the last 168 hours. Invalid input(s): FREET4 No results for input(s): TROPONINT in the last 168 hours. Invalid input(s): CKTOTAL, TROPONINI, CKMBINDEX Microbiology Results (72 hrs) Procedure Component Value Units Date/Time Culture, Respiratory, Lower, Smear [[id number]] Collected: 10/29/181728 Order Status: Completed Lab Status: [...] RESULT Testing performed at [facility], [address] [place] [id number] Comment: Testing performed at [facility], [address] [place] [address] RADIOLOGY: Recent Results (from the past 360 [...] sleep study. Depression/anxiety/ptsd - [facility] [phone]. She has a diagnosis of PTSD a [...] making capacity - consulted psychiatry. Appreciate recs. launch manager to attempt to obtain more information [...] and managing patient and counseling/coordination. Dictation software, [employer], used which may contain error for similar [...] to be transfer to a hospital in [facility], or that she was going to call the police and maxim the hospital. , lead nurse, case operator and risk not ified. Pt remained calmed [...] time and continue to be managed by music researcher and hospitalist . No new orthopedics events 1. Pain in prosthetic joint, initial encounter (HCC) 2. Mechanical complication of prosthetic knee implant, initial encounter ([facility]) 3. Mechanical instability of hip prosthesis (HCC) 4. Shortness of breath 5. Acute respiratory failure with hypoxia ([facility]) Past Medical History: Diagnosis Date Anxiety Anxious [...] weightbearing Continue DVT prophylaxis Continue hospitalist and music researcher management for comorbidities plan will be to eventua lly go to rehab or SNF once cleared by specialist Emilio Moreno 11/02/2018 Moses Solorzano, PT - 11/02/2018 12:59 PM PDT 11/02/18 1259 PT Visit Summary PT Visit Type Missed Visit (patient unavailable) (Tele psych consult in progress) Next Visit Information 11/02, LTHA, 2PA Kush Miller MD - 11/02/2018 7:44 AM PDT [facility] Service: Hospitalist Progress Note Pt: Sylvie Ramsey [...] hours. No results for input(s): PHART, PO2ART, QHW3SLE, C2BIVAVX, BEART in the last 168 hours. No results for input(s): APTT, INR, PTT in the last 168 hours. No results for input(s): TSH, T3FREE in the last 168 hours. Invalid input(s): FREET4 No results for input(s): TROPONINT in the last 168 hours. Invalid input(s): CKTOTAL, TROPONINI, CKMBINDEX Microbiology Results (72 hrs) Procedure Component Value Units Date/Time Culture, Respiratory, Lower, Smear [[id number]] Collected: 10/29/181728 Order Status: Completed Lab Status: [...] performed at [facility], [address] [place] [address] Comment: Testing performed at [facility], [address] [place] [address] RADIOLOGY: Recent Results (from the past 360 [...] making capacity - consulted psychiatry. Appreciate recs. launch manager to attempt to obtain more information [...] and managing patient and counseling/coordination. Dictation software, Itegria, used which may contain error for similar [...] continues to be managed by hospitalist and music researcher and is currently on BiPAP 1. Pain in prosthetic joint, initial encounter ([facility]) 2. Mechanical complication of prosthetic knee implant, initial encounter ([facility]) 3. Mechanical instability of hip prosthesis ([facility]) 4. Shortness of breath 5. Acute respiratory failure with hypoxia ([facility]) Past Medical History: Diagnosis Date Anxiety Anxious [...] 10 mg 10 mg Oral TID PRN Maih Monique MD 10 mg at 10/31/18 2050 [...] 50 mg 50 mg Oral Q6H PRN Ykui Pruett MD 50 mg at 10/30/18 0313 [...] Miller MD - 11/01/2018 7:36 AM PDT [facility]: Hospitalist Progress Note Pt: Sylvie Ramsey AGE/SEX: 48 y.o. female ROOM: [facility]9119-01 : 1970 PCP: No Physician on [...] hours. No results for input(s): PHART, PO2ART, OWP1TWC, Q8SYUPBL, BEART in the last 168 hours. No results for input(s): APTT, INR, PTT in the last 168 hours. No results for input(s): TSH, T3FREE in the last 168 hours. Invalid input(s): FREET4 No results for input(s): TROPONINT in the last 168 hours. Invalid input(s): CKTOTAL, TROPONINI, CKMBINDEX Microbiology Results (72 hrs) Procedure Component Value Units Date/Time Culture, Respiratory, Lower, Smear [[id number]] Collected: 10/29/181728 Order Status: Completed Lab Status: [...] RESULT Testing performed at [facility], [address] [place] [id number] Comment: Testing performed at [facility], [address] [place] [address] RADIOLOGY: Recent Results (from the past 360 [...] and managing patient and counseling/coordination. Dictation software, Itegria, used which may contain error for similar [...] this time. Education and reminders given for [facility] ed for maximal lung expansion. Becomes dyspneic [...] in prosthetic joint, initial encounter ([facility]) 2. Mechanical complication of prosthetic knee implant, initial encounter ([facility]) 3. Mechanical instability of hip prosthesis ([facility]) 4. Shortness of breath 5. Acute respiratory failure with hypoxia ([facility]) Past Medical History: Diagnosis Date Anxiety Anxious depression Arthralgia Arthritis Asthma not using inhalers DDD (degenerative disc disease), lumbar Deliberate self-cutting history of Depression Heartburn Hemorrhage of gastrointestinal tract 2015 upper and lower due ulcers Morbid obesity with BMI of 50.0-59.9, adult ([facility]) Pain in prosthetic joint (HCC) with instability [...] PRN Fab Vickers 2 puff at 10/27/18 0535 albuterol-ipratropium 2.5-0.5 mg/3 mL nebulizer solution 3 [...] Miller MD - 10/31/2018 8:07 AM PDT [facility]: Hospitalist Progress Note Pt: Sylvie Ramsey [...] hours. No results for input(s): PHART, PO2ART, MLC5YZZ, N6OPTPBF, BEART in the last 168 hours. No results for input(s): APTT, INR, PTT in the last 168 hours. No results for input(s): TSH, T3FREE in the last 168 hours. Invalid input(s): FREET4 No results for input(s): TROPONINT in the last 168 hours. Invalid input(s): CKTOTAL, TROPONINI, CKMBINDEX Microbiology Results (72 hrs) Procedure Component Value Units Date/Time Culture, Respiratory, Lower, Smear [[id number]] Collected: 10/29/181728 Order Status: Completed Lab Status: [...] RESULT Testing performed at [facility], [address] [place] [address] Comment: Testing performed at [facility], [address] [place] [address] RADIOLOGY: Recent Results (from the past 360 [...] and managing patient and counseling/coordination. Dictation software, Itegria, used which may contain error for similar [...] complication of prosthetic knee implant, initial encounter ([facility]) 3. Mechanical instability of hip prosthesis (HCC) [...] might be different from the origin al. [facility]: Hospitalist Progress Note Hospital Day: [...] for input(s): IRON, TIBC, PCTSAT, FERRITIN, TSH, [id number], FOLATE in the last 168 hours. Recent [...] 8:02 This entry has been created using [employer] Speech Recognition software and Kodable. The entry has been reviewed and there may still exist sound alike word errors. Kellee Diego i, RN - 10/30/2018 6:48 AM PDTAttempted to put patient on high flow 02 x2 attempts. Was u nable to keep 02 above 80's placed patient back on biPAP. Otherwise VSS and hourly rounding uneventful. Chart check complete. Víctor Wells ARNP - 10/29/2018 7:31 PM PDT [facility]: Orthopedic Surgery Progress Note 10/29/2018 Hospital [...] note might be different from the origin [facility] Service: Hospitalist Progress Note Hospital Day: LOS: [...] for input(s): IRON, TIBC, PCTSAT, FERRITIN, TSH, [id number], FOLATE in the last 168 hours. Recent [...] 7:39 This entry has been created using [employer] Speech Recognition software and Kodable. The entry has been reviewed and there may still exist sound alike word errors. Baliey Wellsian GUILLERMOP - 10/28/2018 5:52 PM PDT . [facility]: Orthopedic Surgery Progress Note 10/28/2018 Hospital [...] ARTHROPLASTY P)continue medical care per hospitalist and music researcher. Weight bear as tolerated LLE. Continue PT and OT as tolerated d/t sob Code Status: Full Code WENCESLAO De Guzman 10/28/2018 IEMoNaveen manuel [facility] - 10/28/2018 9:27 AM PDT [...] this note might be different from the [facility] Service: Hospitalist Progress Note Hospital [...] for input(s): IRON, TIBC, PCTSAT, FERRITIN, TSH, [id number], FOLATE in the last 168 hours. Recent [...] 10:29 This entry has been created using [employer] Speech Recognition software and Kodable. The entry has been reviewed and there [...] migh t be different from the original. [facility] Adult Hospitalist Event Note Hospital Day: 3 [...] that developed this am after returning from [facility]. Denies dizziness, nausea, cough, chest pain, abdominal pain vomiting or headache 1. Pain in prosthetic joint, initial encounter ([facility]) 2. Mechanical complication of prosthetic knee implant, initial encounter ([facility]) 3. Mechanical instability of hip prosthesis ([facility]) Past Medical History: Diagnosis Date Anxiety Anxious depression Arthralgia Arthritis Asthma not using inhalers DDD (degenerative disc disease), lumbar Deliberate self-cutting history of Depression Heartburn Hemorrhage of gastrointestinal tract 2015 upper and lower due ulcers Morbid obesity with BMI of 50.0-59.9, adult ([facility]) Pain in prosthetic joint ([facility]) with instability Panic attacks states can be [...] and a wheeze, called LUIS A Rowe [facility] ed. New IV placed Chart check complete [...] Community Support Services Current Outpt/Agency/Support Groups: (P) intermediate (specify) Community Agency Name: Other Resources: Discharge [...] in prosthetic joint, initial encounter ([facility]) 2. Mechanical complication of prosthetic knee implant, initial encounter ([facility]) 3. Mechanical instability of hip prosthesis ([facility]) Past Medical History: Diagnosis Date Anxiety Anxious depression Arthralgia Arthritis Asthma not using inhalers DDD (degenerative disc disease), lumbar Deliberate self-cutting history of Depression Heartburn Hemorrhage of gastrointestinal tract 2015 upper and lower due ulcers Morbid obesity with BMI of 50.0-59.9, adult ([facility]) Pain in prosthetic joint ([facility]) with instability Panic attacks states can be [...] | | | | | | encounter ([facility]) | | | | | | Mechanical | | | | | | instability of hip | | | | | | prosthesis ([facility]) | | | | | | Shortness of breath | | | | | | Morbid obesity | | | | | | ([facility]) | | + + +--------+ + + [...] | | | | PDT | encounter ([facility]) | results section. | | | | | Mechanical | | | | | | complication of | | | | | | prosthetic knee | | | | | | implant, initial | | | | | | encounter ([facility]) | | + +--------+ + + + | CULTURE, TISSUE, | Routin | 10/24/2018 | Pain in prosthetic | Results for this | | SMEAR, WITH | e | 4:41 PM | joint, initial | procedure are in the | | ANAEROBES | | PDT | encounter ([facility]) | results section. | | | | | Mechanical | | | | | | complication of | | | | | | prosthetic knee | | | | | | implant, initial | | | | | | encounter ([facility]) | | + +--------+ + + + [...] | | [facility], [address] | | | | | | [place] | | | | | | [address] | | | | + + + + + + + + | Specimen | + + | Blood | + + + + + + + | Performing | Address | City/State/Zipcode | Phone Number | | Organization | | | | + + + + + | [facility] | [address] | [place] [address] | [phone] | + + + + + Magnesium (11/09/2018 4:28 AM PDT) + + + + + + | Component | Value | Ref Range | Performed | Pathologist | | | | | At | Signature | + + + + + + | Magnesium | 2.5 (H)Comment: SPECIMEN | 1.7 - 2.4 mg/dL | [facility] | | | | SLIGHTLY | | LABORATORY | | | | HEMOLYZEDTesting | | | | | | performed at [facility], [address] | | | | | | [place], | | | | | | [place] [address] | | | | + + + + + + + + | Specimen | + + | Blood | + + + + + + + | Performing | Address | City/State/Zipcode | Phone Number | | Organization | | | | + + + + + | [facility] | [address] | [place] [address] | [phone] | + + + + + Basic [...] | >60Comment: GFR <60: | >60 | [facility] | | | GFR | [...] W | | | | | | [facility], | | | | | | [place] [address] | | | | + + + + + + + + | Specimen | + + | Blood | + + + + + + + | Performing | Address | City/State/Zipcode | Phone Number | | Organization | | | | + + + + + | [facility] | [address] | [place] [address] | [phone] | + + + + + CBC [...] K/uL | LABORATORY | | | | [place], | | | | | | [place] [address] | | | | + + + + + + + + | Specimen | + + | Blood | + + + + + + + | Performing | Address | City/State/Zipcode | Phone Number | | Organization | | | | + + + + + | [facility] | [address] | [place] [address] | [phone] | + + + + + Magnesium (11/08/2018 3:56 AM PDT) + + + + + + | Component | Value | Ref Range | Performed | Pathologist | | | | | At | Signature | + + + + + + | Magnesium | 2.7 (H)Comment: Testing | 1.7 - 2.4 mg/dL | [facility] | | | | performed at [facility], [address] | | LABORATORY | | | | [place], | | | | | | [place] [address] | | | | + + + + + + + + | Specimen | + + | Blood | + + + + + + + | Performing | Address | City/State/Zipcode | Phone Number | | Organization | | | | + + + + + | [facility] | [address] | [place] [address] | [phone] | + + + + + Basic [...] | >60Comment: GFR <60: | >60 | [facility] | | | GFR | [...] W | | | | | | [facility], | | | | | | [place] [address] | | | | + + + + + + + + | Specimen | + + | Blood | + + + + + + + | Performing | Address | City/State/Zipcode | Phone Number | | Organization | | | | + + + + + | [facility] | [address] | [place] [address] | [phone] | + + + + + CBC [...] | | | [facility], [address] [facility] | | | | | | [place] | | | | | | [address] | | | | + + + + + + + + | Specimen | + + | Blood | + + + + + + + | Performing | Address | City/State/Zipcode | Phone Number | | Organization | | | | + + + + + | [facility] | [address] | [place] [address] | [phone] | + + + + + Magnesium (11/07/2018 4:11 AM PDT) + + + + + + | Component | Value | Ref Range | Performed | Pathologist | | | | | At | Signature | + + + + + + | Magnesium | 2.5 (H)Comment: Testing | 1.7 - 2.4 mg/dL | [facility] | | | | performed at [facility], [address] | | LABORATORY | | | | [place], | | | | | | [place] [address] | | | | + + + + + + + + | Specimen | + + | Blood | + + + + + + + | Performing | Address | City/State/Zipcode | Phone Number | | Organization | | | | + + + + + | [facility] | [address] | [place] [address] | [phone] | + + + + + Basic [...] 59 (L)Comment: GFR <60: | >60 | [facility] | | | GFR | [...] W | | | | | | [facility], | | | | | | [place] [address] | | | | + + + + + + + + | Specimen | + + | Blood | + + + + + + + | Performing | Address | City/State/Zipcode | Phone Number | | Organization | | | | + + + + + | [facility] | [address] | [place] [address] | [phone] | + + + + + Procalcitonin [...] | | | | | | at [facility];[address] | | | | | | [address];[place] [address] | | | | + + + + + + + + | Specimen | + + | Blood | + + + + + + + | Performing | Address | City/State/Zipcode | Phone Number | | Organization | | | | + + + + + | [facility] | [address] | [place] [address] | [phone] | + + + + + CBC [...] | | | [facility], [address] [facility] | | | | | | [place] | | | | | | [address] | | | | + + + + + + + + | Specimen | + + | Blood | + + + + + + + | Performing | Address | City/State/Zipcode | Phone Number | | Organization | | | | + + + + + | [facility] | [address] | [place] [address] | [phone] | + + + + + Magnesium (11/06/2018 4:09 AM PDT) + + + + + + | Component | Value | Ref Range | Performed | Pathologist | | | | | At | Signature | + + + + + + | Magnesium | 2.7 (H)Comment: Testing | 1.7 - 2.4 mg/dL | [facility] | | | | performed at [facility], [address] | | LABORATORY | | | | [place], | | | | | | [place] [address] | | | | + + + + + + + + | Specimen | + + | Blood | + + + + + + + | Performing | Address | City/State/Zipcode | Phone Number | | Organization | | | | + + + + + | [facility] | [address] | [place] [address] | [phone] | + + + + + Basic [...] W | | | | | | [facility], | | | | | | [place] [address] | | | | + + + + + + + + | Specimen | + + | Blood | + + + + + + + | Performing | Address | City/State/Zipcode | Phone Number | | Organization | | | | + + + + + | [facility] | [address] | [place] [address] | [phone] | + + + + + CBC [...] | | | [facility], [address] [facility] | | | | | | [place] | | | | | | [address] | | | | + + + + + + + + | Specimen | + + | Blood | + + + + + + + | Performing | Address | City/State/Zipcode | Phone Number | | Organization | | | | + + + + + | [facility] | [address] | [place] [address] | [phone] | + + + + + Magnesium (11/05/2018 4:05 AM PDT) + + + + + + | Component | Value | Ref Range | Performed | Pathologist | | | | | At | Signature | + + + + + + | Magnesium | 2.6 (H)Comment: Testing | 1.7 - 2.4 mg/dL | [facility] | | | | performed at [facility], [address] | | LABORATORY | | | | [address] [place], | | | | | | [place] [address] | | | | + + + + + + + + | Specimen | + + | Blood | + + + + + + + | Performing | Address | City/State/Zipcode | Phone Number | | Organization | | | | + + + + + | [facility] | [address] | [place] [address] | [phone] | + + + + + Basic [...] | >60Comment: GFR <60: | >60 | [facility] | | | GFR | [...] W | | | | | | [facility], | | | | | | [place] [address] | | | | + + + + + + + + | Specimen | + + | Blood | + + + + + + + | Performing | Address | City/State/Zipcode | Phone Number | | Organization | | | | + + + + + | [facility] | [address] | [place] [address] | [phone] | + + + + + CBC [...] | | | | [facility], [address] [place] [address] | | | | | | [address], [place], [place] | | | | | | [address] | | | | + + + + + + + + | Specimen | + + | Blood | + + + + + + + | Performing | Address | City/State/Zipcode | Phone Number | | Organization | | | | + + + + + | [facility] | [address] | [place] [address] | [phone] | + + + + + Magnesium [...] | | | | | [place] [address] | | | | + + + + + + + + | Specimen | + + | Blood | + + + + + + + | Performing | Address | City/State/Zipcode | Phone Number | | Organization | | | | + + + + + | [facility] | [address] | [place] [address] | [phone] | + + + + + Basic [...] | | | | | | MDRD IDMT traceable | | | | | | equation.Testing | | | | | | performed at [facility], [address] | | | | | | [facility], | | | | | | [place] [address] | | | | + + + + + + + + | Specimen | + + | Blood | + + + + + + + | Performing | Address | City/State/Zipcode | Phone Number | | Organization | | | | + + + + + | [facility] | [address] | [place] [address] | [phone] | + + + + + CBC [...] | | performed at [facility], [address] | | | | | | [place], | | | | | | [place] [address] | | | | + + + + + + + + | Specimen | + + | Blood | + + + + + + + | Performing | Address | City/State/Zipcode | Phone Number | | Organization | | | | + + + + + | [facility] | [address] | [place] [address] | [phone] | + + + + + Magnesium (11/03/2018 3:58 AM PDT) + + + + + + | Component | Value | Ref Range | Performed | Pathologist | | | | | At | Signature | + + + + + + | Magnesium | 2.7 (H)Comment: Testing | 1.7 - 2.4 mg/dL | [facility] | | | | performed at [facility], [address] | | LABORATORY | | | | [address] [place], | | | | | | [place] [address] | | | | + + + + + + + + | Specimen | + + | Blood | + + + + + + + | Performing | Address | City/State/Zipcode | Phone Number | | Organization | | | | + + + + + | [facility] | [address] | [place] [address] | [phone] | + + + + + Basic [...] W | | | | | | [facility], | | | | | | [place] [address] | | | | + + + + + + + + | Specimen | + + | Blood | + + + + + + + | Performing | Address | City/State/Zipcode | Phone Number | | Organization | | | | + + + + + | [facility] | [address] | [place] [address] | [phone] | + + + + + CBC [...] | | | | [facility], [address] [place] [address] | | | | | | [place] | | | | | | [address] | | | | + + + + + + + + | Specimen | + + | Blood | + + + + + + + | Performing | Address | City/State/Zipcode | Phone Number | | Organization | | | | + + + + + | [facility] | [address] | [place] [address] | [phone] | + + + + + Magnesium [...] | | | | | [place] [address] | | | | + + + + + + + + | Specimen | + + | Blood | + + + + + + + | Performing | Address | City/State/Zipcode | Phone Number | | Organization | | | | + + + + + | [facility] | [address] | [place] [address] | [phone] | + + + + + Basic [...] | 8.7 | 8.5 - 10.5 | [facility] | | | | | mg/dL | LABORATORY | | + + + + + + | Estimated | >60Comment: GFR <60: | >60 | [facility] | | | GFR | [...] W | | | | | | [facility], | | | | | | [place] [address] | | | | + + + + + + + + | Specimen | + + | Blood | + + + + + + + | Performing | Address | City/State/Zipcode | Phone Number | | Organization | | | | + + + + + | [facility] | [address] | [place] [address] | [phone] | + + + + + CBC [...] | | | [facility], [address] [facility] | | | | | | [place] | | | | | | [address] | | | | + + + + + + + + | Specimen | + + | Blood | + + + + + + + | Performing | Address | City/State/Zipcode | Phone Number | | Organization | | | | + + + + + | [facility] | [address] | [place] [address] | [phone] | + + + + + Magnesium (11/01/2018 4:17 AM PDT) + + + + + + | Component | Value | Ref Range | Performed | Pathologist | | | | | At | Signature | + + + + + + | Magnesium | 2.7 (H)Comment: Testing | 1.7 - 2.4 mg/dL | [facility] | | | | performed at [facility], [address] | | LABORATORY | | | | [address], | | | | | | [place] [address] | | | | + + + + + + + + | Specimen | + + | Blood | + + + + + + + | Performing | Address | City/State/Zipcode | Phone Number | | Organization | | | | + + + + + | [facility] | [address] | [place] [address] | [phone] | + + + + + Basic [...] [address], | | | | | | [place] [address] | | | | + + + + + + + + | Specimen | + + | Blood | + + + + + + + | Performing | Address | City/State/Zipcode | Phone Number | | Organization | | | | + + + + + | [facility] | [address] [facility] | [place] [address] | [phone] | + + + + + ANTHONY Profile, Reflex (11/01/2018 4:17 AM PDT) + + + + + + | Component | Value | Ref Range | Performed | Pathologist | | | | | At | Signature | + + + + + + | ANTHONY Screen, | NegativeComment: Testing | Negative | [facility] | | | Qual | performed at [facility] | | LABORATORY | | | | [place], [address] | | | | | | [place] [address] | | | | + + + [...] | | | | | with both SC-3 and | | | | | | [...] | | | | | [place] [address] | | | | + + + + + + + + | Specimen | + + | Blood | + + + + + + + | Performing | Address | City/State/Zipcode | Phone Number | | Organization | | | | + + + + + | [facility] | [address] | [place] [address] | [phone] | + + + + + Procalcitonin (11/01/2018 4:17 AM PDT) + + + + + + | Component | Value | Ref Range | Performed | Pathologist | | | | | At | Signature | + + + + + + | PROCALCITON | 1.18 (H)Comment: | <0.5 ng/mL | [facility] | | | IN | [...] | | | | | | at [facility];[address] [place] [address] | | | | | | [facility];[place] [address] | | | | + + + + + + + + | Specimen | + + | Blood | + + + + + + + | Performing | Address | City/State/Zipcode | Phone Number | | Organization | | | | + + + + + | [facility] | [address] | [place] [address] | [phone] | + + + + + Potassium [...] | LABORATORY | | | | [address];[place], [place] | | | | | | [address] | | | | + + + + + + + + | Specimen | + + | Blood | + + + + + + + | Performing | Address | City/State/Zipcode | Phone Number | | Organization | | | | + + + + + | [facility] | [address] [facility] | [place] [address] | [phone] | + + + + + CBC [...] | | | | | [place] [address] | | | | | | | | | | + + + + + + + + | Specimen | + + | Blood | + + + + + + + | Performing | Address | City/State/Zipcode | Phone Number | | Organization | | | | + + + + + | [facility] [facility] | [address] | [place] [address] | [phone] | + + + + + Magnesium (10/31/2018 4:14 AM PDT) + + + + + + | Component | Value | Ref Range | Performed | Pathologist | | | | | At | Signature | + + + + + + | Magnesium | 2.3Comment: Testing | 1.7 - 2.4 mg/dL | [facility] | | | | performed at [facility], [address] | | LABORATORY | | | | [place], | | | | | | [place] [address] | | | | + + + + + + + + | Specimen | + + | Blood | + + + + + + + | Performing | Address | City/State/Zipcode | Phone Number | | Organization | | | | + + + + + | [facility] | [address] | [place] [address] | [phone] | + + + + + Basic [...] W | | | | | | [facility], | | | | | | [place] [address] | | | | + + + + + + + + | Specimen | + + | Blood | + + + + + + + | Performing | Address | City/State/Zipcode | Phone Number | | Organization | | | | + + + + + | [facility] | [address] | [place] [address] | [phone] | + + + + + Phosphorus (10/31/2018 4:14 AM PDT) + + + + + + | Component | Value | Ref Range | Performed | Pathologist | | | | | At | Signature | + + + + + + | Phosphorus | 3.4Comment: Testing | 2.3 - 4.8 mg/dL | [facility] | | | | performed at [facility], [address] | | LABORATORY | | | | [facility], | | | | | | [place] [address] | | | | + + + + + + + + | Specimen | + + | Blood | + + + + + + + | Performing | Address | City/State/Zipcode | Phone Number | | Organization | | | | + + + + + | [facility] | [address] | [place] [address] | [phone] | + + + + + XR [...] | | | | | | [place] [address] | | | | | | | | | | + + + + + + + + | Specimen | + + | Blood | + + + + + + + | Performing | Address | City/State/Zipcode | Phone Number | | Organization | | | | + + + + + | [facility] | [address] | [place] [address] | [phone] | + + + + + Magnesium (10/30/2018 4:18 AM PDT) + + + + + + | Component | Value | Ref Range | Performed | Pathologist | | | | | At | Signature | + + + + + + | Magnesium | 2.3Comment: Testing | 1.7 - 2.4 mg/dL | [facility] | | | | performed at [facility], [address] | | LABORATORY | | | | [place] [address], | | | | | | [place] [address] | | | | + + + + + + + + | Specimen | + + | Blood | + + + + + + + | Performing | Address | City/State/Zipcode | Phone Number | | Organization | | | | + + + + + | [facility] | [address] | [place] [address] | [phone] | + + + + + Basic [...] | >60Comment: GFR <60: | >60 | [facility] | | | GFR | [...] W | | | | | | [facility], | | | | | | [place] [address] | | | | + + + + + + + + | Specimen | + + | Blood | + + + + + + + | Performing | Address | City/State/Zipcode | Phone Number | | Organization | | | | + + + + + | [facility] | [address] | [place] [address] | [phone] | + + + + + Vitamin D, Deficiency Screen (25-Hydroxy) (10/30/2018 4:18 AM PDT) + + + + + + | Component | Value | Ref Range | Performed | Pathologist | | | | | At | Signature | + + + + + + | Vit D, | <12 (L)Comment: <20 | 30 - 150 ng/mL | [facility] | | | 25-Hydroxy | [...] W | | | | | | [facility], | | | | | | [place] [address] | | | | + + + + + + + + | Specimen | + + | Blood | + + + + + + + | Performing | Address | City/State/Zipcode | Phone Number | | Organization | | | | + + + + + | [facility] | [address] [facility] | [place] [address] | [phone] | + + + + + Culture, [...] | | | | [facility], [address] [facility] | | LABORATORY | | | | [place] | | | | | | [address]Vitltpc: Testing | | | | | | performed at [facility], [address] | | | | | | [place], | | | | | | [place] [address] | | | | + + + + + + + + | Specimen | + + | Body Fluid - Coughed | | sputum specimen | | (specimen) | + + + + + + + | Performing | Address | City/State/Zipcode | Phone Number | | Organization | | | | + + + + + | [facility] | [address] | [place] [address] | [phone] | + + + + + ECHO [...] Testing | 1.7 - 2.4 mg/dL | [facility] | | | | performed at [facility], [address] | | LABORATORY | | | | [place], | | | | | | [place] [address] | | | | + + + + + + + + | Specimen | + + | Blood | + + + + + + + | Performing | Address | City/State/Zipcode | Phone Number | | Organization | | | | + + + + + | [facility] | [address] | [place] [address] | [phone] | + + + + + Basic [...] | | | | | | MDRD IDMT traceable | | | | | | equation.Testing | | | | | | performed at [facility], [address] | | | | | | [facility], | | | | | | [place] [address] | | | | + + + + + + + + | Specimen | + + | Blood | + + + + + + + | Performing | Address | City/State/Zipcode | Phone Number | | Organization | | | | + + + + + | [facility] | [address] | [place] [address] | [phone] | + + + + + CBC [...] | | [facility], [address] [facility] | | | | | | [place] | | | | | | [address] | | | | + + + + + + + + | Specimen | + + | Blood | + + + + + + + | Performing | Address | City/State/Zipcode | Phone Number | | Organization | | | | + + + + + | [facility] | [address] | [place] [address] | [phone] | + + + + + VAS [...] | | | | | | at [facility];[address] [place] [address] | | | | | | [facility];[place] [address] | | | | + + + + + + + + | Specimen | + + | Blood | + + + + + + + | Performing | Address | City/State/Zipcode | Phone Number | | Organization | | | | + + + + + | [facility] | [address] | [place] [address] | [phone] | + + + + + B [...] | | LABORATORY | | | | [facility];[address] | | | | [address];[place] [address] | | | | + + + + + + + + | Specimen | + + | Blood | + + + + + + + | Performing | Address | City/State/Zipcode | Phone Number | | Organization | | | | + + + + + | [facility] | [address] | [place] [address] | [phone] | + + + + + Basic [...] | | | | | performed at [facility];[address] | | | | | | [address];[place] | | | | | | [address] | | | | + + + + + + + + | Specimen | + + | Blood | + + + + + + + | Performing | Address | City/State/Zipcode | Phone Number | | Organization | | | | + + + + + | [facility] | [address] | [place] [address] | [phone] | + + + + + CBC [...] | | | | | performed at [facility] | | | | | | [address];[place], [place] | | | | | | [address] | | | | + + + + + + + + | Specimen | + + | Blood | + + + + + + + | Performing | Address | City/State/Zipcode | Phone Number | | Organization | | | | + + + + + | [facility] | [address] | [place] [address] | [phone] | + + + + + CT [...] | >60Comment: GFR <60: | >60 | [facility] | | | GFR | [...] | | | | | | MDRD IDMT traceable | | | | | | equation.Testing | | | | | | performed at [facility] | | | | | | [facility];[place], [place] | | | | | | [address] | | | | + + + + + + + + | Specimen | + + | Blood | + + + + + + + | Performing | Address | City/State/Zipcode | Phone Number | | Organization | | | | + + + + + | [facility] | [address] | [place] [address] | [phone] | + + + + + CBC [...] | | | | | [place] [address] | | | | + + + + + + + + | Specimen | + + | Blood | + + + + + + + | Performing | Address | City/State/Zipcode | Phone Number | | Organization | | | | + + + + + | [facility] | [address] | [place] [address] | [phone] | + + + + + ECG [...] | | | | | [place] [address] | | | | + + + + + + + + | Specimen | + + | Blood | + + + + + + + | Performing | Address | City/State/Zipcode | Phone Number | | Organization | | | | + + + + + | [facility] | [address] | [place] [address] | [phone] | + + + + + XR [...] | | | abnormalities are grossly identified. Speeder Frame Tender sections are | | | submitted in [...] interpretation was | | | performed by [employer], [facility], [facility] | | | [place], [place] (Commercial Singer: Víctor Livingston M.D.; | | | CLIA#: [id number]).The technical component was performed by [employer] | | | [email or web address], [address] [place] [address] (Commercial Singer: | | | Nadiya Sharma MD; CLIA# [id number]). Diagnostician: Víctor Livingston | | | MDPathologistElectronically [...] | | LABORATORY | | | | Blvd;[place] [address] | | | | + + + [...] RESULT | Testing performed at | | [facility] | | | | [facility], [address] [facility] | | LABORATORY | | | | [place] | | | | | | [address]Dibqcif: Testing | | | | | | performed at [facility], [address] | | | | | | [facility] [place] | | | | | | [address] | | | | + + + + + + + + | Specimen | + + | | + + + + + + + | Performing | Address | City/State/Zipcode | Phone Number | | Organization | | | | + + + + + | [facility] | [address] | [place] [address] | [phone] | + + + + + Culture, [...] RESULT | Testing performed at | | [facility] | | | | [facility], [address] [facility] | | LABORATORY | | | | [facility], [place], [place] | | | | | | [id number]: Testing | | | | | | performed at [facility], [address] | | | | | | [facility], | | | | | | [place] [address] | | | | + + + [...] [facility] | [address] | [place] [address] | [phone] | + + + + + Type [...] + + + | BB BAND | [id number] | | [facility] | | | | | | LABORATORY | | + + + + + + | BB BAND | Testing performed at | | [facility] | | | | [facility];[address] | | LABORATORY | | | | Blvd;[place] [address] | | | | + + + + + + + + | Specimen | + + | Blood | + + + + + + + | Performing | Address | City/State/Zipcode | Phone Number | | Organization | | | | + + + + + | [facility] | [address] | [place] [address] | [phone] | + + + + + POCT Test, Urine, Qual (10/24/2018 1:27 PM PDT) + + + + + + | Component | Value | Ref Range | Performed | Pathologist | | | | | At | Signature | + + + + + + | HCG, | NEGATIVEComment: Testing | NEG | [facility] | | | Quantitativ | performed at [facility];[address] | | LABORATORY | | | [address] | [address];[place], [place] | | | | | | [address] | | | | + + + + + + + + | Specimen | + + | | + + + + + + + | Performing | Address | City/State/Zipcode | Phone Number | | Organization | | | | + + + + + | [facility] | [address] | [place] [address] | [phone] | + + + + + documented in this encounter Visit Diagnoses + + | Diagnosis | + + | Pain in prosthetic joint, initial encounter (HCC) | + + | Mechanical complication of prosthetic knee implant, initial encounter ([facility]) | + + documented in this encounter [...]
--- OUTSIDE RECORDS SUMMARY | ~2019-07-24 | XMS | Encounter Summary ---
Demographics + + + | Address | [address] | | | [place] [address] | + + + | Home Phone [...] | Author | [facility] | | | and [place] | + + + | Organization | [facility] | | | and [place] | + + + | Address | Unknown | + + + | Phone | Unavailable | + + + Support + + + + + | Name | Relationship | Address | Phone | + + + + + | Fabienne Juarez | ECON | [place] | | | | | [address] | | + + + + + Care Team Providers + +------+ + | Care Termite Control Servicer Name | Role | Phone | + [...] Left Hip | Shola Sanchez MD | [address] | | | | | Nondisplaced | [address] | [address] | | | | | Fracture of | [address] | [place], [place] | | | | | Artificial | [place], | [address] | | | | | Hip Joint | [place] | Phone: | | | | | | [address] | [phone] | | | | | | Phone: | Fax: | | | | | | [phone] | [phone] | | | | | | Fax: | | | | | | | [phone] | | +--------+--------+ + + + + Encounter Details +--------+---------+ + + + | Date | Type | Department | Care Team | Description | +--------+---------+ + + + | 12/11/ | Office | [facility] | Miah Monique | Status post left hip | | 2019 | Visit | [address] | MD Fab [address] | replacement | | | | [place], [place] | [place] | (Primary Dx) | | | | [address] | [place] [address] | | | | | [phone] | [phone] | | | | | | | [...]
--- OUTSIDE RECORDS SUMMARY | ~2019-07-24 | XMS | Encounter Summary ---
Demographics + + + | Address | [address] | | | [place] [address] | + + + | Home Phone | | + + + | Preferred Language | Unknown | + + + | Marital Status | | + + + | Sabianism Affiliation | Unknown | + + + | Race | Unknown | + + + | Ethnic Group | Unknown | + + + Author + + + | Author | [facility] | | | and [place] | + + + | Organization | [facility] | | | and [place] | + + + | Address | Unknown | + + + | Phone | Unavailable | + + + Support + + + + + | Name | Relationship | Address | Phone | + + + + + | Fabienne Juarez | ECON | [place] | | | | | [address] | | + + + + + Care Team Providers + +------+ + | Care Pond Supervisor Name | Role | Phone | [...] | prosthetic devices, | | | | [address] | [place] [address] | implants and grafts, | | | | [phone] | [phone] | initial encounter | | | | | | ([facility]) | +--------+ + + + + [...]
--- OUTSIDE RECORDS SUMMARY | ~2019-07-24 | XMS | Clinical Summary ---
Demographics + + + | Address | [address] | | | [place] [address] | + + + | Home Phone | | + + + | Preferred Language | Unknown | + + + | Marital Status | | + + + | Islam Affiliation | Unknown | + + + | Race | Unknown | + + + | Ethnic Group | Unknown | + + + Author + + + | Author | [facility] (Historical as of | | | 10-21-18) | + + + | Organization | [facility] (Historical as of | | | 10-21-18) | + + + | Address | Unknown | + + + | Phone | Unavailable | + + + Support + + + + + | Name | Relationship | Address | Phone | + + + + + | Fabienne Juarez | ECON | [place] | | | | | [address] | | + + + + + Care Team Providers + +------+ + | Care Painter Chassis Name | Role | Phone | + [...] Overview: Added automatically from request for surgery [id number] | + + + + + | Mechanical instability of hip prosthesis (HCC) | 09/11/2018 | + + + + + | Overview: Added automatically from request for surgery [id number] | + + Family History + + [...] +------+-------+ + | MEDICAID | [place] | [id number] | | | [address] | | | N | | | | [place] | | | [place] | | | | [address] | | | ASSOCIATE PROFESSOR OF LITERACY | | | | | + +--------+ [...] | 1971 | [phone] | [place] [address] | | | sreekanth | | | [phone] | | + +--------+ +--------+ + +"
--- OUTSIDE RECORDS SUMMARY | ~2019-07-24 | XMS | Encounter Summary ---
Demographics + + + | Address | [address] | | | [place] [address] | + + + | Home Phone | | + + + | Preferred Language | Unknown | + + + | Marital Status | | + + + | Confucianism Affiliation | Unknown | + + + | Race | Unknown | + + + | Ethnic Group | Unknown | + + + Author + + + | Author | [facility] | | | and [place] | + + + | Organization | [facility] | | | and [place] | + + + | Address | Unknown | + + + | Phone | Unavailable | + + + Support + + + + + | Name | Relationship | Address | Phone | + + + + + | Fabienne Juarez | ECON | [place] | | | | | [address] | | + + + + + Care Team Providers + +------+ + | Care Precision Machine Operator Name | Role | Phone | + +------+ + PCP | Unavailable | + +------+ + Encounter Details +--------+ + + + + | Date | Type | Department | Care Team | Description | +--------+ + + + + | 10/06/ | Hospital | [facility] | Conversion | | | 2019 | Encounter | CENTER [facility] | Transaction, | | | | | CLINIC [address] | Provider Unknown | | | | | [place], [place] | | | | | | [address] | | | | | | [phone] | | | +--------+ + + + [...] | | | Screen | performed at [facility] | | LAB | | | | [facility], [place] | | | | | | [address] | | | | + + + [...] NEGATIVE Testing | | | performed at [facility];[address] [place] [address];[place] [address] | | + + + + +---------+ [...] + + + + + + | Red Blood | 4.78 | 3.70 - 5.10 | EXTERNAL | | | Cells | | M/uL | LAB | | | Counted | | | | | + + + + + + | Hemoglobin | 14.7 | 11.3 - 15.5 | [...] | | | Basophils | performed at [facility], [address] | [address] | LAB | | | | [address], | | | | | | [place] [address] | | | | + + + [...] | | | | | performed at [facility], [address] | | | | | | [address], | | | | | | [place] [address] | | | | + + + [...] | | | | | | MDRD [facility] traceable | | | | | | equation.Testing | | | | | | performed at [facility], [address] | | | | | | [facility], | | | | | | [place] [address] | | | | + + + [...]
--- OUTSIDE RECORDS SUMMARY | ~2019-07-24 | XMS | Encounter Summary ---
Demographics + + + | Address | [address] | | | [place] [address] | + + + | Home Phone [...] Author | [facility] | | | and [place] | + + + | Organization | [facility] | [...] [place] | | | | | [address] | | + + + + + Care Team Providers + +------+ + | Care Public Health Social Worker Name | Role | Phone | + +------+ + | Celestine Watters MD | PCP | | + +------+ + Encounter Details +--------+ + + + + | Date | Type | Department | Care Team | Description | +--------+ + + + + | 10/18/ | Orders Only | [facility] | Miha Monique | | | 2018 | | MD Mayur CH[address]VEZ | | | | | [address] | [address] | | | | | [address] | [place] [address] | | | | | [phone] | [phone] | | | | | | | [...] | pathology for further evaluation. Signed by: Korina [...]
--- OUTSIDE RECORDS SUMMARY | ~2019-07-24 | XMS | Encounter Summary ---
Demographics + + + | Address | [address] | | | [place] [address] | + + + | Home Phone [...] + | Author | [facility] | | | and [place] | + + + | Organization | [facility] | | | and [place] | + + + | Address | Unknown | + + + | Phone | Unavailable | + + + Support + + + + + | Name | Relationship | Address | Phone | + + + + + | Fabienne Juarez | ECON | [place] | | | | | [address] | | + + + + + Care Team Providers + +------+ + | Care Matcher Leather Parts Name | Role | Phone | + [...] [address] | | | | | [place] [place], [place] | [place], | | | | | [address] | [place] [address] | | | | | [phone] | [phone] | | | | | | | [...]
--- OUTSIDE RECORDS SUMMARY | ~2019-07-24 | XMS | Encounter Summary ---
Demographics + + + | Address | [address] | | | [place] [address] | + + + | Home Phone | | + + + | Preferred Language | Unknown | + + + | Marital Status | | + + + | Shinto Affiliation | Unknown | + + + | Race | Unknown | + + + | Ethnic Group | Unknown | + + + Author + + + | Author | [facility] | | | and [place] | + + + | Organization | [facility] | | | and [place] | + + + | Address | Unknown | + + + | Phone | Unavailable | + + + Support + + + + + | Name | Relationship | Address | Phone | + + + + + | Fabienne Juarez | ECON | [place] | | | | | [address] | | + + + + + Care Team Providers + +------+ + | Care Toll Test Worker Name | Role | Phone | + +------+ + PCP | Unavailable | + +------+ + Encounter Details +--------+ + + + + | Date | Type | Department | Care Team | Description | +--------+ + + + + | 09/19/ | Hospital | [facility] | Conversion | | | 2019 | Encounter | [facility] [address] | Transaction, | | | | | [address] | Provider Unknown | | | | | [place] | [phone] | | | | | [address] | | | | | | [phone] | | | +--------+ + + + [...]
--- OUTSIDE RECORDS SUMMARY | ~2019-07-24 | XMS | Encounter Summary ---
Demographics + + + | Address | [address] | | | [place] [address] | + + + | Home Phone | | + + + | Preferred Language | Unknown | + + + | Marital Status | | + + + | Episcopal Affiliation | Unknown | + + + | Race | Unknown | + + + | Ethnic Group | Unknown | + + + Author + + + | Author | [facility] | | | and [place] | + + + | Organization | [facility] | | | and [place] | + + + | Address | Unknown | + + + | Phone | Unavailable | + + + Support + + + + + | Name | Relationship | Address | Phone | + + + + + | Fabienne Juarez | ECON | [place] | | | | | [address] | | + + + + + Care Team Providers + +------+ + | Care Technician Automatic Name | Role | Phone | + [...] [address] | | | | | [address] | [place] [address] | | | | | [phone] | [phone] | | | | | | | [...]
--- OUTSIDE RECORDS SUMMARY | ~2019-07-24 | XMS | Encounter Summary ---
Demographics + + + | Address | [address] | | | [place] [address] | + + + | Home Phone | | + + + | Preferred Language | Unknown | + + + | Marital Status | | + + + | Advent Affiliation | Unknown | + + + | Race | Unknown | + + + | Ethnic Group | Unknown | + + + Author + + + | Author | [facility] | | | and [place] | + + + | Organization | [facility] | | | and [place] | + + + | Address | Unknown | + + + | Phone | Unavailable | + + + Support + + + + + | Name | Relationship | Address | Phone | + + + + + | Fabienne Juarez | ECON | [place] | | | | | [address] | | + + + + + Care Team Providers + +------+ + | Care Assembly Hand Name | Role | Phone | + [...] [address] | | | | | [address] [place], [place] | [address] | | | | | [address] | [place] [address] | | | | | [phone] | [phone] | | | | | | | [...]
--- OUTSIDE RECORDS SUMMARY | ~2019-07-24 | XMS | Encounter Summary ---
Demographics + + + | Address | [address] | | | [place] [address] | + + + | Home Phone [...] Author | [facility] | | | and [place] | + + + | Organization | [facility] [...] [place] | | | | | [address] | | + + + + + Care Team Providers + +------+ + | Care Sports Journalist Name | Role | Phone | + [...] Left Hip | Shola Sanchez MD | [address] | | | | | Nondisplaced | [address] | [address] | | | | | Fracture of | [address] | [place], [place] | | | | | Artificial | [place], | [address] | | | | | Hip Joint | [place] | Phone: | | | | | | [address] | [phone] | | | | | | Phone: | Fax: | | | | | | [phone] | [phone] | | | | | | Fax: | | | | | | | [phone] | | +--------+--------+ + + + + Encounter Details +--------+---------+ + + + | Date | Type | Department | Care Team | Description | +--------+---------+ + + + | 12/11/ | Office | [facility] | Miah Monique | Status post left hip | | 2019 | Visit | [address] | MD [address] | replacement | | | | [place], [place] | [address] | (Primary Dx) | | | | [address] | [place] [address] | | | | | [phone] | [phone] | | | | | | | [...]
--- OUTSIDE RECORDS SUMMARY | ~2019-07-24 | XMS | Encounter Summary ---
Demographics + + + | Address | [address] | | | [place] [address] | + + + | Home Phone [...] | Author | [facility] | | | and [place] | + + + | Organization | [facility] | | | and [place] | + + + | Address | Unknown | + + + | Phone | Unavailable | + + + Support + + + + + | Name | Relationship | Address | Phone | + + + + + | Fabienne Juarez | ECON | [place] | | | | | [address] | | + + + + + Care Team Providers + +------+ + | Care Pricing Actuary Name | Role | Phone | + [...] [place] | | | | | [address] | [place] [address] | | | | | [phone] | [phone] | | | | | | | [...]
--- OUTSIDE RECORDS SUMMARY | ~2019-07-24 | XMS | Encounter Summary ---
Demographics + + + | Address | [address] | | | [place] [address] | + + + | Home Phone [...] + | Author | [facility] | | | and [place] | + + + | Organization | [facility] | | | and [place] | + + + | Address | Unknown | + + + | Phone | Unavailable | + + + Support + + + + + | Name | Relationship | Address | Phone | + + + + + | Fabienne Juarez | ECON | [place] | | | | | [address] | | + + + + + Care Team Providers + +------+ + | Care Diabetologist Name | Role | Phone | + [...] (Home Health) | | 2019 | | [facility] [address] | [address] | | | | | [address] [place], [place] | [address] [place] [address] | | | | | [address] | [place] [address] | | | | | [phone] | [phone] | | | | | | | [...]
--- OUTSIDE RECORDS SUMMARY | ~2019-07-24 | XMS | Encounter Summary ---
Demographics + + + | Address | [address] | | | [place] [address] | + + + | Home Phone | | + + + | Preferred Language | Unknown | + + + | Marital Status | | + + + | Jainism Affiliation | Unknown | + + + | Race | Unknown | + + + | Ethnic Group | Unknown | + + + Author + + + | Author | [facility] | | | and [place] | + + + | Organization | [facility] | | | and [place] | + + + | Address | Unknown | + + + | Phone | Unavailable | + + + Support + + + + + | Name | Relationship | Address | Phone | + + + + + | Fabienne Juarez | ECON | [place] | | | | | [address] | | + + + + + Care Team Providers + +------+ + | Care Supervisor Assembly Department Name | Role | Phone | + [...] [address] | [address] | | | | | [address] | [place] | | | | | [place] | [place] [address] | | | | | [address] | [phone] | | | | | [phone] | | | +--------+ + + + [...]
--- OUTSIDE RECORDS SUMMARY | ~2019-07-24 | XMS | Encounter Summary ---
Demographics + + + | Address | [address] | | | [place] [address] | + + + | Home Phone | | + + + | Preferred Language | Unknown | + + + | Marital Status | | + + + | Jew Affiliation | Unknown | + + + | Race | Unknown | + + + | Ethnic Group | Unknown | + + + Author + + + | Author | [facility] | | | and [place] | + + + | Organization | [facility] | | | and [place] | + + + | Address | Unknown | + + + | Phone | Unavailable | + + + Support + + + + + | Name | Relationship | Address | Phone | + + + + + | Fabienne Juarez | ECON | [place] | | | | | [address] | | + + + + + Care Team Providers + +------+ + | Care Quick Sketch Artist Name | Role | Phone | + +------+ + | No, Physician | PCP | Unavailable | + +------+ + Encounter Details +--------+ + + + + | Date | Type | Department | Care Team | Description | +--------+ + + + + | 10/18/ | Hospital | [facility] | Conversion | | | 2019 | Encounter | [facility] | Transaction, | | | | | [address] | Provider Unknown | | | | | [address] [place], [place] | [phone] | | | | | [address] | | | | | | [phone] | | | +--------+ + + + [...]
--- OUTSIDE RECORDS SUMMARY | ~2019-07-24 | XMS | Encounter Summary ---
Demographics + + + | Address | [address] | | | [place] [address] | + + + | Home Phone [...] Author | [facility] | | | and Silvestreana | + + + | Organization | [facility] | | | and [place] | + + + | Address | Unknown | + + + | Phone | Unavailable | + + + Support + + + + + | Name | Relationship | Address | Phone | + + + + + | Fabienne Juarez | ECON | [place] | | | | | [address] | | + + + + + Care Team Providers + +------+ + | Care Forestry Supervisor Name | Role | Phone | [...] | | | | | encounter | [address] | | | | | | (HCC) | Phone: | | | | | | Mechanical | [phone] | | | | | | complication | Fax: | | | | | | of | [phone] | | | | | | prosthetic [...] | ([facility]LY [facility]) | | | + + + + [...] | | | | encounter | | [address] Phone: | | | | | (HCC) | | [phone] | | | | | Mechanical | | Fax: | | | | | complication | | [phone] | | | | | of | [...] | | | | | | | [place] | | | | | | [...] + + | 10/24/ | Hospital | [facility] | iMah Monique | Morbid obesity (HCC) | | 2019 - | Encounter | [facility] | MD [address] | (Primary Dx); Pain | | | | [address] | [address] | in prosthetic joint, | | 11/09/ | | [place], [place] | [place] [address] | initial encounter | | 2019 | | [id number] | [phone] | (HCC); Mechanical | | | | [phone] | | complication of | | | [...] hypoxia | | | | | | (FORM[facility]LY [facility]) | +--------+ + + + + Social [...] underwent a [facility], comprising of an acetabular component revision. This [...] and psychiatry was consulted. He r psychiatry TELECASTING TECHNICIAN was also contacted and she was restarted [...] room air #Depression/anxiety/PTSD: -11/03/18 Discussed patient with [phone]. She has a diagnosis of PTSD and [...] Full Code Follow up: Miah Monique MD [address] [place] [id number] In 4 weeks For wound re-check and [...] more often than directed. Talk to your silk screen frame assembler regarding the use of this medicine in [...] should report to your doctor or health ambulatory care coordinator as soon as p ossible: [...] attention (report to your doctor or health ambulatory care coordinator if they continue or are [...] for pain, tell your doctor or health ambulatory care coordinator if the pain lasts more [...] if prescribed by your doctor or health ambulatory care coordinator. Do not take aspirin or [...] pharmacist, or health care provider. Copyright 2019 [employer] Albuterol inhalation aerosol Brand Names: Proair HFA, [...] ou have any questions. Talk to your silk screen frame assembler regarding the use of this medicine in children. Special care may be needed. What side effects may I notice from receiving this medicine? Side effects that you should report to your doctor or health ambulatory care coordinator as soon as p ossible: [...] attention (report to your doctor or health ambulatory care coordinator if they continue or are [...] this medicine? Tell your doctor or health ambulatory care coordinator if your symptoms do not [...] more often than directed. Talk to your silk screen frame assembler regarding the use of this medicine in children. Special care may be needed. What side effects may I notice from receiving this medicine? Side effects that you should report to your doctor or health ambulatory care coordinator as soon as p ossible: [...] attention (report to your doctor or health ambulatory care coordinator if they continue or are [...] pharmacist, or health care provider. Copyright 2019 [employer] Celecoxib capsules Brand Name: Celebrex What is [...] information carefully each time. Talk to your silk screen frame assembler regarding the use of this medicine in children. Special care may be needed. What side effects may I notice from receiving this medicine? Side effects that you should report to your doctor or health ambulatory care coordinator as soon as p ossible: [...] attention (report to your doctor or health ambulatory care coordinator if they continue or are [...] this medicine? Tell your doctor or health ambulatory care coordinator if your pain does not [...] roke, talk with your doctor or health ambulatory care coordinator. Do not take medicines such [...] pharmacist, or health care provider. Copyright 2019 [employer] Furosemide tablets Brand Names: Active-Medicated Specimen Kit, [...] not take at bedtime. Talk to your silk screen frame assembler regarding the use of this medicine in children. While this drug m ay be prescribed for selected conditions, precautions do apply. What side effects may I notice from receiving this medicine? Side effects that you should report to your doctor or health ambulatory care coordinator as soon as p ossible: [...] attention (report to your doctor or health ambulatory care coordinator if they continue or are [...] this medicine? Visit your doctor or health ambulatory care coordinator for regular checks on your progress. Check yo ur blood pressure regularly. Ask your doctor or health ambulatory care coordinator what your blood pre ssure [...] information carefully each time. Talk to your silk screen frame assembler regarding the use of this medicine in children. Special care may be needed. What side effects may I notice from receiving this medicine? Side effects that you should report to your doctor or health ambulatory care coordinator as soon as p ossible: allergic reactions like skin rash, itching or hives, swelling of the face, lips, or tong ue worsening of mood, thoughts or actions of suicide or dying Side effects that usually do not require medical attention (report to your doctor or health ambulatory care coordinator if they continue or are [...] this medicine? Visit your doctor or health ambulatory care coordinator for regular checks on your progress. You may want to keep a record at home of how you feel your condition is responding to treatment. You may want to share this information with your doctor or health ambulatory care coordinator at each vis it. You should contact your doctor or health ambulatory care coordinator if your seizures get worse or if you have any new types of seizures. Do not stop taking this medicine or any of your seiz ure medicines unless instructed by your doctor or health ambulatory care coordinator. Stopping your me dicine suddenly [...] dying should be reported to your health ambulatory care coordinator right away. Women who become while using this medicine may enroll in the [place]ptic Drug Registry by calling . This registry collects informatio n about the safety of antiepileptic drug use during . NOTE:This sheet is a summary. It may not cover all possible information. If you have questi ons about this medicine, talk to your doctor, pharmacist, or health care provider. Copyright 2019 [employer] Morphine sustained-release tablets Brand Names: ARYMO ER, [...] information carefully each time. Talk to your silk screen frame assembler regarding the use of this medicine in children. Special care may be needed. What side effects may I notice from receiving this medicine? Side effects that you should report to your doctor or health ambulatory care coordinator as soon as p ossible: [...] attention (report to your doctor or health ambulatory care coordinator if they continue or are [...] to an official disposal site. Contact the [facility] at [phone] or your [facility] government to find a site. If [...] this medicine? Tell your doctor or health ambulatory care coordinator if your pain does not [...] pharmacist, or health care provider. Copyright 2019 [employer] Nicotine skin patches Brand Names: Habitrol, Nicoderm [...] the same area again. Talk to your silk screen frame assembler regarding the use of this medicine in children. Special care may be needed. What side effects may I notice from receiving this medicine? Side effects that you should report to your doctor or health ambulatory care coordinator as soon as p ossible: [...] attention (report to your doctor or health ambulatory care coordinator if they continue or are [...] Call [facility] doctor or health ambulatory care coordinator if skin redness does not go away after 4 days, if your skin swells, or if you get a rash. If you are a diabetic and you quit smoking, the effects of insulin may be increased and you may need to reduce your insulin dose. Check with your doctor or health ambulatory care coordinator ab out how you should [...] pharmacist, or health care provider. Copyright 2019 [employer] Olanzapine tablets Brand Name: Zsharifarexa What is [...] information carefully each time. Talk to your silk screen frame assembler regarding the use of this medicine in children. While this drug m ay be prescribed for children as young as 13 years for selected conditions, precautions do a pply. What side effects may I notice from receiving this medicine? Side effects that you should report to your doctor or health ambulatory care coordinator as soon as p ossible: [...] attention (report to your doctor or health ambulatory care coordinator if they continue or are [...] this medicine? Visit your doctor or health ambulatory care coordinator for regular checks on your progress. It may b e several weeks before you see the full effects of this medicine. Notify your doctor or heal th ambulatory care coordinator if your symptoms get worse, if you have new symptoms, if you are having an unusual effect from this medicine, or if you feel out of control, very discouraged or th ink you might harm yourself or others. Do not suddenly stop taking this medicine. You may need to gradually reduce the dose. Ask y our doctor or health ambulatory care coordinator for advice. You may get [...] allergies without asking your doctor or health ambulatory care coordinator for advice. Some ingredients can increase possible side effects. Your mouth may get dry. Chewing sugarless gum or sucking hard candy, and drinking plenty of water will help. This medicine can reduce the response of your body to heat or cold. Dress shock absorber installer cold weat her and stay hydrated [...] information carefully each time. Talk to your silk screen frame assembler regarding the use of this medicine in children. Special care may be needed. What side effects may I notice from receiving this medicine? Side effects that you should report to your doctor or health ambulatory care coordinator as soon as p ossible: [...] attention (report to your doctor or health ambulatory care coordinator if they continue or are [...] to an official disposal site. Contact the [facility] at [phone] or your [facility] government to find a site. If you cannot return the medicine, flush it down the toilet. Do not use the medicine after the expiration date. What should I tell my health care provider before I take this medicine? They need to know if you have any of these conditions: Mohawk's disease brain tumor head injury heart disease [...] this medicine? Tell your doctor or health ambulatory care coordinator if your pain does not [...] avoid any side effects. Talk to your silk screen frame assembler regarding the use of this medicine in children. Special care may be needed. What side effects may I notice from receiving this medicine? Side effects that you should report to your doctor or health ambulatory care coordinator as soon as p ossible: [...] attention (report to your doctor or health ambulatory care coordinator if they continue or are [...] ta lk to your doctor or health ambulatory care coordinator. You may need to miss [...] if you have any of these conditions: Clearfield's syndrome diabetes glaucoma heart disease high blood [...] this medicine? Visit your doctor or health ambulatory care coordinator for regular checks on your [...] have surgery, tell your doctor or health ambulatory care coordinator that you hav e taken this medicine within the last twelve months. Ask your doctor or health ambulatory care coordinator about your diet. You may need to lower the amou nt of salt you eat. This medicine may affect blood sugar levels. If you have diabetes, check with your doctor o r health ambulatory care coordinator before you change your diet [...] e often than directed. Talk to your silk screen frame assembler regarding the use of this medicine in children. While this medici ne may be prescribed for children as young as 2 years for selected conditions, precautions d o apply. What side effects may I notice from receiving this medicine? Side effects that you should report to your doctor or health ambulatory care coordinator as soon as p ossible: diarrhea muscle weakness nausea, vomiting unusual weight loss Side effects that usually do not require medical attention (report to your doctor or health ambulatory care coordinator if they continue or are [...] returning, check with yo doctor or health ambulatory care coordinator. NOTE:This sheet is a summary. [...] information carefully each time. Talk to your silk screen frame assembler regarding the use of this medicine in children. Special care may be needed. What side effects may I notice from receiving this medicine? Side effects that you should report to your doctor or health ambulatory care coordinator as soon as p ossible: [...] attention (report to your doctor or health ambulatory care coordinator if they continue or are [...] this medicine? Tell your doctor or health ambulatory care coordinator if your pain does not [...] 3 days, call your doctor or health ambulatory care coordinator. Your mouth may get dry. [...] attachments cannot be sent through Care Everywhere.Sepsis (Swazi )Sepsis, Understanding (Swazi)documented in this encounter Medications at Time of [...] Harpal Ray MD - 2:29 PM PDT [facility] Service: Hospitalist Progress Note Pt: Sylvie Ramsey AGE/SEX: 48 y.o. female ROOM: [facility]- : 1970 PCP: No Physician on file [...] over2 weeks #Depression/anxiety/PTSD: -11/03/18 Discussed patient with [phone]. She has a diagnosis of PTSD and [...] MD - 0 11/08/2018 12:00 PM PDT [facility] Service: Hospitalist Progress Note Pt: Sylviechalino Ramsey [...] encounter as of 11/08/18-12:01 IMAGING: Reviewed in [facility], no new results. PROBLEM LIST Principal Problem: [...] as able #Depression/anxiety/PTSD: -11/03/18 Discussed patient with [phone]. She has a diagnosis of PTSD and [...] M D - 11/07/2018 2:04 PM PDT [facility] Service: Hospitalist Progress Note Hospital Day: [...] and psychiat ry was consulted. Her psychiatry TELECASTING TECHNICIAN was also contacted and she was restarted [...] as tolerated #Depression/anxiety/PTSD: -11/03/18 Discussed patient with [phone]. She has a diagnosis of PTSD and [...] Chambers MD - 11/07/2018 8:06 AM PDT [facility] Service: PULMONOLOGY Progress [...] might be different from the o riginal. [facility] Service: Orthopedic Surgery Progress Note Hospital [...] ortho standpoint - Planned transfer to [facility] MIGDALIA Thompson 11/06/2018 10:09 MIGDALIA Thompson has created this entry using [employer] Recognition softConverged Access e and [employer] macros. The entry has been reviewed and there may still exist sound alike word errors. Kush Miller MD - 11/06/2018 8:02 AM PDT [facility] Service: Hospitalist Progress Note Pt: Sylvie Braulio AGE/SEX: 48 y.o. female ROOM: [facility]9119-01 : 1970 PCP: No Physician on [...] agitaitation and psychiatry was consulted. Her psychiatry TELECASTING TECHNICIAN was also contacted and she was restarted [...] hours. No results for input(s): PHART, PO2ART, TDT8IPT, X7EJTJHS, BEART in the last 168 hours. No results for input(s): APTT, INR, PTT in the last 168 hours. No results for input(s): TSH in the last 168 hours. Invalid input(s): T3FREE, FREET4 No results for input(s): TROPONINT in the last 168 hours. Invalid input(s): CKTOTAL, TROPONINI, CKMBINDEX Microbiology Results (72 hrs) Procedure Component Value Units Date/Time Culture, Respiratory, Lower, Smear [[id number]] Collected: 10/29/181728 Order Status: Completed Lab Status: [...] HELD 48 HOURS. RESULT Testing performed at [facility], [address] [place] [id number] Comment: Testing performed at [facility], [address] [place] [id number] RADIOLOGY: Recent Results (from the past 360 [...] study. Depression/anxiety/ptsd - 11/03/18 Discussed patient with [phone]. She has a diagnosis o f PTSD [...] and managing patient and counseling/coordination. Dictation software, [employer], used which may contain error for similar sounding words even af ter review. Personal communication requested for any clarification. Portions of this chart may have been copied from previous notes for continuity of care purp ose iTerri christian RN - 11/05/2018 6:19 PM PDTEnd of shift review complete. Donovan Loja PA - 11/05/2018 10:52 AM PDT [facility] Service: Orthopedic Surgery Progress Note Hospital [...] ortho standpoint - Planned transfer to [facility] MIGDALIA Thompson 11/05/2018 10:52 MIGDALIA Thompson has created this entry using [employer] Access e and [employer] macros. The entry has been reviewed and there may still exist sound alike word errors. Kush Miller MD - 11/05/2018 9:44 AM PDT [facility] Service: Hospitalist Progress Note Pt: Sylvie Ramsey AGE/SEX: 48 y.o. female ROOM: [facility]/9119- : 1970 PCP: No Physician on [...] agitaitation and psychiatry was consulted. Her psychiatry TELECASTING TECHNICIAN was also contacted and she was restarted [...] hours. No results for input(s): PHART, PO2ART, RTP6GZK, E3EZZSYE, BEART in the last 168 hours. No results for input(s): APTT, INR, PTT in the last 168 hours. No results for input(s): TSH in the last 168 hours. Invalid input(s): T3FREE, FREET4 No results for input(s): TROPONINT in the last 168 hours. Invalid input(s): CKTOTAL, TROPONINI, CKMBINDEX Microbiology Results (72 hrs) Procedure Component Value Units Date/Time Culture, Respiratory, Lower, Smear [[id number]] Collected: 10/29/181728 Order Status: Completed Lab Status: [...] HELD 48 HOURS. RESULT Testing performed at [facility], [address] [place] [address] Comment: Testing performed at [facility], [address] [place] [address] RADIOLOGY: Recent Results (from the past 360 [...] study. Depression/anxiety/ptsd - 11/03/18 Discussed patient with [phone]. She has a diagnosis o f PTSD [...] and managing patient and counseling/coordination. Dictation software, [employer], used which may contain error for similar sounding words even af ter review. Personal communication requested for any clarification. Portions of this chart may have been copied from previous notes for continuity of care purp ose Romana Hubbard RN - 11/05/2018 6:29 AM PDTPt has been stable and pleasant [facility] shift. Cooperative with all care. High flow O2 requirements have remained unchanged from previous shift. Chart check completed. Shanice Elizabeth RN - 11/04/2018 5:56 PM PDTSepsis team signing off. Please call with any questions/concerns. [phone]. Shanice Rahman RN P PREMStLala elizabeth RN [...] thanks for coming by." p e xplained physician office nurse availability days & nights if needed. Pt thanked [facility]. Chaplain David Greeney Donovan Belle PA - 11/04/2018 1:02 PM PDT [facility] Service: Orthopedic Surgery Progress Note Hospital [...] MIGDALIA Thompson has created this entry using [employer] Access e and [employer] macros. The entry has been reviewed and there may still exist sound alike word errors. Kush Miller MD - 11/04/2018 11:50 AM PDT [facility] Service: Hospitalist Progress Note Pt: Sylvie [...] hours. No results for input(s): PHART, PO2ART, DFC5UIV, O6YDZIQC, BEART in the last 168 hours. No results for input(s): APTT, INR, PTT in the last 168 hours. No results for input(s): TSH in the last 168 hours. Invalid input(s): T3FREE, FREET4 No results for input(s): TROPONINT in the last 168 hours. Invalid input(s): CKTOTAL, TROPONINI, CKMBINDEX Microbiology Results (72 hrs) Procedure Component Value Units Date/Time Culture, Respiratory, Lower, Smear [[id number]] Collected: 10/29/181728 Order Status: Completed Lab Status: [...] HELD 48 HOURS. RESULT Testing performed at [facility], [address] [place] [address] Comment: Testing performed at [facility], [facility] [place] [address] RADIOLOGY: Recent Results (from the past 360 [...] study. Depression/anxiety/ptsd - 11/03/18 Discussed patient with [phone]. She has a diagnosis o f PTSD [...] and managing patient and counseling/coordination. Dictation software, [employer], used which may contain error for similar [...] to have regu lar p.o. Intake. Per tool room supervisor note oxygenation is improving. 1. Pain [...] doing mobility exercises. Security, risk, pcc, stepdown biodiesel division manager, primary md, and lead rn present with bedside rn. Pt crying and yelling that she doesn't want to "be here". Per p malia disruptive/violent pt paperwork filled out. Situation and pt expectations reviewed by risk and biodiesel division manager with pt. Sitter at bedside currently. [...] room, pt through breakfast tray at [facility]. Dada mares called by nursing staffing coordinator. pt. also stated during session everything we [...] might be different f rom the original. [facility] Service: Hospitalist Progress Note Pt: Sylvie [...] hours. No results for input(s): PHART, PO2ART, VZZ3MSS, F9WBCWCE, BEART in the last 168 hours. No results for input(s): APTT, INR, PTT in the last 168 hours. No results for input(s): TSH, T3FREE in the last 168 hours. Invalid input(s): FREET4 No results for input(s): TROPONINT in the last 168 hours. Invalid input(s): CKTOTAL, TROPONINI, CKMBINDEX Microbiology Results (72 hrs) Procedure Component Value Units Date/Time Culture, Respiratory, Lower, Smear [[id number]] Collected: 10/29/181728 Order Status: Completed Lab Status: [...] HELD 48 HOURS. RESULT Testing performed at [facility], [address] [place] [address] Comment: Testing performed at [facility], [address] [place] [address] RADIOLOGY: Recent Results (from the past 360 [...] sleep study. Depression/anxiety/ptsd - Discussed patient with [phone]. She has a diagnosis of PTSD a [...] making capacity - consulted psychiatry. Appreciate recs. firmware manager to attempt to obtain more information [...] and managing patient and counseling/coordination. Dictation software, Ni[employer], used which may contain error for similar [...] to be transfer to a hospital in [place], or that she was going to call the police and maxim the hospital. , lead nurse, casework supervisor and risk not ified. Pt remained calmed [...] time and continue to be managed by tool room supervisor and hospitalist . No new orthopedics [...] injection 40 mg 40 mg Intravenous BID Ykui Pruett MD 40 mg at 11/02/18 0852 [...] mg 4 mg Intravenous Q6H PRN Miah oMnique MD pantoprazole (PROTONIX) DR tablet 40 mg [...] weightbearing Continue DVT prophylaxis Continue hospitalist and tool room supervisor management for comorbidities plan will be to eventua lly go to rehab or SNF once cleared by specialist Emilio Moreno 11/02/2018 Moses Solorzano, PT - 11/02/2018 12:59 PM PDT 11/02/18 1259 PT Visit Summary PT Visit Type Missed Visit (patient unavailable) (Tele psych consult in progress) Next Visit Information 11/02, LTHA, 2PA Kush Miller MD - 11/02/2018 7:44 AM PDT [facility] Service: Hospitalist Progress Note Pt: Sylvie Ramsey AGE/SEX: 48 y.o. female ROOM: [facility]- : 1970 PCP: No Physician on file [...] hours. No results for input(s): PHART, PO2ART, ZND1IFT, [id number], BEART in the last 168 hours. No results for input(s): APTT, INR, PTT in the last 168 hours. No results for input(s): TSH, T3FREE in the last 168 hours. Invalid input(s): FREET4 No results for input(s): TROPONINT in the last 168 hours. Invalid input(s): CKTOTAL, TROPONINI, CKMBINDEX Microbiology Results (72 hrs) Procedure Component Value Units Date/Time Culture, Respiratory, Lower, Smear [[id number]] Collected: 10/29/181728 Order Status: Completed Lab Status: [...] HELD 48 HOURS. RESULT Testing performed at [facility], [address] [place] [address] Comment: Testing performed at [facility], [address] [place] [address] RADIOLOGY: Recent Results (from the past 360 [...] making capacity - consulted psychiatry. Appreciate recs. firmware manager to attempt to obtain more information [...] and managing patient and counseling/coordination. Dictation software, Niupai, used which may contain error for similar [...] continues to be managed by hospitalist and tool room supervisor and is currently on BiPAP 1. [...] Miller MD - 11/01/2018 7:36 AM PDT [facility] Service: Hospitalist Progress Note Pt: Sylvie [...] hours. No results for input(s): PHART, PO2ART, IDH4GPY, B3FUPAOQ, BEART in the last 168 hours. No results for input(s): APTT, INR, PTT in the last 168 hours. No results for input(s): TSH, T3FREE in the last 168 hours. Invalid input(s): FREET4 No results for input(s): TROPONINT in the last 168 hours. Invalid input(s): CKTOTAL, TROPONINI, CKMBINDEX Microbiology Results (72 hrs) Procedure Component Value Units Date/Time Culture, Respiratory, Lower, Smear [[id number]] Collected: 10/29/181728 Order Status: Completed Lab Status: [...] HELD 48 HOURS. RESULT Testing performed at [facility], [address] [place] [address] Comment: Testing performed at [facility], [address] [place] [address] RADIOLOGY: Recent Results (from the past 360 [...] and managing patient and counseling/coordination. Dictation software, Niupai, used which may contain error for similar [...] Miller MD - 10/31/2018 8:07 AM PDT [facility] Service: Hospitalist Progress Note Pt: Sylvie [...] hours. No results for input(s): PHART, PO2ART, [id number], [id number], BEART in the last 168 hours. No results for input(s): APTT, INR, PTT in the last 168 hours. No results for input(s): TSH, T3FREE in the last 168 hours. Invalid input(s): FREET4 No results for input(s): TROPONINT in the last 168 hours. Invalid input(s): CKTOTAL, TROPONINI, CKMBINDEX Microbiology Results (72 hrs) Procedure Component Value Units Date/Time Culture, Respiratory, Lower, Smear [[id number]] Collected: 10/29/181728 Order Status: Completed Lab Status: [...] HELD 48 HOURS. RESULT Testing performed at [facility], [address] [place] [address] Comment: Testing performed at [facility], [address] [place] [address] RADIOLOGY: Recent Results (from the past 360 [...] and managing patient and counseling/coordination. Dictation software, Niupai, used which may contain error for similar [...] note might be different from the origin [facility] Service: Hospitalist Progress Note Hospital [...] for input(s): IRON, TIBC, PCTSAT, FERRITIN, TSH, [id number], FOLATE in the last 168 hours. Recent [...] continue nicotine patch. Deconditioning. Physical therapy recommended long term facility when stable. Plan discussed with patient. All questions were answered . All data was reviewed. Disposition: Inpatient Code Status: Full Code Yuki Pruett MD 10/30/2018 8:02 This entry has been created using [employer] Speech Recognition software and [employer]. The entry has been reviewed and there may still exist sound alike word errors. Kellee Diego i, RN - 10/30/2018 6:48 AM PDTAttempted to put patient on high flow 02 x2 attempts. Was u nable to keep 02 above 80's placed patient back on biPAP. Otherwise VSS and hourly rounding uneventful. Chart check complete. Víctor Wells ARNP - 10/29/2018 7:31 PM PDT [facility] Service: Orthopedic Surgery Progress Note 10/29/2018 [...] chart review complete. Gianna Wasserman RN Gianna Juen RN - 10/29/2018 11:11 AM PDTTransferred pt [...] note might be different from the origin [facility] Service: Hospitalist Progress Note Hospital [...] for input(s): IRON, TIBC, PCTSAT, FERRITIN, TSH, [id number], FOLATE in the last 168 hours. Recent [...] 7:39 This entry has been created using entegra technologies Speech Recognition software and [employer]. The entry has been reviewed and there may still exist sound alike word errors. Víctor Wells ARNP - 10/28/2018 5:52 PM PDT . [facility] Service: Orthopedic Surgery Progress Note 10/28/2018 [...] ARTHROPLASTY P)continue medical care per hospitalist and tool room supervisor. Weight bear as tolerated LLE. Continue [...] this note might be different from the [facility] Service: Hospitalist Progress [...] for input(s): IRON, TIBC, PCTSAT, FERRITIN, TSH, [id number], FOLATE in the last 168 hours. Recent [...] 10:29 This entry has been created using enteg[employer] technologies Speech Recognition software and [employer]opol[employer]. The entry has been reviewed and there [...] migh t be different from the original. [facility] Adult Hospitalist Event Note Hospital Day: [...] that developed this am after returning from [facility]. Denies dizziness, nausea, cough, chest pain, [...] at | | | | | | [facility], [address] [facility] | | | | | | [place] | | | | | | [address] | | | | + + + + + + + + | Specimen | + + | Blood | + + + + + + + | Performing | Address | City/State/Zipcode | Phone Number | | Organization | | | | + + + + + | [facility] | [address] | [place] [address] | [phone] | + + + + + Magnesium (11/09/2018 4:28 AM PDT) + + + + + + | Component | Value | Ref Range | Performed | Pathologist | | | | | At | Signature | + + + + + + | Magnesium | 2.5 (H)Comment: SPECIMEN | 1.7 - 2.4 mg/dL | [facility] | | | | SLIGHTLY | | LABORATORY | | | | HEMOLYZEDTesting | | | | | | performed at [facility], [address] | | | | | | [address] [facility], | | | | | | [place] [address] | | | | + + + + + + + + | Specimen | + + | Blood | + + + + + + + | Performing | Address | City/State/Zipcode | Phone Number | | Organization | | | | + + + + + | [facility] | [address] | [place] [address] | [phone] | + + + + + Basic [...] | | | | | performed at [facility], [address] | | | | | | [facility], | | | | | | [place] [address] | | | | + + + + + + + + | Specimen | + + | Blood | + + + + + + + | Performing | Address | City/State/Zipcode | Phone Number | | Organization | | | | + + + + + | [facility] | [address] | [place] [address] | [phone] | + + + + + CBC [...] | | | Absolute | performed at [facility], [address] | K/uL | LABORATORY | | | | [place], | | | | | | [place] [address] | | | | + + + + + + + + | Specimen | + + | Blood | + + + + + + + | Performing | Address | City/State/Zipcode | Phone Number | | Organization | | | | + + + + + | [facility] | [address] | [place] [address] | [phone] | + + + + + Magnesium (11/08/2018 3:56 AM PDT) + + + + + + | Component | Value | Ref Range | Performed | Pathologist | | | | | At | Signature | + + + + + + | Magnesium | 2.7 (H)Comment: Testing | 1.7 - 2.4 mg/dL | [facility] | | | | performed at [facility], [address] | | LABORATORY | | | | [place] [place], | | | | | | [place] [address] | | | | + + + + + + + + | Specimen | + + | Blood | + + + + + + + | Performing | Address | City/State/Zipcode | Phone Number | | Organization | | | | + + + + + | [facility] | [address] | [place] [address] | [phone] | + + + + + Basic [...] | | | | | performed at [facility], [address] | | | | | | [address] [facility], | | | | | | [place] [address] | | | | + + + + + + + + | Specimen | + + | Blood | + + + + + + + | Performing | Address | City/State/Zipcode | Phone Number | | Organization | | | | + + + + + | [facility] | [address] | [place] [address] | [phone] | + + + + + CBC [...] at | | | | | | [facility], [address] | | | | | | [place] | | | | | | [address] | | | | + + + + + + + + | Specimen | + + | Blood | + + + + + + + | Performing | Address | City/State/Zipcode | Phone Number | | Organization | | | | + + + + + | [facility] | [address] | [place] [address] | [phone] | + + + + + Magnesium (11/07/2018 4:11 AM PDT) + + + + + + | Component | Value | Ref Range | Performed | Pathologist | | | | | At | Signature | + + + + + + | Magnesium | 2.5 (H)Comment: Testing | 1.7 - 2.4 mg/dL | [facility] | | | | performed at [facility], [address] | | LABORATORY | | | | [place], | | | | | | [place] [address] | | | | + + + + + + + + | Specimen | + + | Blood | + + + + + + + | Performing | Address | City/State/Zipcode | Phone Number | | Organization | | | | + + + + + | [facility] | [address] | [place] [address] | [phone] | + + + + + Basic [...] 59 (L)Comment: GFR <60: | >60 | [facility] | | | GFR | [...] | | | | | | MDRD [facility] traceable | | | | | | equation.Testing | | | | | | performed at [facility], [address] | | | | | | [facility], | | | | | | [place] [address] | | | | + + + + + + + + | Specimen | + + | Blood | + + + + + + + | Performing | Address | City/State/Zipcode | Phone Number | | Organization | | | | + + + + + | [facility] | [address] | [place] [address] | [phone] | + + + + + Procalcitonin [...] | | | | | | at [facility];[address] [place] [address] | | | | | | [facility];[place] [address] | | | | + + + + + + + + | Specimen | + + | Blood | + + + + + + + | Performing | Address | City/State/Zipcode | Phone Number | | Organization | | | | + + + + + | [facility] | [address] | [place] [address] | [phone] | + + + + + CBC with Differential (11/06/2018 4:09 AM PDT) + + + + + + | Component | Value | Ref Range | Performed | Pathologist | | | | | At | Signature | + + + + + + | WBC | 21.02 (H) | 3.80 - 11.00 | [facility] | | | | | K/uL | [...] | | | | [facility], [address] [facility] | | | | | | [place] | | | | | | [address] | | | | + + + + + + + + | Specimen | + + | Blood | + + + + + + + | Performing | Address | City/State/Zipcode | Phone Number | | Organization | | | | + + + + + | [facility] | [address] | [place] [address] | [phone] | + + + + + Magnesium [...] | | | | | [place] [address] | | | | + + + + + + + + | Specimen | + + | Blood | + + + + + + + | Performing | Address | City/State/Zipcode | Phone Number | | Organization | | | | + + + + + | [facility] | [address] | [place] [address] | [phone] | + + + + + Basic [...] | | | | | performed at [facility], [address] | | | | | | [facility], | | | | | | [place] [address] | | | | + + + + + + + + | Specimen | + + | Blood | + + + + + + + | Performing | Address | City/State/Zipcode | Phone Number | | Organization | | | | + + + + + | [facility] | [address] | [place] [address] | [phone] | + + + + + CBC [...] at | | | | | | [facility], [address] | | | | | | [place] | | | | | | [address] | | | | + + + + + + + + | Specimen | + + | Blood | + + + + + + + | Performing | Address | City/State/Zipcode | Phone Number | | Organization | | | | + + + + + | [facility] | [address] | [place] [address] | [phone] | + + + + + Magnesium (11/05/2018 4:05 AM PDT) + + + + + + | Component | Value | Ref Range | Performed | Pathologist | | | | | At | Signature | + + + + + + | Magnesium | 2.6 (H)Comment: Testing | 1.7 - 2.4 mg/dL | [facility] | | | | performed at [facility], [address] | | LABORATORY | | | | [place], | | | | | | [place] [address] | | | | + + + + + + + + | Specimen | + + | Blood | + + + + + + + | Performing | Address | City/State/Zipcode | Phone Number | | Organization | | | | + + + + + | [facility] | [address] | [place] [address] | [phone] | + + + + + Basic [...] | >60Comment: GFR <60: | >60 | [facility] | | | GFR | [...] | | | | | performed at [facility], [address] | | | | | | [facility], | | | | | | [place] [address] | | | | + + + + + + + + | Specimen | + + | Blood | + + + + + + + | Performing | Address | City/State/Zipcode | Phone Number | | Organization | | | | + + + + + | [facility] | [address] | [place] [address] | [phone] | + + + + + CBC [...] | | | | [facility], [address] [facility] | | | | | | [place] | | | | | | [address] | | | | + + + + + + + + | Specimen | + + | Blood | + + + + + + + | Performing | Address | City/State/Zipcode | Phone Number | | Organization | | | | + + + + + | [facility] | [address] | [place] [address] | [phone] | + + + + + Magnesium [...] | | | | | [place] [address] | | | | + + + + + + + + | Specimen | + + | Blood | + + + + + + + | Performing | Address | City/State/Zipcode | Phone Number | | Organization | | | | + + + + + | [facility] | [address] | [place] [address] | [phone] | + + + + + Basic [...] | | | | | | MDRD IDLA traceable | | | | | | equation.Testing | | | | | | performed at [facility], [address] | | | | | | [facility], | | | | | | [place] [address] | | | | + + + + + + + + | Specimen | + + | Blood | + + + + + + + | Performing | Address | City/State/Zipcode | Phone Number | | Organization | | | | + + + + + | [facility] | [address] | [place] [address] | [phone] | + + + + + CBC [...] | | | | | performed at [facility], [address] | | | | | | [address], | | | | | | [place] [address] | | | | + + + + + + + + | Specimen | + + | Blood | + + + + + + + | Performing | Address | City/State/Zipcode | Phone Number | | Organization | | | | + + + + + | [facility] | [address] | [place] [address] | [phone] | + + + + + Magnesium (11/03/2018 3:58 AM PDT) + + + + + + | Component | Value | Ref Range | Performed | Pathologist | | | | | At | Signature | + + + + + + | Magnesium | 2.7 (H)Comment: Testing | 1.7 - 2.4 mg/dL | [facility] | | | | performed at [facility], [address] | | LABORATORY | | | | [place], | | | | | | [place] [address] | | | | + + + + + + + + | Specimen | + + | Blood | + + + + + + + | Performing | Address | City/State/Zipcode | Phone Number | | Organization | | | | + + + + + | [facility] | [address] | [place] [address] | [phone] | + + + + + Basic [...] | >60Comment: GFR <60: | >60 | [facility] | | | GFR | [...] | | | | | | MDRD [facility] traceable | | | | | | equation.Testing | | | | | | performed at [facility], [address] | | | | | | [facility], | | | | | | [place] [address] | | | | + + + + + + + + | Specimen | + + | Blood | + + + + + + + | Performing | Address | City/State/Zipcode | Phone Number | | Organization | | | | + + + + + | [facility] | [address] | [place] [address] | [phone] | + + + + + CBC [...] at | | | | | | [facility], [address] | | | | | | [place] | | | | | | [address] | | | | + + + + + + + + | Specimen | + + | Blood | + + + + + + + | Performing | Address | City/State/Zipcode | Phone Number | | Organization | | | | + + + + + | [facility] | [address] | [place] [address] | [phone] | + + + + + Magnesium (11/02/2018 4:08 AM PDT) + + + + + + | Component | Value | Ref Range | Performed | Pathologist | | | | | At | Signature | + + + + + + | Magnesium | 2.8 (H)Comment: Testing | 1.7 - 2.4 mg/dL | [facility] | | | | performed at [facility], [address] | | LABORATORY | | | | [place], | | | | | | [place] [address] | | | | + + + + + + + + | Specimen | + + | Blood | + + + + + + + | Performing | Address | City/State/Zipcode | Phone Number | | Organization | | | | + + + + + | [facility] | [address] | [place] [address] | [phone] | + + + + + Basic [...] | | | | | performed at [facility], [address] | | | | | | [address], | | | | | | [place] [address] | | | | + + + + + + + + | Specimen | + + | Blood | + + + + + + + | Performing | Address | City/State/Zipcode | Phone Number | | Organization | | | | + + + + + | [facility] | [address] | [place] [address] | [phone] | + + + + + CBC [...] at | | | | | | [facility], [address] | | | | | | [place] | | | | | | [address] | | | | + + + + + + + + | Specimen | + + | Blood | + + + + + + + | Performing | Address | City/State/Zipcode | Phone Number | | Organization | | | | + + + + + | [facility] | [address] | [place] [address] | [phone] | + + + + + Magnesium (11/01/2018 4:17 AM PDT) + + + + + + | Component | Value | Ref Range | Performed | Pathologist | | | | | At | Signature | + + + + + + | Magnesium | 2.7 (H)Comment: Testing | 1.7 - 2.4 mg/dL | [facility] | | | | performed at [facility], [address] | | LABORATORY | | | | [place], | | | | | | [place] [address] | | | | + + + + + + + + | Specimen | + + | Blood | + + + + + + + | Performing | Address | City/State/Zipcode | Phone Number | | Organization | | | | + + + + + | [facility] | [address] | [place] [address] | [phone] | + + + + + Basic [...] | | | | | | MDRD IDLA traceable | | | | | | equation.Testing | | | | | | performed at [facility], [address] | | | | | | [facility], | | | | | | [place] [address] | | | | + + + + + + + + | Specimen | + + | Blood | + + + + + + + | Performing | Address | City/State/Zipcode | Phone Number | | Organization | | | | + + + + + | [facility] | [address] | [place] [address] | [phone] | + + + + + ANTHONY Profile, Reflex (11/01/2018 4:17 AM PDT) + + + + + + | Component | Value | Ref Range | Performed | Pathologist | | | | | At | Signature | + + + + + + | ANTHONY Screen, | NegativeComment: Testing | Negative | [facility] | | | Qual | performed at [facility] | | LABORATORY | | | | [place] [address] | | | | | | [place] [address] | | | | + + + [...] | | | | | with both [place]-3 and | | | | | | [...] | | 3 Antibody | performed by [facility], | | LABORATORY | | | | [place], | | | | | | [facility] [address] | | | | + + + + + + + + | Specimen | + + | Blood | + + + + + + + | Performing | Address | City/State/Zipcode | Phone Number | | Organization | | | | + + + + + | [facility] | [address] | [place] [address] | [phone] | + + + + + Procalcitonin [...] | | | | | | at [facility];[address] | | | | | | [place] [address] | | | | + + + + + + + + | Specimen | + + | Blood | + + + + + + + | Performing | Address | City/State/Zipcode | Phone Number | | Organization | | | | + + + + + | [facility] | [address] | [place] [address] | [phone] | + + + + + Potassium (10/31/2018 6:15 PM PDT) + + + + + + | Component | Value | Ref Range | Performed | Pathologist | | | | | At | Signature | + + + + + + | K | 3.8Comment: Testing | 3.5 - 4.9 | [facility] | | | | performed at [facility];[address] | mmol/L | LABORATORY | | | | [facility], [place] | | | | | | [address] | | | | + + + + + + + + | Specimen | + + | Blood | + + + + + + + | Performing | Address | City/State/Zipcode | Phone Number | | Organization | | | | + + + + + | [facility] | [address] | [place] [address] | [phone] | + + + + + CBC [...] LABORATORY | | | | performed at [facility], [address] | | | | | | [address] [place], | | | | | | [place] [address] | | | | | | | | | | + + + + + + + + | Specimen | + + | Blood | + + + + + + + | Performing | Address | City/State/Zipcode | Phone Number | | Organization | | | | + + + + + | [facility] | [address] | [place] [address] | [phone] | + + + + + Magnesium (10/31/2018 4:14 AM PDT) + + + + + + | Component | Value | Ref Range | Performed | Pathologist | | | | | At | Signature | + + + + + + | Magnesium | 2.3Comment: Testing | 1.7 - 2.4 mg/dL | [facility] | | | | performed at [facility], [address] | | LABORATORY | | | | [place], | | | | | | [place] [address] | | | | + + + + + + + + | Specimen | + + | Blood | + + + + + + + | Performing | Address | City/State/Zipcode | Phone Number | | Organization | | | | + + + + + | [facility] | [address] | [place] [address] | [phone] | + + + + + Basic [...] 8.1 (L) | 8.5 - 10.5 | [facility] | | | | | mg/dL | LABORATORY | | + + + + + + | Estimated | >60Comment: GFR <60: | >60 | [facility] | | | GFR | [...] | | | | | | MDRD [facility] traceable | | | | | | equation.Testing | | | | | | performed at [facility], [address] | | | | | | [facility], | | | | | | [place] [address] | | | | + + + + + + + + | Specimen | + + | Blood | + + + + + + + | Performing | Address | City/State/Zipcode | Phone Number | | Organization | | | | + + + + + | [facility] | [address] | [place] [address] | [phone] | + + + + + Phosphorus (10/31/2018 4:14 AM PDT) + + + + + + | Component | Value | Ref Range | Performed | Pathologist | | | | | At | Signature | + + + + + + | Phosphorus | 3.4Comment: Testing | 2.3 - 4.8 mg/dL | [facility] | | | | performed at [facility], [address] | | LABORATORY | | | | [address] [place], | | | | | | [place] [address] | | | | + + + + + + + + | Specimen | + + | Blood | + + + + + + + | Performing | Address | City/State/Zipcode | Phone Number | | Organization | | | | + + + + + | [facility] | [address] | [place] [address] | [phone] | + + + + + XR [...] LABORATORY | | | | performed at [facility], [address] | | | | | | [address] [place], | | | | | | [place] [address] | | | | | | | | | | + + + + + + + + | Specimen | + + | Blood | + + + + + + + | Performing | Address | City/State/Zipcode | Phone Number | | Organization | | | | + + + + + | [facility] | [address] | [place] [address] | [phone] | + + + + + Magnesium (10/30/2018 4:18 AM PDT) + + + + + + | Component | Value | Ref Range | Performed | Pathologist | | | | | At | Signature | + + + + + + | Magnesium | 2.3Comment: Testing | 1.7 - 2.4 mg/dL | [facility] | | | | performed at [facility], [address] | | LABORATORY | | | [address], | | | | | | [place] [address] | | | | + + + + + + + + | Specimen | + + | Blood | + + + + + + + | Performing | Address | City/State/Zipcode | Phone Number | | Organization | | | | + + + + + | [facility] | [address] | [place] [address] | [phone] | + + + + + Basic [...] | | | | | performed at [facility], [address] | | | | | | [facility], | | | | | | [place] [place] [address] | | | | + + + + + + + + | Specimen | + + | Blood | + + + + + + + | Performing | Address | City/State/Zipcode | Phone Number | | Organization | | | | + + + + + | [facility] | [address] | [place] [address] | [phone] | + + + + + Vitamin D, Deficiency Screen (25-Hydroxy) (10/30/2018 4:18 AM PDT) + + + + + + | Component | Value | Ref Range | Performed | Pathologist | | | | | At | Signature | + + + + + + | Vit D, | <12 (L)Comment: <20 | 30 - 150 ng/mL | [facility] | | | 25-Hydroxy | [...] | | | | | performed at [facility], [address] | | | | | | [facility], | | | | | | [place] [address] | | | | + + + + + + + + | Specimen | + + | Blood | + + + + + + + | Performing | Address | City/State/Zipcode | Phone Number | | Organization | | | | + + + + + | [facility] | [address] | [place] [address] | [phone] | + + + + + Culture, [...] | | | | [facility], [address] [facility] | | LABORATORY | | | | [place], [place], [place] | | | | | | [id number]: Testing | | | | | | performed at [facility], [address] | | | | | | [facility], | | | | | | [place] [address] | | | | + + + + + + + + | Specimen | + + | Body Fluid - Coughed | | sputum specimen | | (specimen) | + + + + + + + | Performing | Address | City/State/Zipcode | Phone Number | | Organization | | | | + + + + + | [facility] | [address] | [place] [address] | [phone] | + + + + + ECHO [...] Testing | 1.7 - 2.4 mg/dL | [facility] | | | | performed at [facility], [address] | | LABORATORY | | | | [address], | | | | | | [place] [address] | | | | + + + + + + + + | Specimen | + + | Blood | + + + + + + + | Performing | Address | City/State/Zipcode | Phone Number | | Organization | | | | + + + + + | [facility] | [address] | [place] [address] | [phone] | + + + + + Basic [...] | | | | | performed at [facility], [address] | | | | | | [place], | | | | | | [place] [address] | | | | + + + + + + + + | Specimen | + + | Blood | + + + + + + + | Performing | Address | City/State/Zipcode | Phone Number | | Organization | | | | + + + + + | [facility] | [address] | [place] [address] | [phone] | + + + + + CBC [...] at | | | | | | [facility], [address] [facility] | | | | | | [place] | | | | | | [address] | | | | + + + + + + + + | Specimen | + + | Blood | + + + + + + + | Performing | Address | City/State/Zipcode | Phone Number | | Organization | | | | + + + + + | [facility] | [address] | [place] [address] | [phone] | + + + + + VAS [...] | | | | | | at [facility];[address] | | | | | | [place] [address] | | | | + + + + + + + + | Specimen | + + | Blood | + + + + + + + | Performing | Address | City/State/Zipcode | Phone Number | | Organization | | | | + + + + + | [facility] | [address] | [place] [address] | [phone] | + + + + + B [...] | | LABORATORY | | | | [facility];[address] [facility] | | | | | | Blvd;[place] [address] | | | | + + + + + + + + | Specimen | + + | Blood | + + + + + + + | Performing | Address | City/State/Zipcode | Phone Number | | Organization | | | | + + + + + | [facility] | [address] | [place] [address] | [phone] | + + + + + Basic [...] | >60Comment: GFR <60: | >60 | [facility] | | | GFR | [...] | | | | | performed at [facility];[address] | | | | | | [facility];[place], [place] | | | | | | [address] | | | | + + + + + + + + | Specimen | + + | Blood | + + + + + + + | Performing | Address | City/State/Zipcode | Phone Number | | Organization | | | | + + + + + | [facility] | [address] | [place] [address] | [phone] | + + + + + CBC [...] | | | | | performed at [facility];[address] | | | | | | [address];[place] | | | | | | [address] | | | | + + + + + + + + | Specimen | + + | Blood | + + + + + + + | Performing | Address | City/State/Zipcode | Phone Number | | Organization | | | | + + + + + | [facility] | [address] | [place] [address] | [phone] | + + + + + CT [...] | >60Comment: GFR <60: | >60 | [facility] | | | GFR | [...] | | | | | performed at [facility];[address] | | | | | | [facility];[place], [place] | | | | | | [address] | | | | + + + + + + + + | Specimen | + + | Blood | + + + + + + + | Performing | Address | City/State/Zipcode | Phone Number | | Organization | | | | + + + + + | [facility] | [address] | [place] [address] | [phone] | + + + + + CBC [...] [facility] | | | | performed at [facility], [address] | | LABORATORY | [...] | + + + + + | [facility] | [address] | [place] [address] | [phone] | + + + + + ECG [...] [facility] | | | | performed at [facility], [address] | | LABORATORY | | | | [address], | | | | | | [place] [address] | | | | + + + + + + + + | Specimen | + + | Blood | + + + + + + + | Performing | Address | City/State/Zipcode | Phone Number | | Organization | | | | + + + + + | [facility] | [address] | [place] [address] | [phone] | + + + + + XR [...] | | | abnormalities are grossly identified. Boat Motor Mechanic sections are | | | submitted in [...] interpretation was | | | performed by [employer], [facility] | | | [place], [place] (Wellness Program Manager: Víctor Livingston M.D.; | | | CLIA#: [id number]).The technical component was performed by [employer] | | | [facility], [address] [place] [address] (Wellness Program Manager: | | | Nadiya Sharma MD; CLIA# [id number]). Diagnostician: Víctor Livingston | | | MDPathologistElectronically [...] | | LABORATORY | | | | Blvd;[place] [address] | | | | + + + [...] RESULT | Testing performed at | | [facility] | | | | [facility], [address] | | LABORATORY | | | | [place], [place] | | | | | | [address]Rczoorq: Testing | | | | | | performed at [facility], [address] | | | | | [address] [place], [place] | | | | | | [address] | | | | + + + + + + + + | Specimen | + + | | + + + + + + + | Performing | Address | City/State/Zipcode | Phone Number | | Organization | | | | + + + + + | [facility] | [address] [facility] | [place] [address] | [phone] | + + + + + Culture, [...] [place] | | | | | | [address]: Testing | | | | | | performed at [facility], [address] | | | | | | [address] [place], | | | | | | [place] [address] | | | | + + + + + + + + | Specimen | + + | Tissue - Hip joint | | synovium (body | | structure) | + + + + + + + | Performing | Address | City/State/Zipcode | Phone Number | | Organization | | | | + + + + + | [facility] | [address] | [place] [address] | [phone] | + + + + + Type [...] + + + | [facility] | [id number] | | [facility] | | | | | | LABORATORY | | + + + + + + | BB BAND | Testing performed at | | [facility] | | | | [facility];[address] | | LABORATORY | | | | Blvd;[place] [address] | | | | + + + + + + + + | Specimen | + + | Blood | + + + + + + + | Performing | Address | City/State/Zipcode | Phone Number | | Organization | | | | + + + + + | [facility] | [address] | [place] [address] | [phone] | + + + + + POCT Test, Urine, Qual (10/24/2018 1:27 PM PDT) + + + + + + | Component | Value | Ref Range | Performed | Pathologist | | | | | At | Signature | + + + + + + | HCG, | NEGATIVEComment: Testing | NEG | [facility] | | | Quantitativ | performed at [facility];[address] | | LABORATORY | | | e POC | [address];[place], [place] | | | | | | [address] | | | | + + + + + + + + | Specimen | + + | | + + + + + + + | Performing | Address | City/State/Zipcode | Phone Number | | Organization | | | | + + + + + | [facility] | [address] | [place] [address] | [phone] | + + + + + documented in this encounter Visit Diagnoses + + | Diagnosis | + + | 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
--- OUTSIDE RECORDS SUMMARY | ~2019-07-24 | XMS | Encounter Summary ---
Demographics + + + | Address | [address] | | | [place] [address] | + + + | Home Phone | | + + + | Preferred Language | Unknown | + + + | Marital Status | | + + + | Anglican Affiliation | Unknown | + + + | Race | Unknown | + + + | Ethnic Group | Unknown | + + + Author + + + | Author | [facility] | | | and [place] | + + + | Organization | [facility] | | | and [place] | + + + | Address | Unknown | + + + | Phone | Unavailable | + + + Support + + + + + | Name | Relationship | Address | Phone | + + + + + | Fabienne Juarez | ECON | [place] | | | | | [address] | | + + + + + Care Team Providers + +------+ + | Care Health Information Systems Technician Name | Role | Phone | [...] | | | | [place] | [phone] | | | | | [address] | | | | | | [phone] | | | +--------+ + + + [...]
--- OUTSIDE RECORDS SUMMARY | ~2019-07-24 | XMS | Encounter Summary ---
Demographics + + + | Address | [address] | | | [place] [address] | + + + | Home Phone | | + + + | Preferred Language | Unknown | + + + | Marital Status | | + + + | Voodoo Affiliation | Unknown | + + + | Race | Unknown | + + + | Ethnic Group | Unknown | + + + Author + + + | Author | [facility] | | | and [place] | + + + | Organization | [facility] | | | and [place] | + + + | Address | Unknown | + + + | Phone | Unavailable | + + + Support + + + + + | Name | Relationship | Address | Phone | + + + + + | Fabienne Juarez | ECON | [place] | | | | | [address] | | + + + + + Care Team Providers + +------+ + | Care Breastfeeding Peer Counselor Name | Role | Phone | + +------+ + | Celestine Watters MD | PCP | | + +------+ + Encounter Details +--------+ + + + + | Date | Type | Department | Care Team | Description | +--------+ + + + + | 12/11/ | Hospital | [facility] | Miah Monique | Status post left hip | | 2018 | Encounter | RADHA [address] | MD Fab [address] | replacement | | | | [address] | [address] [place] [address] | | | | | [place], [place] | [place] [address] | | | | | [address] | [phone] | | | | | [phone] | | | +--------+ + + + [...]
--- OUTSIDE RECORDS SUMMARY | ~2019-07-24 | XMS | Encounter Summary ---
Demographics + + + | Address | [address] | | | [place] [address] | + + + | Home Phone [...] | Author | [facility] | | | and [place] | + + + | Organization | [facility] | | | and [place] | + + + | Address | Unknown | + + + | Phone | Unavailable | + + + Support + + + + + | Name | Relationship | Address | Phone | + + + + + | Fabienne Juarez | ECON | [place] | | | | | [address] | | + + + + + Care Team Providers + +------+ + | Care Maintenance Mechanic Elevators Name | Role | Phone | + +------+ + PCP | Unavailable | + +------+ + Encounter Details +--------+ + + + + | Date | Type | Department | Care Team | Description | +--------+ + + + + | 10/06/ | Hospital | [facility] | Conversion | | | 2019 | Encounter | [facility] | Transaction, | | | | | CLINIC [address] | Provider Unknown | | | | | [place], [place] | | | | | | [address] | | | | | | [phone] | | | +--------+ + + + [...] | | | Screen | performed at [facility] | | LAB | | | | [facility], [place] | | | | | | [address] | | | | + + + [...] NEGATIVE Testing | | | performed at [facility];[address] [place] [address];[place] [address] | | + + + + +---------+ [...] | | | Basophils | performed at [facility], [address] | [address] | LAB | | | | [address], | | | | | | [place] [address] | | | | + + + [...] | | | | | performed at [facility], [address] | | | | | | [address], | | | | | | [place] [address] | | | | + + + [...] | | | | | [facility] traceable | | | | | | equation.Testing | | | | | | performed at [facility], [address] | | | | | | [facility], | | | | | | [place] [address] | | | | + + + [...]
--- OUTSIDE RECORDS SUMMARY | ~2019-07-24 | XMS | Encounter Summary ---
Demographics + + + | Address | [address] | | | [place] [address] | + + + | Home Phone | | + + + | Preferred Language | Unknown | + + + | Marital Status | | + + + | Episcopalian Affiliation | Unknown | + + + | Race | Unknown | + + + | Ethnic Group | Unknown | + + + Author + + + | Author | [facility] | | | and [place] | + + + | Organization | [facility] | | | and [place] | + + + | Address | Unknown | + + + | Phone | Unavailable | + + + Support + + + + + | Name | Relationship | Address | Phone | + + + + + | Fabienne Juarez | ECON | [place] | | | | | [address] | | + + + + + Care Team Providers + +------+ + | Care School Psychological Examiner Name | Role | Phone | + [...] [address] | | | | | [address] [place], [place] | [place], | | | | | [address] | [place] [address] | | | | | [phone] | [phone] | | | | | | | [...]
--- OUTSIDE RECORDS SUMMARY | ~2019-07-24 | XMS | Encounter Summary ---
Demographics + + + | Address | [address] | | | [place] [address] | + + + | Home Phone [...] [facility] | | | and [place] | + + + | Organization | [facility] | [...] [place] | | | | | [address] | | + + + + + Care Team Providers + +------+ + | Care Glove Boarder Name | Role | Phone | + +------+ + | Celestine Watters MD | PCP | | + +------+ + Reason for Visit + + + | Reason | Comments | + + + | Medication Question | | + + + Encounter Details +--------+ + + + + | Date | Type | Department | Care Team | Description | +--------+ + + + + | 11/16/ | Telephone | [facility] | Miah Monique | Medication Question | | 2019 | | [address] | MD Fab [address] | | | | | [address] [place], [place] | [address] | | | | | [address] | [place] [address] | | | | | [phone] | [phone] | | | | | | | [...]
--- OUTSIDE RECORDS SUMMARY | ~2019-07-24 | XMS | Encounter Summary ---
Demographics + + + | Address | [address] | | | [place] [address] | + + + | Home Phone [...] | Author | [facility] | | | and [place] | + + + | Organization | [facility] | | | and [place] | + + + | Address | Unknown | + + + | Phone | Unavailable | + + + Support + + + + + | Name | Relationship | Address | Phone | + + + + + | Fabienne Juarez | ECON | [place] | | | | | [address] | | + + + + + Care Team Providers + +------+ + | Care Customer Development Manager Name | Role | Phone [...] [address] | | | | | [place], [place] | [place] | | | | | [address] | [place] [address] | | | | | [phone] | [phone] | | | | | | | [...]
--- OUTSIDE RECORDS SUMMARY | ~2019-07-24 | XMS | Encounter Summary ---
Demographics + + + | Address | [address] | | | [place] [address] | + + + | Home Phone [...] Author | [facility] | | | and [place] | + + + | Organization | [facility] | | | and [place] | + + + | Address | Unknown | + + + | Phone | Unavailable | + + + Support + + + + + | Name | Relationship | Address | Phone | + + + + + | Fabienne Juarez | ECON | [place] | | | | | [address] | | + + + + + Care Team Providers + +------+ + | Care Manager Loan Name | Role | Phone | + +------+ + | Celestine Watters MD | PCP | | + +------+ + Encounter Details +--------+ + + + + | Date | Type | Department | Care Team | Description | +--------+ + + + + | 12/11/ | Hospital | [facility] | Miah Monique | Status post left hip | | 2018 | Encounter | RADHA Curry5 | MD Fab [address] | replacement | | | | [address] | [address] [place] [address] | | | | | [place], [place] | [place] [address] | | | | | [address] | [phone] | | | | | [phone] | | | +--------+ + + + [...]
--- OUTSIDE RECORDS SUMMARY | ~2019-07-24 | XMS | Encounter Summary ---
Demographics + + + | Address | [address] | | | [place] [address] | + + + | Home Phone | | + + + | Preferred Language | Unknown | + + + | Marital Status | | + + + | Samaritan Affiliation | Unknown | + + + | Race | Unknown | + + + | Ethnic Group | Unknown | + + + Author + + + | Author | [facility] | | | and [place] | + + + | Organization | [facility] | | | and [place] | + + + | Address | Unknown | + + + | Phone | Unavailable | + + + Support + + + + + | Name | Relationship | Address | Phone | + + + + + | Fabienne Juarez | ECON | [place] | | | | | [address] | | + + + + + Care Team Providers + +------+ + | Care Life Skills Consultant Name | Role | Phone | [...] | | [place] | [place] [address] | | | | | [address] | [phone] | | | | | [phone] | | | +--------+ + + + [...]
--- OUTSIDE RECORDS SUMMARY | ~2019-07-24 | XMS | Encounter Summary ---
Demographics + + + | Address | [address] | | | [place] [address] | + + + | Home Phone [...] + | Author | [facility] | | | and [place] | + + + | Organization | [facility] | | | and [place] | + + + | Address | Unknown | + + + | Phone | Unavailable | + + + Support + + + + + | Name | Relationship | Address | Phone | + + + + + | Fabienne Juarez | ECON | [place] | | | | | [address] | | + + + + + Care Team Providers + +------+ + | Care Quality Management Coordinator Name | Role | Phone | + +------+ + | No, Physician | PCP | Unavailable | + +------+ + Encounter Details +--------+ + + + + | Date | Type | Department | Care Team | Description | +--------+ + + + + | 10/18/ | Hospital | [facility] | Conversion | | | 2019 | Encounter | [facility] | Transaction, | | | | | [address] | Provider Unknown | | | | | [address] [place], [place] | [phone] | | | | | [address] | | | | | | [phone] | | | +--------+ + + + [...]
--- OUTSIDE RECORDS SUMMARY | ~2019-07-24 | XMS | Encounter Summary ---
Demographics + + + | Address | [address] | | | [place] [address] | + + + | Home Phone | | + + + | Preferred Language | Unknown | + + + | Marital Status | | + + + | Orthodoxy Affiliation | Unknown | + + + | Race | Unknown | + + + | Ethnic Group | Unknown | + + + Author + + + | Author | [facility] | | | and [place] | + + + | Organization | [facility] | | | and [place] | + + + | Address | Unknown | + + + | Phone | Unavailable | + + + Support + + + + + | Name | Relationship | Address | Phone | + + + + + | Fabienne Juarez | ECON | [place] | | | | | [address] | | + + + + + Care Team Providers + +------+ + | Care Help Desk Associate Name | Role | Phone | + +------+ + | No, Physician | PCP | Unavailable | + +------+ + Encounter Details +--------+ + + + + | Date | Type | Department | Care Team | Description | +--------+ + + + + | 10/18/ | Orders Only | [facility] | Miah Monique | | | 2018 | | [facility] | MD [address] | | | | | [address] | [place] [address] | | | | | [address] [place] | [place] [address] | | | | | [place], [place] | [phone] | | | | | [address] | | | | | | [phone] | | | +--------+ + + + [...] EXTERNAL LAB | | Testing performed at [facility] [place] [address];[place] [address] | | + + + + +---------+ [...] | | CLOUDY RBC'S | | | [address] TOTAL NUCLEATED CELLS | | | 29 NEUTROPHILS | | | 83 LYMPHOCYTES | | | 14 EOSINOPHILS 3 | | | CELLS COUNTED 100 | | | Testing performed at [facility] [place] [address];[place] [address] | | + + + + +---------+ + + | Performing | Address | City/State/Zipcode | Phone Number | | Organization | | | | + +---------+ + + | EXTERNAL LAB | | | | + +---------+ + + documented in this encounter Visit Diagnoses Not on filedocumented in this encounter"
--- OUTSIDE RECORDS SUMMARY | ~2019-07-24 | XMS | Encounter Summary ---
Demographics + + + | Address | [address] | | | [place] [address] | + + + | Home Phone [...] | Author | [facility] | | | and [place] | + + + | Organization | [facility] | | | and [place] | + + + | Address | Unknown | + + + | Phone | Unavailable | + + + Support + + + + + | Name | Relationship | Address | Phone | + + + + + | Fabienne Juarez | ECON | [place] | | | | | [address] | | + + + + + Care Team Providers + +------+ + | Care Non Licensed Operator Name | Role | Phone | [...] [place] | | | | | [address] | [place] [address] | | | | | [phone] | [phone] | | | | | | | [...]
--- OUTSIDE RECORDS SUMMARY | ~2019-07-24 | XMS | Encounter Summary ---
Demographics + + + | Address | [address] | | | [place] [address] | + + + | Home Phone [...] Author | [facility] | | | and [place] | + + + | Organization | [facility] | [...] [place] | | | | | [address] | | + + + + + Care Team Providers + +------+ + | Care Business Management Intern Name | Role | Phone | [...] + + | 11/16/ | Telephone | [facility] | Miah Monique | Medication Question | | 2019 | | [address] | MD Fab [address] | | | | | [address] [place], [place] | [address] [place] | | | | | [address] | [place] [address] | | | | | [phone] | [phone] | | | | | | | [...]
--- OUTSIDE RECORDS SUMMARY | ~2019-07-24 | XMS | Encounter Summary ---
Demographics + + + | Address | [address] | | | [place] [address] | + + + | Home Phone [...] + | Author | [facility] | | | and [place] | + + + | Organization | [facility] | | | and [place] | + + + | Address | Unknown | + + + | Phone | Unavailable | + + + Support + + + + + | Name | Relationship | Address | Phone | + + + + + | Fabienne Juarez | ECON | [place] | | | | | [address] | | + + + + + Care Team Providers + +------+ + | Care Outside Event Sales Specialist Name | Role | Phone | [...] [address] | | | | | [place], [place] | [place] | | | | | [address] | [place] [address] | | | | | [phone] | [phone] | | | | | | | [...]
[~2019-07-24 13:10] MED LIST changes: +AZITHROMYCIN250 MG PO; +CEFPODOXIME PR200 MG PO; +IPRAT-ALBUT 0.5-3 ML INH; +MIRAPEX1 MG PO; +PREDNISONE10 MG PO; +ROPINIROLE HCL1 MG PO; +VENTOLIN HFA18 GM INH
--- OUTSIDE RECORDS SUMMARY | 2019-07-24 13:12 | XMS ---
PreManage Notification: ASIYA APODACA Security Pool Manager Events No recent Security Events currently on file CRITERIA MET - [facility] Guidelines - PDMP CARE PROVIDERS Nathaniel Slaughter MD PHONE: [phone] [facility] 07/11/2018-Current PHONE: [phone] ELISABETH GONZALEZ MD Orthopaedic Surgery: Adult 01/01/2019-Current Reconstructive Orthopaedic Surgery PHONE: [phone] [facility] [place] Guidelines Date: 01/01/2019 Care Coordination: Receives mental health services with [facility].\T\nbsp; Please contact [facility] for any mental health concerns.\T\nbsp; [facility]: [phone]\ T\nbsp; Kendra: [phone]. Rosalind VISIT COUNT (12 MO.) 3 T[facility] TOTAL 3 NOTE: Visits indicate total known visits. ED/UCC VISIT TRACKING (12 MO.) 07/24/2019 13:10 [facility] [place] TYPE: Emergency COMPLAINT: - HEART PALPITATIONS 03/11/2019 08:16 [facility] [place] TYPE: Emergency COMPLAINT: - SOB 12/31/2018 13:54 [facility] [place] TYPE: Emergency COMPLAINT: - PELVIC PAIN DIAGNOSES: - Allergy status to other drugs, medicaments and biological sub - Essential (primary) hypertension - Other chronic pain - Anxiety disorder, unspecified - Nicotine dependence, unspecified, uncomplicated - Major depressive disorder, single episode, unspecified - Pain in left hip INPATIENT VISIT TRACKING (12 MO.) 03/11/2019 08:17 [facility] [place] TYPE: Observation COMPLAINT: - ASTHMA EXACERBATION DIAGNOSES: - Major depressive disorder, single episode, unspecified - Other group home (current) drug therapy - Pneumonia, unspecified organism - Other chronic pain - Acute respiratory distress - Encounter for immunization - Anxiety disorder, unspecified - Allergy status to other drugs, medicaments and biological sub - Unspecified asthma with (acute) exacerbation - Other nonspecific abnormal finding of lung field - Essential (primary) hypertension - Nicotine dependence, cigarettes, uncomplicated [id number]
[2019-07-24] MEDS ORDERED: PHENTERMINE HCL30 MG PO (13:28)
[2019-07-24] MEDS ORDERED: HALDOL5 MG/1 ML INJ (13:29)
--- NOTE | 2019-07-25 12:10 | EKG ---
[facility] [address] [facility] [place] [address] Signed Normal sinus rhythm Possible Left atrial enlargement Borderline ECG When compared with ECG of 11-MAR-2019 08:23, No significant change was found Confirmed by LAUREL MONTOYA DO ([id number]) on 07/25/2019 12:10:05 PM Electronically Signed By: LAUREL MONTOYA DO 07/25/19 1210 PATIENT NAME: APODACAASIYA Electrocardiogram DATE OF : 70 PHYSICIAN: LAUREL MONTOYA DO REPORT #: [id number] REPORT IS CONFIDENTIAL AND NOT TO BE RELEASED WITHOUT AUTHORIZATION
== END 2019-07-24 15:37 | disposition home or self-care (01) ==
LOC: ED 13:10
DX: R07.9 Chest pain, unspecified (principal); F15.10 Other stimulant abuse, uncomplicated; J45.909 Unspecified asthma, uncomplicated; I10 Essential (primary) hypertension; F41.9 Anxiety disorder, unspecified; F32.9 Major depressive disorder, single episode, unspecified; F17.200 Nicotine dependence, unspecified, uncomplicated; Z88.8 Allergy status to other drugs, medicaments and biological substances; Z79.899 Other long term (current) drug therapy
CPT/HCPCS: 71045; 80053; 83735; 84484; 85025; 93005; 93010; 99285-25; 99406

== ENCOUNTER 2020-05-19 09:36 | Inpatient (IN) | payer OTHER ==
[~2020-05-19] VITALS: Ht 152.4 cm; Wt 121.0 kg
[~2020-05-19 09:36] MED LIST changes: +HALDOL5 MG/1 ML INJ; -ROPINIROLE HCL1 MG PO
--- OUTSIDE RECORDS SUMMARY | 2020-05-19 09:38 | XMS ---
PreManage Notification: ASIYA APODACA Security Housekeeper And Laundry Assistant Events No recent Security Events currently on file [place]ITERIA MET - [facility] [place] Nathaniel Slaughter MD PHONE: [phone] DEEP [facility] Medicine 07/11/2018-Current PHONE: [phone] ELISABETH GONZALEZ MD Orthopaedic Surgery: Adult 01/01/2019-Current Reconstructive Orthopaedic Surgery PHONE: [phone] Guidelines Source: [facility] [place] Guidelines Date: 01/01/2019 Care Coordination: Receives mental health services with [facility].\T\nbsp; Please contact [facility] for any mental health concerns.\T\nbsp; [place]: [phone]\ T\nbsp; [place]: [phone]. Rosalind VISIT COUNT (12 MO.) 2 TICO [facility] TOTAL 2 NOTE: Visits indicate total known visits. ED/UCC VISIT TRACKING (12 MO.) 05/19/2020 09:36 [facility] [place] TYPE: Emergency COMPLAINT: - FEVER, SOB 07/24/2019 13:[address] [facility] TYPE: Emergency COMPLAINT: - HEART PALPITATIONS DIAGNOSES: - Other jail (current) drug therapy - Chest pain, unspecified - Allergy status to other drugs, medicaments and biological substances - Other stimulant abuse, uncomplicated - Nicotine dependence, unspecified, uncomplicated - Anxiety disorder, unspecified - Unspecified asthma, uncomplicated - Essential (primary) hypertension - Chest pain, unspecified - Major depressive disorder, single episode, unspecified INPATIENT VISIT TRACKING (12 MO.) No inpatient visits to display in this time frame [email or web address]
--- NOTE | 2020-05-19 15:00 | NUR ---
49 YEAR OLD FEMALE PATIENT ADMITTED TO CCU VIA STRETCHER UNDER DR. BROWN WITH DX OF POSSIBLE PNEUMONIA, HYPOXIA. PATIENT HAS BEEN WIT INCREASED CONFUSSION TODAY AND FEVER. UPON ADMIT TO ROOM 130, PATIENT IS ON BIPAP AT 40% FIO2 14/5. PATIENT IS ABLE TO TALK IN FULL SENTANCES. ADMISSION PROCESS STARTED.
--- NOTE | 2020-05-19 16:00 | NUR ---
UP TO COMMODE TO VOID. DENIES INCREASED SHORTNESS OF BREATH WITH EXERTION. BACK TO BED. PATIENT IS VERY EMOTIONAL AT TIMES. FORM LAUGHING TO CRYING, DEMANDING AT TIMES. IS ABLE TO ANSWERE QUESTIONS, HOWEVER GETS HER WORDS SCRAMBLED AT TIMES. LABILE EMOTIONALY.
--- NOTE | 2020-05-19 16:40 | NUR ---
PULLED OFF BIPAP, REFUSING IT A THIS TIME. O2 AT 4 L NC REAPPLIED.
--- NOTE | 2020-05-19 17:53 | NUR ---
TOOK CLEAR LIQUIDS FAIR. C/O HEADACHE, TYLENOL 650 MG PO GIVEN. SITTING UP IN BED WITH O2 AT 4 L NC ON, WATCHING TV.
--- NOTE | 2020-05-19 19:47 | NUR ---
REPORT RECEIVED FROM DAY SHIFT. PT RESTING IN BED WITH BIPAP ON, JUST PLACED ON PT BY DAY SHIFT JUAN MARTINEZ.
--- NOTE | 2020-05-19 20:45 | NUR ---
IN TO DO ASSESSMENT AND GIVE SOLUMEDROL. PT CONT TO WEAR BIPAP 14/5 40% WITH SPO2 98%, RATE 12. LUNGS PT DROWSY, WAKES BRIEFLY AND DENIES NEEDS THEN BACK TO SLEEP.
--- NOTE | 2020-05-19 21:21 | NUR ---
RT IN TO DO VIKTORIYA NEB TX THROUGH BIPAP.
--- NOTE | 2020-05-19 23:30 | NUR ---
PT NOW AWAKE, JELLO AND SODA GIVEN PER REQUEST. REQUESTS BREAK FROM BIPAP SO PLACED ON 2L/NC. UP TO BSC TO VOID AND THEN GETS SELF BACK INTO BED. PT STATES SHE FEELS LIKE "MY BREATHING IS MUCH BETTER, I FEEL LIKE MY LUNGS ARE ALL PUFFED UP." NO FURTHER REQUESTS
--- NOTE | 2020-05-20 01:00 | NUR ---
PT HAS BEEN OFF BIPAP APPROX 2 HOURS WITH SATS MAINTAINING IN MID TO HIGH NINETIES. BIPAP PLACED BACK ON, PT AGREES TO TRY TO WEAR IT AGAIN LONG SHE CAN.
--- NOTE | 2020-05-20 01:43 | NUR ---
RT IN ROOM TO DO NEB TX AND PLACE PT BACK ON BIPAP.
--- NOTE | 2020-05-20 03:42 | NUR ---
IN TO CHECK ON PT, GIVE SOLUMEDROL AND DO ASSESSMENT. PT CONTINUES TO WEAR BIPAP. PT ASKS SOME QUESTIONS ABOUT BIPAP AND IV PUMP THEN BACK TO SLEEP.
--- NOTE | 2020-05-20 04:29 | NUR ---
RT IN TO DO VIKTORIYA LEÓN.
--- NOTE | 2020-05-20 05:22 | NUR ---
UP TO BSC AND BACK TO BED, WANTING TO KEEP BIPAP OFF FOR NOW. ASKING FOR BREAKFAST. SPO2 95% ON 2L/NC.
--- NOTE | 2020-05-20 05:39 | NUR ---
LAB IN TO DRAW
--- NOTE | 2020-05-20 06:47 | NUR ---
PT AWAKE IN BED, ON 2L/NC WITH SPO2 100%, RR 12. ASKING ABOUT BREAKFAST AND CALLING HER ROOMATES.
--- NOTE | 2020-05-20 07:30 | NUR ---
REPORT RECIEVED. PATIENT IS IN BED, DENIES SHORTNESS OF BREATH, STATES SHE FEELS BETTER TODAY. TALKED WITH PATIENT ABOUT POC FOR DAY, THIS WILL BHARTI TO BE REINFORCED. IVF PATENT.
[2020-05-20] MEDS ORDERED: SUBOXONE 8 MG-1 EAC1 SL (08:53)
--- NOTE | 2020-05-20 09:00 | NUR ---
IVF DC'D PER ORDERS. PATIENT TALKATIVE AND IN GOOD SPIRITS. TOOK BREAKFAST WELL. DENIES SHORTNESS OF BREATH.
--- NOTE | 2020-05-20 09:20 | NUR ---
v/s and I&Os done. breakfast given no other needs at thsi time.
[2020-05-20] MEDS ORDERED: CLONIDINE HCL0.3 MG PO (09:30)
[2020-05-20] MEDS ORDERED: TOPIRAMATE50 MG PO (09:30)
[2020-05-20] MEDS ORDERED: ROPINIROLE HCL1 MG PO (09:31)
--- NOTE | 2020-05-20 09:31 | NUR ---
MED REC COMPLETE
--- NOTE | 2020-05-20 09:45 | NUR ---
DR. MONTOYA HERE TO SEE PATIENT. ORDERS RECIEVED TO TRANSFER TO MED-SURG.
--- NOTE | 2020-05-20 11:14 | NUR ---
UP TO BR TO VOID, IS STABLE ON FEET. BACK TO BED W/O INCIDENT. O2 SAT ON RA 88, O2 REAPPLIED.
--- NOTE | 2020-05-20 11:30 | NUR ---
UP TO CHAIR FOR LUNCH.
--- NOTE | 2020-05-20 11:40 | NUR ---
TO MED-SURG VIA CHAIR. REPORT GIVEN.
--- NOTE | 2020-05-20 12:22 | NUR ---
UPDATED THE PATIENTS CONTACT LIST WITH HER AND DAUGHTERS PHONE NUMBER. SHE WANTED ME TO CALL THE [facility] TO LET THEM KNOW SHE WOULD BE DISCHARGED EITHER TOMORROW OR THE NEXT DAY. SHE KNEW THEY WOULD BE WORRIED ABOUT HER WEARABOUTS. [place] PHONE NUMBER IS [phone]. I TALKED TO TK AND SHE WAS PLEASED TO HEAR, TRANSFERRED THE PHONE TO PATIENT.
--- NOTE | 2020-05-20 12:40 | NUR ---
this rn in pts room to give pt scheduled meds. pt sitting up in chair and had multiple questions about meds, this rn educated pt to the best of her ability.
--- NOTE | 2020-05-20 13:45 | NUR ---
shea rn in pts room to transfer pt sba to the restroom. pt had a medium bowel movement and was steady on her feet and got back to bed. pt did desat to 88% on 2l, after some good deep breaths pt able to regain herself to 92% on 2l. pt stated that she is ready to get a nap at this time and states that she needs nothing further
--- NOTE | 2020-05-20 14:00 | NUR ---
Spoke with Sylvie and she states she currently lives at [facility] for the last 3 years which is a community house following rehab. Pt states she has a nebulizer and inhalers in the home. She is disable and on SSI since this month and is awaiting her first SSI check. Celestine Watters is her pcp, she does not use the food bank and has food stamps She has a car a drives self to appts. Denies needs at this time. I will follow up with her as I completed assessment when she had first moved from CCU to the floor and she was distracted somewhat.
--- NOTE | 2020-05-20 18:27 | NUR ---
this rn in to check on pt. pt appears to be resting at this time. this rn was in pts room at 1630 to give pt her evening meds. pain 07/14 this rn also braided pts hair to get it out of her face
--- NOTE | 2020-05-20 19:37 | NUR ---
BEDSIDE REPORT RECEIVED FROM JUAN MCFADDEN. pt RESTING IN BED ON RIGHT SIDE. 2L OXYGEN BY NC IN PLACE. BREATHING EQUAL AND UNLABORED, EYES CLOSED.
--- NOTE | 2020-05-20 21:44 | NUR ---
pt SLEEPING, AWAKENS YELLING "I DON'T WANT TO ". REORIENTS EASILY. SPO2 WNL ON 2L OXYGEN BY NC, DESATS TO 88% WITH AMBULATION TO RESTROOM AND BACK TO BED WITH 2L OXYGEN BY NC IN PLACE. LUNG SOUNDS CLEAR WITH OCCASIONAL EXPIRATORY WHEEZE AUSCULTATED. IV SL. SCHEDULED MEDICATIONS ADMINISTERED, pt RATES PAIN 4/10 IN LOWER BACK. ICE WATER AND PEPSI PROVIDED REQUESTED. CALL LIGHT IN REACH. NO ADDITIONAL REQUESTS LIGHTS OFF IN ROOM. pt REFUSES TO WEAR CPAP AT THIS TIME, "I FEEL TRAPPED WITH THAT MASK ON".
--- NOTE | 2020-05-21 00:20 | NUR ---
CHECKED ON pt. RESTING IN BED WITH EYES CLOSED. SPO2 94%, HR [address] 2L OXYGEN BY NC ON.
--- NOTE | 2020-05-21 01:50 | NUR ---
CALL LIGHT ANSWERED. pt QUESTIONING NEXT AVAILABLE PAIN MEDICATION. RATES PAIN 7/10 IN BACK. PRN AND SCHEDULED PAIN MEDICATION ADMINISTERED. ASSESSMENT COMPLETE. SBA TO RESTROOM FOR VOID AND BACK TO BED. pt STATES "IT FEELS TIGHT" DENIES NEED FOR PRN BRETHING TREATMENT, SPO2 91% AFTER RETURNING TO BED FROM RESTROOM WITH 2L OXYGEN BY NC IN PLACE. SPORADIC WHEEZES HEARD THROUGHOUT LUNG LOBES AT THIS TIME. CALL LIGHT IN REACH. NO ADDITIONAL REQUESTS.
--- NOTE | 2020-05-21 03:39 | NUR ---
PATIENT CALLED FOR A COOL WASH CLOTH AND A SNACK. BOTH PROVIDED. DENIES ANY FUTHER NEEDS AT THIS TIME. NOTED THAT PATIENT WAS SLIGHLY SWEATY AND SEEMED WORKED UP. RN NOTIFIED.
--- NOTE | 2020-05-21 04:33 | NUR ---
IN pt ROOM FOR SCHEDULED MEDICATION ADMINISTRATION. pt RESTING IN BED, AWAKENS TO VOICE. IV SITE FLUSHED WNL, SL. VSS. 2L OXYGEN BY NC IN PLACE, SPO2 WNL. CALL LIGHT IN REACH. pt DENIES TOILETING OR ADDITIONAL NEEDS AT THIS TIME.
--- NOTE | 2020-05-21 05:04 | NUR ---
patient called and requested a cup of ice. warm wash rag and new pepsi provided. denies any futher needs at this time.
--- NOTE | 2020-05-21 07:22 | NUR ---
REPORT RECIEVED FROM FERMENTATION ENGINEER RNPRESTON.
--- NOTE | 2020-05-21 07:33 | NUR ---
MORNING ASSESSMENT DONE. 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 PATIENT HAS AUDIBLE EXPIRATORY WHEEZES, IS SOMEWHAT ANXIOUS TO GO HOME. O2 TITRATED TO 1L THIS MORNING AND SATS ARE 91-91% AT REST.
--- NOTE | 2020-05-21 10:03 | NUR ---
PATIENT IS MAINTAINING 92% SATS ON 1L OF OXYGEN. PATIENT IS VERY UPSET THAT SHE NEEDS TO GO HOME TODAY, SHE WAS SUPPOSED TO SIGN FOR A LOAN WITH THE [employer] YESTERDAY, TO ENABLE HER TO PAY HER RENT. PLAN TO TALK WITH D/C OVERAGE SHORTAGE AND DAMAGE CLERK.
--- NOTE | 2020-05-21 10:58 | NUR ---
PATIENT VERY AGITATED ABOUT HOME SITUATION, DESPITE D/C SYSTEMS ADMIN IN TO SEE HER AND MAKE CALLS. PATIENT INDICATED THAT SHE WAS LEAVING AMA, DR. MONTOYA NOTIFIED AND IN TO SEE PATIENT. PATIENT HAS AGREED TO STAY UNTIL THIS EVENING.
--- NOTE | 2020-05-21 12:13 | NUR ---
PATIENT SITTING UP TO EAT LUNCH. PATIENT VISITING ON THE PHONE, ENDORSED THAT SHE WOULD STAY UNTIL TOMORROW.
--- NOTE | 2020-05-21 14:00 | NUR ---
PATIENT IS RESTING IN BED. FRESH WATER OFFERED. VITALS AND I&OS ARE DONE AND DOCUMENTED. CALL LIGHT IS IN REACH. NO FURHTER NEEDS AT THIS TIME.
--- NOTE | 2020-05-21 14:18 | NUR ---
Attempted to call [employer] again and was able to reach Denys. Updated Sylvie cannot pay today. He states this is ok as he is on his way to [place] and will not be back until Tuesday. He ask I tell her she will not lose her storage or content and asks she call him on Tuesday. Pt updated and relieved and states she has agreed to stay until Tuesday. She was also able to contact the [email or web address] and they will hold her loan to pay current bills until Tuesday.
--- NOTE | 2020-05-21 14:55 | NUR ---
PATIENT IS SLEEPING, HAS BEEN ON ROOM AIR FOR APPROXIMATELY 1 HOUR AND SATS ARE 88-89%. PATIENT RESUMED ON 1L OF OXYGEN FOR 93%.
--- NOTE | 2020-05-21 17:06 | NUR ---
PATIENT WOKE UP TO TAKE AFTERNOON MEDICATIONS, DENIES NEEDS AT THIS TIME. PULSE OX CORD CHANGED.
--- NOTE | 2020-05-21 17:58 | NUR ---
PATIENT IS LAYING IN BED RESTING. FRESH WATER OFFERED. VITALS AND I&OS ARE DONE AND DOCUMENTED. CALL LIGHT IS IN REACH. NO FURTHER NEEDS AT THIS TIME.
--- NOTE | 2020-05-21 18:09 | NUR ---
PATIENT CONTINUES ON ONE LITER O2 AT 92-93%, AND WILL HOPEFULLY TITRATE OFF BY THE MORNING, SHE ENDORSES THAT SHE IS LEAVING TOMORROW.
--- NOTE | 2020-05-21 19:30 | NUR ---
PATIENT TRIALED OF O2 AND ON RA PATIENT IS 87%, 1L/NC PLACED BACK ON PATIENT AND HR=90 AND O2 SATS=92%. PATIENT LAYING ON HER RIGHT SIDE, WATER GLASS FULL, CALL LIGHT IN REACH.
--- NOTE | 2020-05-21 19:45 | NUR ---
CALL LIGHT ANSWERED. CHANGED DRAW SHEET SOILED WITH BOWEL MOVEMENT. PLACED WHITE CHUCKS. EMPTIED HAT. CPOX BACK ON.
--- NOTE | 2020-05-21 22:26 | NUR ---
CAROLE WAS SNORING WHEN I CAME IN THE ROOM. PATIENT WAS A LITTLE STARTLED WHEN I SAID HER NAME AND ASKED,"IS IT TIME TO GO." INFORMED PATIENT IT WAS ABOUT 10:30PM AND THAT THEY WOULD LOOK AT DISCHARGE SOME TIME IN THE MORNING. PATIENT VERBALIZED UNDERSTANDING. PATIENT'S ICE WATER WAS REFILLED. VS ARE STABLE. PATIENT TOOK HER PM MEDS WITHOUT DIFFICULTY AND REALLY WANTS TO JUST SLEEP. SATS ARE 92% ON 1L/NC. PATIENT HAS NO OTHER NEEDS AT THIS TIME ND CALL LIGHT IS IN REACH.
--- NOTE | 2020-05-21 23:43 | NUR ---
ANSWERED CALL LIGHT. SBA. PATIENT IS BACK SITTING BY THE BED DRINKING SODA. ICE CHIPS PROVIDED. NO OTHER NEEDS AT THIS TIME.
--- NOTE | 2020-05-22 01:01 | NUR ---
PATIENT RESTING QUIETLY ON HER RIGHT SIDE, EYES CLOSED, RESPIRATIONS REGULAR AND EVEN, SATS ARE 91% ON 1L/NC WITH A HR=89. PATIENT'S CALL LIGHT IS IN REACH. NO IDENTIFIED NEEDS AT THIS TIME.
--- NOTE | 2020-05-22 03:15 | NUR ---
ANSWERED CALL LIGHT. SBA TO BATHROOM. ICE CHIPS PROVIDED. PATIENT IS BACK IN BED. NO OTHER NEEDS AT THIS TIME.
--- NOTE | 2020-05-22 05:40 | NUR ---
PATIENT HAS BEEN SLEEPING MOST OF THE NIGHT UNLESS SHE IS UP TO THE BATHROOM. PATIENT REMAINS ON 1L/NC AT THIS TIME AND HAS DONE FINE ON THAT UNTIL NOW, BUT SHE HAS INSPIRATORY+EXPIRATORY WHEEZES AND SATS ARE DROPPING TO 88%. CALL RT TO COME AND GIVE THE PATIENT A TREATMENT. PATIENT HAS BEEN VOIDING WELL ALL NIGHT. PATIENT ASKS IF IT IS TIME TO GO HOME EVERYTIME YOU GO IN THE ROOM. A TRIAL ON ROOM AIR WAS DONE AT THE BEGINING OF THE SHIFT AND PATIENT WAS SATING AT 87%. PATIENT HAS NO OTHER NEEDS AT THIS TIME, OTHER VS HAVE BEEN WNL, CALL LIGHT IS IN REACH.
--- NOTE | 2020-05-22 05:48 | NUR ---
PATIENT HAS SLEPT WELL MOST OF THE NIGHT. PATIENT HAS WHEEZES IN ALL LUNG DEL TORO AND REMAINS ON 1L/NC WITH SATS OF 91-92%. PATIENT HAS TAKEN HER PILLS W/O DIFFICULTY, PATIENT'S OTHER VS HAVE BEEN STABLE. IV FLUSHES WELL. PATIENT VERY ANXIOS TO GO HOME TODAY. CALL LIGHT IN REACH.
--- NOTE | 2020-05-22 07:15 | NUR ---
Report received, orders acknowledged. Patient sleeping in bed with 2LNC in place, SpO2 of 88-90%. Call light within reach.
--- NOTE | 2020-05-22 09:30 | NUR ---
Patient laying in bed watching tv. Vital signs taken, assessment complete. Patient up to chair independently. 2LNC in place, SpO2 ranging from 87-89%. Oxygen titrated to 4LNC, SpO2 improves to 91%. Lung sound diminished throughout all lobes with wheezing heard. Patient uses acapella, dry cough noted. Patient states "I'm going home today, I'm definitely leaving." Patient educated on importance of staying in hospital due to need for supplemental oxygen, IV abx, elevated WBCs, and pending blood cultures. Patient agreeable to stay at this time. Water refreshed, chapstick provided. Patient denies further needs, call light within reach.
--- NOTE | 2020-05-22 10:50 | NUR ---
Pt up in chair, stating she is ready to go home. Informed Dr. Shaffer is making rounds and will be in to see her. Pt asking when she can leave and updated she will have to discuss with the Dr. Pt stating she is feeling much better today.
--- NOTE | 2020-05-22 11:51 | NUR ---
Patient sitting up in chair watching tv. 4LNC in place, SpO2 ranging from 92-94%. Patient finished with shower, new gown provided. Scheduled pain medication given. Denies further needs, call light within reach.
--- NOTE | 2020-05-22 12:47 | NUR ---
PATIENT SHOWERED, THIS PANTS PRESSER STOOD BY.
--- NOTE | 2020-05-22 15:30 | NUR ---
Patient sitting at edge of bed with 4LNC in place, SpO2 in the low 90's. Patient uses acapella. Water refreshed, patient denies further needs. Call light within reach.
--- NOTE | 2020-05-22 16:48 | NUR ---
Patient sitting up at edge of bed. Scheduled pain medication given sublingually. Assessment complete. Lung sounds dim and tight, inspiratory and expiratory wheezes auscultated throughout lobes. Water refreshed, patient denies further needs. Call light within reach.
--- NOTE | 2020-05-22 19:15 | NUR ---
SHIFT REPORT RECEIVED FROM KAMILAH FELDER AT BEDSIDE. pt AWAKE AND RESTING IN BED, NO DISTRESS NOTED. FRESH ICE GIVEN PER pt REQUEST, 4LNC IN PLACE. CALL LIGHT IN REACH NAD BOARD UPDATED.
--- NOTE | 2020-05-22 22:15 | NUR ---
ASSESSMENT COMPLETE, VSS. pt ON 4LNC, ONE NASAL CANULA OUT OF NARE. PER SHIFT REPORT pt IS AT TIMES NONCOMPLIANT REGARDING NC OR WEARING IT CORRECTLY. EDUCATION DISCUSSED REGARDING IMPORTANCE TO WEAR O2 THERAPY CORRETLY FOR ACCURATE READINGS, pt VERBALIZED UNDERSTANDING. SCATTERED WHEEZING NOTED, BUT NO DISTRESS AT THIS TIME. CPOX REMAINS IN PLACE, WILL MONITOR. CALL LIGHT IN REACH.
--- NOTE | 2020-05-22 22:15 | NUR ---
IN TO GET VITALS
--- NOTE | 2020-05-22 23:30 | NUR ---
INFORMED BY RT ARMSTRONG, TEST TO QUALIFY FOR HOME 02 COMPLETE.
--- NOTE | 2020-05-23 01:16 | NUR ---
pt RESTING IN BED, EYES CLOSED. RR EVEN AND UNLABORED. NO DISTRESS NOTED. CPOX IN PLACE WITH 4LNC, HR WNL. CALL LIGHT IN REACH.
--- NOTE | 2020-05-23 03:05 | NUR ---
IN ROOM TO GIVE SCHEDULED PAIN MEDICATION, SEE EMAR. pt REPORTS 5/10 PAIN. ASSESSMENT COMPLETE, NO NEW CHANGES OR CONCERNS. CPOX REMAINS IN PLACE, 4LNC IN PLACE, O2 SAT LOW 90'S, HR WNL. CALL LIGHT IN REACH.
--- NOTE | 2020-05-23 05:17 | NUR ---
CALL LIGHT ANSWERED, pt UP TO VOID AND BACK TO BED. WHILE AMBULATING pt BEGAN HAVING COUGHING SPELL, PER CPOX O2 SAT UPPER 70'S/LOW 80'S. UNSURE OF ACCURACY pt WAS COUGHING. pt BACK TO BED, O2 INCREASED TO 6LNC AND pt INSTRUCTED TO BREATHE IN THROUGH NOSE AND OUT THROUGH MOUTH, pt DEMONSTRATED. O2 TITRATED TO 5LNC, O2 SAT MAINTIANING IN LOW 90'S. WILL MONITOR. LOAN EXAMINER BARTOLO COLLECTING VS. CALL LIGHT IN REACH.
--- NOTE | 2020-05-23 05:20 | NUR ---
IN TO GET VITALS
--- NOTE | 2020-05-23 07:30 | NUR ---
SHIFT REPORT FROM CJ MARTINEZ INCLUDED: pt is not on oxygen therapy chronically but has been needing about 5-6L NC to maintain sats >90% throughout the stay here. pt was qualified for home o2 and is anticipating DC today with oxygen therapy to become her new baseline. pt denies nausea at this time and reports 5/10 pain, Cj MARTINEZ to get her her shceduled pain medication at this time. table and call light within reach, o2sat currently 94% on 5L NC.
--- NOTE | 2020-05-23 07:37 | NUR ---
dr nelson made aware of home qualifer results and pt's need for 5lnc at this time. no new orders.
--- NOTE | 2020-05-23 08:00 | NUR ---
Called and spoke with Corina from [facility]. Updated pt is anxious to leave, but is in need of O2. She requests I send paperwork now and she will start auth for [employer]. I will send Rx when is able to sign. Face sheet, 02 qualifier, progress notes faxed to her direct [phone].
--- NOTE | 2020-05-23 09:00 | NUR ---
DISCUSSED RESPIRATORY NEEDS AND SAFETY FOR HOME CARE + SMOKING CESSATION discussed oxygenation needs with pt at this time. encouraged pt using therapeutic communication. educated pt on the dangers of oxygen use and smoking, and increased dangers due to fires. pt verbalized understanding. All questions answered. pt says she understands and plans to stop smoking entirely.
[2020-05-23] MEDS ORDERED: PREDNISONE20 MG PO (09:13)
[2020-05-23] MEDS ORDERED: AMOXICILLIN500 MG PO (09:14)
--- NOTE | 2020-05-23 09:28 | NUR ---
DISCUSSED WITH PATIENT THE DANGER OF SMOKING AND PATIENT INDICATED, "I'M WORRIED ABOUT MY LIFE, I'M NOT GOING TO SMOKE ANYMORE!" ALSO DISCUSSED WITH PATIENT THE DANGERS OF SMOKING WHILE WEARING OXYGEN AND PATIENT, REINFORCED, " I KNOW, I DON'T WANT TO BURN MYSELF."
--- NOTE | 2020-05-23 10:15 | NUR ---
NEW MED PASS pt able to take med without difficulty, as ordered. table and call light within reach. pt anticipating DC and anxious to leave. pt reassured with therapeutic comminication. pt asked how she feels about going home with oxygen, pt states "yeah. I told you, I'm fine with it. it sucks, but I get it". When I tried to discuss it with her further, her agitation grew and her tone became angry. I explained to pt if she notices herself becoming tired, dizzy, disoriented or starts to become SOB, that her oxygen may be getting low and she will need to check it, breathe deeply, and ensure she is getting the correct amount of o2 through her cannula. pt is tired of talking about cares, but states she understands. pt in bed, table and call light within reach.
--- NOTE | 2020-05-23 11:00 | NUR ---
DC PREP + VITALS + MED PASS pt able to take her schedule med as ordered, without difficulty. pt VSS, and her IV DCd at this time, catheter intact, no excess bleeding noted. pt denies nausea and SOB, and reports 4/10 pain. pt dressed in own clothes and ready for DC at this time. Carline from case management came by to announce oxygen tanks should arrive for pt within the next hour. pt in bed, o2sat 92% on RA at this time, table and call light within reach.
== END 2020-05-23 12:00 | disposition home or self-care (01) | DRG 871 ==
LOC: ED 09:36 → MS 13:08 → CCU 13:08 → MS 05-20 11:40
PROVIDERS: ADMIT Student in an Organized Health Care Education/Training Program; ATTEND Student in an Organized Health Care Education/Training Program
PROC: 5A09357 Assistance with Respiratory Ventilation, Less than 24 Consecutive Hours, Continuous Positive Airway Pressure (ICD-10-PCS; principal; 2020-05-19)
DX: A41.89 Other specified sepsis (principal); J18.9 Pneumonia, unspecified organism; J96.01 Acute respiratory failure with hypoxia; J96.02 Acute respiratory failure with hypercapnia; G93.41 Metabolic encephalopathy; B37.1 Pulmonary candidiasis; F11.20 Opioid dependence, uncomplicated; Z68.43 Body mass index [BMI] 50.0-59.9, adult; J45.901 Unspecified asthma with (acute) exacerbation; Z20.822 Contact with and (suspected) exposure to COVID-19; I10 Essential (primary) hypertension; F41.9 Anxiety disorder, unspecified; F32.9 Major depressive disorder, single episode, unspecified; G47.33 Obstructive sleep apnea (adult) (pediatric); E66.01 Morbid (severe) obesity due to excess calories; F17.210 Nicotine dependence, cigarettes, uncomplicated; Z79.899 Other long term (current) drug therapy
CPT/HCPCS: 36415; 36600; 71045; 80048; 80053; 82803; 83605; 83735; 83880; 85025; 87040; 87070; 87077; 87186; 87205; 87502; 94640; 94660; 94668; 94761; 94762; 96365; 96367; 96375; 99285-25; C9803; J0456; J0696; J1650; J2930; J7060; J7121; J7512; U0003

== ENCOUNTER 2021-04-30 10:47 | Observation (INO) | payer OTHER ==
[~2021-04-30] VITALS: Ht 152.4 cm; Wt 122.4 kg
[~2021-04-30 10:47] MED LIST changes: +AMOXICILLIN500 MG PO; +CLONIDINE HCL0.3 MG PO; +PREDNISONE20 MG PO; +ROPINIROLE HCL1 MG PO; +SUBOXONE 8 MG-1 EAC1 SL; +TOPIRAMATE50 MG PO
[2021-04-30] MEDS ORDERED: LATUDA40 MG PO (17:46)
[2021-04-30] MEDS ORDERED: CITALOPRAM HBR20 MG PO (17:47)
[2021-04-30] MEDS ORDERED: CHLORPROMAZINE50 MG PO (17:47)
[2021-04-30] MEDS ORDERED: BUSPIRONE HCL15 MG PO (17:47)
[2021-04-30] MEDS ORDERED: GUANFACINE HCL1 MG PO (17:49)
--- NOTE | 2021-04-30 18:35 | NUR ---
[facility] pt awake and alert, on 3L nc, expiratory wheezing noted , RT called to request breathing treatment, iv assessed infiltrated removed, dinner provided for pt able to sit up and eat , denies any other needs at the moment
--- NOTE | 2021-04-30 21:37 | NUR ---
awakes easily, up to bsc, voidied large amounts of dark urine. SOB with exertion noted. Back tobed, 1PA. O2 3LNC, chronic, unknown amount at home. "you just turned on and it started working, its broken, and Sierra was supposed to come in today after I got home from the ER with a new prescription". Lungs with insp/exp wheezing and dim t/o. hands trace edema, very obese, abd soft, catrachito. stated LBM 04/22, "I only have a bm 1-2x a week" "no, Cuate not constipated". SL patent. turns and repositions self in bed, tolerating fluids well. call light at bedside. took meds w/o problems
--- NOTE | 2021-05-01 00:09 | NUR ---
On 3LNC O2, no distress, laying on her R side. eyes closed, no distress, fluidsa nd call light at hands reach.
--- NOTE | 2021-05-01 02:19 | NUR ---
awakes easily, on 3lnc O2. lungs much improved, dim , fine crackles no wheezing auscultated at this time. coop with assessment. fluids and call light at bedside, laying onher R side.
--- NOTE | 2021-05-01 04:10 | NUR ---
Pt on 3LNC, sats WNL, lungs with inst/exp wheezing and sob with exertion on admit. dim w fine crackles now and still sob eith exertion present. cooperative, alert and oriented. turns and repositions self in bed. IV SL patent. tolerating liquids well. voided QS to BSC 1PA
--- NOTE | 2021-05-01 05:43 | NUR ---
Patient is in bed. Patient has call light in reach. BP was 110/59. Map was 70. Pulse was 84.
--- NOTE | 2021-05-01 07:01 | NUR ---
Pt was resting very deeply, snoring loudly, O2 in place 3LNC. burpion scheduled given. 11/14 generalized pain stated, went back to sleep . turns and repositions self in bed
--- NOTE | 2021-05-01 07:15 | NUR ---
report recieved from night patrol inspector RN, pt sleping in bed, on 3L NC, call light within reach, RR even and nonlabored no needs at the moment
--- NOTE | 2021-05-01 09:23 | NUR ---
rn in room to do assessment pt on 2l nc, titrated to 1L nc tolerating well
--- NOTE | 2021-05-01 11:15 | NUR ---
VERBAL ORDER RECIEVED FROM DR MONTOYA TO QUALIFY PT FOR HOME OT. ORDER PLACED AND RT CALLED.
[2021-05-01] MEDS ORDERED: DOXYCYCLINE HY100 MG PO (11:42)
[2021-05-01] MEDS ORDERED: IPRAT-ALBUT 0.5-3 ML INH (11:43)
[2021-05-01] MEDS ORDERED: PREDNISONE20 MG PO (11:44)
--- NOTE | 2021-05-01 11:47 | NUR ---
INTO ROOM TO SPEAK WITH PATIENT REGARDING O2 QUALIFIER PRIOR TO DISCHARGE. PATIENT STATES SHE CURRENTLY HAS O2 AT HOME, BUT COULD NOT REMEMBER THE SUPPLIER. ADVISE PATIENT THAT I WILL FIND OUT WHO SHE USES AND MAKE SURE SHE IS READY FOR DISCHARGE. CONTACTED [facility], PATIENT CURRENTLY HAS SERVICES WITH THEM FOR [address] MONTOYA AND STAFF UPDATED. WILL SEND CHART NOTE AND O2 QUALIFIER [facility] WHEN AVAILABLE.
--- NOTE | 2021-05-01 12:07 | NUR ---
INTO ROOM TO UPDATE PATIENT ON O2. PATIENT STATES SHE IS CURRENTLY RESIDING IN [facility], A CLEAN AND SOBER FACILITY. PATIENT STATES SHE HAS BEEN LIVING THERE FOR THE PAST 3 YEARS. NO CONCERNS FOR DISCHARGE AT THIS TIME. ADVISED PATIENT TO CONTACT CASE MANAGEMENT IF ANYTHING IS NEEDED FOR DISCHARGE.
--- NOTE | 2021-05-01 13:00 | NUR ---
rn in room to go over discharge instructions, educated on the importance of using oxygen per orders 2L NC during activty pt educated on how to use oxygen tank, educated on importance of finishing oral abx, flu shot administered and information sheet provided denies any questions
== END 2021-05-01 13:14 | disposition home or self-care (01) ==
LOC: ED 10:47 → MS 10:49
PROVIDERS: ADMIT Student in an Organized Health Care Education/Training Program; ATTEND Student in an Organized Health Care Education/Training Program
DX: J96.21 Acute and chronic respiratory failure with hypoxia (principal); J45.901 Unspecified asthma with (acute) exacerbation; J18.9 Pneumonia, unspecified organism; F11.20 Opioid dependence, uncomplicated; G25.81 Restless legs syndrome; F17.210 Nicotine dependence, cigarettes, uncomplicated; F99 Mental disorder, not otherwise specified; Z88.8 Allergy status to other drugs, medicaments and biological substances; Z20.822 Contact with and (suspected) exposure to COVID-19
CPT/HCPCS: 36415; 71045; 80048; 82803; 83880; 85025; 90686; 94640; 94667; 94668; 94760; 94761; 96374; 99285-25; 99406; A9270; C9803; J1650; J2930; U0003